=== PATIENT | female | born 1945 | race Caucasian/White ===

== ENCOUNTER 2023-06-28 09:29 | Inpatient (IN) ==
[2023-06-28] MEDS ORDERED: fentaNYL citrate PF 100 MCG/2 ML VIAL IV STA (09:50)
--- NOTE | 2023-06-28 09:51 | Emergency Department Note ---
Impression & Plan Chest pain, Lung cancer, Uncontrolled pain ED Provider Note HISTORY OF PRESENT ILLNESS: Patient is a 78-year-old female presenting with chest pain. Patient reports she has had substernal chest discomfort since yesterday. Reports pain is intermittent in nature. Pain radiates into her left chest and into her left shoulder and down her left arm. Patient reports feeling short of breath. She took 200 mg of ibuprofen about 30 minutes prior to arrival, with minimal relief in symptoms. Denies any history of cardiac stents. She is on Eliquis daily. Reports a history of blood clots and lung cancer. Denies any recent cough or fevers. She is currently on chemotherapy for her lung cancer. ROS: as above PHYSICAL EXAM: Constitutional: Patient appears in no acute distress. HENT: Head: Normocephalic and atraumatic. Eyes: EOMI, PERRL Mouth/Throat: Mucous membranes moist. Neck: Trachea midline. Neck supple. Cardiovascular: RRR, No murmurs, rubs or gallops. Intact distal pulses. Pulmonary/Chest: No respiratory distress. Breath sounds clear and equal bilaterally. No wheezes or rales. Abdominal: Abdomen soft, no tenderness, rebound or guarding. Musculoskeletal: No edema, tenderness or deformity noted. Skin: Warm and dry. No rash, erythema, pallor or cyanosis Psychiatric: Appropriate mood and affect for situation. Neurological: Alert and keenly responsive. CN II-XII grossly intact, moving all extremities equally and fully. MDM: - Vitals signs stable. - History obtained via patient. Patient presents with chest wall pain. Patient reports she has had substernal and left-sided chest discomfort since yesterday. Pain is intermittent in nature. Pain radiates into her left shoulder and down her left arm. Reports feeling short of breath. She took ibuprofen prior to arrival. Denies any history of cardiac stents. She has a history of PEs and is on Eliquis. Denies any recent fevers. She is currently on chemotherapy for her lung cancer. - Chronic conditions affecting care: Pulmonary embolism (on eliquis); atrial fibrillation; non-small cell lung cancer - Differential diagnoses include, but are not limited to: Acute coronary syndrome; pulmonary embolism; dissection; tension pneumothorax; esophageal rupture; pneumonia - Order placed for continuous cardiac monitoring. At this time, monitor showed rate of 72 bpm with normal sinus rhythm, per my interpretation. - External medical records reviewed. Notes from patient's hematology office visit from 06/21/2023 was reviewed - EKG reviewed by myself showed normal sinus rhythm. Rate 95 bpm. QTc 419. No acute ischemic changes. - Laboratory workup interpreted by myself showed normal WBC; normal troponin; h yponatremia (Na 128 - chronic for patient); normal lipase - Repeat troponin WNL - CXR shows left apical mass versus pneumonia, per my interpretation. Radiology notes that it could be pneumonia or could be a masslike lesion. Recommended CT scan - Patient given 50 mcg IV fentanyl in ER. On reassessment, she is still having left chest pain. Given an additional 50 mcg IV fentanyl - CTA chest 7.4 x 4.6 cm enhancing irregular left apical pulmonary mass consistent with pulmonary lung malignancy with chest wall extension and bony erosion of posterior left second rib. - Discussed case with oncologist on-call, Dr. Oconnell. He stated the patient could be sent home with oral pain control if her pain could get under control in the ER and they could discuss radiation therapy as an outpatient. However, on reassessment the patient is still complaining of left-sided chest wall pain. On discussion with the patient and her daughter, they would feel more comfortable with admission to the hospital overnight for further pain management and discussion with hematology/oncology in the morning. - UA negative for infection - Discussion was had with certified social workers in health care about patient's case and need for admission. - Hospitalist consulted for admission - Patient admitted to [facility] Hospitalist service for further evaluation and management. ASSESSMENT AND PLAN: Diagnosis: Left chest wall pain; lung cancer; uncontrolled pain Plan: admit Past Med/Surg History Social History Smoking Status: Former smoker Feels Safe at Home: Yes Allergies Allergies Allergy/AdvReac Type Severity Reaction Status Date / Time No Known Allergies Allergy Verified 06/28/23 16:24 Home Meds Home Medications Medication Instructions Recorded Confirmed apixaban 5 mg tablet (Eliquis) 5 mg PO BID 06/28/23 06/28/23 cholecalciferol (vitamin D3) 25 0 mcg PO DAILY 06/28/23 06/28/23 mcg (1,000 unit) capsule (Vitamin D3) cyanocobalamin (vitamin B-12) 0 mcg PO DAILY 06/28/23 06/28/23 1,000 mcg tablet (Vitamin B-12) famotidine 20 mg tablet 20 mg PO BID PRN Gi Upset 06/28/23 06/28/23 ibuprofen 200 mg tablet 200 mg PO DIRECTED PRN Pain 06/28/23 06/28/23 prednisone 10 mg tablet 10 mg PO DAILY 06/28/23 06/28/23 sotorasib 120 mg tablet (Lumakras) 480 mg PO QAM 06/28/23 06/28/23 Results & Data (ED) Vital Signs Vital Signs - 24 hr 06/28/23 09:32 06/28/23 10:24 06/28/23 10:30 Temperature 36.2 C L Temperature Source Temporal Artery Scan Pulse Rate 99 H 77 74 Pulse Rate [Apical] Pulse Rhythm [Apical] Respiratory Rate 20 19 Respiratory Effort / Characteristics Non-Labored Respiratory Depth Normal Blood Pressure 131/76 117/69 Blood Pressure [Right Arm] Blood Pressure Mean 94 85 Blood Pressure Mean [Right Arm] Pulse Oximetry 100 98 Oxygen Delivery Method Room Air Room Air Sepsis Recent Fever Within 48 Hours No Sepsis New/Unexplained Change in Mental Status N/A Sepsis Action Taken by Nursing No Action Required 06/28/23 12:53 06/28/23 13:00 06/28/23 13:00 Temperature Temperature Source Pulse Rate 73 Pulse Rate [Apical] 72 Pulse Rhythm [Apical] Regular Respiratory Rate 16 17 Respiratory Effort / Characteristics Non-Labored Respiratory Depth Normal Blood Pressure 118/69 Blood Pressure [Right Arm] 134/70 Blood Pressure Mean 80 Blood Pressure Mean [Right Arm] 91 Pulse Oximetry 99 99 Oxygen Delivery Method Room Air Sepsis Recent Fever Within 48 Hours Sepsis New/Unexplained Change in Mental Status Sepsis Action Taken by Nursing 06/28/23 13:30 06/28/23 13:30 06/28/23 14:28 Temperature Temperature Source Pulse Rate 72 72 Pulse Rate [Apical] Pulse Rhythm [Apical] Respiratory Rate 18 Respiratory Effort / Characteristics Respiratory Depth Blood Pressure 129/69 Blood Pressure [Right Arm] Blood Pressure Mean 103 Blood Pressure Mean [Right Arm] Pulse Oximetry 98 Oxygen Delivery Method Room Air Sepsis Recent Fever Within 48 Hours Sepsis New/Unexplained Change in Mental Status Sepsis Action Taken by Nursing 06/28/23 16:08 Temperature Temperature Source Pulse Rate Pulse Rate [Apical] 83 Pulse Rhythm [Apical] Regular Respiratory Rate 16 Respiratory Effort / Characteristics Non-Labored Respiratory Depth Normal Blood Pressure Blood Pressure [Right Arm] 124/72 Blood Pressure Mean Blood Pressure Mean [Right Arm] 89 Pulse Oximetry 99 Oxygen Delivery Method Room Air Sepsis Recent Fever Within 48 Hours Sepsis New/Unexplained Change in Mental Status Sepsis Action Taken by Nursing Laboratory Data 06/28/23 10:02 06/28/23 10:02 Lab Results 06/28/23 06/28/23 06/28/23 Range/Units 10:02 10:02 12:16 WBC 10.45 (4.8-10.8) K/ul RBC 3.99 L (4.20-5.40) M/uL Hgb 10.8 L (12.0-16.0) g/dl Hct 33.3 L (37.0-47.0) % MCV 83.5 (80.0-100.0) fL MCH 27.1 (25.0-34.0) pg MCHC 32.4 (32.0-36.0) g/dL RDW Std Deviation 53.1 H (36.4-46.3) fL RDW Coeff of Rivka 17.2 H (11.5-14.5) % Plt Count 442 H (130-400) K/uL MPV 9.8 (9.4-12.4) fL Immature Gran % (Auto) 0.5 % Neut % (Auto) 72.6 % Lymph % (Auto) 11.9 % [place] % (Auto) 13.5 % Eos % (Auto) 1.2 % Baso % (Auto) 0.3 % Neut # (Auto) 7.59 H (1.40-6.50) K/uL Lymph # (Auto) 1.24 (1.20-3.40) K/uL [place] # (Auto) 1.41 H (0.11-0.59) K/uL Eos # (Auto) 0.13 (0.00-0.50) K/uL Baso # (Auto) 0.03 (0.00-0.20) K/uL Immature Gran # (Auto) 0.05 (0.01-0.20) K/uL Sodium 128 L (136-145) mmol/L Potassium 3.7 (3.5-5.1) mmol/L Chloride 94 L (98-107) mmol/L Carbon Dioxide 25 (21-32) mmol/L Anion Gap 9 (3-11) BUN 16 (6-23) mg/dl Creatinine 0.81 (0.6-1.2) mg/dl Est Cr Clr Drug Dosing 45.4 ml/min Est GFR ( Amer) 80.6 ml/min Est GFR (Non-Af Amer) 69.6 ml/min BUN/Creatinine Ratio 19.8 (10-20) Glucose 84 (70-99(Fasting)) mg/dl Calcium 9.7 (8.6-10.3) mg/dl Total Bilirubin 0.7 (0.2-1.0) mg/dl AST 13 (13-39) U/L ALT 10 (7-52) U/L Alkaline Phosphatase 120 H (34-104) U/L Troponin I High Sens 8.6 6.9 (0-14) pg/ml Total Protein 8.5 H (6.0-8.3) gm/dl Albumin 3.7 (3.4-5.0) gm/dl Globulin 4.8 H (2.5-4.0) gm/dl Albumin/Globulin Ratio 0.8 L (0.9-2) Lipase 47 (11-82) U/L Urine Color Urine Appearance (Clear) Urine pH (4.5-7.5) Ur Specific [place] (1.000-1.030) Urine Protein (Negative) Urine Glucose (UA) (Negative) Urine Ketones (Negative) Urine Blood (Negative) Urine Nitrite (Negative) Urine Bilirubin (Negative) Urine Urobilinogen (Negative) Ur Leukocyte Esterase (Negative) Urine WBC (Auto) (0-5) /hpf Urine RBC (Auto) (0-4) /hpf U Hyaline Cast (Auto) (0-5) /lpf U Epithel Cells (Auto) (0-5) /lpf Urine Bacteria (Auto) (Negative) 06/28/23 Range/Units 14:20 WBC (4.8-10.8) K/ul RBC (4.20-5.40) M/uL Hgb (12.0-16.0) g/dl Hct (37.0-47.0) % MCV (80.0-100.0) fL MCH (25.0-34.0) pg MCHC (32.0-36.0) g/dL RDW Std Deviation (36.4-46.3) fL RDW Coeff of [place]ka (11.5-14.5) % Plt Count (130-400) K/uL MPV (9.4-12.4) fL Immature Gran % (Auto) % Neut % (Auto) % Lymph % (Auto) % [place] % (Auto) % Eos % (Auto) % Baso % (Auto) % Neut # (Auto) (1.40-6.50) K/uL Lymph # (Auto) (1.20-3.40) K/uL [place] # (Auto) (0.11-0.59) K/uL Eos # (Auto) (0.00-0.50) K/uL Baso # (Auto) (0.00-0.20) K/uL Immature Gran # (Auto) (0.01-0.20) K/uL Sodium (136-145) mmol/L Potassium (3.5-5.1) mmol/L Chloride (98-107) mmol/L Carbon Dioxide (21-32) mmol/L Anion Gap (3-11) BUN (6-23) mg/dl Creatinine (0.6-1.2) mg/dl Est Cr Clr Drug Dosing ml/min Est GFR ( Amer) ml/min Est GFR (Non-Af Amer) ml/min BUN/Creatinine Ratio (10-20) Glucose (70-99(Fasting)) mg/dl Calcium (8.6-10.3) mg/dl Total Bilirubin (0.2-1.0) mg/dl AST (13-39) U/L ALT (7-52) U/L Alkaline Phosphatase (34-104) U/L Troponin I High Sens (0-14) pg/ml Total Protein (6.0-8.3) gm/dl Albumin (3.4-5.0) gm/dl Globulin (2.5-4.0) gm/dl Albumin/Globulin Ratio (0.9-2) Lipase (11-82) U/L Urine Color Yellow Urine Appearance Clear (Clear) Urine pH 6.5 (4.5-7.5) Ur Specific [place] 1.007 (1.000-1.030) Urine Protein Negative (Negative) Urine Glucose (UA) Negative (Negative) Urine Ketones Negative (Negative) Urine Blood Trace H (Negative) Urine Nitrite Negative (Negative) Urine Bilirubin Negative (Negative) Urine Urobilinogen Negative (Negative) Ur Leukocyte Esterase Negative (Negative) Urine WBC (Auto) 1-5 (0-5) /hpf Urine RBC (Auto) 0-4 (0-4) /hpf U Hyaline Cast (Auto) 0 (0-5) /lpf U Epithel Cells (Auto) 5-10 H (0-5) /lpf Urine Bacteria (Auto) Negative (Negative) Administered Medications Discontinued Medications Fentanyl Citrate (Fentanyl Citrate Pf 100 Mcg/2 Ml Vial) 50 mcg IV NOW STA Stop: 06/28/23 09:51 Last Admin: 06/28/23 10:11 Dose: 50 mcg Documented By: SAW Fentanyl Citrate (Fentanyl Citrate Pf 100 Mcg/2 Ml Vial) 50 mcg IV NOW STA Stop: 06/28/23 13:59 Last Admin: 06/28/23 15:04 Dose: 50 mcg Documented By: ELLI Ioversol (Optiray 320 100ml) 90 ml IV ONCE ONE Stop: 06/28/23 15:53 Last Admin: 06/28/23 16:00 Dose: 90 ml Documented By: CHANTEL Oxycodone HCl (Oxycodone Ir Home Pack) 1 each PO UD ONE Stop: 06/28/23 15:11 Last Admin: 06/28/23 15:28 Dose: 1 each Documented By: ELLI Imaging Data Radiologist's Impression: Chest X-Ray 06/28/23 09:50 XR chest 1V portable CLINICAL HISTORY: Chest pain, nonspecific COMPARISON STUDY: No previous studies for comparison. FINDINGS: Lung volumes are normal. There is a 6.1 x 4.7 cm left apical airspace opacity. There is no pneumothorax or pleural effusion. Cardiac size is normal. Mediastinal contours are normal. There is no evidence for pulmonary edema. IMPRESSION: 6.1 x 4.7 cm left apical airspace opacity. This favors pneumonia. However, an underlying neoplasm cannot be excluded and a CT of the chest with IV contrast is recommended for further evaluation. ACT 112: Positive. There are findings on this exam that require communication between the performing entity and the patient following Patient Test Result Information Act ([place] Act 112) guidelines. Electronically signed by: José Miguel Sanchez M.D. 06/28/2023 10:[address] 06/28/23 15:28 CT OF THE CHEST WITH IV CONTRAST CLINICAL HISTORY: Left-sided chest pain. Lung cancer. Abnormal chest radiograph. COMPARISON STUDY: Chest radiograph performed earlier today. TECHNIQUE: Following IV administration of 90 mL of Optiray, helical axial images of the chest were obtained. Sagittal and coronal reconstructions were viewed as well as maximal intensity projections on an independent 3-D workstation. Automated exposure control was utilized for the study. A dose lowering technique was utilized adhering to the principles of ALARA. CT DOSE: 257.75 mGy.cm FINDINGS: No pulmonary emboli are identified. There is no thoracic aortic dissection. There is no significant pericardial effusion. Note is made of an irregular heterogeneously enhancing 7.4 x 4.6 cm left apical mass which extends into the chest wall. There is subtle bony erosion of the posterior left second rib. Extension into the interspace between the first and second ribs is noted. There is extensive associated lower cervical and thoracic lymphadenopathy. This includes a 1.9 x 1.3 cm left supraclavicular lymph node on image 42 of 241, a 1.6 x 1.3 cm right level 4 cervical node on image 32, matted left axillary lymphadenopathy, including a 5.4 x 2 cm left axillary node, a 2.5 x 2.3 cm right paratracheal node and a 3.4 x 2.8 cm left hilar node. A trace left pleural effusion is present. There is emphysema. No consolidation is identified to suggest pneumonia. There is no pneumothorax. IMPRESSION: 1. 7.4 x 4.6 cm heterogeneously enhancing irregular left apical pulmonary mass consistent with primary lung malignancy with chest wall extension and subtle a ssociated bony erosion of the posterior left second rib. 2. Extensive lower cervical and thoracic lymphadenopathy consistent with geoff spread of disease. 3. No pulmonary emboli identified. 4. Trace left pleural effusion. ACT 112: Positive. There are findings on this exam that require communication between the performing entity and the patient following Patient Test Result Information Act ([place] Act 112) guidelines. Electronically signed by: José Miguel Sanchez M.D. 06/28/2023 4:21 PM Discharge Plan Visit Data Chief Complaint: Chest Pain Stated Complaint: ARM TO CHEST PAIN ED Provider: Araseli Escudero Discharge Problem: Chest pain, Lung cancer, Uncontrolled pain Patient Disposition: Admitted As Inpatient Forms [facility] Prescriptions: No Action prednisone 10 mg Tablet 10 mg PO DAILY Rx Instructions: PER PT "STOPPED TAKING WHEN CHEMO STOPPED, NOT SURE SHOULD CONTINUE, NEED TO CHECK WITH MD". cyanocobalamin (vitamin B-12) [Vitamin B-12] 1,000 mcg Tablet 0 mcg PO DAILY Rx Instructions: PT UNSURE OF STRENGTH famotidine 20 mg tablet 20 mg PO BID PRN (Reason: Gi Upset) ibuprofen 200 mg Tablet 200 mg PO DIRECTED PRN (Reason: Pain) cholecalciferol (vitamin D3) [Vitamin D3] 25 mcg (1,000 unit) Capsule 0 mcg PO DAILY Rx Instructions: PT UNSURE OF STRENGTH Eliquis 5 mg tablet 5 mg PO BID Lumakras 120 mg tablet 480 mg PO QAM Referrals Referrals: PCP,NO [Physician] -
--- NOTE | 2023-06-28 10:18 | XRay Report ---
XR chest 1V portable CLINICAL HISTORY: Chest pain, nonspecific COMPARISON STUDY: No previous studies for comparison. FINDINGS: Lung volumes are normal. There is a 6.1 x 4.7 cm left apical airspace opacity. There is no pneumothorax or pleural effusion. Cardiac size is normal. Mediastinal contours are normal. There is n o evidence for pulmonary edema. IMPRESSION: 6.1 x 4.7 cm left apical airspace opacity. This favors pneumonia. However, an underlying neoplasm cannot be excluded and a CT of the chest with IV contrast is recommended for further evalua tion. ACT 112: Positive. There are findings on this exam that require communication between the performing entity and the patient following Patient Test Result Information Act ([place] Act 112) guidelines. Electronically signed by: José Miguel Sanchez M.D. 06/28/2023 10:16 AM
[2023-06-28 11:11] LABS: Basophils # (auto) 0.03 K/uL (0.00-0.20); Basophils % (auto) 0.3 %; Eosinophils # (auto) 0.13 K/uL (0.00-0.50); Eosinophils % (auto) 1.2 %; Hematocrit (blood only) 33.3 % (37.0-47.0); Hemoglobin 10.8 g/dl (12.0-16.0); Immature Granulocytes # (auto) 0.05 K/uL (0.01-0.20); Immature Granulocytes % (auto) 0.5 %; Lymphocytes # (auto) 1.24 K/uL (1.20-3.40); Lymphocytes % (auto) 11.9 %; Mean Corpuscular Hemoglobin 27.1 pg (25.0-34.0); Mean Corpuscular Hgb Conc 32.4 g/dL (32.0-36.0); Mean Corpuscular Volume 83.5 fL (80.0-100.0); Mean Platelet Volume 9.8 fL (9.4-12.4); Monocytes # (auto) 1.41 K/uL (0.11-0.59); Monocytes % (auto) 13.5 %; Neutrophils # (auto) 7.59 K/uL (1.40-6.50); Neutrophils % (auto) 72.6 %; Platelet Count 442 K/uL (130-400); RDW Coefficient of Variation 17.2 % (11.5-14.5); RDW Standard Deviation 53.1 fL (36.4-46.3); Red Blood Count 3.99 M/uL (4.20-5.40); White Blood Count 10.45 K/ul (4.8-10.8)
[2023-06-28 11:24] LABS: Albumin Globulin Ratio 0.8 (0.9-2); Albumin Level 3.7 gm/dl (3.4-5.0); BUN Creatinine Ratio 19.8 (10-20); Bilirubin,Total 0.7 mg/dl (0.2-1.0); Calcium 9.7 mg/dl (8.6-10.3); Creatinine Clr Calc Pharmacy 45.4 ml/min; Est GFR (African American) 80.6 ml/min; Est GFR (Non-African American) 69.6 ml/min; Globulin 4.8 gm/dl (2.5-4.0); Potassium 3.7 mmol/L (3.5-5.1); Total Protein 8.5 gm/dl (6.0-8.3)
[2023-06-28 11:30] LABS: Troponin I High Sensitivity 8.6 pg/ml (0-14)
[2023-06-28] MEDS: fentaNYL citrate PF 100 MCG/2 ML VIAL IV STA ×2 (14:21→15:04)
[2023-06-28 15:16] LABS: Appearance Urine Clear (Clear); Bacteria Urine Automated Negative (Negative); Bilirubin Urine Negative (Negative); Blood Urine Trace (Negative); Cast Urine Automated 0 /lpf (0-5); Color Urine Yellow; Glucose Urine UA Negative (Negative); Ketones Urine Negative (Negative); Leukocyte Esterase Urine Negative (Negative); Nitrite Urine Negative (Negative); Protein Urine Negative (Negative); RBC Urine Automated 0-4 /hpf (0-4); Specific Gravity Urine 1.007 (1.000-1.030); Urobilinogen Urine Negative (Negative); pH Urine 6.5 (4.5-7.5)
[2023-06-28] MEDS: oxyCODONE IR HOME PACK PO ONE ×2 (15:28→18:01)
[2023-06-28] MEDS ORDERED: OPTIRAY 320 100ml IV ONE (15:52)
--- NOTE | 2023-06-28 16:23 | CT Scan Report ---
CT OF THE CHEST WITH IV CONTRAST CLINICAL HISTORY: Left-sided chest pain. Lung cancer. Abnormal chest radiograph. COMPARISON STUDY: Chest radiograph performed earlier today. TECHNIQUE: Following IV administration of 90 mL of Optiray, helical axial images of the chest were o btained. Sagittal and coronal reconstructions were viewed as well as maximal intensity projections o n an independent 3-D workstation. Automated exposure control was utilized for the study. A dose low ering technique was utilized adhering to the principles of ALARA. CT DOSE: 257.75 mGy.cm FINDINGS: No pulmonary emboli are identified. There is no thoracic aortic dissection. There is no si gnificant pericardial effusion. Note is made of an irregular heterogeneously enhancing 7.4 x 4.6 cm l eft apical mass which extends into the chest wall. There is subtle bony erosion of the posterior left second rib. Extension into the interspace between the first and second ribs is noted. There is exten sive associated lower cervical and thoracic lymphadenopathy. This includes a 1.9 x 1.3 cm left suprac lavicular lymph node on image 42 of 241, a 1.6 x 1.3 cm right level 4 cervical node on image 32, rayshawn ed left axillary lymphadenopathy, including a 5.4 x 2 cm left axillary node, a 2.5 x 2.3 cm right par atracheal node and a 3.4 x 2.8 cm left hilar node. A trace left pleural effusion is present. There is emphysema. No consolidation is identified to suggest pneumonia. There is no pneumothorax. IMPRESSION: 1. 7.4 x 4.6 cm heterogeneously enhancing irregular left apical pulmonary mass consistent with primar y lung malignancy with chest wall extension and subtle associated bony erosion of the posterior left second rib. 2. Extensive lower cervical and thoracic lymphadenopathy consistent with geoff spread of disease. 3. No pulmonary emboli identified. 4. Trace left pleural effusion. ACT 112: Positive. There are findings on this exam that require communication between the performing entity and the patient following Patient Test Result Information Act ([place] Act 112) guidelines. Electronically signed by: José Miguel Sanchez M.D. 06/28/2023 4:21 PM
--- NOTE | 2023-06-28 18:30 | History & Physical Report ---
Date of Service June 28, 2023 Assessment & Plan (1) Non-small cell cancer of left lung: (2) Chest pain: Plan: Patient presents to the ED with left chest and axilla pain for several weeks. History of non-small cell carcinoma of the lung. Lab work shows normocytic anemia with hemoglobin of 10.8; similar to her baseline. Chest x-ray done in the ED personally reviewed; 6.1 into 4.7 cm left apical air opacity. CT chest with contrast reviewed personally; no PE. 7.4 x 4.6 cm heterogeneously enhancing irregular left apical pulmonary mass consistent with primary lung malignancy with chest wall extension and subtle associated bony erosion of the posterior left second rib. Last PET scan done on March 29, 2023; reported to have 63.0 x 42.4 mm sagittal by 49.7 mm transverse Admitted for pain control; Tylenol for mild pain, oxycodone for moderate pain and morphine for severe pain Discussed with patient's daughter over the phone; she would like to have PET scan done earlier than scheduled currently. (3) Hyponatremia: Plan: Admitting sodium of 128. History of chronic hyponatremia. Send urine osmolarity, urine electrolytes. Fluid restriction of 1500 cc. Daily BMP Plan Other conditions; History of PE -continue on Eliquis. Non-small cell carcinoma of lung -continue on sotorasib. DNR/DNI DVT prophylaxis Eliquis Time spent evaluating patient, direct bedside care, chart review, placing orders, interpretation of diagnostic studies, discussion with consultants, patient, and family members, as well as other required patient management activities is 75 minutes. Please note the above document was generated using voice recognition software. It may contain grammatical, syntax or spelling errors. Any formal questions or concerns about the content, text or information contained within the body of this dictation should be directly addressed to the provider for clarification History of Present Illness Chief Complaint: Chest pain for 2 weeks. Primary Care Provider: Elliot Culp History obtained from interview with the patient and chart review. Past medical history of PE on Eliquis, non-small cell carcinoma of the lung on Sotorasib Patient presents to the ED with left chest and axilla pain for several weeks. Patient reports that she has been dealing with pain for several weeks; it has limited her ability to sleep. The pain is nonradiating, dull aching nature, does not increase with inspiration or palpation. Patient denies shortness of breath, headache, fever, chills or cough. Patient has a history of non-small cell carcinoma of the lung. Patient follows up with Dr. Bray. She is currently on Sotorasib. Other relevant medical history is pulmonary embolism for which she is on Eliquis. On presentation to the ED, she was normotensive, afebrile and saturating well on room air. Lab work shows normocytic anemia with hemoglobin of 10.8; similar to her baseline. Her serum sodium is 128; similar to her baseline. Chest x-ray done in the ED personally reviewed; 6.1 into 4.7 cm left apical air opacity. CT chest with contrast reviewed personally; no PE. 7.4 x 4.6 cm heterogeneously enhancing irregular left apical pulmonary mass consistent with primary lung malignancy with chest wall extension and subtle associated bony erosion of the posterior left second rib. Her last Last PET scan done on March 29, 2023; reported to have 63.0 x 42.4 mm sagittal by 49.7 mm transverse Patient to be admitted to the hospital for severe intractable pain and mild hyponatremia. 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 Social history; former smoker with 0.75 packs/day for 52 years. Allergies Allergy/AdvReac Type Severity Reaction Status Date / Time No Known Allergies Allergy Verified 06/28/23 16:24 Home Medications Medication Instructions Recorded Confirmed Type apixaban 5 mg tablet (Eliquis) 5 mg PO BID 06/28/23 06/28/23 History cholecalciferol (vitamin D3) 25 0 mcg PO DAILY 06/28/23 06/28/23 History mcg (1,000 unit) capsule (Vitamin D3) cyanocobalamin (vitamin B-12) 0 mcg PO DAILY 06/28/23 06/28/23 History 1,000 mcg tablet (Vitamin B-12) famotidine 20 mg tablet 20 mg PO BID PRN Gi Upset 06/28/23 06/28/23 History ibuprofen 200 mg tablet 200 mg PO DIRECTED PRN Pain 06/28/23 06/28/23 History prednisone 10 mg tablet 10 mg PO DAILY 06/28/23 06/28/23 History sotorasib 120 mg tablet (Lumakras) 480 mg PO QAM 06/28/23 06/28/23 History Past Med/Surg History Medical History (Updated 06/28/23 @ 18:23 by Ian Perkins MD) Pulmonary embolism Surgical History (Updated 06/28/23 @ 18:21 by Ian Perkins MD) History of hip surgery Social History Smoking Status: Former smoker Feels Safe at Home: Yes Review of Systems 2 Review of Systems: All systems reviewed & are unremarkable except as noted in Subjective Physical Exam Physical Exam: Constitutional: WD/WN, vitals as above, NAD, sitting up in bed, pleasant, conversing easily Respiratory: Decreased breath sound in left upper lung field. No crackles or wheezes heard. Axillary lymph node palpated. Cardiovascular: RRR, no murmur, no edema Vessels: no JVD or carotid bruit Chest: normal inspection of chest. No tenderness. Abdomen: normal bowel sounds, soft, nontender, no hepatosplenomegaly Musculoskeletal: no cyanosis or clubbing, extremities motor strength 5/5 Skin: no rashes, warm and dry normal turgor Neurologic: Grossly intact s Psychiatric: A+Ox3, euthymic affect Results & Data Results & Data Vital Signs (Past 12 Hours) Vital Signs Temp Pulse Pulse Resp BP BP Pulse Ox 06/28/23 16:08 83 16 124/72 99 06/28/23 14:28 72 06/28/23 13:30 72 18 98 06/28/23 13:30 129/69 06/28/23 13:00 73 17 99 06/28/23 13:00 118/69 06/28/23 12:53 72 16 134/70 99 06/28/23 10:30 74 19 117/69 98 06/28/23 10:24 77 06/28/23 09:32 36.2 C L 99 H 20 131/76 100 O2 Del Method 06/28/23 16:08 Room Air 06/28/23 14:28 06/28/23 13:30 Room Air 06/28/23 13:30 06/28/23 13:00 06/28/23 13:00 06/28/23 12:53 Room Air 06/28/23 10:30 Room Air 06/28/23 10:24 06/28/23 09:32 Room Air Laboratory Results Laboratory Results WBC 10.45 K/ul (4.8-10.8) 06/28/23 10:02 RBC 3.99 M/uL (4.20-5.40) L 06/28/23 10:02 Hgb 10.8 g/dl (12.0-16.0) L 06/28/23 10:02 Hct 33.3 % (37.0-47.0) L 06/28/23 10:02 MCV 83.5 fL (80.0-100.0) 06/28/23 10:02 MCH 27.1 pg (25.0-34.0) 06/28/23 10:02 MCHC 32.4 g/dL (32.0-36.0) 06/28/23 10:02 RDW Std Deviation 53.1 fL (36.4-46.3) H 06/28/23 10:02 RDW Coeff of Rivka 17.2 % (11.5-14.5) H 06/28/23 10:02 Plt Count 442 K/uL (130-400) H 06/28/23 10:02 MPV 9.8 fL (9.4-12.4) 06/28/23 10:02 Immature Gran % (Auto) 0.5 % 06/28/23 10:02 Neut % (Auto) 72.6 % 06/28/23 10:02 Lymph % (Auto) 11.9 % 06/28/23 10:02 [place] % (Auto) 13.5 % 06/28/23 10:02 Eos % (Auto) 1.2 % 06/28/23 10:02 Baso % (Auto) 0.3 % 06/28/23 10:02 Neut # (Auto) 7.59 K/uL (1.40-6.50) H 06/28/23 10:02 Lymph # (Auto) 1.24 K/uL (1.20-3.40) 06/28/23 10:02 [place] # (Auto) 1.41 K/uL (0.11-0.59) H 06/28/23 10:02 Eos # (Auto) 0.13 K/uL (0.00-0.50) 06/28/23 10:02 Baso # (Auto) 0.03 K/uL (0.00-0.20) 06/28/23 10:02 Immature Gran # (Auto) 0.05 K/uL (0.01-0.20) 06/28/23 10:02 Sodium 128 mmol/L (136-145) L 06/28/23 10:02 Potassium 3.7 mmol/L (3.5-5.1) 06/28/23 10:02 Chloride 94 mmol/L (98-107) L 06/28/23 10:02 Carbon Dioxide 25 mmol/L (21-32) 06/28/23 10:02 Anion Gap 9 (3-11) 06/28/23 10:02 BUN 16 mg/dl (6-23) 06/28/23 10:02 Creatinine 0.81 mg/dl (0.6-1.2) 06/28/23 10:02 Est Cr Clr Drug Dosing 45.4 ml/min 06/28/23 10:02 Est GFR ( Amer) 80.6 ml/min 06/28/23 10:02 Est GFR (Non-Af Amer) 69.6 ml/min 06/28/23 10:02 BUN/Creatinine Ratio 19.8 (10-20) 06/28/23 10:02 Glucose 84 mg/dl (70-99(Fasting)) 06/28/23 10:02 Calcium 9.7 mg/dl (8.6-10.3) 06/28/23 10:02 Total Bilirubin 0.7 mg/dl (0.2-1.0) 06/28/23 10:02 AST 13 U/L (13-39) 06/28/23 10:02 ALT 10 U/L (7-52) 06/28/23 10:02 Alkaline Phosphatase 120 U/L (34-104) H 06/28/23 10:02 Troponin I High Sens 6.9 pg/ml (0-14) 06/28/23 12:16 Total Protein 8.5 gm/dl (6.0-8.3) H 06/28/23 10:02 Albumin 3.7 gm/dl (3.4-5.0) 06/28/23 10:02 Globulin 4.8 gm/dl (2.5-4.0) H 06/28/23 10:02 Albumin/Globulin Ratio 0.8 (0.9-2) L 06/28/23 10:02 Lipase 47 U/L (11-82) 06/28/23 10:02 Urine Color Yellow 06/28/23 14:20 Urine Appearance Clear (Clear) 06/28/23 14:20 Urine pH 6.5 (4.5-7.5) 06/28/23 14:20 Ur Specific [place] 1.007 (1.000-1.030) 06/28/23 14:20 Urine Protein Negative (Negative) 06/28/23 14:20 Urine Glucose (UA) Negative (Negative) 06/28/23 14:20 Urine Ketones Negative (Negative) 06/28/23 14:20 Urine Blood Trace (Negative) H 06/28/23 14:20 Urine Nitrite Negative (Negative) 06/28/23 14:20 Urine Bilirubin Negative (Negative) 06/28/23 14:20 Urine Urobilinogen Negative (Negative) 06/28/23 14:20 Ur Leukocyte Esterase Negative (Negative) 06/28/23 14:20 Urine WBC (Auto) 1-5 /hpf (0-5) 06/28/23 14:20 Urine RBC (Auto) 0-4 /hpf (0-4) 06/28/23 14:20 U Hyaline Cast (Auto) 0 /lpf (0-5) 06/28/23 14:20 U Epithel Cells (Auto) 5-10 /lpf (0-5) H 06/28/23 14:20 Urine Bacteria (Auto) Negative (Negative) 06/28/23 14:20 Impressions Chest X-Ray 06/28/23 09:50 XR chest 1V portable CLINICAL HISTORY: Chest pain, nonspecific COMPARISON STUDY: No previous studies for comparison. FINDINGS: Lung volumes are normal. There is a 6.1 x 4.7 cm left apical airspace opacity. There is no pneumothorax or pleural effusion. Cardiac size is normal. Mediastinal contours are normal. There is no evidence for pulmonary edema. IMPRESSION: 6.1 x 4.7 cm left apical airspace opacity. This favors pneumonia. However, an underlying neoplasm cannot be excluded and a CT of the chest with IV contrast is recommended for further evaluation. ACT 112: Positive. There are findings on this exam that require communication between the performing entity and the patient following Patient Test Result Information Act ([place] Act 112) guidelines. Electronically signed by: José Miguel Sanchez M.D. 06/28/2023 10:[address] 06/28/23 15:28 CT OF THE CHEST WITH IV CONTRAST CLINICAL HISTORY: Left-sided chest pain. Lung cancer. Abnormal chest radiograph. COMPARISON STUDY: Chest radiograph performed earlier today. TECHNIQUE: Following IV administration of 90 mL of Optiray, helical axial images of the chest were obtained. Sagittal and coronal reconstructions were viewed as well as maximal intensity projections on an independent 3-D workstation. Automated exposure control was utilized for the study. A dose lowering technique was utilized adhering to the principles of ALARA. CT DOSE: 257.75 mGy.cm FINDINGS: No pulmonary emboli are identified. There is no thoracic aortic dissection. There is no significant pericardial effusion. Note is made of an irregular heterogeneously enhancing 7.4 x 4.6 cm left apical mass which extends into the chest wall. There is subtle bony erosion of the posterior left second rib. Extension into the interspace between the first and second ribs is noted. There is extensive associated lower cervical and thoracic lymphadenopathy. This includes a 1.9 x 1.3 cm left supraclavicular lymph node on image 42 of 241, a 1.6 x 1.3 cm right level 4 cervical node on image 32, matted left axillary lymphadenopathy, including a 5.4 x 2 cm left axillary node, a 2.5 x 2.3 cm right paratracheal node and a 3.4 x 2.8 cm left hilar node. A trace left pleural effusion is present. There is emphysema. No consolidation is identified to suggest pneumonia. There is no pneumothorax. IMPRESSION: 1. 7.4 x 4.6 cm heterogeneously enhancing irregular left apical pulmonary mass consistent with primary lung malignancy with chest wall extension and subtle associated bony erosion of the posterior left second rib. 2. Extensive lower cervical and thoracic lymphadenopathy consistent with geoff spread of disease. 3. No pulmonary emboli identified. 4. Trace left pleural effusion. ACT 112: Positive. There are findings on this exam that require communication between the performing entity and the patient following Patient Test Result Information Act ([place] Act 112) guidelines. Electronically signed by: José Miguel Sanchez M.D. 06/28/2023 4:21 PM Code Status & VTE Plan VTE Prophylaxis Plan VTE Prophylaxis will be ordered: Yes
[2023-06-28] MEDS ORDERED: MoRPHine SULFATE 2 MG/ML CARP IV STA (20:21)
[2023-06-28] MEDS ORDERED: ONDANSETRON INJ 2 MG/ML 2 ML VIAL IV PRN (22:42)
[2023-06-28] MEDS ORDERED: ALUMINUM/MAGNESIUM SUSP 30 ML UDC PO PRN (22:42)
[2023-06-28] MEDS ORDERED: ZOLPIDEM TARTRATE 5 MG TAB PO PRN (22:42)
[2023-06-28] MEDS ORDERED: MoRPHine SULFATE 2 MG/ML CARP IV PRN (22:42)
[2023-06-28] MEDS ORDERED: FAMOTIDINE 20 MG TAB PO PRN (22:42)
[2023-06-28] MEDS ORDERED: ACETAMINOPHEN 325 MG TAB PO PRN (22:42)
[2023-06-28] MEDS: oxyCODONE HCL IR 5 MG TAB (IMMEDIATE RELEASE) PO PRN (23:05)
[2023-06-28 23:23] LABS: Creatinine Urine Random 105.2 mg/dl; Urine Potassium 33.7 mmol/L
[2023-06-28] MEDS: APIXABAN 5 MG TABLET PO SCH (23:41)
[2023-06-29] MEDS: oxyCODONE HCL IR 5 MG TAB (IMMEDIATE RELEASE) PO PRN ×5 (04:59→23:07)
[2023-06-29 08:01] LABS: Basophils # (auto) 0.02 K/uL (0.00-0.20); Basophils % (auto) 0.2 %; Eosinophils # (auto) 0.11 K/uL (0.00-0.50); Hematocrit (blood only) 30.2 % (37.0-47.0); Hemoglobin 9.6 g/dl (12.0-16.0); Immature Granulocytes # (auto) 0.06 K/uL (0.01-0.20); Immature Granulocytes % (auto) 0.6 %; Lymphocytes % (auto) 18.1 %; Mean Corpuscular Hemoglobin 26.5 pg (25.0-34.0); Mean Corpuscular Hgb Conc 31.8 g/dL (32.0-36.0); Mean Corpuscular Volume 83.4 fL (80.0-100.0); Mean Platelet Volume 9.3 fL (9.4-12.4); Monocytes # (auto) 1.34 K/uL (0.11-0.59); Monocytes % (auto) 12.8 %; Neutrophils # (auto) 7.07 K/uL (1.40-6.50); Neutrophils % (auto) 67.3 %; Platelet Count 383 K/uL (130-400); RDW Coefficient of Variation 17.1 % (11.5-14.5); RDW Standard Deviation 52.2 fL (36.4-46.3); Red Blood Count 3.62 M/uL (4.20-5.40)
[2023-06-29] MEDS: APIXABAN 5 MG TABLET PO SCH ×2 (08:22→21:55)
[2023-06-29] MEDS: predniSONE 10 MG TABLET PO SCH (08:23)
[2023-06-29] MEDS: CHOLECALCIFEROL 1,000 UNITS 25 MCG TAB PO SCH (08:23)
[2023-06-29] MEDS: CYANOCOBALAMIN (B-12) 500 MCG TABLET PO SCH (08:24)
[2023-06-29 08:29] LABS: Albumin Globulin Ratio 0.8 (0.9-2); Albumin Level 3.2 gm/dl (3.4-5.0); Bilirubin,Total 0.5 mg/dl (0.2-1.0); Calcium 9.2 mg/dl (8.6-10.3); Creatinine Clr Calc Pharmacy 45.2 ml/min; Est GFR (African American) 81.8 ml/min; Est GFR (Non-African American) 70.6 ml/min; Potassium 4.2 mmol/L (3.5-5.1); Total Protein 7.2 gm/dl (6.0-8.3)
[2023-06-29] MEDS ORDERED: [UNRECOGNIZED DRUG - OTHER] PO SCH (10:00)
--- NOTE | 2023-06-29 13:06 | Palliative Care Consultation ---
Date of Consultation June 29, 2023 Assessment & Plan (1) Uncontrolled pain: Her description is consistent with neuropathic pain. For adjuvant treatment, we discussed use of topical lidocaine patch which was ordered. Ideally, with constant pain, she would benefit from long acting opioid, however, she is opioid naive prior to admission. Would continue prn oxycodone for now and monitor. She would benefit from f/u with palliative care as an outpatient for ongoing pain management and support. Both she and her daughter are interested in this. With newly prescribed opioids, decreased po intake and decreased activity, she is high risk for constipation. Senna ordered daily for bowel prophylaxis. Disc ussed with Mrs. Sharif and her daughter that this can be adjusted as needed and she may refuse dose if desired. Discussed possible radiation oncology referral with Dr. Perkins. Will defer to Dr. Bray. (2) Palliative care encounter: I met with Mrs. Delaney and her daughter, Erin, at bedside. We discussed role of palliative care for symptom management, support and goals of care. We also clarified that palliative care can occur at any stage of her illness and discussed distinction from hospice care. Mrs. Delaney lives in [facility] but has been staying will her daughter during her illness. She tells me that gardening, her card club and interacting with friends and family bring quality and meaning to her life. Up until this week she has been doing some gardening and weeding at her daughters house. She notes that if she were no longer able to do these things, that would impact her decision on treatment plan. At this time, she very much wants to talk to Dr. Bray about what to expect and other possible treatment options. She is open to further treatment but does tell me that quality of life is more important to her than quantity. She is DNR/DNI. She tells me that if her heart or breathing stops, she would want to peacefully and naturally. She has not really identified any other treatments that she would definitely not want in her care. She has designated her daughter and son as her surrogate decision makers and is confident that they would make the right decisions on her behalf. She has talked with them about her wishes and Erin tells me that she is comfortable with making these decisions if needed. History of Present Illness Reason for Consultation: symptom management, goals of care Requesting Physician: Dr. Perkins Attending Physician: Ian Perkins MD History of Present Illness 78 yo lady with metastatic non small cell lung cancer diagnosed in February of this year. She is followed by Dr. Bray and has been on Sotorasib. She presented to ER with complaints of pressure pain in her chest and pain in her left axilla. The pain has been getting progressively worse and is interfering with her sleep and activities. Her daughter also notes that she has been eating less in the last week and been less active. CT on admission shows 7.4 x 4.6 cm left apical pulmonary mass with chest wall extension and subtle bony extensive to second rib. She is also noted to have extensive cervical, supraclavicular and thoracic lymphadenopathy with a palpable left axillary lymph node. She complains of co nstant, pressure type pain in her anterior chest which is not associated with dyspnea, nausea or diaphoresis. She also complains of constant burning pain in her left axilla radiating to her elbow. She had been using a heating pad for this at home with some relief. She had also been taking ibuprofen at home with only partial relief. Since admission, she has received IV morphine, IV fentanyl and oral oxycodone for pain and reports that all have been effective. SHe is taking 5mg oxycodone roughly every four hours and notes that it relieves the pain for about four hours. She does report some "labored breathing" but denies pain with breathing or ELIZABETH. She denies nausea or constipation. Allergies Allergy/AdvReac Type Severity Reaction Status Date / Time No Known Allergies Allergy Verified 06/28/23 16:24 Home Medications Medication Instructions Recorded Confirmed Type apixaban 5 mg tablet (Eliquis) 5 mg PO BID 06/28/23 06/28/23 History cholecalciferol (vitamin D3) 25 0 mcg PO DAILY 06/28/23 06/28/23 History mcg (1,000 unit) capsule (Vitamin D3) cyanocobalamin (vitamin B-12) 0 mcg PO DAILY 06/28/23 06/28/23 History 1,000 mcg tablet (Vitamin B-12) famotidine 20 mg tablet 20 mg PO BID PRN Gi Upset 06/28/23 06/28/23 History ibuprofen 200 mg tablet 200 mg PO DIRECTED PRN Pain 06/28/23 06/28/23 History prednisone 10 mg tablet 10 mg PO DAILY 06/28/23 06/28/23 History sotorasib 120 mg tablet (Lumakras) 480 mg PO QAM 06/28/23 06/28/23 History Patient History Medical History Pulmonary embolism Surgical History History of hip surgery Social History Smoking Status: Former smoker Hx Alcohol Use: Yes Alcohol type: wine Hx Substance Use: No Preferred Language: [place]ambican Communication Ability: Effective 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 Beliefs That Will Affect Care: None Current Living Situation: Family Current Living Situation Comment: currently lives with daughter in 2 story house Other Information That Helps Us Care for You: No Feels Safe at Home: Yes Safety Concerns: Feels Safe At This Time Assistive Devices: None Review of Systems Review of Systems: ESAS Pain 2/3 Dyspnea 1/3 Nausea 0/3 Drowsiness 0/3 Anxiety 0/3 Physical Exam Constitutional: + frail appearing; no acute distress Respiratory: normal respiratory effort; no labored breathing Cardiovascular: Extremities: no pedal edema Gastrointestinal (Abdomen): LBM 06/28/23 Musculoskeletal: Extremities: + muscle atrophy Neurologic: Speech / Cognition: normal cognition Genitourinary: Continent Results & Data Vital Signs (Past 12 Hours) Vital Signs Temp Pulse Resp BP Pulse Ox O2 Del Method 06/29/23 10:00 Room Air 06/29/23 07:14 98.1 F 89 18 97/60 L 95 Room Air PG Care Time/CCT Total # of Minutes Spent Total Time Spent: 85 Total Time Spent with Patient: Total time spent is greater than 50% in coordination of care (as documented) at patient's floor/unit and/or counseling patient: [id number] symptom management, goals of care, code status, surrogate decision maker, patient and family education and support, coordination of care. Coding Level of Care Code 48398 INT INP/OBS CARE 3/75MIN Diagnoses Uncontrolled pain R52 Palliative care encounter Z51.5
--- NOTE | 2023-06-29 16:17 | Hospitalist Progress Note ---
Date of Service June 29, 2023 Assessment & Plan (1) Non-small cell cancer of left lung: (2) Chest pain: Plan: Patient presents to the ED with left chest and axilla pain for several weeks. History of non-small cell carcinoma of the lung. Lab work shows normocytic anemia with hemoglobin of 10.8; similar to her baseline. Chest x-ray done in the ED personally reviewed; 6.1 into 4.7 cm left apical air opacity. CT chest with contrast reviewed personally; no PE. 7.4 x 4.6 cm heterogeneously enhancing irregular left apical pulmonary mass consistent with primary lung malignancy with chest wall extension and subtle associated bony erosion of the posterior left second rib. Last PET scan done on March 29, 2023; reported to have 63.0 x 42.4 mm sagittal by 49.7 mm transverse Admitted for pain control; PRN Tylenol for mild pain, oxycodone for moderate pain and morphine for severe pain Palliative care consulted today and recommended addition of lidocaine patch, dc on PRN oxycodone with bowel regimen and outpt follow-up Discussed CT chest results with Dr Bray, who reached out to patient and daughter personally PET scan to be moved to an earlier date (currently mid-month) Continue discussion of goals of care moving forward regarding treatment (3) Hyponatremia: Plan: Admitting sodium of 128 -> 127 today History of chronic hyponatremia Suspect SIADH; continue fluid restriction of 1200 cc Serum osm pending, daily BMP Plan Other conditions; History of PE -continue on Eliquis. Non-small cell carcinoma of lung -continue on sotorasib. DNR/DNI DVT prophylaxis Eliquis Admission and Anticipated Discharge Date Admission Date: June 28, 2023 Supervising Physician Co-Signing Physician Notes Patient seen and examined at bedside. Discussed with above provider. She reports improvement in the chest pain with oxycodone. Outpatient oncology informed about hospitalization. Will reach out to daughter and patient for further discussion. Palliative care saw the patient; lidocaine patch for pain control along with oxycodone. Possible DC in a.m. Subjective Seen and examined in 358-1. With daughter Erin at bedside. Patient is feeling that oxycodone improved pain of L chest wall extending into axilla but is due for next pain medication. Interested in palliative care consult to optimize cancer-related pain. Erin is requesting Dr. Bray calls to discuss growth of mass and overall prognosis. Had a lengthy discussion reviewing outpatient imaging, labwork, pain control and medications. No F/C, lightheadedness, CP, SOB, N/V, abdominal pain, dysuria, diarrhea or constipation. Review of Systems Review of Systems: At least ten systems reviewed and negative except as noted in the HPI. Physical Exam Physical Exam: Gen: WD/WN, NAD, lying in bed, A&Ox3 HEENT: Normocephalic, atraumatic, conjunctivae moist, sclerae anicteric, mucous membranes moist Lung: decreased breath sounds DEBBIE, no wheezes/rales/rhonchi. + L axillary lymph node palpated Heart: Regular rate, regular rhythm, no murmurs, rubs, or gallops Abdomen: Soft, NT, ND +BS x 4 Extremities: no edema Skin: Warm, no rash Results & Data Results & Data Vital Signs (Past 12 Hours) Vital Signs Temp Pulse Resp BP Pulse Ox O2 Del Method 06/29/23 14:15 36.8 C 78 16 134/73 99 Room Air 06/29/23 10:00 Room Air 06/29/23 07:14 36.7 C 89 18 97/60 L 95 Room Air Laboratory Results Short CBC 06/29/23 Range/Units 07:24 WBC 10.50 (4.8-10.8) K/ul Hgb 9.6 L (12.0-16.0) g/dl Hct 30.2 L (37.0-47.0) % Plt Count 383 (130-400) K/uL BMP 06/29/23 07:24 Sodium 127 L Potassium 4.2 Chloride 95 L Carbon Dioxide 25 BUN 16 Creatinine 0.80 Glucose 96 Calcium 9.2 Liver Function 06/29/23 Range/Units 07:24 Total Bilirubin 0.5 (0.2-1.0) mg/dl AST 11 L (13-39) U/L ALT 8 (7-52) U/L Alkaline Phosphatase 96 (34-104) U/L Albumin 3.2 L (3.4-5.0) gm/dl Diagnostic Findings Chest X-Ray 06/28/23 09:50 XR chest 1V portable CLINICAL HISTORY: Chest pain, nonspecific COMPARISON STUDY: No previous studies for comparison. FINDINGS: Lung volumes are normal. There is a 6.1 x 4.7 cm left apical airspace opacity. There is no pneumothorax or pleural effusion. Cardiac size is normal. Mediastinal contours are normal. There is no evidence for pulmonary edema. IMPRESSION: 6.1 x 4.7 cm left apical airspace opacity. This favors pneumonia. However, an underlying neoplasm cannot be excluded and a CT of the chest with IV contrast is recommended for further evaluation. ACT 112: Positive. There are findings on this exam that require communication between the performing entity and the patient following Patient Test Result Information Act ([place] Act 112) guidelines. Electronically signed by: José Miguel Sanchez M.D. 06/28/2023 10:[address] 06/28/23 15:28 CT OF THE CHEST WITH IV CONTRAST CLINICAL HISTORY: Left-sided chest pain. Lung cancer. Abnormal chest radiograph. COMPARISON STUDY: Chest radiograph performed earlier today. TECHNIQUE: Following IV administration of 90 mL of Optiray, helical axial images of the chest were obtained. Sagittal and coronal reconstructions were viewed as well as maximal intensity projections on an independent 3-D workstation. Automated exposure control was utilized for the study. A dose lowering technique was utilized adhering to the principles of ALARA. CT DOSE: 257.75 mGy.cm FINDINGS: No pulmonary emboli are identified. There is no thoracic aortic dissection. There is no significant pericardial effusion. Note is made of an irregular heterogeneously enhancing 7.4 x 4.6 cm left apical mass which extends into the chest wall. There is subtle bony erosion of the posterior left second rib. Extension into the interspace between the first and second ribs is noted. There is extensive associated lower cervical and thoracic lymphadenopathy. This includes a 1.9 x 1.3 cm left supraclavicular lymph node on image 42 of 241, a 1.6 x 1.3 cm right level 4 cervical node on image 32, matted left axillary lymphadenopathy, including a 5.4 x 2 cm left axillary node, a 2.5 x 2.3 cm right paratracheal node and a 3.4 x 2.8 cm left hilar node. A trace left pleural effusion is present. There is emphysema. No consolidation is identified to suggest pneumonia. There is no pneumothorax. IMPRESSION: 1. 7.4 x 4.6 cm heterogeneously enhancing irregular left apical pulmonary mass consistent with primary lung malignancy with chest wall extension and subtle associated bony erosion of the posterior left second rib. 2. Extensive lower cervical and thoracic lymphadenopathy consistent with geoff spread of disease. 3. No pulmonary emboli identified. 4. Trace left pleural effusion. ACT 112: Positive. There are findings on this exam that require communication between the performing entity and the patient following Patient Test Result Information Act ([place] Act 112) guidelines. Electronically signed by: José Miguel Sanchez M.D. 06/28/2023 4:21 PM
[2023-06-29] MEDS ORDERED: LIDOCAINE 5% 1 PATCH TD SCH (21:00)
[2023-06-30 06:39] LABS: Basophils # (auto) 0.04 K/uL (0.00-0.20); Basophils % (auto) 0.5 %; Eosinophils # (auto) 0.15 K/uL (0.00-0.50); Eosinophils % (auto) 1.7 %; Hematocrit (blood only) 30.2 % (37.0-47.0); Hemoglobin 9.9 g/dl (12.0-16.0); Immature Granulocytes # (auto) 0.03 K/uL (0.01-0.20); Immature Granulocytes % (auto) 0.3 %; Lymphocytes # (auto) 1.73 K/uL (1.20-3.40); Lymphocytes % (auto) 19.5 %; Mean Corpuscular Hgb Conc 32.8 g/dL (32.0-36.0); Mean Corpuscular Volume 82.5 fL (80.0-100.0); Mean Platelet Volume 9.3 fL (9.4-12.4); Monocytes # (auto) 1.19 K/uL (0.11-0.59); Monocytes % (auto) 13.4 %; Neutrophils # (auto) 5.71 K/uL (1.40-6.50); Neutrophils % (auto) 64.6 %; Platelet Count 421 K/uL (130-400); RDW Coefficient of Variation 16.6 % (11.5-14.5); RDW Standard Deviation 50.4 fL (36.4-46.3); Red Blood Count 3.66 M/uL (4.20-5.40); White Blood Count 8.85 K/ul (4.8-10.8)
[2023-06-30 07:01] LABS: BUN Creatinine Ratio 19.7 (10-20); Calcium 9.1 mg/dl (8.6-10.3); Creatinine Clr Calc Pharmacy 47.6 ml/min; Est GFR (African American) 87.1 ml/min; Est GFR (Non-African American) 75.1 ml/min; Potassium 4.2 mmol/L (3.5-5.1)
[2023-06-30] MEDS ORDERED: [UNRECOGNIZED DRUG - OTHER] PO SCH (08:00)
[2023-06-30] MEDS ORDERED: SENNA 8.6 MG TAB PO SCH (09:00)
[2023-06-30] MEDS: CHOLECALCIFEROL 1,000 UNITS 25 MCG TAB PO SCH (09:01)
[2023-06-30] MEDS: predniSONE 10 MG TABLET PO SCH (09:01)
[2023-06-30] MEDS: APIXABAN 5 MG TABLET PO SCH (09:01)
[2023-06-30] MEDS: CYANOCOBALAMIN (B-12) 500 MCG TABLET PO SCH (09:02)
[2023-06-30] MEDS: oxyCODONE HCL IR 5 MG TAB (IMMEDIATE RELEASE) PO PRN (09:05)
--- NOTE | 2023-06-30 11:20 | Discharge Summary ---
Discharge Summary Date of Service June 30, 2023 Notes For Next Care Provider Cancer related pain, now following with palliative for pain mgmt, PET scan and follow up with Dr. Bray next week Medication Changes From Visit Oxycodone PRN, lidocaine patch, bowel regimen Admission HPI Per Admitting Provider History obtained from interview with the patient and chart review. Past medical history of PE on Eliquis, non-small cell carcinoma of the lung on Sotorasib Patient presents to the ED with left chest and axilla pain for several weeks. Patient reports that she has been dealing with pain for several weeks; it has limited her ability to sleep. The pain is nonradiating, dull aching nature, does not increase with inspiration or palpation. Patient denies shortness of breath, headache, fever, chills or cough. Patient has a history of non-small cell carcinoma of the lung. Patient follows up with Dr. Bray. She is currently on Sotorasib. Other relevant medical history is pulmonary embolism for which she is on Eliquis. On presentation to the ED, she was normotensive, afebrile and saturating well on room air. Lab work shows normocytic anemia with hemoglobin of 10.8; similar to her baseline. Her serum sodium is 128; similar to her baseline. Chest x-ray done in the ED personally reviewed; 6.1 into 4.7 cm left apical air opacity. CT chest with contrast reviewed personally; no PE. 7.4 x 4.6 cm heterogeneously enhancing irregular left apical pulmonary mass consistent with primary lung malignancy with chest wall extension and subtle associated bony erosion of the posterior left second rib. Her last Last PET scan done on March 29, 2023; reported to have 63.0 x 42.4 mm sagittal by 49.7 mm transverse Patient to be admitted to the hospital for severe intractable pain and mild hyponatremia. 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 Social history; former smoker with 0.75 packs/day for 52 years. Admission Exam Per Admitting Provider Constitutional: WD/WN, vitals as above, NAD, sitting up in bed, pleasant, conversing easily Respiratory: Decreased breath sound in left upper lung field. No crackles or wheezes heard. Axillary lymph node palpated. Cardiovascular: RRR, no murmur, no edema Vessels: no JVD or carotid bruit Chest: normal inspection of chest. No tenderness. Abdomen: normal bowel sounds, soft, nontender, no hepatosplenomegaly Musculoskeletal: no cyanosis or clubbing, extremities motor strength 5/5 Skin: no rashes, warm and dry normal turgor Neurologic: Grossly intact s Psychiatric: A+Ox3, euthymic affect Principal Dx & Hospital Course #1 = Principal Diagnosis (1) Non-small cell cancer of left lung: (2) Chest pain: This is a 78yo F with a PMH of non-small cell cancer of left lung on sotorasib who presented with worsening left chest and axilla pain for several weeks. History of non-small cell carcinoma of the lung. CT chest with contrast with 7.4 x 4.6 cm heterogeneously enhancing irregular left apical pulmonary mass consistent with primary lung malignancy with chest wall extension and subtle associated bony erosion of the posterior left second rib. Last PET scan done on March 29, 2023; reported to have 63.0 x 42.4 mm sagittal by 49.7 mm transverse, indicating growth. Discussed case with Dr. Bray who moved up PET scan to Saturday 07/07. Evaluated by palliative care for cancer related pain and started on lidocaine patch, dc on PRN oxycodone with bowel regimen and outpatient follow-up with palliative care. Notable hyponatremia on admission consistent with SIADH. Na improved to 129 with 1200ml fluid restriction. Hemodynamically stable at time of discharge home. (3) Hyponatremia: Discharge Exam Gen: WD/WN, NAD, lying in bed, A&Ox3 HEENT: Normocephalic, atraumatic, conjunctivae moist, sclerae anicteric, mucous membranes moist Lung: decreased breath sounds DEBBIE, no wheezes/rales/rhonchi. + L axillary lymph node palpated Heart: Regular rate, regular rhythm, no murmurs, rubs, or gallops Abdomen: Soft, NT, ND +BS x 4 Extremities: no edema Skin: Warm, no rash Updated Medication List Medication Instructions Recorded Confirmed Type apixaban 5 mg tablet (Eliquis) 5 mg PO BID 06/28/23 06/28/23 History cholecalciferol (vitamin D3) 25 0 mcg PO DAILY 06/28/23 06/28/23 History mcg (1,000 unit) capsule (Vitamin D3) cyanocobalamin (vitamin B-12) 0 mcg PO DAILY 06/28/23 06/28/23 History 1,000 mcg tablet (Vitamin B-12) famotidine 20 mg tablet 20 mg PO BID PRN Gi Upset 06/28/23 06/28/23 History ibuprofen 200 mg tablet 200 mg PO DIRECTED PRN Pain 06/28/23 06/28/23 History prednisone 10 mg tablet 10 mg PO DAILY 06/28/23 06/28/23 History sotorasib 120 mg tablet (Lumakras) 480 mg PO QAM 06/28/23 06/28/23 History lidocaine 5 % topical patch 1 patch transdermal HS #15 ea 06/30/23 Rx oxycodone 5 mg tablet 5 mg PO Q4H PRN pain #20 tabs 06/30/23 Rx sennosides 8.6 mg tablet (Senokot) 8.6 mg PO QAM #30 tabs 06/30/23 Rx Hospital Stay Data Consultations 06/28/23 17:31 ED Decision to Admit Stat 06/29/23 09:25 Consult Palliative Care Routine Diagnostic Imagining Performed 06/28/23 15:28 CT chest diagnostic w con Stat Pending Results Patient Have Any Pending Studies at Discharge: No Discharge Instructions Given to Patient (Per Discharging Provider) MEDICATION CHANGES: Continue oxycodone 5mg Q4H PRN for pain control, lidocaine patches HS Continue bowel regimen with Senna 8.6mg daily. Continue all other medications. SUMMARY OF TEST RESULTS: You were admitted to hospital secondary to worsening pain of left chest wall. CT Chest imaging showed increased size of pulmonary mass (7.4 x 4.6 cm) consistent with primary lung malignancy with chest wall extension and subtle associated bony erosion of the posterior left second rib. RECOMMENDATIONS FOR FOLLOW-UP: Please follow-up with primary care and palliative care follow up as scheduled above. PET scan moved up to Jul 07. Follow up with Dr. Bray in heme/onc clinic as directed. Continue fluid restriction of 1200ml daily for low sodium. OTHER INSTRUCTIONS: Seek medical attention if you have: * temperature above 101 * chest pain or trouble breathing * abdominal pain, nausea, vomiting * diarrhea, dark stools or bloody stools * any unanswered questions or concerns Call 911 if symptoms are severe. Please take good care of yourself. It has been a pleasure taking care of you. Please take care of yourself. If you have any questions regarding your recent hospitalization please contact [facility] and request Mariaa Bowser @ [phone]. Total Time Total Time Spent Total Time Spent (In Minutes): 50 Supervising Physician Co-Signing Physician Notes Patient seen and examined at bedside. She is comfortably sitting up on a chair; not in any distress. She reports sleeping well last night. Her PET scan has been scheduled for 07/07. Patient to follow-up with PCP and oncology as outpatient Discharged on oxycodone for pain control. She will also follow-up with palliative care as outpatient.
--- NOTE | 2023-06-30 12:42 | Palliative Care Progress Note ---
Date of Service June 30, 2023 Assessment & Plan (1) Chest pain: Plan: Currently controlled with oxycodone 5mg which she is using approximately every four hours as awake. Continue lidocaine patch at hs to help with restful sleep. Encouraged her to take senna for bowel prophylaxis. She has fluid restriction with hyponatremia and is on regular opioids. (2) Palliative care encounter: Plan: She is looking forward to further discussion with oncology regarding options for care. She has had disease progression with sotorasib. She feels that quality of life is a high priority on treatment and that she will know if its time to focus on comfort and symptom management rather than disease management. She will be following with [facility] as an outpatient. Admission and Anticipated Discharge Date Admission Date: June 28, 2023 Subjective Sitting in chair at bedside, ready to go home. Denies pain currently. She has used 5mg oxycodone pretty much every four hours as awake with good effect. No BM, declined senna today. Review of Systems Review of Systems: ESAS Pain 0/3 Dyspnea 0/3 Nausea 0/3 Drowsiness 0/3 Physical Exam Constitutional: no acute distress Respiratory: normal respiratory effort; no labored breathing Cardiovascular: Extremities: no pedal edema Gastrointestinal (Abdomen): nondistended Neurologic: Speech / Cognition: normal cognition Genitourinary: continent Results & Data Vital Signs (Past 12 Hours) Vital Signs Temp Pulse Pulse Resp BP Pulse Ox O2 Del Method 06/30/23 11:27 98.1 F 83 76 16 114/63 95 06/30/23 08:00 Room Air 06/30/23 07:40 98.1 F 76 16 114/63 95 Room Air PG Care Time/CCT Total # of Minutes Spent Total Time Spent with Patient: Total time spent is greater than 50% in coordination of care (as documented) at patient's floor/unit and/or counseling patient: Coding Level of Care Code 18511 SUB INP/OBS CARE 1/25MIN Diagnoses Chest pain R07.9 Palliative care encounter Z51.5
--- NOTE | 2023-07-02 08:18 | Electrocardiogram Report ---
Test Reason : Blood Pressure : / mmHG Vent. Rate : 095 BPM Atrial Rate : 095 BPM P-R Int : 146 ms QRS Dur : 080 ms QT Int : 334 ms P-R-T Axes : 091 076 077 degrees QTc Int : 419 ms Sinus rhythm with Premature atrial complexes Right atrial enlargement Anterior infarct , age undetermined Abnormal ECG No previous ECGs available Confirmed by Daniel Rock ([id number]) on 07/02/2023 8:17:45 AM Referred By: REFERRED SELF Confirmed By:Daniel Rock
--- OUTSIDE RECORDS SUMMARY | 2023-07-05 14:41 | External Medical Summary | Summary of Care ---
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) Procedures PET CT SKULL BASE TO MID-THIGH Hesham Bray MD [address] [place] [address] Referral ID Status Reason Start Date Expiration Date V isits Requested Visits Authorized [id number] Authorized 06/28/2023 999 999 Reason for Visit * Reason Comments Follow Up 6wk Encounter Details Date Type Department Care Team Description 06/21/2023 Office Visit Hematology/Oncology [facility] [place] [address] [place] [id number] Hesham Bray MD [address] [place] [address] 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)* Allergies No known active allergiesdocumented as of this encounter (statuses as of 06/26/2023) Medications Medication Sig Dispensed Refills Start Date End Date Status Vitamin D 25 MCG (1000 UT) Oral Tablet Take 1 Tablet by mouth in the morning. 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 30 Tablet 0 04/13/2023 Active Famotidine 20 MG Oral Tablet (Pepcid) Take 1 Tablet by mouth in the morning and 1 Tablet before bedtime. 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 30 Tablet 3 04/25/2023 Active Additional Information Patient not taking.Reported on 05/10/2023 Vitamin B-12 1000 MCG Oral Tablet (Cyanocobalamin) Take 1 Tablet by mouth in the morning. 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 60 Tablet 1 05/13/2023 Active predniSONE 10 MG Oral Tablet (Deltasone) Take 1 Tablet by mouth in the morning. 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 120 Tablet 5 06/15/2023 Active documented as of this encounter (statuses as of 06/26/2023) Active Problems Problem Noted Date Primary cancer of left upper lobe of toby g 03/30/2023 Cancer Staging:Clinical:Stage STEVE(cT3, cN3, cM1b) - Signed by Traci Mitchell MD on 04/12/2023 Encounter for antineoplastic chemotherap y 03/30/2023 Chemotherapy induced nausea and vomiting 03/30/2023 Generalized weakness 03/20/2023 Bilateral pulmonary embolism 03/20/2023 Hyponatremia 03/20/2023 New onset atrial fibrillation 03/20/2023 Severe protein-energy malnutrition 03/20 Lung mass 03/14/2023 Cataract 08/08/2016 Family hx-breast malignancy 08/08/2016 Overview: Grandmother at An older age Family history of cardiovascular disease 08/08/2016 Hip joint replacement status 08/08/2016 Overview: Had Left Replaced Yrs Ago, dr tia Eller Trigger finger of right thumb 08/08/2016 ADVANCE DIRECTIVE INFORMATION 08/18/2006 Overview: No, Advance Directive brochure given to patient. LOC PRIM OSTEOART-PELVIS 06/20/2006 SOMAT DYSFUNC LUMBAR REG 02/17/2006 SOMAT DYSFUNC THORAC REG 02/17/2006 Nonallopathic lesion of cervical region 02/17/2006 DIFFUS CYSTIC MASTOPATHY Tobacco use disorder documented as of this encounter (statuses as of 06/26/2023) Resolved Problems Problem Noted Date Resolved Date Encounter for examination fo r normal comparison and control in clinical research program 11/21/2017 06/01/2020 Overview: DO NOT DELETE [facility] DETECT Study: Project # [id number], Account Services Manager: Khadar Dodd, PhD. SUMMARY: Goal: Establish test characteristics (sensitivity, specificity, PPV, NPV) of a circulating tumor DNA (ctDNA)-based test for cancer. Hypothesis: Circulating tumor DNA (ctDNA) and elevated protein biomarkers (together, the marker panel) can be detected in asymptomatic individuals with early cancer. Specific Aim 1: Determine the prevalence of a positive marker panel test in a prospective clinical cohort of 10,000 asymptomatic women ages 65 to 75 years. Specific Aim 2: Determine the sensitivity, specificity, positive predictive value (PPV) and negative predictive value (NPV) of a marker panel test to identify histologically proven cancers that develop within 5-years of the marker panel evaluation. CONTACTS: During normal business hours, contact study staff at ; after hours Account Services Manager via the [facility] screed [facility] . Please contact study team before resolving/deleting from patients problem list. Study phone number: [phone]. Diagnosis changed due to Research Module. Go to Snapshot for study details. Encounter for examination fo r normal comparison and control in clinical research program 11/21/2017 06/30/2022 Overview: DO NOT DELETE - [facility] DETECT Study: Project # [id number], Account Services Manager: Mykel Gill, MS, MPH. SUMMARY: Goal: Establish test characteristics (sensitivity, specificity, PPV, NPV) of a circulating tumor DNA (ctDNA)-based test for cancer. - Hypothesis: Circulating tumor DNA (ctDNA) and elevated protein biomarkers (together, the marker panel) can be detected in asymptomatic individuals with early cancer. - Specific Aim 1: Determine the prevalence of a positive marker panel test in a prospective clinical cohort of 10,000 asymptomatic women ages 65 to 75 years. - Specific Aim 2: Determine the sensitivity, specificity, positive predictive value (PPV) and negative predictive value (NPV) of a marker panel test to identify histologically proven cancers that develop within 5-years of the marker panel evaluation. - CONTACTS: During normal business hours, contact study staff at ; after hours Account Services Manager via the [facility] screed operator . - Please contact study team before resolving/deleting from patients problem list. Study phone number: [phone]. Diagnosis changed due to Research Module. Go to Snapshot for study details. documented as of this encounter (statuses as of 06/26/2023) Immunizations Name Administration Dates Next Due Covid-19 Ad26, Single Dose (Pierce/J&J) 022 Pneumococcal Polysaccharide PPV23 (Pneumovax) TD - Tetanus/Diptheria (ADULT) 08/18/2006 TD, Preservative Free 07/20/2022 TDAP (age 11 and older)(Adacel) 08/18/2006 Zoster Vaccine Recombinant (Shingrix) 08/25/2022 documented as of this encounter Social History Tobacco Use Types Packs/Day Years Used Date Smoking Tobacco: Former Cigarettes 0.8 52 S tarted: 1971 Smokeless Tobacco: Never Tobacco Cessation:Counseling Given: Not Answered Alcohol Use Standard Drinks/Week Comments Yes 0 (1 standard drink = 0.6 oz pure alcohol) socially mixed drink whiskey club soda, Food Insecurity Answer Date Recorded Within the past 12 months, y ou worried that your food would run out before you got money to buy more. Never true 03/09/2023 Within the past 12 months, t he food you bought just didn't last and you didn't have money to get more. Never true 03/09/2023 Sex Assigned at Date Recorded Not on file Job Start Date Occupation Industry Not on file Not on file Not on file documented as of this encounter Last Filed Vital Signs Vital Sign Reading Time Taken Comments Blood Pressure 168/78 06/21/2023 10:02 AM EDT Pulse 83 06/21/2023 10:02 AM EDT Temperature 36.7 C (98 F) 06/21/2023 10:02 AM EDT Respiratory Rate 16 06/21/2023 10:02 AM EDT Oxygen Saturation 97% 06/21/2023 10:02 AM EDT Inhaled Oxygen Concentration - - Weight 49.3 kg (108 lb 9.6 oz) 06/21/2023 10:02 AM EDT Height - - Body Mass Index 18.94 05/10/2023 11:30 AM EDT documented in this encounter Functional Status Functional Status Response Date of Assess ment Are you deaf or do you have serious difficulty h earing? No 03/20/2023 Are you blind or do you have serious difficulty seeing, even when wearing glasses? No 03/20/2023 Do you have serious difficul ty walking or climbing stairs? (5 years old or older) No 03/20/2023 Do you have difficulty dress ing or bathing? (5 years old or older) No 03/20/2023 Because of a physical, menta l, or emotional condition, do you have difficulty doing errands alone such as visiting a doctor s office or shopping? (15 years old or older) No 03/20/20 Cognitive Status Response Date of Assessm ent Because of a physical, menta l, or emotional condition, do you have serious difficulty concentrating, remembering, or making decisions? (5 years old or older No 03/20/2023 documented as of this encounter Progress Notes * Hesham Bray MD - 06/21/2023 9:59 AM EDT Images from the original note were not included. Outpatient Consult Note Data Source: Patient, Epic record. Data Source: Patient, Epic record. 06/21/2023 9:59 AM Reba Delaney [id number] 78 year old Patient Encounter: HEMATOLOGY/ONCOLOGY [facility] Outpatient Consult Note Data Source: Patient, Epic record. Data Source: Patient, Epic record. 05/10/2023 11:31 AM Reba Delaney [id number] 78 year old Patient Encounter: HEMATOLOGY/ONCOLOGY [facility] Cancer Diagnosis: Transfer from Dr. Mitchell Metastatic lung cancer Current Treatment: Sotorasib started on 04/28/2023 Previous Treatment: None Oncologic History : 78-year-old female with past medical history significant for pulmonary embolism, atrial fibrillation presented with complaint of generalized weakness and weight loss. She had a workup done which revealed left upper lobe lung mass. She then underwent diagnostic bronchoscopy with biopsy. Path showed NSCLC, tumor cells are positive for CK7, while negative for TTF1 and p40. There is weak/patchy synaptophysin staining. 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 PDL1 is 10%. She was also diagnosed of pulmonary embolism and currently on Eliquis. She had a further workup done including PET scan which was done on 03/29/2023 which revealed large left apical lung mass with multiple mediastinal, left hilar, and cervical metastatic lymph nodes, and questionable left adrenal metastasis. MRI of the brain was negative for metastasis and also showed1.1 cm enhancing nodule within the superficial right parotid gland with mild restricted diffusion, nonspecific but demonstrates hypermetabolic activity on PET/CT dated 03/29/2023. Findings may represent metastatic lymph node versus a primary/low- graded parotid neoplasm. Clinically she is feeling better since the start of the Sotorasib on 04/28/2023. She denies any headache, dizziness, blurred vision, chest pain, shortness breath palpitation abdominal pain or distention bleeding, bruising, nausea, vomiting, fever, night sweats, weight loss. She is physically more active and has more energy. She is to smoke less than pack per day for over 50 years. Drinks alcohol socially. Family history significant for the paternal grandmother for breast cancer and sister was diagnosed of skin cancer. Interval History: She is tolerating current treatment very well without any significant side effects toxicity. Patient denies any headache, dizziness, blurred vision, chest pain, shortness breath palpitation abdominalpain or distention, bleeding, bruising, nausea, vomiting, fever, night sweats, weight loss, hematuria, hematochezia. LABS/IMAGING: Results for orders placed or performed in visit on 06/20/23 COMPREHENSIVE METABOLIC PANEL Result Value Ref Range BUN 20 6 - 20 mg/dL Creatinine 0.8 0.5 - 1.0 mg/dL Estimated Glomerular Filtration Rate 73 >=60 mL/min Sodium 131 (L) 135 - 146 mmol/L Potassium 4.6 3.5 - 5.1 mmol/L Chloride 94 (L) 98 - 107 mmol/L CO2 27 22 - 32 mmol/L Anion Gap 10 7 - 15 mmol/L Glucose 84 70 - 120 mg/dL Albumin 3.8 3.8 - 5.0 g/dL AST 17 10 - 35 U/L Alkaline Phosphatase 182 (H) 35 - 130 U/L Bilirubin, Total 0.6 <=1.2 mg/dL Calcium 9.9 8.4 - 10.2 mg/dL Protein 8.6 (H) 6.0 - 8.3 g/dL ALT 17 10 - 35 U/L CBC Result Value Ref Range WBC 11.14 (H) 4.00 - 10.80 K/uL RBC 4.12 3.85 - 5.15 M/uL HGB 11.1 (L) 12.0 - 15.3 g/dL HCT 35.2 (L) 36.0 - 45.2 % MCV 85.4 81.5 - 97.5 fL MCH 26.9 27.0 - 34.0 pg MCHC 31.5 32.0 - 36.0 g/dL RDW 18.5 11.5 - 15.5 % PLT 524 (H) 140 - 400 K/uL MPV 8.5 6.6 - 11.1 fL DIFFERENTIAL, AUTOMATED Result Value Ref Range WBC 11.14 (H) 4.00 - 10.80 K/uL Neutrophils % 58.9 40.0 - 75.0 % Lymphocytes % 24.8 18.0 - 42.0 % Monocytes % 13.9 (H) 1.0 - 11.0 % Eosinophils % 2.2 0.0 - 6.0 % Basophils % 0.2 0.0 - 2.0 % Absolute Neutrophils 6.57 1.80 - 7.70 K/uL Absolute Lymphocytes 2.76 1.00 - 4.80 K/ul Absolute Monocytes 1.55 (H) 0.00 - 1.10 K/uL Absolute Eosinophils 0.24 0.00 - 0.70 K/uL Absolute Basophils 0.02 0.00 - 0.20 K/uL REVIEW OF SYSTEMS: General: No Fever, chills, night sweats, or weight loss. HEENT: No change in visual acuity, blurred or double vision. No epistaxis, facial pain, nasal discharge or change in hearing. Denies dysphagia, no muscosal ulceration, or sores noted. Cardiovascular: No chest pain, ELIZABETH, or palpitations Respiratory: No shortness of breath, cough, hemoptysis, or pleuritic chest pain Gastrointestinal: No abdominal pain, nausea, vomiting, diarrhea, rectal pain or bleeding Genitourinary: Denies Hematuria or dysuria Musculoskeletal: No bone pain Skin: No skin rash or lesions noted Neurologic: No numbness, weakness, neuropathic pain or change in cognitive function Psychiatric: No vegetative signs of depression Endocrine: No symptoms of hypothyroidism or hyperglycemia Hematologic: No bleeding or lymph nodes noted As mentioned above, all of the systems were reviewed in full and are unremarkable. Past Medical History: Diagnosis Date Diffuse cystic mastopathy Diffuse cystic mastopathy Nonallopathic lesion of lumbar region 01/2006 Nonallopathic lesion of thoracic region 01/2006 Osteoarthrosis, pelvic region and thigh [address] Eller Osteoporosis update DEXA Swelling, mass, or lump in head and neck 10/2009 benign Tobacco use disorder Current Outpatient Medications Medication Sig Dispense Refill Vitamin D 25 MCG (1000 UT) Oral Tablet Take 1 Tablet by mouth in the morning. Simethicone 80 MG Oral Tablet (Bicarsim) Take 1 Tablet by mouth every 6 hours as needed for Gas. 30Tablet 0 OLANZapine 5 MG Oral Tablet (zyPREXA) Take 1 Tablet by mouth at bedtime. 30 Tablet 0 Famotidine 20 MG Oral Tablet (Pepcid) Take 1 Tablet by mouth in the morning and 1 Tablet before bedtime. 180 Tablet 1 Ondansetron HCl 4 MG Oral Tablet Take 1 Tablet by mouth every 6 hours as needed for Nausea. (Patient not taking: Reported on 05/10/2023) 30 Tablet 3 Vitamin B-12 1000 MCG Oral Tablet (Cyanocobalamin) Take 1 Tablet by mouth in the morning. Apixaban 5 MG Oral Tablet (Eliquis) Take 1 Tablet by mouth in the morning and 1 Tablet before bedtime. 60 Tablet 1 predniSONE 10 MG Oral Tablet (Deltasone) Take 1 Tablet by mouth in the morning. Sotorasib 120 MG Oral Tablet Take 480 mg by mouth in the morning. 120 Tablet 5 No current facility-administered medications for this visit. Social History Tobacco Use Smoking status: Former Packs/day: 0.75 Years: 52.00 Pack years: 39.00 Types: Cigarettes Start date: 1970 Smokeless tobacco: Never Vaping Use Vaping Use: Never used Substance Use Topics Alcohol use: Yes Comment: socially mixed drink Authentic Responseey club soda, Drug use: Never Review of patient's allergies indicates: No Known Allergies PHYSICAL EXAMINATION: General Appearance: Healthy appearing patient in no acute distress There were no vitals taken for this visit. Vitals reviewed. HEENT: No oral or pharyngeal masses, ulceration or thrush noted, no sinus tenderness. Neck is supple with no thyromegaly or JVD noted. Lymph Nodes: No lymphadenopathy noted in the occipital, pre and post auricular, cervical, supra andinfraclavicular, axillary, epitrochlear, inguinal, and popliteal region. Lungs/Thorax: Clear to auscultation, no accessory muscles of respiration being used. Heart: Regular rate and rhythm, normal S1, S2 Abdomen: Soft, nontender, bowel sounds present, no appreciable hepatosplenomegaly, no palpable masses Extremeties: Good pulses bilaterally, no peripheral edema. Skin: Normal skin tone with no rash, petechiae, ecchymosis noted. Musculoskeletal: No pain on palpation over bony prominence, no edema, no evidence of gout, no jointor bony deformity ASSESSMENT: 78-year-old female with past medical history significant for pulmonary embolism, atrial fibrillation presented with complaint of generalized weakness and weight loss. She was found to have a lung mass and had biopsy done which is consistent with metastatic non-small cell carcinoma of the lung, favoring an adenocarcinoma with some possible neuroendocrine differentiation. PDL1 is 10%. 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 MRI of the brain was negative for metastasis. Based PET scan revealed large left apical lung mass with multiple mediastinal, hilar and cervical lymphadenopathy with left adrenal metastasis. Currently she is taking sotorasib with good tolerance and without any significant side effects toxicity. Since the start of the treatment she is clinically feeling better and improvement in the overall performance status. Discussed with the patient and daughter about diagnosis reviewed all the available blood test result them. PLAN: Continue current treatment. She will return clinic for follow-up in 6 weeks. She will have a follow-up PET scan done in 1 week. The patient voiced understanding of all of the above. All questions and concerns were addressed in an apparently satisfactory manner. Hesham Bray MD (This note was completed using the dictation program Fluency Direct. As such, there may be misspellings, word substitutions, or other variations that should not change the essence of the clinical content of this encounter note. If there is need for further clarification, please direct questions to me.) documented in this encounter Nursing Notes * Rosalba Brizuela CMA - 06/21/2023 10:02 AM EDT Patient identifed by name and birthdate Do you have any concerns about pain management for today's visit? Yes. Patient instructed to discuss pain concerns with provider during the visit today Living Will or Advance Directive for Health Care as noted on the problem list. [facility] is a way you can talk to your provider on line through e-mail. Would you like to sign up? I can activate it for you? ALREADY ACTIVE Filed Vitals: 06/21/23 1002 BP: 168/78 Pulse: 83 Resp: 16 Temp: 36.7 C (98 F) TempSrc: Tympanic SpO2: 97% Weight: 49.3 kg (108 lb 9.6 oz) Patient was instructed to not get up on the exam table/exam chair until directed and assisted by their provider; patient is to remain seated in the chair/ wheelchair/ exam table/ exam chair for fall prevention and safety reasons. Patient is aware to have assistance to step down off exam table/exam chair with personnel. Patient voiced full comprehension of instructions. documented in this encounter Plan of Treatment Upcoming Encounters Date Type Specialty Care Team Description 06/28/2023 Pharmacy Pharmacy [facility] [place] Hem/Onc [address] [place] [address] 07/17/2023 Imaging Radiology 07/21/2023 Office Visit Gastroenterology Vianey Corrigan CRNP [address] [place] [id number] 08/15/2023 Office Visit Hematology Oncology Hesham Bray MD [address] [place] [address] Scheduled Orders Name Type Priority Associated Diagnoses Orde r Schedule PET CT SKULL BASE TO MID-THIGH Medical Imaging Routine 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) Expected: 06/28/2023, Expires: 07/22/2024 Health Maintenance Due Date Last Done Comments DXA Scan 02/08/2020 02/07/2017, 01/29, 02/20/2014, Additional history exists COVID-19 Vaccine (2 - Pierce risk series) 12/21/2021 11/23/2021 Zoster Vaccines (2 of 2) 10/20/2022 08/25/2022 Pneumococcal Vaccine: 65+ Years (2 - PCV) 11/04/2022 11/04/2021 Influenza Vaccine (FLU shot) (#1) 2023 Depression Screening, Annual for Pts 12 and Over 08/25/2023 08/25/2022 DTaP,Tdap,and Td Vaccines (4 - Td or Tdap) 07/20/2032 07/20/2022, 08/18/2006, 08/18/2006, Additional history exists GARDASIL-HPV IMMUNIZATION SERIES Aged Out No longer eligible based on patient's age to complete this topic Hepatitis B Aged Out No longer eligi ble based on patient's age to complete this topic MENINGOCOCCAL (MENACTRA/MENVEO) Aged Out No longer eligible based on patient's age to complete this topic documented as of this encounter Medical Devices Not on filedocumented as of this encounter Visit Diagnoses Diagnosis 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 Question Answer Comments Discussion of Advance Directives occurred with: Patient
--- OUTSIDE RECORDS SUMMARY | 2023-07-05 14:41 | External Medical Summary | Summary of Care ---
Author Name Unknown Organization [facility] Address [address] [place] [address] Phone [phone] Care Team Providers Care Elementary Reading Tutor Name Role Phone Unavailable Primary Care Provider Unavailabl e Reason for Visit * Reason Onset Date Comments Appointment 06/21/2023 Encounter Details Date Type Department Care Team Description 06/21/2023 Telephone Hematology/Oncology Sanjiv Cabrera [place] [address] [facility] [place] [address] Hesham Bray MD [address] [facility] [place] [address] Appointment Allergies No known active allergiesdocumented as of this encounter (statuses as of 06/21/2023) Medications Medication Sig Dispensed Refills Start Date [...] as of this encounter (statuses as of 06/21/2023) Active Problems Problem Noted Date Primary cancer [...] as of this encounter (statuses as of 06/21/2023) Resolved Problems Problem Noted Date Resolved Date Encounter for examination fo r normal comparison and control in clinical research program 11/21/2017 06/01/2020 Overview: DO NOT DELETE [facility] DETECT Study: Project # [id number], Geological Sample Tester: Khadar Dodd, PhD. SUMMARY: Goal: Establish test [...] contact study staff at ; after hours Geological Sample Tester via the [facility] hospital air surveillance operator . Please contact study team before resolving/deleting from patients problem list. Study phone number: [phone]. Diagnosis changed due to Research Module. Go to Snapshot for study details. Encounter for examination fo r normal comparison and control in clinical research program 11/21/2017 06/30/2022 Overview: DO NOT DELETE - [facility] DETECT Study: Project # [id number], Geological Sample Tester: Mykel Gill, MS, MPH. SUMMARY: Goal: Establish [...] contact study staff at ; after hours Geological Sample Tester via the [facility] hospital air surveillance operator . - Please contact study team before resolving/deleting from patients problem list. Study phone number: [phone]. Diagnosis changed due to Research Module. Go to Snapshot for study details. documented as of this encounter (statuses as of 06/21/2023) Immunizations Name Administration Dates Next Due Covid-19 Ad26, Single Dose (Pierce/J&J) 022 Pneumococcal Polysaccharide PPV23 (Pneumovax) TD - Tetanus/Diptheria (ADULT) 08/18/2006 TD, Preservative Free 07/20/2022 TDAP (age 11 and older)(Adacel) 08/18/2006 Zoster Vaccine Recombinant (Shingrix) 08/25/2022 documented as of this encounter Social History Tobacco Use Types Packs/Day Years Used Date Smoking Tobacco: Former Cigarettes 0.8 52 S tarted: 1971 Smokeless Tobacco: Never Alcohol Use Standard Drinks/Week Comments Yes 0 [...] on file documented as of this encounter Functional Status Functional Status Response [...] No 03/20/2023 documented as of this encounter Miscellaneous Notes * Telephone Encounter - KRISTA Larry - 06/21/2023 10:28 AM EDT Patient scheduled for a PET/CT SCAN @ for 07/17/23 @ 10:15am. Patient given prep instructions. documented in this encounter Plan of Treatment Upcoming Encounters Date Type Specialty Care Team Description 06/28/2023 Pharmacy Pharmacy [facility] [place], [facility] Hem/Onc [address] [place] [address] 07/17/2023 Imaging Radiology 07/21/2023 Office Visit Gastroenterology Vianey Corrigan CRNP [address] [place] [address] 08/15/2023 Office Visit Hematology Oncology Hesham Bray MD [address] [place] [address] Health Maintenance Due Date Last Done Comments [...] Not on filedocumented as of this encounter Advance Directives Documents on File Type Date Recorded Patient Sandwich Hand Expl anation Advance Directives and Living Will 06/24/2022 ADVANCE DIRECTIVE / LIVING WILL Power of Dry Boss 06/24/2022 POWER OF A TTORNEY Latest Code Status on File Code Status Date Activated Date Inactivated Comments No Code 03/20/2023 1:42 AM 03/21/2023 5:59 PM This order reflects the patients wishes and were consensually agreed upon. Question Answer Comments Discussion of Advance Directives occurred with: Patient
--- OUTSIDE RECORDS SUMMARY | 2023-07-05 14:41 | External Medical Summary ---
Author Name Unknown Address Unknown Organization K09:[facility] [place] [address] Laboratory Report Ordering Provider Test Date Status BERTO ALAS 06/20/2023 10:38:40 Final Observation Date Value Abnormality Reference (Units ) Status WBC, Total 06/20/2023 10:38:40 11.14 Above high normal 4 .00-10.80 (K/uL) Final RBC 06/20/2023 10:38:40 4.12 3.85-5.15 (M/uL) Final Hemoglobin 06/20/2023 10:38:40 11.1 Below low normal 12 .0-15.3 (g/dL) Final HCT 06/20/2023 10:38:40 35.2 Below low normal 36. 0-45.2 (%) Final MCV 06/20/2023 10:38:40 85.4 81.5-97.5 (fL) Final MCH 06/20/2023 10:38:40 26.9 27.0-34.0 (pg) Final MCHC 06/20/2023 10:38:40 31.5 32.0-36.0 (g/dL) Final RDW 06/20/2023 10:38:40 18.5 11.5-15.5 (%) Final Platelets 06/20/2023 10:38:40 524 Above high normal 14 0-400 (K/uL) Final MPV 06/20/2023 10:38:40 8.5 6.6-11.1 ( fL) Final Performing Location [facility] [place] [address]
--- OUTSIDE RECORDS SUMMARY | 2023-07-05 14:41 | External Medical Summary | Summary of Care ---
Author Name Unknown Organization [facility] Address [address] [place] [address] Phone [phone] Care Team Providers Care Disc Ruler Operator Name Role Phone Unavailable Primary Care Provider Unavailabl e Reason for Visit * Reason Comments Outpatient Testing Encounter Details Date Type Department Care Team Description 06/20/2023 Laboratory Laboratory [facility] [address] [facility] [place] [id number] 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 SUMMARY: Goal: Establish [...] contact study staff at ; after hours Bus Company Manager via the [facility] hospital flux plant operator . Please contact study team before resolving/deleting from patients problem list. Study phone number: [phone]. Diagnosis changed due to Research Module. Go to Snapshot for study details. Encounter for examination fo r normal comparison and control in clinical research program 11/21/2017 06/30/2022 Overview: DO NOT DELETE - [facility] DETECT Study: Project # [id number], Bus Company Manager: Mykel Gill, MS, MPH. SUMMARY: Goal: [...] contact study staff at ; after hours Bus Company Manager via the [facility] hospital flux plant operator . - Please contact study team before resolving/deleting from patients problem list. Study phone number: [phone]. Diagnosis changed due to Research Module. Go to Snapshot for study details. documented as of this encounter (statuses as of 06/20/2023) Immunizations Name Administration Dates Next Due Covid-19 [...] No 03/20/2023 documented as of this encounter Plan of Treatment Upcoming Encounters Date Type Specialty Care Team Description 06/21/2023 Office Visit Hematology Oncology Hesham Bray MD [address] [place] [address] 06/28/2023 Pharmacy Pharmacy [facility], [facility] Hem/Onc [address] [place] [address] 07/21/2023 Office Visit [facility]enter[facility] [address] [facility] [address] Pending Results Name Type Priority Associated Diagnoses Date /Time CULTURE, URINE, QUANTITATIVE Lab Routine Dysuria 06/20/2023 10:38 AM EDT COMPREHENSIVE METABOLIC PANEL Lab STAT 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) 06/20/2023 10:38 AM EDT Health Maintenance Due Date Last Done Comments [...] Not on filedocumented as of this encounter Procedures Procedure Name Priority Date/Time Associated Diagnosis Comments DIFFERENTIAL, AUTOMATED STAT 06/20/2023 10:38 AM EDT 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) CBC WITH WBC DIFFERENTIAL STAT 06/20/2023 10:38 AM EDT 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) CBC STAT 06/20/2023 10:38 AM EDT 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) documented in this encounter Results * (ABNORMAL) DIFFERENTIAL, AUTOMATED (06/20/2023 10:38 AM EDT) WBC 11.14(H) 4.00 - 10.80 K/uL 06/20/2023 10:44 AM EDT [facility] 56-02 Neutrophils % 58.9 40.0 - 75.0 % 06/20/2023 10:44 AM EDT [facility] 56-02 Lymphocytes % 24.8 18.0 - 42.0 % 06/20/2023 10:44 AM EDT [facility] 56-02 Monocytes % 13.9(H) 1.0 - 11.0 % 06/20/2023 10:44 AM EDT [facility] 56-02 Eosinophils % 2.2 0.0 - 6.0 % 06/20/2023 10:44 AM EDT [facility] 56-02 Basophils % 0.2 0.0 - 2.0 % 06/20/2023 10:44 AM EDT [facility] 56-02 Absolute Neutrophils 6.57 1.80 - 7.70 K/uL 06/20/2023 10:44 AM EDT [facility] 56-02 Absolute Lymphocytes 2.76 1.00 - 4.80 K/ul 06/20/2023 10:44 AM EDT [facility] Absolute Monocytes 1.55(H) 0.00 - 1.10 K/uL 06/20/2023 10:44 AM EDT [facility] Absolute Eosinophils 0.24 0.00 - 0.70 K/uL 06/20/2023 10:44 AM EDT [facility] Absolute Basophils 0.02 0.00 - 0.20 K/uL 06/20/2023 10:44 AM EDT [facility] Blood Venous blood specimen / Unknown Venipuncture / Unknown 06/20/2023 10:38 AM EDT 06/20/2023 10:38 AM EDT Traci Mitchell MD LAB BLOOD ORDERABLES [facility] [address] [place] [address] * (ABNORMAL) CBC (06/20/2023 10:38 AM EDT) WBC 11.14(H) 4.00 - 10.80 K/uL 06/20/2023 10:44 AM EDT [facility] RBC 4.12 3.85 - 5.15 M/uL 06/20/2023 10:44 AM T [facility] HGB 11.1(L) 12.0 - 15.3 g/dL 06/20/2023 10:44 AM EDT [facility] HCT 35.2(L) 36.0 - 45.2 % 06/20/2023 10:44 AM EDT [facility] MCV 85.4 81.5 - 97.5 fL 06/20/2023 10:44 AM EDT [facility] MCH 26.9 27.0 - 34.0 pg 06/20/2023 10:44 AM EDT [facility] MCHC 31.5 32.0 - 36.0 g/dL 06/20/2023 10:44 AM EDT [facility] RDW 18.5 11.5 - 15.5 % 06/20/2023 10:44 AM EDT [facility] PLT 524(H) 140 - 400 K/uL 06/20/2023 10:44 AM EDT [facility] 56 MPV 8.5 6.6 - 11.1 fL 06/20/2023 10:44 AM EDT [facility] 56 Blood Venous blood specimen / Unknown Venipuncture / Unknown 06/20/2023 10:38 AM EDT 06/20/2023 10:38 AM EDT Traci Mitchell MD LAB BLOOD ORDERABLES [facility] [address] [place] [address] documented in this encounter Visit Diagnoses Diagnosis Dysuria 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 Question Answer Comments Discussion of Advance Directives occurred with: Patient
--- OUTSIDE RECORDS SUMMARY | 2023-07-05 14:41 | External Medical Summary ---
Author Name Unknown Address Unknown Organization K09[facility] [place] [address] Laboratory Report Ordering Provider Test Date Status BERTO ALAS 06/20/2023 10:38:40 Final Observation Date Value Abnormality Reference (Units ) Status BUN 06/20/2023 10:38:40 20 6-20 (mg/dL) Final Creatinine 06/20/2023 10:38:40 0.8 0.5-1.0 (mg/dL) Final Glomerular filtration rate/1.73 sq M.predicted [Volume Rate/Area] in Serum, Plasma or Blood by Creatinine-based formula (CKD-EPI) 06/20/2023 10:38:40 73 >=60 (mL/min) Final Performing Location [facility] [place] [address]
--- OUTSIDE RECORDS SUMMARY | 2023-07-05 14:41 | External Medical Summary | Summary of Care ---
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)* Allergies No known active allergiesdocumented as of this encounter (statuses as of 06/28/2023) Medications Medication Sig Dispensed Refills Start Date [...] as of this encounter (statuses as of 06/28/2023) Active Problems Problem Noted Date Primary cancer [...] as of this encounter (statuses as of 06/28/2023) Resolved Problems Problem Noted Date Resolved Date Encounter for examination fo r normal comparison and control in clinical research program 11/21/2017 06/01/2020 Overview: DO NOT DELETE [facility] DETECT Study: Project # [id number], Remelt Worker: Khadar Dodd, PhD. SUMMARY: Goal: Establish test [...] contact study staff at ; after hours Remelt Worker via the [facility] hospital bobbin cleaning machine operator . Please contact study team before resolving/deleting from patients problem list. Study phone number: [phone]. Diagnosis changed due to Research Module. Go to Snapshot for study details. Encounter for examination fo r normal comparison and control in clinical research program 11/21/2017 06/30/2022 Overview: DO NOT DELETE - [facility] DETECT Study: Project # [id number], Remelt Worker: Mykel Gill, MS, MPH. SUMMARY: Goal: Establish [...] contact study staff at ; after hours Remelt Worker via the [facility] hospital bobbin cleaning machine operator . - Please contact study team before resolving/deleting from patients problem list. Study phone number: [phone]. Diagnosis changed due to Research Module. Go to Snapshot for study details. documented as of this encounter (statuses as of 06/28/2023) Immunizations Name Administration Dates Next Due Covid-19 [...] as of this encounter Progress Notes * Karo Jean, [facility] - 06/28/2023 8:07 AM EDT MEDICATION THERAPY MANAGEMENT SOTORASIB TREATMENT PROGRESS NOTE Reba Delaney [phone] Patient Phone Numbers Cell Home [phone] DaughterErin Lab: SP Specialty Pharmacy: [facility] Specialty Communication: Spoke to MD/PA/PERSONAL COMPUTER SPECIALIST Treatment: Medication: Sotorasib (Lumakras) Indication/Staging/Diagnosis Code: NSCLC w/ mets C34.12 Dose: 480 mg daily ( 06/08/23) Administration: +/- food Start Date: 04/28/23 Primary Preparation Supervisor/Oncologist: Katarina (formerly Dr. Mitchell) Supportive Care Meds: Olanzapine Ondansetron Dose adjustment / medication hold: 06/01/23-06/07/23: sotorasib held for elevated LFTs 06/08/23: sotorasib dose reduced to 480mg daily for elevated LFTs Interval History: Per TE 06/28/23, pt called office c/o significant chest pain and ELIZABETH. Pt was advised by Sergio Joshi LPN,and Dr. Bray to go to ED for further evaluation Changes to medication list since last visit? No Assessment and Plan: Per discussion with Dr. Bray, lab monitoring extended to every 3 weeks due to stabilizing LFTs MTM to follow up in one week to assess pt status Assessment of compliance: N/A Assessment of adverse effects attributed to drug therapy: N/A Dose adjustment needed based on lab or adverse drug reaction? No Follow up: 1 week Karo Jean, PharmD, BCOP Clinical Pharmacist, [facility] Oral Chemotherapy [facility] 06/28/2023, 9:15 AM Monitoring Parameters: Estimated CrCl Serum creatinine: 0.8 mg/dL 06/20/23 1038 Estimated creatinine clearance: 45.1 mL/min Hepatitis panel Latest Reference Range & Units 05/10/23 11:20 Hepatitis B Surface Antigen Negative Negative Hepatitis B Surface Antibody, Quantitative mIU/mL <3.5 HEPATITIS B SURFACE ANTIBODY Rpt Hepatitis B Surface Antibody, Interpretation NOT immune to Hepatitis B Virus Hepatitis B Surface Antibody, Qualitative Negative Hepatitis B Core Antibodies IgG and IgM Negative Negative Suggested lab monitoring CBCd as indicated, CMP every 3 weeks for first 3 months, then monthly Treatment Parameters See PI Pertinent labs: N/A Time Spent on Encounter: 6 - 10 minutes Encounter Group: Oncology Encounter Interventions Item Category: Oral Chemotherapy Other: Sotorasib Problem/Rationale: Safety: Adverse medication event - Undesirable effect Pharmacist Intervention(s): Care coordination, Clarification with Provider, and Refer to Provider Follow-Up Magnitude of Intervention: Refer patient to ER/Urgent care for immediate management (Level 5) documented in this encounter Plan of Treatment Upcoming Encounters Date Type Specialty Care Team Description 07/17/2023 Imaging Radiology 07/21/2023 Office Visit Gastroenterology Vianey Corrigan CRNP [address] [place] [address] 08/15/2023 Office Visit Hematology Oncology [facility] [address] [facility] [address] Health Maintenance Due Date Last Done Comments [...] Documents on File Type Date Recorded Patient Tank Cleaning Supervisor Expl anation Advance Directives and Living Will 06/24/2022 ADVANCE DIRECTIVE / LIVING WILL Power of Software Developer Mid Level 06/24/2022 POWER OF A TTORNEY Latest Code Status on File Code Status Date Activated Date Inactivated Comments No Code 03/20/2023 1:42 AM 03/21/2023 5:59 PM This order reflects the patients wishes and were consensually agreed upon. Question Answer Comments Discussion of Advance Directives occurred with: Patient
--- OUTSIDE RECORDS SUMMARY | 2023-07-05 14:41 | External Medical Summary ---
Author Name Unknown Address Unknown Organization [facility] [place] [address] [place] [address] Laboratory Report Ordering Provider Test Date Status RONNY ALASEY 06/20/2023 10:38:40 Final Observation Date Value Abnormality Reference (Units) Status Bacteria identified in Specimen by Culture 06/20/2023 10:38:40 No significant growth Final Performing Location [facility] - [address] [place] [address]
--- OUTSIDE RECORDS SUMMARY | 2023-07-05 14:41 | External Medical Summary ---
Author Name Unknown Address Unknown Organization K09:[facility] [place] [address] Laboratory Report Ordering Provider Test Date Status BERTO ALAS 06/20/2023 10:38:40 Final Observation Date Value Abnormality Reference (Units ) Status SYNC LEUKOCYTES IN BLOOD BY AUTOMATED COUNT 06/20/2023 10:38:40 11.14 Above high normal 4.00-10.80 (K/uL) Final Segs 06/20/2023 10:38:40 58.9 40.0-75.0 (%) Final Lymphs % 06/20/2023 10:38:40 24.8 18.0-42.0 (%) Final Monos 06/20/2023 10:38:40 13.9 Above high normal 1.0-11.0 (%) Final Eosinophils 06/20/2023 10:38:40 2.2 0.0-6.0 (%) Final Basos 06/20/2023 10:38:40 0.2 0.0-2.0 (%) Final Absolute Segs 06/20/2023 10:38:40 6.57 1.80-7.70 (K/uL) Final Lymphs, absolute 06/20/2023 10:38:40 2.76 1.00-4.80 (K/ul) Final Monos, Abs 06/20/2023 10:38:40 1.55 Above high normal 0.00-1.10 (K/uL) Final Eos, Abs 06/20/2023 10:38:40 0.24 0.00-0.70 (K/uL) Final Basos, Abs 06/20/2023 10:38:40 0.02 0.00-0.20 (K/uL) Final Performing Location [facility] [place] [address]
--- OUTSIDE RECORDS SUMMARY | 2023-07-05 14:42 | External Medical Summary | Summary of Care ---
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 With or without food. 120 Tablet 5 06/05/2023 Active documented as of this encounter (statuses as of 06/08/2023) Active Problems Problem Noted Date Primary cancer [...] as of this encounter (statuses as of 06/08/2023) Resolved Problems Problem Noted Date Resolved Date Encounter for examination fo r normal comparison and control in clinical research program 11/21/2017 06/01/2020 Overview: DO NOT DELETE [employer] DETECT Study: Project # [id number], Putty Remover: Khadar Dodd, PhD. SUMMARY: Goal: Establish test [...] contact study staff at ; after hours Putty Remover via the [facility] regrinder operator . Please contact study team before resolving/deleting from patients problem list. Study phone number: [phone]. Diagnosis changed due to Research Module. Go to Snapshot for study details. Encounter for examination fo r normal comparison and control in clinical research program 11/21/2017 06/30/2022 Overview: DO NOT DELETE - [employer] Study: Project # [id number], Putty Remover: Mykel Gill, MS, MPH. SUMMARY: Goal: Establish [...] contact study staff at ; after hours Putty Remover via the [facility] regrinder operator . - Please contact study team before resolving/deleting from patients problem list. Study phone number: [phone]. Diagnosis changed due to Research Module. Go to Snapshot for study details. documented as of this encounter (statuses as of 06/08/2023) Immunizations Name Administration Dates Next Due Covid-19 [...] this encounter Progress Notes * Karo Jean, [facility] - 06/08/2023 8:12 AM EDT MEDICATION THERAPY MANAGEMENT SOTORASIB TREATMENT PROGRESS NOTE Reba Pritchett Elaina [id number] Patient Phone Numbers Cell Home [phone] DaughterErin Lab: SP Specialty Pharmacy: [facility] Specialty Communication: Spoke to: Patient and Daughter Treatment: Medication: Sotorasib (Lumakras) Indication/Staging/Diagnosis Code: NSCLC w/ mets C34.12 Dose: 480 mg daily ( 06/08/23) Administration: +/- food Start Date: 04/28/23 Primary Lapper/Oncologist: Katarina (formerly Dr. Mitchell) Supportive Care Meds: Olanzapine Ondansetron Dose adjustment / medication hold: 06/01/23-06/07/23: sotorasib held for elevated LFTs 06/08/23: sotorasib dose reduced to 480mg daily for elevated LFTs Interval History: Reports pain and numbness in arm radiating to breast. Pt attributing pain to lymph nodes and taking APAP for pain relief Changes to medication list since last visit? No Assessment and Plan: WBC/ANC declining to WNL PLT slightly elevated secondary to prednisone use Ferritin remains elevated o Iron and transferrin low o Folic acid and LD WNL Na+ remains low o Encouraged pt to increase dietary Na+ o Will monitor closely K+ declining to WNL ALT declining to slightly above ULN o AST declining to WNL o Alk phos declining to 2.3 times ULN o Per PI, for grade 2 AST or ALT elevation (with symptoms) or grade 3 or 4 AST or ALT elevation: Withhold sotorasib until recovery to ? grade 1 or baseline, then resume at the next lower dose level (480mg daily) o Advised pt to avoid APAP and use lowest effective dose of ibuprofen for pain relief - Counseled pt and daughter on ibuprofen bleeding risk All other labs stable Per discussion with Dr. Bray, pt to resume sotorasib 480mg daily. Pt and daughter repeated instructions back with understanding Repeat labs scheduled 06/14 @1100 Assessment of compliance: compliant Assessment of adverse effects attributed to drug therapy: N/A Dose adjustment needed based on lab or adverse drug reaction? Yes, resume at 480mg Follow up: 06/14 Karo Jean, PharmD, BCOP Clinical Pharmacist, [facility] Oral Chemotherapy [facility] 06/08/2023, 10:32 AM Monitoring Parameters: Estimated CrCl Serum creatinine: 0.9 mg/dL 06/07/23 1135 Estimated creatinine clearance: 39.1 mL/min Hepatitis panel Latest Reference Range & [...] monthly Treatment Parameters See PI Pertinent labs: Latest Reference Range & Units 05/10/23 11:20 05/31/23 15:01 06/07/23 11:35 WBC 4.00 - 10.80 K/uL 8.81 11.14 (H) 8.02 HGB 12.0 - 15.3 g/dL 10.3 (L) 10.5 (L) 10.5 (L) HCT 36.0 - 45.2 % 32.8 (L) 33.6 (L) 33.2 (L) MCV 81.5 - 97.5 fL 83.2 84.8 86.9 PLT 140 - 400 K/uL 450 (H) 519 (H) 401 (H) Absolute Neutrophils 1.80 - 7.70 K/uL 5.28 9.19 (H) 4.84 Latest Reference Range & Units 06/07/23 11:35 Iron 33 - 151 ug/dL 28 (L) Iron Binding Capacity 250 - 425 ug/dL 305 Transferrin Saturation Percent 15 - 55 % 9 (L) Ferritin 13 - 150 ng/mL 370 (H) Folic Acid >4.5 ng/mL 14.9 Latest Reference Range & Units 06/07/23 11:35 Folic Acid >4.5 ng/mL 14.9 LD <=250 U/L 206 Latest Reference Range & Units 05/10/23 11:20 05/31/23 15:01 06/07/23 11:35 Sodium 135 - 146 mmol/L 131 (L) 128 (L) 129 (L) Latest Reference Range & Units 05/10/23 11:20 05/31/23 15:01 06/07/23 11:35 Potassium 3.5 - 5.1 mmol/L 4.2 5.2 (H) 4.5 Latest Reference Range & Units 05/10/23 11:20 05/31/23 15:01 06/07/23 11:35 Albumin 3.8 - 5.0 g/dL 3.3 (L) 3.6 (L) 3.5 (L) AST 10 - 35 U/L 14 51 (H) 19 ALT 10 - 35 U/L 9 (L) 140 (H) 37 (H) Alkaline Phosphatase 35 - 130 U/L 92 595 (H) 294 (H) Bilirubin, Total <=1.2 mg/dL 0.3 1.1 0.8 Time Spent on Encounter: 11 - 15 minutes Encounter Group: Oncology Encounter Interventions Item Category: Oral Chemotherapy Other: Sotorasib Problem/Rationale: Safety: Needs additional monitoring - Medication Requires monitoring Pharmacist Intervention(s): Lab monitoring, Medication resumed and Toxicity monitoring Magnitude of Intervention: Modification of medication for asymtomatic patients (Level 2) Second Item Second Item Category: Analgesics Acetaminophen Problem/Rationale: Safety: Adverse medication event - Undesirable effect Pharmacist Intervention(s): Lab monitoring and Medication discontinued Magnitude of Intervention: Modification of medication for asymtomatic patients (Level 2) Third Item Third Item Category: Analgesics Ibuprofen Problem/Rationale: Indication: Needs additional medication therapy - Untreated condition Education: Initial education Pharmacist Intervention(s): Education provided and Medication initiated (OTC) Magnitude of Intervention: Modification of medication for asymtomatic patients (Level 2) documented in this encounter Plan of Treatment Upcoming Encounters Date Type Specialty Care Team Description 06/14/2023 Pharmacy Pharmacy [facility] Hem/Onc [address] [place] [address] 06/14/2023 Laboratory Laboratory Moriah Cabrera [place] [place] [address] 06/21/2023 Office Visit Hematology Oncology Hesham Bray MD [address] [place] [address] 07/21/2023 Office Visit Gastroenterology Vianey Corrigan CRNP [address] [place] [address] Health Maintenance Due Date Last Done Comments [...] Documents on File Type Date Recorded Patient Transit Bus Operator Expl anation Advance Directives and Living Will 06/24/2022 ADVANCE DIRECTIVE / LIVING WILL Power of [employer] 06/24/2022 POWER OF A TTORNEY Latest Code Status on File Code Status Date Activated Date Inactivated Comments No Code 03/20/2023 1:42 AM 03/21/2023 5:59 PM This order reflects the patients wishes and were consensually agreed upon. Question Answer Comments Discussion of Advance Directives occurred with: Patient
--- OUTSIDE RECORDS SUMMARY | 2023-07-05 14:42 | External Medical Summary | Summary of Care ---
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 30 Tablet 0 04/13/2023 Active Famotidine 20 MG Oral Tablet (Pepcid) Take 1 Tablet by mouth in the morning and 1 Tablet before bedtime. 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 30 Tablet 3 04/25/2023 Active Additional Information Patient not taking.Reported on 05/10/2023 Vitamin B-12 1000 MCG Oral Tablet (Cyanocobalamin) Take 1 Tablet by mouth in the morning. 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 60 Tablet 1 05/13/2023 Active predniSONE 10 MG Oral Tablet (Deltasone) Take 1 Tablet by mouth in the morning. 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 With or without food. 120 Tablet 5 06/14/2023 3 Discontinue d(Refill) documented as of this encounter (statuses as of 06/15/2023) Active Problems Problem Noted Date Primary cancer [...] as of this encounter (statuses as of 06/15/2023) Resolved Problems Problem Noted Date Resolved Date Encounter for examination fo r normal comparison and control in clinical research program 11/21/2017 06/01/2020 Overview: DO NOT DELETE [facility] DETECT Study: Project # [id number], Manufacturer'S Representative: Khadar Dodd, PhD. SUMMARY: Goal: Establish test [...] contact study staff at ; after hours Manufacturer'S Representative via the [facility] hospital high lift operator . Please contact study team before resolving/deleting from patients problem list. Study phone number: [phone]. Diagnosis changed due to Research Module. Go to Snapshot for study details. Encounter for examination fo r normal comparison and control in clinical research program 11/21/2017 06/30/2022 Overview: DO NOT DELETE - [facility] DETECT Study: Project # [id number], Manufacturer'S Representative: Mykel Gill, MS, MPH. SUMMARY: Goal: Establish [...] contact study staff at ; after hours Manufacturer'S Representative via the [facility] hospital high lift operator . - Please contact study team before resolving/deleting from patients problem list. Study phone number: [phone]. Diagnosis changed due to Research Module. Go to Snapshot for study details. documented as of this encounter (statuses as of 06/15/2023) Immunizations Name Administration Dates Next Due Covid-19 [...] encounter Miscellaneous Notes * Telephone Encounter - Ammy Paredes CPhT - 06/15/2023 9:31 AM EDTPending Prescriptions: Disp Refills Sotorasib 120 MG Oral Tablet 120 Ta*5 Sig: Take 480 mg by mouth in the morning. * Telephone Encounter - Ellen Joshi LPN - 06/15/2023 9:19 AM EDT FYI * Telephone Encounter - Samia Bui CPhT - 06/15/2023 9:05 AM EDT [facility] cannot fill Lumakras due to insurance. We have forwarded the prescription to [facility] specialty Pharmacy. The office should follow up with this Pharmacy to ensure they have contacted patient. Thank you. Samia Bui CPhT [facility] 06/15/2023, 9:05 AM documented in this encounter Plan of Treatment Upcoming Encounters Date Type Specialty Care Team Description 06/21/2023 Office Visit Hematology Oncology Katarina, [facility]es[facility] Seals [facility] [address] [facility] [address] 06/28/2023 Pharmacy Pharmacy [facility] Hem[facility]Onc [address] [facility] [place] [address] 07/21/2023 Office Visit Gastroenterology Vianey Corrigan CRNP [address] [place] [address] Health Maintenance Due Date Last Done Comments [...] Documents on File Type Date Recorded Patient Rod Buster Helper Expl anation Advance Directives and Living Will 06/24/2022 ADVANCE DIRECTIVE / LIVING WILL Power of Certification Officer 06/24/2022 POWER OF A TTORNEY Latest Code Status on File Code Status Date Activated Date Inactivated Comments No Code 03/20/2023 1:42 AM 03/21/2023 5:59 PM This order reflects the patients wishes and were consensually agreed upon. Question Answer Comments Discussion of Advance Directives occurred with: Patient
--- OUTSIDE RECORDS SUMMARY | 2023-07-05 14:42 | External Medical Summary ---
Author Name Unknown Address Unknown Organization K09:[facility] [place] [address] Laboratory Report Ordering Provider Test Date Status NESS PADILLA 06/07/2023 11:35:39 Final Observation Date Value Abnormality Reference (Units ) Status SYNC LEUKOCYTES IN BLOOD BY AUTOMATED COUNT 06/07/2023 11:35:39 8.02 4.00-10.80 (K/uL) Final Segs 06/07/2023 11:35:39 60.3 40.0-75.0 (%) Final Lymphs % 06/07/2023 11:35:39 21.6 18.0-42.0 (%) Final Monos 06/07/2023 11:35:39 15.0 Above high normal 1.0-11.0 (%) Final Eosinophils 06/07/2023 11:35:39 2.7 0.0-6.0 (%) Final Basos 06/07/2023 11:35:39 0.4 0.0-2.0 (%) Final Absolute Segs 06/07/2023 11:35:39 4.84 1.80-7.70 (K/uL) Final Lymphs, absolute 06/07/2023 11:35:39 1.73 1.00-4.80 (K/ul) Final Monos, Abs 06/07/2023 11:35:39 1.20 Above high normal 0.00-1.10 (K/uL) Final Eos, Abs 06/07/2023 11:35:39 0.22 0.00-0.70 (K/uL) Final Basos, Abs 06/07/2023 11:35:39 0.03 0.00-0.20 (K/uL) Final Performing Location [facility] [place] [address]
--- OUTSIDE RECORDS SUMMARY | 2023-07-05 14:42 | External Medical Summary | Summary of Care ---
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 SUMMARY: Goal: Establish test [...] contact study staff at ; after hours Freight Caller via the [facility] hospital dredge pipe operator . Please contact study team before resolving/deleting from patients problem list. Study phone number: [phone]. Diagnosis changed due to Research Module. Go to Snapshot for study details. Encounter for examination fo r normal comparison and control in clinical research program 11/21/2017 06/30/2022 Overview: DO NOT DELETE - [employer] DETECT Study: Project # [id number], Freight Caller: Mykel Gill, MS, MPH. SUMMARY: Goal: Establish [...] contact study staff at ; after hours Freight Caller via the [facility] hospital dredge pipe operator . - Please contact study team before resolving/deleting from patients problem list. Study phone number: [phone]. Diagnosis changed due to Research Module. Go to Snapshot for study details. documented as of this encounter (statuses as of 06/14/2023) Immunizations Name Administration Dates Next Due Covid-19 [...] this encounter Progress Notes * Karo Jean, [facility] - 06/14/2023 10:46 AM EDT MEDICATION THERAPY MANAGEMENT SOTORASIB TREATMENT PROGRESS NOTE Reba Roenry [id number] Patient Phone Numbers Cell Home [phone] DaughterErin Lab: SP Specialty Pharmacy: [facility] Specialty Communication: Spoke to: Patient and Daughter Treatment: Medication: Sotorasib (Lumakras) Indication/Staging/Diagnosis Code: NSCLC w/ mets C34.12 Dose: 480 mg daily ( 06/08/23) Administration: +/- food Start Date: 04/28/23 Primary Physical Therapy Assistant/Oncologist: Katarina (formerly Dr. Mitchell) Supportive Care Meds: Olanzapine Ondansetron Dose adjustment / medication hold: 06/01/23-06/07/23: sotorasib held for elevated LFTs 06/08/23: sotorasib dose reduced to 480mg daily for elevated LFTs Interval History: Reports pain and numbness in arm radiating to breast. Pt attributing pain to lymph nodes and takingibuprofen 3-4 tabs per day for symptom relief Pt inquiring if sotorasib dose will be increased in future No other concerns, tolerating dose reduction well Changes to medication list since last visit? No Assessment and Plan: PLT slightly elevated secondary to prednisone use Na+ low but improving Encouraged pt to increase dietary Na+ Will monitor closely ALT declining to WNL Alk phos declining to 1.6 times ULN Per PI, for grade 2 AST or ALT elevation (with symptoms) or grade 3 or 4 AST or ALT elevation: Withhold sotorasib until recovery to ? grade 1 or baseline, then resume at the next lower dose level (480mg daily) All other labs stable Continue ibuprofen as needed for arm pain. Reviewed limiting or avoiding APAP due to hepatotoxicity Encouraged pt to have physical evaluation of left arm and breast at OV 06/21/23 Reassured pt lower dose of sotorasib is effective with cancer treatment and there can be another effective dose reduction if needed. Reviewed once dose is reduced due to AE it will not be increased. Pt replied with understanding Continue current therapy Repeat labs with OV Assessment of compliance: compliant Assessment of adverse effects attributed to drug therapy: Nausea/Vomiting - absent Diarrhea - absent Edema - absent Rash - absent Musculoskeletal pain - present Dose adjustment needed based on lab or adverse drug reaction? Yes, resume at 480mg Follow up: 1 week OV/labs; 2 weeks MTM with labs Karo Jean, PharmD, BCOP Clinical Pharmacist, [facility] Oral Chemotherapy [facility] 06/14/2023, 11:15 AM Monitoring Parameters: Estimated CrCl Serum creatinine: 0.8 mg/dL 06/14/23 0936 Estimated creatinine clearance: 44 mL/min Hepatitis panel Latest Reference Range & [...] Pertinent labs: Latest Reference Range & Units 05/31/23 15:01 06/07/23 11:35 06/14/23 09:36 WBC 4.00 - 10.80 K/uL 11.14 (H) 8.02 10.18 HGB 12.0 - 15.3 g/dL 10.5 (L) 10.5 (L) 10.0 (L) HCT 36.0 - 45.2 % 33.6 (L) 33.2 (L) 32.0 (L) MCV 81.5 - 97.5 fL 84.8 86.9 87.4 PLT 140 - 400 K/uL 519 (H) 401 (H) 441 (H) Absolute Neutrophils 1.80 - 7.70 K/uL 9.19 (H) 4.84 6.22 Latest Reference Range & Units 05/31/23 15:01 06/07/23 11:35 06/14/23 09:36 Sodium 135 - 146 mmol/L 128 (L) 129 (L) 133 (L) Latest Reference Range & Units 05/31/23 15:01 06/07/23 11:35 06/14/23 09:36 Albumin 3.8 - 5.0 g/dL 3.6 (L) 3.5 (L) 3.6 (L) AST 10 - 35 U/L 51 (H) 19 21 ALT 10 - 35 U/L 140 (H) 37 (H) 25 Alkaline Phosphatase 35 - 130 U/L 595 (H) 294 (H) 212 (H) Bilirubin, Total <=1.2 mg/dL 1.1 0.8 0.6 Time Spent on Encounter: 6 - 10 minutes Encounter Group: Oncology Encounter Interventions Item Category: Oral Chemotherapy Other: Sotorasib Problem/Rationale: Safety: Needs additional monitoring - Medication Requires monitoring Education: Patient question Pharmacist Intervention(s): Education provided, Lab monitoring, Non- pharmacological intervention provided, and Toxicity monitoring Magnitude of Intervention: Monitoring with direction (Level 1) Second Item Second Item Category: Analgesics Ibuprofen Problem/Rationale: Effectiveness: Needs additional monitoring - Medication Requires monitoring Pharmacist Intervention(s): Toxicity monitoring Magnitude of Intervention: Monitoring with direction (Level 1) documented in this encounter Plan of Treatment Upcoming Encounters Date Type Specialty Care Team Description 06/21/2023 Office Visit Hematology Oncology Hesham Bray MD [address] [facility] [place] [address] 07/21/2023 Office Visit Gastroenterology Vianey Corrigan CRNP [address] [place] [address] Health Maintenance Due Date Last Done Comments [...] Documents on File Type Date Recorded Patient Access Control Officer Expl anation Advance Directives and Living Will 06/24/2022 ADVANCE DIRECTIVE / LIVING WILL Power of Receptionist Clerk 06/24/2022 POWER OF A TTORNEY Latest Code Status on File Code Status Date Activated Date Inactivated Comments No Code 03/20/2023 1:42 AM 03/21/2023 5:59 PM This order reflects the patients wishes and were consensually agreed upon. Question Answer Comments Discussion of Advance Directives occurred with: Patient
--- OUTSIDE RECORDS SUMMARY | 2023-07-05 14:42 | External Medical Summary | Summary of Care ---
Author Name Unknown Organization [facility] Address [address] [place] [address] Phone [phone] Care Team Providers Care Accountant Name Role Phone Unavailable Primary Care Provider Unavailabl e Encounter Details Date Type Department Care Team Description 06/01/2023 Orders Only Hematology/Oncology Sanjiv Cabrera [place] [address] [facility] [place] [address] Hesham Bray MD [address] [facility] [place] [address] Primary cancer of left upper lobe of [...] before bedtime. 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 With or without food. 120 Tablet 5 06/14/2023 Active Sotorasib 120 MG Oral TabletIndication s: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 With or without food. 240 Tablet 2 05/23/2023 3 Discontinue d(Medicatio n/Dose Changed) Sotorasib 120 MG Oral TabletIndication s: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) Take 480 mg by mouth in the morning. With or without food. 120 Tablet 5 06/05/2023 3 Discontinue d(Transferr ed) documented as of this encounter (statuses as [...] 11/21/2017 06/01/2020 Overview: DO NOT DELETE [facility] DETECT Study: Project # [id number], Repairer Typewriter: Khadar Dodd, PhD. SUMMARY: Goal: Establish test [...] contact study staff at ; after hours Repairer Typewriter via the [facility] slasher machine operator . Please contact study team before resolving/deleting from patients problem list. Study phone number: [phone]. Diagnosis changed due to Research Module. Go to Snapshot for study details. Encounter for examination fo r normal comparison and control in clinical research program 11/21/2017 06/30/2022 Overview: DO NOT DELETE - [employer] DETECT Study: Project # [id number], Repairer Typewriter: Mykel Gill, MS, MPH. SUMMARY: Goal: Establish [...] contact study staff at ; after hours Repairer Typewriter via the [facility] slasher machine operator . - Please contact study team before resolving/deleting from patients problem list. Study phone number: [phone]. Diagnosis changed due to Research Module. Go to Snapshot for study details. documented as of this encounter (statuses as of 06/14/2023) Immunizations Name Administration Dates Next Due Covid-19 Ad26, Single Dose (Pierce/J&J) 022 Pneumococcal Polysaccharide PPV23 (Pneumovax) TD - Tetanus/Diptheria (ADULT) 08/18/2006,1988 TD, Preservative Free 07/20/2022 TDAP (age 11 and older)(Adacel) 08/18/2006 Zoster Vaccine Recombinant (Shingrix) 08/25/2022 documented as of this encounter Social History Tobacco Use Types Packs/Day Years Used Date Smoking Tobacco: Former Cigarettes 0.8 52 S tarted: 1970 Smokeless Tobacco: Never Alcohol Use Standard Drinks/Week [...] as of this encounter Miscellaneous Notes * Addendum Note - Abbey Sarabia RP - 06/14/2023 1:02 PM EDTAddended by: ABBEY SARABIA on: 06/14/2023 01:02 PM Modules accepted: Orders * Addendum Note - Abbey Sarabia RPh - 06/05/2023 2:14 PM EDTAddended by: ABBEY SARABIA on: 06/05/2023 02:14 PM Modules accepted: Orders documented in this encounter Plan of Treatment Upcoming Encounters Date Type Specialty Care Team Description 06/21/2023 Office Visit Hematology Oncology Hesham Bray MD [address] [place] [address] 06/28/2023 Pharmacy Pharmacy [facility] [place] Hem/Onc [address] [place] [address] 07/21/2023 Office Visit Gastroenterology Vianey Corrigan, DAVID [address] [place] [address] Health Maintenance Due Date Last Done Comments [...] Not on filedocumented as of this encounter Results * (ABNORMAL) COMPREHENSIVE METABOLIC PANEL (06/07/2023 11:35 AM EDT) BUN 25(H) 6 - 20 mg/dL 06/07/2023 12:00 PM EDT [facility] 56-02 Creatinine 0.9 0.5 - 1.0 mg/dL 06/07/2023 12:00 PM EDT [facility] 56-02 Estimated Glomerular Filtration Rate 69 >=60 mL/min 06/07/2023 12:00 PM EDT [facility] 56-02 Comment:eGFR is calculated b ased on the CKD-EPI 2020 equation Sodium 129(L) 135 - 146 mmol/L 06/07/2023 12:00 PM EDT [facility] 56-02 Potassium 4.5 3.5 - 5.1 mmol/L 06/07/2023 12:00 PM EDT [facility] 56 Chloride 95(L) 98 - 107 mmol/L 06/07/2023 12:00 PM EDT [facility] 56 CO2 25 22 - 32 mmol/L 06/07/2023 12:[address] Anion Gap 9 7 - 15 mmol/L 06/07/2023 12:[address]T [address] Glucose 96 70 - 120 mg/dL 06/07/2023 12:[address] PM EDT [address] Albumin 3.5(L) 3.8 - 5.0 g/dL 06/07/2023 12:[address] AST 19 10 - 35 U/L 06/07/2023 12:[address] PM EDT [address] Alkaline Phosphatase 294(H) 35 - 130 U/L 06/07/2023 12:[address] PM [address]T [address] Bilirubin, Total 0.8 <=1.2 mg/dL 06/07/2023 12:[address] PM EDT [address] Calcium 9.6 8.4 - 10.2 mg/dL 06/07/2023 12:00 PM EDT [address] Protein 7.8 6.0 - 8.3 g/dL 06/07/2023 12:00 PM EDT [facility] 56 ALT 37(H) 10 - 35 U/L 06/07/2023 12:00 PM T [facility] 56 Blood Venous blood specimen / Unknown Venipuncture / Unknown 06/07/2023 11:35 AM EDT 06/07/2023 11:35 AM EDT Hesham Bray MD LAB BLOOD ORDERA BLES [facility] [address]- [address] [place] [address] documented in this encounter Visit Diagnoses Diagnosis 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)- Primary documented in this encounter Advance Directives Documents on File Type Date Recorded Patient Field Service Representative Expl anation Advance Directives and Living Will 06/24/2022 ADVANCE DIRECTIVE / LIVING WILL Power of Legal Operations Manager 06/24/2022 POWER OF A TTORNEY Latest Code Status on File Code Status Date Activated Date Inactivated Comments No Code 03/20/2023 1:42 AM 03/21/2023 5:59 PM This order reflects the patients wishes and were consensually agreed upon. Question Answer Comments Discussion of Advance Directives occurred with: Patient
--- OUTSIDE RECORDS SUMMARY | 2023-07-05 14:42 | External Medical Summary | Summary of Care ---
Author Name Unknown Organization [facility] Address [address] [place] [address] Phone [phone] Care Team Providers Care Nurse Aide Evaluator Name Role Phone Unavailable Primary Care Provider Unavailabl e Encounter Details Date Type Department Care Team Description 06/07/2023 Telephone Hematology/Oncology [facility] [address] [facility] [place] [address] Services, Scheduling [address] [place] [address] Allergies No known active allergiesdocumented as of this encounter (statuses as of 06/07/2023) Medications Medication Sig Dispensed Refills Start Date [...] as of this encounter (statuses as of 06/07/2023) Active Problems Problem Noted Date Primary cancer [...] as of this encounter (statuses as of 06/07/2023) Resolved Problems Problem Noted Date Resolved Date Encounter for examination fo r normal comparison and control in clinical research program 11/21/2017 06/01/2020 Overview: DO NOT DELETE [facility] Study: Project # [id number], Animal Hospital Clerk: Khadar Dodd, PhD. SUMMARY: Goal: Establish test [...] contact study staff at ; after hours Animal Hospital Clerk via the [facility] hospital chlorine operator . Please contact study team before resolving/deleting from patients problem list. Study phone number: [phone]. Diagnosis changed due to Research Module. Go to Snapshot for study details. Encounter for examination fo r normal comparison and control in clinical research program 11/21/2017 06/30/2022 Overview: DO NOT DELETE - [facility] Study: Project # [id number], Animal Hospital Clerk: Mykel Gill, MS, MPH. SUMMARY: Goal: Establish [...] contact study staff at ; after hours Animal Hospital Clerk via the [facility] hospital chlorine operator . - Please contact study team before resolving/deleting from patients problem list. Study phone number: [phone]. Diagnosis changed due to Research Module. Go to Snapshot for study details. documented as of this encounter (statuses as of 06/07/2023) Immunizations Name Administration Dates Next Due Covid-19 [...] (15 years old or older) No 03/20/20 23 Cognitive Status Response Date of Assessm ent Because of a physical, menta l, or emotional condition, do you have serious difficulty concentrating, remembering, or making decisions? (5 years old or older No 03/20/2023 documented as of this encounter Miscellaneous Notes * Telephone Encounter - Shavon Garza RN - 06/07/2023 2:40 PM EDT See other encounter. * Telephone Encounter - KRISTA Evangelista - 06/07/2023 2:07 PM EDT We received a call from Reba Khan's daughter. She is concerned about her mothers lab results that were drawn earlier today. She would like to speak with a nurse in regards to these sometime today if doable. Please give Erin a call at your earliest convenience at [phone] Thank you! documented in this encounter Plan of Treatment Upcoming Encounters Date Type Specialty Care Team Description 06/08/2023 Pharmacy Pharmacy [facility] Hem/Onc [address] [place] [facility] [place] [address] 06/14/2023 Laboratory Laboratory [facility] [address] [place] [address] 06/21/2023 Office Visit Hematology Oncology Hesham Bray MD [address] [place] [address] 07/21/2023 Office Visit Gastroenterology Vianey Corrigan CRNP [address] [place] [address] Health Maintenance Due Date Last Done Comments [...] Documents on File Type Date Recorded Patient Board Turner Expl anation Advance Directives and Living Will 06/24/2022 ADVANCE DIRECTIVE / LIVING WILL Power of Fell Cutter 06/24/2022 POWER OF A TTORNEY Latest Code Status on File Code Status Date Activated Date Inactivated Comments No Code 03/20/2023 1:42 AM 03/21/2023 5:59 PM This order reflects the patients wishes and were consensually agreed upon. Question Answer Comments Discussion of Advance Directives occurred with: Patient
--- OUTSIDE RECORDS SUMMARY | 2023-07-05 14:42 | External Medical Summary ---
Author Name Unknown Address Unknown Organization [id number]:[facility] [place] [address] Laboratory Report Ordering Provider Test Date Status BERTO ALAS 06/14/2023 09:36:22 Final Observation Date Value Abnormality Reference (Units ) Status WBC, Total 06/14/2023 09:36:22 10.18 4.00-10.8 0 (K/uL) Final RBC 06/14/2023 09:36:22 3.66 3.85-5.15 (M/uL) Final Hemoglobin 06/14/2023 09:36:22 10.0 Below low normal 12 .0-15.3 (g/dL) Final HCT 06/14/2023 09:36:22 32.0 Below low normal 36. 0-45.2 (%) Final MCV 06/14/2023 09:36:22 87.4 81.5-97.5 (fL) Final MCH 06/14/2023 09:36:22 27.3 27.0-34.0 (pg) Final MCHC 06/14/2023 09:36:22 31.3 32.0-36.0 (g/dL) Final RDW 06/14/2023 09:36:22 19.0 11.5-15.5 (%) Final Platelets 06/14/2023 09:36:22 441 Above high normal 14 0-400 (K/uL) Final MPV 06/14/2023 09:36:22 8.6 6.6-11.1 ( fL) Final Performing Location [facility] [place] [address]
--- OUTSIDE RECORDS SUMMARY | 2023-07-05 14:42 | External Medical Summary ---
Author Name Unknown Address Unknown Organization K01:LAB[facility]ATORY [facility] - [address] [place] [address] Laboratory Report Ordering Provider Test Date Status NESS PADILLA 06/07/2023 11:35:39 Final Observation Date Value Abnormality Reference (Units ) Status Iron 06/07/2023 11:35:39 28 Below low normal 33-151 (ug/dL) Final Iron-binding capacity 06/07/2023 11:35:39 305 250-425 (ug/dL) Final Transferrin Sat % 06/07/2023 11:35:39 9 Below low normal 15-55 (%) Final Performing Location LAB[facility]ATORY [facility] - [address] [place] [address]
--- OUTSIDE RECORDS SUMMARY | 2023-07-05 14:42 | External Medical Summary | Summary of Care ---
Author Name Unknown Organization [facility] Address [address] [place] [address] Phone [phone] Care Team Providers Care Newspaper Managing Editor Name Role Phone Unavailable Primary Care Provider Unavailabl e Reason for Visit * Reason Comments Outpatient Testing Encounter Details Date Type Department Care Team Description 06/14/2023 Laboratory Laboratory [facility] [address] [place] [id number] [facility] [address] [place] [address] Primary cancer of left upper lobe of [...] program 11/21/2017 06/01/2020 Overview: DO NOT DELETE [facility] DETECT Study: Project # [id number], Technical Marketing Engineer: Khadar Dodd, PhD. SUMMARY: Goal: Establish test [...] contact study staff at ; after hours Technical Marketing Engineer via the [facility] hospital payloader operator . Please contact study team before resolving/deleting from patients problem list. Study phone number: [phone]. Diagnosis changed due to Research Module. Go to Snapshot for study details. Encounter for examination fo r normal comparison and control in clinical research program 11/21/2017 06/30/2022 Overview: DO NOT DELETE - [facility] DETECT Study: Project # [id number], Technical Marketing Engineer: Mykel Gill, MS, MPH. SUMMARY: Goal: Establish [...] contact study staff at ; after hours Technical Marketing Engineer via the [facility] hospital payloader operator . - Please contact study team before resolving/deleting from patients problem list. Study phone number: [phone]. Diagnosis changed due to Research Module. Go [...] Oncology Katarina, Hesham Seals MD [address] [place] [address] 07/21/2023 Office Visit Gastroenterology Vianey Corrigna CRNP [address] [place] [address] Pending Results Name Type Priority Associated Diagnoses Date /Time COMPREHENSIVE METABOLIC PANEL Lab STAT 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) 06/14/2023 9:36 AM EDT Health Maintenance Due Date Last [...] Date/Time Associated Diagnosis Comments DIFFERENTIAL, AUTOMATED STAT 06/14/2023 9:36 AM EDT 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) CBC WITH WBC DIFFERENTIAL STAT 06/14/2023 9:36 AM EDT 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) CBC STAT 06/14/2023 9:36 AM EDT 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) documented in this encounter Results * (ABNORMAL) DIFFERENTIAL, AUTOMATED (06/14/2023 9:36 AM EDT) WBC 10.18 4.00 - 10.80 K/uL 06/14/2023 9:40 AM EDT [facility] 56-02 Neutrophils % 61.2 40.0 - 75.0 % 06/14/2023 9:40 AM EDT [facility] 56-02 Lymphocytes % 20.0 18.0 - 42.0 % 06/14/2023 9:40 AM EDT [facility] 56-02 Monocytes % 15.0(H) 1.0 - 11.0 % 06/14/2023 9:40 AM EDT [facility] 56-02 Eosinophils % 3.5 0.0 - 6.0 % 06/14/2023 9:40 AM EDT [facility] 56-02 Basophils % 0.3 0.0 - 2.0 % 06/14/2023 9:40 AM EDT [facility] 56-02 Absolute Neutrophils 6.22 1.80 - 7.70 K/uL 06/14/2023 9:40 AM EDT [facility] 56-02 Absolute Lymphocytes 2.04 1.00 - 4.80 K/ul 06/14/2023 9:40 AM EDT LAB[facility]ORY [facility] 56-02 Absolute Monocytes 1.53(H) 0.00 - 1.10 K/uL 06/14/2023 9:40 AM EDT [facility] 56-02 Absolute Eosinophils 0.36 0.00 - 0.70 K/uL 06/14/2023 9:40 AM EDT [facility] 56 Absolute Basophils 0.03 0.00 - 0.20 K/uL 06/14/2023 9:40 AM EDT [facility] Blood Venous blood specimen / Unknown Venipuncture / Unknown 06/14/2023 9:36 AM EDT 06/14/2023 9:36 AM EDT Traci Mitchell MD LAB BLOOD ORDERABLES [facility] [address] [place] [address] * (ABNORMAL) CBC (06/14/2023 9:36 AM EDT) WBC 10.18 4.00 - 10.80 K/uL 06/14/2023 9:40 AM EDT [place] [address] RBC 3.66 3.85 - 5.15 M/uL 06/14/2023 9:40 AM EDT [place] [address] HGB 10.0(L) 12.0 - 15.3 g/dL 06/14/2023 9:40 AM EDT [facility] HCT 32.0(L) 36.0 - 45.2 % 06/14/2023 9:40 AM EDT [facility] MCV 87.4 81.5 - 97.5 fL 06/14/2023 9:40 AM EDT [facility] MCH 27.3 27.0 - 34.0 pg 06/14/2023 9:40 AM EDT [facility] MCHC 31.3 32.0 - 36.0 g/dL 06/14/2023 9:40 AM EDT [facility] RDW 19.0 11.5 - 15.5 % 06/14/2023 9:40 AM EDT [facility] PLT 441(H) 140 - 400 K/uL 06/14/2023 9:40 AM EDT [facility] MPV 8.6 6.6 - 11.1 fL 06/14/2023 9:40 AM EDT [facility] 56 Blood Venous blood specimen / Unknown Venipuncture / Unknown 06/14/2023 9:36 AM EDT 06/14/2023 9:36 AM EDT Traci Mitchell MD LAB BLOOD ORDERABLES Performing Organization Address City/State/[facility] Co de Phone Number [facility] [address]- [address] [place] [address] documented in this encounter Visit Diagnoses Diagnosis 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) documented in this encounter Advance Directives Documents on File Type Date Recorded Patient Card Cutter Helper Expl anation Advance Directives and Living Will 06/24/2022 ADVANCE DIRECTIVE / LIVING WILL Power of Tax Accounting Manager 06/24/2022 POWER OF A TTORNEY Latest Code Status on File Code Status Date Activated Date Inactivated Comments No Code 03/20/2023 1:42 AM 03/21/2023 5:59 PM This order reflects the patients wishes and were consensually agreed upon. Question Answer Comments Discussion of Advance Directives occurred with: Patient
--- OUTSIDE RECORDS SUMMARY | 2023-07-05 14:42 | External Medical Summary | Summary of Care ---
Author Name Unknown Organization [facility] Address [address] [place] [address] Phone [phone] Care Team Providers Care Terminal Gauger Supervisor Name Role Phone Unavailable Primary Care Provider Unavailabl e Reason for Visit * Reason Comments Outpatient Testing Encounter Details Date Type Department Care Team Description 06/07/2023 Laboratory Laboratory [facility] [address] [facility] [place] [id number] [facility] 200 [facility] [address] 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); Bilateral pulmonary embolism (HCC); Anemia due to folic acid deficiency, unspecified deficiency type Allergies No known active allergiesdocumented as of [...] 11/21/2017 06/01/2020 Overview: DO NOT DELETE [facility] DETECT Study: Project # [id number], Tattoo And Body Artist: Khadar Dodd, PhD. SUMMARY: Goal: Establish test [...] contact study staff at ; after hours Tattoo And Body Artist via the [facility] hospital long distance billing operator . Please contact study team before resolving/deleting from patients problem list. Study phone number: [phone]. Diagnosis changed due to Research Module. Go to Snapshot for study details. Encounter for examination fo r normal comparison and control in clinical research program 11/21/2017 06/30/2022 Overview: DO NOT DELETE - [employer] DETECT Study: Project # [id number], Tattoo And Body Artist: Mykel Gill, MS, MPH. SUMMARY: Goal: Establish [...] contact study staff at ; after hours Tattoo And Body Artist via the [facility] hospital long distance billing operator . - Please contact study team before resolving/deleting from patients problem list. Study phone number: [phone]. Diagnosis changed due to Research Module. Go [...] Specialty Care Team Description 06/08/2023 Pharmacy Pharmacy [facility]c [address] [place] [facility] [address] 06/14/2023 Laboratory Laboratory Moriah Cabrera [address] [place] [address] 06/21/2023 Office Visit Hematology Oncology KatarinaHesham MD [address] [place] [address] 07/21/2023 Office Visit Gastroenterology Vianey Corrigan CRNP [address] [place] [address] Pending Results Name Type Priority Associated Diagnoses Date /Time FERRITIN Lab Routine 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) Bilateral pulmonary embolism (HCC) 06/07/2023 11:35 AM EDT FOLIC ACID Lab Routine 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) Bilateral pulmonary embolism (HCC) Anemia due to folic acid deficiency, unspecified deficiency type 06/07/2023 11:35 AM EDT IRON SCREEN, INCLUDING TIBC Lab Routine 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) Bilateral pulmonary embolism (HCC) 06/07/2023 11:35 AM EDT LD Lab Routine 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) Bilateral pulmonary embolism (HCC) 06/07/2023 11:35 AM EDT COMPREHENSIVE METABOLIC PANEL Lab STAT 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) 06/07/2023 11:35 AM EDT Health Maintenance Due Date Last [...] Date/Time Associated Diagnosis Comments DIFFERENTIAL, AUTOMATED STAT 06/07/2023 11:35 AM EDT 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) CBC WITH WBC DIFFERENTIAL STAT 06/07/2023 11:35 AM EDT 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) CBC STAT 06/07/2023 11:35 AM EDT 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) documented in this encounter Results * (ABNORMAL) DIFFERENTIAL, AUTOMATED (06/07/2023 11:35 AM EDT) WBC 8.02 4.00 - 10.80 K/uL 06/07/2023 11:39 AM EDT [facility] 56-02 Neutrophils % 60.3 40.0 - 75.0 % 06/07/2023 11:39 AM EDT [facility] 56 Lymphocytes % 21.6 18.0 - 42.0 % 06/07/2023 11:39 AM EDT [facility] 56 Monocytes % 15.0(H) 1.0 - 11.0 % 06/07/2023 11:39 AM EDT [facility] 56 Eosinophils % 2.7 0.0 - 6.0 % 06/07/2023 11:39 AM EDT [facility] 56 Basophils % 0.4 0.0 - 2.0 % 06/07/2023 11:39 AM EDT [facility] 56 Absolute Neutrophils 4.84 1.80 - 7.70 K/uL 06/07/2023 11:39 AM EDT [facility] 56 Absolute Lymphocytes 1.73 1.00 - 4.80 K/ul 06/07/2023 11:39 [address] EDT [address] Absolute Monocytes 1.20(H) 0.00 - 1.10 K/uL 06/07/2023 11:39 [address] EDT [address] Absolute Eosinophils 0.22 0.00 - 0.70 K/uL 06/07/2023 11:39 AM EDT [facility] 5[address] Absolute Basophils 0.03 0.00 - 0.20 K/uL 06/07/2023 11:39 AM EDT [facility] 56 Blood Venous blood specimen / Unknown Venipuncture / Unknown 06/07/2023 11:35 AM EDT 06/07/2023 11:35 AM EDT Hesham Bray MD LAB BLOOD ORDERA BLES [facility] [address]- [address] [place] [address] * (ABNORMAL) CBC (06/07/2023 11:35 AM EDT) [facility] WBC 8.02 4.00 - 10.80 K/uL 06/07/2023 11:39 AM EDT [facility] 56 RBC 3.82 3.85 - 5.15 M/uL 06/07/2023 11:39 AM EDT [place] [address] HGB 10.5(L) 12.0 - 15.3 g/dL 06/07/2023 11:[address] HCT 33.2(L) 36.0 - 45.2 % 06/07/2023 11:39 AM EDT [place] [address] MCV 86.9 81.5 - 97.5 fL 06/07/2023 11:[address] MCH 27.5 27.0 - 34.0 pg 06/07/2023 11:39 AM EDT [place] [address] MCHC 31.6 32.0 - 36.0 g/dL 06/07/2023 11:[address] RDW 20.7 11.5 - 15.5 % 06/07/2023 11:39 AM EDT [place] [address] PLT 401(H) 140 - 400 K/uL 06/07/2023 11:39 AM EDT [place] [address] MPV 8.8 6.6 - 11.1 fL 06/07/2023 11:39 AM T [place] [address] Blood Venous blood specimen / Unknown Venipuncture / Unknown 06/07/2023 11:35 AM EDT 06/07/2023 11:35 AM EDT Hesham Bray MD LAB BLOOD ORDERA BLES [place] [address] [place] [address] documented in this encounter Visit Diagnoses Diagnosis 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) Bilateral pulmonary embolism (HCC) Other pulmonary embolism and infarction Anemia due to folic acid deficiency, unspecified deficiency type documented in this encounter Advance Directives Documents on File Type Date Recorded Patient Recreation Therapy Director Expl anation Advance Directives and Living Will 06/24/2022 ADVANCE DIRECTIVE / LIVING WILL Power of Mainframe Software Developer 06/24/2022 POWER OF A TTORNEY Latest Code Status on File Code Status Date Activated Date Inactivated Comments No Code 03/20/2023 1:42 AM 03/21/2023 5:59 PM This order reflects the patients wishes and were consensually agreed upon. Question Answer Comments Discussion of Advance Directives occurred with: Patient
--- OUTSIDE RECORDS SUMMARY | 2023-07-05 14:42 | External Medical Summary ---
Author Name Unknown Address Unknown Organization K09:[facility] [place] [address] Laboratory Report Ordering Provider Test Date Status BERTO ALAS 06/14/2023 09:36:22 Final Observation Date Value Abnormality Reference (Units ) Status BUN 06/14/2023 09:36:22 22 Above high normal 6-20 (mg/dL) Final Creatinine 06/14/2023 09:36:22 0.8 0.5-1.0 (mg/dL) Final Glomerular filtration rate/1.73 sq M.predicted [Volume Rate/Area] in Serum, Plasma or Blood by Creatinine-based formula (CKD-EPI) 06/14/2023 09:36:22 74 >=60 (mL/min) Final Performing Location [facility] [place] [address]
--- OUTSIDE RECORDS SUMMARY | 2023-07-05 14:42 | External Medical Summary ---
Author Name Unknown Address Unknown Organization K09:[facility] [place] [address] Laboratory Report Ordering Provider Test Date Status BERTO ALAS 06/14/2023 09:36:22 Final Observation Date Value Abnormality Reference (Units ) Status SYNC LEUKOCYTES IN BLOOD BY AUTOMATED COUNT 06/14/2023 09:36:22 10.18 4.00-10.80 (K/uL) Final Segs 06/14/2023 09:36:22 61.2 40.0-75.0 (%) Final Lymphs % 06/14/2023 09:36:22 20.0 18.0-42.0 (%) Final Monos 06/14/2023 09:36:22 15.0 Above high normal 1.0-11.0 (%) Final Eosinophils 06/14/2023 09:36:22 3.5 0.0-6.0 (%) Final Basos 06/14/2023 09:36:22 0.3 0.0-2.0 (%) Final Absolute Segs 06/14/2023 09:36:22 6.22 1.80-7.70 (K/uL) Final Lymphs, absolute 06/14/2023 09:36:22 2.04 1.00-4.80 (K/ul) Final Monos, Abs 06/14/2023 09:36:22 1.53 Above high normal 0.00-1.10 (K/uL) Final Eos, Abs 06/14/2023 09:36:22 0.36 0.00-0.70 (K/uL) Final Basos, Abs 06/14/2023 09:36:22 0.03 0.00-0.20 (K/uL) Final Performing Location [facility] [place] [address]
--- OUTSIDE RECORDS SUMMARY | 2023-07-05 14:42 | External Medical Summary ---
Author Name Unknown Address Unknown Organization K01:[facility] - [address] [place] [address] Laboratory Report Ordering Provider Test Date Status NESS PADILLA 06/07/2023 11:35:39 Final Observation Date Value Abnormality Reference (Units ) Status Ferritin 06/07/2023 11:35:39 370 Above high normal 13 -150 (ng/mL) Final Performing Location [facility] - [address] [place] [address]
--- OUTSIDE RECORDS SUMMARY | 2023-07-05 14:43 | External Medical Summary | Summary of Care ---
Author Name Unknown Organization [facility] Address [address] [place] [address] Phone [phone] Care Team Providers Care Spooler Operator Name Role Phone Unavailable Primary Care Provider Unavailabl e Encounter Details Date Type Department Care Team Description 06/01/2023 Orders Only Hematology/Oncology, [facility] [address] [place], [place] [id number] Hesham Bray MD [address] [place] [address] Allergies No known active allergiesdocumented as of this encounter (statuses as of 06/01/2023) Medications Medication Sig Dispensed Refills Start Date [...] 1 05/13/2023 Active Sotorasib 120 MG Oral TabletIndications: 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 With or without food. 240 Tablet 2 05/23/2023 Active documented as of this encounter (statuses as of 06/01/2023) Active Problems Problem Noted Date Primary cancer [...] as of this encounter (statuses as of 06/01/2023) Resolved Problems Problem Noted Date Resolved Date Encounter for examination fo r normal comparison and control in clinical research program 11/21/2017 06/01/2020 Overview: DO NOT DELETE [facility] AREN Study: Project # [id number], Production Team Leader: Khadar Dodd, PhD. SUMMARY: Goal: Establish test [...] contact study staff at ; after hours Production Team Leader via the [facility] power shear operator . Please contact study team before resolving/deleting from patients problem list. Study phone number: [phone]. Diagnosis changed due to Research Module. Go to Snapshot for study details. Encounter for examination fo r normal comparison and control in clinical research program 11/21/2017 06/30/2022 Overview: DO NOT DELETE - [facility] DETECT Study: Project # [id number], Production Team Leader: Mykel Gill, MS, MPH. SUMMARY: Goal: Establish [...] contact study staff at ; after hours Production Team Leader via the [facility] power shear operator . - Please contact study team before resolving/deleting from patients problem list. Study phone number: [phone]. Diagnosis changed due to Research Module. Go to Snapshot for study details. 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)* 06/05/2023 Pharmacy Pharmacy [facility] Hem/Onc [facility] [place] [address] 06/08/2023 Pharmacy Pharmacy [facility] Hem/Onc [address] [place] [address] 06/14/2023 Laboratory [facility] [place], Lab Scenery [address] [place] [address] 06/21/2023 Office Visit Hematology Oncology Hesham Bray MD [address] [place] [address] 07/21/2023 Office Visit Gastroenterology Vianey Corrigan CRNP [address] [facility] [place] [address] Health Maintenance Due Date Last Done Comments [...] Documents on File Type Date Recorded Patient Quality Assurance Assessor Expl anation Advance Directives and Living Will 06/24/2022 ADVANCE DIRECTIVE / LIVING WILL Power of Rigger Apprentice 06/24/2022 POWER OF A TTORNEY Latest Code Status on File Code Status Date Activated Date Inactivated Comments No Code 03/20/2023 1:42 AM 03/21/2023 5:59 PM This order reflects the patients wishes and were consensually agreed upon. Question Answer Comments Discussion of Advance Directives occurred with: Patient
--- OUTSIDE RECORDS SUMMARY | 2023-07-05 14:43 | External Medical Summary | Summary of Care ---
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 With or without food. 120 Tablet 5 06/05/2023 Active documented as of this encounter (statuses as of 06/05/2023) Active Problems Problem Noted Date Primary cancer [...] as of this encounter (statuses as of 06/05/2023) Resolved Problems Problem Noted Date Resolved Date Encounter for examination fo r normal comparison and control in clinical research program 11/21/2017 06/01/2020 Overview: DO NOT DELETE [facility] DETECT Study: Project # [id number], Milk Hauler: Khadar Dodd, PhD. SUMMARY: Goal: Establish test [...] contact study staff at ; after hours Milk Hauler via the [facility] equipment operator wage hand . Please contact study team before resolving/deleting from patients problem list. Study phone number: [phone]. Diagnosis changed due to Research Module. Go to Snapshot for study details. Encounter for examination fo r normal comparison and control in clinical research program 11/21/2017 06/30/2022 Overview: DO NOT DELETE - [facility] DETECT Study: Project # [id number], Milk Hauler: Mykel Gill, MS, MPH. SUMMARY: Goal: Establish [...] contact study staff at ; after hours Milk Hauler via the [facility] equipment operator wage hand . - Please contact study team before resolving/deleting from patients problem list. Study phone number: [phone]. Diagnosis changed due to Research Module. Go to Snapshot for study details. documented as of this encounter (statuses as of 06/05/2023) Immunizations Name Administration Dates Next Due Covid-19 [...] Notes * Addendum Note - Abbey Sarabia RPh - 06/05/2023 2:14 PM EDTAddended by: ABBEY SARABIA on: 06/05/2023 02:14 PM Modules accepted: Orders documented in this encounter Plan of Treatment Upcoming Encounters Date Type Specialty Care Team Description 06/08/2023 Pharmacy Pharmacy [facility] Hem/Onc [address] [facility] [place] [address] 06/14/2023 Laboratory Laboratory Moriah Cabrera [address] [facility] [place] [address] 06/21/2023 Office Visit Hematology Oncology Hesham Bray MD [address] [place] [address] 07/21/2023 Office Visit Gastroenterology Vianey Corrigan CRNP [address] [place] [address] Scheduled Orders Name Type Priority Associated Diagnoses Orde r Schedule CBC WITH WBC DIFFERENTIAL Lab STAT 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) Expected: 06/07/2023, Expires: 07/02/2023 COMPREHENSIVE METABOLIC PANEL Lab STAT 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 Question Answer Comments Discussion of Advance Directives occurred with: Patient
--- OUTSIDE RECORDS SUMMARY | 2023-07-05 14:43 | External Medical Summary ---
Author Name Unknown Address Unknown Organization K01:[facility] - [address] [facility] [address] Laboratory Report Ordering Provider Test Date Status NESS PADILLA 06/07/2023 11:35:39 Final Observation Date Value Abnormality Reference (Units ) Status Folic Acid 06/07/2023 11:35:39 14.9 >4.5 (ng/ mL) Final Performing Location [facility] - [address] [facility] [address]
--- OUTSIDE RECORDS SUMMARY | 2023-07-05 14:43 | External Medical Summary ---
Author Name Unknown Address Unknown Organization K09:[facility] [place] [address] Laboratory Report Ordering Provider Test Date Status NESS PADILLA 06/07/2023 11:35:39 Final Observation Date Value Abnormality Reference (Units ) Status WBC, Total 06/07/2023 11:35:39 8.02 4.00-10.8 0 (K/uL) Final RBC 06/07/2023 11:35:39 3.82 3.85-5.15 (M/uL) Final Hemoglobin 06/07/2023 11:35:39 10.5 Below low normal 12 .0-15.3 (g/dL) Final HCT 06/07/2023 11:35:39 33.2 Below low normal 36. 0-45.2 (%) Final MCV 06/07/2023 11:35:39 86.9 81.5-97.5 (fL) Final MCH 06/07/2023 11:35:39 27.5 27.0-34.0 (pg) Final MCHC 06/07/2023 11:35:39 31.6 32.0-36.0 (g/dL) Final RDW 06/07/2023 11:35:39 20.7 11.5-15.5 (%) Final Platelets 06/07/2023 11:35:39 401 Above high normal 14 0-400 (K/uL) Final MPV 06/07/2023 11:35:39 8.8 6.6-11.1 ( fL) Final Performing Location [facility] [place] [place] [address]
--- OUTSIDE RECORDS SUMMARY | 2023-07-05 14:43 | External Medical Summary | Summary of Care ---
Author Name Unknown Organization [facility] Address [address] [place] [address] Phone [phone] Care Team Providers Care Natural Resources Professor Name Role Phone Unavailable Primary Care Provider Unavailabl e Encounter Details Date Type Department Care Team Description 05/05/2023 Telephone Family Practice [facility] [address] [place] [address] Gabby Balderas, [address] [place] [address] Allergies No known active allergiesdocumented as of this encounter (statuses as of 06/06/2023) Medications Medication Sig Dispensed Refills Start Date [...] for Nausea. 30 Tablet 3 04/25/2023 Active Omeprazole 20 MG Oral Capsule Delayed Release (PriLOSEC)Indicati ons:Gastroesophage al reflux disease, unspecified whether esophagitis present,Anemia, unspecified type Take 1 Capsule by mouth in the morning. 1 hour before the first meal of the day. 30 Capsule 1 03/17/2023 05/10/2023 Discontinued (Medication List Clean Up) Vitron-C 65-125 MG Oral Tablet (Iron-Vitamin C 65-125 mg per tab)Indications:Ot her iron deficiency anemia Take 1 Tablet by mouth in the morning and 1 Tablet before bedtime. For iron supplement, generic, take with food. 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 60 Tablet 2 03/30/2023 05/13/2023 Discontinued (Refill) Sulfamethoxazole-T rimethoprim 800-160 MG Oral Tablet (Bactrim DS) Take 1 Tablet by mouth in the morning and 1 Tablet before bedtime. 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 With or without food. 240 Tablet 2 04/25/2023 05/23/2023 Discontinued (Refill) documented as of this encounter (statuses as of 06/06/2023) Active Problems Problem Noted Date Primary cancer [...] as of this encounter (statuses as of 06/06/2023) Resolved Problems Problem Noted Date Resolved Date Encounter for examination fo r normal comparison and control in clinical research program 11/21/2017 06/01/2020 Overview: DO NOT DELETE [facility] DETECT Study: Project # [id number], Louver Door Assembler: Khadar Dodd, PhD. SUMMARY: Goal: Establish test [...] contact study staff at ; after hours Louver Door Assembler via the [facility] circular shear operator . Please contact study team before resolving/deleting from patients problem list. Study phone number: [phone]. Diagnosis changed due to Research Module. Go to Snapshot for study details. Encounter for examination fo r normal comparison and control in clinical research program 11/21/2017 06/30/2022 Overview: DO NOT DELETE [facility] Study: Project # [id number], Louver Door Assembler: Mykel Gill, MS, MPH. SUMMARY: Goal: Establish [...] contact study staff at ; after hours Louver Door Assembler via the [facility] circular shear operator . - Please contact study team before resolving/deleting from patients problem list. Study phone number: [phone]. Diagnosis changed due to Research Module. Go to Snapshot for study details. documented as of this encounter (statuses as of 06/06/2023) Immunizations Name Administration Dates Next Due Covid-19 [...] Specialty Care Team Description 06/08/2023 Pharm[place] [facility] [facility] [place] Hem/Onc [address] [place] [address] 06/14/2023 Laboratory Laboratory Moriah Cabrera [address] [place] [address] 06/21/2023 Office Visit Hematology Oncology Hesham Bray MD [address] [place] [address] 07/21/2023 Office Visit Gastroenterology Vianey Corrigan CRNP [address] [place] [address] Health Maintenance Due Date Last Done Comments [...] Documents on File Type Date Recorded Patient Refractory Mixer Expl anation Advance Directives and Living Will 06/24/2022 ADVANCE DIRECTIVE / LIVING WILL Power of Sequencing Machine Operator 06/24/2022 POWER OF A TTORNEY Latest Code Status on File Code Status Date Activated Date Inactivated Comments No Code 03/20/2023 1:42 AM 03/21/2023 5:59 PM This order reflects the patients wishes and were consensually agreed upon. Question Answer Comments Discussion of Advance Directives occurred with: Patient
--- OUTSIDE RECORDS SUMMARY | 2023-07-05 14:43 | External Medical Summary ---
Author Name Unknown Address Unknown Organization K09:[facility] [place] [address] Laboratory Report Ordering Provider Test Date Status PADILLANEDRANESS 06/07/2023 11:35:39 Final Observation Date Value Abnormality Reference (Units ) Status BUN 06/07/2023 11:35:39 25 Above high normal 6-20 (mg/dL) Final Creatinine 06/07/2023 11:35:39 0.9 0.5-1.0 (mg/dL) Final Glomerular filtration rate/1.73 sq M.predicted [Volume Rate/Area] in Serum, Plasma or Blood by Creatinine-based formula (CKD-EPI) 06/07/2023 11:35:39 69 >=60 (mL/min) Final Performing Location [facility] [place] [address]
--- OUTSIDE RECORDS SUMMARY | 2023-07-05 14:43 | External Medical Summary | Summary of Care ---
Author Name Unknown Organization [facility] Address [address] [place] [address] Phone [phone] Care Team Providers Care Lobby Concierge Name Role Phone Unavailable Primary Care Provider Unavailabl e Encounter Details Date Type Department Care Team Description 06/01/2023 Orders Only Hematology/Oncology Sanjiv Cabrera [place] [address] [facility] [place] [address] Hesham Bray MD [address] [facility] [place] [address] Primary cancer of left upper lobe of [...] Overview: DO NOT DELETE [facility] Study: Project # [id number], Theater Usher: Khadar Dodd, PhD. SUMMARY: Goal: Establish test [...] contact study staff at ; after hours Theater Usher via the [facility] garnett machine operator helper . Please contact study team before resolving/deleting from patients problem list. Study phone number: [phone]. Diagnosis changed due to Research Module. Go to Snapshot for study details. Encounter for examination fo r normal comparison and control in clinical research program 11/21/2017 06/30/2022 Overview: DO NOT DELETE - [facility] DETECT Study: Project # [id number], Theater Usher: Mykel Gill, MS, MPH. SUMMARY: Goal: Establish [...] contact study staff at ; after hours Theater Usher via the [facility] hospital garnett machine operator helper . - Please contact study team before resolving/deleting from patients problem list. Study phone number: [phone]. Diagnosis changed due to Research Module. 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)* 06/05/2023 Pharmacy Pharmacy [facility] Hem/Onc [address] [place] [address] 06/08/2023 Pharmacy Pharmacy [facility] Hem/Onc [address] [place] [address] 06/14/2023 Laboratory Laboratory [place], Lab Scenery [address] [place] [address] 06/21/2023 Office Visit Hematology Oncology Hesham Bray MD [address] [place] [address] 07/21/2023 Office Visit Gastroenterology Vianey Corrigan CRNP [address] [facility] [place] [address] Scheduled Orders Name Type Priority Associated Diagnoses [...] left upper lobe of lung (HCC)- Primary 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)- Primary documented in this encounter Advance Directives Documents on File Type Date Recorded 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 Question Answer Comments Discussion of Advance Directives occurred with: Patient
--- OUTSIDE RECORDS SUMMARY | 2023-07-05 14:43 | External Medical Summary | Summary of Care ---
Author Name Unknown Organization [facility] Address [address] [place] [address] Phone [phone] Care Team Providers Care Lamp Tester And Inspector Name Role Phone Unavailable Primary Care Provider Unavailabl e Reason for Visit * Reason Comments Medication Management Encounter Details Date Type Department Care Team Description 06/02/2023 Pharmacy Pharmacy Hematology Oncology [facility] [address], [place] [id number] [facility], [facility] Hem/Onc [address], [place] [phone] Primary cancer of left upper lobe of [...] without food. 240 Tablet 2 05/23/2023 Active predniSONE 10 MG Oral Tablet (Deltasone) Take 1 Tablet by mouth in the morning. 0 Active documented as of this encounter (statuses [...] 11/21/2017 06/01/2020 Overview: DO NOT DELETE [facility] DETECT Study: Project # [id number], Terrazzo Layer Helper: Khadar Dodd, PhD. SUMMARY: Goal: Establish test [...] contact study staff at ; after hours Terrazzo Layer Helper via the [facility] hospital acoustical tile drill press operator . Please contact study team before resolving/deleting from patients problem list. Study phone number: [phone]. Diagnosis changed due to Research Module. Go to Snapshot for study details. Encounter for examination fo r normal comparison and control in clinical research program 11/21/2017 06/30/2022 Overview: DO NOT DELETE - [facility] DETECT Study: Project # [id number], Terrazzo Layer Helper: Mykel Gill, MS, MPH. SUMMARY: Goal: Establish [...] contact study staff at ; after hours Terrazzo Layer Helper via the [facility] hospital acoustical tile drill press operator . - Please contact study team before resolving/deleting from patients problem list. Study phone number: [phone]. Diagnosis changed due to Research Module. Go [...] of this encounter Progress Notes * Karo Barragan Jean, LTAC, located within [facility] - 06/01/2023 9:30 AM EDT MEDICATION THERAPY MANAGEMENT SOTORASIB TREATMENT PROGRESS NOTE Reba Pritchett Elaina [phone] Patient Phone Numbers Cell Home [phone] DaughterErin Lab: [facility] Specialty Pharmacy: [facility] Specialty Communication: Spoke to: Patient and Daughter Treatment: Medication: Sotorasib (Lumakras) Indication/Staging/Diagnosis Code: NSCLC w/ mets C34.12 Dose: 480 mg PO daily ( 05/2023) Administration: +/- food Start Date: 04/28/23 Primary Chief Operator Lock Tender/Oncologist: Katarina (formerly Dr. Mitchell) Supportive Care Meds: Olanzapine Ondansetron Dose adjustment / medication hold: 06/01/23: sotorasib held for elevated LFTs 05/2023: sotorasib dose reduced to 480mg daily for elevated LFTs Interval History: No concerns, tolerating therapy well Changes to medication list since last visit? No Assessment and Plan: Na+ low o Advised pt to increase dietary Na+ intake such as olives, pickles, and canned foods o Will monitor closely K+ elevated o Advised pt to limit dietary K+, e.g. bananas, watermelon, potatoes o Will monitor closely ALT increasing to 4 times ULN o AST increasing to 1.5 times ULN o Alk phos increasing to 4.6 times ULN o Bilirubin WNL but increasing o Per PI, for grade 2 AST or ALT elevation (with symptoms) or grade 3 or 4 AST or ALT elevation: Withhold sotorasib until recovery to ? grade 1 or baseline, then resume at the next lower dose level (480mg daily) All other labs stable Per discussion with Dr. Bray, HOLD sotorasib and repeat labs in one week o Reiterated multiple times to not take any medication until pt/daughter spoke with MTM next week o Pt and daughter deferred scheduling lab appt and will walk in 06/07/23 o Ordered future cbcd and cmp Once LFTs improve to 2.5 times ULN or less pt to resume dose at 480mg daily o Alteration of treatment entered and beacon plan updated MTM to follow up in 2 days to [facility] and 1 week to review labs ADDENDUM / LATE ENTRY: Daughter reports pt has been taking prednisone 10mg daily for a while as [place] [facility] Med recupdated. Will monitor cbcd closely due to anticipated WBC and PLT elevation Assessment of compliance: compliant Assessment of adverse effects attributed to drug therapy: Nausea/Vomiting - absent Diarrhea - absent Edema - absent Rash - absent Musculoskeletal pain - absent Dose adjustment needed based on lab or adverse drug reaction? Yes, HOLD and dose reduce Follow up: 2 days and 1 week Karo Jean, PharmD, BCOP Clinical Pharmacist, [facility] Oral Chemotherapy [facility] 06/01/2023, 2:29 PM Karo Jean, PharmD, BCOP Clinical Pharmacist, [facility] Oral Chemotherapy [facility] 06/01/2023, 3:14 PM Monitoring Parameters: Estimated CrCl Serum creatinine: 0.8 mg/dL 05/31/23 1501 Estimated creatinine clearance: 44 mL/min Hepatitis panel Ordered to be completed with next labs Suggested lab monitoring CBCd as indicated, CMP every 3 weeks for first 3 months, then monthly Treatment Parameters See PI Pertinent labs: Latest Reference Range & Units 04/18/23 11:40 05/10/23 11:20 05/31/23 15:01 WBC 4.00 - 10.80 K/uL 11.47 (H) 8.81 11.14 (H) HGB 12.0 - 15.3 g/dL 10.2 (L) 10.3 (L) 10.5 (L) HCT 36.0 - 45.2 % 31.4 (L) 32.8 (L) 33.6 (L) MCV 81.5 - 97.5 fL 79.1 83.2 84.8 PLT 140 - 400 K/uL 608 (H) 450 (H) 519 (H) Absolute Neutrophils 1.80 - 7.70 K/uL 7.27 5.28 9.19 (H) Latest Reference Range & Units 04/18/23 11:40 05/10/23 11:20 05/31/23 15:01 Sodium 135 - 146 mmol/L 132 (L) 131 (L) 128 (L) Potassium 3.5 - 5.1 mmol/L 4.0 4.2 5.2 (H) Latest Reference Range & Units 04/18/23 11:40 05/10/23 11:20 05/31/23 15:01 BUN 6 - 20 mg/dL 22 (H) 23 (H) 29 (H) Creatinine 0.5 - 1.0 mg/dL 0.9 0.9 0.8 Estimated Glomerular Filtration Rate >=60 mL/min 62 68 74 Latest Reference Range & Units 04/18/23 11:40 05/10/23 11:20 05/31/23 15:01 Albumin 3.8 - 5.0 g/dL 3.3 (L) 3.3 (L) 3.6 (L) AST 10 - 35 U/L 20 14 51 (H) ALT 10 - 35 U/L 19 9 (L) 140 (H) Alkaline Phosphatase 35 - 130 U/L 116 92 595 (H) Bilirubin, Total <=1.2 mg/dL 0.3 0.3 1.1 Time Spent on Encounter: 26 - 30 minutes Encounter Group: Oncology Encounter Interventions Item Category: Oral Chemotherapy Other: Sotorasib Problem/Rationale: Safety: Adverse medication event - Undesirable effect Bradford Plan Review: Alteration of plan Pharmacist Intervention(s): Clarification with Provider, Dose decreased, Lab monitoring, Medicationheld, Non-pharmacological intervention provided, Orders labs and Toxicity monitoring Magnitude of Intervention: Modification of medication for asymtomatic patients (Level 2) documented in this encounter Plan of Treatment Upcoming Encounters Date Type Specialty Care Team Description 06/05/2023 Pharmacy Pharmacy [facility], [facility] Hem/Onc [address] [place] [address] 06/08/2023 Pharmacy Pharmacy [facility], [facility] Hem/Onc [address] [facility] [place] [phone] 06/14/2023 Laboratory Laboratory Moriah Cab[facility] [address] [place] [address] 06/21/2023 Office Visit Hematology Oncology Hesham Bray MD [address] [place] [address] 07/21/2023 Office Visit Gastroenterology Vianey Corrigan CRNP [address] [place] [address] Health Maintenance Due Date Last Done Comments [...] Documents on File Type Date Recorded Patient Thoracic Medicine Specialist Expl anation Advance Directives and Living Will 06/24/2022 ADVANCE DIRECTIVE / LIVING WILL Power of Victim Witness Administrator 06/24/2022 POWER OF A TTORNEY Latest Code Status on File Code Status Date Activated Date Inactivated Comments No Code 03/20/2023 1:42 AM 03/21/2023 5:59 PM This order reflects the patients wishes and were consensually agreed upon. Question Answer Comments Discussion of Advance Directives occurred with: Patient
--- OUTSIDE RECORDS SUMMARY | 2023-07-05 14:43 | External Medical Summary | Summary of Care ---
Author Name Unknown Organization [facility] Address [address] [place] [address] Phone [phone] Care Team Providers Care Medical Assistant Internal Medicine Name Role Phone Unavailable Primary Care Provider Unavailabl e Reason for Visit * Reason Comments Medication Management Encounter Details Date Type Department Care Team Description 06/05/2023 Pharmacy Pharmacy Hematology Oncology [facility] [address], [place] [phone] [facility], [facility] Hem/Onc [address], [place] [phone] Primary cancer of left upper lobe of [...] without food. 120 Tablet 5 06/05/2023 Active Sotorasib 120 MG Oral TabletIndication s: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 With or without food. 240 Tablet 2 05/23/2023 3 Discontinue d(Medicatio n/Dose Changed) documented as of this encounter (statuses as [...] [facility] DET[facility] Study: Project # [id number], Event Promotions Coordinator: Khadar Dodd, PhD. SUMMARY: Goal: Establish test [...] contact study staff at ; after hours Event Promotions Coordinator via the [facility] hospital supercalender operator . Please contact study team before resolving/deleting from patients problem list. Study phone number: [phone]. Diagnosis changed due to Research Module. Go to Snapshot for study details. Encounter for examination fo r normal comparison and control in clinical research program 11/21/2017 06/30/2022 Overview: DO NOT DELETE [facility] DETECT Study: Project # [id number], Event Promotions Coordinator: Mykel Gill, MS, MPH. SUMMARY: Goal: Establish [...] contact study staff at ; after hours Event Promotions Coordinator via the [facility] hospital supercalender operator . - Please contact study team before resolving/deleting from patients problem list. Study phone number: [phone]. Diagnosis changed due to Research Module. Go [...] of this encounter Progress Notes * Karo Jean [facility] - 06/05/2023 2:14 PM EDT Updated RX sent to [facility] Specialty Karo Jean, PharmD, BCOP Clinical Pharmacist, [facility] Oral Chemotherapy [facility] 06/05/2023, 2:14 PM Time Spent on Encounter: 6 - 10 minutes Encounter Group: Oncology Encounter Interventions Item Category: Oral Chemotherapy Other: Sotorasib Problem/Rationale: [place] Plan Review: Clinical Review Pharmacist Intervention(s): Medication prescribed Magnitude of Intervention: Modification of medication for asymtomatic patients (Level 2) * Ammy Paredes [facility] - 06/05/2023 1:30 PM EDT MEDICATION THERAPY MANAGEMENT SOTORASIB TREATMENT PROGRESS NOTE Reba Pritchett Elaina [id number] Patient Phone Numbers Communication: Chart review Treatment: Medication: Sotorasib (Lumakras) Indication/Staging/Diagnosis Code: 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 Mitchell) Supportive Care Meds: Olanzapine Ondansetron Dose adjustment / medication hold: 06/01/23: sotorasib held for elevated LFTs 05/2023: sotorasib dose reduced to 480mg daily for elevated LFTs Assessment and plan: Yes/no Date Action Taken [place] plan entered? Yes 06/05/23 Physician signature? Yes 06/05/23 Rx released? [facility] Ammy Paredes Save [employer] Operator III Oral Chemotherapy Clinic 06/05/2023, 11:57 AM Time Spent on Encounter: < 5 minutes documented in this encounter Plan of Treatment Upcoming Encounters Date Type Specialty Care Team Description 06/08/2023 Pharmacy Pharmacy [facility] Hem[facility]Onc [address] [place] [address] 06/14/2023 Laboratory Laboratory [facility] [address] [place] [address] 06/21/2023 Office Visit Hematology Oncology Hesham Bray MD [address] [place] [address] 07/21/2023 Office Visit Gastroenterology Vianey Corrigan, DAVID [address] [place] [address] Health Maintenance Due Date Last Done Comments [...] Documents on File Type Date Recorded Patient Milling Machinist Expl anation Advance Directives and Living Will 06/24/2022 ADVANCE DIRECTIVE / LIVING WILL Power of Utilization Management Manager 06/24/2022 POWER OF A TTORNEY Latest Code Status on File Code Status Date Activated Date Inactivated Comments No Code 03/20/2023 1:42 AM 03/21/2023 5:59 PM This order reflects the patients wishes and were consensually agreed upon. Question Answer Comments Discussion of Advance Directives occurred with: Patient
--- OUTSIDE RECORDS SUMMARY | 2023-07-05 14:43 | External Medical Summary | Summary of Care ---
Author Name Unknown Organization [facility] Address [address] [place] [address] Phone [phone] Care Team Providers Care Track Manager Name Role Phone Unavailable Primary Care Provider Unavailabl e Reason for Visit * Reason Comments Outpatient Testing Encounter Details Date Type Department Care Team Description 05/31/2023 Laboratory Laboratory [facility] [address] [place] [phone] [facility] [address] [place] [address] 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) Allergies No known active allergiesdocumented as of this encounter (statuses as of 05/31/2023) Medications Medication Sig Dispensed Refills Start Date [...] as of this encounter (statuses as of 05/31/2023) Active Problems Problem Noted Date Primary cancer of left upper lobe of toby g 03/30/2023 Cancer Staging:Clinical:Stage STEVE(cT3, cN3, cM1b) - Signed by Tarci Mitchell MD on 04/12/2023 Encounter for antineoplastic [...] as of this encounter (statuses as of 05/31/2023) Resolved Problems Problem Noted Date Resolved Date Encounter for examination fo r normal comparison and control in clinical research program 11/21/2017 06/01/2020 Overview: DO NOT DELETE [facility] Study: Project # [id number], Crystal Calibrator: Khadar Dodd, PhD. SUMMARY: Goal: Establish test [...] contact study staff at ; after hours Crystal Calibrator via the [facility] lay up operator . Please contact study team before resolving/deleting from patients problem list. Study phone number: [phone]. Diagnosis changed due to Research Module. Go to Snapshot for study details. Encounter for examination fo r normal comparison and control in clinical research program 11/21/2017 06/30/2022 Overview: DO NOT DELETE - [employer] DETECT Study: Project # [id number], Crystal Calibrator: Mykel Gill, MS, MPH. SUMMARY: Goal: Establish [...] contact study staff at ; after hours Crystal Calibrator via the [facility] lay up operator . - Please contact study team before resolving/deleting from patients problem list. Study phone number: [phone]. Diagnosis changed due to Research Module. Go to Snapshot for study details. documented as of this encounter (statuses as of 05/31/2023) Immunizations Name Administration Dates Next Due Covid-19 [...] Specialty Care Team Description 06/02/2023 Pharmacy Pharmacy [facility], [facility] Hem[facility]Onc [address] [facility] [place] [address] 06/14/2023 Laboratory Laboratory Moriah Cabrera [address] [place] [address] 06/21/2023 Office Visit Hematology Oncology Hesham Bray MD [address] [place] [address] 07/21/2023 Office Visit Gastroenterology Vianey Corrigan CRNP [address] [place] [address] Pending Results Name Type Priority Associated Diagnoses Date /Time COMPREHENSIVE METABOLIC PANEL Lab STAT 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) 05/31/2023 3:01 PM EDT Health Maintenance Due Date Last Done [...] Date/Time Associated Diagnosis Comments DIFFERENTIAL, AUTOMATED STAT 05/31/2023 3:01 PM EDT 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) CBC WITH WBC DIFFERENTIAL STAT 05/31/2023 3:01 PM EDT 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) CBC STAT 05/31/2023 3:01 PM EDT 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) documented in this encounter Results * (ABNORMAL) DIFFERENTIAL, AUTOMATED (05/31/2023 3:01 PM EDT) WBC 11.14(H) 4.00 - 10.80 K/uL 05/31/2023 3:08 PM EDT [facility]02 Neutrophils % 82.5(H) 40.0 - 75.0 % 05/31/2023 3:08 PM EDT [facility]-02 Lymphocytes % 11.2(L) 18.0 - 42.0 % 05/31/2023 3:08 PM EDT [facility] 56-02 Monocytes % 5.0 1.0 - 11.0 % 05/31/2023 3:08 PM EDT [facility] 56-02 Eosinophils % 1.1 0.0 - 6.0 % 05/31/2023 3:08 PM EDT [facility] 56-02 Basophils % 0.2 0.0 - 2.0 % 05/31/2023 3:08 PM EDT [facility] 56-02 Absolute Neutrophils 9.19(H) 1.80 - 7.70 K/uL 05/31/2023 3:08 PM EDT [facility] 56-02 Absolute Lymphocytes 1.25 1.00 - 4.80 K/ul 05/31/2023 3:08 PM EDT [facility] 56 Absolute Monocytes 0.56 0.00 - 1.10 K/uL 05/31/2023 3:08 PM EDT [facility] Absolute Eosinophils 0.12 0.00 - 0.70 K/uL 05/31/2023 3:08 PM EDT [facility] Absolute Basophils 0.02 0.00 - 0.20 K/uL 05/31/2023 3:08 PM EDT [facility] Blood Venous blood specimen / Unknown Venipuncture / Unknown 05/31/2023 3:01 PM EDT 05/31/2023 3:02 PM EDT Traci Mitchell MD LAB BLOOD ORDERABLES [facility] [address] [place] [address] * (ABNORMAL) CBC (05/31/2023 3:01 PM EDT) WBC 11.14(H) 4.00 - 10.80 K/uL 05/31/2023 3:08 PM EDT [facility] RBC 3.96 3.85 - 5.15 M/uL 05/31/2023 3:08 PM EDT [facility] HGB 10.5(L) 12.0 - 15.3 g/dL 05/31/2023 3:08 PM EDT [facility] HCT 33.6(L) 36.0 - 45.2 % 05/31/2023 3:08 PM EDT [facility] MCV 84.8 81.5 - 97.5 fL 05/31/2023 3:08 PM EDT [facility] MCH 26.5 27.0 - 34.0 pg 05/31/2023 3:08 PM EDT [facility] MCHC 31.3 32.0 - 36.0 g/dL 05/31/2023 3:08 PM EDT [facility] RDW 22.7 11.5 - 15.5 % 05/31/2023 3:08 PM EDT [facility] 56 PLT 519(H) 140 - 400 K/uL 05/31/2023 3:08 PM EDT [facility] 56 MPV 9.1 6.6 - 11.1 fL 05/31/2023 3:08 PM EDT [facility] 56 Blood Venous blood specimen / Unknown Venipuncture / Unknown 05/31/2023 3:01 PM EDT 05/31/2023 3:02 PM EDT Traci Mitchell MD LAB BLOOD ORDERABLES [facility] [address] [place] [address] documented in this encounter Visit Diagnoses Diagnosis 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) documented in this encounter Advance Directives Documents on File Type Date Recorded Patient History Instructor Expl anation Advance Directives and Living Will 06/24/2022 ADVANCE DIRECTIVE / LIVING WILL Power of Science Manager 06/24/2022 POWER OF A TTORNEY Latest Code Status on File Code Status Date Activated Date Inactivated Comments No Code 03/20/2023 1:42 AM 03/21/2023 5:59 PM This order reflects the patients wishes and were consensually agreed upon. Question Answer Comments Discussion of Advance Directives occurred with: Patient
--- OUTSIDE RECORDS SUMMARY | 2023-07-05 14:43 | External Medical Summary ---
Author Name Unknown Address Unknown Organization K01:[facility] [address] [place] [address] Laboratory Report Ordering Provider Test Date Status NESS PADILLA 06/07/2023 11:35:39 Final Observation Date Value Abnormality Reference (Units ) Status LDH 06/07/2023 11:35:39 206 <=250 (U/L ) Final Performing Location [facility] [address] [place] [id number]
--- OUTSIDE RECORDS SUMMARY | 2023-07-05 14:43 | External Medical Summary | Summary of Care ---
Author Name Unknown Organization [facility] Address [address] [place] [address] Phone [phone] Care Team Providers Care Park Guide Name Role Phone Unavailable Primary Care Provider Unavailabl e Reason for Visit * Reason Comments Medication Management Encounter Details Date Type Department Care Team Description 06/02/2023 Pharmacy Pharmacy Hematology Oncology [facility] [address], [place] [id number] [facility], [facility] Hem[facility]Onc [address], [place] [id number] Primary cancer of left upper lobe of [...] program 11/21/2017 06/01/2020 Overview: DO NOT DELETE [facility] Study: Project # [id number], Maintenance Service Dispatcher: Khadar Dodd, PhD. SUMMARY: Goal: Establish test [...] contact study staff at ; after hours Maintenance Service Dispatcher via the [facility] hospital power press operator . Please contact study team before resolving/deleting from patients problem list. Study phone number: [phone]. Diagnosis changed due to Research Module. Go to Snapshot for study details. Encounter for examination fo r normal comparison and control in clinical research program 11/21/2017 06/30/2022 Overview: DO NOT DELETE - [facility]EN Study: Project # [id number], Maintenance Service Dispatcher: Mykel Gill, MS, MPH. SUMMARY: Goal: Establish [...] contact study staff at ; after hours Maintenance Service Dispatcher via the [facility] hospital power press operator . - Please contact study team before resolving/deleting from patients problem list. Study phone number: [phone]. Diagnosis changed due to Research Module. Go [...] of this encounter Progress Notes * Karo Sanabriadebbie Jean, [facility] - 06/01/2023 9:30 AM EDT MEDICATION THERAPY MANAGEMENT SOTORASIB TREATMENT PROGRESS NOTE Reba Delaney [id number] Patient Phone Numbers Cell Home [phone] DaughterErin Preferred Lab: [facility] Special[facility] Pharmacy: [facility] Specialty Communication: Spoke to: Patient and Daughter Treatment: Medication: Sotorasib (Lumakras) Indication/Staging/Diagnosis Code: NSCLC w/ mets C34.12 Dose: 480 mg PO daily ( 05/2023) Administration: +/- food Start Date: 04/28/23 Primary Fruit Harvester/Oncologist: Katarina (formerly Dr. Mitchell) Supportive Care Meds: [...] other labs stable Per discussion with Dr. Katarina, HOLD sotorasib and repeat labs in one [...] 2 days to send updated RX to [facility] and 1 week to review labs Assessment of compliance: compliant Assessment of adverse effects attributed to drug therapy: Nausea/Vomiting - absent Diarrhea - absent Edema - absent Rash - absent Musculoskeletal pain - absent Dose adjustment needed based on lab or adverse drug reaction? Yes, HOLD and dose reduce Follow up: 2 days and 1 week Karo Jean, PharmD, BCOP Clinical Pharmacist, [facility] Oral Chemotherapy [facility] [place] [facility] 06/01/2023, 2:29 PM Monitoring Parameters: Estimated CrCl Serum creatinine: [...] Safety: Adverse medication event - Undesirable effect Excello Plan Review: Alteration of plan Pharmacist Intervention(s): Clarification with Provider, Dose decreased, Lab monitoring, Medicationheld, Non-pharmacological intervention provided, Orders labs and Toxicity monitoring Magnitude of Intervention: Modification of medication for asymtomatic patients (Level 2) documented in this encounter Plan of Treatment Upcoming Encounters Date Type Specialty Care Team Description 06/05/2023 Pharmacy Pharmacy [facility] Hem/Onc [address] [place] [address] 06/08/2023 Pharmacy Pharmacy [facility] Hem/Onc [address] [place] [address] 06/14/2023 Laboratory Laboratory Moriah Cabrera [address] [place] [address] 06/21/2023 Office Visit Hematology Oncology Hesham Bray MD [address] [place] [address] 07/21/2023 Office Visit Gastroenterology Vianey Corrigan CRNP [address] [place] [address] Health Maintenance Due Date Last Done Comments [...] Documents on File Type Date Recorded Patient Sports Administrator Expl anation Advance Directives and Living Will 06/24/2022 ADVANCE DIRECTIVE / LIVING WILL Power of Coding Assistant 06/24/2022 POWER OF A TTORNEY Latest Code Status on File Code Status Date Activated Date Inactivated Comments No Code 03/20/2023 1:42 AM 03/21/2023 5:59 PM This order reflects the patients wishes and were consensually agreed upon. Question Answer Comments Discussion of Advance Directives occurred with: Patient
--- OUTSIDE RECORDS SUMMARY | 2023-07-05 14:44 | External Medical Summary | Summary of Care ---
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 With or without food. 240 Tablet 2 04/25/2023 3 Discontinue d(Refill) documented as of this encounter (statuses as of 05/23/2023) Active Problems Problem Noted Date Primary cancer [...] as of this encounter (statuses as of 05/23/2023) Resolved Problems Problem Noted Date Resolved Date Encounter for examination fo r normal comparison and control in clinical research program 11/21/2017 06/01/2020 Overview: DO NOT DELETE [facility] DETECT Study: Project # [id number], Laborer Chicken [employer]: Khadar Dodd, PhD. SUMMARY: Goal: Establish test [...] contact study staff at ; after hours Lab[employer] via the [facility] hospital cut off saw operator . Please contact study team before resolving/deleting from patients problem list. Study phone number: [phone]. Diagnosis changed due to Research Module. Go to Snapshot for study details. Encounter for examination fo r normal comparison and control in clinical research program 11/21/2017 06/30/2022 Overview: DO NOT DELETE - Honorio [facility] DETECT Study: Project # [id number], [employer]: Mykel Gill, MS, MPH. SUMMARY: Goal: Establish [...] contact study staff at ; after hours [employer] via the [facility] hospital cut off saw operator . - Please contact study team before resolving/deleting from patients problem list. Study phone number: [phone]. Diagnosis changed due to Research Module. Go to Snapshot for study details. documented as of this encounter (statuses as of 05/23/2023) Immunizations Name Administration Dates Next Due Covid-19 [...] encounter Miscellaneous Notes * Telephone Encounter - Jerri Sanon [facility] - 05/23/2023 4:03 PM EDTSigned Prescriptions: Disp Refills Sotorasib 120 MG Oral Tablet 240 Ta*2 Sig: Take 960 mg by mouth in the morning. With or without food.Authorizing Provider: HESHAM ARZOLA User: JERRI SANON * Telephone Encounter - Jerri Sanon [facility] - 05/23/2023 4:00 PM EDT Refill Request EPIC Note Clinical Pharmacy Service (Hematology/Oncology): Refill Request(s) PHYSICIAN ACTION: No Assessment & Plan After reviewing the parameters in order to refill the patient's medication(s), the following was determined: The medication(s), sotorasib, was refilled and no parameters need to be addressed No communication to requesting entity necessary Refill Parameters The following parameters were assessed in order to decide whether or not this refill was appropriate: Refill Parameter Comments If the patient was seen in the last 6 months (12 months for MPN patients) Y If the labs were completed per prescribing information recommendations or provider recommendations Y If the labs were within normal limits or stable at baseline Y If the dose was correct and/or if the prescription sig reflects the current prescribed dose Y If there were any new drug interactions with the patient's oral chemotherapy Y If there were any care gaps/baseline labs that need to be addressed Y Jerri Sanon, BhavanaD Ambulatory Clinical Pharmacist | Oral Chemotherapy Clinic [facility] 05/23/2023, 4:01 PM * Telephone Encounter - Corazon Davis LPN - 05/23/2023 2:04 PM EDTPending Prescriptions: Disp Refills Sotorasib 120 MG Oral Tablet 240 Ta*2 Sig: Take 960 mg by mouth in the morning. With or without food. documented in this encounter Plan of Treatment Upcoming Encounters Date Type Specialty Care Team Description 05/24/2023 Pharmacy Pharmacy [facility] Hem[facility]Onc [address] [place] [address] 06/14/2023 Laboratory Laboratory Moriah Cabrera [address] [place] [address] 06/21/2023 Office Visit Hematology Oncology Hesham Arzola MD [address] [facility] [place] [address] 07/21/2023 Office Visit Gastroenterology Vianey Corrigan CRNP [address] [place] [address] Health Maintenance Due Date Last Done Comments [...] Documents on File Type Date Recorded 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 Question Answer Comments Discussion of Advance Directives occurred with: Patient"
--- OUTSIDE RECORDS SUMMARY | 2023-07-05 14:44 | External Medical Summary ---
Author Name Unknown Address Unknown Organization K09[facility] [place] [address] Laboratory Report Ordering Provider Test Date Status BERTO ALAS 05/31/2023 15:01:51 Final Observation Date Value Abnormality Reference (Units ) Status BUN 05/31/2023 15:01:51 29 Above high normal 6-20 (mg/dL) Final Creatinine 05/31/2023 15:01:51 0.8 0.5-1.0 (mg/dL) Final Glomerular filtration rate/1.73 sq M.predicted [Volume Rate/Area] in Serum, Plasma or Blood by Creatinine-based formula (CKD-EPI) 05/31/2023 15:01:51 74 >=60 (mL/min) Final Performing Location [facility] [place] [address]
--- OUTSIDE RECORDS SUMMARY | 2023-07-05 14:44 | External Medical Summary ---
Author Name Unknown Address Unknown Organization [facility] [address] Laboratory Report Ordering Provider Test Date Status BERTO ALAS 05/31/2023 15:01:51 Final Observation Date Value Abnormality Reference (Units ) Status SYNC LEUKOCYTES IN BLOOD BY AUTOMATED COUNT 05/31/2023 15:01:51 11.14 Above high normal 4.00-10.80 (K/uL) Final Segs 05/31/2023 15:01:51 82.5 Above high normal 40.0-75.0 (%) Final Lymphs % 05/31/2023 15:01:51 11.2 Below low normal 18.0-42.0 (%) Final Monos 05/31/2023 15:01:51 5.0 1.0-11.0 (%) Final Eosinophils 05/31/2023 15:01:51 1.1 0.0-6.0 (%) Final Basos 05/31/2023 15:01:51 0.2 0.0-2.0 (%) Final Absolute Segs 05/31/2023 15:01:51 9.19 Above high normal 1.80-7.70 (K/uL) Final Lymphs, absolute 05/31/2023 15:01:51 1.25 1.00-4.80 (K/ul) Final Monos, Abs 05/31/2023 15:01:51 0.56 0.00-1.10 (K/uL) Final Eos, Abs 05/31/2023 15:01:51 0.12 0.00-0.70 (K/uL) Final Basos, Abs 05/31/2023 15:01:51 0.02 0.00-0.20 (K/uL) Final Performing Location [facility] [place] [address]
--- OUTSIDE RECORDS SUMMARY | 2023-07-05 14:44 | External Medical Summary | Summary of Care ---
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 With or without food. 240 Tablet 2 04/25/2023 Active Ondansetron HCl 4 MG Oral TabletIndications: [...] before bedtime. 60 Tablet 1 05/13/2023 Active documented as of this encounter (statuses as of 05/15/2023) Active Problems Problem Noted Date Primary cancer [...] as of this encounter (statuses as of 05/15/2023) Resolved Problems Problem Noted Date Resolved Date Encounter for examination fo r normal comparison and control in clinical research program 11/21/2017 06/01/2020 Overview: DO NOT DELETE [facility] DETECT Study: Project # [id number], Interactive Account Manager: Khadar Dodd, PhD. SUMMARY: Goal: Establish [...] contact study staff at ; after hours Interactive Account Manager via the [facility] hospital slicer machine operator . Please contact study team before resolving/deleting from patients problem list. Study phone number: [phone]. Diagnosis changed due to Research Module. Go to Snapshot for study details. Encounter for examination fo r normal comparison and control in clinical research program 11/21/2017 06/30/2022 Overview: DO NOT DELETE - Honorio [facility] DETECT Study: Project # [id number], Interactive Account Manager: Mykel Gill, MS, MPH. SUMMARY: Goal: [...] contact study staff at ; after hours Interactive Account Manager via the [facility] hospital slicer machine operator . - Please contact study team before resolving/deleting from patients problem list. Study phone number: [phone]. Diagnosis changed due to Research Module. Go to Snapshot for study details. documented as of this encounter (statuses as of 05/15/2023) Immunizations Name Administration Dates Next Due Covid-19 [...] encounter Miscellaneous Notes * Telephone Encounter - Gillian Story LPN - 05/15/2023 8:12 AM EDT PT doesn't need this medication refilled at this time documented in this encounter Plan of Treatment Upcoming Encounters Date Type Specialty Care Team Description 05/17/2023 Pharmacy Pharmacy [facility]c [address] [place] [address] 06/14/2023 Laboratory [facility] [address] [place] [address] 06/21/2023 Office Visit Hematology Oncology Hesham Bray MD [address] [place] [address] 07/21/2023 Office Visit Gastroenterology Vianey Corrigan CRNP [address] [facility] [place] [address] Health Maintenance Due Date Last Done Comments [...] Documents on File Type Date Recorded 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 Question Answer Comments Discussion of Advance Directives occurred with: Patient
--- OUTSIDE RECORDS SUMMARY | 2023-07-05 14:44 | External Medical Summary | Summary of Care ---
Author Name Unknown Organization [facility] Address [address] [place] [address] Phone [phone] Care Team Providers Care Agricultural Produce Packer Name Role Phone Gabby Balderas Primary Care Provider [phone] Reason for Visit * Reason Comments Consultation Lung Mass Encounter Details Date Type Department Care Team Description 05/10/2023 Office Visit Hematology/Oncology Sanjiv Cabrera [place] [address] [facility] [place] [address] Hesham Bray MD [address] [facility] [place] [address] 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)*; Bilateral pulmonary embolism (HCC); Anemia due to folic acid deficiency, unspecified deficiency type Allergies No known active allergiesdocumented as of this encounter (statuses as of 05/10/2023) Medications Medication Sig Dispensed Refills Start Date End Date Status Vitamin D 25 MCG (1000 UT) Oral Tablet Take 1 Tablet by mouth in the morning. 0 Active Simethicone 80 MG Oral Tablet (Bicarsim)Indicat ions: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) Take 1 Tablet by mouth every 6 hours as needed for Gas. 30 Tablet 0 03/30/2023 Active Apixaban 5 MG Oral Tablet (Eliquis)Indicati ons: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 60 Tablet 2 03/30/2023 Active OLANZapine 5 MG Oral Tablet (zyPREXA)Indicati ons: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),Anorexia Take 1 Tablet by mouth at bedtime. 30 Tablet 0 04/13/2023 Active Famotidine 20 MG Oral Tablet (Pepcid) Take 1 Tablet by mouth in the morning and 1 Tablet before bedtime. 180 Tablet 1 04/13/2023 Active Sotorasib 120 MG Oral TabletIndications :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 With or without food. 240 Tablet 2 04/25/2023 Active Ondansetron HCl 4 MG Oral TabletIndications :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 30 Tablet 3 04/25/2023 Active Additional Information Patient not taking.Reported on 05/10/2023 Vitamin B-12 1000 MCG Oral Tablet (Cyanocobalamin) Take 1 Tablet by mouth in the morning. 0 Active Omeprazole 20 MG Oral Capsule Delayed Release (PriLOSEC)Indicat ions:Gastroesopha geal reflux disease, unspecified whether esophagitis present,Anemia, unspecified type Take 1 Capsule by mouth in the morning. 1 hour before the first meal of the day. 30 Capsule 1 03/17/2023 3 Discontinue d(Medicatio n List Clean Up) Vitron-C 65-125 MG Oral Tablet (Iron-Vitamin C 65-125 mg per tab)Indications:O ther iron deficiency anemia Take 1 Tablet by mouth in the morning and 1 Tablet before bedtime. For iron supplement, generic, take with food. 60 Tablet 5 03/17/2023 3 Discontinue d(Medicatio n List Clean Up) Sulfamethoxazole- Trimethoprim 800-160 MG Oral Tablet (Bactrim DS) Take 1 Tablet by mouth in the morning and 1 Tablet before bedtime. 10 Tablet 0 04/03/2023 3 Discontinue d(Medicatio n List Clean Up) documented as of this encounter (statuses as of 05/10/2023) Active Problems Problem Noted Date Primary cancer [...] as of this encounter (statuses as of 05/10/2023) Resolved Problems Problem Noted Date Resolved Date Encounter for examination fo r normal comparison and control in clinical research program 11/21/2017 06/01/2020 Overview: DO NOT DELETE [facility] DETECT Study: Project # [id number], Mechanical Service Technician: Khadar Dodd, PhD. SUMMARY: Goal: Establish test [...] contact study staff at ; after hours Mechanical Service Technician via the [facility] multi purpose machine operator . Please contact study team before resolving/deleting from patients problem list. Study phone number: [phone]. Diagnosis changed due to Research Module. Go to Snapshot for study details. Encounter for examination fo r normal comparison and control in clinical research program 11/21/2017 06/30/2022 Overview: DO NOT DELETE - [facility] AREN Study: Project # [id number], Mechanical Service Technician: Mykel Gill, MS, MPH. SUMMARY: Goal: Establish [...] contact study staff at ; after hours Mechanical Service Technician via the [facility] multi purpose machine operator . - Please contact study team before resolving/deleting from patients problem list. Study phone number: [phone]. Diagnosis changed due to Research Module. Go to Snapshot for study details. documented as of this encounter (statuses as of 05/10/2023) Immunizations Name Administration Dates Next Due Covid-19 [...] Sign Reading Time Taken Comments Blood Pressure 149/73 05/10/2023 11:30 AM EDT Pulse 96 05/10/2023 11:30 AM EDT Temperature 37 C (98.6 F) 05/10/2023 11:30 AM EDT Respiratory Rate 16 05/10/2023 11:30 AM EDT Oxygen Saturation 95% 05/10/2023 11:30 AM EDT Inhaled Oxygen Concentration - - Weight 48.1 kg (106 lb 1.6 oz) 05/10/2023 11:30 AM EDT Height 161.3 cm (5' 3.5") 05/10/2023 11:30 AM ED T Body Mass Index 18.5 05/10/2023 11:30 AM EDT documented in this [...] Progress Notes * Hesham Bray MD - 05/10/2023 11:26 AM EDT Outpatient Consult Note Data Source: Patient, Epic record. Data Source: Patient, Epic record. 05/10/2023 11:31 AM Reba Delaney [id number] 78 year old Patient Encounter: HEMATOLOGY/ONCOLOGY [facility] Cancer Diagnosis: Transfer from Dr. Mitchell [...] for TTF1 and p40. There is weak/patchy s ynaptophysin staining. Overall, given the history of a [...] and sister was diagnosed of skin cancer. LABS/IMAGING: Results for orders placed or performed in visit on 05/10/23 COMPREHENSIVE METABOLIC PANEL Result Value Ref Range BUN 23 (H) 6 - 20 mg/dL Creatinine 0.9 0.5 - 1.0 mg/dL Estimated Glomerular Filtration Rate 68 >=60 mL/min Sodium 131 (L) 135 - 146 mmol/L Potassium 4.2 3.5 - 5.1 mmol/L Chloride 97 (L) 98 - 107 mmol/L CO2 24 22 - 32 mmol/L Anion Gap 10 7 - 15 mmol/L Glucose 89 70 - 120 mg/dL Albumin 3.3 (L) 3.8 - 5.0 g/dL AST 14 10 - 35 U/L Alkaline Phosphatase 92 35 - 130 U/L Bilirubin, Total 0.3 <=1.2 mg/dL Calcium 9.4 8.4 - 10.2 mg/dL Protein 8.2 6.0 - 8.3 g/dL ALT 9 (L) 10 - 35 U/L CBC Result Value Ref Range WBC 8.81 4.00 - 10.80 K/uL RBC 3.94 3.85 - 5.15 M/uL HGB 10.3 (L) 12.0 - 15.3 g/dL HCT 32.8 (L) 36.0 - 45.2 % MCV 83.2 81.5 - 97.5 fL MCH 26.1 27.0 - 34.0 pg MCHC 31.4 32.0 - 36.0 g/dL RDW 18.7 11.5 - 15.5 % PLT 450 (H) 140 - 400 K/uL MPV 8.5 6.6 - 11.1 fL DIFFERENTIAL, AUTOMATED Result Value Ref Range WBC 8.81 4.00 - 10.80 K/uL Neutrophils % 59.9 40.0 - 75.0 % Lymphocytes % 26.7 18.0 - 42.0 % Monocytes % 11.9 (H) 1.0 - 11.0 % Eosinophils % 1.5 0.0 - 6.0 % Basophils % 0.0 0.0 - 2.0 % Absolute Neutrophils 5.28 1.80 - 7.70 K/uL Absolute Lymphocytes 2.35 1.00 - 4.80 K/ul Absolute Monocytes 1.05 0.00 - 1.10 K/uL Absolute Eosinophils 0.13 0.00 - 0.70 K/uL Absolute Basophils 0.00 0.00 - 0.20 K/uL Final Diagnosis A. Lymph Node, 4R, Right Paratracheal, EBUS transbronchial fine needle aspiration: Adequacy: Satisfactory for evaluation. Category: Malignant. Interpretation: Metastatic carcinoma, favor non-small cell carcinoma (see comment). Other: The histological sections of the cell block show clusters of epithelioid tumor cells with nuclear pleomorphism, nucleoli and vacuolated cytoplasm within a lymphoid background with bronchial contamination. B. Lymph Node, 4L, Left Paratracheal, EBUS transbronchial fine needle aspiration: Adequacy: Satisfactory for evaluation. Category: Malignant. Interpretation: Metastatic carcinoma, favor non-small cell carcinoma (see comment). Other: The histological sections of the cell block show clusters of epithelioid tumor cells with nuclear pleomorphism, nucleoli and vacuolated cytoplasm within a lymphoid background with bronchial contamination PD-L1 (SP263) 10% NGS: Immunotherapy Markers Tumor Mutational Cooper (TMB): TMB Unit Cooper 9.44 m/MB Low Microsatellite Instability Status (MSI): MSI Status 2.13 Stable Result Detail No pathologic mutation in EGFR, BRAF, ALK, ROS1, MET, RET, NTRK1-3 is detected in this tumor sample. DNA Variants (SNV and indels): Gene Variant Tier Amino Acid Change Nucleotide Change Consequence Allele Frequency Sequencing Depth KRAS G12C Tier 1: Strong significance p.[id number] NM_033360.4: c.34G>T Missense Variant 23.4 % 1992 STK11 M51Kfs*13 Tier 2: Potential significance p.Drg33QcvasIux11 NM_000455.5: c.152_153delTGinsA Frameshift Variant 31.1 % 192 TP53 N131S Tier 2: Potential significance p.Dji094Ycx NM_000546.6: c.392A>G Missense Variant 28.1 % 1996 Copy Number Variants (CNV): Gene Consequence Chromosomal Location TERT GAIN (6.33 copies) 5p15.33 RNA (translocations/fusions and exon skipping): No pathogenic RNA fusions detected in this sample REVIEW OF SYSTEMS: General: No Fever, chills, [...] region 01/2006 Osteoarthrosis, pelvic region and thigh [address] Eller Osteoporosis update DEXA Swelling, mass, or lump in head and neck 10/2009 benign Tobacco use disorder Current Outpatient Medications Medication Sig Dispense Refill Apixaban 5 MG Oral Tablet (Eliquis) Take 1 Tablet by mouth in the morning and 1 Tablet before bedtime. 60 Tablet 2 OLANZapine 5 MG Oral Tablet (zyPREXA) Take 1 Tablet by mouth at bedtime. 30 Tablet 0 Famotidine 20 MG Oral Tablet (Pepcid) Take 1 Tablet by mouth in the morning and 1 Tablet beforebedtime. 180 Tablet 1 Sotorasib 120 MG Oral Tablet Take 960 mg by mouth in the morning. With or without food. 240 Tablet 2 Vitamin B-12 1000 MCG Oral Tablet (Cyanocobalamin) Take 1 Tablet by mouth in the morning. Vitamin D 25 MCG (1000 UT) Oral Tablet Take 1 Tablet by mouth in the morning. Simethicone 80 MG Oral Tablet (Bicarsim) Take 1 Tablet by mouth every 6 hours as needed for Gas. 30 Tablet 0 Ondansetron HCl 4 MG Oral Tablet Take 1 Tablet by mouth every 6 hours as needed for Nausea. (Patient not taking: Reported on 05/10/2023) 30 Tablet 3 No current facility-administered medications for this visit. Social History Tobacco Use Smoking status: Former Packs/day: 0.75 Years: 52.00 Pack years: 39.00 Types: Cigarettes Start date: 1970 Smokeless tobacco: Never Vaping Use Vaping Use: Never used Substance Use Topics Alcohol use: Yes Comment: socially mixed drink whiskey club soda, Drug use: Never Review of patient's allergies indicates: No Known Allergies PHYSICAL EXAMINATION: General Appearance: Healthy appearing patient in no acute distress, PS=0 BP 149/73 (BP Site: Right Arm, BP Position: Sitting, BP Cuff Size: Pediatric) | Pulse 96 | Temp 37 C (98.6 F) (Tympanic) | Resp 16 | Ht 1.613 m (5' 3.5") | Wt 48.1 kg (106 lb 1.6 oz) | SpO2 95% |BMI 18.50 kg/m | BSA 1.47 m Vitals reviewed. HEENT: No oral or pharyngeal [...] status. Discussed with the patient and daughter in detail about the diagnosis and prognosis and reviewed all the available blood tests and PET scan finding with them. Clinically she is in good performance status. We will continue her current treatment and repeat PET scan in 3 months. PLAN: Continue current treatment. She will return clinic for follow-up in 6 weeks with CBC, CMP, iron, ferritin, B12 and folic acid. I spent a total of 55 minutes on the date of service in preparation, delivery, and documentation ofthe care provided to Reba Delaney excluding any time spent in the performance of separately billed services. All lab results were shown and discussed with patient. The patient voiced understanding of all of [...] Nursing Notes * Rosalba Brizuela CMA - 05/10/2023 11:31 AM EDT Patient identifed by name and birthdate Do you have any concerns about pain management for today's visit? No Living Will or Advance Directive for Health Care as noted on the problem list. [facility] is a way you can talk to your provider on line through e-mail. Would you like to sign up? I can activate it for you? ALREADY ACTIVE Filed Vitals: 05/10/23 1130 BP: 149/73 Pulse: 96 Resp: 16 Temp: 37 C (98.6 F) TempSrc: Tympanic SpO2: 95% Weight: 48.1 kg (106 lb 1.6 oz) Height: 1.613 m (5' 3.5") Patient was instructed to not get up [...] Specialty Care Team Description 05/17/[address] [facility] Hem/Onc [address] [place] [facility] [place] [address] 06/14/2023 Laboratory Laboratory Moriah [facility] [address] [place] [address] 06/21/2023 Office Visit Hematology Oncology Hesham Bray MD [address] [place] [address] 07/21/2023 Office Visit Gastroenterology Vianey Corrigan CRNP [address] [place] [address] Scheduled Orders Name Type Priority Associated Diagnoses Orde r Schedule CBC WITH WBC DIFFERENTIAL Lab Routine 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) Bilateral pulmonary embolism (HCC) Expected: 06/21/2023, Expires: 10/25/2023 COMPREHENSIVE METABOLIC PANEL Lab Routine 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) Bilateral pulmonary embolism (HCC) Expected: 06/21/2023, Expires: 10/25/2023 FERRITIN Lab Routine 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) Bilateral pulmonary embolism (HCC) Expected: 06/21/2023, Expires: 10/25/2023 FOLIC ACID Lab Routine 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) Bilateral pulmonary embolism (HCC) Anemia due to folic acid deficiency, unspecified deficiency type Expected: 06/21/2023, Expires: 10/25/2023 IRON SCREEN, INCLUDING TIBC Lab Routine 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) Bilateral pulmonary embolism (HCC) Expected: 06/21/2023, Expires: 10/25/2023 LD Lab Routine 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) Bilateral pulmonary embolism (HCC) Expected: 06/21/2023, Expires: 10/25/2023 Health Maintenance Due Date Last Done Comments [...] left upper lobe of lung (HCC)- Primary Bilateral pulmonary embolism (HCC) Other pulmonary embolism and infarction Anemia due to folic acid deficiency, unspecified deficiency type documented in this encounter Advance Directives Documents on File Type Date Recorded Patient Chronic Care Nurse Expl anation Advance Directives and Living Will 06/24/2022 ADVANCE DIRECTIVE / LIVING WILL Power of Paradichlorobenzene Machine Operator 06/24/2022 POWER OF A TTORNEY Latest Code Status on File Code Status Date Activated Date Inactivated Comments No Code 03/20/2023 1:42 AM 03/21/2023 5:59 PM This order reflects the patients wishes and were consensually agreed upon. Question Answer Comments Discussion of Advance Directives occurred with: Patient Care Teams Agricultural Produce Packer Relationship Specialty Start Date End Date Gabby Balderas DO [address] [place] [address] PCP - General Family Medicine 03/25/23 documented as of this encounter
--- OUTSIDE RECORDS SUMMARY | 2023-07-05 14:44 | External Medical Summary | Summary of Care ---
Author Name Unknown Organization [facility] Address [address] [place] [address] Phone [phone] Care Team Providers Care Manager Data Warehouse Name Role Phone Gabby Balderas Primary Care Provider [phone] Reason for Visit * Reason Comments Outpatient Testing Encounter Details Date Type Department Care Team Description 05/10/[address] [facility] [address] [place] [id number] [facility] [address] [place] [address] Primary cancer of left upper lobe of [...] 03/30/2023 Active Apixaban 5 MG Oral Tablet (Eliquis)Indicatio [...] 03/17/2023 05/10/2023 Discontinued (Medication List Clean Up) Sulfamethoxazole-T rimethoprim 800-160 MG Oral Tablet (Bactrim DS) Take 1 Tablet by mouth in the morning and 1 Tablet before bedtime. 10 Tablet 0 04/03/2023 05/10/2023 Discontinued (Medication List Clean Up) documented as of this [...] program 11/21/2017 06/01/2020 Overview: DO NOT DELETE [facility] DETECT Study: Project # [id number], Adzing And Boring Machine Feeder: Khadar Dodd, PhD. SUMMARY: Goal: Establish test [...] contact study staff at ; after hours Adzing And Boring Machine Feeder via the [facility] fusion operator . Please contact study team before resolving/deleting from patients problem list. Study phone number: [phone]. Diagnosis changed due to Research Module. Go to Snapshot for study details. Encounter for examination fo r normal comparison and control in clinical research program 11/21/2017 06/30/2022 Overview: DO NOT DELETE - [facility] Study: Project # [id number], Adzing And Boring Machine Feeder: Mykel Gill, MS, MPH. SUMMARY: Goal: Establish [...] contact study staff at ; after hours Adzing And Boring Machine Feeder via the [facility] hospital fusion operator . - Please contact study team before resolving/deleting from patients problem list. Study phone number: [phone]. Diagnosis changed due to Research Module. Go [...] Specialty Care Team Description 05/17/2023 Pharmacy Pharmacy [facility] Hem/Onc [address] [facility] [place] [address] 07/21/2023 Office Visit Gastroenterology Vianey Corrigan CRNP [address] [facility] [place] [address] Pending Results Name Type Priority Associated Diagnoses Date /Time COMPREHENSIVE METABOLIC PANEL Lab STAT 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) 05/10/2023 11:20 AM EDT HEPATITIS B SURFACE ANTIGEN Lab STAT 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) 05/10/2023 11:20 AM EDT HEPATITIS B SURFACE ANTIBODY Lab STAT 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) 05/10/2023 11:20 AM EDT HEPATITIS B CORE ANTIBODIES IGG AND IGM Lab STAT 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) 05/10/2023 11:20 AM EDT Health Maintenance Due Date Last [...] Date/Time Associated Diagnosis Comments DIFFERENTIAL, AUTOMATED STAT 05/10/2023 11:20 AM EDT 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) CBC WITH WBC DIFFERENTIAL STAT 05/10/2023 11:20 AM EDT 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) CBC STAT 05/10/2023 11:20 AM EDT 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) documented in this encounter Results * (ABNORMAL) DIFFERENTIAL, AUTOMATED (05/10/2023 11:20 AM EDT) WBC 8.81 4.00 - 10.80 K/uL 05/10/2023 11:26 AM EDT LABORATORY [facility] 56-02 Neutrophils % 59.9 40.0 - 75.0 % 05/10/2023 11:26 AM EDT [facility] 56 Lymphocytes % 26.7 18.0 - 42.0 % 05/10/2023 11:26 AM EDT [facility] 56 Monocytes % 11.9(H) 1.0 - 11.0 % 05/10/2023 11:26 AM EDT [facility] 56 Eosinophils % 1.5 0.0 - 6.0 % 05/10/2023 11:26 AM EDT [facility] 56 Basophils % 0.0 0.0 - 2.0 % 05/10/2023 11:26 AM EDT [facility] 56 Absolute Neutrophils 5.28 1.80 - 7.70 K/uL 05/10/2023 11:26 AM EDT [facility] 56 Absolute Lymphocytes 2.35 1.00 - 4.80 K/ul 05/10/2023 11:26 AM EDT [facility] 56 Absolute Monocytes 1.05 0.00 - 1.10 K/uL 05/10/2023 11:26 AM EDT [facility] 56 Absolute Eosinophils 0.13 0.00 - 0.70 K/uL 05/10/2023 11:26 AM EDT [facility] 56 Absolute Basophils 0.00 0.00 - 0.20 K/uL 05/10/2023 11:26 AM EDT [facility] 56 Blood Venous blood specimen / Unknown Venipuncture / Unknown 05/10/2023 11:20 AM EDT 05/10/2023 11:21 AM EDT Traci Mitchell MD LAB BLOOD ORDERABLES [facility] [address]- [address] [place] [address] * (ABNORMAL) CBC (05/10/2023 11:20 AM EDT) WBC 8.81 4.00 - 10.80 K/uL 05/10/2023 11:26 AM EDT [facility] 56- RBC 3.94 3.85 - 5.15 M/uL 05/10/2023 11:26 AM EDT [facility] 56- HGB 10.3(L) 12.0 - 15.3 g/dL 05/10/2023 11:26 AM EDT [address] HCT 32.8(L) 36.0 - 45.2 % 05/10/2023 11:26 AM EDT [address] MCV 83.2 81.5 - 97.5 fL 05/10/2023 11:26 AM EDT [address] MCH 26.1 27.0 - 34.0 pg 05/10/2023 11:26 AM EDT [address] MCHC 31.4 32.0 - 36.0 g/dL 05/10/2023 11:26 AM EDT [address] RDW 18.7 11.5 - 15.5 % 05/10/2023 11:26 AM EDT [address] PLT 450(H) 140 - 400 K/uL 05/10/2023 11:26 AM EDT [address] MPV 8.5 6.6 - 11.1 fL 05/10/2023 11:26 AM EDT [address] Blood Venous blood specimen / Unknown Venipuncture / Unknown 05/10/2023 11:20 AM EDT 05/10/2023 11:21 AM EDT Traci Mitchell MD LAB BLOOD ORDERABLES Performing Organization Address City/State/[facility] Co de Phone Number [place] [address] [place], [place] [id number] documented in this encounter Visit Diagnoses Diagnosis 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) documented in this encounter Advance Directives Documents on File Type Date Recorded Patient Immigration Judge Expl anation Advance Directives and Living Will 06/24/2022 ADVANCE DIRECTIVE / LIVING WILL Power of Groundwater Consultant 06/24/2022 POWER OF A TTORNEY Latest Code Status on File Code Status Date Activated Date Inactivated Comments No Code 03/20/2023 1:42 AM 03/21/2023 5:59 PM This order reflects the patients wishes and were consensually agreed upon. Question Answer Comments Discussion of Advance Directives occurred with: Patient Care Teams Manager Data Warehouse Relationship Specialty Start Date End Date Gabby Balderas, DO [address] [place] [address] PCP - General Family Medicine 03/25/23 documented as of this encounter
--- OUTSIDE RECORDS SUMMARY | 2023-07-05 14:44 | External Medical Summary | Summary of Care ---
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 With or without food. 240 Tablet 2 04/25/2023 Active Ondansetron HCl 4 MG Oral TabletIndication [...] before bedtime. 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 60 Tablet 2 03/30/2023 3 Discontinue d(Refill) documented as of this encounter (statuses as of 05/13/2023) Active Problems Problem Noted Date Primary cancer of left upper lobe of toby g 03/30/2023 Cancer Staging:Clinical:Stage STEVE(cT3, cN3, cM1b) - Signed by Traci Thomson MD on 04/12/2023 Encounter for antineoplastic chemotherap [...] as of this encounter (statuses as of 05/13/2023) Resolved Problems Problem Noted Date Resolved Date Encounter for examination fo r normal comparison and control in clinical research program 11/21/2017 06/01/2020 Overview: DO NOT DELETE [facility] DETECT Study: Project # [id number], Reproduction Technician: Khadar Dodd, PhD. SUMMARY: Goal: Establish [...] contact study staff at ; after hours Reproduction Technician via the [facility] hospital carbon coating machine operator . Please contact study team before resolving/deleting from patients problem list. Study phone number: [phone]. Diagnosis changed due to Research Module. Go to Snapshot for study details. Encounter for examination fo r normal comparison and control in clinical research program 11/21/2017 06/30/2022 Overview: DO NOT DELETE - [facility] DETECT Study: Project # [id number], Reproduction Technician: Mykel Gill, MS, MPH. SUMMARY: Goal: [...] contact study staff at ; after hours Reproduction Technician via the [facility] hospital carbon coating machine operator . - Please contact study team before resolving/deleting from patients problem list. Study phone number: [phone]. Diagnosis changed due to Research Module. Go to Snapshot for study details. documented as of this encounter (statuses as of 05/13/2023) Immunizations Name Administration Dates Next Due Covid-19 [...] encounter Miscellaneous Notes * Telephone Encounter - Megan Momin RPh - 05/13/2023 8:44 AM EDT Signed Prescriptions: Disp Refills Apixaban 5 MG Oral Tablet (Eliquis) 60 Tab*1 Sig: Take 1 Tablet by mouth in the morning and 1 Tablet before bedtime.Authorizing Provider: Alexander THOMSON User: MEGAN MOMIN * Telephone Encounter - Megan Momin RPh - 05/13/2023 8:44 AM EDT Patient is switching pharmacies. Reissued balance of refills on current prescription(s) to [facility] Thank you, Megan Momin, BhavanaD, SHANITA Clinical Pharmacist [facility] ([facility]) (formerly Telepharmacy) 05/13/23 8:44 AM [phone] * Telephone Encounter - Hiral Oliveira CPhT - 05/13/2023 8:28 AM EDT [facility] out and patient needs today Please reroute Rx to [facility]. Pending Prescriptions: Disp Refills Apixaban 5 MG Oral Tablet (Eliquis) 60 Tab*2 Sig: Take 1 Tablet by mouth in the morning and 1 Tablet before bedtime. Last Visit: 03/30/2023 (in office), 04/12/2023 (telemedicine) Visit date not found If no future appointments scheduled, and last appointment is greater than a year ago, please schedule patient for a follow-up appointment Last date the medication was ordered: 03/30/2023 Patient Phone Numbers Labs: Lab Results Component Value Date/Time CREAT 0.9 05/10/2023 11:20 AM CREAT 0.9 01/25/2017 09:57 AM POTASSIUM 4.2 05/10/2023 11:20 AM POTASSIUM 4.6 01/25/2017 09:57 AM TSH 1.48 04/18/2023 11:40 AM TSH 1.48 01/25/2017 09:57 AM LDLCALC 100 03/11/2023 09:05 AM LDLCALC 140 (A) 10/17/2022 12:00 AM LDLCALC 128 01/25/2017 09:57 AM LDLDIRECT NOT APPLICABLE 01/25/2017 09:57 AM ALT 9 (L) 05/10/2023 11:20 AM ALT 15 01/25/2017 09:57 AM HGBA1C 5.6 08/19/2021 12:19 PM documented in this encounter Plan of Treatment Upcoming Encounters Date Type Specialty Care Team Description 05/17/2023 Pharmacy [facility] [address] [facility] [place] [address] 06/14/2023 Laboratory Laboratory [facility] [address] [place] [address] 06/21/2023 Office Visit Hematology Oncology Hesham Bray MD [address] [place] [address] 07/21/2023 Office Visit Gastroenterology Vianey Corrigan CRNP [address] [place] [address] Health Maintenance Due Date Last Done Comments [...] Documents on File Type Date Recorded Patient Adjunct Writing Instructor Expl anation Advance Directives and Living Will 06/24/2022 ADVANCE DIRECTIVE / LIVING WILL Power of Waist Fitter 06/24/2022 POWER OF A TTORNEY Latest Code Status on File Code Status Date Activated Date Inactivated Comments No Code 03/20/2023 1:42 AM 03/21/2023 5:59 PM This order reflects the patients wishes and were consensually agreed upon. Question Answer Comments Discussion of Advance Directives occurred with: Patient
--- OUTSIDE RECORDS SUMMARY | 2023-07-05 14:44 | External Medical Summary ---
Author Name Unknown Address Unknown Organization K09:[facility] [place] [address] Laboratory Report Ordering Provider Test Date Status BERTO ALAS 05/10/2023 11:20:31 Final Observation Date Value Abnormality Reference (Units ) Status WBC, Total 05/10/2023 11:20:31 8.81 4.00-10.8 0 (K/uL) Final RBC 05/10/2023 11:20:31 3.94 3.85-5.15 (M/uL) Final Hemoglobin 05/10/2023 11:20:31 10.3 Below low normal 12 .0-15.3 (g/dL) Final HCT 05/10/2023 11:20:31 32.8 Below low normal 36. 0-45.2 (%) Final MCV 05/10/2023 11:20:31 83.2 81.5-97.5 (fL) Final MCH 05/10/2023 11:20:31 26.1 27.0-34.0 (pg) Final MCHC 05/10/2023 11:20:31 31.4 32.0-36.0 (g/dL) Final RDW 05/10/2023 11:20:31 18.7 11.5-15.5 (%) Final Platelets 05/10/2023 11:20:31 450 Above high normal 14 0-400 (K/uL) Final MPV 05/10/2023 11:20:31 8.5 6.6-11.1 ( fL) Final Performing Location [facility] [place] [address]
--- OUTSIDE RECORDS SUMMARY | 2023-07-05 14:44 | External Medical Summary | Summary of Care ---
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)* Allergies No known active allergiesdocumented as of this encounter (statuses as of 05/17/2023) Medications Medication Sig Dispensed Refills Start Date [...] as of this encounter (statuses as of 05/17/2023) Active Problems Problem Noted Date Primary cancer [...] as of this encounter (statuses as of 05/17/2023) Resolved Problems Problem Noted Date Resolved Date Encounter for examination fo r normal comparison and control in clinical research program 11/21/2017 06/01/2020 Overview: DO NOT DELETE [employer] [facility] Study: Project # [id number], Clinical Reimbursement Specialist: Khadar Dodd, PhD. SUMMARY: Goal: Establish test [...] contact study staff at ; after hours Clinical Reimbursement Specialist via the [facility] hospital firepot operator and tender . Please contact study team before resolving/deleting from patients problem list. Study phone number: [phone]. Diagnosis changed due to Research Module. Go to Snapshot for study details. Encounter for examination fo r normal comparison and control in clinical research program 11/21/2017 06/30/2022 Overview: DO NOT DELETE - [employer] [facility] Study: Project # [id number], Clinical Reimbursement Specialist: Mykel Gill, MS, MPH. SUMMARY: Goal: Establish [...] contact study staff at ; after hours Clinical Reimbursement Specialist via the [facility] hospital firepot operator and tender . - Please contact study team before resolving/deleting from patients problem list. Study phone number: [phone]. Diagnosis changed due to Research Module. Go to Snapshot for study details. documented as of this encounter (statuses as of 05/17/2023) Immunizations Name Administration Dates Next Due Covid-19 [...] this encounter Progress Notes * Karo Jean RPh - 05/16/2023 11:41 AM EDT MEDICATION THERAPY MANAGEMENT SOTORASIB TREATMENT PROGRESS NOTE Reba Delaney [id number] Patient Phone Numbers Cell Home [phone] DaughterErin Preferred Lab: [facility] Specialty Pharmacy: [facility] Specialty Communication: Left message requesting return call to assess toleration to therapyErin Treatment: Medication: Sotorasib (Lumakras) Indication/Staging/Diagnosis Code: NSCLC w/ mets C34.12 Dose: 960 mg PO daily Administration: +/- food Start Date: 04/28/23 Primary Cardiac Monitor Technician/Oncologist: Katarina (formerly Dr. Mitchell) Supportive Care Meds: Olanzapine Ondansetron Interval History: n/a Changes to medication list since last visit? No Assessment and Plan: Continue current therapy and q3wk labs (next due 05/31/23) LM requesting call back to assess tolerability Assessment of compliance: N/A Assessment of adverse effects attributed to drug therapy: N/A Dose adjustment needed based on lab or adverse drug reaction? N/A Follow up: 1 week Karo Jean, PharmD, BCOP Clinical Pharmacist, [facility] Oral Chemotherapy [facility] 05/17/2023, 2:42 PM Monitoring Parameters: Estimated CrCl Serum creatinine: 0.9 mg/dL 05/10/23 1120 Estimated creatinine clearance: 39.1 mL/min Hepatitis panel Ordered to be completed with next labs Suggested lab monitoring CBCd as indicated, CMP every 3 weeks for first 3 months, then monthly Treatment Parameters See PI Time Spent on Encounter: < 5 minutes documented in this encounter Plan of Treatment Upcoming Encounters Date Type Specialty Care Team Description 05/24/2023 Pharmacy [facility] [address] [facility] [place] [address] 06/14/2023 Laboratory Laboratory [facility] [address] [place] [address] 06/21/2023 Office Visit Hematology Oncology Hesham Bray MD [address] [place] [address] 07/21/2023 Office Visit Gastroenterology Vianey Corrigan CRNP [address] [place] [address] Health Maintenance Due Date Last Done Comments [...] Documents on File Type Date Recorded Patient Brim Molder Expl anation Advance Directives and Living Will 06/24/2022 ADVANCE DIRECTIVE / LIVING WILL Power of Cisco Engineer 06/24/2022 POWER OF A TTORNEY Latest Code Status on File Code Status Date Activated Date Inactivated Comments No Code 03/20/2023 1:42 AM 03/21/2023 5:59 PM This order reflects the patients wishes and were consensually agreed upon. Question Answer Comments Discussion of Advance Directives occurred with: Patient
--- OUTSIDE RECORDS SUMMARY | 2023-07-05 14:44 | External Medical Summary | Summary of Care ---
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 SUMMARY: Goal: Establish test [...] contact study staff at ; after hours Programmer Or Analyst via the [facility] hospital ticket machine operator . Please contact study team before resolving/deleting from patients problem list. Study phone number: [phone]. Diagnosis changed due to Research Module. Go to Snapshot for study details. Encounter for examination fo r normal comparison and control in clinical research program 11/21/2017 06/30/2022 Overview: DO NOT DELETE - [employer] [facility] Study: Project # [id number], Programmer Or Analyst: Mykel Gill, MS, MPH. SUMMARY: Goal: Establish [...] contact study staff at ; after hours Programmer Or Analyst via the [facility] hospital ticket machine operator . - Please contact study team before resolving/deleting from patients problem list. Study phone number: [phone]. Diagnosis changed due to Research Module. Go to Snapshot for study details. 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 Mitchell) Supportive Care Meds: Olanzapine Ondansetron Interval History: No concerns, tolerating therapy well Changes to medication list since last visit? No Assessment and Plan: Continue current therapy and q3wk labs (pt to walk in) Assessment of compliance: compliant Assessment of adverse effects attributed to drug therapy: Nausea/Vomiting - absent Diarrhea - absent Edema - absent Rash - absent Musculoskeletal pain - absent Dose adjustment needed based on lab or adverse drug reaction? No Follow up: 1 week Karo Jean, PharmD, BCOP Clinical Pharmacist, [facility] Oral Chemotherapy [facility] 05/24/2023, 2:39 PM Monitoring Parameters: Estimated CrCl Serum creatinine: 0.9 mg/dL 05/10/23 1120 Estimated creatinine clearance: 39.1 mL/min Hepatitis panel Ordered to be completed with next labs Suggested lab monitoring CBCd as indicated, CMP every 3 weeks for first 3 months, then monthly Treatment Parameters See PI Time Spent on Encounter: 6 - 10 minutes Encounter Group: Oncology Encounter Interventions Item Category: Oral Chemotherapy Other: Sotorasib Problem/Rationale: Safety: Needs additional monitoring - Medication Requires monitoring Pharmacist Intervention(s): Toxicity monitoring Magnitude of Intervention: Monitoring with direction (Level 1) documented in this encounter Plan of Treatment Upcoming Encounters Date Type Specialty Care Team Description 06/14/2023 Laboratory Laboratory [facility], [facility] [address] [place] [address] 06/21/2023 Office Visit Hematology Oncology Hesham Bray MD [address] [place] [address] 07/21/2023 Office Visit Gastroenterology Vianey Corrigan CRNP [address] [place] [address] Health Maintenance Due Date Last Done Comments [...] Documents on File Type Date Recorded Patient Sales Representative Uniforms Expl anation Advance Directives and Living Will 06/24/2022 ADVANCE DIRECTIVE / LIVING WILL Power of Trash Hauler 06/24/2022 POWER OF A TTORNEY Latest Code Status on File Code Status Date Activated Date Inactivated Comments No Code 03/20/2023 1:42 AM 03/21/2023 5:59 PM This order reflects the patients wishes and were consensually agreed upon. Question Answer Comments Discussion of Advance Directives occurred with: Patient
--- OUTSIDE RECORDS SUMMARY | 2023-07-05 14:44 | External Medical Summary | Summary of Care ---
Author Name Unknown Organization [facility] Address [address] [place] [address] Phone [phone] Care Team Providers Care Remnant Sorter Name Role Phone Unavailable Primary Care Provider Unavailabl e Reason for Visit * Reason Onset Date Comments Forms Request 04/21/2023 Encounter Details Date Type Department Care Team Description 04/21/2023 Telephone Family Practice [facility] [address] [facility] [place] [address] Gabby Balderas, [address] [place] [address] Forms Request Allergies No known active allergiesdocumented as of this encounter (statuses as of 05/16/2023) Medications Medication Sig Dispensed Refills Start Date [...] before bedtime. 180 Tablet 1 04/13/2023 Active Omeprazole 20 MG Oral Capsule Delayed [...] as of this encounter (statuses as of 05/16/2023) Active Problems Problem Noted Date Primary cancer of left upper lobe of tboy g 03/30/2023 Cancer Staging:Clinical:Stage STEVE(cT3, cN3, cM1b) [...] Overview: Had Left Replaced Yrs Ago, dr ortega Eller Trigger finger of right thumb 08/08/2016 ADVANCE DIRECTIVE INFORMATION 08/18/2006 Overview: No, Advance Directive brochure given to patient. 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 SUMMARY: Goal: Establish test [...] contact study staff at ; after hours Basketball Player via the [facility] hospital top precipitator operator helper . Please contact study team before resolving/deleting from patients problem list. Study phone number: [phone]. Diagnosis changed due to Research Module. Go to Snapshot for study details. Encounter for examination fo r normal comparison and control in clinical research program 11/21/2017 06/30/2022 Overview: DO NOT DELETE [facility] Study: Project # [id number], Basketball Player: Mykel Gill, MS, MPH. SUMMARY: Goal: Establish [...] contact study staff at ; after hours Basketball Player via the [facility] hospital top precipitator operator helper . - Please contact study team before resolving/deleting from patients problem list. Study phone number: [phone]. Diagnosis changed due to Research Module. Go to Snapshot for study details. documented as of this encounter (statuses as of 05/16/2023) Immunizations Name Administration Dates Next Due Covid-19 [...] encounter Miscellaneous Notes * Telephone Encounter - Alaina Hughes LPN - 04/25/2023 2:05 PM EDT Ammon Delaney is the son, he states that he has unlimited sick time the FMLA form is just a format ly. Son states the form is for him for his mom. The number of days will be based on the number of his mother's chemo tx max of two days a week and until mothers tx's are done. * Telephone Encounter - Ortega Estevez MD - 04/25/2023 12:35 PM EDT 1/ Is pt our patient? 2/ If FMLA form is to be completed, need an outline (how much time is anticipated he/ she wqill be off and how many days per week or month will time off be needed.from the person who is asking for form completion to * Telephone Encounter - Jahaira Clark LPN - 04/25/2023 9:52 AM EDT Please see below and advise- Are the covering providers able to complete this based on office note from Farhana? If it needs filled out prior to Farhana's return-does she need an appointment to discuss? * Telephone Encounter - KRISTA Grossman - 04/24/2023 10:09 AM EDT Patient's son asked if another provider could fill out paperwork. His employer contacted him on Monday and told him that they are canceling the FMLA until they get the paperwork. Please call to discuss: [phone] * Telephone Encounter - Jahaira Clark LPN - 04/21/2023 3:25 PM EDT This has been received and placed in provider's bin for completion. She is out of the office until 05/01/23 and it will be completed upon return. * Telephone Encounter - Re Burleson LPN - 04/21/2023 9:38 AM EDT FMLA paperwork received from pts son Pt has not been seen in our office, per myg on 04/04/2023 Farhana willing to complete Faxed to [place] office documented in this encounter Plan of Treatment Upcoming Encounters Date Type Specialty Care Team Description 05/17/2023 Pharmacy [facility]acy [facility] [address] [facility] [place] [address] MEDICATION THERAPY MANAGEMENT SOTORASIB 06/14/2023 Laboratory Laboratory [facility] [address] [facility] [place] [address] 06/21/2023 Office Visit Hematology Oncology Hesham Bray MD [address] [facility] [place] [address] 07/21/2023 Office Visit Gastroenterology Vianey Corrigan CRNP [address] [place] [address] Health Maintenance Due Date Last Done Comments [...] Documents on File Type Date Recorded Patient Moving Worker Expl anation Advance Directives and Living Will 06/24/2022 ADVANCE DIRECTIVE / LIVING WILL Power of First Aid Teacher 06/24/2022 POWER OF A TTORNEY Latest Code Status on File Code Status Date Activated Date Inactivated Comments No Code 03/20/2023 1:42 AM 03/21/2023 5:59 PM This order reflects the patients wishes and were consensually agreed upon. Question Answer Comments Discussion of Advance Directives occurred with: Patient
--- OUTSIDE RECORDS SUMMARY | 2023-07-05 14:44 | External Medical Summary ---
Author Name Unknown Address Unknown Organization K01:[facility] [address] [place] [address] Laboratory Report Ordering Provider Test Date Status BERTO ALAS 05/10/2023 11:20:31 Final Observation Date Value Abnormality Reference (Units ) Status Hep B surface Ag 05/10/2023 11:20:31 Negative Neg ative Final Performing Location [facility] - [address] [place] [address]
--- OUTSIDE RECORDS SUMMARY | 2023-07-05 14:44 | External Medical Summary ---
Author Name Unknown Address Unknown Organization K09:[facility] [place] [place] [address] Laboratory Report Ordering Provider Test Date Status BERTO ALAS 05/31/2023 15:01:51 Final Observation Date Value Abnormality Reference (Units ) Status WBC, Total 05/31/2023 15:01:51 11.14 Above high normal 4 .00-10.80 (K/uL) Final RBC 05/31/2023 15:01:51 3.96 3.85-5.15 (M/uL) Final Hemoglobin 05/31/2023 15:01:51 10.5 Below low normal 12 .0-15.3 (g/dL) Final HCT 05/31/2023 15:01:51 33.6 Below low normal 36. 0-45.2 (%) Final MCV 05/31/2023 15:01:51 84.8 81.5-97.5 (fL) Final MCH 05/31/2023 15:01:51 26.5 27.0-34.0 (pg) Final MCHC 05/31/2023 15:01:51 31.3 32.0-36.0 (g/dL) Final RDW 05/31/2023 15:01:51 22.7 11.5-15.5 (%) Final Platelets 05/31/2023 15:01:51 519 Above high normal 14 0-400 (K/uL) Final MPV 05/31/2023 15:01:51 9.1 6.6-11.1 ( fL) Final Performing Location [facility] [place] [address]
--- OUTSIDE RECORDS SUMMARY | 2023-07-05 14:45 | External Medical Summary ---
Author Name Unknown Address Unknown Organization K09:[facility] [place] [address] Laboratory Report Ordering Provider Test Date Status BERTO ALAS 05/10/2023 11:20:31 Final Observation Date Value Abnormality Reference (Units ) Status BUN 05/10/2023 11:20:31 23 Above high normal 6-20 (mg/dL) Final Creatinine 05/10/2023 11:20:31 0.9 0.5-1.0 (mg/dL) Final Glomerular filtration rate/1.73 sq M.predicted [Volume Rate/Area] in Serum, Plasma or Blood by Creatinine-based formula (CKD-EPI) 05/10/2023 11:20:31 68 >=60 (mL/min) Final Performing Location [facility] [place] [address]
--- OUTSIDE RECORDS SUMMARY | 2023-07-05 14:45 | External Medical Summary ---
Author Name Unknown Address Unknown Organization [id number]:[facility] [address] [place] [address] Laboratory Report Ordering Provider Test Date Status BERTO ALAS 05/10/2023 11:20:31 Final Observation Date Value Abnormality Reference (Units) Status Hepatitis B virus surface Ab [Units/volume] in Serum or Plasma by Immunoassay 05/10/2023 11:20:31 <3.5 (mIU/mL) Final Hepatitis B virus surface Ab [Presence] in Serum by Immunoassay 05/10/2023 11:20:31 Negative Final HEPATITIS B SURFACE ANTIBODY, INTERPRETATION 05/10/2023 11:20:31 NOT immune to Hepatitis B Virus Final Performing Location [facility] - [address] [place] [address]
--- OUTSIDE RECORDS SUMMARY | 2023-07-05 14:45 | External Medical Summary ---
Author Name Unknown Address Unknown Organization K09:[facility] [place] [address] Laboratory Report Ordering Provider Test Date Status BERTO ALAS 05/10/2023 11:20:31 Final Observation Date Value Abnormality Reference (Units ) Status SYNC LEUKOCYTES IN BLOOD BY AUTOMATED COUNT 05/10/2023 11:20:31 8.81 4.00-10.80 (K/uL) Final Segs 05/10/2023 11:20:31 59.9 40.0-75.0 (%) Final Lymphs % 05/10/2023 11:20:31 26.7 18.0-42.0 (%) Final Monos 05/10/2023 11:20:31 11.9 Above high normal 1.0-11.0 (%) Final Eosinophils 05/10/2023 11:20:31 1.5 0.0-6.0 (%) Final Basos 05/10/2023 11:20:31 0.0 0.0-2.0 (%) Final Absolute Segs 05/10/2023 11:20:31 5.28 1.80-7.70 (K/uL) Final Lymphs, absolute 05/10/2023 11:20:31 2.35 1.00-4.80 (K/ul) Final Monos, Abs 05/10/2023 11:20:31 1.05 0.00-1.10 (K/uL) Final Eos, Abs 05/10/2023 11:20:31 0.13 0.00-0.70 (K/uL) Final Basos, Abs 05/10/2023 11:20:31 0.00 0.00-0.20 (K/uL) Final Performing Location [facility] [place] [address]
--- OUTSIDE RECORDS SUMMARY | 2023-07-05 14:45 | External Medical Summary | Summary of Care ---
Author Name Unknown Organization [facility] Address [address] [place] [address] Phone [phone] Care Team Providers Care Tactical Intelligence Officer Name Role Phone Gabby Balderas Primary Care Provider [phone] Reason for Visit * Reason Onset Date Comments Medication Question 04/25/2023 Encounter Details Date Type Department Care Team Description 04/25/2023 Telephone Pharmacy Hematology Oncology [facility] [address] [place], [place] [id number] Traci Mitchell MD [address] [place] [address] Medication Question Allergies No known active allergiesdocumented as of this encounter (statuses as of 04/25/2023) Medications Medication Sig Dispensed Refills Start Date End Date Status Vitamin D 25 MCG (1000 UT) Oral Tablet Take 1 Tablet by mouth in the morning. 0 Active Omeprazole 20 MG Oral Capsule Delayed Release (PriLOSEC)Indications :Gastroesophageal reflux disease, unspecified whether esophagitis present,Anemia, unspecified type Take 1 Capsule by mouth in the morning. 1 hour before the first meal of the day. 30 Capsule 1 03/17/2023 Active Vitron-C 65-125 MG Oral Tablet (Iron-Vitamin C 65-125 mg per tab)Indications:Other iron deficiency anemia Take 1 Tablet by mouth in the morning and 1 Tablet before bedtime. For iron supplement, generic, take with food. 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 60 Tablet 2 03/30/2023 Active Sulfamethoxazole-Trim ethoprim 800-160 MG Oral Tablet (Bactrim DS) Take 1 Tablet by mouth in the morning and 1 Tablet before bedtime. 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 30 Tablet 0 04/13/2023 Active Famotidine 20 MG Oral Tablet (Pepcid) Take 1 Tablet by mouth in the morning and 1 Tablet before bedtime. 180 Tablet 1 04/13/2023 Active documented as of this encounter (statuses as of 04/25/2023) Active Problems Problem Noted Date Primary cancer [...] as of this encounter (statuses as of 04/25/2023) Resolved Problems Problem Noted Date Resolved Date Encounter for examination fo r normal comparison and control in clinical research program 11/21/2017 06/01/2020 Overview: DO NOT DELETE [facility] DETECT Study: Project # [id number], Manager Operations Research: Khadar Dodd, PhD. SUMMARY: Goal: Establish test [...] contact study staff at ; after hours Manager Operations Research via the [facility] hospital gang ripsaw operator . Please contact study team before resolving/deleting from patients problem list. Study phone number: [phone]. Diagnosis changed due to Research Module. Go to Snapshot for study details. Encounter for examination fo r normal comparison and control in clinical research program 11/21/2017 06/30/2022 Overview: DO NOT DELETE - [employer] DETECT Study: Project # [id number], Manager Operations Research: Mykel Gill, MS, MPH. SUMMARY: Goal: Establish [...] contact study staff at ; after hours Manager Operations Research via the [facility] hospital gang ripsaw operator . - Please contact study team before resolving/deleting from patients problem list. Study phone number: [phone]. Diagnosis changed due to Research Module. Go to Snapshot for study details. documented as of this encounter (statuses as of 04/25/2023) Immunizations Name Administration Dates Next Due Covid-19 [...] encounter Miscellaneous Notes * Telephone Encounter - Kelly Eugene RPh - 04/25/2023 10:05 AM EDT Addendum 04/25/23: In reviewing chart, scanned documented from 04/21 advisrachelle June approved Sent SM to [facility] requesting test claim on prescription - prescription can be filled via [facility] Speciality Per discussion with Dr. Mitchell - released prescription to pharmacy for start of treatment Returned call to patient's daughter- advised that prescription is being sent to pharmacy at [facility] She expressed concerns regarding delay of prescription being received Advised that [facility] pharmacy typically allows speciality pharmacy about 24 hours to process before following up Provided [facility] speciality pharmacy for joaquim's daughter to call if she wishes to follow-up sooner but advised [facility] may not receive prescription and process the moment prescription is sent [facility] H/o tech will follow-up with speciality pharmacy in 1 day to confirm prescription received and processed MTM will provide new education once medication scheduled for delivery Bhavana PizarroD Ambulatory Clinical Pharmacist | Oral Chemotherapy Clinic [facility] 04/25/2023 10:06 AM Time Spent on Encounter: 21 - 25 minutes Encounter Group: Oncology Encounter Interventions Item Category: Oral Chemotherapy Other: Sotorasib Problem/Rationale: [place] Plan Review: Clinical Review Pharmacist Intervention(s): Care coordination, Clarification with Provider, Contacted specialty pharmacy, Medication prescribed and Referral review Magnitude of Intervention: Modification of medication for asymtomatic patients (Level 2) * Telephone Encounter - Rosa Moreno CPhT - 04/25/2023 9:08 AM EDT MEDICATION THERAPY MANAGEMENTSOTORASIB TREATMENT STATUS NOTE Reba Delaney [id number] Patient Phone Numbers Communication: Voicemail received Treatment: Medication:Sotorasib (Lumakras) Indication/Staging/Diagnosis Code: NSCLC w/ mets C34.12 Dose:960 mg PO daily Administration:+/- food Start Date:D Primary Byproducts Maker/Oncologist:Dr. Mitchell Caller: Daughter - Erin Incoming Request: Patient has questions regarding oral chemotherapy Action: Sent telephone encounter to pharmacist for follow-up Additional Notes: Requesting a return call @ . Has questions about Lumakras. Rosa Moreno Architectural Inspector II [facility] Oral Chemotherapy Clinic 04/25/2023 9:10 AM Time Spent on Encounter: < 5 minutes documented in this encounter Plan of Treatment Upcoming Encounters Date Type Specialty Care Team Description 04/26/2023 Pharmacy Pharmacy [facility] Hem[facility]Onc [address] [place] [address] 04/27/2023 Pharmacy Pharmacy [facility] Hem[facility]Onc [address] [place] [address] 05/10/2023 Office Visit Hematology Oncology Hesham Bray MD [address] [place] [address] 07/21/2023 Office Visit Gastroenterology Vianey Corrigan CRNP [address] [facility] [place] [address] Health Maintenance Due Date Last Done Comments DXA Scan 02/08/2020 02/07/2017, 01/29, 02/20/2014, Additional history exists COVID-19 Vaccine (2 - Booster for Pierce series) 01/18/2022 11/23/2021 Zoster Vaccines (2 of 2) 10/20/2022 08/25/2022 Pneumococcal Vaccine: 65+ Years (2 - PCV) 11/04/2022 11/04/2021 Influenza Vaccine (FLU shot) (Season Ended) 2023 Depression Screening, Annual for Pts 12 [...] Documents on File Type Date Recorded 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 Question Answer Comments Discussion of Advance Directives occurred with: Patient Care Teams Tactical Intelligence Officer Relationship Specialty Start Date End Date Gabby Balderas DO [address] [place] [address] PCP - General Family Medicine 03/25/23 documented as of this encounter"
--- OUTSIDE RECORDS SUMMARY | 2023-07-05 14:45 | External Medical Summary | Summary of Care ---
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 The planned duration of treatment is: Until disease progression/toxicity Please start oral chemotherapy: Once therapy has arrived from specialty pharmacy Oral Chemotherapy Monitoring will continue until one of the following discharge criteria has been met. The provider will be informed if any of these occur. 1. Disease progression. 2. Patient non-compliance 3. Compliance and tolerating treatment well without major toxicities with routine provider follow up. 4. Completion of therapy. Additional Comments: N/a By my signature, I understand that my patient will have their medication therapy managed by the [facility] Medication Therapy Disease Management Clinic (MTD) per established policies, procedures, and protocols. I also certify that this referral may serve as an initiation of service for the management of drug therapy in the above noted patient. [facility] providers will be responsible for scheduling patient visits, obtaining appropriate laboratory studies, and adjusting medication management therapy per patient's need, in addition to those roles spelled out in the clinic policy, procedures, and drug management protocols. I understand that the service provided by the [facility] is voluntary and have informed patient that they can refuse the service at their discretion. I am aware that the [facility] Clinic will provide me with a copy of the patient encounter via my [employer]. I authorize the [facility] to carry out these activities on my behalf. I consider this program to be a necessary part of the patient's medical care. Encounter Details Date Type Department Care Team Description 04/25/2023 Orders Only Hematology Oncology [address] [address] Traci Mitchell MD [address] [place] [address] Primary cancer of left upper [...] 1 04/13/2023 Active Sotorasib 120 MG Oral TabletIndications:Gladys arango cancer of left upper lobe of lung (HCC) Take 960 mg by mouth in the morning. With or without food. 240 Tablet 2 04/25/2023 Active Ondansetron HCl 4 MG Oral TabletIndications:Gladys arango cancer of left upper lobe of lung (HCC) Take 1 Tablet by mouth every 6 hours as needed for Nausea. 30 Tablet 3 04/25/2023 Active documented as of this encounter (statuses [...] research program 11/21/2017 06/01/2020 Overview: DO NOT [facility] DETECT Study: Project # [id number], Form Maker Plaster: Khadar Dodd, PhD. SUMMARY: Goal: Establish test [...] contact study staff at ; after hours Form Maker Plaster via the [facility] hospital strapping machine operator . Please contact study team before resolving/deleting from patients problem list. Study phone number: [phone]. Diagnosis changed due to Research Module. Go to Snapshot for study details. Encounter for examination fo r normal comparison and control in clinical research program 11/21/2017 06/30/2022 Overview: [facility] DETECT Study: Project # [id number], Form Maker Plaster: Mykel Gill, MS, MPH. SUMMARY: Goal: Establish [...] contact study staff at ; after hours Form Maker Plaster via the [facility] hospital strapping machine operator . - Please contact study team before resolving/deleting from patients problem list. Study phone number: [phone]. Diagnosis changed due to Research Module. 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) Every 3 Weeks for 4 Occurrences starting 04/25/2023 until 04/25/2024 COMPREHENSIVE METABOLIC PANEL Lab STAT 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) Every Month for 12 Occurrences starting 04/25/2023 until 04/25/2024 CBC WITH WBC DIFFERENTIAL Lab STAT 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) Every Month for 12 Occurrences starting 04/25/2023 until 04/25/2024 HEPATITIS B SURFACE ANTIGEN Lab STAT 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) Other, Please specify in Comments field for 1 Occurrences starting 04/25/2023 until 04/25/2024 HEPATITIS B SURFACE ANTIBODY Lab STAT 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) Other, Please specify in Comments field for 1 Occurrences starting 04/25/2023 until 04/25/2024 HEPATITIS B CORE ANTIBODIES IGG AND IGM Lab STAT 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) Other, Please specify in Comments field for 1 Occurrences starting 04/25/2023 until 04/25/2024 Scheduled Referrals Name Type Priority Associated Diagnoses Orde r Schedule PHARMACIST MEDS THERAPY MGMT REFERRAL OP Referral Within 3 days (urgent) 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 Question Answer Comments Discussion of Advance Directives occurred with: Patient Care Teams Freelance Designer Relationship Specialty Start Date End Date Gabby Balderas DO [address] [place] [address] PCP - General Family Medicine 03/25/23 documented as of this encounter
--- OUTSIDE RECORDS SUMMARY | 2023-07-05 14:45 | External Medical Summary | Summary of Care ---
Author Name Unknown Organization [facility] Address [address] [place] [address] Phone [phone] Care Team Providers Care Devops Engineer Name Role Phone Gabby Balderas Primary Care Provider [phone] Reason for Visit * Reason Onset Date Comments Medication Question 04/12/2023 Encounter Details Date Type Department Care Team Description 04/12/2023 Telephone Pharmacy Hematology Oncology [facility] [address] [place] [address] Kelly Eugene, [facility] [address] [place] [address] Medication Question Allergies No known active allergiesdocumented as of this encounter (statuses as of 04/26/2023) Medications Medication Sig Dispensed Refills Start Date End Date Status Vitamin D 25 MCG (1000 UT) Oral Tablet Take 1 Tablet by mouth in the morning. 0 Active Omeprazole 20 MG Oral Capsule Delayed Release (PriLOSEC)Indica tions:Gastroesop hageal reflux disease, unspecified whether esophagitis present,Anemia, unspecified type Take 1 Capsule by mouth in the morning. 1 hour before the first meal of the day. 30 Capsule 1 03/17/2023 Active Vitron-C 65-125 MG Oral Tablet (Iron-Vitamin C 65-125 mg per tab)Indications: Other iron deficiency anemia Take 1 Tablet by mouth in the morning and 1 Tablet before bedtime. For iron supplement, generic, take with food. 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 60 Tablet 2 03/30/2023 Active Sulfamethoxazole -Trimethoprim 800-160 MG Oral Tablet (Bactrim DS) Take 1 Tablet by mouth in the morning and 1 Tablet before bedtime. 10 Tablet 0 04/03/2023 Active Famotidine 20 MG Oral Tablet (Pepcid) Take 1 Tablet by mouth at bedtime as needed for Other (heartburn/r eflux symptoms). 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 30 Tablet 0 04/12/2023 3 Discontinued(Refi ll) documented as of this encounter (statuses as of 04/26/2023) Active Problems Problem Noted Date Primary cancer [...] as of this encounter (statuses as of 04/26/2023) Resolved Problems Problem Noted Date Resolved Date Encounter for examination fo r normal comparison and control in clinical research program 11/21/2017 06/01/2020 Overview: DO NOT DELETE [facility] [place] DETECT Study: Project # [id number], Real Estate Services Coordinator: Khadar Dodd, PhD. SUMMARY: Goal: Establish [...] contact study staff at ; after hours Real Estate Services Coordinator via the [facility] hospital manufacturing operator . Please contact study team before resolving/deleting from patients problem list. Study phone number: [phone]. Diagnosis changed due to Research Module. Go to Snapshot for study details. Encounter for examination fo r normal comparison and control in clinical research program 11/21/2017 06/30/2022 Overview: DO NOT DELETE - [facility] [place] DETECT Study: Project # [id number], Real Estate Services Coordinator: Mykel Gill, MS, MPH. SUMMARY: Goal: [...] contact study staff at ; after hours Real Estate Services Coordinator via the [facility] hospital manufacturing operator . - Please contact study team before resolving/deleting from patients problem list. Study phone number: [phone]. Diagnosis changed due to Research Module. Go to Snapshot for study details. documented as of this encounter (statuses as of 04/26/2023) Immunizations Name Administration Dates Next Due Covid-19 [...] encounter Miscellaneous Notes * Telephone Encounter - Farhana Doll PA-C - 04/13/2023 12:23 PM EDT Its going to have to be the timing of the meds Please have pharmacy rev with patient Farhana Doll PA-C 04/13/2023 12:23 PM * Telephone Encounter - Kelly Eugene [facility] - 04/12/2023 2:54 PM EDT A drug interaction was identified during initial review of new therapy. Please review the information below and provide guidance on how we should proceed. 1.) Interacting Drugs: Famotidine vs. Lumakras Interaction: Histamine H2 Receptor Antagonists may decrease the serum concentration of Sotorasib Severity: X. Avoid Combination Recommendation: Avoid coadministration of sotorasib and proton pump inhibitors, potassium-competitive acid blockers, or histamine H2 receptor antagonists. If coadministration of sotorasib and gastricacid suppressing medications cannot be avoided, use antacids instead of histamine H2 receptor antagonists (H2RAs), proton pump inhibitors (PPIs), or potassium-competitive acid blockers (PCABs) and administer sotorasib 4 hours before or 10 hours after oral antacid administration. 2.) Interacting Drugs: Omeprazole vs. Lumakras Interaction: Inhibitors of the Proton Pump (PPIs and PCABs) may decrease the serum concentration ofSotorasib Severity: X. Avoid Combination Recommendation: Avoid coadministration of sotorasib and proton pump inhibitors, potassium-competitive acid blockers, or histamine H2 receptor antagonists. If coadministration of sotorasib and gastricacid suppressing medications cannot be avoided, use antacids instead of histamine H2 receptor antagonists (H2RAs), proton pump inhibitors (PPIs), or potassium-competitive acid blockers (PCABs) and administer sotorasib 4 hours before or 10 hours after oral antacid administration Please review and advise how to proceed. Thank you, Kelly Eugene, PharmD Ambulatory Clinical Pharmacist | Oral Chemotherapy [facility] 04/12/2023 2:56 PM documented in this encounter Plan of Treatment Upcoming Encounters Date Type Specialty Care Team Description 04/27/2023 Pharmacy Pharmacy [facility] [place], [facility] Hem/Onc [address] [place] [address] 05/10/2023 Office Visit Hematology Oncology Hesham Bray MD [address] [place], [place] [id number] 07/21/2023 Office Visit Gastroenterology Vianey Corrigan CRNP [address] [facility] [facility] [place] [address] Health Maintenance Due Date Last Done Comments [...] Documents on File Type Date Recorded Patient Film Maker Expl anation Advance Directives and Living Will 06/24/2022 ADVANCE DIRECTIVE / LIVING WILL Power of Drawing Tender 06/24/2022 POWER OF A TTORNEY Latest Code Status on File Code Status Date Activated Date Inactivated Comments No Code 03/20/2023 1:42 AM 03/21/2023 5:59 PM This order reflects the patients wishes and were consensually agreed upon. Question Answer Comments Discussion of Advance Directives occurred with: Patient Care Teams Devops Engineer Relationship Specialty Start Date End Date Gabby Balderas DO [address] [place] [address] PCP - General Family Medicine 03/25/23 documented as of this encounter"
--- OUTSIDE RECORDS SUMMARY | 2023-07-05 14:45 | External Medical Summary ---
Author Name Unknown Address Unknown Organization K01:[facility] [place] [address] [place] [address] Laboratory Report Ordering Provider Test Date Status BISHOPBERTO 05/10/2023 11:20:31 Final Observation Date Value Abnormality Reference (Units ) Status Hepatitis B virus core Ab [Presence] in Serum 05/10/2023 11:20:31 Negative Negative Final Performing Location [facility] [place] [address] [place] [address]
--- OUTSIDE RECORDS SUMMARY | 2023-07-05 14:45 | External Medical Summary | Summary of Care ---
Author Name Unknown Organization [facility] Address [address] [place] [address] Phone [phone] Care Team Providers Care Bridal Consultant Name Role Phone Gabby Balderas DO Primary Care Provider [phone] Encounter Details Date Type Department Care Team Description 05/05/2023 Telephone Family Practice [facility] [address] [facility] [address] Gabby Balderas DO [address] [facility] [address] Allergies No known active allergiesdocumented as of this encounter (statuses as of 05/09/2023) Medications Medication Sig Dispensed Refills Start Date [...] as of this encounter (statuses as of 05/09/2023) Active Problems Problem Noted Date Primary cancer [...] as of this encounter (statuses as of 05/09/2023) Resolved Problems Problem Noted Date Resolved Date Encounter for examination fo r normal comparison and control in clinical research program 11/21/2017 06/01/2020 Overview: [facility] NOT [facility] [place] DETECT Study: Project # [id number], Commissioning Specialist: Khadar Dodd, PhD. SUMMARY: Goal: Establish [...] contact study staff at ; after hours Commissioning Specialist via the [facility] hospital tool grinder set up operator gear . Please contact study team before resolving/deleting from patients problem list. Study phone number: [phone]. Diagnosis changed due to Research Module. Go to Snapshot for study details. Encounter for examination fo r normal comparison and control in clinical research program 11/21/2017 06/30/2022 Overview: DO NOT DELETE - [employer] DETECT Study: Project # [id number], Commissioning Specialist: Mykel H. Gill, MS, MPH. SUMMARY: Goal: Establish test [...] contact study staff at ; after hours Commissioning Specialist via the [facility] hospital tool grinder set up operator gear . - Please contact study team before resolving/deleting from patients problem list. Study phone number: [phone]. Diagnosis changed due to Research Module. Go to Snapshot for study details. documented as of this encounter (statuses as of 05/09/2023) Immunizations Name Administration Dates Next Due Covid-19 [...] Encounters Date Type Specialty Care Team Description 05/10/2023 Laboratory Laboratory [facility] [address] [place] [address] 05/10/2023 Office Visit Hematology Oncology Hesham Bray MD [address] [place] [address] 05/17/2023 Pharmacy [place] [facility] [place] [facility] [address] [facility] [address] 07/21/2023 Office Visit Gastroenterology Vianey Corrigan CRNP [address] [place] [address] Health Maintenance Due Date Last Done Comments [...] Documents on File Type Date Recorded Patient Substation Inspector Expl anation Advance Directives and Living Will 06/24/2022 ADVANCE DIRECTIVE / LIVING WILL Power of Brake Mechanic 06/24/2022 POWER OF A TTORNEY Latest Code Status on File Code Status Date Activated Date Inactivated Comments No Code 03/20/2023 1:42 AM 03/21/2023 5:59 PM This order reflects the patients wishes and were consensually agreed upon. Question Answer Comments Discussion of Advance Directives occurred with: Patient Care Teams Bridal Consultant Relationship Specialty Start Date End Date Gabby Balderas DO [address] [place] [address] PCP - General Family Medicine 03/25/23 documented as of this encounter
--- OUTSIDE RECORDS SUMMARY | 2023-07-05 14:45 | External Medical Summary | Summary of Care ---
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) Kelly Eugene, [facility] [address] [place] [address] Referral ID Status Reason Start Date Expiration Date Visits Requested Visits Authorized [id number] Authorized Specialty Services Required 04/25/2023 99 99 Encounter Details Date Type Department Care Team Description 04/27/2023 Pharmacy Pharmacy Hematology Oncology [facility] [address] [place] [address] [facility] [place] Hem/Onc [address] [place] [address] 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 With or without food. 240 Tablet 2 04/25/2023 Active Ondansetron HCl 4 MG Oral TabletIndications:Gladys conchita cancer of left upper lobe of lung (HCC) Take 1 Tablet by mouth every 6 hours as needed for Nausea. 30 Tablet 3 04/25/2023 Active documented as of this encounter (statuses as of 04/27/2023) Active Problems Problem Noted Date Primary cancer [...] as of this encounter (statuses as of 04/27/2023) Resolved Problems Problem Noted Date Resolved Date Encounter for examination fo r normal comparison and control in clinical research program 11/21/2017 06/01/2020 Overview: DO NOT DELETE [facility] DETECT Study: Project # [id number], Fisheries Management Biologist: Khadar Dodd, PhD. SUMMARY: Goal: Establish test [...] contact study staff at ; after hours Fisheries Management Biologist via the [facility] hospital capsule filling machine operator . Please contact study team before resolving/deleting from patients problem list. Study phone number: [phone]. Diagnosis changed due to Research Module. Go to Snapshot for study details. Encounter for examination fo r normal comparison and control in clinical research program 11/21/2017 06/30/2022 Overview: DO NOT DELETE - [facility] DETECT Study: Project # [id number], Fisheries Management Biologist: Mykel Gill, MS, MPH. SUMMARY: Goal: Establish [...] contact study staff at ; after hours Fisheries Management Biologist via the [facility] hospital capsule filling machine operator . - Please contact study team before resolving/deleting from patients problem list. Study phone number: [phone]. Diagnosis changed due to Research Module. Go to Snapshot for study details. documented as of this encounter (statuses as of 04/27/2023) Immunizations Name Administration Dates Next Due Covid-19 [...] as of this encounter Progress Notes * Amalia Liu [facility] - 04/27/2023 11:41 AM EDT MEDICATION THERAPY MANAGEMENT SOTORASIB TREATMENT EDUCATION NOTE Reba P[place]tt [place] [id number] Patient Phone Numbers Cell Home [phone] DaughterErin Communication: Spoke to: Patient and DaughterErin Treatment: Medication: Sotorasib (Lumakras) Indication/Staging/Diagnosis Code: NSCLC w/ mets C34.12 Dose: 960 mg PO daily Administration: +/- food Start Date: 04/28/23 Primary Wire Straightener/Oncologist: Katarina (formerly Dr. Mitchell) Supportive Care Meds: Olanzapine Ondansetron (to be ordered via beacon plan) Preferred Lab: [facility] Specialty Pharmacy: [facility] Specialty ([facility] copy below into specialty comments) Treatment consent complete: yes Date: 04/14/23 Precertification complete: yes Date: 04/13/23, approved 04/21/23 Patient has given verbal consent that staff from the Oral Chemotherapy Clinic can speak to Daughterregarding their treatment Patient has given verbal consent that staff from the Oral Chemotherapy Clinic can leave a voicemailwith treatment-related information: Yes This information can be left on Other [phone] Medication education: Confirmed pt has received information regarding goals and duration of therapy: yes Reviewed dosing and administration: yes Reviewed importance of medication compliance (document recommendations if barriers identified): yes Reviewed appropriate storage conditions: yes Reviewed handling precautions: yes Reviewed handling body fluids and waste: yes Reviewed side effects, monitoring, and supportive care measures: yes Nausea/Vomiting This medication may cause nausea or vomiting Low/Minimal emetic risk: Zofran/Compazine PRN, but if consistently nauseated, can administer Zofran 30 minutes prior to chemotherapy Moderate/high emetic risk: Zofran 30 minutes prior to chemotherapy and q8h PRN. Compazine for breakthrough N/V Dietary modifications: avoid spicy, greasy, fatty foods If vomiting, increase water intake to avoid dehydration When to call clinic: N/V refractory to antiemetics or if unable to keep up with oral intake Diarrhea This medication can cause loose stools You can purchase OTC loperamide (Imodium A-D) to help manage this side effect (4 mg x 1, followed by 2 mg Q4H or after every loose stool, not to exceed 16 mg/day) Drink plenty of fluids to prevent dehydration, ideally 8-10 glasses per day (unless a healthcare provider has instructed you to limit your fluid intake due to other health conditions) Dietary modifications: eat bland, low fiber foods such as bananas, rice, applesauce, and toast (BRAT diet), avoid dairy, avoid spicy, greasy or fatty foods When to call clinic: If approaching maximum dose of loperamide and still having diarrhea or if you have any s/sx of dehydration; if there is a concern for infectious diarrhea (especially in setting of neutropenia) Edema This medication may cause swelling and fluid accumulation. This occurs most frequently in the legs, but can also occur in the lungs. Avoid standing for long periods of time Advised to elevate legs above chest level when laying down Use of compression stockings When to call clinic: If symptoms persist, > 5 lb weight gain in one week, SOB develops. A medication called a diuretic may be prescribed to manage this side effect. Rash This medication may cause a rash. Severity can vary from being mild to severe, necessitating interruption of your chemotherapy treatment Moisturize your skin Avoid scented lotions, perfumes, colognes Avoid extreme heat Minimize sun exposure and wear sunscreen and protective clothing When to call clinic: If rash develops Musculoskeletal pain This medication may cause or worsen muscle aches or joint pains [If platelets are low, or drug is known to cause thrombocytopenia] Avoid taking NSAIDS (ibuprofen and naproxen) as these medications can lower your platelet count and increase your risk of bleeding (unless your provider has told you otherwise) You can use localized pain relievers like Bengay or Icy hot Heating pads or ice packs may also help with discomfort OTC tylenol can be used to manage aches and pains. Follow the instructions on the package When to call clinic: If pain is not relieved by the above supportive measures, or if the pain is affecting your quality of life or ability to complete ADLs Confirmed pt has received written information about drug therapy: yes Changes to medication list since last visit: no Drug interaction assessment: Treatment plan and current medication list evaluated for drug-drug interactions. No clinically significant drug interaction identified Does patient rely on caregiver for medication management? no Assessment and plan: Pt verbalized understanding to information provided. All questions answered to the patient's satisfaction. Pt was educated about role of Oral Chemotherapy Clinic and pharmacist in medication management,and plan for follow up. Spoke with patient and daughter, Erin. Both verbalized understanding with DDI of famotidine and omeprazole which she will be taking at bedtime. They may try to use TUMS if reflux is controlledwith same dosing directions of administer Lumakras 4 hours before or 10 hours after antacids. Pt to have labs drawn prior to OV on 05/10/23. Pt will begin therapy on Saturday 04/28 when medication received because they have been waiting for almost 2 weeks to begin therapy. Advised to call [facility] 7 days prior to needing refill to allow time for delivery. Provided patient & daughter with MTM telephone number for any questions or concerns. MTM to follow up in one week for toxicity check Follow up: 1 week Amalia Liu PharmD, BCOP Clinical Pharmacist [facility] 04/27/2023, 12:23 PM Monitoring Parameters: Estimated CrCl Serum creatinine: 0.9 mg/dL 04/18/23 1140 Estimated creatinine clearance: 38.3 mL/min Hepatitis panel Ordered to be completed with next labs Suggested lab monitoring CBCd as indicated, CMP every 3 weeks for first 3 months, then monthly Treatment Parameters See PI Time Spent on Encounter: 26 - 30 minutes Encounter Group: Oncology Encounter Interventions Item Category: Oral Chemotherapy Other: Sotorasib Problem/Rationale: Safety: Needs additional monitoring - Medication Requires monitoring Pharmacist Intervention(s): Care coordination, Drug Interaction Screen and Education provided Magnitude of Intervention: Monitoring with direction (Level 1) documented in this encounter Plan of Treatment Upcoming Encounters Date Type Specialty Care Team Description 05/10/2023 Office Visit Hematology Oncology Katarina, Hesham Seals MD [address] [facility] [address] 07/21/2023 Office Visit Gastroenterology Vianey Corrigan CRNP [address] [place] [address] Scheduled Referrals Name Type Priority Associated Diagnoses [...] Documents on File Type Date Recorded Patient Financial Wellness Coach Expl anation Advance Directives and Living Will 06/24/2022 ADVANCE DIRECTIVE / LIVING WILL Power of Financial Planning Assistant 06/24/2022 POWER OF A TTORNEY Latest Code Status on File Code Status Date Activated Date Inactivated Comments No Code 03/20/2023 1:42 AM 03/21/2023 5:59 PM This order reflects the patients wishes and were consensually agreed upon. Question Answer Comments Discussion of Advance Directives occurred with: Patient Care Teams Claims Investigator Relationship Specialty Start Date End Date Gabby Balderas DO [address] [place] [address] PCP - General Family Medicine 03/25/23 documented as of this encounter
--- OUTSIDE RECORDS SUMMARY | 2023-07-05 14:45 | External Medical Summary | Summary of Care ---
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) Kelly Eugene, [facility] [address] [place] [address] Referral ID Status Reason Start Date Expiration Date Visits Requested Visits Authorized [id number] Authorized Specialty Services Required 04/25/2023 99 99 Encounter Details Date Type Department Care Team Description 04/27/2023 Pharmacy Pharmacy Hematology Oncology [facility] [address] [place] [address] [facility], [facility] Hem/Onc [address] [place] [address] Primary cancer of left upper lobe of [...] 06/01/2020 Overview: DO NOT DELETE [facility] DETECT Study: Project # [id number], Workforce Advisor: Khadar Dodd, PhD. SUMMARY: Goal: Establish test [...] contact study staff at ; after hours Workforce Advisor via the [facility] paper making machine operator . Please contact study team before resolving/deleting from patients problem list. Study phone number: [phone]. Diagnosis changed due to Research Module. Go to Snapshot for study details. Encounter for examination fo r normal comparison and control in clinical research program 11/21/2017 06/30/2022 Overview: DO NOT DELETE - [facility] DETECT Study: Project # [id number], Workforce Advisor: Mykel Gill, MS, MPH. SUMMARY: Goal: Establish [...] contact study staff at ; after hours Workforce Advisor via the [facility] paper making machine operator . - Please contact study team before resolving/deleting from patients problem list. Study phone number: [phone]. Diagnosis changed due to Research Module. 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 Mitchell) Supportive Care Meds: Olanzapine Ondansetron (to be ordered via beacon plan) Preferred Lab: [facility] Specialty Pharmacy: [facility] Specialty ([facility] copy below into specialty comments) Treatment consent complete: yes Date: 04/14/23 Precertification complete: yes Date: 04/13/23, approved 04/21/23 Patient has given verbal consent that staff from the [facility] can speak to Daughterregarding their treatment Patient has given verbal consent that staff from the [facility] can leave a voicemailwith treatment-related information: Yes This information can be left on Other [phone] Medication education: Confirmed pt has received information [...] weeks to begin therapy. Advised to call [facility] 7 days prior to needing refill to allow time for delivery. Provided patient & daughter with MTM telephone number for any questions or concerns. MTM to follow up in one week for toxicity check ADDENDUM: Called back and discussed with daughter, Erin to avoid grapefruit and grapefruit juice while on Lumakaras. Erin verbalized understanding and said that will not be a problem because she does not eat grapefruit but good to know. Follow up: 1 week Amalia Liu PharmD, MADYSON Clinical Pharmacist [facility] 04/27/2023, 12:23 PM Amalia Liu PharmD, MADYSON Clinical Pharmacist [facility] 04/27/2023, 2:28 PM Monitoring Parameters: Estimated CrCl Serum creatinine: [...] Encounters Date Type Specialty Care Team Description 05/04/2023 Pharmacy Pharmacy [facility], [facility] Hem/Onc [address] [facility] [place] [address] 05/10/2023 Laboratory Laboratory Moriah Cabrera [address] [place] [address] 05/10/2023 Office Visit Hematology Oncology Hesham Bray MD [address] [place] [address] 07/21/2023 Office Visit Gastroenterology Vianey Corrigan CRNP [address] [place] [address] Scheduled Referrals Name Type Priority Associated Diagnoses [...] Documents on File Type Date Recorded Patient Sexual Assault Response Coordinator Expl anation Advance Directives and Living Will 06/24/2022 ADVANCE DIRECTIVE / LIVING WILL Power of Manager Business Information 06/24/2022 POWER OF A TTORNEY Latest Code Status on File Code Status Date Activated Date Inactivated Comments No Code 03/20/2023 1:42 AM 03/21/2023 5:59 PM This order reflects the patients wishes and were consensually agreed upon. Question Answer Comments Discussion of Advance Directives occurred with: Patient Care Teams Engineering Officer Relationship Specialty Start Date End Date Gabby Balderas DO [address] [place] [address] PCP - General Family Medicine 03/25/23 documented as of this encounter
--- OUTSIDE RECORDS SUMMARY | 2023-07-05 14:45 | External Medical Summary | Summary of Care ---
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 SUMMARY: Goal: Establish [...] contact study staff at ; after hours Instructional Services Specialist via the [facility] wire saw operator . Please contact study team before resolving/deleting from patients problem list. Study phone number: [phone]. Diagnosis changed due to Research Module. Go to Snapshot for study details. Encounter for examination fo r normal comparison and control in clinical research program 11/21/2017 06/30/2022 Overview: DO NOT DELETE - [employer] DETECT Study: Project # [id number], Instructional Services Specialist: Mykel Gill, MS, MPH. SUMMARY: Goal: [...] contact study staff at ; after hours Instructional Services Specialist via the [facility] wire saw operator . - Please contact study team before resolving/deleting from patients problem list. Study phone number: [phone]. Diagnosis changed due to Research Module. Go to Snapshot for study details. 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 Mitchell) Supportive Care Meds: Olanzapine Ondansetron (to be ordered via beacon plan) Preferred Lab: [facility] Specialty Pharmacy: [facility] Specialty Interval History: n/a Changes to medication list since last visit? No Assessment and Plan: Left message to confirm start of therapy and assess tolerability of Lumakras Assessment of compliance: compliant Assessment of adverse effects attributed to drug therapy: N/A Dose adjustment needed based on lab or adverse drug reaction? N/A Follow up: 1 week Labs/OV; 2 weeks MTM Amalia Liu, PharmD, BCOP Clinical Pharmacist [facility] 05/03/2023, 3:59 PM Monitoring Parameters: Estimated CrCl Serum creatinine: [...] Specialty Care Team Description 05/10/2023 Laboratory [facility] [place] [address] [place] [address] 05/10/2023 Office Visit Hematology Oncology Hesham Bray MD [address] [place] [address] 07/21/2023 Office Visit Gastroenterology Vinaey Corrigan CRNP [address] [place] [address] Health Maintenance Due Date Last Done Comments [...] Documents on File Type Date Recorded Patient Doctor Of Naturopathic Medicine Expl anation Advance Directives and Living Will 06/24/2022 ADVANCE DIRECTIVE / LIVING WILL Power of Children'S Program Coordinator 06/24/2022 POWER OF A TTORNEY Latest Code Status on File Code Status Date Activated Date Inactivated Comments No Code 03/20/2023 1:42 AM 03/21/2023 5:59 PM This order reflects the patients wishes and were consensually agreed upon. Question Answer Comments Discussion of Advance Directives occurred with: Patient Care Teams Kiln Packer Relationship Specialty Start Date End Date Gabby Balderas DO [address] [place] [address] PCP - General Family Medicine 03/25/23 documented as of this encounter
--- OUTSIDE RECORDS SUMMARY | 2023-07-05 14:45 | External Medical Summary | Continuity of Care Document ---
Author Name Unknown Organization [facility] Address [address] [place] [id number] Encounter [facility] FINN[facility] [id number] Date(s): 04/25/23 - 04/25/23 [facility] [id number], [place] [address] [phone] Encounter Diagnosis Adenocarcinoma of lung, stage 4(Discharge Diagnosis) - 04/25/23 Metastasis to bone(Discharge Diagnosis) - 04/25/23 Anticoagulated(Discharge Diagnosis) - 04/25/23 Discharge Disposition: Home or Self Care Attending Physician: MD Ray, [place] Allergies, Adverse Reactions, Alerts No Known Allergies Medications Bicarsim 80 mg oral tablet, chewable Start: 04/25/23 15:17:00 EDT, PO, 1 Unknown, 1 Refill(s), Take 1 Tablet by mouth every 6 hours as needed for Gas. Start Date: 04/25/23 Status: Ordered Eliquis 5 mg oral tablet Start: 04/25/23 15:16:00 EDT, 5 mg =, PO, bid, 3 Refill(s), Take 1 Tablet by mouth in the morning and 1 Tablet before bedtime. Start Date: 04/25/23 Status: Ordered famotidine 20 mg oral tablet Start: 04/25/23 15:16:00 EDT, 20 mg =, PO, bid, 2 Refill(s), Take 1 Tablet by mouth in the morning and 1 Tablet before bedtime. Start Date: 04/25/23 Status: Ordered Vitamin D3 1000 intl units (25 mcg) oral tablet Start: 04/25/23 15:18:00 EDT, PO, 1000 Unknown, 1 Refill(s), Take 1 Tablet by mouth in the morning. Start Date: 04/25/23 Status: Ordered Mental Status 04/25/23 Barriers to Learning one year None evide nt Mandatory Health Literacy Documentation Yes Communication Barrier Present No Health Literacy Communication Barriers N ever Primary Language Wallisian Problem List Diagnosis Diagnosis Type Effective Dates Health Status Clinical Service Informant Metastasis to bone Discharge Diagnosis 04/25/23 Anticoagulated Discharge Diagnosis 04/25/23 Adenocarcinoma of lung, stage 4 Discharge Diagnosis 04/25/23 Vital Signs Most recent to oldest [Reference Range]: 1 Height 163 cm 1 (04/25/23 3:19 PM) Patient Weight 47 kg 2 (04/25/23 3:19 PM) Body Mass Index 17.69 kg/m2 (04/25/23 3:19 PM) Temperature [36.5-37.9 DegC] 36.4 DegC *LOW* (04/25/23 3:19 PM) Heart Rate 78 bpm (04/25/23 3:19 PM) Respiratory Rate 16 br/min (04/25/23 3:19 PM) Blood Pressure 124/66mmHg (04/25/23 3:19 PM) Mean Blood Pressure 78 mmHg (04/25/23 3:19 PM) Cuff Pulse Pressure 58 mmHg (04/25/23 3:19 PM) BP Location # 1 Right Arm (04/25/23 3:19 PM) 1Result Comment: w/ shoes on 2Result Comment: w/ shoes on Social History Social History Type Response Smoking Status Former Smoker, quit > 1 yr Sex Female Patient Care team information Care Team Personnel Name: MD Kendrick Tiane Position: Resident - Pathologist Member Role: Lifetime Relationship Address: Address: [address] [place] [address] Care Team Related Persons Name: HERLINDA CADY Address: home [address] [place] [id number]
--- OUTSIDE RECORDS SUMMARY | 2023-07-05 14:45 | External Medical Summary | Summary of Care ---
Author Name Unknown Organization [facility] Address [address] [place] [address] Phone [phone] Care Team Providers Care Railway Station Manager Name Role Phone SherrieGabby gonzalez Zofia NAIK Primary Care Provider [phone] Reason for Visit * Reason Comments Medication Management Encounter Details Date Type Department Care Team Description 04/26/2023 Pharmacy Pharmacy Hematology Oncology [facility] [address] [place] [address] [facility], [facility] Hem/Onc [address] [place] [address] Primary cancer of left upper lobe of [...] research program 11/21/2017 06/01/2020 Overview: DO NOT [employer]TE [employer] AREN Study: Project # [id number], Labeling Specialist: Khadar Dodd, PhD. SUMMARY: Goal: Establish [...] contact study staff at ; after hours Labeling Specialist via the [facility] chlorine operator . Please contact study team before resolving/deleting from patients problem list. Study phone number: [phone]. Diagnosis changed due to Research Module. Go to Snapshot for study details. Encounter for examination fo r normal comparison and control in clinical research program 11/21/2017 06/30/2022 Overview: DO NOT DELETE - [employer] DETECT Study: Project # [id number], Labeling Specialist: Mykel Gill, MS, MPH. SUMMARY: Goal: [...] contact study staff at ; after hours Labeling Specialist via the [facility] chlorine operator . - Please contact study team before resolving/deleting from patients problem list. Study phone number: [phone]. Diagnosis changed due to Research Module. Go [...] as of this encounter Progress Notes * Kelly Eugene [facility] - 04/26/2023 1:26 PM EDT Addendum 04/26/23: Returned call to [facility] speciality pharmacy (ph. [phone]) to provide prescription clarification Pharmacist reviewed drug interaction of famotidine and sotorasib Per ordering prescriber, Farhana Doll Pa-C, famotidine to be administered in regards to timing - sotorasib to be administered either 4 hours before or 10 hours after antacids Advised with thoroughly review with patient with new education as scheduled for 04/27 Kelly Eugene, PharmD Ambulatory Clinical Pharmacist | Oral Chemotherapy Clinic [facility] 04/26/2023 1:37 PM Time Spent on Encounter: 6 - 10 minutes Encounter Group: Oncology Encounter Interventions Item Category: Oral Chemotherapy Other: sotorasib Problem/Rationale: Adherence - Refill needed Pharmacist Intervention(s): Contacted specialty pharmacy Magnitude of Intervention: Monitoring with direction (Level 1) * KRISTA Preston - 04/26/2023 1:15 PM EDT Per [facility] Rx clarification is required before Rx can be processed. Please call the pharmacy team at [phone] Ammy Paredes [employer] Logger III [facility] 04/26/2023, 1:25 PM Time Spent on Encounter: 6 - 10 minutes documented in this encounter Plan of Treatment Upcoming Encounters Date Type Specialty Care Team Description 04/27/2023 Pharmacy Pharmacy [facility] Hem/Onc [address] [place] [address] 05/10/2023 Office Visit Hematology Oncology Hesham Bray MD [address] [place] [address] 07/21/2023 Office Visit Gastroenterology Vianey Corrigan CRNP [address] [place] [address] Health Maintenance Due Date Last Done Comments [...] Documents on File Type Date Recorded Patient Lens Grinder And Polisher Expl anation Advance Directives and Living Will 06/24/2022 ADVANCE DIRECTIVE / LIVING WILL Power of Jowl Trimmer 06/24/2022 POWER OF A TTORNEY Latest Code Status on File Code Status Date Activated Date Inactivated Comments No Code 03/20/2023 1:42 AM 03/21/2023 5:59 PM This order reflects the patients wishes and were consensually agreed upon. Question Answer Comments Discussion of Advance Directives occurred with: Patient Care Teams Railway Station Manager Relationship Specialty Start Date End Date Gabby Balderas DO [address] [place] [address] PCP - General Family Medicine 03/25/23 documented as of this encounter"
--- OUTSIDE RECORDS SUMMARY | 2023-07-05 14:46 | External Medical Summary | Summary of Care ---
Author Name Unknown Organization [facility] Address [address] [place] [address] Phone [phone] Care Team Providers Care Voice Writing Reporter Name Role Phone Gabby Balderas Primary Care Provider [phone] Encounter Details Date Type Department Care Team Description 04/24/2023 Orders Only Outcomes Research Department [address] [place], [place] [id number] Ca Payne CHRA [place] Research Other*[id number] Allergies No known active allergiesdocumented as of this encounter (statuses as of 04/24/2023) Medications Medication Sig Dispensed Refills Start Date [...] as of this encounter (statuses as of 04/24/2023) Active Problems Problem Noted Date Primary cancer [...] as of this encounter (statuses as of 04/24/2023) Resolved Problems Problem Noted Date Resolved Date Encounter for examination fo r normal comparison and control in clinical research program 11/21/2017 06/01/2020 Overview: DO NOT DELETE [facility] AREN Study: Project # [id number], Camp Counselor: Khadar Dodd, PhD. SUMMARY: Goal: Establish test [...] contact study staff at ; after hours Camp Counselor via the [facility] borematic operator . Please contact study team before resolving/deleting from patients problem list. Study phone number: [phone]. Diagnosis changed due to Research Module. Go to Snapshot for study details. Encounter for examination fo r normal comparison and control in clinical research program 11/21/2017 06/30/2022 Overview: DO NOT DELETE - [employer] DETECT Study: Project # [id number], Camp Counselor: Mykel Gill, MS, MPH. SUMMARY: Goal: Establish [...] contact study staff at ; after hours Camp Counselor via the [facility] hospital borematic operator . - Please contact study team before resolving/deleting from patients problem list. Study phone number: [phone]. Diagnosis changed due to Research Module. Go to Snapshot for study details. documented as of this encounter (statuses as of 04/24/2023) Immunizations Name Administration Dates Next Due Covid-19 [...] Encounters Date Type Specialty Care Team Description 04/24/2023 Pharmacy Pharmacy [facility] [address] [facility] [address] 05/10/2023 Office Visit Hematology Oncology Hesham Bray MD [address] [address] 07/21/2023 Office Visit Gastroenterology Vianey Corrigan CRNP [address] [place] [address] Scheduled Orders Name Type Priority Associated Diagnoses Orde r Schedule MYCODE SUBSEQUENT ADULT Lab Routine MyCode Research Other*[id number] Every 6 Months for 2 Occurrences starting 04/24/2023 until 05/13/2024 Health Maintenance Due Date Last Done Comments [...] as of this encounter Visit Diagnoses Diagnosis MyCode Research Other*[id number] documented in this encounter Advance Directives Documents on File Type Date Recorded Patient Surveyor Chain Helper Expl anation Advance Directives and Living Will 06/24/2022 ADVANCE DIRECTIVE / LIVING WILL Power of Plumbing Designer 06/24/2022 POWER OF A TTORNEY Latest Code Status on File Code Status Date Activated Date Inactivated Comments No Code 03/20/2023 1:42 AM 03/21/2023 5:59 PM This order reflects the patients wishes and were consensually agreed upon. Question Answer Comments Discussion of Advance Directives occurred with: Patient Care Teams Voice Writing Reporter Relationship Specialty Start Date End Date Gabby Balderas DO [address] [place] [address] PCP - General Family Medicine 03/25/23 documented as of this encounter
--- OUTSIDE RECORDS SUMMARY | 2023-07-05 14:46 | External Medical Summary | Summary of Care ---
Author Name Unknown Organization [facility] Address [address] [place] [address] Phone [phone] Care Team Providers Care Business Job Titles Name Role Phone Gabby Balderas Primary Care Provider [phone] Reason for Visit * Reason Onset Date Comments Follow Up 04/17/2023 Sotorasib denial Encounter Details Date Type Department Care Team Description 04/17/2023 Telephone Hematology Oncology [facility] [address] [place] [address] Traci Mitchell MD [address] [place] [address] Follow Up (Sotorasib denial ) Allergies No known active allergiesdocumented as of this encounter (statuses as of 04/19/2023) Medications Medication Sig Dispensed Refills Start Date [...] as of this encounter (statuses as of 04/19/2023) Active Problems Problem Noted Date Primary cancer [...] as of this encounter (statuses as of 04/19/2023) Resolved Problems Problem Noted Date Resolved Date Encounter for examination fo r normal comparison and control in clinical research program 11/21/2017 06/01/2020 Overview: DO NOT DELETE [facility] DETECT Study: Project # [id number], Production Painter: Khadar Dodd, PhD. SUMMARY: Goal: Establish test [...] study staff at ; after hours Production Painter via the [facility] staple shear operator . Please contact study team before resolving/deleting from patients problem list. Study phone number: [phone]. Diagnosis changed due to Research Module. Go to Snapshot for study details. Encounter for examination fo r normal comparison and control in clinical research program 11/21/2017 06/30/2022 Overview: DO NOT DELETE - [employer] DETECT Study: Project # [id number], Production Painter: Mykel Gill, MS, MPH. SUMMARY: Goal: Establish [...] study staff at ; after hours Production Painter via the [facility] staple shear operator . - Please contact study team before resolving/deleting from patients problem list. Study phone number: [phone]. Diagnosis changed due to Research Module. Go to Snapshot for study details. documented as of this encounter (statuses as of 04/19/2023) Immunizations Name Administration Dates Next Due Covid-19 [...] encounter Miscellaneous Notes * Telephone Encounter - Tri Gomez RN - 04/19/2023 2:23 PM EDT Returned call to [facility], spoke with Rocio who transferred to Merly who transferred to appeals dept. Spoke with Roberta in appeals dept who set up peer to peer with Dr Mitchell at 3:15 today on her cell.Number given. Dr Mitchell ok'd and aware of same. * Telephone Encounter - KRISTA Jeff - 04/19/2023 1:32 PM EDT Received msg from [facility] regarding appeal, requires peer- to -peer. Asking for call back at and states to ask to speak to a member of the appeals team. Thank you! * Telephone Encounter - Tri Gomez RN - 04/19/2023 9:02 AM EDT Spoke with daughter to review denial of Sotorasib and Dr. Mitchell's recommendation to start the IV chemo which discussed previously. Daughter said she would prefer mom to have the pill and does not feel IV chemo good idea for her. .States she called with Hector Arrieta, specialty drug pharmacist and was told the best way would be tocall into [facility] specialty pharamcy program which is federal something. [phone] and Did not submit enough info for it to be approved. 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 Also not capable to tolerate other systemic txt with concern for toxicity. Spoke with Reyna at specialty drug pharm [facility] who said pt needs to send reconsideration request and physician needs to also sent request with documentation to [phone]. Spoke with Erin with her mom in background who gave permission to obtain reconsideration and send letter on her behalf to /BS Letter marked Urgent reconsideration for Slade, copy of denial, progress note, Mygenvar result and pt reconsideration letter faxed to [phone] * Telephone Encounter - KRISTA Evangelista - 04/19/2023 8:24 AM EDT We received a call back from Reba's daughter Erin returning your call from yesterday. Please call her back at your earliest convenience. Thank you! * Telephone Encounter - KRISTA Evangelista - 04/18/2023 5:08 PM EDT We recieved a call back from Erin returning your call. She did ask for a call first thing in themorning if you can regarding Reba. Thank you! * Telephone Encounter - Tri Gomez RN - 04/18/2023 1:11 PM EDT Returned call to home and cell, left messages sorry missed her, need to talk about oral chemo not being covered by insurance, Dr. Mitchell recommnending starting IV chemo therefore would need B12 set up if decides would like to go that route. Asked to please call us back, I'd be leaving for lunch in a few minutes and be gone half hr. Number given * Telephone Encounter - KRISTA White - 04/18/2023 11:33 AM EDT PT's daughter is calling back in regards to the previous messages - asking to speak with Tri. She states at 1pm she will leaving. Please advise: [phone] * Telephone Encounter - KRISTA Evangelista - 04/18/2023 9:20 AM EDT Erin called back in returning your call about her mother Reba. She stated you can give her a call back at any time at [phone]. Thank you! * Telephone Encounter - Tri Gomez RN - 04/18/2023 9:06 AM EDT Called spoke with daughter Erin who said she can't talk right now and will call back in few minutes, number given. * Telephone Encounter - Tri Gomez RN - 04/17/2023 3:37 PM EDT Received Denial for Sotorasib "information submitted id not meet the plan's criteria for med necessity due to the following reason: The use of this med without at least one prior asystemic txt does not establish medical necessity for the drug....Per automated message -The person you have called is unavailable right now. Please try again later. Member's reconsideration letter is needed to move forward with the appeal process. Per Dr. Mitchlel regarding appeal letter....concern for toxicity with chemo immunotherapy. Pt has reservations about tolerance. Would prefer oral treatment Message left on daughter Erin's cell phone requesting call back kimberli regarding denial of oral chemo pill . Dr. Mitchell recommending pt gets B12 shot and starts folate in order to move forward with IV chemo which consented for carbo/pemetrexexd and pembrolizumab. Number given. documented in this encounter Plan of Treatment Upcoming Encounters Date Type Specialty Care Team Description 04/20/2023 [facility] [address] [id number] 05/01/2023 Office Visit Family Medicine Gabby Balderas DO [address] [place] [address] 05/10/2023 Office Visit Hematology Oncology Hesham Bray MD [address] [facility], [place] [phone] 07/21/2023 Office Visit Gastroenterology Vianey Corrigan CRNP [address] [place] [address] Health Maintenance Due Date Last Done Comments [...] Documents on File Type Date Recorded Patient Flight Agent Expl anation Advance Directives and Living Will 06/24/2022 ADVANCE DIRECTIVE / LIVING WILL Power of Assistant Editor 06/24/2022 POWER OF A TTORNEY Latest Code Status on File Code Status Date Activated Date Inactivated Comments No Code 03/20/2023 1:42 AM 03/21/2023 5:59 PM This order reflects the patients wishes and were consensually agreed upon. Question Answer Comments Discussion of Advance Directives occurred with: Patient Care Teams Business Job Titles Relationship Specialty Start Date End Date Gabby Balderas DO [address] [place] [address] PCP - General Family Medicine 03/25/23 documented as of this encounter
--- OUTSIDE RECORDS SUMMARY | 2023-07-05 14:46 | External Medical Summary | Summary of Care ---
Author Name Unknown Organization [facility] Address [address] [place] [address] Phone [phone] Care Team Providers Care Edi Programmer Analyst Name Role Phone Gabby Balderas Primary Care Provider [phone] Reason for Visit * Reason Onset Date Comments Follow Up 04/17/2023 Sotorasib denial Encounter Details Date Type Department Care Team Description 04/17/2023 Telephone Hematology Oncology [facility] [address] [place] [address] Traci Mitchell MD [address] [place] [address] Follow Up (Sotorasib denial ) [...] 06/01/2020 Overview: DO NOT DELETE [facility] DETECT Study: Project # [id number], Washroom Cleaner: Khadar Dodd, PhD. SUMMARY: Goal: Establish test [...] contact study staff at ; after hours Washroom Cleaner via the [facility] alcohol still operator . Please contact study team before resolving/deleting from patients problem list. Study phone number: [phone]. Diagnosis changed due to Research Module. Go to Snapshot for study details. Encounter for examination fo r normal comparison and control in clinical research program 11/21/2017 06/30/2022 Overview: DO NOT DELETE - [employer] DETECT Study: Project # [id number], Washroom Cleaner: Mykel Gill, MS, MPH. SUMMARY: Goal: Establish [...] contact study staff at ; after hours Washroom Cleaner via the [facility] alcohol still operator . - Please contact study team before resolving/deleting from patients problem list. Study phone number: [phone]. Diagnosis changed due to Research Module. Go [...] Miscellaneous Notes * Telephone Encounter - KRISTA Jeff - 04/19/2023 1:32 PM EDT Received msg from [facility] regarding appeal, requires peer- to -peer. Asking [...] the best way would be tocall into [facility] specialty pharamcy program which is federal something. [phone] and Did not submit enough info for it to be approved. 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 Also not capable to tolerate other systemic txt with concern for toxicity. Spoke with Reyna at specialty drug pharm [facility] who said pt needs to send reconsideration request and physician needs to also sent request with documentation to [phone]. Spoke with Erin with her mom in background who gave permission to obtain reconsideration and send letter on her behalf to BC/BS Letter marked Urgent reconsideration for Slade, copy of denial, progress note, Mygenvar result and pt reconsideration letter faxed to [phone] * Telephone Encounter - KRISTA Evnagelista - 04/19/2023 8:24 AM EDT We received [...] at 1pm she will leaving. Please advise: [phone] * Telephone Encounter - KRISTA Evangelista - 04/18/2023 9:20 AM EDT Erin called back in returning your call about her mother Reba. She stated you can give her a call back at any time at [phone]. Thank you! * Telephone Encounter - Tri [...] forward with the appeal process. Per Dr. Mitchell regarding appeal letter....concern for toxicity with chemo immunotherapy. Pt has reservations about tolerance. Would prefer oral treatment Message left on manoj Khan's cell phone requesting call back kimberli regarding denial of oral chemo pill . Dr. Mitchell recommending pt gets B12 shot and starts folate in order to move forward with IV chemo which consented for carbo/pemetrexexd and pembrolizumab. Number given. documented in this encounter Plan of Treatment Upcoming Encounters Date Type Specialty Care Team Description 04/20/2023 Pharmacy Pharmacy [facility] Hem[facility]Onc [address] [place] [address] 05/01/2023 Office Visit Family Medicine Gabby Balderas DO [address] [place] [address] 05/10/2023 Office Visit Hematology Oncology Hesham Bray MD [address] [place] [address] 07/21/2023 Office Visit Gastroenterology Vianey Corrigan CRNP [address] [place] [address] Health Maintenance Due Date Last Done Comments [...] Documents on File Type Date Recorded Patient Rehab Assistant Expl anation Advance Directives and Living Will 06/24/2022 ADVANCE DIRECTIVE / LIVING WILL Power of Dust Operator 06/24/2022 POWER OF A TTORNEY Latest Code Status on File Code Status Date Activated Date Inactivated Comments No Code 03/20/2023 1:42 AM 03/21/2023 5:59 PM This order reflects the patients wishes and were consensually agreed upon. Question Answer Comments Discussion of Advance Directives occurred with: Patient Care Teams Edi Programmer Analyst Relationship Specialty Start Date End Date Gabby Balderas DO [address] [place] [address] PCP - General Family Medicine 03/25/23 documented as of this encounter
--- OUTSIDE RECORDS SUMMARY | 2023-07-05 14:46 | External Medical Summary | Summary of Care ---
Author Name Unknown Organization [facility] Address [address] [place] [address] Phone [phone] Care Team Providers Care Geriatric Assistant Name Role Phone Gabby Balderas Primary Care Provider [phone] Reason for Visit * Reason Onset Date Comments Medication Question 04/25/2023 Encounter Details Date Type Department Care Team Description 04/25/2023 Telephone Pharmacy Hematology Oncology [facility] [address] [place], [place] [phone] Traci Mitchell MD [address] [place] [address] Medication Question Allergies No known [...] [facility] DETECT Study: Project # [id number], Boring Inspector: Khadar Dodd, PhD. SUMMARY: Goal: Establish test [...] contact study staff at ; after hours Boring Inspector via the [facility] coal feeder operator . Please contact study team before resolving/deleting from patients problem list. Study phone number: [phone]. Diagnosis changed due to Research Module. Go to Snapshot for study details. Encounter for examination fo r normal comparison and control in clinical research program 11/21/2017 06/30/2022 Overview: DO NOT DELETE - [employer] DETECT Study: Project # [id number], Boring Inspector: Mykel Gill, MS, MPH. SUMMARY: Goal: Establish [...] contact study staff at ; after hours Boring Inspector via the [facility] coal feeder operator . - Please contact study team before resolving/deleting from patients problem list. Study phone number: [phone]. Diagnosis changed due to Research Module. Go [...] Notes * Telephone Encounter - Kelly Eugene RP - 04/25/2023 10:05 AM EDT Addendum 04/25/23: In reviewing chart, scanned documented from 04/21 advises Lumakras approved Sent SM to P requesting test claim on prescription - will await response and release drug onceconfirmed which pharmacy can fill Will return call to patients daughter once confirmed Kelly Eugene, PharmD Ambulatory Clinical Pharmacist | Oral Chemotherapy Clinic [facility] 04/25/2023 10:06 AM Time Spent on Encounter: 11 - 15 minutes Encounter Group: Oncology Encounter Interventions Item Category: Oral Chemotherapy Other: Sotorasib Problem/Rationale: [place] Plan Review: Clinical Review Pharmacist Intervention(s): Care coordination, Clarification with Provider and Contacted specialty pharmacy [place] of Intervention: Monitoring with direction (Level 1) * Telephone Encounter - Rosa Moreno CPhT - 04/25/2023 9:08 AM EDT MEDICATION THERAPY MANAGEMENTSOTORASIB TREATMENT STATUS NOTE [place] Yarely Delaney [id number] Patient Phone Numbers Communication: Voicemail received Treatment: Medication:Sotorasib (Lumakras) Indication/Staging/Diagnosis Code: 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 Mitchell Caller: Daughter - Erin Incoming Request: Patient has questions regarding oral chemotherapy Action: Sent telephone encounter to pharmacist for follow-up Additional Notes: Requesting a return call @ [phone]. Has questions about Lumakras. Rosa Moreno Alterations Expert II [facility] Oral Chemotherapy Clinic 04/25/2023 9:10 AM Time Spent on Encounter: < 5 minutes documented in this encounter Plan of Treatment Upcoming Encounters Date Type Specialty Care Team Description 04/26/2023 Pharmacy Pharmacy [facility] Hem/Onc [address] [place] [address] 05/10/2023 Office Visit Hematology Oncology KatarinaHesham MD [address] [place] [address] 07/21/2023 Office Visit Gastroenterology [facility]igan [facility] [address] [facility] [address] Health Maintenance Due Date Last Done Comments [...] Documents on File Type Date Recorded Patient Parimutuel Ticket Seller Expl anation Advance Directives and Living Will 06/24/2022 ADVANCE DIRECTIVE / LIVING WILL Power of Natural Gas Trader 06/24/2022 POWER OF A TTORNEY Latest Code Status on File Code Status Date Activated Date Inactivated Comments No Code 03/20/2023 1:42 AM 03/21/2023 5:59 PM This order reflects the patients wishes and were consensually agreed upon. Question Answer Comments Discussion of Advance Directives occurred with: Patient Care Teams Geriatric Assistant Relationship Specialty Start Date End Date Gabby Balderas DO [address] [place] [address] PCP - General Family Medicine 03/25/23 documented as of this encounter"
--- OUTSIDE RECORDS SUMMARY | 2023-07-05 14:46 | External Medical Summary | Summary of Care ---
Author Name Unknown Organization [facility] Address [address] [place] [address] Phone [phone] Care Team Providers Care Forensic Photographer Name Role Phone SherrieGabby gonazlez Zofia ANIK Primary Care Provider [phone] Encounter Details Date Type Department Care Team Description 04/21/2023 Telephone Hematology Oncology [facility] [address] [place] [address] Traci Mitchell MD [address] [place] [address] Allergies No known active allergiesdocumented as of this encounter (statuses as of 04/21/2023) Medications Medication Sig Dispensed Refills Start Date [...] as of this encounter (statuses as of 04/21/2023) Active Problems Problem Noted Date Primary cancer [...] as of this encounter (statuses as of 04/21/2023) Resolved Problems Problem Noted Date Resolved Date Encounter for examination fo r normal comparison and control in clinical research program 11/21/2017 06/01/2020 Overview: DO NOT DELETE [employer] DETECT Study: Project # [id number], Specimen Preparation Assistant: Khadar Dodd, PhD. SUMMARY: Goal: Establish test [...] contact study staff at ; after hours Specimen Preparation Assistant via the [facility] suction operator . Please contact study team before resolving/deleting from patients problem list. Study phone number: [phone]. Diagnosis changed due to Research Module. Go to Snapshot for study details. Encounter for examination fo r normal comparison and control in clinical research program 11/21/2017 06/30/2022 Overview: DO NOT DELETE - [employer] DETECT Study: Project # [id number], Specimen Preparation Assistant: Mykel Gill, MS, MPH. SUMMARY: Goal: Establish [...] contact study staff at ; after hours Specimen Preparation Assistant via the [facility] suction operator . - Please contact study team before resolving/deleting from patients problem list. Study phone number: [phone]. Diagnosis changed due to Research Module. Go to Snapshot for study details. documented as of this encounter (statuses as of 04/21/2023) Immunizations Name Administration Dates Next Due Covid-19 [...] encounter Miscellaneous Notes * Telephone Encounter - Traci Mitchell MD - 04/21/2023 2:36 PM EDT Got a call from Insurance [employer] Discussed case with calling physician who said they would support the case for Sotorasib and felt it was appropriate. However waiting on " final approval" prior to giving authorization number documented in this encounter Plan of Treatment Upcoming Encounters Date Type Specialty Care Team Description 04/24/2023 Pharmacy Pharmacy [facility] Hem/Onc [address] [facility] [place] [address] 05/10/2023 Office Visit Hematology Oncology [facility] [address] [facility] [address] 07/21/2023 Office Visit Gastroenterology Vianey Corrigan CRNP [address] [place] [address] Health Maintenance Due Date Last Done Comments [...] Documents on File Type Date Recorded Patient Associate Vice President Expl anation Advance Directives and Living Will 06/24/2022 ADVANCE DIRECTIVE / LIVING WILL Power of Electrician Yard 06/24/2022 POWER OF A TTORNEY Latest Code Status on File Code Status Date Activated Date Inactivated Comments No Code 03/20/2023 1:42 AM 03/21/2023 5:59 PM This order reflects the patients wishes and were consensually agreed upon. Question Answer Comments Discussion of Advance Directives occurred with: Patient Care Teams Forensic Photographer Relationship Specialty Start Date End Date Gabby Balderas DO [address] [place] [address] PCP - General Family Medicine 03/25/23 documented as of this encounter
--- OUTSIDE RECORDS SUMMARY | 2023-07-05 14:46 | External Medical Summary | Continuity of Care Document ---
Author Name Unknown Organization [facility] Address [address] [place] [id number] [id number] Date[facility]s): 04/19/23 - 04/19/[address] [id number] Discharge Disposition: Home or Self Care Attending Physician: MD Bell Patrick C Referring Physician: MD Bell Patrick C Social History Social History Type Response Sex Female Patient Care team information Care Team Personnel Name: MD Kendrick Tiane Position: Resident - Pathologist Member Role: Lifetime Relationship Address: Address: [address] [place] [address] Care Team Related Persons Name: RICHARDSONMATTHEW CADY Address: home [address], [place] [id number]
--- OUTSIDE RECORDS SUMMARY | 2023-07-05 14:46 | External Medical Summary | Summary of Care ---
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)* Allergies No known active allergiesdocumented as of this encounter (statuses as of 04/20/2023) Medications Medication Sig Dispensed Refills Start Date [...] as of this encounter (statuses as of 04/20/2023) Active Problems Problem Noted Date Primary cancer [...] as of this encounter (statuses as of 04/20/2023) Resolved Problems Problem Noted Date Resolved Date Encounter for examination fo r normal comparison and control in clinical research program 11/21/2017 06/01/2020 Overview: DO NOT DELETE [employer] DETECT Study: Project # [id number], Drophammer Operator: Khadar Dodd, PhD. SUMMARY: Goal: Establish test [...] contact study staff at ; after hours Drophammer Operator via the [facility] drill operator automatic . Please contact study team before resolving/deleting from patients problem list. Study phone number: [phone]. Diagnosis changed due to Research Module. Go to Snapshot for study details. Encounter for examination fo r normal comparison and control in clinical research program 11/21/2017 06/30/2022 Overview: DO NOT DELETE - [employer] [facility] [employer] [facility] DETECT Study: Project # [id number], Drophammer Operator: Mykel Gill, MS, MPH. SUMMARY: Goal: Establish [...] contact study staff at ; after hours Drophammer Operator via the [facility] drill operator automatic . - Please contact study team before resolving/deleting from patients problem list. Study phone number: [phone]. Diagnosis changed due to Research Module. Go to Snapshot for study details. 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 Mitchell Supportive Care Meds: Olanzapine Ondansetron (to be ordered via beacon plan) Yes/no Date Action Taken [place] plan entered? Yes 04/12/23 Consent completed? Yes 04/14/23 Intro/med rec completed? Precert completed? Yes 04/13/23 Denied - peer to peer scheduled for 04/19 @ 3:[address] Mitchell. No updates provided Test claim completed? Financial assistance needed? Physician signature? Yes 04/12/23 Rx released? Education completed? Will follow up in2 daysto check on appeal outcome ? 04/17 - no update on denial [facility] will contact patient once med shipped/received to complete medication education ? Please refer to initial intake note for detailed review of regimen and patient-specific educationpoints Rosa Moreno Manager Film II [facility] Oral Chemotherapy Clinic 04/20/2023 10:38 AM Time Spent on Encounter: < 5 minutes documented in this encounter Plan of Treatment Upcoming Encounters Date Type Specialty Care Team Description 04/24/2023 Pharmacy Pharmacy [facility] [place] [facility] Hem/Onc [address] [facility] [place] [address] 05/01/2023 Office Visit Family Medicine Gabby Balderas DO [address] [place] [address] 05/10/2023 Office Visit Hematology [facility] [address] [facility] [address] 07/21/2023 Office Visit Gastroenterology Vianey Corrigan CRNP [address] [place] [address] Health Maintenance Due Date Last Done Comments [...] Documents on File Type Date Recorded Patient Production Support Developer Expl anation Advance Directives and Living Will 06/24/2022 ADVANCE DIRECTIVE / LIVING WILL Power of Pay Station Department Manager 06/24/2022 POWER OF A TTORNEY Latest Code Status on File Code Status Date Activated Date Inactivated Comments No Code 03/20/2023 1:42 AM 03/21/2023 5:59 PM This order reflects the patients wishes and were consensually agreed upon. Question Answer Comments Discussion of Advance Directives occurred with: Patient Care Teams Medical Billing Coordinator Relationship Specialty Start Date End Date Gabby Balderas DO [address] [place] [address] PCP - General Family Medicine 03/25/23 documented as of this encounter
--- OUTSIDE RECORDS SUMMARY | 2023-07-05 14:46 | External Medical Summary | Summary of Care ---
Author Name Unknown Organization [facility] Address [address] [place] [address] Phone [phone] Care Team Providers Care Screen Printing Loader Unloader Name Role Phone Gabby Balderas Primary Care Provider [phone] Reason for Visit * Reason Onset Date Comments Follow Up 04/17/2023 Sotorasib denial Encounter Details Date Type Department Care Team Description 04/17/2023 Telephone Hematology Oncology [facility] [address] [place] [address] Traci Mitchell MD [address] [place] [address] Follow Up (Sotorasib denial ) [...] [facility] DETECT Study: Project # [id number], Print Line Operator: Khadar Dodd, PhD. SUMMARY: Goal: Establish [...] contact study staff at ; after hours Print Line Operator via the [facility] cocoa room operator . Please contact study team before resolving/deleting from patients problem list. Study phone number: [phone]. Diagnosis changed due to Research Module. Go to Snapshot for study details. Encounter for examination fo r normal comparison and control in clinical research program 11/21/2017 06/30/2022 Overview: DO NOT DELETE - [employer] DETECT Study: Project # [id number], Print Line Operator: Mykel Gill, MS, MPH. SUMMARY: Goal: [...] contact study staff at ; after hours Print Line Operator via the [facility] cocoa room operator . - Please contact study team before resolving/deleting from patients problem list. Study phone number: [phone]. Diagnosis changed due to Research Module. Go [...] Encounter - Tri Gomez RN - 04/19/2023 4:[address] Mitchell, no call received from [facility] BC/BS. Called BC/BS, spoke with Darrel to explain that their physician did not call our physician as scheduled today to do peer to peer. Was transferred to Rachael in pharmacy [facility], who put clinical rep on phone. Spoke with Ashli in prior auth who said they have our clinic number listed to call on and not Dr. mitchell's number. I explained that Roberta took and repeated Dr. Mitchell's cell number to call back on. She put Angela in appeals on the line who states they received our appeal request and it is in review. In an event a peer to peer is needed the external reviewer physician will call Dr. Mitchell's cell phone within the next 24 hrs. She said turnaroud time for urgent appeal is 72 hrs. She said they will reach out to [facility] to let know if approved or denied. Total time 33.5 min * Telephone Encounter - Tri Gomez RN - 04/19/2023 2:23 PM EDT Returned call to [facility], spoke with Rocio who transferred to Merly who transferred to appeals dept. Spoke with Roberta in appeals dept who set up peer to peer with Dr Mitchell at 3:15 today on her cell.Number given. Dr Mitchell ok'd and aware of same. Call time total 25 min * Telephone Encounter - Tses Enriquez, KRISTA - 04/19/2023 1:32 PM EDT Received msg from [facility] regarding appeal, requires peer- to [...] the best way would be tocall into [facility] specialty pharamcy program which is federal something. [phone] and Did not submit enough info for it to be approved. 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 Also not capable to tolerate other systemic txt with concern for toxicity. Spoke with Reyna at [facility] who said pt needs to send reconsideration request and physician needs to also sent request with documentation to [phone]. Spoke with Erin with her mom in background who gave permission to obtain reconsideration and send letter on her behalf to /BS Letter marked Urgent reconsideration for Lumakras, copy of denial, progress note, Mygenvar result and pt reconsideration letter faxed to [phone] * Telephone Encounter - Araseli Jones, KRISTA - 04/19/2023 8:24 AM EDT We received [...] thing in themorning if you can regarding eRba. Thank you! * Telephone Encounter - Tri [...] at 1pm she will leaving. Please advise: [phone] * Telephone Encounter - KRISTA Evangelista - 04/18/2023 9:20 AM EDT Erin called back in returning your call about her mother Reba. She stated you can give her a call back at any time at [phone]. Thank you! * Telephone Encounter - Tri Gomez RN - 04/18/2023 9:06 AM EDT Called spoke with manoj Khan who said she can't talk right now [...] Specialty Care Team Description 04/20/2023 Pharmacy Pharmacy [facility] [place] Hem/Onc [address] [facility] [place] [address] 05/01/2023 Office Visit Family Medicine Gabby Balderas DO [address] [place] [address] 05/10/2023 Office Visit Hematology Oncology Hesham Bray MD [address] [facility] [place] [address] 07/21/2023 Office Visit Gastroenterology Shekhar Vianey Diliajennifer, ENVIRONMENTAL MAINTENANCE WORKER [address] [place] [address] Health Maintenance Due Date Last Done Comments [...] Documents on File Type Date Recorded Patient Meter And Regulator Shop Supervisor Expl anation Advance Directives and Living Will 06/24/2022 ADVANCE DIRECTIVE / LIVING WILL Power of Barrel Cap Setter 06/24/2022 POWER OF A TTORNEY Latest Code Status on File Code Status Date Activated Date Inactivated Comments No Code 03/20/2023 1:42 AM 03/21/2023 5:59 PM This order reflects the patients wishes and were consensually agreed upon. Question Answer Comments Discussion of Advance Directives occurred with: Patient Care Teams Screen Printing Loader Unloader Relationship Specialty Start Date End Date Gabby Balderas DO [address] [place] [address] PCP - General Family Medicine 03/25/23 documented as of this encounter
--- OUTSIDE RECORDS SUMMARY | 2023-07-05 14:46 | External Medical Summary | Summary of Care ---
Author Name Unknown Organization [facility] Address [address] [place] [address] Phone [phone] Care Team Providers Care Accounting Bookkeeper Name Role Phone Gabby Balderas Primary Care Provider [phone] Reason for Visit * Reason Onset Date Comments Medication Question 04/25/2023 Encounter Details Date Type Department Care Team Description 04/25/2023 Telephone Pharmacy Hematology Oncology [facility] [address] [place], [place] [address] Traci Mitchell MD [address] [place] [address] Medication Question Allergies No known [...] [facility] DETECT Study: Project # [id number], Emr Implementation Specialist: Khadar Dodd, PhD. SUMMARY: Goal: Establish [...] contact study staff at ; after hours Emr Implementation Specialist via the [facility] carton filling machine operator . Please contact study team before resolving/deleting from patients problem list. Study phone number: [phone]. Diagnosis changed due to Research Module. Go to Snapshot for study details. Encounter for examination fo r normal comparison and control in clinical research program 11/21/2017 06/30/2022 Overview: DO NOT DELETE - [employer] DETECT Study: Project # [id number], Emr Implementation Specialist: Mykel Gill, MS, MPH. SUMMARY: Goal: [...] contact study staff at ; after hours Emr Implementation Specialist via the [facility] carton filling machine operator . - Please contact study team before resolving/deleting from patients problem list. Study phone number: [phone]. Diagnosis changed due to Research Module. 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 Mitchell Caller: Daughter - Erin Incoming Request: Patient has questions regarding oral chemotherapy Action: Sent telephone encounter to pharmacist for follow-up Additional Notes: Requesting a return call @ . Has questions about Lumakras. Rosa Moreno Final Tester II [facility] Oral Chemotherapy Clinic 04/25/2023 9:10 AM Time Spent on Encounter: < 5 minutes documented in this encounter Plan of Treatment Upcoming Encounters Date Type Specialty Care Team Description 04/26/2023 Pharmacy [facility] Hem[facility]c [address] [facility] [place] [address] 05/10/2023 Office Visit Hematology Oncology Hesham Bray MD [address] [place] [address] 07/21/2023 Office Visit Gastroenterology Shekhar Vianey Diliajennifer, DAVID [address] [place] [address] Health Maintenance Due Date Last Done Comments [...] Documents on File Type Date Recorded Patient Home Visits Nurse Expl anation Advance Directives and Living Will 06/24/2022 ADVANCE DIRECTIVE / LIVING WILL Power of Track Equipment Operator 06/24/2022 POWER OF A TTORNEY Latest Code Status on File Code Status Date Activated Date Inactivated Comments No Code 03/20/2023 1:42 AM 03/21/2023 5:59 PM This order reflects the patients wishes and were consensually agreed upon. Question Answer Comments Discussion of Advance Directives occurred with: Patient Care Teams Accounting Bookkeeper Relationship Specialty Start Date End Date Gabby Balderas DO [address] [place] [address] PCP - General Family Medicine 03/25/23 documented as of this encounter
--- OUTSIDE RECORDS SUMMARY | 2023-07-05 14:46 | External Medical Summary | Summary of Care ---
Author Name Unknown Organization [facility] Address [address] [place] [address] Phone [phone] Care Team Providers Care Carpenter Supervisor Wooden Ship Name Role Phone Gabby Balderas Primary Care Provider [phone] Reason for Visit * Reason Onset Date Comments Follow Up 04/17/2023 Sotorasib denial Encounter Details Date Type Department Care Team Description 04/17/2023 Telephone Hematology Oncology [facility] [address] [place] [address] Traci Mitchell MD [address] [place] [address] Follow Up (Sotorasib denial ) [...] 11/21/2017 06/01/2020 Overview: DO NOT DELETE [facility] DETECT Study: Project # [id number], Inspector And Clerk: Khadar Dodd, PhD. SUMMARY: Goal: Establish [...] contact study staff at ; after hours Inspector And Clerk via the [facility] doughnut machine operator helper . Please contact study team before resolving/deleting from patients problem list. Study phone number: [phone]. Diagnosis changed due to Research Module. Go to Snapshot for study details. Encounter for examination fo r normal comparison and control in clinical research program 11/21/2017 06/30/2022 Overview: DO NOT DELETE - [employer] DETECT Study: Project # [id number], Inspector And Clerk: Mykel Gill, MS, MPH. SUMMARY: Goal: [...] contact study staff at ; after hours Inspector And Clerk via the [facility] hospital doughnut machine operator helper . - Please contact study team before resolving/deleting from patients problem list. Study phone number: [phone]. Diagnosis changed due to Research Module. Go [...] was told the best way would be to call into [facility] specialty pharamcy program which is federal something. [phone] and Did not submit enough info for it to be approved. 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 Also not capable to tolerate other systemic txt with concern for toxicity. Spoke with Reyna at [facility] who said pt needs to send reconsideration request and physician needs to also sent request with documentation to [phone]. Spoke with Erin with her mom in background who gave permission to obtain reconsideration and send letter on her behalf to BC/BS Letter marked Urgent reconsideration for Lumakras, copy of denial, progress note, Mygenvar result and pt reconsideration letter faxed to [phone] * Telephone Encounter - KRISTA Evangelista - [...] at 1pm she will leaving. Please advise: [phone] * Telephone Encounter - KRISTA Evangelista - 04/18/2023 9:20 AM EDT Erin called back in returning your call about her mother Reba. She stated you can give her a call back at any time at [phone]. Thank you! * Telephone Encounter - Tri [...] Specialty Care Team Description 04/20/2023 Pharmacy Pharmacy [facility] [place], [facility] Hem/Onc [address] [facility] [place] [address] 05/01/2023 Office Visit Family Medicine Gabby Balderas DO [address] [place] [address] 05/10/2023 Office Visit Hematology Oncology Hesham Bray MD [address] [place] [address] 07/21/2023 Office Visit Gastroenterology Shekhar, Vianey DiliajenniferDAVID [address] [place] [address] Health Maintenance Due Date Last Done Comments [...] Documents on File Type Date Recorded Patient Scientific Software Developer Expl anation Advance Directives and Living Will 06/24/2022 ADVANCE DIRECTIVE / LIVING WILL Power of High Pressure Operator 06/24/2022 POWER OF A TTORNEY Latest Code Status on File Code Status Date Activated Date Inactivated Comments No Code 03/20/2023 1:42 AM 03/21/2023 5:59 PM This order reflects the patients wishes and were consensually agreed upon. Question Answer Comments Discussion of Advance Directives occurred with: Patient Care Teams Carpenter Supervisor Wooden Ship Relationship Specialty Start Date End Date Gabby Balderas DO [address] [place] [address] PCP - General Family Medicine 03/25/23 documented as of this encounter
--- OUTSIDE RECORDS SUMMARY | 2023-07-05 14:46 | External Medical Summary | Summary of Care ---
Author Name Unknown Organization [facility] Address [address] [place] [address] Phone [phone] Care Team Providers Care Resident Hall Director Name Role Phone SherrieGabby gonzalez Zofia NAIK Primary Care Provider [phone] Reason for Visit * Reason Comments Medication Management Encounter Details Date Type Department Care Team Description 04/24/2023 Pharmacy Pharmacy Hematology Oncology [facility] [address] [place] [address] [facility], [facility] Hem/Onc [address] [place] [address] Primary cancer of left upper lobe of [...] program 11/21/2017 06/01/2020 Overview: DO NOT DELETE [employer] DETECT Study: Project # [id number], Nurse Advisor: Khadar Dodd, PhD. SUMMARY: Goal: Establish [...] contact study staff at ; after hours Nurse Advisor via the [facility] briquette machine operator helper . Please contact study team before resolving/deleting from patients problem list. Study phone number: [phone]. Diagnosis changed due to Research Module. Go to Snapshot for study details. Encounter for examination fo r normal comparison and control in clinical research program 11/21/2017 06/30/2022 Overview: DO NOT DELETE - [employer] DETECT Study: Project # [id number], Nurse Advisor: Mykel Gill, MS, MPH. SUMMARY: Goal: [...] contact study staff at ; after hours Nurse Advisor via the [facility] briquette machine operator helper . - Please contact study team before resolving/deleting from patients problem list. Study phone number: [phone]. Diagnosis changed due to Research Module. 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 Mitchell Supportive Care Meds: Olanzapine Ondansetron (to be ordered via beacon plan) Yes/no Date Action Taken [place] plan entered? Yes 04/12/23 Consent completed? Yes 04/14/23 Intro/med rec completed? Precert completed? Yes 04/13/23 Peer to peer completed with Dr. Mitchell on 04/21. Awaiting final approval Test claim completed? Financial assistance needed? Physician signature? Yes 04/12/23 Rx released? No Education completed? Will follow up in2 daysto check on appeal outcome [facility] will contact patient once med shipped/received to complete medication education ? Please refer to initial intake note for detailed review of regimen and patient-specific educationpoints Rosa Moreno Major Gifts Manager II [facility] Oral Chemotherapy Clinic 04/24/2023 12:57 PM Time Spent on Encounter: < 5 minutes documented in this encounter Plan of Treatment Upcoming Encounters Date Type Specialty Care Team Description 05/10/2023 Office Visit Hematology Oncology Hesham Bray MD [address] [facility] [place], [place] [address] 07/21/2023 Office Visit Gastroenterology Vianey Corrigan CRNP [address] [place] [address] Health Maintenance Due Date Last Done Comments [...] Documents on File Type Date Recorded Patient Relationship Management Lead Expl anation Advance Directives and Living Will 06/24/2022 ADVANCE DIRECTIVE / LIVING WILL Power of Casing Worker 06/24/2022 POWER OF A TTORNEY Latest Code Status on File Code Status Date Activated Date Inactivated Comments No Code 03/20/2023 1:42 AM 03/21/2023 5:59 PM This order reflects the patients wishes and were consensually agreed upon. Question Answer Comments Discussion of Advance Directives occurred with: Patient Care Teams Resident Hall Director Relationship Specialty Start Date End Date Gabby Balderas DO [address] [place] [address] PCP - General Family Medicine 03/25/23 documented as of this encounter
--- OUTSIDE RECORDS SUMMARY | 2023-07-05 14:47 | External Medical Summary ---
Author Name Unknown Address Unknown Organization K01:[facility] [place] [address] [place] [address] Laboratory Report Ordering Provider Test Date Status BISHOPBERTO 04/18/2023 12:04:33 Final Observation Date Value Abnormality Reference (Units) Status Bacteria identified in Unspecified specimen by Culture 04/18/2023 12:04:33 No significant growth Final Performing Location LABORATORY [facility] - [address] [place] [id number]
--- OUTSIDE RECORDS SUMMARY | 2023-07-05 14:47 | External Medical Summary ---
Author Name Unknown Address Unknown Organization K01:[facility]AT[facility] [place] - [address] [place] [address] Laboratory Report Ordering Provider Test Date Status BERTO ALAS 04/18/2023 11:40:59 Final Observation Date Value Abnormality Reference (Units ) Status TSH 04/18/2023 11:40:59 1.48 0.27-4.20 (uIU/mL) Final Performing Location LABORATORY [facility] [place] - [address] [place] [id number]
--- OUTSIDE RECORDS SUMMARY | 2023-07-05 14:47 | External Medical Summary | Summary of Care ---
Author Name Unknown Organization [facility] Address [address] [place] [address] Phone [phone] Care Team Providers Care Senior Control Systems Engineer Name Role Phone SherrieGabby gonzalez Zofia NAIK Primary Care Provider [phone] Reason for Visit * Reason Comments Medication Management Encounter Details Date Type Department Care Team Description 04/17/2023 Pharmacy Pharmacy Hematology Oncology [facility] [address] [place] [address] [facility] Hem[facility]Onc [address] [place] [address] 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)* Allergies No known active allergiesdocumented as of this encounter (statuses as of 04/18/2023) Medications Medication Sig Dispensed Refills Start Date [...] as of this encounter (statuses as of 04/18/2023) Active Problems Problem Noted Date Primary cancer [...] as of this encounter (statuses as of 04/18/2023) Resolved Problems Problem Noted Date Resolved Date Encounter for examination fo r normal comparison and control in clinical research program 11/21/2017 06/01/2020 Overview: DO NOT DELETE [employer] DETECT Study: Project # [id number], Football Pad Repairer: Khadar Dodd, PhD. SUMMARY: Goal: Establish test [...] contact study staff at ; after hours Football Pad Repairer via the [facility] buttermilk drier operator . Please contact study team before resolving/deleting from patients problem list. Study phone number: [phone]. Diagnosis changed due to Research Module. Go to Snapshot for study details. Encounter for examination fo r normal comparison and control in clinical research program 11/21/2017 06/30/2022 Overview: DO NOT DELETE - [employer] DETECT Study: Project # [id number], Football Pad Repairer: Mykel Gill, MS, MPH. SUMMARY: Goal: Establish [...] contact study staff at ; after hours Football Pad Repairer via the [facility] buttermilk drier operator . - Please contact study team before resolving/deleting from patients problem list. Study phone number: [phone]. Diagnosis changed due to Research Module. Go to Snapshot for study details. 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 Mitchell Supportive Care Meds: Olanzapine Ondansetron (to be ordered via beacon plan) Yes/no Date Action Taken [place] plan entered? Yes 04/12/23 Consent completed? Yes 04/14/23 Intro/med rec completed? Precert completed? Yes 04/13/23 Denied - sent TE to NS Test claim completed? Financial assistance needed? Physician signature? Yes 04/12/23 Rx released? Education completed? Will follow up in 3 days to check on precert status appeal 04/17 - no update on denial [facility] will contact patient once med shipped/received to complete medication education ? Please refer to initial intake note for detailed review of regimen and patient-specific educationpoints Rosa Moreno Spine Nurse II [facility] Oral Chemotherapy Clinic 04/17/2023 12:14 PM Time Spent on Encounter: < 5 minutes documented in this encounter Plan of Treatment Upcoming Encounters Date Type Specialty Care Team Description 05/01/2023 Office Visit Family Medicine Gabby Balderas, DO [address] [place] [address] 05/10/2023 Office Visit Hematology Oncology Hesham Bray MD [address] [place] [address] 07/21/2023 Office Visit Gastroenterology Vianey Corrigan CRNP [address] [place] [address] Health Maintenance Due Date Last Done Comments [...] Documents on File Type Date Recorded Patient Marketing Operations Assistant Expl anation Advance Directives and Living Will 06/24/2022 ADVANCE DIRECTIVE / LIVING WILL Power of Materials Management Manager 06/24/2022 POWER OF A TTORNEY Latest Code Status on File Code Status Date Activated Date Inactivated Comments No Code 03/20/2023 1:42 AM 03/21/2023 5:59 PM This order reflects the patients wishes and were consensually agreed upon. Question Answer Comments Discussion of Advance Directives occurred with: Patient Care Teams Senior Control Systems Engineer Relationship Specialty Start Date End Date Gabby Balderas DO [address] [place] [address] PCP - General Family Medicine 03/25/23 documented as of this encounter
--- OUTSIDE RECORDS SUMMARY | 2023-07-05 14:47 | External Medical Summary ---
Author Name Unknown Address Unknown Organization K01:LABORATORY C - [address] [place] [address] Laboratory Report Ordering Provider Test Date Status FRANTZ MORALEZ 04/18/2023 11:40:59 Final Observation Date Value Abnormality Reference (Units ) Status [facility] 04/18/2023 11:40:59 Freezing of extracted DNA, whole blood and/or serum. Final Performing Location LAB[facility]ATORY [facility] - [address] [place] [address]
--- OUTSIDE RECORDS SUMMARY | 2023-07-05 14:47 | External Medical Summary ---
Author Name Unknown Address Unknown Organization K0G:LABORATORY [facility] 57-10 - [address] [place] [address] Laboratory Report Ordering Provider Test Date Status BERTO ALAS 04/18/2023 11:40:59 Final Observation Date Value Abnormality Reference (Units ) Status WBC, Total 04/18/2023 11:40:59 11.47 Above high normal 4 .00-10.80 (K/uL) Final RBC 04/18/2023 11:40:59 3.97 3.85-5.15 (M/uL) Final Hemoglobin 04/18/2023 11:40:59 10.2 Below low normal 12 .0-15.3 (g/dL) Final HCT 04/18/2023 11:40:59 31.4 Below low normal 36. 0-45.2 (%) Final MCV 04/18/2023 11:40:59 79.1 81.5-97.5 (fL) Final MCH 04/18/2023 11:40:59 25.7 27.0-34.0 (pg) Final MCHC 04/18/2023 11:40:59 32.5 32.0-36.0 (g/dL) Final RDW 04/18/2023 11:40:59 15.2 11.5-15.5 (%) Final Platelets 04/18/2023 11:40:59 608 Above high normal 14 0-400 (K/uL) Final MPV 04/18/2023 11:40:59 8.7 6.6-11.1 ( fL) Final Performing Location LABORATORY [facility] 57-1 0 - [address] [place] [address]
--- OUTSIDE RECORDS SUMMARY | 2023-07-05 14:47 | External Medical Summary ---
Author Name Unknown Address Unknown Organization K0G[facility] [address] [place] [address] Laboratory Report Ordering Provider Test Date Status BERTO ALAS 04/18/2023 11:40:59 Final Observation Date Value Abnormality Reference (Units ) Status Nucleated erythrocytes/100 leukocytes [Ratio] in Blood by Automated count 04/18/2023 11:40:59 Final Performing Location [facility] 0 - [address] [place] [address]
--- OUTSIDE RECORDS SUMMARY | 2023-07-05 14:47 | External Medical Summary ---
Author Name Unknown Address Unknown Organization K01:LABORATORY [facility] - [facility] [address] [place] [address] Laboratory Report Ordering Provider Test Date Status BERTO ALAS 04/18/2023 11:40:59 Final Observation Date Value Abnormality Reference (Units) Status Hepatitis B virus surface Ab [Units/volume] in Serum or Plasma by Immunoassay 04/18/2023 11:40:59 <3.5 (mIU/mL) Final Hepatitis B virus surface Ab [Presence] in Serum by Immunoassay 04/18/2023 11:40:59 Negative Final HEPATITIS B SURFACE ANTIBODY, INTERPRETATION 04/18/2023 11:40:59 NOT immune to Hepatitis B Virus Final Performing Location LABORATORY [facility] - [address] [place] [address]
--- OUTSIDE RECORDS SUMMARY | 2023-07-05 14:47 | External Medical Summary ---
Author Name Unknown Address Unknown Organization K01:LABORATORY [facility] - [address] [place] [address] Laboratory Report Ordering Provider Test Date Status RONNY ALASEY 04/18/2023 11:40:59 Final Observation Date Value Abnormality Reference (Units ) Status Hepatitis B virus core Ab [Presence] in Serum 04/18/2023 11:40:59 Negative Negative Final Performing Location LABORATORY [facility] - [address] [place] [address]
--- OUTSIDE RECORDS SUMMARY | 2023-07-05 14:47 | External Medical Summary ---
Author Name Unknown Address Unknown Organization K01:LABORATORY [facility] - [address] [place] [address] Laboratory Report Ordering Provider Test Date Status BERTO ALAS 04/18/2023 11:40:59 Final Observation Date Value Abnormality Reference (Units ) Status Hep B surface Ag 04/18/2023 11:40:59 Negative Neg ative Final Performing Location LAB[facility]ATORY [facility] - [address] [place] [address]
--- OUTSIDE RECORDS SUMMARY | 2023-07-05 14:47 | External Medical Summary ---
Author Name Unknown Address Unknown Organization K01:[facility] [place] [address] [place] [address] Laboratory Report Ordering Provider Test Date Status FRANTZ MORALEZ 04/18/2023 11:40:59 Final Observation Date Value Abnormality Reference (Units ) Status MYCODE SPECIMEN-SST 04/18/2023 11:40:59 Freezing of extracted DNA, whole blood and/or serum. Final Performing Location [facility] [place] [address] [facility] [address]
--- OUTSIDE RECORDS SUMMARY | 2023-07-05 14:47 | External Medical Summary ---
Author Name Unknown Address Unknown Organization K01:LABORATORY [facility] - [address] [place] [address] Laboratory Report Ordering Provider Test Date Status FRANTZ MORALEZ 04/18/2023 11:40:59 Final Observation Date Value Abnormality Reference (Units ) Status MYCODE SPECIMEN-SST 04/18/2023 11:40:59 Freezing of extracted DNA, whole blood and/or serum. Final Performing Location LABORATORY [facility] - [address] [facility] [address]
--- OUTSIDE RECORDS SUMMARY | 2023-07-05 14:47 | External Medical Summary ---
Author Name Unknown Address Unknown Organization K0G:LABORATORY [facility] 57-10 - [address] [place] [address] Laboratory Report Ordering Provider Test Date Status BERTO ALAS 04/18/2023 11:40:59 Final Observation Date Value Abnormality Reference (Units ) Status SYNC LEUKOCYTES IN BLOOD BY AUTOMATED COUNT 04/18/2023 11:40:59 11.47 Above high normal 4.00-10.80 (K/uL) Final Segs 04/18/2023 11:40:59 63.3 40.0-75.0 (%) Final Lymphs % 04/18/2023 11:40:59 23.1 18.0-42.0 (%) Final Monos 04/18/2023 11:40:59 12.3 Above high normal 1.0-11.0 (%) Final Eosinophils 04/18/2023 11:40:59 1.0 0.0-6.0 (%) Final Basos 04/18/2023 11:40:59 0.3 0.0-2.0 (%) Final Absolute Segs 04/18/2023 11:40:59 7.27 1.80-7.70 (K/uL) Final Lymphs, absolute 04/18/2023 11:40:59 2.65 1.00-4.80 (K/ul) Final Monos, Abs 04/18/2023 11:40:59 1.41 Above high normal 0.00-1.10 (K/uL) Final Eos, Abs 04/18/2023 11:40:59 0.11 0.00-0.70 (K/uL) Final Basos, Abs 04/18/2023 11:40:59 0.03 0.00-0.20 (K/uL) Final Performing Location LABORATORY [facility] 57-1 0 - [address] [facility] [address]
--- OUTSIDE RECORDS SUMMARY | 2023-07-05 14:47 | External Medical Summary ---
Author Name Unknown Address Unknown Organization K0G:LABORATORY [facility] 57-[address] - [address] [place] [address] Laboratory Report Ordering Provider Test Date Status BERTO ALAS 04/18/2023 11:40:59 Final Observation Date Value Abnormality Reference (Units ) Status BUN 04/18/2023 11:40:59 22 Above high normal 6-20 (mg/dL) Final Creatinine 04/18/2023 11:40:59 0.9 0.5-1.0 (mg/dL) Final Glomerular filtration rate/1.73 sq M.predicted [Volume Rate/Area] in Serum, Plasma or Blood by Creatinine-based formula (CKD-EPI) 04/18/2023 11:40:59 62 >=60 (mL/min) Final Performing Location LABORATORY [facility] 57-[address] 0 - [address] [place] [address]
--- OUTSIDE RECORDS SUMMARY | 2023-07-05 14:47 | External Medical Summary ---
Author Name Unknown Address Unknown Organization K01:LABORATORY [facility] - [address] [facility] [address] Laboratory Report Ordering Provider Test Date Status BERTO ALAS 04/18/2023 11:40:59 Final Observation Date Value Abnormality Reference (Units ) Status Hep C Ab 04/18/2023 11:40:59 Negative Negative Final Performing Location LABORATORY [facility] - [address] [place] [address]
--- OUTSIDE RECORDS SUMMARY | 2023-07-05 14:47 | External Medical Summary | Summary of Care ---
Author Name Unknown Organization [facility] Address [address] [place] [address] Phone [phone] Care Team Providers Care Emergency Medical Service Manager Name Role Phone Sherrie Gabbyjessica Armijo DO Primary Care Provider [phone] Reason for Visit * Reason Comments Outpatient Testing Encounter Details Date Type Department Care Team Description 04/18/2023 Laboratory Laboratory, [facility] [address] [place] [id number] [facility] [address] [place] [address] [employer] Other*[id number]; 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); Bilateral pulmonary embolism (HCC); Encounter for screening for other viral diseases; Encounter for long-term (current) use of medications; Dysuria Allergies No known active allergiesdocumented as of [...] research program 11/21/2017 06/01/2020 Overview: DO NOT FORMERLY [facility] DETECT Study: Project # [id number], Shackler: Khadar Dodd, PhD. SUMMARY: Goal: Establish test [...] contact study staff at ; after hours Shackler via the [facility] hospital mottle lay up operator . Please contact study team before resolving/deleting from patients problem list. Study phone number: [phone]. Diagnosis changed due to Research Module. Go to Snapshot for study details. Encounter for examination fo r normal comparison and control in clinical research program 11/21/2017 06/30/2022 Overview: DO NOT DELETE [facility] DETECT Study: Project # [id number], Shackler: Mykel Gill, MS, MPH. SUMMARY: Goal: Establish [...] contact study staff at ; after hours Shackler via the [facility] hospital mottle lay up operator . - Please contact study team before resolving/deleting from patients problem list. Study phone number: [phone]. Diagnosis changed due to Research Module. Go [...] Specialty Care Team Description 04/20/2023 Pharmacy Pharmacy [facility] Hem[facility]Onc [address] [place] [address] 05/01/2023 Office Visit Family Medicine Gabby Balderas DO [address] [place] [address] 05/10/2023 Office Visit Hematology Oncology Hesham Bray MD [address] [facility] [place] [address] 07/21/2023 Office Visit Gastroenterology Vianey Corrigan CRNP [address] [place] [address] Pending Results Name Type Priority Associated Diagnoses Date /Time MYCODE INITIAL ADULT Lab Routine MyCode Research Other*[id number] 04/18/2023 11:40 AM EDT HEPATITIS B SURFACE ANTIBODY Lab STAT 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) Bilateral pulmonary embolism (HCC) 04/18/2023 11:40 AM EDT HEPATITIS B SURFACE ANTIGEN Lab STAT 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) Bilateral pulmonary embolism (HCC) Encounter for screening for other viral diseases 04/18/2023 11:40 AM EDT HEPATITIS B CORE ANTIBODIES IGG AND IGM Lab STAT 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) Bilateral pulmonary embolism (HCC) Encounter for screening for other viral diseases 04/18/2023 11:40 AM EDT HEPATITIS C ANTIBODY SCREEN WITH PROGRESSION TO HEPATITIS C RNA QUANTITATIVE Lab STAT 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) Bilateral pulmonary embolism (HCC) 04/18/2023 11:40 AM EDT TSH WITH FREE T4 IF INDICATED Lab Routine 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) Encounter for long-term (current) use of medications 04/18/2023 11:40 AM EDT MYCODE INITIAL ADULT-PINK Lab Routine MyCode Research Other*[id number] 04/18/2023 11:40 AM EDT MYCODE SST1 Lab Routine MyCode Research Other*[id number] 04/18/2023 11:40 AM EDT MYCODE SST2 Lab Routine MyCode Research Other*[id number] 04/18/2023 11:40 AM EDT HEPATITIS C ANTIBODY Lab STAT 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) Bilateral pulmonary embolism (HCC) 04/18/2023 11:40 AM EDT HEPATITIS C RNA ADD ON Lab STAT 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) Bilateral pulmonary embolism (HCC) 04/18/2023 11:40 AM EDT CULTURE, URINE, QUANTITATIVE Lab STAT 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) Dysuria 04/18/2023 12:04 PM EDT Health Maintenance Due Date Last [...] Date/Time Associated Diagnosis Comments DIFFERENTIAL, AUTOMATED STAT 04/18/2023 11:40 AM EDT 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) Bilateral pulmonary embolism (HCC) COMPREHENSIVE METABOLIC PANEL STAT 04/18/2023 11:40 AM EDT 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) Bilateral pulmonary embolism (HCC) CBC WITH WBC DIFFERENTIAL STAT 04/18/2023 11:40 AM EDT 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) Bilateral pulmonary embolism (HCC) CBC STAT 04/18/2023 11:40 AM EDT 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) Bilateral pulmonary embolism (HCC) DIFFERENTIAL, TECHNOLOGIST REVIEW Routine 04/18/2023 11:40 AM EDT 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) Bilateral pulmonary embolism (HCC) documented in this encounter Results * DIFFERENTIAL, TECHNOLOGIST REVIEW (04/18/2023 11:40 AM EDT) [facility] 04/18/2023 12:49 PM EDT [facility] Blood Venous blood specimen / Unknown Venipuncture / Unknown 04/18/2023 11:40 AM EDT 04/18/2023 11:41 AM EDT Traci Mitchell MD LAB BLOOD ORDERABLES LABORATORY [facility] [address] [place] [address] [place] [address] * (ABNORMAL) DIFFERENTIAL, AUTOMATED (04/18/2023 11:40 AM EDT) WBC 11.47(H) 4.00 - 10.80 K/uL 04/18/2023 12:49 PM EDT [facility]10 Neutrophils % 63.3 40.0 - 75.0 % 04/18/2023 12:49 PM EDT [facility]10 Lymphocytes % 23.1 18.0 - 42.0 % 04/18/2023 12:49 PM EDT [facility] 57[facility]10 Monocytes % 12.3(H) 1.0 - 11.0 % 04/18/2023 12:49 PM EDT [facility] 57-10 Eosinophils % 1.0 0.0 - 6.0 % 04/18/2023 12:49 PM EDT [facility] 57-10 Basophils % 0.3 0.0 - 2.0 % 04/18/2023 12:49 PM EDT [facility]10 Absolute Neutrophils 7.27 1.80 - 7.70 K/uL 04/18/2023 12:49 PM EDT [facility] 57[facility]10 Absolute Lymphocytes 2.65 1.00 - 4.80 K/ul 04/18/2023 12:49 PM EDT [facility]10 Absolute Monocytes 1.41(H) 0.00 - 1.10 K/uL 04/18/2023 12:49 PM EDT [facility]10 Absolute Eosinophils 0.11 0.00 - 0.70 K/uL 04/18/2023 12:49 PM EDT [facility]10 Absolute Basophils 0.03 0.00 - 0.20 K/uL 04/18/2023 12:49 PM EDT [facility] 57[facility]10 Blood Venous blood specimen / Unknown Venipuncture / Unknown 04/18/2023 11:40 AM EDT 04/18/2023 11:41 AM EDT Traci Mitchell MD LAB BLOOD ORDERABLES [facility]10 [address] [facility] [place] [address] * (ABNORMAL) CBC (04/18/2023 11:40 AM EDT) WBC 11.47(H) 4.00 - 10.80 K/uL 04/18/2023 12:49 PM EDT [facility]10 RBC 3.97 3.85 - 5.15 M/uL 04/18/2023 12:49 PM EDT [facility]10 HGB 10.2(L) 12.0 - 15.3 g/dL 04/18/2023 12:49 PM EDT [facility]10 HCT 31.4(L) 36.0 - 45.2 % 04/18/2023 12:49 PM EDT [facility]10 MCV 79.1 81.5 - 97.5 fL 04/18/2023 12:49 PM EDT [facility]10 MCH 25.7 27.0 - 34.0 pg 04/18/2023 12:49 PM EDT [facility]10 MCHC 32.5 32.0 - 36.0 g/dL 04/18/2023 12:49 PM EDT [facility]10 RDW 15.2 11.5 - 15.5 % 04/18/2023 12:49 PM EDT [facility]10 PLT 608(H) 140 - 400 K/uL 04/18/2023 12:49 PM EDT [facility]10 MPV 8.7 6.6 - 11.1 fL 04/18/2023 12:49 PM EDT [facility]10 Blood Venous blood specimen / Unknown Venipuncture / Unknown 04/18/2023 11:40 AM EDT 04/18/2023 11:41 AM EDT Traci Mitchell MD LAB BLOOD ORDERABLES [facility] [facility] [place] [address] * (ABNORMAL) COMPREHENSIVE METABOLIC PANEL (04/18/2023 11:40 AM EDT) BUN 22(H) 6 - 20 mg/dL 04/18/2023 12:33 PM EDT LABORATORY [facility] 57-10 Creatinine 0.9 0.5 - 1.0 mg/dL 04/18/2023 12:33 PM EDT LABORATORY [facility] 57-10 Estimated Glomerular Filtration Rate 62 >=60 mL/min 04/18/2023 12:33 PM EDT LABORATORY [facility] 57-10 Comment:eGFR is calculated b ased on the CKD-EPI 2020 equation Sodium 132(L) 135 - 146 mmol/L 04/18/2023 12:33 PM EDT LABORATORY [facility] 57-10 Potassium 4.0 3.5 - 5.1 mmol/L 04/18/2023 12:33 PM EDT LABORATORY [facility] 57-10 Chloride 95(L) 98 - 107 mmol/L 04/18/2023 12:33 PM EDT LABORATORY [facility] 57- CO2 24 22 - 32 mmol/L 04/18/2023 12:33 PM EDT LABORATORY [facility] 57-10 Anion Gap 13 7 - 15 mmol/L 04/18/2023 12:33 PM EDT LABORATORY [facility] 57-10 Glucose 98 70 - 120 mg/dL 04/18/2023 12:33 PM EDT LABORATORY [facility] 57-10 Albumin 3.3(L) 3.8 - 5.0 g/dL 04/18/2023 12:33 PM EDT LABORATORY [facility] 57-10 AST 20 10 - 35 U/L 04/18/2023 12:33 PM EDT LABORATORY [facility] 57-10 Alkaline Phosphatase 116 35 - 130 U/L 04/18/2023 12:33 PM EDT LABORATORY [facility] 57-10 Bilirubin, Total 0.3 <=1.2 mg/dL 04/18/2023 12:33 PM EDT LABORATORY [facility] 57-10 Calcium 9.4 8.4 - 10.2 mg/dL 04/18/2023 12:33 PM EDT LABORATORY [facility] 57-10 Protein 8.9(H) 6.0 - 8.3 g/dL 04/18/2023 12:33 PM EDT [facility]10 ALT 19 10 - 35 U/L 04/18/2023 12:33 PM EDT [facility]ORY [facility] 57-10 Blood Venous blood specimen / Unknown Venipuncture / Unknown 04/18/2023 11:40 AM EDT 04/18/2023 11:41 AM EDT Traci Mitchell MD LAB BLOOD ORDERABLES [facility] [place] [address] documented in this encounter Visit Diagnoses Diagnosis MyCode Research Other*[id number] 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) Bilateral pulmonary embolism (HCC) Other pulmonary embolism and infarction Encounter for screening for other viral diseases Encounter for long-term (current) use of medications Encounter for long-term (current) use of other medications Dysuria documented in this encounter Advance Directives Documents on File Type Date Recorded Patient Online Marketing Strategist Expl anation Advance Directives and Living Will 06/24/2022 ADVANCE DIRECTIVE / LIVING WILL Power of Wire Turning Machine Operator 06/24/2022 POWER OF A TTORNEY Latest Code Status on File Code Status Date Activated Date Inactivated Comments No Code 03/20/2023 1:42 AM 03/21/2023 5:59 PM This order reflects the patients wishes and were consensually agreed upon. Question Answer Comments Discussion of Advance Directives occurred with: Patient Care Teams Emergency Medical Service Manager Relationship Specialty Start Date End Date Gabby Balderas DO [address] [place] [address] PCP - General Family Medicine 03/25/23 documented as of this encounter
--- OUTSIDE RECORDS SUMMARY | 2023-07-05 14:48 | External Medical Summary | Summary of Care ---
Author Name Unknown Organization [facility] Address [address] [place] [address] Phone [phone] Care Team Providers Care Foreign Language Professor Name Role Phone Gabby Balderas DO Primary Care Provider [phone] Encounter Details Date Type Department Care Team Description 04/14/2023 Telephone Hematology Oncology [facility] [address] [place] [address] Traci Mitchell MD [address] [place] [address] Allergies No known active allergiesdocumented as of this encounter (statuses as of 04/14/2023) Medications Medication Sig Dispensed Refills Start Date [...] as of this encounter (statuses as of 04/14/2023) Active Problems Problem Noted Date Primary cancer [...] as of this encounter (statuses as of 04/14/2023) Resolved Problems Problem Noted Date Resolved Date Encounter for examination fo r normal comparison and control in clinical research program 11/21/2017 06/01/2020 Overview: DO NOT DELETE [facility] [place] DETECT Study: Project # [id number], Machine Wiper: Khadar Dodd, PhD. SUMMARY: Goal: Establish test [...] contact study staff at ; after hours Machine Wiper via the [facility] base wad operator adjuster . Please contact study team before resolving/deleting from patients problem list. Study phone number: [phone]. Diagnosis changed due to Research Module. Go to Snapshot for study details. Encounter for examination fo r normal comparison and control in clinical research program 11/21/2017 06/30/2022 Overview: DO NOT DELETE - [facility] [place] DETECT Study: Project # [id number], Machine Wiper: Mykel Gill, MS, MPH. SUMMARY: Goal: Establish [...] contact study staff at ; after hours Machine Wiper via the [facility] base wad operator adjuster . - Please contact study team before resolving/deleting from patients problem list. Study phone number: [phone]. Diagnosis changed due to Research Module. Go to Snapshot for study details. documented as of this encounter (statuses as of 04/14/2023) Immunizations Name Administration Dates Next Due Covid-19 [...] Miscellaneous Notes * Telephone Encounter - KRISTA Preston - 04/14/2023 9:03 AM EDT Images from the original note were not included. Prior authorization for Lumakras (sotorasib) has been denied. Ammy Paredes Director Mobile III [facility] 04/14/2023, 9:11 AM Time Spent on Encounter: < 5 minutes documented in this encounter Plan of Treatment Upcoming Encounters Date Type Specialty Care Team Description 04/14/2023 Pharmacy Pharmacy [facility] [place], [facility] Hem/Onc [address] [place] [address] 04/26/2023 Laboratory Laboratory [facility] [address] [place] [address] 04/26/2023 Hem/Onc Treatment Hematology Oncology [place], Chair 5 Hem Onc [facility] [address] [place] [address] 05/01/2023 Office Visit Family Medicine Gabby Balderas DO [address] [place] [address] 05/10/2023 Office Visit [facility]emat[facility] On[facility] [address] [facility] [address] Health Maintenance Due Date Last Done Comments DXA Scan 02/08/2020 02/07/2017, /06/2014, 02/20/2014, Additional history exists COVID-19 Vaccine (2 [...] Documents on File Type Date Recorded Patient Foreign Exchange Position Clerk Expl anation Advance Directives and Living Will 06/24/2022 ADVANCE DIRECTIVE / LIVING WILL Power of Automotive Salesperson 06/24/2022 POWER OF A TTORNEY Latest Code Status on File Code Status Date Activated Date Inactivated Comments No Code 03/20/2023 1:42 AM 03/21/2023 5:59 PM This order reflects the patients wishes and were consensually agreed upon. Question Answer Comments Discussion of Advance Directives occurred with: Patient Care Teams Foreign Language Professor Relationship Specialty Start Date End Date Gabby Balderas DO [address] [place] [address] PCP - General Family Medicine 03/25/23 documented as of this encounter
--- OUTSIDE RECORDS SUMMARY | 2023-07-05 14:48 | External Medical Summary | Summary of Care ---
Author Name Unknown Organization [facility] Address [address] [place] [address] Phone [phone] Care Team Providers Care Lead Teacher Name Role Phone Gabby Balderas DO Primary Care Provider [phone] Reason for Visit * Reason Onset Date Comments Appointment 04/14/2023 Encounter Details Date Type Department Care Team Description 04/14/2023 Telephone Hematology/Oncology Treatment, [place] [address] [place] [address] Traci Mitchell MD [address] [place] [address] Appointment Allergies No known active allergiesdocumented as [...] Overview: DO NOT DELETE [facility] DETECT Study: Project # [id number], Relief Captain: Khadar Dodd, PhD. SUMMARY: Goal: Establish test [...] contact study staff at ; after hours Relief Captain via the [facility] cat scanner operator . Please contact study team before resolving/deleting from patients problem list. Study phone number: [phone]. Diagnosis changed due to Research Module. Go to Snapshot for study details. Encounter for examination fo r normal comparison and control in clinical research program 11/21/2017 06/30/2022 Overview: DO NOT DELETE - [employer] DETECT Study: Project # [id number], Relief Captain: Mykel Gill, MS, MPH. SUMMARY: Goal: Establish [...] contact study staff at ; after hours Relief Captain via the [facility] cat scanner operator . - Please contact study team before resolving/deleting from patients problem list. Study phone number: [phone]. Diagnosis changed due to Research Module. Go [...] Telephone Encounter - Shavon Garza RN - 04/14/2023 10:34 AM EDT Plan established at office visit is to proceed with oral lumakras. Appts 04/26 for labs/ IV chemo can be cancelled. Called patients daughter who verbalized understanding. Confirmed 05/10/[address] Bray. Scheduling: please cancel 04/26 lab/ treatment appts. Patients daughter is already aware. Thanks! documented in this encounter Plan of Treatment Upcoming Encounters Date Type Specialty Care Team Description 04/14/2023 Pharmacy Pharmacy [facility] [place] Hem[facility]Onc [address] [place] [address] 04/26/2023 Laboratory Laboratory [facility] [address] [facility] [place] [address] 04/26/2023 Hem/Onc Treatment Hematology Oncology [place], Chair 5 Hem Onc [place] [address] [facility] [place] [address] 05/01/2023 Office Visit Family Medicine Gabby Balderas DO [address] [place] [address] 05/10/2023 Office Visit Hematology Oncology Hesham Bray MD [address] [place] [address] Health Maintenance Due Date Last Done Comments [...] Documents on File Type Date Recorded Patient Dish Network Installer Expl anation Advance Directives and Living Will 06/24/2022 ADVANCE DIRECTIVE / LIVING WILL Power of Nurse Supervisor 06/24/2022 POWER OF A TTORNEY Latest Code Status on File Code Status Date Activated Date Inactivated Comments No Code 03/20/2023 1:42 AM 03/21/2023 5:59 PM This order reflects the patients wishes and were consensually agreed upon. Question Answer Comments Discussion of Advance Directives occurred with: Patient Care Teams Lead Teacher Relationship Specialty Start Date End Date Gabby Balderas DO [address] [place] [address] PCP - General Family Medicine 03/25/23 documented as of this encounter
--- OUTSIDE RECORDS SUMMARY | 2023-07-05 14:48 | External Medical Summary | Summary of Care ---
Author Name Unknown Organization [facility] Address [address] [place] [address] Phone [phone] Care Team Providers Care Tank Wagon Driver Name Role Phone Gabby Balderas DO Primary Care Provider [phone] Encounter Details Date Type Department Care Team Description 04/14/2023 Telephone Hematology Oncology [facility] [address] [place] [address] Traci Mitchell MD [address] [place] [address] Allergies No known active allergiesdocumented [...] [facility] [place] DET[facility] Study: Project # [id number], Assembly Line Worker: Khadar Dodd, PhD. SUMMARY: Goal: Establish [...] contact study staff at ; after hours Assembly Line Worker via the [facility] silk winding machine operator . Please contact study team before resolving/deleting from patients problem list. Study phone number: [phone]. Diagnosis changed due to Research Module. Go to Snapshot for study details. Encounter for examination fo r normal comparison and control in clinical research program 11/21/2017 06/30/2022 Overview: DO NOT DELETE - [facility] DETECT Study: Project # [id number], Assembly Line Worker: Mykel Gill, MS, MPH. SUMMARY: Goal: [...] contact study staff at ; after hours Assembly Line Worker via the [facility] silk winding machine operator . - Please contact study team before resolving/deleting from patients problem list. Study phone number: [phone]. Diagnosis changed due to Research Module. Go [...] Lumakras (sotorasib) has been denied. Ammy Paredes Cold Reduction Roller III [facility] 04/14/2023, 9:11 AM Time Spent on Encounter: < 5 minutes documented in this encounter Plan of Treatment Upcoming Encounters Date Type Specialty Care Team Description 04/14/2023 Pharmacy Pharmacy [facility] [place], [facility] Hem/Onc [address] [place] [facility] [address] 04/26/2023 Laboratory Laboratory [facility] [address] [place] [address] 04/26/2023 Hem/Onc Treatment Hematology Oncology [place], Chair 5 Hem Onc [facility] [address] [place] [address] 05/01/2023 Office Visit Family Medicine Gabby Balderas DO [address] [place] [address] 05/10/2023 Office Visit Hematology Oncology Hesham Bray MD [address] [place] [address] Health Maintenance Due Date Last Done Comments [...] Documents on File Type Date Recorded Patient Rides Supervisor Expl anation Advance Directives and Living Will 06/24/2022 ADVANCE DIRECTIVE / LIVING WILL Power of Transport Tank Technician 06/24/2022 POWER OF A TTORNEY Latest Code Status on File Code Status Date Activated Date Inactivated Comments No Code 03/20/2023 1:42 AM 03/21/2023 5:59 PM This order reflects the patients wishes and were consensually agreed upon. Question Answer Comments Discussion of Advance Directives occurred with: Patient Care Teams Tank Wagon Driver Relationship Specialty Start Date End Date Gabby Balderas DO [address] [place] [address] PCP - General Family Medicine 03/25/23 documented as of this encounter
--- OUTSIDE RECORDS SUMMARY | 2023-07-05 14:48 | External Medical Summary | Summary of Care ---
Author Name Unknown Organization [facility] Address [address] [place] [address] Phone [phone] Care Team Providers Care Tire Mold Tester Name Role Phone Gabby Balderas DO Primary Care Provider [phone] Reason for Visit * Reason Comments Medication Management Encounter Details Date Type Department Care Team Description 04/14/2023 Pharmacy Pharmacy Hematology Oncology [facility] [address] [place], [place] [id number] [facility] Hem[facility]Onc [address] [place], [place] [address] Primary cancer of left upper lobe of [...] 11/21/2017 06/01/2020 Overview: DO NOT DELETE [facility] DETECT Study: Project # [id number], Research Computing Specialist: Khadar Dodd, PhD. SUMMARY: Goal: Establish [...] contact study staff at ; after hours Research Computing Specialist via the [facility] electrocardiograph operator . Please contact study team before resolving/deleting from patients problem list. Study phone number: [phone]. Diagnosis changed due to Research Module. Go to Snapshot for study details. Encounter for examination fo r normal comparison and control in clinical research program 11/21/2017 06/30/2022 Overview: DO NOT DELETE - [employer] DETECT Study: Project # [id number], Research Computing Specialist: Mykel Gill, MS, MPH. SUMMARY: Goal: [...] contact study staff at ; after hours Research Computing Specialist via the [facility] electrocardiograph operator . - Please contact study team before resolving/deleting from patients problem list. Study phone number: [phone]. Diagnosis changed due to Research Module. Go [...] this encounter Progress Notes * Kelly Eugene [facility] - 04/14/2023 4:04 PM EDT Addendum 04/14/23; Consent for sotorasib uploaded as of 04/[address] Mitchell, patient will be establishing care with Dr. Bray - appt schedled for 05/[address] Mitchell to confirm to proceed with release of sotorasib despite changing providers MTM will follow-up and release prescription if appropriate Kelly Eugene, PharmD Ambulatory Clinical Pharmacist | Oral Chemotherapy Clinic [facility] 04/14/2023 4:06 PM Time Spent on Encounter: 6 - 10 minutes Encounter Group: Oncology Encounter Interventions Item Category: Oral Chemotherapy Other: sotorasib Problem/Rationale: [place] Plan Review: Clinical Review Pharmacist Intervention(s): Care coordination and Clarification with Provider Magnitude of Intervention: Monitoring with direction (Level 1) * KRISTA Preston - 04/14/2023 1:30 PM EDT MEDICATION THERAPY MANAGEMENT SOTORASIB TREATMENT STATUS NOTE Reba Pritchett [place] [phone] Patient Phone Numbers Communication: Chart review Treatment: Medication: Sotorasib (Lumakras) Indication/Staging/Diagnosis Code: NSCLC w/ mets C34.12 Dose: 960 mg PO daily Administration: +/- food Start Date: TBD Primary Granite Polisher Apprentice/Oncologist: Dr. Mitchell Supportive Care Meds: Olanzapine Ondansetron (to be ordered via beacon plan) Assessment and plan: Per 04/12 telemed visit - consent obtained for carbo/pemetrexed/and pembro ? 03/30 treatment plan uploaded for carbo, pemetrexed, and pembro ? 04/12 treatment plan uploaded for sotorasib ? Need to confirm plans for treatment prior to release to pharmacy Yes/no Date Action Taken [place] plan entered? Yes 04/12/23 Consent completed? Yes 04/14/23 Intro/med rec completed? Precert completed? Yes 04/13/23 Denied - sent TE to [facility] Test claim completed? Financial assistance needed? Physician signature? Yes 04/12/23 Rx released? Education completed? Will follow up in 3 days to check on precert status appeal [facility] will contact patient once med shipped/received to complete medication education o Please refer to initial intake note for detailed review of regimen and patient-specific educationpoints Ammy Paredes Mechanical Shop Laborer III Oral Chemotherapy Clinic 04/14/2023, 9:23 AM Time Spent on Encounter: 6 - 10 minutes documented in this encounter Plan of Treatment Upcoming Encounters Date Type Specialty Care Team Description 04/17/2023 Pharmacy Pharmacy [facility] Hem/Onc [address] [facility] [place] [address] 05/01/2023 Office Visit Family Medicine Gabby Balderas DO [address] [place] [address] 05/10/2023 Office Visit Hematology Oncology Hesham Bray MD [address] [facility] [place] [address] 07/21/2023 Office Visit Gastroenterology Vianey Corrigan CRNP [address] [place] [address] Health Maintenance Due Date Last Done Comments [...] Documents on File Type Date Recorded Patient Forest Fire Fighters Dispatcher Expl anation Advance Directives and Living Will 06/24/2022 ADVANCE DIRECTIVE / LIVING WILL Power of Air Conditioning Sheet Metal Installer 06/24/2022 POWER OF A TTORNEY Latest Code Status on File Code Status Date Activated Date Inactivated Comments No Code 03/20/2023 1:42 AM 03/21/2023 5:59 PM This order reflects the patients wishes and were consensually agreed upon. Question Answer Comments Discussion of Advance Directives occurred with: Patient Care Teams Tire Mold Tester Relationship Specialty Start Date End Date Gabby Balderas DO [address] [place] [address] PCP - General Family Medicine 03/25/23 documented as of this encounter"
--- OUTSIDE RECORDS SUMMARY | 2023-07-05 14:48 | External Medical Summary | Summary of Care ---
Author Name Unknown Organization [facility] Address [address] [place] [address] Phone [phone] Care Team Providers Care High School History Teacher Name Role Phone Gabby Balderas DO Primary Care Provider [phone] Reason for Visit * Reason Onset Date Comments Appointment 04/14/2023 Encounter Details Date Type Department Care Team Description 04/14/2023 Telephone Hematology/Oncology Treatment, [place] [address] [place] [address] Traci Mitchell MD [address] [place] [address] Appointment Allergies No known active [...] DELETE [facility] DETECT Study: Project # [id number], Handhole Machine Operator: Khadar Dodd, PhD. SUMMARY: Goal: Establish [...] contact study staff at ; after hours Handhole Machine Operator via the [facility] gluer machine operator . Please contact study team before resolving/deleting from patients problem list. Study phone number: [phone]. Diagnosis changed due to Research Module. Go to Snapshot for study details. Encounter for examination fo r normal comparison and control in clinical research program 11/21/2017 06/30/2022 Overview: DO NOT DELETE - [employer] DETECT Study: Project # [id number], Handhole Machine Operator: Mykel Gill, MS, MPH. SUMMARY: Goal: [...] contact study staff at ; after hours Handhole Machine Operator via the [facility] gluer machine operator . - Please contact study team before resolving/deleting from patients problem list. Study phone number: [phone]. Diagnosis changed due to Research Module. Go [...] Miscellaneous Notes * Telephone Encounter - KRISTA Ramsey - 04/14/2023 11:18 AM EDT Cancelled appointments as requested. * Telephone Encounter - Shavon Garza RN [...] Specialty Care Team Description 04/14/2023 Pharmacy Pharmacy [facility], [facility] Hem/Onc [address] [facility] [place] [address] 05/01/2023 Office Visit Family Medicine Gabby Balderas DO [address] [place] [address] 05/10/2023 Office Visit Hematology Oncology Hesham Bray MD [address] [place] [address] Health Maintenance Due Date Last Done Comments [...] Documents on File Type Date Recorded Patient Boat Laborer Expl anation Advance Directives and Living Will 06/24/2022 ADVANCE DIRECTIVE / LIVING WILL Power of Tool Machine Set Up Operator 06/24/2022 POWER OF A TTORNEY Latest Code Status on File Code Status Date Activated Date Inactivated Comments No Code 03/20/2023 1:42 AM 03/21/2023 5:59 PM This order reflects the patients wishes and were consensually agreed upon. Question Answer Comments Discussion of Advance Directives occurred with: Patient Care Teams High School History Teacher Relationship Specialty Start Date End Date Gabby Balderas DO [address] [place] [address] PCP - General Family Medicine 03/25/23 documented as of this encounter
--- OUTSIDE RECORDS SUMMARY | 2023-07-05 14:48 | External Medical Summary | Summary of Care ---
Author Name Unknown Organization [facility] Address [address] [place] [address] Phone [phone] Care Team Providers Care Dispensary Technician Name Role Phone Gabby Balderas DO Primary Care Provider [phone] Reason for Visit * Reason Onset Date Comments Advice 04/13/2023 Encounter Details Date Type Department Care Team Description 04/13/2023 Telephone Hematology Oncology [facility] [address] [place] [address] Traci Palumbo MD [address] [place] [address] Advice Allergies No known active allergiesdocumented as of [...] 03/17/2023 Active Simethicone 80 MG Oral Tablet (Bicarsim)Indicati [...] before bedtime. 60 Tablet 2 03/30/2023 Active Sulfamethoxazole-T rimethoprim 800-160 MG Oral Tablet (Bactrim DS) Take 1 Tablet by mouth in the morning and 1 Tablet before bedtime. 10 Tablet 0 04/03/2023 Active OLANZapine 5 MG Oral Tablet (zyPREXA)Indicatio ns: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),Anorexia Take 1 Tablet by mouth at bedtime. 30 Tablet 0 04/13/2023 Active OLANZapine 5 MG Oral Tablet (zyPREXA)Indicatio ns: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),Anorexia Take 1 Tablet by mouth at bedtime. 30 Tablet 0 04/12/2023 04/13/2023 Discontinued (Refill) documented as of this encounter (statuses as of 04/14/2023) Active Problems Problem Noted Date Primary cancer of left upper lobe of toby g 03/30/2023 Cancer Staging:Clinical:Stage STEVE(cT3, cN3, cM1b) - Signed by Traci Palumbo MD on 04/12/2023 Encounter for antineoplastic chemotherap [...] [facility] DETECT Study: Project # [id number], Funeral Car Driver: Khadar Dodd, PhD. SUMMARY: Goal: Establish test [...] contact study staff at ; after hours Funeral Car Driver via the [facility] hospital explosives operator . Please contact study team before resolving/deleting from patients problem list. Study phone number: [phone]. Diagnosis changed due to Research Module. Go to Snapshot for study details. Encounter for examination fo r normal comparison and control in clinical research program 11/21/2017 06/30/2022 Overview: DO NOT DELETE - [facility] DETECT Study: Project # [id number], Funeral Car Driver: Mykel Gill, MS, MPH. SUMMARY: Goal: Establish [...] contact study staff at ; after hours Funeral Car Driver via the [facility] hospital explosives operator . - Please contact study team before resolving/deleting from patients problem list. Study phone number: [phone]. Diagnosis changed due to Research Module. Go [...] Telephone Encounter - Tri Gomez RN - 04/13/2023 12:29 PM EDT Called ,spoke with daughter Gely, reviewed oral chemo plan for Sotorasib and role of MTM clinic andto expect a call from specialty pharm regarding copay and delivery date. Also made aware to expect a call from our MTM pharm who will also be following while on drug. Daughter repeated understanding, said will have labs done on Monday at [facility] (cbc/d,cmp, hepatitis and tsh) and has f/u apt with Dr. Bray 05/10 in [facility]. Daughter asking for med that Dr. palumbo told her about for increasing appetite be sent to [facility] along with Olanzepine which did not escribe. Pt said she cancelled the mediport apt. Please add appetite drug if needed and sign in this encounter. Thank you. Shavon, Julia Khan asked to be called by pharmacy and MTM regarding chemo drug. [phone] Please let daughter know if any changes in labs needed prior to starting chemo. Thank you * Telephone Encounter - KRISTA Coley - 04/13/2023 10:35 AM EDT Patients daughter calling in wondering about rx's that were supposed to be called in for patients weight gain and chemo that were discussed on 04/12/2023. Please advise Nettie (daughter) documented in this encounter Plan of Treatment Upcoming Encounters Date Type Specialty Care Team Description 05/01/2023 Office Visit Family Medicine Gabby Balderas DO [address] [place] [address] 05/10/2023 Office Visit Hematology Oncology Hesham Bray MD [address] [place] [address] 07/21/2023 Office Visit Gastroenterology Vianey Corrigan CRNP [address] [place] [address] Health Maintenance Due Date Last Done Comments [...] of left upper lobe of lung (HCC) Anorexia documented in this encounter Advance Directives Documents on File Type Date Recorded Patient Geochemistry Teacher Expl anation Advance Directives and Living Will 06/24/2022 ADVANCE DIRECTIVE / LIVING WILL Power of Geophysical Engineer 06/24/2022 POWER OF A TTORNEY Latest Code Status on File Code Status Date Activated Date Inactivated Comments No Code 03/20/2023 1:42 AM 03/21/2023 5:59 PM This order reflects the patients wishes and were consensually agreed upon. Question Answer Comments Discussion of Advance Directives occurred with: Patient Care Teams Dispensary Technician Relationship Specialty Start Date End Date Gabby Balderas DO [address] [place] [address] PCP - General Family Medicine 03/25/23 documented as of this encounter
--- OUTSIDE RECORDS SUMMARY | 2023-07-05 14:48 | External Medical Summary | Summary of Care ---
Author Name Unknown Organization [facility] Address [address] [place] [address] Phone [phone] Care Team Providers Care Entry Level Installation Technician Name Role Phone Gabby Balderas DO Primary Care Provider [phone] Reason for Visit * Reason Onset Date Comments Advice 04/13/2023 Encounter Details Date Type Department Care Team Description 04/13/2023 Telephone Hematology Oncology [facility] [address] [place] [address] Traci Palumbo MD [address] [place] [address] Advice Allergies No known active allergiesdocumented as of this encounter (statuses as of 04/13/2023) Medications Medication Sig Dispensed Refills Start Date [...] as of this encounter (statuses as of 04/13/2023) Active Problems Problem Noted Date Primary cancer [...] as of this encounter (statuses as of 04/13/2023) Resolved Problems Problem Noted Date Resolved Date Encounter for examination fo r normal comparison and control in clinical research program 11/21/2017 06/01/2020 Overview: DO NOT DELETE [facility] DETECT Study: Project # [id number], Real Estate Professional: Khadar Dodd, PhD. SUMMARY: Goal: Establish test [...] staff at ; after hours Real Estate Professional via the [facility] hospital typesetting machine operator/tender . Please contact study team before resolving/deleting from patients problem list. Study phone number: [phone]. Diagnosis changed due to Research Module. Go to Snapshot for study details. Encounter for examination fo r normal comparison and control in clinical research program 11/21/2017 06/30/2022 Overview: DO NOT DELETE [facility] Study: Project # [id number], Real Estate Professional: Mykel Gill, MS, MPH. SUMMARY: Goal: Establish [...] staff at ; after hours Real Estate Professional via the [facility] hospital typesetting machine operator/tender . - Please contact study team before resolving/deleting from patients problem list. Study phone number: [phone]. Diagnosis changed due to Research Module. Go to Snapshot for study details. documented as of this encounter (statuses as of 04/13/2023) Immunizations Name Administration Dates Next Due Covid-19 [...] will have labs done on Monday at [facility] (cbc/d,cmp, hepatitis and tsh) and has f/u apt with Dr. Bray 05/10 in [facility] to transfer care since [facility]. Daughter asking for med that Dr. palumbo told her about for increasing appetite be sent to [facility] along with Olanzepine which did not escribe. Pt said she cancelled the mediport apt. Please add appetite drug if needed and sign in this encounter. Thank you. Shavon, Julia Khan asked to be called by pharmacy and [place] regarding chemo drug. [phone] Please let daughter know if any changes [...] Specialty Care Team Description 04/14/2023 Pharmacy [facility] [address] [place] [address] 04/26/2023 Laboratory Laboratory [facility] [address] [place] [address] 04/26/2023 Hem/Onc Treatment Hematology Oncology [place], Chair 5 Hem Onc [facility] [address] [place] [address] 05/01/2023 Office Visit Family Medicine Gabby Balderas, DO [address] [place] [address] 05/10/2023 Office Visit Hematology Oncology Hesham Bray MD [address] [place] [address] Health Maintenance Due Date Last Done Comments [...] Documents on File Type Date Recorded Patient Projection Technician Expl anation Advance Directives and Living Will 06/24/2022 ADVANCE DIRECTIVE / LIVING WILL Power of Paper Products Supervisor 06/24/2022 POWER OF A TTORNEY Latest Code Status on File Code Status Date Activated Date Inactivated Comments No Code 03/20/2023 1:42 AM 03/21/2023 5:59 PM This order reflects the patients wishes and were consensually agreed upon. Question Answer Comments Discussion of Advance Directives occurred with: Patient Care Teams Entry Level Installation Technician Relationship Specialty Start Date End Date Gabby Balderas DO [address] [place] [address] PCP - General Family Medicine 03/25/23 documented as of this encounter
--- OUTSIDE RECORDS SUMMARY | 2023-07-05 14:48 | External Medical Summary | Summary of Care ---
Author Name Unknown Organization [facility] Address [address] [place] [address] Phone [phone] Care Team Providers Care Fire Prevention Officer Name Role Phone Gabby Balderas DO Primary Care Provider [phone] Reason for Visit * Reason Onset Date Comments Advice 04/13/2023 Encounter Details Date Type Department Care Team Description 04/13/2023 Telephone Hematology Oncology [facility] [address] [place] [address] Traci Palumbo MD [address] [place] [address] Advice Allergies No known active [...] program 11/21/2017 06/01/2020 Overview: DO NOT DELETE [facility] DETECT Study: Project # [id number], Manager Ct: Khadar Dodd, PhD. SUMMARY: Goal: Establish test [...] study staff at ; after hours Manager Ct via the [facility] hospital carroting machine operator . Please contact study team before resolving/deleting from patients problem list. Study phone number: [phone]. Diagnosis changed due to Research Module. Go to Snapshot for study details. Encounter for examination fo r normal comparison and control in clinical research program 11/21/2017 06/30/2022 Overview: DO NOT DELETE - [facility] Study: Project # [id number], Manager Ct: Mykel Gill, MS, MPH. SUMMARY: Goal: Establish [...] study staff at ; after hours Manager Ct via the [facility] hospital carroting machine operator . - Please contact study team before resolving/deleting from patients problem list. Study phone number: [phone]. Diagnosis changed due to Research Module. Go [...] will have labs done on Monday at [facility] (cbc/d,cmp, hepatitis and tsh) and has f/u apt with Dr. Bray 05/10 in [facility] to transfer care since closer [facility]. Daughter asking for med that Dr. palumbo told her about for increasing appetite be sent to [facility] along with Olanzepine which did not escribe. Pt said she cancelled the mediport apt. Please add appetite drug if needed and sign in this encounter. Thank you. Shavon, Julia Khan asked to be called by pharmacy and [place] regarding chemo drug. [phone] Please let daughter know if any changes [...] [facility] [address] [place] [address] 04/26/2023 Laboratory Laboratory [facility] Lab [facility] [address] [place] [address] 04/26/2023 Hem/Onc Treatment Hematology Oncology [place], Chair 5 Hem Onc [facility] [address] [place] [address] 05/01/2023 Office Visit Family Medicine Gabby Balderas, DO [address] [place] [address] 05/10/2023 Office Visit Hematology Oncology Hesham Bray MD [address] [place] [address] Health Maintenance Due Date Last Done Comments [...] Documents on File Type Date Recorded Patient Imaging Services Director Expl anation Advance Directives and Living Will 06/24/2022 ADVANCE DIRECTIVE / LIVING WILL Power of Hand Riveter 06/24/2022 POWER OF A TTORNEY Latest Code Status on File Code Status Date Activated Date Inactivated Comments No Code 03/20/2023 1:42 AM 03/21/2023 5:59 PM This order reflects the patients wishes and were consensually agreed upon. Question Answer Comments Discussion of Advance Directives occurred with: Patient Care Teams Fire Prevention Officer Relationship Specialty Start Date End Date Gabby Balderas DO [address] [place] [address] PCP - General Family Medicine 03/25/23 documented as of this encounter
--- OUTSIDE RECORDS SUMMARY | 2023-07-05 14:48 | External Medical Summary | Summary of Care ---
Author Name Unknown Organization [facility] Address [address] [place] [address] Phone [phone] Care Team Providers Care Junior Sales Representative Name Role Phone Gabby Balderas DO Primary Care Provider [phone] Reason for Visit * Reason Onset Date Comments Precert Denied 04/13/2023 Lumakras 120MG t ablets Encounter Details Date Type Department Care Team Description 04/13/2023 Telephone Hematology Oncology [facility] [address] [place] [address] Traci Mitchell MD [address] [place] [address] Precert Denied (Lumakras 120MG tablets) Allergies No known active allergiesdocumented as of [...] mouth at bedtime. 30 Tablet 0 04/12/2023 Active Famotidine 20 MG Oral Tablet (Pepcid) [...] [facility] DETECT Study: Project # [id number], Rock Wool Insulator: Khadar Dodd, PhD. SUMMARY: Goal: Establish test [...] contact study staff at ; after hours Rock Wool Insulator via the [facility] hospital dye boarding machine operator . Please contact study team before resolving/deleting from patients problem list. Study phone number: [phone]. Diagnosis changed due to Research Module. Go to Snapshot for study details. Encounter for examination fo r normal comparison and control in clinical research program 11/21/2017 06/30/2022 Overview: DO NOT DELETE - [employer] DETECT Study: Project # [id number], Rock Wool Insulator: Mykel Gill, MS, MPH. SUMMARY: Goal: Establish [...] contact study staff at ; after hours Rock Wool Insulator via the [facility] hospital dye boarding machine operator . - Please contact study team before resolving/deleting from patients problem list. Study phone number: [phone]. Diagnosis changed due to Research Module. Go [...] * Telephone Encounter - KRISTA Jeff - 04/13/2023 1:03 PM EDT Precert denied, Lumakras 120MG tablets. Denial letter scanned. documented in this encounter Plan of Treatment Upcoming Encounters Date Type Specialty Care Team Description 04/14/2023 Pharmacy Pharmacy [facility] [address] [facility] [address] 04/26/2023 Laboratory Laboratory [facility] [address] 04/26/2023 Hem/Onc Treatment Hematology Oncology [place], Chair 5 Hem Onc [facility] [address] [facility] [address] 05/01/2023 Office Visit Family Medicine Gabby Balderas DO [address] [place] [address] 05/10/2023 Office Visit Hematology Oncology [facility] [address] [facility] [address] Health Maintenance Due Date Last Done Comments [...] Documents on File Type Date Recorded Patient Solar Development Engineer Expl anation Advance Directives and Living Will 06/24/2022 ADVANCE DIRECTIVE / LIVING WILL Power of Earth Mover 06/24/2022 POWER OF A TTORNEY Latest Code Status on File Code Status Date Activated Date Inactivated Comments No Code 03/20/2023 1:42 AM 03/21/2023 5:59 PM This order reflects the patients wishes and were consensually agreed upon. Question Answer Comments Discussion of Advance Directives occurred with: Patient Care Teams Junior Sales Representative Relationship Specialty Start Date End Date Gabby Balderas DO [address] [place] [address] PCP - General Family Medicine 03/25/23 documented as of this encounter
--- OUTSIDE RECORDS SUMMARY | 2023-07-05 14:48 | External Medical Summary | Summary of Care ---
Author Name Unknown Organization [facility] Address [address] [place] [address] Phone [phone] Care Team Providers Care Bottom Saw Operator Name Role Phone Gabby Balderas DO Primary Care Provider [phone] Reason for Visit * Reason Onset Date Comments Advice 04/13/2023 Encounter Details Date Type Department Care Team Description 04/13/2023 Telephone Hematology Oncology [facility] [address] [place] [address] Traci Palumbo MD [address] [place] [address] Advice Allergies No known active [...] DELETE [facility] DETECT Study: Project # [id number], Ladies Underwear Operator: Khadar Dodd, PhD. SUMMARY: Goal: Establish [...] contact study staff at ; after hours Ladies Underwear Operator via the [facility] hospital class 1 owner operator . Please contact study team before resolving/deleting from patients problem list. Study phone number: [phone]. Diagnosis changed due to Research Module. Go to Snapshot for study details. Encounter for examination fo r normal comparison and control in clinical research program 11/21/2017 06/30/2022 Overview: DO NOT DELETE [facility] Study: Project # [id number], Ladies Underwear Operator: Mykel Gill, MS, MPH. SUMMARY: Goal: [...] contact study staff at ; after hours Ladies Underwear Operator via the [facility] hospital class 1 owner operator . - Please contact study team before resolving/deleting from patients problem list. Study phone number: [phone]. Diagnosis changed due to Research Module. Go [...] will have labs done on Monday at [facility] (cbc/d,cmp, hepatitis and tsh) and has f/u apt with Dr. Bray 05/10 in [facility] to transfer care since [facility]. Daughter asking for med that Dr. palumbo told her about for increasing appetite be sent to [facility] along with Olanzepine which did not escribe. Pt said she cancelled the mediport apt. Please add appetite drug if needed and sign in this encounter. Thank you. Shavon, Julia Khan asked to be called by pharmacy and [place] regarding chemo drug. [phone] Please let daughter know if any changes [...] [facility] [address] [place] [address] 04/26/2023 Laboratory Laboratory [facility] [address] [place] [address] 04/26/2023 Hem/Onc Treatment Hematology Oncology [place], Chair 5 Hem Onc [facility] [address] [place] [address] 05/01/2023 Office Visit Family Medicine Gabby Balderas, DO [address] [place] [address] 05/10/2023 Office Visit Hematology Oncology Hesham Bray MD [address] [place] [address] Health Maintenance Due Date Last Done Comments [...] Documents on File Type Date Recorded Patient Purchasing Administrative Assistant Expl anation Advance Directives and Living Will 06/24/2022 ADVANCE DIRECTIVE / LIVING WILL Power of Astronomy Teacher 06/24/2022 POWER OF A TTORNEY Latest Code Status on File Code Status Date Activated Date Inactivated Comments No Code 03/20/2023 1:42 AM 03/21/2023 5:59 PM This order reflects the patients wishes and were consensually agreed upon. Question Answer Comments Discussion of Advance Directives occurred with: Patient Care Teams Bottom Saw Operator Relationship Specialty Start Date End Date Gabby Balderas DO [address] [place] [address] PCP - General Family Medicine 03/25/23 documented as of this encounter
--- OUTSIDE RECORDS SUMMARY | 2023-07-05 14:48 | External Medical Summary | Summary of Care ---
Author Name Unknown Organization [facility] Address [address] [place] [address] Phone [phone] Care Team Providers Care Utility System Repairer Name Role Phone Gabby Balderas DO Primary Care Provider [phone] Reason for Visit * Reason Onset Date Comments Follow Up 04/10/2023 Encounter Details Date Type Department Care Team Description 04/10/2023 Telephone Hematology Oncology [facility] [address] [place] [address] Traci Palumbo MD [address] [place] [address] Follow Up Allergies No known active allergiesdocumented as of [...] before bedtime. 10 Tablet 0 04/03/2023 Active documented as of this encounter (statuses [...] [facility] DETECT Study: Project # [id number], Feeder Switchboard Operator: Khadar Dodd, PhD. SUMMARY: Goal: Establish [...] contact study staff at ; after hours Feeder Switchboard Operator via the [facility] hospital media operator . Please contact study team before resolving/deleting from patients problem list. Study phone number: [phone]. Diagnosis changed due to Research Module. Go to Snapshot for study details. Encounter for examination fo r normal comparison and control in clinical research program 11/21/2017 06/30/2022 Overview: DO NOT DELETE - [facility] DETECT Study: Project # [id number], Feeder Switchboard Operator: Mykel Gill, MS, MPH. SUMMARY: Goal: [...] contact study staff at ; after hours Feeder Switchboard Operator via the [facility] hospital media operator . - Please contact study team before resolving/deleting from patients problem list. Study phone number: [phone]. Diagnosis changed due to Research Module. Go [...] Telephone Encounter - Tri Gomez RN - 04/10/2023 12:52 PM EDT Called, left message calling to find out why she cancelled apt 04/12 which was for labs, B12 and seeDrGustavo palumbo for consent. This is needed in order to start txt in [facility] as requested. Asked her to please give a call back and have put back on 04/12 as previously scheduled. Paz agreed to put back on schedule. Also received message from [facility] exercise teacher Shavon Lacy about pt needing consent etc which was cancelled here for 04/12 and they have no provider to schedule with til C2. documented in this encounter Plan of Treatment Upcoming Encounters Date Type Specialty Care Team Description 04/14/2023 Pharmacy [facility] [address] [place] [address] 05/01/2023 Office Visit Family Medicine Gabby Balderas DO [address] [place] [address] 05/10/2023 Office Visit Hematology Oncology Hesham Bray MD [address] [place] [address] Health Maintenance Due Date Last Done Comments [...] Documents on File Type Date Recorded Patient Receiving Worker Expl anation Advance Directives and Living Will 06/24/2022 ADVANCE DIRECTIVE / LIVING WILL Power of Administrative Manager 06/24/2022 POWER OF A TTORNEY Latest Code Status on File Code Status Date Activated Date Inactivated Comments No Code 03/20/2023 1:42 AM 03/21/2023 5:59 PM This order reflects the patients wishes and were consensually agreed upon. Question Answer Comments Discussion of Advance Directives occurred with: Patient Care Teams Utility System Repairer Relationship Specialty Start Date End Date Gabby Balderas DO [address] [place] [address] PCP - General Family Medicine 03/25/23 documented as of this encounter
--- OUTSIDE RECORDS SUMMARY | 2023-07-05 14:49 | External Medical Summary | Summary of Care ---
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 30 Tablet 0 04/12/2023 Active documented as of this encounter (statuses as of 04/12/2023) Active Problems Problem Noted Date Primary cancer [...] as of this encounter (statuses as of 04/12/2023) Resolved Problems Problem Noted Date Resolved Date Encounter for examination fo r normal comparison and control in clinical research program 11/21/2017 06/01/2020 Overview: DO NOT DELETE [facility] DETECT Study: Project # [id number], Director Economic: Khadar Dodd, PhD. SUMMARY: Goal: Establish test [...] contact study staff at ; after hours Director Economic via the [facility] basting machine operator . Please contact study team before resolving/deleting from patients problem list. Study phone number: [phone]. Diagnosis changed due to Research Module. Go to Snapshot for study details. Encounter for examination fo r normal comparison and control in clinical research program 11/21/2017 06/30/2022 Overview: DO NOT DELETE - [facility] Study: Project # [id number], Director Economic: Mykel Gill, MS, MPH. SUMMARY: Goal: Establish [...] contact study staff at ; after hours Director Economic via the [facility] basting machine operator . - Please contact study team before resolving/deleting from patients problem list. Study phone number: [phone]. Diagnosis changed due to Research Module. Go to Snapshot for study details. documented as of this encounter (statuses as of 04/12/2023) Immunizations Name Administration Dates Next Due Covid-19 [...] as of this encounter Progress Notes * Traci Mitchell MD - 04/12/2023 11:24 AM EDT Patient location: HOME. I was in a hospital or clinic location. After connecting through [employer],patient was verified with two unique identifiers. Patient (or authorized legal employment program representative) was then informed that this was a Telemedicine visit and being conducted confidentially over secure lines. Methods to assure confidentiality were taken. Patient acknowledged consent and understanding of pr ivacy and security of the Telemedicine visit. The patient agreed to participate. 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 No NVD, or constipation. No new Cover Assembler/sob. no bleeding. She is still c/o indigestion. Severe, keeps her up at night. REVIEW OF SYSTEMS: pertinent positives/negatives as noted above. Past Medical History: Diagnosis Date Diffuse cystic [...] 1 Tablet by mouth in the morning. Omeprazole 20 MG Oral Capsule Delayed Release (PriLOSEC) Take 1 Capsule by mouth in the morning. 1 hour before the first meal of the day. 30 Capsule 1 Vitron-C 65-125 MG Oral Tablet (Iron-Vitamin C 65-125 mg per tab) Take 1 Tablet by mouth in themorning and 1 Tablet before bedtime. For iron supplement, generic, take with food. 60 Tablet 5 Simethicone 80 MG Oral Tablet (Bicarsim) Take 1 Tablet by mouth every 6 hours as needed for Gas. 30 Tablet 0 Apixaban 5 MG Oral Tablet (Eliquis) Take 1 Tablet by mouth in the morning and 1 Tablet before bedtime. 60 Tablet 2 Sulfamethoxazole-Trimethoprim 800-160 MG Oral Tablet (Bactrim DS) Take 1 Tablet by mouth in themorning and 1 Tablet before bedtime. 10 Tablet 0 Famotidine 20 MG Oral Tablet (Pepcid) Take 1 Tablet by mouth at bedtime as needed for Other (heartburn/reflux symptoms). 90 Tablet 1 No current facility-administered medications for this visit. Social History Tobacco Use Smoking status: Former Packs/day: 0.75 Years: 52.00 Pack years: 39.00 Types: Cigarettes Start date: 1970 Smokeless tobacco: Never Vaping Use Vaping Use: Never used Substance Use Topics Alcohol use: Yes Comment: socially mixed drink whiskey club soda, Drug use: Never Review of patient's allergies indicates: No Known Allergies PHYSICAL EXAMINATION: Limited Exam due to remote visit There were no vitals taken for this visit. Vitals reviewed as available GEN: Well nourished,WF, sitting up in chair in NAD Alert, Oriented x3, face symm. speech fluent, moving UE spontaneously. Pscyh: appropriate mood and affect LABS; Reviewed in EMR Results for orders placed or performed during the hospital encounter of 03/20/23 CBC Result Value Ref Range WBC 11.43 (H) 4.00 - 10.80 K/uL RBC 3.51 3.85 - 5.15 M/uL HGB 9.2 (L) 12.0 - 15.3 g/dL HCT 28.3 (L) 36.0 - 45.2 % MCV 80.6 81.5 - 97.5 fL MCH 26.2 27.0 - 34.0 pg MCHC 32.5 32.0 - 36.0 g/dL RDW 13.6 11.5 - 15.5 % PLT 522 (H) 140 - 400 K/uL MPV 8.8 6.6 - 11.1 fL nRBCs 0 <=0 /100 WBCs Results for orders placed or performed during the hospital encounter of 03/19/23 COMPREHENSIVE METABOLIC PANEL Result Value Ref Range BUN 16 6 - 20 mg/dL Creatinine 0.9 0.5 - 1.0 mg/dL Estimated Glomerular Filtration Rate 67 >=60 mL/min Sodium 126 (L) 135 - 146 mmol/L Potassium 4.5 3.5 - 5.1 mmol/L Chloride 92 (L) 98 - 107 mmol/L CO2 17 (L) 22 - 32 mmol/L Anion Gap 17 (H) 7 - 15 mmol/L Glucose 146 (H) 70 - 120 mg/dL Albumin 2.6 (L) 3.8 - 5.0 g/dL AST 24 10 - 35 U/L Alkaline Phosphatase 98 35 - 130 U/L Bilirubin, Total 0.5 <=1.2 mg/dL Calcium 8.9 8.4 - 10.2 mg/dL Protein 8.2 6.0 - 8.3 g/dL ALT 20 10 - 35 U/L PATHOLOGY/IMAGING AND PROCEDURES: Reviewed in EMR Reviewed Pet/CT and MRI brain personally, results d/w pt and her family ASSESSMENT and PLAN: Reba Delaney is a 78 year old female with 1. Pulmonary embolism b/l (February 2023) 2. Afib 3. Anticoag with ELiquis 4. Former smoker, 40 pack yrs, quit February 2023 5. 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 PDL1 is 10%. Stage 4 lung cancer (cM1b atleast) based on mets to non regional LNs and likely adrenal met 6. ECOG PS 1 Reviewed current findings, diag and prognosis We discussed role of chemoimmunorx, pending NGS. Consent obtained for Carbo/pemetrexed/pemrbolizumab Will refer to GI for indigestion Reviewed role of pallliative care, they will discuss with [facility] [place] For now, start olanzapine daily 5mg, can increase as needed post review Completed abx, still with dysuria, culture results NA. Will get Urine culture C/w Eliquis; w/f bleeding, counseled Encouraged to keep appt with pulm/cards as scheduled ADDENDUM: I obtained results of the NGS report, shows TMB low, MSI stable, KRAS G12C mutations+ [id number] and other mutations I tried to call the pt on the numbers in the chart including home phone and daughter's cell number. Pt would benefit from sotorasib first line vs chemo immunorx. New oral care plan entered. I will attempt to call again to update to get consent etc I spent over 45mins on the date of service in the care of this patient including preparation, delivery and documentation of the care provided. Excluding any time spent in the performance of separately billed services. Traci Mitchell MD Hematology Oncology [address] [place] [address] documented in this encounter Plan of Treatment Upcoming Encounters Date Type Specialty Care Team Description 04/19/2023 Hospital Encounter [facility] [address] [facility] [place] [address] 04/19/2023 Surgery Surgery Ortega Williamson, DO [address] [facility] [place] [address] INSERT TUNNELED CENTRAL VENOUS ACCESS WITH SUBQ PORT 04/26/2023 Laboratory Laboratory [place], Lab Scenery [address] [place] [address] 04/26/2023 Hem/Onc Treatment Hematology Oncology [place], Chair 5 Hem Onc Sc[address] [facility] [address] 05/01/2023 Office Visit Family Medicine Gabby Balderas DO [address] [place] [address] 05/10/2023 Office Visit Hematology Oncology Hesham Bray MD [address] [place] [address] Scheduled Orders Name Type Priority Associated Diagnoses Orde r Schedule CULTURE, URINE, QUANTITATIVE Lab STAT 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) Dysuria 1 Occurrences starting 04/12/2023 until 04/12/2024 Scheduled Procedures Name Priority Associated Diagnoses Date/Ti me INSERT TUNNELED CENTRAL VENOUS ACCESS WITH SUBQ PORT 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) 04/19/2023 12:00 PM EDT Scheduled Referrals Name Type Priority Associated Diagnoses Order Schedule GASTROENTEROLOGY REFERRAL OP Referral Within 3 days (urgent) 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) Ordered: 04/12/2023 Health Maintenance Due Date Last Done Comments [...] left upper lobe of lung (HCC)- Primary Anorexia Dysuria 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 Question Answer Comments Discussion of Advance Directives occurred with: Patient Care Teams Manager Rehab Relationship Specialty Start Date End Date Gabby Balderas DO [address] [place] [address] PCP - General Family Medicine 03/25/23 documented as of this encounter
--- OUTSIDE RECORDS SUMMARY | 2023-07-05 14:49 | External Medical Summary | Summary of Care ---
Author Name Unknown Organization [facility] Address [address] [place] [address] Phone [phone] Care Team Providers Care Funding Coordinator Name Role Phone Gabby Balderas DO Primary Care Provider [phone] Reason for Visit * Reason Onset Date Comments Encounter Created in Error 04/11/2023 Encounter Details Date Type Department Care Team Description 04/11/2023 Telephone Hematology Oncology [facility] [address] [place] [address] Karo Ureña MD [address] [place] [address] Encounter Created in Error Allergies No known active allergiesdocumented as of this encounter (statuses as of 04/11/2023) Medications Medication Sig Dispensed Refills Start Date [...] x symptoms). 90 Tablet 1 04/10/2023 Active documented as of this encounter (statuses as of 04/11/2023) Active Problems Problem Noted Date Primary cancer of left upper lobe of toby g 03/30/2023 Encounter for antineoplastic chemotherap y 03/30/2023 Chemotherapy [...] as of this encounter (statuses as of 04/11/2023) Resolved Problems Problem Noted Date Resolved Date Encounter for examination fo r normal comparison and control in clinical research program 11/21/2017 06/01/2020 Overview: DO NOT DELETE [facility] DETECT Study: Project # [id number], Skating Rink Ice Maker: Khadar Dodd, PhD. SUMMARY: Goal: Establish test [...] contact study staff at ; after hours Skating Rink Ice Maker via the [facility] hydraulic corrugating machine operator . Please contact study team before resolving/deleting from patients problem list. Study phone number: [phone]. Diagnosis changed due to Research Module. Go to Snapshot for study details. Encounter for examination fo r normal comparison and control in clinical research program 11/21/2017 06/30/2022 Overview: DO NOT DELETE - [facility] DETECT Study: Project # [id number], Skating Rink Ice Maker: Mykel Gill, MS, MPH. SUMMARY: Goal: Establish [...] contact study staff at ; after hours Skating Rink Ice Maker via the [facility] hospital hydraulic corrugating machine operator . - Please contact study team before resolving/deleting from patients problem list. Study phone number: [phone]. Diagnosis changed due to Research Module. Go to Snapshot for study details. documented as of this encounter (statuses as of 04/11/2023) Immunizations Name Administration Dates Next Due Covid-19 [...] Encounters Date Type Specialty Care Team Description 04/12/2023 Telemedicine Hematology Oncology Traci Mitchell MD [address] [place] [facility] [place] [address] 04/19/2023 Hospital Encounter Surgery [facility]tega[facility] [address] [facility] [place] [address] 04/19/2023 Surgery [facility] [address] [facility] [place] [address] INSERT TUNNELED CENTRAL VENOUS ACCESS WITH SUBQ PORT 04/26/2023 Laboratory Laboratory Moriah Cabrera [facility] [address] [place] [address] 04/26/2023 Hem/Onc Treatment Hematology Oncology [place], Chair 5 Hem Onc [facility] [address] [place] [address] 05/01/2023 Office Visit Family Medicine Gabby Balderas, DO [address] [place] [address] 05/10/2023 Office Visit Hematology Oncology Hesham Bray MD [address] [place] [address] Scheduled Procedures Name Priority Associated Diagnoses Date/Ti me INSERT TUNNELED CENTRAL VENOUS ACCESS WITH SUBQ PORT 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 Question Answer Comments Discussion of Advance Directives occurred with: Patient Care Teams Funding Coordinator Relationship Specialty Start Date End Date Gabby Balderas DO [address] [place] [address] PCP - General Family Medicine 03/25/23 documented as of this encounter
--- OUTSIDE RECORDS SUMMARY | 2023-07-05 14:49 | External Medical Summary | Summary of Care ---
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) Procedures [facility] Traci Mitchell MD [address] [place] [address] Referral ID Status Reason Start Date Expiration Date V isits Requested Visits Authorized [id number] Authorized 04/06/2023 999 999 Reason for Visit * Reason Comments NEW PATIENT * Evaluate & Treat - Unlimited Visits (Within 3 days (urgent)) - Authorized Specialty Diagnoses / Procedures Referred By Lubna guidry Referred To Contact Hematology/Oncology / Hematology Oncology Diagnoses Abnormal chest x-ray Anemia, unspecified type Abnormal CT of the chest Mass of lung Anni Carr CRNP [address] [place] [address] Referral ID Status Reason Start Date Expiration Date Visits Requested Visits Authorized [id number] Authorized Specialty Services Required 03/12/2023 999 999 Encounter Details Date Type Department Care Team Description 03/30/2023 Office Visit Hematology Oncology [facility] [address] [place] [address] Traci Mitchell MD [address] [place] [address] 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)*; Dysuria; Dyspepsia; Bilateral pulmonary embolism (HCC); Encounter for screening for other viral diseases Allergies No known active allergiesdocumented as of this encounter (statuses as of 04/04/2023) Medications Medication Sig Dispensed Refills Start Date [...] with food. 60 Tablet 5 03/17/2023 Active Famotidine 20 MG Oral Tablet (Pepcid) Take 1 Tablet by mouth daily at bedtime as needed for heartburn/ref lux symptoms. 30 Tablet 0 03/21/2023 04/20/2023 Active Simethicone 80 MG Oral Tablet (Bicarsim)Indicati [...] before bedtime. 60 Tablet 2 03/30/2023 Active Apixaban 5 MG Oral Tablet (Eliquis) Take 2 Tablets (10 mg) by mouth 2 times a day for 7 days, THEN take 1 tablet (5 mg) 2 times a day for 21 days. 70 Tablet 0 03/21/2023 03/30/2023 Discontinued (Refill) Hospital, Clinic, or Other Facility Administered Medication Ordered Dose Route Frequency Start Date End Date Status Simethicone (Mylicon) chew tab 80 mgIndications:Dysp epsia 80 mg OR TID(AM/NOON/HS) 03/30/2023 3 Discontinued documented as of this encounter (statuses as of 04/04/2023) Active Problems Problem Noted Date Primary cancer [...] as of this encounter (statuses as of 04/04/2023) Resolved Problems Problem Noted Date Resolved Date Encounter for examination fo r normal comparison and control in clinical research program 11/21/2017 06/01/2020 Overview: DO NOT DELETE [facility] DETECT Study: Project # [id number], Multimedia Specialist: Khadar Dodd, PhD. SUMMARY: Goal: Establish [...] contact study staff at ; after hours Multimedia Specialist via the [facility] flatbed press operator . Please contact study team before resolving/deleting from patients problem list. Study phone number: [phone]. Diagnosis changed due to Research Module. Go to Snapshot for study details. Encounter for examination fo r normal comparison and control in clinical research program 11/21/2017 06/30/2022 Overview: DO NOT DELETE - [facility] Study: Project # [id number], Multimedia Specialist: Mykel Gill, MS, MPH. SUMMARY: Goal: [...] contact study staff at ; after hours Multimedia Specialist via the [facility] hospital flatbed press operator . - Please contact study team before resolving/deleting from patients problem list. Study phone number: [phone]. Diagnosis changed due to Research Module. Go to Snapshot for study details. documented as of this encounter (statuses as of 04/04/2023) Immunizations Name Administration Dates Next Due Covid-19 [...] Sign Reading Time Taken Comments Blood Pressure 110/56 03/30/2023 2:12 PM EDT Pulse 83 03/30/2023 2:12 PM EDT Temperature 36.5 C (97.7 F) 03/30/2023 2:12 PM ED T Respiratory Rate 16 03/30/2023 2:12 PM EDT Oxygen Saturation 100% 03/30/2023 2:12 PM EDT Inhaled Oxygen Concentration - - Weight 47.1 kg (103 lb 12.8 oz) 03/30/2023 2:12 PM EDT Height 160 cm (5' 2.99") 03/30/2023 2:12 PM EDT Body Mass Index 18.39 03/30/2023 2:12 PM EDT documented in this encounter Functional Status [...] Progress Notes * Traci Mitchell MD - 03/30/2023 2:43 PM EDT MEDICAL ONCOLOGY CONSULT NOTE Date Of Service: 03/30/2023 Patient Name: Reba Delaney Referring provider: DAVID Lind Reason for visit: Non small cell lung cancer HPI: Reba Delaney is a 78 year old female with pmhx of b/l PE(February 2023), Afib, Smoked~ 40 pack yrs, who presented with Gen Weakness her PCP was working this up and she was found to have DEBBIE lung mass.She then underwent diagnostic bronchoscopy with biopsy. Path showed NSCLC, tumor cells are positive for CK7, while negative for TTF1 and p40. There is weak/patchy synaptophysin staining. 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 She then presented to [facility], she was found to have new onset atrial fibrillation in the setting of found subsegmental bilateral pulmonary embolism, increasing pleural and pericardial effusions. CT PE also significant for left apical mass which is markedly concerning for malignancy. There is diffuse lymphadenopathy within chest concerning for metastasis. She was transitioned to Eliquis around the time of her discharge. She denies any bleeding issues, She reportedly quit smoking about 2-3 weeks ago. She had Pet/ct yesterday and has MRI brain coming upsoon. She is here with her family, is considering moving with daughter and getting rx there. She gets tired easily although feels like she is recovering slowly. She has some indigestion and " gas" . No CP/Abd Pain. No bleeding. No fevers/chills. She had some increased Urinary frequency, no cloudy urine, no burning pain etc. ROS: pertinent positives/negatives as noted above. PMH/SxHx: Past Medical History: Diagnosis Date Diffuse cystic mastopathy Diffuse cystic mastopathy Nonallopathic lesion of lumbar region 01/2006 Nonallopathic lesion of thoracic region 01/2006 Osteoarthrosis, pelvic region and thigh [address] Eller Osteoporosis update DEXA Swelling, mass, or lump in head and neck 10/2009 benign Tobacco use disorder Past Surgical History: Procedure Laterality Date BIOPSY OF BREAST, OPEN fibrocystic breast dz right ? BREAST LESION,OTHER,EXCISION Breast Excision, benign tumor/cyst fibrocystic breast dz. BRONCHOSCOPY, DIAGNOSTIC N/A 03/20/2023 BRONCHOSCOPY DIAGNOSTIC WITH OR WITHOUT WASHING performed by Dhruv Graham MD at ENDOSCOPY [facility] BX LYMPH NODE-SUPERFIC 10/2009 lymph node removal L neck PATH; BENIGN Otolaryngology [facility] Dr Rajput DENTAL SURGERY PROCEDURE NEC 2007 all teeth extracted REMOVAL OF PAROTID GLAND/TUMOR Left 11/17/2022 EXCISION PAROTID TOTAL WITH DISSECTION FACIAL NERVE performed by Sharon Miller MD at OR [facility] TOTAL HIP REPLACEMENT & PROSTHESIS 2005 Dr Eller Fhx : Family History Problem Relation Age of Onset Cancer Grandmother (Paternal) breast ca. dec'd Breast Cancer Grandmother (Paternal) Stroke Mother 86 CAD Heart Disorder Father 76 CAD dec'd Cancer Sister Bilateral Mastectomy Social History: Social History Tobacco Use Smoking status: Former Packs/day: 0.75 Years: 52.00 Pack years: 39.00 Types: Cigarettes Start date: 1970 Smokeless tobacco: Never Vaping Use Vaping Use: Never used Substance Use Topics Alcohol use: Yes Comment: socially mixed drink whiskey club soda, Drug use: Never ALLERGIES/ADR: Patient has no known allergies. MEDICATIONS: Current medication list reviewed. PHYSICAL EXAM: BP 110/56 | Pulse 83 | Temp 36.5 C (97.7 F) (Tympanic) | Resp 16 | Ht 1.6 m (5' 2.99") | Wt 47.1 kg (103 lb 12.8 oz) | SpO2 100% | BMI 18.39 kg/m | BSA 1.45 m Vitals Reviewed as documented in the chart GEN: AAOx3, sitting up comfortably in NAD HEENT: NCAT, No pallor, conjunctival injection, sclerae anicteric. No thrush/erythema/leukoplakia. Neck supple, no JVD, thryomegaly Chest: non labored breathing, symm expansion Extr: warm , well perfused, no CC. Edema+ Neuro: AAOX3 ;Psych: appropriate mood and affect LAB REVIEW Results for orders placed or performed during the hospital encounter of 03/29/23 GLUCOSE METER, POINT OF CARE Result Value Ref Range Glucose Meter 87 70 - 120 mg/dL PATH REVIEW/RAD REVIEW: reviewed in EMR Pet/CT 03/29/23: Read pending, images reviewed personally and d/w pt and family Final Diagnosis A. Lymph Node, 4R, Right [...] within a lymphoid background with bronchial contamination. tumor cells are positive for CK7, while negative for TTF1 and p40. There is weak/patchy synaptophysin staining. 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 An irregularly-shaped masslike left upper lobe consolidation involving the left apical pleura measures approximately 4.5 x 4.1 cm, indeterminate but highly suspicious for neoplasm. 2. A masslike left perihilar consolidation measures 3.6 x 2.8 cm, indeterminate but highly suspicious for neoplasm. 3. A few smaller satellite nodules are present in the left upper lobe. 4. Additionally there are a few scattered sub 6 millimeter pulmonary nodules elsewhere in the lungs, indeterminate. 5. Multiple enlarged mediastinal, left retropectoral, and left axillary lymph node, suspicious for geoff metastases. 6. A prominent but non-enlarged left supraclavicular lymph node measures 7 millimeters in short axis, indeterminate. 7. Small left pleural effusion. 8. Coronary artery calcifications. IMPRESSION AND PLAN : Reba Delaney is a 78 year old female with 1. Pulmonary embolism b/l (February 2023) 2. Afib 3. Anticoag with ELiquis 4. Former smoker, 40 pack yrs, quit February 2023 5. 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 PDL1 is 10%. 6. ECOG PS 1 Reviewed current findings, diag and prognosis, need for further testing I reviewed imaging personally,showed and d/w family Molecular profiling, NGS requested and pending Will get MRI brain--has appt We reviewed role of systemic therapy, discussed role of carbo/pem/pem given the NSCLC Review imaging in lung tumor conference Get UA and reflex to Cx as needed, will rx with abx if abN and s/s+ Reviewed supportive care and plan of palliative care C/w Eliquis; w/f bleeding, counseled Encouraged to keep appt with pulm/cards as scheduled given recent 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) (Primary) - Simethicone 80 MG Oral Tablet (Bicarsim); Take 1 Tablet by mouth every 6 hours as needed for Gas. - Apixaban 5 MG Oral Tablet (Eliquis); Take 1 Tablet by mouth in the morning and 1 Tablet before bedtime. - HEPATITIS B SURFACE ANTIBODY; Standing - HEPATITIS B SURFACE ANTIGEN; Standing - HEPATITIS B CORE ANTIBODIES IGG AND IGM; Standing - HEPATITIS C ANTIBODY SCREEN WITH PROGRESSION TO HEPATITIS C RNA QUANTITATIVE; Standing - CBC WITH WBC DIFFERENTIAL; Standing - COMPREHENSIVE METABOLIC PANEL; Standing Dysuria - URINALYSIS, REFLEX TO MICROSCOPIC; Standing - CULTURE, URINE, QUANTITATIVE; Standing Dyspepsia Bilateral pulmonary embolism (HCC) - HEPATITIS B SURFACE ANTIBODY; Standing - HEPATITIS B SURFACE ANTIGEN; Standing - HEPATITIS B CORE ANTIBODIES IGG AND IGM; Standing - HEPATITIS C ANTIBODY SCREEN WITH PROGRESSION TO HEPATITIS C RNA QUANTITATIVE; Standing - CBC WITH WBC DIFFERENTIAL; Standing - COMPREHENSIVE METABOLIC PANEL; Standing Encounter for screening for other viral diseases - HEPATITIS B SURFACE ANTIGEN; Standing - HEPATITIS B CORE ANTIBODIES IGG AND IGM; Standing Other orders - IR VENOUS ACCESS MEDIPORT; Future; Expected date: 04/06/2023 - NEW ONCOLOGY TREATMENT PLAN Check-out note: F/u with Me in 7-10days with Labs: CBC, CMP TSH Hep Panel to be done at pt preferred location within 2 days of appt Infusion appt at [place] in 2 weeks Mediport to be scheduled Traci Mitchell MD 03/30/2023 2:43 PM Hematology Oncology [facility] [place] [address] [facility] [address] documented in this encounter Nursing Notes * JULIA Darby - 03/30/2023 2:12 PM EDT Patient was instructed to not get up on the exam table/exam chair until directed and assisted by their provider; patient is to remain seated in the chair/ wheelchair/ exam table/ exam chair for fall prevention and safety reasons. Patient is aware to have assistance to step down off exam table/exam chair with personnel. Patient voiced full comprehension of instructions. Room 18 documented in this encounter Plan of Treatment Upcoming Encounters Date Type Specialty Care Team Description 04/12/2023 Laboratory Laboratory [facility] [address] [place] [address] 04/12/2023 Office Visit Hematology Oncology Traci Mitchell MD [address] [place] [address] 04/12/2023 Immunization/Inject ion Hematology Oncology Nurse, Med [address] [place] [address] 04/19/2023 Hospital Encounter Surgery Ortega Williamson DO [address] [place] [address] 04/19/2023 Surgery Surgery Ortega Williamson DO [address] [place] [address] INSERT TUNNELED CENTRAL VENOUS ACCESS WITH SUBQ PORT 05/01/2023 Office Visit Family Medicine Gabby Balderas, [address] [place] [address] Scheduled Orders Name Type Priority Associated Diagnoses Order Schedule CULTURE, URINE, QUANTITATIVE Lab Routine Dysuria 1 Occurrences starting 03/30/2023 until 03/30/2024 IR VENOUS ACCESS MEDIPORT Medical Imaging Routine Expected: 04/06/2023, Expires: 04/29/2024 HEPATITIS B SURFACE ANTIBODY Lab STAT 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) Bilateral pulmonary embolism (HCC) 1 Occurrences starting 03/30/2023 until 03/30/2024 HEPATITIS B SURFACE ANTIGEN Lab STAT 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) Bilateral pulmonary embolism (HCC) Encounter for screening for other viral diseases 1 Occurrences starting 03/30/2023 until 03/30/2024 HEPATITIS B CORE ANTIBODIES IGG AND IGM Lab STAT 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) Bilateral pulmonary embolism (HCC) Encounter for screening for other viral diseases 1 Occurrences starting 03/30/2023 until 03/30/2024 HEPATITIS C ANTIBODY SCREEN WITH PROGRESSION TO HEPATITIS C RNA QUANTITATIVE Lab STAT 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) Bilateral pulmonary embolism (HCC) 1 Occurrences starting 03/30/2023 until 03/30/2024 CBC WITH WBC DIFFERENTIAL Lab STAT 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) Bilateral pulmonary embolism (HCC) 1 Occurrences starting 03/30/2023 until 03/30/2024 COMPREHENSIVE METABOLIC PANEL Lab STAT 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) Bilateral pulmonary embolism (HCC) 1 Occurrences starting 03/30/2023 until 03/30/2024 Scheduled Procedures Name Priority Associated Diagnoses Date/Ti [...] as of this encounter Results * (ABNORMAL) URINALYSIS, REFLEX TO MICROSCOPIC (03/31/2023 10:43 AM EDT) Color, Urine Yellow Light Yellow, Yellow, Dark Yellow 03/31/2023 11:23 AM EDT LAB[facility]ORY [facility] Clarity, Urine Clear Clear 03/31/2023 11:23 AM EDT [facility] Glucose, Urine Negative Negative mg/dL 03/31/2023 11:23 AM EDT [facility] Bilirubin, Urine Negative Negative 03/31/2023 11:23 AM EDT [facility] Ketone, Urine Negative Negative mg/dL 03/31/2023 11:23 AM EDT [facility] Specific Pearson, Urine 1.009 1.003 - 1.030 03/31/2023 11:23 AM EDT [facility] Blood, Urine Trace(A) Negative 03/31/2023 11:23 AM EDT [facility] pH, Urine 7.0 5.0 - 7.5 Units 03/31/2023 11:23 AM EDT [facility] Protein, Urine Negative Negative mg/dL 03/31/2023 11:23 AM EDT [facility] Urobilinogen, Urine 0.2 0.2, 1.0 mg/dL 03/31/2023 11:23 AM EDT [facility] Nitrite, Urine Negative Negative 03/31/2023 11:23 AM EDT [facility] Esterase, Urine Trace(A) Negative 03/31/2023 11:23 AM EDT [facility] Urine Urine specimen obtained by clean catch procedure / Unknown Non-blood Collection / Unknown 03/31/2023 10:43 AM EDT 03/31/2023 10:43 AM EDT Traci Mitchell MD LAB URINE ORDERABLES [facility] [address] [place] [address] documented in this encounter Visit Diagnoses Diagnosis 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)- Primary Dysuria Dyspepsia Dyspepsia and other specified disorders of function of stomach Bilateral pulmonary embolism (HCC) Other pulmonary embolism and infarction Encounter for screening for other viral diseases 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) documented in this encounter Advance Directives Documents on File Type Date Recorded Patient Car Customizer Expl anation Advance Directives and Living Will 06/24/2022 ADVANCE DIRECTIVE / LIVING WILL Power of Test Baker 06/24/2022 POWER OF A TTORNEY Latest Code Status on File Code Status Date Activated Date Inactivated Comments No Code 03/20/2023 1:42 AM 03/21/2023 5:59 PM This order reflects the patients wishes and were consensually agreed upon. Question Answer Comments Discussion of Advance Directives occurred with: Patient Care Teams Pinking Sewing Machine Operator Relationship Specialty Start Date End Date Gabby Balderas DO [address] [place] [address] PCP - General Family Medicine 03/25/23 documented as of this encounter
--- OUTSIDE RECORDS SUMMARY | 2023-07-05 14:49 | External Medical Summary | Summary of Care ---
Author Name Unknown Organization [facility] Address [address] [address] Phone [phone] Care Team Providers Care Cable Mock Up Assembler Name Role Phone Gabby Balderas DO Primary Care Provider [phone] Encounter Details Date Type Department Care Team Description 2023 Telephone [facility] [address] [facility] [address] [facility]deras [facility] [address] [facility] [address] Allergies No known active allergiesdocumented as of this encounter (statuses as of 04/06/2023) Medications Medication Sig Dispensed Refills Start Date [...] symptoms. 30 Tablet 0 03/21/2023 04/20/2023 Active Apixaban 5 MG Oral Tablet (Eliquis) Take 2 Tablets (10 mg) by mouth 2 times a day for 7 days, THEN take 1 tablet (5 mg) 2 times a day for 21 days. 70 Tablet 0 03/21/2023 03/30/2023 Discontinued (Refill) documented as of this encounter (statuses as of 04/06/2023) Active Problems Problem Noted Date Primary cancer [...] as of this encounter (statuses as of 04/06/2023) Resolved Problems Problem Noted Date Resolved Date Encounter for examination fo r normal comparison and control in clinical research program 11/21/2017 06/01/2020 Overview: DO NOT DELETE [facility] DETECT Study: Project # [id number], Bottle Tester: Khadar Dodd, PhD. SUMMARY: Goal: Establish [...] contact study staff at ; after hours Bottle Tester via the [facility] chemical plant operator . Please contact study team before resolving/deleting from patients problem list. Study phone number: [phone]. Diagnosis changed due to Research Module. Go to Snapshot for study details. Encounter for examination fo r normal comparison and control in clinical research program 11/21/2017 06/30/2022 Overview: DO NOT DELETE - [facility] Study: Project # [id number], Bottle Tester: Mykel Gill, MS, MPH. SUMMARY: Goal: [...] contact study staff at ; after hours Bottle Tester via the [facility] chemical plant operator . - Please contact study team before resolving/deleting from patients problem list. Study phone number: [phone]. Diagnosis changed due to Research Module. Go to Snapshot for study details. documented as of this encounter (statuses as of 04/06/2023) Immunizations Name Administration Dates Next Due Covid-19 [...] Miscellaneous Notes * Telephone Encounter - KRISTA Antoine - 2023 2:31 PM EDT 03/25/23 Pt had an appt at [facility] and wanted to reschedule appt for MRI on March 31 at [place] for something closer to if at all possible. PAR tried to schedule but was unable to do so? Please call and advise pt regarding rescheduling the MRI. documented in this encounter Plan of Treatment Upcoming Encounters Date Type Specialty Care Team Description 04/12/2023 Laboratory Laboratory Power, [facility] [address], [place] [id number] 04/12/2023 Office Visit Hematology Oncology Traci Mitchell MD [address], [place] [id number] 04/12/2023 Immunization/Inject ion Hematology Oncology Nurse, Med 4 [address], [place] [id number] 04/19/2023 Hospital Encounter Surgery Ortega Williamson, DO [address] [place] [address] 04/19/2023 Surgery Surgery Ortega Williamson, DO [address] [place] [address] INSERT TUNNELED CENTRAL VENOUS ACCESS WITH SUBQ PORT 04/26/2023 Laboratory Laboratory [facility] [address] [place] [address] 04/26/2023 Hem/Onc Treatment Hematology Oncology Deborah, Chair 5 Hem [address] [place] [address] 05/01/2023 Office Visit Family Medicine Gabby Balderas, DO [address] [place] [address] 05/10/2023 Office Visit Hematology Oncology Hesham Bray MD [address] [facility] [place] [address] Scheduled Procedures Name Priority Associated Diagnoses Date/Ti [...] Documents on File Type Date Recorded Patient Bird Trapper Expl anation Advance Directives and Living Will 06/24/2022 ADVANCE DIRECTIVE / LIVING WILL Power of Embedded Firmware Developer 06/24/2022 POWER OF A TTORNEY Latest Code Status on File Code Status Date Activated Date Inactivated Comments No Code 03/20/2023 1:42 AM 03/21/2023 5:59 PM This order reflects the patients wishes and were consensually agreed upon. Question Answer Comments Discussion of Advance Directives occurred with: Patient Care Teams Cable Mock Up Assembler Relationship Specialty Start Date End Date Gabby Balderas DO [address] [place] [address] PCP - General Family Medicine 03/25/23 documented as of this encounter
--- OUTSIDE RECORDS SUMMARY | 2023-07-05 14:49 | External Medical Summary | Summary of Care ---
Author Name Unknown Organization [facility] Address [address] [place] [address] Phone [phone] Care Team Providers Care Director Government Name Role Phone Gabby Balderas DO Primary Care Provider [phone] Reason for Visit * Reason Onset Date Comments Scheduling 04/13/2023 Encounter Details Date Type Department Care Team Description 04/13/2023 Telephone Interventional Radiology, [facility] [address] [place] [address] Requisition, External Radiology [address] [place] [address] Scheduling Allergies No known active allergiesdocumented as of [...] program 11/21/2017 06/01/2020 Overview: DO NOT DELETE [employer] DETECT Study: Project # [id number], Ankle Patch Molder: Khadar Dodd, PhD. SUMMARY: Goal: Establish test [...] contact study staff at ; after hours Ankle Patch Molder via the [facility] pack press operator . Please contact study team before resolving/deleting from patients problem list. Study phone number: [phone]. Diagnosis changed due to Research Module. Go to Snapshot for study details. Encounter for examination fo r normal comparison and control in clinical research program 11/21/2017 06/30/2022 Overview: DO NOT DELETE - [employer] DETECT Study: Project # [id number], Ankle Patch Molder: Mykel Gill, MS, MPH. SUMMARY: Goal: Establish [...] contact study staff at ; after hours Ankle Patch Molder via the [facility] hospital pack press operator . - Please contact study team before resolving/deleting from patients problem list. Study phone number: [phone]. Diagnosis changed due to Research Module. Go [...] Miscellaneous Notes * Telephone Encounter - KRISTA Carter - 04/13/2023 12:39 PM EDT Spoke to daughter Erin she called to cancel her mothers Mediport Insertion since the patient doesn't want the port that the ordering provider wants to have the patient start Chemo meds documented in this encounter Plan of Treatment Upcoming Encounters Date Type Specialty Care Team Description 04/14/2023 Pharmacy Pharmacy [facility], [facility] Hem/Onc [address] [place] [facility] [address] 04/26/2023 Laboratory Laboratory Moriah Cabrera [facility] [address] [facility] [address] 04/26/2023 Hem/Onc Treatment Hematology Oncology [place], Chair 5 Hem Onc [facility] [address] [facility] [address] 05/01/2023 Office Visit Family Medicine Gabby Balderas DO [address] [place] [address] 05/10/2023 Office Visit Hematology Oncology Hesham Bray MD [address] [facility] [place] [address] Health Maintenance Due Date Last Done Comments [...] Documents on File Type Date Recorded Patient Direct Mail Coordinator Expl anation Advance Directives and Living Will 06/24/2022 ADVANCE DIRECTIVE / LIVING WILL Power of Barrel Charrer Helper 06/24/2022 POWER OF A TTORNEY Latest Code Status on File Code Status Date Activated Date Inactivated Comments No Code 03/20/2023 1:42 AM 03/21/2023 5:59 PM This order reflects the patients wishes and were consensually agreed upon. Question Answer Comments Discussion of Advance Directives occurred with: Patient Care Teams Director Government Relationship Specialty Start Date End Date Gabby Balderas DO [address] [place] [address] PCP - General Family Medicine 03/25/23 documented as of this encounter
--- OUTSIDE RECORDS SUMMARY | 2023-07-05 14:49 | External Medical Summary | Summary of Care ---
Author Name Unknown Organization [facility] Address [address] [place] [address] Phone [phone] Care Team Providers Care Animal Taxonomist Name Role Phone Sherrie Gabbyjessica Armijo DO Primary Care Provider [phone] Reason for Visit * Reason Onset Date Comments Scheduling 04/04/2023 Encounter Details Date Type Department Care Team Description 04/04/2023 Telephone Interventional Radiology, [facility] [address] [place] [address] Requisition, External Radiology [address] [place] [address] Scheduling Allergies No known active allergiesdocumented as of this encounter (statuses as of 04/04/2023) Medications Medication Sig Dispensed Refills Start Date End Date Status Vitamin D 25 MCG (1000 UT) Oral Tablet Take 1 Tablet by mouth in the morning. 0 Active Omeprazole 20 MG Oral Capsule Delayed Release (PriLOSEC)Indication s:Gastroesophageal reflux disease, unspecified whether esophagitis present,Anemia, unspecified type Take 1 Capsule by mouth in the morning. 1 hour before the first meal of the day. 30 Capsule 1 03/17/2023 Active Vitron-C 65-125 MG Oral Tablet (Iron-Vitamin C 65-125 mg per tab)Indications:Othe r iron deficiency anemia Take 1 Tablet by mouth in the morning and 1 Tablet before bedtime. For iron supplement, generic, take with food. 60 Tablet 5 03/17/2023 Active Famotidine 20 MG Oral Tablet (Pepcid) Take 1 Tablet by mouth daily at bedtime as needed for heartburn/reflu x symptoms. 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 60 Tablet 2 03/30/2023 Active Sulfamethoxazole-Tri methoprim 800-160 MG Oral Tablet (Bactrim DS) Take [...] 11/21/2017 06/01/2020 Overview: DO NOT DELETE [employer] Study: Project # [id number], Nuclear Reactor Operator: Khadar Dodd, PhD. SUMMARY: Goal: Establish [...] contact study staff at ; after hours Nuclear Reactor Operator via the [facility] blanket cutting machine operator . Please contact study team before resolving/deleting from patients problem list. Study phone number: [phone]. Diagnosis changed due to Research Module. Go to Snapshot for study details. Encounter for examination fo r normal comparison and control in clinical research program 11/21/2017 06/30/2022 Overview: DO NOT DELETE - [facility] Study: Project # [id number], Nuclear Reactor Operator: Mykel Gill, MS, MPH. SUMMARY: Goal: [...] contact study staff at ; after hours Nuclear Reactor Operator via the [facility] blanket cutting machine operator . - Please contact study team before resolving/deleting from patients problem list. Study phone number: [phone]. Diagnosis changed due to Research Module. Go [...] encounter Miscellaneous Notes * Telephone Encounter - Kemi Camacho RN - 04/04/2023 3:10 PM EDT Spoke to patient's daughter, Erin, to make her aware that patient is okay to take Eliquis for her upcoming procedure * Telephone Encounter - KRISTA Carter - 04/04/2023 2:28 PM EDT Spoke to patient's daughter Erin to schedule her mothers Mediport Insertion for 04/19 at [facility]. Patient identified by: name/birthdate Person taught: Patient METHOD: Lecture-telephone interview Patient Preferred Learning Methods: Lecture-Telephone interview - General Preoperative Instructions Reviewed - NPO Instructions Reviewed, pt to stop eating 8 hours prior to procedure and stop drinking 2 hoursprior to procedure. -Able Bodied Watchman required Location and check-in instructions Verbalizes understanding The Patient's daughter Erin was given the opportunity to ask questions concerning the procedure. Signature: KRISTA Carter 04/04/2023 documented in this encounter Plan of Treatment Upcoming Encounters Date Type Specialty Care Team Description 04/12/2023 Laboratory Laboratory [place], Lab Med4 [address] [place] [address] 04/12/2023 Office Visit Hematology Oncology Traci Mitchell MD [address] [place], [place] [id number] 04/12/2023 Immunization/Inject ion Hematology Oncology Nurse, Med 4 [address] [place], [place] [id number] 04/19/2023 Hospital Encounter Surgery Ortega Williamson, DO [address] [place] [address] 04/19/2023 Surgery Surgery Ortega Williamson, DO [address] [place] [address] INSERT TUNNELED CENTRAL VENOUS ACCESS WITH SUBQ PORT 05/01/2023 Office Visit Family Medicine Gabby Balderas, DO [address] [place] [address] Scheduled Procedures Name Priority Associated Diagnoses Date/Ti [...] Documents on File Type Date Recorded Patient Personal Property Assessor Expl anation Advance Directives and Living Will 06/24/2022 ADVANCE DIRECTIVE / LIVING WILL Power of Corduroy Brusher Operator 06/24/2022 POWER OF A TTORNEY Latest Code Status on File Code Status Date Activated Date Inactivated Comments No Code 03/20/2023 1:42 AM 03/21/2023 5:59 PM This order reflects the patients wishes and were consensually agreed upon. Question Answer Comments Discussion of Advance Directives occurred with: Patient Care Teams Animal Taxonomist Relationship Specialty Start Date End Date Gabby Balderas DO [address] [place] [address] PCP - General Family Medicine 03/25/23 documented as of this encounter
--- OUTSIDE RECORDS SUMMARY | 2023-07-05 14:49 | External Medical Summary | Summary of Care ---
Author Name Unknown Organization [facility] Address [address] [place] [address] Phone [phone] Care Team Providers Care Principal Law Clerk Name Role Phone Gabby Balderas DO Primary Care Provider [phone] Reason for Visit * Reason Onset Date Comments Encounter Created in Error 04/11/2023 Encounter Details Date Type Department Care Team Description 04/11/2023 Telephone Hematology Oncology [facility] [address] [place] [address] Karo Ureña MD [address] [place] [address] Encounter Created in Error Allergies [...] Overview: Had Left Replaced Yrs Ago, dr rotega Eller Trigger finger of right thumb 08/08/2016 [...] [facility] Study: Project # [id number], Manager Order: Khadar Dodd, PhD. SUMMARY: Goal: Establish test [...] study staff at ; after hours Manager Order via the [facility] sand slinger operator . Please contact study team before resolving/deleting from patients problem list. Study phone number: [phone]. Diagnosis changed due to Research Module. Go to Snapshot for study details. Encounter for examination fo r normal comparison and control in clinical research program 11/21/2017 06/30/2022 Overview: DO NOT DELETE - [employer] DETECT Study: Project # [id number], Manager Order: Mykel Gill, MS, MPH. SUMMARY: Goal: Establish [...] study staff at ; after hours Manager Order via the [facility] sand slinger operator . - Please contact study team before resolving/deleting from patients problem list. Study phone number: [phone]. Diagnosis changed due to Research Module. Go [...] Team Description 04/19/2023 Hospital Encounter Surgery Ortega Williamson, DO [address] [place] [id number] 04/19/2023 Surgery Surgery Ortega Williamson, DO [address] [place] [address] INSERT TUNNELED CENTRAL VENOUS ACCESS WITH SUBQ PORT 04/26/2023 Laboratory Laboratory [place] [facility] [address] 04/26/2023 Hem/Onc Treatment Hematology Oncology [place], Chair 5 Hem Onc [facility] [address] [facility] [address] 05/01/2023 Office Visit Family Medicine Gabby Balderas, DO [address] [place] [address] 05/10/2023 Office Visit Hematology Oncology [facility] [address] Scheduled Procedures Name Priority Associated Diagnoses Date/Ti [...] Documents on File Type Date Recorded Patient Stacker Operator Expl anation Advance Directives and Living Will 06/24/2022 ADVANCE DIRECTIVE / LIVING WILL Power of Technician Preventative Medicine 06/24/2022 POWER OF A TTORNEY Latest Code Status on File Code Status Date Activated Date Inactivated Comments No Code 03/20/2023 1:42 AM 03/21/2023 5:59 PM This order reflects the patients wishes and were consensually agreed upon. Question Answer Comments Discussion of Advance Directives occurred with: Patient Care Teams Principal Law Clerk Relationship Specialty Start Date End Date Gabby Balderas DO [address] [place] [address] PCP - General Family Medicine 03/25/23 documented as of this encounter
--- OUTSIDE RECORDS SUMMARY | 2023-07-05 14:49 | External Medical Summary | Summary of Care ---
Author Name Unknown Organization [facility] Address [address] [facility] [place] [place] [address] Phone [phone] Care Team Providers Care Alodize Machine Operator Name Role Phone Gabby Balderas Zofia NAIK Primary Care Provider [phone] Reason for Visit * Reason Onset Date Comments Treatment 04/04/2023 Encounter Details Date Type Department Care Team Description 04/04/2023 Telephone Hematology/Oncology [facility] [address] [place] [address] Jose Oconnell MD [address] [place] [address] Treatment Allergies No known active allergiesdocumented as of this encounter (statuses as of 04/07/2023) Medications Medication Sig Dispensed Refills Start Date [...] as of this encounter (statuses as of 04/07/2023) Active Problems Problem Noted Date Primary cancer [...] as of this encounter (statuses as of 04/07/2023) Resolved Problems Problem Noted Date Resolved Date Encounter for examination fo r normal comparison and control in clinical research program 11/21/2017 06/01/2020 Overview: DO NOT DELETE [facility] DETECT Study: Project # [id number], Art Consultant: Khadar Dodd, PhD. SUMMARY: Goal: Establish test [...] contact study staff at ; after hours Art Consultant via the [facility] hospital line up machine operator . Please contact study team before resolving/deleting from patients problem list. Study phone number: [phone]. Diagnosis changed due to Research Module. Go to Snapshot for study details. Encounter for examination fo r normal comparison and control in clinical research program 11/21/2017 06/30/2022 Overview: DO NOT DELETE - [facility] DETECT Study: Project # [id number], Art Consultant: Mykel Gill, MS, MPH. SUMMARY: Goal: Establish [...] contact study staff at ; after hours Art Consultant via the [facility] hospital line up machine operator . - Please contact study team before resolving/deleting from patients problem list. Study phone number: [phone]. Diagnosis changed due to Research Module. Go to Snapshot for study details. documented as of this encounter (statuses as of 04/07/2023) Immunizations Name Administration Dates Next Due Covid-19 [...] * Telephone Encounter - KRISTA Ramsey - 04/06/2023 9:10 AM EDT Spoke to daughter Erin, scheduled for labs/treatment 04/26/23 @ 12:30/1:30 pm and new patient consultation with Dr Bray 05/10/23 @ 11:30 am. * Telephone Encounter - Shavon Garza RN - 04/05/2023 2:13 PM EDT Had previously spoken to Tri Gomez about patient. Patient is going to [place] 04/12/[address] Mitchell/ discuss treatment further. She will also get B12 and will need hep B labs prior to starting. We can schedule for treatment start. Scheduling: please call patient to schedule for 04/19 or later date - labs "CBCd, CMP, TSH" - 503 schedule for 3 hour appt "C1D1 keytruda/ alimta/ carbo" (Dr Traci Mitchell) Patient will also need new patient appt with Dr Oconnell or Dr Bray 2-3 weeks after this to establishwith our office for cycle 2 of treatment. Thanks! * Telephone Encounter - Ellen Joshi LPN - 04/05/2023 10:35 AM EDT Called patient to verify, spoke to daughter Erin. [facility] [place] mother will be living with her for any treatment ordered by Dr. Soto. * Telephone Encounter - Ellen Joshi LPN - 04/04/2023 1:54 PM EDT Received call from [facility] [place], patient currently sees Dr. Mitchell. No staff messages or messages in chart as present. There is a new oncology treatment plan from 03/30/[address] Mitchell, office visit note is not signed. FYI Nursing of above documented in this encounter Plan of Treatment Upcoming Encounters Date Type Specialty Care Team Description 04/12/2023 Laboratory Laboratory [place], Lab Med4 [address] [place] [address] 04/12/2023 Office Visit Hematology Oncology Traci Mitchell MD [address] [place], [place] [id number] 04/12/2023 Immunization/Inject ion Hematology Oncology Nurse, Med 4 [address] [place] [address] 04/19/2023 Hospital Encounter Surgery Ortega Williamson, DO [address] [place] [address] 04/19/2023 Surgery Surgery Ortega Williamson, DO [address] [place] [address] INSERT TUNNELED CENTRAL VENOUS ACCESS WITH SUBQ PORT 04/26/2023 Laboratory Laboratory [place], Lab Scenery [address] [place] [address] 04/26/2023 Hem/Onc Treatment Hematology Oncology [place], Chair 5 Hem Onc [place] [address] [place] [address] 05/01/2023 Office Visit Family Medicine Gabby Balderas, DO [address] [place] [address] 05/10/2023 Office Visit Hematology Oncology Hesham Bray MD 200 [place] [address] Scheduled Procedures Name Priority Associated Diagnoses Date/Ti [...] Documents on File Type Date Recorded Patient Tactical Debriefer Officer Expl anation Advance Directives and Living Will 06/24/2022 ADVANCE DIRECTIVE / LIVING WILL Power of Equipment Driver 06/24/2022 POWER OF A TTORNEY Latest Code Status on File Code Status Date Activated Date Inactivated Comments No Code 03/20/2023 1:42 AM 03/21/2023 5:59 PM This order reflects the patients wishes and were consensually agreed upon. Question Answer Comments Discussion of Advance Directives occurred with: Patient Care Teams Alodize Machine Operator Relationship Specialty Start Date End Date Gabby Balderas, DO [address] [place] [address] PCP - General Family Medicine 03/25/23 documented as of this encounter
--- OUTSIDE RECORDS SUMMARY | 2023-07-05 14:49 | External Medical Summary | Summary of Care ---
Author Name Unknown Organization [facility] Address [address] [facility] [place] [address] Phone [phone] Care Team Providers Care Filing Machine Operator Name Role Phone Gabby Balderas Zofia NAIK Primary Care Provider [phone] Reason for Visit * Reason Onset Date Comments Treatment 04/04/2023 Encounter Details Date Type Department Care Team Description 04/04/2023 Telephone Hematology/Oncology [facility] [address] [place] [address] Jose Oconnell MD [address] [place] [address] Treatment Allergies No known active allergiesdocumented as of this encounter (statuses as of 04/05/2023) Medications Medication Sig Dispensed Refills Start Date [...] as of this encounter (statuses as of 04/05/2023) Active Problems Problem Noted Date Primary cancer [...] as of this encounter (statuses as of 04/05/2023) Resolved Problems Problem Noted Date Resolved Date Encounter for examination fo r normal comparison and control in clinical research program 11/21/2017 06/01/2020 Overview: DO NOT DELETE [facility] DETECT Study: Project # [id number], Mushroom Farmer: Khadar Dodd, PhD. SUMMARY: Goal: Establish test [...] contact study staff at ; after hours Mushroom Farmer via the [facility] hospital minilab operator . Please contact study team before resolving/deleting from patients problem list. Study phone number: [phone]. Diagnosis changed due to Research Module. Go to Snapshot for study details. Encounter for examination fo r normal comparison and control in clinical research program 11/21/2017 06/30/2022 Overview: DO NOT DELETE - [facility] DETECT Study: Project # [id number], Mushroom Farmer: Mykel Gill, MS, MPH. SUMMARY: Goal: Establish [...] contact study staff at ; after hours Mushroom Farmer via the [facility] hospital minilab operator . - Please contact study team before resolving/deleting from patients problem list. Study phone number: [phone]. Diagnosis changed due to Research Module. Go to Snapshot for study details. documented as of this encounter (statuses as of 04/05/2023) Immunizations Name Administration Dates Next Due Covid-19 [...] Gomez about patient. Patient is going to [place] 04/12/[address] Mitchell/ discuss [...] [place]. [place] her for any treatment ordered by Dr. Soto. * Telephone Encounter - Ellen Joshi LPN - 04/04/2023 1:54 PM EDT Received call from [facility] [place], patient currently sees Dr. Mitchell. No staff messages or messages in chart as present. There is a new oncology treatment plan from 03/30/[address] Mitchell, office visit note is not signed. FYI Nursing of above documented in this encounter Plan of Treatment Upcoming Encounters Date Type Specialty Care Team Description 04/12/2023 Laboratory Laboratory [place], Lab Med4 [address] [place], [place] [id number] 04/12/2023 Office Visit Hematology Oncology Traci Mitchell MD [address] [place] [address] 04/12/2023 Immunization/Inject ion Hematology Oncology Nurse, Med 4 [address] [place] [address] 04/19/2023 Hospital Encounter Surgery Ortega Williamson, DO [address] [place] [address] 04/19/2023 Surgery Surgery Ortega Williamson, DO [address] [place] [id number] INSERT TUNNELED CENTRAL VENOUS ACCESS WITH SUBQ PORT 05/01/2023 Office Visit Family Medicine Gabby Balderas, DO [address] [place] [address] Scheduled Procedures Name Priority Associated Diagnoses Date/Ti [...] Documents on File Type Date Recorded Patient Executive Vice President Business Development Expl anation Advance Directives and Living Will 06/24/2022 ADVANCE DIRECTIVE / LIVING WILL Power of Program Project Analyst 06/24/2022 POWER OF A TTORNEY Latest Code Status on File Code Status Date Activated Date Inactivated Comments No Code 03/20/2023 1:42 AM 03/21/2023 5:59 PM This order reflects the patients wishes and were consensually agreed upon. Question Answer Comments Discussion of Advance Directives occurred with: Patient Care Teams Filing Machine Operator Relationship Specialty Start Date End Date Gabby Balderas DO [address] [place] [address] PCP - General Family Medicine 03/25/23 documented as of this encounter
--- OUTSIDE RECORDS SUMMARY | 2023-07-05 14:49 | External Medical Summary | Summary of Care ---
Author Name Unknown Organization [facility] Address [address] [facility] [place] [address] Phone [phone] Care Team Providers Care Computer Help Desk Specialist Name Role Phone Gabby Balderas Zofia NAIK Primary Care Provider [phone] Reason for Visit * Reason Onset Date Comments Treatment 04/04/2023 Encounter Details Date Type Department Care Team Description 04/04/2023 Telephone Hematology/Oncology [facility] [address] [place] [address] oJse Oconnell MD [address] [place] [address] Treatment Allergies No known active allergiesdocumented as [...] [facility] Study: Project # [id number], Client Program Manager: Khadar Dodd, PhD. SUMMARY: Goal: Establish [...] contact study staff at ; after hours Client Program Manager via the [facility] hotbed operator . Please contact study team before resolving/deleting from patients problem list. Study phone number: [phone]. Diagnosis changed due to Research Module. Go to Snapshot for study details. Encounter for examination fo r normal comparison and control in clinical research program 11/21/2017 06/30/2022 Overview: DO NOT DELETE - [facility] DETECT Study: Project # [id number], Client Program Manager: Mykel Gill, MS, MPH. SUMMARY: Goal: [...] contact study staff at ; after hours Client Program Manager via the [facility] hotbed operator . - Please contact study team before resolving/deleting from patients problem list. Study phone number: [phone]. Diagnosis changed due to Research Module. Go [...] encounter Miscellaneous Notes * Telephone Encounter - Ellen Joshi LPN - 04/05/2023 10:35 AM EDT Called patient to verify, spoke to daughter Erin. [place] be living with her for any treatment ordered by Dr. Soto. * Telephone Encounter - Ellen Joshi LPN - 04/04/2023 1:54 PM EDT Received call from [facility] that [place], patient currently sees Dr. Mitchell. No staff messages or messages in chart as present. There is a new oncology treatment plan from 03/30/[address] Mitchell, office visit note is not signed. FYI Nursing of above documented in this encounter Plan of Treatment Upcoming Encounters Date Type Specialty Care Team Description 04/12/2023 Laboratory Laboratory [place], Lab Med4 [address] [place] [facility] [place] [address] 04/12/2023 Office Visit Hematology Oncology Traci Mitchell MD [address] [place] [address] 04/12/2023 Immunization/Inject ion Hematology Oncology Nurse, Med 4 [address] [facility] [place] [address] 04/19/2023 Hospital Encounter Surgery Ortega Williamson DO [address] [place] [address] 04/19/2023 Surgery Surgery Ortega Williamson, DO [address] [place] [address] INSERT TUNNELED CENTRAL VENOUS ACCESS WITH SUBQ PORT 05/01/2023 Office Visit Family Medicine Sherrie Gabby Zofia DO [address] [place] [address] Scheduled Procedures Name Priority Associated Diagnoses Date/Ti [...] on File Type Date Recorded Patient Associate Dentist Expl anation Advance Directives and Living Will 06/24/2022 ADVANCE DIRECTIVE / LIVING WILL Power of Continuity Director 06/24/2022 POWER OF A TTORNEY Latest Code Status on File Code Status Date Activated Date Inactivated Comments No Code 03/20/2023 1:42 AM 03/21/2023 5:59 PM This order reflects the patients wishes and were consensually agreed upon. Question Answer Comments Discussion of Advance Directives occurred with: Patient Care Teams Computer Help Desk Specialist Relationship Specialty Start Date End Date Gabby Balderas DO [address] [place] [address] PCP - General Family Medicine 03/25/23 documented as of this encounter
--- OUTSIDE RECORDS SUMMARY | 2023-07-05 14:49 | External Medical Summary | Summary of Care ---
Author Name Unknown Organization [facility] Address [address] [place] [address] Phone [phone] Care Team Providers Care Labview Programmer Name Role Phone Gabby Balderas DO Primary Care Provider [phone] Reason for Visit * Reason Comments Medication Management Encounter Details Date Type Department Care Team Description 04/12/2023 Pharmacy Pharmacy Hematology Oncology [facility] [address] [place], [place] [id number] [facility] Hem/Onc [address] [place], [place] [id number] Primary cancer of left upper lobe of [...] program 11/21/2017 06/01/2020 Overview: DO NOT DELETE [employer] DETECT Study: Project # [id number], Highway Engineering Teacher: Khadar Dodd, PhD. SUMMARY: Goal: Establish test [...] contact study staff at ; after hours Highway Engineering Teacher via the [facility] focusing machine operator . Please contact study team before resolving/deleting from patients problem list. Study phone number: [phone]. Diagnosis changed due to Research Module. Go to Snapshot for study details. Encounter for examination fo r normal comparison and control in clinical research program 11/21/2017 06/30/2022 Overview: DO NOT DELETE - [employer] DETECT Study: Project # [id number], Highway Engineering Teacher: Mykel Gill, MS, MPH. SUMMARY: Goal: Establish [...] contact study staff at ; after hours Highway Engineering Teacher via the [facility] hospital focusing machine operator . - Please contact study team before resolving/deleting from patients problem list. Study phone number: [phone]. Diagnosis changed due to Research Module. 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 Mitchell Supportive Care Meds: Olanzapine Ondansetron (to be ordered via beacon plan) Review of therapy: Line of therapy: First line Previous therapy: N/a Reviewed dosage prescribed for appropriateness (based on indication, hepatic function,renal function, etc): no changes Are appropriate supportive care medications prescribed? No, to be ordered via beacon plan Are appropriate prophylactic medications prescribed? No, Not indicated Have baseline labs/tests been obtained? Yes - CMP to be completed at baseline Has hepatitis B screening been completed? No, ordered to be completed with repeat labs Potential drug-drug drug-herbal, drug-food, drug-disease interactions: Yes, Famotidine/Lumakras: (X: avoid combination; Histamine H2 Receptor Antagonists may decrease the serum concentration of Sotorasib.) o Recommendation: Avoid coadministration of sotorasib and proton pump inhibitors, potassium-competitive acid blockers, or histamine H2 receptor antagonists. If coadministration of sotorasib and gastric acid suppressing medications cannot be avoided, use antacids instead of histamine H2 receptor antagonists (H2RAs), proton pump inhibitors (PPIs), or potassium-competitive acid blockers (PCABs) and administer sotorasib 4 hours before or 10 hours after oral antacid administration. o Action: Sent DDI to ordering prescriber Farhana Doll -will review with patient pending providers response. Omeprazole/Lumakras: (X: Avoid combination, Inhibitors of the Proton Pump (PPIs and PCABs) may decrease the serum concentration of Sotorasib.) o Recommendation: Avoid coadministration of sotorasib and proton pump inhibitors, potassium-competitive acid blockers, or histamine H2 receptor antagonists. If coadministration of sotorasib and gastric acid suppressing medications cannot be avoided, use antacids instead of histamine H2 receptor antagonists (H2RAs), proton pump inhibitors (PPIs), or potassium-competitive acid blockers (PCABs) and administer sotorasib 4 hours before or 10 hours after oral antacid administration o Action: Sent DDI to ordering prescriber Farhana Doll -will review with patient pending providers response. The Hematology/Oncology Oral Chemotherapy Clinic will assess medication compliance at each patient encounter Assessment and Plan: Per 04/12 telemed visit - consent obtained for carbo/pemetrexed/and pembro o 03/30 treatment plan uploaded for carbo, pemetrexed, and pembro o 04/12 treatment plan uploaded for sotorasib o Need to confirm plans for treatment prior to release to pharmacy Yes/no Date Action Taken [place] plan entered? Yes 04/12/21 Consent completed? No To be completed prior to release to pharmacy. Intro/med rec completed? Precert completed? Test claim completed? Financial assistance needed? Physician signature? Rx released? Education completed? Follow up: 04/14 Kelly Eugene, PharmD Ambulatory Clinical Pharmacist | Oral Chemotherapy Clinic [facility] 04/12/2023 2:44 PM Monitoring Parameters: Estimated CrCl Serum creatinine: 0.8 mg/dL 03/25/23 1427 Estimated creatinine clearance: 43.1 mL/min Hepatitis panel Ordered to be completed with next labs Suggested lab monitoring CBCd as indicated, CMP every 3 weeks for first 3 months, then monthly Treatment Parameters See PI Time Spent on Encounter: 16 - 20 minutes Encounter Group: Oncology Encounter Interventions Item Category: Oral Chemotherapy Other: Sotorasib Problem/Rationale: [place] Plan Review: Initial Plan/upload Pharmacist Intervention(s): Care coordination, Drug Interaction Screen, Referral review and Referral to [facility] Magnitude of Intervention: Monitoring with direction (Level 1) documented in this encounter Plan of Treatment Upcoming Encounters Date Type Specialty Care Team Description 04/19/2023 Hospital Encounter Surgery Ortega Williamson, DO [address] [place] [address] 04/19/2023 Surgery Surgery Ortega Williamson, DO [address] [place] [address] INSERT TUNNELED CENTRAL VENOUS ACCESS WITH SUBQ PORT 04/26/2023 Laboratory Laboratory Deborah [facility] Scene [address] [place] [address] 04/26/2023 Hem/Onc Treatment Hematology Oncology Deborah, Chair 5 Hem Onc Scene [address] [place] [address] 05/01/2023 Office Visit Family Medicine Gabby Balderas, DO [address] [place] [address] 05/10/2023 Office Visit Hematology Oncology Hesham Bray MD [address] [place] [address] Scheduled Procedures Name Priority Associated Diagnoses Date/Ti [...] Documents on File Type Date Recorded Patient Logger All Round Expl anation Advance Directives and Living Will 06/24/2022 ADVANCE DIRECTIVE / LIVING WILL Power of Credit Checker 06/24/2022 POWER OF A TTORNEY Latest Code Status on File Code Status Date Activated Date Inactivated Comments No Code 03/20/2023 1:42 AM 03/21/2023 5:59 PM This order reflects the patients wishes and were consensually agreed upon. Question Answer Comments Discussion of Advance Directives occurred with: Patient Care Teams Labview Programmer Relationship Specialty Start Date End Date Gabby Balderas DO [address] [place] [address] PCP - General Family Medicine 03/25/23 documented as of this encounter"
--- OUTSIDE RECORDS SUMMARY | 2023-07-05 14:49 | External Medical Summary | Summary of Care ---
Author Name Unknown Organization [facility] Address [address] [place] [facility] [place] [address] Phone [phone] Care Team Providers Care Tea Tree Farm Worker Name Role Phone Gabby Balderas Zofia NAIK Primary Care Provider [phone] Reason for Visit * Reason Onset Date Comments Treatment 04/04/2023 Encounter Details Date Type Department Care Team Description 04/04/2023 Telephone Hematology/Oncology [facility] [address] [place] [address] Jose Oconnell MD [address] [place] [address] Treatment Allergies No known active allergiesdocumented as [...] [facility] DET[facility] Study: Project # [id number], Manager Cosmetics: Khadar Dodd, PhD. SUMMARY: Goal: Establish test [...] study staff at ; after hours Manager Cosmetics via the [facility] hospital survey instrument operator . Please contact study team before resolving/deleting from patients problem list. Study phone number: [phone]. Diagnosis changed due to Research Module. Go to Snapshot for study details. Encounter for examination fo r normal comparison and control in clinical research program 11/21/2017 06/30/2022 Overview: DO NOT DELETE - [facility] DETECT Study: Project # [id number], Manager Cosmetics: Mykel Gill, MS, MPH. SUMMARY: Goal: Establish [...] study staff at ; after hours Manager Cosmetics via the [facility] hospital survey instrument operator . - Please contact study team before resolving/deleting from patients problem list. Study phone number: [phone]. Diagnosis changed due to Research Module. Go [...] Gomez about patient. Patient is going to [place] 04/12/[address] Mitchell/ discuss [...] Erin. Erin states that [place] [facility] [place] her mother will be living with her for any treatment ordered by Dr. Soto. * Telephone Encounter - Ellen Joshi LPN - 04/04/2023 1:54 PM EDT Received call from [facility] that [place], patient currently sees Dr. Mitchell. No staff messages or messages in chart as present. There is a new oncology treatment plan from 03/30/[address] Mitchell, office visit note is not signed. FYI Nursing of above documented in this encounter Plan of Treatment Upcoming Encounters Date Type Specialty Care Team Description 04/12/2023 Laboratory Laboratory [place], Lab Med4 [address] [place] [address] 04/12/2023 Office Visit Hematology Oncology Traci Mitchell MD [address] [place], [place] [id number] 04/12/2023 Immunization/Inject ion Hematology Oncology Nurse, Med 4 [address] [place] [address] 04/19/2023 Hospital Encounter Surgery Ortega Williamson, DO [address] [place] [address] 04/19/2023 Surgery Surgery Ortega Williamson, DO [address] [place] [address] INSERT TUNNELED CENTRAL VENOUS ACCESS WITH SUBQ PORT 04/26/2023 Laboratory Laboratory Deborah, Lab Scenery [address] [place] [address] 04/26/2023 Hem/Onc Treatment Hematology Oncology Deborah, Chair 5 Hem Onc Scenery [address] [place] [address] 05/01/2023 Office Visit Family Medicine Gabby Balderas, DO [address] [place] [address] 05/10/2023 Office Visit Hematology Oncology Hesham Bray MD [address] [place] [address] Scheduled Procedures Name Priority Associated Diagnoses Date/Ti [...] Documents on File Type Date Recorded Patient Clothing Pattern Preparer Expl anation Advance Directives and Living Will 06/24/2022 ADVANCE DIRECTIVE / LIVING WILL Power of University Relations Recruiter 06/24/2022 POWER OF A TTORNEY Latest Code Status on File Code Status Date Activated Date Inactivated Comments No Code 03/20/2023 1:42 AM 03/21/2023 5:59 PM This order reflects the patients wishes and were consensually agreed upon. Question Answer Comments Discussion of Advance Directives occurred with: Patient Care Teams Tea Tree Farm Worker Relationship Specialty Start Date End Date Gabby Balderas, DO [address] [place] [address] PCP - General Family Medicine 03/25/23 documented as of this encounter
--- OUTSIDE RECORDS SUMMARY | 2023-07-05 14:50 | External Medical Summary ---
Author Name Unknown Address Unknown Organization : Laboratory Report Ordering Provider Test Date Status NO,UNKNOWN 03/29/2023 12:12:25 Final Observation Date Value Abnormality Reference (Units ) Status Glucose Point of Care 03/29/2023 12:12:25 87 70-120 (mg/dL) Final Performing Location
--- OUTSIDE RECORDS SUMMARY | 2023-07-05 14:50 | External Medical Summary | Summary of Care ---
Author Name Unknown Organization [facility] Address [address] [place] [address] Phone [phone] Care Team Providers Care Signals Collection Technician Name Role Phone Gabby Balderas DO Primary Care Provider [phone] Reason for Visit * Reason Comments Research Screening Encounter Details Date Type Department Care Team Description 03/28/2023 Documentation Hematology Oncology [facility] [place] [address] [place] [address] [facility] Office Hem Onc [address] [place] [address] Allergies No known active allergiesdocumented as of this encounter (statuses as of 03/28/2023) Medications Medication Sig Dispensed Refills Start Date [...] with food. 60 Tablet 5 03/17/2023 Active Apixaban 5 MG Oral Tablet (Eliquis) Take 2 Tablets (10 mg) by mouth 2 times a day for 7 days, THEN take 1 tablet (5 mg) 2 times a day for 21 days. 70 Tablet 0 03/21/2023 04/18/2023 Active Famotidine 20 MG Oral Tablet (Pepcid) Take 1 Tablet by mouth daily at bedtime as needed for heartburn/reflu x symptoms. 30 Tablet 0 03/21/2023 04/20/2023 Active documented as of this encounter (statuses as of 03/28/2023) Active Problems Problem Noted Date Generalized weakness 03/20/2023 Bilateral pulmonary embolism 03/20/2023 [...] as of this encounter (statuses as of 03/28/2023) Resolved Problems Problem Noted Date Resolved Date Encounter for examination fo r normal comparison and control in clinical research program 11/21/2017 06/01/2020 Overview: DO NOT DELETE [facility] DETECT Study: Project # [id number], Supervisor [place]: Khadar Dodd, PhD. SUMMARY: Goal: Establish test [...] contact study staff at ; after hours Supervisor [employer] via the [facility] converter operator . Please contact study team before resolving/deleting from patients problem list. Study phone number: [phone]. Diagnosis changed due to Research Module. Go to Snapshot for study details. Encounter for examination fo r normal comparison and control in clinical research program 11/21/2017 06/30/2022 Overview: DO NOT DELETE - [facility] Study: Project # [id number], Supervisor [place] [employer]: Mykel Gill, MS, MPH. SUMMARY: Goal: Establish [...] contact study staff at ; after hours Supervisor [employer] House via the [facility] converter operator . - Please contact study team before resolving/deleting from patients problem list. Study phone number: [phone]. Diagnosis changed due to Research Module. Go to Snapshot for study details. documented as of this encounter (statuses as of 03/28/2023) Immunizations Name Administration Dates Next Due Covid-19 [...] as of this encounter Progress Notes * Tomeka Ceron RN - 03/28/2023 10:41 AM EDT At the request of , this patient has been screened for possible clinical trials options for their diagnosis. This patient may be eligible for EA 5181:CIRB: Randomized Phase III Trial of [id number] (durvalumab) as Concurrent and Consolidative Therapy or Consolidative Therapy Alone for Unresectable Stage 3 NSCLC (RADIATION THERAPY COMPONENT) pending further review. Patient screened by Tomeka Ceron RN CRCll documented in this encounter Plan of Treatment Upcoming Encounters Date Type Specialty Care Team Description 03/29/2023 Hospital Encounter Radiology 03/30/2023 Office Visit Hematology Oncology Traci Mitchell MD [address] [place] [address] 03/31/2023 Hospital Encounter Radiology 04/05/2023 Office Visit Pulmonary Alaniz, Komal Menchaca MD [address] [place] [address] 05/01/2023 Office Visit Family Medicine Gabby Balderas, DO [address] [place] [address] Health Maintenance Due Date Last Done Comments [...] Documents on File Type Date Recorded Patient Equipment Operator Warehouse Expl anation Advance Directives and Living Will 06/24/2022 ADVANCE DIRECTIVE / LIVING WILL Power of Cart Attendant 06/24/2022 POWER OF A TTORNEY Latest Code Status on File Code Status Date Activated Date Inactivated Comments No Code 03/20/2023 1:42 AM 03/21/2023 5:59 PM This order reflects the patients wishes and were consensually agreed upon. Question Answer Comments Discussion of Advance Directives occurred with: Patient Care Teams Signals Collection Technician Relationship Specialty Start Date End Date Gabby Balderas DO [address] [place] [address] PCP - General Family Medicine 03/25/23 documented as of this encounter
--- OUTSIDE RECORDS SUMMARY | 2023-07-05 14:50 | External Medical Summary | Summary of Care ---
Author Name Unknown Organization [facility] Address [address] [place] [address] Phone [phone] Care Team Providers Care Chip Mucker Name Role Phone Gabby Balderas DO Primary Care Provider [phone] Reason for Visit * Reason Comments Outpatient Testing Encounter Details Date Type Department Care Team Description 03/31/2023 Laboratory Laboratory, [facility] [address] [place] [id number] [facility], Lab [address] [place] [address] Dysuria Allergies No known active allergiesdocumented as of this encounter (statuses as of 03/31/2023) Medications Medication Sig Dispensed Refills Start Date [...] before bedtime. 60 Tablet 2 03/30/2023 Active documented as of this encounter (statuses as of 03/31/2023) Active Problems Problem Noted Date Primary cancer [...] as of this encounter (statuses as of 03/31/2023) Resolved Problems Problem Noted Date Resolved Date Encounter for examination fo r normal comparison and control in clinical research program 11/21/2017 06/01/2020 Overview: DO NOT DELETE [facility] DETECT Study: Project # [id number], Gear Shaver Set Up Operator: Khadar Dodd, PhD. SUMMARY: Goal: Establish [...] contact study staff at ; after hours Gear Shaver Set Up Operator via the [facility] single wire saw operator . Please contact study team before resolving/deleting from patients problem list. Study phone number: [phone]. Diagnosis changed due to Research Module. Go to bCommunities for study details. Encounter for examination fo r normal comparison and control in clinical research program 11/21/2017 06/30/2022 Overview: DO NOT DELETE - [facility] Study: Project # [id number], Gear Shaver Set Up Operator: Mykel Gill, MS, MPH. SUMMARY: Goal: [...] contact study staff at ; after hours Gear Shaver Set Up Operator via the [facility] single wire saw operator . - Please contact study team before resolving/deleting from patients problem list. Study phone number: [phone]. Diagnosis changed due to Research Module. Go to Snapshot for study details. documented as of this encounter (statuses as of 03/31/2023) Immunizations Name Administration Dates Next Due Covid-19 [...] Encounters Date Type Specialty Care Team Description 04/05/2023 Office Visit Pulmonary Alaniz, Komal MD [facility] [address] [place] [address] 04/12/2023 Laboratory Laboratory [facility] [address] [place] [address] 04/12/2023 Office Visit Hematology Oncology Traci Mitchell MD [address] [place] [address] 04/12/2023 Immunization/Injection Hematology Oncolog y Nurse, Med 4 [address], [place] [id number] 05/01/2023 Office Visit Family Medicine Gabby Balderas, DO [address] [place] [address] Health Maintenance Due Date Last Done Comments [...] Procedure Name Priority Date/Time Associated Diagnosis Comments MICROSCOPIC EXAM, URINE Routine 03/31/2023 10:43 AM EDT Dysuria URINALYSIS, REFLEX TO MICROSCOPIC Routine 03/31/2023 10:43 AM EDT Dysuria documented in this encounter Results * (ABNORMAL) MICROSCOPIC EXAM, URINE (03/31/2023 10:43 AM EDT) RBC, Urine 0-2 0 - 2 /HPF 03/31/2023 11:23 AM EDT [facility] WBC, Urine 0-2 0 - 2 /HPF 03/31/2023 11:23 AM EDT [facility] Bacteria, Urine 51-100(A) 0 - 25 /HPF 03/31/2023 11:23 AM EDT [facility] Urine Urine specimen obtained by clean catch procedure / Unknown Non-blood Collection / Unknown 03/31/2023 10:43 AM EDT 03/31/2023 10:43 AM EDT Traci Mithcell MD LAB URINE ORDERABLES Performing Organization Address City/State/[facility] Co de Phone Number [facility] [address] [place] [address] * (ABNORMAL) URINALYSIS, REFLEX TO MICROSCOPIC (03/31/2023 10:43 AM EDT) Color, Urine Yellow Light Yellow, Yellow, Dark Yellow 03/31/2023 11:23 AM EDT [facility] Clarity, Urine Clear Clear 03/31/2023 11:23 AM EDT [facility] Glucose, Urine Negative Negative mg/dL 03/31/2023 11:23 AM EDT [facility] Bilirubin, Urine Negative Negative 03/31/2023 11:23 AM EDT [facility] Ketone, Urine Negative Negative mg/dL 03/31/2023 11:23 AM EDT [facility] Specific [place], Urine 1.009 1.003 - 1.030 03/31/2023 11:23 AM EDT [facility] Blood, Urine Trace(A) Negative 03/31/2023 11:23 AM EDT LAB[facility]ORY [facility] pH, Urine 7.0 5.0 - 7.5 Units 03/31/2023 11:23 AM EDT [facility] Protein, Urine Negative Negative mg/dL 03/31/2023 11:23 AM EDT [facility] Urobilinogen, Urine 0.2 0.2, 1.0 mg/dL 03/31/2023 11:23 AM EDT [facility] Nitrite, Urine Negative Negative 03/31/2023 11:23 AM EDT [facility] Esterase, Urine Trace(A) Negative 03/31/2023 11:23 AM EDT [facility] Urine Urine specimen obtained by clean catch procedure / Unknown Non-blood Collection / Unknown 03/31/2023 10:43 AM EDT 03/31/2023 10:43 AM EDT Traci Mitchell MD LAB URINE ORDERABLES Performing Organization Address City/State/[facility] Co de Phone Number [facility] [address] [place] [address] documented in this encounter Visit Diagnoses Diagnosis Dysuria documented in this encounter Advance Directives Documents on File Type Date Recorded Patient Principal Hardware Architect Expl anation Advance Directives and Living Will 06/24/2022 ADVANCE DIRECTIVE / LIVING WILL Power of Magnet Maker 06/24/2022 POWER OF A TTORNEY Latest Code Status on File Code Status Date Activated Date Inactivated Comments No Code 03/20/2023 1:42 AM 03/21/2023 5:59 PM This order reflects the patients wishes and were consensually agreed upon. Question Answer Comments Discussion of Advance Directives occurred with: Patient Care Teams Chip Mucker Relationship Specialty Start Date End Date Gabby Balderas DO [address] [place] [address] PCP - General Family Medicine 03/25/23 documented as of this encounter
--- OUTSIDE RECORDS SUMMARY | 2023-07-05 14:50 | External Medical Summary | Summary of Care ---
Author Name Unknown Organization [facility] Address [address] [place] [facility] [place] [place] [address] Phone [phone] Care Team Providers Care Hat Checker Name Role Phone Gabby Balderas DO Primary Care Provider [phone] Reason for Visit * Reason Comments Outpatient Testing Encounter Details Date Type Department Care Team Description 2023 Laboratory Laboratory, [facility] [address] [place] [address] [facility] [address] [place] [address] HTN, goal below 140/90; Hyponatremia; Anemia, unspecified type Allergies No known active allergiesdocumented as of this encounter (statuses as of 2023) Medications Medication Sig Dispensed Refills Start Date [...] as of this encounter (statuses as of 2023) Active Problems Problem Noted Date Generalized weakness [...] as of this encounter (statuses as of 2023) Resolved Problems Problem Noted Date Resolved Date Encounter for examination fo r normal comparison and control in clinical research program 11/21/2017 06/01/2020 Overview: DO NOT DELETE [facility] DETECT Study: Project # [id number], Supplier Quality Specialist: Khadar Dodd, PhD. SUMMARY: Goal: Establish [...] contact study staff at ; after hours Supplier Quality Specialist via the [facility] hospital badger distiller operator . Please contact study team before resolving/deleting from patients problem list. Study phone number: [phone]. Diagnosis changed due to Research Module. Go to Snapshot for study details. Encounter for examination fo r normal comparison and control in clinical research program 11/21/2017 06/30/2022 Overview: DO NOT DELETE - [facility] Study: Project # [id number], Supplier Quality Specialist: Mykel Gill, MS, MPH. SUMMARY: Goal: [...] contact study staff at ; after hours Supplier Quality Specialist via the [facility] hospital badger distiller operator . - Please contact study team before resolving/deleting from patients problem list. Study phone number: [phone]. Diagnosis changed due to Research Module. Go to Snapshot for study details. documented as of this encounter (statuses as of 2023) Immunizations Name Administration Dates Next Due Covid-19 [...] Date Type Specialty Care Team Description 03/29/2023 Appointment Radiology 03/30/2023 Office Visit Hematology Oncology Traci Mitchell MD [address] [place] [address] 03/31/2023 Appointment Radiology 04/05/2023 Office Visit Pulmonary Alaniz, Komal [place]aca MD [address] [facility] [place] [address] 05/01/2023 Office Visit Family Medicine Gabby Balderas, DO [address] [place] [address] Pending Results Name Type Priority Associated Diagnoses Date /Time BASIC METABOLIC PANEL Lab Routine HTN, goal below 140/90 Hyponatremia 2023 2:27 PM EDT CBC WITH WBC DIFFERENTIAL AND ANEMIA REFLEX WORKUP Lab Routine Anemia, unspecified type 2023 2:27 PM EDT FERRITIN Lab Routine Anemia, unspecified type 2023 2:27 PM EDT ANEMIA CBC Lab Routine Anemia, unspecified type 2023 2:27 PM EDT DIFFERENTIAL, AUTOMATED Lab Routine Anemia, unspecified type 2023 2:27 PM EDT ANEMIA REFLEX CHEMISTRY HOLD Lab Routine Anemia, unspecified type 2023 2:27 PM EDT Health Maintenance Due Date Last [...] as of this encounter Visit Diagnoses Diagnosis HTN, goal below 140/90 Unspecified essential hypertension Hyponatremia Hyposmolality and/or hyponatremia Anemia, unspecified type documented in this encounter Advance Directives Documents on File Type Date Recorded Patient Log Snaker Expl anation Advance Directives and Living Will 06/24/2022 ADVANCE DIRECTIVE / LIVING WILL Power of Box Car Washer 06/24/2022 POWER OF A TTORNEY Latest Code Status on File Code Status Date Activated Date Inactivated Comments No Code 03/20/2023 1:42 AM 03/21/2023 5:59 PM This order reflects the patients wishes and were consensually agreed upon. Question Answer Comments Discussion of Advance Directives occurred with: Patient Care Teams Hat Checker Relationship Specialty Start Date End Date Gabby Balderas DO [address] [place] [address] PCP - General Family Medicine 03/25/23 documented as of this encounter
--- OUTSIDE RECORDS SUMMARY | 2023-07-05 14:50 | External Medical Summary | Summary of Care ---
Author Name Unknown Organization [facility] Address [address] [place] [address] Phone [phone] Care Team Providers Care Metal Hardener Name Role Phone Lucius Balderasjessica Armijo DO Primary Care Provider [phone] Reason for Referral * Precert (Within 10 days (routine)) - Authorized Specialty Diagnoses / Procedures Referred By Lubna t Referred To Contact Radiology Diagnoses Mass of upper lobe of left lung Procedures PET CT SKULL BASE TO MID-THIGH Traci Mitchell MD [address] [place] [address] Referral ID Status Reason Start Date Expiration Date V isits Requested Visits Authorized [id number] Authorized 03/21/2023 999 999 Reason for Visit * Precert (Within 10 days (routine)) - Authorized Specialty Diagnoses / Procedures Referred By Lubna guidry Referred To Contact Radiology Diagnoses Mass of upper lobe of left lung Procedures PET CT SKULL BASE TO MID-THIGH Traci Mitchell MD [address] [place] [address] Referral ID Status Reason Start Date Expiration Date V isits Requested Visits Authorized [id number] Authorized 03/21/2023 999 999 Encounter Details Date Type Department Care Team Description 03/29/[address] IMAGING, [facility] [address] [place] [address] Arrived Allergies No known active allergiesdocumented as of this encounter (statuses as of 03/30/2023) Medications Medication Sig Dispensed Refills Start Date [...] symptoms. 30 Tablet 0 03/21/2023 04/20/2023 Active Hospital, Clinic, or Other Facility Administered Medication Ordered Dose Route Frequency Start Date End Date Status sodium chloride 0.9 % flush/inj 10 mL 10 mL IV PUSH ONCE 03/29/2023 03/29/2023 Ended documented as of this encounter (statuses as of 03/30/2023) Active Problems Problem Noted Date Generalized weakness [...] as of this encounter (statuses as of 03/30/2023) Resolved Problems Problem Noted Date Resolved Date Encounter for examination fo r normal comparison and control in clinical research program 11/21/2017 06/01/2020 Overview: DO NOT DELETE [facility] DETECT Study: Project # [id number], M1 Armor Crewman: Khadar Dodd, PhD. SUMMARY: Goal: Establish test [...] contact study staff at ; after hours M1 Armor Crewman via the [facility] hospital packaging operator . Please contact study team before resolving/deleting from patients problem list. Study phone number: [phone]. Diagnosis changed due to Research Module. Go to Snapshot for study details. Encounter for examination fo r normal comparison and control in clinical research program 11/21/2017 06/30/2022 Overview: DO NOT DELETE - [facility] DETECT Study: Project # [id number], M1 Armor Crewman: Mykel Gill, MS, MPH. SUMMARY: Goal: Establish [...] contact study staff at ; after hours M1 Armor Crewman via the [facility] hospital packaging operator . - Please contact study team before resolving/deleting from patients problem list. Study phone number: [phone]. Diagnosis changed due to Research Module. Go to Snapshot for study details. documented as of this encounter (statuses as of 03/30/2023) Immunizations Name Administration Dates Next Due Covid-19 [...] Sign Reading Time Taken Comments Blood Pressure - - Pulse - - Temperature - - Respiratory Rate - - Oxygen Saturation - - Inhaled Oxygen Concentration - - Weight 48.1 kg (106 lb) 03/29/2023 12:00 PM EDT Height - - Body Mass Index 18.78 2023 1:36 PM EDT documented in this encounter Functional [...] Encounters Date Type Specialty Care Team Description 03/30/2023 Office Visit Hematology Oncology Traci Mitchell MD [address] [place] [address] 03/31/2023 Hospital Encounter Radiology 04/05/2023 Office Visit Pulmonary AlanizKomal MD [address] [place] [address] 05/01/2023 Office Visit Family Medicine Gabby Balderas DO [address] [place] [address] Pending Results Name Type Priority Associated Diagnoses Date /Time PET CT SKULL BASE TO MID-THIGH Medical Imaging Routine Mass of upper lobe of left lung 03/29/2023 1:55 PM EDT Scheduled Orders Name Type Priority Associated Diagnoses Orde r Schedule PET CT SKULL BASE TO MID-THIGH Medical Imaging Routine Mass of upper lobe of left lung 1 Occurrences starting 03/29/2023 until 03/29/2023 Health Maintenance Due Date Last Done Comments [...] Procedure Name Priority Date/Time Associated Diagnosis Comments GLUCOSE METER, POINT OF CARE UZAIR 03/29/2023 12:12 PM EDT documented in this encounter Results * GLUCOSE METER, POINT OF CARE (03/29/2023 12:12 PM EDT) Glucose Meter 87 70 - 120 mg/dL 03/29/2023 12:15 PM EDT [facility] Whole blood specimen / Unknown 03/29/2023 12:12 PM EDT 03/29/2023 12:15 PM EDT No Physician Data Unknown LAB POINT OF C ARE TEST DOCKED DEVICE UNSOLICITED RESULTS [facility] [address] [place] [address] documented in this encounter Visit Diagnoses Diagnosis Mass of upper lobe of left lung documented in this encounter Administered Medications Inactive Administered Medications - up to 3 most recent administrations Medication Order MAR Action Action Date Dose Rate Site fludeoxyglucose f-18 (Fdg) inj 10.19 millicurie 10.19 millicurie, Intravenous, ONCE, On Mon03/29/23 at 1232, For 1 dose, Radiology Medication Routing (Non-IR) Given 03/29/2023 12:15 PM EDT 10.19 millicuries sodium chloride 0.9 % flush/inj 10 mL 10 mL, IV Push, ONCE, On Mon03/29/23 at 1232, For 1 dose, Do not flush if lock, PICC, or central line not in place; IV infusing or unable to flush., Radiology Medication Routing (Non-IR) Given 03/29/2023 12:15 PM EDT 10 mL documented in this encounter Advance Directives Documents on File Type Date Recorded Patient Building Services Coordinator Expl anation Advance Directives and Living Will 06/24/2022 ADVANCE DIRECTIVE / LIVING WILL Power of Equipment Sales Specialist 06/24/2022 POWER OF A TTORNEY Latest Code Status on File Code Status Date Activated Date Inactivated Comments No Code 03/20/2023 1:42 AM 03/21/2023 5:59 PM This order reflects the patients wishes and were consensually agreed upon. Question Answer Comments Discussion of Advance Directives occurred with: Patient Care Teams Metal Hardener Relationship Specialty Start Date End Date Gabby Balderas DO [address] [place] [address] PCP - General Family Medicine 03/25/23 documented as of this encounter
--- OUTSIDE RECORDS SUMMARY | 2023-07-05 14:50 | External Medical Summary | Summary of Care ---
Author Name Unknown Organization [facility] Address [address] [place] [facility] [place] [address] Phone [phone] Care Team Providers Care Body Rolling Machine Tender Name Role Phone Gabby Balderas Zofia NAIK Primary Care Provider [phone] Reason for Visit * Reason Onset Date Comments Treatment 04/04/2023 Encounter Details Date Type Department Care Team Description 04/04/2023 Telephone Hematology/Oncology [facility] [address] [place] [address] Jose Oconnell MD [address] [place] [address] Treatment Allergies No known active allergiesdocumented as [...] DELETE [facility] DETECT Study: Project # [id number], Polisher Implant: Khadar Dodd, PhD. SUMMARY: Goal: Establish test [...] contact study staff at ; after hours Polisher Implant via the [facility] hospital speeder operator . Please contact study team before resolving/deleting from patients problem list. Study phone number: [phone]. Diagnosis changed due to Research Module. Go to Snapshot for study details. Encounter for examination fo r normal comparison and control in clinical research program 11/21/2017 06/30/2022 Overview: DO NOT DELETE - [facility] DETECT Study: Project # [id number], Polisher Implant: Mykel Gill, MS, MPH. SUMMARY: Goal: Establish [...] contact study staff at ; after hours Polisher Implant via the [facility] hospital speeder operator . - Please contact study team before resolving/deleting from patients problem list. Study phone number: [phone]. Diagnosis changed due to Research Module. Go [...] 04/04/2023 1:54 PM EDT Received call from [facility] [place] patient currently sees Dr. Mitchell. No staff messages or messages in chart as present. There is a new oncology treatment plan from 03/30/[address] Mitchell, office visit note is not signed. FYI Nursing of above documented in this encounter Plan of Treatment Upcoming Encounters Date Type Specialty Care Team Description 04/12/2023 Laboratory Laboratory [facility] [address] [place] [address] 04/12/2023 Office Visit Hematology Oncology Traci Mitchell MD [address] [place] [address] 04/12/2023 Immunization/Injection Hematology Oncolog y Nurse, Med 4 [address] [place] [address] 05/01/2023 Office Visit Family Medicine Gabby Balderas DO [address] [place] [address] Health Maintenance Due Date Last Done Comments [...] Documents on File Type Date Recorded Patient Bottom Worker Expl anation Advance Directives and Living Will 06/24/2022 ADVANCE DIRECTIVE / LIVING WILL Power of Toe Former 06/24/2022 POWER OF A TTORNEY Latest Code Status on File Code Status Date Activated Date Inactivated Comments No Code 03/20/2023 1:42 AM 03/21/2023 5:59 PM This order reflects the patients wishes and were consensually agreed upon. Question Answer Comments Discussion of Advance Directives occurred with: Patient Care Teams Body Rolling Machine Tender Relationship Specialty Start Date End Date Gabby Balderas DO [address] [place] [address] PCP - General Family Medicine 03/25/23 documented as of this encounter
--- OUTSIDE RECORDS SUMMARY | 2023-07-05 14:50 | External Medical Summary | Summary of Care ---
Author Name Unknown Organization [facility] Address [address] [facility] [place] [address] Phone [phone] Care Team Providers Care Salsa Dance Instructor Name Role Phone Gabby Balderas DO Primary Care Provider [phone] Reason for Visit * Reason Onset Date Comments Appointment 03/28/2023 ECHO Encounter Details Date Type Department Care Team Description 03/28/[address] [facility] [address] [place] [address] Gabby Balderas DO [address] [place] [address] Appointment (ECHO) Allergies No known active allergiesdocumented as of [...] The Chronically Ill DETECT Study: Project # [id number], Pipeline Dispatch Operator: Khadar Dodd, PhD. SUMMARY: Goal: Establish [...] contact study staff at ; after hours Pipeline Dispatch Operator via the [facility] nuclear waste process operator . Please contact study team before resolving/deleting from patients problem list. Study phone number: [phone]. Diagnosis changed due to Research Module. Go to Snapshot for study details. Encounter for examination fo r normal comparison and control in clinical research program 11/21/2017 06/30/2022 Overview: DO NOT DELETE - [facility] Study: Project # [id number], Pipeline Dispatch Operator: Mykel Gill, MS, MPH. SUMMARY: Goal: [...] contact study staff at ; after hours Pipeline Dispatch Operator via the [facility] nuclear waste process operator . - Please contact study team before resolving/deleting from patients problem list. Study phone number: [phone]. Diagnosis changed due to Research Module. Go to Snapshot for study details. documented as of this encounter (statuses as of 03/30/2023) Immunizations Name Administration Dates Next Due Covid-19 Ad26, Single Dose (imagoo/J&J) 022 Pneumococcal Polysaccharide PPV23 (Pneumovax) TD - [...] encounter Miscellaneous Notes * Telephone Encounter - Felicitas RayneKRISTA - 03/30/2023 9:59 AM EDT In echo notes-will discuss with oncology then call back, living with daughter in [place] right now 03-28-23 ksp * Telephone Encounter - KRISTA Matute - 03/28/2023 9:46 AM EDT Erin returning call- transferred to scheduling * Telephone Encounter - KRISTA Celeste - 03/28/2023 9:23 AM EDT LM with a Erin to have pt call to schedule her ECHO at any location (I did not give any info on what needed scheduled) documented in this encounter Plan of Treatment Upcoming Encounters Date Type Specialty Care Team Description 03/30/2023 Office Visit Hematology Oncology Traci Mitchell MD [address], [place] [id number] 03/31/2023 Hospital Encounter Radiology 04/05/2023 Office Visit Pulmonary Alaniz, Komal Menchaca MD [address] [place] [address] 05/01/2023 Office Visit Family Medicine Gabby Balderas, DO [address] [place] [address] Health Maintenance Due Date Last Done Comments [...] Documents on File Type Date Recorded Patient Medical Physics Researcher Expl anation Advance Directives and Living Will 06/24/2022 ADVANCE DIRECTIVE / LIVING WILL Power of Adobe Maker 06/24/2022 POWER OF A TTORNEY Latest Code Status on File Code Status Date Activated Date Inactivated Comments No Code 03/20/2023 1:42 AM 03/21/2023 5:59 PM This order reflects the patients wishes and were consensually agreed upon. Question Answer Comments Discussion of Advance Directives occurred with: Patient Care Teams Salsa Dance Instructor Relationship Specialty Start Date End Date Gabby Balderas DO [address] [place] [address] PCP - General Family Medicine 03/25/23 documented as of this encounter
--- OUTSIDE RECORDS SUMMARY | 2023-07-05 14:50 | External Medical Summary ---
Author Name Unknown Address Unknown Organization [facility]:LABORATORY [facility] - [address] [facility] [address] Laboratory Report Ordering Provider Test Date Status BERTO ALAS 03/31/2023 10:43:12 Final Observation Date Value Abnormality Reference (Units ) Status Color of Urine by Auto 03/31/2023 10:43:12 Yellow Light Yellow, Yellow, Dark Yellow Final Clarity, Urine 03/31/2023 10:43:12 Clear Clear Final Glucose [Mass/volume] in Urine by Automated test strip 03/31/2023 10:43:12 Negative Negative (mg/dL) Final Bilirubin.total [Presence] in Urine by Automated test strip 03/31/2023 10:43:12 Negative Negative Final Ketones [Mass/volume] in Urine by Automated test strip 03/31/2023 10:43:12 Negative Negative (mg/dL) Final Specific gravity, Urine 03/31/2023 10:43:12 1.009 1.003-1.030 Final Hemoglobin [Presence] in Urine by Automated test strip 03/31/2023 10:43:12 Trace Abnormal Negative Final pH, Urine 03/31/2023 10:43:12 7.0 5.0-7.5 (Units) Final Protein [Mass/volume] in Urine by Automated test strip 03/31/2023 10:43:12 Negative Negative (mg/dL) Final Urobilinogen [Mass/volume] in Urine by Automated test strip 03/31/2023 10:43:12 0.2 0.2, 1.0 (mg/dL) Final Nitrite [Presence] in Urine by Automated test strip 03/31/2023 10:43:12 Negative Negative Final Leukocyte esterase [Presence] in Urine by Automated test strip 03/31/2023 10:43:12 Trace Abnormal Negative Final Performing Location LABORATORY [facility] - [address] [facility] [address]
--- OUTSIDE RECORDS SUMMARY | 2023-07-05 14:50 | External Medical Summary ---
Author Name Unknown Address Unknown Organization [facility]:LABORATORY [facility] - [address] [place], [place] [id number] Laboratory Report Ordering Provider Test Date Status BERTO ALAS 03/31/2023 10:43:12 Final Observation Date Value Abnormality Reference (Units ) Status RBC, Urine 03/31/2023 10:43:12 0-2 0-2 (/HPF) Final WBC, Urine 03/31/2023 10:43:12 0-2 0-2 (/HPF) Final Bacteria [#/area] in Urine sediment by Microscopy high power field 03/31/2023 10:43:12 51-100 Abnormal 0-25 (/HPF) Final Performing Location LABORATORY [facility] - [address] [place], [place] [id number]
--- OUTSIDE RECORDS SUMMARY | 2023-07-05 14:50 | External Medical Summary | Summary of Care ---
Author Name Unknown Organization [facility] Address [address] [place] [address] Phone [phone] Care Team Providers Care Dispatcher Street Department Name Role Phone Sherrie Gabbyjessica Armijo DO Primary Care Provider [phone] Reason for Visit * Reason Onset Date Comments Scheduling 04/04/2023 Encounter Details Date Type Department Care Team Description 04/04/2023 Telephone Interventional Radiology, [facility] [address] [place] [address] Requisition, External Radiology [address] [place] [address] Scheduling Allergies No known active [...] DELETE [facility] Study: Project # [id number], Dental Patient Coordinator: Khadar Dodd, PhD. SUMMARY: Goal: Establish [...] contact study staff at ; after hours Dental Patient Coordinator via the [facility] stroboroma operator . Please contact study team before resolving/deleting from patients problem list. Study phone number: [phone]. Diagnosis changed due to Research Module. Go to Snapshot for study details. Encounter for examination fo r normal comparison and control in clinical research program 11/21/2017 06/30/2022 Overview: DO NOT DELETE - [facility] Study: Project # [id number], Dental Patient Coordinator: Mykel Gill, MS, MPH. SUMMARY: Goal: [...] contact study staff at ; after hours Dental Patient Coordinator via the [facility] stroboroma operator . - Please contact study team before resolving/deleting from patients problem list. Study phone number: [phone]. Diagnosis changed due to Research Module. Go [...] shopping? (15 years old or older) No 05/22/20 23 Cognitive Status Response Date of Assessm [...] her mothers Mediport Insertion for 04/19 at [facility]. Patient identified by: name/birthdate Person taught: Patient METHOD: Lecture-telephone interview Patient Preferred Learning Methods: Lecture-Telephone interview - General Preoperative Instructions Reviewed - NPO Instructions Reviewed, pt to stop eating 8 hours prior to procedure and stop drinking 2 hoursprior to procedure. -Drupal Web Developer required Location and check-in instructions Verbalizes understanding The Patient's daughter Erin was given the opportunity to ask questions concerning the procedure. Signature: KRISTA Carter 04/04/2023 documented in this encounter Plan of Treatment Upcoming Encounters Date Type Specialty Care Team Description 04/12/2023 Laboratory Laboratory [place], [facility] [address] [place] [address] 04/12/2023 Office Visit Hematology Oncology Traci Mitchell MD [address] [place] [address] 04/12/2023 Immunization/Inject ion Hematology Oncology Nurse, Med [address] [place] [address] 04/19/2023 Hospital Encounter Surgery Ortega Williamson, [address] [place] [address] 04/19/2023 Surgery Surgery Ortega Williamson DO [address] [address] INSERT TUNNELED CENTRAL VENOUS ACCESS WITH SUBQ PORT 05/01/2023 Office Visit Family Medicine Gabby Balderas DO [address] [place] [address] Scheduled Procedures Name Priority Associated Diagnoses Date/Ti me INSERT TUNNELED CENTRAL VENOUS ACCESS WITH SUBQ PORT 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) 04/19/2023 12:00 PM EDT Health Maintenance Due Date Last Done Comments DXA Scan 02/08/2020 02/07/2017, 01/29, 02/20/2014, Additional history exists COVID-19 Vaccine (2 - Booster for Peirce series) 01/18/2022 11/23/2021 Zoster Vaccines (2 of [...] Documents on File Type Date Recorded Patient Dev Ops Engineer Expl anation Advance Directives and Living Will 06/24/2022 ADVANCE DIRECTIVE / LIVING WILL Power of Internet Manager 06/24/2022 POWER OF A TTORNEY Latest Code Status on File Code Status Date Activated Date Inactivated Comments No Code 03/20/2023 1:42 AM 03/21/2023 5:59 PM This order reflects the patients wishes and were consensually agreed upon. Question Answer Comments Discussion of Advance Directives occurred with: Patient Care Teams Dispatcher Street Department Relationship Specialty Start Date End Date Gabby Balderas DO [address] [place] [address] PCP - General Family Medicine 03/25/23 documented as of this encounter
--- OUTSIDE RECORDS SUMMARY | 2023-07-05 14:50 | External Medical Summary | Summary of Care ---
Author Name Unknown Organization [facility] Address [address] [place] [address] Phone [phone] Care Team Providers Care Salvage Engineering Technician Name Role Phone Sherrie Gabbyjessica Armijo DO Primary Care Provider [phone] Reason for Referral * Precert (Within 10 days (routine)) - Authorized Specialty Diagnoses / Procedures Referred By Contac t Referred To Contact Cardiac Studies Diagnoses Pericardial effusion Pleural effusion Procedures ECHO, COMPLETE (2D), TRANS-THORACIC Farhana Doll PA-C [address] [place] [address] Referral ID Status Reason Start Date Expiration Date V isits Requested Visits Authorized [id number] Authorized Precert 2023 999 999 * Evaluate & Treat - Unlimited Visits (Within 30 days (routine)) - Authorized Specialty Diagnoses / Procedures Referred By Contac t Referred To Contact Pulmonary Diseases / Pulmonary Diagnoses Mass of upper lobe of left lung Lung mass Farhana Doll PA-C [address] [place] [address] Referral ID Status Reason Start Date Expiration Date Visits Requested Visits Authorized [id number] Authorized Specialty Services Required 2023 999 999 Question Answer Referral Priority Within 30 days (routine) Primary Reason for Referral? Other * Evaluate & Treat - Unlimited Visits (Within 30 days (routine)) - Authorized Specialty Diagnoses / Procedures Referred By Contac t Referred To Contact Hematology/Oncology / Hematology Oncology Diagnoses Mass of upper lobe of left lung Lung mass Farhana Doll PA-C [address] [place] [address] Referral ID Status Reason Start Date Expiration Date Visits Requested Visits Authorized [id number] Authorized Specialty Services Required 2023 999 999 Question Answer Referral Priority Within 30 days (routine) Reason for Referral Malignant Oncology (Solid Organ Cancer) Reason for Visit * Reason Comments NEW PATIENT Encounter Details Date Type Department Care Team Description 2023 Office Visit Family Medicine [address] [place] [address] Farhana Doll PA-C [address], [place] [id number] Anemia, unspecified type*; HTN, goal below 140/90; Mass of upper lobe of left lung; Generalized weakness; Lung mass; Hyponatremia; Pericardial effusion; Pleural effusion Allergies No known active allergiesdocumented as of [...] [facility] Study: Project # [id number], Grocery Checker: Khadar Dodd, PhD. SUMMARY: Goal: Establish test [...] contact study staff at ; after hours Grocery Checker via the [facility] ball truing machine operator . Please contact study team before resolving/deleting from patients problem list. Study phone number: [phone]. Diagnosis changed due to Research Module. Go to Snapshot for study details. Encounter for examination fo r normal comparison and control in clinical research program 11/21/2017 06/30/2022 Overview: DO NOT DELETE - [facility] Study: Project # [id number], Grocery Checker: Mykel Gill, MS, MPH. SUMMARY: Goal: Establish [...] contact study staff at ; after hours Grocery Checker via the [facility] ball truing machine operator . - Please contact study team before resolving/deleting from patients problem list. Study phone number: [phone]. Diagnosis changed due to Research Module. Go to [employer] for study details. documented as of this [...] Sign Reading Time Taken Comments Blood Pressure 110/62 2023 1:36 PM EDT Pulse 81 2023 1:36 PM EDT Temperature 36.9 C (98.4 F) 2023 1:36 PM ED T Respiratory Rate 16 2023 1:36 PM EDT Oxygen Saturation 95% 2023 1:36 PM EDT Inhaled Oxygen Concentration - - Weight 48.5 kg (107 lb) 2023 1:36 PM EDT Height 160 cm (5' 3") 2023 1:36 PM EDT Body Mass Index 18.95 2023 1:36 PM EDT documented in this [...] as of this encounter Progress Notes * Farhana Doll PA-C - 2023 1:47 PM EDT Images from the original note were not included. History of Present Illness Reba Delaney is a 78 year old female that presents for NEW PATIENT Here for HD. [facility] weaknessfor 3 days duration. She was seen by PCP for flu like symptoms in which and xray was preformed, finding a lung opacity requiring CT imaging for further evaluation. CT imaging was concerning for neoplasm upon discovery of irregularly shaped mass-like structure in the left upper lobe. She was scheduled for a diagnostic bronchoscopy with biopsy of said lesion. She was placed on augmentin by PCP due to concerns of pneumonia. At [facility], she was found to have new onset atrial fibrillation in the setting of foundsubsegmental bilateral pulmonary embolism, increasing pleural and pericardial effusions. CT PE alsosignificant for left apical mass which is markedly concerning for malignancy. There is diffuse lymphadenopathy within chest concerning for metastasis. She was transferred to [facility] for further evaluationby a interdisciplinary team Placed on Eliquis for the clot. Tolerating this well. She had some anemia and hyponatremia requiring f/u. She has Pet ct and MRI scheduled and is to see heme onc and thoracic medicine. DAUGHTER IS PRESENT. SHE HAS BEEN STAYING WITH EHR. EATING BETTER. 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 EXAM: CT PULMONARY EMBOLUS W CONTRAST DATE and TIME: 03/19/2023 3:49 pm HISTORY CLINICAL INFORMATION: elevated dimer, tachy, dyspnic TECHNIQUE CT of the chest with IV contrast COMPARISON Prior chest CT dated March 19, 2023 FINDINGS MEDIASTINUM AND PAUL: Diffuse lymphadenopathy, for example pretracheal lymph node measuring 18 x 16millimeters, concerning for neoplasm. Poorly defined left hilar mass measures approximately 36 x 36millimeters. The esophagus is decompressed. Visualized thyroid is unremarkable. HEART: There is a moderate pericardial effusion, increased in comparison to CT from March 12, 2023. Heart is enlarged.. LARGE AIRWAYS: Narrowing of airways supplying the left upper lobe for example on coronal image 55 secondary to poorly defined left hilar lymphadenopathy/mass. LUNGS: Left apical mass with spiculated margins measures approximately 54 x 35 millimeters, compatible with neoplasm. Multiple satellite nodules are present. Bilateral emphysema. Small left pleural effusion, increased in comparison to CT from March 12, 2023. New trace right pleural effusion. PLEURA: As above CHEST WALL/SOFT TISSUES: Poorly defined left axillary and retropectoral lymphadenopathy. LINES AND DEVICES: None BONES: Multilevel degenerative changes of the visualized spine. VESSELS: This exam is being performed for the evaluation of pulmonary embolus. The exam is technically adequate. Subsegmental pulmonary emboli within vessel supplying the lingula and right lower lobeare noted. Moderate atherosclerotic calcification of the thoracic aorta and coronary vasculature. UPPER ABDOMEN: Partially visualized 41 millimeter left renal cyst. IMPRESSION IMPRESSION 1. Subsegmental bilateral pulmonary emboli. 2. Fluid overload as evidence by developing/increasing pleural effusions and pericardial effusion. 3. Left apical mass which is markedly concerning for malignancy. Multiple satellite nodules concerning for metastasis. 4. Diffuse lymphadenopathy within the chest (including hilar mediastinal axillary and retropectoral) concerning for metastasis. A. Lymph Node, 4R, Right Paratracheal, EBUS [...] within a lymphoid background with bronchial contamination. at 1432 Cytology Diagnostic Comment The findings in both A and B are similar. Immunohistochemical stains were performed with adequate controls on block B1 and show that the tumor cells are positive for CK7, while negative for TTF1 and p40. There is weak/patchy synaptophysin staining. 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 Molecular testing and PD-L1 will be performed on block A1 and results will follow in an addendum. Clinical and radiological correlation is essential. Past Medical History: Diagnosis Date Diffuse cystic mastopathy Diffuse cystic mastopathy Nonallopathic lesion of lumbar region 01/2006 Nonallopathic lesion of thoracic region 01/2006 Osteoarthrosis, pelvic region and thigh [address] Eller Osteoporosis update DEXA Swelling, mass, or lump in head and neck 10/2009 benign Tobacco use disorder ,h Extensive ROS Constitutional (f/c/wt/vision/hearing): Negative Resp (cough/sob/garcia): see above hpi CV (cp/palp/fluttering/diaphoresis/garcia/pnd):see above hpi GI (n/v/d/hrtburn): Negative and a biyt sluggish,. Some rifting Endo (hair/cold or heat intol/ 3 p's): Negative Neuro (shaking/weak/fatigu/parasthesi/): Negative Skin (rash/easy bruis/xerosis): Negative Psy (si/hi/halluc/): Negative (nocturia/hesit/drib/sexual review): Negative Lymph (swollen glands/b sx's/: Negative Physical Exam Vitals: 03/25/23 1336 Temp: 36.9 C (98.4 F) Pulse: 81 Resp: 16 SpO2: 95% BP: 110/62 BMI: 18.96 BP Readings from Last 3 Encounters: 03/25/23 110/62 03/21/23 104/57 03/19/23 106/55 Wt Readings from Last 3 Encounters: 03/25/23 48.5 kg (107 lb) 03/20/23 49.3 kg (108 lb 11.2 oz) 03/09/23 48.1 kg (106 lb) BMI Readings from Last 3 Encounters: 03/25/23 18.95 kg/m 03/20/23 19.26 kg/m 03/09/23 18.78 kg/m Ht Readings from Last 3 Encounters: 03/25/23 1.6 m (5' 3") 03/20/23 1.6 m (5' 3") 11/17/22 1.6 m (5' 3") General: alert, healthy and no distress Head: Normocephalic, No masses, lesions, tenderness or abnormalities Eye Exam: PERRLA, extraocular movements intact, conjunctiva are pink and non- injected, sclera clear Ears: External ears normal, Canals clear, TM's Normal Nose: no mucosal erythema, no mucosal edema, no purulent discharge Oropharynx: no exudate, no erythema, lips, buccal mucosa, and tongue normal and mucous membranes are moist Neck: supple, no adenopathy, no bruits, thyroid normal size, non-tender, without nodularity Heart: regular rate & rhythm, no murmur, no gallops, S-1 normal and S-2 normal Lungs: chest symmetric with normal AP diameter, no chest deformities noted, no chest wall tenderness, lungs clear to auscultation Abdomen: abdomen soft, non-tender, normal bowel sounds and no masses or organomegaly Back: back symmetric, no curvature, no costovertebral angle tenderness, range of motion is normal Extremities: less than 2 second capillary refill, no joint deformities, effusion, or inflammation Skin: skin color, texture, turgor are normal, no rashes or significant lesions Assessment and Plan Anemia, unspecified type (Primary) - CBC WITH WBC DIFFERENTIAL AND ANEMIA REFLEX WORKUP; Future; Expected date: 2023 - FERRITIN; Future; Expected date: 2023 HTN, goal below 140/90 - BASIC METABOLIC PANEL; Future; Expected date: 2023 Mass of upper lobe of left lung - HEMATOLOGY/ONCOLOGY REFERRAL OP - PULMONARY REFERRAL OP Generalized weakness - improved The patient is asked to make an attempt to improve diet and exercise patterns to aid in medical management of this problem. Lung mass - HEMATOLOGY/ONCOLOGY REFERRAL OP - PULMONARY REFERRAL OP Hyponatremia - BASIC METABOLIC PANEL; Future; Expected date: 2023 Pericardial effusion - ECHO, COMPLETE (2D), TRANS-THORACIC; Future; Expected date: 2023 Pleural effusion - ECHO, COMPLETE (2D), TRANS-THORACIC; Future; Expected date: 2023 Wrap-Up Rev ed / hd notes Labs due imaging is scheduled Add echo Consider cardiology Time: I spent a total of 40-54 minutes (exact time 42 mins) on the date of service in preparation, delivery, and documentation of the care provided to Reba Delaney excluding any time spent in the performance of separately billed services. Farhana Doll PA-C 2023 2:13 PM documented in this encounter Nursing Notes * Jahaira Clark LPN - 2023 1:36 PM EDT The patient has been properly identified by confirmation of name and date of . Chief Complaint Patient presents with NEW PATIENT Here to establish [facility] d/c appointment. [facility] d/c 03/21/23. documented in this encounter Plan of Treatment Upcoming Encounters Date Type Specialty Care Team Description 2023 Laboratory Laboratory [place], [facility] [address] [place] [address] HTN, goal below 140/90; Hyponatremia; Anemia, unspecified type 03/29/2023 Appointment Radiology 03/30/2023 Office Visit Hematology Oncology Traci Mitchell MD [address] [place] [address] 03/31/2023 Appointment Radiology 04/05/2023 Office Visit Pulmonary Alaniz, Komal Menchaca MD [address] [place] [address] Pending Results Name Type Priority Associated Diagnoses Date /Time BASIC METABOLIC PANEL Lab Routine HTN, goal below 140/90 Hyponatremia 2023 2:27 PM EDT CBC WITH WBC DIFFERENTIAL AND ANEMIA REFLEX WORKUP Lab Routine Anemia, unspecified type 2023 2:27 PM EDT FERRITIN Lab Routine Anemia, unspecified type 2023 2:27 PM EDT Scheduled Orders Name Type Priority Associated Diagnoses Orde r Schedule BASIC METABOLIC PANEL Lab Routine HTN, goal below 140/90 Hyponatremia Expected: 2023 (Approximate), Expires: 03/24/2024 CBC WITH WBC DIFFERENTIAL AND ANEMIA REFLEX WORKUP Lab Routine Anemia, unspecified type Expected: 2023 (Approximate), Expires: 2024 FERRITIN Lab Routine Anemia, unspecified type Expected: 2023 (Approximate), Expires: 03/24/2024 ECHO, COMPLETE (2D), TRANS-THORACIC Echocardiology Routine Pericardial effusion Pleural effusion Expected: 2023, Expires: 2024 Scheduled Referrals Name Type Priority Associated Diagnoses Orde r Schedule HEMATOLOGY/ONCOLOGY REFERRAL OP Referral Within 30 days (routine) Mass of upper lobe of left lung Lung mass Ordered: 2023 PULMONARY REFERRAL OP Referral Within 30 days (routine) Mass of upper lobe of left lung Lung mass Ordered: 2023 Health Maintenance Due Date Last Done Comments [...] as of this encounter Visit Diagnoses Diagnosis Anemia, unspecified type- Primary HTN, goal below 140/90 Unspecified essential hypertension Mass of upper lobe of left lung Generalized weakness Other malaise and fatigue Lung mass Swelling, mass, or lump in chest Hyponatremia Hyposmolality and/or hyponatremia Pericardial effusion Unspecified disease of pericardium Pleural effusion Unspecified pleural effusion HTN, goal below 140/90 Unspecified essential hypertension Hyponatremia Hyposmolality and/or hyponatremia Anemia, unspecified type documented in this encounter Advance Directives Documents on File Type Date Recorded Patient Larriman Helper Expl anation Advance Directives and Living Will 06/24/2022 ADVANCE DIRECTIVE / LIVING WILL Power of Warehouse Shift Supervisor 06/24/2022 POWER OF A TTORNEY Latest Code Status on File Code Status Date Activated Date Inactivated Comments No Code 03/20/2023 1:42 AM 03/21/2023 5:59 PM This order reflects the patients wishes and were consensually agreed upon. Question Answer Comments Discussion of Advance Directives occurred with: Patient Care Teams Salvage Engineering Technician Relationship Specialty Start Date End Date Gabby Balderas DO [address] [place] [address] PCP - General Family Medicine 03/25/23 documented as of this encounter
--- OUTSIDE RECORDS SUMMARY | 2023-07-05 14:50 | External Medical Summary | Summary of Care ---
Author Name Unknown Organization [facility] Address [address] [place] [address] Phone [phone] Care Team Providers Care Mental Health Practitioner Name Role Phone Gabby Balderas Zofia NAIK Primary Care Provider [phone] Reason for Referral * Precert (Within 10 days (routine)) - Authorized Specialty Diagnoses / Procedures Referred By Lubna guidry Referred To Contact Radiology Diagnoses Mass of upper lobe of left lung Procedures MRI BRAIN W WO CONTRAST Traci Mitchell MD [address] [place] [address] Referral ID Status Reason Start Date Expiration Date V isits Requested Visits Authorized [id number] Authorized 03/21/2023 999 999 Reason for Visit * Precert (Within 10 days (routine)) - Authorized Specialty Diagnoses / Procedures Referred By Lubna guidry Referred To Contact Radiology Diagnoses Mass of upper lobe of left lung Procedures MRI BRAIN W WO CONTRAST Traci Mitchell MD [address] [place] [address] Referral ID Status Reason Start Date Expiration Date V isits Requested Visits Authorized [id number] Authorized 03/21/2023 999 999 Encounter Details Date Type Department Care Team Description 03/31/2023 Hospital Encounter Radiology, [address] [address] Arrived Allergies No known active allergiesdocumented as of this encounter (statuses as of 04/01/2023) Medications Medication Sig Dispensed Refills Start Date [...] as of this encounter (statuses as of 04/01/2023) Active Problems Problem Noted Date Primary cancer [...] as of this encounter (statuses as of 04/01/2023) Resolved Problems Problem Noted Date Resolved Date Encounter for examination fo r normal comparison and control in clinical research program 11/21/2017 06/01/2020 Overview: [facility] DET[facility] Study: Project # [id number], Manager Retail Store: Khadar Dodd, PhD. SUMMARY: Goal: Establish test [...] study staff at ; after hours Manager Retail Store via the [facility] wad compressor operator adjuster . Please contact study team before resolving/deleting from patients problem list. Study phone number: [phone]. Diagnosis changed due to Research Module. Go to Snapshot for study details. Encounter for examination fo r normal comparison and control in clinical research program 11/21/2017 06/30/2022 Overview: DO NOT DELETE [facility] DETECT Study: Project # [id number], Manager Retail Store: Mykel Gill, MS, MPH. SUMMARY: Goal: Establish [...] study staff at ; after hours Manager Retail Store via the [facility] wad compressor operator adjuster . - Please contact study team before resolving/deleting from patients problem list. Study phone number: [phone]. Diagnosis changed due to Research Module. Go to Snapshot for study details. documented as of this encounter (statuses as of 04/01/2023) Immunizations Name Administration Dates Next Due Covid-19 [...] Pulmonary Alaniz, Komal MD Bernarda [address] [place] [address] 04/12/2023 Laboratory Laboratory [place] [address] [place] [address] 04/12/2023 Office Visit Hematology Oncology Traci Mitchell MD [address] [place] [address] 04/12/2023 Immunization/Injection Hematology Oncolog y Nurse, Med [address] [place] [address] 05/01/2023 Office Visit Family Medicine Gabby Balderas DO [address] [place] [address] Pending Results Name Type Priority Associated Diagnoses Date /Time MRI BRAIN W WO CONTRAST Medical Imaging Routine Mass of upper lobe of left lung 03/31/2023 11:12 AM EDT Scheduled Orders Name Type Priority Associated Diagnoses Orde r Schedule MRI BRAIN W WO CONTRAST Medical Imaging Routine Mass of upper lobe of left lung 1 Occurrences starting 03/31/2023 until 03/31/2023 Health Maintenance Due Date Last Done Comments [...] as of this encounter Visit Diagnoses Diagnosis Mass of upper lobe of left lung documented in this encounter Administered Medications Inactive Administered Medications - up to 3 most recent administrations Medication Order MAR Action Action Date Dose Rate Site gadobutrol (Gadavist) inj 4.7 mL 4.7 mL (rounded from 4.71 mL = 0.1 mL/kg 47.1 kg), Intravenous, ONCE, On Mon03/31/23 at 1101, For 1 dose, Radiology Medication Routing (Non-IR) Given 03/31/2023 10:59 AM EDT 4.7 mL documented in this encounter Advance Directives Documents on File Type Date Recorded Patient Manager Of Internal Expl anation Advance Directives and Living Will 06/24/2022 ADVANCE DIRECTIVE / LIVING WILL Power of Potato Chip Cooker Machine 06/24/2022 POWER OF A TTORNEY Latest Code Status on File Code Status Date Activated Date Inactivated Comments No Code 03/20/2023 1:42 AM 03/21/2023 5:59 PM This order reflects the patients wishes and were consensually agreed upon. Question Answer Comments Discussion of Advance Directives occurred with: Patient Care Teams Mental Health Practitioner Relationship Specialty Start Date End Date Gabby Balderas DO [address] [place] [address] PCP - General Family Medicine 03/25/23 documented as of this encounter
--- OUTSIDE RECORDS SUMMARY | 2023-07-05 14:50 | External Medical Summary | Summary of Care ---
Author Name Unknown Organization [facility] Address [address] [facility] [address] Phone [phone] Care Team Providers Care Semi Conductor Assembler Name Role Phone Gabby Balderas DO Primary Care Provider [phone] Reason for Visit * Reason Comments Nutritional Services Documentation Encounter Details Date Type Department Care Team Description 04/04/2023 Nutrition Services Nutrition Services Ia [address] [facility] [place] [address] Chey Beyer, RDN [address] [employer] [place] [address] Allergies No known active allergiesdocumented as of [...] DELETE [facility] DETECT Study: Project # [id number], Ammunition Officer: Khadar Dodd, PhD. SUMMARY: Goal: Establish test [...] contact study staff at ; after hours Ammunition Officer via the [facility] hospital multiple slide operator . Please contact study team before resolving/deleting from patients problem list. Study phone number: [phone]. Diagnosis changed due to Research Module. Go to Snapshot for study details. Encounter for examination fo r normal comparison and control in clinical research program 11/21/2017 06/30/2022 Overview: DO NOT DELETE - [facility] DETECT Study: Project # [id number], Ammunition Officer: Mykel Gill, MS, MPH. SUMMARY: Goal: Establish [...] contact study staff at ; after hours Ammunition Officer via the [facility] hospital multiple slide operator . - Please contact study team before resolving/deleting from patients problem list. Study phone number: [phone]. Diagnosis changed due to Research Module. Go [...] as of this encounter Progress Notes * Chey Beyer RDN - 04/04/2023 1:37 PM EDT Patient assessed with severe malnutrition during recent inpatient stay. Patient contacted via telephone to discuss current nutritional risk. Spoke with patient daughter/caregiver, Erin. IVELISSEN discussed current nutritional status, outpatient nutritional goals, the importance of nutrition in improving health, and the availability of dietitian services as an outpatient. Patient declined services atthis time. Patient sent "Take Charge of your Nutrition" brochure via postal mail. documented in this encounter Plan of Treatment Upcoming Encounters Date Type Specialty Care Team Description 04/12/2023 Laboratory Laboratory [place], [place] [facility] [address] [place] [address] 04/12/2023 Office Visit Hematology Oncology Traci Mitchell MD [address] [facility] [place] [address] 04/12/2023 Immunization/Injection Hematology Oncolog y Nurse, Med 4 [address] [place] [address] 05/01/2023 Office Visit Family Medicine Gabby Balderas DO [address] [place] [address] Health Maintenance Due Date Last Done Comments [...] Documents on File Type Date Recorded Patient Control Valve Technician Expl anation Advance Directives and Living Will 06/24/2022 ADVANCE DIRECTIVE / LIVING WILL Power of Software Sales 06/24/2022 POWER OF A TTORNEY Latest Code Status on File Code Status Date Activated Date Inactivated Comments No Code 03/20/2023 1:42 AM 03/21/2023 5:59 PM This order reflects the patients wishes and were consensually agreed upon. Question Answer Comments Discussion of Advance Directives occurred with: Patient Care Teams Semi Conductor Assembler Relationship Specialty Start Date End Date Gabby Balderas DO [address] [place] [address] PCP - General Family Medicine 03/25/23 documented as of this encounter
--- OUTSIDE RECORDS SUMMARY | 2023-07-05 14:51 | External Medical Summary ---
Author Name Unknown Address Unknown Organization K01:[facility] [place] [address] [facility] [place] [address] Laboratory Report Ordering Provider Test Date Status JACKIE ASHTON 2023 14:27:23 Final Observation Date Value Abnormality Reference (Units ) Status SYNC LEUKOCYTES IN BLOOD BY AUTOMATED COUNT 2023 14:27:23 10.06 4.00-10.80 (K/uL) Final Segs 2023 14:27:23 60.9 40.0-75.0 (%) Final Lymphs % 2023 14:27:23 24.7 18.0-42.0 (%) Final Monos 2023 14:27:23 11.3 Above high normal 1.0-11.0 (%) Final Eosinophils 2023 14:27:23 2.0 0.0-6.0 (%) Final Basos 2023 14:27:23 0.4 0.0-2.0 (%) Final Immature Granulocyte, Percent 2023 14:27:23 0.7 0.0-2.0 (%) Final Absolute Segs 2023 14:27:23 6.13 1.80-7.70 (K/uL) Final Lymphs, absolute 2023 14:27:23 2.48 1.00-4.80 (K/ul) Final Monos, Abs 2023 14:27:23 1.14 Above high normal 0.00-1.10 (K/uL) Final Eos, Abs 2023 14:27:23 0.20 0.00-0.70 (K/uL) Final Basos, Abs 2023 14::23 0.04 0.00-0.20 (K/uL) Final Immature Granulocytes, Number 2023 14:27:23 0.07 0.00-0.20 (K/uL) Final Performing Location [facility] [place] [facility] [place] [address]
--- OUTSIDE RECORDS SUMMARY | 2023-07-05 14:51 | External Medical Summary | Summary of Care ---
Author Name Unknown Organization [facility] Address [address] [place] [address] Phone [phone] Care Team Providers Care Enrolled Agent Name Role Phone Jamie Wynn DO Primary Care Provider Reason for Visit * Reason Onset Date Comments Test Results Biopsy 03/22/2023 Encounter Details Date Type Department Care Team Description 03/22/2023 Telephone [facility] [place] [address] [place] [id number] Jamie Wynn DO [address] [facility] [place] [address] Test Results Biopsy Allergies No known active allergiesdocumented as of this encounter (statuses as of 03/22/2023) Medications Medication Sig Dispensed Refills Start Date [...] as of this encounter (statuses as of 03/22/2023) Active Problems Problem Noted Date Generalized weakness [...] as of this encounter (statuses as of 03/22/2023) Resolved Problems Problem Noted Date Resolved Date Encounter for examination fo r normal comparison and control in clinical research program 11/21/2017 06/01/2020 Overview: DO NOT DELETE [facility] DETECT Study: Project # [id number], Pearl Diver: Khadar Dodd, PhD. SUMMARY: Goal: Establish test [...] contact study staff at ; after hours Pearl Diver via the [facility] gang drill press operator . Please contact study team before resolving/deleting from patients problem list. Study phone number: [phone]. Diagnosis changed due to Research Module. Go to Snapshot for study details. Encounter for examination fo r normal comparison and control in clinical research program 11/21/2017 06/30/2022 Overview: DO NOT DELETE - [facility] Study: Project # [id number], Pearl Diver: Mykel Gill, MS, MPH. SUMMARY: Goal: Establish [...] contact study staff at ; after hours Pearl Diver via the [facility] gang drill press operator . - Please contact study team before resolving/deleting from patients problem list. Study phone number: [phone]. Diagnosis changed due to Research Module. Go to [employer] for study details. 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 and will follow up with Hematology-Oncology on March 30 for further recommendations, they had no further questions at this time, Thanks, rp documented in this encounter Plan of Treatment Upcoming Encounters Date Type Specialty Care Team Description 03/23/2023 Office Visit Family Medicine Gabby Balderas DO [address] [place] [address] 03/29/2023 Appointment Radiology 03/30/2023 Office Visit Hematology Oncology Traci Mitchell MD [address] [place] [address] 03/31/2023 Appointment Radiology 04/05/2023 Office Visit Pulmonary Alaniz, Komal Menchaca MD [address] [place] [address] Health Maintenance Due Date Last Done Comments [...] Documents on File Type Date Recorded Patient Conservation Planner Expl anation Advance Directives and Living Will 06/24/2022 ADVANCE DIRECTIVE / LIVING WILL Power of Credit Manager 06/24/2022 POWER OF A TTORNEY Latest Code Status on File Code Status Date Activated Date Inactivated Comments No Code 03/20/2023 1:42 AM 03/21/2023 5:59 PM This order reflects the patients wishes and were consensually agreed upon. Question Answer Comments Discussion of Advance Directives occurred with: Patient Care Teams Enrolled Agent Relationship Specialty Start Date End Date Jamie Wynn, [address] [place] [address] PCP - General Family Medicine 08/08/16 documented as of this encounter
--- OUTSIDE RECORDS SUMMARY | 2023-07-05 14:51 | External Medical Summary ---
Author Name Unknown Address Unknown Organization K01:[facility] [place] - [facility] [address] [facility] [address] [facility] [address] Laboratory Report Ordering Provider Test Date Status JACKIE ASHTON 2023 14:27:23 Final Observation Date Value Abnormality Reference (Units ) Status Retic, % (auto) 2023 14:27:23 1.81 0.80-1.90 (%) Final Reticulocytes, Absolute 2023 14:27:23 67.5 31.3-100.1 (K/uL) Final Reticulocyte fraction, immature 2023 14:27:23 17.4 2.5-20.6 (%) Final Reticulocyte HGB 2023 14:27:23 26.8 Below low normal 29.7-37.4 (pg) Final Performing Location [facility] [place] - [address] [facility] [address]
--- OUTSIDE RECORDS SUMMARY | 2023-07-05 14:51 | External Medical Summary | Summary of Care ---
Author Name Unknown Organization [facility] Address [address] [facility] [address] Phone [phone] Care Team Providers Care Territory Sales Consultant Name Role Phone Jamie Wynn DO Primary Care Provider Reason for Visit * Reason Onset Date Comments Follow Up 03/21/2023 Encounter Details Date Type Department Care Team Description 03/21/2023 Telephone [facility] [place] [address] [place] [address] Jamie Wynn DO [address] [place] [address] Follow Up Allergies No known active allergiesdocumented [...] [facility] DETECT Study: Project # [id number], Insurance Claims Adjuster: Khadar Dodd, PhD. SUMMARY: Goal: Establish test [...] contact study staff at ; after hours Insurance Claims Adjuster via the [facility] hospital pipeline operator . Please contact study team before resolving/deleting from patients problem list. Study phone number: [phone]. Diagnosis changed due to Research Module. Go to [employer] for study details. Encounter for examination fo r normal comparison and control in clinical research program 11/21/2017 06/30/2022 Overview: DO NOT DELETE - [facility] Study: Project # [id number], Insurance Claims Adjuster: Mykel Gill, MS, MPH. SUMMARY: Goal: Establish [...] contact study staff at ; after hours Insurance Claims Adjuster via the [facility] pipeline operator . - Please contact study team before resolving/deleting from patients problem list. Study phone number: [phone]. Diagnosis changed due to Research Module. Go to [employer] for study details. documented as of this [...] Encounter - Jamie Wynn DO - 03/22/2023 1:49 PM EDT Message sent on my G about medicine for pain, thanks, rp * Telephone Encounter - Jamie Wynn DO - 03/21/2023 2:21 PM EDT Was recently discharged from the hospital, pathology reports are not back yet from lung biopsy, hasa follow-up here on March 30, at the clinic, please let us know if any worsening problems before March 30, then would need to be seen seen sooner here at the [facility], thanks, rp documented in this encounter Plan of Treatment Upcoming Encounters Date Type Specialty Care Team Description 03/23/2023 Office Visit Family Medicine Gabby Balderas DO [address] [place] [address] 03/29/2023 Appointment Radiology 03/30/2023 Office Visit Family Medicine Zofia Woodward CRNP [address] [place] [address] 03/30/2023 Office Visit Hematology Oncology Traci Mitchell MD [address] [place] [address] 03/31/2023 Appointment Radiology 04/05/2023 Office Visit Pulmonary Alaniz, Komal Menchaca MD [address] [place] [address] 08/31/2023 Office Visit Family Medicine Zofia Woodward CRNP [address] [place] [address] Health Maintenance Due Date Last Done Comments [...] Documents on File Type Date Recorded Patient Shoe Turner Expl anation Advance Directives and Living Will 06/24/2022 ADVANCE DIRECTIVE / LIVING WILL Power of Guest Experience Specialist 06/24/2022 POWER OF A TTORNEY Latest Code Status on File Code Status Date Activated Date Inactivated Comments No Code 03/20/2023 1:42 AM 03/21/2023 5:59 PM This order reflects the patients wishes and were consensually agreed upon. Question Answer Comments Discussion of Advance Directives occurred with: Patient Care Teams Territory Sales Consultant Relationship Specialty Start Date End Date Jamie Wynn DO [address] [place] [address] PCP - General Family Medicine 08/08/16 documented as of this encounter
--- OUTSIDE RECORDS SUMMARY | 2023-07-05 14:51 | External Medical Summary | Summary of Care ---
Author Name Unknown Organization [facility] Address [address] [place] [address] Phone [phone] Care Team Providers Care Recording Studio Set Up Worker Name Role Phone Jamie Wynn DO Primary Care Provider [phone] Reason for Visit * Reason Onset Date Comments STAIR Lung Nodule 03/24/2023 Encounter Details Date Type Department Care Team Description 03/24/2023 Telephone [facility] LUNG NODULE [address] [place] [address] Geraldine Camara, DAVID [address] [place] [address] STAIR Lung Nodule Allergies No known active allergiesdocumented as of this encounter (statuses as of 03/24/2023) Medications Medication Sig Dispensed Refills Start Date [...] as of this encounter (statuses as of 03/24/2023) Active Problems Problem Noted Date Generalized weakness [...] as of this encounter (statuses as of 03/24/2023) Resolved Problems Problem Noted Date Resolved Date Encounter for examination fo r normal comparison and control in clinical research program 11/21/2017 06/01/2020 Overview: DO NOT DELETE [facility] DETECT Study: Project # [id number], Fusion Operator: Khadar Dodd, PhD. SUMMARY: Goal: Establish [...] contact study staff at ; after hours Fusion Operator via the [facility] pin feather machine operator . Please contact study team before resolving/deleting from patients problem list. Study phone number: [phone]. Diagnosis changed due to Research Module. Go to Badge for study details. Encounter for examination fo r normal comparison and control in clinical research program 11/21/2017 06/30/2022 Overview: DO NOT DELETE - [facility] Study: Project # [id number], Fusion Operator: Mykel Gill, MS, MPH. SUMMARY: Goal: [...] contact study staff at ; after hours Fusion Operator via the [facility] pin feather machine operator . - Please contact study team before resolving/deleting from patients problem list. Study phone number: [phone]. Diagnosis changed due to Research Module. Go to Badge for study details. documented as of this encounter (statuses as of 03/24/2023) Immunizations Name Administration Dates Next Due Covid-19 [...] encounter Miscellaneous Notes * Telephone Encounter - Karina Dallas LPN - 03/24/2023 2:59 PM EDT Jamie Wynn, DO - for your review. An important pulmonary nodule finding was noted. The follow-up Care Plan is PET and Hem/onc appointment. The STAIR Team will manage this lung nodule and take care of any ordering/scheduling. Lung Nodule Referral Triaging - Communication to Patient Patient contacted, recommendations reviewed, patient agrees, appointments scheduled/coordinated. Appointments already scheduled. Time spent: 10 minutes Karina Dallas LPN Coordinator STAIR (System to Track Abnormalities of Importance Reliably) [phone] Patient disenrolled from STAIR Program for Pulmonary Nodule - banner removed * Telephone Encounter - DAVID Arndt - 03/24/2023 2:37 PM EDT Lung Nodule Provider Review - Follow-up Clinical Summary: Reviewed below 77 year-old F, active smoker Bronchoscopy 03/20/2023 A. Lymph Node, 4R, Right Paratracheal, EBUS [...] within a lymphoid background with bronchial contamination. 1. Pulmonary Nodule Care Plan: Other - details below Details: PCP discussed results with patient/family. Oncology referral and PET CT ordered. 2. Non-Pulmonary Nodule Incidental Finding: N/A 3. Patient contacted to review recommendations and next steps: No, discussed with PCP 4. Message forwarded to NORA Pool. 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, favoring Adenocarcinoma with some neuroendocrine features DAVID Arndt STAMAL (System to Track Abnormalities of Importance Reliably) documented in this encounter Plan of Treatment Upcoming Encounters Date Type Specialty Care Team Description 2023 Office Visit Family Medicine Farhana Doll PA-C [address] [place] [address] 03/29/2023 Appointment Radiology 03/30/2023 Office Visit Hematology Oncology Traci Mitchell MD [address] [place] [address] 03/31/2023 Appointment Radiology 04/05/2023 Office Visit Pulmonary Alaniz, Komal Menchaca MD [address] [place] [address] Health Maintenance Due Date Last [...] Documents on File Type Date Recorded Patient Animal Nutritionist Expl anation Advance Directives and Living Will 06/24/2022 ADVANCE DIRECTIVE / LIVING WILL Power of Political Consultant 06/24/2022 POWER OF A TTORNEY Latest Code Status on File Code Status Date Activated Date Inactivated Comments No Code 03/20/2023 1:42 AM 03/21/2023 5:59 PM This order reflects the patients wishes and were consensually agreed upon. Question Answer Comments Discussion of Advance Directives occurred with: Patient Care Teams Recording Studio Set Up Worker Relationship Specialty Start Date End Date Jamie Wynn, [address] [place] [address] PCP - General Family Medicine 08/08/16 documented as of this encounter
--- OUTSIDE RECORDS SUMMARY | 2023-07-05 14:51 | External Medical Summary | Summary of Care ---
Author Name Unknown Organization [facility] Address [address] [place] [address] Phone [phone] Care Team Providers Care Bobbin Hauler Name Role Phone Jamie Wynn DO Primary Care Provider [phone] Reason for Visit * Reason Onset Date Comments Appointment 03/13/2023 Colonoscopy/uppe r endoscopy Encounter Details Date Type Department Care Team Description 03/13/2023 Telephone Gastroenterology, [place] [address] [place] [address] Specified, Z No Resource [address] [place] [address] Appointment (Colonoscopy/upper endoscopy) Allergies No known active allergiesdocumented as of this encounter (statuses as of 03/23/2023) Medications Medication Sig Dispensed Refills Start Date End Date Status Vitamin D 25 MCG (1000 UT) Oral Tablet Take 1 Tablet by mouth in the morning. 0 Active documented as of this encounter (statuses as of 03/23/2023) Active Problems Problem Noted Date Generalized weakness [...] as of this encounter (statuses as of 03/23/2023) Resolved Problems Problem Noted Date Resolved Date Encounter for examination fo r normal comparison and control in clinical research program 11/21/2017 06/01/2020 Overview: DO NOT DELETE [facility] DETECT Study: Project # [id number], Tool Chaser: Khadar Dodd, PhD. 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 Please contact study team before resolving/deleting from patients problem list. Study phone number: [phone]. Diagnosis changed due to Research Module. Go to Snapshot for study details. Encounter for examination fo r normal comparison and control in clinical research program 11/21/2017 06/30/2022 Overview: DO NOT DELETE - [facility] DETECT Study: Project # [id number], Tool Chaser: Mykel Gill, MS, MPH. SUMMARY: Goal: Establish [...] contact study staff at ; after hours Tool Chaser via the [facility] [place] [facility] [place] . - Please contact study team before resolving/deleting from patients problem list. Study phone number: [phone]. Diagnosis changed due to Research Module. Go to Snapshot for study details. documented as of this encounter (statuses as of 03/23/2023) Immunizations Name Administration Dates Next Due Covid-19 Ad26, Single Dose (Pierce/J&J) 022 Pneumococcal Polysaccharide PPV23 (Pneumovax) TD - Tetanus/Diptheria (ADULT) 08/18/2006 TD, Preservative Free 07/20/2022 TDAP (age 11 and older)(Adacel) 08/18/2006 Zoster Vaccine Recombinant (Shingrix) 08/25/2022 documented as of this encounter Social History Tobacco Use Types Packs/Day Years Used Date Smoking Tobacco: Every Day Cigarettes 0.5 30 Smokeless Tobacco: Never Alcohol Use Standard Drinks/Week [...] you have serious difficulty h earing? No 09/02/2021 Are you blind or do you have serious difficulty seeing, even when wearing glasses? No 09/02/2021 Do you have serious difficul ty walking or climbing stairs? (5 years old or older) No 09/02/2021 Do you have difficulty dress ing or bathing? (5 years old or older) No 09/02/2021 Because of a physical, menta l, or emotional condition, do you have difficulty doing errands alone such as visiting a doctor s office or shopping? (15 years old or older) No 09/02/20 Cognitive Status Response Date of Assessm ent Because of a physical, menta l, or emotional condition, do you have serious difficulty concentrating, remembering, or making decisions? (5 years old or older No 09/02/2021 documented as of this encounter Miscellaneous Notes * Telephone Encounter - KRISTA Guardado - 03/23/2023 11:13 AM EDT Letter sent * Telephone Encounter - KRISTA Guardado - 03/23/2023 11:13 AM EDT I left a message on patients answer machine to call back and schedule an appointment. * Telephone Encounter - KRISTA Viera - 03/14/2023 2:37 PM EDT Left message on machine for pt to call back to schedule. Liane * Telephone Encounter - KRISTA Guardado - 03/13/2023 10:43 AM EDT Referral COLONOSCOPY, GI REFERRAL OP [[id number]] (Order [id number]) Currently Active Insurance Payor Plan Subscriber Member ID MEDICARE MEDICARE A AND B REBA GONZALEZ [id number] [facility] ([facility]) [facility] FEDERAL EMPLOYEE PROGRAM REBA GONZALEZ [id number] PCP Information Primary Care Provider Jamie Wynn DO Order Information Date Department Ordering/Authorizing 03/12/2023 Rhiannon, DAVID Olivera Order Providers Authorizing Provider Encounter Provider DAVID Lind CRNP Supervision Information Encounter Supervising Provider Type of Supervision Jamie Wynn DO General Referral (Authorized) ID: [id number] Created on: 03/12/2023 Referred by Referred to DAVID Lind Gastroenterology Reason: Ancillary Services Required Priority: Within 10 days (routine) Type: Ancillary Services Visits Requested: 999 Decision Date: 03/12/2023 Start Date: 03/12/2023 Related Appointments None Associated Diagnoses Loss of weight [R63.4] - Primary Gastroesophageal reflux disease, unspecified whether esophagitis present [K21.9] Anemia, unspecified type [D64.9] Comments ALERT: Do not order for pediatric patients (18 years or younger). Cancel off screen and order PEDS GASTROENTEROLOGY CONSULT (Type: 1 visit only-Evaluate and Treat) The following Pt. Instructions are available: - Gastro Colonoscopy Prep Instructions [19914] - Gastro Colonoscopy Prep Instructions (Swazi Version) [76600] Go to the Pt. Instructions section within the Visit Navigator to access. Colonoscopy ASGE Guidelines: Iron deficiency anemia ADDITIONAL INFORMATION 1. Is the patient on Coumadin? No 2. Is the patient on Pradaxa? No Status History Encounter View Encounter Order Questions Question Answer Referral Priority Within 10 days (routine) Encounter View Encounter THIS REFERRAL HAS BEEN ELECTRONICALLY SIGNED * Administrative Questions: [phone] or [id number] Reprint Requisition COLONOSCOPY, GI REFERRAL OP (Order #[id number]) on 03/12/23 * Telephone Encounter - KRISTA Guardado - 03/13/2023 10:43 AM EDT Referral UPPER ENDOSCOPY GI REFERRAL OP [[id number]] (Order [id number]) Currently Active Insurance Payor Plan Subscriber Member ID MEDICARE MEDICARE A AND B REBA GONZALEZ [id number] [facility] FEDERAL EMPLOYEE PROGRAM REBA GONZALEZ [id number] PCP Information Primary Care Provider Jamie Wynn DO Order Information Date Department Ordering/Authorizing 03/12/2023 Power Jurado CRNP Order Providers Authorizing Provider Encounter Provider DAVID Lind CRNP Supervision Information Encounter Supervising Provider Type of Supervision Jamie Wynn DO General Referral (Authorized) ID: [id number] Created on: 03/12/2023 Referred by Referred to DAVID Lind Gastroenterology Reason: Ancillary Services Required Priority: Within 10 days (routine) Type: Ancillary Services Visits Requested: 999 Decision Date: 03/12/2023 Start Date: 03/12/2023 Related Appointments None Associated Diagnoses Loss of weight [R63.4] - Primary Gastroesophageal reflux disease, unspecified whether esophagitis present [K21.9] Anemia, unspecified type [D64.9] Comments Upper Endoscopy ASGE Guidelines other Anemia, GERD, weight loss ADDITIONAL INFORMATION 1. Is the patient on Coumadin? No 2. Is the patient on Pradaxa? No Status History Encounter View Encounter Order Questions Question Answer Referral Priority Within 10 days (routine) Encounter View Encounter THIS REFERRAL HAS BEEN ELECTRONICALLY SIGNED * Administrative Questions: [phone] or [phone] Reprint Requisition UPPER ENDOSCOPY GI REFERRAL OP (Order #[id number]) on 03/12/23 documented in this encounter Plan of Treatment Upcoming Encounters Date Type Specialty Care Team Description 2023 Office Visit Family Medicine Farhana Doll PA-C [address] [place], [place] [id number] 03/29/2023 Appointment Radiology 03/30/2023 Office Visit Hematology Oncology Traci Mitchell MD [address] [facility] [id number] 03/31/2023 Appointment Radiology 04/05/2023 Office Visit Pulmonary Alaniz, Komal Menchaca MD [address] [place] [address] Health Maintenance Due Date Last Done Comments [...] Not on filedocumented as of this encounter Additional Health Concerns Infection Onset Date Last Indicated Resolved Time Respiratory Rule-Out 03/19/2023 03/19/2023 023 3:06 PM EDT COVID-19 Rule-Out 03/19/2023 03/19/2023 03/19/2023 3:06 PM EDT documented as of this encounter Advance Directives Documents on File Type Date Recorded Patient Shoulder Joiner Expl anation Advance Directives and Living Will 06/24/2022 ADVANCE DIRECTIVE / LIVING WILL Power of Explosive Operator Fuse 06/24/2022 POWER OF A TTORNEY Latest Code Status on File Code Status Date Activated Date Inactivated Comments No Code 03/20/2023 1:42 AM 03/21/2023 5:59 PM This order reflects the patients wishes and were consensually agreed upon. Question Answer Comments Discussion of Advance Directives occurred with: Patient Care Teams Bobbin Hauler Relationship Specialty Start Date End Date Jamie Wynn, [address] [facility] [place] [phone] PCP - General Family Medicine 08/08/16 documented as of this encounter
--- OUTSIDE RECORDS SUMMARY | 2023-07-05 14:51 | External Medical Summary ---
Author Name Unknown Address Unknown Organization K01:[facility] [place] [facility] [address] [facility] [address] Laboratory Report Ordering Provider Test Date Status POLICECYMELLY 2023 14:27:23 Final Observation Date Value Abnormality Reference (Units ) Status BUN 2023 14:27:23 13 6-20 (mg/dL) Final Creatinine 2023 14:27:23 0.8 0.5-1.0 (mg/dL) Final Glomerular filtration rate/1.73 sq M.predicted [Volume Rate/Area] in Serum, Plasma or Blood by Creatinine-based formula (CKD-EPI) 2023 14:27:23 79 >=60 (mL/min) Final [facility]forming Location [facility] [address] [facility] [address]
--- OUTSIDE RECORDS SUMMARY | 2023-07-05 14:51 | External Medical Summary ---
Author Name Unknown Address Unknown Organization K01:[facility] - [address] [place] [address] Laboratory Report Ordering Provider Test Date Status JACKIE ASHTON 2023 14:27:23 Final Observation Date Value Abnormality Reference (Units ) Status Ferritin 2023 14:27:23 401 Above high normal 13 -150 (ng/mL) Final Performing Location [facility] - [address] [place] [address]
--- OUTSIDE RECORDS SUMMARY | 2023-07-05 14:51 | External Medical Summary | Summary of Care ---
Author Name Unknown Organization [facility] Address [address] [place] [address] Phone [phone] Care Team Providers Care Full Stack Engineer Name Role Phone Jamie Wynn DO Primary Care Provider [phone] Reason for Visit * Auth/Cert Specialty Diagnoses / Procedures Referred By Contac t Referred To Contact Diagnoses shortness of breath, new atrial fibrillation, pericardial effusion Referral ID Status Reason Start Date Expiration Date Visits Re quested Visits Authorized [id number] Encounter Details Date Type Department Care Team Description 03/20/2023 - 03/21/2023 Hospital Encounter [id number] [facility], [facility] [address]TH FLOOR [address] [place], [place] [id number] Nancy Goel DO [address] [place], [place] [id number] Jaquan Cohen MD [address] [place], [place] [id number] Various: SIGIFREDO DEAN Allergies No known active allergiesdocumented as of [...] symptoms. 30 Tablet 0 03/21/2023 04/20/2023 Active Amoxicillin-Pot Clavulanate 875-125 MG Oral Tablet Take 1 Tablet by mouth in the morning and 1 Tablet before bedtime. 20 Tablet 0 03/17/2023 03/21/2023 Discontinued documented as of this encounter (statuses [...] DO NOT DELETE [facility] Study: Project # [id number], Remedial Project Manager: Khadar Dodd, PhD. SUMMARY: Goal: Establish [...] contact study staff at ; after hours Remedial Project Manager via the [facility] hospital substation operator automatic . Please contact study team before resolving/deleting from patients problem list. Study phone number: [phone]. Diagnosis changed due to Research Module. Go to Snapshot for study details. Encounter for examination fo r normal comparison and control in clinical research program 11/21/2017 06/30/2022 Overview: DO NOT DELETE - REVShare DETECT Study: Project # [id number], Remedial Project Manager: Mykel Gill, MS, MPH. SUMMARY: Goal: [...] contact study staff at ; after hours Remedial Project Manager via the [facility] hospital substation operator automatic . - Please contact study team before resolving/deleting from patients problem list. Study phone number: [phone]. Diagnosis changed due to Research Module. Go [...] Sign Reading Time Taken Comments Blood Pressure 104/57 03/21/2023 11:26 AM EDT Pulse 92 03/21/2023 11:26 AM EDT Temperature 37 C (98.6 F) 03/21/2023 11: 26 AM EDT Respiratory Rate 18 03/21/2023 11:2 6 AM EDT Oxygen Saturation 99% 03/21/2023 11: 26 AM EDT Inhaled Oxygen Concentration - - Weight 49.3 kg (108 lb 11.2 oz) 023 12:18 AM EDT Height 160 cm (5' 3") 03/20/2023 12:18 AM EDT Body Mass Index 19.26 03/20/2023 12:18 AM EDT documented in this encounter Functional [...] No 03/20/2023 documented as of this encounter Discharge Summaries * Reji Oconnor DMD - 03/21/2023 6:16 AM EDT Images from the original note were not included. [address] [address] Admission Date: 03/20/2023 Discharge Date: 03/21/2023 RECOMMENDED TO DO FOR NEXT PROVIDER(S): Follow up on cytology results from biopsy performed 03/20/23 Coordinate additional testing/imaging as listed below (MRI brain, PET-CT) Follow up on BMP, CBC to be drawn in 1 week Continue multidisciplinary care with thoracic medicine and medical oncology as appropriate. REASON(S) FOR MEDICATION CHANGE(S): START taking: Apixaban (Eliquis), this is because you were diagnosed with clots in your lungs (pulmonary emboli) and had new onset arrhythmia (atrial fibrillation) Start taking on: March 21, 2023 Famotidine (Pepcid), this may be used along with omeprazole to help with your reflux, as needed STOP taking: amoxicillin-clavulanate 875-125 MG per Tablet (Augmentin), as you have no further indication to continue antibiotics DISPOSITION ON DISCHARGE: home Active Hospital Problems Diagnosis *Principal Diagnosis - Lung mass Generalized weakness Bilateral pulmonary embolism (HCC) Hyponatremia New onset atrial fibrillation (HCC) Severe protein-energy malnutrition (HCC) Tobacco use disorder Resolved Hospital Problems No resolved problems to display. ADMISSION HISTORY & PHYSICAL EXAM (focused): PRESENTING PROBLEM: Lung mass HPI: Reba Gonzalez is a 77 yo F with history of 52 pack year history of tobacco use. Denies any further history or medications. She presented to [facility] for progressive generalized weakness for 3 days duration. Notable, she was seen by PCP for flu like symptoms in which and xray was preformed, finding a lung opacity requiring CT imaging for further evaluation. CT imaging was concerning for neoplasm upon discovery of irregularlyshaped mass- like structure in the left upper lobe. She was scheduled for a diagnostic bronchoscopy with biopsy of said lesion. She was placed on augmentin by PCP due to concerns of pneumonia, possibly obstructive. At [facility], she was found to have new onset atrial fibrillation in the setting of foundsubsegmental bilateral pulmonary embolism, increasing pleural and pericardial effusions. CT PE alsosignificant for left apical mass which is markedly concerning for malignancy. There is diffuse lymphadenopathy within chest concerning for metastasis. She was transferred to [facility] for further evaluation by a interdisciplinary team. She was loaded with Heparin and given 500 cc of NS prior to transfer. At bedside, she was sleeping comfortably. She was able to recount the history written above and is understanding of why she is here. She does not feel ill and in fact just the opposite compared to when she arrived at [facility]. She endorses taking antibiotics. She has not had a cough or shortness of breath. She lives at home alone and at baseline does all ADL's. She has two adult children that live in [place]. Per chart review and per patient, her daughter is heavily involved in her care and aware of testresults from PCP work up. She states she quit smoking 2 weeks ago. Her appetite has been fairly poor recently and has noticed some weight loss. On ROS she mentions dark stools that started after taking iron supplementation. She was found to be anemic on blood work from 03/11 with an iron level of 13. We discussed CODE status and she explains that she has a living will and she does not wish to have CPR or intubation. She wishes to be NO CODE. Subjective Patient's past history, medications, and allergies were reviewed. Objective Physical Exam Most Recent Vital Signs: BP: 133 mmHg/63 mmHg (03/20/2317) Pulse: 94 (03/20/2317) Temp: 37.78 C (03/20/2317) Resp: 18 (03/20/2317) SpO2: 98 % (03/20/2317) on RA PHYSICAL EXAM General: Very pleasant female, resting comfortably prior to my arrival, not on supplemental oxygen HEENT: Sclera white, extraocular muscles intact, oral mucosa pink and moist, missing front teeth but has dentures Neck: supple Cardiovascular: Regular rate and rhythm, S1 and S2 present, no murmurs on auscultation Respiratory: poor airway entry throughout lung burton, some slight crackling heard at the base of bilateral lungs, good inspiratory effort Abdomen: Soft, non-tender, non-distended, normal bowel sounds Musculoskeletal: Normal muscle tone Extremities: trace to none lower extremity edema bilaterally, able to move all extremities spontaneously, 2+ pulses Neuro: no focal deficits, good preventive medicine physician strength Skin: No rashes, no skin lesions HOSPITAL COURSE (focused): Patient was transferred from [facility] with progressive weakness for further interdisciplinary management. She is with known left apical lung mass suspicious for malignancy. Further work up demonstrated patient had bilateral subsegmental pulmonary emboli and was started on heparin gtt prior to transfer. She was also found to be in Afib with RVR which reverted spontaneously with IV fluids prior to transfer. Thoracic medicine was consulted for evaluation for bronchoscopy/endobronchial ultrasound. This was performed on 03/20/23 without complication. Rapid On-Site Evaluation for preliminary cytology was suggestive of malignancy in the right and left lower paratracheal regions, pending final results. Patient was transitioned from heparin gtt to Eliquis upon discharge. Operations & Procedures: 03/20/23: Bronchoscopy (Endobronchial Ultrasound) with Biopsy Complications: none applicable Significant Lab and Imaging Results: As mentioned above Results Pending at Discharge: Yes, cytology from needle aspiration for 4R/4L lymph nodes during bronchoscopy. Lab Results Pending at Discharge: MYCODE INITIAL ADULT Routine HEPARIN, UNFRACTIONATED Routine CBC STAT PT INR Routine BASIC METABOLIC PANEL Routine MEDICATION UPDATES AT DISCHARGE START taking these medications INSTRUCTIONS Apixaban 5 MG Tablet Commonly known as: Eliquis Start taking on: March 21, 2023 Take 2 Tablets (10 mg) by mouth 2 times a day for 7 days, THEN take 1 tablet (5 mg) 2 times a day for 21 days. Famotidine 20 MG Tablet Commonly known as: Pepcid Take 1 Tablet by mouth daily at bedtime as needed for heartburn/reflux symptoms. CONTINUE taking these medications INSTRUCTIONS omeprazole 20 MG Cpdr Commonly known as: PriLOSEC Take 1 Capsule by mouth in the morning. 1 hour before the first meal of the day. Vitamin D 25 MCG (1000 UT) Tabs Take 1 Tablet by mouth in the morning. Vitron-C 65-125 MG Tablet Generic drug: Iron-Vitamin C 65-125 mg per tab Take 1 Tablet by mouth in the morning and 1 Tablet before bedtime. For iron supplement, generic, take with food. STOP taking these medications amoxicillin-clavulanate 875-125 MG per Tablet Commonly known as: Augmentin SCHEDULED FOLLOW-UP: Future Appointments Appt Date/Time Provider Department 03/29/2023 12:00 PM PET1 [facility] PET CT IMAGING, [facility] 03/30/2023 8:40 AM DAVID Heller [facility] 03/31/2023 10:30 AM 2 [facility] Radiology, [facility] 04/05/2023 2:20 PM Komal Alaniz MD Pulmonary Medicine, [place] 08/31/2023 10:40 AM DAVID Heller [facility] Outpatient Follow Up Basic Metabolic Panel CBC Other Information Indwelling Devices: LINES ALL Duration Peripheral Line Left;Lower 20 Gauge 1 day Peripheral Line Lower;Posterior;Right Arm 22 Gauge <1 day Vital Signs (last recorded): Most Recent Systolic BP: 104 mmHg (03/21/23 112) Most Recent Diastolic BP: 57 mmHg (03/21/23 1126) Pulse: 92 (03/21/23 112) Resp: 18 (03/21/23 112) Most Recent Temperature: 37 C (03/21/23 112) Weight: 49.3 kg (108 lb 11.2 oz) (03/20/23 0018) SpO2: 99 % (03/21/23 112) O2 flow rate: 0 L/MIN (03/21/23 1126) Allergies: Patient has no known allergies. Discharge Physical Exam: General: NAD HEENT: normocephalic, atraumatic, non-icteric sclera, moist mucous membranes Neck: supple, no JVD Heart: RRR, no murmur Lungs: normal effort, CTA bilaterally, no wheezes, no crackles Abdomen: soft, nondistended, nontender Extremities: no LE edema bilaterally, intact peripheral pulses Skin: warm, dry, intact, no rashes, no skin lesions Neurologic: AAOx3, no focal deficits, following commands, moving all extremities spontaneously, answering questions appropriately Psych: normal affect Activity: as tolerated Diet: age appropriate diet, increase protein intake; Encourage use of protein supplements. Code status (this admission): No Code Discussion of adv directives occurred with - adult: Patient Condition on Discharge: stable Isolation status: None Cognition: normal Laboratory Values: reviewed. -- Brief labs below include the 7 most recent results over the past week. Blood Gas: No results in the last 7 days - inpatent use only Chemistry Panel: Lab results within last 7 days (see chart for full results) Units 03/21/23 0657 03/20/23 1150 03/20/2315603/19/23 1404 Sodium mmol/L 129* 129* 130* 126* Potassium mmol/L 4.2 4.6 4.2 4.5 Chloride mmol/L 96* 98 96* 92* CO2 mmol/L 23 21* 22 17* BUN mg/dL 12 14 17 16 Creatinine mg/dL 0.8 0.7 0.9 0.9 Estimated Glomerular Filtration Rate mL/min 78 90 70 67 Glucose mg/dL 105 93 105 146* Calcium mg/dL 8.6 8.7 8.6 8.9 Magnesium mg/dL -- -- 2.0 2.0 Phosphorus mg/dL -- -- 3.3 3.8 Anion Gap mmol/L 10 10 12 17* Complete Blood Count: Lab results within last 7 days (see chart for full results) Units 03/21/23 0657 03/20/23 1153 03/20/23 0157 03/19/23200703/19/23 1404 WBC K/uL 11.43* 13.95* 13.33* 15.19* 20.50* HGB g/dL 9.2* 9.1* 10.1* 10.3* 12.2 HCT % 28.3* 27.9* 30.4* 31.4* 36.2 PLT K/uL 522* 545* 611* 584* 678* MCV fL 80.6 80.2 80.0 78.7 79.4 Cardiac Studies: Lab results within last 7 days (see chart for full results) Units 03/19/23 1718 03/19/23 1404 Troponin T, High Sensitivity ng/L 15* 17* BNP, NT-Pro pg/mL -- 6,947* Coagulation Studies: Lab results within last 7 days (see chart for full results) Units 03/21/23 0657 03/20/23 2318 03/20/23171403/20/23 0733 03/20/23 0157 03/19/23200703/19/23 1404 Prothrombin Time seconds 15.7* -- -- -- 16.4* 16.5* -- INR 1.2 -- -- -- 1.3* 1.3* -- aPTT seconds -- -- -- -- 34 36 -- Heparin, Unfractionated IU/mL 0.14* <0.10 <0.10 <0.10 <0.10 <0.10 -- D-Dimer ug/mL FEU -- -- -- -- -- -- 7.87* Liver Function Panel: Lab results within last 7 days (see chart for full results) Units 03/19/23 1404 Albumin g/dL 2.6* Protein g/dL 8.2 Bilirubin, Total mg/dL 0.5 AST U/L 24 ALT U/L 20 Alkaline Phosphatase U/L 98 Infectious Studies: Lab results within last 7 days (see chart for full results) Units 03/19/23 1718 03/19/23 1410 03/19/23 1404 Lactate mmol/L 1.8 -- 2.5* Procalcitonin ng/mL -- 0.49* -- Cultures: reviewed. Lab results within last 7 days (see chart for full results) Units 03/19/23 1405 Coronavirus SARS-CoV-2 by PCR Negative Recent Cultures (2 Weeks) 03/19/2023 03/19/2023 2:17 PM 2:10 PM BLOOD CULTURE GROWTH No growth to date No growth to date Radiographic Studies (last 72 hours): reviewed. CT PULMONARY EMBOLUS W CONTRAST Result Date: 03/19/2023 IMPRESSION 1. Subsegmental bilateral pulmonary emboli. 2. Fluid overload as evidence by developing/increasing pleural effusions and pericardial effusion. 3. Left apical mass which is markedly concerning for malignancy. Multiple satellite nodules concerning for metastasis. 4. Diffuse lymphadenopathywithin the chest (including hilar mediastinal axillary and retropectoral) concerning for metastasis. Critical Result: The information above was relayed directly by me by telephone to Curry BONDS 03/19/2023 at 6:40 pm who expressed understanding. XR CHEST 2 VIEWS Result Date: 03/19/2023 IMPRESSION 1. Mild CHF. 2. Left apical mass remains concerning for malignancy. Additional suspicious findings were better evaluated on CT from March 02, 2023. Correlation with tissue sampling is recommended when clinically appropriate. HOSPITAL CONSULTS ORDERED: ADULT PHYSICAL THERAPY CONSULT IP ADULT OCCUPATIONAL THERAPY CONSULT IP REFERRING PHYSICIAN: Ref: KELLY BONDS[[id number]] [address] [facility] [place] [phone] (office) [phone] (fax) PRIMARY CARE PROVIDER: PCP: Jamie Wynn DO [address] [facility] / [place] [phone] (office) [phone] (fax) Note: To contact a physician responsible for this patients hospital care, please call [employer] [phone]. Associated attestation - Jaquan Cohen MD - 03/21/2023 2:48 PM EDT I saw and evaluated the patient today. I have reviewed the trainee note and agree. Medically stable for discharge. Patient's family and patient aware of the diagnosis of malignancy and pulmonary embolism in will have close outpatient follow-up once biopsy results are available. documented in this encounter Discharge Instructions * Discharge Instr - AVS* Reji Oconnor DMD - 03/20/2023 4:41 PM EDT Discharge Date: 03/21/2023 The information below provides you with the instructions and the list of medications you need to betaking following discharge from the hospital. If you have any questions, please ask before leaving. If you have questions after leaving, you can reach us at the numbers below. YOUR HOSPITAL PROVIDERS: Discharging Provider: [place] Reji Neal DMD Provider Department: Hospital Medicine To reach this Provider Monday through Monday (8:00 AM to 4:30 PM) for any questions or test results: Call [phone] For after-hours concerns: Call [phone] and have your provider paged, or the provider senior environmental engineer for the Department of Hospital Medicine paged. Please note, the discharging provider will not be able to provide you with any medications refills.Please discuss these with your primary care provider. Worsening Symptoms: If you have new symptoms, or your symptoms get worse, please contact your Discharge Provider or Primary Care Provider (PCP). If these providers are not available, you can go to your [facility] during their business hours. In an EMERGENCY situation: Call [phone] or go to the nearest emergency room. Medications: START taking: Apixaban (Eliquis), this is because you were diagnosed with clots in your lungs (pulmonary emboli) and had new onset arrhythmia (atrial fibrillation) Start taking on: March 21, 2023 Famotidine (Pepcid), this may be used along with omeprazole to help with your reflux, as needed STOP taking: amoxicillin-clavulanate 875-125 MG per Tablet (Augmentin), as you have no further indication to continue antibiotics Review your ACTIVE MEDICATION LIST below for a complete list of your medications. MEDICATION UPDATES AT DISCHARGE START taking these medications INSTRUCTIONS Apixaban 5 MG Tablet Commonly known as: Eliquis Start taking on: March 21, 2023 Take 2 Tablets (10 mg) by mouth 2 times a day for 7 days, THEN take 1 tablet (5 mg) 2 times a day for 21 days. Famotidine 20 MG Tablet Commonly known as: Pepcid Take 1 Tablet by mouth at bedtime as needed for Other (heartburn/reflux symptoms). CONTINUE taking these medications INSTRUCTIONS omeprazole 20 MG Cpdr Commonly known as: PriLOSEC Take 1 Capsule by mouth in the morning. 1 hour before the first meal of the day. Vitamin D 25 MCG (1000 UT) Tabs Take 1 Tablet by mouth in the morning. Vitron-C 65-125 MG Tablet Generic drug: Iron-Vitamin C 65-125 mg per tab Take 1 Tablet by mouth in the morning and 1 Tablet before bedtime. For iron supplement, generic, take with food. STOP taking these medications amoxicillin-clavulanate 875-125 MG per Tablet Commonly known as: Augmentin A BRIEF SUMMARY OF YOUR HOSPITAL STAY: You came to the hospital with: complaint of worsening weakness. You were found to be in Atrial fibrillation with rapid ventricular rate. You were also found to have bilateral pulmonary emboli (clots in your lungs). You were started on heparin to treat the pulmonary emboli. Thoracic medicine was consulted for evaluation of lung mass and lymphadenopathy. They performed a bronchoscopy with biopsy with preliminary findings suspicious for malignancy. You were also transitioned from intravenous heparin to oral anticoagulant, eliquis. You remained in sinus rhythm and were deemed stable for dischargewith appropriate outpatient testing and follow up. Your main diagnosis at discharge was: Lung mass of left apex; New onset Atrial Fibrillation; Bilateral Pulmonary Emboli Operations & Procedures performed: 03/20/23: Bronchoscopy (Endobronchial Ultrasound) with Biopsy Complications: none applicable Inpatient test results that are pending at discharge: Yes, cytology from needle aspiration for 4R/4L lymph nodes during bronchoscopy. You or your doctor will be contacted if there are significant abnormalities with these tests. Advance Directive Documented: Advance Directive Does the Patient have an Advance Directive? Yes YOUR FOLLOW UP APPOINTMENTS: Primary Care Provider Information: PCP: Jamie Wynn DO [address] [facility] / [place] [address] (office) [phone] (fax) An appointment was requested with your PCP (Jamie Wynn DO) within 7 days. (Please take this form to this visit with your primary care physician. If you choose to change providers, please take this with you.) An appointment was requested with pulmonology/thoracic medicine within 7-14 days. An appointment was requested with medical oncology within 7-14 days, to be scheduled. You need the following studies in the future: Labs: BMP, CBC in 1 week Imaging: MRI Brain, PET CT whole body as scheduled SCHEDULED FOLLOW-UP: Future Appointments Appt Date/Time Provider Department 03/29/2023 12:00 PM PET1 [facility] PET CT IMAGING, [facility] 03/30/2023 8:40 AM DAVID Heller [facility] [place] 03/31/2023 10:30 AM MR2 [facility] Radiology, [facility] 04/05/2023 2:20 PM [facility] 08/31/2023 10:40 AM DAVID Heller [facility] [place] INSTRUCTIONS: Diet: Normal diet, increase protein intake; Encourage use of protein supplements. Activity: No restrictions and As tolerated Additional Instructions: - Use caution when standing or walking since you are at an increased risk for falls - Take all medications as prescribed documented in this encounter Progress Notes * Reji Oconnor DMD - 03/20/2023 6:54 AM EDT PROGRESS NOTE - Resident - Medicine [facility]-[address] [address] Name: Reba Gonzalez Location: [facility] A575/B Date: 03/20/2023 Time: 6:55 AM Date of admission: 03/20/2023 Overnight: Transferred from [facility] to [facility] for multidisciplinary care. Found to be in Afib w/ RVR and was given 500ml fluid bolus and reverted to NSR. Started on heparin gtt. Today: No acute events. No complaints. Denies any chest pain, shortness of breath, fever, chills, nausea, vomiting, abdominal pain. NPO with plan for EBUS, bronchoscopy today. All systems were reviewed, all pertinent findings were documented in the HPI, otherwise negative. PHYSICAL EXAMINATION: Most Recent Vital Signs: BP: 115 mmHg/57 mmHg (03/20/23619) Pulse: 75 (03/20/23619) Temp: 37.72 C (03/20/23619) Resp: 17 (03/20/23619) SpO2: 98 % (03/20/23619) Intake/Output: Intake/Output Summary (Last 24 hours) at 03/20/2023 1530 Last data filed at 03/20/2023 0820 Gross per 24 hour Intake -- Output 200 ml Net -200 ml Weight: Patient Vitals for the past 72 hrs: Weight 03/20/23 0018 49.3 kg (108 lb 11.2 oz) General: NAD HEENT: normocephalic, atraumatic, non-icteric sclera, moist mucous membranes Neck: supple, no JVD Heart: RRR, no murmur Lungs: normal effort, CTA bilaterally, no wheezes, no crackles Abdomen: soft, nondistended, nontender Extremities: no LE edema bilaterally, intact peripheral pulses Skin: warm, dry, intact, no rashes, no skin lesions Neurologic: AAOx3, no focal deficits, following commands, moving all extremities spontaneously, answering questions appropriately Psych: normal affect Peripheral Line Left;Lower 20 Gauge (Active) Number of days: 1 Peripheral Line Lower;Right Antecubital 20 Gauge (Active) Number of days: 1 Laboratory Values: reviewed. -- Brief labs below include the 7 most recent results over the past week. Blood Gas: No results in the last 7 days - inpatent use only Chemistry Panel: Lab results within last 7 days (see chart for full results) Units 03/20/23 1150 03/20/23 0157 03/19/23 1404 Sodium mmol/L 129* 130* 126* Potassium mmol/L 4.6 4.2 4.5 Chloride mmol/L 98 96* 92* CO2 mmol/L 21* 22 17* BUN mg/dL 14 17 16 Creatinine mg/dL 0.7 0.9 0.9 Estimated Glomerular Filtration Rate mL/min 90 70 67 Glucose mg/dL 93 105 146* Calcium mg/dL 8.7 8.6 8.9 Magnesium mg/dL -- 2.0 2.0 Phosphorus mg/dL -- 3.3 3.8 Anion Gap mmol/L 10 12 17* Complete Blood Count: Lab results within last 7 days (see chart for full results) Units 03/20/23 1153 03/20/23 0157 03/19/23200703/19/23 1404 WBC K/uL 13.95* 13.33* 15.19* 20.50* HGB g/dL 9.1* 10.1* 10.3* 12.2 HCT % 27.9* 30.4* 31.4* 36.2 PLT K/uL 545* 611* 584* 678* MCV fL 80.2 80.0 78.7 79.4 Cardiac Studies: Lab results within last 7 days (see chart for full results) Units 03/19/23 1718 03/19/23 1404 Troponin T, High Sensitivity ng/L 15* 17* BNP, NT-Pro pg/mL -- 6,947* Coagulation Studies: Lab results within last 7 days (see chart for full results) Units 03/20/23 0733 03/20/23 0157 03/19/23200703/19/23 1404 Prothrombin Time seconds -- 16.4* 16.5* -- INR -- 1.3* 1.3* -- aPTT seconds -- 34 36 -- Heparin, Unfractionated IU/mL <0.10 <0.10 <0.10 -- D-Dimer ug/mL FEU -- -- -- 7.87* Liver Function Panel: Lab results within last 7 days (see chart for full results) Units 03/19/23 1404 Albumin g/dL 2.6* Protein g/dL 8.2 Bilirubin, Total mg/dL 0.5 AST U/L 24 ALT U/L 20 Alkaline Phosphatase U/L 98 Infectious Studies: Lab results within last 7 days (see chart for full results) Units 03/19/23 1718 03/19/23 1410 03/19/23 1404 Lactate mmol/L 1.8 -- 2.5* Procalcitonin ng/mL -- 0.49* -- Cultures: reviewed. Lab results within last 7 days (see chart for full results) Units 03/19/23 1405 Coronavirus SARS-CoV-2 by PCR Negative Recent Cultures (2 Weeks) 03/19/2023 03/19/2023 2:17 PM 2:10 PM BLOOD CULTURE GROWTH No growth to date No growth to date Radiographic Studies: reviewed. CT PULMONARY EMBOLUS W CONTRAST Result Date: 03/19/2023 IMPRESSION 1. Subsegmental bilateral pulmonary emboli. 2. Fluid overload as evidence by developing/increasing pleural effusions and pericardial effusion. 3. Left apical mass which is markedly concerning for malignancy. Multiple satellite nodules concerning for metastasis. 4. Diffuse lymphadenopathywithin the chest (including hilar mediastinal axillary and retropectoral) concerning for metastasis. Critical Result: The information above was relayed directly by me by telephone to Curry BONDS 03/19/2023 at 6:40 pm who expressed understanding. XR CHEST 2 VIEWS Result Date: 03/19/2023 IMPRESSION 1. Mild CHF. 2. Left apical mass remains concerning for malignancy. Additional suspicious findings were better evaluated on CT from March 02, 2023. Correlation with tissue sampling is recommended when clinically appropriate. IMPRESSION : Principal Problem: Lung mass POA: Unknown Active Problems: Tobacco use disorder POA: Yes Generalized weakness POA: Unknown Bilateral pulmonary embolism (HCC) POA: Unknown Hyponatremia POA: Unknown New onset atrial fibrillation (HCC) POA: Unknown Resolved Problems: * No resolved hospital problems. * POA = Present On Admission DIFFERENTIAL DIAGNOSIS AND PLAN OF CARE: Reba Gonzalez is a 77 year old female who presents with 3 day history of progressive weakness. Patient had recent PCP visit with finding on chest xray with lung opacity. Known 52 pack-year smoking history. Further investigation with CT imaging was suspicious for malignancy with left upper lobe mass and diffuse lymphadenopathy. Was also found to have new onset atrial fibrillation in the setting of found subsegmental bilateral pulmonary embolism with pleural and pericardial effusions. Left apical lung mass Regional lymphadenophaty Patient with 52 pack-year history. Underwent CXR and CT chest prior to admission with findings suspicious for malignant process. Patient was scheduled for EBUS Bronchoscopy 03/20 at outpatient. Will proceed with Dr. Graham today as inpatient. - proceed with EBUS, bronchoscopy today for tissue diagnosis - PET scheduled on 03/29 - MRI brain scheduled on 03/31 - follow up with med-onc as outpatient Bilateral subsegmental PE Likely provoked in the setting of possible lung malignancy. - Continue heparin gtt - Will transition to DOAC if no additional procedures; will likely be long-term given possible malignancy Afib with RVR-new Found to be in Afib with RVR at [facility] prior to transfer. Received 500ml NS bolus. Reverted back to NSR. Remains in NSR. Rates 90-95. - Continue heparin gtt as above - [id number] score of 5 points; indication to start anticoagulation - will transition to DOAC - will consider starting beta sandra Hyponatremia Sodium of 126 on admission. Possibly due to low solute intake with decreased appetite. Will continue to monitor. Serum qnc=342; Urine sodium=24; Urine oph=691. Less likely to be SIADH. 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 We will proceed with bronch+biopsy today as planned as mass is suspicious for malignancy and pathology results will dictate staging and course of treatment. Patient will also be maintained on heparin drip while inpatient until therapeutic and likely transitioned to DOAC. She appreciated the updates. Patient was discussed with Dr. Cohen, attending physician. Reji Oconnor DMD Associated attestation - Jaquan Cohen MD - 03/20/2023 5:52 PM EDT I saw and evaluated the patient today. I have reviewed the trainee note and agree. Awaiting biopsy today documented in this encounter H&P Notes * Dhruv Graham MD - 03/20/2023 3:11 PM EDT Endoscopy Pre-Procedure Assessment Name: Reba Gonzalez Date: 03/20/2023 Time: 3:11 PM Procedure(s): Endobronchial Ultrasound; with Indication(s) of DEBBIE mass; LAD Endoscopy Pre-Procedure Assessment: Prior to the procedure, the patient is identified. The patient's history, medications and allergieshave been reviewed. The patient is competent. The risks and benefits of the proposed procedure and the planned sedation have been discussed with the patient. All questions have been answered and informed consent for the procedure has been obtained. Prior to Admission medications Medication Sig Last Dose Discont. Amoxicillin-Pot Clavulanate 875-125 MG Oral Tablet Take 1 Tablet by mouth in the morning and 1 Tablet before bedtime. 03/19/2023 Omeprazole 20 MG Oral Capsule Delayed Release (PriLOSEC) Take 1 Capsule by mouth in the morning. 1 hour before the first meal of the day. 03/19/2023 Vitamin D 25 MCG (1000 UT) Oral Tablet Take 1 Tablet by mouth in the morning. Unknown Vitron-C 65-125 MG Oral Tablet (Iron-Vitamin C 65-125 mg per tab) Take 1 Tablet by mouth in the morning and 1 Tablet before bedtime. For iron supplement, generic, take with food. 03/18/2023 Review of patient's allergies indicates: No Known Allergies BP 113/76 | Pulse 93 | Temp 37.8 C (100 F) (Tympanic) | Resp 29 | Ht 1.6 m (5' 3") | Wt 49.3 kg(108 lb 11.2 oz) | SpO2 98% | BMI 19.26 kg/m | BSA 1.48 m Physical Exam: Mental Status Examination: alert and oriented. Airway Examination: normal oropharyngeal airway and neck mobility. Respiratory Examination: poor air movement. CV Examination: rrr, no murmurs, no S-3 or S-4. ASA Grade: II - A patient with mild systemic disease. Abdomen: negative This patient has undergone a preprocedural evaluation. A determination has been made to proceed with the planned procedure under [facility] procedural guidelines and the [facility] Non-Emergent, Elective Medical Services and Treatment Recommendations (published on 02-04-20). The community and hospital prevalence of COVID-19 has been discussed as well as this patient's specific risks associated with SARS-CoV-19 infection. Based upon the clinical acuity and patient-specific care considerations, this procedure is deemed a Tier I - High acuity treatment or service with immediate threat to life or threat of severe progressive disease. Lack of treatment or service would result in patient harm. After reviewing the risks and benefits, the patient is deemed in satisfactory condition to undergo the procedure. The anesthesia plan is to use general anesthesia. Dhruv Graham MD 03/20/2023 * Ana Nicole DO - 03/20/2023 12:32 AM EDT Images from the original note were not included. [facility] A575/B PRESENTING PROBLEM: Lung mass HPI: Reba Gonzalez is a 77 yo F with history of 52 pack year history of tobacco use. Denies any further history or medications. She presented to [facility] for progressive generalized weakness for 3 days duration. Notable, she was seen by PCP for flu like symptoms in which and xray was preformed, finding a lung opacity requiring CT imaging for further evaluation. CT imaging was concerning for neoplasm upon discovery of irregularlyshaped mass- like structure in the left upper lobe. She was scheduled for a diagnostic bronchoscopy with biopsy of said lesion. She was placed on augmentin by PCP due to concerns of pneumonia, possibly obstructive. At [facility], she was found to have new onset atrial fibrillation in the setting of foundsubsegmental bilateral pulmonary embolism, increasing pleural and pericardial effusions. CT PE alsosignificant for left apical mass which is markedly concerning for malignancy. There is diffuse lymphadenopathy within chest concerning for metastasis. She was transferred to [facility] for further evaluation by a interdisciplinary team. She was loaded with Heparin and given 500 cc of NS prior to transfer. At bedside, she was sleeping comfortably. She was able to recount the history written above and is understanding of why she is here. She does not feel ill and in fact just the opposite compared to when she arrived at [facility]. She endorses taking antibiotics. She has not had a cough or shortness of breath. She lives at home alone and at baseline does all ADL's. She has two adult children that live in [place]. Per chart review and per patient, her daughter is heavily involved in her care and aware of testresults from PCP work up. She states she quit smoking 2 weeks ago. Her appetite has been fairly poor recently and has noticed some weight loss. On ROS she mentions dark stools that started after taking iron supplementation. She was found to be anemic on blood work from 03/11 with an iron level of 13. We discussed CODE status and she explains that she has a living will and she does not wish to have CPR or intubation. She wishes to be NO CODE. Subjective Patient's past history, medications, and allergies were reviewed. Objective Physical Exam Most Recent Vital Signs: BP: 133 mmHg/63 mmHg (05/22/23 0018) Pulse: 94 (03/20/2317) Temp: 37.78 C (03/20/2317) Resp: 18 (03/20/2317) SpO2: 98 % (03/20/2317) on RA PHYSICAL EXAM General: Very pleasant female, resting comfortably prior to my arrival, not on supplemental oxygen HEENT: Sclera white, extraocular muscles intact, oral mucosa pink and moist, missing front teeth but has dentures Neck: supple Cardiovascular: Regular rate and rhythm, S1 and S2 present, no murmurs on auscultation Respiratory: poor airway entry throughout lung burton, some slight crackling heard at the base of bilateral lungs, good inspiratory effort Abdomen: Soft, non-tender, non-distended, normal bowel sounds Musculoskeletal: Normal muscle tone Extremities: trace to none lower extremity edema bilaterally, able to move all extremities spontaneously, 2+ pulses Neuro: no focal deficits, good preventive medicine physician strength Skin: No rashes, no skin lesions STUDIES: Labs and other studies reviewed with pertinent findings noted below: Blood cultures have shown no growth Leukocytosis of 20 K decreased to 15 K Lactate elevated at 2.5 cleared with 500 cc fluid to 1.8 D-dimer elevated at 7.87 proBNP elevated 6,947 Acute Hyponatremia at 126, kidney function normal RVP negative CT PE 03/19: Imaging significant for subsegmental bilateral pulmonary emboli, left-sided small pleural effusion a small pericardial effusion. Left apical mass suspicious for malignancy along with diffuse lymphadenopathy including hilar, mediastinal, axillary, and retropectoral. Assessment and Plan IMPRESSION: Principal Problem: Lung mass Active Problems: Tobacco use disorder Generalized weakness Bilateral pulmonary embolism (HCC) Hyponatremia New onset atrial fibrillation (HCC) Resolved Problems: * No resolved hospital problems. * DIFFERENTIAL AND PLAN: Reba Gonzalez is a 77 yo F with history of 52 pack year history of tobacco use presents to [facility] for further evaluation of suspicious lung mass. There was concern from [facility] of instability due to new onset atrial fibrillation and effusions found on imaging but on evaluation, she is HDS and not in distress. She is satting well on RA, without cough, SOB, or fever, less concerning for infectious process. She has been on antibiotics outpatient but do not believe she needs continued coverage as she is afebrile and leukocytosis is resolving without treatment, most likely a stress reaction. Apical lung mass, concerning for malignancy Left sided pleural effusion Generalized weakness and weight loss Leukocytosis - Reach out to pulmonary medicine AM about bronchoscopy - NPO except meds - pain management if needed - monitor for cough, fever, chest pain and add abx if patient decompensates Subsegmental bilateral pulmonary embolism Believe it is secondary to malignancy but could be more immobility due to progressive weakness. Hasnot had any recent surgeries. - Heparin Hyponatremia Na was within normal limits just 7 days ago and on prior lab work. This could be secondary to lung malignancy. Repeat BMP shows a sodium of 130 after fluid bolus. Will continue to monitor on BMP. - urine osmol, serum osmol, urine sodium New onset paroxysmal atrial fibrillation She has not reported having this happened to her before and upon her arrival to [facility], EKG shows NSR.After fluid bolus she seemed to spontaneously correct. Will continue to monitor on telemetry for now. Reflux: DX BOARD OPERATOR omeprazole 20 mg AM, famotidine HS 20 mg prn PHARMACOLOGIC VTE PROPHYLAXIS:hEParin CODE STATUS: No Code EXPECTED DISCHARGE DATE: No information available This patient was seen, examined and discussed with Dr. Nancy Valdez's at the time of admission. Associated attestation - Nancy Goel DO - 03/20/2023 5:41 PM EDT I saw and evaluated the patient today. I have reviewed the trainee note and agree. 77 yo F presenting to [facility] with two days of generalized weakness found to be in afib rvr w/ subsegmental bilateral pulmonary embolism, likely provoked in the setting of suspected underlying malingnacy. Patient spontaneous converted to NSR prior to transfer to [facility]. Heparin for PE. Will discuss timingof lung mass biopsy w/ pulm in the AM. documented in this encounter Procedure Notes * Jamie Wynn DO - 03/20/2023 2:53 PM EDTAssociated Order(s): BRONCHOSCOPY [facility] [address] Patient Name: Reba Gonzalez Procedure Date: 03/20/2023 2:53 PM Date of : 1945 Admit Type: Inpatient Note Status: Finalized Date of : 1945 Admit Type: Inpatient Age: 77 Room: 10 Gender: Female Note Status: Finalized Procedure: Bronchoscopy (EBUS) Indications: Left upper lobe mass, Hilar lymphadenopathy of the left side, Mediastinal adenopathy Providers: Dhruv Graham MD, James Fierro MD (Fellow) Referring MD: Sheila Andrade MD (Referring MD), Jamie Wynn DO (Referring MD), Jaquan Cohen (Referring MD) Medicines: General Anesthesia Complications: No immediate complications Procedure: Pre-Anesthesia Assessment: - The supervising physician was present for the entire procedure from scope insertion until scope withdrawal. - The heart rate, respiratory rate, oxygen saturations, blood pressure, adequacy of pulmonary ventilation, and response to care were monitored throughout the procedure. After obtaining informed consent, The procedure was accomplished without difficulty. The patient tolerated the procedure fairly well. the [id number]) was introduced through the mouth, via the endotracheal tube (the patient was intubated for the procedure) and advanced to the tracheobronchial tree. All instruments were visually inspected immediately before and after removal from the patient to ensure they are fully intact. Findings & Specimens: The endotracheal tube is in good position. The visualized portion of the trachea is of normal caliber. The juan manuel is sharp. The tracheobronchial tree was examined to at least the first subsegmental level. Bronchial mucosa and anatomy are normal; there are no endobronchial lesions, and no secretions. Lymph Nodes: An endobronchial ultrasound endoscope was utilized to systematically examine the right lower paratracheal region (level 4R) and left lower paratracheal region (level 4L) in order to assist with fine needle aspiration. An endobronchial ultrasound-guided transbronchial needle aspiration was performed using an Olympus ViziShot 2 22 gauge needle and sent for routine cytology. Specimens were obtained from the 4R (lower paratracheal) and 4L (lower paratracheal) lymph nodes. Five passes per node were performed. Rapid On-Site Evaluation (BERNADINE): Preliminary cytology was suggestive of malignancy (final results are pending) in the right lower paratracheal region (level 4R). Preliminary cytology was suggestive of malignancy (final results are pending) in the left lower paratracheal region (level 4L). The cytology specimen 4R was placed in Bottle A. The cytology specimen 4L was placed in Bottle B. Impression: - Left upper lobe mass - Hilar lymphadenopathy of the left side - Mediastinal adenopathy - The airway examination was normal. - Endobronchial ultrasound was performed. - A transbronchial needle aspiration was performed. - Rapid On-Site Evaluation (BERNADINE): Preliminary cytology was suggestive of malignancy in node level 4R and of malignancy in node level 4L (final results are pending). Recommendation: - Await cytology results. Dhruv Graham MD 03/20/2023 3:49:13 PM This report has been signed electronically. James Fierro MD 03/20/2023 3:48:59 PM documented in this encounter Consult Notes * Angi Dias OTR/L - 03/21/2023 10:30 AM EDTAssociated Order(s): ADULT OCCUPATIONAL THERAPY CONSULT IP GENERAL EVALUATION - Occupational Therapy [address] [id number] Name: Reba Gonzalez Location: [facility] A575/B Date: 03/21/2023 Time: 2:08 PM Reba Gonzalez is a 77 year old female. Patient Status: Inpatient Insurance: Payor: MEDICARE Plan: MEDICARE A AND B Product Type: *No Product type* Payor: [facility] ([facility] Plan: [facility] [employer] Product Type: *No Product type* Patient Seen: at bedside, nursing cleared patient for therapy Patient Identified By: Name, ID Band and Date Diagnosis: lung mass (03/21/23 103) Status of treatment: Evaluation completed (03/21/231029) Orders: OT evaluation and treatment (03/21/231029) Weight Bearing Status: Weight bearing as tolerated (03/21/23 103) Precautions: Safety;Falls (03/21/23 103) Total Treatment Time: 15 (03/21/23 103) Past Medical History: Past Medical History: Diagnosis Date Diffuse cystic mastopathy Diffuse cystic mastopathy Nonallopathic lesion of lumbar region 01/2006 Nonallopathic lesion of thoracic region 01/2006 Osteoarthrosis, pelvic region and thigh [address] Eller Osteoporosis update DEXA Swelling, mass, or lump in head and neck 10/2009 benign Tobacco use disorder Past Surgical History: Past Surgical History: Procedure Laterality Date BIOPSY OF BREAST, OPEN fibrocystic breast dz right ? BREAST LESION,OTHER,EXCISION Breast Excision, benign tumor/cyst fibrocystic breast dz. BX LYMPH NODE-SUPERFIC 10/2009 lymph node removal L neck PATH; BENIGN Otolaryngology [facility] Dr Rajput DENTAL SURGERY PROCEDURE NEC 2008 all teeth extracted REMOVAL OF PAROTID GLAND/TUMOR Left 11/17/2022 EXCISION PAROTID TOTAL WITH DISSECTION FACIAL NERVE performed by Sharon Miller MD at [facility] TOTAL HIP REPLACEMENT & PROSTHESIS 2006 Dr Eller Social History/Disposition Lives with: Alone (but will be staying with her daughter) (03/21/23 1030) Assistance available: Yes (03/21/23 1030) Dwelling type: Single story home (with basement) (03/21/23 1030) Entry steps: ("a couple") (03/21/23 1030) Inside steps: None (03/21/23 103) Bedroom location: 1st floor (03/21/23 1030) Bath location: 1st floor full bath (03/21/23 1030) Prior Level of Function Reported by: Patient (03/21/23 1030) Ambulation: Ambulatory without device (03/21/23 1030) Grooming: Independent (03/21/23 1030) Bathing: Independent (03/21/23 1030) Dressing: Independent (03/21/23 1030) Feeding: Independent (03/21/23 1030) Toileting: Independent (03/21/23 1030) Meal Prep: Independent (03/21/23 1030) Homemaking: Independent (03/21/23 1030) Shopping: Independent (03/21/23 1030) Medication Management: Independent (03/21/23 1030) Money Management: Independent (03/21/23 1030) Occupation/Leisure Skills: Retired (03/21/23 1030) Driving: Yes (03/21/231029) Durable Medical Equipment at home: Bedside commode (03/21/231029) Pain: No complaints of pain Observations Consciousness: Alert (03/21/231029) Orientation: Oriented times 4 (03/21/231029) Psychosocial: Patient can converse in a social setting;Patient can communicate basic needs (03/21/231029) Sitting posture: Forward head;Rounded shoulders (03/21/231029) Standing posture: Forward head;Rounded shoulders (03/21/231029) Safety awareness: The Patient verbalizes insight of current deficits.;The Patient demonstrates carryover of insight during functional tasks.;The Patient can communicate basic needs. (03/21/231029) Other Findings Endurance: Sitting tolerance;Standing tolerance;Good (03/21/231029) Light touch sensation: Intact (03/21/231029) Proprioception: Intact (03/21/231029) Coordination: Intact (03/21/231029) Tone: Normal tone (03/21/231029) Edema: No edema noted (03/21/231029) Current Functional Status: Bilateral Upper Extremity Range of Motion: WFL (03/21/231029) Strength Assessment: WNL (03/21/231029) Self Care Able to provide self care: Yes (03/21/231029) Feeding: Independent (03/21/231029) Grooming: Independent (simulate brushing hair) (03/21/231029) Dressing Upper Body: Independent (pull gown up over shoulders and reach behind simulate reaching for robe) (03/21/231029) Lower Body: Independent (alex pants) (03/21/231029) Bathing Upper Body: Independent (simulate task) (03/21/231029) Lower Body: Independent (simulate) (03/21/231029) Functional Ambulation Assistive Device: No device (03/21/231029) Distance in feet:: 250 (03/21/231029) Level of Assistance: Independent (03/21/231029) Bed Mobility Supine-Sit: Independent (03/21/231029) OT Transfers Sit-Stand: Independent (03/21/231029) Stand-Sit: Independent (03/21/231029) Balance Sit (Static): Good (03/21/231029) Sit (Dynamic): Good (03/21/231029) Stand (Static): Good (03/21/231029) Stand (Dynamic): Good (03/21/231029) Alarm Status Patient positioned in: Bed (sitting at the edge of the bed) (03/21/231029) With: Call elder in reach (03/21/231029) Patient and Family Goals: to get well Patient Education Education Topic: Role of OT;Plan of care goals (03/21/231029) Review of Precautions: Fall;Safety (03/21/231029) Method of Education: Verbalized to patient (03/21/231029) Education Provided to: Patient (03/21/231029) Response to Education: Receptive and agreeable to education (03/21/231029) Barriers to learning: None (03/21/231029) Preferred learning method: Combination (03/21/231029) Treatment Provided: Evaluation Low Complexity 15 minutes - 26254: Patient was cooperative, pleasant, motivated and alert during treatment session. Low complexity evaluation performed and no significant deficits were identified that result in activity limitation. The patient does not have any comorbidities that affect occupational performance. There were no modifications necessary to complete the evaluation. Deficits Requiring O.T. Treatment: Deficits requiring O.T. treatment needs: (n/a) (03/21/231029) Assessment: Patient is a 77 year old female admitted with a lung mass and presents at a level of independent in all areas of care and mobility with no device. Independent in all self care tasks and ambulated in the riggs with no device and no evidence of loss of balance. Would not benefit from further therapy services at this time. Please reconsult if change in status occurs Treatment Plan: Discontinue Occupational Therapy services Anticipated Frequency (on eval): (d/c OT) (03/21/231029) AM-PAC Help From Another Person Eating Meals: None (03/21/231029) Help From Another Person Taking Care of Personal Grooming: None (03/21/231029) Help From Another Person To Put On/Take Off Upper Body Clothing: None (03/21/231029) Help From Another Person To Put On/Take Off Lower Body Clothing: None (03/21/23 1030) Help From Another Person Toileting: None (03/21/23 1030) Help From Another Person Bathing: None (03/21/23 103) OT AM-PAC Score: 24 (03/21/23 1030) OT AM-PAC t-Scale Score: 57.54 (03/21/23 1030) HLM (Highest Level of Mobility) Goal: Level 6 walk 10 steps or more (03/21/23 0740) A portion of this AM-PAC assessment not scored based on functional assessment ; rather clinical decision making utilized based on current findings and/or prior level of function. Please refer to future AM-PAC calculations of functional ability as they become available. Angi Dias MS OTR/Laura Occupational Therapy [facility] 03/21/2023 2:10 PM * Nicki Fischer RDN - 03/20/2023 2:20 PM EDT CLINICAL NUTRITION CONSULT/PROGRESS NOTE [address] [address] Name: Reba Gonzalez Location: [facility] HF/Endo Date: 03/20/2023 Time: 10:30 AM How patient was identified (select 2): date and Name Discussed in interdisciplinary rounds: No Reba Gonzalez is a 77 year old female being seen for reduced dietary intake and significant unintentional weight loss Primary Diagnosis: Admitted with weakness x 3 days and lung mass Other pertinent information: Son at bedside.. 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 Usually eats 2 small meals daily and occasionally drinks a carnation instant breakfast or Boost.She started this after her last spring. Has some early satiety and taste changes. Son stated he visits her weekly and was concerned about weight changes and recent decrease PO intake. She thinks her UBW was 125 lbs last year. NUTRITION ASSESSMENT: Past medical/surgical history and medications reviewed. Food/Nutrition-Related History Diet: NPO Previously followed diet: regular Food Allergies/Intolerances: None known Adult Energy Intake: Less than 75% of estimated energy requirement for greater than 7 days (moderate, acute illness). Pertinent medications/vitamins/minerals/supplements: none Pertinent Biochemical Data: Latest Reference Range & Units 03/20/23 11:50 Sodium 135 - 146 mmol/L 129 (L) (L): Data is abnormally low Hyponatremia -monitor trends Nutrition-Focused Physical Findings: Appearance: Thin Respiratory support: None Nasal/Oral: Taste alterations Digestive: Early satiety Last Bowel Movement: 03/19/23 (per epic) (03/20/23 0820) Cognition: Awake, alert and Oriented Skin: Intact Nutrition Focused Physical Exam: NFPE completed on 03/20/23 Subcutaneous Fat Loss: Orbital fat pads: Moderate Buccal fat: Moderate Tricep: Severe Muscle Loss: Temples: Severe Clavicles: Severe Shoulders: Severe Interosseous: Moderate Quadriceps: Mild-moderate Calves: Mild-moderate Anthropometrics Measurements Height: 160 cm (5' 3") (03/20/2317) Admission weight: 49.3 kg Weight: 49.3 kg (108 lb 11.2 oz) (03/20/2317) BMI: 19.26 (03/20/2317) Usual Body Weight: per pt 125 lbs last year however wt trends do not show that Per EHR Wt Readings from Last 7 Encounters: 03/20/23 49.3 kg (108 lb 11.2 oz) 03/09/23 48.1 kg (106 lb) 11/17/22 50.3 kg (110 lb 12.8 oz) 06/14/22 51.7 kg (114 lb) 05/10/22 52.4 kg (115 lb 8 oz) 05/04/22 52.6 kg (116 lb) 11/04/21 54.7 kg (120 lb 11.2 oz) [place] weight: 55.6 kg [place] Weight Based on BMI: 21.7 Interpretation of Weight Change:No recent/significant weight change Weight Comment: since April 2022 Nutrition Prescription: Energy needs: 25-35 Kcal/kg Kcal/day: 6467-9665 Based on admission weight Protein needs: 1.2-1.3 gm/kg Protein: 59-64 g Based on admission weight Fluid needs: 25 ml/kg Fluid: 1233 ml/day Based on admission weight Malnutrition: Malnutrition Present: Yes (03/20/231432) Adult Malnutrition Classification: Severe (05/22/23 1433) Malnutrition Characteristics: Fat loss;Muscle loss;Inadequate energy intake (03/20/23 1433) Malnutrition Care Plan: Patient meets ASPEN/AND criteria for severe malnutrition. Patient is currently NPO secondary to tests. To follow for initiation of diet and/or implementationof appropriate malnutrition intervention per clinical guidelines. Should diet not be initiated in 3days, will consider enteral or parenteral nutrition. Dietitian Action: Upon diet advancement, will order/adjust oral nutrition supplement (03/20/23 1435) Boost Plus (1 cup provides 360 calories, 14 grams protein, 45 grams carbohydrate) daily NUTRITION DIAGNOSIS: Malnutrition severe related to acute illness or injury as evidenced by moderate- severe fat loss andmoderate-severe muscle loss. Goals: When diet advanced, Patient to consume greater than 50 % of daily meals and 75% of daily supplements within 5 days. NUTRITION INTERVENTION/PLAN: Continue to monitor NPO/clear liquid status Clinical Nutrition Recommendations: Diet: Advance diet when clinically feasible NUTRITION MONITORING AND EVALUATION: Nursing documentation flowsheets for percent meal intake Tolerance of supplement per patient/nursing report Lab values warranting change with MNT Weight for trends Plan follow-up: Will follow and adjust nutrition plan of care as medical condition requires. Please contact for change(s) in patient condition requiring earlier intervention. Nicki Fischer, MS, RD, LDN, FNKF Clinical Dietitian [facility] Extension: [id number] [address] Text documented in this encounter Nursing Notes * Janet Martinez RN - 03/21/2023 12:58 PM EDT NURSING DISCHARGE PROGRESS NOTE [address] [phone] Name: Reba Gonzalez Location: [facility] A575/B Date: 03/21/2023 Time: 12:59 PM The nursing measures listed below are those which were carried out while the patient was at the facility noted above and are not to be interpreted as physician orders for extended care. ACCOMPANIED BY: children DESTINATION: home DISCHARGE NURSE: Janet Martinez RN Height: Height: 160 cm (5' 3") (03/20/23 0018) Weight: Weight: 49.3 kg (108 lb 11.2 oz) (03/20/23 0018) Most Recent Vital Signs: BP: 104 mmHg/57 mmHg (03/21/231125) Pulse: 92 (03/21/231125) Temp: 37 C (03/21/231125) Resp: 18 (03/21/231125) SpO2: 99 % (03/21/231125) PAIN LEVEL AT DISCHARGE: Level of Pain: 0/10 Pain Scale Type: [facility] Scale 0-10 Type of Pain: Location: Radiation: Intervention: Instructions for Pain Management Post Discharge Given: no BELONGINGS PRESENT ON DISCHARGE: Patient Belongings at Bedside Belongings at Bedside: Dentures;Clothing (03/20/231427) Dentures: Lowers;Uppers (03/20/231427) Jewelry: Ring (03/20/231427) Clothing: Pants;Jacket/coat;Socks (03/20/2355) Patient Belongings Sent to Safe/Locker Belongings Sent to Safe: None (03/20/2355) I verified that all belongings were present at discharge. (Nurse initials - TE) Medications Brought by Patient?: No (03/20/2355) Home Medications: N/A (03/21/23 1258) I verified that all remaining home medications were returned to patient at discharge. (Nurse initials - TE) HARD COPY OF NARCOTIC PRESCRIPTION SIGNED AND PROVIDED TO PATIENT UPON HOSPITAL DISCHARGE: N/A READMISSION RISK (SCORE): Readmission Risk Score: 12.21 (03/21/23 1201) RESTRAINTS THIS HOSPITALIZATION: no BEHAVIORAL CONCERNS: none IMMUNIZATIONS GIVEN THIS ADMISSION: none NEUROLOGICAL Prabhakar Coma Scale: Best Verbal Response: Verbally appropriate for age (03/21/23 0740) Best Motor Response: Obeys commands appropriate for age (03/21/23 0740) Coma Score: 15 (03/21/23 0740) Extremity Movement: Pupil Size/Reaction: SEIZURE PRECAUTIONS: no SENSORY DEFICITS: no SPEECH, HEARING, VISION PROBLEMS: Are you deaf or do you have serious difficulty hearing?: No (03/20/2355) Are you blind or do you have serious difficulty seeing, even when wearing glasses?: No (03/20/2355) Is patient non-verbal or have difficulty speaking? no LANGUAGE BARRIER: no FEEDING: independent ORAL HYGIENE: brushes own teeth Functional Granite Measure (must be completed for all patients on discharge): Feedin = complete independence Locomotion: 4 = complete independence Expression: 4 = complete independence Transfer Mobility/Ambulation Status: 4 = complete independence Social Interaction: 4 = complete independence Dressin = complete independence Hygiene: 4 = complete independence RESPIRATORY: Discharged with Oxygen: no Ventilator: no Trach/Date of Trach: no CARDIOVASCULAR: (Cardiovascular WNL = Rhythm regular, normal rate per age, normal heart sounds (not accentuated, diminished or split,) no edema, brisk capillary refill, pulses present, no murmur.) Observation WNL = Observation WNL: WNL except for items charted below (03/21/23739) Heart Sounds: S1;S2 (03/21/23739) Rhythm: NSR (03/20/23 2348) RI interval: 0.16 seconds (03/20/23 2348) QRS: 0.07 seconds (03/20/23 2348) Extremities: +Sensation;Right;Left;Upper;Lower (03/21/2340) Pulses Right: Radial +;Dorsalis Pedis + (03/21/2340) Pulses Left: Radial +;Dorsalis Pedis + (03/21/23739) Edema: No (03/21/23739) Capillary Refill: 3 sec (03/21/2340) Intravenous Lines: none INTEGUMENTARY: Integumentary Observations: none Wound(s): none MUSCULOSKELETAL: Prosthetic(s): no GI ELIMINATION: (GI WNL = Abdomen flat, soft, no tenderness, symmetrical. Normal active bowel sounds present in all4 quadrants.) Observation WNL: Observation WNL: Yes (03/21/2340) Last Bowel Movement: 03/21/23 (03/21/23 1151) Ostomy Present: no ELIMINATION: ( WNL = Genitalia intact without discharge, swelling or pain. Urine clear and pale yellow, no foul smell. Continence appropriate for age. No bladder distention - absence of urinary devices - no hemo or peritoneal dialysis.) Observation WNL: Observational WNL: WNL except for items charted below (03/21/23739) Urine Description: (no urine to assess) (03/21/23739) Observational WNL: WNL except for items charted below (03/21/23739) Ostomy Present: no REPRODUCTIVE: Reproductive/Sexual Concerns: no Drainage: none COPING: Family/Community Support Systems in Place: Yes, Emergency Contact Name: Emergency Contact Number: Discharge Checklist: Discharge Instructions - Initials: TE Prescriptions for Controlled Substances: N/A - Initials: TE Home Medications Returned: N/A - Initials: TE POLST Form (if applicable): N/A - Initials: TE All IV Fluid sites have been discontinued: yes, date - 03/21/23 - Initials: TE Lines/Drains/Airways (LDAs) have been completed in flowsheet rows: yes, date - 03/21/23 - Initials: TE * Ira Kuo RN - 03/20/2023 4:26 PM EDT DISCHARGE PROGRESS NOTE - ENDOSCOPY [address] [address] Name: Reba Gonzalez Location: ENDO [facility] HFAM/Endo Date: 03/20/2023 Time: 4:26 PM Patient is discharged under the care of : kb muñoz Report called to Inpatient unit [id number] Means of transportation: stretcher Bronchoscopy: N/A Oxygen support: Yes - Patient placed back on portable O2 tank at 3 liter prior to Patient Transports arrival. Oxygen tank checked for appropriate level of oxygen storage. * Bri Brizuela RN - 03/20/2023 3:06 PM EDT Procedure being completed under general anesthesia. Please see anesthesia record for medications and vital signs. * Lucy Saldaña RN - 03/20/2023 2:07 PM EDT Patient does not meet criteria for testing. * Fidel Rivas RN - 03/20/2023 12:31 AM EDT Dual Licensed Skin Assessment completed by Chantelle Rivas RN and Marie Santacruz RN. The patient is/has a N/A Skin Breakdown (includes non blanchable erythema): No documented in this encounter Miscellaneous Notes * Pt Handout (on AVS) - Juanis Lizarraga [facility] - 03/21/2023 1:29 PM EDT Images from the original note were not included. [id number] Apixaban Oral Tablet Brands: Eliquis Uses This medicine is used for the following purposes: blood disorder prevent blood clots treatment of blood clots blood clot Instructions This medicine may be taken with or without food. This medicine will work best if you take it at about the same time every day. Store at room temperature away from heat, light, and moisture. Do not keep in the bathroom. It is important that you keep taking each dose of this medicine on time even if you are feeling well. If you forget to take a dose on time, take it as soon as you remember. If it is almost time for thenext dose, do not take the missed dose. Return to your normal schedule. Do not take 2 doses at one time. Drug interactions can change how medicines work or increase risk for side effects. Tell your healthcare providers about all medicines taken. Include prescription and myct-ule-niqhrme medicines, vitamins, and herbal medicines. Speak with your doctor or pharmacist before starting or stopping any medicine. Talk to your doctor before taking other medicines, including aspirins and ibuprofen containing products. Speak to your doctor about which medicines are safe to use while you are on this medicine. It is very important that you follow your doctor's instructions for all blood tests. Cautions This medicine may cause serious bleeding problems in patients taking blood thinner medications. Follow your doctor's instructions carefully to monitor your blood lab tests if you are on blood thinners. Tell your doctor and pharmacist if you ever had an allergic reaction to a medicine. This medicine may cause serious bleeding from the stomach or bowels. Stop this medicine and call your doctor immediately if you see any signs of bleeding. Bleeding can cause pain in the stomach, vomiting up liquid that looks like coffee grounds, and red or dark tarry stools. There is an increased risk of bleeding while on this medicine, please tell your doctor or nurse if you notice any excessive bleeding or bruising. Do not use the medication any more than instructed. Please check with your doctor before drinking alcohol while on this medicine. Do not breastfeed while on this medicine. This medicine can hurt a new baby in the womb. If you become while on this medicine, tell your doctor immediately. Your doctor may switch you to a different medicine. Do not take [place]'s wort while on this medicine. Do not share this medicine with anyone who has not been prescribed this medicine. Some patients have serious side effects from this medicine. Ask your pharmacist to show you the information from the Food and Drug Administration (FDA) and discuss it with you. Always refill this medicine before it runs out. Side Effects The following is a list of some common side effects from this medicine. Please speak with your doctor about what you should do if you experience these or other side effects. nosebleeds Call your doctor or get medical help right away if you notice any of these more serious side effects: bleeding or bruising coughing up blood or vomit that looks like coffee grounds fainting numbness or tingling in hands and feet severe or persistent headache sudden leg pain, swelling, warmth or redness loss of movement anywhere on the body shortness of breath bloody or dark, tarry stools symptoms of stroke (such as one-sided weakness, slurred speech, confusion) difficulty swallowing unusual or unexplained tiredness or weakness blood in urine blurring or changes of vision A few people may have an allergic reaction to this medicine. Symptoms can include difficulty breathing, skin rash, itching, swelling, or severe dizziness. If you notice any of these symptoms, seek medical help quickly. Extra Please speak with your doctor, nurse, or pharmacist if you have any questions about this medicine. [email or web address] IMPORTANT NOTE: This document tells you briefly how to take your medicine, but it does not tell youall there is to know about it. Your doctor or pharmacist may give you other documents about your medicine. Please talk to them if you have any questions. Always follow their advice. There is a more complete description of this medicine available in Cam[place]onian. Scan this code on your smartphone or tablet or use the web address below. You can also ask your pharmacist for a printout. If you have any questions, please ask your pharmacist. The display and use of this drug information is subject to Terms of Use. Copyright(c) 2022 [employer]. All rights reserved. This information is not intended as a substitute for professional medical care. Always follow your healthcare professional's instructions. * Pt Handout (on AVS) - Juanis Lizarraga RPh - 03/21/2023 1:28 PM EDT Images from the original note were not included. [id number] Apixaban Oral Tablet Brands: Eliquis Uses This medicine is used for the following purposes: blood disorder prevent blood clots treatment of blood clots blood clot Instructions This medicine may be taken with or without food. This medicine will work best if you take it at about the same time every day. Store at room temperature away from heat, light, and moisture. Do not keep in the bathroom. It is important that you keep taking each dose of this medicine on time even if you are feeling well. If you forget to take a dose on time, take it as soon as you remember. If it is almost time for thenext dose, do not take the missed dose. Return to your normal schedule. Do not take 2 doses at one time. Drug interactions can change how medicines work or increase risk for side effects. Tell your healthcare providers about all medicines taken. Include prescription and xlhq-ikp-lcwqutn medicines, vitamins, and herbal medicines. Speak with your doctor or pharmacist before starting or stopping any medicine. Talk to your doctor before taking other medicines, including aspirins and ibuprofen containing products. Speak to your doctor about which medicines are safe to use while you are on this medicine. It is very important that you follow your doctor's instructions for all blood tests. Cautions This medicine may cause serious bleeding problems in patients taking blood thinner medications. Follow your doctor's instructions carefully to monitor your blood lab tests if you are on blood thinners. Tell your doctor and pharmacist if you ever had an allergic reaction to a medicine. This medicine may cause serious bleeding from the stomach or bowels. Stop this medicine and call your doctor immediately if you see any signs of bleeding. Bleeding can cause pain in the stomach, vomiting up liquid that looks like coffee grounds, and red or dark tarry stools. There is an increased risk of bleeding while on this medicine, please tell your doctor or nurse if you notice any excessive bleeding or bruising. Do not use the medication any more than instructed. Please check with your doctor before drinking alcohol while on this medicine. Do not breastfeed while on this medicine. This medicine can hurt a new baby in the womb. If you become while on this medicine, tell your doctor immediately. Your doctor may switch you to a different medicine. Do not take [place]'s wort while on this medicine. Do not share this medicine with anyone who has not been prescribed this medicine. Some patients have serious side effects from this medicine. Ask your pharmacist to show you the information from the Food and Drug Administration (FDA) and discuss it with you. Always refill this medicine before it runs out. Side Effects The following is a list of some common side effects from this medicine. Please speak with your doctor about what you should do if you experience these or other side effects. nosebleeds Call your doctor or get medical help right away if you notice any of these more serious side effects: bleeding or bruising coughing up blood or vomit that looks like coffee grounds fainting numbness or tingling in hands and feet severe or persistent headache sudden leg pain, swelling, warmth or redness loss of movement anywhere on the body shortness of breath bloody or dark, tarry stools symptoms of stroke (such as one-sided weakness, slurred speech, confusion) difficulty swallowing unusual or unexplained tiredness or weakness blood in urine blurring or changes of vision A few people may have an allergic reaction to this medicine. Symptoms can include difficulty breathing, skin rash, itching, swelling, or severe dizziness. If you notice any of these symptoms, seek medical help quickly. Extra Please speak with your doctor, nurse, or pharmacist if you have any questions about this medicine. [email or web address] IMPORTANT NOTE: This document tells you briefly how to take your medicine, but it does not tell youall there is to know about it. Your doctor or pharmacist may give you other documents about your medicine. Please talk to them if you have any questions. Always follow their advice. There is a more complete description of this medicine available in [place]. Scan this code on your smartphone or tablet or use the web address below. You can also ask your pharmacist for a printout. If you have any questions, please ask your pharmacist. The display and use of this drug information is subject to Terms of Use. Copyright(c) 2022 [employer]. All rights reserved. This information is not intended as a substitute for professional medical care. Always follow your healthcare professional's instructions. * Ancillary Progress Note - Nancy Cleary RN - 03/21/2023 12:30 PM EDT ADULT CARE MANAGEMENT - DISCHARGE NOTE [facility] [address] Name: Reba Gonzalez Location: [facility] A575/B Date: 03/21/2023 Time: 12:30 PM The following coordination of care and discharge plan has been coordinated with the care team, patient, family and/or caregiver according to the patients needs and preferences. Discharge Discharge Insurance considerations verified and completed: Yes (03/21/231228) Second Notice Important Message from Medicare delivered: Not Applicable (03/21/231228) Was Caregiver/Family contacted regarding discharge: Yes (03/21/231228) Discharge Transportation: Family/Friends drive (03/21/231228) Patient declined post-hospital transition of care recommendation: N/A (03/21/231228) Provider to Provider handoff completed: N/A (03/21/231228) Final D/C Plan - Complete at time of D/C Final Discharge Plan (Complete only at time of Discharge): Home - Self Care (03/21/231228) Narrative: Patient discharging home today with family providing transport. No identified CM needs at this time. Patient, family and physician aware and agreeable. * Care Plan - Cristal Preston RN - 03/21/2023 6:30 AM EDT Clinical Goal(s): Patient will get adequate rest. (03/20/23 2300) Possible barriers to meeting goal(s)/advancing plan of care: Intermittent vital signs and lab work r/t heparin gtt, semi-private room. Stability of the patient: Moderately stable - low risk of patient condition declining or worsening Summary regarding today's goal(s): Met: Patient was able to sleep most of the night. Recommendations: Continue clustering care and maintaining a restful environment throughout the night. * Progress Notes - Non-Billable - Reji Oconnor DMD - 03/20/2023 6:06 PM EDT POST OP CHECK Procedure: EBUS- Bronchoscopy w/ biopsy Subjective Patient was seen and examined at bedside. On 2LNC post-procedure. Sitting up to edge of bed eating dinner meal. Feels well. Reports mild sore throat. Objective BP 124/65 | Pulse 95 | Temp 37 C (98.6 F) (Tympanic) | Resp 20 | Ht 1.6 m (5' 3") | Wt 49.3 kg (108 lb 11.2 oz) | SpO2 100% | BMI 19.26 kg/m | BSA 1.48 m Physical exam General: resting comfortably in bed, not in any acute distress Resp: vesicular breath sounds bilaterally Cardio: regular rate and rhythm; no murmurs or gallops Abdomen: soft, non distended, no tenderness to palpation, no rebound guarding or rigidity Extremity: warm, no edema Assessment and plan Reba Gonzalez 77 year old female now s/p bronchoscopy/EBUS with biopsy of hilar lymph nodes -Diet: Started regular diet -DVT prophylaxis: Heparin drip -Pain management: Tylenol prn -Rest of care as per am note Reji Oconnor DMD 03/20/2023 6:06 PM * Ancillary Progress Note - Nancy Cleary RN - 03/20/2023 9:48 AM EDT CARE MANAGEMENT - ADULT TRANSITION NOTE [facility] [address] [place] [address] Name: Reba Gonzalez Location: [facility] A575/B Date: 03/20/2023 Time: 9:48 AM Risk Stratification Risk Stratification Readmission Risk Score: 11.6 (03/20/23 0800) AM-PAC Score With Stairs : 22 (03/20/23 0820) Caregiver Information Patient Contacts Name Relation Home Work Mobile Erin Lopes Adult Child [phone] BEL GONZALEZ Adult Child [phone] Transition of Care Checklist Transition of Care Checklist (aka Readmission Risk Score) Readmission Risk Score: 11.6 (03/20/23 0800) Narrative: Patient admitted with lung mass. Possible plan for bronchoscopy. Also with PE, currentlyon heparin gtt. Not medically stable for discharge today. Patient currently lives at home. Plans to return to the same. Full CM assessment not indicated at this time. CM continue to follow for evolving needs. Anticipated Transportation at Discharge: family Patient/Family Expectations: return home Transition Planning Care Management will continue to monitor and assist with discharge planning needs documented in this encounter Plan of Treatment Upcoming Encounters Date Type Specialty Care Team Description 03/29/2023 Appointment Radiology 03/30/2023 Office Visit Family Medicine Zofia Woodward CRNP [address] [facility] [place] [address] 03/30/2023 Office Visit Hematology Oncology Traci Mitchell MD [address] [place] [address] 03/31/2023 Appointment Radiology 04/05/2023 Office Visit Pulmonary Alaniz, Komal Menchaca MD [address] [facility] [place] [address] 08/31/2023 Office Visit Family Medicine DepZofia hughes CRNP [address] [place] [address] Pending Results Name Type Priority Associated Diagnoses Date /Time CYTOLOGY Pathology Routine 03/20/2023 3:3 0 PM EDT Scheduled Orders Name Type Priority Associated Diagnoses Orde r Schedule EKG EKG STAT Electrolyte abnormality One Time for 1 Occurrences starting 03/20/2023 until 03/20/2023 EKG EKG STAT Chest pain One Time for 1 Occurrences starting 03/20/2023 until 03/20/2023 CYTOLOGY Pathology Routine One Time for 1 Occurrences starting 03/20/2023 until 03/20/2023, 1 completed BASIC METABOLIC PANEL Lab Routine Lung mass Expected: 03/28/2023 (Approximate), Expires: 03/21/2024 CBC Lab Routine Lung mass Expected: 03/28/2023 (Approximate), Expires: 03/21/2024 Health Maintenance Due Date Last Done Comments DXA Scan 02/08/2020 02/07/2017, 01/29, 02/20/2014, Additional history exists COVID-19 Vaccine (2 - Booster for Pirece series) 01/18/2022 11/23/2021 Zoster Vaccines (2 of [...] Procedure Name Priority Date/Time Associated Diagnosis Comments BASIC METABOLIC PANEL Routine 03/21/2023 6:57 AM EDT HEPARIN, UNFRACTIONATED Routine 03/21/20 6:57 AM EDT PT INR Routine 03/21/2023 6:57 AM EDT CBC STAT 03/21/2023 6:57 AM EDT HEPARIN, UNFRACTIONATED STAT 03/20/20 11:18 PM EDT HEPARIN, UNFRACTIONATED STAT 03/20/20 5:15 PM EDT BRONCHOSCOPY 03/20/2023 2:53 PM EDT CBC Routine 03/20/2023 11:53 AM EDT BASIC METABOLIC PANEL Routine 03/20/2023 11:50 AM EDT URINALYSIS WITH MICROSCOPIC EXAM Routine 03/20/2023 8:21 AM EDT SODIUM, RANDOM URINE Routine 03/20/2023 8:21 AM EDT OSMOLALITY, URINE Routine 03/20/2023 8:2 1 AM EDT HEPARIN, UNFRACTIONATED STAT 03/20/20 7:33 AM EDT DIFFERENTIAL, AUTOMATED Routine 03/20/20 1:57 AM EDT BASIC METABOLIC PANEL Routine 03/20/2023 1:57 AM EDT HEPARIN, UNFRACTIONATED STAT 03/20/20 1:57 AM EDT CBC WITH WBC DIFFERENTIAL Routine 03/20/2023 1:57 AM EDT PT INR STAT 03/20/2023 1:57 AM EDT PHOSPHORUS Routine 03/20/2023 1:57 AM EDT OSMOLALITY, SERUM Routine 03/20/2023 1:5 7 AM EDT APTT STAT 03/20/2023 1:57 AM EDT CBC Routine 03/20/2023 1:57 AM EDT MAGNESIUM Routine 03/20/2023 1:57 AM EDT documented in this encounter Results * (ABNORMAL) BASIC METABOLIC PANEL (03/21/2023 6:57 AM EDT) BUN 12 6 - 20 mg/dL 03/21/2023 7:37 AM EDT LAB[facility]ATORY [facility] Creatinine 0.8 0.5 - 1.0 mg/dL 03/21/2023 7:37 AM EDT LAB[facility]ORY [facility] Estimated Glomerular Filtration Rate 78 >=60 mL/min 03/21/2023 7:37 AM EDT [facility] Comment:eGFR is calculated b ased on the CKD-EPI 2020 equation Sodium 129(L) 135 - 146 mmol/L 03/21/2023 7:37 AM EDT LAB[facility]ORY [facility] Potassium 4.2 3.5 - 5.1 mmol/L 03/21/2023 7:37 AM EDT [facility] Chloride 96(L) 98 - 107 mmol/L 03/21/2023 7:37 AM EDT LAB[facility] CO2 23 22 - 32 mmol/L 03/21/2023 7:37 AM EDT [facility] Anion Gap 10 7 - 15 mmol/L 03/21/2023 7:37 AM EDT LAB[facility]ORY [facility] Glucose 105 70 - 120 mg/dL 03/21/2023 7:37 AM EDT [facility] Calcium 8.6 8.4 - 10.2 mg/dL 03/21/2023 7:37 AM EDT LABORATORY C Blood Venous blood specimen / Unknown Venipuncture / Unknown 03/21/2023 6:57 AM EDT 03/21/2023 7:10 AM EDT Reji Oconnor DMD LAB BLOOD ORDERABLES Performing Organization Address [facility] de Phone Number LABORATORY [facility] [address] [place] [address] * (ABNORMAL) PT INR (03/21/2023 6:57 AM EDT) Prothrombin Time 15.7(H) 11.6 - 15.2 seconds 03/21/2023 7:18 AM EDT LAB[facility]ATORY [facility] INR 1.2 0.8 - 1.2 03/21/2023 7:18 AM EDT LABORATORY [facility] Blood Venous blood specimen / Unknown Venipuncture / Unknown 03/21/2023 6:57 AM EDT 03/21/2023 7:18 AM EDT [facility] LABORATORY [facility] - 03/21/2023 7:18 AM EDT Warfarin Therapy INR: 2.0-3.0 conventional anticoagulation INR: 2.5-3.5 high intensity anticoagulation Ana Nicole DO LAB BLOOD ORD ERABLES Performing Organization Address [facility] [place] [address] * (ABNORMAL) CBC (03/21/2023 6:57 AM EDT) WBC 11.43(H) 4.00 - 10.80 K/uL 03/21/2023 7:20 AM EDT LAB[facility]ORY [facility] RBC 3.51 3.85 - 5.15 M/uL 03/21/2023 7:20 AM EDT LAB[facility]ORY [facility] HGB 9.2(L) 12.0 - 15.3 g/dL 03/21/2023 7:20 AM EDT LAB[facility]ORY [facility] HCT 28.3(L) 36.0 - 45.2 % 03/21/2023 7:20 AM EDT LAB[facility] MCV 80.6 81.5 - 97.5 fL 03/21/2023 7:20 AM EDT LAB[facility]ORY [facility] MCH 26.2 27.0 - 34.0 pg 03/21/2023 7:20 AM EDT LABORATORY [facility] MCHC 32.5 32.0 - 36.0 g/dL 03/21/2023 7:20 AM EDT LABORATORY [facility] RDW 13.6 11.5 - 15.5 % 03/21/2023 7:20 AM EDT LABORATORY [facility] PLT 522(H) 140 - 400 K/uL 03/21/2023 7:20 AM EDT LABORATORY [facility] MPV 8.8 6.6 - 11.1 fL 03/21/2023 7:20 AM EDT LABORATORY [facility] nRBCs 0 <=0 /100 WBCs 03/21/2023 7:20 AM EDT LABORATORY [facility] Blood Venous blood specimen / Unknown Venipuncture / Unknown 03/21/2023 6:57 AM EDT 03/21/2023 7:09 AM EDT Ana Nicole DO LAB BLOOD ORD ERABLES Performing Organization Address City/[facility]/ZIP Co de Phone Number LABORATORY [facility] [address] [place] [address] * (ABNORMAL) HEPARIN, UNFRACTIONATED (03/21/2023 6:57 AM EDT) [facility] Heparin, Unfractionated 0.14(H) <0.10 IU/mL 03/21/2023 7:18 AM EDT LABORATORY [facility] Comment: Unfractionated therapeutic ranges for Anti Xa activity: For Cardiac/Neurologic treatment: 0.3 to 0.6 IU/mL. For treatment of DVT or Pulmonary Embolism: 0.3 to 0.7 IU/mL. Blood Venous blood specimen / Unknown Venipuncture / Unknown 03/21/2023 6:57 AM EDT 03/21/2023 7:18 AM EDT Jaquan Cohen MD LAB BLOOD OR DERABLES Performing Organization Address City/[facility]/ZIP Co de Phone Number LABORATORY [facility] [address] [place] [address] * HEPARIN, UNFRACTIONATED (03/20/2023 11:18 PM EDT) Heparin, Unfractionated <0.10 <0.10 IU/mL 03/20/2023 11:37 PM EDT LABORATORY [facility] Comment: Unfractionated therapeutic ranges for Anti Xa activity: For Cardiac/Neurologic treatment: 0.3 to 0.6 IU/mL. For treatment of DVT or Pulmonary Embolism: 0.3 to 0.7 IU/mL. Blood Venous blood specimen / Unknown Venipuncture / Unknown 03/20/2023 11:18 PM EDT 03/20/2023 11:22 PM EDT Jaquan Cohen MD LAB BLOOD OR DERABLES Performing Organization Address [facility] [place] [address] * HEPARIN, UNFRACTIONATED (03/20/2023 5:15 PM EDT) [facility] Heparin, Unfractionated <0.10 <0.10 IU/mL 03/20/2023 6:05 PM EDT LABORATORY [facility] Comment: Unfractionated therapeutic ranges for Anti Xa activity: For Cardiac/Neurologic treatment: 0.3 to 0.6 IU/mL. For treatment of DVT or Pulmonary Embolism: 0.3 to 0.7 IU/mL. Blood Venous blood specimen / Unknown Venipuncture / Unknown 03/20/2023 5:15 PM EDT 03/20/2023 5:20 PM EDT Reji Oconnor DMD LAB BLOOD ORDERABLES Performing Organization Address [facility] Co de Phone Number LABORATORY [place] [address] [place] [address] * BRONCHOSCOPY (03/20/2023 2:53 PM EDT) 03/20/2023 2:53 PM EDT Procedure Note Jamie Wynn, - 03/20/2023 2:53 PM EDT [facility] [address] Patient Name: Reba Gonzalez Procedure Date: 03/20/2023 2:53 PM Date of : 1945 Admit Type: Inpatient Note Status:Finalized Date of : 1945 Admit Type: Inpatient Age: 77 Room: 10 Gender: Female Note Status: Finalized Procedure: Bronchoscopy (EBUS) Indications: Left upper lobe mass, Hilar lymphadenopathy of theleft side, Mediastinal adenopathy Providers: Dhruv Graham MD, James Fierro MD (Fellow) Referring MD: Sheila Andrade MD (Referring MD), Jamie Piña DO (Referring MD), Jaquan Cohen (Referring MD) Medicines: General Anesthesia Complications: No immediate complications Procedure: Pre-Anesthesia Assessment: - The supervising physician was present for theentire procedure from scope insertion until scope withdrawal. - The heart rate, respiratory rate, oxygensaturations, blood pressure, adequacy of pulmonary ventilation, and response to care weremonitored throughout the procedure. After obtaining informed consent, The procedure wasaccomplished without difficulty. The patient tolerated the procedure fairly well.the [id number]) was introduced through the mouth, via theendotracheal tube (the patient was intubated for the procedure) and advanced to thetracheobronchial tree. All instruments were visually inspected immediatelybefore and after removal from the patient to ensure they are fully intact. Findings & Specimens: The endotracheal tube is in good position. The visualized portion ofthe trachea is of normal caliber. The juan manuel is sharp. The tracheobronchial tree was examined to atleast the first subsegmental level. Bronchial mucosa and anatomy are normal; there are no endobronchiallesions, and no secretions. Lymph Nodes: An endobronchial ultrasound endoscope was utilized tosystematically examine the right lower paratracheal region (level 4R) and left lower paratrachealregion (level 4L) in order to assist with fine needle aspiration. An endobronchial ultrasound-guidedtransbronchial needle aspiration was performed using an Olympus ViziShot 2 22 gauge needle and sent forroutine cytology. Specimens were obtained from the 4R (lower paratracheal) and 4L (lower paratracheal)lymph nodes. Five passes per node were performed. Rapid On-Site Evaluation (BERNADINE): Preliminary cytology was suggestiveof malignancy (final results are pending) in the right lower paratracheal region (level 4R).Preliminary cytology was suggestive of malignancy (final results are pending) in the left lower paratrachealregion (level 4L). The cytology specimen 4R was placed in Bottle A. The cytology specimen 4L was placed in Bottle B. Impression: - Left upper lobe mass - Hilar lymphadenopathy of the left side - Mediastinal adenopathy - The airway examination was normal. - Endobronchial ultrasound was performed. - A transbronchial needle aspiration wasperformed. - Rapid On-Site Evaluation (BERNADINE): Preliminarycytology was suggestive of malignancy in node level 4R and of malignancy in node level 4L(final results are pending). Recommendation: - Await cytology results. Dhruv Graham MD 03/20/2023 3:49:13 PM This report has been signed electronically. James Fierro MD 03/20/2023 3:48:59 PM Jamie A Prisuta DO GASTRO UPPER * (ABNORMAL) CBC (03/20/2023 11:53 AM EDT) WBC 13.95(H) 4.00 - 10.80 K/uL 03/20/2023 12:11 PM EDT LAB[facility]ATORY [facility] RBC 3.48 3.85 - 5.15 M/uL 03/20/2023 12:11 PM EDT LAB[facility]ORY [facility] HGB 9.1(L) 12.0 - 15.3 g/dL 03/20/2023 12:11 PM EDT LAB[facility]ORY [facility] HCT 27.9(L) 36.0 - 45.2 % 03/20/2023 12:11 PM EDT LAB[facility]ORY [facility] MCV 80.2 81.5 - 97.5 fL 03/20/2023 12:11 PM EDT LAB[facility] MCH 26.1 27.0 - 34.0 pg 03/20/2023 12:11 PM EDT LAB[facility] MCHC 32.6 32.0 - 36.0 g/dL 03/20/2023 12:11 PM EDT LAB[facility] RDW 13.3 11.5 - 15.5 % 03/20/2023 12:11 PM EDT LABORATORY [facility] PLT 545(H) 140 - 400 K/uL 03/20/2023 12:11 PM EDT LABORATORY [facility] MPV 8.8 6.6 - 11.1 fL 03/20/2023 12:11 PM EDT LABORATORY [facility] nRBCs 0 <=0 /100 WBCs 03/20/2023 12:11 PM EDT LABORATORY [facility] Blood Venous blood specimen / Unknown Venipuncture / Unknown 03/20/2023 11:53 AM EDT 03/20/2023 12:04 PM EDT Reji Oconnor DMD LAB BLOOD ORDERABLES LABORATORY [facility] [address] [place] [address] * (ABNORMAL) BASIC METABOLIC PANEL (03/20/2023 11:50 AM EDT) BUN 14 6 - 20 mg/dL 03/20/2023 12:33 PM EDT LABORATORY C Creatinine 0.7 0.5 - 1.0 mg/dL 03/20/2023 12:33 PM EDT LABORATORY [facility] Estimated Glomerular Filtration Rate 90 >=60 mL/min 03/20/2023 12:33 PM EDT LABORATORY [facility] Comment:eGFR is calculated b ased on the CKD-EPI 2020 equation Sodium 129(L) 135 - 146 mmol/L 03/20/2023 12:33 PM EDT LABORATORY C Potassium 4.6 3.5 - 5.1 mmol/L 03/20/2023 12:33 PM EDT LABORATORY C Comment:Result may be falsel y elevated due to hemolysis. Chloride 98 98 - 107 mmol/L 03/20/2023 12:33 PM EDT LABORATORY C CO2 21(L) 22 - 32 mmol/L 03/20/2023 12:33 PM EDT LABORATORY C Anion Gap 10 7 - 15 mmol/L 03/20/2023 12:33 PM EDT LAB[facility]ORY [facility] Glucose 93 70 - 120 mg/dL 03/20/2023 12:33 PM EDT LAB[facility] Calcium 8.7 8.4 - 10.2 mg/dL 03/20/2023 12:33 PM EDT LABORATORY [facility] Blood Venous blood specimen / Unknown Venipuncture / Unknown 03/20/2023 11:50 AM EDT 03/20/2023 12:04 PM EDT Reji Oconnor DMD LAB BLOOD ORDERABLES Performing Organization Address [facility]/ZIP Co de Phone Number LABORATORY [facility] [address] [place] [address] * OSMOLALITY, URINE (03/20/2023 8:21 AM EDT) Osmolality, Urine 643 50 - 1,200 mOsm/kg 03/20/2023 9:18 AM EDT LABORATORY [facility] Urine Urine specimen obtained by clean catch procedure / Unknown Non-blood Collection / Unknown 03/20/2023 8:21 AM EDT 03/20/2023 8:44 AM EDT Ana Nicole DO LAB URINE ORD ERABLES Performing Organization Address [facility]/ZIP Co de Phone Number LABORATORY [facility] [address] [place] [address] * (ABNORMAL) URINALYSIS WITH MICROSCOPIC EXAM (03/20/2023 8:21 AM EDT) Color, Urine Yellow Colorless, Light Yellow, Yellow, Dark Yellow 03/20/2023 9:22 AM EDT LABORATORY C Clarity, Urine Clear Clear 03/20/2023 9:22 AM EDT LABORATORY C Glucose, Urine Negative Negative mg/dL 03/20/2023 9:22 AM EDT LAB[facility] Bilirubin, Urine Negative Negative 03/20/2023 9:22 AM EDT LABORATORY C Ketone, Urine Negative Negative mg/dL 03/20/2023 9:22 AM EDT LABORATORY C Specific [place], Urine >1.050(H) 1.003 - 1.030 03/20/2023 9:22 AM EDT LABORATORY [facility] Blood, Urine Negative Negative 03/20/2023 9:22 AM EDT LABORATORY C pH, Urine 6.0 5.0 - 7.5 Units 03/20/2023 9:22 AM EDT [facility] Protein, Urine 30(A) Negative mg/dL 03/20/2023 9:22 AM EDT LABORATORY C Urobilinogen, Urine Normal Normal mg/dL 03/20/2023 9:22 AM EDT LABORATORY C Nitrite, Urine Negative Negative 03/20/2023 9:22 AM EDT LABORATORY C Esterase, Urine Small(A) Negative 03/20/2023 9:22 AM EDT LABORATORY C RBC, Urine 3-5(A) 0 - 2 /HPF 03/20/2023 9:22 AM EDT LAB[facility]ORY [facility] WBC, Urine 10-19(A) 0 - 2 /HPF 03/20/2023 9:22 AM EDT LABORATORY C Bacteria, Urine 26-50(A) 0 - 25 /HPF 03/20/2023 9:22 AM EDT LABORATORY [facility] Urine Urine specimen obtained by clean catch procedure / Unknown Non-blood Collection / Unknown 03/20/2023 8:21 AM EDT 03/20/2023 8:44 AM EDT Ana Russell [facility] LAB URINE ORD ERABLES LABORATORY [facility] [address] [place] [address] * SODIUM, RANDOM URINE (03/20/2023 8:21 AM EDT) Sodium, Random Urine 24 mmol/L 03/20/2023 9:46 AM EDT LABORATORY [facility] Urine Urine specimen obtained by clean catch procedure / Unknown Non-blood Collection / Unknown 03/20/2023 8:21 AM EDT 03/20/2023 8:44 AM EDT Ana Russell [facility] LAB URINE ORD ERABLES LABORATORY [facility] [address] [place] [address] * HEPARIN, UNFRACTIONATED (03/20/2023 7:33 AM EDT) Heparin, Unfractionated <0.10 <0.10 IU/mL 03/20/2023 8:13 AM EDT LABORATORY [facility] Comment: Unfractionated therapeutic ranges for Anti Xa activity: For Cardiac/Neurologic treatment: 0.3 to 0.6 IU/mL. For treatment of DVT or Pulmonary Embolism: 0.3 to 0.7 IU/mL. Blood Venous blood specimen / Unknown Venipuncture / Unknown 03/20/2023 7:33 AM EDT 03/20/2023 7:40 AM EDT Nancy Bernadine Goel DO LAB BLOOD ORDERABLE S Performing Organization Address [facility] [place] [address] * HEPARIN, UNFRACTIONATED (03/20/2023 1:57 AM EDT) Heparin, Unfractionated <0.10 <0.10 IU/mL 03/20/2023 2:16 AM EDT LABORATORY [facility] Comment: Unfractionated therapeutic ranges for Anti Xa activity: For Cardiac/Neurologic treatment: 0.3 to 0.6 IU/mL. For treatment of DVT or Pulmonary Embolism: 0.3 to 0.7 IU/mL. Blood Venous blood specimen / Unknown Venipuncture / Unknown 03/20/2023 1:57 AM EDT 03/20/2023 2:02 AM EDT Ana Nicole DO LAB BLOOD ORD ERABLES Performing Organization Address [facility] de Phone Number LABORATORY [place] [address] [place] [address] * APTT (03/20/2023 1:57 AM EDT) aPTT 34 21 - 38 seconds 03/20/2023 2:16 AM EDT LABORATORY [facility] Blood Venous blood specimen / Unknown Venipuncture / Unknown 03/20/2023 1:57 AM EDT 03/20/2023 2:02 AM EDT Narrative LABORATORY [facility] - 03/20/2023 2:16 AM EDT Anticoagulation may affect testing. Refer to [facility] Test Catalog for a list of effects. Ana Russell Nicole DO LAB BLOOD ORD ERABLES LABORATORY [facility] [address] [place] [address] * (ABNORMAL) PT INR (03/20/2023 1:57 AM EDT) Pathologist [facility] Prothrombin Time 16.4(H) 11.6 - 15.2 seconds 03/20/2023 2:14 AM EDT LABORATORY [facility] INR 1.3(H) 0.8 - 1.2 03/20/2023 2:14 AM EDT LABORATORY [facility] Blood Venous blood specimen / Unknown Venipuncture / Unknown 03/20/2023 1:57 AM EDT 03/20/2023 2:02 AM EDT Narrative LABORATORY [facility] - 03/20/2023 2:14 AM EDT Warfarin Therapy INR: 2.0-3.0 conventional anticoagulation INR: 2.5-3.5 high intensity anticoagulation Ana Russell [facility] LAB BLOOD ORD ERABLES Performing Organization Address City/[facility]/ZIP Co [place] [address] * (ABNORMAL) OSMOLALITY, SERUM (03/20/2023 1:57 AM EDT) [facility] Osmolality, Serum 272(L) 278 - 305 mOsm/kg 03/20/2023 2:34 AM EDT LABORATORY [facility] Blood Venous blood specimen / Unknown Venipuncture / Unknown 03/20/2023 1:57 AM EDT 03/20/2023 2:02 AM EDT Ana Russell [facility] LAB BLOOD ORD ERABLES LABORATORY [facility] [address] [place] [address] * (ABNORMAL) DIFFERENTIAL, AUTOMATED (03/20/2023 1:57 AM EDT) WBC 13.33(H) 4.00 - 10.80 K/uL 03/20/2023 2:10 AM EDT LAB[facility]ATORY [facility] Neutrophils % 72.2 40.0 - 75.0 % 03/20/2023 2:10 AM EDT LAB[facility]ORY [facility] Lymphocytes % 16.4(L) 18.0 - 42.0 % 03/20/2023 2:10 AM EDT LAB[facility]ORY [facility] Monocytes % 9.8 1.0 - 11.0 % 03/20/2023 2:10 AM EDT LAB[facility]ORY [facility] Eosinophils % 0.8 0.0 - 6.0 % 03/20/2023 2:10 AM EDT LAB[facility]ORY [facility] Basophils % 0.3 0.0 - 2.0 % 03/20/2023 2:10 AM EDT LAB[facility]ORY [facility] Immature Granulocytes % 0.5 0.0 - 2.0 % 03/20/2023 2:10 AM EDT LAB[facility]ORY [facility] Absolute Neutrophils 9.63(H) 1.80 - 7.70 K/uL 03/20/2023 2:10 AM EDT LAB[facility]ATORY [facility] Absolute Lymphocytes 2.19 1.00 - 4.80 K/ul 03/20/2023 2:10 AM EDT LAB[facility]ATORY [facility] Absolute Monocytes 1.30(H) 0.00 - 1.10 K/uL 03/20/2023 2:10 AM EDT LAB[facility]ORY [facility] Absolute Eosinophils 0.10 0.00 - 0.70 K/uL 03/20/2023 2:10 AM EDT LAB[facility]ORY [facility] Absolute Basophils 0.04 0.00 - 0.20 K/uL 03/20/2023 2:10 AM EDT LAB[facility]ORY [facility] Absolute Immature Granulocytes 0.07 0.00 - 0.20 K/uL 03/20/2023 2:10 AM EDT LAB[facility]ORY [facility] Blood Venous blood specimen / Unknown Venipuncture / Unknown 03/20/2023 1:57 AM EDT 03/20/2023 2:02 AM EDT Ana Nicole DO LAB BLOOD ORD ERABLES [facility] [address] [place] [address] * (ABNORMAL) CBC (03/20/2023 1:57 AM EDT) WBC 13.33(H) 4.00 - 10.80 K/uL 03/20/2023 2:10 AM EDT LAB[facility]ATORY [facility] RBC 3.80 3.85 - 5.15 M/uL 03/20/2023 2:10 AM EDT LAB[facility]ORY [facility] HGB 10.1(L) 12.0 - 15.3 g/dL 03/20/2023 2:10 AM EDT LAB[facility]ATORY [facility] HCT 30.4(L) 36.0 - 45.2 % 03/20/2023 2:10 AM EDT LAB[facility]ATORY [facility] MCV 80.0 81.5 - 97.5 fL 03/20/2023 2:10 AM EDT LABORATORY [facility] MCH 26.6 27.0 - 34.0 pg 03/20/2023 2:10 AM EDT LABORATORY [facility] MCHC 33.2 32.0 - 36.0 g/dL 03/20/2023 2:10 AM EDT LABORATORY [facility] RDW 13.3 11.5 - 15.5 % 03/20/2023 2:10 AM EDT LABORATORY [facility] PLT 611(H) 140 - 400 K/uL 03/20/2023 2:10 AM EDT LABORATORY [facility] MPV 8.9 6.6 - 11.1 fL 03/20/2023 2:10 AM EDT LABORATORY [facility] nRBCs 0 <=0 /100 WBCs 03/20/2023 2:10 AM EDT LABORATORY [facility] Blood Venous blood specimen / Unknown Venipuncture / Unknown 03/20/2023 1:57 AM EDT 03/20/2023 2:02 AM EDT Ana Russell [facility] LAB BLOOD ORD ERABLES LABORATORY [facility] [address] [place] [address] * PHOSPHORUS (03/20/2023 1:57 AM EDT) Phosphorus 3.3 2.5 - 4.8 mg/dL 03/20/2023 2:29 AM EDT LABORATORY [facility] Blood Venous blood specimen / Unknown Venipuncture / Unknown 03/20/2023 1:57 AM EDT 03/20/2023 2:02 AM EDT Ana Russell [facility] LAB BLOOD ORD ERABLES Performing Organization Address City/[facility]/ZIP Co de Phone Number LABORATORY [facility] [address] [place] [address] * MAGNESIUM (03/20/2023 1:57 AM EDT) Magnesium 2.0 1.5 - 2.6 mg/dL 03/20/2023 2:29 AM EDT LABORATORY [facility] Blood Venous blood specimen / Unknown Venipuncture / Unknown 03/20/2023 1:57 AM EDT 03/20/2023 2:02 AM EDT Ana Perez [facility] LAB BLOOD ORD ERABLES Performing Organization Address City/[facility]/ZIP Co de Phone Number LABORATORY [facility] [address] [place] [address] * (ABNORMAL) BASIC METABOLIC PANEL (03/20/2023 1:57 AM EDT) BUN 17 6 - 20 mg/dL 03/20/2023 2:29 AM EDT LAB[facility]ATORY [facility] Creatinine 0.9 0.5 - 1.0 mg/dL 03/20/2023 2:29 AM EDT LAB[facility]ATORY [facility] Estimated Glomerular Filtration Rate 70 >=60 mL/min 03/20/2023 2:29 AM EDT LAB[facility]ATORY [facility] Comment:eGFR is calculated b ased on the CKD-EPI 2020 equation Sodium 130(L) 135 - 146 mmol/L 03/20/2023 2:29 AM EDT [facility] Potassium 4.2 3.5 - 5.1 mmol/L 03/20/2023 2:29 AM EDT [facility] Chloride 96(L) 98 - 107 mmol/L 03/20/2023 2:29 AM EDT [facility] CO2 22 22 - 32 mmol/L 03/20/2023 2:29 AM EDT [facility] Anion Gap 12 7 - 15 mmol/L 03/20/2023 2:29 AM EDT LAB[facility]ATORY [facility] Glucose 105 70 - 120 mg/dL 03/20/2023 2:29 AM EDT [facility] Calcium 8.6 8.4 - 10.2 mg/dL 03/20/2023 2:29 AM EDT LAB[facility]ATORY [facility] Blood Venous blood specimen / Unknown Venipuncture / Unknown 03/20/2023 1:57 AM EDT 03/20/2023 2:02 AM EDT Ana Russell [facility] LAB BLOOD ORD ERABLES LAB[facility]ATORY [facility] [address] [place] [address] documented in this encounter Visit Diagnoses Diagnosis Lung mass- Primary Swelling, mass, or lump in chest Lung mass Swelling, mass, or lump in chest Electrolyte abnormality Electrolyte and fluid disorders not elsewhere classified Chest pain Chest pain, unspecified Other disorders of lung Localized enlarged lymph nodes Enlargement of lymph nodes Tobacco use disorder Generalized weakness Other malaise and fatigue Bilateral pulmonary embolism (HCC) Other pulmonary embolism and infarction Hyponatremia Hyposmolality and/or hyponatremia New onset atrial fibrillation (HCC) Atrial fibrillation Severe protein-energy malnutrition (HCC) Other severe protein-calorie malnutrition documented in this encounter Administered Medications Inactive Administered Medications - up to 3 most recent administrations Medication Order MAR Action Action Date Dose Rate Site Acetaminophen (Tylenol) tab 975 mg 975 mg, Oral, Q6H PRN Pain, Moderate, Pain, Mild, Starting on Mon03/20/23 at 1809, Until Mon03/21/23 at 1754, Maximum of 4 grams (4000 mg) per day. Apixaban (Eliquis) tab 10 mg 10 mg, Oral, BID(AM/PM), First dose on Mon03/21/23 at 1200, Last dose on Mon03/27/23 at 2100, For 14 doses Given 03/21/2023 12:15 PM EDT 10 mg Apixaban (Eliquis) tab 5 mg 5 mg, Oral, BID(AM/PM), First dose on Mon03/28/23 at 0900, Until Discontinued Famotidine (Pepcid) tab 20 mg 20 mg, Oral, HS PRN Other, heartburn/reflux symptoms, Starting on Mon03/20/23 at 0145, Until Mon03/21/23 at 1754 Given 03/20/2023 2:06 AM EDT 20 mg hEParin 1000 UNIT/ML inj 1,500 Units 1,500 Units (rounded from 1,479 Units = 30 Units/kg 49.3 kg), IV Push, PRN Other, If most recent Heparin Assay result is less than or equal to 0.2 units/mL, Starting on Mon03/20/23 at 1654, Until Mon03/21/23 at 1150, Repeat Heparin Assay 6 hours after bolus is administered. Send message to pharmacy if dose needed. Given 03/21/2023 8:27 AM EDT 1,500 Units documented in this encounter Active and Recently Administered Medications Times are shown in EDT. Scheduled Medication Order 03/19/2023 03/20/2023 03/21/2023 Apixaban (Eliquis) tab 10 mg(Linked Group 1) 10 mg, Oral, BID(AM/PM), First dose on Mon03/21/23 at 1200, Last dose on Mon03/27/23 at 2100, For 14 doses 1215 (Given - Provid er: Tess Orozco LPN) Apixaban (Eliquis) tab 5 mg(Linked Group 1) 5 mg, Oral, BID(AM/PM), First dose on Mon03/28/23 at 0900, Until Discontinued NSS 0.9% 500 mL bolus infusion (COMPLETED) Intravenous, at 500 mL/hr Administer over 60 Minutes, Administer entire volume within 60 minutes or less., ONCE, 1 dose, On Mon03/20/23 at 1730 1716 (New Bag - Provider: Tess Orozco LPN) omeprazole (PriLOSEC) cap 20 mg 20 mg, Oral, Daily(AM), First dose on Mon03/20/23 at 0900, Until Discontinued, This med should NOT be Crushed or Chewed 0917 (Given - Provider: Tess Orozco LPN) 0846 (Given - Provider: Hollie Martinez, TI) oxygen GAS Inhalation, OXYGEN, First dose on Mon03/20/23 at 1600, Until Discontinued, Device/Managed by: Low Flow Device, Goal SPO2 (%): 91-95, Starting Device: Nasal Cannula, Inital Flow Rate (LPM): 2, Lowest Support: Nasal Cannula: Flow 0-6 LPM. Titrate up/down by 1 LPM., Titration Interval: Q2 minutes and as needed., Notify Provider: For sudden DECREASE in resting SPO2 to less than 85% and when escalating delivery device. 1600 (Oxygen On - Provider: Tess Orozco LPN) 0000 (Oxygen Off - Provider: Cristal Preston RN)0800 (Oxygen Off - Provider: Tess Orozco LPN) Polyethylene Glycol 3350 (Miralax) oral powder 17 g 17 g (1 Packet), Oral, Daily(AM), First dose on Mon03/21/23 at 1045, Until Discontinued, Mix in 8 oz of water, juice, soda, coffee, or tea. 1151 (Not Given - Provider: Tess Orozco LPN - Reason: Refused-Notify Provider) Continuous Medication Order 03/19/2023 03/20/2023 03/21/2023 hEParin 25,000 units in 250 mL (Xa-DVT/PE) infusion (CANCELED) Intravenous, at 0-14.79 mL/hr, Start heparin as soon as baseline labs are drawn. Please select this medication from the infusion pump library! Concentration: 100 units/mL Expires 96 hours after spiking on (date) at (hour) , TITRATE, Starting on Mon03/20/23 at 0230, Until Mon03/20/23 at 1657 0205 (New Bag - Provider: Elisabeth Santacruz, RN)0714 (Nurse Change - Provider: Elisabeth Santacruz RN)0844 (Rate Change - Provider: Janet Martinez RN)0903 (Stopped - Provider: Tess Orozco LPN - Comment: stopped per Reji Oconnor MD for procedure) hEParin 25,000 units in 250 mL (Xa-DVT/PE) infusion (CANCELED) Intravenous, at 0-14.79 mL/hr, Start heparin as soon as baseline labs are drawn. Please select this medication from the infusion pump library! Concentration: 100 units/mL Expires 96 hours after spiking on (date) at (hour) , TITRATE, Starting on Mon03/20/23 at 1730, Until Mon03/21/23 at 1150 1717 (New Bag - Provider: Tess Orozco LPN)1933 (Nurse Change - Provider: Tess Orozco LPN) 0005 (Rate Change - Provider: Cristal Preston, TI)0716 (Nurse Change - Provider: Cristal Preston, TI)0731 (Rate Change - Provider: Cristal Preston RN)1211 (Stopped - Provider: Tess Orozco LPN) isolyte-S pH 7.4 infusion (CANCELED) Intravenous, at 25 mL/hr, for Inpatient patient Plasma-LYTE 148, isolyte-S, and isolyte-S pH 7.4 are considered equivalent - including for MAR barcode scanning., CONTINUOUS, Starting on Mon03/20/23 at 1445, Until Mon03/21/23 at 1107, Pre-Op 1433 (New Bag - Provider: Lucy Saldaña RN)1513 (Continue from Pre-Op - Provider: Khadar Hurley CRNA)1543 (Stopped - Provider: Khadar Hurley CRNA) PRN Medication Order 03/19/2023 03/20/2023 03/21/2023 Acetaminophen (Tylenol) tab 975 mg 975 mg, Oral, Q6H PRN Pain, Moderate, Pain, Mild, Starting on Mon03/20/23 at 1809, Until Mon03/21/23 at 1754, Maximum of 4 grams (4000 mg) per day. Famotidine (Pepcid) tab 20 mg 20 mg, Oral, HS PRN Other, heartburn/reflux symptoms, Starting on Mon03/20/23 at 0145, Until Mon03/21/23 at 1754 0206 (Given - Provider: Elisabeth Santacruz RN) hEParin 1000 UNIT/ML inj 1,500 Units (CANCELED) 1,500 Units (rounded from 1,479 Units = 30 Units/kg 49.3 kg), IV Push, PRN Other, If most recent Heparin Assay result is less than or equal to 0.2 units/mL, Starting on Mon03/20/23 at 1654, Until Mon03/21/23 at 1150, Repeat Heparin Assay 6 hours after bolus is administered. Send message to pharmacy if dose needed. 0059 (Given - Provid er: Cristal Preston, TI)0849 (Given - Provider: Hollie Martinez RN - Comment: hepU 0.14) sodium chloride 0.9 % flush/inj 3 mL 3 mL, IV Push, PRN Other, Line Patency, Starting on Mon03/20/23 at 0134, Until Mon03/21/23 at 1754, Do not flush if lock, PICC, or central line not in place, IV infusing or unable to flush Linked Groups Order Group 1: Apixaban (Eliquis) tab 10 mgJump to med 10 mg, Oral, BID(AM/PM)
First dose on Mon03/21/23 at 1200, Last dose on Mon03/27/23 at 2100
For 14 doses Followed by Apixaban (Eliquis) tab 5 mgJump to med 5 mg, Oral, BID(AM/PM)
First dose on Mon03/28/23 at 0900, Until Discontinued documented in this encounter Advance Directives Documents on File Type Date Recorded Patient Canvassing Manager Expl anation Advance Directives and Living Will 06/24/2022 ADVANCE DIRECTIVE / LIVING WILL Power of Financial Services Sales Representative 06/24/2022 POWER OF A TTORNEY Latest Code Status on File Code Status Date Activated Date Inactivated Comments No Code 03/20/2023 1:42 AM 03/21/2023 5:59 PM This order reflects the patients wishes and were consensually agreed upon. Question Answer Comments Discussion of Advance Directives occurred with: Patient Care Teams Full Stack Engineer Relationship Specialty Start Date End Date Jamie Wynn DO [address] [place] [address] PCP - General Family Medicine 08/08/16 documented as of this encounter
--- OUTSIDE RECORDS SUMMARY | 2023-07-05 14:51 | External Medical Summary ---
Author Name Unknown Address Unknown Organization K01:[facility] [place] [address] [place] [address] Laboratory Report Ordering Provider Test Date Status JACKIE ASHTON 2023 14:27:23 Final Observation Date Value Abnormality Reference (Units ) Status WBC, Total 2023 14:27:23 10.06 4.00-10.8 0 (K/uL) Final RBC 2023 14:27:23 3.76 3.85-5.15 (M/uL) Final Hemoglobin 2023 14:27:23 9.9 Below low normal 12 .0-15.3 (g/dL) Final Performing Location LABORATORY [facility] - [address] [place] [address]
--- OUTSIDE RECORDS SUMMARY | 2023-07-05 14:51 | External Medical Summary | Summary of Care ---
Author Name Unknown Organization [facility] Address [address] [place] [address] Phone [phone] Care Team Providers Care Central Supply Supervisor Name Role Phone Jamie Wynn DO Primary Care Provider [phone] Encounter Details Date Type Department Care Team Description 03/19/2023 CardioDiagnostic Study [address] [id number] Davin Red MD [address] [place] [address] EKG Report Allergies No known active allergiesdocumented as of [...] [facility] DET[facility] Study: Project # [id number], Medical Staff Physician: Khadar Dodd, PhD. SUMMARY: Goal: Establish test [...] contact study staff at ; after hours Medical Staff Physician via the [facility] bow machine operator . Please contact study team before resolving/deleting from patients problem list. Study phone number: [phone]. Diagnosis changed due to Research Module. Go to Snapshot for study details. Encounter for examination fo r normal comparison and control in clinical research program 11/21/2017 06/30/2022 Overview: DO NOT DELETE - [facility] Study: Project # [id number], Medical Staff Physician: Mykel Gill, MS, MPH. SUMMARY: Goal: Establish [...] contact study staff at ; after hours Medical Staff Physician via the [facility] hospital bow machine operator . - Please contact study team before resolving/deleting from patients problem list. Study phone number: [phone]. Diagnosis changed due to Research Module. Go [...] (15 years old or older) No 09/02/20 21 Cognitive Status Response Date of Assessm ent Because of a physical, menta l, or emotional condition, do you have serious difficulty concentrating, remembering, or making decisions? (5 years old or older No 09/02/2021 documented as of this encounter Procedure Notes * Favian Bowman MD - 03/19/2023 1:30 PM EDTAssociated Order(s): EKG REPORT REASON FOR STUDY: CONCLUSIONS: Atrial fibrillation with rapid ventricular response Anteroseptal infarct , age undetermined Nonspecific ST abnormality Low voltage QRS, consider pulmonary disease, pericardial effusion, or normal variant When compared with ECG of 20-JUL-2022 09:29, Atrial fibrillation has replaced Sinus rhythm Vent. rate has increased BY 94 BPM Anteroseptal infarct is now Present Nonspecific T wave abnormality now evident in Inferior leads Ventricular Rate: 153 QRS Duration: 80 QT/QTc: 286/456 ms P-R-T [place]: 0 : 69 : 71 degrees documented in this encounter Plan of Treatment Upcoming Encounters Date Type Specialty Care Team Description 2023 Office Visit Family Medicine Farhana Doll PA-C [address] [place] [address] 03/29/2023 Appointment Radiology 03/30/2023 Office Visit Hematology Oncology Traci Mitchell MD [address] [place] [address] 03/31/2023 Appointment Radiology 04/05/2023 Office Visit Pulmonary Alaniz, Komal Menchaca MD [address] [place] [address] Health Maintenance Due Date Last [...] Procedure Name Priority Date/Time Associated Diagnosis Comments EKG REPORT 03/19/2023 1:30 PM EDT documented in this encounter Results * EKG REPORT (03/19/2023 1:30 PM EDT) 03/19/2023 1:30 PM EDT Procedure Note Favian Bowman MD - 03/19/2023 1:30 PM EDT REASON FOR STUDY: CONCLUSIONS: Atrial fibrillation with rapid ventricular response Anteroseptal infarct , age undetermined Nonspecific ST abnormality Low voltage QRS, consider pulmonary disease, pericardial effusion, ornormal variant When compared with ECG of 20-JUL-2022 09:29, Atrial fibrillation has replaced Sinus rhythm Vent. rate has increased BY 94 BPM Anteroseptal infarct is now Present Nonspecific T wave abnormality now evident in Inferior leads Ventricular Rate: 153 QRS Duration: 80 QT/QTc: 286/456 ms P-R-T [place]: 0 : 69 : 71 degrees J Vazquez Red MD EKG documented in this encounter Additional Health Concerns Infection Onset Date Last Indicated Resolved Time Respiratory Rule-Out 03/19/2023 03/19/2023 023 3:06 PM EDT COVID-19 Rule-Out 03/19/2023 03/19/2023 03/19/2023 3:06 PM EDT documented as of this encounter Advance Directives Documents on File Type Date Recorded Patient Cyber Policy And Strategy Planner Expl anation Advance Directives and Living Will 06/24/2022 ADVANCE DIRECTIVE / LIVING WILL Power of Master Ocean [employer] 06/24/2022 POWER OF A TTORNEY Latest Code Status on File Code Status Date Activated Date Inactivated Comments No Code 03/20/2023 1:42 AM 03/21/2023 5:59 PM This order reflects the patients wishes and were consensually agreed upon. Question Answer Comments Discussion of Advance Directives occurred with: Patient Care Teams Central Supply Supervisor Relationship Specialty Start Date End Date Jamie Wynn, [address] [place] [address] PCP - General Family Medicine 08/08/16 documented as of this encounter
--- OUTSIDE RECORDS SUMMARY | 2023-07-05 14:52 | External Medical Summary ---
Author Name Unknown Address Unknown Organization K01:[facility] [place] [address] [place] [address] Laboratory Report Ordering Provider Test Date Status BUD UMANA 03/21/2023 06:57:00 [place] l Observation Date Value Abnormality Reference (Units ) Status PT 03/21/2023 06:57:00 15.7 Above high normal 11 .6-15.2 (seconds) Final INR 03/21/2023 06:57:00 1.2 0.8-1.2 Final Performing Location [facility] [place] [address] [place] [address]
--- OUTSIDE RECORDS SUMMARY | 2023-07-05 14:52 | External Medical Summary ---
Author Name Unknown Address Unknown Organization K01:[facility] [place] [address] [place] [address] Laboratory Report Ordering Provider Test Date Status JUAN,KANAPARTHY 03/21/2023 06:57:00 Final Observation Date Value Abnormality Reference (Units ) Status Heparin, unfractionated level 03/21/2023 06:57:00 0.14 Above high normal <0.10 (IU/mL) Final Performing Location [facility] [place] [place] [address] [place] [address]
--- OUTSIDE RECORDS SUMMARY | 2023-07-05 14:52 | External Medical Summary | Summary of Care ---
Author Name Unknown Organization [facility] Address [address] [place] [address] Phone [phone] Care Team Providers Care Coloring Machine Operator Name Role Phone Jamie Wynn DO Primary Care Provider Reason for Referral * Precert (Within 10 days (routine)) - Authorized Specialty Diagnoses / Procedures Referred By Yamilethac t Referred To Contact Radiology Diagnoses Mass of upper lobe of left lung Procedures MRI BRAIN W WO CONTRAST Traci Mitchell MD [address] [place] [address] Referral ID Status Reason Start Date Expiration Date V isits Requested Visits Authorized [id number] Authorized 03/21/2023 999 999 * Precert (Within 10 days (routine)) - Authorized Specialty Diagnoses / Procedures Referred By Lubna t Referred To Contact Radiology Diagnoses Mass of upper lobe of left lung Procedures PET CT SKULL BASE TO MID-THIGH Traci Mitchell MD [address] [place] [address] Referral ID Status Reason Start Date Expiration Date V isits Requested Visits Authorized [id number] Authorized 03/21/2023 999 999 Reason for Visit * Reason Onset Date Comments Referral 03/13/2023 New patient refe rral triage Encounter Details Date Type Department Care Team Description 03/13/2023 New Patient Triage (SUPERVISOR DRIED YEAST USE ONLY) Hematology Oncology [facility] [address] [place] [address] Traci Mitchell MD [address] [place] [address] Referral (New patient referral triage) Allergies No known active allergiesdocumented as of this encounter (statuses as of 03/21/2023) Medications Medication Sig Dispensed Refills Start Date End Date Status Vitamin D 25 MCG (1000 UT) Oral Tablet Take 1 Tablet by mouth in the morning. 0 Suspended Amoxicillin-Pot Clavulanate 875-125 MG Oral Tablet Take 1 Tablet by mouth in the morning and 1 Tablet before bedtime. Do all this for 10 days. 20 Tablet 0 03/12/2023 3 Discontinued(R efill) Omeprazole 20 MG Oral Capsule Delayed Release (PriLOSEC)Indicat ions:Gastroesopha geal reflux disease, unspecified whether esophagitis present,Anemia, unspecified type Take 1 Capsule by mouth in the morning. 1 hour before the first meal of the day. 30 Capsule 1 03/12/2023 3 Discontinued(R efill) Vitron-C 65-125 MG Oral Tablet (Iron-Vitamin C 65-125 mg per tab)Indications:O ther iron deficiency anemia Take 1 Tablet by mouth in the morning and 1 Tablet before bedtime. For iron supplement, generic, take with food. 60 Tablet 5 03/13/2023 3 Discontinued(R efill) documented as of this encounter (statuses as of 03/21/2023) Active Problems Problem Noted Date Generalized weakness [...] as of this encounter (statuses as of 03/21/2023) Resolved Problems Problem Noted Date Resolved Date Encounter for examination fo r normal comparison and control in clinical research program 11/21/2017 06/01/2020 Overview: DO NOT DELETE [facility] DETECT Study: Project # [id number], Chocolate Production Machine Operator: Khadar Dodd, PhD. SUMMARY: Goal: [...] contact study staff at ; after hours Chocolate Production Machine Operator via the [facility] hospital spreader operator . Please contact study team before resolving/deleting from patients problem list. Study phone number: [phone]. Diagnosis changed due to Research Module. Go to Snapshot for study details. Encounter for examination fo r normal comparison and control in clinical research program 11/21/2017 06/30/2022 Overview: DO NOT DELETE - [facility] DETECT Study: Project # [id number], Chocolate Production Machine Operator: Mykel Gill, MS, MPH. SUMMARY: [...] contact study staff at ; after hours Chocolate Production Machine Operator via the [facility] hospital spreader operator . - Please contact study team before resolving/deleting from patients problem list. Study phone number: [phone]. Diagnosis changed due to Research Module. Go to Snapshot for study details. documented as of this encounter (statuses as of 03/21/2023) Immunizations Name Administration Dates Next Due Covid-19 [...] No 09/02/2021 documented as of this encounter Progress Notes * Delilah Menjivar RN - 03/21/2023 1:31 PM EDT Scheduling to call patient to offer her an appointment next week * Delilah Menjivar RN - 03/15/2023 12:39 PM EDT Patient having bronchoscopy on 03/[address] Graham. IR biopsy order will be canceled. PET scan is scheduled on 03/29/2023. Will continue to follow chart. * Traci Mitchell MD - 03/14/2023 4:59 PM EDT MEDICAL ONCOLOGY TRIAGE NOTE Is diagnosis confirmed?: No Is baseline/staging imaging completed?: No Are pre-visit labs completed?: No Is bone marrow biopsy recommended?: No Is [facility] [place] recommended?: No RECOMMENDATIONS: PET/CT IR for CT guided Bx and send for NGS--can do Axillary LN if Pet Avid MRI brain [facility] appt in 2 weeks with above workup and labs, CBC, CMP, Hep Panel, HIV, LDH, Uric acid CT chest 03/12/23: IMPRESSION 1. An irregularly-shaped masslike left upper lobe [...] left pleural effusion. 8. Coronary artery calcifications. * Delilah Menjivar RN - 03/13/2023 10:09 AM EDT New Patient Triage 3 day urgent What is the diagnosis/reason for referral?: Anemia/ CT with suspicious mass recommending biopsy Enter order ID here: [id number] Specialty specific documentation: Hematology/Oncology NEW PATIENT - HEMATOLOGY/ONCOLOGY SPECIALTY TRIAGE Triage needed?: Yes Referring provider name: Sheron HERNANDEZ, Jamie Wynn MD Confirmation of diagnosis: No TRIAGE PLAN: Baseline/staging imaging complete: No CT chest on 03/12/2023 IMPRESSION 1. An irregularly-shaped masslike left upper lobe [...] left pleural effusion. 8. Coronary artery calcifications. Labs available: Yes Referral to other specialty recommended (ie. Surgery, outpatient infusion): Yes STAIR program, colonoscopy/endoscopy referral Additional triage comments: seen at PCP on 03/09/2023 for cold/flu symptoms documented in this encounter Miscellaneous Notes * Addendum Note - Delilah Menjivar RN - 03/15/2023 12:40 PM EDTAddended by: DELILAH MENJIVAR on: 03/15/2023 12:40 PM Modules accepted: Orders documented in this encounter Plan of Treatment Upcoming Encounters Date Type Specialty Care Team Description 03/29/2023 Appointment Radiology 03/30/2023 Office Visit Family Medicine DepZofia hughes CRNP [address] [place] [address] 03/31/2023 Appointment Radiology 04/05/2023 Office Visit Pulmonary Alaniz, Komal Menchaca MD [address] [place] [address] 08/31/2023 Office Visit Family Medicine Zofia Woodward CRNP [address] [place] [address] Scheduled Orders Name Type Priority Associated Diagnoses Orde r Schedule PET CT SKULL BASE TO MID-THIGH Medical Imaging Routine Mass of upper lobe of left lung Expected: 03/21/2023, Expires: 04/14/2024 MRI BRAIN W WO CONTRAST Medical Imaging Routine Mass of upper lobe of left lung Expected: 03/21/2023, Expires: 04/14/2024 Health Maintenance Due Date Last Done Comments [...] Diagnosis Mass of upper lobe of left lung- Primary documented in this encounter Additional Health Concerns Infection Onset Date Last Indicated Resolved Time Respiratory Rule-Out 03/19/2023 03/19/2023 023 3:06 PM EDT COVID-19 Rule-Out 03/19/2023 03/19/2023 03/19/2023 3:06 PM EDT documented as of this encounter Advance Directives Documents on File Type Date Recorded Patient Manager Warehouse Expl anation Advance Directives and Living Will 06/24/2022 ADVANCE DIRECTIVE / LIVING WILL Power of Operator Prefinish 06/24/2022 POWER OF A TTORNEY Latest Code Status on File Code Status Date Activated Date Inactivated Comments No Code 03/20/2023 1:42 AM This order reflects the patients wishes and were consensually agreed upon. Question Answer Comments Discussion of Advance Directives occurred with: Patient Care Teams Coloring Machine Operator Relationship Specialty Start Date End Date Jamie Wynn DO [address] [place] [address] PCP - General Family Medicine 08/08/16 documented as of this encounter
--- OUTSIDE RECORDS SUMMARY | 2023-07-05 14:52 | External Medical Summary | Summary of Care ---
Author Name Unknown Organization [facility] Address [address] [place] [address] Phone [phone] Care Team Providers Care Pole Truck Driver Name Role Phone Jamie Wynn DO Primary Care Provider Reason for Referral * Precert (Within 10 days (routine)) - Authorized Specialty Diagnoses / Procedures Referred By Yamilethac t Referred To Contact Radiology Diagnoses Mass of upper lobe of left lung Procedures MRI BRAIN W WO CONTRAST Traci Mitchell MD [address] [place] [address] Referral ID Status Reason Start Date Expiration Date V isits Requested Visits Authorized [id number] Authorized 03/21/2023 999 999 * Precert (Within 10 days (routine)) - Authorized Specialty Diagnoses / Procedures Referred By Lubna t Referred To Contact Radiology Diagnoses Mass of upper lobe of left lung Procedures PET CT SKULL BASE TO MID-THIGH Traci Mitchell MD [address] [place] [address] Referral ID Status Reason Start Date Expiration Date V isits Requested Visits Authorized [id number] Authorized 03/21/2023 999 999 Reason for Visit * Reason Onset Date Comments Referral 03/13/2023 New patient refe rral triage Encounter Details Date Type Department Care Team Description 03/13/2023 New Patient 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 0 Active Amoxicillin-Pot Clavulanate 875-125 MG Oral Tablet Take 1 Tablet by mouth in the morning and 1 Tablet before bedtime. Do all this for 10 days. 20 Tablet 0 03/12/2023 03/17/2023 Discontinued (Refill) Omeprazole 20 MG Oral Capsule Delayed Release (PriLOSEC)Indicati ons:Gastroesophage al reflux disease, unspecified whether esophagitis present,Anemia, unspecified type Take 1 Capsule by mouth in the morning. 1 hour before the first meal of the day. 30 Capsule 1 03/12/2023 03/17/2023 Discontinued (Refill) Vitron-C 65-125 MG Oral Tablet (Iron-Vitamin C 65-125 mg per tab)Indications:Ot her iron deficiency anemia Take 1 Tablet by mouth in the morning and 1 Tablet before bedtime. For iron supplement, generic, take with food. 60 Tablet 5 03/13/2023 03/17/2023 Discontinued (Refill) documented as of this encounter [...] [facility] DETECT Study: Project # [id number], English Composition Instructor: Khadar Dodd, PhD. SUMMARY: Goal: Establish test [...] contact study staff at ; after hours English Composition Instructor via the [facility] hospital binitrotoluene operator . Please contact study team before resolving/deleting from patients problem list. Study phone number: [phone]. Diagnosis changed due to Research Module. Go to Snapshot for study details. Encounter for examination fo r normal comparison and control in clinical research program 11/21/2017 06/30/2022 Overview: [facility] NOT DELETE - [facility] Study: Project # [id number], English Composition Instructor: Mykel Gill, MS, MPH. SUMMARY: Goal: Establish [...] contact study staff at ; after hours English Composition Instructor via the [facility] binitrotoluene operator . - Please contact study team before resolving/deleting from patients problem list. Study phone number: [phone]. Diagnosis changed due to Research Module. Go [...] Notes * Delilah Menjivar RN - 03/21/2023 2:47 PM EDT Patient accepted an appointment on 03/[address] Mitchell * Delilah Menjivar RN - 03/21/2023 1:31 [...] Is bone marrow biopsy recommended?: No Is [facility] clinic review recommended?: No RECOMMENDATIONS: PET/CT IR for CT guided Bx and send for NGS--can do Axillary LN if Pet Avid MRI brain [facility] appt in 2 weeks with above workup [...] mass recommending biopsy Enter order ID here: [id number] Specialty specific documentation: Hematology/Oncology NEW PATIENT - [...] Visit Family Medicine DepZofia hughes CRNP [address] [place] [address] 03/30/2023 Office Visit Hematology Oncology Traci Mitchell MD [address] [place] [address] 03/31/2023 Appointment Radiology 04/05/2023 Office Visit Pulmonary Alaniz, Komal Menchaca MD [address] [place] [address] 08/31/2023 Office Visit Family Medicine DepZofia hughes CRNP [address] [place] [address] Scheduled Orders Name Type Priority Associated Diagnoses [...] Documents on File Type Date Recorded Patient Health Unit Supervisor Expl anation Advance Directives and Living Will 06/24/2022 ADVANCE DIRECTIVE / LIVING WILL Power of Oil Well Cable Tool Driller 06/24/2022 POWER OF A TTORNEY Latest Code Status on File Code Status Date Activated Date Inactivated Comments No Code 03/20/2023 1:42 AM This order reflects the patients wishes and were consensually agreed upon. Question Answer Comments Discussion of Advance Directives occurred with: Patient Care Teams Pole Truck Driver Relationship Specialty Start Date End Date Jamie Wynn DO [address] [place] [address] PCP - General Family Medicine 08/08/16 documented as of this encounter
--- OUTSIDE RECORDS SUMMARY | 2023-07-05 14:52 | External Medical Summary ---
Author Name Unknown Address Unknown Organization K01:[facility] [place] [address] [address] Laboratory Report Ordering Provider Test Date Status ZOILA MATOS 03/21/2023 06:57:00 Final Observation Date Value Abnormality Reference (Units ) Status BUN 03/21/2023 06:57:00 12 6-20 (mg/dL) Final Creatinine 03/21/2023 06:57:00 0.8 0.5-1.0 (mg/dL) Final Glomerular filtration rate/1.73 sq M.predicted [Volume Rate/Area] in Serum, Plasma or Blood by Creatinine-based formula (CKD-EPI) 03/21/2023 06:57:00 78 >=60 (mL/min) Final Performing Location LABORATORY C - [address] [place] [address]
--- OUTSIDE RECORDS SUMMARY | 2023-07-05 14:52 | External Medical Summary ---
Author Name Unknown Address Unknown Organization K01:LABORATORY [facility] [place] - [address] [facility] [address] Laboratory Report Ordering Provider Test Date Status BUD UMANA 03/20/2023 08:21:44 Paris l Observation Date Value Abnormality Reference (Units ) Status Color of Urine by Auto 03/20/2023 08:21:44 Yellow Colorless, Light Yellow, Yellow, Dark Yellow Final Clarity, Urine 03/20/2023 08:21:44 Clear Clear Final Glucose [Mass/volume] in Urine by Automated test strip 03/20/2023 08:21:44 Negative Negative (mg/dL) Final Bilirubin.total [Presence] in Urine by Automated test strip 03/20/2023 08:21:44 Negative Negative Final Ketones [Mass/volume] in Urine by Automated test strip 03/20/2023 08:21:44 Negative Negative (mg/dL) Final Specific gravity, Urine 03/20/2023 08:21:44 >1.050 Above high normal 1.003-1.030 Final Hemoglobin [Presence] in Urine by Automated test strip 03/20/2023 08:21:44 Negative Negative Final pH, Urine 03/20/2023 08:21:44 6.0 5.0-7.5 (Units) Final Protein [Mass/volume] in Urine by Automated test strip 03/20/2023 08:21:44 30 Abnormal Negative (mg/dL) Final Urobilinogen [Mass/volume] in Urine by Automated test strip 03/20/2023 08:21:44 Normal Normal (mg/dL) Final Nitrite [Presence] in Urine by Automated test strip 03/20/2023 08:21:44 Negative Negative Final Leukocyte esterase [Presence] in Urine by Automated test strip 03/20/2023 08:21:44 Small Abnormal Negative Final RBC, Urine 03/20/2023 08:21:44 3-5 Abnormal 0-2 (/HPF) Final WBC, Urine 03/20/2023 08:21:44 10-19 Abnormal 0-2 (/HPF) Final Bacteria [#/area] in Urine sediment by Microscopy high power field 03/20/2023 08:21:44 26-50 Abnormal 0-25 (/HPF) Final Performing Location LABORATORY [facility] - [facility] [address] [facility] [address]
--- OUTSIDE RECORDS SUMMARY | 2023-07-05 14:52 | External Medical Summary | Summary of Care ---
Author Name Unknown Organization [facility] Address [address] [place] [address] Phone [phone] Care Team Providers Care Stitcher Utility Name Role Phone Jamie Mott DO Primary Care Provider Reason for Visit * Reason Onset Date Comments Hospital Follow-Up 03/21/2023 [facility] 5.23.2 3 Pcp 1wk f/uPlease assist Pt with date/tme.Thank you. Encounter Details Date Type Department Care Team Description 03/21/2023 Telephone Family Fred Costa [address] [place] [address] Jamie Mott DO [address] [place] [address] Hospital Follow-Up ([facility] 5..23 Pcp 1wk... Allergies No known active allergiesdocumented as of this encounter (statuses as of 03/21/2023) Medications Medication Sig Dispensed Refills Start Date End Date Status Apixaban 5 MG Oral Tablet (Eliquis) Take 2 Tablets (10 mg) by mouth 2 times a day for 7 days, THEN take 1 tablet (5 mg) 2 times a day for 21 days. 70 Tablet 0 03/21/2023 3 Active Famotidine 20 MG Oral Tablet (Pepcid) Take 1 Tablet by mouth daily at bedtime as needed for heartburn/reflux symptoms. 30 Tablet 0 03/21/2023 3 Active Vitamin D 25 MCG (1000 UT) Oral Tablet Take 1 Tablet by mouth in the morning. 0 Suspended Omeprazole 20 MG Oral Capsule Delayed Release (PriLOSEC)Indicat ions:Gastroesopha geal reflux disease, unspecified whether esophagitis present,Anemia, unspecified type Take 1 Capsule by mouth in the morning. 1 hour before the first meal of the day. 30 Capsule 1 03/17/2023 Suspended Additional Information Vitron-C 65-125 MG Oral Tablet (Iron-Vitamin C 65-125 mg per tab)Indications:O ther iron deficiency anemia Take 1 Tablet by mouth in the morning and 1 Tablet before bedtime. For iron supplement, generic, take with food. 60 Tablet 5 03/17/2023 Suspended Additional Information documented as of this encounter (statuses as [...] [facility] DETECT Study: Project # [id number], On Site Soil Evaluator: Khadar Dodd, PhD. SUMMARY: Goal: Establish test [...] contact study staff at ; after hours On Site Soil Evaluator via the [facility] disk operator . Please contact study team before resolving/deleting from patients problem list. Study phone number: [phone]. Diagnosis changed due to Research Module. Go to Farmigo for study details. Encounter for examination fo r normal comparison and control in clinical research program 11/21/2017 06/30/2022 Overview: DO NOT DELETE - [facility] Study: Project # [id number], On Site Soil Evaluator: Mykel Gill, MS, MPH. SUMMARY: Goal: Establish [...] contact study staff at ; after hours On Site Soil Evaluator via the [facility] disk operator . - Please contact study team before resolving/deleting from patients problem list. Study phone number: [phone]. Diagnosis changed due to Research Module. Go [...] encounter Miscellaneous Notes * Telephone Encounter - JULIA Hernandez ASSIST - 03/21/2023 11:49 AM EDT Pt scheduled * Telephone Encounter - Trini Briceño/KRISTA Yang - 03/21/2023 11:31 AM EDT [facility] 03.21.23 Pcp 1wk f/u Please assist Pt with date/tme. Thank you. Order RETURN APPT [IP355] (Order [id number]) Reba Gonzalez 03/20/2023 12:10 AM Admission Description: 77 year old female Department: [facility] Message Patient Name: REBA GONZALEZ([id number]) Sex: Female : 1945 PCP: JAMIE MOTT Center: [facility] Types of orders made on 03/21/2023: Consult, IP Post Discharge , Lab, Medications Order Date:03/21/2023 Ordering User:SHAWNA OCONNOR [[id number]] Attending Provider:Nancy Goel DO [[id number]] Authorizing Provider: Shawna Oconnor DMD [[id number]] Department:[facility][[id number]] Order Specific Information Order: RETURN APPT [CUSTOM: IP355] Order #: [id number]: [id number] Priority: Routine Class: Nursing Unit Department (Single Entry) -> Family Practice Appt Needed Within: (Specify # of Days, Weeks, Months) -> 1 Wk Prov ider -> JAMIE MOTT Released on: 03/21/2023 11:19 AM documented in this encounter Plan of Treatment Upcoming Encounters Date Type Specialty Care Team Description 03/29/2023 Appointment Radiology 03/30/2023 Office Visit Family Medicine Depoe, DAVID Cortez [address] [place] [phone] 03/31/2023 Appointment Radiology 04/05/2023 Office Visit Pulmonary Alaniz, Komal Menchaca MD [address] [facility] [place] [address] 08/31/2023 Office Visit Family Medicine DepZofia hughes CRNP [address] [place] [address] Health Maintenance Due Date Last Done Comments [...] Documents on File Type Date Recorded Patient Nurse Administrator Expl anation Advance Directives and Living Will 06/24/2022 ADVANCE DIRECTIVE / LIVING WILL Power of Utilization Specialist 06/24/2022 POWER OF A TTORNEY Latest Code Status on File Code Status Date Activated Date Inactivated Comments No Code 03/20/2023 1:42 AM This order reflects the patients wishes and were consensually agreed upon. Question Answer Comments Discussion of Advance Directives occurred with: Patient Care Teams Stitcher Utility Relationship Specialty Start Date End Date Jamie Mott DO [address] [place] [address] PCP - General Family Medicine 08/08/16 documented as of this encounter
--- OUTSIDE RECORDS SUMMARY | 2023-07-05 14:52 | External Medical Summary ---
Author Name Unknown Address Unknown Organization K01:LABORATORY [facility] [place] - [facility] [place] [address] [facility] [address] [facility] [address] Laboratory Report Ordering Provider Test Date Status BUD UMANA 03/21/2023 06:57:00 [place] l Observation Date Value Abnormality Reference (Units ) Status WBC, Total 03/21/2023 06:57:00 11.43 Above high normal 4.00-10.80 (K/uL) Final RBC 03/21/2023 06:57:00 3.51 3.85-5.15 (M/uL) Final Hemoglobin 03/21/2023 06:57:00 9.2 Below low normal 12.0-15.3 (g/dL) Final HCT 03/21/2023 06:57:00 28.3 Below low normal 36.0-45.2 (%) Final MCV 03/21/2023 06:57:00 80.6 81.5-97.5 (fL) Final MCH 03/21/2023 06:57:00 26.2 27.0-34.0 (pg) Final MCHC 03/21/2023 06:57:00 32.5 32.0-36.0 (g/dL) Final RDW 03/21/2023 06:57:00 13.6 11.5-15.5 (%) Final Platelets 03/21/2023 06:57:00 522 Above high normal 140-400 (K/uL) Final MPV 03/21/2023 06:57:00 8.8 6.6-11.1 (fL) Final Nucleated erythrocytes/100 leukocytes [Ratio] in Blood by Automated count 03/21/2023 06:57:00 0 <=0 (/100 WBCs) Final Performing Location LABORATORY [facility] [place] - [address] [place] [address]
--- OUTSIDE RECORDS SUMMARY | 2023-07-05 14:52 | External Medical Summary ---
Author Name Unknown Address Unknown Organization K01:[facility]ORY [facility] [place] [address] [facility] [place] [address] Laboratory Report Ordering Provider Test Date Status ZOILA MATOS 03/20/2023 11:50:00 Final Observation Date Value Abnormality Reference (Units ) Status BUN 03/20/2023 11:50:00 14 6-20 (mg/dL) Final Creatinine 03/20/2023 11:50:00 0.7 0.5-1.0 (mg/dL) Final Glomerular filtration rate/1.73 sq M.predicted [Volume Rate/Area] in Serum, Plasma or Blood by Creatinine-based formula (CKD-EPI) 03/20/2023 11:50:00 90 >=60 (mL/min) Final Performing Location LABORATORY [facility] [place] [address] [place] [address]
--- OUTSIDE RECORDS SUMMARY | 2023-07-05 14:52 | External Medical Summary ---
Author Name Unknown Address Unknown Organization K01:LABORATORY [facility] - [facility] [place] [address] [facility] [address] [facility] [address] Laboratory Report Ordering Provider Test Date Status ZOILA MATOS 03/20/2023 11:53:00 Final Observation Date Value Abnormality Reference (Units ) Status WBC, Total 03/20/2023 11:53:00 13.95 Above high normal 4.00-10.80 (K/uL) Final RBC 03/20/2023 11:53:00 3.48 3.85-5.15 (M/uL) Final Hemoglobin 03/20/2023 11:53:00 9.1 Below low normal 12.0-15.3 (g/dL) Final HCT 03/20/2023 11:53:00 27.9 Below low normal 36.0-45.2 (%) Final MCV 03/20/2023 11:53:00 80.2 81.5-97.5 (fL) Final MCH 03/20/2023 11:53:00 26.1 27.0-34.0 (pg) Final MCHC 03/20/2023 11:53:00 32.6 32.0-36.0 (g/dL) Final RDW 03/20/2023 11:53:00 13.3 11.5-15.5 (%) Final Platelets 03/20/2023 11:53:00 545 Above high normal 140-400 (K/uL) Final MPV 03/20/2023 11:53:00 8.8 6.6-11.1 (fL) Final Nucleated erythrocytes/100 leukocytes [Ratio] in Blood by Automated count 03/20/2023 11:53:00 0 <=0 (/100 WBCs) Final Performing Location LABORATORY [facility] - [address] [place] [address]
--- OUTSIDE RECORDS SUMMARY | 2023-07-05 14:52 | External Medical Summary ---
Author Name Unknown Address Unknown Organization K01:[facility] [place] [address] [place] [address] Laboratory Report Ordering Provider Test Date Status BUD UMANA 03/20/2023 08:21:44 [place] l Observation Date Value Abnormality Reference (Units ) Status Sodium, Urine 03/20/2023 08:21:44 24 (mmol/ L) Final Performing Location LABORATORY [facility] - [address] [facility] [address]
--- OUTSIDE RECORDS SUMMARY | 2023-07-05 14:52 | External Medical Summary ---
Author Name Unknown Address Unknown Organization K01:[place] [place] [address] [place] [address] Laboratory Report Ordering Provider Test Date Status ZOILA MATOS 03/20/2023 17:15:00 Final Observation Date Value Abnormality Reference (Units ) Status Heparin, unfractionated level 03/20/2023 17:15:00 <0.10 <0.10 (IU/mL) Final Performing Location LABORATORY C - [address] [place] [address]
--- OUTSIDE RECORDS SUMMARY | 2023-07-05 14:52 | External Medical Summary | Summary of Care ---
Author Name Unknown Organization [facility] Address [address] [place] [address] Phone [phone] Care Team Providers Care Prosthetic Assistant Name Role Phone PaxtonlisaJamie DO Primary Care Provider [phone] Reason for Visit * Reason Comments Weakness, Generalized Pt reports feeling unwell since March 03. Has been seen by PCP and had xrays and CT. Today was brought to ED for increasing weakness and not getting better. Per daughter pt has had syncopal episodes at home. Pt denies increased SOB. Son reports she has been SOB with minimal exertion at home. * Auth/Cert Specialty Diagnoses / Procedures Referred By Lubna guidry Referred To Contact Referral ID Status Reason Start Date Expiration Date Visits Re quested Visits Authorized [id number] Encounter Details Date Type Department Care Team Description 03/19/2023 Emergency [facility] Emergency Department ([facility]) [address] [place] [address] Davin Red MD [address] [place] [address] Lung mass (Primary Dx); Atrial fibrillation with RVR (HCC); Bilateral pulmonary embolism (HCC); Pleural effusion; Pericardial effusion Allergies No known active allergiesdocumented as of this encounter (statuses as of 03/20/2023) Medications Medication Sig Dispensed Refills Start Date End Date Status Vitamin D 25 MCG (1000 UT) Oral Tablet Take 1 Tablet by mouth in the morning. 0 Suspended Amoxicillin-Pot Clavulanate 875-125 MG Oral Tablet Take 1 Tablet by mouth in the morning and 1 Tablet before bedtime. 20 Tablet 0 03/17/2023 Suspended Additional Information Omeprazole 20 MG Oral Capsule Delayed Release [...] as of this encounter (statuses as of 03/20/2023) Active Problems Problem Noted Date Lung mass 03/14/2023 Cataract 08/08/2016 Family hx-breast [...] as of this encounter (statuses as of 03/20/2023) Resolved Problems Problem Noted Date Resolved Date Encounter for examination fo r normal comparison and control in clinical research program 11/21/2017 06/01/2020 Overview: DO NOT DELETE [facility] DETECT Study: Project # [id number], Bulb Planter: Khadar Dodd, PhD. SUMMARY: Goal: Establish test [...] contact study staff at ; after hours Bulb Planter via the [facility] hospital probe operator . Please contact study team before resolving/deleting from patients problem list. Study phone number: [phone]. Diagnosis changed due to Research Module. Go to Snapshot for study details. Encounter for examination fo r normal comparison and control in clinical research program 11/21/2017 06/30/2022 Overview: DO NOT DELETE - [facility] Study: Project # [id number], Bulb Planter: Mykel Gill, MS, MPH. SUMMARY: Goal: Establish [...] contact study staff at ; after hours Bulb Planter via the [facility] probe operator . - Please contact study team before resolving/deleting from patients problem list. Study phone number: [phone]. Diagnosis changed due to Research Module. Go to Snapshot for study details. documented as of this encounter (statuses as of 03/20/2023) Immunizations Name Administration Dates Next Due Covid-19 [...] Sign Reading Time Taken Comments Blood Pressure 106/55 03/19/2023 11:30 PM EDT Pulse 86 03/19/2023 11:30 PM EDT Temperature - - Respiratory Rate 23 03/19/2023 11:30 PM EDT Oxygen Saturation 96% 03/19/2023 11:30 PM EDT Inhaled Oxygen Concentration - - Weight - - Height - - Body Mass Index - - documented in this encounter Functional Status Functional [...] shopping? (15 years old or older) No 11/04/20 21 Cognitive Status Response Date of Assessm ent Because of a physical, menta l, or emotional condition, do you have serious difficulty concentrating, remembering, or making decisions? (5 years old or older No 09/02/2021 documented as of this encounter Plan of Treatment Upcoming Encounters Date Type Specialty Care Team Description 03/29/2023 Appointment Radiology 03/31/2023 Appointment Radiology 08/31/2023 Office Visit Family Medicine DepZofia hughes CRNP [phone] [place] [id number] Pending Results Name Type Priority Associated Diagnoses Date /Time CULTURE, BLOOD Lab Routine 03/19/2023 2:17 PM EDT CULTURE, BLOOD Lab Routine 03/19/2023 2:10 PM EDT Scheduled Orders Name Type Priority Associated Diagnoses Orde r Schedule URINALYSIS, REFLEX TO MICROSCOPIC Lab STAT Perform Now for 1 Occurrences starting 03/19/2023 until 03/19/2023 Scheduled Procedures Name Priority Associated Diagnoses Date/Ti me BRONCHOSCOPY DIAGNOSTIC WITH OR WITHOUT WASHING Lung disorder 03/20/2023 2:30 PM EDT Health Maintenance Due Date Last [...] Procedure Name Priority Date/Time Associated Diagnosis Comments HEPARIN, UNFRACTIONATED STAT 03/19/20 8:08 PM EDT PT INR Add-on 03/19/2023 8:08 PM EDT APTT STAT 03/19/2023 8:08 PM EDT CBC STAT 03/19/2023 8:08 PM EDT TROPONIN T, HIGH SENSITIVITY STAT 03/19/2023 5:18 PM EDT LACTATE STAT 03/19/2023 5:[address] PULMONARY EMBOLUS W CONTRAST STAT 03/19/2023 3:49 PM EDT XR CHEST 2 VIEWS STAT 03/19/2023 2:36 PM EDT CULTURE, BLOOD Routine 03/19/2023 2:17 PM EDT PROCALCITONIN Routine 03/19/2023 2:10 PM EDT ABO/RH STAT 03/19/2023 2:10 PM EDT TYPE AND SCREEN STAT 03/19/2023 2:10 PM EDT CULTURE, BLOOD Routine 03/19/2023 2:10 PM EDT RESPIRATORY PATHOGEN PANEL, PCR STAT 03/19/2023 2:05 PM EDT LACTATE WITH REFLEX IF ABNORMAL STAT 03/19/2023 2:04 PM EDT DIFFERENTIAL, AUTOMATED STAT 03/19/20 2:04 PM EDT TROPONIN T, HIGH SENSITIVITY STAT 03/19/2023 2:04 PM EDT BNP (NT-PROBNP) STAT 03/19/2023 2:04 PM EDT COMPREHENSIVE METABOLIC PANEL STAT 03/19/2023 2:04 PM EDT D-DIMER STAT 03/19/2023 2:04 PM EDT CBC WITH WBC DIFFERENTIAL STAT 03/19/2023 2:04 PM EDT PHOSPHORUS STAT 03/19/2023 2:04 PM EDT CBC STAT 03/19/2023 2:04 PM EDT TSH STAT 03/19/2023 2:04 PM EDT MAGNESIUM STAT 03/19/2023 2:04 PM EDT GLUCOSE METER, POINT OF CARE UZAIR 03/19/2023 1:48 PM EDT documented in this encounter Results * (ABNORMAL) CBC (03/19/2023 8:08 PM EDT) WBC 15.19(H) 4.00 - 10.80 K/uL 03/19/2023 8:31 PM EDT LABORATORY [facility] RBC 3.99 3.85 - 5.15 M/uL 03/19/2023 8:31 PM EDT LAB[facility]ATORY [facility] HGB 10.3(L) 12.0 - 15.3 g/dL 03/19/2023 8:31 PM EDT LAB[facility] HCT 31.4(L) 36.0 - 45.2 % 03/19/2023 8:31 PM EDT LAB[facility]ATORY [facility] MCV 78.7 81.5 - 97.5 fL 03/19/2023 8:31 PM EDT LAB[facility] MCH 25.8 27.0 - 34.0 pg 03/19/2023 8:31 PM EDT LAB[facility]ATORY [facility] MCHC 32.8 32.0 - 36.0 g/dL 03/19/2023 8:31 PM EDT [facility] RDW 13.2 11.5 - 15.5 % 03/19/2023 8:31 PM EDT [facility] PLT 584(H) 140 - 400 K/uL 03/19/2023 8:31 PM EDT LAB[facility] MPV 9.0 6.6 - 11.1 fL 03/19/2023 8:31 PM EDT [facility] nRBCs 0 <=0 /100 WBCs 03/19/2023 8:31 PM EDT [facility] Blood Venous blood specimen / Unknown Venipuncture / Unknown 03/19/2023 8:08 PM EDT 03/19/2023 8:27 PM EDT Lucy Palacio DO LAB BLOOD ORDERABLES Performing Organization Address [facility] Co de Phone Number [facility] [address] [place] [address] * HEPARIN, UNFRACTIONATED (03/19/2023 8:08 PM EDT) Heparin, Unfractionated <0.10 <0.10 IU/mL 03/19/2023 8:57 PM EDT [facility]ORY [facility] Comment: Unfractionated therapeutic ranges for Anti Xa activity: For Cardiac/Neurologic treatment: 0.3 to 0.6 IU/mL. For treatment of DVT or Pulmonary Embolism: 0.3 to 0.7 IU/mL. Blood Venous blood specimen / Unknown Venipuncture / Unknown 03/19/2023 8:08 PM EDT 03/19/2023 8:27 PM EDT Kelly Carroll PA-C LAB BLOOD ORDERABLE S Performing Organization Address City/[facility]/ZIP Co de Phone Number LAB[facility]ATORY [facility] [address] [place] [address] * APTT (03/19/2023 8:08 PM EDT) aPTT 36 21 - 38 seconds 03/19/2023 8:53 PM EDT [facility] Blood Venous blood specimen / Unknown Venipuncture / Unknown 03/19/2023 8:08 PM EDT 03/19/2023 8:27 PM EDT Narrative LAB[facility]ATORY [facility] - 03/19/2023 8:53 PM EDT Anticoagulation may affect testing. Refer to [employer] Test Catalog for a list of effects. Kelly Carroll PA-C LAB BLOOD ORDERABLE S [facility]ATORY [facility] [address] [place] [address] * (ABNORMAL) PT INR (03/19/2023 8:08 PM EDT) Prothrombin Time 16.5(H) 11.6 - 15.2 seconds 03/19/2023 8:52 PM EDT [facility] INR 1.3(H) 0.8 - 1.2 03/19/2023 8:52 PM EDT [facility] Blood Venous blood specimen / Unknown Venipuncture / Unknown 03/19/2023 8:08 PM EDT 03/19/2023 8:27 PM EDT Narrative [facility]ORY [facility] - 03/19/2023 8:52 PM EDT Warfarin Therapy INR: 2.0-3.0 conventional anticoagulation INR: 2.5-3.5 high intensity anticoagulation Kelly Carroll PA-C LAB BLOOD ORDERABLE S Performing Organization Address [facility]/ZIP Co de Phone Number LAB[facility]ATORY [facility] [address] [place] [address] * (ABNORMAL) TROPONIN T, HIGH SENSITIVITY (03/19/2023 5:18 PM EDT) Pathologist [facility] Troponin T, High Sensitivity 15(H) <=14 ng/L 03/19/2023 5:42 PM EDT LAB[facility]ORY [facility] Blood Venous blood specimen / Unknown Venipuncture / Unknown 03/19/2023 5:18 PM EDT 03/19/2023 5:24 PM EDT Kelly Carroll PA-C LAB BLOOD ORDERABLE S [facility] [address] [place] [address] * LACTATE (03/19/2023 5:18 PM EDT) Lactate 1.8 0.4 - 2.0 mmol/L 03/19/2023 5:38 PM EDT [facility]ORY [facility] Blood Venous blood specimen / Unknown Venipuncture / Unknown 03/19/2023 5:18 PM EDT 03/19/2023 5:24 PM EDT Kelly Carroll PA-C LAB BLOOD ORDERABLE S [facility]ATORY [facility] [address] [place] [address] * CT PULMONARY EMBOLUS W CONTRAST (03/19/2023 3:49 PM EDT) Anatomical Region Laterality Modality Chest, Cardio, Body Computed Nitin ography 03/19/2023 6:44 PM EDT Impressions 03/19/2023 6:41 PM EDT IMPRESSION 1. Subsegmental bilateral pulmonary emboli. 2. Fluid overload as evidence by developing/increasing pleural effusions and pericardial effusion. 3. Left apical mass which is markedly concerning for malignancy. Multiple satellite nodules concerning for metastasis. 4. Diffuse lymphadenopathy within the chest (including hilar mediastinal axillary and retropectoral) concerning for metastasis. Critical Result: The information above was relayed directly by me by telephone to KELLY CARROLL on 03/19/2023 at 6:40 pm who expressed understanding. Narrative 03/19/2023 6:41 PM EDT EXAM EXAM: CT PULMONARY EMBOLUS W CONTRAST DATE and TIME: 03/19/2023 3:49 pm HISTORY CLINICAL INFORMATION: elevated dimer, tachy, dyspnic TECHNIQUE CT of the chest with IV contrast COMPARISON Prior chest CT dated March 19, 2023 FINDINGS MEDIASTINUM AND PAUL: Diffuse lymphadenopathy, for example pretracheal lymph node measuring 18 x 16 millimeters, concerning for neoplasm. Poorly defined left hilar mass measures approximately 36 x 36 millimeters. The esophagus is decompressed. Visualized thyroid is [...] vessel supplying the lingula and right lower lobe are noted. Moderate atherosclerotic calcification of the thoracic aorta and coronary vasculature. UPPER ABDOMEN: Partially visualized 41 millimeter left renal cyst. Procedure Note Trini Reid MD - 03/19/2023 EXAM EXAM: CT PULMONARY EMBOLUS W CONTRAST DATE and TIME: 03/19/2023 3:49 pm HISTORY CLINICAL INFORMATION: elevated dimer, tachy, dyspnic TECHNIQUE CT of the chest with IV contrast COMPARISON Prior chest CT dated March 19, 2023 FINDINGS MEDIASTINUM AND PAUL: Diffuse lymphadenopathy, for example pretracheallymph node measuring 18 x 16 millimeters, concerning for neoplasm. Poorlydefined left hilar mass measures approximately 36 x 36 millimeters. Theesophagus is decompressed. Visualized thyroid is unremarkable. HEART: There is a moderate pericardial effusion, increased in comparisonto CT from March 12, 2023. Heart is enlarged.. LARGE AIRWAYS: Narrowing of airways supplying the left upper lobe forexample on coronal image 55 secondary to poorly defined left hilarlymphadenopathy/mass. LUNGS: Left apical mass with spiculated margins measures approximately 54x 35 millimeters, compatible with neoplasm. Multiple satellite nodulesare present. Bilateral emphysema. Small left pleural effusion, increasedin comparison to CT from March 12, 2023. New trace right pleuraleffusion. PLEURA: As above CHEST WALL/SOFT TISSUES: Poorly defined left axillary and retropectorallymphadenopathy. LINES AND DEVICES: None BONES: Multilevel degenerative changes of the visualized spine. VESSELS: This exam is being performed for the evaluation of pulmonaryembolus. The exam is technically adequate. Subsegmental pulmonary emboliwithin vessel supplying the lingula and right lower lobe are noted.Moderate atherosclerotic calcification of the thoracic aorta and coronaryvasculature. UPPER ABDOMEN: Partially visualized 41 millimeter left renal cyst. IMPRESSION IMPRESSION 1. Subsegmental bilateral pulmonary emboli. 2. Fluid overload as evidence by developing/increasing pleural effusionsand pericardial effusion. 3. Left apical mass which is markedly concerning for malignancy. Multiplesatellite nodules concerning for metastasis. 4. Diffuse lymphadenopathy within the chest (including hilar mediastinalaxillary and retropectoral) concerning for metastasis. Critical Result: The information above was relayed directly by me by telephone to KELLY CARROLL on 03/19/2023 at 6:40 pm who expressed understanding. Kelly Carroll PA-C RAD CT * XR CHEST 2 VIEWS (03/19/2023 2:36 PM EDT) Anatomical Region Laterality Modality Chest Computed Radiogr aphy 03/19/2023 3:31 PM EDT Impressions 03/19/2023 3:29 PM EDT IMPRESSION 1. Mild CHF. 2. Left apical mass remains concerning for malignancy. Additional suspicious findings were better evaluated on CT from March 02, 2023. Correlation with tissue sampling is recommended when clinically appropriate. Narrative 03/19/2023 3:29 PM EDT EXAM XR CHEST 2 VIEWS-03/19/2023 2:36 pm HISTORY afib with rvr, dyspnea COMPARISON Prior chest radiograph from March 11, [address] March 12, 2023 TECHNIQUE Frontal and lateral chest radiographs FINDINGS Cardiomediastinal silhouette is enlarged. Lymphadenopathy was better appreciated on CT from March 12, 2023. Left apical mass remains concerning for malignancy. Additional pulmonary nodules and masses were better evaluated on CT from March 12, 2023. Mild prominence of the interstitial lung markings. No large pleural effusion. No pneumothorax. No acute osseous abnormality. Procedure Note Trini Reid MD - 03/19/2023 EXAM XR CHEST 2 VIEWS-03/19/2023 2:36 pm HISTORY afib with rvr, dyspnea COMPARISON Prior chest radiograph from March 11, [address] March 12, 2023 TECHNIQUE Frontal and lateral chest radiographs FINDINGS Cardiomediastinal silhouette is enlarged. Lymphadenopathy was betterappreciated on CT from March 12, 2023. Left apical mass remains concerningfor malignancy. Additional pulmonary nodules and masses were betterevaluated on CT from March 12, 2023. Mild prominence of the interstitiallung markings. No large pleural effusion. No pneumothorax. No acuteosseous abnormality. IMPRESSION IMPRESSION 1. Mild CHF. 2. Left apical mass remains concerning for malignancy. Additionalsuspicious findings were better evaluated on CT from March 02, 2023.Correlation with tissue sampling is recommended when clinicallyappropriate. Kelly Carroll PA-C RADIOLOGY (RAD GENE RAL) * ABO/RH (03/19/2023 2:10 PM EDT) ABO O 03/19/2023 9:19 PM EDT LABORATORY [facility] BLOOD BANK Rh Positive 03/19/2023 9:19 PM EDT LAB[facility]ATORY [facility] BLOOD BANK Blood Venous blood specimen / Unknown Venipuncture / Unknown 03/19/2023 2:10 PM EDT 03/19/2023 2:21 PM EDT Kelly Carroll PA-C LAB BLOOD BANK TEST ORDERABLES LABORATORY [facility] BLOOD BANK [address] [place] [address] * TYPE AND SCREEN (03/19/2023 2:10 PM EDT) ABO O 03/19/2023 9:19 PM EDT LABORATORY [facility] BLOOD BANK Rh Positive 03/19/2023 9:19 PM EDT LAB[facility]ATORY [facility] BLOOD BANK Red Blood Cell Antibody Screen Negative 03/19/2023 9:19 PM EDT LAB[facility]ATORY [facility] BLOOD BANK Specimen Expiration Date 03/22/2023 23:59 03/19/2023 9:19 PM EDT LAB[facility]ATORY [facility] BLOOD BANK Blood Venous blood specimen / Unknown Venipuncture / Unknown 03/19/2023 2:10 PM EDT 03/19/2023 2:21 PM EDT Kelly Carroll PA-C LAB BLOOD BANK TEST ORDERABLES LABORATORY [facility] BLOOD BANK [address] [place] [address] * (ABNORMAL) PROCALCITONIN (03/19/2023 2:10 PM EDT) Pathologist [facility] Procalcitonin 0.49(H) <0.10 ng/mL 03/19/2023 9:04 PM EDT LAB[facility]ATORY [facility] Blood Venous blood specimen / Unknown Venipuncture / Unknown 03/19/2023 2:10 PM EDT 03/19/2023 2:21 PM EDT Narrative LAB[facility]ATORY [facility] - 03/19/2023 9:04 PM EDT Less than 0.5 ng/mL: Low risk for progression to sepsis. Review patients condition for localized infections. 0.5 to 2.0 ng/mL: Intermediate risk for progresion to sepsis. Review underlying conditions. Recommend repeat PCT after 6 hours has elapsed. Greater than 2.0 ng/mL: high risk for progression to sepsis unless other causes are known. Kelly Carroll PA-C LAB BLOOD ORDERABLE S LABORATORY [facility] [address] [place] [address] * RESPIRATORY PATHOGEN PANEL, PCR (03/19/2023 2:05 PM EDT) [facility] Adenovirus by PCR Negative Negative 023 3:06 PM EDT LAB[facility]ATORY [facility] Coronavirus 229E by PCR Negative Negative 03/19/2023 3:06 PM EDT [facility]ATORY [facility] Coronavirus HKU1 by PCR Negative Negative 03/19/2023 3:06 PM EDT LAB[facility] Coronavirus NL63 by PCR Negative Negative 03/19/2023 3:06 PM EDT LAB[facility] Coronavirus OC43 by PCR Negative Negative 03/19/2023 3:06 PM EDT [facility] Coronavirus SARS-CoV-2 by PCR Negative Negative 03/19/2023 3:06 PM EDT [facility] Human Metapneumovirus by PCR Negative Negative 03/19/2023 3:06 PM EDT [facility] Rhinovirus/Enterovi jose rafael by PCR Negative Negative 03/19/2023 3:06 PM EDT [facility] Influenza A Virus by PCR Negative Negative 03/19/2023 3:06 PM EDT [facility] Influenza B Virus by PCR Negative Negative 03/19/2023 3:06 PM EDT [facility] Parainfluenza Virus 1 by PCR Negative Negative 03/19/2023 3:06 PM EDT [facility] Parainfluenza Virus 2 by PCR Negative Negative 03/19/2023 3:06 PM EDT [facility] Parainfluenza Virus 3 by PCR Negative Negative 03/19/2023 3:06 PM EDT [facility] Parainfluenza Virus 4 by PCR Negative Negative 03/19/2023 3:06 PM EDT [facility] Respiratory Syncytial Virus by PCR Negative Negative 03/19/2023 3:06 PM EDT [facility] Bordetella pertussis by PCR Negative Negative 03/19/2023 3:06 PM EDT [facility] Chlamydia pneumoniae by PCR Negative Negative 03/19/2023 3:06 PM EDT [facility] Mycoplasma pneumoniae by PCR Negative Negative 03/19/2023 3:06 PM EDT [facility] Bordetella parapertussis by PCR Negative Negative 03/19/2023 3:06 PM EDT [facility]ORY [facility] Comment: The primers that detect Rhinovirus may cross react with some Enterorviruses. The validation of bronchial specimens, tracheal aspirates, and throats for this assay was developed and performance characteristics determined by [employer]. The validation of alternate specimen types has not been cleared or approved by the U.S. Food and Drug Administration (FDA). It has been determined that such clearance or approval is not necessary. Upper Respiratory Mid-turbinate nasal swab / Unknown Non-blood Collection / Unknown 03/19/2023 2:05 PM EDT 03/19/2023 2:14 PM EDT Kelly Carroll PA-C LAB MICRO - GENERAL ORDERABLES LAB[facility]ATORY [facility] [address] [place] [address] * (ABNORMAL) DIFFERENTIAL, AUTOMATED (03/19/2023 2:04 PM EDT) WBC 20.50(H) 4.00 - 10.80 K/uL 03/19/2023 2:26 PM EDT [facility] Neutrophils % 85.2(H) 40.0 - 75.0 % 03/19/2023 2:26 PM EDT LAB[facility] Lymphocytes % 8.0(L) 18.0 - 42.0 % 03/19/2023 2:26 PM EDT [facility] Monocytes % 5.8 1.0 - 11.0 % 03/19/2023 2:26 PM EDT [facility] Eosinophils % 0.0 0.0 - 6.0 % 03/19/2023 2:26 PM EDT LAB[facility] Basophils % 0.2 0.0 - 2.0 % 03/19/2023 2:26 PM EDT [facility] Immature Granulocytes % 0.8 0.0 - 2.0 % 03/19/2023 2:26 PM EDT LAB[facility]ORY [facility] Absolute Neutrophils 17.47(H) 1.80 - 7.70 K/uL 03/19/2023 2:26 PM EDT LAB[facility] Absolute Lymphocytes 1.63 1.00 - 4.80 K/ul 03/19/2023 2:26 PM EDT LAB[facility]ORY [facility] Absolute Monocytes 1.19(H) 0.00 - 1.10 K/uL 03/19/2023 2:26 PM EDT LAB[facility] Absolute Eosinophils 0.00 0.00 - 0.70 K/uL 03/19/2023 2:26 PM EDT LAB[facility] Absolute Basophils 0.04 0.00 - 0.20 K/uL 03/19/2023 2:26 PM EDT LAB[facility] Absolute Immature Granulocytes 0.17 0.00 - 0.20 K/uL 03/19/2023 2:26 PM EDT [facility] Blood Venous blood specimen / Unknown Venipuncture / Unknown 03/19/2023 2:04 PM EDT 03/19/2023 2:21 PM EDT Kelly Carroll PA-C LAB BLOOD ORDERABLE S [facility]ATORY [facility] [address] [place] [address] * (ABNORMAL) CBC (03/19/2023 2:04 PM EDT) WBC 20.50(H) 4.00 - 10.80 K/uL 03/19/2023 2:26 PM EDT [facility] RBC 4.56 3.85 - 5.15 M/uL 03/19/2023 2:26 PM EDT [facility] HGB 12.2 12.0 - 15.3 g/dL 03/19/2023 2:26 PM EDT LAB[facility] HCT 36.2 36.0 - 45.2 % 03/19/2023 2:26 PM EDT LAB[facility] MCV 79.4 81.5 - 97.5 fL 03/19/2023 2:26 PM EDT LAB[facility] MCH 26.8 27.0 - 34.0 pg 03/19/2023 2:26 PM EDT LAB[facility] MCHC 33.7 32.0 - 36.0 g/dL 03/19/2023 2:26 PM EDT LAB[facility]ORY [facility] RDW 13.3 11.5 - 15.5 % 03/19/2023 2:26 PM EDT LAB[facility]ATORY [facility] PLT 678(H) 140 - 400 K/uL 03/19/2023 2:26 PM EDT LAB[facility]ORY [facility] MPV 9.2 6.6 - 11.1 fL 03/19/2023 2:26 PM EDT LAB[facility]ORY [facility] nRBCs 0 <=0 /100 WBCs 03/19/2023 2:26 PM EDT LABORATORY [facility] Blood Venous blood specimen / Unknown Venipuncture / Unknown 03/19/2023 2:04 PM EDT 03/19/2023 2:21 PM EDT Kelly Carroll PA-C LAB BLOOD ORDERABLE S LABORATORY [facility] [address] [place] [address] * PHOSPHORUS (03/19/2023 2:04 PM EDT) Phosphorus 3.8 2.5 - 4.8 mg/dL 03/19/2023 2:47 PM EDT LABORATORY [facility] Blood Venous blood specimen / Unknown Venipuncture / Unknown 03/19/2023 2:04 PM EDT 03/19/2023 2:21 PM EDT Kelly Carly CHAPMAN LAB BLOOD ORDERABLE S LABORATORY [facility] [address] [place] [address] * MAGNESIUM (03/19/2023 2:04 PM EDT) Pathologist [facility] Magnesium 2.0 1.5 - 2.6 mg/dL 03/19/2023 2:47 PM EDT LABORATORY [facility] Blood Venous blood specimen / Unknown Venipuncture / Unknown 03/19/2023 2:04 PM EDT 03/19/2023 2:21 PM EDT Kelly Carroll PA-C LAB BLOOD ORDERABLE S Performing Organization Address [facility]/ZIP Co de Phone Number LABORATORY [facility] [address] [place] [address] * TSH (03/19/2023 2:04 PM EDT) Pathologist [facility] TSH 3.82 0.27 - 4.20 uIU/mL 03/19/2023 2:55 PM EDT LABORATORY [facility] Blood Venous blood specimen / Unknown Venipuncture / Unknown 03/19/2023 2:04 PM EDT 03/19/2023 2:21 PM EDT Kelly Carly CHAPMAN LAB BLOOD ORDERABLE S Performing Organization Address City/[facility]/ZIP Co de Phone Number LABORATORY [facility] [address] [place] [address] * (ABNORMAL) D-DIMER (03/19/2023 2:04 PM EDT) D-Dimer 7.87(H) <0.50 ug/mL FEU 03/19/2023 3:10 PM EDT LABORATORY [facility] Comment:Results rechecked. Blood Venous blood specimen / Unknown Venipuncture / Unknown 03/19/2023 2:04 PM EDT 03/19/2023 2:21 PM EDT [facility] LABORATORY [facility] - 03/19/2023 3:10 PM EDT Rheumatoid factor at a level above 50 IU/mL may lead to an overestimation of the D-dimer level. A normal D-dimer result (<0.50 ug/mL FEU) has a negative predictive value of approximately 95% for the exclusion of acute pulmonary embolism (PE) or deep vein thrombosis when there is low or moderate pretest PE probability. Increased D-dimer values are abnormal but do not indicate a specific disease state and the D-dimer increase does not definitively correlate with clinical severity of disease. Kelly Carroll PA-C LAB BLOOD ORDERABLE S Performing Organization Address City/[facility]/ZIP Co de Phone Number LABORATORY [address] [address] * (ABNORMAL) LACTATE WITH REFLEX IF ABNORMAL (03/19/2023 2:04 PM EDT) Lactate 2.5(H) 0.4 - 2.0 mmol/L 03/19/2023 2:44 PM EDT LABORATORY [facility] Blood Venous blood specimen / Unknown Venipuncture / Unknown 03/19/2023 2:04 PM EDT 03/19/2023 2:21 PM EDT Kelly Carroll PA-C LAB BLOOD ORDERABLE S Performing Organization Address City/[facility]/ZIP Co de Phone Number LABORATORY [address] [address] * (ABNORMAL) TROPONIN T, HIGH SENSITIVITY (03/19/2023 2:04 PM EDT) Troponin T, High Sensitivity 17(H) <=14 ng/L 03/19/2023 2:55 PM EDT LABORATORY [facility] Blood Venous blood specimen / Unknown Venipuncture / Unknown 03/19/2023 2:04 PM EDT 03/19/2023 2:21 PM EDT Kelly Carroll PA-C LAB BLOOD ORDERABLE S LABORATORY [facility] [address] [place] [address] * (ABNORMAL) BNP, NT-PRO (03/19/2023 2:04 PM EDT) Pathologist [facility] BNP, NT-Pro 6,947(H) <300 pg/mL 03/19/2023 2:55 PM EDT LABORATORY [facility] Blood Venous blood specimen / Unknown Venipuncture / Unknown 03/19/2023 2:04 PM EDT 03/19/2023 2:21 PM EDT Narrative LABORATORY [facility] - 03/19/2023 2:55 PM EDT Exclude Heart Failure: <300 pg/mL Diagnose Heart Failure: Age <50 yr: >450 pg/mL 50-75 yr: >900 pg/mL >75 yr: >1800 pg/mL GFR is 30-59 mL/min: >1200 pg/mL or Age-adjusted values GFR <30 mL/min: do not use, not reliable Prognostic threshold: 1000 pg/mL Kelly Carroll PA-C LAB BLOOD ORDERABLE S Performing Organization Address City/[facility]/ZIP Co de Phone Number LABORATORY [facility] [address] [place] [address] * (ABNORMAL) COMPREHENSIVE METABOLIC PANEL (03/19/2023 2:04 PM EDT) Pathologist [facility] BUN 16 6 - 20 mg/dL 03/19/2023 2:47 PM EDT LABORATORY [facility] Creatinine 0.9 0.5 - 1.0 mg/dL 03/19/2023 2:47 PM EDT LABORATORY [facility] Estimated Glomerular Filtration Rate 67 >=60 mL/min 03/19/2023 2:47 PM EDT LABORATORY [facility] Comment:eGFR is calculated b ased on the CKD-EPI 2020 equation Sodium 126(L) 135 - 146 mmol/L 03/19/2023 2:47 PM EDT LABORATORY [facility] Potassium 4.5 3.5 - 5.1 mmol/L 03/19/2023 2:47 PM EDT LABORATORY [facility] Chloride 92(L) 98 - 107 mmol/L 03/19/2023 2:47 PM EDT LABORATORY [facility] CO2 17(L) 22 - 32 mmol/L 03/19/2023 2:47 PM EDT LABORATORY [facility] Anion Gap 17(H) 7 - 15 mmol/L 03/19/2023 2:47 PM EDT LABORATORY [facility] Glucose 146(H) 70 - 120 mg/dL 03/19/2023 2:47 PM EDT LABORATORY [facility] Albumin 2.6(L) 3.8 - 5.0 g/dL 03/19/2023 2:47 PM EDT LABORATORY [facility] AST 24 10 - 35 U/L 03/19/2023 2:47 PM EDT LABORATORY [facility] Alkaline Phosphatase 98 35 - 130 U/L 03/19/2023 2:47 PM EDT LABORATORY [facility] Bilirubin, Total 0.5 <=1.2 mg/dL 03/19/2023 2:47 PM EDT LABORATORY [facility] Calcium 8.9 8.4 - 10.2 mg/dL 03/19/2023 2:47 PM EDT LABORATORY [facility] Protein 8.2 6.0 - 8.3 g/dL 03/19/2023 2:47 PM EDT LABORATORY [facility] ALT 20 10 - 35 U/L 03/19/2023 2:47 PM EDT LABORATORY [facility] Blood Venous blood specimen / Unknown Venipuncture / Unknown 03/19/2023 2:04 PM EDT 03/19/2023 2:21 PM EDT Kelly Carroll PA-C LAB BLOOD ORDERABLE S LABORATORY [facility] [address] [place] [address] * (ABNORMAL) GLUCOSE METER, POINT OF CARE (03/19/2023 1:48 PM EDT) [facility] Signature Glucose Meter 135(H) 70 - 120 mg/dL 03/19/2023 1:50 PM EDT [facility] POCT (61-50) Blood Whole blood specimen / Unknown 03/19/2023 1:48 PM EDT 03/19/2023 1:50 PM EDT No Physician Data Unknown LAB POINT OF C ARE TEST DOCKED DEVICE UNSOLICITED RESULTS [facility] POCT (82-25) [address] [place] [address] documented in this encounter Visit Diagnoses Diagnosis Lung mass- Primary Swelling, mass, or lump in chest Atrial fibrillation with RVR (HCC) Atrial fibrillation Bilateral pulmonary embolism (HCC) Other pulmonary embolism and infarction Pleural effusion Unspecified pleural effusion Pericardial effusion Unspecified disease of pericardium documented in this encounter Administered Medications Inactive Administered Medications - up to 3 most recent administrations Medication Order MAR Action Action Date Dose Rate Site hEParin 1000 UNIT/ML inj 1,400 Units 1,400 Units (rounded from 1,443 Units = 30 Units/kg 48.1 kg), IV Push, PRN Other, If most recent Heparin Assay result is less than or equal to 0.2 units/mL, Starting on Mon03/19/23 at 191, Until Mon03/20/23 at 0010, Repeat Heparin Assay 6 hours after bolus is administered. Send message to pharmacy if dose needed. hEParin 1000 UNIT/ML inj 3,800 Units 3,800 Units (rounded from 3,848 Units = 80 Units/kg 48.1 kg), IV Push, ONCE, On Mon03/19/23 at 1945, For 1 dose Given 03/19/2023 9:36 PM EDT 3,800 Units hEParin 1000 UNIT/ML inj 700 Units 700 Units (rounded from 721.5 Units = 15 Units/kg 48.1 kg), IV Push, PRN Other, If most recent Heparin Assay result is between 0.21 and 0.29 units/mL, Starting on Mon03/19/23 at 1911, Until Mon03/20/23 at 0010, Repeat Heparin Assay 6 hours after bolus is administered. Send message to pharmacy if dose needed. hEParin 25,000 units in 250 mL (Xa-DVT/PE) infusion Intravenous, at 0-14.43 mL/hr, Start heparin as soon as baseline labs are drawn. Please select this medication from the infusion pump library! Concentration: 100 units/mL Expires 96 hours after spiking on (date) at (hour) , TITRATE, Starting on 03/19/23 at 1945, Until 03/20/23 at 0010 New Bag 03/19/2023 9:41 PM EDT 18 Units/kg/hr 8.66 mL/hr Ioversol (Optiray 350) 74 % inj 100 mL 100 mL, Intravenous, ONCE, On Mon03/19/23 at 1600, For 1 dose, Radiology Medication Routing (Non-IR) Given 03/19/2023 3:50 PM EDT 100 mL NSS 0.9% 500 mL bolus infusion IV Piggyback, Wide open, This infusion may be completed in less than 1 hour, since it will be a wide open rate, ONCE, 1 dose, On Mon03/19/23 at 1430 New Bag 03/19/2023 2:02 PM EDT 500 mL 500 mL/hr documented in this encounter Active and Recently Administered Medications Times are shown in EDT. Scheduled Medication Order 03/17/2023 03/18/2023 03/19/2023 hEParin 1000 UNIT/ML inj 3,800 Units (COMPLETED) 3,800 Units (rounded from 3,848 Units = 80 Units/kg 48.1 kg), IV Push, ONCE, On Mon03/19/23 at 1945, For 1 dose 2135 (Given - Provid er: Nathan Pinto RN) Ioversol (Optiray 350) 74 % inj 100 mL (COMPLETED) 100 mL, Intravenous, ONCE, On Mon03/19/23 at 1600, For 1 dose, Radiology Medication Routing (Non-IR) 1550 (Given - Provid er: Ellen Chong, RT) NSS 0.9% 500 mL bolus infusion (COMPLETED) IV Piggyback, Wide open, This infusion may be completed in less than 1 hour, since it will be a wide open rate, ONCE, 1 dose, On Mon03/19/23 at 1430 1402 (New Bag - Prov ider: Juan Miguel Navas, TI)1453 (Stopped - Provider: Juan Miguel Navas, RN) Continuous Medication Order 03/17/2023 03/18/2023 03/19/2023 hEParin 25,000 units in 250 mL (Xa-DVT/PE) infusion Intravenous, at 0-14.43 mL/hr, Start heparin as soon as baseline labs are drawn. Please select this medication from the infusion pump library! Concentration: 100 units/mL Expires 96 hours after spiking on (date) at (hour) , TITRATE, Starting on 03/19/23 at 1945, Until 03/20/23 at 0010 2141 (New Bag - Prov ider: Nathan Pinto RN) PRN Medication Order 03/17/2023 03/18/2023 03/19/2023 hEParin 1000 UNIT/ML inj 1,400 Units 1,400 Units (rounded from 1,443 Units = 30 Units/kg 48.1 kg), IV Push, PRN Other, If most recent Heparin Assay result is less than or equal to 0.2 units/mL, Starting on 03/19/23 at 1911, Until 03/20/23 at 0010, Repeat Heparin Assay 6 hours after bolus is administered. Send message to pharmacy if dose needed. hEParin 1000 UNIT/ML inj 700 Units 700 Units (rounded from 721.5 Units = 15 Units/kg 48.1 kg), IV Push, PRN Other, If most recent Heparin Assay result is between 0.21 and 0.29 units/mL, Starting on 03/19/23 at 1911, Until 03/20/23 at 0010, Repeat Heparin Assay 6 hours after bolus is administered. Send message to pharmacy if dose needed. 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 Question Answer Comments Discussion of Advance Directives occurred with: Patient Care Teams Prosthetic Assistant Relationship Specialty Start Date End Date Jamie Wynn, [address] [place] [address] PCP - General Family Medicine 08/08/16 documented as of this encounter
--- OUTSIDE RECORDS SUMMARY | 2023-07-05 14:52 | External Medical Summary ---
Author Name Unknown Address Unknown Organization [id number]:[place] [facility] [place] [address] [place] [address] Laboratory Report Ordering Provider Test Date Status JUAN,KANAPARTHY 03/20/2023 23:18:00 Final Observation Date Value Abnormality Reference (Units ) Status Heparin, unfractionated level 03/20/2023 23:18:00 <0.10 <0.10 (IU/mL) Final Performing Location LABORATORY C - [address] [place] [address]
--- OUTSIDE RECORDS SUMMARY | 2023-07-05 14:53 | External Medical Summary ---
Author Name Unknown Address Unknown Organization K1H:LABORATORY [facility] - [address] [place], [place] [id number] Laboratory Report Ordering Provider Test Date Status CAMMIE MENDOZA 03/19/2023 14:17:00 Final Observation Date Value Abnormality Reference (Units ) Status Bacteria identified in Unspecified specimen by Culture 03/19/2023 14:17:00 No growth Final Performing Location LABORATORY [facility] - [address] [place] [address]
--- OUTSIDE RECORDS SUMMARY | 2023-07-05 14:53 | External Medical Summary ---
Author Name Unknown Address Unknown Organization K1H:LABORATORY [facility] - [address] [place] [address] Laboratory Report Ordering Provider Test Date Status ACMMIE MENDOZA 03/19/2023 20:08:00 Final Observation Date Value Abnormality Reference (Units ) Status aPTT panel - Platelet poor plasma 03/19/2023 20:08:00 36 21-38 (seconds) Final Performing Location LABORATORY [facility] - [address] [place] [address]
--- OUTSIDE RECORDS SUMMARY | 2023-07-05 14:53 | External Medical Summary ---
Author Name Unknown Address Unknown Organization K01:[place] [facility] [place] [address] [place] [address] Laboratory Report Ordering Provider Test Date Status LAZARO OLIVER 03/20/2023 07:33:00 Final Observation Date Value Abnormality Reference (Units ) Status Heparin, unfractionated level 03/20/2023 07:33:00 <0.10 <0.10 (IU/mL) Final Performing Location LABORATORY C - [address] [place] [address]
--- OUTSIDE RECORDS SUMMARY | 2023-07-05 14:53 | External Medical Summary ---
Author Name Unknown Address Unknown Organization K1H:LABORATORY [facility] - [address] [place], [place] [id number] Laboratory Report Ordering Provider Test Date Status CAMMIE MENDOZA 03/19/2023 14:10:00 Final Observation Date Value Abnormality Reference (Units ) Status Bacteria identified in Unspecified specimen by Culture 03/19/2023 14:10:00 No growth Final Performing Location LABORATORY [facility] - [address] [place] [address]
--- OUTSIDE RECORDS SUMMARY | 2023-07-05 14:53 | External Medical Summary ---
Author Name Unknown Address Unknown Organization K01:LABORATORY [facility] [place] [address] [place] [address] Laboratory Report Ordering Provider Test Date Status BUD UMANA 03/20/2023 08:21:44 [place] Observation Date Value Abnormality Reference (Units ) Status Osmolality, Urine 03/20/2023 08:21:44 643 50 -1200 (mOsm/kg) Final Performing Location LABORATORY [facility] [place] - [address] [place] [address]
--- OUTSIDE RECORDS SUMMARY | 2023-07-05 14:53 | External Medical Summary ---
Author Name Unknown Address Unknown Organization K01:LABORATORY [facility] [place] [address] [place] [address] Laboratory Report Ordering Provider Test Date Status BUD UMANA 03/20/2023 01:57:00 [place] Observation Date Value Abnormality Reference (Units ) Status aPTT panel - Platelet poor plasma 03/20/2023 01:57:00 34 21-38 (seconds) Final Performing Location LABORATORY [facility] [place] - [address] [place] [address]
--- OUTSIDE RECORDS SUMMARY | 2023-07-05 14:53 | External Medical Summary ---
Author Name Unknown Address Unknown Organization K1H:LABORATORY [facility] - [address] [place] [address] Laboratory Report Ordering Provider Test Date Status CAMMIE MENDOZA 03/19/2023 17:18:00 Final Observation Date Value Abnormality Reference (Units ) Status Lactic Acid 03/19/2023 17:18:00 1.8 0.4-2.0 (mmol/L) Final Performing Location LABORATORY [facility] - [address] [place] [address]
--- OUTSIDE RECORDS SUMMARY | 2023-07-05 14:53 | External Medical Summary ---
Author Name Unknown Address Unknown Organization K01:LABORATORY [facility] - [address] [place] [address] Laboratory Report Ordering Provider Test Date Status BUD UMANA 03/20/2023 01:57:00 [place] Observation Date Value Abnormality Reference (Units ) Status Phosphate 03/20/2023 01:57:00 3.3 2.5-4.8 (m g/dL) Final Performing Location LABORATORY [facility] - [address] [place] [address]
--- OUTSIDE RECORDS SUMMARY | 2023-07-05 14:53 | External Medical Summary ---
Author Name Unknown Address Unknown Organization K01:[place] [facility] [place] [address] [place] [address] Laboratory Report Ordering Provider Test Date Status BUD UMANA 03/20/2023 01:57:00 [place] Observation Date Value Abnormality Reference (Units ) Status Osmolality 03/20/2023 01:57:00 272 Below low normal 27 8-305 (mOsm/kg) Final Performing Location LABORATORY C - [address] [place] [address]
--- OUTSIDE RECORDS SUMMARY | 2023-07-05 14:53 | External Medical Summary ---
Author Name Unknown Address Unknown Organization K1H:LABORATORY [facility] - [address] [place] [address] Laboratory Report Ordering Provider Test Date Status TROY BURDICK 03/19/2023 20:08:00 Final Observation Date Value Abnormality Reference (Units ) Status WBC, Total 03/19/2023 20:08:00 15.19 Above high normal 4.00-10.80 (K/uL) Final RBC 03/19/2023 20:08:00 3.99 3.85-5.15 (M/uL) Final Hemoglobin 03/19/2023 20:08:00 10.3 Below low normal 12.0-15.3 (g/dL) Final HCT 03/19/2023 20:08:00 31.4 Below low normal 36.0-45.2 (%) Final MCV 03/19/2023 20:08:00 78.7 81.5-97.5 (fL) Final MCH 03/19/2023 20:08:00 25.8 27.0-34.0 (pg) Final MCHC 03/19/2023 20:08:00 32.8 32.0-36.0 (g/dL) Final RDW 03/19/2023 20:08:00 13.2 11.5-15.5 (%) Final Platelets 03/19/2023 20:08:00 584 Above high normal 140-400 (K/uL) Final MPV 03/19/2023 20:08:00 9.0 6.6-11.1 (fL) Final Nucleated erythrocytes/100 leukocytes [Ratio] in Blood by Automated count 03/19/2023 20:08:00 0 <=0 (/100 WBCs) Final Performing Location LABORATORY [facility] - [address] [facility] [address]
--- OUTSIDE RECORDS SUMMARY | 2023-07-05 14:53 | External Medical Summary ---
Author Name Unknown Address Unknown Organization K1H:LABORATORY [facility] - [address] [place] [address] Laboratory Report Ordering Provider Test Date Status CAMMIE MENDOZA 03/19/2023 20:08:00 Final Observation Date Value Abnormality Reference (Units ) Status PT 03/19/2023 20:08:00 16.5 Above high normal 11 .6-15.2 (seconds) Final INR 03/19/2023 20:08:00 1.3 Above high normal 0. 8-1.2 Final Performing Location LABORATORY [facility] - [address] [place] [address]
--- OUTSIDE RECORDS SUMMARY | 2023-07-05 14:53 | External Medical Summary ---
Author Name Unknown Address Unknown Organization K01:LABORATORY [facility] [place] - [address] [facility] [address] Laboratory Report Ordering Provider Test Date Status BUD UMANA 03/20/2023 01:57:00 [place] Observation Date Value Abnormality Reference (Units ) Status SYNC LEUKOCYTES IN BLOOD BY AUTOMATED COUNT 03/20/2023 01:57:00 13.33 Above high normal 4.00-10.80 (K/uL) Final Segs 03/20/2023 01:57:00 72.2 40.0-75.0 (%) Final Lymphs % 03/20/2023 01:57:00 16.4 Below low normal 18.0-42.0 (%) Final Monos 03/20/2023 01:57:00 9.8 1.0-11.0 (%) Final Eosinophils 03/20/2023 01:57:00 0.8 0.0-6.0 (%) Final Basos 03/20/2023 01:57:00 0.3 0.0-2.0 (%) Final Immature Granulocyte, Percent 03/20/2023 01:57:00 0.5 0.0-2.0 (%) Final Absolute Segs 03/20/2023 01:57:00 9.63 Above high normal 1.80-7.70 (K/uL) Final Lymphs, absolute 03/20/2023 01:57:00 2.19 1.00-4.80 (K/ul) Final Monos, Abs 03/20/2023 01:57:00 1.30 Above high normal 0.00-1.10 (K/uL) Final Eos, Abs 03/20/2023 01:57:00 0.10 0.00-0.70 (K/uL) Final Basos, Abs 03/20/2023 01:57:00 0.04 0.00-0.20 (K/uL) Final Immature Granulocytes, Number 03/20/2023 01:57:00 0.07 0.00-0.20 (K/uL) Final Performing Location LABORATORY [facility] [place] - [facility] [address] [facility] [address]
--- OUTSIDE RECORDS SUMMARY | 2023-07-05 14:53 | External Medical Summary ---
Author Name Unknown Address Unknown Organization K1H:LABORATORY [facility] - [address] [place] [address] Laboratory Report Ordering Provider Test Date Status CAMMIE MENDOZA 03/19/2023 20:08:00 Final Observation Date Value Abnormality Reference (Units ) Status Heparin, unfractionated level 03/19/2023 20:08:00 <0.10 <0.10 (IU/mL) Final Performing Location LABORATORY [facility] - [address] [facility] [address]
--- OUTSIDE RECORDS SUMMARY | 2023-07-05 14:53 | External Medical Summary ---
Author Name Unknown Address Unknown Organization K01:LABORATORY [facility] [place] - [address] [place] [address] Laboratory Report Ordering Provider Test Date Status BUD UMANA 03/20/2023 01:57:00 [place] Observation Date Value Abnormality Reference (Units ) Status Heparin, unfractionated level 03/20/2023 01:57:00 <0.10 <0.10 (IU/mL) Final Performing Location LABORATORY [facility] [place] - [address] [place] [address]
--- OUTSIDE RECORDS SUMMARY | 2023-07-05 14:53 | External Medical Summary ---
Author Name Unknown Address Unknown Organization K01:LABORATORY [facility] - [address] [place] [address] Laboratory Report Ordering Provider Test Date Status BUD UMANA 03/20/2023 01:57:00 [place] Observation Date Value Abnormality Reference (Units ) Status Magnesium 03/20/2023 01:57:00 2.0 1.5-2.6 (m g/dL) Final Performing Location LABORATORY [facility] - [address] [place] [address]
--- OUTSIDE RECORDS SUMMARY | 2023-07-05 14:53 | External Medical Summary ---
Author Name Unknown Address Unknown Organization K01:LABORATORY [facility] [place] - [address] [place] [address] Laboratory Report Ordering Provider Test Date Status BUD UMANA 03/20/2023 01:57:00 [place] Observation Date Value Abnormality Reference (Units ) Status PT 03/20/2023 01:57:00 16.4 Above high normal 11 .6-15.2 (seconds) Final INR 03/20/2023 01:57:00 1.3 Above high normal 0. 8-1.2 Final Performing Location LABORATORY [facility] [place] - [address] [place] [address]
--- OUTSIDE RECORDS SUMMARY | 2023-07-05 14:53 | External Medical Summary ---
Author Name Unknown Address Unknown Organization K01:LABORATORY [facility] [place] - [address] [address] [facility] [address] [place] [address] Laboratory Report Ordering Provider Test Date Status BUD UMANA 03/20/2023 01:57:00 [place] Observation Date Value Abnormality Reference (Units ) Status BUN 03/20/2023 01:57:00 17 6-20 (mg/dL) Final Creatinine 03/20/2023 01:57:00 0.9 0.5-1.0 (mg/dL) Final Glomerular filtration rate/1.73 sq M.predicted [Volume Rate/Area] in Serum, Plasma or Blood by Creatinine-based formula (CKD-EPI) 03/20/2023 01:57:00 70 >=60 (mL/min) Final Performing Location LABORATORY [facility] [place] - [address] [place] [address]
--- OUTSIDE RECORDS SUMMARY | 2023-07-05 14:53 | External Medical Summary ---
Author Name Unknown Address Unknown Organization K1H:LABORATORY [facility] - [address] [place] [address] Laboratory Report Ordering Provider Test Date Status CAMMIE MENDOZA 03/19/2023 17:18:00 Final Observation Date Value Abnormality Reference (Units ) Status Troponin T 03/19/2023 17:18:00 15 Above high normal < =14 (ng/L) Final Performing Location LABORATORY [facility] - [address] [place] [address]
--- OUTSIDE RECORDS SUMMARY | 2023-07-05 14:53 | External Medical Summary ---
Author Name Unknown Address Unknown Organization K01:LABORATORY [facility] [place] - [address] [facility] [address] Laboratory Report Ordering Provider Test Date Status BUD UMANA 03/20/2023 01:57:00 [place] l Observation Date Value Abnormality Reference (Units ) Status WBC, Total 03/20/2023 01:57:00 13.33 Above high normal 4.00-10.80 (K/uL) Final RBC 03/20/2023 01:57:00 3.80 3.85-5.15 (M/uL) Final Hemoglobin 03/20/2023 01:57:00 10.1 Below low normal 12.0-15.3 (g/dL) Final HCT 03/20/2023 01:57:00 30.4 Below low normal 36.0-45.2 (%) Final MCV 03/20/2023 01:57:00 80.0 81.5-97.5 (fL) Final MCH 03/20/2023 01:57:00 26.6 27.0-34.0 (pg) Final MCHC 03/20/2023 01:57:00 33.2 32.0-36.0 (g/dL) Final RDW 03/20/2023 01:57:00 13.3 11.5-15.5 (%) Final Platelets 03/20/2023 01:57:00 611 Above high normal 140-400 (K/uL) Final MPV 03/20/2023 01:57:00 8.9 6.6-11.1 (fL) Final Nucleated erythrocytes/100 leukocytes [Ratio] in Blood by Automated count 03/20/2023 01:57:00 0 <=0 (/100 WBCs) Final Performing Location LABORATORY [facility] [place] - [address] [place] [address]
--- OUTSIDE RECORDS SUMMARY | 2023-07-05 14:54 | External Medical Summary ---
Author Name Unknown Address Unknown Organization K1H:LABORATORY [facility] - [address] [place], [place] [id number] Laboratory Report Ordering Provider Test Date Status CAMMIE MENDOZA 03/19/2023 14:04:14 Final Observation Date Value Abnormality Reference (Units ) Status BUN 03/19/2023 14:04:14 16 6-20 (mg/dL) Final Creatinine 03/19/2023 14:04:14 0.9 0.5-1.0 (mg/dL) Final Glomerular filtration rate/1.73 sq M.predicted [Volume Rate/Area] in Serum, Plasma or Blood by Creatinine-based formula (CKD-EPI) 03/19/2023 14:04:14 67 >=60 (mL/min) Final Performing Location LABORATORY [facility] - [address] [place] [address]
--- OUTSIDE RECORDS SUMMARY | 2023-07-05 14:54 | External Medical Summary ---
Author Name Unknown Address Unknown Organization K1H:LABORATORY [facility] - [address] [place] [address] Laboratory Report Ordering Provider Test Date Status CAMMIE MENDOZA 03/19/2023 14:04:14 Final Observation Date Value Abnormality Reference (Units ) Status Fibrin D-dimer FEU [Mass/volume] in Platelet poor plasma by Immunoassay 03/19/2023 14:04:14 7.87 Above high normal <0.50 (ug/mL FEU) Final Performing Location LABORATORY [facility] - [address] [place] [address]
--- OUTSIDE RECORDS SUMMARY | 2023-07-05 14:54 | External Medical Summary ---
Author Name Unknown Address Unknown Organization K01:LABORATORY [facility] [place] [facility] - [address] [address] Laboratory Report Ordering Provider Test Date Status CAMMIE MENDOZA 03/19/2023 14:10:00 Final Observation Date Value Abnormality Reference (Units ) Status ABO 03/19/2023 14:10:00 O Final RH 03/19/2023 14:10:00 Positive Final Performing Location LABORATORY [facility] [place] [facility] - [address] [address]
--- OUTSIDE RECORDS SUMMARY | 2023-07-05 14:54 | External Medical Summary ---
Author Name Unknown Address Unknown Organization K1H:LABORATORY [facility] - [address] [place] [address] Laboratory Report Ordering Provider Test Date Status CAMMIE MENDOZA 03/19/2023 14:04:14 Final Observation Date Value Abnormality Reference (Units ) Status BNP, Pro-hormone 03/19/2023 14:04:14 6947 Above high no rmal <300 (pg/mL) Final Performing Location LABORATORY [facility] - [address] [facility] [address] [address]
--- OUTSIDE RECORDS SUMMARY | 2023-07-05 14:54 | External Medical Summary ---
Author Name Unknown Address Unknown Organization K01:[place] [place] [address] [place] [address] Laboratory Report Ordering Provider Test Date Status CAMMIE MENDOZA 03/19/2023 14:10:00 Final Observation Date Value Abnormality Reference (Units ) Status Procalcitonin [Mass/volume] in Serum or Plasma by Immunoassay 03/19/2023 14:10:00 0.49 Above high normal <0.10 (ng/mL) Final Performing Location [facility] [place] [address] [place] [address]
--- OUTSIDE RECORDS SUMMARY | 2023-07-05 14:54 | External Medical Summary ---
Author Name Unknown Address Unknown Organization : Laboratory Report Ordering Provider Test Date Status NO,UNKNOWN 03/19/2023 13:48:15 Final Observation Date Value Abnormality Reference (Units ) Status Glucose Point of Care 03/19/2023 13:48:15 135 Above high normal 70-120 (mg/dL) Final Performing Location
--- OUTSIDE RECORDS SUMMARY | 2023-07-05 14:54 | External Medical Summary ---
Author Name Unknown Address Unknown Organization K1H:LABORATORY [facility] - [address] [place], [place] [id number] Laboratory Report Ordering Provider Test Date Status CAMMIE MENDOZA 03/19/2023 14:04:14 Final Observation Date Value Abnormality Reference (Units ) Status TSH 03/19/2023 14:04:14 3.82 0.27-4.20 (uIU/mL) Final Performing Location LABORATORY [facility] - [address] [facility] [address]
--- OUTSIDE RECORDS SUMMARY | 2023-07-05 14:54 | External Medical Summary ---
Author Name Unknown Address Unknown Organization K1H:LABORATORY [facility] - [address] [place] [address] Laboratory Report Ordering Provider Test Date Status CAMMIE MENDOZA 03/19/2023 14:04:14 Final Observation Date Value Abnormality Reference (Units ) Status Lactic Acid 03/19/2023 14:04:14 2.5 Above high normal 0.4-2.0 (mmol/L) Final Performing Location LABORATORY [facility] - [address] [place] [address]
--- OUTSIDE RECORDS SUMMARY | 2023-07-05 14:54 | External Medical Summary ---
Author Name Unknown Address Unknown Organization K1H:LABORATORY [facility] - [address] [place] [address] Laboratory Report Ordering Provider Test Date Status ACMMIE MENDOZA 03/19/2023 14:04:14 Final Observation Date Value Abnormality Reference (Units ) Status Phosphate 03/19/2023 14:04:14 3.8 2.5-4.8 (m g/dL) Final Performing Location LABORATORY [facility] - [address] [facility] [address]
--- OUTSIDE RECORDS SUMMARY | 2023-07-05 14:54 | External Medical Summary ---
Author Name Unknown Address Unknown Organization K1H:LABORATORY [facility] - [address] [place] [address] Laboratory Report Ordering Provider Test Date Status CAMMIE MENDOZA 03/19/2023 14:04:14 Final Observation Date Value Abnormality Reference (Units ) Status Magnesium 03/19/2023 14:04:14 2.0 1.5-2.6 (m g/dL) Final Performing Location LABORATORY [facility] - [address] [address]
--- OUTSIDE RECORDS SUMMARY | 2023-07-05 14:54 | External Medical Summary ---
Author Name Unknown Address Unknown Organization K1H:LABORATORY [facility] - [address] [place], [place] [id number] Laboratory Report Ordering Provider Test Date Status CAMMIE MENDOZA 03/19/2023 14:04:14 Final Observation Date Value Abnormality Reference (Units ) Status WBC, Total 03/19/2023 14:04:14 20.50 Above high normal 4.00-10.80 (K/uL) Final RBC 03/19/2023 14:04:14 4.56 3.85-5.15 (M/uL) Final Hemoglobin 03/19/2023 14:04:14 12.2 12.0-15.3 (g/dL) Final HCT 03/19/2023 14:04:14 36.2 36.0-45.2 (%) Final MCV 03/19/2023 14:04:14 79.4 81.5-97.5 (fL) Final MCH 03/19/2023 14:04:14 26.8 27.0-34.0 (pg) Final MCHC 03/19/2023 14:04:14 33.7 32.0-36.0 (g/dL) Final RDW 03/19/2023 14:04:14 13.3 11.5-15.5 (%) Final Platelets 03/19/2023 14:04:14 678 Above high normal 140-400 (K/uL) Final MPV 03/19/2023 14:04:14 9.2 6.6-11.1 (fL) Final Nucleated erythrocytes/100 leukocytes [Ratio] in Blood by Automated count 03/19/2023 14:04:14 0 <=0 (/100 WBCs) Final Performing Location LABORATORY [facility] - [address] [facility] [address]
--- OUTSIDE RECORDS SUMMARY | 2023-07-05 14:54 | External Medical Summary ---
Author Name Unknown Address Unknown Organization K1H:LABORATORY [facility] - [address] [place] [address] Laboratory Report Ordering Provider Test Date Status CAMMIE MENDOZA 03/19/2023 14:04:14 Final Observation Date Value Abnormality Reference (Units ) Status Troponin T 03/19/2023 14:04:14 17 Above high normal < =14 (ng/L) Final Performing Location LABORATORY [facility] - [address] [place] [address]
--- OUTSIDE RECORDS SUMMARY | 2023-07-05 14:54 | External Medical Summary ---
Author Name Unknown Address Unknown Organization K1:LABORATORY [facility] - [address] [facility] [address] Laboratory Report Ordering Provider Test Date Status CAMMIE MENDOZA 03/19/2023 14:05:28 Final Observation Date Value Abnormality Reference (Units ) Status Adenovirus DNA [Presence] in Nasopharynx by JADEN with non-probe detection 03/19/2023 14:05:28 Negative Negative Final Human coronavirus 229E RNA [Presence] in Nasopharynx by JADEN with non-probe detection 03/19/2023 14:05:28 Negative Negative Final Human coronavirus HKU1 RNA [Presence] in Nasopharynx by JADEN with non-probe detection 03/19/2023 14:05:28 Negative Negative Final Human coronavirus NL63 RNA [Presence] in Nasopharynx by JADEN with non-probe detection 03/19/2023 14:05:28 Negative Negative Final Human coronavirus OC43 RNA [Presence] in Nasopharynx by JADEN with non-probe detection 03/19/2023 14:05:28 Negative Negative Final SARS-CoV-2 (COVID-19) RNA [Presence] in Nasopharynx by JADEN with non-probe detection 03/19/2023 14:05:28 Negative Negative Final Human metapneumovirus RNA [Presence] in Nasopharynx by JADNE with non-probe detection 03/19/2023 14:05:28 Negative Negative Final Rhinovirus+Enterovirus RNA [Presence] in Nasopharynx by JADEN with non-probe detection 03/19/2023 14:05:28 Negative Negative Final Influenza virus A RNA [Presence] in Nasopharynx by JADEN with non-probe detection 03/19/2023 14:05:28 Negative Negative Final Influenza virus B RNA [Presence] in Nasopharynx by JADEN with non-probe detection 03/19/2023 14:05:28 Negative Negative Final Parainfluenza virus 1 RNA [Presence] in Nasopharynx by JADEN with non-probe detection 03/19/2023 14:05:28 Negative Negative Final Parainfluenza virus 2 RNA [Presence] in Nasopharynx by JADEN with non-probe detection 03/19/2023 14:05:28 Negative Negative Final Parainfluenza virus 3 RNA [Presence] in Nasopharynx by JADEN with non-probe detection 03/19/2023 14:05:28 Negative Negative Final Parainfluenza virus 4 RNA [Presence] in Nasopharynx by JADEN with non-probe detection 03/19/2023 14:05:28 Negative Negative Final Respiratory syncytial virus RNA [Presence] in Nasopharynx by JADEN with non-probe detection 03/19/2023 14:05:28 Negative Negative Final Bordetella pertussis.pertussis toxin promoter region [Presence] in Nasopharynx by JADEN with non-probe detection 03/19/2023 14:05:28 Negative Negative Final Chlamydophila pneumoniae DNA [Presence] in Nasopharynx by JADEN with non-probe detection 03/19/2023 14:05:28 Negative Negative Final Mycoplasma pneumoniae DNA [Presence] in Nasopharynx by JADEN with non-probe detection 03/19/2023 14:05:28 Negative Negative Final Bordetella parapertussis [id number] DNA [Presence] in Nasopharynx by JADEN with non-probe detection 03/19/2023 14:05:28 Negative Negative Final Performing Location LABORATORY [facility] - [address] [facility] [address]
--- OUTSIDE RECORDS SUMMARY | 2023-07-05 14:54 | External Medical Summary ---
Author Name Unknown Address Unknown Organization K1:LABORATORY [facility] - [address] [facility] [address] Laboratory Report Ordering Provider Test Date Status CAMMIE MENDOZA 03/19/2023 14:04:14 Final Observation Date Value Abnormality Reference (Units ) Status SYNC LEUKOCYTES IN BLOOD BY AUTOMATED COUNT 03/19/2023 14:04:14 20.50 Above high normal 4.00-10.80 (K/uL) Final Segs 03/19/2023 14:04:14 85.2 Above high normal 40.0-75.0 (%) Final Lymphs % 03/19/2023 14:04:14 8.0 Below low normal 18.0-42.0 (%) Final Monos 03/19/2023 14:04:14 5.8 1.0-11.0 (%) Final Eosinophils 03/19/2023 14:04:14 0.0 0.0-6.0 (%) Final Basos 03/19/2023 14:04:14 0.2 0.0-2.0 (%) Final Immature Granulocyte, Percent 03/19/2023 14:04:14 0.8 0.0-2.0 (%) Final Absolute Segs 03/19/2023 14:04:14 17.47 Above high normal 1.80-7.70 (K/uL) Final Lymphs, absolute 03/19/2023 14:04:14 1.63 1.00-4.80 (K/ul) Final Monos, Abs 03/19/2023 14:04:14 1.19 Above high normal 0.00-1.10 (K/uL) Final Eos, Abs 03/19/2023 14:04:14 0.00 0.00-0.70 (K/uL) Final Basos, Abs 03/19/2023 14:04:14 0.04 0.00-0.20 (K/uL) Final Immature Granulocytes, Number 03/19/2023 14:04:14 0.17 0.00-0.20 (K/uL) Final Performing Location LABORATORY [facility] - [address] [place] [address]
--- OUTSIDE RECORDS SUMMARY | 2023-07-05 14:54 | External Medical Summary ---
Author Name Unknown Address Unknown Organization K01:LABORATORY [facility] [place] [facility] - [address] [address] Laboratory Report Ordering Provider Test Date Status CAMMIE MENDOZA 03/19/2023 14:10:00 Final Observation Date Value Abnormality Reference (Units ) Status ABO 03/19/2023 14:10:00 O Final RH 03/19/2023 14:10:00 Positive Final RED BLOOD CELL ANTIBODY SCREEN 03/19/2023 14:10:00 Negative Final SPECIMEN EXPIRATION DATE 03/19/2023 14:10:00 03/22/2023 23:59 Final Performing Location LABORATORY [facility] [place] [facility] - [address] [address]
--- OUTSIDE RECORDS SUMMARY | 2023-07-05 14:55 | External Medical Summary | Summary of Care ---
Author Name Unknown Organization [facility] Address [address] [place] [address] Phone [phone] Care Team Providers Care Web Content Producer Name Role Phone Tianna Jamie Yarely DO Primary Care Provider [phone] Reason for Visit * Reason Onset Date Comments STAIR Lung Nodule 03/13/2023 Lung Nodule Pr ogram Encounter Details Date Type Department Care Team Description 03/13/2023 Telephone STAIR LUNG NODULE [address] [place], [place] [address] Program, Stair [address] [place] [address] STAIR Lung Nodule (Lung Nodule Program) Allergies No known active allergiesdocumented as of this encounter (statuses as of 03/14/2023) Medications Medication Sig Dispensed Refills Start Date End Date Status Vitamin D 25 MCG (1000 UT) Oral Tablet Take by mouth . 0 Active Amoxicillin-Pot Clavulanate 875-125 MG Oral Tablet Take 1 Tablet by mouth in the morning and 1 Tablet before bedtime. Do all this for 10 days. 20 Tablet 0 03/12/2023 03/22/2023 Active Omeprazole 20 MG Oral Capsule Delayed Release (PriLOSEC)Indication s:Gastroesophageal reflux disease, unspecified whether esophagitis present,Anemia, unspecified type Take 1 Capsule by mouth in the morning. 1 hour before the first meal of the day. 30 Capsule 1 03/12/2023 Active documented as of this encounter (statuses as of 03/14/2023) Active Problems Problem Noted Date Mass of upper lobe of left lung 03/14/20 23 Cataract 08/08/2016 Family hx-breast malignancy 08/08/2016 Overview: [...] as of this encounter (statuses as of 03/14/2023) Resolved Problems Problem Noted Date Resolved Date Encounter for examination fo r normal comparison and control in clinical research program 11/21/2017 06/01/2020 Overview: DO NOT DELETE [employer] ([employer]) DETECT Study: Project # [id number], Duct Layer Supervisor: Khadar Dodd, PhD. SUMMARY: Goal: Establish test [...] contact study staff at ; after hours Duct Layer Supervisor via the [facility] hospital multi skilled operator . Please contact study team before resolving/deleting from patients problem list. Study phone number: [phone]. Diagnosis changed due to Research Module. Go to Snapshot for study details. Encounter for examination fo r normal comparison and control in clinical research program 11/21/2017 06/30/2022 Overview: DO NOT DELETE - [employer] ([employer]) DETECT Study: Project # [id number], Duct Layer Supervisor: Mykel Gill, MS, MPH. SUMMARY: Goal: Establish [...] contact study staff at ; after hours Duct Layer Supervisor via the [facility] hospital multi skilled operator . - Please contact study team before resolving/deleting from patients problem list. Study phone number: [phone]. Diagnosis changed due to Research Module. Go to Snapshot for study details. documented as of this encounter (statuses as of 03/14/2023) Immunizations Name Administration Dates Next Due Covid-19 [...] encounter Miscellaneous Notes * Telephone Encounter - DAVID Mcadams - 03/14/2023 4:24 PM EDT Called patient's daughter, Erin. Patient gave permission to speak with her about results. [phone] cell for Erin. Home phone for Erin [phone] Reba did not remember some of what we discussed. Erin would prefer we call her for appointments. See STAIR note for plan of care. Discussed plan with Erin. * Telephone Encounter - KRISTA Hand - 03/14/2023 4:19 PM EDT Patient's daughter Erin calling. Would like a return call from Sheila Caceres to [phone] * Telephone Encounter - DAVID Mcadams - 03/14/2023 9:36 AM EDT Lung Nodule Provider Review - Initial Clinical Summary: current smoker Reviewed below Imaging Interpretation: CT - Chest dated 03/12/23 Lung nodules: multiple Location: b/l Characteristics: DEBBIE mass, left perihilar consolidation, small left pleural effusion, smaller nodules < 6 mm Co-morbidity : findings of emphysema 1. Pulmonary Nodule Care Plan: Bronchoscopy ordered - details below Details: No previous scans for comparison. LAD also noted.CT done for mass noted on CXR. Chart notes patient reports weight loss. 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 Also noted slightly elevated WBC and elevated plts - she denies feeling ill at that time except forsome recent diarrhea after a hot fudge Monday,. Dr Graham replied - This is metastatic disease and there are multiple potential targets. I don't think the SC LN willbe accessible to IR. Read as prominent but not enlarged. IR Bx of the mass is also an option. EBUS is another option as well. Usually when pt with this degree of targets need a Bx we go with the quickest surest way to make a diagnosis. EBUS will definitely provide the diagnosis. Bronchoscopy Type: EBUS 2. Non-Pulmonary Nodule Incidental Finding: coronary calcification and renal cyst/nodule/mass 3. Patient contacted to review recommendations and next steps: Yes, important pulmonary nodule finding discussed Spoke with her daughter Erin. She says her mother has been feeling unwell for 2 weeks. She is anxious to get answers. Reba did not remember some of what she and I talked about. Erin would like us to call her for scheduling and such. 4. Message forwarded to needmadeIR Pool. Time spent: 40 minutes Care Plan developed after reviewing the case with MD Sheila Cueto CRNP STAIR (System to Track Abnormalities of Importance Reliably) * Telephone Encounter - Nicki Black LPN - 03/14/2023 8:38 AM EDT Lung Nodule Referral Triaging - Clinical Summary Name: Reba Delaney Age: [age] year old Patient Identified by: Specialty Referral Questions: 1. Have you ever smoked Cigarettes? yes - current smoker for 52 years and 3/4 packs per day at most 2. Have you ever had Cancer? No 3. Do you have any first degree relatives (parent, sibling or child) who have or had lung cancer? No 4. Have you ever had any Chest X-Rays done outside of [facility] in the past 5 years? No 5. Have you ever had any CAT scans of your chest, abdomen or spine done outside of [facility] in thepast 5 years? No 6. New patient to this specialty Next Steps: Assembly: CXR/Chest CT/Abdomen CT/Spine CT outside of [facility]: NA - images available in [facility]/PACS Ordering: Recent CT Chest (within 12 months): Available in [facility], [facility], or outside [facility] Message will be forwarded to [facility]EW[facility] Nodule Pool when necessary imaging is available for review. Nicki Black LPN Coordinator STAIR (System to Track Abnormalities of Importance Reliably) Patient managed in STAIR Program for Pulmonary Nodule - banner added * Telephone Encounter - Nicki Black LPN - 03/13/2023 8:58 AM EDT Line busy to enroll in STAIR documented in this encounter Plan of Treatment Upcoming Encounters Date Type Specialty Care Team Description 03/15/2023 Telemedicine Family Medicine Jamie Wynn DO [address] [place] [address] 08/31/2023 Office Visit Family Medicine Zofia Woodward CRNP [address] [place] [address] Health Maintenance Due Date Last Done Comments [...] as of this encounter Visit Diagnoses Diagnosis Tobacco use disorder- Primary Mass of upper lobe of left lung documented in this encounter Advance Directives Documents on File Type Date Recorded Patient Chart Snatcher Expl anation Advance Directives and Living Will 06/24/2022 ADVANCE DIRECTIVE / LIVING WILL Power of Non Destructive Evaluation Manager 06/24/2022 POWER OF A TTORNEY Care Teams Web Content Producer Relationship Specialty Start Date End Date Jamie Wynn DO [address] [place] [address] PCP - General Family Medicine 08/08/16 documented as of this encounter
--- OUTSIDE RECORDS SUMMARY | 2023-07-05 14:55 | External Medical Summary | Summary of Care ---
Author Name Unknown Organization [facility] [address] [facility] [address] Phone [phone] Care Team Providers Care Freight Car Loader Name Role Phone Jamie Wynn DO Primary Care Provider Reason for Visit * Reason Onset Date Comments Test Results 03/15/2023 Incidental findi ngs Encounter Details Date Type Department Care Team Description 03/15/2023 Telephone [facility] Fred Costa [address] [place] [address] Jamie Wynn DO [address] [place] [address] Test Results (Incidental findings) Allergies No known active allergiesdocumented as of this encounter (statuses as of 03/15/2023) Medications Medication Sig Dispensed Refills Start Date [...] the day. 30 Capsule 1 03/12/2023 Active Vitron-C 65-125 MG Oral Tablet (Iron-Vitamin C 65-125 mg per tab)Indications:Othe r iron deficiency anemia Take 1 Tablet by mouth in the morning and 1 Tablet before bedtime. For iron supplement, generic, take with food. 60 Tablet 5 03/13/2023 Active documented as of this encounter (statuses as of 03/15/2023) Active Problems Problem Noted Date Mass of [...] as of this encounter (statuses as of 03/15/2023) Resolved Problems Problem Noted Date Resolved Date Encounter for examination fo r normal comparison and control in clinical research program 11/21/2017 06/01/2020 Overview: DO NOT DELETE [facility] DETECT Study: Project # [id number], Medical Services Coordinator: Khadar Dodd, PhD. SUMMARY: Goal: [...] study staff at ; after hours Medical Services Coordinator via the [facility] [place] [facility] forklift truck operator . Please contact study team before resolving/deleting from patients problem list. Study phone number: [phone]. Diagnosis changed due to Research Module. Go to Snapshot for study details. Encounter for examination fo r normal comparison and control in clinical research program 11/21/2017 06/30/2022 Overview: DO NOT DELETE - [facility] AREN Study: Project # [id number], Medical Services Coordinator: Mykel Gill, MS, MPH. SUMMARY: [...] study staff at ; after hours Medical Services Coordinator via the [facility] [place] [facility] forklift truck operator . - Please contact study team before resolving/deleting from patients problem list. Study phone number: [phone]. Diagnosis changed due to Research Module. Go to Snapshot for study details. documented as of this encounter (statuses as of 03/15/2023) Immunizations Name Administration Dates Next Due Covid-19 [...] Telephone Encounter - Jamie Wynn DO - 03/15/2023 10:37 AM EDT Findings in process of being worked up, rp * Telephone Encounter - Karina Dallas LPN - 03/15/2023 10:25 AM EDT STAIR Incidental Findings Summary for PCP to Review Dr Jamie Wynn, DO Renetta MELENDEZ is managing your patient's pulmonary nodule (setting and tracking the care plans). However, your patient also has an incidental finding on their recent scan that [facility] does NOT manage. Please review the CT - Chest dated 03/12/2023 and follow through with evaluation of the coronary calcification and renal cyst/nodule/mass as clinically indicated. BRADY Angela (System to Track Abnormalities of Importance Reliably) [phone] CT CHEST W CONTRAST 03/12/2023 Narrative EXAM EXAM: CT CHEST W CONTRAST DATE TIME: 03/12/2023 - 03/12/2023 2:09 pm HISTORY 77 y/o F Abnormal CXR TECHNIQUE CT chest was performed with IV contrast COMPARISON Chest radiograph of 03/11/2023. FINDINGS LUNGS AND LARGE AIRWAYS: Patent central airways. An irregularly-shaped masslike left upper lobe consolidation involving the left apical pleura measures approximately 4.5 x 4.1 cm (11:49). A masslike left perihilar consolidation measures 3.6 x 2.8 cm (10, 103). A few smaller satellite nodules are present in the left upper lobe. Right apical pleural-parenchymal scarring. A few sub 6 millimeter pulmonary nodules are present elsewhere in the lungs (for example in the right lower lobe on series 10, image 141 measuring 4 millimeters and in the anterior right upper lobe on series 10, image 49 measuring 3 millimeters). Focus of linear atelectasis or scarring in the left lower lobe. PLEURA: Small left pleural effusion. VESSELS: Normal caliber thoracic aorta and main pulmonary artery. Atherosclerotic changes of the aorta. Coronary artery calcifications. HEART: Heart is normal in size.No pericardial effusion. MEDIASTINUM AND PAUL: Multiple enlarged heterogeneously enhancing mediastinal lymph nodes. For reference, a paratracheal lymph node at the level of the great vessels measures 1.9 x 1.5 cm. Left perihilar masslike consolidation as described above. CHEST WALL AND LOWER NECK: Prominent left supraclavicular lymph node measures 7 millimeters in short axis (10, 1). Multiple enlarged retropectoral and axillary lymph nodes. For reference, a left retropectoral lymph node measures 15 millimeters in short axis (10, 57). A left axillary lymph node measures 13 millimeters in short axis (10:59). VISUALIZED UPPER ABDOMEN: Partially imaged low-attenuation left renal lesion. BONES: Within normal limits. Impression IMPRESSION 1. An irregularly-shaped masslike left upper [...] left pleural effusion. 8. Coronary artery calcifications. This exam was submitted to the radiology district resource officer worklist and the ordering provider will be notified that the final report is available in [facility]. documented in this encounter Plan of Treatment Upcoming Encounters Date Type Specialty Care Team Description 03/20/2023 Hospital Encounter Endoscopy Dhruv Graham MD [address] [place] [address] 03/20/2023 Surgery Endoscopy hDruv Graham MD [address] [place] [address] BRONCHOSCOPY DIAGNOSTIC WITH OR WITHOUT WASHING 03/29/2023 Appointment Radiology 08/31/2023 Office Visit Family Medicine [place], DAVID Cortez [address] [facility] [place] [address] Scheduled Procedures Name Priority Associated Diagnoses Date/Ti [...] Documents on File Type Date Recorded Patient Bung Sewer Expl anation Advance Directives and Living Will 06/24/2022 ADVANCE DIRECTIVE / LIVING WILL Power of Simulation Analyst 06/24/2022 POWER OF A TTORNEY Care Teams Freight Car Loader Relationship Specialty Start Date End Date Jamie Wynn, [address] [place] [address] PCP - General Family Medicine 08/08/16 documented as of this encounter
--- OUTSIDE RECORDS SUMMARY | 2023-07-05 14:55 | External Medical Summary | Summary of Care ---
Author Name Unknown Organization [facility] Address [address] [place] [address] Phone [phone] Care Team Providers Care [facility] Pricing Consultant Name Role Phone Jamie Wynn DO Primary Care Provider [phone] Reason for Visit * Reason Onset Date Comments Pre Procedure Assessment 03/17/2023 Encounter Details Date Type Department Care Team Description 03/17/2023 Telephone Gastroenterology, [place] [address] [place] [address] Dhruv Graham MD [address], [place] [id number] Pre Procedure Assessment Allergies No known active allergiesdocumented as of this encounter (statuses as of 03/17/2023) Medications Medication Sig Dispensed Refills Start Date [...] the day. 30 Capsule 1 03/12/2023 Active Additional Information Patient not taking.Reported on 03/17/2023 Vitron-C 65-125 MG Oral Tablet (Iron-Vitamin C 65-125 mg per tab)Indications:Ot her iron deficiency anemia Take 1 Tablet by mouth in the morning and 1 Tablet before bedtime. For iron supplement, generic, take with food. 60 Tablet 5 03/13/2023 Active documented as of this encounter (statuses as of 03/17/2023) Active Problems Problem Noted Date Mass of [...] as of this encounter (statuses as of 03/17/2023) Resolved Problems Problem Noted Date Resolved Date Encounter for examination fo r normal comparison and control in clinical research program 11/21/2017 06/01/2020 Overview: DO NOT DELETE [facility] DETECT Study: Project # [id number], Sewer Separation Designer: Khadar Dodd, PhD. SUMMARY: Goal: Establish test [...] contact study staff at ; after hours Sewer Separation Designer via the [facility] grapple yarder operator . Please contact study team before resolving/deleting from patients problem list. Study phone number: [phone]. Diagnosis changed due to Research Module. Go to Snapshot for study details. Encounter for examination fo r normal comparison and control in clinical research program 11/21/2017 06/30/2022 Overview: DO NOT DELETE - [facility] AREN Study: Project # [id number], Sewer Separation Designer: Mykel Gill, MS, MPH. SUMMARY: Goal: Establish [...] contact study staff at ; after hours Sewer Separation Designer via the [facility] grapple yarder operator . - Please contact study team before resolving/deleting from patients problem list. Study phone number: [phone]. Diagnosis changed due to Research Module. Go to Snapshot for study details. documented as of this encounter (statuses as of 03/17/2023) Immunizations Name Administration Dates Next Due Covid-19 [...] encounter Miscellaneous Notes * Telephone Encounter - Delilah Morfin RN - 03/17/2023 8:38 AM EDT Completed anesthesia assessment on patient. Advised patient to arrive one hour prior to scheduled appointment time. General anesthesia reviewed with patient and/or family. Patient verbalized understanding of the information given. I have instructed the patient on which medications to take the day of the procedure, which are prilosec with a few sips of water the morning of the procedure. Patient instructed to not eat or drink after midnight prior to the procedure, except medications. Patient instructed to not smoke or use smokeless tobacco, not to wear any jewelry, or use lotion the day of theprocedure. Patient instructed to bring a hog driver. Patient voiced no other concerns or questions about the instructions provided to them about their procedure. Denies any flu-like symptoms (cough,fever or shortness of breath)or traveling outside the [place] (by plane/cruise ship) in the past 14 days or coming in contact with anyone that has tested positive for the Coronavirus. documented in this encounter Plan of Treatment Upcoming Encounters Date Type Specialty Care Team Description 03/20/2023 Hospital Encounter Endoscopy Dhruv Graham MD [address], [place] [id number] 03/20/2023 Surgery Endoscopy Dhruv Grhaam MD [address], [place] [id number] BRONCHOSCOPY DIAGNOSTIC WITH OR WITHOUT WASHING 03/29/2023 Appointment Radiology 03/31/2023 Appointment Radiology 08/31/2023 Office Visit Family Medicine Dep[place], DAVID Cortez [address] [facility] [place] [address] Scheduled Procedures Name Priority Associated Diagnoses Date/Ti [...] Documents on File Type Date Recorded 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
--- OUTSIDE RECORDS SUMMARY | 2023-07-05 14:55 | External Medical Summary | Summary of Care ---
Author Name Unknown Organization [facility] Address [address] [place] [address] Phone [phone] Care Team Providers Care Quill Layer Name Role Phone Jamie Wynn DO Primary Care Provider [phone] Reason for Referral * Precert (Within 10 days (routine)) - Authorized Specialty Diagnoses / Procedures Referred By Contac t Referred To Contact Radiology Diagnoses Mass of upper lobe of left lung Procedures MRI BRAIN W WO CONTRAST Traci Mitchell MD [address] [place] [address] Referral ID Status Reason Start Date Expiration Date V isits Requested Visits Authorized [id number] Authorized 03/21/2023 999 999 * Precert (Within 10 days (routine)) - Authorized Specialty Diagnoses / Procedures Referred By Contac t Referred To Contact Radiology Diagnoses Mass of upper lobe of left lung Procedures PET CT SKULL BASE TO MID-THIGH Traci Mitchell MD [address] [place] [address] Referral ID Status Reason Start Date Expiration Date V isits Requested Visits Authorized [id number] Authorized 03/21/2023 999 999 Reason for Visit * Reason Onset Date Comments Referral 03/13/2023 New patient refe rral triage Encounter Details Date Type Department Care Team Description 03/13/2023 New Patient Triage (DEPARTMENT HEAD USE ONLY) Hematology Oncology [facility] [address] [place] [address] Traci Mitchell MD [address] [place] [address] Referral (New patient referral triage) Allergies No [...] Had Left Replaced Yrs Ago, dr tia Elelr Trigger finger of right thumb 08/08/2016 ADVANCE [...] Overview: DO NOT DELETE [facility] AREN Study: Project # [id number], Settlement Technician: Khadar Dodd, PhD. SUMMARY: Goal: Establish [...] contact study staff at ; after hours Settlement Technician via the [facility] prom burn off operator . Please contact study team before resolving/deleting from patients problem list. Study phone number: [phone]. Diagnosis changed due to Research Module. Go to Snapshot for study details. Encounter for examination fo r normal comparison and control in clinical research program 11/21/2017 06/30/2022 Overview: DO NOT DELETE - [facility] DETECT Study: Project # [id number], Settlement Technician: Mykel Gill, MS, MPH. SUMMARY: Goal: [...] contact study staff at ; after hours Settlement Technician via the [facility] prom burn off operator . - Please contact study team before resolving/deleting from patients problem list. Study phone number: [phone]. Diagnosis changed due to Research Module. Go [...] Progress Notes * Traci Mitchell MD - 03/14/2023 4:59 PM EDT MEDICAL ONCOLOGY TRIAGE NOTE Is diagnosis confirmed?: No Is baseline/staging imaging completed?: No Are pre-visit labs completed?: No Is bone marrow biopsy recommended?: No Is [facility] clinic review recommended?: No RECOMMENDATIONS: PET/CT IR for CT guided Bx and send for NGS--can do Axillary LN if Pet Avid MRI brain [facility] appt in 2 weeks with above workup [...] mass recommending biopsy Enter order ID here: [id number] Specialty specific documentation: Hematology/Oncology NEW PATIENT - HEMATOLOGY/ONCOLOGY SPECIALTY TRIAGE Triage needed?: Yes Referring provider name: Jamie Gonsalez MD Confirmation of diagnosis: No TRIAGE PLAN: [...] for cold/flu symptoms documented in this encounter Plan of Treatment Upcoming Encounters Date Type Specialty Care Team Description 03/15/2023 Telemedicine Family Medicine Jamie Wynn DO [address] [place] [address] 08/31/2023 Office Visit Family Medicine Zofia Woodward CRNP [address] [place] [address] Scheduled Orders Name Type Priority Associated Diagnoses Orde r Schedule PET CT SKULL BASE TO MID-THIGH Medical Imaging Routine Mass of upper lobe of left lung Expected: 03/21/2023, Expires: 04/14/2024 IR BIOPSY Medical Imaging Routine Mass of upper lobe of left lung Ordered: 03/14/2023 MRI BRAIN W WO CONTRAST Medical Imaging [...] left lung- Primary documented in this encounter Advance Directives Documents on File Type Date Recorded Patient Aspnet Developer Expl anation Advance Directives and Living Will 06/24/2022 ADVANCE DIRECTIVE / LIVING WILL Power of Band Manager 06/24/2022 POWER OF A TTORNEY Care Teams Quill Layer Relationship Specialty Start Date End Date Jamie Wynn, [address] [facility] [place] [address] PCP - General Family Medicine 08/08/16 documented as of this encounter
--- OUTSIDE RECORDS SUMMARY | 2023-07-05 14:55 | External Medical Summary | Summary of Care ---
Author Name Unknown Organization [facility] Address [address] [place] [address] Phone [phone] Care Team Providers Care Electrical Journeyman Name Role Phone Jamie Wynn DO Primary Care Provider [phone] Reason for Visit * Reason Onset Date Comments Med Request 03/17/2023 Encounter Details Date Type Department Care Team Description 03/17/2023 Telephone [facility] Fred Costa [address] [place] [address] Anni Carr CRNP [address] [place] [address] Med Request Allergies No known active allergiesdocumented as of this encounter (statuses as of 03/17/2023) Medications Medication Sig Dispensed Refills Start Date End Date Status Vitamin D 25 MCG (1000 UT) Oral Tablet Take by mouth . 0 Active Amoxicillin-Pot Clavulanate 875-125 MG Oral Tablet Take 1 Tablet by mouth in the morning and 1 Tablet before bedtime. 20 Tablet 0 03/17/2023 Active Omeprazole 20 MG Oral Capsule Delayed [...] with food. 60 Tablet 5 03/17/2023 Active Amoxicillin-Pot Clavulanate 875-125 MG Oral Tablet [...] 11/21/2017 06/01/2020 Overview: DO NOT DELETE [facility] [employer] AREN Study: Project # [id number], Bingo Checker: Khadar Dodd, PhD. SUMMARY: Goal: Establish [...] contact study staff at ; after hours Bingo Checker via the [facility] halver machine operator . Please contact study team before resolving/deleting from patients problem list. Study phone number: [phone]. Diagnosis changed due to Research Module. Go to Snapshot for study details. Encounter for examination fo r normal comparison and control in clinical research program 11/21/2017 06/30/2022 Overview: DO NOT DELETE - [facility] [employer] DETECT Study: Project # [id number], Bingo Checker: Mykel Gill, MS, MPH. SUMMARY: Goal: [...] contact study staff at ; after hours Bingo Checker via the [facility] halver machine operator . - Please contact study team before resolving/deleting from patients problem list. Study phone number: [phone]. Diagnosis changed due to Research Module. Go [...] encounter Miscellaneous Notes * Telephone Encounter - Rossi Gregg [facility] - 03/17/2023 10:05 AM EDT Pharmacy states they did not receive transmitted script from 03/12 & 03/13. Pharmacist resending again. Thank you, Rossi Gregg, PharmD Staff Pharmacist TelePharmacy 03/17/23 10:06 AM [phone] * Telephone Encounter - Haley Winston CPhT - 03/17/2023 9:00 AM EDT Please resend Rx to [facility] Confirmed pharmacy did not receive original prescription. Pending Prescriptions: Disp Refills Amoxicillin-Pot Clavulanate 875-125 MG Or*20 Tab*0 Sig: Take 1 Tablet by mouth in the morning and 1 Tablet before bedtime. Omeprazole 20 MG Oral Capsule Delayed Rel*30 Cap*1 Sig: Take 1 Capsule by mouth in the morning. 1 hour before the first meal of the day. Last Visit: 03/09/2023 (in office), Visit date not found (telemedicine) 08/31/2023 If no future appointments scheduled, and last appointment is greater than a year ago, please schedule patient for a follow-up appointment Last date the medication was ordered: 03/12/23 Patient Phone Numbers Labs: Lab Results Component Value Date/Time CREAT 0.9 03/11/2023 09:05 AM CREAT 0.9 01/25/2017 09:57 AM POTASSIUM 4.7 03/11/2023 09:05 AM POTASSIUM 4.6 01/25/2017 09:57 AM TSH 1.61 03/11/2023 09:05 AM TSH 1.48 01/25/2017 09:57 AM LDLCALC 100 03/11/2023 09:05 AM LDLCALC 140 (A) 10/17/2022 12:00 AM LDLCALC 128 01/25/2017 09:57 AM LDLDIRECT NOT APPLICABLE 01/25/2017 09:57 AM ALT 13 03/11/2023 09:05 AM ALT 15 01/25/2017 09:57 AM HGBA1C 5.6 08/19/2021 12:19 PM documented in this encounter Plan of Treatment Upcoming Encounters Date Type Specialty Care Team Description 03/20/2023 Hospital Encounter Endoscopy Dhruv Graham MD [address] [facility] [place] [address] 03/20/2023 Surgery Endoscopy Dhruv Graham MD [address] [place] [address] BRONCHOSCOPY DIAGNOSTIC WITH OR WITHOUT WASHING 03/29/2023 Appointment Radiology 03/31/2023 Appointment Radiology 08/31/2023 Office Visit Family Medicine Dep[place], DAVID Cortez [address] [facility] [place] [id number] Scheduled Procedures Name Priority Associated Diagnoses Date/Ti [...] as of this encounter Visit Diagnoses Diagnosis Gastroesophageal reflux disease, unspecified whether esophagitis present Anemia, unspecified type Other iron deficiency anemia Lung disorder Other diseases of lung, not elsewhere classified documented in this encounter Advance Directives Documents on File Type Date Recorded 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
--- OUTSIDE RECORDS SUMMARY | 2023-07-05 14:55 | External Medical Summary | Summary of Care ---
Author Name Unknown Organization [facility] Address [address] [place] [address] Phone [phone] Care Team Providers Care Cold Working Supervisor Name Role Phone Jamie Wynn DO Primary Care Provider Reason for Referral * Precert (Within 10 days (routine)) - Authorized Specialty Diagnoses / Procedures Referred By Lubna t Referred To Contact Radiology Diagnoses Mass of upper lobe of left lung Procedures MRI BRAIN W WO CONTRAST Traci Mitchell MD [address] [place] [address] Referral ID Status Reason Start Date Expiration Date V isits Requested Visits Authorized [id number] Authorized 03/21/2023 999 999 * Precert (Within 10 days (routine)) - Authorized Specialty Diagnoses / Procedures Referred By Lubna guidry Referred To Contact Radiology Diagnoses Mass of upper lobe of left lung Procedures PET CT SKULL BASE TO MID-THIGH Traci Mitchell MD [address] [place] [address] Referral ID Status Reason Start Date Expiration Date V isits Requested Visits Authorized [id number] Authorized 03/21/2023 999 999 Reason for Visit * Reason Onset Date Comments Referral 03/13/2023 New patient refe rral triage Encounter Details Date Type Department Care Team Description 03/13/2023 New Patient Triage (TAB CUTTING MACHINE OPERATOR USE ONLY) Hematology Oncology [facility] [address] [place] [address] Traci Mitchell MD [address] [place] [address] Referral (New patient referral triage) Allergies No [...] program 11/21/2017 06/01/2020 Overview: DO NOT DELETE [employer] DETECT Study: Project # [id number], Lubricating Machine Tender: Khadar Dodd, PhD. SUMMARY: Goal: Establish test [...] contact study staff at ; after hours Lubricating Machine Tender via the [facility] naphthalene still operator . Please contact study team before resolving/deleting from patients problem list. Study phone number: [phone]. Diagnosis changed due to Research Module. Go to Snapshot for study details. Encounter for examination fo r normal comparison and control in clinical research program 11/21/2017 06/30/2022 Overview: DO NOT DELETE - [employer] DETECT Study: Project # [id number], Lubricating Machine Tender: Mykel Gill, MS, MPH. SUMMARY: Goal: Establish [...] contact study staff at ; after hours Lubricating Machine Tender via the [facility] hospital naphthalene still operator . - Please contact study team before resolving/deleting from patients problem list. Study phone number: [phone]. Diagnosis changed due to Research Module. Go [...] Progress Notes * Delilah Menjivar RN - 03/15/2023 12:39 [...] Is bone marrow biopsy recommended?: No Is [facility] clinic review recommended?: No RECOMMENDATIONS: PET/CT IR for CT guided Bx and send for NGS--can do Axillary LN if Pet Avid MRI brain [facility] appt in 2 weeks with above [...] mass recommending biopsy Enter order ID here: [id number] Specialty specific documentation: Hematology/Oncology NEW PATIENT - [...] Encounter Endoscopy Dhruv Graham MD [address] [place] [address] 03/20/2023 Surgery Endoscopy Dhruv Graham MD [address] [place] [address] BRONCHOSCOPY DIAGNOSTIC WITH OR WITHOUT WASHING 03/29/2023 Appointment Radiology 08/31/2023 Office Visit Family Medicine [place], DAVID Cortez [address] [facility] [place] [address] Scheduled Orders Name Type Priority Associated Diagnoses Orde r Schedule PET CT SKULL BASE TO MID-THIGH Medical Imaging Routine Mass of upper lobe of left lung Expected: 03/21/2023, Expires: 04/14/2024 MRI BRAIN W WO CONTRAST Medical Imaging Routine Mass of upper lobe of left lung Expected: 03/21/2023, Expires: 04/14/2024 Scheduled Procedures Name Priority Associated Diagnoses Date/Ti [...] of upper lobe of left lung- Primary Lung disorder Other diseases of lung, not elsewhere classified documented in this encounter Advance Directives Documents on File Type Date Recorded Patient Rib Chopper Expl anation Advance Directives and Living Will 06/24/2022 ADVANCE DIRECTIVE / LIVING WILL Power of Canteen Manager 06/24/2022 POWER OF A TTORNEY Care Teams Cold Working Supervisor Relationship Specialty Start Date End Date Jamie Wynn, [address] [facility] [place] [address] PCP - General Family Medicine 08/08/16 documented as of this encounter
--- OUTSIDE RECORDS SUMMARY | 2023-07-05 14:55 | External Medical Summary | Summary of Care ---
Author Name Unknown Organization [facility] Address [address] [place] [address] Phone [phone] Care Team Providers Care Emt P Name Role Phone Mayco Wynn DO Primary Care Provider [phone] Reason for Referral * Evaluate & Treat - Unlimited Visits (Within 3 days (urgent)) - Authorized Specialty Diagnoses / Procedures Referred By Contact Referred To Contact Thoracic and Cardiac Surgery / Cardiothoracic Surgery Diagnoses Abnormal CT of the chest Mass of lung Mayco Wynn DO [address] [place] [address] Referral ID Status Reason Start Date Expiration Date Visits Requested Visits Authorized [id number] Authorized Specialty Services Required 03/13/2023 999 999 Question Answer Referral Priority Within 3 days (urgent) Primary Reason for Referral? Lung Nodule/Mass Does your patient require surgical evaluation and/or treatment for a disease of the chest, other than heart disease? Yes Comments New left upper lobe lung lesion seen on CT scan, and weight loss, please consult and treat * Evaluate & Treat - Unlimited Visits (Within 3 days (urgent)) - Authorized Specialty Diagnoses / Procedures Referred By Contac t Referred To Contact Pulmonary Diseases / Pulmonary Diagnoses Anemia, unspecified type Abnormal CT of the chest Mass of lung Anni Carr CRNP [address] [place] [address] Referral ID Status Reason Start Date Expiration Date Visits Requested Visits Authorized [id number] Authorized Specialty Services Required 03/12/2023 999 999 Question Answer Referral Priority Within 3 Days (Urgent) Primary Reason for Referral? Lung Nodule/Mass Comments CT with suspicious mass recommending biopsy. Pt not yet aware of results, attempted to contact without answer. IMPRESSION 1. An irregularly-shaped masslike left upper [...] pleural effusion. 8. Coronary artery calcifications. * Evaluate & Treat - Unlimited Visits (Within 3 days (urgent)) - Authorized Specialty Diagnoses / Procedures Referred By Lubna guidry Referred To Contact Hematology/Oncology / Hematology Oncology Diagnoses Abnormal chest x-ray Anemia, unspecified type Abnormal CT of the chest Mass of lung Anni Carr CRNP [address] [place] [address] Referral ID Status Reason Start Date Expiration Date Visits Requested Visits Authorized [id number] Authorized Specialty Services Required 03/12/2023 999 999 Question Answer Referral Priority Within 3 days (urgent) Reason for Referral Other - Please Comment Comments Anemia/ CT with suspicious mass recommending biopsy. Pt not yet aware of results, attempted to contact without answer. IMPRESSION 1. An irregularly-shaped masslike left upper [...] pleural effusion. 8. Coronary artery calcifications. * Ancillary Services (Within 10 days (routine)) - Authorized Specialty Diagnoses / Procedures Referred By Contac t Referred To Contact Gastroenterology Diagnoses Loss of weight Gastroesophageal reflux disease, unspecified whether esophagitis present Anemia, unspecified type Anni Carr CRNP [address] [place] [address] Referral ID Status Reason Start Date Expiration Date Visits Requested Visits Authorized [id number] Authorized Ancillary Services Required 03/12/2023 999 999 Question Answer Referral Priority Within 10 days (routine) Comments Upper Endoscopy ASGE Guidelines other Anemia, GERD, weight loss ADDITIONAL INFORMATION 1. Is the patient on Coumadin? No 2. Is the patient on Pradaxa? No * Ancillary Services (Within 10 days (routine)) - Authorized Specialty Diagnoses / Procedures [facility] Referred To Contact Gastroenterology Diagnoses Loss of weight Gastroesophageal reflux disease, unspecified whether esophagitis present Anemia, unspecified type Anni Carr CRNP [address] [place] [address] Referral ID Status Reason Start Date Expiration Date Visits Requested Visits Authorized [id number] Authorized Ancillary Services Required 03/12/2023 999 999 Question Answer Referral Priority Within 10 days (routine) Comments ALERT: Do not order for pediatric patients (18 years or younger). Cancel off screen and order PEDS GASTROENTEROLOGY CONSULT (Type: 1 visit only-Evaluate and Treat) The following Pt. Instructions are available: - Gastro Colonoscopy Prep Instructions [37878] - Gastro Colonoscopy Prep Instructions (Slovak Version) [51411] Go to the Pt. Instructions section within the Visit Navigator to access. Colonoscopy ASGE Guidelines: Iron deficiency anemia ADDITIONAL INFORMATION 1. Is the patient on Coumadin? No 2. Is the patient on Pradaxa? No Reason for Visit * Reason Onset Date Comments Test Results 03/12/2023 Unexpected or In determinate Result Encounter Details Date Type Department Care Team Description 03/12/2023 Telephone Laboratory, [facility] [address] [place] [address] Anni Carr CRNP [address] [place], [place] [id number] Test Results (Unexpected or Indeterminate ... Allergies No known active allergiesdocumented as of [...] [facility] DETECT Study: Project # [id number], Mathematics Education Professor: Khadar Dodd, PhD. SUMMARY: Goal: Establish test [...] contact study staff at ; after hours Mathematics Education Professor via the [facility] hospital caustic room operator . Please contact study team before resolving/deleting from patients problem list. Study phone number: [phone]. Diagnosis changed due to Research Module. Go to Snapshot for study details. Encounter for examination fo r normal comparison and control in clinical research program 11/21/2017 06/30/2022 Overview: DO NOT DELETE - [email or web address] DETECT Study: Project # [id number], Mathematics Education Professor: Mykel Gill, MS, MPH. SUMMARY: Goal: Establish [...] contact study staff at ; after hours Mathematics Education Professor via the [facility] hospital caustic room operator . - Please contact study team before resolving/deleting from patients problem list. Study phone number: [phone]. Diagnosis changed due to Research Module. Go [...] Miscellaneous Notes * Telephone Encounter - DAVID Lind - 03/14/2023 12:17 PM EDT Noted, addressed by PCP, please continue his recommendation. * Addendum Note - Mayco Wynn DO - 03/13/2023 6:10 PM EDTAddended by: MAYCO WYNN on: 03/13/2023 06:10 PM Modules accepted: Orders * Telephone Encounter - Mayco Wynn DO - 03/13/2023 6:06 PM EDT Spoke with patient, is aware that she will be getting anemia workup, iron prescription, recheck blood work this week, and opinion from thoracic surgical department regarding new left upper lobe lung lesion, she will let us know if she does not get timely appointments or if does not hear back about these issues before the end of this week, she had no further questions at this time, is aware the GIreferral was done for probable upper and lower endoscopies also, aware to call if any worsening or persistent symptoms before getting a chance to see thoracic surgical department, for new left upper lobe lung lesion, Thanks, rp * Telephone Encounter - KRISTA Valadez - 03/13/2023 11:29 AM EDT Patient's daughter calling upset that patient has not yet been contacted regarding test results. She was advised that multiple attempts were made to contact pt. She verified that the patient's landline listed as primary phone number is correct and states that patient has had that phone with her. Daughter has reviewed letter in [facility] regarding test results and would like patient's home phone number to be used to receive a call to discuss results and advise what appointments need to be scheduled. She would like to accompany her mother to appointments but lives almost 2 hours away so willneed advance notice of appointment. Daughter declined next available appointment 03/23/23 stating that was too far away and not with a Doctor. Please call patient's home phone to discuss and schedule appointment. * Telephone Encounter - Mayco Wynn DO - 03/13/2023 9:45 AM EDT Attempted to contact patient, no answer, will continue to call, jaren carrero * Telephone Encounter - Mayco Wynn DO - 03/12/2023 8:09 PM EDT For left upper lobe abnormal CT scan, lesion seen on recent scan will get referral to see Cardiothoracic surgical department for further recommendations and possible biopsy, will contact patient, jaren carrero * Telephone Encounter - DAVID Lind - 03/12/2023 4:26 PM EDT Attempted to contact patient to review CT results. No answer, no option for voicemail Dr. Wynn, Can you please contact the patient regarding concern CT of chest. Suspicious mass/lymph nodes recommending further evaluation. I am out of the office tomorrow. IMPRESSION 1. An irregularly-shaped masslike left upper [...] left pleural effusion. 8. Coronary artery calcifications. For her anemia - Iron was low, ferritin was elevated. Can you please address until seen by Heme/Onc Hematology/Oncology referral placed. [facility] would only let me put in the STAIR referral for the lung mass. Recommend f/u with Pulmonary/Heme/Onc. DAVID Lind * Telephone Encounter - DAVID Lind - 03/12/2023 8:29 AM EDT Patient contacted to review results of imaging and labs. Still with flu like symptoms, epigastric discomfort/burping/GERD. Denies SOB CT scan ordered of chest to further evaluate abnormal CXR. Coverage Abx Given weight loss/anemia, PPI initiate given GERD symptoms. Discussed scopes given anemia and weight loss, patient is agreeable for ordered. Iron levels are pending. Repeat labs 1 week to monitor hemoglobin. Recommend ER if Chest pain, SOB, difficulty breathing, or severe worsening symptoms. Follow up withPCP otherwise for any concerns. Nursing/Front staff: Please contact the patient Monday to see how she is feeling and assist in scheduling recommended testing/follow. DAVID Lind * Telephone Encounter - KRISTA Lozoya - 03/12/2023 6:49 AM EDT Hello- The radiologist discovered an unexpected or indeterminate finding on Reba Delaney ([id number]) andasks that you review the following report. IMPRESSION IMPRESSION Increased focal opacity at the left lung apex, indeterminate. CT chest is recommended for further evaluation. Study Type: XR CHEST 2 VIEWS Date of Study: 03/11/2023 Please respond to this encounter to acknowledge receipt of this message and take responsibility to ensure this report is reviewed. Thank you, KRISTA Lozoya Client Service Rep [facility] documented in this encounter Plan of Treatment Upcoming Encounters Date Type Specialty Care Team Description 08/31/2023 Office Visit Family Medicine [place], DAVID Cortez [address] [place] [address] Scheduled Orders Name Type Priority Associated Diagnoses Orde r Schedule CBC Lab Routine Anemia, unspecified type Expected: 03/19/2023, Expires: 03/12/2024 CBC Lab Routine Other iron deficiency anemia Expected: 03/16/2023 (Approximate), Expires: 03/12/2024 Scheduled Referrals Name Type Priority Associated Diagnoses Orde r Schedule COLONOSCOPY, GI REFERRAL OP Referral Within 10 days (routine) Loss of weight Gastroesophageal reflux disease, unspecified whether esophagitis present Anemia, unspecified type Ordered: 03/12/2023 UPPER ENDOSCOPY GI REFERRAL OP Referral Within 10 days (routine) Loss of weight Gastroesophageal reflux disease, unspecified whether esophagitis present Anemia, unspecified type Ordered: 03/12/2023 HEMATOLOGY/ONCOLOGY REFERRAL OP Referral Within 3 days (urgent) Abnormal chest x-ray Anemia, unspecified type Abnormal CT of the chest Mass of lung Ordered: 03/12/2023 STAIR LUNG NODULE REFERRAL OP (SYSTEM FOR TRACKING ABNORMALITIES OF IMPORTANCE RELIABLY) Referral Within 3 days (urgent) Anemia, unspecified type Abnormal CT of the chest Mass of lung Ordered: 03/12/2023 THORACIC SURGERY REFERRAL OP Referral Within 3 days (urgent) Abnormal CT of the chest Mass of lung Ordered: 03/13/2023 Health Maintenance Due Date Last Done Comments [...] as of this encounter Visit Diagnoses Diagnosis Loss of weight- Primary Gastroesophageal reflux disease, unspecified whether esophagitis present Tobacco use disorder Flu-like symptoms Influenza with other respiratory manifestations Abnormal chest x-ray Other nonspecific abnormal finding of lung field Anemia, unspecified type Abnormal CT of the chest Nonspecific (abnormal) findings on radiological and other examination of other intrathoracic organs Mass of lung Swelling, mass, or lump in chest Other iron deficiency anemia documented in this encounter Advance Directives Documents on File Type Date Recorded Patient Nutrition Services Aide Expl anation Advance Directives and Living Will 06/24/2022 ADVANCE DIRECTIVE / LIVING WILL Power of Barbed Wire Machine Operator 06/24/2022 POWER OF A TTORNEY Care Teams Emt P Relationship Specialty Start Date End Date Mayco Wynn, [address] [place] [address] PCP - General Family Medicine 08/08/16 documented as of this encounter
--- OUTSIDE RECORDS SUMMARY | 2023-07-05 14:55 | External Medical Summary | Summary of Care ---
Author Name Unknown Organization [facility] Address [address] [place] [address] Phone [phone] Care Team Providers Care Sawmill Or Timber Yard Worker Name Role Phone Jamie Wynn DO Primary Care Provider Reason for Visit * Reason Onset Date Comments STAIR Lung Nodule 03/13/2023 Lung Nodule Pr ogram Encounter Details Date Type Department Care Team Description 03/13/2023 Telephone STAIR LUNG NODULE [address] [place], [place] [id number] Program, [facility] [address] [place] [address] STAIR Lung Nodule (Lung Nodule Program) Allergies [...] The Chronically Ill DETECT Study: Project # [id number], Chain Splitter: Khadar Dodd, PhD. SUMMARY: Goal: Establish test [...] contact study staff at ; after hours Chain Splitter via the [facility] hospital silo operator . Please contact study team before resolving/deleting from patients problem list. Study phone number: [phone]. Diagnosis changed due to Research Module. Go to Snapshot for study details. Encounter for examination fo r normal comparison and control in clinical research program 11/21/2017 06/30/2022 Overview: DO NOT DELETE - [facility] DETECT Study: Project # [id number], Chain Splitter: Mykel Gill, MS, MPH. SUMMARY: Goal: Establish [...] contact study staff at ; after hours Chain Splitter via the [facility] hospital silo operator . - Please contact study team before resolving/deleting from patients problem list. Study phone number: [phone]. Diagnosis changed due to Research Module. Go [...] Encounter - Karina Dallas LPN - 03/15/2023 10:24 AM EDT Jamie Wynn, DO - for your review. An important pulmonary nodule finding was noted. The follow-up Care Plan is Bronchoscopy. The STAIR Team will manage this lung nodule and take care of any ordering/scheduling. Lung Nodule Referral Triaging - Communication to Patient Patient contacted, recommendations reviewed, patient agrees, appointments scheduled/coordinated. Bronchoscopy scheduled 5/22/23 Time spent: 10 minutes Karina Dallas LPN Coordinator STAIR (System to Track Abnormalities of Importance Reliably) [phone] * Telephone Encounter - KRISTA Morin - 03/15/2023 8:48 AM EDT Patient has been scheduled for an EBUS @ [facility] on 03/20/2023 at 2:30PM. Instructions given to and reviewed with the patient's daughter, Erin. 1. Nothing to eat or drink after midnight before the test. 2. Arrive 1 hour prior to the procedure. 3. Report to the Endoscopy Suite via the [facility] entrance. 4. Patient will be under general anesthesia and will need a tanker driver. Blood thinners? No Reviewed that an Endo pre-assessment nurse will reach out to the patient prior to the procedure to go over additional details. She states understanding and has no questions. Please call Erin's cell at [phone]. Covid test scheduled. 03/19/2023 at home; Erin to report any sx or positive results. Res PCR completed on 03/09/23 and negative. She was advised that if they have any questions, they are encouraged to call the clinic, #[phone]. * Telephone Encounter - DAVID Mcadams - 03/14/2023 4:24 PM EDT Called patient's daughter, Erin. Patient gave permission to speak with her about results. [phone] cell for Erin. Home phone for Erin [phone] Reba did not remember some of what we discussed. Erin would prefer we call her for appointments. See NORA note for plan of care. Discussed plan with Erin. * Telephone Encounter - KRISTA Hand - 03/14/2023 4:19 PM EDT Patient's daughter Erin calling. Would like a return call from Sheila or Nicki to [phone] * Telephone Encounter - DAVID Mcadams - [...] scheduling and such. 4. Message forwarded to STAIR Pool. Time spent: 40 minutes Care Plan [...] had any Chest X-Rays done outside of [facility] in the past 5 years? No 5. Have you ever had any CAT scans of your chest, abdomen or spine done outside of [facility] in thepast 5 years? No 6. New patient to this specialty Next Steps: Assembly: CXR/Chest CT/Abdomen CT/Spine CT outside of [facility]: NA - images available in [employer]/PACS Ordering: Recent CT Chest (within 12 months): Available in [employer], [employer], or outside [facility] Message will be forwarded to SUPERVISOR WET POUR Nodule Pool when necessary imaging is available for review. Nicki Black LPN Coordinator STAMAL (System to Track Abnormalities of Importance Reliably) Patient managed in STAIR Program for Pulmonary Nodule - banner added * Telephone Encounter - Nicki Black LPN - 03/13/2023 8:58 AM EDT Line busy to enroll in STAIR documented in this encounter Plan of Treatment Upcoming Encounters Date Type Specialty Care Team Description 03/20/2023 Hospital Encounter Endoscopy Dhruv Graham MD [address] [place] [address] 03/20/2023 Surgery Endoscopy Dhruv Graham MD [address] [place] [address] BRONCHOSCOPY DIAGNOSTIC WITH OR WITHOUT WASHING 03/29/2023 Appointment Radiology 08/31/2023 Office Visit Family Medicine [place], DAVID Cortez [address] [place] [address] Scheduled Procedures Name Priority Associated Diagnoses Date/Ti [...] of upper lobe of left lung Lung disorder Other diseases of lung, not elsewhere classified documented in this encounter Advance Directives Documents on File Type Date Recorded Patient Bioinformatics Assistant Expl anation Advance Directives and Living Will 06/24/2022 ADVANCE DIRECTIVE / LIVING WILL Power of Gas Meter Reader 06/24/2022 POWER OF A TTORNEY Care Teams Sawmill Or Timber Yard Worker Relationship Specialty Start Date End Date Jamie Wynn, [address] [facility] [place] [address] PCP - General Family Medicine 08/08/16 documented as of this encounter
--- OUTSIDE RECORDS SUMMARY | 2023-07-05 14:55 | External Medical Summary | Summary of Care ---
Author Name Unknown Organization [facility] Address [address] [place] [address] Phone [phone] Care Team Providers Care Polish Compounder Name Role Phone Jamie Wynn DO Primary Care Provider Reason for Visit * Reason Onset Date Comments Pre Procedure Assessment 03/17/2023 Encounter Details Date Type Department Care Team Description 03/17/2023 Telephone Gastroenterology, [place] [address] [place] [address] Dhruv Graham MD [address], [place] [id number] Pre Procedure Assessment Allergies No known active [...] [facility] [place] DETECT Study: Project # [id number], Administrative Underwriter: Khadar Dodd, PhD. SUMMARY: Goal: Establish test [...] contact study staff at ; after hours Administrative Underwriter via the [facility] hospital band machine operator . Please contact study team before resolving/deleting from patients problem list. Study phone number: [phone]. Diagnosis changed due to Research Module. Go to Snapshot for study details. Encounter for examination fo r normal comparison and control in clinical research program 11/21/2017 06/30/2022 Overview: DO NOT DELETE - [facility] [place] AREN Study: Project # [id number], Administrative Underwriter: Mykel Gill, MS, MPH. SUMMARY: Goal: Establish [...] contact study staff at ; after hours Administrative Underwriter via the [facility] hospital band machine operator . - Please contact study team before resolving/deleting from patients problem list. Study phone number: [phone]. Diagnosis changed due to Research Module. Go [...] Encounter - Delilah Morfin RN - 03/17/2023 8:49 AM EDT Completed anesthesia assessment on patient. [...] of theprocedure. Patient instructed to bring a refrigerated company driver. Patient voiced no other concerns or [...] Encounter Endoscopy Dhruv Graham MD [address], [place] [id number] 03/20/2023 Surgery Endoscopy Dhruv Graham MD [address], [place] [id number] BRONCHOSCOPY DIAGNOSTIC WITH OR WITHOUT WASHING 03/29/2023 Appointment Radiology 03/31/2023 Appointment Radiology 08/31/2023 Office Visit Family Medicine [place], DAVID Cortez [address] [facility] [place] [address] Scheduled Procedures Name Priority Associated Diagnoses Date/Ti [...] Documents on File Type Date Recorded Patient Labor Relations Teacher Expl anation Advance Directives and Living Will 06/24/2022 ADVANCE DIRECTIVE / LIVING WILL Power of Funeral Counselor 06/24/2022 POWER OF A TTORNEY Care Teams Polish Compounder Relationship Specialty Start Date End Date Jamie Wynn, DO [address] [place] [address] PCP - General Family Medicine 08/08/16 documented as of this encounter
--- OUTSIDE RECORDS SUMMARY | 2023-07-05 14:55 | External Medical Summary | Summary of Care ---
Author Name Unknown Organization [facility] Address [address] [place] [address] Phone [phone] Care Team Providers Care Baggage Screener Name Role Phone Jamie Wynn DO Primary Care Provider Reason for Visit * Reason Onset Date Comments STAIR Lung Nodule 03/13/2023 Lung Nodule Pr ogram Encounter Details Date Type Department Care Team Description 03/13/2023 Telephone STAIR LUNG NODULE [address] [place], [place] [id number] Program, St[facility] [address] [place] [address] STAIR Lung Nodule (Lung Nodule Program) Allergies [...] [facility] DET[facility] Study: Project # [id number], Director Pharmacovigilance: Khadar Dodd, PhD. SUMMARY: Goal: Establish test [...] study staff at ; after hours Director Pharmacovigilance via the [facility] hospital x ray operator . Please contact study team before resolving/deleting from patients problem list. Study phone number: [phone]. Diagnosis changed due to Research Module. Go to Snapshot for study details. Encounter for examination fo r normal comparison and control in clinical research program 11/21/2017 06/30/2022 Overview: DO NOT DELETE - [facility] DETECT Study: Project # [id number], Director Pharmacovigilance: Mykel Gill, MS, MPH. SUMMARY: Goal: Establish [...] study staff at ; after hours Director Pharmacovigilance via the [facility] hospital x ray operator . - Please contact study team before resolving/deleting from patients problem list. Study phone number: [phone]. Diagnosis changed due to Research Module. Go [...] Miscellaneous Notes * Telephone Encounter - KRISTA Morin - 03/15/2023 8:48 AM EDT Patient has been scheduled for an EBUS @ [facility] on 03/20/2023 at 2:30PM. Instructions given to and reviewed with the patient's daughter, Erin. 1. Nothing to eat or drink after midnight before the test. 2. Arrive 1 hour prior to the procedure. 3. Report to the Endoscopy Suite via the [facility] entrance. 4. Patient will be under general anesthesia and will need a straddle bug driver. Blood thinners? No Reviewed that an Endo pre-assessment nurse will reach out to the patient prior to the procedure to go over additional details. She states understanding and has no questions. Please call Erin's cell at [phone]. Covid test scheduled. 03/19/2023 at home; Erin to report any sx or positive results. Res PCR completed on 03/09/23 and negative. She was advised that if they have any questions, they are encouraged to call the clinic, #[phone]. * Telephone Encounter - DAVID Mcadams - 03/14/2023 4:24 PM EDT Called patient's daughter, Erin. Patient gave permission to speak with her about results. [phone] cell for Erin. Home phone for Erin [phone] Reba did not remember some of what we discussed. Erin would prefer we call her for appointments. See STAIR note for plan of care. Discussed plan with Erin. * Telephone Encounter - KRISTA Hand - 03/14/2023 4:19 PM EDT Patient's daughter Erin calling. Would like a return call from Sheila Caceres to [phone] * Telephone Encounter - DAVID Mcadams - [...] scheduling and such. 4. Message forwarded to Sumerian. Time spent: 40 minutes Care Plan developed [...] of [facility]: NA - images available in [email or web address] Ordering: Recent CT Chest (within 12 months): Available in [facility], [facility], or outside [facility] Message will be forwarded to BLACK TOP SPREADER MACHINE OPERATOR Nodule Pool when necessary imaging is available [...] Encounter Endoscopy Dhruv Graham MD [address] [place] [address] 03/20/2023 Surgery Endoscopy Dhruv Graham MD [address] [place] [address] BRONCHOSCOPY DIAGNOSTIC WITH OR WITHOUT WASHING 03/29/2023 Appointment Radiology 08/31/2023 Office Visit Family Medicine [place], DAVID Cortez [address] [place] [address] Scheduled Procedures Name Priority Associated Diagnoses Date/Ti [...] Documents on File Type Date Recorded Patient Mixer And Scaler Expl anation Advance Directives and Living Will 06/24/2022 ADVANCE DIRECTIVE / LIVING WILL Power of Health Information Tech 06/24/2022 POWER OF A TTORNEY Care Teams Baggage Screener Relationship Specialty Start Date End Date Jamie Wynn DO [address] [place] [address] PCP - General Family Medicine 08/08/16 documented as of this encounter
--- OUTSIDE RECORDS SUMMARY | 2023-07-05 14:55 | External Medical Summary | Summary of Care ---
Author Name Unknown Organization [facility] Address [address] [facility] [address] Phone [phone] Care Team Providers Care Mud Car Worker Name Role Phone Jamie Wynn DO Primary Care Provider [phone] Reason for Visit * Reason Onset Date Comments Test Results 03/15/2023 Incidental findi ngs Encounter Details Date Type Department Care Team Description 03/15/2023 Telephone [facility] Fred Costa [address] [place] [address] Jamie Wynn DO [address] [place] [address] Test Results (Incidental findings) [...] [facility] DETECT Study: Project # [id number], Senior Mobile Developer: Khadar Dodd, PhD. SUMMARY: Goal: Establish test [...] contact study staff at ; after hours Senior Mobile Developer via the [facility] hospital thread milling machine set up operator . Please contact study team before resolving/deleting from patients problem list. Study phone number: [phone]. Diagnosis changed due to Research Module. Go to Snapshot for study details. Encounter for examination fo r normal comparison and control in clinical research program 11/21/2017 06/30/2022 Overview: DO NOT DELETE - [facility] AREN Study: Project # [id number], Senior Mobile Developer: Mykel Gill, MS, MPH. SUMMARY: Goal: Establish [...] contact study staff at ; after hours Senior Mobile Developer via the [facility] hospital thread milling machine set up operator . - Please contact study team before resolving/deleting from patients problem list. Study phone number: [phone]. Diagnosis changed due to Research Module. Go [...] (System to Track Abnormalities of Importance Reliably) [phone] CT CHEST W CONTRAST 03/12/2023 Narrative EXAM [...] This exam was submitted to the radiology labor relations officer worklist and the ordering provider will be notified that the final report is available in [facility]. documented in this encounter Plan of Treatment Upcoming Encounters Date Type Specialty Care Team Description 03/20/2023 Hospital Encounter Endoscopy Dhruv Graham MD [address] [place] [address] 03/20/2023 Surgery Endoscopy Dhruv Graham MD [address] [place] [address] BRONCHOSCOPY DIAGNOSTIC WITH OR WITHOUT WASHING 03/29/2023 Appointment Radiology 08/31/2023 Office Visit Family Medicine [place], DAVID Cortez [address] [facility] [place] [address] Scheduled Procedures Name Priority Associated Diagnoses Date/Ti [...] Documents on File Type Date Recorded Patient Stockkeeper Expl anation Advance Directives and Living Will 06/24/2022 ADVANCE DIRECTIVE / LIVING WILL Power of Artists' Model 06/24/2022 POWER OF A TTORNEY Care Teams Mud Car Worker Relationship Specialty Start Date End Date Jamie Wynn, [address] [place] [address] PCP - General Family Medicine 08/08/16 documented as of this encounter
--- OUTSIDE RECORDS SUMMARY | 2023-07-05 14:56 | External Medical Summary | Summary of Care ---
Author Name Unknown Organization [facility] Address [address] [place] [address] Phone [phone] Care Team Providers Care General Assignment Reporter Name Role Phone Jamie Wynn DO Primary Care Provider [phone] Reason for Referral * Evaluate & Treat - Unlimited Visits (Within 3 days (urgent)) - Authorized Specialty Diagnoses / Procedures Referred By Contac t Referred To Contact Pulmonary Diseases / Pulmonary Diagnoses Anemia, unspecified type Abnormal CT of the chest Mass of lung Anni Crar CRNP [address] [place] [address] Referral ID Status Reason Start Date Expiration Date Visits Requested Visits Authorized [id number] Authorized Specialty Services Required 03/12/2023 999 999 [...] Mass of lung Anni Carr CRNP [address] [place] [address] Referral ID Status Reason Start Date Expiration Date Visits Requested Visits Authorized [id number] Authorized Specialty Services Required 03/12/2023 999 999 [...] Lub[place] guidry Referred To Contact Gastroenterology Diagnoses Loss of weight Gastroesophageal reflux disease, unspecified whether esophagitis present Anemia, unspecified type Anni Carr CRNP [address] [place] [address] Referral ID Status Reason Start Date Expiration Date Visits Requested Visits Authorized [id number] Authorized Ancillary Services Required 03/12/2023 999 999 [...] Anemia, unspecified type Anni Carr CRNP [address] [place] [address] Referral ID Status Reason Start Date Expiration Date Visits Requested Visits Authorized [id number] Authorized Ancillary Services Required 03/12/2023 999 999 Question Answer Referral Priority Within 10 days (routine) Comments ALERT: Do not order for pediatric patients (18 years or younger). Cancel off screen and order PEDS GASTROENTEROLOGY CONSULT (Type: 1 visit only-Evaluate and Treat) The following Pt. Instructions are available: - Gastro Colonoscopy Prep Instructions [96433] - Gastro Colonoscopy Prep Instructions (Yakut Version) [[id number]] Go to the Pt. Instructions section within the Visit Navigator to access. Colonoscopy ASGE Guidelines: Iron deficiency anemia ADDITIONAL INFORMATION 1. Is the patient on Coumadin? No 2. Is the patient on Pradaxa? No Reason for Visit * Reason Onset Date Comments Test Results 03/12/2023 Unexpected or In determinate Result Encounter Details Date Type Department Care Team Description 03/12/2023 Telephone Laboratory, [place] [address] [place] [address] Anni Carr CRNP [address] [place] [address] Test Results (Unexpected or Indeterminate ... Allergies No known active allergiesdocumented as of this encounter (statuses as of 03/12/2023) Medications Medication Sig Dispensed Refills Start Date [...] as of this encounter (statuses as of 03/12/2023) Active Problems Problem Noted Date Cataract 08/08/2016 Family hx-breast malignancy 08/08/2016 Overview: [...] as of this encounter (statuses as of 03/12/2023) Resolved Problems Problem Noted Date Resolved Date Encounter for examination fo r normal comparison and control in clinical research program 11/21/2017 06/01/2020 Overview: DO NOT DELETE [facility] DETECT Study: Project # [id number], Lens And Frames Prescription Clerk: Khadar Dodd, PhD. SUMMARY: Goal: Establish [...] contact study staff at ; after hours Lens And Frames Prescription Clerk via the [facility] stone mill operator . Please contact study team before resolving/deleting from patients problem list. Study phone number: [phone]. Diagnosis changed due to Research Module. Go to Snapshot for study details. Encounter for examination fo r normal comparison and control in clinical research program 11/21/2017 06/30/2022 Overview: DO NOT DELETE - [facility] DETECT Study: Project # [id number], Lens And Frames Prescription Clerk: Mykel Gill, MS, MPH. SUMMARY: Goal: [...] contact study staff at ; after hours Lens And Frames Prescription Clerk via the [facility] hospital stone mill operator . - Please contact study team before resolving/deleting from patients problem list. Study phone number: [phone]. Diagnosis changed due to Research Module. Go to Woto for study details. documented as of this encounter (statuses as of 03/12/2023) Immunizations Name Administration Dates Next Due Covid-19 [...] until seen by Heme/Onc Hematology/Oncology referral placed. [facility] would only let me put in the [...] an unexpected or indeterminate finding on Reba Tomry ([id number]) andasks that you review the following report. IMPRESSION IMPRESSION Increased focal opacity at the left lung apex, indeterminate. CT chest is recommended for further evaluation. Study Type: XR CHEST 2 VIEWS Date of Study: 03/11/2023 Please respond to this encounter to acknowledge receipt of this message and take responsibility to ensure this report is reviewed. Thank you, KRISTA Lozoya Client Service Rep [facility] documented in this encounter Plan of Treatment Upcoming Encounters Date Type Specialty Care Team Description 08/31/2023 Office Visit Family Medicine [place], DAVID Cortez [address] [place] [address] Scheduled Orders Name Type Priority Associated Diagnoses Orde r Schedule CBC Lab Routine Anemia, unspecified type Expected: 03/19/2023, Expires: 03/12/2024 Scheduled Referrals Name Type Priority [...] the chest Mass of lung Ordered: 03/12/2023 Health Maintenance Due Date Last Done Comments [...] lung Swelling, mass, or lump in chest documented in this encounter Advance Directives Documents on File Type Date Recorded Patient Protective Services Case Worker Expl anation Advance Directives and Living Will 06/24/2022 ADVANCE DIRECTIVE / LIVING WILL Power of Coach Operator 06/24/2022 POWER OF A TTORNEY Care Teams General Assignment Reporter Relationship Specialty Start Date End Date Jamie Wynn, [address] [place] [address] PCP - General Family Medicine 08/08/16 documented as of this encounter
--- OUTSIDE RECORDS SUMMARY | 2023-07-05 14:56 | External Medical Summary | Summary of Care ---
Author Name Unknown Organization [facility] Address [address] [place] [address] Phone [phone] Care Team Providers Care Major Gifts Officer Name Role Phone Jamie Wynn DO Primary Care Provider [phone] Reason for Referral * Evaluate & Treat - Unlimited Visits (Within 3 days (urgent)) - Authorized Specialty Diagnoses / Procedures Referred By Contac t Referred To Contact Pulmonary Diseases / Pulmonary Diagnoses Anemia, unspecified type Abnormal CT of the chest Mass of lung Anni Carr CRNP [address] [place] [address] Referral ID Status Reason Start Date Expiration Date Visits Requested Visits Authorized [id number] Authorized Specialty Services Required 03/12/2023 999 999 [...] Mass of lung Anni Carr CRNP [address] [place] [address] Referral ID Status Reason Start Date Expiration Date Visits Requested Visits Authorized [id number] Authorized Specialty Services Required 03/12/2023 999 999 [...] Anemia, unspecified type Anni Carr CRNP [address] [place] [address] Referral ID Status Reason Start Date Expiration Date Visits Requested Visits Authorized [id number] Authorized Ancillary Services Required 03/12/2023 999 999 [...] Anemia, unspecified type Anni Carr CRNP [address] [place] [address] Referral ID Status Reason Start Date Expiration Date Visits Requested Visits Authorized [id number] Authorized Ancillary Services Required 03/12/2023 999 999 Question Answer Referral Priority Within 10 days (routine) Comments ALERT: Do not order for pediatric patients (18 years or younger). Cancel off screen and order PEDS GASTROENTEROLOGY CONSULT (Type: 1 visit only-Evaluate and Treat) The following Pt. Instructions are available: - Gastro Colonoscopy Prep Instructions [[id number]] - Gastro Colonoscopy Prep Instructions (Welsh Version) [[id number]] Go to the Pt. Instructions section within the Visit Navigator to access. Colonoscopy ASGE Guidelines: Iron deficiency anemia ADDITIONAL INFORMATION 1. Is the patient on Coumadin? No 2. Is the patient on Pradaxa? No Reason for Visit * Reason Onset Date Comments Test Results 03/12/2023 Unexpected or In determinate Result Encounter Details Date Type Department Care Team Description 03/12/2023 Telephone Laboratory, [place] [address] [place] [address] Anni Carr CRNP [address] [place] [address] Test Results (Unexpected or Indeterminate ... Allergies No known active allergiesdocumented as of this encounter (statuses as of 03/13/2023) Medications Medication Sig Dispensed Refills Start Date [...] as of this encounter (statuses as of 03/13/2023) Active Problems Problem Noted Date Cataract 08/08/2016 [...] as of this encounter (statuses as of 03/13/2023) Resolved Problems Problem Noted Date Resolved Date Encounter for examination fo r normal comparison and control in clinical research program 11/21/2017 06/01/2020 Overview: DO NOT DELETE [facility] DETECT Study: Project # [id number], Necktie Operator Pockets And Pieces: Khadar Dodd, PhD. SUMMARY: Goal: Establish test [...] contact study staff at ; after hours Necktie Operator Pockets And Pieces via the [facility] electronic equipment set up operator . Please contact study team before resolving/deleting from patients problem list. Study phone number: [phone]. Diagnosis changed due to Research Module. Go to Snapshot for study details. Encounter for examination fo r normal comparison and control in clinical research program 11/21/2017 06/30/2022 Overview: DO NOT DELETE - [facility] DETECT Study: Project # [id number], Necktie Operator Pockets And Pieces: Mykel Gill, MS, MPH. SUMMARY: Goal: Establish [...] contact study staff at ; after hours Necktie Operator Pockets And Pieces via the [facility] hospital electronic equipment set up operator . - Please contact study team before resolving/deleting from patients problem list. Study phone number: [phone]. Diagnosis changed due to Research Module. Go to [employer]Ksolar for study details. documented as of this encounter (statuses as of 03/13/2023) Immunizations Name Administration Dates Next Due Covid-19 [...] Telephone Encounter - Jamie Wynn DO - 03/13/2023 9:45 AM EDT Attempted to contact patient, no answer, will continue to call, jaren carrero * Telephone Encounter - Jamie Wynn DO - 03/12/2023 8:09 PM EDT [...] until seen by Heme/Onc Hematology/Oncology referral placed. [facility] would only let me put in the STAIR referral for the lung mass. Recommend f/u with Pulmonary/Heme/Onc. DAVID Lind * Telephone Encounter - DAVID Lidn - 03/12/2023 8:29 AM EDT Patient contacted [...] unexpected or indeterminate finding on Reba Delaney ([id number]) andasks that you review the following report. IMPRESSION IMPRESSION Increased focal opacity at the left lung apex, indeterminate. CT chest is recommended for further evaluation. Study Type: XR CHEST 2 VIEWS Date of Study: 03/11/2023 Please respond to this encounter to acknowledge receipt of this message and take responsibility to ensure this report is reviewed. Thank you, KRISTA Lozoya Client Service [facility] documented in this encounter Plan of Treatment Upcoming Encounters Date Type Specialty Care Team Description 08/31/2023 Office Visit Family Medicine [place], DAVID Cortez [address] [place] [address] Scheduled Orders Name Type Priority Associated Diagnoses [...] on File Type Date Recorded Patient Associate Professor Of Forestry Expl anation Advance Directives and Living Will 06/24/2022 ADVANCE DIRECTIVE / LIVING WILL Power of Sports Athletic Trainer 06/24/2022 POWER OF A TTORNEY Care Teams Major Gifts Officer Relationship Specialty Start Date End Date Jamie Wynn DO [address] [place] [address] PCP - General Family Medicine 08/08/16 documented as of this encounter
--- OUTSIDE RECORDS SUMMARY | 2023-07-05 14:56 | External Medical Summary | Summary of Care ---
Author Name Unknown Organization [facility] Address [address] [place] [address] Phone [phone] Care Team Providers Care Superintendent Water And Sewer Systems Name Role Phone Jamie Wynn DO Primary Care Provider [phone] Reason for Visit * Precert (Within 24 hrs (call dept; emergent)) - Authorized Specialty Diagnoses / Procedures Referred By Contac t Referred To Contact Radiology Diagnoses Flu-like symptoms Abnormal chest x-ray Procedures CT CHEST W CONTRAST CT CHEST W WO CONTRAST Anni Carr CRNP [address] [place] [address] Referral ID Status Reason Start Date Expiration Date V isits Requested Visits Authorized [id number] Authorized 03/12/2023 999 999 Encounter Details Date Type Department Care Team Description 03/12/2023 Hospital Encounter Radiology, [facility] [address], [place] [id number] Arrived Allergies No known active allergiesdocumented as [...] the day. 30 Capsule 1 03/12/2023 Active Hospital, Clinic, or Other Facility Administered Medication Ordered Dose Route Frequency Start Date End Date Status sodium chloride 0.9 % flush/inj 10 mL 10 mL IV PUSH ONCE 03/12/2023 03/12/2023 Ended documented as of this encounter (statuses [...] [facility] DET[facility] Study: Project # [id number], Despatch Clerk: Khadar Dodd, PhD. SUMMARY: Goal: Establish [...] contact study staff at ; after hours Despatch Clerk via the [facility] pickling tank operator . Please contact study team before resolving/deleting from patients problem list. Study phone number: [phone]. Diagnosis changed due to Research Module. Go to Snapshot for study details. Encounter for examination fo r normal comparison and control in clinical research program 11/21/2017 06/30/2022 Overview: DO NOT DELETE - [facility] Study: Project # [id number], Despatch Clerk: Mykel Gill, MS, MPH. SUMMARY: Goal: [...] contact study staff at ; after hours Despatch Clerk via the [facility] pickling tank operator . - Please contact study team before resolving/deleting from patients problem list. Study phone number: [phone]. Diagnosis changed due to Research Module. Go [...] as of this encounter Miscellaneous Notes * Result Encounter Note - DAVID Lind - 03/12/2023 2:00 PM EDT Attempted to contact patient to review. No answer, busy when attempted to call, no option for VM. * Result Encounter Note - Jamie Wynn DO - 03/12/2023 2:00 PM EDT Attempted to call patient regarding anemia workup and abnormal CT scan of chest workup, no answer,,will continue to attempt to contact, rp documented in this encounter Plan of Treatment Upcoming Encounters Date Type Specialty Care Team Description 08/31/2023 Office Visit Family Medicine [place], DAVID Cortez [address] [place] [address] Health Maintenance Due Date Last Done Comments [...] Procedure Name Priority Date/Time Associated Diagnosis Comments CT CHEST W CONTRAST STAT 03/12/2023 2 :09 PM EDT Flu-like symptoms Abnormal chest x-ray documented in this encounter Results * CT CHEST W CONTRAST (03/12/2023 2:09 PM EDT) Anatomical Region Laterality Modality Chest, Body, Cardio Computed Nitin ography 03/12/2023 3:14 PM EDT Impressions 03/12/2023 3:12 PM EDT IMPRESSION 1. An irregularly-shaped masslike left upper [...] This exam was submitted to the radiology hydrological technical officer worklist and the ordering provider will be notified that the final report is available in EPIC. Narrative 03/12/2023 3:12 PM EDT EXAM EXAM: CT CHEST W CONTRAST DATE [...] left renal lesion. BONES: Within normal limits. Procedure Note Beronica Thomas MD - 03/12/2023 EXAM EXAM: CT CHEST W CONTRAST DATE TIME: 03/12/2023 - 03/12/2023 2:09 pm HISTORY 77 y/o F Abnormal CXR TECHNIQUE CT chest was performed with IV contrast COMPARISON Chest radiograph of 03/11/2023. FINDINGS LUNGS AND LARGE AIRWAYS: Patent central airways. An irregularly-shapedmasslike left upper lobe consolidation involving the left apical pleurameasures approximately 4.5 x 4.1 cm (11:49). A masslike left perihilarconsolidation measures 3.6 x 2.8 cm (10, 103). A few smaller satellitenodules are present in the left upper lobe. Right apicalpleural-parenchymal scarring. A few sub 6 millimeter pulmonary nodulesare present elsewhere in the lungs (for example in the right lower lobe onseries 10, image 141 measuring 4 millimeters and in the anterior rightupper lobe on series 10, image 49 measuring 3 millimeters). Focus oflinear atelectasis or scarring in the left lower lobe. PLEURA: Small left pleural effusion. VESSELS: Normal caliber thoracic aorta and main pulmonary artery.Atherosclerotic changes of the aorta. Coronary artery calcifications. HEART: Heart is normal in size.No pericardial effusion. MEDIASTINUM AND PAUL: Multiple enlarged heterogeneously enhancingmediastinal lymph nodes. For reference, a paratracheal lymph node at thelevel of the great vessels measures 1.9 x 1.5 cm. Left perihilar masslikeconsolidation as described above. CHEST WALL AND LOWER NECK: Prominent left supraclavicular lymph nodemeasures 7 millimeters in short axis (10, 1). Multiple enlargedretropectoral and axillary lymph nodes. For reference, a leftretropectoral lymph node measures 15 millimeters in short axis (10, 57).A left axillary lymph node measures 13 millimeters in short axis(10:59). VISUALIZED UPPER ABDOMEN: Partially imaged low-attenuation left renallesion. BONES: Within normal limits. IMPRESSION IMPRESSION 1. An irregularly-shaped masslike left upper lobe consolidation involvingthe left apical pleura measures approximately 4.5 x 4.1 cm, indeterminatebut highly suspicious for neoplasm. 2. A masslike left perihilar consolidation measures 3.6 x 2.8 cm,indeterminate but highly suspicious for neoplasm. 3. A few smaller satellite nodules are present in the left upper lobe. 4. Additionally there are a few scattered sub 6 millimeter pulmonarynodules elsewhere in the lungs, indeterminate. 5. Multiple enlarged mediastinal, left retropectoral, and left axillarylymph node, suspicious for geoff metastases. 6. A prominent but non-enlarged left supraclavicular lymph node measures 7millimeters in short axis, indeterminate. 7. Small left pleural effusion. 8. Coronary artery calcifications. This exam was submitted to the radiology hydrological technical officer worklist and theordering provider will be notified that the final report is available inEPIC. Anni Carr BEHAVIORAL HEALTH TECHNICIAN RAD CT documented in this encounter Visit Diagnoses Diagnosis Flu-like symptoms Influenza with other respiratory manifestations Abnormal chest x-ray Other nonspecific abnormal finding of lung field documented in this encounter Administered Medications Inactive Administered Medications - up to 3 most recent administrations Medication Order MAR Action Action Date Dose Rate Site Iopromide 77% (Ultravist 370) inj 100 mL 100 mL, Intravenous, ONCE, On 03/12/23 at 1350, For 1 dose, Radiology Medication Routing (Non-IR) Given 03/12/2023 1:50 PM EDT 100 mL sodium chloride 0.9 % flush/inj 10 mL 10 mL, IV Push, ONCE, On 03/12/23 at 1350, For 1 dose, Do not flush if lock, PICC, or central line not in place; IV infusing or unable to flush., Radiology Medication Routing (Non-IR) Given 03/12/2023 2:09 PM EDT 10 mL documented in this encounter Advance Directives Documents on File Type Date Recorded Patient Flagger Expl anation Advance Directives and Living Will 06/24/2022 ADVANCE DIRECTIVE / LIVING WILL Power of Financial Professional 06/24/2022 POWER OF A TTORNEY Care Teams Superintendent Water And Sewer Systems Relationship Specialty Start Date End Date Jamie Wynn, [address] [place] [id number] PCP - General Family Medicine 08/08/16 documented as of this encounter
--- OUTSIDE RECORDS SUMMARY | 2023-07-05 14:56 | External Medical Summary | Summary of Care ---
Author Name Unknown Organization [facility] Address [address] [facility] [address] Phone [phone] Care Team Providers Care Data Management Name Role Phone Jamie Wynn DO Primary Care Provider [phone] Reason for Visit * Reason Onset Date Comments COVID-19 Screening 03/11/2023 Encounter Details Date Type Department Care Team Description 03/11/2023 Telephone COVID19 Screening [facility] DEPT CLOSED 08/10/[address] [place] [id number], Automated Provider COVID-19 Screening Allergies No known active allergiesdocumented as of this encounter (statuses as of 03/11/2023) Medications Medication Sig Dispensed Refills Start Date End Date Status Vitamin D 25 MCG (1000 UT) Oral Tablet Take by mouth . 0 Acti ve documented as of this encounter (statuses as of 03/11/2023) Active Problems Problem Noted Date Cataract 08/08/2016 [...] as of this encounter (statuses as of 03/11/2023) Resolved Problems Problem Noted Date Resolved Date Encounter for examination fo r normal comparison and control in clinical research program 11/21/2017 06/01/2020 Overview: DO NOT DELETE [facility] DETECT Study: Project # [id number], Call Center Trainer: Khadar Dodd, PhD. SUMMARY: Goal: Establish test [...] contact study staff at ; after hours Call Center Trainer via the [facility] triple drum operator . Please contact study team before resolving/deleting from patients problem list. Study phone number: [phone]. Diagnosis changed due to Research Module. Go to Snapshot for study details. Encounter for examination fo r normal comparison and control in clinical research program 11/21/2017 06/30/2022 Overview: DO NOT DELETE - [facility] DETECT Study: Project # [id number], Call Center Trainer: Mykel Gill, MS, MPH. SUMMARY: Goal: Establish [...] contact study staff at ; after hours Call Center Trainer via the [facility] triple drum operator . - Please contact study team before resolving/deleting from patients problem list. Study phone number: [phone]. Diagnosis changed due to Research Module. Go to Snapshot for study details. documented as of this encounter (statuses as of 03/11/2023) Immunizations Name Administration Dates Next Due Covid-19 [...] encounter Miscellaneous Notes * Telephone Encounter - Covid Results [facility] - 03/11/2023 10:57 PM EDT Outreach Attempts IVR Call Mar 11 2023 9:02AM Voicemail - Voicemail IVR Message: Marry Britton. This is [employer] calling to let you know you have test results available. You can access this result in your [employer]airy account under 'Test & Lab Results'. If you are not enrolledin [employer], you can create an account by going to [email or web address]. You can also call back at [phone] or we will attempt to reach you later tomorrow. documented in this encounter Plan of Treatment Upcoming Encounters Date Type Specialty Care Team Description 08/31/2023 Office Visit Family Medicine [place], DAVID Cortez [address] [place] [address] Health Maintenance Due Date Last Done Comments [...] Documents on File Type Date Recorded Patient Urology Physician Assistant Expl anation Advance Directives and Living Will 06/24/2022 ADVANCE DIRECTIVE / LIVING WILL Power of Circular Tank Cooper 06/24/2022 POWER OF A TTORNEY Care Teams Data Management Relationship Specialty Start Date End Date Jamie Wynn, [address] [place] [phone] PCP - General Family Medicine 08/08/16 documented as of this encounter
--- OUTSIDE RECORDS SUMMARY | 2023-07-05 14:56 | External Medical Summary | Summary of Care ---
Author Name Unknown Organization [facility] Address [address] [place] [address] Phone [phone] Care Team Providers Care Ground Water Pump Installer Name Role Phone Jamie Wynn DO Primary Care Provider [phone] Reason for Referral * Evaluate & Treat - Unlimited Visits (Within 3 days (urgent)) - Authorized Specialty Diagnoses / Procedures Referred By Contac t Referred To Contact Pulmonary Diseases / Pulmonary Diagnoses Anemia, unspecified type Abnormal CT of the chest Mass of lung Anni Carr CRNP [address] [place] [address] Referral ID Status Reason Start Date Expiration Date Visits Requested Visits Authorized [id number] Authorized Specialty Services Required 03/12/2023 999 999 [...] Mass of lung Anni Carr CRNP [address] [place] [address] Referral ID Status Reason Start Date Expiration Date Visits Requested Visits Authorized [id number] Authorized Specialty Services Required 03/12/2023 999 999 [...] Anemia, unspecified type Anni Carr CRNP [address] [place] [address] Referral ID Status Reason Start Date Expiration Date Visits Requested Visits Authorized [id number] Authorized Ancillary Services Required 03/12/2023 999 999 [...] Anemia, unspecified type Anni Carr CRNP [address] [place] [address] Referral ID Status Reason Start Date Expiration Date Visits Requested Visits Authorized [id number] Authorized Ancillary Services Required 03/12/2023 999 999 Question Answer Referral Priority Within 10 days (routine) Comments ALERT: Do not order for pediatric patients (18 years or younger). Cancel off screen and order PEDS GASTROENTEROLOGY CONSULT (Type: 1 visit only-Evaluate and Treat) The following Pt. Instructions are available: - Gastro Colonoscopy Prep Instructions [09159] - Gastro Colonoscopy Prep Instructions (Nepali Version) [56411] Go to the Pt. Instructions section within the Visit Navigator to access. Colonoscopy ASGE Guidelines: Iron deficiency anemia ADDITIONAL INFORMATION 1. Is the patient on Coumadin? No 2. Is the patient on Pradaxa? No Reason for Visit * Reason Onset Date Comments Test Results 03/12/2023 Unexpected or In determinate Result Encounter Details Date Type Department Care Team Description 03/12/2023 Telephone Laboratory, [place] [address] [place] [address] Anni Carr CRNP [address] [place] [address] Test Results (Unexpected or Indeterminate ... Allergies [...] [facility] [place] DET[facility] Study: Project # [id number], Refrigerating Engineer Head: Khadar Dodd, PhD. SUMMARY: Goal: Establish test [...] contact study staff at ; after hours Refrigerating Engineer Head via the [facility] tool room lathe operator . Please contact study team before resolving/deleting from patients problem list. Study phone number: [phone]. Diagnosis changed due to Research Module. Go to Snapshot for study details. Encounter for examination fo r normal comparison and control in clinical research program 11/21/2017 06/30/2022 Overview: DO NOT DELETE - [facility] DETECT Study: Project # [id number], Refrigerating Engineer Head: Mykel Gill, MS, MPH. SUMMARY: Goal: Establish [...] contact study staff at ; after hours Refrigerating Engineer Head via the [facility] hospital tool room lathe operator . - Please contact study team before resolving/deleting from patients problem list. Study phone number: [phone]. Diagnosis changed due to Research Module. Go to [employer] for study details. documented as of this [...] encounter Miscellaneous Notes * Telephone Encounter - Ariana Hartman, KRISTA - 03/13/2023 11:29 AM EDT Patient's daughter calling upset that patient has not yet been contacted regarding test results. She was advised that multiple attempts were made to contact pt. She verified that the patient's landline listed as primary phone number is correct and states that patient has had that phone with her. Daughter [facility] [place] [facility] test results and would like patient's [...] and schedule appointment. * Telephone Encounter - Jamie Wynn DO [...] until seen by Heme/Onc Hematology/Oncology referral placed. [facility] would only let me put in [...] unexpected or indeterminate finding on Reba Delaney ([id number]) andasks that you review the following report. IMPRESSION IMPRESSION Increased focal opacity at the left lung apex, indeterminate. CT chest is recommended for further evaluation. Study Type: XR CHEST 2 VIEWS Date of Study: 03/11/2023 Please respond to this encounter to acknowledge receipt of this message and take responsibility to ensure this report is reviewed. Thank you, KRISTA Lozoya Client Service [facility] documented in this encounter Plan of Treatment Upcoming Encounters Date Type Specialty Care Team Description 08/31/2023 Office Visit Family Medicine [place], DAVID Cortez [address] [place] [address] Scheduled Orders Name Type Priority Associated Diagnoses [...] Documents on File Type Date Recorded Patient Prepress Proofer Expl anation Advance Directives and Living Will 06/24/2022 ADVANCE DIRECTIVE / LIVING WILL Power of Sheet Finisher 06/24/2022 POWER OF A TTORNEY Care Teams Ground Water Pump Installer Relationship Specialty Start Date End Date Jamie Wynn, [address] [place] [address] PCP - General Family Medicine 08/08/16 documented as of this encounter
--- OUTSIDE RECORDS SUMMARY | 2023-07-05 14:56 | External Medical Summary | Summary of Care ---
Author Name Unknown Organization [facility] Address [address] [place] [address] Phone [phone] Care Team Providers Care Brush Maker Machine Name Role Phone Jamie Wynn DO Primary Care Provider [phone] Reason for Referral * Evaluate & Treat - Unlimited Visits (Within 3 days (urgent)) - Authorized Specialty Diagnoses / Procedures Referred By Contac t Referred To Contact Pulmonary Diseases / Pulmonary Diagnoses Anemia, unspecified type Abnormal CT of the chest Mass of lung Anni Carr CRNP [address] [place] [address] Referral ID Status Reason Start Date Expiration Date Visits Requested Visits Authorized [id number] Authorized Specialty Services Required 03/12/2023 999 999 [...] Mass of lung Anni Carr CRNP [address] [place] [address] Referral ID Status Reason Start Date Expiration Date Visits Requested Visits Authorized [id number] Authorized Specialty Services Required 03/12/2023 999 999 [...] Anemia, unspecified type Anni Carr CRNP [address] [place] [address] Referral ID Status Reason Start Date Expiration Date Visits Requested Visits Authorized [id number] Authorized Ancillary Services Required 03/12/2023 999 999 [...] Anemia, unspecified type Anni Carr CRNP [address] [place] [address] Referral ID Status Reason Start Date Expiration Date Visits Requested Visits Authorized [id number] Authorized Ancillary Services Required 03/12/2023 999 999 Question Answer Referral Priority Within 10 days (routine) Comments ALERT: Do not order for pediatric patients (18 years or younger). Cancel off screen and order PEDS GASTROENTEROLOGY CONSULT (Type: 1 visit only-Evaluate and Treat) The following Pt. Instructions are available: - Gastro Colonoscopy Prep Instructions [[id number]] - Gastro Colonoscopy Prep Instructions (Faroese Version) [[id number]] Go to the Pt. Instructions section within the Visit Navigator to access. Colonoscopy ASGE Guidelines: Iron deficiency anemia ADDITIONAL INFORMATION 1. Is the patient on Coumadin? No 2. Is the patient on Pradaxa? No Reason for Visit * Reason Onset Date Comments Test Results 03/12/2023 Unexpected or In determinate Result Encounter Details Date Type Department Care Team Description 03/12/2023 Telephone Laboratory, [place] [address] [place] [address] Anni Carr CRNP [address] [place] [address] Test Results (Unexpected or Indeterminate ... Allergies [...] The [facility] DETECT Study: Project # [id number], Paint Technician: Khadar Dodd, PhD. SUMMARY: Goal: Establish [...] contact study staff at ; after hours Paint Technician via the [facility] cathead operator . Please contact study team before resolving/deleting from patients problem list. Study phone number: [phone]. Diagnosis changed due to Research Module. Go to Snapshot for study details. Encounter for examination fo r normal comparison and control in clinical research program 11/21/2017 06/30/2022 Overview: DO NOT DELETE - [facility] DETECT Study: Project # [id number], Paint Technician: Mykel Gill, MS, MPH. SUMMARY: Goal: [...] contact study staff at ; after hours Paint Technician via the [facility] cathead operator . - Please contact study team before resolving/deleting from patients problem list. Study phone number: [phone]. Diagnosis changed due to Research Module. Go to [employer] for study details. documented as of this [...] until seen by Heme/Onc Hematology/Oncology referral placed. [facility] would only let me put in [...] unexpected or indeterminate finding on Reba Delaney ([id number]) andasks that you review the following report. IMPRESSION IMPRESSION Increased focal opacity at the left lung apex, indeterminate. CT chest is recommended for further evaluation. Study Type: XR CHEST 2 VIEWS Date of Study: 03/11/2023 Please respond to this encounter to acknowledge receipt of this message and take responsibility to ensure this report is reviewed. Thank you, KRISTA Lozoya Client Service Rep [facility] documented in this encounter Plan of Treatment Upcoming Encounters Date Type Specialty Care Team Description 08/31/2023 Office Visit Family Medicine [place], DAVID Cortez [address] [place] [address] Scheduled Orders Name Type Priority Associated Diagnoses [...] Documents on File Type Date Recorded Patient Box Order Person Expl anation Advance Directives and Living Will 06/24/2022 ADVANCE DIRECTIVE / LIVING WILL Power of Share Holder 06/24/2022 POWER OF A TTORNEY Care Teams Brush Maker Machine Relationship Specialty Start Date End Date Jamie Wynn DO [address] [place] [address] PCP - General Family Medicine 08/08/16 documented as of this encounter
--- OUTSIDE RECORDS SUMMARY | 2023-07-05 14:56 | External Medical Summary | Summary of Care ---
Author Name Unknown Organization [facility] Address [address] [place] [address] Phone [phone] Care Team Providers Care Vocational School Teacher Name Role Phone Jamie Wynn DO Primary Care Provider [phone] Encounter Details Date Type Department Care Team Description 03/11/2023 Hospital Encounter Radiology, [facility] [address] [place] [address] Arrived Allergies No known active allergiesdocumented as [...] [facility] DETECT Study: Project # [id number], Plush Cutter: Khadar Dodd, PhD. SUMMARY: Goal: Establish test [...] contact study staff at ; after hours Plush Cutter via the [facility] frothing machine operator . Please contact study team before resolving/deleting from patients problem list. Study phone number: [phone]. Diagnosis changed due to Research Module. Go to Snapshot for study details. Encounter for examination fo r normal comparison and control in clinical research program 11/21/2017 06/30/2022 Overview: DO NOT DELETE - [facility] DETECT Study: Project # [id number], Plush Cutter: Mykel Gill, MS, MPH. SUMMARY: Goal: Establish [...] contact study staff at ; after hours Plush Cutter via the [facility] frothing machine operator . - Please contact study team before resolving/deleting from patients problem list. Study phone number: [phone]. Diagnosis changed due to Research Module. Go [...] Encounters Date Type Specialty Care Team Description 03/12/2023 Appointment Radiology 08/31/2023 Office Visit Family Medicine [place], DAVID Cortez [address] [place] [address] Health Maintenance Due Date Last Done Comments [...] Procedure Name Priority Date/Time Associated Diagnosis Comments XR CHEST 2 VIEWS Routine 03/11/2023 8:57 AM EDT Tobacco use documented in this encounter Results * XR CHEST 2 VIEWS (03/11/2023 8:57 AM EDT) Anatomical Region Laterality Modality Chest Computed Radiogr aphy 03/12/2023 6:46 AM EDT Impressions 03/12/2023 6:43 AM EDT IMPRESSION Increased focal opacity at the left lung apex, indeterminate. CT chest is recommended for further evaluation. This case was sent to the MUSIC THEORY TEACHER/HEIDY (radiology court collections officer) at time of dictation. Narrative 03/12/2023 6:43 AM EDT EXAM XR CHEST 2 VIEWS - 03/11/2023 8:57 am HISTORY weight loss, tobacco use TECHNIQUE Frontal and lateral views of the chest. COMPARISON Chest radiograph 08/27/2008. FINDINGS Normal heart size. Emphysema. Increased focal opacity at the left lung apex, indeterminate. No pleural effusion or pneumothorax. No acute osseous abnormality. Procedure Note Donna Desir MD - 03/12/2023 EXAM XR CHEST 2 VIEWS - 03/11/2023 8:57 am HISTORY weight loss, tobacco use TECHNIQUE Frontal and lateral views of the chest. COMPARISON Chest radiograph 08/27/2008. FINDINGS Normal heart size. Emphysema. Increased focal opacity at the left lung apex, indeterminate.No pleural effusion or pneumothorax. No acute osseous abnormality. IMPRESSION IMPRESSION Increased focal opacity at the left lung apex, indeterminate. CT chest isrecommended for further evaluation. This case was sent to the MUSIC THEORY TEACHER/HEIDY (radiology court collections officer) at time ofdictation. Anni HERNANDEZ [facility] (RAD [facility]) documented in this encounter Advance Directives Documents on File Type Date Recorded Patient Administrative Services Coordinator Expl anation Advance Directives and Living Will 06/24/2022 ADVANCE DIRECTIVE / LIVING WILL Power of Supervising Airplane Pilot 06/24/2022 POWER OF A TTORNEY Care Teams Vocational School Teacher Relationship Specialty Start Date End Date Jamie Wynn, [address] [place] [address] PCP - General Family Medicine 08/08/16 documented as of this encounter
--- OUTSIDE RECORDS SUMMARY | 2023-07-05 14:56 | External Medical Summary | Summary of Care ---
Author Name Unknown Organization [facility] Address [address] [place] [address] Phone [phone] Care Team Providers Care Airport Skilled Maintenance Supervisor Name Role Phone Jamie Wynn DO Primary Care Provider [phone] Reason for Referral * Evaluate & Treat - Unlimited Visits (Within 3 days (urgent)) - Authorized Specialty Diagnoses / Procedures Referred By Contac t Referred To Contact Pulmonary Diseases / Pulmonary Diagnoses Anemia, unspecified type Abnormal CT of the chest Mass of lung Anni Carr CRNP [address] [place] [address] Referral ID Status Reason Start Date Expiration Date Visits Requested Visits Authorized [id number] Authorized Specialty Services Required 03/12/2023 999 999 [...] Mass of lung Anni Carr CRNP [address] [place] [address] Referral ID Status Reason Start Date Expiration Date Visits Requested Visits Authorized [id number] Authorized Specialty Services Required 03/12/2023 999 999 [...] Anemia, unspecified type Anni Carr CRNP [address] [place] [address] Referral ID Status Reason Start Date Expiration Date Visits Requested Visits Authorized [id number] Authorized Ancillary Services Required 03/12/2023 999 999 [...] Anemia, unspecified type Anni Carr CRNP [address] [place] [address] Referral ID Status Reason Start Date Expiration Date Visits Requested Visits Authorized [id number] Authorized Ancillary Services Required 03/12/2023 999 999 Question Answer Referral Priority Within 10 days (routine) Comments ALERT: Do not order for pediatric patients (18 years or younger). Cancel off screen and order PEDS GASTROENTEROLOGY CONSULT (Type: 1 visit only-Evaluate and Treat) The following Pt. Instructions are available: - Gastro Colonoscopy Prep Instructions [36645] - Gastro Colonoscopy Prep Instructions (Vietnamese Version) [[id number]] Go to the Pt. Instructions section within the Visit Navigator to access. Colonoscopy ASGE Guidelines: Iron deficiency anemia ADDITIONAL INFORMATION 1. Is the patient on Coumadin? No 2. Is the patient on Pradaxa? No Reason for Visit * Reason Onset Date Comments Test Results 03/12/2023 Unexpected or In determinate Result Encounter Details Date Type Department Care Team Description 03/12/2023 Telephone Laboratory, [place] [address] [place] [address] Anni Carr CRNP [address] [place] [address] Test Results (Unexpected or Indeterminate ... Allergies [...] DELETE [facility] DETECT Study: Project # [id number], Dixonac Operator: Khadar Dodd, PhD. SUMMARY: Goal: Establish [...] contact study staff at ; after hours Dixonac Operator via the [facility] inverted block operator . Please contact study team before resolving/deleting from patients problem list. Study phone number: [phone]. Diagnosis changed due to Research Module. Go to Snapshot for study details. Encounter for examination fo r normal comparison and control in clinical research program 11/21/2017 06/30/2022 Overview: DO NOT DELETE - [facility] DETECT Study: Project # [id number], Dixonac Operator: Mykel Gill, MS, MPH. SUMMARY: Goal: [...] contact study staff at ; after hours Dixonac Operator via the [facility] hospital inverted block operator . - Please contact study team before resolving/deleting from patients problem list. Study phone number: [phone]. Diagnosis changed due to Research Module. Go to Knodium for study details. documented as of this [...] with her. Daughter has [facility] results and would like patient's [...] until seen by Heme/Onc Hematology/Oncology referral placed. [facility] would only let me put [...] unexpected or indeterminate finding on Reba Delaney ([id number]) andasks that you review the following report. IMPRESSION IMPRESSION Increased focal opacity at the left lung apex, indeterminate. CT chest is recommended for further evaluation. Study Type: XR CHEST 2 VIEWS Date of Study: 03/11/2023 Please respond to this encounter to acknowledge receipt of this message and take responsibility to ensure this report is reviewed. Thank you, KRISTA Lozoya Client Service [facility] documented in this encounter Plan of Treatment Upcoming Encounters Date Type Specialty Care Team Description 08/31/2023 Office Visit Family Medicine [place], DAVID Cortez [address] [place] [address] Scheduled Orders Name Type Priority Associated Diagnoses [...] Documents on File Type Date Recorded Patient Sap Technical Architect Expl anation Advance Directives and Living Will 06/24/2022 ADVANCE DIRECTIVE / LIVING WILL Power of Yard Conductor 06/24/2022 POWER OF A TTORNEY Care Teams Airport Skilled Maintenance Supervisor Relationship Specialty Start Date End Date Jamie Wynn, [address] [place] [address] PCP - General Family Medicine 08/08/16 documented as of this encounter
--- OUTSIDE RECORDS SUMMARY | 2023-07-05 14:56 | External Medical Summary | Summary of Care ---
Author Name Unknown Organization [facility] Address [address] [place] [address] Phone [phone] Care Team Providers Care Traffic Signal Repairer Name Role Phone Mayco Wynn DO Primary Care Provider [phone] Reason for Referral * Evaluate & Treat - Unlimited Visits (Within 3 days (urgent)) - Authorized Specialty Diagnoses / Procedures Referred By Contact Referred To Contact Thoracic and Cardiac Surgery / Cardiothoracic Surgery Diagnoses Abnormal CT of the chest Mass of lung Mayco Wynn DO [address] [place] [address] Referral ID Status Reason Start Date Expiration Date Visits Requested Visits Authorized [id number] Authorized Specialty Services Required 03/13/2023 999 999 [...] Mass of lung Anni Carr CRNP [address] [place] [address] Referral ID Status Reason Start Date Expiration Date Visits Requested Visits Authorized [id number] Authorized Specialty Services Required 03/12/2023 999 999 [...] chest Mass of lung Anni Carr CRNP [address] [place] [address] Referral ID Status Reason Start Date Expiration Date Visits Requested Visits Authorized [id number] Authorized Specialty Services Required 03/12/2023 999 999 [...] Anemia, unspecified type Anni Carr CRNP [address] [place] [address] Referral ID Status Reason Start Date Expiration Date Visits Requested Visits Authorized [id number] Authorized Ancillary Services Required 03/12/2023 999 999 Question Answer Referral Priority Within 10 days (routine) Comments Upper Endoscopy ASGE Guidelines other Anemia, GERD, weight loss ADDITIONAL INFORMATION 1. Is the patient on Coumadin? No 2. Is the patient on Pradaxa? No * Ancillary Services (Within 10 days (routine)) - Authorized Specialty Diagnoses / Procedures [facility] To Contact Gastroenterology Diagnoses Loss of weight Gastroesophageal reflux disease, unspecified whether esophagitis present Anemia, unspecified type Anni Carr CRNP [address] [place] [address] Referral ID Status Reason Start Date Expiration Date Visits Requested Visits Authorized [id number] Authorized Ancillary Services Required 03/12/2023 999 999 Question Answer Referral Priority Within 10 days (routine) Comments ALERT: Do not order for pediatric patients (18 years or younger). Cancel off screen and order PEDS GASTROENTEROLOGY CONSULT (Type: 1 visit only-Evaluate and Treat) The following Pt. Instructions are available: - Gastro Colonoscopy Prep Instructions [[id number]] - Gastro Colonoscopy Prep Instructions (Bulgarian Version) [[id number]] Go to the Pt. Instructions section within the Visit Navigator to access. Colonoscopy ASGE Guidelines: Iron deficiency anemia ADDITIONAL INFORMATION 1. Is the patient on Coumadin? No 2. Is the patient on Pradaxa? No Reason for Visit * Reason Onset Date Comments Test Results 03/12/2023 Unexpected or In determinate Result Encounter Details Date Type Department Care Team Description 03/12/2023 Telephone Laboratory, [place] [address] [place] [address] Anni Carr CRNP [address] [place] [address] Test Results (Unexpected or Indeterminate ... Allergies [...] program 11/21/2017 06/01/2020 Overview: DO NOT DELETE [facility] DETECT Study: Project # [id number], Dolly Pusher: Khadar Dodd, PhD. SUMMARY: Goal: Establish test [...] contact study staff at ; after hours Dolly Pusher via the [facility] hospital reinforcing steel machine operator . Please contact study team before resolving/deleting from patients problem list. Study phone number: [phone]. Diagnosis changed due to Research Module. Go to Snapshot for study details. Encounter for examination fo r normal comparison and control in clinical research program 11/21/2017 06/30/2022 Overview: DO NOT DELETE - [facility] DETECT Study: Project # [id number], Dolly Pusher: Mykel Gill, MS, MPH. SUMMARY: Goal: Establish [...] contact study staff at ; after hours Dolly Pusher via the [facility] hospital reinforcing steel machine operator . - Please contact study team before resolving/deleting from patients problem list. Study phone number: [phone]. Diagnosis changed due to Research Module. Go [...] encounter Miscellaneous Notes * Addendum Note - Mayco Wynn DO [...] for new left upper lobe lung lesion, jaren Carrero * Telephone Encounter - KRISTA Valadez - [...] with her. Daughter has reviewed letter in [facility] regarding test results and would like patient's [...] until seen by Heme/Onc Hematology/Oncology referral placed. [facility] would only let me put in the [...] unexpected or indeterminate finding on Reba Delaney ([id number]) andasks that you review the following report. IMPRESSION IMPRESSION Increased focal opacity at the left lung apex, indeterminate. CT chest is recommended for further evaluation. Study Type: XR CHEST 2 VIEWS Date of Study: 03/11/2023 Please respond to this encounter to acknowledge receipt of this message and take responsibility to ensure this report is reviewed. Thank you, KRISTA Lozoya Client Service [facility] documented in this encounter Plan of Treatment Upcoming Encounters Date Type Specialty Care Team Description 08/31/2023 Office Visit Family Medicine [place], DAVID Cortez [address] [place] [address] Scheduled Orders Name Type Priority Associated Diagnoses [...] Documents on File Type Date Recorded Patient Factory Machine Computer Operator Expl anation Advance Directives and Living Will 06/24/2022 ADVANCE DIRECTIVE / LIVING WILL Power of Garbage Man 06/24/2022 POWER OF A TTORNEY Care Teams Traffic Signal Repairer Relationship Specialty Start Date End Date Mayco Wynn, [address] [place] [address] PCP - General Family Medicine 08/08/16 documented as of this encounter
--- OUTSIDE RECORDS SUMMARY | 2023-07-05 14:56 | External Medical Summary | Summary of Care ---
Author Name Unknown Organization [facility] Address [address] [place] [address] Phone [phone] Care Team Providers Care Client Technical Professional Name Role Phone Jamie Wynn DO Primary Care Provider [phone] Reason for Referral * Evaluate & Treat - Unlimited Visits (Within 3 days (urgent)) - Authorized Specialty Diagnoses / Procedures Referred By Contac t Referred To Contact Pulmonary Diseases / Pulmonary Diagnoses Anemia, unspecified type Abnormal CT of the chest Mass of lung Anni Carr CRNP [address] [place] [address] Referral ID Status Reason Start Date Expiration Date Visits Requested Visits Authorized [id number] Authorized Specialty Services Required 03/12/2023 999 999 [...] Mass of lung Anni Carr CRNP [address] [place] [address] Referral ID Status Reason Start Date Expiration Date Visits Requested Visits Authorized [id number] Authorized Specialty Services Required 03/12/2023 999 999 [...] Anemia, unspecified type Anni Carr CRNP [address] [place] [address] Referral ID Status Reason Start Date Expiration Date Visits Requested Visits Authorized [id number] Authorized Ancillary Services Required 03/12/2023 999 999 [...] Anemia, unspecified type Anni Carr CRNP [address] [place] [address] Referral ID Status Reason Start Date Expiration Date Visits Requested Visits Authorized [id number] Authorized Ancillary Services Required 03/12/2023 999 999 Question Answer Referral Priority Within 10 days (routine) Comments ALERT: Do not order for pediatric patients (18 years or younger). Cancel off screen and order PEDS GASTROENTEROLOGY CONSULT (Type: 1 visit only-Evaluate and Treat) The following Pt. Instructions are available: - Gastro Colonoscopy Prep Instructions [[id number]] - Gastro Colonoscopy Prep Instructions (Amharic Version) [[id number]] Go to the Pt. Instructions section within the Visit Navigator to access. Colonoscopy ASGE Guidelines: Iron deficiency anemia ADDITIONAL INFORMATION 1. Is the patient on Coumadin? No 2. Is the patient on Pradaxa? No Reason for Visit * Reason Onset Date Comments Test Results 03/12/2023 Unexpected or In determinate Result Encounter Details Date Type Department Care Team Description 03/12/2023 Telephone Laboratory, [place] [address] [place] [address] Anni Carr CRNP [address] [place] [address] Test Results (Unexpected or Indeterminate ... Allergies [...] NOT DELETE [facility] DETECT Study: Project # [id number], Curator Of Photography And Prints: Khadar Dodd, PhD. SUMMARY: Goal: Establish test [...] contact study staff at ; after hours Curator Of Photography And Prints via the [facility] crinkling machine operator . Please contact study team before resolving/deleting from patients problem list. Study phone number: [phone]. Diagnosis changed due to Research Module. Go to Snapshot for study details. Encounter for examination fo r normal comparison and control in clinical research program 11/21/2017 06/30/2022 Overview: DO NOT DELETE - [facility] DETECT Study: Project # [id number], Curator Of Photography And Prints: Mykel Gill, MS, MPH. SUMMARY: Goal: Establish [...] contact study staff at ; after hours Curator Of Photography And Prints via the [facility] crinkling machine operator . - Please contact study team before resolving/deleting from patients problem list. Study phone number: [phone]. Diagnosis changed due to Research Module. Go to [employer]Piston for study details. documented as of this [...] with her. Daughter has [facility] test results and would like patient's [...] until seen by Heme/Onc Hematology/Oncology referral placed. [facility] would only let me put in [...] unexpected or indeterminate finding on Reba Delaney ([id number]) andasks that you review the following report. IMPRESSION IMPRESSION Increased focal opacity at the left lung apex, indeterminate. CT chest is recommended for further evaluation. Study Type: XR CHEST 2 VIEWS Date of Study: 03/11/2023 Please respond to this encounter to acknowledge receipt of this message and take responsibility to ensure this report is reviewed. Thank you, KRISTA Lozoya Client Service [facility] documented in this encounter Plan of Treatment Upcoming Encounters Date Type Specialty Care Team Description 08/31/2023 Office Visit Family Medicine [place], DAVID Cortez [address] [place] [address] Scheduled Orders Name Type Priority Associated Diagnoses [...] on File Type Date Recorded Patient Manager Packaging Expl anation Advance Directives and Living Will 06/24/2022 ADVANCE DIRECTIVE / LIVING WILL Power of Amusement Park Entertainer 06/24/2022 POWER OF A TTORNEY Care Teams Client Technical Professional Relationship Specialty Start Date End Date Jamie Wynn, [address] [place] [address] PCP - General Family Medicine 08/08/16 documented as of this encounter
--- OUTSIDE RECORDS SUMMARY | 2023-07-05 14:57 | External Medical Summary ---
Author Name Unknown Address Unknown Organization K1H:LABORATORY [facility] - [address] [place] [address] Laboratory Report Ordering Provider Test Date Status BRINDA MADRID 03/11/2023 09:05:37 Final Observation Date Value Abnormality Reference (Units ) Status BUN 03/11/2023 09:05:37 12 6-20 (mg/dL) Final Creatinine 03/11/2023 09:05:37 0.9 0.5-1.0 (mg/dL) Final Glomerular filtration rate/1.73 sq M.predicted [Volume Rate/Area] in Serum, Plasma or Blood by Creatinine-based formula (CKD-EPI) 03/11/2023 09:05:37 65 >=60 (mL/min) Final Performing Location LABORATORY [facility] - [address] [facility] [address]
--- OUTSIDE RECORDS SUMMARY | 2023-07-05 14:57 | External Medical Summary ---
Author Name Unknown Address Unknown Organization K01:LABORATORY [facility] [address] [place] [address] Laboratory Report Ordering Provider Test Date Status BRINDA MADRID 03/11/2023 09:05:37 Final Observation Date Value Abnormality Reference (Units ) Status Triglyceride 03/11/2023 09:05:37 77 <=174 ( mg/dL) Final Performing Location LABORATORY [facility] - [address] [place] [address]
--- OUTSIDE RECORDS SUMMARY | 2023-07-05 14:57 | External Medical Summary ---
Author Name Unknown Address Unknown Organization K1:LABORATORY [facility] - [address] [facility] [address] [address] Laboratory Report Ordering Provider Test Date Status BRINDA MADRID 03/11/2023 09:05:37 Final Observation Date Value Abnormality Reference (Units ) Status SYNC LEUKOCYTES IN BLOOD BY AUTOMATED COUNT 03/11/2023 09:05:37 11.01 Above high normal 4.00-10.80 (K/uL) Final Segs 03/11/2023 09:05:37 73.5 40.0-75.0 (%) Final Lymphs % 03/11/2023 09:05:37 13.6 Below low normal 18.0-42.0 (%) Final Monos 03/11/2023 09:05:37 10.8 1.0-11.0 (%) Final Eosinophils 03/11/2023 09:05:37 1.5 0.0-6.0 (%) Final Basos 03/11/2023 09:05:37 0.3 0.0-2.0 (%) Final Immature Granulocyte, Percent 03/11/2023 09:05:37 0.3 0.0-2.0 (%) Final Absolute Segs 03/11/2023 09:05:37 8.10 Above high normal 1.80-7.70 (K/uL) Final Lymphs, absolute 03/11/2023 09:05:37 1.50 1.00-4.80 (K/ul) Final Monos, Abs 03/11/2023 09:05:37 1.19 Above high normal 0.00-1.10 (K/uL) Final Eos, Abs 03/11/2023 09:05:37 0.16 0.00-0.70 (K/uL) Final Basos, Abs 03/11/2023 09:05:37 0.03 0.00-0.20 (K/uL) Final Immature Granulocytes, Number 03/11/2023 09:05:37 0.03 0.00-0.20 (K/uL) Final Performing Location LABORATORY [facility] - [address] [place] [address]
--- OUTSIDE RECORDS SUMMARY | 2023-07-05 14:57 | External Medical Summary ---
Author Name Unknown Address Unknown Organization K1H:LABORATORY [facility] - [address] [facility] [address] Laboratory Report Ordering Provider Test Date Status BRINDA MADRID 03/11/2023 09:05:37 Final Observation Date Value Abnormality Reference (Units ) Status WBC, Total 03/11/2023 09:05:37 11.01 Above high normal 4.00-10.80 (K/uL) Final RBC 03/11/2023 09:05:37 4.00 3.85-5.15 (M/uL) Final Hemoglobin 03/11/2023 09:05:37 10.7 Below low normal 12.0-15.3 (g/dL) Final HCT 03/11/2023 09:05:37 32.7 Below low normal 36.0-45.2 (%) Final MCV 03/11/2023 09:05:37 81.8 81.5-97.5 (fL) Final MCH 03/11/2023 09:05:37 26.8 27.0-34.0 (pg) Final MCHC 03/11/2023 09:05:37 32.7 32.0-36.0 (g/dL) Final RDW 03/11/2023 09:05:37 13.0 11.5-15.5 (%) Final Platelets 03/11/2023 09:05:37 463 Above high normal 140-400 (K/uL) Final MPV 03/11/2023 09:05:37 9.0 6.6-11.1 (fL) Final Nucleated erythrocytes/100 leukocytes [Ratio] in Blood by Automated count 03/11/2023 09:05:37 0 <=0 (/100 WBCs) Final Performing Location LABORATORY [facility] - [address] [facility] [address]
--- OUTSIDE RECORDS SUMMARY | 2023-07-05 14:57 | External Medical Summary | Summary of Care ---
Author Name Unknown Organization [facility] Address [address] [place] [address] Phone [phone] Care Team Providers Care Claim Administrator Name Role Phone Jamie Wynn DO Primary Care Provider [phone] Reason for Visit * Reason Comments Acute Encounter Details Date Type Department Care Team Description 03/09/2023 Office Visit [facility], [place] [address] [facility] [place] [address] Anni Carr CRNP [address] [place] [address] Flu-like symptoms*; Tobacco use; Weight loss; HTN, goal below 140/90; Vitamin D deficiency; Dyslipidemia; Generalized weakness Allergies No known active allergiesdocumented as of this encounter (statuses as of 03/11/2023) Medications Medication Sig Dispensed Refills Start Date End Date Status Vitamin D 25 MCG (1000 UT) Oral Tablet Take by mouth . 0 Active Zoster Vac Recomb Adjuvanted 50 MCG/0.5ML Intramuscular Suspension Reconstituted (Shingrix)Indicatio ns:Need for vaccination for zoster INJECT 0.5 ML INTO A LARGE MUSCLE NOW AND REPEAT DOSE IN 60 TO 180 DAYS 1 mL 0 08/25/2022 3 Discontinued oxyCODONE HCl 5 MG Oral Tablet (Oxy IR) TAKE 1 TABLET BY MOUTH EVERY 4 HOURS NEEDED FOR MODERATE OR SEVERE PAIN. 5 Tablet 0 11/17/2022 3 Discontinued documented as of this encounter [...] [facility] DETECT Study: Project # [id number], Ethernet Network Architect: Khadar Dodd, PhD. SUMMARY: Goal: Establish test [...] contact study staff at ; after hours Ethernet Network Architect via the [facility] hospital inserting operator . Please contact study team before resolving/deleting from patients problem list. Study phone number: [phone]. Diagnosis changed due to Research Module. Go to Snapshot for study details. Encounter for examination fo r normal comparison and control in clinical research program 11/21/2017 06/30/2022 Overview: DO NOT DELETE - [facility] DETECT Study: Project # [id number], Ethernet Network Architect: Mykel Gill, MS, MPH. SUMMARY: Goal: Establish [...] contact study staff at ; after hours Ethernet Network Architect via the [facility] hospital inserting operator . - Please contact study team before resolving/deleting from patients problem list. Study phone number: [phone]. Diagnosis changed due to Research Module. Go [...] Day Cigarettes 0.5 30 Smokeless Tobacco: Never Tobacco Cessation:Ready to Q uit: Not Asked; Counseling Given: Not Answered Alcohol Use Standard Drinks/Week [...] Sign Reading Time Taken Comments Blood Pressure 130/64 03/09/2023 1:40 PM EDT Pulse 90 03/09/2023 1:40 PM EDT Temperature 37.8 C (100 F) 03/09/2023 1:40 PM EDT Respiratory Rate 18 03/09/2023 1:40 PM EDT Oxygen Saturation 99% 03/09/2023 1:40 PM EDT Inhaled Oxygen Concentration - - Weight 48.1 kg (106 lb) 03/09/2023 1:40 PM EDT Height - - Body Mass Index 18.78 11/17/2022 6:00 AM EST documented in this encounter Functional Status Functional [...] as of this encounter Progress Notes * DAVID Lind - 03/09/2023 2:00 PM EDT Subjective Reba Broussard is a 77 year old female. Chief Complaint Patient presents with Acute Brief Clinical History Ms. Broussard is a 77 year old woman last seen in Family Medicine 6 months ago (08-25-22). She is notdue for eval of any conditions. HPI: Presents with flu like symptoms Symptoms began around Thursda Include slight cough slight congestion no sore throat denies Fevers, chills, sweats low grade today + N no VD, no abd discomfort + BOLTON improved no hx of asthma or lung disease no wheezing no CP, SOB, ELIZABETH + Tobacco use drinking without difficulty Down but okay appetite normal urination no Tylenol use + NSAIDs use + probiotic no known COVID exposure + COVID vaccinated no COVID testing denies Sick Contacts Chronic knee/leg pain - when on her knees for too long - osteoarthritis Denies tick bites. 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 Zoster Vac Recomb Adjuvanted 50 MCG/0.5ML Intramuscular Suspension Reconstituted (Shingrix) INJECT 0.5 ML INTO A LARGE MUSCLE NOW AND REPEAT DOSE IN 60 TO 180 DAYS 1 mL 0 oxyCODONE HCl 5 MG Oral Tablet (Oxy IR) TAKE 1 TABLET BY MOUTH EVERY 4 HOURS NEEDED FOR MODERATE OR SEVERE PAIN. 5 Tablet 0 No current facility-administered medications for this visit. Past Medical History: Diagnosis Date Diffuse cystic mastopathy Diffuse cystic mastopathy Nonallopathic lesion of lumbar region 01/2006 Nonallopathic lesion of thoracic region 01/2006 Osteoarthrosis, pelvic region and thigh [address] Eller Osteoporosis update DEXA Swelling, mass, or lump in head and neck 10/2009 benign Tobacco use disorder Review of patient's allergies indicates: No Known Allergies Family History Problem Relation Age of Onset Cancer Grandmother (Paternal) breast ca. 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 [employer] Employer: [employer] Tobacco Use Smoking status: Every Day Packs/day: 0.50 Years: 30.00 Pack years: 15.00 Types: Cigarettes Smokeless tobacco: Never Vaping Use Vaping Use: Never used Substance and Sexual Activity Alcohol use: Yes Comment: socially mixed drink whiskey club soda, Drug use: Never Sexual activity: Yes Comment: since 1963 Other Topics Concern Service No Blood Transfusions Not Asked Caffeine Concern Not Asked Occupational Exposure Not Asked Hobby Hazards Yes Comment: Sewing, crafts, garden, cards Sleep Concern Not Asked Stress Concern Not Asked Weight Concern Not Asked Special Diet Not Asked Back Care Not Asked Exercise Not Asked Bike Helmet Not Asked Seat Belt Not Asked Self-Exams Not Asked Social History Narrative Not on file Social Determinants of Health Financial Resource Strain: Not on file Food Insecurity: No Food Insecurity Worried About Running Out of Food in the Last Year: Never true Ran Out of Food in the Last Year: Never true Transportation Needs: Not on file Physical Activity: Not on file Stress: Not on file Social Connections: Not on file Intimate Partner Violence: Not on file Housing Stability: Not on file Review of Systems All other systems reviewed and are negative. Objective BP 130/64 (BP Site: Right Arm, BP Position: Sitting, BP Cuff Size: Regular) | Pulse 90 | Temp 37.8 C (100 F) (Tympanic) | Resp 18 | Wt 48.1 kg (106 lb) | SpO2 99% | BMI 18.78 kg/m | BSA 1.46 m Physical Exam Vitals and nursing note reviewed. Constitutional: General: She is not in acute distress. Appearance: Normal appearance. She is not ill-appearing. HENT: Head: Normocephalic and atraumatic. Right Ear: Tympanic membrane, ear canal and external ear normal. Left Ear: Tympanic membrane, ear canal and external ear normal. Nose: Congestion present. Mouth/Throat: Mouth: Mucous membranes are moist. Pharynx: Oropharynx is clear. Eyes: Extraocular Movements: Extraocular movements intact. Conjunctiva/sclera: Conjunctivae normal. Pupils: Pupils are equal, round, and reactive to light. Cardiovascular: Rate and Rhythm: Normal rate and regular rhythm. Pulses: Normal pulses. Heart sounds: Normal heart sounds. Pulmonary: Effort: Pulmonary effort is normal. Breath sounds: Normal breath sounds. Abdominal: General: Bowel sounds are normal. Palpations: Abdomen is soft. Musculoskeletal: General: Normal range of motion. Cervical back: Normal range of motion and neck supple. Right lower leg: No edema. Left lower leg: No edema. Comments: OA bilateral knee/multiple joints Skin: General: Skin is warm and dry. Capillary Refill: Capillary refill takes less than 2 seconds. Neurological: Mental Status: She is alert and oriented to person, place, and time. Cranial Nerves: No cranial nerve deficit. Psychiatric: Mood and Affect: Mood normal. Behavior: Behavior normal. ASSESSMENT/PLAN: Flu-like symptoms (Primary) - RESPIRATORY PATHOGEN PANEL, PCR; Future; Expected date: 03/09/2023 - RESPIRATORY PATHOGEN PANEL, PCR Tobacco use - XR CHEST 2 VIEWS - LIPID PANEL WITH DIRECT LDL IF TG IS HIGH; Future; Expected date: 03/09/2023 Weight loss - CBC WITH WBC DIFFERENTIAL; Future; Expected date: 03/09/2023 - COMPREHENSIVE METABOLIC PANEL; Future; Expected date: 03/09/2023 - TSH WITH FREE T4 IF INDICATED; Future; Expected date: 03/09/2023 - 25-HYDROXY VITAMIN D; Future; Expected date: 03/09/2023 - CULTURE, URINE, QUANTITATIVE; Future; Expected date: 03/09/2023 - URINALYSIS, REFLEX TO MICROSCOPIC; Future; Expected date: 03/09/2023 HTN, goal below 140/90 Vitamin D deficiency - 25-HYDROXY VITAMIN D; Future; Expected date: 03/09/2023 Dyslipidemia - LIPID PANEL WITH DIRECT LDL IF TG IS HIGH; Future; Expected date: 03/09/2023 Generalized weakness - CULTURE, URINE, QUANTITATIVE; Future; Expected date: 03/09/2023 - URINALYSIS, REFLEX TO MICROSCOPIC; Future; Expected date: 03/09/2023 Appears possible viral on exam Labs ordered given general weakness/fatigued Viral infection- rest, fluids, time, age appropriate tylenol, most viruses peak in 3-5 days, improved 7-10 days resolve 10-14 days f/u if not following course. Anticipatory Guidance: Discussed below: Adult Anticipatory Guidance Ages 65 years and older: Diet: Nutritional Assessment. A diet that limits fats and sodium. Increase fiber and calcium intake. Recommend a diet high in fruits, vegetables and grains. Exercise: Encouraged regular physical activity as tolerated. Injury Prevention: Fall risk assessments, water temperature settings, domestic violence, smoking near bedding or near upholstery, car safety, smoke detector use and replacements. Follow up with PCP or seek emergency medical attention as needed if symptoms worsen, evolve, or fail to improve. Patient demonstrates understanding of the visit, course of treatment, and instructions. Thoroughly discussed alarming symptoms that would indicate need for emergent care/treatment. Medication instructions and possible side effects were reviewed with patient. All questions were answered and patient agrees to plan of care. Follow-up: Return if symptoms worsen or fail to improve. | Check-out note: Schedule fasting abs DAVID Lind Education Reviewed: documented in this encounter Nursing Notes * JULIA Hernandez - 03/09/2023 1:41 PM EDT Pt here states she does not feel well Nauseated Lightheaded Dizziness Feels run down States a probiotic since her stomach does not feel well documented in this encounter Plan of Treatment Upcoming Encounters Date Type Specialty Care Team Description 03/11/2023 Laboratory Laboratory [facility], Lab [address] [place] [address] Arrived 08/31/2023 Office Visit [facility] [place], DAVID Cortez [address] [place] [address] Scheduled Orders Name Type Priority Associated Diagnoses Orde r Schedule CBC WITH WBC DIFFERENTIAL Lab Routine Weight loss Expected: 03/09/2023 (Approximate), Expires: 03/09/2024 COMPREHENSIVE METABOLIC PANEL Lab Routine Weight loss Expected: 03/09/2023 (Approximate), Expires: 03/08/2024 XR CHEST 2 VIEWS Medical Imaging Routine Tobacco use Ordered: 03/09/2023 TSH WITH FREE T4 IF INDICATED Lab Routine Weight loss Expected: 03/09/2023 (Approximate), Expires: 03/08/2024 25-HYDROXY VITAMIN D Lab Routine Weight loss Vitamin D deficiency Expected: 03/09/2023 (Approximate), Expires: 03/08/2024 LIPID PANEL WITH DIRECT LDL IF TG IS HIGH Lab Routine Tobacco use Dyslipidemia Expected: 03/09/2023, Expires: 03/09/2024 CULTURE, URINE, QUANTITATIVE Lab Routine Weight loss Generalized weakness Expected: 03/09/2023, Expires: 03/09/2024 URINALYSIS, REFLEX TO MICROSCOPIC Lab Routine Weight loss Generalized weakness Expected: 03/09/2023, Expires: 03/09/2024 Health Maintenance Due Date Last Done Comments [...] Procedure Name Priority Date/Time Associated Diagnosis Comments RESPIRATORY PATHOGEN PANEL, PCR Routine 03/09/2023 2:26 PM EDT Flu-like symptoms documented in this encounter Results * RESPIRATORY PATHOGEN PANEL, PCR (03/09/2023 2:26 PM EDT) Adenovirus by PCR Negative Negative 023 9:05 PM EDT LABORATORY [facility] Coronavirus 229E by PCR Negative Negative 03/09/2023 9:05 PM EDT LABORATORY [facility] Coronavirus HKU1 by PCR Negative Negative 03/09/2023 9:05 PM EDT LABORATORY [facility] Coronavirus NL63 by PCR Negative Negative 03/09/2023 9:05 PM EDT LABORATORY [facility] Coronavirus OC43 by PCR Negative Negative 03/09/2023 9:05 PM EDT LABORATORY [facility] Coronavirus SARS-CoV-2 by PCR Negative Negative 03/09/2023 9:05 PM EDT LABORATORY [facility] Human Metapneumovirus by PCR Negative Negative 03/09/2023 9:05 PM EDT LABORATORY [facility] Rhinovirus/Enterovi jose rafael by PCR Negative Negative 03/09/2023 9:05 PM EDT LABORATORY [facility] Influenza A Virus by PCR Negative Negative 03/09/2023 9:05 PM EDT LABORATORY [facility] Influenza B Virus by PCR Negative Negative 03/09/2023 9:05 PM EDT LABORATORY [facility] Parainfluenza Virus 1 by PCR Negative Negative 03/09/2023 9:05 PM EDT LABORATORY [facility] Parainfluenza Virus 2 by PCR Negative Negative 03/09/2023 9:05 PM EDT LABORATORY [facility] Parainfluenza Virus 3 by PCR Negative Negative 03/09/2023 9:05 PM EDT LABORATORY [facility] Parainfluenza Virus 4 by PCR Negative Negative 03/09/2023 9:05 PM EDT LABORATORY [facility] Respiratory Syncytial Virus by PCR Negative Negative 03/09/2023 9:05 PM EDT LABORATORY [facility] Bordetella pertussis by PCR Negative Negative 03/09/2023 9:05 PM EDT LABORATORY [facility] Chlamydia pneumoniae by PCR Negative Negative 03/09/2023 9:05 PM EDT LABORATORY [facility] Mycoplasma pneumoniae by PCR Negative Negative 03/09/2023 9:05 PM EDT LABORATORY [facility] Bordetella parapertussis by PCR Negative Negative 03/09/2023 9:05 PM EDT LABORATORY [facility] Comment: The primers that detect Rhinovirus may cross react with some Enterorviruses. The validation of bronchial specimens, tracheal aspirates, and throats for this assay was developed and performance characteristics determined by [employer]. The validation of alternate specimen types has not been cleared or approved by the U.S. Food and Drug Administration (FDA). It has been determined that such clearance or approval is not necessary. Upper Respiratory Mid-turbinate nasal swab / Unknown Non-blood Collection / Unknown 03/09/2023 2:26 PM EDT 03/09/2023 2:26 PM EDT Anni HERNANDEZ LAB MICRO - GENERAL ORDERABLES LABORATORY [facility] [address] [place] [address] documented in this encounter Visit Diagnoses Diagnosis Flu-like symptoms- Primary Influenza with other respiratory manifestations Tobacco use Tobacco use disorder Weight loss Loss of weight HTN, goal below 140/90 Unspecified essential hypertension Vitamin D deficiency Unspecified vitamin D deficiency Dyslipidemia Other and unspecified hyperlipidemia Generalized weakness Other malaise and fatigue documented in this encounter Additional Health Concerns Infection Onset Date Last Indicated Resolved Time Respiratory Rule-Out 03/09/2023 03/09/2023 023 9:05 PM EDT documented as of this encounter Advance Directives Documents on File Type Date Recorded Patient Heel Breaster Expl anation Advance Directives and Living Will 06/24/2022 ADVANCE DIRECTIVE / LIVING WILL Power of Business Systems Manager 06/24/2022 POWER OF A TTORNEY Care Teams Claim Administrator Relationship Specialty Start Date End Date Jamie Wynn DO [address] [place] [id number] PCP - General Family Medicine 08/08/16 documented as of this encounter"
--- OUTSIDE RECORDS SUMMARY | 2023-07-05 14:57 | External Medical Summary | Summary of Care ---
Author Name Unknown Organization [facility] Address [address] [place] [address] Phone [phone] Care Team Providers Care Software Client Architect Name Role Phone Jamie Wynn DO Primary Care Provider [phone] Reason for Visit * Reason Comments Outpatient Testing Encounter Details Date Type Department Care Team Description 03/11/2023 Laboratory Laboratory, [facility] [address] [place] [address] [facility], Lab [address] [place] [address] Weight loss; Vitamin D deficiency; Tobacco use; Dyslipidemia; Generalized weakness Allergies No known active [...] DELETE [facility] DETECT Study: Project # [id number], Cable Tower Operator: Khadar Dodd, PhD. SUMMARY: Goal: Establish [...] contact study staff at ; after hours Cable Tower Operator via the [facility] hospital owner operator . Please contact study team before resolving/deleting from patients problem list. Study phone number: [phone]. Diagnosis changed due to Research Module. Go to Snapshot for study details. Encounter for examination fo r normal comparison and control in clinical research program 11/21/2017 06/30/2022 Overview: DO NOT DELETE - [facility] DETECT Study: Project # [id number], Cable Tower Operator: Mykel Gill, MS, MPH. SUMMARY: Goal: [...] contact study staff at ; after hours Cable Tower Operator via the [facility] hospital owner operator . - Please contact study team before resolving/deleting from patients problem list. Study phone number: [phone]. Diagnosis changed due to Research Module. Go [...] Visit Family [facility] [place], DAVID Cortez [address] [place] [address] Pending Results Name Type Priority Associated Diagnoses Date /Time COMPREHENSIVE METABOLIC PANEL Lab Routine Weight loss 03/11/2023 9:05 AM EDT TSH WITH FREE T4 IF INDICATED Lab Routine Weight loss 03/11/2023 9:05 AM EDT 25-HYDROXY VITAMIN D Lab Routine Weight loss Vitamin D deficiency 03/11/2023 9:05 AM EDT LIPID PANEL WITH DIRECT LDL IF TG IS HIGH Lab Routine Tobacco use Dyslipidemia 03/11/2023 9:05 AM EDT Health Maintenance Due Date Last [...] Priority Date/Time Associated Diagnosis Comments DIFFERENTIAL, AUTOMATED Routine 03/11/2023 9:05 AM EDT Weight loss CBC WITH WBC DIFFERENTIAL Routine 03/11/2023 9:05 AM EDT Weight loss CBC Routine 03/11/2023 9:05 AM EDT Weight loss documented in this encounter Results * (ABNORMAL) DIFFERENTIAL, AUTOMATED (03/11/2023 9:05 AM EDT) WBC 11.01(H) 4.00 - 10.80 K/uL 03/11/2023 9:15 AM EDT LABORATORY [facility] Neutrophils % 73.5 40.0 - 75.0 % 03/11/2023 9:15 AM EDT LAB[facility]ATORY [facility] Lymphocytes % 13.6(L) 18.0 - 42.0 % 03/11/2023 9:15 AM EDT LAB[facility]ATORY [facility] Monocytes % 10.8 1.0 - 11.0 % 03/11/2023 9:15 AM EDT LAB[facility] Eosinophils % 1.5 0.0 - 6.0 % 03/11/2023 9:15 AM EDT LAB[facility]ORY [facility] Basophils % 0.3 0.0 - 2.0 % 03/11/2023 9:15 AM EDT LAB[facility]ATORY [facility] Immature Granulocytes % 0.3 0.0 - 2.0 % 03/11/2023 9:15 AM EDT LABORATORY [facility] Absolute Neutrophils 8.10(H) 1.80 - 7.70 K/uL 03/11/2023 9:15 AM EDT LABORATORY [facility] Absolute Lymphocytes 1.50 1.00 - 4.80 K/ul 03/11/2023 9:15 AM EDT LAB[facility]ATORY [facility] Absolute Monocytes 1.19(H) 0.00 - 1.10 K/uL 03/11/2023 9:15 AM EDT LAB[facility]ATORY [facility] Absolute Eosinophils 0.16 0.00 - 0.70 K/uL 03/11/2023 9:15 AM EDT LAB[facility]ATORY [facility] Absolute Basophils 0.03 0.00 - 0.20 K/uL 03/11/2023 9:15 AM EDT LABORATORY [facility] Absolute Immature Granulocytes 0.03 0.00 - 0.20 K/uL 03/11/2023 9:15 AM EDT LABORATORY [facility] Blood Venous blood specimen / Unknown Venipuncture / Unknown 03/11/2023 9:05 AM EDT 03/11/2023 9:12 AM EDT Anni HERNANDEZ LAB BLOOD ORDERABLE S LABORATORY [facility] [address] [place] [address] * (ABNORMAL) CBC (03/11/2023 9:05 AM EDT) WBC 11.01(H) 4.00 - 10.80 K/uL 03/11/2023 9:15 AM EDT LABORATORY [facility] RBC 4.00 3.85 - 5.15 M/uL 03/11/2023 9:15 AM EDT LABORATORY [facility] HGB 10.7(L) 12.0 - 15.3 g/dL 03/11/2023 9:15 AM EDT LABORATORY [facility] HCT 32.7(L) 36.0 - 45.2 % 03/11/2023 9:15 AM EDT LABORATORY [facility] MCV 81.8 81.5 - 97.5 fL 03/11/2023 9:15 AM EDT LABORATORY [facility] MCH 26.8 27.0 - 34.0 pg 03/11/2023 9:15 AM EDT LABORATORY [facility] MCHC 32.7 32.0 - 36.0 g/dL 03/11/2023 9:15 AM EDT LABORATORY [facility] RDW 13.0 11.5 - 15.5 % 03/11/2023 9:15 AM EDT LABORATORY [facility] PLT 463(H) 140 - 400 K/uL 03/11/2023 9:15 AM EDT LABORATORY [facility] MPV 9.0 6.6 - 11.1 fL 03/11/2023 9:15 AM EDT LABORATORY [facility] nRBCs 0 <=0 /100 WBCs 03/11/2023 9:15 AM EDT LABORATORY [facility] Blood Venous blood specimen / Unknown Venipuncture / Unknown 03/11/2023 9:05 AM EDT 03/11/2023 9:12 AM EDT Anni Carr DAVID LAB BLOOD ORDERABLE S Performing Organization Address City/State/[facility] Co de Phone Number LABORATORY [facility] [address] [place], [place] [id number] documented in this encounter Visit Diagnoses Diagnosis Weight loss Loss of weight Vitamin D deficiency Unspecified vitamin D deficiency Tobacco use Tobacco use disorder Dyslipidemia Other and unspecified hyperlipidemia Generalized weakness Other malaise and fatigue documented in this encounter Advance Directives Documents on File Type Date Recorded Patient Card Assembler Expl anation Advance Directives and Living Will 06/24/2022 ADVANCE DIRECTIVE / LIVING WILL Power of Stripper And Printer 06/24/2022 POWER OF A TTORNEY Care Teams Software Client Architect Relationship Specialty Start Date End Date Jamie Wynn, [address] [facility] [place] [address] PCP - General Family Medicine 08/08/16 documented as of this encounter
--- OUTSIDE RECORDS SUMMARY | 2023-07-05 14:57 | External Medical Summary | Summary of Care ---
Author Name Unknown Organization [facility] Address [address] [place] [address] Phone [phone] Care Team Providers Care Environmental Health And Safety Leader Name Role Phone Jamie Wynn DO Primary Care Provider [phone] [phone] Encounter Details Date Type Department Care Team Description 03/11/2023 Orders Only [facility] [id number] Anni Carr CRNP [address] [place], [place] [id number] Anemia, unspecified type* Allergies No known active allergiesdocumented as of [...] [facility] DETECT Study: Project # [id number], Turf Grower: Khadar Dodd, PhD. SUMMARY: Goal: Establish test [...] contact study staff at ; after hours Turf Grower via the [facility] gang hemstitching machine operator . Please contact study team before resolving/deleting from patients problem list. Study phone number: [phone]. Diagnosis changed due to Research Module. Go to Snapshot for study details. Encounter for examination fo r normal comparison and control in clinical research program 11/21/2017 06/30/2022 Overview: DO NOT DELETE - [facility] DETECT Study: Project # [id number], Turf Grower: Mykel Gill, MS, MPH. SUMMARY: Goal: Establish [...] contact study staff at ; after hours Turf Grower via the [facility] hospital gang hemstitching machine operator . - Please contact study team before resolving/deleting from patients problem list. Study phone number: [phone]. Diagnosis changed due to Research Module. Go [...] Visit Family Medicine Dep[place], DAVID Cortez [address] [place] [address] Scheduled Orders Name Type Priority Associated Diagnoses Orde r Schedule FERRITIN Lab Routine Anemia, unspecified type Expected: 03/11/2023, Expires: 03/11/2024 IRON SCREEN, INCLUDING TIBC Lab Routine Anemia, unspecified type Expected: 03/11/2023, Expires: 03/11/2024 Health Maintenance Due Date Last Done Comments [...] Visit Diagnoses Diagnosis Anemia, unspecified type- Primary documented in this encounter Advance Directives Documents on File Type Date Recorded Patient Electric Organ Assembler And Checker Expl anation Advance Directives and Living Will 06/24/2022 ADVANCE DIRECTIVE / LIVING WILL Power of Gold Leaf Gilder 06/24/2022 POWER OF A TTORNEY Care Teams Environmental Health And Safety Leader Relationship Specialty Start Date End Date Jamie Wynn, [address] [facility] [place] [address] PCP - General Family Medicine 08/08/16 documented as of this encounter
--- OUTSIDE RECORDS SUMMARY | 2023-07-05 14:57 | External Medical Summary | Summary of Care ---
Author Name Unknown Organization [facility] Address [address] [facility] [address] Phone [phone] Care Team Providers Care Cat And Dog Bather Name Role Phone Jamie Wynn DO Primary Care Provider [phone] Reason for Visit * Reason Onset Date Comments COVID-19 Screening 03/10/2023 Encounter Details Date Type Department Care Team Description 03/10/2023 Telephone COVID19 Screening [facility] DEPT CLOSED 08/10/21 [address] [facility] [place] [id number], Automated Provider COVID-19 Screening Allergies No known active allergiesdocumented as of this encounter (statuses as of 03/11/2023) Medications Medication Sig Dispensed Refills Start Date End Date Status Vitamin D 25 MCG (1000 UT) Oral Tablet Take by mouth . 0 Active Zoster Vac Recomb Adjuvanted 50 MCG/0.5ML Intramuscular Suspension Reconstituted (Shingrix)Indications :Need for vaccination for zoster INJECT 0.5 ML INTO A LARGE MUSCLE NOW AND REPEAT DOSE IN 60 TO 180 DAYS 1 mL 0 08/25/2022 08/25/2023 Active oxyCODONE HCl 5 MG Oral Tablet (Oxy IR) TAKE 1 TABLET BY MOUTH EVERY 4 HOURS NEEDED FOR MODERATE OR SEVERE PAIN. 5 Tablet 0 11/17/2022 05/16/2023 Active documented as of this encounter (statuses [...] [facility] DETECT Study: Project # [id number], Base Filler: Khadar Dodd, PhD. SUMMARY: Goal: Establish test [...] contact study staff at ; after hours Base Filler via the [facility] molder operator . Please contact study team before resolving/deleting from patients problem list. Study phone number: [phone]. Diagnosis changed due to Research Module. Go to Snapshot for study details. Encounter for examination fo r normal comparison and control in clinical research program 11/21/2017 06/30/2022 Overview: DO NOT DELETE - [facility] DETECT Study: Project # [id number], Base Filler: Mykel Gill, MS, MPH. SUMMARY: Goal: Establish [...] contact study staff at ; after hours Base Filler via the [facility] hospital molder operator . - Please contact study team before resolving/deleting from patients problem list. Study phone number: [phone]. Diagnosis changed due to Research Module. Go [...] Notes * Telephone Encounter - Covid Results [facility] - 03/10/2023 11:50 PM EDT Outreach Attempts IVR Call Mar 10 2023 9:03AM Voicemail - Voicemail Inbound Call Mar 10 2023 3:18PM Answered - Failed to Authenticate IVR Message: Unsuccessful contact, no education provided documented in this encounter Plan of Treatment Upcoming Encounters Date Type Specialty Care Team Description 08/31/2023 Office Visit Family Medicine Depoe, DAVID Cortez [address] [place] [address] Health Maintenance Due Date Last Done Comments [...] Documents on File Type Date Recorded Patient Commercial Lines Account Manager Expl anation Advance Directives and Living Will 06/24/2022 ADVANCE DIRECTIVE / LIVING WILL Power of Marketing Support Manager 06/24/2022 POWER OF A TTORNEY Care Teams Cat And Dog Bather Relationship Specialty Start Date End Date Jamie Wynn, [address] [place] [address] PCP - General Family Medicine 08/08/16 documented as of this encounter
--- OUTSIDE RECORDS SUMMARY | 2023-07-05 14:57 | External Medical Summary ---
Author Name Unknown Address Unknown Organization K01:LABORATORY [facility] - [address] [place] [address] Laboratory Report Ordering Provider Test Date Status BRINDA MADRID 03/11/2023 09:05:37 Final Observation Date Value Abnormality Reference (Units ) Status 25-OH Vitamin D total 03/11/2023 09:05:37 33 >19 (ng/mL) Final Performing Location LABORATORY [facility] - [address] [place] [address]
--- OUTSIDE RECORDS SUMMARY | 2023-07-05 14:57 | External Medical Summary ---
Author Name Unknown Address Unknown Organization K01:LAB[facility]ATORY [facility] - [address] [place] [address] Laboratory Report Ordering Provider Test Date Status BRINDA MADRID 03/11/2023 09:05:37 Final Observation Date Value Abnormality Reference (Units ) Status Iron 03/11/2023 09:05:37 13 Below low normal 33-151 (ug/dL) Final Iron-binding capacity 03/11/2023 09:05:37 259 250-425 (ug/dL) Final Transferrin Sat % 03/11/2023 09:05:37 5 Below low normal 15-55 (%) Final Performing Location LABORATORY [facility] - [address] [place] [address]
--- OUTSIDE RECORDS SUMMARY | 2023-07-05 14:57 | External Medical Summary | Summary of Care ---
Author Name Unknown Organization [facility] Address [address] [facility] [place] [address] Phone [phone] Care Team Providers Care Smoke Tester Name Role Phone Jamie Wynn DO Primary Care Provider [phone]- [phone] Reason for Visit * Reason Comments Blood Pressure Check Encounter Details Date Type Department Care Team Description 03/08/2023 Nurse Only Ancillary, Fred [address] [place] [address] Fred Nurse Ancillary [address] [place] [address] Blood Pressure Check Allergies No known active allergiesdocumented as of this encounter (statuses as of 03/08/2023) Medications Medication Sig Dispensed Refills Start Date End Date Status Vitamin D 25 MCG (1000 UT) Oral Tablet Take by mouth . 0 Active Zoster Vac Recomb Adjuvanted 50 MCG/0.5ML Intramuscular Suspension Reconstituted (Shingrix)Indication s:Need for vaccination for zoster INJECT 0.5 ML INTO A LARGE MUSCLE NOW AND REPEAT DOSE IN 60 TO 180 DAYS 1 mL 0 08/25/2022 08/25/2023 Active oxyCODONE HCl 5 MG Oral Tablet (Oxy IR) TAKE 1 TABLET BY MOUTH EVERY 4 HOURS NEEDED FOR MODERATE OR SEVERE PAIN. 5 Tablet 0 11/17/2022 05/16/2023 Active Additional Information Patient not taking.Reported on 11/25/2022 documented as of this encounter (statuses as of 03/08/2023) Active Problems Problem Noted Date Cataract 08/08/2016 [...] as of this encounter (statuses as of 03/08/2023) Resolved Problems Problem Noted Date Resolved Date Encounter for examination fo r normal comparison and control in clinical research program 11/21/2017 06/01/2020 Overview: DO NOT DELETE Chain DETECT Study: Project # [id number], Graphics Coordinator: Khadar Dodd, PhD. SUMMARY: Goal: Establish [...] contact study staff at ; after hours Graphics Coordinator via the [facility] turner splitter machine operator . Please contact study team before resolving/deleting from patients problem list. Study phone number: [phone]. Diagnosis changed due to Research Module. Go to Snapshot for study details. Encounter for examination fo r normal comparison and control in clinical research program 11/21/2017 06/30/2022 Overview: DO NOT DELETE - Chain DETECT Study: Project # [id number], Graphics Coordinator: Mykel Gill, MS, MPH. SUMMARY: Goal: [...] contact study staff at ; after hours Graphics Coordinator via the [facility] hospital turner splitter machine operator . - Please contact study team before resolving/deleting from patients problem list. Study phone number: [phone]. Diagnosis changed due to Research Module. Go to Snapshot for study details. documented as of this encounter (statuses as of 03/08/2023) Immunizations Name Administration Dates Next Due Covid-19 [...] alcohol) socially mixed drink whiskey club soda, Sex Assigned at Date Recorded Not on file Job Start Date Occupation Industry Not on file Not on file Not on file documented as of this encounter Last Filed Vital Signs Vital Sign Reading Time Taken Comments Blood Pressure 130/70 03/08/2023 2:02 PM EDT Pulse - - Temperature - - Respiratory Rate - - Oxygen Saturation - - Inhaled Oxygen Concentration - - Weight - [...] No 09/02/2021 documented as of this encounter Nursing Notes * JULIA Hernandez - 03/08/2023 2:03 PM EDT Blood pressure: 130/70 Reconciliation of medications performed? Yes Did you take your medications today? Yes Any new problems or side effects of medications? No Any home blood pressure readings to report? No Pharmacy verified? Yes Phone number to be reached verified? Yes documented in this encounter Plan of Treatment Upcoming Encounters Date Type Specialty Care Team Description 03/09/2023 Office Visit Family Medicine Anni Carr CRNP [address] [facility] [place] [address] 08/31/2023 Office Visit Family Medicine Zofia Woodward CRNP [address] [place] [address] Health Maintenance Due Date Last Done Comments [...] Documents on File Type Date Recorded Patient Fire Apparatus Engineer Expl anation Advance Directives and Living Will 06/24/2022 ADVANCE DIRECTIVE / LIVING WILL Power of Donations Attendant 06/24/2022 POWER OF A TTORNEY Care Teams Smoke Tester Relationship Specialty Start Date End Date Jamie Wynn, [address] [place] [address] PCP - General Family Medicine 08/08/16 documented as of this encounter
--- OUTSIDE RECORDS SUMMARY | 2023-07-05 14:57 | External Medical Summary ---
Author Name Unknown Address Unknown Organization K01:[facility] [address] [facility] [place] [address] Laboratory Report Ordering Provider Test Date Status BRINDA MADRID 03/09/2023 14:26:00 Final Observation Date Value Abnormality Reference (Units ) Status Adenovirus DNA [Presence] in Nasopharynx by JADEN with non-probe detection 03/09/2023 14:26:00 Negative Negative Final Human coronavirus 229E RNA [Presence] in Nasopharynx by JADEN with non-probe detection 03/09/2023 14:26:00 Negative Negative Final Human coronavirus HKU1 RNA [Presence] in Nasopharynx by JADEN with non-probe detection 03/09/2023 14:26:00 Negative Negative Final Human coronavirus NL63 RNA [Presence] in Nasopharynx by JADEN with non-probe detection 03/09/2023 14:26:00 Negative Negative Final Human coronavirus OC43 RNA [Presence] in Nasopharynx by JADEN with non-probe detection 03/09/2023 14:26:00 Negative Negative Final SARS-CoV-2 (COVID-19) RNA [Presence] in Nasopharynx by JADEN with non-probe detection 03/09/2023 14:26:00 Negative Negative Final Human metapneumovirus RNA [Presence] in Nasopharynx by JADEN with non-probe detection 03/09/2023 14:26:00 Negative Negative Final Rhinovirus+Enterovirus RNA [Presence] in Nasopharynx by JADEN with non-probe detection 03/09/2023 14:26:00 Negative Negative Final Influenza virus A RNA [Presence] in Nasopharynx by JADEN with non-probe detection 03/09/2023 14:26:00 Negative Negative Final Influenza virus B RNA [Presence] in Nasopharynx by JADEN with non-probe detection 03/09/2023 14:26:00 Negative Negative Final Parainfluenza virus 1 RNA [Presence] in Nasopharynx by JADEN with non-probe detection 03/09/2023 14:26:00 Negative Negative Final Parainfluenza virus 2 RNA [Presence] in Nasopharynx by JADEN with non-probe detection 03/09/2023 14:26:00 Negative Negative Final Parainfluenza virus 3 RNA [Presence] in Nasopharynx by JADEN with non-probe detection 03/09/2023 14:26:00 Negative Negative Final Parainfluenza virus 4 RNA [Presence] in Nasopharynx by JADEN with non-probe detection 03/09/2023 14:26:00 Negative Negative Final Respiratory syncytial virus RNA [Presence] in Nasopharynx by JADEN with non-probe detection 03/09/2023 14:26:00 Negative Negative Final Bordetella pertussis.pertussis toxin promoter region [Presence] in Nasopharynx by JADEN with non-probe detection 03/09/2023 14:26:00 Negative Negative Final Chlamydophila pneumoniae DNA [Presence] in Nasopharynx by JADEN with non-probe detection 03/09/2023 14:26:00 Negative Negative Final Mycoplasma pneumoniae DNA [Presence] in Nasopharynx by JADEN with non-probe detection 03/09/2023 14:26:00 Negative Negative Final Bordetella parapertussis [id number] DNA [Presence] in Nasopharynx by JADEN with non-probe detection 03/09/2023 14:26:00 Negative Negative Final Performing Location [facility] [place] [address] [facility] [address]
--- OUTSIDE RECORDS SUMMARY | 2023-07-05 14:57 | External Medical Summary ---
Author Name Unknown Address Unknown Organization K01:[facility]ORY [facility] - [address] [place] [address] Laboratory Report Ordering Provider Test Date Status DAVID MADRIDTIARRA 03/11/2023 09:05:37 Final Observation Date Value Abnormality Reference (Units ) Status TSH 03/11/2023 09:05:37 1.61 0.27-4.20 (uIU/mL) Final Performing Location LABORATORY [facility] - [address] [place] [address]
--- OUTSIDE RECORDS SUMMARY | 2023-07-05 14:57 | External Medical Summary ---
Author Name Unknown Address Unknown Organization K01:[facility] - [address] [place] [address] Laboratory Report Ordering Provider Test Date Status JULIUSDAVIDTIARRA 03/11/2023 09:05:37 Final Observation Date Value Abnormality Reference (Units ) Status Ferritin 03/11/2023 09:05:37 307 Above high normal 13 -150 (ng/mL) Final Performing Location [facility] - [address] [place] [address]
--- OUTSIDE RECORDS SUMMARY | 2023-07-05 14:58 | External Medical Summary | Summary of Care ---
Author Name Unknown Organization [place] [address] Care Team Providers Care Music Teacher Name Role Phone PaxtonJamie gonzalez Yarely NAIK Primary Care Provider [phone] Reason for Visit * Reason Comments Post-Op Encounter Details Date Type Department Care Team Description 11/25/2022 Office Visit Otolaryngology/Head & Neck/Facial Plastic Surgery [address] [place] [address] Annika Morfin PA-C [address] [place] [address] Pleomorphic adenoma of parotid gland*; Examination following surgery Allergies No known active allergiesdocumented as of this encounter (statuses as of 11/25/2022) Medications Medication Sig Dispensed Refills Start Date End Date Status Vitamin D 25 MCG (1000 UT) Oral Tablet Take by mouth . 0 Active Zoster Vac Recomb Adjuvanted 50 MCG/0.5ML Intramuscular Suspension Reconstituted (Shingrix)Indications :Need for vaccination for zoster Inject 0.5 mL into a large muscle now and repeat dose in 60 to 180 days 1 Each 0 08/25/2022 Active oxyCODONE HCl 5 MG Oral Tablet (Oxy IR) Take 1 Tablet by mouth every 4 hours as needed for Pain, Severe or Pain, Moderate. 5 Tablet 0 11/17/2022 Active Additional Information Patient not taking.Reported on 11/25/2022 documented as of this encounter (statuses as of 11/25/2022) Active Problems Problem Noted Date Cataract 08/08/2016 [...] as of this encounter (statuses as of 11/25/2022) Resolved Problems Problem Noted Date Resolved Date Encounter for examination fo r normal comparison and control in clinical research program 11/21/2017 06/01/2020 Overview: [facility] NOT [facility] DETECT Study: Project # [id number], Polymer Engineer: Khadar Dodd, PhD. SUMMARY: Goal: Establish [...] contact study staff at ; after hours Polymer Engineer via the [facility] machine feed operator . Please contact study team before resolving/deleting from patients problem list. Study phone number: [phone]. Diagnosis changed due to Research Module. Go to Snapshot for study details. Encounter for examination fo r normal comparison and control in clinical research program 11/21/2017 06/30/2022 Overview: DO NOT DELETE - Advanced Patient Care DETECT Study: Project # [id number], Polymer Engineer: Mykel Gill, MS, MPH. SUMMARY: Goal: [...] contact study staff at ; after hours Polymer Engineer via the [facility] machine feed operator . - Please contact study team before resolving/deleting from patients problem list. Study phone number: [phone]. Diagnosis changed due to Research Module. Go to Snapshot for study details. documented as of this encounter (statuses as of 11/25/2022) Immunizations Name Administration Dates Next Due Covid-19 [...] Pressure - - Pulse - - Temperature 36 C (96.8 F) 11/25/2022 10:43 AM EST Respiratory Rate - - Oxygen Saturation - [...] as of this encounter Progress Notes * Annika Morfin PA-C - 11/25/2022 1:14 PM EST Department of Otolaryngology - Head and Neck Surgery Facial Plastic Surgery [address] [address] 11/25/2022 Post Op Note: Diagnosis: Left pleomorphic adenoma Treatment history: 11/17/22- left parotidectomy (Dr. Miller) HPI: Reba Delaney is here for a post op visit following the above procedure(s). Operative findings: 1) Left greater auricular nerve was identified and preserved 2) 3 cm left tail of parotid mass, soft and mobile, capsule was intact 3) Left marginal mandibular nerve and cervical facial nerve branches were identified with retrograde dissection and preserved 4) Face was confirmed to be working in PACU Surgical pathology: A. Left parotid mass, parotidectomy: Pleomorphic adenoma, tumor abuts, margin of resection Physical Exam: 77 year old female in NAD. 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 Doing well post op Pathology reviewed Incision care discussed Follow up as needed Annika Morfin PA-C documented in this encounter Plan of Treatment Upcoming Encounters Date Type Specialty Care Team Description 08/31/2023 Office Visit Family Medicine Depoe, DAVID Cortez [address] [place] [address] Health Maintenance Due Date Last Done Comments DXA Scan 02/08/2020 02/07/2017, 01/29, 02/20/2014, Additional history exists COVID-19 Vaccine (2 - Booster for Pierce series) 01/18/2022 11/23/2021 Influenza Vaccine (FLU shot) (#1) 2022 Zoster Vaccines (2 of 2) 10/20/2022 08/25/2022 Pneumococcal Vaccine: 65+ Years (2 - PCV) 11/04/2022 11/04/2021 Depression Screening, Annual for Pts 12 and [...] as of this encounter Visit Diagnoses Diagnosis 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
--- OUTSIDE RECORDS SUMMARY | 2023-07-05 14:58 | External Medical Summary | Summary of Care ---
Author Name Unknown Organization [facility] Address [place] [address] Care Team Providers Care Stock Raiser Name Role Phone Jamie Wynn DO Primary Care Provider [phone] Reason for Visit * Reason Onset Date Comments Health Maintenance 08/16/2022 Health Maintenance 08/18/2022 Encounter Details Date Type Department Care Team Description 08/16/2022 [facility] [address] [place] [address] Jamie Wynn DO [address] [place] [address] Health Maintenance; Health Maintenance Allergies No known active allergiesdocumented as of this encounter (statuses as of 08/18/2022) Medications Medication Sig Dispensed Refills Start Date End Date Status VITAMIN E 400 UNIT PO CAPS DAILY 0 Active MULTI-VITAMIN PO TABS one daily 0 Act lilly Furosemide 20 MG Oral Tablet (Lasix)Indications:Wade ous insufficiency One pill once A Day On mon only , for Water Pill , generic 30 Tablet 1 05/10/2022 Active documented as of this encounter (statuses as of 08/18/2022) Active Problems Problem Noted Date Cataract 08/08/2016 [...] as of this encounter (statuses as of 08/18/2022) Resolved Problems Problem Noted Date Resolved Date Encounter for examination fo r normal comparison and control in clinical research program 11/21/2017 06/01/2020 Overview: DO NOT DELETE [facility] DETECT Study: Project # [id number], Manager Sterile: Khadar Dodd, PhD. SUMMARY: Goal: Establish test [...] study staff at ; after hours Manager Sterile via the [facility] hospital swing type lathe operator . Please contact study team before resolving/deleting from patients problem list. Study phone number: [phone]. Diagnosis changed due to Research Module. Go to Snapshot for study details. Encounter for examination fo r normal comparison and control in clinical research program 11/21/2017 06/30/2022 Overview: DO NOT DELETE [facility] Study: Project # [id number], Manager Sterile: Mykel Gill, MS, MPH. SUMMARY: Goal: Establish [...] study staff at ; after hours Manager Sterile via the [facility] hospital swing type lathe operator . - Please contact study team before resolving/deleting from patients problem list. Study phone number: [phone]. Diagnosis changed due to Research Module. Go to Snapshot for study details. documented as of this encounter (statuses as of 08/18/2022) Immunizations Name Administration Dates Next Due Covid-19 Ad26, Single Dose (Pierce/J&J) 022 Pneumococcal Polysaccharide PPV23 (Pneumovax) TD - Tetanus/Diptheria (ADULT) 08/18/2006,1988 TD, Preservative Free 07/20/2022 TDAP (age 11 and older)(Adacel) 08/18/2006 documented as of this encounter Social History Tobacco Use Types Packs/Day Years Used Date Current Every Day Smoker Cigarettes 0.5 30 Smokeless Tobacco: Never Used Alcohol Use Standard Drinks/Week Comments Yes 0 (1 standard drink = 0.6 oz pure alcohol) socially mixed drink whiskey club soda, Alcohol Habits Answer Date Recorded How often do you have a drin k containing alcohol? Not asked How many drinks containing a lcohol do you have on a typical day when you are drinking? Not asked How often do you have six or more drinks on one occasion? Not asked Comment: socially mixed drink whiskey club soda, 02/17/2006 Sex Assigned at Date Recorded Not on [...] encounter Miscellaneous Notes * Addendum Note - Johana Dorantes LPN - 08/18/2022 9:53 AM EDT Addended by: JOHANA DORANTES on: 08/18/2022 09:53 AM Modules accepted: Orders, SmartSet * Telephone Encounter - Johana Dorantes LPN - 08/18/2022 9:40 AM EDT Care Gaps Comprehensive Care Outreach Received call back from patient on voicemail. Called patient. Last Office/Telemedicine Visit: 05/10/2022 (in office), Visit date not found (telemedicine) Last Office/Telemedine Visit Annual Wellness: Next Office Visit: 08/25/2022 Hemoglobin AIC Results: Lab Results Component Value Date/Time HEMOGLOBIN A1C - [facility] 5.6 08/19/2021 12:19 PM Health Maintenance Topic Date Due Zoster Vaccines (1 of 2) Never done DXA Scan 02/08/2020 COVID-19 Vaccine (2 - Booster for Pierce series) 01/18/2022 Influenza Vaccine (FLU shot) (1) Never done Pneumococcal Vaccine: 65+ Years (2 - PCV) 11/04/2022 Care Gap Outreach Action Taken: Spoke to patient AWV-scheduled Dexa ordered and scheduled mammo scheduled Flu-declines * Telephone Encounter - Johana Dorantes LPN - 08/16/2022 11:44 AM EDT Care Gaps Comprehensive Care Outreach Last Office/Telemedicine Visit: 05/10/2022 (in office), Visit date not found (telemedicine) Last Office/Telemedine Visit Annual Wellness: Next Office Visit: 08/25/2022 Hemoglobin AIC Results: Lab Results Component Value Date/Time HEMOGLOBIN A1C - [facility] 5.6 08/19/2021 12:19 PM Reviewed Health Maintenance below: Care needs Care needs Last completed Due next Zoster (Shingles) Vaccine (1 of 2) --- Never done Bone Density 02/07/2017 02/08/2020 COVID-19 Vaccine (2 - Booster for Pierce series) 11/23/2021 01/18/2022 Flu vaccine (recommended) (1) --- Never done Pneumonia vaccine (2 - PCV) 11/04/2021 11/04/2022 Diphtheria, tetanus & pertussis vaccines (3 - Td or Tdap) 07/20/2022 07/20/2032 Care Gap Outreach Action Taken: Left message and Myportal message sent AWV documented in this encounter Plan of Treatment Upcoming Encounters Date Type Specialty Care Team Description 08/25/2022 Office Visit Family Medicine [place], DAVID Cortez [address] [place] [address] 08/29/2022 Hospital Encounter Surgery Sharon Miller MD [address] [place] [address] 08/29/2022 Surgery Surgery Sharon Miller MD [address] [place] [address] EXCISION PAROTID TOTAL WITH DISSECTION FACIAL NERVE 11/03/2022 Nurse Only Ancillary Nurse Fred Annual Wellness, RN [address] [place] [address] 11/07/2022 Appointment Radiology 11/07/2022 Appointment Radiology Scheduled Orders Name Type Priority Associated Diagnoses Orde r Schedule DEXA SCAN/BONE MINERAL AXIAL Medical Imaging Routine Osteoporosis Expected: 08/18/2022, Expires: 08/18/2023 Scheduled Procedures Name Priority Associated Diagnoses Date/Ti me EXCISION PAROTID TOTAL WITH DISSECTION FACIAL NERVE Pleomorphic adenoma of parotid gland 08/29/2022 10:32 AM EDT Health Maintenance Due Date Last Done Comments Zoster Vaccines (1 of 2) 1995 Depression Screening, Annual for Pts 12 and Over 07/27/2019 07/27/2018 DXA Scan 02/08/2020 02/07/2017, 01/29, 02/20/2014, Additional history exists COVID-19 Vaccine (2 - Booster for Pierce series) 01/18/2022 11/23/2021 Influenza Vaccine (FLU shot) (#1) 2022 Pneumococcal Vaccine: 65+ Years (2 - PCV) 11/04/2022 11/04/2021 DTaP,Tdap,and Td Vaccines (3 - Td or Tdap) 07/20/2032 07/20/2022, 08/18/2006, 08/18/2006, Additional history exists GARDASIL-HPV IMMUNIZATION SERIES Aged Out No longer eligible based on patient's age to complete this topic Hepatitis B Aged Out No longer eligi ble based on patient's age to complete this topic MENINGOCOCCAL (MENACTRA/MENVEO) Aged Out No longer eligible based on patient's age to complete this topic documented as of this encounter Implants Not on filedocumented as of this encounter Visit Diagnoses Diagnosis Osteoporosis- Primary Osteoporosis, unspecified 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 documented in this encounter Advance Directives Documents on File Type Date Recorded Patient 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 Trading Analyst Expl anation Advanced Directive service a donovan default Advanced Directive service a donovan default Advanced Directive Advanced Directive Advanced Directive Advanced Directive Advanced Directive Advanced Directive Advanced Directive Advanced Directive Advanced Directive Advanced Directive Advanced Directive Advanced Directive Advanced Directive Advanced Directive Advanced Directive Advanced Directive Advanced Directive Advanced Directive Advanced Directive Advanced Directive Advanced Directive Advanced Directive Advanced Directive Advanced Directive Advanced Directive Advanced Directive Advanced Directive Advanced Directive Advanced Directive Advanced Directive Advanced Directive Care Teams Stock Raiser Relationship Specialty Start Date End Date Jamie Wynn DO [address] [place] [address] PCP - General Family Medicine 10/10/16 documented as of this encounter
--- OUTSIDE RECORDS SUMMARY | 2023-07-05 14:58 | External Medical Summary | Summary of Care ---
Author Name Unknown Organization [place] [address] Care Team Providers Care Carpentry Foreman Name Role Phone Jamie Wynn DO Primary Care Provider [phone] Encounter Details Date Type Department Care Team Description 11/18/2022 Orders Only [facility], Fred [address] [place] [address] Jamie Wynn DO [address] [place] [address] Allergies No known active allergiesdocumented as of this encounter (statuses as of 11/18/2022) Medications Medication Sig Dispensed Refills Start Date End Date Status Vitamin D 25 MCG (1000 UT) Oral Tablet Take by mouth . 0 Acti ve Zoster Vac Recomb Adjuvanted 50 MCG/0.5ML Intramuscular Suspension Reconstituted (Shingrix)Indications:N eed for vaccination for zoster Inject 0.5 mL into a large muscle now and repeat dose in 60 to 180 days 1 Each 0 08/25/2022 Active oxyCODONE HCl 5 MG Oral Tablet (Oxy IR) Take 1 Tablet by mouth every 4 hours as needed for Pain, Severe or Pain, Moderate. 5 Tablet 0 11/17/2022 Active documented as of this encounter (statuses as of 11/18/2022) Active Problems Problem Noted Date Cataract 08/08/2016 [...] as of this encounter (statuses as of 11/18/2022) Resolved Problems Problem Noted Date Resolved Date Encounter for examination fo r normal comparison and control in clinical research program 11/21/2017 06/01/2020 Overview: DO NOT DELETE [facility] DETECT Study: Project # [id number], Chemical Dependency Nurse: Khadar Dodd, PhD. SUMMARY: Goal: Establish test [...] contact study staff at ; after hours Chemical Dependency Nurse via the [facility] hospital flame cutting machine operator . Please contact study team before resolving/deleting from patients problem list. Study phone number: [phone]. Diagnosis changed due to Research Module. Go to Snapshot for study details. Encounter for examination fo r normal comparison and control in clinical research program 11/21/2017 06/30/2022 Overview: DO NOT DELETE - [facility] DETECT Study: Project # [id number], Chemical Dependency Nurse: Mykel Gill, MS, MPH. SUMMARY: Goal: Establish [...] contact study staff at ; after hours Chemical Dependency Nurse via the [facility] hospital flame cutting machine operator . - Please contact study team before resolving/deleting from patients problem list. Study phone number: [phone]. Diagnosis changed due to Research Module. Go to Snapshot for study details. documented as of this encounter (statuses as of 11/18/2022) Immunizations Name Administration Dates Next Due Covid-19 [...] Encounters Date Type Specialty Care Team Description 11/25/2022 Office Visit [facility] [address] [facility] [address] 08/31/2023 Office Visit Family Medicine DepZofia hughes CRNP [address] [facility] [place] [address] Health Maintenance Due Date Last Done Comments [...] Procedure Name Priority Date/Time Associated Diagnosis Comments CHEMISTRY-OUTSIDE Routine 10/17/2022 documented in this encounter Results * (ABNORMAL) CHEMISTRY-OUTSIDE (10/17/2022) CREATININE-OUTSID E LAB OUTSIDE LAB (SEE SCANNED REPORT) EGFR-OUTSIDE LAB OUT SIDE LAB (SEE SCANNED REPORT) POTASSIUM-OUTSIDE LAB OUTSIDE LAB (SEE SCANNED REPORT) GLUCOSE-OUTSIDE LAB 96 61 - 99 MG/DL OUTSIDE LAB (SEE SCANNED REPORT) HOURS FASTING OUTSID E LAB (SEE SCANNED REPORT) TRIGLYCERIDES-OUT SIDE LAB 105 <150 MG/DL OUTSIDE LAB (SEE SCANNED REPORT) CHOLESTEROL-OUTSI DE LAB 233(A) <200 MG/DL OUTSIDE LAB (SEE SCANNED REPORT) HDL-OUTSIDE LAB 72 >40 MG/DL OUTS SAM LAB (SEE SCANNED REPORT) CHOL/HDL RATIO-OUTSIDE LAB OUTSIDE LA B (SEE SCANNED REPORT) LDL (CALCULATED)-OUTS SAM LAB 140(A) <100 MG/DL OUTSIDE LAB (SEE SCANNED REPORT) LDL (DIRECT MEASURE)-OUTSIDE LAB OUTSIDE LAB (SEE SCANNED REPORT) HEMOGLOBIN, W2O-SULZMJX LAB OUTSIDE LAB (SEE SCANNED REPORT) PHOSPHORUS-OUTSID E LAB OUTSIDE LAB (SEE SCANNED REPORT) PTH-OUTSIDE LAB OUTS SAM LAB (SEE SCANNED REPORT) MICROALBUMIN RATIO-OUTSIDE LAB OUTSIDE LA B (SEE SCANNED REPORT) PROTEIN, UA-OUTSIDE LAB OUTSIDE LAB (SEE SCANNED REPORT) HEMOGLOBIN-OUTSID E LAB OUTSIDE LAB (SEE SCANNED REPORT) CHEMISTRY COMMENT-OUTSIDE LAB OUTSIDE LAB (SEE SCANNED REPORT) Comment:SEE SCAN- LIFE LINE - WELLNESS SCREEN- LIPID, GLUCOSE, CRP 10/17/2022 History Per Patient LABORATORY OUTSIDE LAB (SEE SCANNED REPORT) documented in this encounter Advance Directives Documents on File Type Date Recorded Patient Produce Specialist Expl anation Advance Directives and Living Will 06/24/2022 ADVANCE DIRECTIVE / LIVING WILL Power of Administrative Director 06/24/2022 POWER OF A TTORNEY Care Teams Carpentry Foreman Relationship Specialty Start Date End Date Jamie Wynn DO [address] [place] [address] PCP - General Family Medicine 08/08/16 documented as of this encounter
--- OUTSIDE RECORDS SUMMARY | 2023-07-05 14:58 | External Medical Summary | Summary of Care ---
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] Procedures REMOVAL OF PAROTID GLAND/TUMOR EXCISION PAROTID TOTAL WITH DISSECTION FACIAL NERVE Referral ID Status Reason Start Date Expiration Date Visits Re quested Visits Authorized [id number] Encounter Details Date Type Department Care Team Description 11/17/2022 Hospital Encounter [facility], OPERATING ROOM [facility], [facility] [address] [place] [address] Sharon Miller MD [address], [place] [id number] Allergies No known active allergiesdocumented as of this encounter (statuses as of 11/17/2022) Medications Medication Sig Dispensed Refills Start Date End Date Status oxyCODONE HCl 5 MG Oral Tablet (Oxy IR) Take 1 Tablet by mouth every 4 hours as needed for Pain, Severe or Pain, Moderate. 5 Tablet 0 11/17/2022 Active documented as of this encounter (statuses as of 11/17/2022) Active Problems Problem Noted Date Cataract 08/08/2016 [...] as of this encounter (statuses as of 11/17/2022) Resolved Problems Problem Noted Date Resolved Date Encounter for examination fo r normal comparison and control in clinical research program 11/21/2017 06/01/2020 Overview: DO NOT DELETE [facility] DETECT Study: Project # [id number], Regional Account Manager: Khadar Dodd, PhD. SUMMARY: Goal: [...] contact study staff at ; after hours Regional Account Manager via the [facility] hospital finishing tunnel operator . Please contact study team before resolving/deleting from patients problem list. Study phone number: [phone]. Diagnosis changed due to Research Module. Go to Snapshot for study details. Encounter for examination fo r normal comparison and control in clinical research program 11/21/2017 06/30/2022 Overview: DO NOT DELETE - [facility] DETECT Study: Project # [id number], Regional Account Manager: Mykel Gill, MS, MPH. SUMMARY: [...] contact study staff at ; after hours Regional Account Manager via the [facility] hospital finishing tunnel operator . - Please contact study team before resolving/deleting from patients problem list. Study phone number: [phone]. Diagnosis changed due to Research Module. Go to Snapshot for study details. documented as of this encounter (statuses as of 11/17/2022) Immunizations Name Administration Dates Next Due Covid-19 [...] Sign Reading Time Taken Comments Blood Pressure 139/67 11/17/2022 10:00 AM EST Pulse 59 11/17/2022 10:00 AM EST Temperature 36 C (96.8 F) 11/17/2022 9:45 AM EST Respiratory Rate 14 11/17/2022 10:0 0 AM EST Oxygen Saturation 99% 11/17/2022 10: 00 AM EST Inhaled Oxygen Concentration - - Weight 50.3 kg (110 lb 12.8 oz) 11/17/2022 6:00 AM EST Height 160 cm (5' 3") 11/17/2022 6:00 AM EST Body Mass Index 19.63 11/17/2022 6:00 AM EST documented in this [...] No 09/02/2021 documented as of this encounter Discharge Instructions * Discharge Instr - AVS* Yonatan Knott MD - 11/17/2022 9:15 AM EST Discharge Date: 11/17/[address] Miller of the department of ENT at [phone] during business hours for any questions or test results. For after-hours emergencies call [phone] and have your doctor paged. The information below provides you with the instructions and the list of medications you need to betaking following discharge from the hospital. If you have any questions, please ask before leaving.Please carry this letter with you when you see your doctor in the clinic. If you have questions, you can reach us at the numbers above. Diet: Start with clear liquids (jello, tea, apple juice), avoid dairy products (milk, cheese, pudding, ice cream) and fried, greasy foods. Advance to unrestricted diet as tolerated. If nausea should occur, have clear liquids only until soft foods can be tolerated. Activity: A responsible adult must be with the patient for 24 hours after surgery. Rest today and tomorrow, and then increase activity as tolerated. No strenuous activity for 2 weeks. See special instructions for further details. Driving: No driving while on narcotic pain medications Date you may return to work or school: One week These follow-up appointments have been scheduled or are in the process of being scheduled. If you have questions about your appointments, please call . When asked to state the name of the physician, please say "Hospital Discharge". Follow up in [address] Miller Special Instructions: Post-Op Instructions - Parotid surgery Contact our clinic at the number listed above for any of the following concerns: Bleeding in Your Neck- Some bruising is normal but you should not have rapid or excess bruising andthis may be owing to bleeding in your neck. If this is severe or you are panicked owing to trouble breathing, sudden swelling in your throat, or are unable to swallow, call 911 immediately. Infection- If you have a temperature above 100.4F by mouth for 2 readings taken 4 hours apart, increased redness and/or warmth at the incision site, puslike drainage, or pain not relieved by pain pills, there may be an infection in your neck. Please call your the ENT clinic. Care for the Surgical Site You may shower, but try not to let the water run directly over your incision. If it gets damp, pat dry with a clean towel. Do NOT apply any ointment or lotion to the incision. Do NOT remove the surgical tape covering your incision. You will be provided with instructions on how to remove the tape gradually after your follow up appointment. documented in this encounter H&P Notes * Alexander Murrell MD - 11/17/2022 7:18 AM EST HISTORY & PHYSICAL - Otolaryngology - Head & Neck Surgery Service [facility]-[address] [address] History and Physical: Name: Reba Delaney Location: OR [facility] Date: 11/17/2022 Time: 7:18 AM CHIEF COMPLAINT: left facial mass HISTORY OF PRESENT ILLNESS: The patient presents today for scheduled surgery. She denies any changes to health since last clinic visit. Denies recent illness, or use of ASA, NSAID's, or any other Anticoagulants. 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 Cataract H26.9 Family hx-breast malignancy Z80.3 Family history of cardiovascular disease Z82.49 Hip joint replacement status Z96.649 Trigger finger of right thumb M65.311 Past Medical History: Diagnosis Date Diffuse cystic [...] node removal L neck PATH; BENIGN Otolaryngology [facility] Dr Rajput DENTAL SURGERY PROCEDURE NEC 2007 all teeth extracted TOTAL HIP REPLACEMENT & PROSTHESIS 2005 Dr Eller Review of patient's allergies indicates: No Known Allergies Social History Tobacco Use Smoking status: Every Day Packs/day: 0.50 Years: 30.00 Pack years: 15.00 Types: Cigarettes Smokeless tobacco: Never Substance Use Topics Alcohol use: Yes Comment: socially mixed drink whiskey club soda, Vaping/E-Cigarette Use Vaping/E-Cigarette Use Never User Vaping/E-Cigarette Substances Vaping/E-Cigarette Devices Family History Problem Relation Age of Onset Cancer Grandmother (Paternal) breast ca. dec'd Breast Cancer Grandmother (Paternal) Stroke Mother 86 CAD Heart Disorder Father 76 CAD dec'd Cancer Sister Bilateral Mastectomy REVIEW OF SYSTEMS: Negative for constitutional, eyes, cardiac, pulmonary, hepatic, renal, digestive, hematologic, epileptic, syncopal, musculo-skeletal, mental health, integumentary, hypertensive, lipid, arthritic, diabetic, thyroid or neurologic disorders (except as listed in the PMH and Problem List). PHYSICAL EXAM: Vital Signs: BP: 131 mmHg/71 mmHg (11/17/22625) Pulse: 69 (11/17/22625) Temp: 36.72 C (11/17/22625) Resp: 21 (11/17/22625) SpO2: 99 % (11/17/22625) General: Awake and alert. Face: Left tail of parotid mass noted on the left about 2.5-3.0 cm in greatest dimension. Lungs: The lungs were auscultated and breath sounds were clear bilaterally. Heart: Ausculation of the heart revealed a regular rate and rhythm without murmur. 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 Surgery was initially recommended but the patient was lost to follow up until now. - Ancef - SCDs - Proceed with left parotidectomy documented in this encounter Nursing Notes * Elizabeth Sinha RN - 11/17/2022 9:31 AM EST Dual Licensed Skin Assessment completed by self and Steven Jerry. The patient is/has a N/A Skin Breakdown (includes non blanchable erythema): Yes - Surgical/Procedural changes only. * Tri Jerry RN - 11/17/2022 6:40 AM EST Dual Licensed Skin Assessment completed by Steven Jerry RN and Laura Alexandra RN. The patient is/has a N/A Skin Breakdown (includes non blanchable erythema): No * Gabriela Arevalo RN - 11/15/2022 12:57 PM EST NO ANESTHESIA EVAL REQUESTED PER CASE DOCUMENTATION. Pre-operative chart review completed. Presurgery instructions sent to patient via [facility] message-no call made. PREOP PATIENT INFORMATION AND EDUCATION: MEDICATION INSTRUCTIONS: The day of surgery/procedure, you may TAKE the following medications with a sip of water up to 2 hours prior to your arrival time: Take no mediations morning of surgery AVOID/ DO NOT TAKE any medications the morning of surgery/procedure that are not listed above. STOP taking the following medications the noted number of days prior to surgery/procedure unless otherwise specified by your surgeon: Hold Vitamin D as of today. Please follow surgeon's instructions regarding use of Aspirin, Coumadin, Plavix, Eliquis, and any other blood thinner including NSAIDs (non-steroidal anti-inflammatory drugs, eg, Advil, Ibuprofen,Motrin, Aleve, Naproxen). 10 days prior to surgery/procedure Stop all Herbal supplements, Green Tea, Turmeric, Melatonin, CBD, THC, etc. Stop all Vitamins (including Vitamin E) 24 hours prior to surgery/procedure DO NOT consume any alcohol. DO NOT use medical marijuana. DO NOT smoke or use tobacco products of any kind after midnight prior to surgery. *Using any of these products may increase your risks of procedural complications. IF IT IS LESS THAN RECOMMENDED STOPPAGE TIME PLEASE STOP AT TIME OF NOTIFICATION. FASTING RECOMMENDATIONS: To reduce risk, it is important for all elective surgery patients to follow the specific fasting guidelines listed below. DO NOT EAT after midnight on the night prior to your surgery date. You are allowed to drink clear liquids up to two hours prior to arrival time to the hospital or surgery center. Examples of clear liquids include water, clear fruit juice without pulp, clear carbonated beverages, clear tea, and black coffee. Any drinks given by your surgical service take as directed. /pediatric patients who currently drink breast milk, formula, and non-human milk must not eat after midnight. These patients are allowed to drink only the liquids listed below up to two hours prior to arrival time to the hospital or surgery center: Ingested Material Minimum Fasting Time Clear liquid After midnight up to 2 hours prior to arrival time Breast milk Up to 4 hours prior to arrival time Infant formula Up to 6 hours prior to arrival time Non-human milk Up to 6 hours prior to arrival time THE DAY BEFORE YOUR SURGERY: -Drink plenty of fluid the day before your surgery. Contact your surgeon's office if you develop any of the following within 2 weeks of surgery: A cold Infection Fever Shingles Chicken pox or exposure to chicken pox Open areas such as scrapes, cuts, chin or other skin conditions Rashes GENERAL INSTRUCTIONS FOR PREPARING FOR SURGERY: BATHING INSTRUCTIONS: Bathe the evening prior to and the morning of surgery/procedure. Cleanse your body using ONLY anti-bacterial soap (eg, Dial, Safeguard) or any specific soap/cleansers and instructions provided by your surgeon (eg, Chlorhexidine). -You should brush your teeth the morning of surgery. Do NOT apply any lotions, powders, sprays, creams, oils, make-up, or deodorants after bathing. No hairspray, or nail cameroonian on fingers or toes. Day of surgery/procedure do not use tampons. If you wear contacts wear your eyeglasses if available otherwise bring your contact supplies with you to remove them prior to your surgery/procedure. If you wear glasses or dentures, please bring cases in which you can store them during your surgery. Please remove all piercings and jewelry and leave them at home. Wear comfortable and loose clothing. -Please leave all valuables at home. -If you use a CPAP and are staying overnight, please bring your mask and tubing with you to the hospital. -If you use an assistive mobility device (walker, cane, etc), please label it with your name and bring to hospital. -An escort stake driver is required if you are being discharged the same day of the surgery. You should have a responsible adult over the age of 18 [address] you home. This person should be present with youin the hospital at the time of discharge and for the first 24 hours after the surgery to support your needs. If you are taking a taxi home, you must have your responsible republican accompany you in the taxi ride home at the time of discharge. OR times subject to change. Please check voicemail messages the day/evening before your surgery forany updates. PRE-OP: You will be taken to the pre-op area where your vital signs (blood pressure, pulse and temperature)will be taken. Any preparations that need to be done will be done there. When it is time for your surgery, you will be taken to the operating room. PARENTS OF PEDIATRIC PATIENTS WILL BE ALLOWED TO STAY WITH THEIR CHILDREN UNTIL THEY ARE ESCORTED TO THE OPERATING ROOM OUTPATIENT SURGERY PATIENTS: After your surgery you will be taken to the Same Day Surgery Unit when you are awake and will go home from there. You will get instructions about your home care before you leave. Arrange to have someone drive you home from the hospital. You may not drive for 24 hours after anesthesia. You must havean adult stay with you at home for 24 hours after your operation. This is very important. If you are not able to comply with these guidelines, your Short Stay surgery cannot be done. ADMISSION PATIENTS: After your stay in the recovery area, you will be taken to your room. Your family may visit you in your room based on current visitation policy. If a next day discharge is expected, it is important to make arrangements for a stake driver to take you home. Please be aware our visitation policies are subject to change Professionals, attendants, caregivers or family members are allowable visitors for patients with intellectual, developmental or cognitive disabilities, communication barriers or behavioral concerns. Because patients' and families' needs vary, they will be taken into account when applying visitat ion restrictions. [facility]: Contact # [phone] Directions to Surgical Suite in from the Ladi Entrance The Surgical Waiting Room can be found in the Lobby of [facility]. Enter through Main Lobby Entrance and the Waiting Room is directly in front of you. Proceed to check in and give them your name. Directions to Surgical Suite from the East Entrance Enter the East entrance and follow the hallway to the J elevator. Take the J elevator up to Level 1. Continue down the long hallway to the main [facility] Lobby. The Surgical Waiting Room will be on your Right. Proceed to check in and give them your Name. Directions to Surgical Suite from the Parking Garage Enter the [facility] lobby and proceed down the riggs to the left. At the end of the riggs, turn right. Continue down the long hallway to the main [facility] Lobby. The Surgical Waiting Room will be on your Right. Proceed to check in and give them your Name. THANK YOU FOR CHOOSING [facility]! documented in this encounter OR Notes * OR Surgeon - Yonatan Knott MD - 11/17/2022 9:17 AM EST OPERATIVE RECORD [place], [place] [address] Reba Delaney MR # [id number] LOCATION: OR (Operating Room 18) SERVICE: Otolaryngology - Head & Neck Surgery - Facial Plastic Surgery DATE OF PROCEDURE: 11/17/2022 PRE-OP DIAGNOSIS: Left parotid mass, benign mixed tumor POST-OP DIAGNOSIS: Same PROCEDURE: Left parotidectomy with retrograde dissection of facial nerve Intraoperative facial nerve monitoring SURGEON: Nikhil Miller MD ASSISTANTS: Yonatan Knott MD ANESTHESIA: General endotracheal anesthesia OPERATIVE FINDINGS: 1) Left greater auricular nerve was identified and preserved 2) 3 cm left tail of parotid mass, soft and mobile, capsule was intact 3) Left marginal mandibular nerve and cervical facial nerve branches were identified with retrograde dissection and preserved 4) Face was confirmed to be working in PACU DRAINS and/or PACKS: None ESTIMATED BLOOD LOSS: 5 mL FLUIDS: 250 mL albumin URINE: none SPECIMEN(s) OBTAINED and DISPOSITION: Left parotid mass INDICATIONS & HISTORY: This is a 77 year old year old female with history of left tail of parotid mass which has been presented for over 10 years, 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 Morerecently it has increased in size. She presents today for scheduled surgery. DESCRIPTION OF OPERATION: A timeout was held and the patient was identified and the procedure verified. General anesthesia was induced and the patient was endotracheally intubated. The bed was turned 90 degrees and the patient was prepped and draped in the usual sterile fashion for parotidectomy. The facial nerve monitoring leads were connected and verified. The neck was examined and soft mobile tailof parotid mass was noted. An incision just below the parotid tail mass was then marked on left side and subsequently injected with 1% lidocaine with 1:100,000 epinephrine. After allowing the medication to take effect, the incision was carried down through skin and subcutaneous tissue with a #15 blade and down to the level of the platysma inferiorly in the neck. Superior and partial SMAS flaps were raised with a bovie. The greater auricular nerve was identified and preserved. These flaps were then retracted back with lonestar retractors. Dissection then proceeded along the angle of the mandible. The marginal mandibular nerve was identified with blunt dissection and then traced anteriorly and posteriorly. The nerve was confirmed with nerve monitor. The mass was inferior to the marginal mandibular nerve. The nerve was carefully dissected off the tumor, keeping the capsule intact. Next dissection proceeded inferiorly. The cervical branches of the facial nerve were identified and preserved. The nerves were dissected off the tumor inferiorly. The nerve was confirmed to be working with nerve monitor. Finally once the nerves were identified and kept safe, then tumor was carefully dissected off the tail of parotid, leaving a small cuff of parotid around the tumor. Once the specimen was dissected free, it was removed and sent to surgical pathology for permanent analysis. The neck was irrigated with sterile water and hemostasis was obtained. The incision was closed in amultilayer fashion, using interrupted 3-0 Vicryl to re- approximate the plastyma. Interrupted 3-0 Vicryl was also used for subcutaneous tissue. The skin was closed with dermabond and steri-strips. Thepatient was awoken, extubated and taken to PACU in stable condition, face was confirmed to be working in PACU. All counts were reported by nursing as correct at the conclusion of the procedure. DISPOSITION: The patient was transferred to the Post-Anesthesia Care Unit. APPARENT INTRAOPERATIVE COMPLICATIONS: None PATIENT CONDITION: Stable ATTESTATION: Dr. Miller was present for the entire case. Yonatan Knott MD Resident Physician Department of Otolaryngology Head & Neck Surgery Facial Plastic Surgery [address] [address] cc: Professional Reimbursement and Compliance documented in this encounter Plan of Treatment Upcoming Encounters Date Type Specialty Care Team Description 11/25/2022 Office Visit Otolaryngology Annika Morfin PA-C [address] [place] [address] 08/31/2023 Office Visit Family Medicine OsminoeZofia CRNP [address] [facility] [place] [address] Pending Results Name Type Priority Associated Diagnoses Date /Time SURGICAL PATHOLOGY Pathology Routine Pleomorphic adenoma of parotid gland 11/17/2022 8:32 AM EST Scheduled Orders Name Type Priority Associated Diagnoses Orde r Schedule SURGICAL PATHOLOGY Pathology Routine Pleomorphic adenoma of parotid gland Release Upon Ordering for 1 Occurrences starting 11/17/2022, 1 completed Scheduled Procedures Name Priority Associated Diagnoses Date/Ti me EXCISION PAROTID TOTAL WITH DISSECTION FACIAL NERVE Pleomorphic adenoma of parotid gland 11/17/2022 6:50 AM EST Health Maintenance Due Date Last Done Comments [...] Comments GLUCOSE METER, POINT OF CARE UZAIR 11/17/2022 6:31 AM EST documented in this encounter Results * GLUCOSE METER, POINT OF CARE (11/17/2022 6:31 AM EST) Glucose Meter 101 70 - 120 mg/dL 11/17/2022 6:35 AM EST [facility] [employer] Blood Whole blood specimen / Unknown 11/17/2022 6:31 AM EST 11/17/2022 6:34 AM EST Sharon Miller MD LAB POINT OF CAR E TEST DOCKED DEVICE UNSOLICITED RESULTS [facility] [employer] [facility] [address] [place] [address] documented in this encounter Visit Diagnoses Diagnosis 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 documented in this encounter Administered Medications Inactive Administered Medications - up to 3 most recent administrations Medication Order [facility] Action Action Date Dose Rate Site isolyte-S pH 7.4 infusion Intravenous, at 25 mL/hr, All Patients EXCEPT Dialysis patients Plasma-LYTE 148, isolyte-S, and isolyte-S pH 7.4 are considered equivalent - including for MAR barcode scanning., CONTINUOUS, Starting on Alexus 11/17/22 at 0700, Until Alexus 11/17/22 at 1440, Pre-Op lidocaine 1 % inj 1 mg 1 mg (0.1 mL), Percutaneous, ONCE PRN Other, Difficult IV starts requiring > 20 guage catheter and/ or by patient request, Starting on Alexus 11/17/22 at 0620, Until Alexus 11/17/22 at 1440, For 1 dose, Pre-Op documented in this encounter Active and Recently Administered Medications Times are shown in EST. Scheduled Medication Order 11/15/2022 11/16/2022 11/17/2022 ceFAZolin in dextrose (Ancef) ivpb 2 g (COMPLETED) 2 g, IV Piggyback, ONCALL, 1 dose, Starting on Alexus 11/17/22 at 0619, Until Alexus 11/17/22 at 0751 0751 (Given - Provid er: Prince Maddox Jr., [facility]) Continuous Medication Order 11/15/2022 11/16/2022 11/17/2022 isolyte-S pH 7.4 infusion Intravenous, at 25 mL/hr, All Patients EXCEPT Dialysis patients Plasma-LYTE 148, isolyte-S, and isolyte-S pH 7.4 are considered equivalent - including for MAR barcode scanning., CONTINUOUS, Starting on Alexus 11/17/22 at 0700, Until Alexus 11/17/22 at 1440, Pre-Op 0700 (Due) PRN Medication Order 11/15/2022 11/16/2022 11/17/2022 lidocaine 1 % inj 1 mg 1 mg (0.1 mL), Percutaneous, ONCE PRN Other, Difficult IV starts requiring > 20 guage catheter and/ or by patient request, Starting on Alexus 11/17/22 at 0620, Until Alexus 1/19/23 at 1440, For 1 dose, Pre-Op lidocaine-epinephrine 2 %-1:825531 inj (CANCELED) ONCE PRN INTRA PROCEDURE, Starting on Alexus 11/17/22 at 0807, Until Alexus 11/17/22 at 0857, Intra-Op 0807 (Given - Provid er: Yonatan Knott MD) sodium chloride IR 0.9 % irrigation (CANCELED) ONCE PRN INTRA PROCEDURE, Starting on Alexus 11/17/22 at 0809, Until Alexus 11/17/22 at 0857, Intra-Op 0809 (Given - Provid er: Yonatan Knott MD - Comment: prn on field) documented in this encounter Advance Directives Documents on File Type Date Recorded Patient Home Security Alarm Installer Expl anation Advance Directives and Living Will 06/24/2022 ADVANCE DIRECTIVE / LIVING WILL Power of Merchandise Carrier 06/24/2022 POWER OF A TTORNEY Care Teams Bi Specialist Relationship Specialty Start Date End Date Jamie Wynn, [address] [place] [address] PCP - General Family Medicine 08/08/16 documented as of this encounter
--- OUTSIDE RECORDS SUMMARY | 2023-07-05 14:58 | External Medical Summary | Summary of Care ---
Author Name Unknown Organization [place] [address] Care Team Providers Care Tariff Supervisor Name Role Phone Tianna Jamie Pritchett DO Primary Care Provider [phone] Reason for Visit * Reason Onset Date Comments Follow Up Immunizations 08/25/2022 Shingrix Encounter Details Date Type Department Care Team Description 08/25/2022 Office Visit [facility] Fred Costa [address] [place] [address] Zofia Woodward CRNP [address] [place] [address] Routine medical exam*; Need for vaccination for zoster; HTN, goal below 140/90; Family hx-breast malignancy; Parotid cyst Allergies No known active allergiesdocumented as of this encounter (statuses as of 08/25/2022) Medications Medication Sig Dispensed Refills Start Date End Date Status Vitamin D 25 MCG (1000 UT) Oral Tablet Take by mouth . 0 Active Zoster Vac Recomb Adjuvanted 50 MCG/0.5ML Intramuscular Suspension Reconstituted (Shingrix)Indicatio ns:Need for vaccination for zoster Inject 0.5 mL into a large muscle now and repeat dose in 60 to 180 days 1 Each 0 08/25/2022 Active VITAMIN E 400 UNIT PO CAPS DAILY 0 08/25/2022 Discontinued (Patient preference/d iscontinuati on) MULTI-VITAMIN PO TABS one daily 0 08/25/2022 Discontinued (Patient preference/d iscontinuati on) Furosemide 20 MG Oral Tablet (Lasix)Indications: Venous insufficiency One pill once A Day On mon only , for Water Pill , generic 30 Tablet 1 05/10/2022 08/25/2022 Discontinued (Patient preference/d iscontinuati on) Zoster Vac Recomb Adjuvanted 50 MCG/0.5ML Intramuscular Suspension Reconstituted (Shingrix)Indicatio ns:Need for vaccination for zoster Inject 0.5 mL into a large muscle now and repeat dose in 60 to 180 days 1 Each 0 08/25/2022 08/25/2022 Discontinued (Refill) documented as of this encounter (statuses as of 08/25/2022) Active Problems Problem Noted Date Cataract 08/08/2016 [...] as of this encounter (statuses as of 08/25/2022) Resolved Problems Problem Noted Date Resolved Date Encounter for examination fo r normal comparison and control in clinical research program 11/21/2017 06/01/2020 Overview: DO NOT DELETE [facility] DETECT Study: Project # [id number], Biological Photographer: Khadar Dodd, PhD. SUMMARY: Goal: Establish test [...] contact study staff at ; after hours Biological Photographer via the [facility] food cooking machine operator . Please contact study team before resolving/deleting from patients problem list. Study phone number: [phone]. Diagnosis changed due to Research Module. Go to Snapshot for study details. Encounter for examination fo r normal comparison and control in clinical research program 11/21/2017 06/30/2022 Overview: DO NOT DELETE - [facility] DETECT Study: Project # [id number], Biological Photographer: Mykel Gill, MS, MPH. SUMMARY: Goal: Establish [...] contact study staff at ; after hours Biological Photographer via the [facility] hospital food cooking machine operator . - Please contact study team before resolving/deleting from patients problem list. Study phone number: [phone]. Diagnosis changed due to Research Module. Go to [email or web address] for study details. documented as of this encounter (statuses as of 08/25/2022) Immunizations Name Administration Dates Next Due Covid-19 [...] Sign Reading Time Taken Comments Blood Pressure 138/72 08/25/2022 12:09 PM EDT Pulse - - Temperature - - Respiratory Rate 16 08/25/2022 12:09 PM EDT Oxygen Saturation - - Inhaled Oxygen Concentration [...] No 09/02/2021 documented as of this encounter Patient Instructions * Patient Instructions* DAVID Heller - 08/25/2022 12:13 PM EDT ~~PATIENT INSTRUCTIONS FOR SHINGRIX VACCINE~~ Possible side effects of Shingrix vaccine, (shingles), are usually mild and can include: 1. Soreness or redness at injection site 2. Low grade fever 3. Body aches You may use a fever / pain reducing medication as needed for these symptoms. LET YOUR DOCTOR KNOW IMMEDIATELY IF YOU HAVE DIFFICULTY BREATHING OR SWALLOWING, EXPERIENCE ITCHINGOF FEET OR HANDS, HAVE SWELLING OF EYES, FACE OR INSIDE OF NOSE. ~~PATIENT INSTRUCTIONS FOR SHINGRIX VACCINE~~ Possible side effects of Shingrix vaccine, (shingles), are usually mild and can include: 1. Soreness or redness at injection site 2. Low grade fever 3. Body aches You may use a fever / pain reducing medication as needed for these symptoms. LET YOUR DOCTOR KNOW IMMEDIATELY IF YOU HAVE DIFFICULTY BREATHING OR SWALLOWING, EXPERIENCE ITCHINGOF FEET OR HANDS, HAVE SWELLING OF EYES, FACE OR INSIDE OF NOSE. ~~PATIENT INSTRUCTIONS FOR SHINGRIX VACCINE~~ Possible side effects of Shingrix vaccine, (shingles), are usually mild and can include: 1. Soreness or redness at injection site 2. Low grade fever 3. Body aches You may use a fever / pain reducing medication as needed for these symptoms. LET YOUR DOCTOR KNOW IMMEDIATELY IF YOU HAVE DIFFICULTY BREATHING OR SWALLOWING, EXPERIENCE ITCHINGOF FEET OR HANDS, HAVE SWELLING OF EYES, FACE OR INSIDE OF NOSE. ~~PATIENT INSTRUCTIONS FOR SHINGRIX VACCINE~~ Possible side effects of Shingrix vaccine, (shingles), are usually mild and can include: 1. Soreness or redness at injection site 2. Low grade fever 3. Body aches You may use a fever / pain reducing medication as needed for these symptoms. LET YOUR DOCTOR KNOW IMMEDIATELY IF YOU HAVE DIFFICULTY BREATHING OR SWALLOWING, EXPERIENCE ITCHINGOF FEET OR HANDS, HAVE SWELLING OF EYES, FACE OR INSIDE OF NOSE. documented in this encounter Progress Notes * Sulma Mayer LPN - 08/25/2022 12:24 PM EDT Does the patient have active shingles? No If, yes, patient must wait to receive vaccine till after rash is gone. Does the patient have an illness today with a fever more than 101?F? No Has the patient ever had a serious allergic reaction after receiving a vaccination? No Has the patient had a blood test showing they are not immune to Chicken Pox (rare)? No If yes, should get Chicken pox vaccine instead of shingrix. Verified patient has prescription/drug coverage. Patient has been informed that [employer] copays are close to $0. In most cases copays will be around $10. The maximum co-pay patients may get could as high as $200. Yes Per K Jed 0 dollar copay Shingrix Vaccine Information Sheet has been provided. Sulma Mayer LPN 08/25/2022 12:24 PM IMMUNIZATION ADMINISTRATION DOCUMENTATION * DAVID Heller - 08/25/2022 12:03 PM EDT Subjective: Reba Delaney is a 77 year old female. Chief Complaint Patient presents with Follow Up Immunizations Shingrix HPI: ROUTINE EXAM Presents by self, masked, no covid sx Had one covid booster Does NOT want any more Nursing Notes: Sulma Mayer LPN 08/25/22 1130 Signed Here for follow up, states has had issues with vaginal discharge, but not having currently Patient Active Problem List Diagnosis Code DIFFUS [...] Adjuvanted 50 MCG/0.5ML Intramuscular Suspension Reconstituted (Shingrix) Inject 0.5 mL into a large muscle now and repeat dose in 60 to 180 days 1 Each 0 No current facility-administered medications for this visit. Review of patient's allergies indicates: No Known Allergies OBJECTIVE: BP 138/72 (BP Site: Right Arm, BP Position: Sitting, BP Cuff Size: Regular) | Resp 16 Estimated body mass index is 20.19 kg/m as calculated from the following: Height as of 05/10/22: 1.6 m (5' 3"). Weight as of 06/14/22: 51.7 kg (114 lb). BP Readings from Last 3 Encounters: 08/25/22 138/72 06/14/22 184/69 05/10/22 128/74 Wt Readings from Last 3 Encounters: 06/14/22 51.7 kg (114 lb) 05/10/22 52.4 kg (115 lb 8 oz) 05/04/22 52.6 kg (116 lb) ROS: See HPI No fevers No resp issues No chest pains or palpitations No GI issues, Daily BM No vaginal discharge cleared up on own No skin problems Mammogram ordered for future denies any masses nipple discharge Dexa is also scheduled Left parotidectomy scheduled 10/06 with otolaryngology- "unsure if [place] am going [place] have this [place]" Will do last shigles vaccine today staff checking cost prior to PHYSICAL EXAM: General: alert, healthy, no distress, comfortable, cooperative and older female Head: Normocephalic, No masses, lesions, tenderness or abnormalities Eye Exam: PERRLA, conjunctiva are pink and non-injected, sclera clear Ears: External ears normal, Canals clear, TM's Normal Nose: no sinus tenderness Neck: supple, no adenopathy, no bruits, thyroid normal size, non-tender, without nodularity + palpable mass left side jaw, approx 3 cm in diameter Lymph: no palpable lymphadenopathy, anterior cervical , posterior cervical Heart: regular rate & rhythm, no murmur and no gallops Lungs: chest symmetric with normal AP diameter, no chest deformities noted, no chest wall tenderness, lungs clear to auscultation Pulses: radial=2/4, carotid=2/4 w/o bruits, posterior tibial=2/4 Back: no costovertebral angle tenderness Neuro Exam: alert & oriented x 3 with fluent speech, gait normal Skin: skin color, texture, turgor are normal, no rashes or significant lesions ASSESSMENT/Plan Routine medical exam (Primary) Need for vaccination for zoster - Zoster Vac Recomb Adjuvanted 50 MCG/0.5ML Intramuscular Suspension Reconstituted (Shingrix); Inject 0.5 mL into a large muscle now and repeat dose in 60 to 180 days - ZOSTER VACCINE RECOMB, 2 DOSE, IM (SHINGRIX) HTN, goal below 140/90 below goal today Currently not on any medications for HTN Family hx-breast malignancy Future mammogram scheduled Parotid cyst Surgery scheduled Follow Up: Return in about 1 year (around 08/25/2023) for routine. | For: routine The above was discussed and understanding was expressed. DAVID Baker, I will inform you via MyG of any tests results Does the patient have active shingles? No If, yes, patient must wait to receive vaccine till after rash is gone. Does the patient have an illness today with a fever more than 101?F? No Has the patient ever had a serious allergic reaction after receiving a vaccination? No Has the patient had a blood test showing they are not immune to Chicken Pox (rare)? No If yes, should get Chicken pox vaccine instead of shingrix. Verified patient has prescription/drug coverage. Patient has been informed that [employer] copays are close to $0. In most cases copays will be around $10. The maximum co-pay patients may get could as high as $200. yes Shingrix Vaccine Information Sheet has been provided. DAVID Baker 08/25/2022 12:13 PM I documented in this encounter Nursing Notes * Sulma Mayer LPN - 08/25/2022 11:27 AM EDT Here for follow up, states has had issues with vaginal discharge, but not having currently documented in this encounter Plan of Treatment Upcoming Encounters Date Type Specialty Care Team Description 10/06/2022 Hospital Encounter Surgery Sharon Miller MD [address] [place] [address] 10/06/2022 Surgery Surgery Sharon Miller MD [address] [place] [address] EXCISION PAROTID TOTAL WITH DISSECTION FACIAL NERVE 11/03/2022 Nurse Only Ancillary Nurse Fred Annual Wellness, RN [address] [place] [address] 11/07/2022 Appointment Radiology 11/07/2022 Appointment Radiology 08/31/2023 Office Visit Family Medicine [place], DAVID Cortez [address] [place] [address] Scheduled Procedures Name Priority Associated Diagnoses Date/Ti me EXCISION PAROTID TOTAL WITH DISSECTION FACIAL NERVE Pleomorphic adenoma of parotid gland 10/06/2022 12:40 PM EST Health Maintenance Due Date Last Done Comments Depression Screening, Annual for Pts 12 and [...] as of this encounter Visit Diagnoses Diagnosis Routine medical exam- Primary Routine general medical examination at a health care facility Need for vaccination for zoster Need for prophylactic vaccination and inoculation against other viral diseases HTN, goal below 140/90 Unspecified essential hypertension Family hx-breast malignancy Family history of malignant neoplasm of breast Parotid cyst 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
--- OUTSIDE RECORDS SUMMARY | 2023-07-05 14:58 | External Medical Summary ---
Author Name Unknown Address Unknown Organization : Laboratory Report Ordering Provider Test Date Status SUZANNA GHOSH 11/17/2022 06:31:02 Final Observation Date Value Abnormality Reference (Units ) Status Glucose Point of Care 11/17/2022 06:31:02 101 70-120 (mg/dL) Final Performing Location
--- OUTSIDE RECORDS SUMMARY | 2023-07-05 14:58 | External Medical Summary | Summary of Care ---
Author Name Unknown Organization [facility] [place] [address] Care Team Providers Care Sane Rn Name Role Phone GladysJamie ash Primary Care Provider [phone] Encounter Details Date Type Department Care Team Description 11/07/2022 Hospital Encounter Radiology, [facility] [address] [place] [address] Arrived Allergies No known active allergiesdocumented as of this encounter (statuses as of 11/08/2022) Medications Medication Sig Dispensed Refills Start Date End Date Status Vitamin D 25 MCG (1000 UT) Oral Tablet Take by mouth . 0 Acti ve Zoster Vac Recomb Adjuvanted 50 MCG/0.5ML Intramuscular Suspension Reconstituted (Shingrix)Indications:Ne ed for vaccination for zoster Inject 0.5 mL into a large muscle now and repeat dose in 60 to 180 days 1 Each 0 08/25/2022 Active documented as of this encounter (statuses as of 11/08/2022) Active Problems Problem Noted Date Cataract 08/08/2016 [...] as of this encounter (statuses as of 11/08/2022) Resolved Problems Problem Noted Date Resolved Date Encounter for examination fo r normal comparison and control in clinical research program 11/21/2017 06/01/2020 Overview: DO NOT DELETE [facility] DETECT Study: Project # [id number], : Khadar Dodd, PhD. SUMMARY: Goal: Establish test [...] contact study staff at ; after hours via the [facility] hospital small lot operator . Please contact study team before resolving/deleting from patients problem list. Study phone number: [phone]. Diagnosis changed due to Research Module. Go to Snapshot for study details. Encounter for examination fo r normal comparison and control in clinical research program 11/21/2017 06/30/2022 Overview: DO NOT DELETE - [employer] DETECT Study: Project # [id number], : Mykel Gill, MS, MPH. SUMMARY: Goal: Establish [...] contact study staff at ; after hours via the [facility] hospital small lot operator . - Please contact study team before resolving/deleting from patients problem list. Study phone number: [phone]. Diagnosis changed due to Research Module. Go to Snapshot for study details. documented as of this encounter (statuses as of 11/08/2022) Immunizations Name Administration Dates Next Due Covid-19 [...] Encounters Date Type Specialty Care Team Description 11/17/2022 Hospital Encounter Surgery Sharon Miller MD [address] [facility] [place] [address] 11/17/2022 Surgery Surgery Sharon Miller MD [address] [place] [facility] [place] [place] [address] EXCISION PAROTID TOTAL WITH DISSECTION FACIAL NERVE 08/31/2023 Office Visit Family Medicine [place], DAVID Cortez [address] [facility] [place] [address] Pending Results Name Type Priority Associated Diagnoses Date /Time MAMMOGRAM SCREENING JOSEMANUEL BILATERAL Medical Imaging Routine Encounter for screening mammogram for malignant neoplasm of breast 11/07/2022 11:08 AM EST Scheduled Orders Name Type Priority Associated Diagnoses Orde r Schedule MAMMOGRAM SCREENING JOSEMANUEL BILATERAL Medical Imaging Routine Encounter for screening mammogram for malignant neoplasm of breast 1 Occurrences starting 11/07/2022 until 11/07/2022 Scheduled Procedures Name Priority Associated Diagnoses Date/Ti me EXCISION PAROTID TOTAL WITH DISSECTION FACIAL NERVE Pleomorphic adenoma of parotid gland 11/17/2022 7:30 AM EST Health Maintenance Due Date Last [...] as of this encounter Visit Diagnoses Diagnosis Encounter for screening mammogram for malignant neoplasm of breast Other screening mammogram 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
--- OUTSIDE RECORDS SUMMARY | 2023-07-05 14:58 | External Medical Summary | Summary of Care ---
Author Name Unknown Organization [place] [address] Care Team Providers Care Deep Fat Cook Fry Name Role Phone GladysJamie ash Yarely NAIK Primary Care Provider [phone] Reason for Visit * Reason Onset Date Comments Surgery 08/18/2022 Encounter Details Date Type Department Care Team Description 08/18/2022 Telephone Otolaryngology/Head & Neck/Facial Plastic Surgery [address], [place] [id number] Sharon Miller MD [address] [place], [place] [id number] Surgery Allergies No known active allergiesdocumented as of this encounter (statuses as of 08/22/2022) Medications Medication Sig Dispensed Refills Start Date End Date Status VITAMIN E 400 UNIT PO CAPS DAILY 0 Active MULTI-VITAMIN PO TABS one daily 0 Act lilly Furosemide 20 MG Oral Tablet (Lasix)Indications:Wade ous insufficiency One pill once A Day On mon only , for Water Pill , generic 30 Tablet 1 05/10/2022 Active documented as of this encounter (statuses as of 08/22/2022) Active Problems Problem Noted Date Cataract 08/08/2016 [...] as of this encounter (statuses as of 08/22/2022) Resolved Problems Problem Noted Date Resolved Date Encounter for examination fo r normal comparison and control in clinical research program 11/21/2017 06/01/2020 Overview: DO NOT DELETE [facility] DETECT Study: Project # [id number], Sliding Joint Maker: Khadar Dodd, PhD. SUMMARY: Goal: Establish [...] contact study staff at ; after hours Sliding Joint Maker via the [facility] hospital jigger operator . Please contact study team before resolving/deleting from patients problem list. Study phone number: [phone]. Diagnosis changed due to Research Module. Go to Snapshot for study details. Encounter for examination fo r normal comparison and control in clinical research program 11/21/2017 06/30/2022 Overview: DO NOT DELETE - [facility] DETECT Study: Project # [id number], Sliding Joint Maker: Mykel Gill, MS, MPH. SUMMARY: Goal: [...] contact study staff at ; after hours Sliding Joint Maker via the [facility] hospital jigger operator . - Please contact study team before resolving/deleting from patients problem list. Study phone number: [phone]. Diagnosis changed due to Research Module. Go to Snapshot for study details. documented as of this encounter (statuses as of 08/22/2022) Immunizations Name Administration Dates Next Due Covid-19 [...] Miscellaneous Notes * Telephone Encounter - KRISTA Fitzgerald - 08/22/2022 2:07 PM EDT Patient returned call and 09/15 would not work with holiday around the corner. 10/06 is the new date * Telephone Encounter - KRISTA Fitzgerald - 08/18/2022 12:45 PM EDT LM For patient as we need to reschedule her surgery on 08/29 I have made her aware on message that I will place her on 09/15 and if that date does not work we can change it. Requested her to call back. documented in this encounter Plan of Treatment Upcoming Encounters Date Type Specialty Care Team Description 08/25/2022 Office Visit Family Medicine [place], DAVID Cortez [address] [facility] [place] [address] 10/06/2022 Hospital Encounter Surgery Sharon Miller MD [address] [place] [address] 10/06/2022 Surgery Surgery Sharon Miller MD [address] [place] [address] EXCISION PAROTID TOTAL WITH DISSECTION FACIAL NERVE 11/03/2022 Nurse Only Ancillary Nurse Fred [facility]ness, RN [address] [place] [address] 11/07/2022 Appointment Radiology 11/07/2022 Appointment Radiology Scheduled Procedures Name Priority Associated Diagnoses Date/Ti [...] Documents on File Type Date Recorded Patient Managed Care Manager Expl anation Advanced Directive service a donovan [...] Directive Advanced Directive Advanced Directive Care Teams Deep Fat Cook Fry Relationship Specialty Start Date End Date Jamie Wynn DO [address] [place] [address] PCP - General Family Medicine 08/08/16 documented as of this encounter
--- OUTSIDE RECORDS SUMMARY | 2023-07-05 14:58 | External Medical Summary | Summary of Care ---
Author Name Unknown Organization [place] [address] Care Team Providers Care Potato Seed Cutter Name Role Phone GladysJamie ash Primary Care Provider +1- [phone] Reason for Visit * Reason Onset Date Comments Surgery 09/28/2022 Rescheduling ayla kathleen Encounter Details Date Type Department Care Team Description 09/28/2022 Telephone Otolaryngology/Head & Neck/Facial Plastic Surgery [address] [place] [address] Sharon Miller MD [address] [place], [place] [id number] Surgery (Rescheduling surgery) Allergies No known active allergiesdocumented as of this encounter (statuses as of 09/28/2022) Medications Medication Sig Dispensed Refills Start Date [...] as of this encounter (statuses as of 09/28/2022) Active Problems Problem Noted Date Cataract 08/08/2016 [...] as of this encounter (statuses as of 09/28/2022) Resolved Problems Problem Noted Date Resolved Date Encounter for examination fo r normal comparison and control in clinical research program 11/21/2017 06/01/2020 Overview: DO NOT DELETE [facility] Department DETECT Study: Project # [id number], Form Builder: Khadar Dodd, PhD. SUMMARY: Goal: Establish test [...] study staff at ; after hours Form Builder via the [facility] hospital quarry equipment operator . Please contact study team before resolving/deleting from patients problem list. Study phone number: [phone]. Diagnosis changed due to Research Module. Go to Snapshot for study details. Encounter for examination fo r normal comparison and control in clinical research program 11/21/2017 06/30/2022 Overview: DO NOT DELETE [facility] Department DETECT Study: Project # [id number], Form Builder: Mykel Gill, MS, MPH. SUMMARY: Goal: Establish [...] study staff at ; after hours Form Builder via the [facility] hospital quarry equipment operator . - Please contact study team before resolving/deleting from patients problem list. Study phone number: [phone]. Diagnosis changed due to Research Module. Go to Snapshot for study details. documented as of this encounter (statuses as of 09/28/2022) Immunizations Name Administration Dates Next Due Covid-19 [...] * Telephone Encounter - KRISTA Fitzgerald - 09/28/2022 9:03 AM EST Received VM patient requesting to move surgery so she will not be recovering over the hoildays . Rescheduled for 11/17/22 documented in this encounter Plan of Treatment Upcoming Encounters Date Type Specialty Care Team Description 10/06/2022 Hospital Encounter Surgery Sharon Miller MD [address] [facility] [address] 10/06/2022 Surgery Surgery Sharon Miller MD [address] [facility] [place] [address] EXCISION PAROTID TOTAL WITH DISSECTION FACIAL NERVE 11/03/2022 Nurse Only Ancillary Fred, Annual Wellness, RN [address] [place] [address] 11/07/2022 Appointment Radiology 11/07/2022 Appointment Radiology 08/31/2023 Office Visit Family Medicine Depoe, DAVID Cortez [address] [place] [address] Scheduled Procedures Name Priority Associated Diagnoses Date/Ti me EXCISION PAROTID TOTAL WITH DISSECTION FACIAL NERVE Pleomorphic adenoma of parotid gland 10/06/2022 12:40 PM EST Health Maintenance Due Date Last Done Comments Hepatitis B (1 of 3 - 3-dose series) 1945 DXA Scan 02/08/2020 02/07/2017, 01/29, 02/20/2014, Additional history exists COVID-19 Vaccine (2 - Booster for Pierce series) 01/18/2022 11/23/2021 Influenza Vaccine (FLU shot) (#1) 2022 Zoster Vaccines (2 of 2) 10/20/2022 08/25/2022 Pneumococcal Vaccine: 65+ Years (2 - PCV) 11/04/2022 11/04/2021 Depression Screening, Annual for Pts 12 and Over 08/25/2023 08/25/2022 DTaP,Tdap,and Td Vaccines (3 - Td or Tdap) 07/20/2032 07/20/2022, 08/18/2006, 08/18/2006, Additional history exists GARDASIL-HPV IMMUNIZATION SERIES Aged Out No longer eligible based on patient's age to complete this topic MENINGOCOCCAL (MENACTRA/MENVEO) Aged Out No longer eligible based on patient's age to complete this topic documented as of this encounter Medical Devices Not on filedocumented as of this encounter Care Teams Potato Seed Cutter Relationship Specialty Start Date End Date Jamie Wynn DO [address] [place] [address] PCP - General Family Medicine 08/08/16 documented as of this encounter
--- OUTSIDE RECORDS SUMMARY | 2023-07-05 14:58 | External Medical Summary | Summary of Care ---
Author Name Unknown Organization [place] [address] Care Team Providers Care Developer Trading Systems Name Role Phone GladysJamie sah Yarely NAIK Primary Care Provider +1- [phone] Reason for Visit * Reason Onset Date Comments Immunizations 07/20/2022 Encounter Details Date Type Department Care Team Description 07/20/2022 Nurse Only Ancillary, Fred [address] [place] [address] Fred Nurse Ancillary [address] [place] [address] Immunizations Allergies No known active allergiesdocumented as of this encounter (statuses as of 07/21/2022) Medications Medication Sig Dispensed Refills Start Date End Date Status VITAMIN E 400 UNIT PO CAPS DAILY 0 Active MULTI-VITAMIN PO TABS one daily 0 Act lilly Furosemide 20 MG Oral Tablet (Lasix)Indications:Wade ous insufficiency One pill once A Day On mon only , for Water Pill , generic 30 Tablet 1 05/10/2022 Active documented as of this encounter (statuses as of 07/21/2022) Active Problems Problem Noted Date Cataract 08/08/2016 [...] as of this encounter (statuses as of 07/21/2022) Resolved Problems Problem Noted Date Resolved Date Encounter for examination fo r normal comparison and control in clinical research program 11/21/2017 06/01/2020 Overview: DO NOT DELETE [facility] DETECT Study: Project # [id number], Elementary Educator: Khadar Dodd, PhD. SUMMARY: Goal: Establish test [...] contact study staff at ; after hours Elementary Educator via the [facility] hospital data coder operator . Please contact study team before resolving/deleting from patients problem list. Study phone number: [phone]. Diagnosis changed due to Research Module. Go to Snapshot for study details. Encounter for examination fo r normal comparison and control in clinical research program 11/21/2017 06/30/2022 Overview: DO NOT DELETE - [facility] DETECT Study: Project # [id number], Elementary Educator: Mykel Gill, MS, MPH. SUMMARY: Goal: Establish [...] contact study staff at ; after hours Elementary Educator via the [facility] hospital data coder operator . - Please contact study team before resolving/deleting from patients problem list. Study phone number: [phone]. Diagnosis changed due to Research Module. Go to Snapshot for study details. documented as of this encounter (statuses as of 07/21/2022) Immunizations Name Administration Dates Next Due Covid-19 [...] this encounter Patient Instructions * Patient Instructions* JULIA Hernandez - 07/20/2022 9:24 AM EDT ~~PATIENT INSTRUCTIONS FOR Td VACCINE~~ Possible side effects of Td vaccine, (tetanus shot), are usually mild and can include: 1. [...] documented in this encounter Progress Notes * JULIA Hernandez - 07/20/2022 9:24 AM EDT Immunization Administration Documentation Time Out Procedure Performed: Yes Patient Identified (Ask Name/Date of ): Yes Does the patient have a fever greater than 101 degrees today? No Patient allergic to latex? No VFC Stock: No Immunization(s) verified: Yes, Immunization Name: Td (Adult Preservative Free), VIS Sheet(s) given:Yes Verified Side and Site: Yes Verified Shot(s) with Parent(s)/Patient: Yes documented in this encounter Nursing Notes * JULIA Hernandez - 07/21/2022 10:07 AM EDT Pt stopped in for a tetanus shot due having an open scratch on right hand from her house cat. * Sulma Mayer LPN - 07/20/2022 9:35 AM EDT Pre-Administration Time Out Procedure Performed: Yes Patient Identified (Ask Name/Date of ): Yes Does the patient have a fever greater than 101 degrees today? No Patient allergic to latex? No Has the patient ever fainted after receiving an injection? No VFC Stock: No Immunization(s) verified: Yes, Immunization Name: Td (Adult Preservative Free), VIS Sheet(s) given:Yes Verified Side and Site: Yes Verified Shot(s) with Parent(s)/Patient: Yes documented in this encounter Plan of Treatment Upcoming Encounters Date Type Specialty Care Team Description 08/08/2022 Office Visit Dermatology Alla Crump MD [address] [place] [address] 08/25/2022 Office Visit Family Medicine Depoe, Zofia Brizuela, DAVID [address] [facility] [place] [address] 08/29/2022 Hospital Encounter Surgery Sharon Miller MD [address] [place] [address] 08/29/2022 Surgery Surgery Sharon Miller MD [address] [place], [place] [id number] EXCISION PAROTID TOTAL WITH DISSECTION FACIAL NERVE Scheduled Procedures Name Priority Associated Diagnoses Date/Ti [...] as of this encounter Visit Diagnoses Diagnosis Cat scratch- Primary Other and unspecified superficial injury of other, multiple, and unspecified sites, without mention of infection Need for prophylactic vaccination with tetanus-diphtheria (Td) 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
--- OUTSIDE RECORDS SUMMARY | 2023-07-05 14:58 | External Medical Summary | Summary of Care ---
Author Name Unknown Organization [place] [address] Care Team Providers Care Rectifier Operator Name Role Phone Jamie Wynn DO Primary Care Provider [phone]- [phone] Reason for Visit * Reason Onset Date Comments Health Maintenance 08/16/2022 Encounter Details Date Type Department Care Team Description 08/16/2022 Telephone [facility] Fred Costa [address] [place] [address] Jamie Wynn DO [address] [place] [address] Health Maintenance Allergies No known active allergiesdocumented as of this encounter (statuses as of 08/16/2022) Medications Medication Sig Dispensed Refills Start Date End Date Status VITAMIN E 400 UNIT PO CAPS DAILY 0 Active MULTI-VITAMIN PO TABS one daily 0 Act lilly Furosemide 20 MG Oral Tablet (Lasix)Indications:Wade ous insufficiency One pill once A Day On mon only , for Water Pill , generic 30 Tablet 1 05/10/2022 Active documented as of this encounter (statuses as of 08/16/2022) Active Problems Problem Noted Date Cataract 08/08/2016 [...] as of this encounter (statuses as of 08/16/2022) Resolved Problems Problem Noted Date Resolved Date Encounter for examination fo r normal comparison and control in clinical research program 11/21/2017 06/01/2020 Overview: DO NOT DELETE [facility] Department DETECT Study: Project # [id number], Health Care Consultant: Khadar Dodd, PhD. SUMMARY: Goal: Establish [...] contact study staff at ; after hours Health Care Consultant via the [facility] hospital mechanical shovel operator . Please contact study team before resolving/deleting from patients problem list. Study phone number: [phone]. Diagnosis changed due to Research Module. Go to Snapshot for study details. Encounter for examination fo r normal comparison and control in clinical research program 11/21/2017 06/30/2022 Overview: DO NOT DELETE - [facility] DETECT Study: Project # [id number], Health Care Consultant: Mykel Gill, MS, MPH. SUMMARY: Goal: [...] contact study staff at ; after hours Health Care Consultant via the [facility] hospital mechanical shovel operator . - Please contact study team before resolving/deleting from patients problem list. Study phone number: [phone]. Diagnosis changed due to Research Module. Go to Snapshot for study details. documented as of this encounter (statuses as of 08/16/2022) Immunizations Name Administration Dates Next Due Covid-19 [...] encounter Miscellaneous Notes * Telephone Encounter - Shea Soler LPN - 08/16/2022 11:44 AM EDT Care [...] Visit Family Medicine Depoe, DAVID Cortez [address] [place] [address] 08/29/2022 Hospital Encounter Surgery Sharon Miller MD [address] [place] [address] 08/29/2022 Surgery Surgery Sharon Miller MD [address] [place] [address] EXCISION PAROTID TOTAL WITH DISSECTION FACIAL NERVE [...] on File Type Date Recorded Patient Manager Development Expl anation Advanced Directive service a donovan [...] Directive Advanced Directive Advanced Directive Care Teams Rectifier Operator Relationship Specialty Start Date End Date Jamie Wynn DO [address] [place] [address] PCP - General Family Medicine 08/08/16 documented as of this encounter
--- OUTSIDE RECORDS SUMMARY | 2023-07-05 14:59 | External Medical Summary | Summary of Care ---
Author Name Unknown Organization [place] [address] Care Team Providers Care B2B Outside Sales Representative Name Role Phone GladysJamie ash Primary Care Provider +1- [phone] Reason for Visit * Reason Comments Advice Encounter Details Date Type Department Care Team Description 05/20/2022 Nurse Only Ancillary, Fred [address] [place] [address] Fred, Nurse Ancillary [address] [place] [address] Advice Allergies No known active allergiesdocumented as of this encounter (statuses as of 05/20/2022) Medications Medication Sig Dispensed Refills Start Date End Date Status VITAMIN E 400 UNIT PO CAPS DAILY 0 Active MULTI-VITAMIN PO TABS one daily 0 Act lilly Furosemide 20 MG Oral Tablet (Lasix)Indications:Wade ous insufficiency One pill once A Day On mon only , for Water Pill , generic 30 Tablet 1 05/10/2022 Active documented as of this encounter (statuses as of 05/20/2022) Active Problems Problem Noted Date Encounter for examination fo r normal comparison and control in clinical research program 11/21/2017 Overview: DO NOT DELETE [facility] DETECT Study: Project # [id number], Test Manager: Mykel Gill, MS, MPH. SUMMARY: Goal: [...] contact study staff at ; after hours Test Manager via the [facility] hospital roll forming machine operator . - Please contact study team before resolving/deleting from patients problem list. Study phone number: [phone]. Diagnosis changed due to Research Module. Go to Snapshot for study details. Cataract 08/08/2016 Family hx-breast malignancy 08/08/2016 Overview: [...] as of this encounter (statuses as of 05/20/2022) Resolved Problems Problem Noted Date Resolved Date Encounter for examination fo r normal comparison and control in clinical research program 11/21/2017 06/01/2020 Overview: DO NOT DELETE [facility] DETECT Study: Project # [id number], Test Manager: Khadar Dodd, PhD. SUMMARY: Goal: Establish [...] contact study staff at ; after hours Test Manager via the [facility] hospital roll forming machine operator . Please contact study team before resolving/deleting from patients problem list. Study phone number: [phone]. Diagnosis changed due to Research Module. Go to Snapshot for study details. documented as of this encounter (statuses as of 05/20/2022) Immunizations Name Administration Dates Next Due Covid-19 Ad26, Single Dose (Pierce/J&J) 022 Pneumococcal Polysaccharide PPV23 (Pneumovax) TD - Tetanus/Diptheria (ADULT) 08/18/2006,1988 TDAP (age 11 and older)(Adacel) 08/18/2006 documented [...] as of this encounter Nursing Notes * Sulma Mayer LPN - 05/20/2022 12:36 PM EDT Patient stopped in clinic today to report less swelling of leg lower leg and foot and ankle. Edema still present, non-pitting. Denies pain. Patient requesting to talk to provider regarding water pill, explained provider not available. To continue taking medication as directed, wear compression and f ollow up next week when provider available. documented in this encounter Plan of Treatment Upcoming Encounters Date Type Specialty Care Team Description 06/14/2022 Office Visit Otolaryngology Sharon Miller MD [address] [place] [address] 08/08/2022 Office Visit Dermatology Alla Crump MD [address] [place] [address] 08/25/2022 Office Visit Family Medicine Zofia Woodward CRNP [address] [facility] [place] [address] Health Maintenance Due Date Last Done Comments Zoster Vaccines (1 of 2) 1995 DTaP,Tdap,and Td Vaccines (2 - Td or Tdap) 08/18/2016 08/18/2006, 08/18/2006, 11/14/1988 Depression Screening, Annual for Pts 12 and Over 07/27/2019 07/27/2018 DXA Scan 02/08/2020 02/07/2017, 01/29, 02/20/2014, Additional history exists COVID-19 Vaccine (2 - Booster for Pierce series) 01/18/2022 11/23/2021 Influenza Vaccine (FLU shot) (#1) 2022 Pneumococcal Vaccine: 65+ Years (2 - PCV) 11/04/2022 11/04/2021 GARDASIL-HPV IMMUNIZATION SERIES Aged Out No longer [...] Documents on File Type Date Recorded Patient Tour Conductor Expl anation Advanced Directive service a donovan [...] Directive Advanced Directive Advanced Directive Care Teams B2B Outside Sales Representative Relationship Specialty Start Date End Date Jamie Wynn DO [address] [place] [address] PCP - General Family Medicine 08/08/16 documented as of this encounter
--- OUTSIDE RECORDS SUMMARY | 2023-07-05 14:59 | External Medical Summary ---
Author Name Unknown Address Unknown Organization K1H:[facility] - [address] [place] [address] Laboratory Report Ordering Provider Test Date Status PEYMAN RAINEY 05/04/2022 11:35:11 Final Observation Date Value Abnormality Reference (Units ) Status WBC, Total 05/04/2022 11:35:11 8.19 4.00-10.80 (K/uL) Final RBC 05/04/2022 11:35:11 4.51 3.85-5.15 (M/uL) Final Hemoglobin 05/04/2022 11:35:11 13.1 12.0-15.3 (g/dL) Final HCT 05/04/2022 11:35:11 39.3 36.0-45.2 (%) Final MCV 05/04/2022 11:35:11 87.1 81.5-97.5 (fL) Final MCH 05/04/2022 11:35:11 29.0 27.0-34.0 (pg) Final MCHC 05/04/2022 11:35:11 33.3 32.0-36.0 (g/dL) Final RDW 05/04/2022 11:35:11 14.1 11.5-15.5 (%) Final MPV 05/04/2022 11:35:11 10.4 6.6-11.1 (fL) Final Nucleated erythrocytes/100 leukocytes [Ratio] in Blood by Automated count 05/04/2022 11:35:11 0 <=0 (/100 WBCs) Final Platelets 05/04/2022 11:35:11 316 140-400 (K/uL) Final Performing Location [facility] - [address] [place] [id number]
--- OUTSIDE RECORDS SUMMARY | 2023-07-05 14:59 | External Medical Summary | Summary of Care ---
Author Name Unknown Organization [place] [address] Care Team Providers Care Cash Accountant Name Role Phone Jamie Wynn Primary Care Provider +1 [phone] Reason for Visit * Reason Onset Date Comments Test Results Imaging Study 05/04/2022 Encounter Details Date Type Department Care Team Description [facility] [address] [place] [address] Nirmala Fairchild CRNP [address] [place], [place] [id number] Test Results Imaging Study Allergies No known active allergiesdocumented as of this encounter (statuses as of 05/04/2022) Medications Medication Sig Dispensed Refills Start Date End Date Status VITAMIN E 400 UNIT PO CAPS DAILY 0 Active MULTI-VITAMIN PO TABS one daily 0 Active Lisinopril 5 MG Oral Tablet (Prinivil)Indicatio ns:HTN, goal below 140/90 Take by mouth 1 Tablet in the morning. For blood pressure. 30 Tablet 5 01/03/2022 Active Additional Information Patient not taking. Reported on 05/04/2022 documented as of this encounter (statuses as of 05/04/2022) Active Problems Problem Noted Date Encounter for examination fo r normal comparison and control in clinical research program 11/21/2017 Overview: DO NOT DELETE - [facility] DETECT Study: Project # [id number], Road Patcher: Mykel Gill, MS, MPH. SUMMARY: Goal: Establish [...] contact study staff at ; after hours Road Patcher via the [facility] chiller operator . - Please contact study team before resolving/deleting from patients problem list. Study phone number: [phone]. Diagnosis changed due to Research Module. Go [...] as of this encounter (statuses as of 05/04/2022) Resolved Problems Problem Noted Date Resolved Date Encounter for examination fo r normal comparison and control in clinical research program 11/21/2017 06/01/2020 Overview: DO NOT DELETE [facility] DETECT Study: Project # [id number], Road Patcher: Khadar Dodd, PhD. SUMMARY: Goal: Establish test [...] contact study staff at ; after hours Road Patcher via the [facility] hospital chiller operator . Please contact study team before resolving/deleting from patients problem list. Study phone number: [phone]. Diagnosis changed due to Research Module. Go to Snapshot for study details. documented as of this encounter (statuses as of 05/04/2022) Immunizations Name Administration Dates Next Due Covid-19 [...] Miscellaneous Notes * Telephone Encounter - DAVID Ivy - 05/04/2022 5:26 PM EDT Verified the patient's name and date of . Reviewed the patient's results which showed no fracture, but did show OA in the area where the patient was stating she was having pain/tenderness. As required by [place] Act 112, the Patient Test Result Information Act, I have discussed withthe patient the significant findings from the diagnostic imaging service performed today. They haveexpressed their understanding. Patient will follow up with her PCP when she is able to. documented in this encounter Plan of Treatment Upcoming Encounters Date Type Specialty Care Team Description 08/08/2022 Office Visit Dermatology Alla Crump MD [address] [place] [address] 08/25/2022 Office Visit [facility]ia [facility]hes [facility] [address] [facility] [address] Health Maintenance Due Date Last Done Comments Zoster Vaccines (1 of 2) 1995 DTaP,Tdap,and Td Vaccines (2 - Td or Tdap) 08/18/2016 08/18/2006, 08/18/2006, 11/14/1988 Depression Screening, Annual for Pts 12 and Over 07/27/2019 07/27/2018 Dexa Scan 02/08/2020 02/07/2017, 01/29, 02/20/2014, Additional history exists COVID-19 Vaccine (2 - Booster for Pierce series) 01/18/2022 11/23/2021 Influenza Vaccine (FLU shot) (#1) 2022 Pneumococcal Vaccine: 65+ Years (2 - PCV) 11/04/2022 11/04/2021 DIABETES SCREEN EVERY 3 YRS-AGE 45 AND ABOVE 05/04/2025 05/04/2022, 08/19/2021, 08/19/2021, Additional history exists GARDASIL-HPV IMMUNIZATION SERIES Aged Out No longer eligible based on patient's age to complete this topic MENINGOCOCCAL (MENACTRA/MENVEO) Aged Out No longer eligible based on patient's age to complete this topic documented as of this encounter Implants Not on filedocumented as of this encounter Advance Directives Documents on File Type Date Recorded Patient Surgical Scrub Technologist Expl anation Advanced Directive service a donovan default Advanced Directive service a donovan default Advanced Directive Advanced Directive Advanced Directive Advanced Directive Advanced Directive Advanced Directive Advanced Directive Advanced Directive Advanced Directive Advanced Directive Advanced Directive Advanced Directive Advanced Directive Advanced Directive Advanced Directive Advanced Directive Advanced Directive Advanced Directive Advanced Directive Advanced Directive Advanced Directive Care Teams Cash Accountant Relationship Specialty Start Date End Date Jamie Wynn, [address] [place] [address] PCP - General Family Medicine 08/08/16 documented as of this encounter
--- OUTSIDE RECORDS SUMMARY | 2023-07-05 14:59 | External Medical Summary | Summary of Care ---
Author Name Unknown Organization [place] [address] Care Team Providers Care Foundry Equipment Mechanic Name Role Phone GladysJamie ash Primary Care Provider [phone] Reason for Visit * Reason Comments Edema Encounter Details Date Type Department Care Team Description 05/04/2022 Convenient Care Visit [facility] [address] [place] [id number] Nirmala Fairchild CRNP [address] [place], [place] [id number] Localized swelling of left foot* Allergies No known active allergiesdocumented as of [...] research program 11/21/2017 Overview: DO NOT DELETE [facility] DETECT Study: Project # [id number], Mailroom Supervisor: Mykel Gill, MS, MPH. SUMMARY: Goal: [...] contact study staff at ; after hours Mailroom Supervisor via the [facility] hospital cable tool operator . - Please contact study team before resolving/deleting from patients problem list. Study phone number: [phone]. Diagnosis changed due to Research Module. Go [...] [facility] DETECT Study: Project # [id number], Mailroom Supervisor: Khadar Dodd, PhD. SUMMARY: Goal: Establish [...] contact study staff at ; after hours Mailroom Supervisor via the [facility] hospital cable tool operator . Please contact study team before resolving/deleting from patients problem list. Study phone number: [phone]. Diagnosis changed due to Research Module. Go [...] Sign Reading Time Taken Comments Blood Pressure 158/80 05/04/2022 10:38 AM EDT Pulse 70 05/04/2022 10:38 AM EDT Temperature 36.3 C (97.3 F) 05/04/2022 10:38 AM E DT Respiratory Rate 18 05/04/2022 10:38 AM EDT Oxygen Saturation 99% 05/04/2022 10:38 AM EDT Inhaled Oxygen Concentration - - Weight 52.6 kg (116 lb) 05/04/2022 10:38 AM EDT Height 160 cm (5' 3") 05/04/2022 10:38 AM EDT Body Mass Index 20.55 05/04/2022 10:38 AM EDT documented in this encounter Functional [...] encounter Patient Instructions * Patient Instructions* DAVID Ivy - 05/04/2022 11:11 AM EDT Patient education: Swelling (The Basics) Written by the doctors and editors at [facility] Please read the Disclaimer at the end of this page. What is swelling? Swelling happens when fluid collects in small spaces around tissues and organs inside the body. Another word for swelling is "edema." Some common parts of the body where people can have swelling are the: ?Lower legs or hands ?Belly ?Chest Swelling can occur in the lungs or in the space around the lungs. Swelling in the legs, hands, and belly can be uncomfortable and can be a symptom of a more serious condition. Swelling in the lungs can be life-threatening, because it is usually a symptom of a serious heart problem. What are the symptoms of swelling? Symptoms of swelling can include: ?Puffiness of the skin, which can cause the skin to look stretched and shiny This often occurs with swelling in the lower legs or lower back, and can be worse after people sit or stand for a longtime (figure 1). ?Increase in belly size (with swelling of the belly) ?Trouble breathing (with swelling in the chest) What are the causes of swelling? Different conditions can cause swelling. Some of these include: ?Problems with veins (blood vessels) in the legs Normally, veins carry blood from the body backto the heart. But if valves in the veins do not work well, the veins cannot pump enough blood back to the heart. This can cause swelling in the lower legs. ?Blood clots People who have a blood clot blocking a leg vein can have swelling in the feet or ankles. ? women can have swelling in the hands, feet, or face. ?Monthly periods Women can have swelling in different parts of their body before they get theirperiod. ?Medicines Swelling can be a side effect of some medicines, such as medicines for diabetes, high blood pressure, or pain. ?Kidney problems People who have certain kidney problems can have swelling in the lower legs oraround the eyes. ?Heart failure Heart failure is a type of heart problem in which the heart cannot pump normally. People with heart failure can have swelling in the legs, belly, or lungs. ?Liver problems People who have certain liver problems can have swelling in the belly or lower legs. ?Travel People who sit for a long time when traveling can have swelling in the lower legs. When should I call my doctor or nurse? Call your doctor or nurse if you have new swelling: ?In one or both of your legs ?In your hands ?In your belly ?Around your eyes You should also call your doctor or nurse if you travel and sit for a long time, and then have leg pain or swelling that does not go away after a few days. How is swelling treated? Doctors can treat swelling in different ways, depending on the cause. Treatment can include 1 or more of the following: ?Treatment for the medical condition that is causing the swelling ?Diet changes to reduce the amount of salt in the food that you eat ?Medicines to help your body get rid of extra fluid ?Special socks called "compression stockings" These fit tightly over the ankle and leg, and canreduce leg swelling. If your doctor or nurse recommends that you wear them, they will tell you which type to wear and how to put them on (figure 2 and figure 3 and table 1). ?Raising the legs up Some people can reduce swelling in the legs, ankles, and feet by raising their legs up 3 or 4 times a day for 30 minutes each time. The legs need to be raised above the levelof the heart. Not all types of swelling need treatment. For example, swelling that occurs during or before monthly periods usually does not need treatment. How can I help prevent leg swelling when I travel on long flights? To help prevent leg swelling on flights that are longer than 6 to 8 hours, you can: ?Stand up and walk around every hour or 2 ?Not smoke before traveling ?Wear loose-fitting and comfortable clothes ?Ask if you can sit in the bulkhead or emergency exit row ?Point and flex your feet, and bend your knees from time to time ?Drink plenty of fluids, and avoid drinking alcohol ?Not take medicines such as sleeping pills that can prevent you from getting up and moving around documented in this encounter Progress Notes * DAVID Ivy - 05/04/2022 10:46 AM EDT Convenient Care Basic Exam Reba Delaney is a 77 year old year old female who presents for evaluation of left foot swelling. Nursing Notes: Delilah Murray LPN 05/04/22 1040 Signed Patient presents to the clinic for evaluation of left foot swelling. Patient reports swelling for 3-4 weeks, does not recall trauma or injury. Interventions: none. Onset of symptoms was 3-4 weeks. Currently the symptoms are still present. Quality of the symptoms are swelling. Severity of symptoms are moderate. Location: left foot Worsened by: nothing Relieved by: rest Context: Onset during: cannot recall, No trauma Patient states she noted her left foot was swelling approximately 3-4 weeks ago. The patient does not recall any injury to the area. Associated Symptoms: Admits to: left foot swelling Denies: no other complaints REVIEW OF SYSTEMS: See HPI for pertinent positives and negatives. Patient denies addtional complaints. Patient admits to stopping a blood pressure medication not too long ago in February. Patient states her mother and sister had similar issues. Patient denies any trauma to the area. Patient has been elevating and rest the foot as tolerated. States she is having pain on the top of the foot near the toes. 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 Nonallopathic lesion of cervical region M99.9 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 For blood pressure. (Patient not taking: Reported on 05/04/2022 ) 30 Tablet 5 No current facility-administered medications for this visit. Nursing Notes and Vital Signs reviewed. PHYSICAL EXAM: VITALS: BP 158/80 (BP Site: Left Arm, BP Position: Sitting, BP Cuff Size: Regular) | Pulse 70 | Temp 36.3 C (97.3 F) (Tympanic) | Resp 18 | Ht 1.6 m (5' 3") | Wt 52.6 kg (116 lb) | SpO2 99% | BMI 20.55 kg/m | BSA 1.53 m GENERAL: Patient is alert, well appearing, well nourished, no obvious distress Chest: normal chest symmetry and expansion, normal AP diameter. LUNGS: Normal respiratory rate and normal respiratory effort. HEART: RR, no murmur, no click, no JVD ABDOMEN: non-distended. Soft, supple BACK: Back is symmetrical on inspection and there is no deformity. SKIN: Swelling +1 noted to the left foot. No erythema, no open areas, no drainage, no bleeding noted. Tenderness to the top of the foot near the toes. EXTREMITIES: +1 swelling to the left foot NEURO EXAM: Normal sensorium, cranial nerves II-XII grossly intact, normal speech , moves all extremities equally, normal gait, no ataxia. PSYCH: Alert, with normal affect, appropriate speech. Assessment/Plan: Localized swelling of left foot (Primary) - XR FOOT 3 OR MORE VIEWS - COMPREHENSIVE METABOLIC PANEL - CBC WITH WBC DIFFERENTIAL Patient advised to use over the counter medications as needed for symptom management. Advised to rest, elevate, and increase water intake as tolerated. Warm compresses to the left foot as tolerated. Encouraged to follow up with her PCP as soon as she is able regarding her blood pressure medication.Education included for review. DAVID [place] [address] documented in this encounter Nursing Notes * Delilah Murray LPN - 05/04/2022 10:36 AM EDT Patient presents to the clinic for evaluation of left foot swelling. Patient reports swelling for 3-4 weeks, does not recall trauma or injury. Interventions: none. documented in this encounter Plan of Treatment Upcoming Encounters Date Type Specialty Care Team Description 05/04/2022 Laboratory Laboratory [facility], [address] [place] [address] Arrived 08/08/2022 Office Visit Dermatology Alla Crump MD [address] [place] [address] 08/25/2022 Office Visit Family Medicine [place], DAVID Cortez [address] [facility] [place] [address] Scheduled Orders Name Type Priority Associated Diagnoses Orde r Schedule XR FOOT 3 OR MORE VIEWS Medical Imaging STAT Localized swelling of left foot Ordered: 05/04/2022 COMPREHENSIVE METABOLIC PANEL Lab Routine Localized swelling of left foot Ordered: 05/04/2022 CBC WITH WBC DIFFERENTIAL Lab Routine Localized swelling of left foot Ordered: 05/04/2022 Health Maintenance Due Date Last Done Comments [...] SCREEN EVERY 3 YRS-AGE 45 AND ABOVE 08/19/2024 08/19/2021, 08/19/2021, 01/25/2017, Additional history exists GARDASIL-HPV IMMUNIZATION SERIES Aged Out No longer eligible based on patient's age to complete this topic MENINGOCOCCAL (MENACTRA/MENVEO) Aged Out No longer eligible based on patient's age to complete this topic documented as of this encounter Implants Not on filedocumented as of this encounter Visit Diagnoses Diagnosis Localized swelling of left foot- Primary documented in this encounter Advance Directives Documents on File Type Date Recorded Patient Cook Frozen Dessert Expl anation Advanced Directive service a donovan default Advanced Directive service a donovan default Advanced Directive Advanced Directive Advanced Directive Advanced Directive Advanced Directive Advanced Directive Advanced Directive Advanced Directive Advanced Directive Advanced Directive Advanced Directive Advanced Directive Advanced Directive Advanced Directive Advanced Directive Advanced Directive Advanced Directive Advanced Directive Advanced Directive Advanced Directive Advanced Directive Care Teams Foundry Equipment Mechanic Relationship Specialty Start Date End Date Jamie Wynn, [address] [place] [address] PCP - General Family Medicine 08/08/16 documented as of this encounter
--- OUTSIDE RECORDS SUMMARY | 2023-07-05 14:59 | External Medical Summary | Summary of Care ---
Author Name Unknown Organization [place] [address] Care Team Providers Care Steward Dishwasher Name Role Phone GladysJamie ash Yarely NAIK Primary Care Provider [phone] Reason for Visit * Reason Onset Date Comments Immunizations 07/20/2022 Encounter Details Date Type Department Care Team Description 07/20/2022 Nurse Only Ancillary, Fred [address] [place] [address] Fred Nurse Ancillary [address] [place] [address] Immunizations Allergies No known active allergiesdocumented as of this encounter (statuses as of 07/20/2022) Medications Medication Sig Dispensed Refills Start Date End Date Status VITAMIN E 400 UNIT PO CAPS DAILY 0 Active MULTI-VITAMIN PO TABS one daily 0 Act lilly Furosemide 20 MG Oral Tablet (Lasix)Indications:Wade ous insufficiency One pill once A Day On mon only , for Water Pill , generic 30 Tablet 1 05/10/2022 Active documented as of this encounter (statuses as of 07/20/2022) Active Problems Problem Noted Date Cataract 08/08/2016 [...] as of this encounter (statuses as of 07/20/2022) Resolved Problems Problem Noted Date Resolved Date Encounter for examination fo r normal comparison and control in clinical research program 11/21/2017 06/01/2020 Overview: DO NOT DELETE [facility] DETECT Study: Project # [id number], Dialysis Social Worker: Khadar Dodd, PhD. SUMMARY: Goal: Establish [...] contact study staff at ; after hours Dialysis Social Worker via the [facility] hospital batch still operator . Please contact study team before resolving/deleting from patients problem list. Study phone number: [phone]. Diagnosis changed due to Research Module. Go to Snapshot for study details. Encounter for examination fo r normal comparison and control in clinical research program 11/21/2017 06/30/2022 Overview: DO NOT DELETE - [facility] DETECT Study: Project # [id number], Dialysis Social Worker: Mykel Gill, MS, MPH. SUMMARY: Goal: [...] contact study staff at ; after hours Dialysis Social Worker via the [facility] hospital batch still operator . - Please contact study team before resolving/deleting from patients problem list. Study phone number: [phone]. Diagnosis changed due to Research Module. Go to Snapshot for study details. documented as of this encounter (statuses as of 07/20/2022) Immunizations Name Administration Dates Next Due Covid-19 [...] Nursing Notes * Sulma Mayer LPN - 07/20/2022 9:35 [...] Office Visit Dermatology Alla Crump MD [address] [place] [address] 08/25/2022 Office Visit Family Medicine Zofia Woodward CRNP [address] [facility] [place] [address] 08/29/2022 Hospital Encounter Surgery Sharon Miller MD [address] [place] [address] 08/29/2022 Surgery Surgery Sharon Miller MD [address] [place], [place] [id number] EXCISION PAROTID TOTAL WITH DISSECTION FACIAL NERVE [...] Documents on File Type Date Recorded Patient Video Tape Editor Expl anation Advanced Directive service a donovan [...] Directive Advanced Directive Advanced Directive Care Teams Steward Dishwasher Relationship Specialty Start Date End Date Jamie Wynn, [address] [place] [address] PCP - General Family Medicine 08/08/16 documented as of this encounter
--- OUTSIDE RECORDS SUMMARY | 2023-07-05 14:59 | External Medical Summary | Summary of Care ---
Author Name Unknown Organization [facility] [place] [address] Care Team Providers Care Printing Machinist Name Role Phone GladysJamie ash Primary Care Provider [phone] Reason for Visit * Reason Comments Outpatient Testing Encounter Details Date Type Department Care Team Description 05/04/2022 Laboratory Laboratory, [facility] [address] [place] [address] [facility], Lab [address] [place] [address] Arrived Allergies No known active [...] program 11/21/2017 Overview: DO NOT DELETE - [facility] DETECT Study: Project # [id number], Fitness Coach: Mykel Gill, MS, MPH. SUMMARY: Goal: Establish [...] contact study staff at ; after hours Fitness Coach via the [facility] hospital vertical mill operator . - Please contact study team before resolving/deleting from patients problem list. Study phone number: [phone]. Diagnosis changed due to Research Module. Go [...] program 11/21/2017 06/01/2020 Overview: DO NOT DELETE [facility] Study: Project # [id number], Fitness Coach: Khadar Dodd, PhD. SUMMARY: Goal: Establish test [...] contact study staff at ; after hours Fitness Coach via the [facility] hospital vertical mill operator . Please contact study team before resolving/deleting from patients problem list. Study phone number: [phone]. Diagnosis changed due to Research Module. Go [...] Office Visit Dermatology Alla Crump MD [address] [facility] [place] [address] 08/25/2022 Office Visit Family Medicine Zofia Woodward CRNP [address] [facility] [place] [id number] Health Maintenance Due Date Last Done Comments [...] Documents on File Type Date Recorded Patient Audit Lead Expl anation Advanced Directive service a donovan default Advanced Directive service a donovan default Advanced Directive Advanced Directive Advanced Directive Advanced Directive Advanced Directive Advanced Directive Advanced Directive Advanced Directive Advanced Directive Advanced Directive Advanced Directive Advanced Directive Advanced Directive Advanced Directive Advanced Directive Advanced Directive Advanced Directive Advanced Directive Advanced Directive Advanced Directive Advanced Directive Care Teams Printing Machinist Relationship Specialty Start Date End Date Jamie Wynn, [address] [facility] [place] [address] PCP - General Family Medicine 08/08/16 documented as of this encounter
--- OUTSIDE RECORDS SUMMARY | 2023-07-05 14:59 | External Medical Summary | Summary of Care ---
Author Name Unknown Organization [place] [address] Care Team Providers Care Dining Room Tables Set Up Attendant Name Role Phone Jamie Wynn DO Primary Care Provider [phone] Reason for Visit * Reason Comments NEW PATIENT mass left side of ne ck * Evaluate & Treat - Unlimited Visits (Within 30 days (routine)) - Authorized Specialty Diagnoses / Procedures Referred By Lubna guidry Referred To Contact Otolaryngology Diagnoses Mass of left side of neck Jamie Wynn [facility] [address] [facility] [address] Referral ID Status Reason Start Date Expiration Date Visits Requested Visits Authorized Authorized Specialty Services Required 05/10/[phone] Encounter Details Date Type Department Care Team Description 06/14/2022 Office Visit Otolaryngology/Head & Neck/Facial Plastic Surgery [address] [place] [address] Sharon Miller MD [address], [place] [id number] Pleomorphic adenoma of parotid gland*; Tumor of parotid gland Allergies No known active allergiesdocumented as of this encounter (statuses as of 06/14/2022) Medications Medication Sig Dispensed Refills Start Date End Date Status VITAMIN E 400 UNIT PO CAPS DAILY 0 Active MULTI-VITAMIN PO TABS one daily 0 Act lilly Furosemide 20 MG Oral Tablet (Lasix)Indications:Wade ous insufficiency One pill once A Day On mon only , for Water Pill , generic 30 Tablet 1 05/10/2022 Active documented as of this encounter (statuses as of 06/14/2022) Active Problems Problem Noted Date Encounter for examination fo r normal comparison and control in clinical research program 11/21/2017 Overview: DO NOT DELETE - [facility] DETECT Study: Project # [id number], Data Management Associate: Mykel Gill, MS, MPH. SUMMARY: Goal: Establish [...] contact study staff at ; after hours Data Management Associate via the [facility] hospital finishing tunnel operator . - Please contact study team before resolving/deleting from patients problem list. Study phone number: [phone]. Diagnosis changed due to Research Module. Go [...] as of this encounter (statuses as of 06/14/2022) Resolved Problems Problem Noted Date Resolved Date Encounter for examination fo r normal comparison and control in clinical research program 11/21/2017 06/01/2020 Overview: DO NOT DELETE [facility] DETECT Study: Project # [id number], Data Management Associate: Khadar Dodd, PhD. SUMMARY: Goal: Establish test [...] contact study staff at ; after hours Data Management Associate via the [facility] hospital finishing tunnel operator . Please contact study team before resolving/deleting from patients problem list. Study phone number: [phone]. Diagnosis changed due to Research Module. Go to Snapshot for study details. documented as of this encounter (statuses as of 06/14/2022) Immunizations Name Administration Dates Next Due Covid-19 [...] Sign Reading Time Taken Comments Blood Pressure 184/69 06/14/2022 10:41 AM EDT Pulse 70 06/14/2022 10:41 AM EDT Temperature 36 C (96.8 F) 06/14/2022 10:41 AM EDT Respiratory Rate - - Oxygen Saturation - - Inhaled Oxygen Concentration - - Weight 51.7 kg (114 lb) 06/14/2022 10:41 AM EDT Height - - Body Mass Index 20.19 05/10/2022 2:59 PM EDT documented in this encounter Functional [...] as of this encounter Progress Notes * Alexander Murrell MD - 06/14/2022 10:44 AM EDT Images from the original note were not included. Department of Otolaryngology - Head and Neck Surgery Facial Plastic Surgery [address] [address] 06/14/2022 10:44 AM History of Present Illness: Reba Delaney is a 77 year old female is seen at the request of Jamie Wynn DO for the initial evaluation of a left facial mass that has been present for the last 15 years or so. She initially was seen by Dr. 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 She does not remember surgery being recommended at the time. Looks like Regulo was recommending surgery at the time but patient was lost to follow up. Patient was told to follow up on the mass at last PCP appointment. Patient notes some growth over the last 12 years. The mass does not bother her. She also notes a newer mass that she noticed about amonth ago on the right side submandibular area. Today the patient states that she smokes about 10 cigarettes per day since she was 25. No family history of head and neck cancer. The patient denies symptoms of otalgia, hoarseness, dysphagia, dyspnea and coughing or spitting up blood. Previous pathology: Patient Active Problem List Diagnosis Code DIFFUS [...] and control in clinical research program Z00.6 Past Medical History: Diagnosis Date Diffuse cystic [...] removal L neck PATH; BENIGN Otolaryngology [facility] Dr Rajput DENTAL SURGERY PROCEDURE NEC 2007 all teeth extracted TOTAL HIP REPLACEMENT & PROSTHESIS 2005 Dr Eller Medications Current Outpatient Medications Medication Sig Dispense Refill VITAMIN E 400 UNIT PO CAPS DAILY MULTI-VITAMIN PO TABS one daily Furosemide 20 MG Oral Tablet (Lasix) One pill once A Day On mon only , for Water Pill , generic 30 Tablet 1 No current facility-administered medications for this visit. Allergies Review of patient's allergies indicates: No Known Allergies Family History Family History Problem Relation Age of Onset Cancer Grandmother (Paternal) breast ca. dec'd Breast Cancer Grandmother (Paternal) Stroke Mother 86 CAD Heart Disorder Father 76 CAD dec'd Cancer Sister Bilateral Mastectomy Social History Social History Tobacco Use Smoking status: Current Every Day Smoker Packs/day: 0.50 Years: 30.00 Pack years: 15.00 Types: Cigarettes Smokeless tobacco: Never Used Substance Use Topics Alcohol use: Yes Comment: socially mixed drink whiskey club soda, Vaping/E-Cigarette Use Vaping/E-Cigarette Substances Vaping/E-Cigarette Devices Review of Systems Negative for constitutional, eyes, cardiac, pulmonary, hepatic, renal, digestive, hematologic, epileptic, syncopal, musculo-skeletal, mental health, integumentary, hypertensive, lipid, arthritic, diabetic, thyroid or neurologic disorders (except as listed in the PMH and Problem List). Physical Examination: Vital Signs: Filed Vitals: 06/14/22 1041 BP: 184/69 Pulse: 70 Temp: 36 C (96.8 F) TempSrc: Infrared Weight: 51.7 kg (114 lb) General: this is a healthy appearing female who appears her stated age. The patient is alert and appropriately verbally conversant without hoarseness. Face: No cutaneous masses, lesions, erythema, or edema. Facial movement was symmetric without weakness. No skin lesions were detected. No sinus tenderness elicited. Left tail of parotid mass noted onthe left about 2.5-3.0 cm in greatest dimension. Patient has a prominent hyoid bone that is palpable on the right. No mass that I appreciate. Eyes: EOMI, pupils equal, vision grossly intact. Cranial Nerves: Cranial nerves II, III, IV, and were noted to be intact via extra-ocular muscle movement testing. Cranial nerve VII noted to be intact and symmetric by facial movement. Cranial nerves IX and X noted to be intact by gag reflex and palatal movement. Cranial nerve XII noted to be intact by active and symmetric tongue movement. Nose: Septum is non-obstructing. Turbinates are normal in appearance. No lesions or masses are appreciated. No mucopurulence or polyps appreciated. Oral cavity: No lip or gingiva lesions. In oral cavity there are no mass lesions or infection. The palate was noted to be intact without clefting. Normal tongue mobility. Moist mucosa. Oropharynx: Mucous membranes moist. No lesions or masses appreciated. Uvula midline. Ears: Auricles were normally formed with no lesions. Neck: Visualization and palpation revealed no mass lesions, thyromegaly or thyroid masses. No skin lesions or overlying skin changes. The cervical musculature was normal to palpation. Lymphatics (cervical): No palpable lymph nodes in the posterior triangle, submandibular triangle, jugulodigastric region, or central neck. Lungs: normal WOB Heart: well perfused. 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 Surgery was initially recommended but the patient was lost to follow up until now. Plan: Recommend left parotidectomy to remove her mass Discussed risks and benefits of surgery with the patient, who would like to proceed Consent signed in clinic today RTC as needed in the interim Patient seen with, examined by and care plan directed by Nikhil Miller MD and condition was extensively discussed. Kevin uMrrell MD 06/14/2022 10:44 AM The patient was previously recommended to have surgery but somehow this did not end up being scheduled. I recommend surgery. Risks and benefits fully reviewed and informed consent obtained. Thank youfor the referral, and please feel free to contact me with any questions. I have discussed the patient's management with the medical trainee and agree with the note. Please refer to the documented findings and plan of care. This patient's visit today consisted of an evaluation. I was present and confirmed the findings of the history and exam. Sharon Miller MD documented in this encounter Plan of Treatment Upcoming Encounters Date Type Specialty Care Team Description 08/08/2022 Office Visit Dermatology Alla Crump MD [address] [place] [address] 08/10/2022 Office Visit Otolaryngology Sharon Miller MD [address], [place] [id number] 08/25/2022 Office Visit Family Medicine [place], DAVID Cortez [address] [place] [address] Scheduled Orders Name Type Priority Associated Diagnoses Orde r Schedule EKG EKG Routine Pleomorphic adenoma of parotid gland Expected: 07/15/2022 (Approximate), Expires: 06/14/2023 Health Maintenance Due Date Last Done Comments [...] Primary Benign neoplasm of major salivary glands Tumor of parotid gland Neoplasm of unspecified nature of digestive system documented in this encounter Advance Directives Documents on File Type Date Recorded Patient Heel Wheeler Expl anation Advanced Directive service a donovan [...] Directive Advanced Directive Advanced Directive Care Teams Dining Room Tables Set Up Attendant Relationship Specialty Start Date End Date Jamie Wynn DO [address] [place] [address] PCP - General Family Medicine 08/08/16 documented as of this encounter
--- OUTSIDE RECORDS SUMMARY | 2023-07-05 14:59 | External Medical Summary | Summary of Care ---
Author Name Unknown Organization [place] [address] Care Team Providers Care Hub Bander Name Role Phone Jamie Wynn DO Primary Care Provider [phone] Reason for Visit * Reason Onset Date Comments Test Results 05/12/2022 Encounter Details Date Type Department Care Team Description 05/12/2022 Telephone [facility] Fred Costa [address] [place] [address] Jamie Wynn DO [address] [place] [address] Test Results Allergies No known active allergiesdocumented as of this encounter (statuses as of 05/13/2022) Medications Medication Sig Dispensed Refills Start Date End Date Status VITAMIN E 400 UNIT PO CAPS DAILY 0 Active MULTI-VITAMIN PO TABS one daily 0 Act lilly Furosemide 20 MG Oral Tablet (Lasix)Indications:Wade ous insufficiency One pill once A Day On mon only , for Water Pill , generic 30 Tablet 1 05/10/2022 Active documented as of this encounter (statuses as of 05/13/2022) Active Problems Problem Noted Date Encounter for examination fo r normal comparison and control in clinical research program 11/21/2017 Overview: DO NOT DELETE - [facility] DETECT Study: Project # [id number], Supervisor [employer] Plant: Mykel Gill, MS, MPH. SUMMARY: Goal: Establish [...] study staff at ; after hours Supervisor [employer] Plant via the [facility] hospital milling/polishing operator . - Please contact study team before resolving/deleting from patients problem list. Study phone number: [phone]. Diagnosis changed due to Research Module. Go [...] as of this encounter (statuses as of 05/13/2022) Resolved Problems Problem Noted Date Resolved Date Encounter for examination fo r normal comparison and control in clinical research program 11/21/2017 06/01/2020 Overview: DO NOT DELETE [facility] DETECT Study: Project # [id number], Supervisor [employer]: Khadar Dodd, PhD. SUMMARY: Goal: Establish test [...] study staff at ; after hours Supervisor [employer] Plant via the [facility] hospital milling/polishing operator . Please contact study team before resolving/deleting from patients problem list. Study phone number: [phone]. Diagnosis changed due to Research Module. Go to Snapshot for study details. documented as of this encounter (statuses as of 05/13/2022) Immunizations Name Administration Dates Next Due Covid-19 [...] Miscellaneous Notes * Telephone Encounter - KRISTA Rutledge - 05/13/2022 11:47 AM EDT Pt is aware Swelling is going down * Telephone Encounter - Sulma Mayer LPN - 05/13/2022 9:27 AM EDT Left message requesting call back for provider information * Telephone Encounter - JULIA Hernandez - 05/12/2022 9:50 AM EDT Left message to return call for test results * Telephone Encounter - JULIA Hernandez - 05/12/2022 9:50 AM EDT ----- Message from Jamie Wynn DO sent at 05/11/2022 5:07 PM EDT ----- No evidence of blood clot in the swelling of leg , please let us know if the measures recommended at recent visit, are ineffective for swelling, jaren carerro documented in this encounter Plan of Treatment Upcoming Encounters Date Type Specialty Care Team Description 06/14/2022 Office Visit [facility]ology Sharon Miller MD [address] [facility] [address] 08/08/2022 Office Visit Dermatology Alla Crump MD [address] [facility] [place] [address] 08/25/2022 Office Visit Family Medicine Zofia Woodward CRNP [address] [place] [address] Health Maintenance Due Date Last Done Comments [...] Documents on File Type Date Recorded Patient Agency Operator Expl anation Advanced Directive service a donovan [...] Directive Advanced Directive Advanced Directive Care Teams Hub Bander Relationship Specialty Start Date End Date Jamie Wynn DO [address] [place] [address] PCP - General Family Medicine 08/08/16 documented as of this encounter
--- OUTSIDE RECORDS SUMMARY | 2023-07-05 14:59 | External Medical Summary | Summary of Care ---
Author Name Unknown Organization [place] [address] Care Team Providers Care Steel Unloader Name Role Phone Jamie Wynn Primary Care Provider [phone] Reason for Visit * Reason Onset Date Comments Education 06/15/2022 Encounter Details Date Type Department Care Team Description 06/15/2022 Telephone Pre Surgery [facility] [address] [place] [address] [place] [address] [place] [address] Education Allergies No known active allergiesdocumented as of this encounter (statuses as of 06/15/2022) Medications Medication Sig Dispensed Refills Start Date End Date Status VITAMIN E 400 UNIT PO CAPS DAILY 0 Active MULTI-VITAMIN PO TABS one daily 0 Act lilly Furosemide 20 MG Oral Tablet (Lasix)Indications:Wade ous insufficiency One pill once A Day On mon only , for Water Pill , generic 30 Tablet 1 05/10/2022 Active documented as of this encounter (statuses as of 06/15/2022) Active Problems Problem Noted Date Encounter for examination fo r normal comparison and control in clinical research program 11/21/2017 Overview: DO NOT DELETE - [facility] DETECT Study: Project # [id number], Switch Adjuster: Mykel Gill, MS, MPH. SUMMARY: Goal: [...] contact study staff at ; after hours Switch Adjuster via the [facility] hospital pebble mill operator . - Please contact study team before resolving/deleting from patients problem list. Study phone number: [phone]. Diagnosis changed due to Research Module. Go [...] as of this encounter (statuses as of 06/15/2022) Resolved Problems Problem Noted Date Resolved Date Encounter for examination fo r normal comparison and control in clinical research program 11/21/2017 06/01/2020 Overview: DO NOT DELETE [facility] DETECT Study: Project # [id number], Switch Adjuster: Khadar Dodd, PhD. SUMMARY: Goal: Establish [...] contact study staff at ; after hours Switch Adjuster via the [facility] hospital pebble mill operator . Please contact study team before resolving/deleting from patients problem list. Study phone number: [phone]. Diagnosis changed due to Research Module. Go to Snapshot for study details. documented as of this encounter (statuses as of 06/15/2022) Immunizations Name Administration Dates Next Due Covid-19 [...] encounter Miscellaneous Notes * Telephone Encounter - Ro Muñoz RN - 06/15/2022 12:16 PM EDT Patient called Presurgery clinic phone number to reschedule surgery date with Dr Herrera. Attemptedto transfer to ENT clinic, got nurses, told to call schedulers. Successfully transferred to [facility] to reschedule. Ro Muñoz RN 06/15/2022 12:22 PM documented in this encounter Plan of Treatment Upcoming Encounters Date Type Specialty Care Team Description 08/01/2022 Hospital Encounter Surgery Sharon Miller MD [address] [place] [address] 08/01/2022 Surgery Surgery Sharon Miller MD [address] [place] [address] EXCISION PAROTID TOTAL WITH DISSECTION FACIAL NERVE 08/08/2022 Office Visit Dermatology Alla Crump MD [address] [place] [address] 08/10/2022 Office Visit Otolaryngology Sharon Miller MD [address] [place] [address] 08/25/2022 Office Visit Family Medicine Zofia Woodward CRNP [address] [facility] [place] [address] Scheduled Procedures Name Priority Associated Diagnoses Date/Ti me EXCISION PAROTID TOTAL WITH DISSECTION FACIAL NERVE Pleomorphic adenoma of parotid gland 08/01/2022 7:45 AM EDT Health Maintenance Due Date Last [...] Documents on File Type Date Recorded Patient Glove Tagger Expl anation Advanced Directive service a donovan [...] Directive Advanced Directive Advanced Directive Care Teams Steel Unloader Relationship Specialty Start Date End Date Jamie Wynn DO [address] [place] [address] PCP - General Family Medicine 08/08/16 documented as of this encounter
--- OUTSIDE RECORDS SUMMARY | 2023-07-05 14:59 | External Medical Summary | Summary of Care ---
Author Name Unknown Organization [place] [address] Care Team Providers Care Electrical Electronics Engineer Name Role Phone Jamie Wynn DO Primary Care Provider [phone]- [phone] Reason for Visit * Reason Onset Date Comments Appointment 05/04/2022 Encounter Details Date Type Department Care Team Description 05/04/2022 Telephone [facility] Fred Costa [address] [place] [address] Jamie Wynn DO [address] [place] [address] Appointment Allergies No known active allergiesdocumented as of this encounter (statuses as of 05/09/2022) Medications Medication Sig Dispensed Refills Start Date [...] as of this encounter (statuses as of 05/09/2022) Active Problems Problem Noted Date Encounter for examination fo r normal comparison and control in clinical research program 11/21/2017 Overview: DO NOT DELETE [facility] DETECT Study: Project # [id number], Redipper: Mykel Gill, MS, MPH. SUMMARY: Goal: Establish [...] contact study staff at ; after hours Redipper via the [facility] hospital tool polishing machine operator . - Please contact study team before resolving/deleting from patients problem list. Study phone number: [phone]. Diagnosis changed due to Research Module. Go [...] as of this encounter (statuses as of 05/09/2022) Resolved Problems Problem Noted Date Resolved Date Encounter for examination fo r normal comparison and control in clinical research program 11/21/2017 06/01/2020 Overview: DO NOT DELETE [facility] DETECT Study: Project # [id number], Redipper: Khadar Dodd, PhD. SUMMARY: Goal: Establish test [...] contact study staff at ; after hours Redipper via the [facility] hospital tool polishing machine operator . Please contact study team before resolving/deleting from patients problem list. Study phone number: [phone]. Diagnosis changed due to Research Module. Go to Snapshot for study details. documented as of this encounter (statuses as of 05/09/2022) Immunizations Name Administration Dates Next Due Covid-19 [...] encounter Miscellaneous Notes * Telephone Encounter - Sulma Mayer LPN - 05/09/2022 10:17 AM EDT Unsuccessful third attempt to reach patient about scheduling follow up. Letter sent * Telephone Encounter - JULIA Hernandez - 05/05/2022 3:10 PM EDT Left message to return call to schedule a follow up to [facility]. No Openings with Dr. Wynn. Pt can be scheduled with Any other provider for the next available [facility] Zofia Carr * Telephone Encounter - KRISTA Mclaughlin - 05/04/2022 11:10 AM EDT No appointments available. Patient declined appointments?: na Is this appointment ACUTE (Yes/No)? yes If YES, were surrounding clinics offered to patient (Yes/No)? no Explain wants Fred Was patient offered appointments with other available providers (Yes/No)? no If No, explain wantnoris العراقي See Call Details? (Yes or No): no Patient was seen at [facility] care they are looking to get her acute appt due to foot swelling left for about a month now . xrays and lab draw done at [facility] documented in this encounter Plan of Treatment Upcoming Encounters Date Type Specialty Care Team Description 05/10/2022 Office Visit Family Medicine Jamie Wynn, [address] [place] [address] 08/08/2022 Office Visit Dermatology Alla Crump MD [address] [place] [address] 08/25/2022 Office Visit Family Medicine Zofia Woodward CRNP [address] [place] [address] Health Maintenance Due Date Last Done Comments [...] Documents on File Type Date Recorded Patient Electrician Helper Automotive Expl anation Advanced Directive service a donovan default Advanced Directive service a donovan default Advanced Directive Advanced Directive Advanced Directive Advanced Directive Advanced Directive Advanced Directive Advanced Directive Advanced Directive Advanced Directive Advanced Directive Advanced Directive Advanced Directive Advanced Directive Advanced Directive Advanced Directive Advanced Directive Advanced Directive Advanced Directive Advanced Directive Advanced Directive Advanced Directive Advanced Directive Care Teams Electrical Electronics Engineer Relationship Specialty Start Date End Date Jamie Wynn DO [address] [place] [address] PCP - General Family Medicine 08/08/16 documented as of this encounter
--- OUTSIDE RECORDS SUMMARY | 2023-07-05 14:59 | External Medical Summary | Summary of Care ---
Author Name Unknown Organization [facility] [place] [address] Care Team Providers Care Public Relations Name Role Phone Jamie Wynn DO Primary Care Provider [phone]- [phone] Reason for Referral * Evaluate & Treat - Unlimited Visits (Within 30 days (routine)) - Authorized Specialty Diagnoses / Procedures Referred By Lubna guidry Referred To Contact Otolaryngology Diagnoses Mass of left side of neck Jamie Wynn DO [address] [place] [address] Referral ID Status Reason Start Date Expiration Date Visits Requested Visits Authorized Authorized Specialty Services Required 05/10/[phone] Question Answer Referral Priority Within 30 days (routine) Reason for Referral: Head/Neck Neoplasm Specific Condition: Neck Mass Comments Left neck mass , 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 , Was benign mixed Tumor , please Consult And treat Reason for Visit * Reason Comments Edema left foot Encounter Details Date Type Department Care Team Description 05/10/2022 Office Visit [facility] Fred Costa [address] [place] [address] Jamie Wynn DO [address] [place] [address] Venous insufficiency*; Pain of left lower extremity; Mass of left side of neck Allergies No known active allergiesdocumented as of this encounter (statuses as of 05/11/2022) Medications Medication Sig Dispensed Refills Start Date End Date Status VITAMIN E 400 UNIT PO CAPS DAILY 0 Active MULTI-VITAMIN PO TABS one daily 0 Active Furosemide 20 MG Oral Tablet (Lasix)Indications: Venous insufficiency One pill once A Day On mon only , for Water Pill , generic 30 Tablet 1 05/10/2022 Active Lisinopril 5 MG Oral Tablet (Prinivil)Indicatio ns:HTN, goal below 140/90 Take by mouth 1 Tablet in the morning. For blood pressure. 30 Tablet 5 01/03/2022 05/10/2022 Discontinued (Patient preference/d iscontinuati on) documented as of this encounter (statuses as of 05/11/2022) Active Problems Problem Noted Date Encounter for examination fo r normal comparison and control in clinical research program 11/21/2017 Overview: DO NOT DELETE - [facility] Study: Project # [id number], Litigator: Mykel Gill, MS, MPH. SUMMARY: Goal: Establish [...] contact study staff at ; after hours Litigator via the [facility] boat hoist operator . - Please contact study team before resolving/deleting from patients problem list. Study phone number: [phone]. Diagnosis changed due to Research Module. Go [...] as of this encounter (statuses as of 05/11/2022) Resolved Problems Problem Noted Date Resolved Date Encounter for examination fo r normal comparison and control in clinical research program 11/21/2017 06/01/2020 Overview: DO NOT DELETE [facility] DETECT Study: Project # [id number], Litigator: Khadar Dodd, PhD. SUMMARY: Goal: Establish test [...] contact study staff at ; after hours Litigator via the [facility] hospital boat hoist operator . Please contact study team before resolving/deleting from patients problem list. Study phone number: [phone]. Diagnosis changed due to Research Module. Go to Snapshot for study details. documented as of this encounter (statuses as of 05/11/2022) Immunizations Name Administration Dates Next Due Covid-19 [...] Sign Reading Time Taken Comments Blood Pressure 128/74 05/10/2022 2:59 PM EDT Pulse 82 05/10/2022 2:59 PM EDT Temperature 36.8 C (98.3 F) 05/10/2022 2:59 PM ED T Respiratory Rate 13 05/10/2022 2:59 PM EDT Oxygen Saturation 98% 05/10/2022 2:59 PM EDT Inhaled Oxygen Concentration - - Weight 52.4 kg (115 lb 8 oz) 05/10/2022 2:59 PM EDT Height 160 cm (5' 3") 05/10/2022 2:59 PM EDT Body Mass Index 20.46 05/10/2022 2:59 PM EDT documented in this [...] as of this encounter Progress Notes * Jamie Pritchett Tianna, DO - 05/10/2022 3:09 PM EDT Subjective: Reba Delaney is a 77 year old female. Chief Complaint Patient presents with Edema left foot HPI: Swelling Left Foot and Ankle, no injury reported , had Soreness Dorsum left Foot, which is resolving, no redness or open areas or evidence of fracture or recent injury bp Has been Up at home, it is Good here today, no headaches or TIAs, is alert and pleasant, is comfortable at rest and calm, speaks well, is walking fairly well No Cp or Sob Or dvt pe sxsx works Well Walks Well been Doing gardening , xrays Neg, needs Venous Dopplers , exam C/w Venous Insuff, aware to Call if worse before We get dopplers Back, Not getting worse, Wt not Up, bp Recheck is Fine Off the Lisinopril, 3 Cm left neck mass Stable, She had It Check in the past Will get ent F/u, , she had It Checked [facility]Ago, [facility] Per patient , its About The Same , she Would like it Rechecked , was bx In 2009 , 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, Coping with recent passing Away of her , doing as Well as can be Expected Reviewed meds past medical history signs and symptoms and examined the patient, no evidence of cardiovascular respiratory GI or neurologic decompensation is noted at this time, no evidence of DVT PE renal failure or infection bleeding or CHF Also addressed amp measures and available recommended treatments and tests and Best Practice alerts Past Medical History: Diagnosis Date Diffuse cystic [...] node removal L neck PATH; BENIGN Otolaryngology [facility] Dr Rajput DENTAL SURGERY PROCEDURE NEC 2008 all teeth extracted TOTAL HIP REPLACEMENT & PROSTHESIS 2006 Dr Eller Patient Active Problem List Diagnosis Code DIFFUS [...] and control in clinical research program Z00.6 Current Outpatient Medications Medication Sig Dispense Refill VITAMIN E 400 UNIT PO CAPS DAILY MULTI-VITAMIN PO TABS one daily Lisinopril 5 MG Oral Tablet (Prinivil) Take by mouth 1 Tablet in the morning. For blood pressure. (Patient not taking: Reported on 05/10/2022 ) 30 Tablet 5 No current facility-administered medications for this visit. Review of patient's allergies indicates: No Known Allergies OBJECTIVE: BP 128/74 (BP Site: Right Arm, BP Position: Sitting, BP Cuff Size: Regular) | Pulse 82 | Temp 36.8 C (98.3 F) (Infrared ) | Ht 1.6 m (5' 3") | Wt 52.4 kg (115 lb 8 oz) | SpO2 98% | BMI 20.46 kg/m | BSA 1.53 m REVIEW OF SYSTEMS: 12+ systems reviewed and positives noted above in HPI PHYSICAL EXAM: General: alert and no distress Head: Normocephalic, No masses, lesions, tenderness or abnormalities Eye Exam: PERRLA, extraocular movements intact, sclera clear Ears: External ears normal, Canals clear, TM's Normal Nose: no mucosal erythema, no mucosal edema, no purulent discharge Oropharynx: no exudate, no erythema, lips, buccal mucosa, and tongue normal and mucous membranes are moist Neck: supple, no adenopathy, no bruits, no JVD, thyroid normal size, non-tender, without nodularity, has a mobile subcutaneous left neck mass , chronic, will get ENT follow-up Heart: regular rate & rhythm, no murmurs and no gallops Lungs: normal respiratory rate and rhythm, lungs clear to auscultation Pulses: carotid=2/4 w/o bruits, popliteal=2/4 Abdomen: abdomen soft, non-tender, normal bowel sounds, no masses or organomegaly and no rebound orguarding Back: back symmetric, no curvature, no costovertebral angle tenderness Extremities: less than 2 second capillary refill, no clubbing, no cyanosis Neuro Exam: alert & oriented x 3 with fluent speech, no focal motor/sensory deficits Skin: skin color, texture, turgor are normal, no rashes or significant lesions Musculoskeletal: Mild swelling of left lower leg and calf and dorsum of foot , trace swelling of right ankle area from venous insufficiency and multifactorial, neurologic is nonfocal, not suicidal homicidal psychotic, the rest of the exam is compensated today clinically ASSESSMENT: Pain of left lower extremity (Primary) - VASC DUPLEX VENOUS LE UNILAT Mass of left side of neck - OTOLARYNGOLOGY REFERRAL OP Venous insufficiency - Furosemide 20 MG Oral Tablet (Lasix); One pill once A Day On mon only , for Water Pill, generic PLAN: Continue present medication(s): Follow up: in 6 month(s) elevation, and mild compression tubigrip, low-dose diuretics, low-salt lowsugar diet , she will call if worse or if not improved in 1 to 2 weeks , will also check for DVT for completeness, low index of suspicion See orders and patient instructions, the above-listed diagnoses were addressed today, 30 minute visit today Jamie Wynn DO 05/10/2022 3:09 PM documented in this encounter Nursing Notes * Sulma Mayer LPN - 05/10/2022 3:01 PM EDT Swelling of left lower leg. Foot and ankle. Denies injury. States is a little painful. Had xrays [facility]. Also having pain in left hand. documented in this encounter Plan of Treatment Upcoming Encounters Date Type Specialty Care Team Description 06/14/2022 Office Visit Otolaryngology Sharon Miller MD [address] [place] [address] 08/08/2022 Office Visit Dermatology Alla Crump MD [address] [place] [address] 08/25/2022 Office Visit [facility] Woodward [facility] [address] [facility] [address] Pending Results Name Type Priority Associated Diagnoses Date /Time VASC DUPLEX VENOUS LE UNILAT Medical Imaging Routine Pain of left lower extremity 05/11/2022 1:27 PM EDT Scheduled Referrals Name Type Priority Associated Diagnoses Order Schedule OTOLARYNGOLOGY REFERRAL OP Referral Within 30 days (routine) Mass of left side of neck Ordered: 05/10/2022 Health Maintenance Due Date Last Done Comments [...] as of this encounter Visit Diagnoses Diagnosis Venous insufficiency- Primary Unspecified venous (peripheral) insufficiency Pain of left lower extremity Mass of left side of neck Swelling, mass, or lump in head and neck documented in this encounter Advance Directives Documents on File Type Date Recorded 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
--- OUTSIDE RECORDS SUMMARY | 2023-07-05 15:00 | External Medical Summary | Summary of Care ---
Author Name Unknown Organization [facility] Address [place] [address] Care Team Providers Care Analytical Lab Analyst Name Role Phone Jamie Wynn DO Primary Care Provider [phone]- [phone] Reason for Visit * Reason Onset Date Comments Blood Pressure Check 01/03/2022 Encounter Details Date Type Department Care Team Description [facility] [facility] [address] [place] [address] Jamie Wynn DO [address] [place] [address] Blood Pressure Check Allergies No known active allergiesdocumented as of this encounter (statuses as of 01/04/2022) Medications Medication Sig Dispensed Refills Start Date End Date Status VITAMIN E 400 UNIT PO CAPS DAILY 0 Active MULTI-VITAMIN PO TABS one daily 0 Active Lisinopril 5 MG Oral Tablet (Prinivil)Indicat ions:HTN, goal below 140/90 Take by mouth 1 Tablet in the morning. For blood pressure. 30 Tablet 5 01/03/2022 Active Lisinopril 5 MG Oral Tablet (Prinivil)Indicat ions:HTN, goal below 140/90 Take 1 Tablet by mouth daily. For blood pressure 30 Tablet 5 11/04/2021 01/03/2022 Discontinued (Refill) documented as of this encounter (statuses as of 01/04/2022) Active Problems Problem Noted Date Encounter for examination fo r normal comparison and control in clinical research program 11/21/2017 Overview: DO NOT DELETE - [facility] DETECT Study: Project # [id number], Student Admissions Clerk: Mykel Gill, MS, MPH. SUMMARY: Goal: [...] contact study staff at ; after hours Student Admissions Clerk via the [facility] automatic drill operator . - Please contact study team before resolving/deleting from patients problem list. Study phone number: [phone]. Diagnosis changed due to Research Module. Go [...] as of this encounter (statuses as of 01/04/2022) Resolved Problems Problem Noted Date Resolved Date Encounter for examination fo r normal comparison and control in clinical research program 11/21/2017 06/01/2020 Overview: DO NOT DELETE [facility] DETECT Study: Project # [id number], Student Admissions Clerk: Khadar Dodd, PhD. SUMMARY: Goal: Establish [...] contact study staff at ; after hours Student Admissions Clerk via the [facility] automatic drill operator . Please contact study team before resolving/deleting from patients problem list. Study phone number: [phone]. Diagnosis changed due to Research Module. Go to Snapshot for study details. documented as of this encounter (statuses as of 01/04/2022) Immunizations Name Administration Dates Next Due Pneumococcal Polysaccharide PPV23 (Pneumovax) TD - Tetanus/Diptheria [...] Telephone Encounter - Sulma Mayer LPN - 01/04/2022 11:06 AM EST Aware to return in 3 months for BP recheck * Telephone Encounter - Jamie Wynn DO - 01/03/2022 5:48 PM EST Blood pressure is not bad at this time would keep the medications the same and recheck it in 3 months with the nurse please, Thanks, rp * Telephone Encounter - Sulma Mayer LPN - 01/03/2022 8:52 AM EST Blood pressure: 132/86 Reconciliation of medications performed? Yes Did you take your medications today? Yes Any new problems or side effects of medications? No Any home blood pressure readings to report? No Pharmacy verified? Yes Phone number to be reached verified? Yes [phone] documented in this encounter Plan of Treatment Upcoming Encounters Date Type Specialty Care Team Description 08/08/2022 Office Visit Dermatology Alla Crump MD [address] [place] [address] 08/22/2022 Office Visit Family Medicine [place], DAVID Cortez [address] [place] [address] Health Maintenance Due Date Last Done Comments COVID-19 Vaccine (1) 1950 Zoster Vaccines (1 of 2) 1995 DTaP,Tdap,and Td Vaccines (2 - Td or Tdap) 08/18/2016 08/18/2006, 08/18/2006, 11/14/1988 Depression Screening, Annual for Pts 12 and Over 07/27/2019 07/27/2018 Dexa Scan 02/08/2020 02/07/2017, 01/29, 02/20/2014, Additional history exists Influenza Vaccine (FLU shot) (#1) 2021 DIABETES SCREEN EVERY 3 YRS-AGE 45 AND ABOVE 08/19/2024 08/19/2021, 08/19/2021, 01/25/2017, Additional history exists Pneumococcal Vaccine: 65+ Years Completed 11/04/2021 GARDASIL-HPV IMMUNIZATION SERIES Aged Out No longer eligible based on patient's age to complete this topic MENINGOCOCCAL (MENACTRA/MENVEO) Aged Out No longer eligible based on patient's age to complete this topic documented as of this encounter Implants Not on filedocumented as of this encounter Visit Diagnoses Diagnosis HTN, goal below 140/90 Unspecified essential hypertension documented in this encounter Advance Directives Documents on File Type Date Recorded Patient Camera Supervisor Expl anation Advanced Directive service a donovan default Advanced Directive service a donovan default Advanced Directive Advanced Directive Advanced Directive Advanced Directive Advanced Directive Advanced Directive Advanced Directive Advanced Directive Advanced Directive Advanced Directive Advanced Directive Advanced Directive Advanced Directive Advanced Directive Advanced Directive Advanced Directive Care Teams Analytical Lab Analyst Relationship Specialty Start Date End Date Jamie Wynn DO [address] [place] [address] PCP - General Family Medicine 08/08/16 documented as of this encounter
--- OUTSIDE RECORDS SUMMARY | 2023-07-05 15:00 | External Medical Summary ---
Author Name Unknown Address Unknown Organization K1H:[facility] - [address] [facility] [address] Laboratory Report Ordering Provider Test Date Status PEYMAN RAINEY 05/04/2022 11:35:11 Final Observation Date Value Abnormality Reference (Units ) Status SYNC LEUKOCYTES IN BLOOD BY AUTOMATED COUNT 05/04/2022 11:35:11 8.19 4.00-10.80 (K/uL) Final Segs 05/04/2022 11:35:11 61.3 40.0-75.0 (%) Final Lymphs % 05/04/2022 11:35:11 28.0 18.0-42.0 (%) Final Monos 05/04/2022 11:35:11 8.3 1.0-11.0 (%) Final Eosinophils 05/04/2022 11:35:11 1.7 0.0-6.0 (%) Final Basos 05/04/2022 11:35:11 0.5 0.0-2.0 (%) Final Immature Granulocyte, Percent 05/04/2022 11:35:11 0.2 0.0-2.0 (%) Final Absolute Segs 05/04/2022 11:35:11 5.02 1.80-7.70 (K/uL) Final Lymphs, absolute 05/04/2022 11:35:11 2.29 1.00-4.80 (K/ul) Final Monos, Abs 05/04/2022 11:35:11 0.68 0.00-1.10 (K/uL) Final Eos, Abs 05/04/2022 11:35:11 0.14 0.00-0.70 (K/uL) Final Basos, Abs 05/04/2022 11:35:11 0.04 0.00-0.20 (K/uL) Final Immature Granulocytes, Number 05/04/2022 11:35:11 0.02 0.00-0.20 (K/uL) Final Performing Location [facility] - [address] [place], [place] [id number]
--- OUTSIDE RECORDS SUMMARY | 2023-07-05 15:00 | External Medical Summary | Summary of Care ---
Author Name Unknown Organization [place] [address] Care Team Providers Care Registered Vascular Technologist (Rvt) Name Role Phone GladysJamie ash Yarely NAIK Primary Care Provider [phone] Reason for Visit * Reason Comments Blood Pressure Check Encounter Details Date Type Department Care Team Description 03/21/2022 Nurse Only Ancillary, Fred [address] [place] [address] Fred, Nurse Ancillary [address] [place] [address] Blood Pressure Check Allergies No known active allergiesdocumented as of this encounter (statuses as of 03/21/2022) Medications Medication Sig Dispensed Refills Start Date End Date Status VITAMIN E 400 UNIT PO CAPS DAILY 0 Active MULTI-VITAMIN PO TABS one daily 0 Act lilly Lisinopril 5 MG Oral Tablet (Prinivil)Indications :HTN, goal below 140/90 Take by mouth 1 Tablet in the morning. For blood pressure. 30 Tablet 5 01/03/2022 Active documented as of this encounter (statuses as of 03/21/2022) Active Problems Problem Noted Date Encounter for examination fo r normal comparison and control in clinical research program 11/21/2017 Overview: DO NOT DELETE - [facility] DETECT Study: Project # [id number], Desizing Machine Operator Head End: Mykel Gill, MS, MPH. SUMMARY: Goal: Establish [...] contact study staff at ; after hours Desizing Machine Operator Head End via the [facility] dull coat mill operator . - Please contact study team before resolving/deleting from patients problem list. Study phone number: [phone]. Diagnosis changed due to Research Module. Go [...] as of this encounter (statuses as of 03/21/2022) Resolved Problems Problem Noted Date Resolved Date Encounter for examination fo r normal comparison and control in clinical research program 11/21/2017 06/01/2020 Overview: DO NOT DELETE [facility] Study: Project # [id number], Desizing Machine Operator Head End: Khadar Dodd, PhD. SUMMARY: Goal: Establish test [...] contact study staff at ; after hours Desizing Machine Operator Head End via the [facility] dull coat mill operator . Please contact study team before resolving/deleting from patients problem list. Study phone number: [phone]. Diagnosis changed due to Research Module. Go to Snapshot for study details. documented as of this encounter (statuses as of 03/21/2022) Immunizations Name Administration Dates Next Due Pneumococcal [...] Sign Reading Time Taken Comments Blood Pressure 138/80 03/21/2022 9:29 AM EDT Pulse - - Temperature - - [...] Nursing Notes * Sulma Mayer LPN - 03/21/2022 9:29 AM EDT Blood pressure: 138/80 Patient states the last time she took her BP med was 03/17. Shehas not taken since then as she reports her BP was low at home. Reconciliation of medications performed? Yes Did you take your medications today? Yes Any new problems or side effects of medications? No Any home blood pressure readings to report? No Pharmacy verified? Yes Phone number to be reached verified? Yes [phone] ok to leave message documented in this encounter Plan of Treatment Upcoming Encounters Date Type Specialty Care Team Description 08/08/2022 [facility] [address] [facility] [address] 08/22/2022 Office Visit Family Medicine DepoeZofia CRNP [address] [facility] [place] [address] Health Maintenance Due Date Last Done Comments COVID-19 Vaccine (1) 1950 Zoster Vaccines (1 of 2) 1995 DTaP,Tdap,and Td Vaccines (2 - Td or Tdap) 08/18/2016 08/18/2006, 08/18/2006, 11/14/1988 Depression Screening, Annual for Pts 12 and Over 07/27/2019 07/27/2018 Dexa Scan 02/08/2020 02/07/2017, 01/29, 02/20/2014, Additional history exists Influenza Vaccine (FLU shot) (Season Ended) 2022 Pneumococcal Vaccine: 65+ Years (2 - [...] Documents on File Type Date Recorded 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 Advanced Directive service a donovan default Advanced Directive service a donovan default Advanced Directive Advanced Directive Advanced Directive Advanced Directive Advanced Directive Advanced Directive Advanced Directive Advanced Directive Advanced Directive Advanced Directive Advanced Directive Advanced Directive Advanced Directive Advanced Directive Advanced Directive Advanced Directive Advanced Directive Care Teams Registered Vascular Technologist (Rvt) Relationship Specialty Start Date End Date Jamie Wynn, [address] [place] [address] PCP - General Family Medicine 08/08/16 documented as of this encounter
--- OUTSIDE RECORDS SUMMARY | 2023-07-05 15:00 | External Medical Summary | Summary of Care ---
Author Name Unknown Organization [place] [address] Care Team Providers Care Bus Mechanic Name Role Phone Jamie Wynn DO Primary Care Provider [phone]- [phone] Reason for Visit * Reason Onset Date Comments Blood Pressure Check 11/11/2021 Encounter Details Date Type Department Care Team Description 11/11/2021 Telephone Laboratory, [place] [address] [place] [address] Jamie Wynn DO [address] [facility] [place] [address] Blood Pressure Check Allergies No known active allergiesdocumented as of this encounter (statuses as of 11/12/2021) Medications Medication Sig Dispensed Refills Start Date End Date Status VITAMIN E 400 UNIT PO CAPS DAILY 0 Active MULTI-VITAMIN PO TABS one daily 0 Active Lisinopril 5 MG Oral Tablet (Prinivil)Indication s:HTN, goal below 140/90 Take 1 Tablet by mouth daily. For blood pressure 30 Tablet 5 11/04/2021 Active documented as of this encounter (statuses as of 11/12/2021) Active Problems Problem Noted Date Encounter for examination fo r normal comparison and control in clinical research program 11/21/2017 Overview: DO NOT DELETE - [facility] DETECT Study: Project # [id number], Bridge Manager: Mykel Gill, MS, MPH. SUMMARY: Goal: [...] contact study staff at ; after hours Bridge Manager via the [facility] hospital frothing machine operator . - Please contact study team before resolving/deleting from patients problem list. Study phone number: [phone]. Diagnosis changed due to Research Module. Go [...] as of this encounter (statuses as of 11/12/2021) Resolved Problems Problem Noted Date Resolved Date Encounter for examination fo r normal comparison and control in clinical research program 11/21/2017 06/01/2020 Overview: DO NOT DELETE [facility] DETECT Study: Project # [id number], Bridge Manager: Khadar Dodd, PhD. SUMMARY: Goal: Establish [...] contact study staff at ; after hours Bridge Manager via the [facility] hospital frothing machine operator . Please contact study team before resolving/deleting from patients problem list. Study phone number: [phone]. Diagnosis changed due to Research Module. Go to Snapshot for study details. documented as of this encounter (statuses as of 11/12/2021) Immunizations Name Administration Dates Next Due Pneumococcal [...] Telephone Encounter - Sulma Mayer LPN - 11/12/2021 8:08 AM EST Aware to return in 2 weeks for BP recheck * Telephone Encounter - Jamie Wynn DO - 11/11/2021 5:38 PM EST Would keep on the lisinopril, and give it 2 more weeks, to see if it is going to continue to come down, would recheck blood pressure in 2 weeks with the nurse please,, thanks, rp * Telephone Encounter - Sulma Mayer LPN - 11/11/2021 1:25 PM EST B/P check, 154/84 Just started Lisinopril one week ago, Per patient she feels much improved. documented in this encounter Plan of Treatment Upcoming Encounters Date Type Specialty Care Team Description 08/08/2022 Office Visit Dermatology Alla Crump MD [address] [place] [address] 08/22/2022 Office Visit Family Medicine Dep[place], DAVID Cortez [address] [place] [address] Health Maintenance Due Date Last Done [...] Documents on File Type Date Recorded Patient Electrical Checkout Mechanic Expl anation Advanced Directive service a donovan default Advanced Directive service a donovan default Advanced Directive Advanced Directive Advanced Directive Advanced Directive Advanced Directive Advanced Directive Advanced Directive Advanced Directive Advanced Directive Advanced Directive Advanced Directive Advanced Directive Advanced Directive Advanced Directive Care Teams Bus Mechanic Relationship Specialty Start Date End Date Jamie Wynn, [address] [place] [address] PCP - General Family Medicine 08/08/16 documented as of this encounter
--- OUTSIDE RECORDS SUMMARY | 2023-07-05 15:00 | External Medical Summary | Summary of Care ---
Author Name Unknown Organization [place] [address] Care Team Providers Care Founder President And Ceo Name Role Phone Jamie Wynn DO Primary Care Provider [phone]- [phone] Reason for Visit * Reason Comments Blood Pressure Check Encounter Details Date Type Department Care Team Description 01/03/2022 Nurse Only Ancillary, [place] [address] [place] [address] Fred Nurse Ancillary [address] [place] [address] Blood Pressure Check Allergies No known active allergiesdocumented as of this encounter (statuses as of 01/03/2022) Medications Medication Sig Dispensed Refills Start Date End Date Status VITAMIN E 400 UNIT PO CAPS DAILY 0 Active MULTI-VITAMIN PO TABS one daily 0 Active Lisinopril 5 MG Oral Tablet (Prinivil)Indication s:HTN, goal below 140/90 Take 1 Tablet by mouth daily. For blood pressure 30 Tablet 5 11/04/2021 Active documented as of this encounter (statuses as of 01/03/2022) Active Problems Problem Noted Date Encounter for examination fo r normal comparison and control in clinical research program 11/21/2017 Overview: DO NOT DELETE [facility] DETECT Study: Project # [id number], Finance Consultant: Mykel Gill, MS, MPH. SUMMARY: Goal: [...] contact study staff at ; after hours Finance Consultant via the [facility] hospital stretch machine operator . - Please contact study team before resolving/deleting from patients problem list. Study phone number: [phone]. Diagnosis changed due to Research Module. Go [...] as of this encounter (statuses as of 01/03/2022) Resolved Problems Problem Noted Date Resolved Date Encounter for examination fo r normal comparison and control in clinical research program 11/21/2017 06/01/2020 Overview: DO NOT DELETE [facility] DETECT Study: Project # [id number], Finance Consultant: Khadar Dodd, PhD. SUMMARY: Goal: Establish [...] contact study staff at ; after hours Finance Consultant via the [facility] hospital stretch machine operator . Please contact study team before resolving/deleting from patients problem list. Study phone number: [phone]. Diagnosis changed due to Research Module. Go to Snapshot for study details. documented as of this encounter (statuses as of 01/03/2022) Immunizations Name Administration Dates Next Due Pneumococcal [...] Sign Reading Time Taken Comments Blood Pressure 132/86 01/03/2022 8:49 AM EST Pulse - - Temperature - - Respiratory [...] Nursing Notes * Sulma Mayer LPN - 01/03/2022 8:51 AM EST Blood pressure: 132/86 Reconciliation of medications performed? Yes Did you take your medications today? Yes Any new problems or side effects of medications? No Any home blood pressure readings to report? No Pharmacy verified? Yes Phone number to be reached verified? Yes [phone] documented in this encounter Plan of Treatment Upcoming Encounters Date Type Specialty Care Team Description 08/08/2022 [facility] [address] 08/22/2022 Office Visit Family Medicine Zofia Woodward CRNP [address] [place] [address] Health Maintenance Due Date Last Done Comments [...] on File Type Date Recorded Patient Equipment Lead Expl anation Advanced Directive service a donovan default Advanced Directive service a donovan default Advanced Directive Advanced Directive Advanced Directive Advanced Directive Advanced Directive Advanced Directive Advanced Directive Advanced Directive Advanced Directive Advanced Directive Advanced Directive Advanced Directive Advanced Directive Advanced Directive Advanced Directive Advanced Directive Care Teams Founder President And Ceo Relationship Specialty Start Date End Date Jamie Wynn DO [address] [place] [address] PCP - General Family Medicine 08/08/16 documented as of this encounter
--- OUTSIDE RECORDS SUMMARY | 2023-07-05 15:00 | External Medical Summary | Summary of Care ---
Author Name Unknown Organization [place] [address] Care Team Providers Care Line Camera Operator Name Role Phone Jamie Wynn DO Primary Care Provider [phone]- [phone] Reason for Visit * Reason Onset Date Comments Blood Pressure Check 03/21/2022 Encounter Details Date Type Department Care Team Description 03/21/2022 Telephone [facility] [place] [address] [place] [address] Jamie Wynn DO [address] [place] [address] Blood Pressure Check Allergies No known active allergiesdocumented as of this encounter (statuses as of 2022) Medications Medication Sig Dispensed Refills Start Date End Date Status VITAMIN E 400 UNIT PO CAPS DAILY 0 Active MULTI-VITAMIN PO TABS one daily 0 Act lilly Lisinopril 5 MG Oral Tablet (Prinivil)Indications :HTN, goal below 140/90 Take by mouth 1 Tablet in the morning. For blood pressure. 30 Tablet 5 01/03/2022 Active documented as of this encounter (statuses as of 2022) Active Problems Problem Noted Date Encounter for examination fo r normal comparison and control in clinical research program 11/21/2017 Overview: DO NOT DELETE - [facility] DETECT Study: Project # [id number], Calendar Control Clerk Blood Bank: Mykel Gill, MS, MPH. SUMMARY: Goal: Establish [...] contact study staff at ; after hours Calendar Control Clerk Blood Bank via the [facility] hospital pharmaceutical plant operator . - Please contact study team before resolving/deleting from patients problem list. Study phone number: [phone]. Diagnosis changed due to Research Module. Go [...] as of this encounter (statuses as of 2022) Resolved Problems Problem Noted Date Resolved Date Encounter for examination fo r normal comparison and control in clinical research program 11/21/2017 06/01/2020 Overview: DO NOT DELETE [facility] DETECT Study: Project # [id number], Calendar Control Clerk Blood Bank: Khadar Dodd, PhD. SUMMARY: Goal: Establish test [...] contact study staff at ; after hours Calendar Control Clerk Blood Bank via the [facility] hospital pharmaceutical plant operator . Please contact study team before resolving/deleting from patients problem list. Study phone number: [phone]. Diagnosis changed due to Research Module. Go to Snapshot for study details. documented as of this encounter (statuses as of 2022) Immunizations Name Administration Dates Next Due Covid-19 [...] Telephone Encounter - Sulma Mayer LPN - 03/21/2022 9:32 AM EDT Blood pressure: 138/80 Patient states [...] Phone number to be reached verified? Yes [phone] ok to leave message documented in this encounter Plan of Treatment Upcoming Encounters Date Type Specialty Care Team Description 08/08/2022 Office Visit [facility] [address] 08/22/2022 Office Visit Family Medicine Zofia Woodward CRNP [address] [place] [address] Health Maintenance Due Date Last Done Comments Zoster Vaccines (1 of 2) 1995 DTaP,Tdap,and Td Vaccines (2 - Td or Tdap) 08/18/2016 08/18/2006, 08/18/2006, 11/14/1988 Depression Screening, Annual for Pts 12 and Over 07/27/2019 07/27/2018 Dexa Scan 02/08/2020 02/07/2017, 01/29, 02/20/2014, Additional history exists COVID-19 Vaccine (2 - Booster for Pierce series) 01/18/2022 11/23/2021 Influenza Vaccine (FLU shot) (Season Ended) 2022 [...] Documents on File Type Date Recorded Patient Caustic Cresylate Shift Superintendent Expl anation Advanced Directive service a donovan default Advanced Directive service a donovan default Advanced Directive Advanced Directive Advanced Directive Advanced Directive Advanced Directive Advanced Directive Advanced Directive Advanced Directive Advanced Directive Advanced Directive Advanced Directive Advanced Directive Advanced Directive Advanced Directive Advanced Directive Advanced Directive Advanced Directive Care Teams Line Camera Operator Relationship Specialty Start Date End Date Jamie Wynn, [address] [place] [address] PCP - General Family Medicine 08/08/16 documented as of this encounter
--- OUTSIDE RECORDS SUMMARY | 2023-07-05 15:00 | External Medical Summary | Summary of Care ---
Author Name Unknown Organization [place] [address] Care Team Providers Care Can Machine Operator Name Role Phone Jamie Wynn DO Primary Care Provider [phone]- [phone] Reason for Visit * Reason Onset Date Comments Blood Pressure Check 11/11/2021 Encounter Details Date Type Department Care Team Description 11/11/2021 Telephone Laboratory, [place] [address] [place] [address] Jamie Wynn DO [address] [facility] [place] [address] Blood Pressure Check Allergies No known active allergiesdocumented as of this encounter (statuses as of 11/11/2021) Medications Medication Sig Dispensed Refills Start Date End Date Status VITAMIN E 400 UNIT PO CAPS DAILY 0 Active MULTI-VITAMIN PO TABS one daily 0 Active Lisinopril 5 MG Oral Tablet (Prinivil)Indication s:HTN, goal below 140/90 Take 1 Tablet by mouth daily. For blood pressure 30 Tablet 5 11/04/2021 Active documented as of this encounter (statuses as of 11/11/2021) Active Problems Problem Noted Date Encounter for examination fo r normal comparison and control in clinical research program 11/21/2017 Overview: DO NOT DELETE - [facility] DETECT Study: Project # [id number], Aeronautics Teacher: Mykel Gill, MS, MPH. SUMMARY: Goal: [...] contact study staff at ; after hours Aeronautics Teacher via the [facility] hospital automatic quilling machine operator . - Please contact study team before resolving/deleting from patients problem list. Study phone number: [phone]. Diagnosis changed due to Research Module. Go [...] as of this encounter (statuses as of 11/11/2021) Resolved Problems Problem Noted Date Resolved Date Encounter for examination fo r normal comparison and control in clinical research program 11/21/2017 06/01/2020 Overview: DO NOT DELETE [facility] DETECT Study: Project # [id number], Aeronautics Teacher: Khadar Dodd, PhD. SUMMARY: Goal: Establish [...] contact study staff at ; after hours Aeronautics Teacher via the [facility] hospital automatic quilling machine operator . Please contact study team before resolving/deleting from patients problem list. Study phone number: [phone]. Diagnosis changed due to Research Module. Go to Snapshot for study details. documented as of this encounter (statuses as of 11/11/2021) Immunizations Name Administration Dates Next Due Pneumococcal [...] Office Visit [facility]at[facility] [place] [address] 08/22/2022 Office Visit Family Medicine Depoe, DAVID Cortez [address] [facility] [place] [address] Health Maintenance Due Date [...] Documents on File Type Date Recorded Patient Scissors Grinder Expl anation Advanced Directive service a donovan default Advanced Directive service a donovan default Advanced Directive Advanced Directive Advanced Directive Advanced Directive Advanced Directive Advanced Directive Advanced Directive Advanced Directive Advanced Directive Advanced Directive Advanced Directive Advanced Directive Advanced Directive Advanced Directive Care Teams Can Machine Operator Relationship Specialty Start Date End Date Jamie Wynn, [address] [place] [address] PCP - General Family Medicine 08/08/16 documented as of this encounter
--- OUTSIDE RECORDS SUMMARY | 2023-07-05 15:00 | External Medical Summary ---
Author Name Unknown Address Unknown Organization K1H:[facility] - [address] [place] [address] Laboratory Report Ordering Provider Test Date Status BRIGIDMORLEY 05/04/2022 11:35:11 Final Observation Date Value Abnormality Reference (Units ) Status BUN 05/04/2022 11:35:11 14 6-20 (mg/dL) Final Creatinine 05/04/2022 11:35:11 0.9 0.5-1.0 (mg/dL) Final Glomerular filtration rate/1.73 sq M.predicted [Volume Rate/Area] in Serum, Plasma or Blood by Creatinine-based formula (CKD-EPI) 05/04/2022 11:35:11 62 >=60 (mL/min) Final Performing Location [facility] - [address] [facility] [address]
--- OUTSIDE RECORDS SUMMARY | 2023-07-05 15:00 | External Medical Summary | Summary of Care ---
Author Name Unknown Organization [place] [address] Care Team Providers Care Credit Investigator Name Role Phone Jamie Wynn DO Primary Care Provider [phone]- [phone] Reason for Visit * Reason Comments Blood Pressure Check Encounter Details Date Type Department Care Team Description 12/01/2021 Nurse Only Ancillary, Fred [address] [place] [address] Fred Nurse Ancillary [address] [place] [address] Blood Pressure Check Allergies No known active allergiesdocumented as of this encounter (statuses as of 12/01/2021) Medications Medication Sig Dispensed Refills Start Date End Date Status VITAMIN E 400 UNIT PO CAPS DAILY 0 Active MULTI-VITAMIN PO TABS one daily 0 Active Lisinopril 5 MG Oral Tablet (Prinivil)Indication s:HTN, goal below 140/90 Take 1 Tablet by mouth daily. For blood pressure 30 Tablet 5 11/04/2021 Active documented as of this encounter (statuses as of 12/01/2021) Active Problems Problem Noted Date Encounter for examination fo r normal comparison and control in clinical research program 11/21/2017 Overview: DO NOT DELETE [facility] DETECT Study: Project # [id number], Child Care Director: Mykel Gill, MS, MPH. SUMMARY: Goal: Establish [...] contact study staff at ; after hours Child Care Director via the [facility] hospital nylon operator . - Please contact study team before resolving/deleting from patients problem list. Study phone number: [phone]. Diagnosis changed due to Research Module. Go [...] as of this encounter (statuses as of 12/01/2021) Resolved Problems Problem Noted Date Resolved Date Encounter for examination fo r normal comparison and control in clinical research program 11/21/2017 06/01/2020 Overview: DO NOT DELETE [facility] DETECT Study: Project # [id number], Child Care Director: Khadar Dodd, PhD. SUMMARY: Goal: Establish test [...] contact study staff at ; after hours Child Care Director via the [facility] hospital nylon operator . Please contact study team before resolving/deleting from patients problem list. Study phone number: [phone]. Diagnosis changed due to Research Module. Go to Snapshot for study details. documented as of this encounter (statuses as of 12/01/2021) Immunizations Name Administration Dates Next Due Pneumococcal [...] Sign Reading Time Taken Comments Blood Pressure 138/78 12/01/2021 1:23 PM EST Pulse - - Temperature - - [...] Nursing Notes * Sulma Mayer LPN - 12/01/2021 1:22 PM EST Blood pressure: 138/78 Reconciliation of medications performed? Yes Did you take your medications today? Yes Any new problems or side effects of medications? No Any home blood pressure readings to report? No Pharmacy verified? Yes Phone number to be reached verified? Yes [phone] documented in this encounter Plan of Treatment Upcoming Encounters Date Type Specialty Care Team Description 08/08/2022 [facility] [place] [address] 08/22/2022 Office Visit Family Medicine Zofia Woodward CRNP [address] [place] [address] Health Maintenance Due Date Last Done Comments [...] Documents on File Type Date Recorded Patient Lapping Machine Set Up Operator Expl anation Advanced Directive service a donovan default Advanced Directive service a donovan default Advanced Directive Advanced Directive Advanced Directive Advanced Directive Advanced Directive Advanced Directive Advanced Directive Advanced Directive Advanced Directive Advanced Directive Advanced Directive Advanced Directive Advanced Directive Advanced Directive Advanced Directive Care Teams Credit Investigator Relationship Specialty Start Date End Date Jamie Wynn DO [address] [place] [address] PCP - General Family Medicine 08/08/16 documented as of this encounter
--- OUTSIDE RECORDS SUMMARY | 2023-07-05 15:00 | External Medical Summary | Summary of Care ---
Author Name Unknown Organization [place] [address] Care Team Providers Care Procurement Internship Name Role Phone Jamie Wynn Primary Care Provider [phone] Encounter Details Date Type Department Care Team Description 04/04/2022 Orders Only Outcomes Research Department [address] [place], [place] [id number] Christopher Saba CHRA [employer] Research Other*[id number] Allergies No known active allergiesdocumented as of this encounter (statuses as of 04/04/2022) Medications Medication Sig Dispensed Refills Start Date End Date Status VITAMIN E 400 UNIT PO CAPS DAILY 0 Active MULTI-VITAMIN PO TABS one daily 0 Act lilly Lisinopril 5 MG Oral Tablet (Prinivil)Indications :HTN, goal below 140/90 Take by mouth 1 Tablet in the morning. For blood pressure. 30 Tablet 5 01/03/2022 Active documented as of this encounter (statuses as of 04/04/2022) Active Problems Problem Noted Date Encounter for examination fo r normal comparison and control in clinical research program 11/21/2017 Overview: DO NOT DELETE [facility] DETECT Study: Project # [id number], Chimney Supervisor Brick: Mykel Gill, MS, MPH. SUMMARY: Goal: Establish [...] contact study staff at ; after hours Chimney Supervisor Brick via the [facility] hospital devulcanizer operator . - Please contact study team before resolving/deleting from patients problem list. Study phone number: [phone]. Diagnosis changed due to Research Module. Go [...] as of this encounter (statuses as of 04/04/2022) Resolved Problems Problem Noted Date Resolved Date Encounter for examination fo r normal comparison and control in clinical research program 11/21/2017 06/01/2020 Overview: DO NOT DELETE [facility] DETECT Study: Project # [id number], Chimney Supervisor Brick: Khadar Dodd, PhD. SUMMARY: Goal: Establish test [...] contact study staff at ; after hours Chimney Supervisor Brick via the [facility] hospital devulcanizer operator . Please contact study team before resolving/deleting from patients problem list. Study phone number: [phone]. Diagnosis changed due to Research Module. Go to Snapshot for study details. documented as of this encounter (statuses as of 04/04/2022) Immunizations Name Administration Dates Next Due Covid-19 [...] Office Visit Dermatology Alla Crump MD [address] [facility] [place] [address] 08/22/2022 Office Visit Family Medicine DepZofia hughes CRNP [address] [facility] [place] [address] Scheduled Orders Name Type Priority Associated Diagnoses Orde r Schedule MYCODE INITIAL ADULT Lab Routine [facility] Research Other*[id number] Expected: 04/04/2022 (Approximate), Expires: 04/24/2023 Health Maintenance Due Date Last Done Comments [...] this encounter Visit Diagnoses Diagnosis [facility] Research Other*[id number] documented in this encounter Advance Directives Documents on File Type Date Recorded Patient Coat Repair Inspector Expl anation Advanced Directive service a donovan default Advanced Directive service a donovan default Advanced Directive Advanced Directive Advanced Directive Advanced Directive Advanced Directive Advanced Directive Advanced Directive Advanced Directive Advanced Directive Advanced Directive Advanced Directive Advanced Directive Advanced Directive Advanced Directive Advanced Directive Advanced Directive Advanced Directive Care Teams Procurement Internship Relationship Specialty Start Date End Date Jamie Wynn, [address] [place] [address] [place] [address] PCP - General Family Medicine 08/08/16 documented as of this encounter
--- OUTSIDE RECORDS SUMMARY | 2023-07-05 15:00 | External Medical Summary | Summary of Care ---
Author Name Unknown Organization [place] [address] Care Team Providers Care Advertising Inserter Name Role Phone Jamie Wynn DO Primary Care Provider [phone] Reason for Visit * Reason Onset Date Comments Blood Pressure Check 12/01/2021 Encounter Details Date Type Department Care Team Description 12/01/2021 Telephone [facility], Fred [address] [place] [address] Jamie Wynn DO [address] [place] [address] Blood Pressure Check Allergies No known active allergiesdocumented as of this encounter (statuses as of 12/02/2021) Medications Medication Sig Dispensed Refills Start Date End Date Status VITAMIN E 400 UNIT PO CAPS DAILY 0 Active MULTI-VITAMIN PO TABS one daily 0 Active Lisinopril 5 MG Oral Tablet (Prinivil)Indication s:HTN, goal below 140/90 Take 1 Tablet by mouth daily. For blood pressure 30 Tablet 5 11/04/2021 Active documented as of this encounter (statuses as of 12/02/2021) Active Problems Problem Noted Date Encounter for examination fo r normal comparison and control in clinical research program 11/21/2017 Overview: DO NOT DELETE - [facility] DETECT Study: Project # [id number], Lead Software Development Engineer: Mykel Gill, MS, MPH. SUMMARY: Goal: [...] contact study staff at ; after hours Lead Software Development Engineer via the [facility] hospital gas or petroleum operator . - Please contact study team before resolving/deleting from patients problem list. Study phone number: [phone]. Diagnosis changed due to Research Module. Go [...] as of this encounter (statuses as of 12/02/2021) Resolved Problems Problem Noted Date Resolved Date Encounter for examination fo r normal comparison and control in clinical research program 11/21/2017 06/01/2020 Overview: DO NOT DELETE [facility] DETECT Study: Project # [id number], Lead Software Development Engineer: Khadar Dodd, PhD. SUMMARY: Goal: Establish [...] contact study staff at ; after hours Lead Software Development Engineer via the [facility] hospital gas or petroleum operator . Please contact study team before resolving/deleting from patients problem list. Study phone number: [phone]. Diagnosis changed due to Research Module. Go to Snapshot for study details. documented as of this encounter (statuses as of 12/02/2021) Immunizations Name Administration Dates Next Due Pneumococcal [...] Telephone Encounter - Sulma Mayer LPN - 12/02/2021 9:03 AM EST Aware to return in one month for BP recheck * Telephone Encounter - Jamie Wynn DO - 12/01/2021 5:37 PM EST Blood pressure is at goal, would keep the medications the same for now, and recheck blood pressure in 1 month with the nurse please, thanks,rp * Telephone Encounter - Sulma Mayer LPN - 12/01/2021 1:24 PM EST Blood pressure: 138/78 Reconciliation of medications performed? Yes Did you take your medications today? Yes Any new problems or side effects of medications? No Any home blood pressure readings to report? No Pharmacy verified? Yes Phone number to be reached verified? Yes [phone] documented in this encounter Plan of Treatment Upcoming Encounters Date Type Specialty Care Team Description 08/08/2022 Office Visit Dermatology Alla Crump MD [address] [place] [address] 08/22/2022 Office Visit Family Medicine Dep[place], DAVID Cortez [address] [facility] [place] [id number] Health Maintenance Due Date Last Done Comments [...] Documents on File Type Date Recorded Patient Piping Design Specialist Expl anation Advanced Directive service a donovan default Advanced Directive service a donovan default Advanced Directive Advanced Directive Advanced Directive Advanced Directive Advanced Directive Advanced Directive Advanced Directive Advanced Directive Advanced Directive Advanced Directive Advanced Directive Advanced Directive Advanced Directive Advanced Directive Advanced Directive Care Teams Advertising Inserter Relationship Specialty Start Date End Date Jamie Wynn DO [address] [place] [address] PCP - General Family Medicine 08/08/16 documented as of this encounter
--- OUTSIDE RECORDS SUMMARY | 2023-07-05 15:01 | External Medical Summary | Summary of Care ---
Author Name Unknown Organization [place] [address] Care Team Providers Care Internal Review And Audit Compliance Name Role Phone Jamie Wynn DO Primary Care Provider [phone] Reason for Visit * Reason Onset Date Comments Test Results 08/20/2021 lab work CBC,CMP ,lipid and a1C + mammogram and u/s breast Encounter Details Date Type Department Care Team Description 08/20/2021 Telephone [facility] Fred Costa [address] [place] [address] Zofia Woodward CRNP [address] [facility] [place] [address] Test Results (lab work CBC,CMP,lipid and a... Allergies No Known Active Allergiesdocumented as of this encounter (statuses as of 08/20/2021) Medications Medication Sig Dispensed Refills Start Date End Date Status VITAMIN E 400 UNIT PO CAPS DAILY 0 Active MULTI-VITAMIN PO TABS one daily 0 Act lilly documented as of this encounter (statuses as of 08/20/2021) Active Problems Problem Noted Date Encounter for examination fo r normal comparison and control in clinical research program 11/21/2017 Overview: DO NOT DELETE - [facility] DETECT Study: Project # [id number], A&P Technician: Mykel Gill, MS, MPH. SUMMARY: Goal: [...] contact study staff at ; after hours A&P Technician via the [facility] hospital hydro operator . - Please contact study team before resolving/deleting from patients problem list. Study phone number: [phone]. Diagnosis changed due to Research Module. Go [...] as of this encounter (statuses as of 08/20/2021) Resolved Problems Problem Noted Date Resolved Date Encounter for examination fo r normal comparison and control in clinical research program 11/21/2017 06/01/2020 Overview: DO NOT DELETE [facility] Study: Project # [id number], A&P Technician: Khadar Dodd, PhD. SUMMARY: Goal: Establish [...] contact study staff at ; after hours A&P Technician via the [facility] hospital hydro operator . Please contact study team before resolving/deleting from patients problem list. Study phone number: [phone]. Diagnosis changed due to Research Module. Go to Snapshot for study details. documented as of this encounter (statuses as of 08/20/2021) Immunizations Name Administration Dates Next Due TD - Tetanus/Diptheria (ADULT) 08/18/2006,1988 documented as of this encounter Social History Tobacco Use Types Packs/Day Years Used Date Current Every Day Smoker Cigarettes 0.5 30 Smokeless Tobacco: Never Used Alcohol Use Drinks/Week oz/Week Comments Yes socially mixed drink whiskey club soda, Sex Assigned at Date Recorded Not on file Job Start Date Occupation Industry Not on file Not on file Not on file documented as of this encounter Miscellaneous Notes * Telephone Encounter - Zofia Woodward CRNP - 08/20/2021 5:15 PM EDT Called patient at home and reviewed her labs including CBC, CMP, A1c, and lipid panel. Also included the mammogram and ultrasound and a referral to the breast Clinic [facility] included a copy of their notes to sent to dermatology So Dermatology can evaluate the nipple changes on the left breast DAVID Baker documented in this encounter Plan of Treatment Upcoming Encounters Date Type Specialty Care Team Description 09/02/2021 Office Visit Dermatology Tri Perry MD [address] [place] [address] 10/04/2021 Office Visit Family Medicine Zofia Woodward CRNP [address] [facility] [place] [address] [phone] 08/08/2022 Office Visit Dermatology Alla Crump MD [address] [place] [address] [phone] 08/22/2022 Office Visit Family Medicine Dep[place], DAVID Cortez [address] [place] [address] [phone] Health Maintenance Due Date Last Done Comments Pneumococcal Vaccine: 65+ Years (1 of 2 - PPSV23) 1951 COVID-19 Vaccine (1) 1957 DTaP,Tdap,and Td Vaccines (1 - Tdap) 1964 08/18/2006, 08/18/2006, 11/14/1988 Zoster Vaccines (1 of 2) 1995 *DEPRESSION SCREENING,ANNUAL FOR PTS 12 AND OVER 07/30/2019 Dexa Scan 02/08/2020 02/07/2017, 01/29, 02/20/2014, Additional history exists Influenza Vaccine (FLU shot) (#1) 2021 DIABETES SCREEN EVERY 3 YRS-AGE 45 AND ABOVE 08/19/2024 08/19/2021, 08/19/2021, 01/25/2017, Additional history exists MENINGOCOCCAL (MENACTRA/MENVEO) Aged Out No longer eligible based on patient's age to complete this topic documented as of this encounter Implants Not on filedocumented as of this encounter Advance Directives Documents on File Type Date Recorded Patient Desk Attendant Expl anation Advanced Directive service a donovan default Advanced Directive service a donovan default Advanced Directive Advanced Directive Advanced Directive Advanced Directive Advanced Directive Advanced Directive Advanced Directive Advanced Directive Advanced Directive Advanced Directive Advanced Directive Advanced Directive
--- OUTSIDE RECORDS SUMMARY | 2023-07-05 15:01 | External Medical Summary ---
Author Name Unknown Address Unknown Organization K01:[facility] [place] [address] [place] [address] [place] [address] Laboratory Report Ordering Provider Test Date Status KADEEM GUERRERO 08/19/2021 12:19:11 Final Observation Date Value Abnormality Reference (Units ) Status Hep C Ab 08/19/2021 12:19:11 Negative Negative Final Performing Location [facility] [place] [address] [place] [address]
--- OUTSIDE RECORDS SUMMARY | 2023-07-05 15:01 | External Medical Summary | Summary of Care ---
Author Name Unknown Organization [place] [address] Care Team Providers Care Aircraft Load Controller Name Role Phone Jamie Wynn DO Primary Care Provider [phone] Reason for Visit * Reason Comments Mohs Surgery * Evaluate & Treat - Unlimited Visits (Within 30 days (routine)) Status Reason Specialty Diagnoses / Procedures Referred By Contact Referred To Contact Closed Specialty Services Required Dermatology Diagnoses Basal cell carcinoma (BCC) of skin of face, unspecified part of face Alla Crump MD [address] [place] [address] Encounter Details Date Type Department Care Team Description 09/02/2021 Office Visit [facility] Surgery [address] [phone] Tri Perry MD [address] [place] [address] [phone] Basal cell carcinoma (BCC) of right lateral cheek*; Neoplasm of uncertain behavior of skin Allergies No Known Active Allergiesdocumented as of this encounter (statuses as of 09/02/2021) Medications Medication Sig Dispensed Refills Start Date End Date Status VITAMIN E 400 UNIT PO CAPS DAILY 0 Active MULTI-VITAMIN PO TABS one daily 0 Act lilly documented as of this encounter (statuses as of 09/02/2021) Active Problems Problem Noted Date Encounter for examination fo r normal comparison and control in clinical research program 11/21/2017 Overview: DO NOT DELETE - [facility] DETECT Study: Project # [id number], Business Continuity Director: Mykel Gill, MS, MPH. SUMMARY: Goal: [...] contact study staff at ; after hours Business Continuity Director via the [facility] hospital paper baling machine operator . - Please contact study team before resolving/deleting from patients problem list. Study phone number: [phone]. Diagnosis changed due to Research Module. Go [...] as of this encounter (statuses as of 09/02/2021) Resolved Problems Problem Noted Date Resolved Date Encounter for examination fo r normal comparison and control in clinical research program 11/21/2017 06/01/2020 Overview: DO NOT DELETE [facility] DETECT Study: Project # [id number], Business Continuity Director: Khadar Dodd, PhD. SUMMARY: Goal: Establish [...] contact study staff at ; after hours Business Continuity Director via the [facility] hospital paper baling machine operator . Please contact study team before resolving/deleting from patients problem list. Study phone number: [phone]. Diagnosis changed due to Research Module. Go to Snapshot for study details. documented as of this encounter (statuses as of 09/02/2021) Immunizations Name Administration Dates Next Due TD [...] as of this encounter Progress Notes * Tri Perry MD - 09/02/2021 8:00 AM EDT History: Reba Delaney is a 76 year old patient seen at the request of Jamie Wynn DO and Alla Crump MD for evaluation and management of (07/28/21): Skin, right preauricular area: Basal cell carcinoma The portion of tumor available for examination appears to be the nodular and focally infiltrative subtype. Also has a lesion on the left nipple--new in the past couple of weeks. She was seen in Surg Onc--they felt it was most likely a seborrheic keratosis. She denies a personal history of skin cancers. She feels well today and has no other skin complaints. Patient Active Problem List Diagnosis Code DIFFUS [...] CAPS DAILY MULTI-VITAMIN PO TABS one daily No current facility-administered medications for this visit. Exam: Well-appearing white female Alert and oriented x3 The patient's skin is remarkable for: Right preauricular: 1.2cm pink patch Left nipple: 4mm craig warty plaque Impression/Plan: 1. Right preauricular area: Basal cell carcinoma, nodular and focally infiltrative subtype MMS 1 stage Absorbable sutures 2. Seborrheic keratosis left nipple Shave of the lesion noted above to remove and confirm diagnosis. The procedure, risks, benefits, alternatives and expected outcomes were discussed with the patient and consent was obtained. Time out called. Patient identified, procedure verified, site identified and verified. Patient and staff present in agreement. Area prepped with alcohol and anesthetized using 0.5% lidocaine with epinephrine at 1:200,000 concentration. Total volume: 3.0ml. Shave of lesion performed. 20% AlCl and bandaging applied. Specimen sent to pathology. Patient instructed in routine post-op care. Return 08/08/22 Tri Perry MD Associate, Mohs Micrographic Surgery & Dermatologic Surgery documented in this encounter Procedure Notes * Tri Perry MD - 09/02/2021 12:00 PM EDT CLINIC NOTES [place] [id number] MOHS MICROGRAPHIC SURGERY Reba Delaney [facility]# [id number] 09/02/2021 [facility] NUMBER: [id number] BIOPSY: [id number] OPERATION: SURGICAL EXCISION OF CUTANEOUS MALIGNANCY USING CONTINUOUS MICROSCOPIC CONTROL(MOHS MICROGRAPHIC SURGERY) DIAGNOSIS: infiltrating basal cell carcinoma LOCATION: right preauricular INDICATION FOR MOHS SURGERY: Large Size,Location,Histologic Type SURGEON: Tri Perry M.D. RETAIL PERFORMANCE COACH SURGEON: NONE RETAIL PERFORMANCE COACH SURGEON: Nancy Rodney M.D. ANESTHETIC: Buffered lidocaine 0.5% with epinephrine 1:200,000 FOREPART REDUCER: Tri Perry M.D. PREOPERATIVE SIZE OF LESION: 1.2 x 1.0 cm POSTOPERATIVE SIZE OF DEFECT: 1.6 x 1.4 cm ESTIMATED BLOOD LOSS: 5CC PROCEDURE: Time out called. Patient identified. Procedure matches verbalized consent. Site identified and verified and confirmed immediately prior to the procedure. Site marked. Thin layers of tumor-containing tissue were excised at each stage of surgery. These were cut into smaller tissue sections which were examined microscopically in a systematic fashion. Examination of the entire base and superficial peripheral margin allowed microscopic tumor extensions to be located and mapped. In accordance with the Mohs technique, this procedure enabled the maximum amount of normal tissue to be preserved while achieving the highest cure rate for cutaneous malignancy. At each surgical stage, the patient was prepped, the proposed excision outlined on the skin, and the area was reanesthetized as needed. STAGE I: The patient was prepped and the area of surgery was outlined. The operative site was anesthetized with a local injection of buffered lidocaine 0.5% with epinephrine 1:200,000. Following this the clinically apparent portion of the tumor was surgically removed. Hemostasis was achieved with an electrosurgical device. A thin layer of tissue was surgically excised and hemostasis was obtained. A reference map was drawn and the excised tissue was cut into 2 sections for examination in the micrographic laboratory. Edges of each section were dyed in order to achieve precise orientation. Horizontal sectioning of the base and continuous peripheral margins were then carried out and the prepared microscopic sections were examined by Tri Perry M.D.. Any areas of residual infiltrating basal cell carcinoma were indicated on the reference map, pinpointing the location in which further tissue excision was necessary. At this point, no further tumor cells were identified and the tumor eradication was considered to be complete for a total of 1 stage of surgery in which multiple microscopic slices of 2 tissue sections had been examined. WOUND MANAGEMENT: This wound was reconstructed with a an intermediate repair. The beveled edges of the Mohs defect were excised at a 90 degree angle relative to surrounding skin. Burow's triangles were excised from the poles of the wound and oriented to use relaxed skin tension lines and anatomic borders to greatest advantage. Meticulous hemostasis was obtained with the electrosurgical device. The wound was repaired in a layered fashion to close potential space and to precisely and securely approximate the wound edges. Total volume of Buffered lidocaine 0.5% with epinephrine 1:200,000, for Mohs Surgery and reconstruction was 15 ml. The final closure was 4.2 cm. in length. Subcutaneous closure material: Interrupted 4-0 Monocryl Cutaneous closure material: Running 5-0 Fast gut Tri Perry M.D. Associate Department of Dermatology documented in this encounter Plan of Treatment Upcoming Encounters Date Type Specialty Care Team Description 10/04/2021 Office Visit Family Medicine DepZofia hughes CRNP [address] [facility] [place] [address] [phone] 08/08/2022 Office Visit Dermatology Alla Crump MD [address] [facility] [place] [address] [phone] 08/22/2022 Office Visit Family Medicine Depoe, DAVID Cortez [address] [facility] [place] [address] [phone] Scheduled Orders Name Type Priority Associated Diagnoses Orde r Schedule SURGICAL PATHOLOGY Pathology Routine Neoplasm of uncertain behavior of skin Ordered: 09/02/2021 Health Maintenance Due Date Last Done Comments [...] as of this encounter Visit Diagnoses Diagnosis Basal cell carcinoma (BCC) of right lateral cheek- Primary Neoplasm of uncertain behavior of skin documented in this encounter Advance Directives Documents on File Type Date Recorded Patient Roving Frame Tender Expl anation Advanced Directive service a donovan default Advanced Directive service a donovan default Advanced Directive Advanced Directive Advanced Directive Advanced Directive Advanced Directive Advanced Directive Advanced Directive Advanced Directive Advanced Directive Advanced Directive Advanced Directive Advanced Directive
--- OUTSIDE RECORDS SUMMARY | 2023-07-05 15:01 | External Medical Summary | Summary of Care ---
Author Name Unknown Organization [place] [address] Care Team Providers Care Industrial Relations Worker Name Role Phone Jamie Wynn DO Primary Care Provider [phone] Reason for Visit * Reason Comments Mohs Surgery * Evaluate & Treat - Unlimited Visits (Within 30 days (routine)) Status Reason Specialty Diagnoses / Procedures Referred By Contact Referred To Contact Closed Specialty Services Required Dermatology Diagnoses Basal cell carcinoma (BCC) of skin of face, unspecified part of face Alla Crump MD [address] [place] [address] Encounter Details Date Type Department Care Team Description 09/02/2021 Office Visit MOHS Surgery [address] [phone] Tri Perry MD [address] [place] [address] [phone] Basal cell carcinoma (BCC) of right lateral [...] program 11/21/2017 Overview: DO NOT DELETE - [facility] DETECT Study: Project # [id number], Compensation Administrator: Mykel Gill, MS, MPH. SUMMARY: Goal: Establish [...] contact study staff at ; after hours Compensation Administrator via the [facility] foam machine operator . - Please contact study team before resolving/deleting from patients problem list. Study phone number: [phone]. Diagnosis changed due to Research Module. Go [...] [facility] DETECT Study: Project # [id number], Compensation Administrator: Khadar Dodd, PhD. SUMMARY: Goal: Establish test [...] contact study staff at ; after hours Compensation Administrator via the [facility] foam machine operator . Please contact study team before resolving/deleting from patients problem list. Study phone number: [phone]. Diagnosis changed due to Research Module. Go [...] & Dermatologic Surgery documented in this encounter Plan of Treatment Upcoming Encounters Date Type Specialty Care Team Description 10/04/2021 Office Visit Family Medicine Zofia Woodward CRNP [address] [place] [address] [phone] 08/08/2022 Office Visit Dermatology Alla Crump MD [address] [place] [address] [phone] 08/22/2022 Office Visit Family Zofia De La Rosa CRNP [address] [place] [phone] Scheduled Orders Name Type Priority Associated Diagnoses [...] Documents on File Type Date Recorded Patient Delinquent Account Clerk Expl anation Advanced Directive service a donovan default Advanced Directive service a donovan default Advanced Directive Advanced Directive Advanced Directive Advanced Directive Advanced Directive Advanced Directive Advanced Directive Advanced Directive Advanced Directive Advanced Directive Advanced Directive Advanced Directive
--- OUTSIDE RECORDS SUMMARY | 2023-07-05 15:01 | External Medical Summary | Summary of Care ---
Author Name Unknown Organization [place] [address] Care Team Providers Care Gas Leak Tester Name Role Phone Jamie Wynn DO Primary Care Provider [phone]- [phone] Reason for Visit * Reason Comments Blood Pressure Check Encounter Details Date Type Department Care Team Description 11/11/2021 Nurse Only Ancillary, Fred [address] [place] [address] Fred Nurse Ancillary [address] [place] [address] Blood Pressure Check Allergies [...] research program 11/21/2017 Overview: DO NOT DELETE [facility] DETECT Study: Project # [id number], Shuttle Fixer: Mykel Gill, MS, MPH. SUMMARY: Goal: Establish [...] contact study staff at ; after hours Shuttle Fixer via the [facility] hospital gang drill operator . - Please contact study team before resolving/deleting from patients problem list. Study phone number: [phone]. Diagnosis changed due to Research Module. Go [...] program 11/21/2017 06/01/2020 Overview: DO NOT DELETE [facility] DETECT Study: Project # [id number], Shuttle Fixer: Khadar Dodd, PhD. SUMMARY: Goal: Establish test [...] contact study staff at ; after hours Shuttle Fixer via the [facility] hospital gang drill operator . Please contact study team before resolving/deleting from patients problem list. Study phone number: [phone]. Diagnosis changed due to Research Module. Go [...] Sign Reading Time Taken Comments Blood Pressure 154/84 11/11/2021 1:13 PM EST Pulse - - Temperature - [...] Nursing Notes * Sulma Mayer LPN - 11/11/2021 1:17 PM EST B/P check, 154/84 Just started Lisinopril one week ago, Per patient she feels much improved. Dh to leave message on machine. * Sulma Mayer LPN - 11/11/2021 1:13 PM EST .b documented in this encounter Plan of Treatment Upcoming Encounters Date Type Specialty Care Team Description 08/08/2022 Office Visit Dermatology Alla Crump MD [address] [place] [id number] 08/22/2022 Office Visit Family Medicine [place], DAVID Cortez [address] [place] [address] Health Maintenance Due Date Last Done Comments [...] Documents on File Type Date Recorded Patient Bell Cleaner Expl anation Advanced Directive service a donovan default Advanced Directive service a donovan default Advanced Directive Advanced Directive Advanced Directive Advanced Directive Advanced Directive Advanced Directive Advanced Directive Advanced Directive Advanced Directive Advanced Directive Advanced Directive Advanced Directive Advanced Directive Advanced Directive Care Teams Gas Leak Tester Relationship Specialty Start Date End Date Jamie Wynn, [address] [place] [address] PCP - General Family Medicine 08/08/16 documented as of this encounter
--- OUTSIDE RECORDS SUMMARY | 2023-07-05 15:01 | External Medical Summary | Summary of Care ---
Author Name Unknown Organization [place] [address] Care Team Providers Care Cloth Booker Name Role Phone Jamie Wynn DO Primary Care Provider [phone]- [phone] Reason for Visit * Reason Onset Date Comments Blood Pressure Check 11/11/2021 Encounter Details Date Type Department Care Team Description 11/11/2021 Telephone Laboratory, [place] [address] [place] [address] Jamie Wynn DO [address] [facility] [place] [address] Blood Pressure Check Allergies No [...] program 11/21/2017 Overview: DO NOT DELETE - [facility] DETECT Study: Project # [id number], Brown Sourer: Mykel Gill, MS, MPH. SUMMARY: Goal: Establish [...] contact study staff at ; after hours Brown Sourer via the [facility] hospital glue reel operator . - Please contact study team before resolving/deleting from patients problem list. Study phone number: [phone]. Diagnosis changed due to Research Module. Go [...] DELETE [facility] DETECT Study: Project # [id number], Brown Sourer: Khadar Dodd, PhD. SUMMARY: Goal: Establish test [...] contact study staff at ; after hours Brown Sourer via the [facility] hospital glue reel operator . Please contact study team before resolving/deleting from patients problem list. Study phone number: [phone]. Diagnosis changed due to Research Module. Go [...] Office Visit Dermatology [facility]ump [facility] [place] [address] 08/22/2022 Office Visit Family Medicine [place], DAVID Cortez [address] [facility] [place] [address] Health Maintenance Due Date Last Done Comments [...] Documents on File Type Date Recorded Patient Core Winder Expl anation Advanced Directive service a donovan default Advanced Directive service a donovan default Advanced Directive Advanced Directive Advanced Directive Advanced Directive Advanced Directive Advanced Directive Advanced Directive Advanced Directive Advanced Directive Advanced Directive Advanced Directive Advanced Directive Advanced Directive Advanced Directive Care Teams Cloth Booker Relationship Specialty Start Date End Date Jamie Wynn, [address] [place] [address] PCP - General Family Medicine 08/08/16 documented as of this encounter
--- OUTSIDE RECORDS SUMMARY | 2023-07-05 15:01 | External Medical Summary | Summary of Care ---
Author Name Unknown Organization [place] [address] Care Team Providers Care Ob/Gyn Physician Name Role Phone Jamie Wynn DO Primary Care Provider [phone] Reason for Visit * Reason Comments PAP Encounter Details Date Type Department Care Team Description 11/04/2021 Office Visit [facility] Fred Costa [address] [place] [address] Zofia Woodward CRNP [address] [place] [address] HTN, goal below 140/90*; Need for pneumococcal vaccination; Encounter for screening mammogram for malignant neoplasm of breast Allergies No known active allergiesdocumented as of this encounter (statuses as of 11/05/2021) Medications Medication Sig Dispensed Refills Start Date End Date Status VITAMIN E 400 UNIT PO CAPS DAILY 0 Active MULTI-VITAMIN PO TABS one daily 0 Active Lisinopril 5 MG Oral Tablet (Prinivil)Indication s:HTN, goal below 140/90 Take 1 Tablet by mouth daily. For blood pressure 30 Tablet 5 11/04/2021 Active documented as of this encounter (statuses as of 11/05/2021) Active Problems Problem Noted Date Encounter for examination fo r normal comparison and control in clinical research program 11/21/2017 Overview: DO NOT DELETE [facility] DETECT Study: Project # [id number], Gleason Gear Generator: Mykel Gill, MS, MPH. SUMMARY: Goal: Establish [...] contact study staff at ; after hours Gleason Gear Generator via the [facility] hospital profiling machine set up operator tool . - Please contact study team before resolving/deleting from patients problem list. Study phone number: [phone]. Diagnosis changed due to Research Module. Go [...] as of this encounter (statuses as of 11/05/2021) Resolved Problems Problem Noted Date Resolved Date Encounter for examination fo r normal comparison and control in clinical research program 11/21/2017 06/01/2020 Overview: DO NOT DELETE [facility] DETECT Study: Project # [id number], Gleason Gear Generator: Khadar Dodd, PhD. SUMMARY: Goal: Establish test [...] contact study staff at ; after hours Gleason Gear Generator via the [facility] hospital profiling machine set up operator tool . Please contact study team before resolving/deleting from patients problem list. Study phone number: [phone]. Diagnosis changed due to Research Module. Go to Snapshot for study details. documented as of this encounter (statuses as of 11/05/2021) Immunizations Name Administration Dates Next Due Pneumococcal [...] Sign Reading Time Taken Comments Blood Pressure 190/94 11/04/2021 3:22 PM EST Pulse 74 11/04/2021 3:22 PM EST Temperature 36.6 C (97.9 F) 11/04/2021 3:22 PM ES T Respiratory Rate 18 11/04/2021 3:22 PM EST Oxygen Saturation 98% 11/04/2021 3:22 PM EST Inhaled Oxygen Concentration - - Weight 54.7 kg (120 lb 11.2 oz) 11/04/2021 3:22 PM EST Height - - Body Mass Index 21.38 08/20/2021 11:03 AM EDT documented in this encounter Functional [...] this encounter Patient Instructions * Patient Instructions* Rebekah Fonseca MED ASSIST - 11/04/2021 3:21 PM EST ~~PATIENT INSTRUCTIONS FOR PNEUMOCOCCAL VACCINE~~ Possible side effects of pneumococcal vaccine, (pneumonia shot), are usually mild and can include: 1. Soreness or redness at injection site 2. Low grade fever 3. Body aches You may use Tylenol/Acetaminophen as needed for these symptoms. LET YOUR DOCTOR KNOW IMMEDIATELY IF YOU HAVE DIFFICULTY BREATHING OR SWALLOWING, EXPERIENCE ITCHINGOF FEET OR HANDS, HAVE SWELLING OF EYES, FACE OR INSIDE OF NOSE. documented in this encounter Progress Notes * DAVID Heller - 11/04/2021 3:30 PM EST Subjective: Reba Broussard is a 76 year old female. Chief Complaint Patient presents with PAP Brief Clinical History Ms. Broussard is a 76 year old woman last seen in Family Medicine 2 months ago (08-19-21). She is notdue for eval of any conditions. ROUTINE EXAM Presents by self, masked, no covid sx has NOT done covid vaccine Nursing Notes: Rebekah Lavinia Fonseca, MED ASSIST 11/04/21 1524 Signed Pt here for a pap Last pap 2016 was normal Did not check with insurance about coverage for pap so decided to hold on pap today and Katherine will check with her insurance Will addressed her BP today PHM: Patient Active Problem List Diagnosis Code DIFFUS [...] Lisinopril 5 MG Oral Tablet (Prinivil) Take 1 Tablet by mouth daily. For blood pressure 30 Tablet 5 No current facility-administered medications [...] node removal L neck PATH; BENIGN Otolaryngology [facility] Dr Rajput DENTAL SURGERY PROCEDURE NEC 2007 all teeth extracted TOTAL HIP REPLACEMENT & PROSTHESIS 2005 Dr Eller Review of patient's allergies indicates: No Known Allergies Objective: BP 190/94 (BP Site: Right Arm, BP Position: Sitting, BP Cuff Size: Regular) | Pulse 74 | Temp 36.6 C (97.9 F) (Tympanic) | Resp 18 | Wt 54.7 kg (120 lb 11.2 oz) | SpO2 98% | BMI 21.38 kg/m | BSA 1.56 m Review of Systems: See HPI No resp issues No chest pains or palpitations No GI issues No issues No vaginal bleeding at all menopause at 50 years ol VITALS ACROSS ENCOUNTERS 05/03/2017 07/27/2018 07/27/2018 08/19/2021 BP 108/70 128/82 Pulse 76 63 VITALS ACROSS ENCOUNTERS 08/19/2021 08/20/2021 08/20/2021 11/04/2021 BP 122/76 158/78 Pulse 68 72 VITALS ACROSS ENCOUNTERS 11/04/2021 BP 190/94 Pulse 74 No headaches No vision changes Results for REBA BROUSSARD ( ) as of 11/04/2021 19:36 Ref. Range 08/19/2021 12:19 Triglycerides Latest Ref Range: <=174 mg/dL 119 Cholesterol Latest Ref Range: <200 mg/dL 229 (H) Non-HDL Cholesterol Latest Ref Range: <=159 mg/dL 159 HDL Cholesterol Latest Ref Range: >49 mg/dL 70 LDL Cholesterol Latest Ref Range: <=129 mg/dL 135 (H) Sodium Latest Ref Range: 135 - 146 mmol/L 141 Potassium Latest Ref Range: 3.5 - 5.1 mmol/L 4.8 Chloride Latest Ref Range: 98 - 107 mmol/L 103 CO2 Latest Ref Range: 22 - 32 mmol/L 27 BUN Latest Ref Range: 6 - 20 mg/dL 10 Creatinine Latest Ref Range: 0.5 - 1.0 mg/dL 0.9 Estimated Glomerular Filtration Rate Latest Ref Range: >=60.0 mL/min 66.8 Anion Gap Latest Ref Range: 7 - 15 mmol/L 11 Glucose Latest Ref Range: 70 - 120 mg/dL 87 Calcium Latest Ref Range: 8.4 - 10.2 mg/dL 9.8 Protein Latest Ref Range: 6.0 - 8.3 g/dL 7.8 Estimated Average Glucose Latest Ref Range: <126 mg/dL 114 25-Hydroxy Vitamin D Latest Ref Range: >19 ng/mL 23 Hemoglobin A1C Latest Ref Range: 4.0 - 5.6 % 5.6 CBC Unknown Rpt WBC Latest Ref Range: 4.00 - 10.80 K/uL 7.97 HGB Latest Ref Range: 12.0 - 15.3 g/dL 14.9 HCT Latest Ref Range: 36.0 - 45.2 % 43.6 MCV Latest Ref Range: 81.5 - 97.5 fL 88.4 Plt Latest Ref Range: 140 - 400 K/uL 319 Hepatitis C Antibody Latest Ref Range: Negative Negative HEPATITIS C ANTIBODY Unknown Rpt Albumin Latest Ref Range: 3.8 - 5.0 g/dL 4.6 AST Latest Ref Range: 10 - 35 U/L 20 ALT Latest Ref Range: 10 - 35 U/L 10 Alkaline Phosphatase Latest Ref Range: 35 - 130 U/L 88 Bilirubin, Total Latest Ref Range: <=1.2 mg/dL 0.4 Physical Exam: General: alert, healthy, no distress, comfortable and cooperative Head: Normocephalic, No masses, lesions, tenderness or abnormalities Eye Exam: PERRLA, Conjunctiva are pink and non-injected, sclera clear Ears: External ears normal, Canals clear, TM's Normal Nose: no sinus tenderness Lymph: no palpable lymphadenopathy, anterior cervical , posterior cervical Heart: regular rate & rhythm, no murmurs and no gallops Lungs: chest symmetric with normal AP diameter, no chest deformities noted, no chest wall tenderness, lungs clear to auscultation Pulses: radial=2/4, carotid=2/4 w/o bruits Taking vit D daily HTN, goal below 140/90 (Primary) - Lisinopril 5 MG Oral Tablet (Prinivil); Take 1 Tablet by mouth daily. For blood pressure. NEW START TODAY IS TO COME IN FOR BLOOD PRESSURE CHECKS WEEKLY UNTIL AT OR UNDER GOAL - DURABLE MEDICAL EQUIPMENT-FOR AUTOMATIC BLOOD PRESSURE CUFF Need for pneumococcal vaccination - PNEUMOCOCCAL VACC, PPV23, 2 YEARS AND OLDER, IM Encounter for screening mammogram for malignant neoplasm of breast - MAMMOGRAM SCREENING BILATERAL; Future; Expected date: 11/05/2021 Follow Up: Return in about 1 year (around 11/04/2022) for routine. | For: routine | Check-out note: Doing weekly BP checks for lisinopril start today One year routine f/u DAVID Baker, I will inform you via MyG of any tests results * Rebekah Fonseca, MED ASSIST - 11/04/2021 3:21 PM EST Immunization Administration Documentation Time Out Procedure Performed: Yes Patient Identified (Ask Name/Date of ): Yes Does the patient have a fever greater than 101 degrees today? No Patient allergic to latex? No VFC Stock: No Immunization(s) verified: Yes, Immunization Name: Pneumovax (Pneumococcal Adult), VIS Sheet(s) given: Yes Verified Side and Site: Yes Verified Shot(s) with Parent(s)/Patient: Yes documented in this encounter Nursing Notes * JULIA Hernandez - 11/04/2021 4:14 PM EST Pre-Administration Time Out Procedure Performed: Yes Patient Identified (Ask Name/Date of ): Yes Does the patient have a fever greater than 101 degrees today? No Patient allergic to latex? No Has the patient ever fainted after receiving an injection? No VFC Stock: No Immunization(s) verified: Yes, Immunization Name: Pneumovax (Pneumococcal Adult), VIS Sheet(s) given: Yes Verified Side and Site: Yes Verified Shot(s) with Parent(s)/Patient: Yes * JULIA Hernandez - 11/04/2021 3:19 PM EST Pt here for a pap documented in this encounter Plan of Treatment Upcoming Encounters Date Type Specialty Care Team Description 08/08/2022 Office [facility] [address] 08/22/2022 Office Visit Family Medicine DepoeZofia CRNP [address] [place] [address] Scheduled Orders Name Type Priority Associated Diagnoses Orde r Schedule MAMMOGRAM SCREENING BILATERAL Medical Imaging Routine Encounter for screening mammogram for malignant neoplasm of breast Expected: 11/05/2021, Expires: 12/05/2022 Health Maintenance Due Date Last Done Comments [...] encounter Visit Diagnoses Diagnosis HTN, goal below 140/90- Primary Unspecified essential hypertension Need for pneumococcal vaccination Need for prophylactic vaccination against streptococcus pneumoniae (pneumococcus) Encounter for screening mammogram for malignant neoplasm of breast Other screening mammogram documented in this encounter Advance Directives Documents on File Type Date Recorded Patient Corporate Planner Expl anation Advanced Directive service a donovan default Advanced Directive service a donovan default Advanced Directive Advanced Directive Advanced Directive Advanced Directive Advanced Directive Advanced Directive Advanced Directive Advanced Directive Advanced Directive Advanced Directive Advanced Directive Advanced Directive Advanced Directive Care Teams Ob/Gyn Physician Relationship Specialty Start Date End Date Jamie Wynn DO [address] [place] [address] PCP - General Family Medicine 08/08/16 documented as of this encounter"
--- OUTSIDE RECORDS SUMMARY | 2023-07-05 15:01 | External Medical Summary | Summary of Care ---
Author Name Unknown Organization [place] [address] Care Team Providers Care Fixing Carpenter Name Role Phone Jamie Wynn DO Primary Care Provider [phone] Reason for Visit * Reason Comments Outpatient Testing Encounter Details Date Type Department Care Team Description 08/19/2021 Laboratory Laboratory, Fred [address] [facility] [place] [address] Fred Lab [address] [facility] [place] [address] Arrived Allergies No Known Active Allergiesdocumented as of this encounter (statuses as of 08/19/2021) Medications Medication Sig Dispensed Refills Start Date End Date Status VITAMIN E 400 UNIT PO CAPS DAILY 0 Active MULTI-VITAMIN PO TABS one daily 0 Act lilly documented as of this encounter (statuses as of 08/19/2021) Active Problems Problem Noted Date Encounter for examination fo r normal comparison and control in clinical research program 11/21/2017 Overview: DO NOT DELETE [facility] DETECT Study: Project # [id number], Real Estate Rep: Mykel Gill, MS, MPH. SUMMARY: Goal: Establish [...] staff at ; after hours Real Estate Rep via the [facility] solid fiber paster operator . - Please contact study team before resolving/deleting from patients problem list. Study phone number: [phone]. Diagnosis changed due to Research Module. Go [...] as of this encounter (statuses as of 08/19/2021) Resolved Problems Problem Noted Date Resolved Date Encounter for examination fo r normal comparison and control in clinical research program 11/21/2017 06/01/2020 Overview: DO NOT DELETE [facility] DETECT Study: Project # [id number], Real Estate Rep: Khadar Dodd, PhD. SUMMARY: Goal: Establish test [...] staff at ; after hours Real Estate Rep via the [facility] solid fiber paster operator . Please contact study team before resolving/deleting from patients problem list. Study phone number: [phone]. Diagnosis changed due to Research Module. Go to Snapshot for study details. documented as of this encounter (statuses as of 08/19/2021) Immunizations Name Administration Dates Next Due TD [...] on file documented as of this encounter Plan of Treatment Upcoming Encounters Date Type Specialty Care Team Description 08/20/2021 Imaging Radiology 09/02/2021 Office Visit Dermatology Tri Perry MD [address] [place] [address] [phone] 10/04/2021 Office Visit Family Medicine Zofia Woodward CRNP [address] [place] [address] [phone] 08/08/2022 Office Visit Dermatology Alla Crump MD [address] [place] [address] [phone] 08/22/2022 Office Visit Family Medicine Zofia Woodward CRNP [address] [place] [address] [phone] Health Maintenance Due Date Last Done Comments Pneumococcal Vaccine: 65+ Years (1 of 2 - PPSV23) 1951 COVID-19 Vaccine (1) 1957 DTaP,Tdap,and Td Vaccines (1 - Tdap) 1964 08/18/2006, 08/18/2006, 11/14/1988 Zoster Vaccines (1 of 2) 1995 *DEPRESSION SCREENING,ANNUAL FOR PTS 12 AND OVER 07/30/2019 DIABETES SCREEN EVERY 3 YRS-AGE 45 AND ABOVE 01/26/2020 01/25/2017, 02/25/2014, 08/27/2008, Additional history exists Dexa Scan 02/08/2020 02/07/2017, 01/29, 02/20/2014, Additional history exists Influenza Vaccine (FLU shot) (#1) 2021 MENINGOCOCCAL (MENACTRA/MENVEO) Aged Out No longer eligible based on patient's age to complete this topic documented as of this encounter Implants Not on filedocumented as of this encounter Advance Directives Documents on File Type Date Recorded Patient Breast Surgeon Expl anation Advanced Directive service a donovan default Advanced Directive service a donovan default Advanced Directive Advanced Directive Advanced Directive Advanced Directive Advanced Directive Advanced Directive Advanced Directive Advanced Directive Advanced Directive Advanced Directive
--- OUTSIDE RECORDS SUMMARY | 2023-07-05 15:01 | External Medical Summary | Summary of Care ---
Author Name Unknown Organization [place] [address] Care Team Providers Care Sql Engineer Name Role Phone Jamie Wynn DO Primary Care Provider [phone]- [phone] Reason for Visit * Reason Comments Blood Pressure Check Encounter Details Date Type Department Care Team Description 11/11/2021 Nurse Only Ancillary, Fred [address] [place] [address] Fred Nurse Ancillary [address] [place] [address] Blood Pressure Check Allergies [...] research program 11/21/2017 Overview: DO NOT DELETE [facility] DETECT Study: Project # [id number], Anesthesiologists' Assistant: Mykel Gill, MS, MPH. SUMMARY: Goal: [...] contact study staff at ; after hours Anesthesiologists' Assistant via the [facility] bitumen plant operator . - Please contact study team before resolving/deleting from patients problem list. Study phone number: [phone]. Diagnosis changed due to Research Module. Go [...] 11/21/2017 06/01/2020 Overview: DO NOT DELETE [facility] DETECT Study: Project # [id number], Anesthesiologists' Assistant: Khadar Dodd, PhD. SUMMARY: Goal: Establish [...] contact study staff at ; after hours Anesthesiologists' Assistant via the [facility] bitumen plant operator . Please contact study team before resolving/deleting from patients problem list. Study phone number: [phone]. Diagnosis changed due to Research Module. Go [...] ago, Per patient she feels much improved. Wc to leave message on machine. * Sulma Mayer LPN - 11/11/2021 1:13 PM EST .b documented in this encounter Plan of Treatment Upcoming Encounters Date Type Specialty Care Team Description 08/08/2022 Office Visit Dermatology Alla Crump MD [address] [place] [phone] 08/22/2022 Office Visit Family Medicine [place], DAVID Cortez [address] [place] [address] Health Maintenance Due Date Last Done Comments [...] Documents on File Type Date Recorded Patient Com Writer Expl anation Advanced Directive service a donovan default Advanced Directive service a donovan default Advanced Directive Advanced Directive Advanced Directive Advanced Directive Advanced Directive Advanced Directive Advanced Directive Advanced Directive Advanced Directive Advanced Directive Advanced Directive Advanced Directive Advanced Directive Advanced Directive Care Teams Sql Engineer Relationship Specialty Start Date End Date Jamie Wynn, [address] [place] [address] PCP - General Family Medicine 08/08/16 documented as of this encounter
--- OUTSIDE RECORDS SUMMARY | 2023-07-05 15:01 | External Medical Summary | Summary of Care ---
Author Name Unknown Organization [place] [address] Care Team Providers Care Hearth Feeder Name Role Phone Jamie Wynn DO Primary Care Provider [phone] Reason for Visit * Reason Comments NEW PATIENT Encounter Details Date Type Department Care Team Description 08/20/2021 Office Visit General Surgery [facility] [address] [id number] Vashti Roy PA-C [address] [place], [place] [id number] Nipple lesion* Allergies No Known Active Allergiesdocumented as of [...] [facility] DETECT Study: Project # [id number], Pocketbook Maker: Mykel Gill, MS, MPH. SUMMARY: Goal: [...] contact study staff at ; after hours Pocketbook Maker via the [facility] hoop driving machine operator helper . - Please contact study team before resolving/deleting from patients problem list. Study phone number: [phone]. Diagnosis changed due to Research Module. Go [...] [facility] DETECT Study: Project # [id number], Pocketbook Maker: Khadar Dodd, PhD. SUMMARY: Goal: Establish [...] contact study staff at ; after hours Pocketbook Maker via the [facility] hoop driving machine operator helper . Please contact study team before resolving/deleting from patients problem list. Study phone number: [phone]. Diagnosis changed due to Research Module. Go [...] Sign Reading Time Taken Comments Blood Pressure 158/78 08/20/2021 11:03 AM EDT Pulse 72 08/20/2021 11:03 AM EDT Temperature 36.5 C (97.7 F) 08/20/2021 11:03 AM E DT Respiratory Rate 18 08/20/2021 11:03 AM EDT Oxygen Saturation - - Inhaled Oxygen Concentration - - Weight 56 kg (123 lb 8 oz) 08/20/2021 11:03 AM E DT Height 160 cm (5' 3") 08/20/2021 11:03 AM EDT Body Mass Index 21.88 08/20/2021 11:03 AM EDT documented in this encounter Progress Notes * Vashti Roy PA-C - 08/20/2021 11:10 AM EDT Images from the original note were not included. [facility] GENERAL SURGERY BENIGN BREAST NOTE Chief Complaint Patient presents with NEW PATIENT REASON FOR VISIT: nipple changes HPI: Reba Delaney is a 76 year old year old female who is here for evaluation of left nipple changes Onset: 4 days ago Duration: no change in size Location: left nipple Quality: raised lesion, denies itching, irritation, bleeding, and pain Severity: N/A Context: denies trauma to the skin, denies changes to skin care products/household products BREAST ROS: No new breast lumps or masses, No severe breast pain, No nipple discharge, No recent change in shape/color, Performs self breast exam and + skin lesion on left nipple RADIOLOGIC INTERPRETATION: Preliminary results of the diagnostic bilateral mammography performed today at [facility]: Findings Left MAMMOGRAM DIAGNOSTIC JOSEMANUEL BILATERAL The left breast is heterogeneously dense, which may obscure small masses. There is no evidence of suspicious masses, calcifications, or other abnormal findings in the left breast. US BREAST LIMITED LEFT The breast tissue has a homogeneous background echotexture - fibroglandular. There is no evidence of suspicious masses or other abnormal findings on targeted ultrasound of the left retroareolar region. The sonographic finding marked with calipers is favored to represent fibroglandular tissue and ducts. Right MAMMOGRAM DIAGNOSTIC JOSEMANUEL BILATERAL The right breast is heterogeneously dense, which may obscure small masses. There is no evidence of suspicious masses, calcifications, or other abnormal findings in the right breast. Impression Bilateral No mammographic evidence of malignancy. Skin changes involving the left nipple most likely represent a dermatological process. Clinical follow-up is recommended. BI-RADS Category: 2 - Benign. Recommendation Resume annual screening mammography is recommended for both breasts. RISK FACTORS FOR BREAST CANCER: Family history of breast cancer: Yes, paternal grandmother Known or suspected genetic mutation: Yes, sister with genetic mutation (unsure which), patient is apart of the DETECT study Previous suspicious breast biopsies: No, history of several benign biopsies (not sure how many, right breast, unsure about left) Clinical Research Nurse factors: No Other: Category C density GYNECOLOGIC HISTORY: Menarche at age: 14 Menopause at age: 50 Number of children: Patient's age at first live : 19 : No Oral Contraceptive Use: Yes; History of previous use, 2 Years (after having her first child) Estrogen Use: No FAMILY HISTORY: Family history of breast cancer: Paternal grandmother with breast cancer Sister with genetic mutation but did not have breast cancer, underwent prophylactic mastectomy Family history of ovarian cancer: None Family history of other cancer: Sister with skin cancer Family History Problem Relation Age of Onset Cancer Grandmother (Paternal) breast ca. dec'd Breast Cancer Grandmother (Paternal) Stroke Mother 86 CAD Heart Disorder Father 76 CAD dec'd Cancer Sister Bilateral Mastectomy PAST MEDICAL HISTORY: Past Medical History: Diagnosis Date Diffuse cystic mastopathy Diffuse cystic mastopathy Nonallopathic lesion of lumbar region 01/2006 Nonallopathic lesion of thoracic region 01/2006 Osteoarthrosis, pelvic region and thigh [address] Eller Osteoporosis update DEXA Swelling, mass, or lump in head and neck 10/2009 benign Tobacco use disorder PAST SURGICAL HISTORY: Past Surgical History: Procedure Laterality Date BIOPSY OF BREAST, OPEN fibrocystic breast dz right ? BREAST LESION,OTHER,EXCISION Breast Excision, benign tumor/cyst fibrocystic breast dz. BX LYMPH NODE-SUPERFIC 10/2009 lymph node removal L neck PATH; BENIGN Otolaryngology [facility] [place] Rajput DENTAL SURGERY PROCEDURE NEC 2007 all teeth extracted TOTAL HIP REPLACEMENT & PROSTHESIS 2005 Dr Eller CURRENT OUTPATIENT PRESCRIPTIONS: Current Outpatient Medications Medication Sig Dispense Refill MULTI-VITAMIN PO TABS one daily VITAMIN E 400 UNIT PO CAPS DAILY ALLERGIES: Allergies as of 08/20/2021 (No Known Allergies) SOCIAL HISTORY: Social History Tobacco Use Smoking status: Current Every Day Smoker Packs/day: 0.50 Years: 30.00 Pack years: 15.00 Types: Cigarettes Smokeless tobacco: Never Used Substance Use Topics Alcohol use: Yes Comment: socially mixed drink whiskey club soda, Vaping/E-Cigarette Use Vaping/E-Cigarette Substances Vaping/E-Cigarette Devices REVIEW OF SYSTEMS: CONSTITUTIONAL: No change in weight, No weakness, No fatigue and No fevers, sweats, or chills EYE: No recent significant change in vision, No eye pain, redness, discharge, No diplopia, and No h/o glaucoma, + s/p b/l cataract surgery EARS: No ear pain, No drainage, No tinnitus or vertigo and No recent change in hearing NOSE: No history of frequent colds or sinusitis, No nasal stuffiness, No history of Hay Fever and No significant epistaxis MOUTH: No bleeding gums or No sore throat NECK: No lumps or masses, No swollen glands, No recent swelling in thyroid area, No significant pain in neck and No h/o goiter or thyroid disease PULMONARY: No cough, sputum, or hemoptysis, No wheezing, No rales, No shortness of breath and No recent change in breathing CARDIOVASCULAR: No chest pain, No shortness of breath, No dyspnea on exertion, No palpitations and No syncope BREASTS: As documented above GASTROINTESTINAL: No abdominal pain, No change in bowel habits, No significant heartburn, No significant change in appetite, No nausea, vomiting, diarrhea, or constipation, No hematemesis, No blood in stools or black tarry stools, No abdominal bloating or early satiety and No dysphagia FEMALE: No dysuria, No frequency, No incontinence, No urgency and No vaginal bleeding HEMATOLOGIC: No coagulation disorder, No anemia, No abnormal bleeding, No chills, No bruising, No night sweats, No swollen nodes and No weight loss EXTREMITIES: No pain, redness or swelling on the joints + s/p left hip replacement SKIN/INTEGUMENTARY: No edema, No rash, No itching and + recently had lesions removed by Dermatology NEUROLOGIC: Normal balance, No headaches, No seizures and No weakness PSYCHIATRIC: No depression, No anxiety and No psychosis ENDOCRINE: No heat intolerance, No cold intolerance, No thyroid trouble, No excessive thirst or urination and No history of diabetes SLEEP: No sleep disorders PHYSICAL EXAMINATION: Blood pressure 158/78, pulse 72, temperature 36.5 C (97.7 F), temperature source Tympanic, resp. rate 18, height (!) 1.6 m (5' 3"), weight 56 kg (123 lb 8 oz). Constitutional: alert, healthy, well nourished Head: normocephalic, atraumatic Eyes: conjunctiva non-injected, sclera white Ears: pinna normal shape and color and canals patent Nose: unable to examine due to masking Mouth:unable to examine due to masking Neck: supple, no adenopathy, thyroid normal size, non-tender, without nodularity Lungs: clear to auscultation, breath sounds are equal and symmetric Heart: regular rate & rhythm and no murmur, gallops or rubs Abdomen: soft, non-tender Back: normal curvature, normal ROM Extremities: no joint deformities, effusion, or inflammation, no edema, no skin discoloration Neuro: alert, gait normal, motor normal Skin: no obvious rashes or significant lesions, numerous lesions on the trunk noted that are hyperpigmented and hyperkeratotic (consistent with seborrheic keratosis) : Deferred Rectal: deferred BREAST EXAMINATION: Right Breast: There is a well-healed scar in the upper breast (remote history of excisional biopsy). Inspection otherwise negative. No nipple retraction or dimpling present. No nipple discharge or bleeding noted. Normal to palpation without dominant masses. No palpable axillary or supraclavicular adenopathy. Left Breast: The There is a hyperpigmented, hyperkeratotic, raised lesion on the lower nipple consistent with seborrheic keratosis (see images below). Inspection otherwise negative. No nipple retraction or dimpling present. No nipple discharge or bleeding noted. Normal to palpation without dominant masses. No palpable axillary or supraclavicular adenopathy. ASSESSMENT: Reba Delaney is a 76 year old female who presents with left nipple lesion. Exam findings consistent with seborrheic keratosis. Today's imaging results were benign. PLAN: In conclusion, our recommendations for this patient are: - The patient was reviewed with Dr. Burnham via [employer]. Reassured the patient that the features of this lesion are not concerning for breast pathology such as Paget's disease. Most likely this is seborrheic keratosis that has developed on the nipple, as she has many similar lesions on her trunk. I asked her to follow up with her [employer] as well; she is scheduled to see Dr. Perry 09/02/2021 (she will be sent a copy of today's visit note). - Recommend annual screening mammograms as this was the first mammogram the patient has had in the past few years. - Continue self breast exams; report any concerning changes. - Return to Breast Clinic as needed. I spent a total of 30 minutes on the date of service in preparation, delivery, and documentation ofthe care provided to Reba Delaney excluding any time spent in the performance of separately billed services. Vashti Roy PA-C 08/20/2021 11:10 AM documented in this encounter Plan of Treatment Upcoming Encounters Date Type Specialty Care Team Description 09/02/2021 Office Visit Dermatology Tri Perry MD [address] [place] [address] [phone] 10/04/2021 Office Visit Family Medicine DepZofia hughes CRNP [address] [place] [address] [phone] 08/08/2022 Office Visit Dermatology Alla Crump MD [address] [place] [address] [phone] 08/22/2022 Office Visit Family Medicine DepZofia hughes CRNP [address] [place] [address] [phone] Health Maintenance Due Date Last Done Comments [...] as of this encounter Visit Diagnoses Diagnosis Nipple lesion- Primary Other specified disorders of breast documented in this encounter Advance Directives Documents on File Type Date Recorded Patient Technical Spec Expl anation Advanced Directive service a donovan default Advanced Directive service a donovan default Advanced Directive Advanced Directive Advanced Directive Advanced Directive Advanced Directive Advanced Directive Advanced Directive Advanced Directive Advanced Directive Advanced Directive Advanced Directive Advanced Directive
--- OUTSIDE RECORDS SUMMARY | 2023-07-05 15:01 | External Medical Summary | Summary of Care ---
Author Name Unknown Organization [place] [address] Care Team Providers Care Microsoft Office Instructor Name Role Phone Jamie Wynn DO Primary Care Provider [phone] Reason for Visit * Reason Comments Other rough skin around br east Encounter Details Date Type Department Care Team Description 08/19/2021 Office Visit Jasvir Rios [address] [place] [address] Zofia Woodward CRNP [address] [place] [address] Breast skin changes*; Need for pneumococcal vaccination; Need for hepatitis C screening test; Screening for condition; Vitamin D deficiency; Disorder of breast, unspecified Allergies No Known Active Allergiesdocumented as of [...] DELETE - [facility] DETECT Study: Project # [id number], Soaking Pits Supervisor: Mykel Gill, MS, MPH. SUMMARY: Goal: [...] contact study staff at ; after hours Soaking Pits Supervisor via the [facility] hospital envelope sealing machine operator . - Please contact study team before resolving/deleting from patients problem list. Study phone number: [phone]. Diagnosis changed due to Research Module. Go [...] DELETE [facility] DETECT Study: Project # [id number], Soaking Pits Supervisor: Khadar Dodd, PhD. SUMMARY: Goal: Establish [...] contact study staff at ; after hours Soaking Pits Supervisor via the [facility] hospital envelope sealing machine operator . Please contact study team before resolving/deleting from patients problem list. Study phone number: [phone]. Diagnosis changed due to Research Module. Go [...] Drinks/Week oz/Week Comments Yes socially mixed drink Root4ey club soda, Sex Assigned at Date Recorded Not on file Job Start Date Occupation Industry Not on file Not on file Not on file documented as of this encounter Last Filed Vital Signs Vital Sign Reading Time Taken Comments Blood Pressure 122/76 08/19/2021 11:19 AM EDT Pulse 68 08/19/2021 11:19 AM EDT Temperature 36.8 C (98.2 F) 08/19/2021 11:19 AM E DT Respiratory Rate 16 08/19/2021 11:19 AM EDT Oxygen Saturation 98% 08/19/2021 11:19 AM EDT Inhaled Oxygen Concentration - - Weight 55.6 kg (122 lb 9.6 oz) 08/19/2021 11:19 AM EDT Height - - Body Mass Index 21.72 07/27/2018 2:06 PM EDT documented in this encounter Patient Instructions * Patient Instructions* Amina Brizuela LPN - 08/19/2021 11:22 AM EDT ~~PATIENT INSTRUCTIONS FOR PNEUMOCOCCAL VACCINE~~ Possible side [...] documented in this encounter Progress Notes * Zofia Woodward CRNP - 08/19/2021 11:24 AM EDT Subjective: Reba Delaney is a 76 year old female. Chief Complaint Patient presents with Other rough skin around breast HPI: ACUTE VISIT Presents by self, masked, no covid sx Not had gotten vaccine There are no exam notes on file for this visit. Skin changed on left breast noticed it Monday night Has had breast cyst but no cancer in past Patient Active Problem List Diagnosis Code DIFFUS [...] VITAMIN E 400 UNIT PO CAPS DAILY Review of patient's allergies indicates: No Known Allergies OBJECTIVE: BP 122/76 (BP Site: Right Arm, BP Position: Sitting, BP Cuff Size: Regular) | Pulse 68 | Temp 36.8 C (98.2 F) (Tympanic) | Resp 16 | Wt 55.6 kg (122 lb 9.6 oz) | SpO2 98% | BMI 21.72 kg/m | BSA1.57 m Estimated body mass index is 21.72 kg/m as calculated from the following: Height as of 07/27/18: 1.6 m (5' 3"). Weight as of this encounter: 55.6 kg (122 lb 9.6 oz). BP Readings from Last 3 Encounters: 08/19/21 122/76 07/27/18 128/82 05/03/17 108/70 Wt Readings from Last 3 Encounters: 08/19/21 55.6 kg (122 lb 9.6 oz) 07/27/18 56.8 kg (125 lb 3.2 oz) 05/03/17 57.9 kg (127 lb 9.6 oz) ROS: See HPI Rest of ROS negative Has not had hysterectomy Would like pap Has not been to office since 2019 Smoker 0.5 pk/day PHYSICAL EXAM: General: alert, healthy, no distress, comfortable and cooperative Head: Normocephalic, No masses, lesions, tenderness or abnormalities Lymph: no palpable lymphadenopathy, anterior cervical , posterior cervical , axillary nodes Heart: regular rate & rhythm, no murmurs and no gallops Lungs: chest symmetric with normal AP diameter, no chest deformities noted, no chest wall tenderness, lungs clear to auscultation Breasts: No axillary or supraclavicular adenopathy, positive findings: nipple dermatitis on left sideb area 1 cm in diameter left nipple at 3-6 o'clock no discharge , fibrocystic changes ASSESSMENT/Plan Breast skin changes (Primary) - US BREAST LIMITED BILATERAL; Future; Expected date: 08/19/2021 - MAMMOGRAM DIAGNOSTIC BILATERAL; Future; Expected date: 08/19/2021 - US BREAST LIMITED BILATERAL; Future; Expected date: 08/19/2021 Need for pneumococcal vaccination - PNEUMOCOCCAL VACC, PPV23, 2 YEARS AND OLDER, IM; Future; Expected date: 08/19/2021 Need for hepatitis C screening test - HEPATITIS C ANTIBODY SCREEN WITH PROGRESSION TO HEPATITIS C RNA QUANTITATIVE; Future; Expected date: 08/19/2021 - HEPATITIS C ANTIBODY SCREEN WITH PROGRESSION TO HEPATITIS C RNA QUANTITATIVE Screening for condition - COMPREHENSIVE METABOLIC PANEL - CBC; Future; Expected date: 08/19/2021 - LIPID PANEL WITH DIRECT LDL IF TG IS HIGH - HEMOGLOBIN A1C - CBC Vitamin D deficiency - 25-HYDROXY VITAMIN D Disorder of breast, unspecified - MAMMOGRAM DIAGNOSTIC BILATERAL; Future; Expected date: 08/19/2021 Follow Up: Return in about 1 year (around 08/19/2022) for routine. | For: routine | Check-out note:Labs today Mammogram at [facility] is havig problems Pap with me in future The above was discussed and understanding was expressed. DAVID Baker, I will inform you via MyG of any tests results documented in this encounter Plan of Treatment Upcoming Encounters Date Type Specialty Care Team Description 08/20/2021 Imaging Radiology 09/02/2021 Office Visit Dermatology Tri Perry MD [address], [place] [id number] 10/04/2021 Office Visit Family Medicine Zofia Woodward CRNP [address] [facility] [place] [id number] 08/08/2022 Office Visit Dermatology Alla Crump MD [address] [place] [address] 08/22/2022 Office Visit Family Medicine [facility] [address] [facility] [place] [id number] Scheduled Orders Name Type Priority Associated Diagnoses Orde r Schedule US BREAST LIMITED BILATERAL Medical Imaging Routine Breast skin changes Expected: 08/19/2021, Expires: 09/19/2022 MAMMOGRAM DIAGNOSTIC BILATERAL Medical Imaging Routine Disorder of breast, unspecified Breast skin changes Expected: 08/19/2021, Expires: 09/19/2022 US BREAST LIMITED BILATERAL Medical Imaging Routine Breast skin changes Expected: 08/19/2021, Expires: 09/19/2022 Health Maintenance Due Date Last Done Comments [...] Procedure Name Priority Date/Time Associated Diagnosis Comments HEPATITIS C RNA ADD ON Routine 12:19 PM EDT Need for hepatitis C screening test LIPID PANEL WITH DIRECT LDL IF TG IS HIGH Routine 08/19/2021 12:19 PM EDT Screening for condition 25-HYDROXY VITAMIN D Routine 08/19/2021 12:19 PM EDT Vitamin D deficiency HEPATITIS C ANTIBODY SCREEN WITH PROGRESSION TO HEPATITIS C RNA QUANTITATIVE Routine 08/19/2021 12:19 PM EDT Need for hepatitis C screening test HEMOGLOBIN A1C Routine 08/19/2021 12:19 PM EDT Screening for condition COMPREHENSIVE METABOLIC PANEL Routine 08/19/2021 12:19 PM EDT Screening for condition HEPATITIS C ANTIBODY Routine 08/19/2021 12:19 PM EDT Need for hepatitis C screening test CBC Routine 08/19/2021 12:19 PM EDT Screening for condition documented in this encounter Results * HEPATITIS C RNA ADD ON (08/19/2021 12:19 PM EDT) Specimen Blood - Venous blood specime n (specimen) LABORATORY [facility] [address] [place] [address] * HEPATITIS C ANTIBODY (08/19/2021 12:19 PM EDT) Hepatitis C Antibody NegativeComment:Furth er HCV quantitative testing not performed per protocol. Negative LABORATORY [facility] Specimen Blood - Venous blood specime n (specimen) LABORATORY [facility] [address] [place] [address] * HEMOGLOBIN A1C (08/19/2021 12:19 PM EDT) Hemoglobin A1C 5.6Comment:The use of HbA1c to monitor glycemic status is based on normal hemoglobin and HbA composition. This test should not be used in patients with abnormal hemoglobin that affects the half life of the red blood cell or the in vivo glycation rates. 4.0 - 5.6 % LAB[facility]ATORY [facility] Estimated Average Glucose 114 <126 mg/dL [facility] Specimen Blood - Venous blood specime n (specimen) Performing Organization Address [facility] Co de Phone Number LABORATORY [facility] [address] [place] [address] * LIPID PANEL WITH DIRECT LDL IF TG IS HIGH (08/19/2021 12:19 PM EDT) Triglycerides 119 Comment: Triglyceride Reference Ranges (mg/dL): <150 Acceptable 150-174 Borderline high 175-499 High >=500 Very high <=174 mg/dL LAB[facility] Cholesterol 229(H) Comment: Total Cholesterol Reference Ranges (mg/dL): <200 Desirable 200-239 Borderline high >=240 High <200 mg/dL LAB[facility] HDL Cholesterol 70 Comment: HDL Cholesterol Reference Ranges (mg/dL): >=60 High (Desirable) <50 Low (Undesirable) For Females <40 Low (Undesirable) For Males >49 mg/dL [facility] Non-HDL Cholesterol 159 Comment: Non-HDL Cholesterol Reference Range (mg/dL): <100 Target level for high risk ASCVD patient <130 Optimal for general population 130-159 Near optimal for general population 160-189 Borderline High 190-219 High >=220 Very High <=159 mg/dL [facility] LDL Cholesterol 135(H) Comment: LDL Cholesterol Reference Ranges (mg/dL): <70 Target level for high risk ASCVD patient <100 Optimal for general population 100-129 Near optimal for general population 130-159 Borderline high 160-189 High >=190 Very high <=129 mg/dL [facility] Specimen Blood - Venous blood specime n (specimen) Performing Organization Address [facility] Co de Phone Number LABORATORY [facility] [address] [place] [address] * CBC (08/19/2021 12:19 PM EDT) WBC 7.97 4.00 - 10.80 K/uL LAB[facility]ATORY [facility] RBC 4.93 3.85 - 5.15 M/uL LAB[facility] HGB 14.9 12.0 - 15.3 g/dL LAB[facility] HCT 43.6 36.0 - 45.2 % LAB[facility] MCV 88.4 81.5 - 97.5 fL LAB[facility] MCH 30.2 27.0 - 34.0 pg LAB[facility] MCHC 34.2 32.0 - 36.0 g/dL LAB[facility] RDW 14.4 11.5 - 15.5 % LAB[facility] MPV 10.5 6.6 - 11.1 fL LAB[facility] Nucleated RBC 0 <=0 /100 WBCs LAB[facility]ORY [facility] Plt 319 140 - 400 K/uL [facility] Specimen Blood - Venous blood specime n (specimen) LAB[facility]ORY [facility] [address] [place] [address] * COMPREHENSIVE METABOLIC PANEL (08/19/2021 12:19 PM EDT) BUN 10 6 - 20 mg/dL [facility] Creatinine 0.9 0.5 - 1.0 mg/dL [facility] Estimated Glomerular Filtration Rate 66.8Comment:If patient is , multiply estimated GFR by 1.159. >=60.0 mL/min [facility] Sodium 141 135 - 146 mmol/L [facility] Potassium 4.8 3.5 - 5.1 mmol/L [facility] Chloride 103 98 - 107 mmol/L [facility] CO2 27 22 - 32 mmol/L [facility] Anion Gap 11 7 - 15 mmol/L [facility] Glucose 87 70 - 120 mg/dL [facility] Albumin 4.6 3.8 - 5.0 g/dL [facility] AST 20 10 - 35 U/L [facility] Alkaline Phosphatase 88 35 - 130 U/L [facility] H Bilirubin, Total 0.4 <=1.2 mg/dL [facility] Calcium 9.8 8.4 - 10.2 mg/dL [facility] Protein 7.8 6.0 - 8.3 g/dL [facility] ALT 10 10 - 35 U/L [facility] Specimen Blood - Venous blood specime n (specimen) [facility]ORY [facility] [address] [place] [address] * 25-HYDROXY VITAMIN D (08/19/2021 12:19 PM EDT) 25-Hydroxy Vitamin D 23 >19 ng/mL [facility] Specimen Blood - Venous blood specime n (specimen) Narrative Performed At Deficient: <20 ng/mL Insufficient: 20-29 ng/mL Recommended/Optimum:30-50 ng/mL Vitamin D intoxication is rare. If suspicious of Vitamin D toxicity, evaluation of serum Calcium and PTH is recommended. LAB[facility]ATORY [facility] Performing Organization Address [facility] Co de Phone Number LABORATORY [facility] [address] [place] [address] documented in this encounter Visit Diagnoses Diagnosis Breast skin changes- Primary Changes in skin texture Need for pneumococcal vaccination Need for prophylactic vaccination against streptococcus pneumoniae (pneumococcus) Need for hepatitis C screening test Special screening examination for other specified viral diseases Screening for condition Screening for unspecified condition Vitamin D deficiency Unspecified vitamin D deficiency Disorder of breast, unspecified documented in this encounter Advance Directives Documents on File Type Date Recorded Patient Pen Maker Expl anation Advanced Directive service a donovan default Advanced Directive service a donovan default Advanced Directive Advanced Directive Advanced Directive Advanced Directive Advanced Directive Advanced Directive Advanced Directive Advanced Directive Advanced Directive Advanced Directive
--- OUTSIDE RECORDS SUMMARY | 2023-07-05 15:01 | External Medical Summary | Summary of Care ---
Author Name Unknown Organization [place] [address] Care Team Providers Care Packaging Technician Name Role Phone Jamie Wynn DO Primary Care Provider [phone] Reason for Visit * Reason Comments Mohs Surgery * Evaluate & Treat - Unlimited Visits (Within 30 days (routine)) Status Reason Specialty Diagnoses / Procedures Referred By Contact Referred To Contact Closed Specialty Services Required Dermatology Diagnoses Basal cell carcinoma (BCC) of skin of face, unspecified part of face Alla Crump MD [address] [place] [address] Encounter Details Date Type Department Care Team Description 09/02/2021 Office Visit [facility] [address] [id number] Tri Perry MD [address] [place] [address] [phone] Basal cell carcinoma (BCC) of right lateral [...] program 11/21/2017 Overview: DO NOT DELETE - [employer] DETECT Study: Project # [id number], Rad Technologist: Mykel Gill, MS, MPH. SUMMARY: Goal: Establish [...] contact study staff at ; after hours Rad Technologist via the [facility] hospital buffer operator . - Please contact study team before resolving/deleting from patients problem list. Study phone number: [phone]. Diagnosis changed due to Research Module. Go [...] The [facility] DETECT Study: Project # [id number], Rad Technologist: Khadar Dodd, PhD. SUMMARY: Goal: Establish test [...] contact study staff at ; after hours Rad Technologist via the [facility] hospital buffer operator . Please contact study team before resolving/deleting from patients problem list. Study phone number: [phone]. Diagnosis changed due to Research Module. Go [...] Visit Family Medicine Zofia Woodward CRNP [address] [place] [address] [phone] 08/08/2022 Office Visit Dermatology Alla Crump MD [address] [place] [id number] 08/22/2022 Office Visit Family Zofia De La Rosa CRNP [address] [place] [phone] Scheduled Orders Name Type Priority Associated Diagnoses [...] Documents on File Type Date Recorded Patient Hospital Scientist Expl anation Advanced Directive service a donovan default Advanced Directive service a donovan default Advanced Directive Advanced Directive Advanced Directive Advanced Directive Advanced Directive Advanced Directive Advanced Directive Advanced Directive Advanced Directive Advanced Directive Advanced Directive Advanced Directive
--- OUTSIDE RECORDS SUMMARY | 2023-07-05 15:02 | External Medical Summary ---
Author Name Unknown Address Unknown Organization K01:LABORATORY [facility] - [address] [place] [address] Laboratory Report Ordering Provider Test Date Status KADEEM GUERRERO 08/19/2021 12:19:11 Final Observation Date Value Abnormality Reference (Units ) Status 25-OH Vitamin D total 08/19/2021 12:19:11 23 >19 (ng/mL) Final Performing Location [facility] - [address] [place] [address]
--- OUTSIDE RECORDS SUMMARY | 2023-07-05 15:02 | External Medical Summary ---
Author Name Unknown Address Unknown Organization K1H:LABORATORY [facility] - [address] [place] [address] Laboratory Report Ordering Provider Test Date Status CESAR,DEPOE 08/19/2021 12:19:11 Final Observation Date Value Abnormality Reference (Units ) Status WBC, Total 08/19/2021 12:19:11 7.97 4.00-10.80 (K/uL) Final RBC 08/19/2021 12:19:11 4.93 3.85-5.15 (M/uL) Final Hemoglobin 08/19/2021 12:19:11 14.9 12.0-15.3 (g/dL) Final HCT 08/19/2021 12:19:11 43.6 36.0-45.2 (%) Final MCV 08/19/2021 12:19:11 88.4 81.5-97.5 (fL) Final MCH 08/19/2021 12:19:11 30.2 27.0-34.0 (pg) Final MCHC 08/19/2021 12:19:11 34.2 32.0-36.0 (g/dL) Final RDW 08/19/2021 12:19:11 14.4 11.5-15.5 (%) Final MPV 08/19/2021 12:19:11 10.5 6.6-11.1 (fL) Final Nucleated erythrocytes/100 leukocytes [Ratio] in Blood by Automated count 08/19/2021 12:19:11 0 <=0 (/100 WBCs) Final Platelets 08/19/2021 12:19:11 319 140-400 (K/uL) Final Performing Location LABORATORY [facility] - [address] [place] [address]
--- OUTSIDE RECORDS SUMMARY | 2023-07-05 15:02 | External Medical Summary | Summary of Care ---
Author Name Unknown Organization [place] [address] Care Team Providers Care Bridge Inspector Name Role Phone Jamie Wynn DO Primary Care Provider [phone] Reason for Visit * Reason Onset Date Comments Appointment 08/17/2021 Encounter Details Date Type Department Care Team Description 08/17/20[facility] [address] [place] [address] Jamie Wynn DO [address] [place] [address] Appointment Allergies No Known Active Allergiesdocumented as of this encounter (statuses as of 08/17/2021) Medications Medication Sig Dispensed Refills Start Date End Date Status VITAMIN E 400 UNIT PO CAPS DAILY 0 Active MULTI-VITAMIN PO TABS one daily 0 Act lilly documented as of this encounter (statuses as of 08/17/2021) Active Problems Problem Noted Date Encounter for examination fo r normal comparison and control in clinical research program 11/21/2017 Overview: DO NOT DELETE - [facility] DETECT Study: Project # [id number], Engineering Document Control Clerk: Mykel Gill, MS, MPH. SUMMARY: Goal: [...] contact study staff at ; after hours Engineering Document Control Clerk via the [facility] hospital bump grader operator . - Please contact study team before resolving/deleting from patients problem list. Study phone number: [phone]. Diagnosis changed due to Research Module. Go [...] as of this encounter (statuses as of 08/17/2021) Resolved Problems Problem Noted Date Resolved Date Encounter for examination fo r normal comparison and control in clinical research program 11/21/2017 06/01/2020 Overview: DO NOT DELETE [facility] DETECT Study: Project # [id number], Engineering Document Control Clerk: Khadar Dodd, PhD. SUMMARY: Goal: Establish [...] contact study staff at ; after hours Engineering Document Control Clerk via the [facility] hospital bump grader operator . Please contact study team before resolving/deleting from patients problem list. Study phone number: [phone]. Diagnosis changed due to Research Module. Go to Snapshot for study details. documented as of this encounter (statuses as of 08/17/2021) Immunizations Name Administration Dates Next Due TD [...] encounter Miscellaneous Notes * Telephone Encounter - Rebekah Fonseca MED ASSIST - 08/17/2021 12:54 PM EDT Pt scheduled to be seen Pt aware * Telephone Encounter - Willa Frias OSA - 08/17/2021 8:49 AM EDT No appointments available. Patient declined appointments?: no Was patient offered appointments with other available providers (Yes/No)? yes If No, explain See Call Details? (Yes or No):yes Patient found a lump on left breast and is worried that it may be something significant. There are no acute appoints and no return appointments until 09/29.Please assist patient. documented in this encounter Plan of Treatment Upcoming Encounters Date Type Specialty Care Team Description 08/19/2021 Office Visit Family Medicine [place], DAVID Cortez [address] [place] [address] [phone] 09/02/2021 Office Visit Dermatology Tri Perry MD [address] [place], [place] [phone] 08/08/2022 Office Visit Dermatology Alla Crump MD [address] [place] [address] Health Maintenance Due Date Last [...] Documents on File Type Date Recorded Patient Economic Manager Expl anation Advanced Directive service a donovan default Advanced Directive service a donovan default Advanced Directive Advanced Directive Advanced Directive Advanced Directive Advanced Directive Advanced Directive
--- OUTSIDE RECORDS SUMMARY | 2023-07-05 15:02 | External Medical Summary | Summary of Care ---
Author Name Unknown Organization [place] [address] Care Team Providers Care Rac Specialist Name Role Phone Jamie Wynn DO Primary Care Provider [phone] Reason for Visit * Reason Onset Date Comments Health Maintenance 03/18/2021 Encounter Details Date Type Department Care Team Description 03/18/[address] [facility], [place] [address] [place] [address] Jamie Wynn DO [address] [place] [address] Health Maintenance Allergies No Known Active Allergiesdocumented as of this encounter (statuses as of 03/18/2021) Medications Medication Sig Dispensed Refills Start Date End Date Status VITAMIN E 400 UNIT PO CAPS DAILY 0 Active MULTI-VITAMIN PO TABS one daily 0 Act lilly documented as of this encounter (statuses as of 03/18/2021) Active Problems Problem Noted Date Encounter for examination fo r normal comparison and control in clinical research program 11/21/2017 Overview: DO NOT DELETE - [facility] DETECT Study: Project # [id number], Pile Driver Operator: Mykel Gill, MS, MPH. SUMMARY: Goal: [...] contact study staff at ; after hours Pile Driver Operator via the [facility] hospital twitchell operator . - Please contact study team before resolving/deleting from patients problem list. Study phone number: [phone]. Diagnosis changed due to Research Module. Go [...] as of this encounter (statuses as of 03/18/2021) Resolved Problems Problem Noted Date Resolved Date Encounter for examination fo r normal comparison and control in clinical research program 11/21/2017 06/01/2020 Overview: DO NOT DELETE [facility] DETECT Study: Project # [id number], Pile Driver Operator: Khadar Dodd, PhD. SUMMARY: Goal: Establish [...] contact study staff at ; after hours Pile Driver Operator via the [facility] hospital twitchell operator . Please contact study team before resolving/deleting from patients problem list. Study phone number: [phone]. Diagnosis changed due to Research Module. Go to Snapshot for study details. documented as of this encounter (statuses as of 03/18/2021) Immunizations Name Administration Dates Next Due TD - Tetanus/Diptheria (ADULT) 08/18/2006,1988 documented as of this encounter Social History Tobacco Use Types Packs/Day Years Used Date Current Every Day Smoker Cigarettes 0.5 30 Alcohol Use Drinks/Week oz/Week Comments Yes socially mixed drink whiskey club soda, Sex Assigned at Date Recorded Not on file documented as of this encounter Miscellaneous Notes * Telephone Encounter - Deepak Ratliff LPN - 03/18/2021 5:20 PM EDT Care Gaps Comprehensive Care Outreach Last Office/Telemedicine Visit: Last Office/Telemedicine Visit: 07/27/2018 Next Office Visit: Next Office Visit: No Future Appointments Reviewed Health Maintenance below Health Maintenance Topic Date Due Pneumococcal Vaccine: 65+ Years (1 of 2 - PPSV23) Never done COVID-19 Vaccine (1) Never done DTaP,Tdap,and Td Vaccines (1 - Tdap) 1964 Zoster Vaccines (1 of 2) Never done *DEPRESSION SCREENING,ANNUAL FOR PTS 12 AND OVER Never done DIABETES SCREEN EVERY 3 YRS-AGE 45 AND ABOVE 01/26/2020 Dexa Scan 02/08/2020 Influenza Vaccine (FLU shot) (Season Ended) 2021 MENINGOCOCCAL (MENACTRA/MENVEO) Aged Out Care Gap Outreach Action Taken: Unable to reach: Left message. PCP/AWV as well documented in this encounter Plan of Treatment Health Maintenance Due Date Last Done Comments [...] exists Influenza Vaccine (FLU shot) (Season Ended) 2021 MENINGOCOCCAL (MENACTRA/MENVEO) Aged Out No longer eligible based on patient's age to complete this topic documented as of this encounter Implants Not on filedocumented as of this encounter Advance Directives Documents on File Type Date Recorded Patient Numerical Control Tool Programmer Expl anation Advanced Directive service a donovan default Advanced Directive service a donovan default Advanced Directive Advanced Directive
--- OUTSIDE RECORDS SUMMARY | 2023-07-05 15:02 | External Medical Summary ---
Author Name Unknown Address Unknown Organization K01:LABORATORY [facility] - [address] [place] [address] Laboratory Report Ordering Provider Test Date Status KADEEM GUERRERO 08/19/2021 12:19:12 Final Observation Date Value Abnormality Reference (Units ) Status HbA1C 08/19/2021 12:19:12 5.6 4.0-5.6 (% ) Final Performing Location LABORATORY [facility] - [address] [place] [address]
--- OUTSIDE RECORDS SUMMARY | 2023-07-05 15:02 | External Medical Summary | Summary of Care ---
Author Name Unknown Organization [place] [address] Care Team Providers Care Superintendent Electric Power Name Role Phone Jamie Wynn DO Primary Care Provider [phone] Encounter Details Date Type Department Care Team Description 02/11/2020 Orders Only Outcomes Research Department [address], [place] [id number] Christopher Saba CHRA [facility] Research Other*[id number] Allergies No Known Allergiesdocumented as of this encounter (statuses as of 02/11/2020) Medications Medication Sig Dispensed Refills Start Date End Date Status VITAMIN E 400 UNIT PO CAPS DAILY 0 Active MULTI-VITAMIN PO TABS one daily 0 Act lilly documented as of this encounter (statuses as of 02/11/2020) Active Problems Problem Noted Date DETECT Research Study*[id number] Overview: DO NOT DELETE [facility] DETECT Study: Project # [id number], Automotive Designer: Khadar Dodd, PhD. SUMMARY: Goal: Establish [...] contact study staff at ; after hours Automotive Designer via the [facility] hospital pressure test operator . Please contact study team before resolving/deleting from patients problem list. Study phone number: [phone]. Cataract 08/08/2016 Family hx-breast malignancy 08/08/2016 Overview: [...] as of this encounter (statuses as of 02/11/2020) Immunizations Name Administration Dates Next Due TD [...] file Not on file Not on file Travel History Travel Start Travel End documented as of this encounter Plan of Treatment Scheduled Orders Name Type Priority Associated Diagnoses Orde r Schedule MYCODE INITIAL ADULT Lab Routine MyCode Research Other*[id number] Expected: 02/11/2020 (Approximate), Expires: 03/02/2021 Health Maintenance Due Date Last Done Comments DTaP,Tdap,and Td Vaccines (1 - Tdap) 1956 08/18/2006, 08/18/2006, 11/14/1988 Zoster Vaccines (1 of 2) 1995 Pneumococcal Vaccine: 65+ Years (1 of 2 - PCV13) 2010 BREAST CANCER SCREENING DISCUSSION YEARLY AGES 40-75 02/07/2018 02/07/2017, 12/03/2015, 02/20/2014, Additional history exists Influenza Vaccine (FLU shot) (#1) 2019 *DEPRESSION SCREENING,ANNUAL FOR PTS 12 AND OVER 07/30/2019 DIABETES SCREEN EVERY 3 YRS-AGE 45 AND ABOVE 01/26/2020 01/25/2017, 02/25/2014, 08/27/2008, Additional history exists DXA-EVERY 3 YRS-USE SMARTSET# [id number] TO ORDER 02/08/2020 02/07/2017, 02/20/2014, 07/06/1999 LIPID SCREEN EVERY 5 YRS-WOMEN AGE 45-75 01/25/2022 01/25/2017, 02/25/2014, 03/10/2006, Additional history exists MENINGOCOCCAL (MENACTRA/MENVEO) Aged Out No longer eligible based on patient's age to complete this topic documented as of this encounter Implants Not on filedocumented as of this encounter Visit Diagnoses Diagnosis MyCode Research Other*[id number] documented in this encounter Advance Directives Documents on File Type Date Recorded Patient Mason Helper Expl anation Advanced Directive service a donovan default Advanced Directive service a donovan default Advanced Directive Advanced Directive
--- OUTSIDE RECORDS SUMMARY | 2023-07-05 15:02 | External Medical Summary | Summary of Care ---
Author Name Unknown Organization [place] [address] Care Team Providers Care Stoker Erector And Servicer Name Role Phone Jamie Wynn DO Primary Care Provider [phone] Reason for Visit * Reason Comments Previsit Planning Encounter Details Date Type Department Care Team Description 07/10/2019 Telephone [facility], [place] [address] [place] [address] Jamie Wynn DO [address] [place] [address] Previsit Planning Allergies No Known Allergiesdocumented as of this encounter (statuses as of 07/10/2019) Medications Medication Sig Dispensed Refills Start Date End Date Status VITAMIN E 400 UNIT PO CAPS DAILY 0 Active MULTI-VITAMIN PO TABS one daily 0 Act lilly documented as of this encounter (statuses as of 07/10/2019) Active Problems Problem Noted Date DETECT Research Study*[id number] Overview: DO NOT DELETE [facility] DETECT Study: Project # [id number], Software Developer Mid Level: Khadar Dodd, PhD. SUMMARY: Goal: Establish test [...] contact study staff at ; after hours Software Developer Mid Level via the [facility] hospital production boring machine operator . Please contact study team before resolving/deleting from patients problem list. Study phone number: [phone]. Cataract 08/08/2016 Family hx-breast malignancy 08/08/2016 Overview: [...] as of this encounter (statuses as of 07/10/2019) Immunizations Name Administration Dates Next Due TD [...] Travel End documented as of this encounter Miscellaneous Notes * Telephone Encounter - David Velazquez, MED ASSIST - 07/10/2019 3:12 PM EDT Patient contacted for Care Gaps Comprehensive Care Outreach. Last Office Visit: 07/27/2018 Next Office Visit: No Future Appointments Health Maintenance Topic Date Due DTaP,Tdap,and Td Vaccines (1 - Tdap) 08/19/2006 PNEUMOCOCCAL ADULT 65 YRS AND OVER (1 of 2 - PCV13) 2010 BREAST CANCER SCREENING DISCUSSION YEARLY AGES 40-75 02/07/2018 Influenza Vaccine (FLU shot) (1) 06/30/2019 DIABETES SCREEN EVERY 3 YRS-AGE 45 AND ABOVE 01/26/2020 LIPID SCREEN EVERY 5 YRS-WOMEN AGE 45-75 01/25/2022 DXA-SCREENING EVERY 7 YRS-USE SMARTSET# 3348 TO ORDER 02/08/2024 MENINGOCOCCAL (MENACTRA) Aged Out Outreach action taken: Contacted: Unable to reach - No phone #/Invalid #/No Voicemail. No answer. documented in this encounter Plan of Treatment Health Maintenance Due Date Last Done Comments DTaP,Tdap,and Td Vaccines (1 - Tdap) 08/19/2006 08/18/2006, 08/18/2006, 11/14/1988 PNEUMOCOCCAL ADULT 65 YRS AND OVER (1 of 2 - PCV13) 2010 BREAST CANCER SCREENING DISCUSSION YEARLY AGES 40-75 02/07/2018 02/07/2017, 12/03/2015, 06/27/2006, Additional history exists Influenza Vaccine (FLU shot) (#1) 2019 DIABETES SCREEN EVERY 3 YRS-AGE 45 AND ABOVE 01/26/2020 01/25/2017, 02/25/2014, 08/27/2008, Additional history exists LIPID SCREEN EVERY 5 YRS-WOMEN AGE 45-75 01/25/2022 01/25/2017, 02/25/2014, 03/10/2006, Additional history exists DXA-SCREENING EVERY 7 YRS-USE SMARTSET# 3348 TO ORDER 02/08/2024 02/07/2017, 07/06/1999 MENINGOCOCCAL (MENACTRA) Aged Out No longer eligible based on patient's age to complete this topic documented as of this encounter Implants Not on filedocumented as of this encounter Advance Directives Documents on File Type Date Recorded Patient Singer Back Tender Expl anation Advanced Directive service a donovan default Advanced Directive service a donovan default Advanced Directive Advanced Directive
--- OUTSIDE RECORDS SUMMARY | 2023-07-05 15:02 | External Medical Summary | Summary of Care ---
Author Name Unknown Organization [place] [address] Care Team Providers Care Assistant To The Vice President Name Role Phone Jamie Wynn DO Primary Care Provider [phone] Encounter Details Date Type Department Care Team Description 03/08/2021 Orders Only Outcomes Research Department [address], [place] [id number] Christopher Saba CHRA [facility] Research Other*[id number] Allergies No Known Active Allergiesdocumented as of this encounter (statuses as of 03/08/2021) Medications Medication Sig Dispensed Refills Start Date End Date Status VITAMIN E 400 UNIT PO CAPS DAILY 0 Active MULTI-VITAMIN PO TABS one daily 0 Act lilly documented as of this encounter (statuses as of 03/08/2021) Active Problems Problem Noted Date Encounter for examination fo r normal comparison and control in clinical research program 11/21/2017 Overview: DO NOT DELETE [facility] DETECT Study: Project # [id number], Brim Buster: Mykel Gill, MS, MPH. SUMMARY: Goal: Establish [...] contact study staff at ; after hours Brim Buster via the [facility] hospital air support operations operator . - Please contact study team before resolving/deleting from patients problem list. Study phone number: [phone]. Diagnosis changed due to Research Module. Go [...] as of this encounter (statuses as of 03/08/2021) Resolved Problems Problem Noted Date Resolved Date Encounter for examination fo r normal comparison and control in clinical research program 11/21/2017 06/01/2020 Overview: DO NOT DELETE [facility] DETECT Study: Project # [id number], Brim Buster: Khadar Dodd, PhD. SUMMARY: Goal: Establish test [...] contact study staff at ; after hours Brim Buster via the [facility] hospital air support operations operator . Please contact study team before resolving/deleting from patients problem list. Study phone number: [phone]. Diagnosis changed due to Research Module. Go to Snapshot for study details. documented as of this encounter (statuses as of 03/08/2021) Immunizations Name Administration Dates Next Due TD [...] MYCODE INITIAL ADULT Lab Routine MyCode Research Other*[id number] Expected: 03/08/2021 (Approximate), Expires: 03/28/2022 Health Maintenance Due Date Last Done Comments Pneumococcal Vaccine: 65+ Years (1 of 2 - PPSV23) 1951 DTaP,Tdap,and Td Vaccines (1 - Tdap) 1964 [...] this encounter Visit Diagnoses Diagnosis MyCode Research Other*[id number] documented in this encounter Advance Directives Documents on File Type Date Recorded Patient Reconciling Clerk Expl anation Advanced Directive service a donovan default Advanced Directive service a donovan default Advanced Directive Advanced Directive
--- OUTSIDE RECORDS SUMMARY | 2023-07-05 15:02 | External Medical Summary | Summary of Care ---
Author Name Unknown Organization [place] [address] Care Team Providers Care Network Support Engineer Name Role Phone Mayco Wynn DO Primary Care Provider [phone] Reason for Visit * Reason Comments NEW PATIENT mole check Encounter Details Date Type Department Care Team Description 07/28/2021 Office Visit Dermatology [facility] [address] [place] [address] Alla Crump MD [address] [place] [address] Skin neoplasm*; Inflamed seborrheic keratosis Allergies No Known Active Allergiesdocumented as of this encounter (statuses as of 07/28/2021) Medications Medication Sig Dispensed Refills Start Date End Date Status VITAMIN E 400 UNIT PO CAPS DAILY 0 Active MULTI-VITAMIN PO TABS one daily 0 Act lilly documented as of this encounter (statuses as of 07/28/2021) Active Problems Problem Noted Date Encounter for examination fo r normal comparison and control in clinical research program 11/21/2017 Overview: DO NOT DELETE - [facility] DETECT Study: Project # [id number], Muck Miner Blasting: Mykel Gill, MS, MPH. SUMMARY: Goal: Establish [...] contact study staff at ; after hours Muck Miner Blasting via the [facility] hospital equipment operator/laborer/supervisor . - Please contact study team before resolving/deleting from patients problem list. Study phone number: [phone]. Diagnosis changed due to Research Module. Go [...] as of this encounter (statuses as of 07/28/2021) Resolved Problems Problem Noted Date Resolved Date Encounter for examination fo r normal comparison and control in clinical research program 11/21/2017 06/01/2020 Overview: DO NOT DELETE [facility] DETECT Study: Project # [id number], Muck Miner Blasting: Khadar Dodd, PhD. SUMMARY: Goal: Establish test [...] contact study staff at ; after hours Muck Miner Blasting via the [facility] hospital equipment operator/laborer/supervisor . Please contact study team before resolving/deleting from patients problem list. Study phone number: [phone]. Diagnosis changed due to Research Module. Go to Snapshot for study details. documented as of this encounter (statuses as of 07/28/2021) Immunizations Name Administration Dates Next Due TD [...] on file documented as of this encounter Progress Notes * Alla Crump MD - 07/28/2021 9:30 AM EDT SUBJECTIVE: CC: have many moles HPI: Reba Delaney is a 76 year old female seen at the request of Mayco Wynn DO for a full skin check and evaluation and treatment of skin check and moles check. Mole in the rt hairline that is bothering her, catching on brush and glasses rub it, peels off and comes back. Lump on the left side of neck. DERMATOLOGIC HISTORY: H/o skin disorders: no H/o skin cancer: no Sunscreen use: no FAMILY HISTORY: no REVIEW OF SYSTEMS: CONSTITUTIONAL: No nausea, vomitting, fevers, chills, diarrhea, unintended weight loss, fatigue, loss of appetite SKIN: No new or changing moles or rashes other than those noted in HPI HEME/LYMPH: No new or enlarging lumps or bumps MOUTH/LIPS: Negative or as per HPI LIDS/EYES: Negative or as per HPI MSK/EXT: Negative or as per HPI NAILS: Negative or as per HPI HAIR: Negative or as per HPI Rest as per HPI Past Medical History: Diagnosis Date Diffuse cystic mastopathy Diffuse cystic mastopathy Nonallopathic lesion of lumbar region 01/2006 Nonallopathic lesion of thoracic region 01/2006 Osteoarthrosis, pelvic region and thigh [address] Eller Osteoporosis update DEXA Swelling, mass, or lump in head and neck 10/2009 benign Tobacco use disorder Patient Active Problem List Diagnosis Code DIFFUS [...] and control in clinical research program Z00.6 SOCIAL HISTORY: Social History Tobacco Use Smoking status: Current Every Day Smoker Packs/day: 0.50 Years: 30.00 Pack years: 15.00 Types: Cigarettes Substance Use Topics Alcohol use: Yes Comment: socially mixed drink whiskey club soda, Vaping/E-Cigarette Use Vaping/E-Cigarette Substances Vaping/E-Cigarette Devices 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 OBJECTIVE: GEN: Healthy, alert, no distress, appears oriented, pleasant and cooperative. SKIN: Detailed exam of face including lids and lips, neck, chest, abdomen, back, palpation of scalp, right and left upper extremities, right and left lower extremities and nails and digits completed and are normal except: A. On the right preauricular area is 8 mm pink, pearly plaque with central erosion. B Located on the Left supraclavicular area is a 1.0 cm craig-brown hyperkeratotic stuck-on appearing waxy papule. C.At the trunk and extremities are several scattered craig/brown hyperkeratotic stuck on appearing waxy papules. ASSESSMENT/PLAN: 1. Skin Neoplasm Tangential Biopsy: 1 lesion(s) biopsied Location(s): A. Right preauricular - DDx: BCC Tangential biopsy was recommended which the patient was agreeable to. The risks, benefits, indications, alternatives, and complications were discussed, and informed consent was obtained. Specifically, the expectation of a permanent scar and risk of possible infection were explained and understood. A pre-procedure time-out was performed to verify the procedure, site and appropriate supplies. We cleaned the site(s) with alcohol and anesthetized with 2.5 ml of 0.5% lidocaine with epinephrine at 1:200,000 concentration. Biopsy via horizontal technique was performed. Hemostasis was obtained with aluminum chloride. Bandage was applied. The patient tolerated the procedure well without complications and with minimal blood loss. Written wound care instructions were given. Specimen(s) sent to pathology. We will call with biopsy results and arrange appropriate follow-up care as indicated. 2. Inflamed seborrheic keratosis. - Treated with shave removal due to symptoms and clinical evidence of inflammation. - Shave of the lesion noted above to remove and confirm diagnosis. The procedure, risks, benefits, alternatives and expected outcomes were discussed with the patient and consent was obtained. Time out called. Patient identified, procedure verified, site identified and verified. Patient and staff present in agreement. Area prepped with alcohol and anesthetized using 0.5% lidocaine with epinephrineat 1:200,000 concentration. Shave of lesion performed. 20% AlCl and bandaging applied. Specimen sent to pathology. Patient instructed in routine post-op care. 3. Seborrheic keratoses - The benign nature of these lesions was discussed with the patient and that no treatment is indicated today. Follow-up: 1 year Will contact by: Patient Phone Numbers The patient was encouraged to contact me with any further questions or concerns. All current questions were answered today. Alla Crump MD 07/27/2021 8:24 AM Dermatology [facility] [address] [address] Ref: MAYCO WYNN[[id number]] [address] [place] [address] (office) [phone] (fax) PCP: MAYCO WYNN [address] [place] [address] [phone] documented in this encounter Plan of Treatment Upcoming Encounters Date Type Specialty Care Team Description 08/08/2022 Office Visit Dermatology Alla Crump MD [address] [place] [address] [phone] Scheduled Orders Name Type Priority Associated Diagnoses Orde r Schedule SURGICAL PATHOLOGY Pathology Routine Skin neoplasm Inflamed seborrheic keratosis Ordered: 07/28/2021 Health Maintenance Due Date Last Done Comments [...] as of this encounter Visit Diagnoses Diagnosis Skin neoplasm- Primary Neoplasm of unspecified nature of bone, soft tissue, and skin Inflamed seborrheic keratosis documented in this encounter Advance Directives Documents on File Type Date Recorded Patient Development Technical Lead Expl anation Advanced Directive service a donovan default Advanced Directive service a donovan default Advanced Directive Advanced Directive Advanced Directive Advanced Directive
--- OUTSIDE RECORDS SUMMARY | 2023-07-05 15:02 | External Medical Summary | Summary of Care ---
Author Name Unknown Organization [place] [address] Care Team Providers Care Silk Trimmer Name Role Phone Jamie Wynn DO Primary Care Provider [phone] Reason for Referral * Evaluate & Treat - Unlimited Visits (Within 30 days (routine)) Status Reason Specialty Diagnoses / Procedures Referred By Contact Referred To Contact Authorized Specialty Services Required Dermatology Diagnoses Basal cell carcinoma (BCC) of skin of face, unspecified part of face Alla Crump MD [address] [place] [id number] Question Answer Referral Priority Within 30 days (routine) Are you referring the patient for Mohs Surgery and have a current positive skin cancer biopsy result? Yes Does this patient need to be scheduled in [facility]? Yes Type of Procedure MOHS Surgery Comments BCC right preauricular area. Pt requesting Dr. Perry Electronically signed by Alla Crump MD at Reason for Visit * Reason Onset Date Comments Returning Call 07/29/2021 Encounter Details Date Type Department Care Team Description 07/29/2021 Telephone Dermatology [facility], [place] [address] [place] [address] Alla Crump MD [address] [place] [address] Returning Call Allergies No Known Active Allergiesdocumented as of this encounter (statuses as of 07/29/2021) Medications Medication Sig Dispensed Refills Start Date End Date Status VITAMIN E 400 UNIT PO CAPS DAILY 0 Active MULTI-VITAMIN PO TABS one daily 0 Act lilly documented as of this encounter (statuses as of 07/29/2021) Active Problems Problem Noted Date Encounter for examination fo r normal comparison and control in clinical research program 11/21/2017 Overview: DO NOT DELETE - [facility] DETECT Study: Project # [id number], Customer Contact Representative: Mykel Gill, MS, MPH. SUMMARY: Goal: [...] contact study staff at ; after hours Customer Contact Representative via the [facility] hospital reducing system operator . - Please contact study team before resolving/deleting from patients problem list. Study phone number: [phone]. Diagnosis changed due to Research Module. Go [...] as of this encounter (statuses as of 07/29/2021) Resolved Problems Problem Noted Date Resolved Date Encounter for examination fo r normal comparison and control in clinical research program 11/21/2017 06/01/2020 Overview: DO NOT DELETE [facility] DETECT Study: Project # [id number], Customer Contact Representative: Khadar Dodd, PhD. SUMMARY: Goal: Establish [...] contact study staff at ; after hours Customer Contact Representative via the [facility] hospital reducing system operator . Please contact study team before resolving/deleting from patients problem list. Study phone number: [phone]. Diagnosis changed due to Research Module. Go to Snapshot for study details. documented as of this encounter (statuses as of 07/29/2021) Immunizations Name Administration Dates Next Due TD [...] encounter Miscellaneous Notes * Telephone Encounter - Alla Crump MD - 07/29/2021 5:27 PM EDT Called back and discussed biopsy results with the patient. Placing Mohs order/referral for tx of basal cell carcinoma. Alla Crump MD 07/29/2021 5:27 PM * Telephone Encounter - Reba De León OSA - 07/29/2021 3:47 PM EDT Please return call to patient regarding her pathology results @ [phone]. Thank you, Katherine documented in this encounter Plan of Treatment Upcoming Encounters Date Type Specialty Care Team Description 08/08/2022 Office Visit Dermatology Alla Crump MD [address] [place] [address] [phone] Scheduled Referrals Name Type Priority Associated Diagnoses Orde r Schedule MOHS SURGERY REFERRAL OP Referral Within 30 days (routine) Basal cell carcinoma (BCC) of skin of face, unspecified part of face Ordered: 07/29/2021 Health Maintenance Due Date Last Done Comments [...] Diagnoses Diagnosis Basal cell carcinoma (BCC) of skin of face, unspecified part of face- Primary documented in this encounter Advance Directives Documents on File Type Date Recorded Patient Federal Agent Expl anation Advanced Directive service a donovan default Advanced Directive service a donovan default Advanced Directive Advanced Directive Advanced Directive Advanced Directive
--- OUTSIDE RECORDS SUMMARY | 2023-07-05 15:02 | External Medical Summary ---
Author Name Unknown Address Unknown Organization K01:[facility]ORAT[facility] [place] - [address] [place] [address] Laboratory Report Ordering Provider Test Date Status KADEEM GUERRERO 08/19/2021 12:19:11 Final Observation Date Value Abnormality Reference (Units ) Status Triglyceride 08/19/2021 12:19:11 119 <=174 ( mg/dL) Final Performing Location LABORATORY [facility] - [address] [place] [address]
--- OUTSIDE RECORDS SUMMARY | 2023-07-05 15:02 | External Medical Summary ---
Author Name Unknown Address Unknown Organization K1H:LABORATORY [facility] - [address] [place] [address] Laboratory Report Ordering Provider Test Date Status KADEEM GUERRERO 08/19/2021 12:19:11 Final Observation Date Value Abnormality Reference (Units ) Status BUN 08/19/2021 12:19:11 10 6-20 (mg/dL) Final Creatinine 08/19/2021 12:19:11 0.9 0.5-1.0 (mg/dL) Final Glomerular filtration rate/1.73 sq M.predicted [Volume Rate/Area] in Serum, Plasma or Blood by Creatinine-based formula (CKD-EPI) 08/19/2021 12:19:11 66.8 >=60.0 (mL/min) Final Performing Location LAB[facility]ATORY [facility] - [address] [place] [address]
--- OUTSIDE RECORDS SUMMARY | 2023-07-05 15:02 | External Medical Summary | Summary of Care ---
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) Allergies No Known Allergiesdocumented as of this encounter (statuses as of 06/30/2019) Medications Medication Sig Dispensed Refills Start Date End Date Status VITAMIN E 400 UNIT PO CAPS DAILY 0 Active MULTI-VITAMIN PO TABS one daily 0 Act lilly documented as of this encounter (statuses as of 06/30/2019) Active Problems Problem Noted Date DETECT Research Study*[id number] Cataract 08/08/2016 Family hx-breast malignancy 08/08/2016 Overview: [...] as of this encounter (statuses as of 06/30/2019) Immunizations Name Administration Dates Next Due TD [...] Travel End documented as of this encounter Progress Notes * Jamie Wynn DO - 06/30/2019 10:47 AM EDT Patient was not seen, this appointment was listed is canceled, rp documented in this encounter Plan of [...] as of this encounter Visit Diagnoses Diagnosis Screening-pulmonary TB- Primary Screening examination for pulmonary tuberculosis documented in this encounter Advance Directives Documents on File Type Date Recorded 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
--- OUTSIDE RECORDS SUMMARY | 2023-07-05 15:03 | External Medical Summary ---
Author Name Unknown Address [address] [place] [address] Organization [facility] [address] [place] [address] Laboratory Report Ordering Provider Test Date Status KADEEM GUERRERO 01/25/2017 09:57:00 Final Observation Date Value Abnormality Reference Status TSH 01/25/2017 15:57 1.48 0.27-4.2 Fin al T4, Free 01/25/2017 15:57 NOT APPLICABLE 0.9-1.7 Final Performing Location [facility] [address] [place] [address]
--- OUTSIDE RECORDS SUMMARY | 2023-07-05 15:03 | External Medical Summary | Summary of Care ---
Author Name Unknown Organization [place] [address] Phone Care Team Providers Care Geography Instructor Name Role Phone TiannaJamie Yarely NAIK Primary Care Provider [phone] Reason for Visit * Reason Comments TEST RESULTS IMAGING STUDY Encounter Details Date Type Department Care Team Description 07/27/2018 Telephone [facility] Ferd Costa [address] [place] [address] Zofia Woodward CRNP [address] [place] [place] [address] TEST RESULTS IMAGING STUDY Allergies No Known Allergiesas of this encounter Medications Prescription Sig. Disp. Refills Start Date End Date Status VITAMIN E 400 UNIT PO CAPS DAILY Active MULTI-VITAMIN PO TABS one daily Act lilly as of this encounter Active Problems Problem Noted Date DETECT Research Study*[id number] Cataract 08/08/2016 Family hx-breast malignancy 08/08/2016 [...] 02/17/2006 DIFFUS CYSTIC MASTOPATHY Tobacco use disorder as of this encounter Immunizations Name Dates Previously Given Next Due TD - Tetanus/Diptheria (ADULT) 08/18/2006,1988 as of this encounter Social History Tobacco Use Types Packs/Day Years Used Date Current Every Day Smoker Cigarettes 0.5 30 Smokeless Tobacco: Never Used Alcohol Use Drinks/Week oz/Week Comments Yes socially mixed drink whiskey club soda, Sex Assigned at Date Recorded Not on file as of this encounter Miscellaneous Notes * Telephone Encounter - Zofia Woodward CRNP - 07/27/2018 5:53 PM EDT Called and spoke to Katherine Reviewed the results of the right leg x ray and right rib x rays with her the rib x rays stated IMPRESSION Unremarkable rib series. If the patient's clinical symptoms persists, further evaluation with chest CT would be of benefit. After reading what the radiologist wrote patient is willing to wait one month, Patient is going to contact clinic and make an appt with me to get CT scan scheduled Katherine agreeable with this plan DAVID Baker in this encounter Plan of Treatment Health Maintenance Due Date Last Done Comments Zoster Vaccines HMT (1 of 2) 1995 DTaP,Tdap,and Td Vaccines (1 - Tdap) 08/19/2006 08/18/2006, 08/18/2006, 11/14/1988 PNEUMOCOCCAL ADULT 65 YRS AN D OVER (1 of 2 - PCV13) 2010 *DEPRESSION SCREENING, MARILU Sanchez FOR PTS 18 AND OVER 08/11/2017 *COLORECTAL CANCER SCREENING (COLONOSCOPY 10 YEARS; SIGMOIDOSCOPY 5 YEARS; COLOGUARD 3 YEARS; FOBT 1 YEAR),AGES 50-75 12/03/2017 06/08/2001 BREAST CANCER SCREENING DISC USSION YEARLY AGES 40-75 02/07/2018 02/07/2017, 12/03/2015, 06/27/2006, Additional history exists Influenza Vaccine (FLU shot) (#1) 2018 DIABETES SCREEN EVERY 3 YRS- AGE 45 AND ABOVE 01/26/2020 01/25/2017, 02/25/2014, 08/27/2008, Additional history exists LIPID SCREEN EVERY 5 YRS-WOM EN AGE 45-75 01/25/2022 01/25/2017, 02/25/2014, 03/10/2006, Additional history exists DXA-SCREENING EVERY 7 YRS-US E SMARTSET# 3348 TO ORDER 02/08/2024 02/07/2017, 07/06/1999 as of this encounter Implants Not on fileas of this encounter
--- OUTSIDE RECORDS SUMMARY | 2023-07-05 15:03 | External Medical Summary ---
Author Name Unknown Address [address] [place] [address] Organization [facility] [address] [place] [address] Laboratory Report Ordering Provider Test Date Status KADEEM GUERRERO 01/25/2017 09:57:00 Final Observation Date Value Abnormality Reference Status WBC, Total 01/25/2017 15:38 6.53 4.00-10.80 F inal RBC 01/25/2017 15:38 5.15 3.85-5.15 Fin al Hemoglobin 01/25/2017 15:38 15.1 12.0-15.3 Fi nal HCT 01/25/2017 15:38 45.8 Above high normal 36.0- 45.2 Final MCV 01/25/2017 15:38 88.9 81.5-97.5 Fin al MCH 01/25/2017 15:38 29.3 27.0-34.0 Fin al MCHC 01/25/2017 15:38 33.0 32.0-36.0 Fin al RDW 01/25/2017 15:38 14.9 11.5-15.5 Fin al Platelets 01/25/2017 15:38 302 140-400 Fin al MPV 01/25/2017 15:38 11.2 Above high normal 6.6-1 1.1 Final Segs 01/25/2017 15:38 48.1 40-75 Fin al Lymphs % 01/25/2017 15:38 37.2 18-42 Fin al Monos 01/25/2017 15:38 11.5 Above high normal 1-11 Final Eosinophils 01/25/2017 15:38 2.5 0-6 F inal Basos 01/25/2017 15:38 0.5 0-2 Fin al Immature Granulocyte, Percent 01/25/2017 15:38 0.2 0-2 Final Absolute Segs 01/25/2017 15:38 3.15 1.8-7.7 Final Lymphs, absolute 01/25/2017 15:38 2.43 1.0-4. 8 Final Monos, Abs 01/25/2017 15:38 0.75 0.0-1.1 Fi nal Eos, Abs 01/25/2017 15:38 0.16 0.0-0.7 Fin bettina Madrigal, Abs 01/25/2017 15:38 0.03 0.0-0.2 Fi nal Immature Granulocytes, Number 01/25/2017 15:38 0.01 0.0-0.2 Final Performing Location [address] [address]
--- OUTSIDE RECORDS SUMMARY | 2023-07-05 15:03 | External Medical Summary ---
Author Name Unknown Organization [id number] Laboratory Report Ordering Provider Test Date Status ARELIS FLORENTINO PAC 02/25/2014 08:20:00-0400 Final Obs # Observation Date Value ABNL Reference Status Pe rforming Location 1 BUN 02/25/2014 14:46-0400 14 6-20 mg/dL Final 2 Creatinine 02/25/2014 14:46-0400 0.9 0.5-1.2 mg/dL Final GFR should be used to assess renal function. Plasma/Serum creatinine may not be able to properly reflect renal function in some cases. If patient is , multiply estimated GFR by 1.159.
--- OUTSIDE RECORDS SUMMARY | 2023-07-05 15:03 | External Medical Summary | Summary of Care ---
Author Name Unknown Organization [place] [address] Phone Care Team Providers Care Web Production Manager Name Role Phone Jamie Wynn DO Primary Care Provider [phone] Reason for Visit * Reason Comments Acute Encounter Details Date Type Department Care Team Description 07/27/2018 Office Visit [facility] [address] [place] [address] Zofia Woodward CRNP [address] [address] Mass of lower leg, right*;Palate mass;Risk and functional assessment;Special screening for malignant neoplasms, colon Allergies No Known Allergiesas of this encounter Medications Prescription Sig. Disp. Refills Start Date End Date Status VITAMIN E 400 UNIT PO CAPS DAILY Active MULTI-VITAMIN PO TABS one daily Act lilly as of this encounter Active Problems Problem Noted Date DETECT Research Study*[id number] Cataract 08/08/2016 Family hx-breast malignancy 08/08/2016 [...] Not on file as of this encounter Last Filed Vital Signs Vital Sign Reading Time Taken Blood Pressure 128/82 07/27/2018 2:06 PM EDT Pulse 63 07/27/2018 2:06 PM EDT Temperature 36.1 C (96.9 F) 07/27/2018 2 :06 PM EDT Respiratory Rate - - Oxygen Saturation 99% 07/27/2018 2:0 6 PM EDT Inhaled Oxygen Concentration - - Weight 56.8 kg (125 lb 3.2 oz) 07/27/20 18 2:06 PM EDT Height 160 cm (5' 3") 07/27/2018 2:06 PM EDT Body Mass Index 22.18 07/27/2018 2:06 PM EDT in this encounter Instructions * Patient Instructions - Jaida Burris LPN - 07/27/2018 2:05 PM EDT Check on the pneumonia and shingles vaccine and see if insurance will will pay Patient Instructions - Fall Prevention (This education is for all patients over 65 regardless of symptoms) Remember to take your current medications as prescribed. In order to prevent falls, you are encouraged to: Exercise Utilize assistive/adaptive devices Avoid multifocal lenses when walking Avoid hazards in home Maintain a regular toileting schedule Any questions please contact our office. Preventing Falls in the Home (This education is for all patients over 65 regardless of symptoms) As you get older, falls are more likely. Thats because your reaction time slows. Your muscles and joints may also get stiffer, making them less flexible. Illness, medications, and vision changes can also affect your balance. A fall could leave you unable to live on your own. To make your home safer, follow these tips: Floors Put nonskid pads under area rugs Remove throw rugs Replace worn floor coverings Tack carpets firmly to each step on carpeted stairs. Put nonskid strips on the edges of uncarpeted stairs Keep floors and stairs free of clutter and cords Arrange furniture so there are clear pathways Clean up any spills right away Bathrooms Install grab bars in the tub or shower Apply nonskid strips or put a nonskid rubber mat in the tub or shower Sit on a bath chair to bathe Use bathmats with nonskid backing Lighting Keep a flashlight in each room Put a nightlight along the pathway between the bedroom and the bathroom Gabe Patient Education Copyright 2008 - 2010 Gabe except where otherwise noted Preventing Falls: Exercises to Improve Balance, Flexibility, Strength, and Staying Power (This education is for all patients over 65 regardless of symptoms) Certain types of exercises may help make you less likely to fall. Try the ones below. Or do other exercises that your healthcare provider suggests. Depending on your health, you may need to start slowly. Dont let that stop you. Even small amounts of exercise can help you. Be sure to talk to yourhealthcare provider before starting any exercise program. Improve Balance Many types of exercise can help improve balance. Baljinder chi and yoga are good examples. Heres another one to try. You can do it anytime and almost anywhere. Stand next to a counter or solid support. Push yourself up onto your tiptoes. Hold for 5 seconds. If you start to lose your balance, hold on to the counter. Rest and repeat 5 times. Work up to holding for 20 to 30 seconds, if you can. Increase Flexibility Being more flexible makes it easier for you to move around safely. Try exercises like the seated hamstring stretch. Sit in a chair and put one foot on a stool. Straighten your leg and reach with both hands down either side of your leg. Reach as far down your leg as you can. Hold for about 20 seconds. Go back to the starting position. Then repeat 5 times. Switch legs. Build Strength Resistance exercises help build strength. You can do them without equipment. Or you can use weights, elastic bands, or special machines. One such exercise is called the biceps curl. You can hold a 1 pound weight or even a can of soup. Do this exercise at least 3 times a week. Strive for everyday. Sit up straight in a chair. Keep your elbow close to your body and your wrist straight. Bend your arm, moving your hand up to your shoulder. Then slowly lower your arm. Repeat 5 times. Switch to the other arm. Build Your Staying Power Aerobic exercises make your heart and lungs stronger so you can keep moving longer. Walking and swimming are two of the best types of exercises you can do. Using a stationary bike is great, too. Find an aerobic exercise that you enjoy. Start slowly and build up. Even 5 minutes is helpful. Aimfor a goal of 30 minutes, at least 3 times a week. You dont have to do 30 minutes in one session. Break it up and walk a little throughout the day. More Helpful Tips Start easy. Slowly work up to doing more. Talk with your healthcare provider about the best exercises for you. Call senior centers or health clubs about exercise programs. If needed, have a family member watch you walk every so often to check your stability. Exercise with a friend. Choose an activity you both enjoy. Try exercises that you can do anytime, anywhere. Here are two examples. Have someone with you when you first try these: Practice walking by placing one foot right in front of the other. Stand up and sit down 10 times. Repeat this throughout the day. Gabe Patient Education Copyright 2008 - 2010 Gabe except where otherwise noted. Preventing Falls: Moving Safely Using a Cane or Walker (This education is for all patients over 65 regardless of symptoms) Keep the cane away from your feet so you dont trip. A walking aid, such as a cane or walker, can help you stay more independent and avoid falls. Remember to keep your walking aid within easy reach when youre in a chair or in bed. And learn how to use it safely so you dont injure yourself. Using a Cane If you have a stronger side, hold the cane on that side. 17. Get your balance. 18. Move the cane and your weaker leg forward. 19. Support your weight on both the cane and your weaker side. 20. Step with your stronger leg. 21. Start again from step 1. If youre using a folding walker, be sure you know how to lock it open. Check that its locked open before each use. Using a Walker 7. Roll the walker (or lift it, if youre using one without wheels) forward about 12 inches. 8. Step forward with your weaker leg first. 9. Use the walker to help keep your balance. 10. Bring your other foot forward to the center of the walker. 11. Start again from step 1. Helpful Tips Check with your healthcare provider about the right walking aid to use. Ask about a walker with a seat attached. Check the tips of your cane or walker to make sure they have nonskid covers. Move slowly from room to room. Dont tracy. Sit down to get dressed. Use a charo pack or backpack to keep your hands free. Get help for jobs that mean climbing, even on a stepstool. Gabe Patient Education Copyright 2008 - 2010 Gabe except where otherwise noted. Urinary Incontinence Plan of Care Documentation: (This education is for all patients over 65 regardless of symptoms) Current medications reconciled. Patient encouraged to: Practice kegal exercises Provide education materials Use the restroom every 2 hours throughout the day Limit caffeine, alcohol, spicy foods and acidic foods Keep a bladder diary Limit fluid intake 3-4 hours before bed Lose weight Prevent constipation Take fluid pills at a time when you can get to the bathroom quickly Control sugar better if diabetic Limit fluid intake to 60 oz. per day Wear support stockings (TEDs)if you have edema Jaida Burris LPN 07/27/2018 Kegel Exercises Kegel exercises dont require special clothing or equipment. Theyre easy to learn and simple to do. And if you do them right, no one can tell youre doing them, so they can be done almost anywhere. Your doctor, nurse, or physical therapist can answer any questions you have and help you get started. A Weak Pelvic Floor The pelvic floor muscles may weaken due to aging, and vaginal childbirth, injury, surgery, chronic cough, or lack of exercise. If the pelvic floor is weak, your bladder and other pelvic organs may sag out of place. The urethra may also open too easily and allow urine to leak out. Kegel exercises can help you strengthen your pelvic floor muscles so they can better support the pelvic organs and control urine flow. How Kegel Exercises Are Done Try each of the Kegel exercises described below. When youre doing them, try not to move your leg, buttock, or stomach muscles. While youre urinating, try to stop the flow of urine. Start and stop it as often as you can. Contract as if you were stopping your urine stream, but do it when youre not urinating. Tighten your rectum as if trying not to pass gas. Contract your anus, but dont move your buttocks. Helpful Hints Do your Kegels as often as you can. The more you do them, the faster youll feel the results. Pick an activity you do often as a reminder. For instance, do your Kegels every time you sit down. Tighten your pelvic floor before you sneeze, get up from a chair, cough, laugh, or lift. This protects your pelvic floor from injury and can help prevent urine leakage. Try to hold each Kegel for a slow count to five. You probably wont be able to hold them for thatlong at first, but keep practicing. It will get easier as your pelvic floor gets stronger. Eventually, special weights that you place in your vagina may be recommended to help make your Kegels even more effective. Gabe Patient Education Copyright 2008 - 2010 Gabe except where otherwise noted. Here are some helpful tips for your urinary incontinence: (This education is for all patients over 65 regardless of symptoms) Practice Kegel exercises Use the restroom every 2 hours throughout the day Limit caffeine, alcohol, spicy foods, and acidic foods Keep a bladder diary Limit fluid intake 3-4 hours before bed Lose weight Prevent constipation Take fluid pills at a time when can get to the bathroom quickly Control sugar better if diabetic Limit fluid intake to 60 oz. per day Any questions, please feel free to contact our office. in this encounter Progress Notes * Zofia Woodward CRNP - 07/27/2018 2:20 PM EDT Formatting of this note may be different from the original. Subjective: Reba Delaney is a 73 year old female. Chief Complaint Patient presents with Acute HPI: ACUTE visit Nursing Notes: Jaida Burris LPN 07/27/18 1413 Signed Patient is here for acute visit Patient has a lump on her chest and right sheets Present for approx. 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 Weight as of this encounter: 56.8 kg (125 lb 3.2 oz). BP Readings from Last 3 Encounters: 07/27/18 128/82 05/03/17 108/70 01/25/17 122/78 Wt Readings from Last 3 Encounters: 07/27/18 56.8 kg (125 lb 3.2 oz) 05/03/17 57.9 kg (127 lb 9.6 oz) 01/25/17 59.5 kg (131 lb 3.2 oz) ROS: See HPI General: No change in weight, No weakness, No fatigue and No fevers, sweats, or chills Respiratory: No cough, sputum, or hemoptysis, No wheezing, No shortness of breath and No recent change in breathing Cardiac: No chest pain, No shortness of breath, No dyspnea on exertion, No orthopnea, No paroxysmalnocturnal dyspnea, No edema, No palpitations and No syncope PHYSICAL EXAM: General: alert, healthy, no distress, comfortable and cooperative Head: Normocephalic, No masses, lesions, tenderness or abnormalities Heart: regular rate & rhythm, no murmurs and no gallops Lungs: chest symmetric with normal AP diameter, no chest deformities noted, no chest wall tenderness, lungs clear to auscultation Pulses: radial=2/4, posterior tibial=2/4, dorsalis pedis=2/4 Extremities: no joint deformities, effusion, or inflammation, no edema, no clubbing, no cyanosis, 1cm firm mass locate RLE 5 cm above ankle, non mobile contender to touch The second mass located on 2nd right rib 2 cm from sternum measuring 3 cm x 5 cm non mobile ASSESSMENT/Plan R22.41 Mass of lower leg, right (primary encounter diagnosis) Plan: Xr tib/fib 2 views R22.0 Palate mass Plan: Xr ribs unilateral 2 views Z13.9 Risk and functional assessment Plan: Pat scrn for fall risk Pres or abs of urin incont as Z12.11 Special screening for malignant neoplasms, colon Plan: Cologuard Follow up: Return in 1 year (on 07/27/2019), or if symptoms worsen or fail to improve. The above was discussed and understanding was expressed. Zofia Woodward, DAVID Britton, I will inform you via MyG of any tests results if account active in this encounter Nursing Notes * [place] Jaida M, BIOLOGICAL PHOTOGRAPHER - 07/27/2018 2:04 PM EDT Patient is here for acute visit Patient has a lump on her chest and right sheets Present for approx. One week in this encounter Plan of Treatment Scheduled Tests Name Priority Associated Diagnoses Order S chedule COLOGUARD Unrestricted Lab Special screening for malignant neoplasms, colon Ordered: 07/27/2018 Health Maintenance Due Date Last Done Comments Zoster Vaccines HMT (1 of 2) 1995 DTaP,Tdap,and Td Vaccines (1 - Tdap) 08/19/2006 08/18/2006, 08/18/2006, 11/14/1988 PNEUMOCOCCAL ADULT 65 YRS AN D OVER (1 of 2 - PCV13) 2010 BREAST CANCER SCREENING DISC USSION YEARLY AGES 40-75 02/07/2018 02/07/2017, 12/03/2015, 06/27/2006, Additional history exists Influenza Vaccine (FLU shot) (#1) 2018 DIABETES SCREEN EVERY 3 YRS- AGE 45 AND ABOVE 01/26/2020 01/25/2017, 02/25/2014, 08/27/2008, Additional history exists LIPID SCREEN EVERY 5 YRS-WOM EN AGE 45-75 01/25/2022 01/25/2017, 02/25/2014, 03/10/2006, Additional history exists DXA-SCREENING EVERY 7 YRS-US E SMARTSET# [id number] TO ORDER 02/08/2024 02/07/2017, 07/06/1999 as of this encounter Implants Not on fileas of this encounter Results * XR RIBS UNILATERAL 2 VIEWS (07/27/2018 3:58 PM) Specimen Performing Laborator y [facility] Impressions IMPRESSION Unremarkable rib series.If the patient's clinical symptoms persists, further evaluation with chest CT would be of benefit. Narrative EXAM XR RIBS UNILATERAL 2 VIEWS-07/27/2018 3:58 pm HISTORY palpable 3 cm x 5 cm mass located on 2 nd rib right s 2 cm from sternum COMPARISON None TECHNIQUE Two views of the right ribs are submitted. FINDINGS No acute displaced rib fractures are identified. No obvious mass is appreciated in the right ribcage to correspond to the area of clinical concern which was marked with a BB.No suspicious infiltrates are seen in the adjacent lungs. Procedure Note Interface, Rad In - 07/27/2018 4:13 PM EDT EXAM XR RIBS UNILATERAL 2 VIEWS-07/27/2018 3:58 pm HISTORY palpable 3 cm x 5 cm mass located on 2 nd rib right s 2 cm from sternum COMPARISON None TECHNIQUE Two views of the right ribs are submitted. FINDINGS No acute displaced rib fractures are identified. No obvious mass isappreciated in the right ribcage to correspond to the area of clinicalconcern which was marked with a BB. No suspicious infiltrates are seen inthe adjacent lungs. IMPRESSION IMPRESSION Unremarkable rib series. If the patient's clinical symptoms persists,further evaluation with chest CT would be of benefit. * XR TIB/FIB 2 VIEWS (07/27/2018 3:58 PM) Specimen Performing Laborator y [facility] Impressions IMPRESSION Unremarkable plain film examination of the right tibia and fibula. Narrative EXAM XR TIB/FIB 2 VIEWS-07/27/2018 3:58 pm HISTORY palpable 1 cmmass right lower leg, 5 cm above ankle COMPARISON None TECHNIQUE AP and lateral views of the right tibia and fibula are submitted. FINDINGS No acute fracture or dislocations are identified. The joint spaces are well maintained.No periosteal reaction is seen.The soft tissues are unremarkable. Procedure Note Interface, Rad In - 07/27/2018 4:15 PM EDT EXAM XR TIB/FIB 2 VIEWS-07/27/2018 3:58 pm HISTORY palpable 1 cm mass right lower leg, 5 cm above ankle COMPARISON None TECHNIQUE AP and lateral views of the right tibia and fibula are submitted. FINDINGS No acute fracture or dislocations are identified. The joint spaces arewell maintained. No periosteal reaction is seen. The soft tissues areunremarkable. IMPRESSION IMPRESSION Unremarkable plain film examination of the right tibia and fibula. in this encounter Visit Diagnoses Diagnosis Mass of lower leg, right - P rimary Palate mass Swelling, mass, or lump in head and neck Risk and functional assessme nt Screening for unspecified condition Special screening for malign ant neoplasms, colon in this encounter
--- OUTSIDE RECORDS SUMMARY | 2023-07-05 15:03 | External Medical Summary ---
Author Name Unknown Address Unknown Organization : Laboratory Report Ordering Provider Test Date Status KADEEM GUERRERO 01/25/2017 09:57:00 Final Observation Date Value Abnormality Reference Status Fasting status - Reported 01/25/2017 10:03 12 Final Triglyceride 01/25/2017 21:05 120 <200 Final Performing Location
--- OUTSIDE RECORDS SUMMARY | 2023-07-05 15:03 | External Medical Summary ---
Author Name Unknown Address [facility] [place] [address] Phone Organization K01:[place] [address] [place] [id number] Laboratory Report Ordering Provider Test Date Status KADEEM GUERRERO 07/27/2018 14:12:00 Final Observation Date Value Abnormality Reference Status Noninvasive colorectal cancer DNA and occult blood screening [Presence] in Stool 08/21/2018 12:51 SEE SEPARATE REPORT Final Performing Location [facility] [address] [facility] [address]
--- OUTSIDE RECORDS SUMMARY | 2023-07-05 15:03 | External Medical Summary | Summary of Care ---
Author Name Unknown Organization [place] [address] Phone Care Team Providers Care Place Change Roof Bolter Name Role Phone Jamie Wynn Primary Care Provider [phone] Encounter Details Date Type Department Care Team Description 05/29/2018 Orders Only Outcomes Research Department [address] [place], [place] [id number] Nancy Burris CHRA MyCode Research Other*[id number] Allergies No Known Allergiesas of this encounter Medications Prescription Sig. Disp. Refills Start Date End Date Status VITAMIN E 400 UNIT PO CAPS DAILY Active MULTI-VITAMIN PO TABS one daily Act lilly as of this encounter Active Problems Problem Noted Date DETECT Research Study*[id number] Cataract 08/08/2016 Family hx-breast malignancy 08/08/2016 [...] Not on file as of this encounter Plan of Treatment Scheduled Tests Name Priority Associated Diagnoses Order S lisandra MYCODE INITIAL ADULT Routine MyCode Research Other*[id number] Expected: 05/29/2018, Expires: 06/18/2019 Health Maintenance Due Date Last Done Comments DTaP,Tdap,and Td Vaccines (1 - Tdap) 08/19/2006 08/18/2006, 11/14/1988 PNEUMOCOCCAL ADULT 65 YRS AN D OVER (1 of 2 - PCV13) 2010 *DEPRESSION SCREENING, ANNUA L FOR PTS 18 AND OVER 08/11/2017 *COLORECTAL [...] Implants Not on fileas of this encounter Visit Diagnoses Diagnosis MYCODE RESEARCH OTHER*[id number] in this encounter
--- OUTSIDE RECORDS SUMMARY | 2023-07-05 15:03 | External Medical Summary | Summary of Care ---
Author Name Unknown Organization [place] [address] Phone Care Team Providers Care Patent Legal Assistant Name Role Phone PaxtonJamie gonzalez Yarely NAIK Primary Care Provider [phone] Encounter Details Date Type Department Care Team Description 08/21/2018 Orders Only Family [facility], Fred [address] [place] [address] Zofia Woodward CRNP [address] [facility] [place] [address] Allergies No Known Allergiesas of this encounter Medications Prescription Sig. Disp. Refills Start Date End Date Status VITAMIN E 400 UNIT PO CAPS DAILY Active MULTI-VITAMIN PO TABS one daily Act lilly as of this encounter Active Problems Problem Noted Date DETECT Research Study*[id number] Cataract 08/08/2016 Family hx-breast malignancy 08/08/2016 [...] as of this encounter Plan of Treatment Pending Results Name Priority Associated Diagnoses Date/Ti me COLOGUARD Routine 08/10/2018 12:0 0 AM EDT Health Maintenance Due Date Last [...]
--- OUTSIDE RECORDS SUMMARY | 2023-07-05 15:03 | External Medical Summary | Summary of Care ---
Author Name Unknown Organization [place] [address] Phone Care Team Providers Care Invoicing Machine Operator Name Role Phone PaxtonJamie gonzalez Yarely NAIK Primary Care Provider [phone] Encounter Details Date Type Department Care Team Description 08/21/2018 Orders Only Family [facility], [place] [address] [place] [address] Zofia Woodward CRNP [address] [facility] [place] [address] Allergies No Known Allergiesas of this encounter Medications Prescription Sig. Disp. Refills Start Date End Date Status VITAMIN E 400 UNIT PO CAPS DAILY Active MULTI-VITAMIN PO TABS one daily Act lilly as of this encounter Active Problems Problem Noted Date DETECT Research Study*[id number] Cataract 08/08/2016 Family hx-breast malignancy 08/08/2016 [...] as of this encounter Plan of Treatment Health Maintenance [...] on fileas of this encounter Results * COLOGUARD (08/10/2018) Component Value Ref Range COLOGUARD NEGATIVE NEGATIVE Specimen Performing Laborator y OUTSIDE LAB (SEE SCANNED REPORT) in this encounter
--- OUTSIDE RECORDS SUMMARY | 2023-07-05 15:03 | External Medical Summary ---
Author Name Unknown Address [address] [place] [address] Organization [facility] [address] [place] [address] Laboratory Report Ordering Provider Test Date Status KADEEM GUERRERO 01/25/2017 09:57:00 Final Observation Date Value Abnormality Reference Status BUN 01/25/2017 15:57 15 6-20 Fin al Creatinine 01/25/2017 15:57 0.9 0.5-1.0 Fi nal Performing Location [facility] [address] [place] [address]
--- OUTSIDE RECORDS SUMMARY | 2023-07-05 15:03 | External Medical Summary | Summary of Care ---
Author Name [place] [address] Phone Care Team Providers Care Final Inspector And Tester Name Role Phone PaxtonJamie gonzalez Yarely NAIK Primary Care Provider [phone] Reason for Visit * Reason Comments Research Study Patient DETECT Return Vis it Encounter Details Date Type Department Care Team Description 05/22/2018 Office Visit Research, [facility] [address] [place] [address] Team, Detect [facility] Study [address] [place] [address] DETECT Research Study*[id number]* Allergies No Known Allergiesas of this encounter Medications Prescription Sig. Disp. Refills Start Date End Date Status VITAMIN E 400 UNIT PO CAPS DAILY Active MULTI-VITAMIN PO TABS one daily Act lilly as of this encounter Active Problems Problem Noted Date DETECT Research Study*[id number] Cataract 08/08/2016 Family hx-breast malignancy 08/08/2016 [...] Not on file as of this encounter Progress Notes * Yesika Amezcua, CHRA - 05/22/2018 9:55 AM EDT Reba Dealney is being seen today for Visit 2 attempt 2 of the DETECT study (Detecting Cancers Earlier Through Elective Mutation-Based Blood Collection and Testing). The subject had her blood drawn for the study and was informed that she can expect her result in 4-6 weeks. Instructions The subject was provided with the following instructions: A future visit may be scheduled based on the result. in this encounter Plan of Treatment Upcoming Encounters Date Type Specialty Care Team Description 05/22/2018 Office Visit Research Team, Detect [facility] Study [address] [place], [place] [id number] DETECT Research Study*[id number]* Health Maintenance Due Date Last Done Comments DTaP,Tdap,and Td Vaccines (1 - Tdap) 08/19/2006 08/18/2006, 11/14/1988 PNEUMOCOCCAL ADULT 65 YRS AN D OVER (1 of 2 - PCV13) 2010 *DEPRESSION SCREENING, CESARUA Laura FOR PTS 18 AND OVER 08/11/2017 *COLORECTAL [...] exists DXA-SCREENING EVERY 7 YRS-US E SMARTSET# [id number] TO ORDER 02/08/2024 02/07/2017, 07/06/1999 as of this encounter Implants Not on fileas of this encounter Visit Diagnoses Diagnosis DETECT Research Study*[id number] - Primary in this encounter
--- OUTSIDE RECORDS SUMMARY | 2023-07-05 15:03 | External Medical Summary | Summary of Care ---
Author [place] [address] Phone Care Team Providers Care Brine Process Operator Name Role Phone PaxtonJamie gonzalez Yarely NAIK Primary Care Provider [phone] Reason for Visit * Reason Comments Research Study Patient DETECT Return Vis it Encounter Details Date Type Department Care Team Description 05/15/2018 Office Visit Research, [facility] [address] [place] [address] Team, Detect [facility] Study [address] [place] [address] DETECT Research Study*[id number]* Allergies No Known Allergiesas of this encounter Medications Prescription Sig. Disp. Refills Start Date End Date Status VITAMIN E 400 UNIT PO CAPS DAILY Active MULTI-VITAMIN PO TABS one daily Act lilly as of this encounter Active Problems Problem Noted Date DETECT Research Study*[id number] Cataract 08/08/2016 Family hx-breast malignancy 08/08/2016 [...] as of this encounter Progress Notes * Flanagan [facility] Lavinia, [facility] - 05/15/2018 10:31 AM EDT Reba Delaney is being seen today for Visit 2 of the DETECT study (Detecting Cancers Earlier Through Elective Mutation-Based Blood Collection and Testing). The subject had her blood drawn for the study and was informed that she can expect her result in 4-6 weeks. Instructions The subject was provided with the following instructions: A future visit may be scheduled based on the result. in this encounter Plan of Treatment Health [...] this encounter Visit Diagnoses Diagnosis DETECT Research Study*[id number] - Primary in this encounter
--- OUTSIDE RECORDS SUMMARY | 2023-07-05 15:03 | External Medical Summary | Summary of Care ---
Author Name Unknown Organization [place] [address] Phone Care Team Providers Care Compliance Review Specialist Name Role Phone GladysJamie ash Yarely NAIK Primary Care Provider [phone] Reason for Visit * Reason Comments APPOINTMENT Colonoscopy Appointm ent Encounter Details Date Type Department Care Team Description 05/03/2017 Telephone Gastroenterology, [place] [address] [place] [address] Specified, Zz No Resource [address] [address] [phone] APPOINTMENT (Colonoscopy Appointment) Allergies No Known Allergiesas of this encounter Medications Prescription Sig. Disp. Refills Start Date End Date Status VITAMIN E 400 UNIT PO CAPS DAILY Active MULTI-VITAMIN PO TABS one daily Act lilly as of this encounter Active Problems Problem Noted Date Cataract 08/08/2016 [...] encounter Miscellaneous Notes * Telephone Encounter - Haja Юлия Jin, KRISTA - 11/10/2017 7:54 AM EST 3rd attempt letter sent * Telephone Encounter - Юлия Smyth, KRISTA - 10/27/2017 7:56 AM EST 2nd attempt letter sent * Telephone Encounter - Юлия Smyth, KRISTA - 10/17/2017 1:17 PM EST I left a message on the patients answering machine for the patient to call to schedule an appointment 10/16/17 * Telephone Encounter - Юлия Smyth, KRISAT - 10/17/2017 1:17 PM EST Formatting of this note may be different from the original. Referral COLONOSCOPY, SURGERY REFERRAL OP [[id number] (CPT)] (Order [id number]) Currently Active Insurance Payor Plan Subscriber Member ID MEDICARE MEDICARE A AND B REBA GONZALEZ [id number] [facility] AYANA GONZALEZ [id number] [facility] AYANA GONZALEZ [id number] PCP and Practice Primary Care Provider Practice Name Phone Jamie Wynn DO [[id number]] [facility] [phone] Order Information Date Department Ordering/Authorizing 05/03/2017 [facility] Fred Costa CRNP Order Providers Authorizing Provider Encounter Provider DVAID Heller CRNP Supervision Information Supervising Provider Type of Supervision Jamie Wynn DO Direct-Does not meet incident-to Referral on 05/03/2017 (Pending Review) ID: [id number] Referred by Referred to DAVID Heller General Surgery Reason: Ancillary Services Required Priority: Within 10 days (routine) Type: Ancillary Services Visits Requested: 3 Decision Date: 05/03/2017 Expiration Date: 10/31/2017 Related Appointments None Associated Diagnoses Special screening for malignant neoplasms, colon [Z12.11] Comments {ALERT: Do not order for pediatric patients (18 years or younger). Cancel off screen and order PEDS GASTROENTEROLOGY CONSULT (Type: 1 visit only-Evaluate and Treat. Colonoscopy ASGE Guidelines: Average risk screening (begin at age 50, 10 year intervals) ADDITIONAL INFORMATION 1. Is the patient on coumadin? No 2. Does the patient have an artificial heart valve or a history of SBE or need antibiotic prophylaxis? No Encounter View Encounter Order Questions Question Answer Comment Referral Priority Within 10 days (routine) Encounter View Encounter THIS REFERRAL HAS BEEN ELECTRONICALLY SIGNED * Administrative Questions: [phone] or [phone] Reprint Requisition COLONOSCOPY, SURGERY REFERRAL OP (Order #[id number]) on 05/03/17 in this encounter Plan of Treatment Health Maintenance Due Date Last Done Comments COLONOSCOPY-EVERY 10 YRS AGE S 50-75 1995 PNEUMOCOCCAL ADULT 65 YRS AN D OVER (1 of 2 - PCV13) 2010 *ADVANCE DIRECTIVE NOT ON FILE 08/10/2016 TETANUS EVERY 10 YEARS-TDAP (BOOSTRIX OR ADACEL) SUGGESTED IF NOT RECEIVED IN THE PAST. 08/18/2016 08/18/2006, 11/14/1988 Influenza Vaccine (FLU shot) (#1) 2017 *DEPRESSION SCREENING, MARILU Sanchez FOR PTS 18 AND OVER 08/11/2017 BREAST CANCER SCREENING DISC USSION YEARLY AGES 40-75 02/07/2018 02/07/2017, 12/03/2015, 06/27/2006, Additional history exists DIABETES SCREEN EVERY 3 YRS- AGE 45 AND ABOVE 01/26/2020 01/25/2017, 02/25/2014, 08/27/2008, Additional history exists LIPID SCREEN EVERY 5 YRS-WOM EN AGE 45-75 01/25/2022 01/25/2017, 02/25/2014, 03/10/2006, Additional history exists DXA-SCREENING EVERY 7 YRS-US E SMARTSET# [id number] TO ORDER 02/08/2024 02/07/2017, 07/06/1999 as of this encounter Implants Not on fileas of this encounter Insurance Payer Benefit Plan / Group Subscriber ID Type Phone Address MEDICARE MEDICARE A AND B [id number] Medicare [place], [place] BLUE SHIELD [employer] BLUE [employer]IELD [id number] [facility] [id number] as of this encounter
--- OUTSIDE RECORDS SUMMARY | 2023-07-05 15:04 | External Medical Summary ---
Author Name Unknown Organization [id number] Laboratory Report Ordering Provider Test Date Status ARELIS FLORENTINO PAC 02/25/2014 08:20:00-0400 Final Obs # Observation Date Value ABNL Reference Status Pe rforming Location 1 WBC 02/25/2014 14:13-0400 7.39 4.00-10.80 K/uL Final 2 RBC 02/25/2014 14:-0400 4.94 3.85-5.15 M/uL Final 3 HGB 02/25/2014 14:13-0400 14.3 12.0-14.5 g/dL Final 4 HCT 02/25/2014 14:130400 44.1 36.0-44.5 % Final 5 MCV 02/25/2014 14:13-0400 89.3 81.5-97.5 fL Final 6 MCH 02/25/2014 14:13-0400 28.9 27.0-34.0 pg Final 7 MCHC 02/25/2014 14:13-0400 32.4 32.0-36.0 g/dL Final 8 RDW 02/25/2014 14:13-0400 14.5 11.5-15.5 % Final 9 PLT 02/25/2014 14:13-0400 300 140-400 K/uL Final 10 MPV 02/25/2014 14:13-0400 10.9 6.6-11.1 fL Final
--- OUTSIDE RECORDS SUMMARY | 2023-07-05 15:04 | External Medical Summary ---
Author Name Unknown Organization [id number] Laboratory Report Ordering Provider Test Date Status ARELIS FLORENTINO PAC 02/25/2014 08:20:00-0400 Final Obs # Observation Date Value ABNL Reference Status Pe rforming Location 1 hours fasting 02/25/2014 08:24-0400 12 hours Final 2 Triglyceride 02/25/2014 14:46-0400 138 <200 mg/dL Final TRIGLYCERIDE REFERENCE RANGES (mg/dL) <150 NORMAL 150-199 BORDERLINE HIGH 200-499 HIGH >499 VERY HIGH TOTAL CHOLESTEROL REFERENCE RANGES(mg/dL) <200 DESIRABLE 200-239 BORDERLINE HIGH >239 HIGH HDL CHOLESTEROL REFERENCE RANGES(mg/dL) <40 LOW(UNDESIRABLE) >59 HIGH(DESIRABLE) LDL CHOLESTEROL REFERENCE RANGES(mg/dL) <100 OPTIMAL GOAL FOR HIGH RISK PATIENTS 100-129 NEAR OR ABOVE NORMAL 130-159 BORDERLINE HIGH 160-189 HIGH >189 VERY HIGH
== END 2023-06-30 12:48 | disposition home or self-care (01) | DRG 948 ==
LOC: ED 09:29 → 3W 18:08

== ENCOUNTER 2023-08-14 09:59 | Inpatient (IN) ==
[2023-08-14] MEDS ORDERED: SODIUM CHLORIDE 0.9% 2,000 ML IV ONE (10:19)
[2023-08-14] MEDS ORDERED: CEFEPIME 2,000 MG/20 ML VIAL IV STA (10:19)
--- NOTE | 2023-08-14 10:23 | Emergency Department Note ---
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 She has not been wanting to eat or drink today. She has been confused and has not oriented to place or month. Daughter notes that she has been talking intermittently about going to the doctor's office when they have no appointment. Daughter notes that the confusion is much worse over the past 24 hours. She is due for second round of chemo tomorrow. She follows with [facility] hematology oncology. ADDITIONAL HISTORY OBTAINED: Per HPI Chronic Medical/Social Conditions Affecting Care: Per HPI PAST MEDICAL HISTORY:See Below PAST SURGICAL HISTORY:See Below FAMILY HISTORY:See Below SOCIAL HISTORY:See Below HOME MEDICATIONS:See Below ALLERGIES:See Below VITALS:See Below PHYSICAL EXAMINATION: GENERAL: Sitting up in bed, alert, chronically ill-appearing, cachectic EYE EXAM: normal conjunctiva. PERRL and EOM's grossly intact. OROPHARYNX: Dry mucous membranes LUNGS: Clear to auscultation. Normal chest wall mechanics HEART: no murmurs, S1 normal and S2 normal ABDOMEN: abdomen soft, non-tender, normo-active bowel sounds, no masses, no rebound or guarding. BACK: Back is symmetrical on inspection and there is no deformity, no midline tenderness, no CVA tenderness. SKIN: no rashes and no bruising UPPER EXTREMITIES: upper extremities are grossly normal. LOWER EXTREMITIES: No pitting edema. NEURO EXAM: Oriented to person not place or month, cranial nerves II-XII grossly intact, normal speech, no gross weakness of arms, no gross weakness of legs. MEDICAL DECISION MAKING: Patient is a 78-year-old female with non-small cell cancer who presents ER for weakness and confusion brought in by daughter. IV was established blood work was obtained. External records reviewed as described below. Labs show a leukocytosis of 19,000. Anemia at 8.7 consistent with previous. BMP with a hyponatremia at 120. Magnesium level is low at 1.6. LFTs bilirubin was unremarkable. UA was clean. CT of the head was negative. Patient was updated at bedside given IV fluids and admitted for further work-up with her hyponatremia. External Records Reviewed: Admitted in May for chest pain to the [facility] Hospitalist Consults/Care Managements Discussions: Per [facility] Triage Nursing notes reviewed. Limited review of prior medical records performed Vital Signs: reviewed and remarkable for hypotension and tachycardia Differential diagnosis: Infection, dehydration, metabolic abnormality, hypo/hyperglycemia, electrolyte disturbance, anemia, hypoxia, cardiac sources, intracerebral event, toxicologic, neurologic, as well as other pathologies. ER treatment provided: See below Diagnostics interpreted by me include EKG and cardiac monitoring as listed below: -Cardiac Monitoring: An order was placed for continuous cardiac monitoring. The monitor shows a rate of 102 with sinus rhythm. -ECG: none -Laboratory studies:Interpreted by me as stated above in MDM and shown below. Imaging studies: Xrays: As interpreted by me: Portable AP upright 1 view of the chest shows left upper lobe infiltrate CTs show: CT of the head was negative per radiology Procedures:none Critical Care: None Past Med/Surg History Medical History (Updated 08/14/23 @ 14:30 by Guy Cooper DO) History of pulmonary embolism Non-small cell cancer of left lung Surgical History (Updated 08/14/23 @ 14:04 by DAVID Hannah) History of hip surgery History of parotidectomy Social History Smoking Status: Former smoker Tobacco Type: Cigarettes Hx Alcohol Use: Yes Alcohol type: wine Hx Substance Use: No Preferred Language: Nepali Communication Ability: Effective Service Agent Required: No Beliefs That Will Affect Care: None Current Living Situation: Family Current Living Situation Comment: currently lives with daughter in 2 story house Feels Safe at Home: Yes Assistive Devices: None Allergies Allergies Allergy/AdvReac Type Severity Reaction Status Date / Time No Known Allergies Allergy Verified 06/28/23 16:24 Home Meds Home Medications Medication Instructions Recorded Confirmed apixaban 5 mg tablet (Eliquis) 5 mg PO BID 06/28/23 08/14/23 famotidine 20 mg tablet 20 mg PO BID PRN Gi Upset 06/28/23 08/14/23 lidocaine 5 % topical patch 1 patch transdermal HS PRN Pain 08/14/23 08/14/23 morphine 15 mg tablet,extended 15 mg PO HS 08/14/23 08/14/23 release ondansetron HCl 8 mg tablet 8 mg PO Q8H PRN n/v 08/14/23 08/14/23 prochlorperazine maleate 10 mg 10 mg PO Q6H PRN n/v 08/14/23 08/14/23 tablet sennosides 8.6 mg tablet (Senokot) 8.6 mg PO QAM PRN const 08/14/23 08/14/23 Previous Rx's Medication Instructions Recorded oxycodone 5 mg tablet 5 mg PO Q4H PRN pain #20 tabs 06/30/23 Results & Data (ED) Vital Signs Vital Signs - 24 hr 08/14/23 10:05 08/14/23 11:14 08/14/23 10:49 Temperature 36.7 C Temperature Source Axillary Pulse Rate 110 H 93 H 92 H Pulse Rate [Apical] Pulse Rhythm Regular Pulse Rhythm [Apical] Pulse Strength [Apical] Respiratory Rate 16 18 Respiratory Effort / Characteristics Non-Labored Respiratory Depth Normal Respiratory Pattern Blood Pressure 98/63 L Blood Pressure [Right Arm] Blood Pressure Mean 74 Blood Pressure Mean [Right Arm] Blood Pressure Position [Right Arm] Pulse Oximetry 95 96 Oxygen Delivery Method Room Air Room Air Sepsis Recent Fever Within 48 Hours No Sepsis New/Unexplained Change in Mental Status N/A Sepsis Action Taken by Nursing No Action Required 08/14/23 11:22 08/14/23 11:57 Temperature 36.6 C Temperature Source Oral Pulse Rate Pulse Rate [Apical] 90 91 H Pulse Rhythm Pulse Rhythm [Apical] Regular Regular Pulse Strength [Apical] Normal Normal Respiratory Rate 20 20 Respiratory Effort / Characteristics Non-Labored Spontaneous Non-Labored Spontaneous Respiratory Depth Normal Normal Respiratory Pattern Regular Regular Blood Pressure Blood Pressure [Right Arm] 95/62 L 94/57 L Blood Pressure Mean Blood Pressure Mean [Right Arm] 73 69 Blood Pressure Position [Right Arm] Sitting Semi-fowlers Pulse Oximetry 96 95 Oxygen Delivery Method Room Air Room Air Sepsis Recent Fever Within 48 Hours Sepsis New/Unexplained Change in Mental Status Sepsis Action Taken by Nursing Laboratory Data 08/14/23 10:49 08/14/23 10:49 Lab Results 08/14/23 08/14/23 08/14/23 Range/Units 10:49 10:49 10:49 WBC 19.90 H (4.8-10.8) K/ul RBC 3.33 L (4.20-5.40) M/uL Hgb 8.7 L (12.0-16.0) g/dl Hct 26.3 L (37.0-47.0) % MCV 79.0 L (80.0-100.0) fL MCH 26.1 (25.0-34.0) pg MCHC 33.1 (32.0-36.0) g/dL RDW Std Deviation 43.8 (36.4-46.3) fL RDW Coeff of Rivka 15.1 H (11.5-14.5) % Plt Count 484 H (130-400) K/uL MPV 9.1 L (9.4-12.4) fL Immature Gran % (Auto) 1.1 % Neut % (Auto) 86.1 % Lymph % (Auto) 3.7 % Lares % (Auto) 8.8 % Eos % (Auto) 0.0 % Baso % (Auto) 0.3 % Neut # (Auto) 17.13 H (1.40-6.50) K/uL Lymph # (Auto) 0.73 L (1.20-3.40) K/uL Lares # (Auto) 1.76 H (0.11-0.59) K/uL Eos # (Auto) 0.00 (0.00-0.50) K/uL Baso # (Auto) 0.06 (0.00-0.20) K/uL Immature Gran # (Auto) 0.22 H (0.01-0.20) K/uL Sodium 120 L (136-145) mmol/L Potassium 4.6 (3.5-5.1) mmol/L Chloride 88 L (98-107) mmol/L Carbon Dioxide 23 (21-32) mmol/L Anion Gap 9 (3-11) BUN 26 H (6-23) mg/dl Creatinine 0.91 (0.6-1.2) mg/dl Est Cr Clr Drug Dosing 38.1 ml/min Est GFR ( Amer) 70.0 ml/min Est GFR (Non-Af Amer) 60.4 ml/min BUN/Creatinine Ratio 28.6 H (10-20) Glucose 111 H (70-99(Fasting)) mg/dl Lactate 1.7 (0.4-2.0) mmol/L Calcium 8.8 (8.6-10.3) mg/dl Magnesium 1.6 L (1.7-2.4) mg/dl Total Bilirubin 0.5 (0.2-1.0) mg/dl AST 27 (13-39) U/L ALT 20 (7-52) U/L Alkaline Phosphatase 96 (34-104) U/L Total Protein 6.9 (6.0-8.3) gm/dl Albumin 2.9 L (3.4-5.0) gm/dl Globulin 4.0 (2.5-4.0) gm/dl Albumin/Globulin Ratio 0.7 L (0.9-2) Lipase < 3 L (11-82) U/L Urine Color Urine Appearance (Clear) Urine pH (4.5-7.5) Ur Specific Rifton (1.000-1.030) Urine Protein (Negative) Urine Glucose (UA) (Negative) Urine Ketones (Negative) Urine Blood (Negative) Urine Nitrite (Negative) Urine Bilirubin (Negative) Urine Urobilinogen (Negative) Ur Leukocyte Esterase (Negative) Urine WBC (Auto) (0-5) /hpf Urine RBC (Auto) (0-4) /hpf U Hyaline Cast (Auto) (0-5) /lpf U Epithel Cells (Auto) (0-5) /lpf Urine Bacteria (Auto) (Negative) 08/14/23 Range/Units 11:55 WBC (4.8-10.8) K/ul RBC (4.20-5.40) M/uL Hgb (12.0-16.0) g/dl Hct (37.0-47.0) % MCV (80.0-100.0) fL MCH (25.0-34.0) pg MCHC (32.0-36.0) g/dL RDW Std Deviation (36.4-46.3) fL RDW Coeff of Rivka (11.5-14.5) % Plt Count (130-400) K/uL MPV (9.4-12.4) fL Immature Gran % (Auto) % Neut % (Auto) % Lymph % (Auto) % Lares % (Auto) % Eos % (Auto) % Baso % (Auto) % Neut # (Auto) (1.40-6.50) K/uL Lymph # (Auto) (1.20-3.40) K/uL Lares # (Auto) (0.11-0.59) K/uL Eos # (Auto) (0.00-0.50) K/uL Baso # (Auto) (0.00-0.20) K/uL Immature Gran # (Auto) (0.01-0.20) K/uL Sodium (136-145) mmol/L Potassium (3.5-5.1) mmol/L Chloride (98-107) mmol/L Carbon Dioxide (21-32) mmol/L Anion Gap (3-11) BUN (6-23) mg/dl Creatinine (0.6-1.2) mg/dl Est Cr Clr Drug Dosing ml/min Est GFR ( Amer) ml/min Est GFR (Non-Af Amer) ml/min BUN/Creatinine Ratio (10-20) Glucose (70-99(Fasting)) mg/dl Lactate (0.4-2.0) mmol/L Calcium (8.6-10.3) mg/dl Magnesium (1.7-2.4) mg/dl Total Bilirubin (0.2-1.0) mg/dl AST (13-39) U/L ALT (7-52) U/L Alkaline Phosphatase (34-104) U/L Total Protein (6.0-8.3) gm/dl Albumin (3.4-5.0) gm/dl Globulin (2.5-4.0) gm/dl Albumin/Globulin Ratio (0.9-2) Lipase (11-82) U/L Urine Color Dark Yellow Urine Appearance Clear (Clear) Urine pH 5.5 (4.5-7.5) Ur Specific Rifton 1.022 (1.000-1.030) Urine Protein 1+ H (Negative) Urine Glucose (UA) Negative (Negative) Urine Ketones Trace H (Negative) Urine Blood Negative (Negative) Urine Nitrite Negative (Negative) Urine Bilirubin Negative (Negative) Urine Urobilinogen Negative (Negative) Ur Leukocyte Esterase Negative (Negative) Urine WBC (Auto) 0 (0-5) /hpf Urine RBC (Auto) 0-4 (0-4) /hpf U Hyaline Cast (Auto) 0 (0-5) /lpf U Epithel Cells (Auto) 0-5 (0-5) /lpf Urine Bacteria (Auto) Negative (Negative) Administered Medications Magnesium Sulfate/Dextrose (Magnesium Sulfate / D5w) 1 gm in 100 mls @ 50 mls/hr IV ONE ONE Stop: 08/14/23 15:18 Last Admin: 08/14/23 13:37 Dose: 50 mls/hr Documented By: STEPH Discontinued Medications Cefepime HCl (Cefepime 2,000 Mg/20 Ml Vial) Confirm Administered Dose 2,000 mg .ROUTE .STK-MED ONE Stop: 08/14/23 10:36 Last Admin: 08/14/23 10:50 Dose: Not Given Documented By: ELLEN Sodium Chloride (Nss) 2,000 mls @ 999 mls/hr IV .Q2H1M ONE Stop: 08/14/23 12:19 Last Infusion: 08/14/23 12:50 Dose: 0 mls/hr Documented By: Admin: 08/14/23 10:50 Dose: 999 mls/hr Documented By: ELLEN Cefepime HCl (Maxipime) 2,000 mg in 20 mls @ 5 mls/min IV NOW STA; Protocol Stop: 08/14/23 10:22 Last Admin: 08/14/23 10:50 Dose: 5 mls/min Documented By: ELLEN Imaging Data Radiologist's Impression: Chest X-Ray 08/14/23 10:19 XR chest 1V portable CLINICAL HISTORY: Weak. Lung cancer. COMPARISON STUDY: Chest radiograph and chest CT June 28, 2023. FINDINGS: Left upper lobe mass is again noted. There is mild interstitial thickening. Trace left pleural effusion is present. There is no pneumothorax. No consolidation is identified to suggest pneumonia. Cardiac size is normal. Mediastinal contours are stable. IMPRESSION: 1. Redemonstration of the left upper lobe mass. 2. Diffuse interstitial thickening. This may reflect mild pulmonary edema. 3. Trace left pleural effusion. ACT 112: Negative or not required by law. Electronically signed by: José Miguel Sanchez M.D. 08/14/2023 10:[address] 08/14/23 11:59 CT head/brain wo con CLINICAL HISTORY: 78 years-old Female with ams. Acutely altered mental status TECHNIQUE: Multiple axial CT images of the head were obtained without contrast. A dose lowering technique was utilized adhering to the principles of ALARA. CT DOSE: 625.8 mGy.cm COMPARISON: None. FINDINGS: No acute intracranial hemorrhage, midline shift, intracranial mass, hydrocephalus, territorial ischemia or abnormal extra-axial collection. Involutional changes with mild white matter hypodensities suggestive of chronic microvascular ischemic disease. The calvarium is intact. Prior bilateral lens repair. The paranasal sinuses, mastoid air cells, and middle ear cavities are clear. IMPRESSION: No acute intracranial abnormality. ACT 112: Negative or not required by law. The above report was generated using voice recognition software. It may contain grammatical, syntax or spelling errors. Electronically signed by: Daniel Sheikh M.D. 08/14/2023 12:30 PM Discharge Plan Visit Data Chief Complaint: Illness Stated Complaint: SHAKY, DELIRIUOS, WEAKNESS ED Provider: Guy Cooper Discharge Problem: Hyponatremia, Non-small cell cancer of left lung, Acute hypotension Patient Disposition: Admitted As Inpatient Discharge Instructions Interventions: ED Discharge Assessment Last Done: 08/14/23 13:37
[2023-08-14] MEDS ORDERED: CEFEPIME 2,000 MG/20 ML VIAL ONE (10:35)
--- NOTE | 2023-08-14 10:47 | XRay Report ---
XR chest 1V portable CLINICAL HISTORY: Weak. Lung cancer. COMPARISON STUDY: Chest radiograph and chest CT June 28, 2023. FINDINGS: Left upper lobe mass is again noted. There is mild interstitial thickening. Trace left pleu ral effusion is present. There is no pneumothorax. No consolidation is identified to suggest pneumoni a. Cardiac size is normal. Mediastinal contours are stable. IMPRESSION: 1. Redemonstration of the left upper lobe mass. 2. Diffuse interstitial thickening. This may reflect mild pulmonary edema. 3. Trace left pleural effusion. ACT 112: Negative or not required by law. Electronically signed by: José Miguel Sanchez M.D. 08/14/2023 10:45 AM
[2023-08-14 11:06] LABS: Basophils # (auto) 0.06 K/uL (0.00-0.20); Basophils % (auto) 0.3 %; Hematocrit (blood only) 26.3 % (37.0-47.0); Hemoglobin 8.7 g/dl (12.0-16.0); Immature Granulocytes # (auto) 0.22 K/uL (0.01-0.20); Immature Granulocytes % (auto) 1.1 %; Lymphocytes # (auto) 0.73 K/uL (1.20-3.40); Lymphocytes % (auto) 3.7 %; Mean Corpuscular Hemoglobin 26.1 pg (25.0-34.0); Mean Corpuscular Hgb Conc 33.1 g/dL (32.0-36.0); Mean Platelet Volume 9.1 fL (9.4-12.4); Monocytes # (auto) 1.76 K/uL (0.11-0.59); Monocytes % (auto) 8.8 %; Neutrophils # (auto) 17.13 K/uL (1.40-6.50); Neutrophils % (auto) 86.1 %; Platelet Count 484 K/uL (130-400); RDW Coefficient of Variation 15.1 % (11.5-14.5); RDW Standard Deviation 43.8 fL (36.4-46.3); Red Blood Count 3.33 M/uL (4.20-5.40)
[2023-08-14 11:51] LABS: Anion Gap 9 (3-11); BUN Creatinine Ratio 28.6 (10-20); Blood Urea Nitrogen 26 mg/dl (6-23); Calcium 8.8 mg/dl (8.6-10.3); Carbon Dioxide 23 mmol/L (21-32); Chloride 88 mmol/L (98-107); Creatinine Clr Calc Pharmacy 38.1 ml/min; Est GFR (Non-African American) 60.4 ml/min; Glucose 111 mg/dl (70-99(Fasting)); Potassium 4.6 mmol/L (3.5-5.1); Sodium 120 mmol/L (136-145)
[2023-08-14 11:59] LABS: Alanine Aminotransferase 20 U/L (7-52); Albumin Globulin Ratio 0.7 (0.9-2); Albumin Level 2.9 gm/dl (3.4-5.0); Alkaline Phosphatase 96 U/L (34-104); Aspartate Aminotransferase 27 U/L (13-39); Bilirubin,Total 0.5 mg/dl (0.2-1.0); Lipase < 3 U/L (11-82); Magnesium 1.6 mg/dl (1.7-2.4); Total Protein 6.9 gm/dl (6.0-8.3)
[2023-08-14 12:10] LABS: Appearance Urine Clear (Clear); Bacteria Urine Automated Negative (Negative); Bilirubin Urine Negative (Negative); Blood Urine Negative (Negative); Cast Urine Automated 0 /lpf (0-5); Color Urine Dark Yellow; Epithelial Cell Urine Auto 0-5 /lpf (0-5); Glucose Urine UA Negative (Negative); Ketones Urine Trace (Negative); Leukocyte Esterase Urine Negative (Negative); Nitrite Urine Negative (Negative); Protein Urine 1+ (Negative); RBC Urine Automated 0-4 /hpf (0-4); Specific Gravity Urine 1.022 (1.000-1.030); Urobilinogen Urine Negative (Negative); WBC Urine Automated 0 /hpf (0-5); pH Urine 5.5 (4.5-7.5)
--- NOTE | 2023-08-14 12:32 | CT Scan Report ---
CT head/brain wo con CLINICAL HISTORY: 78 years-old Female with ams. Acutely altered mental status TECHNIQUE: Multiple axial CT images of the head were obtained without contrast. A dose lowering tech nique was utilized adhering to the principles of ALARA. CT DOSE: 625.8 mGy.cm COMPARISON: None. FINDINGS: No acute intracranial hemorrhage, midline shift, intracranial mass, hydrocephalus, territorial ischem ia or abnormal extra-axial collection. Involutional changes with mild white matter hypodensities sugg estive of chronic microvascular ischemic disease. The calvarium is intact. Prior bilateral lens repair. The paranasal sinuses, mastoid air cells, and m iddle ear cavities are clear. IMPRESSION: No acute intracranial abnormality. ACT 112: Negative or not required by law. The above report was generated using voice recognition software. It may contain grammatical, syntax o r spelling errors. Electronically signed by: Daniel Sheikh M.D. 08/14/2023 12:30 PM
[2023-08-14] MEDS ORDERED: MAGNESIUM SULFATE / D5W 1 GM/100 ML BAG IV ONE (13:19)
--- NOTE | 2023-08-14 13:41 | History & Physical Report ---
Date of Service August 14, 2023 Assessment & Plan (1) Hyponatremia: (2) Acute hypotension: Plan: Admit to telemetry Patient presenting from home for evaluation of generalized weakness and confusion. History of non-small cell lung cancer, currently on chemotherapy initiated 07/24 with associated poor p.o. intake. In the ED, labs show Na+ 120 Suspect hypovolemic hyponatremia in the setting of poor p.o. intake and dehydration Received 1 L IVF in ED, Na+ 120 --> 123 Start NSS @ 125/hr, serial BMP Urine and serum osmolality Hypotension (SBPs in the 90s) noted, likely due to hypovolemia -continue to monitor response with IVF Some consideration given for adrenal insufficiency given reported use of prednisone however seems to not be a significant amount --random cortisol checked and found to be 24.5 (3) Leukocytosis: Plan: WBC 19 K No obvious source of infection at this time S/p cefepime in the ED, will continue with empirically given immunocompromise state. Check MRSA nasal swab and a positive add vancomycin. Await cultures (4) Anemia: Plan: Hgb 8.7 Chronic, stable, in the setting of underlying malignancy and chemotherapy No indication for transfusion at this time Monitor CBC (5) Non-small cell cancer of left lung: Plan: Currently on Tecentriq, carboplatin, etoposide - last cycle 07/24-07/[address] Bray (6) History of pulmonary embolism: Plan: On Eliquis, continue DVT PROPHYLAXIS On Eliquis Patient seen in collaboration with Dr. Nixon. I spent a total of 75 minutes coordinating, documenting, and providing care for this patient excluding time spent in the performance of separately billed services. This included personally reviewing all current laboratories and imaging studies, medication reconciliation, outpatient chart review, and discussion with specialists. Admission and Anticipated Discharge Date Admission Date: August 14, 2023 History of Present Illness Chief Complaint: Weakness, confusion Primary Care Provider: Antonio Loza MD 78-year-old female PMH pulmonary embolism anticoagulated on Eliquis, non-small cell lung cancer on chemotherapy currently on Tecentriq, carboplatin, etoposide - last cycle 07/24-07/26, and other problems to below who presents to the ED for evaluation of weakness and confusion. History is somewhat limited from the patient, history obtained from daughter over the telephone and review of outpatient PCP and oncology records. Patient recently started chemotherapy for lung cancer on 07/24. Daughter states that the week following chemo, patient was very weak and had a very poor appetite. Patient had some leftover prednisone at home from her previous prescription that she took for a few days last week. She was advised to stop this per recommendations from oncologist. Daughter states that yesterday, she noted her mother to be confused which is unusual for her. She also seemed to be getting weaker. Symptoms continued today and patient was evaluated in the ED. Patient has been eating and drinking however minimally. Denies nausea, vomiting, diarrhea. No fevers or chills. Denies chest pain or shortness of breath. No lightheadedness, dizziness, diaphoresis, syncopal events. Denies urinary symptoms. In the ED, patient is borderline hypotensive with systolic BPs in the 90s. Labs show WBC 19.9 K, Na+ 120, Mg +1.6. No obvious source of infection at this time. Patient was given IVF and IV cefepime. Allergies Allergy/AdvReac Type Severity Reaction Status Date / Time No Known Allergies Allergy Verified 06/28/23 16:24 Home Medications Medication Instructions Recorded Confirmed Type apixaban 5 mg tablet (Eliquis) 5 mg PO BID 06/28/23 08/14/23 History famotidine 20 mg tablet 20 mg PO BID PRN Gi Upset 06/28/23 08/14/23 History oxycodone 5 mg tablet 5 mg PO Q4H PRN pain #20 tabs 06/30/23 08/14/23 Rx lidocaine 5 % topical patch 1 patch transdermal HS PRN Pain 08/14/23 08/14/23 History morphine 15 mg tablet,extended 15 mg PO HS 08/14/23 08/14/23 History release ondansetron HCl 8 mg tablet 8 mg PO Q8H PRN n/v 08/14/23 08/14/23 History prochlorperazine maleate 10 mg 10 mg PO Q6H PRN n/v 08/14/23 08/14/23 History tablet sennosides 8.6 mg tablet (Senokot) 8.6 mg PO QAM PRN const 08/14/23 08/14/23 History Past Med/Surg History Medical History History of pulmonary embolism Non-small cell cancer of left lung Surgical History History of hip surgery History of parotidectomy Social History Smoking Status: Former smoker Tobacco Type: Cigarettes Second Hand Exposure: No; Do You Dip or Chew Tobacco: No; Tobacco Cessation Education Requested by Patient: No Hx Alcohol Use: Yes Alcohol type: wine Hx Substance Use: No Preferred Language: Lao Communication Ability: Effective 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: No Beliefs That Will Affect Care: None Current Living Situation: Family Current Living Situation Comment: currently lives with daughter in 2 story house Other Information That Helps Us Care for You: No Feels Safe at Home: Yes Assistive Devices: Denture - Upper, Denture - Lower and Glasses Physical Exam Constitutional: + ill appearing and + thin; no acute distress Eyes: PERRL, conjunctivae normal, anicteric sclerae ENMT: external ear and nose normal, oropharynx normal Respiratory: normal respiratory effort; no respiratory distress Auscultation: + diminished lung sounds Cardiovascular: Rate/Rhythm: regular rate and regular rhythm Vessels: normal peripheral pulses Extremities: no edema Gastrointestinal (Abdomen): normal bowel sounds, soft, nontender, no hepatosplenomegaly Musculoskeletal: no cyanosis or clubbing, extremities motor strength 5/5 Skin: no rashes, warm and dry Neurologic: PERRL, EOMI, accommodation nl, no face palsy, no dysarthria Psychiatric: Orientation: alert, oriented to person and oriented to time; + not oriented to place (aware she is in hospital but states "[facility]") Insight: + limited insight Results & Data Results & Data Vital Signs (Past 12 Hours) Vital Signs Temp Pulse Pulse Resp BP BP Pulse Ox 08/14/23 11:57 36.6 C 91 H 20 94/57 L 95 08/14/23 11:22 90 20 95/62 L 96 08/14/23 10:49 92 H 18 96 08/14/23 11:14 93 H 08/14/23 10:05 36.7 C 110 H 16 98/63 L 95 O2 Del Method 08/14/23 11:57 Room Air 08/14/23 11:22 Room Air 08/14/23 10:49 Room Air 08/14/23 11:14 08/14/23 10:05 Room Air Laboratory Results Short CBC 08/14/23 Range/Units 10:49 WBC 19.90 H (4.8-10.8) K/ul Hgb 8.7 L (12.0-16.0) g/dl Hct 26.3 L (37.0-47.0) % Plt Count 484 H (130-400) K/uL BMP 08/14/23 08/14/23 10:49 14:10 Sodium 120 L 123 L Potassium 4.6 4.2 Chloride 88 L 94 L Carbon Dioxide 23 22 BUN 26 H 23 Creatinine 0.91 0.83 Glucose 111 H 153 H Calcium 8.8 8.0 L Liver Function 08/14/23 Range/Units 10:49 Total Bilirubin 0.5 (0.2-1.0) mg/dl AST 27 (13-39) U/L ALT 20 (7-52) U/L Alkaline Phosphatase 96 (34-104) U/L Albumin 2.9 L (3.4-5.0) gm/dl Urine 08/14/23 Range/Units 11:55 Urine Color Dark Yellow Urine Appearance Clear (Clear) Urine pH 5.5 (4.5-7.5) Ur Specific [place] 1.022 (1.000-1.030) Urine Protein 1+ H (Negative) Urine Glucose (UA) Negative (Negative) Diagnostic Findings Chest X-Ray 08/14/23 10:19 XR chest 1V portable CLINICAL HISTORY: Weak. Lung cancer. COMPARISON STUDY: Chest radiograph and chest CT June 28, 2023. FINDINGS: Left upper lobe mass is again noted. There is mild interstitial thickening. Trace left pleural effusion is present. There is no pneumothorax. No consolidation is identified to suggest pneumonia. Cardiac size is normal. Media stinal contours are stable. IMPRESSION: 1. Redemonstration of the left upper lobe mass. 2. Diffuse interstitial thickening. This may reflect mild pulmonary edema. 3. Trace left pleural effusion. ACT 112: Negative or not required by law. Electronically signed by: José Miguel Sanchez M.D. 08/14/2023 10:[address] 08/14/23 11:59 CT head/brain wo con CLINICAL HISTORY: 78 years-old Female with ams. Acutely altered mental status TECHNIQUE: Multiple axial CT images of the head were obtained without contrast. A dose lowering technique was utilized adhering to the principles of ALARA. CT DOSE: 625.8 mGy.cm COMPARISON: None. FINDINGS: No acute intracranial hemorrhage, midline shift, intracranial mass, hydrocephalus, territorial ischemia or abnormal extra-axial collection. Involutional changes with mild white matter hypodensities suggestive of chronic microvascular ischemic disease. The calvarium is intact. Prior bilateral lens repair. The paranasal sinuses, mastoid air cells, and middle ear cavities are clear. IMPRESSION: No acute intracranial abnormality. ACT 112: Negative or not required by law. The above report was generated using voice recognition software. It may contain grammatical, syntax or spelling errors. Electronically signed by: Daniel Sheikh M.D. 08/14/2023 12:30 PM Code Status & VTE Plan VTE Prophylaxis Plan VTE Prophylaxis will be ordered: No Supervising Physician Co-Signing Physician Notes I have seen and discussed the case with the collaborating VIDEOTAPE OPERATOR. I agree with the above H&P. I have reviewed and confirmed the patients medical history, the findings on physical examination, and the patients diagnosis and treatment plan with Love VIDEOTAPE OPERATOR and agree with the information documented. In short, Ms. Broussard is 78 year old woman with past medical history notable for nonsmall cell carcinoma of the left lung, prior PE on eliquis who is being admitted for failure to thrive. Patient hypotensive to 90s. Leukocytosis to 16 with left shift, acute on chronic hyponatremia to 120 (~128-129), magnesium 1.6, UA negative, CXR stable from prior with DEBBIE infiltrate/mass consistent with known malignancy. Patient poor historian, but daughter able to state patient has been weaker since her last chemo. Patient has been taking daily prednisone depsite recommendation from Dr. Bray not to given concern for interaction with imm unotherapy--this is what is stated in OSH records; however, patient and daughter claim that she has only been on a "small amount" for approximately three days. PE notable for frail, cachectic patient. Plan: IVF for hyponatremia, baselin 126, correcting appropriately, hold fluids if sodium >126-128 to avoid overcorrection. Emipric coverage given leukocytosis and immunocompromised state while infectious work-up pending. Plan as above.
[2023-08-14 14:40] LABS: BUN Creatinine Ratio 27.7 (10-20); Creatinine Clr Calc Pharmacy 41.8 ml/min; Est GFR (African American) 78.3 ml/min; Est GFR (Non-African American) 67.5 ml/min; Potassium 4.2 mmol/L (3.5-5.1)
[2023-08-14] MEDS: SODIUM CHLORIDE 0.9% 1,000 ML IV SCH (16:43)
[2023-08-14] MEDS ORDERED: SENNA 8.6 MG TAB PO STA (19:40)
[2023-08-14] MEDS: MoRPHine SULFATE CR 15 MG TABCR PO SCH (20:17)
[2023-08-14] MEDS: CEFEPIME 2,000 MG in SYRINGE 0 ML IV SCH (20:18)
[2023-08-14 21:03] LABS: BUN Creatinine Ratio 25.6 (10-20); Calcium 8.5 mg/dl (8.6-10.3); Creatinine Clr Calc Pharmacy 44.5 ml/min; Est GFR (African American) 84.4 ml/min; Est GFR (Non-African American) 72.8 ml/min; Potassium 4.1 mmol/L (3.5-5.1)
[2023-08-14] MEDS: APIXABAN 5 MG TABLET PO SCH (21:15)
[2023-08-15] MEDS: SODIUM CHLORIDE 0.9% 1,000 ML IV SCH ×2 (01:15→08:23)
[2023-08-15] MEDS: CEFEPIME 2,000 MG in SYRINGE 0 ML IV SCH ×2 (03:05→15:34)
[2023-08-15] MEDS: oxyCODONE HCL IR 5 MG TAB (IMMEDIATE RELEASE) PO PRN ×5 (03:05→21:57)
[2023-08-15] MEDS ORDERED: METOPROLOL TARTRATE 1 MG/ML VIAL IV STA (08:09)
[2023-08-15 08:11] LABS: Hematocrit (blood only) 25.6 % (37.0-47.0); Hemoglobin 8.5 g/dl (12.0-16.0); Mean Corpuscular Hemoglobin 26.7 pg (25.0-34.0); Mean Corpuscular Hgb Conc 33.2 g/dL (32.0-36.0); Mean Corpuscular Volume 80.5 fL (80.0-100.0); Mean Platelet Volume 9.2 fL (9.4-12.4); Platelet Count 564 K/uL (130-400); RDW Coefficient of Variation 15.5 % (11.5-14.5); RDW Standard Deviation 45.2 fL (36.4-46.3); Red Blood Count 3.18 M/uL (4.20-5.40); White Blood Count 13.76 K/ul (4.8-10.8)
[2023-08-15 08:30] LABS: BUN Creatinine Ratio 27.7 (10-20); Calcium 8.3 mg/dl (8.6-10.3); Est GFR (African American) 98.6 ml/min; Magnesium 1.8 mg/dl (1.7-2.4); Potassium 4.1 mmol/L (3.5-5.1)
[2023-08-15] MEDS: METOPROLOL TARTRATE 25 MG TAB PO SCH ×3 (09:03→19:56)
[2023-08-15] MEDS: APIXABAN 5 MG TABLET PO SCH ×2 (09:03→19:56)
--- NOTE | 2023-08-15 09:09 | Electrocardiogram Report ---
Test Reason : Blood Pressure : / mmHG Vent. Rate : 124 BPM Atrial Rate : 115 BPM P-R Int : 000 ms QRS Dur : 084 ms QT Int : 260 ms P-R-T Axes : 000 058 078 degrees QTc Int : 373 ms Atrial fibrillation with rapid ventricular response Diffuse Minor Nonspecific T wave abnormality Abnormal ECG When compared with ECG of 28-JUN-2023 09:53, Atrial fibrillation has replaced Sinus rhythm Criteria for Anterior infarct are no longer Present Nonspecific T wave abnormality now evident in Inferior leads Nonspecific T wave abnormality now evident in Lateral leads Confirmed by Antonio Knott ([id number]) on 08/15/2023 9:09:29 AM Referred By: REFERRED SELF Confirmed By:Antonio Knott
[2023-08-15] MEDS: SODIUM CHLOR 7% 4 ML NEB NEB SCH ×2 (09:14→19:34)
[2023-08-15] MEDS: ALBUT/IPRATROP 3MG/0.5MG NEB 3 ML VIAL NEB SCH ×2 (09:14→19:34)
--- NOTE | 2023-08-15 12:16 | Cardiology Consultation ---
Date of Consultation August 15, 2023 Assessment & Plan (1) Atrial fibrillation with RVR: (2) Hyponatremia: (3) Non-small cell cancer of left lung: Plan Patient seen/examined today in collaboration with Dr. Veliz. See supervising physicians documentation for additional recommendations and plan of care. Supervising Physician Co-Signing Physician Notes Pt seen and examined with [facility] staff. Concur with observations and plans 78 yo woman presenting with weakness and confusion. Consult for: afib with RVR * On admission - significant hyponatremia - Na+ 120 * + Hx of non-small cell Lung CA - chest wall extension - local extension * No known pericardial effusion * Currently undergoing chemotherapy * ECHO performed * LVEF 65-70% - LA size mildly enlarged - Mild MR, Moderate TR, IVC normal in size * No pericardial effusion * K+ 4.6 - on presentation * Mag 1.6 - on presentation * TSH - Pending * Hx of PE in 02/2023 - on DOAC (ongoing) - afib at the time of presentation * Pt was started on IV Lopressor * Marginal systemic BPs. Plan: * Pt was actively on DOAC when she developed AFIB * Blood pressures are marginal making aggressive escalation in beta blockade more challenging * Aggressive Magnesium repletion - 4 gm MagSO4 * if HR remains uncontrolled after magnesium infusion and SBP remains <100 mmHg, consider Amiodarone IV load * Concern that afib may be secondary to local invasive tumor burden * In cases of local invasion, afib can prove to be (1) very challenging to control and (2) a poor prognostic indicator. * Continue DOAC * Hyponatremia being corrected - IVC was normal in size Geovanni Veliz History of Present Illness Reason for Consultation: Afib RVR Requesting Physician: Dr. Perkins Attending Physician: Dr. Veliz History of Present Illness Patient is a 78 year old female admitted for weakness, confusion found to be hyponatremic, possible hypovolemia hyponatremia. Started on IV fluids. This morning patient developed Afib RVR. Treated with IV Lopressor with improved HR's. Remains in atrial fibrillation at this time with mildly elevated rates. Started on metoprolol tartrate 25 mg q 6 hours. She is already on Eliquis. magnesium supplemented. Hyponatremia slowly improving Echocardiogram completed this morning demonstrating normal LVEF, mild MR, moderate TR. No wall motion abnormalities. History includes: 1. Non small cell cancer of the left lung, currently undergoing chemotherapy. 2. Anemia 3. History of PE diagnosed in February 2023- on Eliquis 4. Episode of afib RVR at time of PE in February 2023, converting to NSR spontaneously. Patient feeling ok at time of consult. Ongoing weakness reported. Asymptomatic with the afib. Converted to NSR at 13:44 after metoprolol and magnesium. Allergies Allergy/AdvReac Type Severity Reaction Status Date / Time No Known Allergies Allergy Verified 06/28/23 16:24 Home Medications Medication Instructions Recorded Confirmed Type apixaban 5 mg tablet (Eliquis) 5 mg PO BID 06/28/23 08/14/23 History famotidine 20 mg tablet 20 mg PO BID PRN Gi Upset 06/28/23 08/14/23 History oxycodone 5 mg tablet 5 mg PO Q4H PRN pain #20 tabs 06/30/23 08/14/23 Rx lidocaine 5 % topical patch 1 patch transdermal HS PRN Pain 08/14/23 08/14/23 History morphine 15 mg tablet,extended 15 mg PO HS 08/14/23 08/14/23 History release ondansetron HCl 8 mg tablet 8 mg PO Q8H PRN n/v 08/14/23 08/14/23 History prochlorperazine maleate 10 mg 10 mg PO Q6H PRN n/v 08/14/23 08/14/23 History tablet sennosides 8.6 mg tablet (Senokot) 8.6 mg PO QAM PRN const 08/14/23 08/14/23 History Patient History Medical History History of pulmonary embolism Non-small cell cancer of left lung Surgical History History of hip surgery History of parotidectomy Social History Smoking Status: Former smoker Tobacco Type: Cigarettes Second Hand Exposure: No; Do You Dip or Chew Tobacco: No; Tobacco Cessation Education Requested by Patient: No Hx Alcohol Use: Yes Alcohol type: wine Hx Substance Use: No Preferred Language: Armenian Communication Ability: Effective 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 And 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 Required: No Beliefs That Will Affect Care: None Current Living Situation: Family Current Living Situation Comment: currently lives with daughter in 2 story house Other Information That Helps Us Care for You: No Feels Safe at Home: Yes Assistive Devices: None Review of Systems Review of Systems: All systems reviewed & are unremarkable except as noted in HPI & below Physical Exam Constitutional: WD/WN, vitals as above + thin and + frail appearing; no acute distress Respiratory: no labored breathing Auscultation: + diminished lung sounds Cardiovascular: Rate/Rhythm: regular rate and regular rhythm Heart Sounds: no murmur Extremities: no edema Results & Data Vital Signs (Past 12 Hours) Vital Signs Temp Pulse Pulse Resp BP Pulse Ox O2 Del Method 08/15/23 12:12 36.7 C 132 H 18 99/67 L 99 Room Air 08/15/23 08:00 Nasal Cannula 08/15/23 08:00 91 H 08/15/23 09:18 116 H 16 98 Nasal Cannula 08/15/23 08:22 114 H 08/15/23 08:11 36.6 C 143 H 21 137/79 100 Nasal Cannula 08/15/23 08:19 146 H 08/15/23 02:59 36.6 C 85 18 105/59 L 94 Room Air O2 Flow Rate 08/15/23 12:12 08/15/23 08:00 2 08/15/23 08:00 08/15/23 09:18 1 08/15/23 08:22 08/15/23 08:11 2.0 08/15/23 08:19 08/15/23 02:59 Laboratory Results CBC 08/15/23 Range/Units 07:40 WBC 13.76 H (4.8-10.8) K/ul RBC 3.18 L (4.20-5.40) M/uL Hgb 8.5 L (12.0-16.0) g/dl Hct 25.6 L (37.0-47.0) % Plt Count 564 H (130-400) K/uL Comprehensive Metabolic Panel 08/14/23 08/14/23 08/15/23 Range/Units 14:10 20:19 07:40 Sodium 123 L 123 L 125 L (136-145) mmol/L Potassium 4.2 4.1 4.1 (3.5-5.1) mmol/L Chloride 94 L 93 L 95 L (98-107) mmol/L Carbon Dioxide 22 24 22 (21-32) mmol/L BUN 23 20 18 (6-23) mg/dl Creatinine 0.83 0.78 0.65 (0.6-1.2) mg/dl Glucose 153 H 105 H 97 (70-99(Fasting)) mg/dl Calcium 8.0 L 8.5 L 8.3 L (8.6-10.3) mg/dl Intake and Output 08/14/23 08/15/23 08/15/23 22:59 06:59 14:59 Intake Total 100 / 3438 1220 / 3438 891.667 / 891.667 Balance 100 / 3438 1220 / 3438 891.667 / 891.667 Intake: IV 100 / 3100 1000 / 3100 891.667 / 891.667 Magnesium Sulfate / D5w 1 gm In 100 / 100 100 ml @ 50 mls/hr IV ONE ONE Rx#:[id number] Sodium Chloride 0.9% 1,000 ml @ 1000 / 1000 891.667 / 891.667 125 mls/hr IV .Q8H [facility] Rx#: [id number] Oral 220 / 338 Other: Weight 47.4 kg 52.4 kg Weight Measurement Method Built in [facility] Diagnostic Findings Telemetry reviewed: NSR upon admission. At 7:53 AM on 08/15, patient developed afib RVR in the 180's. Treated with IV Lopressor and HR's improved to 110- 120's. Remains in afib. When in NSR HR's were 70-90's. at 13:44 today, patient converted back to NSR EKG this morning at 8:05 Atrial fibrillation with rapid ventricular response Diffuse Minor Nonspecific T wave abnormality Abnormal ECG When compared with ECG of 28-JUN-2023 09:53, Atrial fibrillation has replaced Sinus rhythm Criteria for Anterior infarct are no longer Present Nonspecific T wave abnormality now evident in Inferior leads Nonspecific T wave abnormality now evident in Lateral leads Echocardiogram report reviewed 08/15/23: No study for comparison LVEF 65-70% Mild concentric LVH Mild MR Moderate TR No pulm hypertension Chest X-Ray 08/14/23 10:19 XR chest 1V portable CLINICAL HISTORY: Weak. Lung cancer. COMPARISON STUDY: Chest radiograph and chest CT June 28, 2023. FINDINGS: Left upper lobe mass is again noted. There is mild interstitial thickening. Trace left pleural effusion is present. There is no pneumothorax. No consolidation is identified to suggest pneumonia. Cardiac size is normal. Mediastinal contours are stable. IMPRESSION: 1. Redemonstration of the left upper lobe mass. 2. Diffuse interstitial thickening. This may reflect mild pulmonary edema. 3. Trace left pleural effusion. ACT 112: Negative or not required by law. Electronically signed by: José Miguel Sancehz M.D. 08/14/2023 10:[address] 08/14/23 11:59 CT head/brain wo con CLINICAL HISTORY: 78 years-old Female with ams. Acutely altered mental status TECHNIQUE: Multiple axial CT images of the head were obtained without contrast. A dose lowering technique was utilized adhering to the principles of ALARA. CT DOSE: 625.8 mGy.cm COMPARISON: None. FINDINGS: No acute intracranial hemorrhage, midline shift, intracranial mass, hydro cephalus, territorial ischemia or abnormal extra-axial collection. Involutional changes with mild white matter hypodensities suggestive of chronic microvascular ischemic disease. The calvarium is intact. Prior bilateral lens repair. The paranasal sinuses, mastoid air cells, and middle ear cavities are clear. IMPRESSION: No acute intracranial abnormality. ACT 112: Negative or not required by law. The above report was generated using voice recognition software. It may contain grammatical, syntax or spelling errors. Electronically signed by: Daniel Sheikh M.D. 08/14/2023 12:30 PM Medications Administered Current Inpatient Medications Acetaminophen (Acetaminophen 325 Mg Tab) 650 mg PO Q4H PRN PRN Reason: Pain or Fever Stop: 09/13/23 13:36 Albuterol (Albut/Ipratrop 3mg/0.5mg Neb 3 Ml Vial) 3 ml NEB BIDR [facility]; Protocol Stop: 09/14/23 08:59 Last Admin: 08/15/23 09:14 Dose: 3 ml Apixaban (Apixaban 5 Mg Tablet) 5 mg PO BID [facility] Stop: 09/13/23 20:59 Last Admin: 08/15/23 09:03 Dose: 5 mg Cefepime HCl 2,000 mg/ Syringe 20 mls @ 5 mls/min IV Q12H [facility]; Protocol Stop: 08/16/23 19:59 Metoprolol Tartrate (Metoprolol Tartrate 25 Mg Tab) 25 mg PO Q6H [facility] Stop: 09/14/23 08:59 Last Admin: 08/15/23 09:03 Dose: 25 mg Morphine Sulfate (Morphine Sulfate Cr 15 Mg Tabcr) 15 mg PO HS [facility] Stop: 08/28/23 20:59 Last Admin: 08/14/23 20:17 Dose: 15 mg Oxycodone HCl (Oxycodone Hcl Ir 5 Mg Tab (Immediate Release)) 5 mg PO Q4H PRN PRN Reason: pain Stop: 08/28/23 13:42 Last Admin: 08/15/23 07:32 Dose: 5 mg Sodium Chloride (Sodium Chlor 7% 4 Ml Neb) 4 ml NEB BIDR [facility] Stop: 09/14/23 08:39 Last Admin: 08/15/23 09:14 Dose: 4 ml
[2023-08-15] MEDS: MAGNESIUM SULFATE / D5W 1 GM/100 ML BAG IV SCH ×4 (13:53→19:56)
[2023-08-15 14:45] LABS: Urine Potassium 56.9 mmol/L
--- NOTE | 2023-08-15 14:48 | Hospitalist Progress Note ---
Date of Service August 15, 2023 Assessment & Plan (1) Hyponatremia: (2) Acute hypotension: Plan: Patient presenting from home for evaluation of generalized weakness and confusion. History of non-small cell lung cancer, currently on chemotherapy initiated 07/24 with associated poor p.o. intake. In the ED, labs show Na+ 120 Suspect hypovolemic hyponatremia in the setting of poor p.o. intake and dehydration Random cortisol of 24.5. Ordered urine osmolarity, urine electrolytes; awaiting studies. Patient has chronic hyponatremia with sodium around 126 to 127; will place her on fluid restriction of 1200 cc (3) Atrial fibrillation with RVR: Plan: On the morning of August 15, 2023; patient had atrial fibrillation with RVR with ventricular rate in the 160s to 170s EKG ordered and personally reviewed; atrial fibrillation with ventricular rate of 124 Echocardiogram shows EF of 65 to 70% with mild concentric left ventricular hypertrophy. Started on metoprolol 25 mg 4 times a day. Continue telemetry monitoring. Continue on Eliquis (4) Leukocytosis: Plan: Possible postobstructive pneumonia WBC 19 K on presentation; down trended Blood culture no growth in 24 hours Continue antibiotic for possible postobstructive pneumonia. Follow-up on blood culture Airway clearance therapy (5) Anemia: Plan: Hgb 8.7 Chronic, stable, in the setting of underlying malignancy and chemotherapy No indication for transfusion at this time Monitor CBC (6) Non-small cell cancer of left lung: Plan: Currently on Tecentriq, carboplatin, etoposide - last cycle 07/24-07/[address] Bray (7) History of pulmonary embolism: Plan: On Eliquis, continue DVT PROPHYLAXIS On Eliquis Time spent evaluating patient, direct bedside care, chart review, placing orders, interpretation of diagnostic studies, discussion with consultants, patient, and family members, as well as other required patient management activities is 60 minutes Please note the above document was generated using voice recognition software. It may contain grammatical, syntax or spelling errors. Any formal questions or concerns about the content, text or information contained within the body of this dictation should be directly addressed to the provider for clarification Admission and Anticipated Discharge Date Admission Date: August 14, 2023 Subjective Patient seen and examined at bedside. She is sitting up on the bed comfortably; not in distress. She denies chest pain, palpitation or shortness of breath. Patient had atrial fibrillation with RVR with ventricular rate of 170s. Review of Systems Review of Systems: All systems reviewed & are unremarkable except as noted in Subjective Physical Exam Physical Exam: Constitutional: WD/WN, vitals as above, NAD, sitting up in bed, pleasant, conversing easily Respiratory: Decreased air entry left upper and midlung [place]. Cardiovascular: Irregular, no murmur, no edema Vessels: no JVD or carotid bruit Chest: normal inspection of chest Abdomen: normal bowel sounds, soft, nontender, no hepatosplenomegaly Musculoskeletal: no cyanosis or clubbing, extremities motor strength 5/5 Skin: no rashes, warm and dry normal turgor Neurologic: Grossly intact Psychiatric: Alert oriented to self and place. Results & Data Results & Data Vital Signs (Past 12 Hours) Vital Signs Temp Pulse Pulse Resp BP Pulse Ox O2 Del Method 08/15/23 12:12 36.7 C 132 H 18 99/67 L 99 Room Air 08/15/23 08:00 Nasal Cannula 08/15/23 08:00 91 H 08/15/23 09:18 116 H 16 98 Nasal Cannula 08/15/23 08:22 114 H 08/15/23 08:11 36.6 C 143 H 21 137/79 100 Nasal Cannula 08/15/23 08:19 146 H 08/15/23 02:59 36.6 C 85 18 105/59 L 94 Room Air O2 Flow Rate 08/15/23 12:12 08/15/23 08:00 2 08/15/23 08:00 08/15/23 09:18 1 08/15/23 08:22 08/15/23 08:11 2.0 08/15/23 08:19 08/15/23 02:59 Laboratory Results Laboratory Results WBC 13.76 K/ul (4.8-10.8) H 08/15/23 07:40 RBC 3.18 M/uL (4.20-5.40) L 08/15/23 07:40 Hgb 8.5 g/dl (12.0-16.0) L 08/15/23 07:40 Hct 25.6 % (37.0-47.0) L 08/15/23 07:40 MCV 80.5 fL (80.0-100.0) 08/15/23 07:40 MCH 26.7 pg (25.0-34.0) 08/15/23 07:40 MCHC 33.2 g/dL (32.0-36.0) 08/15/23 07:40 RDW Std Deviation 45.2 fL (36.4-46.3) 08/15/23 07:40 RDW Coeff of Rivka 15.5 % (11.5-14.5) H 08/15/23 07:40 Plt Count 564 K/uL (130-400) H 08/15/23 07:40 MPV 9.2 fL (9.4-12.4) L 08/15/23 07:40 Immature Gran % (Auto) 1.1 % 08/14/23 10:49 Neut % (Auto) 86.1 % 08/14/23 10:49 Lymph % (Auto) 3.7 % 08/14/23 10:49 [place] % (Auto) 8.8 % 08/14/23 10:49 Eos % (Auto) 0.0 % 08/14/23 10:49 Baso % (Auto) 0.3 % 08/14/23 10:49 Neut # (Auto) 17.13 K/uL (1.40-6.50) H 08/14/23 10:49 Lymph # (Auto) 0.73 K/uL (1.20-3.40) L 08/14/23 10:49 [place] # (Auto) 1.76 K/uL (0.11-0.59) H 08/14/23 10:49 Eos # (Auto) 0.00 K/uL (0.00-0.50) 08/14/23 10:49 Baso # (Auto) 0.06 K/uL (0.00-0.20) 08/14/23 10:49 Immature Gran # (Auto) 0.22 K/uL (0.01-0.20) H 08/14/23 10:49 Sodium 125 mmol/L (136-145) L 08/15/23 07:40 Potassium 4.1 mmol/L (3.5-5.1) 08/15/23 07:40 Chloride 95 mmol/L (98-107) L 08/15/23 07:40 Carbon Dioxide 22 mmol/L (21-32) 08/15/23 07:40 Anion Gap 8 (3-11) 08/15/23 07:40 BUN 18 mg/dl (6-23) 08/15/23 07:40 Creatinine 0.65 mg/dl (0.6-1.2) 08/15/23 07:40 Est Cr Clr Drug Dosing 59.0 ml/min 08/15/23 07:40 Est GFR ( Amer) 98.6 ml/min 08/15/23 07:40 Est GFR (Non-Af Amer) 85.0 ml/min 08/15/23 07:40 BUN/Creatinine Ratio 27.7 (10-20) H 08/15/23 07:40 Glucose 97 mg/dl (70-99(Fasting)) 08/15/23 07:40 Osmolality 263 mOsm/kg (280-300) L 08/14/23 14:10 Lactate 1.7 mmol/L (0.4-2.0) 08/14/23 10:49 Calcium 8.3 mg/dl (8.6-10.3) L 08/15/23 07:40 Magnesium 1.8 mg/dl (1.7-2.4) 08/15/23 07:40 Total Bilirubin 0.5 mg/dl (0.2-1.0) 08/14/23 10:49 AST 27 U/L (13-39) 08/14/23 10:49 ALT 20 U/L (7-52) 08/14/23 10:49 Alkaline Phosphatase 96 U/L (34-104) 08/14/23 10:49 Total Protein 6.9 gm/dl (6.0-8.3) 08/14/23 10:49 Albumin 2.9 gm/dl (3.4-5.0) L 08/14/23 10:49 Globulin 4.0 gm/dl (2.5-4.0) 08/14/23 10:49 Albumin/Globulin Ratio 0.7 (0.9-2) L 08/14/23 10:49 Lipase < 3 U/L (11-82) L 08/14/23 10:49 Random Cortisol 24.58 mcg/dl 08/14/23 14:10 Urine Color Dark Yellow 08/14/23 11:55 Urine Appearance Clear (Clear) 08/14/23 11:55 Urine pH 5.5 (4.5-7.5) 08/14/23 11:55 Ur Specific [place] 1.022 (1.000-1.030) 08/14/23 11:55 Urine Protein 1+ (Negative) H 08/14/23 11:55 Urine Glucose (UA) Negative (Negative) 08/14/23 11:55 Urine Ketones Trace (Negative) H 08/14/23 11:55 Urine Blood Negative (Negative) 08/14/23 11:55 Urine Nitrite Negative (Negative) 08/14/23 11:55 Urine Bilirubin Negative (Negative) 08/14/23 11:55 Urine Urobilinogen Negative (Negative) 08/14/23 11:55 Ur Leukocyte Esterase Negative (Negative) 08/14/23 11:55 Urine WBC (Auto) 0 /hpf (0-5) 08/14/23 11:55 Urine RBC (Auto) 0-4 /hpf (0-4) 08/14/23 11:55 U Hyaline Cast (Auto) 0 /lpf (0-5) 08/14/23 11:55 U Epithel Cells (Auto) 0-5 /lpf (0-5) 08/14/23 11:55 Urine Bacteria (Auto) Negative (Negative) 08/14/23 11:55 Nasal Screen MRSA (PCR) Negative (Negative) 08/14/23 18:04 Impressions Chest X-Ray 08/14/23 10:19 XR chest 1V portable CLINICAL HISTORY: Weak. Lung cancer. COMPARISON STUDY: Chest radiograph and chest CT June 28, 2023. FINDINGS: Left upper lobe mass is again noted. There is mild interstitial thickening. Trace left pleural effusion is present. There is no pneumothorax. No consolidation is identified to suggest pneumonia. Cardiac size is normal. Mediastinal contours are stable. IMPRESSION: 1. Redemonstration of the left upper lobe mass. 2. Diffuse interstitial thickening. This may reflect mild pulmonary edema. 3. Trace left pleural effusion. ACT 112: Negative or not required by law. Electronically signed by: José Miguel Sanchez M.D. 08/14/2023 10:[address] 08/14/23 11:59 CT head/brain wo con CLINICAL HISTORY: 78 years-old Female with ams. Acutely altered mental status TECHNIQUE: Multiple axial CT images of the head were obtained without contrast. A dose lowering technique was utilized adhering to the principles of ALARA. CT DOSE: 625.8 mGy.cm COMPARISON: None. FINDINGS: No acute intracranial hemorrhage, midline shift, intracranial mass, hydrocephalus, territorial ischemia or abnormal extra-axial collection. Involutional changes with mild white matter hypodensities suggestive of chronic microvascular ischemic disease. The calvarium is intact. Prior bilateral lens repair. The paranasal sinuses, mastoid air cells, and middle ear cavities are clear. IMPRESSION: No acute intracranial abnormality. ACT 112: Negative or not required by law. The above report was generated using voice recognition software. It may contain grammatical, syntax or spelling errors. Electronically signed by: Daniel Sheikh M.D. 08/14/2023 12:30 PM
[2023-08-15] MEDS: MoRPHine SULFATE CR 15 MG TABCR PO SCH (19:56)
[2023-08-16] MEDS: CEFEPIME 2,000 MG in SYRINGE 0 ML IV SCH (04:51)
[2023-08-16] MEDS: METOPROLOL TARTRATE 25 MG TAB PO SCH ×2 (05:00→08:05)
[2023-08-16 06:58] LABS: Basophils # (auto) 0.05 K/uL (0.00-0.20); Basophils % (auto) 0.4 %; Hematocrit (blood only) 23.9 % (37.0-47.0); Hemoglobin 7.8 g/dl (12.0-16.0); Immature Granulocytes # (auto) 0.12 K/uL (0.01-0.20); Immature Granulocytes % (auto) 0.9 %; Lymphocytes # (auto) 1.23 K/uL (1.20-3.40); Lymphocytes % (auto) 8.9 %; Mean Corpuscular Hemoglobin 26.4 pg (25.0-34.0); Mean Corpuscular Hgb Conc 32.6 g/dL (32.0-36.0); Mean Corpuscular Volume 80.7 fL (80.0-100.0); Mean Platelet Volume 9.1 fL (9.4-12.4); Monocytes % (auto) 14.5 %; Neutrophils # (auto) 10.35 K/uL (1.40-6.50); Neutrophils % (auto) 75.3 %; Platelet Count 502 K/uL (130-400); RDW Coefficient of Variation 15.6 % (11.5-14.5); RDW Standard Deviation 45.1 fL (36.4-46.3); Red Blood Count 2.96 M/uL (4.20-5.40); White Blood Count 13.75 K/ul (4.8-10.8)
[2023-08-16 07:12] LABS: BUN Creatinine Ratio 23.2 (10-20); Calcium 8.1 mg/dl (8.6-10.3); Creatinine Clr Calc Pharmacy 55.6 ml/min; Est GFR (African American) 96.6 ml/min; Est GFR (Non-African American) 83.4 ml/min; Potassium 4.3 mmol/L (3.5-5.1)
[2023-08-16 07:25] LABS: RBC Morphology Unremarkable
[2023-08-16] MEDS: ALBUT/IPRATROP 3MG/0.5MG NEB 3 ML VIAL NEB SCH ×2 (07:25→19:23)
[2023-08-16] MEDS: SODIUM CHLOR 7% 4 ML NEB NEB SCH ×2 (07:25→19:23)
[2023-08-16 07:27] LABS: Thyroid Stimulating Hormone 1.218 uIu/ml (0.300-4.500)
[2023-08-16] MEDS: oxyCODONE HCL IR 5 MG TAB (IMMEDIATE RELEASE) PO PRN ×2 (07:45→11:51)
[2023-08-16] MEDS: APIXABAN 5 MG TABLET PO SCH ×2 (08:05→20:26)
[2023-08-16] MEDS ORDERED: MAGNESIUM HYDROXIDE SUSP 30 ML UDC PO ONE (08:35)
[2023-08-16] MEDS ORDERED: ALBUT/IPRATROP 3MG/0.5MG NEB 3 ML VIAL NEB SCH (09:00)
[2023-08-16] MEDS ORDERED: UREA (UREA-NA) 15 GM PACK PO SCH (09:00)
--- NOTE | 2023-08-16 09:06 | Cardiology Progress Note ---
Date of Service August 16, 2023 Assessment & Plan Admission and Anticipated Discharge Date Admission Date: August 14, 2023 Supervising Physician Co-Signing Physician Notes Pt seen and examined with [facility] staff. Concur with observations and plans 78 yo woman presenting with weakness and confusion. Consult for: afib with RVR * On admission - significant hyponatremia - Na+ 120 * + Hx of non-small cell Lung CA - chest wall extension - local extension * No known pericardial effusion * Currently undergoing chemotherapy * ECHO performed * LVEF 65-70% - LA size mildly enlarged - Mild MR, Moderate TR, IVC normal in size * No pericardial effusion * K+ 4.6 - on presentation * Mag 1.6 - on presentation * TSH - Pending * Hx of PE in 02/2023 - on DOAC (ongoing) - afib at the time of presentation * Pt was started on IV Lopressor * Marginal systemic BPs. Plan: * Pt has reverted to NSR * Please check 12 lead this AM to confirm officially * Continue Apixiban 5 mg po BID (no dose adjustments) * HTN noted * STOP Lopressor * Start Toprol XL 100 mg po per day * Consider Lisinopril 5 mg po per day if SBP > 130 mmHg after Toprol administered * Consider PO Magnesium supplementation * Concern that afib may be secondary to local invasive tumor burden * Hyponatremia being corrected - persists - IVC was normal in size * TSH - 1.2 * Please arrange for follow up with [facility] * Please call back with any additional questions Geovanni Veliz Subjective Events overnight: Reverted to NSR Subjective: Constipated - receiving senna No other complaints Review of Systems Review of Systems: All systems reviewed & are unremarkable except as noted in HPI & below Physical Exam Physical Exam: Thin woman in NAD JVP 12 cm H20 S1S2 2/6 systolic murmur Crackles - left lung field +BS No LE edema Warm and perfusing Results & Data Vital Signs (Past 12 Hours) Vital Signs Temp Pulse Pulse Resp BP Pulse Ox O2 Del Method 08/16/23 07:38 37.0 C 74 19 158/70 H 94 Room Air 08/16/23 07:26 73 16 94 Room Air 08/16/23 05:00 70 132/70 08/16/23 02:42 36.8 C 72 16 110/65 94 Room Air 08/15/23 21:58 73 08/15/23 22:20 36.8 C 78 18 97/71 L 92 Room Air 08/15/23 22:13 Room Air Laboratory Results CBC 08/16/23 Range/Units 06:32 WBC 13.75 H (4.8-10.8) K/ul RBC 2.96 L (4.20-5.40) M/uL Hgb 7.8 L (12.0-16.0) g/dl Hct 23.9 L (37.0-47.0) % Plt Count 502 H (130-400) K/uL Neut # (Auto) 10.35 H (1.40-6.50) K/uL Lymph # (Auto) 1.23 (1.20-3.40) K/uL [place] # (Auto) 2.00 H (0.11-0.59) K/uL Eos # (Auto) 0.00 (0.00-0.50) K/uL Baso # (Auto) 0.05 (0.00-0.20) K/uL Comprehensive Metabolic Panel 08/16/23 Range/Units 06:32 Sodium 122 L (136-145) mmol/L Potassium 4.3 (3.5-5.1) mmol/L Chloride 93 L (98-107) mmol/L Carbon Dioxide 22 (21-32) mmol/L BUN 16 (6-23) mg/dl Creatinine 0.69 (0.6-1.2) mg/dl Glucose 92 (70-99(Fasting)) mg/dl Calcium 8.1 L (8.6-10.3) mg/dl Intake and Output 08/15/23 08/16/23 08/16/23 22:59 06:59 14:59 Intake Total 534.167 / 1805.834 Output Total 2200 / 2200 Balance -1665.833 / -394.166 Intake: IV 384.167 / 1275.834 Magnesium Sulfate / D5w 1 gm In 384.167 / 384.167 100 ml @ 50 mls/hr IV Q2H JEFF Rx#:[id number] Oral 150 / 530 Output: Urine 2200 / 2200 Other: # Unmeasured Voids 2 Weight 54.3 kg Medications Administered Current Inpatient Medications Acetaminophen (Acetaminophen 325 Mg Tab) 650 mg PO Q4H PRN PRN Reason: Pain or Fever Stop: 09/13/23 13:36 Albuterol (Albut/Ipratrop 3mg/0.5mg Neb 3 Ml Vial) 3 ml NEB BIDR JEFF; Protocol Stop: 09/14/23 08:59 Last Admin: 08/16/23 07:25 Dose: 3 ml Apixaban (Apixaban 5 Mg Tablet) 5 mg PO BID JEFF Stop: 09/13/23 20:59 Last Admin: 08/16/23 08:05 Dose: 5 mg Doxycycline Hyclate (Doxycycline Hyclate 100 Mg Cap) 100 mg PO BID JEFF Stop: 08/23/23 08:59 Last Admin: 08/16/23 09:53 Dose: 100 mg Ceftriaxone Sodium 2,000 mg/ (Dextrose) 50 mls @ 100 mls/hr IV Q24H JEFF; P rotocol Stop: 08/23/23 08:59 Last Admin: 08/16/23 09:52 Dose: 100 mls/hr Metoprolol Tartrate (Metoprolol Tartrate 25 Mg Tab) 25 mg PO Q6H JEFF Stop: 09/14/23 08:59 Last Admin: 08/16/23 08:05 Dose: 25 mg Morphine Sulfate (Morphine Sulfate Cr 15 Mg Tabcr) 15 mg PO HS JEFF Stop: 08/28/23 20:59 Last Admin: 08/15/23 19:56 Dose: 15 mg Oxycodone HCl (Oxycodone Hcl Ir 5 Mg Tab (Immediate Release)) 5 mg PO Q4H PRN PRN Reason: pain Stop: 08/28/23 13:42 Last Admin: 08/16/23 07:45 Dose: 5 mg Polyethylene Glycol (Polyethylene (Miralax) 17 Gm Pack) 17 gm PO DAILY JEFF Stop: 09/15/23 08:59 Last Admin: 08/16/23 09:53 Dose: 17 gm Sodium Chloride (Sodium Chlor 7% 4 Ml Neb) 4 ml NEB BIDR JEFF Stop: 09/14/23 08:39 Last Admin: 08/16/23 07:25 Dose: 4 ml Urea (Urea (Urea-Na) 15 Gm Pack) 15 gm PO BID JEFF Stop: 09/15/23 08:59 Last Admin: 08/16/23 09:10 Dose: 15 gm
[2023-08-16] MEDS: cefTRIAXone SODIUM 2,000 MG in DEXTROSE 5 % MINI-B 50 ML IV SCH (09:52)
[2023-08-16] MEDS: POLYETHYLENE (MIRALAX) 17 GM PACK PO SCH (09:53)
[2023-08-16] MEDS: DOXYCYCLINE HYCLATE 100 MG CAP PO SCH ×2 (09:53→20:26)
--- NOTE | 2023-08-16 11:05 | Hospitalist Progress Note ---
Date of Service August 16, 2023 Assessment & Plan (1) Hyponatremia: (2) Acute hypotension: Plan: Patient presenting from home for evaluation of generalized weakness and confusion. History of non-small cell lung cancer, currently on chemotherapy initiated 07/24 with associated poor p.o. intake. In the ED, labs show Na+ 120 Random cortisol of 24.5. 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 Likely exacerbated by poor oral intake Labs reviewed today; sodium is down to 122 today. Continue on fluid restriction of 1200 cc Add oral urea 15 mg twice daily We will get nephrology's input as well. She does not have a history of hypertension; may benefit from salt tablets due to increased availability than oral urea. We will follow-up on recommendation. (3) Atrial fibrillation with RVR: Plan: On the morning of August 15, 2023; patient had atrial fibrillation with RVR with ventricular rate in the 160s to 170s EKG ordered and personally reviewed; atrial fibrillation with ventricular rate of 124 Echocardiogram shows EF of 65 to 70% with mild concentric left ventricular hypertrophy. Converted to sinus rhythm within 24 hours Started on metoprolol succinate 100 mg once a day as per recommendation by cardiology Already on Eliquis 5 mg twice daily (4) Leukocytosis: Plan: Possible postobstructive pneumonia WBC 19 K on presentation; down trended Blood culture no growth in 24 hours Continue antibiotics for possible postobstructive pneumonia. Plan to treat for 7 days Follow-up on blood culture Airway clearance therapy (5) Anemia: Plan: Hgb 8.7 Chronic, stable, in the setting of underlying malignancy and chemotherapy No indication for transfusion at this time Monitor CBC (6) Non-small cell cancer of left lung: Plan: Currently on Tecentriq, carboplatin, etoposide - last cycle 07/24-07/[address] Bray (7) History of pulmonary embolism: Plan: On Eliquis, continue DVT PROPHYLAXIS On Eliquis Discussed with patient's daughter Erin over the phone. Answered questions/queries. Updated about the treatment plan. She wanted me to get palliative care on board as well to know more about hospice care. She reports that she is not considering hospice care at the moment but would like to know more information. Also, palliative care to assist with pain control. Time spent evaluating patient, direct bedside care, chart review, placing orders, interpretation of diagnostic studies, discussion with consultants, patient, and family members, as well as other required patient management activities is 60 minutes Please note the above document was generated using voice recognition software. It may contain grammatical, syntax or spelling errors. Any formal questions or concerns about the content, text or information contained within the body of this dictation should be directly addressed to the provider for clarification Admission and Anticipated Discharge Date Admission Date: August 14, 2023 Subjective Patient seen and examined at bedside. She is awake, alert, oriented to self, place and time. She reports chest pain on deep breathing on left side. She continues to remain in sinus rhythm Review of Systems Review of Systems: All systems reviewed & are unremarkable except as noted in Subjective Physical Exam Physical Exam: Constitutional: WD/WN, vitals as above, NAD, sitting up in bed, pleasant, conversing easily Respiratory: Decreased air entry left upper and midlung [place]. Cardiovascular: Regular, no murmur, no edema Vessels: no JVD or carotid bruit Chest: normal inspection of chest Abdomen: normal bowel sounds, soft, nontender, no hepatosplenomegaly Musculoskeletal: no cyanosis or clubbing, extremities motor strength 5/5 Skin: no rashes, warm and dry normal turgor Neurologic: Grossly intact Psychiatric: Alert oriented to self and place. Results & Data Results & Data Vital Signs (Past 12 Hours) Vital Signs Temp Pulse Resp BP Pulse Ox O2 Del Method 08/16/23 09:18 Room Air 08/16/23 07:38 37.0 C 74 19 158/70 H 94 Room Air 08/16/23 07:26 73 16 94 Room Air 08/16/23 05:00 70 132/70 08/16/23 02:42 36.8 C 72 16 110/65 94 Room Air Laboratory Results Laboratory Results WBC 13.75 K/ul (4.8-10.8) H 08/16/23 06:32 RBC 2.96 M/uL (4.20-5.40) L 08/16/23 06:32 Hgb 7.8 g/dl (12.0-16.0) L 08/16/23 06:32 Hct 23.9 % (37.0-47.0) L 08/16/23 06:32 MCV 80.7 fL (80.0-100.0) 08/16/23 06:32 MCH 26.4 pg (25.0-34.0) 08/16/23 06:32 MCHC 32.6 g/dL (32.0-36.0) 08/16/23 06:32 RDW Std Deviation 45.1 fL (36.4-46.3) 08/16/23 06:32 RDW Coeff of [place] 15.6 % (11.5-14.5) H 08/16/23 06:32 Plt Count 502 K/uL (130-400) H 08/16/23 06:32 MPV 9.1 fL (9.4-12.4) L 08/16/23 06:32 Immature Gran % (Auto) 0.9 % 08/16/23 06:32 Neut % (Auto) 75.3 % 08/16/23 06:32 Lymph % (Auto) 8.9 % 08/16/23 06:32 [place] % (Auto) 14.5 % 08/16/23 06:32 Eos % (Auto) 0.0 % 08/16/23 06:32 Baso % (Auto) 0.4 % 08/16/23 06:32 Neut # (Auto) 10.35 K/uL (1.40-6.50) H 08/16/23 06:32 Lymph # (Auto) 1.23 K/uL (1.20-3.40) 08/16/23 06:32 [place] # (Auto) 2.00 K/uL (0.11-0.59) H 08/16/23 06:32 Eos # (Auto) 0.00 K/uL (0.00-0.50) 08/16/23 06:32 Baso # (Auto) 0.05 K/uL (0.00-0.20) 08/16/23 06:32 Immature Gran # (Auto) 0.12 K/uL (0.01-0.20) 08/16/23 06:32 RBC Morphology Unremarkable 08/16/23 06:32 Sodium 122 mmol/L (136-145) L 08/16/23 06:32 Potassium 4.3 mmol/L (3.5-5.1) 08/16/23 06:32 Chloride 93 mmol/L (98-107) L 08/16/23 06:32 Carbon Dioxide 22 mmol/L (21-32) 08/16/23 06:32 Anion Gap 7 (3-11) 08/16/23 06:32 BUN 16 mg/dl (6-23) 08/16/23 06:32 Creatinine 0.69 mg/dl (0.6-1.2) 08/16/23 06:32 Est Cr Clr Drug Dosing 55.6 ml/min 08/16/23 06:32 Est GFR ( Amer) 96.6 ml/min 08/16/23 06:32 Est GFR (Non-Af Amer) 83.4 ml/min 08/16/23 06:32 BUN/Creatinine Ratio 23.2 (10-20) H 08/16/23 06:32 Glucose 92 mg/dl (70-99(Fasting)) 08/16/23 06:32 Osmolality 263 mOsm/kg (280-300) L 08/14/23 14:10 Lactate 1.7 mmol/L (0.4-2.0) 08/14/23 10:49 Calcium 8.1 mg/dl (8.6-10.3) L 08/16/23 06:32 Magnesium 1.8 mg/dl (1.7-2.4) 08/15/23 07:40 Total Bilirubin 0.5 mg/dl (0.2-1.0) 08/14/23 10:49 AST 27 U/L (13-39) 08/14/23 10:49 ALT 20 U/L (7-52) 08/14/23 10:49 Alkaline Phosphatase 96 U/L (34-104) 08/14/23 10:49 Total Protein 6.9 gm/dl (6.0-8.3) 08/14/23 10:49 Albumin 2.9 gm/dl (3.4-5.0) L 08/14/23 10:49 Globulin 4.0 gm/dl (2.5-4.0) 08/14/23 10:49 Albumin/Globulin Ratio 0.7 (0.9-2) L 08/14/23 10:49 Lipase < 3 U/L (11-82) L 08/14/23 10:49 TSH 1.218 uIu/ml (0.300-4.500) 08/16/23 06:32 Random Cortisol 24.58 mcg/dl 08/14/23 14:10 Urine Color Dark Yellow 08/14/23 11:55 Urine Appearance Clear (Clear) 08/14/23 11:55 Urine pH 5.5 (4.5-7.5) 08/14/23 11:55 Ur Specific [place] 1.022 (1.000-1.030) 08/14/23 11:55 Urine Protein 1+ (Negative) H 08/14/23 11:55 Urine Glucose (UA) Negative (Negative) 08/14/23 11:55 Urine Ketones Trace (Negative) H 08/14/23 11:55 Urine Blood Negative (Negative) 08/14/23 11:55 Urine Nitrite Negative (Negative) 08/14/23 11:55 Urine Bilirubin Negative (Negative) 08/14/23 11:55 Urine Urobilinogen Negative (Negative) 08/14/23 11:55 Ur Leukocyte Esterase Negative (Negative) 08/14/23 11:55 Urine WBC (Auto) 0 /hpf (0-5) 08/14/23 11:55 Urine RBC (Auto) 0-4 /hpf (0-4) 08/14/23 11:55 U Hyaline Cast (Auto) 0 /lpf (0-5) 08/14/23 11:55 U Epithel Cells (Auto) 0-5 /lpf (0-5) 08/14/23 11:55 Urine Bacteria (Auto) Negative (Negative) 08/14/23 11:55 Urine Osmolality 688 mOsm/kg (500-800) 08/15/23 Unknown Urine Sodium 45 mmol/L 08/15/23 Unknown Urine Potassium 56.9 mmol/L 08/15/23 Unknown Urine Chloride 86 mmol/L 08/15/23 Unknown Nasal Screen MRSA (PCR) Negative (Negative) 08/14/23 18:04 Impressions Chest X-Ray 08/14/23 10:19 XR chest 1V portable CLINICAL HISTORY: Weak. Lung cancer. COMPARISON STUDY: Chest radiograph and chest CT June 28, 2023. FINDINGS: Left upper lobe mass is again noted. There is mild interstitial thickening. Trace left pleural effusion is present. There is no pneumothorax. No consolidation is identified to suggest pneumonia. Cardiac size is normal. Mediastinal contours are stable. IMPRESSION: 1. Redemonstration of the left upper lobe mass. 2. Diffuse interstitial thickening. This may reflect mild pulmonary edema. 3. Trace left pleural effusion. ACT 112: Negative or not required by law. Electronically signed by: José Miguel Sanchez M.D. 08/14/2023 10:[address] 08/14/23 11:59 CT head/brain wo con CLINICAL HISTORY: 78 years-old Female with ams. Acutely altered mental status TECHNIQUE: Multiple axial CT images of the head were obtained without contrast. A dose lowering technique was utilized adhering to the principles of ALARA. CT DOSE: 625.8 mGy.cm COMPARISON: None. FINDINGS: No acute intracranial hemorrhage, midline shift, intracranial mass, hydrocephalus, territorial ischemia or abnormal extra-axial collection. Involutional changes with mild white matter hypodensities suggestive of chronic microvascular ischemic disease. The calvarium is intact. Prior bilateral lens repair. The paranasal sinuses, mastoid air cells, and middle ear cavities are clear. IMPRESSION: No acute intracranial abnormality. ACT 112: Negative or not required by law. The above report was generated using voice recognition software. It may contain grammatical, syntax or spelling errors. Electronically signed by: Daniel Sheikh M.D. 08/14/2023 12:30 PM
--- NOTE | 2023-08-16 11:17 | Nephrology Consultation ---
Date of Consultation August 16, 2023 Assessment & Plan (1) Hyponatremia: She appears euvolemic. urine Osm 688 and urine na 45 and has Non Small Cell Lung cancer. 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 however does not eat much solid food and still drinks relatively high fluid for her food intake. However unlikely that we will be able to get Na really normal given the Cancer situation. For now will do combined NS and iv lasix. without lasix wont be able to bring down the urine osm which we need to get serum Na up. NS at 75/hr and lasix 30 iv q8h. Check BMP q12. For now also continue urea at higher dose of 30 bid. Control nausea really well as that is a powerful trigger for ADH release and makes Na lower. (2) Atrial fibrillation with RVR: per cards. (3) Non-small cell cancer of left lung: Ongoing chemo through Dr Bray. 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 History of Present Illness Reason for Consultation: Hyponatremia Attending Physician: Ian Perkins MD History of Present Illness 78/F with pulmonary embolism on Eliquis, non-small cell lung cancer on chemotherapy currently on Tecentriq, carboplatin, etoposide - last cycle 07/24- 07/26 presented to the ED for evaluation of weakness and confusion. Patient recently started chemotherapy for lung cancer on 07/24. Daughter states that the week following chemo, patient was very weak and had a very poor appetite.She was also more confused which is unusual for her. She also seemed to be getting weaker. Patient has been eating minimally but was still drinking good bit. Denies nausea, vomiting, diarrhea. No fevers or chills. Denies chest pain or shortness of breath. No lightheadedness, dizziness, diaphoresis, syncopal events. Denies urinary symptoms. In the ED, patient is borderline hypotensive with systolic BPs in the 90s. Labs show Na+ 120, Mg +1.6. No obvious source of infection at this time. Patient was given IVF and IV cefepime. Currently no iv fluid but Na really has not changed much. After 2 days still 122. recent Blood work showed na in the 120's. urine Osm 685 and urine na 45 consistent with SIADH ROS---Feels weak, lot of nausea and weakness and ongoing wt loss. Denies Diarrhea and abd pain or major pain anywhere. No SOB and no edema. 12 systems reviewed and negative Allergies Allergy/AdvReac Type Severity Reaction Status Date / Time No Known Allergies Allergy Verified 06/28/23 16:24 Home Medications Medication Instructions Recorded Confirmed Type apixaban 5 mg tablet (Eliquis) 5 mg PO BID 06/28/23 08/14/23 History famotidine 20 mg tablet 20 mg PO BID PRN Gi Upset 06/28/23 08/14/23 History oxycodone 5 mg tablet 5 mg PO Q4H PRN pain #20 tabs 06/30/23 08/14/23 Rx lidocaine 5 % topical patch 1 patch transdermal HS PRN Pain 08/14/23 08/14/23 History morphine 15 mg tablet,extended 15 mg PO HS 08/14/23 08/14/23 History release ondansetron HCl 8 mg tablet 8 mg PO Q8H PRN n/v 08/14/23 08/14/23 History prochlorperazine maleate 10 mg 10 mg PO Q6H PRN n/v 08/14/23 08/14/23 History tablet sennosides 8.6 mg tablet (Senokot) 8.6 mg PO QAM PRN const 08/14/23 08/14/23 History Patient History Medical History History of pulmonary embolism Non-small cell cancer of left lung Surgical History History of hip surgery History of parotidectomy Social History Smoking Status: Former smoker Tobacco Type: Cigarettes Second Hand Exposure: No; Do You Dip or Chew Tobacco: No; Tobacco Cessation Education Requested by Patient: No Hx Alcohol Use: Yes Alcohol type: wine Hx Substance Use: No Preferred Language: Fijian Communication Ability: Effective Service Advisor Required: No Beliefs That Will Affect Care: None Current Living Situation: Family Current Living Situation Comment: currently lives with daughter in 2 story house Other Information That Helps Us Care for You: No Feels Safe at Home: Yes Assistive Devices: None Physical Exam Physical Exam: Physical Exam Constitutional:L + ill appearing an d + thin; no acute distress Eyes: weak and frail ENMT: MM moist Respiratory: normal respiratory effort; no respir atory distress Au scultation: + dimi nished lung sounds Cardiovascular:L Rate/Rhythm: regul ar rate and regula r rhythm Extremi ties: no edema Gastrointestinal ( Abdomen): soft, nontender, Musculoskeletal: no cyanosis or clu bbing, extremities motor strength 5/ 5 Skin: no rashes, warm an d dry Neurologic: PERRL, EOMI, accom modation nl, no fa ce palsy, no dysar thria Psychiatric: Orientation: alert , oriented to pers on and oriented to time; + not orien karyn to place (awar e she is in hospit al but states "Gei zheng") Insight: + limited insight Results & Data Vital Signs (Past 12 Hours) Vital Signs Temp Pulse Resp BP Pulse Ox O2 Del Method 08/16/23 09:18 Room Air 08/16/23 07:38 37.0 C 74 19 158/70 H 94 Room Air 08/16/23 07:26 73 16 94 Room Air 08/16/23 05:00 70 132/70 08/16/23 02:42 36.8 C 72 16 110/65 94 Room Air Laboratory Results reviewed in detail
[2023-08-16] MEDS: METOPROLOL SUCC 50MG EXT REL TAB PO SCH (11:51)
[2023-08-16] MEDS: MAGNESIUM OXIDE 400 MG TAB PO SCH ×2 (11:59→20:27)
[2023-08-16] MEDS: SODIUM CHLORIDE 0.9% 1,000 ML IV SCH ×2 (12:00→23:51)
[2023-08-16] MEDS ORDERED: METOPROLOL SUCC 50MG EXT REL TAB PO SCH (12:00)
[2023-08-16] MEDS: FUROSEMIDE 40 MG/4 ML VIAL IV SCH ×2 (12:00→20:30)
[2023-08-16] MEDS: ACETAMINOPHEN 325 MG TAB PO PRN (15:01)
[2023-08-16] MEDS: ONDANSETRON INJ 2 MG/ML 2 ML VIAL IV PRN (15:19)
--- NOTE | 2023-08-16 16:51 | Communication Note ---
Date of Service: August 16, 2023 Palliative Med Brief Note pt seen/examined Full consult note to follow Asked to see pt to assist with cancer pain and sx mgt She would like oxy IR more on a schedule and no change to MS Contin at bedtime. She also want sto know if more chemo is planned. I suggested and she agreed to Oxy IR 5mg PO Q8h and continue q4h prn if needed, no change to MS Contin. I suspect using MS Contin on a Q12h or q8h schedule will ultimately bring more relief, but she does not want this right now. I sent message to Dr Bray seeking further advice re cancer rx plan, he advised she will need to be re evaluated after discharge so no active chemo plans right now but it is not off the table for future. Full note to follow. Thank you for allowing us to participate in the ongoing care of this patient. Please don't hesitate to call or page with any additional concerns. Dr. Akanksha Lozano DNP Director, Palliative Care
--- NOTE | 2023-08-16 16:54 | Electrocardiogram Report ---
Test Reason : Blood Pressure : / mmHG Vent. Rate : 068 BPM Atrial Rate : 068 BPM P-R Int : 160 ms QRS Dur : 090 ms QT Int : 408 ms P-R-T Axes : 057 030 047 degrees QTc Int : 433 ms Normal sinus rhythm Possible Left atrial enlargement Borderline ECG When compared with ECG of 15-AUG-2023 08:05, Sinus rhythm has replaced Atrial fibrillation Vent. rate has decreased BY 56 BPM Confirmed by Facundo Mccann ([id number]) on 08/16/2023 4:54:01 PM Referred By: REFERRED SELF Confirmed By:Facundo Mccann
[2023-08-16] MEDS: oxyCODONE HCL IR 5 MG TAB (IMMEDIATE RELEASE) PO SCH (17:07)
[2023-08-16] MEDS ORDERED: SODIUM CHLOR 7% 4 ML NEB NEB SCH (19:00)
[2023-08-16] MEDS: MoRPHine SULFATE CR 15 MG TABCR PO SCH (20:22)
[2023-08-16] MEDS: UREA (UREA-NA) 15 GM PACK PO SCH (20:28)
--- NOTE | 2023-08-16 21:08 | Palliative Care Consultation ---
Date of Consultation August 16, 2023 Assessment & Plan (1) Cancer related pain: Current pain regimen includes oxycodone immediate release 5 mg every 4 hours, Tylenol 500 every 6 hours, MS Contin 15 mg at bedtime. Although her oxycodone is ordered on an as-needed basis, she is asking for and receiving it every 4 hours [id number]. She is keeping track of all her doses and documents the time that she last had as she watches the clock to determine when her next dose is due. A total of 6 doses of oxycodone every day at 5 mg is an equivalent of 30 mg of oxycodone daily along with MS Contin 15 mg. 30 mg of oral oxycodone is equivalent to 60 mg of oral morphine which in addition to her 15 at bedtime is a total of 75 oral morphine equivalents per day with suboptimal relief of her cancer related pain and dyspnea. She would like some scheduled dosing of her oxycodone but she does not wish to have the dose changed at this time. We negotiated a trial of oxy 5 mg every 8 hours on a schedule and she can continue to take 5 mg every 4 hours as needed for breakthrough pain with hold parameters of hold for somnolence or respiratory rate less than 14/document respiratory rate with each dose administration. I have not made any changes to her MS Contin. However, given that she is using a total of 75 mg of oral morphine equivalents a day, I believe a scheduled dose of MS Contin in a more [id number] manner would give her better lasting relief of both the cancer pain and the dyspnea. Adjusting for cross tolerance, the starting dose for MS Contin would be 30 mg every 12 hours with the same hold parameters. Oxy IR 5 mg can be given every 4 hours as needed for breakthrough pain with again the same hold parameters. She was reluctant to make any other changes apart from adding a scheduled Oxy IR dose so for now we will hold off and see how she does over the next 1 to 2 days. Orders have been written for the scheduled oxycodone. I have updated nursing. (2) Advanced care planning/counseling discussion: Katherine and Melissa had a [id number] advance care planning discussion for approximately 25 minutes at the bedside. She tells me she wants to know what the plan is for further cancer directed therapy. She states she has not heard any updates from her oncologist about this due to being in the hospital. She also wants to have her daughter updated once there is more information from oncology. She asked me to contact Dr. Bray to determine what the next plan for chemotherapy would be. Then she asked me to update her daughter once that has been clarified. She tells me she does not want to have a prolonged stay in the hospital. She wishes to return home and then follow-up in outpatient oncology clinic for ongoing cancer directed care. As far as CODE STATUS, she reaffirms her DNR/DNI status. While she is seeking cancer directed therapies, she does not wish to have any resuscitative, aggressive or life support interventions in the event of a natural . She acknowledges that she would not come off the ventilator if she were to be placed on 1 and does not wish to have artificial support will prolong dependent levels of care. It is noted that her daughter is a nurse at one of the local custodial's and has been an active medical surrogate and emotional support for patient. (3) Palliative care by specialist: Met with pt/family. Provided overview of Palliative Medicine, a subspecialty that provides specialized medical care for people living with a serious illness by offering a focus on quality of life. Palliative Medicine is often conflated with hospice: I advised patient/family that Palliative and hospice can be partners but we are not the same. It is important to understand the difference so that we may be informed, and not afraid. Palliative Medicine works to improve QOL through reduction of symptom burden/more control over their illness, for both the patient and family. Palliative medicine clinicians are board certified, specially-trained and another member of the patient's medical care team. We often provide an extra layer of support because our care is based on the needs of the patient, not the prognosis; as such, it's appropriate at any age/advancing stage of a serious illness and can be provided along with curative treatment. Palliative Medicine clinicians are also trained in advanced communication methodologies, to facilitate complex discussions about advanced illness planning, which are needed to help assure that the treatment choices match the patient's goals, aka delivering Goal Concordant care. Finally, we discussed that hospice is a visiting nurse service that focuses on care d elivered at the very end of life for patients with terminal illness, with life expectancy less than 6 month. There is strong evidence supporting the initiation of Palliative Care into the management of this patient with advanced met lung cancer; palliative care, when provided alongside oncologic care, leads to improved QOL, fewer depressive symptoms, better prognosis understanding and longer median survival barrie when given the overall poor prognosis and QOL issues at hand. (Pearl et al. (2010). Early palliative care for patients with metastatic fyf-ghhmf-wdbs lung cancer. [place] J of Med 363(1), 733-742. Doi: 10.1056/[id number].) We discussed that cancer patients experience significant symptom and psychosocial burden for which the early integration of supportive oncology with palliative medicine (early findings from the research of Pearl and Jesús) help address a growing need to manage patients comprehensively, with an emphasis on symptom control, nutritional and psychosocial support, and pharmaceutical review. Palliative care consultation in patients with advanced cancer is not only associated with an improvement in the quality of oncology care, but also a reduction in downstream healthcare utilization. In Wilfredo et al 2017, when the automatic palliative medicine consult was triggered by specific oncology criteri a, 30-day readmission rates and use of chemotherapy after discharge declined, whereas hospice referrals and uptake of support services post-discharge increased. Patients with advanced cancer admitted to an acute care hospital often have short life expectancies and high morbidity - for these patients, the integration of palliative care has improved symptom burden, reduced patient and caregiver distress, increased referral to hospice, and improved outcomes. Plan * I have moved patient to his scheduled oxycodone regimen of 5 mg every 8 hours and we will continue using her breakthrough dosing of Oxy IR 5 mg every 4 hours as needed with a hold parameter of hold for somnolence or respiratory rate less than 14/min. * No change to bedtime MS Contin. * Likely would do better with long-term relief if we were to utilize a long- acting medicine on a more formal scheduled basis. She does not wish to make any changes to this regimen at this time but we will see how she does over the next day or 2. * I did send a message to Dr. Bray to discuss the timing and plan for further cancer directed therapy. He noted that she would need to be reevaluated in clinic following this admission to determine overall performance status and ability to tolerate further chemotherapy Thank you for allowing us to participate in the ongoing care of this patient. Please don't hesitate to call or page with any additional concerns. Dr. Akanksha Lozano DNP Director, Palliative Care History of Present Illness Reason for Consultation: Pain and symptom management, discussion about goals. Attending Physician: Ian Perkins MD History of Present Illness Katherine is a frail-appearing 78-year-old female who was admitted August 14, 2023 with hyponatremia, hypotension, generalized weakness attributed to be due to complications of non-small cell lung cancer for which she is under the care of Dr. Bray at [facility] oncology. Chemotherapy is noted to have been initiated on 07/24/2023. She is cachectic, malnutrition and dehydrated. She reports very poor oral intake and very severe cancer related pain. She is currently on the regimen of MS Contin 15 mg at bedtime, Oxy IR 5 mg every 4 hours as needed which she is taking on a every 4 hour schedule, and then Tylenol every 6 hours as needed which she is requesting every 6 hours as well. In the emergency department her sodium was noted to be 120 which after a liter of IV fluid improved to 123. She was then started on a normal saline and fusion at 125 mL/h with serial BMPs being monitored. Hypotension was noted with a systolic in the 90s likely due to her hypovolemia and a random cortisol was noted to be 24.5 +Afib with RVR, cardiology consulted. She did not have any obvious source of infection of the blood cell noted to be 19,000 She was given an empiric dose of IV cefepime in the emergency department. Anemia was noted but felt to be chronic in the setting of her underlying malignancy and ongoing chemotherapy. Oncology history as follows: Non-small cell cancer of the left lung; her non-small cell lung cancer of the left lung has chest wall extension that is noted to be local with no known pericardial effusion. Currently on Tecentriq, carboplatin, etoposide. Last cycle 07/22 to 07/26/2023. She is followed by Dr. Bray at the [facility] oncology office. Her cancer course was complicated by a pulmonary embolism for which she has been started on Eliquis. She was seen by cardiology and her recent echocardiogram demonstrates a left ventricular ejection fraction of 65 to 70%, mildly enlarged left atrium, mild MR, moderate TR, no pericardial effusion. She was started on Lopressor IV for rate control. Her rhythm reverted to normal sinus and she has been started on oral Toprol-XL 100 mg daily. Allergies Allergy/AdvReac Type Severity Reaction Status Date / Time No Known Allergies Allergy Verified 06/28/23 16:24 Home Medications Medication Instructions Recorded Confirmed Type apixaban 5 mg tablet (Eliquis) 5 mg PO BID 06/28/23 08/14/23 History famotidine 20 mg tablet 20 mg PO BID PRN Gi Upset 06/28/23 08/14/23 History oxycodone 5 mg tablet 5 mg PO Q4H PRN pain #20 tabs 06/30/23 08/14/23 Rx lidocaine 5 % topical patch 1 patch transdermal HS PRN Pain 08/14/23 08/14/23 History morphine 15 mg tablet,extended 15 mg PO HS 08/14/23 08/14/23 History release ondansetron HCl 8 mg tablet 8 mg PO Q8H PRN n/v 08/14/23 08/14/23 History prochlorperazine maleate 10 mg 10 mg PO Q6H PRN n/v 08/14/23 08/14/23 History tablet sennosides 8.6 mg tablet (Senokot) 8.6 mg PO QAM PRN const 08/14/23 08/14/23 History Patient History Medical History History of pulmonary embolism Non-small cell cancer of left lung Surgical History History of hip surgery History of parotidectomy Social History Smoking Status: Former smoker Tobacco Type: Cigarettes Second Hand Exposure: No; Do You Dip or Chew Tobacco: No; Tobacco Cessation Education Requested by Patient: No Hx Alcohol Use: Yes Alcohol type: wine Hx Substance Use: No Preferred Language: Spanish Communication Ability: Effective Centrifugal Machine Tender Required: No Beliefs That Will Affect Care: None Current Living Situation: Family Current Living Situation Comment: currently lives with daughter in 2 story house Other Information That Helps Us Care for You: No Feels Safe at Home: Yes Assistive Devices: None Review of Systems Review of Systems: All systems reviewed & are unremarkable except as noted in Subjective Physical Exam Physical Exam: Katherine is a very thin, frail and cachectic appearing female, resting in bed at the time of my visit. She is awake, alert and oriented x3. She demonstrates some anxiety and is frustrated at having to be in the hospital. There is bitemporal wasting noted. Dentition is fair. Her neck is supple with extended vessels noted. Heart tones are S1-S2 and there is a systolic murmur noted mid field. She has crackles in her left lung with a few faint rhonchi throughout. Right breath sounds are diminished in a generalized way. Her abdomen is scaphoid. Her bowel sounds are noted to be present. Her extremities are thin and there is no peripheral edema noted. Her skin is thin but warm. There is no clubbing or cyanosis noted. Results & Data Vital Signs (Past 12 Hours) Vital Signs Temp Pulse Pulse Resp BP Pulse Ox O2 Del Method 08/16/23 19:54 59 L 16 132/70 100 Nebulizer 08/16/23 19:26 69 16 95 Room Air 08/16/23 16:00 73 08/16/23 15:47 36.8 C 64 18 134/76 95 Room Air 08/16/23 12:14 36.7 C 67 18 122/64 98 Room Air 08/16/23 09:18 Room Air Laboratory Results Data reviewed, see HPI Diagnostic Findings Data reviewed, see HPI PG Care Time/CCT Total # of Minutes Spent Total Time Spent: 110 Total Time Spent with Patient: Total time spent is greater than 50% in coordination of care (as documented) at patient's floor/unit and/or counseling patient: I spent 110 minutes overall addressing this case: 20 in medical data review/discussion with referring provider(s) and/or preparation for the visit including OSH and EMR LInk data review 45 in direct interaction with the patient 25 Advance Care Planning/Goals of Care discussions as detailed above in note (must be >16min) 10 in subsequent review and synthesis of assessment and plan 10 n communicating with other providers regarding the patient's case: nursing, primary team, OSH oncology Prolonged Care Time Prolonged Care Time: Yes Advanced Care Planning 47124 Advanced Care Planning 30 [place] [address] IN/OBS CONSULT LVL 5,80M Patient Type New History Comprehensive Exam Comprehensive Medical Decision Making High Complexity Diagnoses Cancer related pain G89.3 Advanced care planning/counseling discussion Z71.89 Palliative care by specialist Z51.5 Additional Codes Advanced Care Planning - 01908 Advanced Care Planning 30 Min: 18651 Advanced Care Planning 30 Min ([id number]) Prolonged Care Time - Prolonged Care Time: Yes ([id number])
[2023-08-17] MEDS: oxyCODONE HCL IR 5 MG TAB (IMMEDIATE RELEASE) PO SCH ×3 (00:31→16:36)
[2023-08-17] MEDS: oxyCODONE HCL IR 5 MG TAB (IMMEDIATE RELEASE) PO PRN (02:49)
[2023-08-17] MEDS: FUROSEMIDE 40 MG/4 ML VIAL IV SCH ×3 (03:35→19:41)
[2023-08-17] MEDS: SODIUM CHLOR 7% 4 ML NEB NEB SCH ×2 (07:07→19:30)
[2023-08-17] MEDS: ALBUT/IPRATROP 3MG/0.5MG NEB 3 ML VIAL NEB SCH ×2 (07:07→19:30)
[2023-08-17 07:52] LABS: Basophils # (auto) 0.06 K/uL (0.00-0.20); Basophils % (auto) 0.5 %; Hematocrit (blood only) 26.7 % (37.0-47.0); Hemoglobin 8.8 g/dl (12.0-16.0); Immature Granulocytes # (auto) 0.13 K/uL (0.01-0.20); Immature Granulocytes % (auto) 1.2 %; Lymphocytes # (auto) 1.32 K/uL (1.20-3.40); Lymphocytes % (auto) 11.8 %; Mean Corpuscular Hemoglobin 26.1 pg (25.0-34.0); Mean Corpuscular Volume 79.2 fL (80.0-100.0); Mean Platelet Volume 9.3 fL (9.4-12.4); Monocytes # (auto) 1.85 K/uL (0.11-0.59); Monocytes % (auto) 16.6 %; Neutrophils # (auto) 7.79 K/uL (1.40-6.50); Neutrophils % (auto) 69.9 %; Platelet Count 630 K/uL (130-400); RDW Coefficient of Variation 15.4 % (11.5-14.5); RDW Standard Deviation 44.4 fL (36.4-46.3); Red Blood Count 3.37 M/uL (4.20-5.40); White Blood Count 11.15 K/ul (4.8-10.8)
[2023-08-17] MEDS: UREA (UREA-NA) 15 GM PACK PO SCH ×2 (08:05→20:55)
[2023-08-17] MEDS: MAGNESIUM OXIDE 400 MG TAB PO SCH ×2 (08:05→20:57)
[2023-08-17] MEDS: APIXABAN 5 MG TABLET PO SCH ×2 (08:05→20:58)
[2023-08-17] MEDS: cefTRIAXone SODIUM 2,000 MG in DEXTROSE 5 % MINI-B 50 ML IV SCH (08:05)
[2023-08-17] MEDS: DOXYCYCLINE HYCLATE 100 MG CAP PO SCH ×2 (08:06→20:57)
[2023-08-17] MEDS: METOPROLOL SUCC 50MG EXT REL TAB PO SCH (08:06)
[2023-08-17] MEDS: POLYETHYLENE (MIRALAX) 17 GM PACK PO SCH (08:06)
[2023-08-17 08:20] LABS: BUN Creatinine Ratio 70.1 (10-20); Calcium 8.5 mg/dl (8.6-10.3); Creatinine Clr Calc Pharmacy 44.1 ml/min; Est GFR (Non-African American) 63.8 ml/min; Potassium 3.4 mmol/L (3.5-5.1)
--- NOTE | 2023-08-17 08:29 | Nephrology Progress Note ---
Date of Service August 17, 2023 Assessment & Plan Admission and Anticipated Discharge Date Admission Date: August 14, 2023 Subjective Assessment & Plan (1) Hyponatremia: She appears euvolemic. urine Osm 688 and urine na 45 and has Non Small Cell Lung cancer. 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 however does not eat much solid food and still drinks relatively high fluid for her food intake. so basically has combination of 3 diagnosis. However unlikely that we will be able to get Na really normal given the Cancer situation. For now will do combined NS and iv lasix. without lasix wont be able to bring down the urine osm which we need to get serum Na up. NS at 75/hr and lasix 30 iv q8h. Check BMP q12 for comfort.. For now also continue urea at higher dose of 30 bid. Control nausea really well as that is a powerful trigger for ADH release and makes Na lower. Pushing iv fluid only and water intake for " dehydration" will make na go lower in her case so have to be careful for outpt also. will recommend about salttab/lasix at the time of discharge. Continue FFR 1200 ml per day. (2) Atrial fibrillation with RVR: per cards. (3) Non-small cell cancer of left lung: Ongoing chemo through Dr Bray. 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 reviewed Palliative med note. S--has ongoing pain and needing lot of pain meds. Poor appetite. Na slow to go up. Physical Exam Physical Exam: frail and thin. No resp distress Neck supple, no jvd S1S2, 2/6 systolic murmur Crackles - left lung field +BS No LE edema Results & Data Vital Signs (Past 12 Hours) Vital Signs Temp Pulse Pulse Resp BP Pulse Ox O2 Del Method 08/17/23 07:15 65 08/17/23 07:08 65 12 94 Room Air 08/17/23 04:20 61 08/17/23 02:53 35.7 C L 64 16 117/62 96 Room Air 08/16/23 22:51 66 16 131/54 L 93 Room Air 08/16/23 22:55 35.9 C L 08/16/23 21:00 Room Air FiO2 08/17/23 07:15 08/17/23 07:08 21 08/17/23 04:20 08/17/23 02:53 08/16/23 22:51 08/16/23 22:55 08/16/23 21:00
[2023-08-17] MEDS ORDERED: POTASSIUM CHLORIDE CRTAB 20 MEQ TABCR PO STA (08:41)
--- NOTE | 2023-08-17 12:17 | Communication Note ---
Date of Service: August 17, 2023 Palliative Medicine Note I spoke with pt daughter Erin this morning as pt requested. I provided Erin with the update of my visit with pt yesterday as well as my recommendations, update from oncology and Erin advised me pt does not do well with MS Contin more than the 15mg at bedtime, she does "just fine with the oxy every 4 hr, that's what our outpatient palliative care provider said we can do" and did not want changes. I advised Erin of the scheduled q8h oxy 5mg dose which was accommodated per pt request and she replied that was fine. I advised her pt asked me to update Dr Bray, ask him about what future rx plans for cancer may be and then update Erin, I advised Erin re Dr Bray's feedback - pt will be re evaluated after discharge and then he will determine feasibility for more cancer rx and Erin replied that it was not his decision but the patient's decision if she is going to take more chemo. I did try to gently explain that I was referring to an evaluation to see if more chemo could be safely offered but of course patients always have the right to refuse or accept those offers of therapy as offered. Overall our conversation was brief, approx 15min and Erin felt they had no acute IP pall med needs and no further follow up needed. With her permission, I passed along the update and reccs to their OP pal med provider at [facility] as well. It is unclear to me at this time if pt or daughter have a clear understanding of her prognosis i.e., best case vs worst case scenarios but dtr was very clear in this conversation that there was nothing further she felt was needed to be discussed and she reiterated they will follow up with outpatient pall med at [facility] as needed. I will sign off. TS 20min No charge submitted. Thank you for allowing us to participate in the ongoing care of this patient. Please don't hesitate to call or page with any additional concerns. Dr. Akanksha Lozano DNP Director, Palliative Care
[2023-08-17] MEDS: SODIUM CHLORIDE 0.9% 1,000 ML IV SCH (12:51)
--- NOTE | 2023-08-17 13:44 | Hospitalist Progress Note ---
Date of Service August 17, 2023 Assessment & Plan (1) Hyponatremia: Plan: Patient presenting from home for evaluation of generalized weakness and confusion. History of non-small cell lung cancer, currently on chemotherapy initiated 07/24 with associated poor p.o. intake. Sodium level is 120 at presentation,Random cortisol of 24.5. 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 Likely exacerbated by poor oral intake Continue on fluid restriction of 1200 cc Appreciate nephrology input and recommendation She has been getting normal saline infusion and intravenous furosemide to correct sodium level on top up urea 30 g twice daily Her sodium is 124 as of 08/17/2023-we will monitor Will have nocturnal pulse oximetry today and to a 2 steps O2 saturation test prior to discharge (2) Acute hypotension: Plan: Noted to be hypotension at presentation Patient seems to be stable at 115/63 (3) Atrial fibrillation with RVR: Plan: On the morning of August 15, 2023; patient had atrial fibrillation with RVR with ventricular rate in the 160s to 170s EKG ordered and personally reviewed; atrial fibrillation with ventricular rate of 124 Echocardiogram shows EF of 65 to 70% with mild concentric left ventricular hypertrophy. Converted to sinus rhythm within 24 hours Started on metoprolol succinate 100 mg once a day as per recommendation by cardiology Already on Eliquis 5 mg twice daily Appreciate cardiology input and recommendation (4) Leukocytosis: Plan: Possible postobstructive pneumonia WBC 19 K on presentation; down trended Blood culture no growth in 24 hours Continue antibiotics for possible postobstructive pneumonia. Plan to treat for 7 days Follow-up on blood culture-has been negative White count is improving and the patient remains afebrile (5) Anemia: Plan: Hgb 8.7 Chronic, stable, in the setting of underlying malignancy and chemotherapy No indication for transfusion at this time Monitor CBC-hemoglobin remains stable at 8.8 (6) Non-small cell cancer of left lung: Plan: Currently on Tecentriq, carboplatin, etoposide - last cycle 07/24-07/[address] Bray-Will need to reevaluate following this admission in the clinic to determine further chemotherapy Appreciate palliative care input and recommendation (7) History of pulmonary embolism: Plan: On Eliquis, continue DVT PROPHYLAXIS On Eliquis Discussed with patient's daughter Erin over the phone. Answered questions/queries. Updated about the treatment plan. She wanted me to get palliative care on board as well to know more about hospice care. She reports that she is not considering hospice care at the moment but would like to know more information. Also, palliative care to assist with pain control. Time spent evaluating patient, direct bedside care, chart review, placing orders, interpretation of diagnostic studies, discussion with consultants, patient, and family members, as well as other required patient management activities is 60 minutes Please note the above document was generated using voice recognition software. It may contain grammatical, syntax or spelling errors. Any formal questions or concerns about the content, text or information contained within the body of this dictation should be directly addressed to the provider for clarification Admission and Anticipated Discharge Date Admission Date: August 14, 2023 Subjective 08/17/2023 The patient was seen and examined in telemetry unit in presence of the family members She complains to have generalized weakness and shortness of breath with exertion Denies any significant pain, fever and or chills and no nausea and or vomiting Review of Systems Review of Systems: All systems reviewed and are unremarkable except as noted below Physical Exam Physical Exam: Lying in bed with minimal distress due to shortness of breath Constitutional: + ill appearing and average body habitus Eyes: PERRL, conjunctivae normal, anicteric sclerae ENMT: external ear and nose normal, oropharynx normal Neck: trachea midline, no thyromegaly Respiratory: no respiratory distress Auscultation: + diminished lung sounds (On the left side) Cardiovascular: Rate/Rhythm: + irregularly irregular; not tachycardic Heart Sounds: normal S1 and normal S2; no murmur Extremities: + edema (Bilateral leg edema of 1+) Gastrointestinal (Abdomen): Inspection/Auscultation: normal bowel sounds; abdomen not distended Percussion/Palpation: abdomen soft; abdomen nontender Musculoskeletal: No acute arthritis involving any of the joint Neurologic: Alert, awake and oriented x3. Very weak and lethargy. Moves all extremities equally Lymphatic: no cervical or axillary lymphadenopathy Results & Data Results & Data Vital Signs (Past 12 Hours) Vital Signs Temp Pulse Pulse Resp BP Pulse Ox O2 Del Method 08/17/23 12:04 36.7 C 65 19 115/63 91 Room Air 08/17/23 09:40 Room Air 08/17/23 08:30 36.9 C 72 18 117/65 95 Room Air 08/17/23 07:15 65 08/17/23 07:08 65 12 94 Room Air 08/17/23 04:20 61 08/17/23 02:53 35.7 C L 64 16 117/62 96 Room Air FiO2 08/17/23 12:04 08/17/23 09:40 08/17/23 08:30 08/17/23 07:15 08/17/23 07:08 21 08/17/23 04:20 08/17/23 02:53 Laboratory Results Short CBC 08/17/23 Range/Units 07:12 WBC 11.15 H (4.8-10.8) K/ul Hgb 8.8 L (12.0-16.0) g/dl Hct 26.7 L (37.0-47.0) % Plt Count 630 H (130-400) K/uL BMP 08/17/23 07:12 Sodium 124 L Potassium 3.4 L D Chloride 90 L Carbon Dioxide 26 BUN 61 H D Creatinine 0.87 Glucose 97 Calcium 8.5 L Medications Administered Current Inpatient Medications Acetaminophen (Acetaminophen 325 Mg Tab) 650 mg PO Q4H PRN PRN Reason: Pain or Fever Stop: 09/13/23 13:36 Last Admin: 08/16/23 15:01 Dose: 650 mg Albuterol (Albut/Ipratrop 3mg/0.5mg Neb 3 Ml Vial) 3 ml NEB BIDR [facility]; Protocol Stop: 09/14/23 08:59 Last Admin: 08/17/23 07:07 Dose: 3 ml Apixaban (Apixaban 5 Mg Tablet) 5 mg PO BID [facility] Stop: 09/13/23 20:59 Last Admin: 08/17/23 08:05 Dose: 5 mg Doxycycline Hyclate (Doxycycline Hyclate 100 Mg Cap) 100 mg PO BID [facility] Stop: 08/23/23 08:59 Last Admin: 08/17/23 08:06 Dose: 100 mg Furosemide (Furosemide 40 Mg/4 Ml Vial) 30 mg IV Q8H [facility] Stop: 09/15/23 11:59 Last Admin: 08/17/23 12:52 Dose: 30 mg Ceftriaxone Sodium 2,000 mg/ (Dextrose) 50 mls @ 100 mls/hr IV Q24H [facility]; Protocol Stop: 08/23/23 08:59 Last Infusion: 08/17/23 08:41 Dose: Infused Sodium Chloride (Nss) 1,000 mls @ 80 mls/hr IV .[id number] [facility] Stop: 09/15/23 11:44 Last Admin: 08/17/23 12:51 Dose: 80 mls/hr Magnesium Oxide (Magnesium Oxide 400 Mg Tab) 400 mg PO BID [facility] Stop: 09/15/23 10:59 Last Admin: 08/17/23 08:05 Dose: 400 mg Metoprolol Succinate (Metoprolol Succ 50mg Ext Rel Tab) 100 mg PO QAM [facility] Stop: 09/15/23 10:29 Last Admin: 08/17/23 08:06 Dose: 100 mg Morphine Sulfate (Morphine Sulfate Cr 15 Mg Tabcr) 15 mg PO HS [facility] Stop: 08/28/23 20:59 Last Admin: 08/16/23 20:22 Dose: 15 mg Ondansetron HCl (Ondansetron Inj 2 Mg/Ml 2 Ml Vial) 4 mg IV Q6H PRN PRN Reason: Nausea And Vomiting Stop: 09/15/23 14:59 Last Admin: 08/16/23 15:19 Dose: 4 mg Oxycodone HCl (Oxycodone Hcl Ir 5 Mg Tab (Immediate Release)) 5 mg PO Q4H PRN PRN Reason: pain Stop: 08/28/23 13:42 Last Admin: 08/17/23 02:49 Dose: 5 mg Oxycodone HCl (Oxycodone Hcl Ir 5 Mg Tab (Immediate Release)) 5 mg PO Q8H [facility] Stop: 08/30/23 16:44 Last Admin: 08/17/23 08:07 Dose: 5 mg Polyethylene Glycol (Polyethylene (Miralax) 17 Gm Pack) 17 gm PO DAILY [facility] Stop: 09/15/23 08:59 Last Admin: 08/17/23 08:06 Dose: 17 gm Sodium Chloride (Sodium Chlor 7% 4 Ml Neb) 4 ml NEB BIDR [facility] Stop: 09/14/23 08:39 Last Admin: 08/17/23 07:07 Dose: 4 ml Urea (Urea (Urea-Na) 15 Gm Pack) 30 gm PO BID [facility] Stop: 09/15/23 20:59 Last Admin: 08/17/23 08:05 Dose: 30 gm
[2023-08-17] MEDS: MoRPHine SULFATE CR 15 MG TABCR PO SCH (21:00)
[2023-08-18] MEDS: oxyCODONE HCL IR 5 MG TAB (IMMEDIATE RELEASE) PO SCH ×2 (00:25→08:31)
[2023-08-18] MEDS: SODIUM CHLORIDE 0.9% 1,000 ML IV SCH (00:26)
[2023-08-18] MEDS ORDERED: ALBUMIN 25% 12.5 GM/50 ML VIAL IV ONE (05:01)
[2023-08-18] MEDS: FUROSEMIDE 40 MG/4 ML VIAL IV SCH ×2 (05:05→11:49)
[2023-08-18] MEDS: ALBUT/IPRATROP 3MG/0.5MG NEB 3 ML VIAL NEB SCH (07:15)
[2023-08-18] MEDS: SODIUM CHLOR 7% 4 ML NEB NEB SCH (07:15)
[2023-08-18] MEDS: APIXABAN 5 MG TABLET PO SCH (08:32)
[2023-08-18] MEDS: DOXYCYCLINE HYCLATE 100 MG CAP PO SCH (08:33)
[2023-08-18] MEDS: METOPROLOL SUCC 50MG EXT REL TAB PO SCH (08:36)
[2023-08-18] MEDS: MAGNESIUM OXIDE 400 MG TAB PO SCH (08:36)
[2023-08-18] MEDS: UREA (UREA-NA) 15 GM PACK PO SCH (08:37)
[2023-08-18] MEDS: POLYETHYLENE (MIRALAX) 17 GM PACK PO SCH (08:38)
[2023-08-18] MEDS: cefTRIAXone SODIUM 2,000 MG in DEXTROSE 5 % MINI-B 50 ML IV SCH (08:43)
[2023-08-18 10:06] LABS: Calcium 8.7 mg/dl (8.6-10.3); Creatinine Clr Calc Pharmacy 44.9 ml/min; Est GFR (African American) 76.1 ml/min; Est GFR (Non-African American) 65.6 ml/min; Potassium 3.2 mmol/L (3.5-5.1)
[2023-08-18] MEDS ORDERED: POTASSIUM CHLORIDE CRTAB 20 MEQ TABCR PO STA (10:29)
--- NOTE | 2023-08-18 10:32 | Nephrology Progress Note ---
Date of Service August 18, 2023 Assessment & Plan Admission and Anticipated Discharge Date Admission Date: August 14, 2023 Subjective Assessment & Plan (1) Hyponatremia: She appears euvolemic. urine Osm 688 and urine na 45 and has Non Small Cell Lung cancer. 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 however does not eat much solid food and still drinks relatively high fluid for her food intake. so basically has combination of 3 diagnosis. na 132 today. for discharge Can try Salt tab 1 gm bid and lasix 20 bid and Kcl 20 meq daily. Control nausea really well as that is a powerful trigger for ADH release and makes Na lower. Pushing iv fluid only and water intake for " dehydration" will make na go lower in her case so have to be careful for outpt also. Continue FFR 1200 ml per day. (2) Atrial fibrillation with RVR: per cards. (3) Non-small cell cancer of left lung: Ongoing chemo through Dr Bray. 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 reviewed Palliative med note. S--has ongoing pain and needing lot of pain meds. Poor appetite. Na is up to 132 now. Physical Exam Physical Exam: frail and thin. No resp distress Neck supple, no jvd S1S2, 2/6 systolic murmur Crackles - left lung field +BSNo LE edema Results & Data Vital Signs (Past 12 Hours) Vital Signs Temp Pulse Pulse Resp BP Pulse Ox Pulse Ox 08/18/23 08:00 79 19 115/55 L 08/18/23 07:17 71 18 94 08/18/23 06:10 70 93 08/18/23 03:19 36.5 C 70 20 94/60 L 94 08/18/23 02:10 67 97 08/17/23 23:12 36.4 C L 76 20 116/61 98 08/17/23 22:50 O2 Del Method O2 Del Method 08/18/23 08:00 08/18/23 07:17 Room Air 08/18/23 06:10 Room Air 08/18/23 03:19 Room Air 08/18/23 02:10 Room Air 08/17/23 23:12 Room Air 08/17/23 22:50 Room Air
[2023-08-18] MEDS: ACETAMINOPHEN 325 MG TAB PO PRN (11:52)
[2023-08-18] MEDS: ONDANSETRON INJ 2 MG/ML 2 ML VIAL IV PRN (11:57)
[2023-08-18 14:55] LABS: BUN Creatinine Ratio 109.4 (10-20); Calcium 9.2 mg/dl (8.6-10.3); Creatinine Clr Calc Pharmacy 44.9 ml/min; Est GFR (African American) 76.1 ml/min; Est GFR (Non-African American) 65.6 ml/min; Potassium 3.8 mmol/L (3.5-5.1)
--- NOTE | 2023-08-18 16:16 | Hospitalist Progress Note ---
Date of Service August 17, 2023 Assessment & Plan (1) Hyponatremia: Plan: Patient presenting from home for evaluation of generalized weakness and confusion. History of non-small cell lung cancer, currently on chemotherapy initiated 07/24 with associated poor p.o. intake. Sodium level is 120 at presentation,Random cortisol of 24.5. 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 Likely exacerbated by poor oral intake Continue on fluid restriction of 1200 cc Appreciate nephrology input and recommendation She has been getting normal saline infusion and intravenous furosemide to correct sodium level on top up urea 30 g twice daily Her sodium is 124 as of 08/17/2023-we will monitor Will have nocturnal pulse oximetry today and to a 2 steps O2 saturation test prior to discharge Sodium level was noted to be 132 this morning and repeat testing came back 130 Discussed with the dumper She will be discharged home on oral salt tablets, Lasix and potassium supplement with fluid restriction Discussed with the daughter in detail and the level make good low Advised to give appointment with PCP and oncologist (2) Acute hypotension: Plan: Noted to be hypotension at presentation Patient seems to be stable at 115/63 (3) Atrial fibrillation with RVR: Plan: On the morning of August 15, 2023; patient had atrial fibrillation with RVR with ventricular rate in the 160s to 170s EKG ordered and personally reviewed; atrial fibrillation with ventricular rate of 124 Echocardiogram shows EF of 65 to 70% with mild concentric left ventricular hypertrophy. Converted to sinus rhythm within 24 hours Started on metoprolol succinate 100 mg once a day as per recommendation by cardiology Already on Eliquis 5 mg twice daily Appreciate cardiology input and recommendation Rate remains controlled on current dose of metoprolol and controlled blood pressure (4) Leukocytosis: Plan: Possible postobstructive pneumonia WBC 19 K on presentation; down trended Blood culture no growth in 24 hours Continue antibiotics for possible postobstructive pneumonia. Plan to treat for 7 days Follow-up on blood culture-has been negative White count is improving and the patient remains afebrile (5) Anemia: Plan: Hgb 8.7 Chronic, stable, in the setting of underlying malignancy and chemotherapy No indication for transfusion at this time Monitor CBC-hemoglobin remains stable at 8.8 (6) Non-small cell cancer of left lung: Plan: Currently on Tecentriq, carboplatin, etoposide - last cycle 07/24-07/[address] Bray-Will need to reevaluate following this admission in the clinic to determine further chemotherapy Appreciate palliative care input and recommendation For further management will depend on oncology evaluation She will require 2 L of oxygen at night and 2 L with activity during daytime (7) History of pulmonary embolism: Plan: On Eliquis, continue DVT PROPHYLAXIS On Eliquis Discussed with patient's daughter Erin over the phone. Answered questions/queries. Updated about the treatment plan. She wanted me to get palliative care on board as well to know more about hospice care. She reports that she is not considering hospice care at the moment but would like to know more information. Also, palliative care to assist with pain control. Discussed with the daughter in detail Admission and Anticipated Discharge Date Admission Date: August 14, 2023 Subjective 08/17/2023 The patient was seen and examined in telemetry unit in presence of the family members She complains to have generalized weakness and shortness of breath with exertion Denies any significant pain, fever and or chills and no nausea and or vomiting 08/18/2023 The patient was seen and examined in telemetry unit She has been feeling a little better today Denies any pain and no shortness of breath at rest Denies any abdominal pain, nausea and or vomiting Review of Systems Review of Systems: All systems reviewed and are unremarkable except as noted below Physical Exam Physical Exam: Lying in bed with minimal distress due to shortness of breath Constitutional: + ill appearing and average body habitus Eyes: PERRL, conjunctivae normal, anicteric sclerae ENMT: external ear and nose normal, oropharynx normal Neck: trachea midline, no thyromegaly Respiratory: no respiratory distress Auscultation: + diminished lung sounds (On the left side) Cardiovascular: Rate/Rhythm: + irregularly irregular; not tachycardic Heart Sounds: normal S1 and normal S2; no murmur Extremities: + edema (Bilateral leg edema of 1+) Gastrointestinal (Abdomen): Inspection/Auscultation: normal bowel sounds; abdomen not distended Percussion/Palpation: abdomen soft; abdomen nontender Musculoskeletal: No acute arthritis involving any of the joint Neurologic: Alert, awake and oriented x3. Generally weak Lymphatic: no cervical or axillary lymphadenopathy Results & Data Results & Data Vital Signs (Past 12 Hours) Vital Signs Temp Pulse Pulse Resp BP Pulse Ox O2 Del Method 08/17/23 12:04 36.7 C 65 19 115/63 91 Room Air 08/17/23 09:40 Room Air 08/17/23 08:30 36.9 C 72 18 117/65 95 Room Air 08/17/23 07:15 65 08/17/23 07:08 65 12 94 Room Air 08/17/23 04:20 61 08/17/23 02:53 35.7 C L 64 16 117/62 96 Room Air FiO2 08/17/23 12:04 08/17/23 09:40 08/17/23 08:30 08/17/23 07:15 08/17/23 07:08 21 08/17/23 04:20 08/17/23 02:53 Laboratory Results BMP 08/18/23 08/18/23 09:27 14:18 Sodium 132 L 130 L Potassium 3.2 L 3.8 Chloride 94 L 94 L Carbon Dioxide 29 30 BUN 85 H D 93 H Creatinine 0.85 0.85 Glucose 133 H 109 H Calcium 8.7 9.2 Medications Administered Current Inpatient Medications Acetaminophen (Acetaminophen 325 Mg Tab) 650 mg PO Q4H PRN PRN Reason: Pain or Fever Stop: 09/13/23 13:36 Last Admin: 08/18/23 11:52 Dose: 650 mg Albuterol (Albut/Ipratrop 3mg/0.5mg Neb 3 Ml Vial) 3 ml NEB BIDR [facility]; Protocol Stop: 09/14/23 08:59 Last Admin: 08/18/23 07:15 Dose: 3 ml Apixaban (Apixaban 5 Mg Tablet) 5 mg PO BID [facility] Stop: 09/13/23 20:59 Last Admin: 08/18/23 08:32 Dose: 5 mg Doxycycline Hyclate (Doxycycline Hyclate 100 Mg Cap) 100 mg PO BID [facility] Stop: 08/23/23 08:59 Last Admin: 08/18/23 08:33 Dose: 100 mg Furosemide (Furosemide 40 Mg/4 Ml Vial) 30 mg IV Q8H [facility] Stop: 09/15/23 11:59 Last Admin: 08/18/23 11:49 Dose: 30 mg Ceftriaxone Sodium 2,000 mg/ (Dextrose) 50 mls @ 100 mls/hr IV Q24H [facility]; Protocol Stop: 08/23/23 08:59 Last Infusion: 08/18/23 09:52 Dose: Infused Sodium Chloride (Nss) 1,000 mls @ 80 mls/hr IV .[id number] [facility] Stop: 09/15/23 11:44 Last Admin: 08/18/23 00:26 Dose: 80 mls/hr Magnesium Oxide (Magnesium Oxide 400 Mg Tab) 400 mg PO BID [facility] Stop: 09/15/23 10:59 Last Admin: 08/18/23 08:36 Dose: 400 mg Metoprolol Succinate (Metoprolol Succ 50mg Ext Rel Tab) 100 mg PO QAM [facility] Stop: 09/15/23 10:29 Last Admin: 08/18/23 08:36 Dose: 100 mg Morphine Sulfate (Morphine Sulfate Cr 15 Mg Tabcr) 15 mg PO HS [facility] Stop: 08/28/23 20:59 Last Admin: 08/17/23 21:00 Dose: 15 mg Ondansetron HCl (Ondansetron Inj 2 Mg/Ml 2 Ml Vial) 4 mg IV Q6H PRN PRN Reason: Nausea And Vomiting Stop: 09/15/23 14:59 Last Admin: 08/18/23 11:57 Dose: 4 mg Oxycodone HCl (Oxycodone Hcl Ir 5 Mg Tab (Immediate Release)) 5 mg PO Q4H PRN PRN Reason: pain Stop: 08/28/23 13:42 Last Admin: 08/17/23 02:49 Dose: 5 mg Oxycodone HCl (Oxycodone Hcl Ir 5 Mg Tab (Immediate Release)) 5 mg PO Q8H [facility] Stop: 08/30/23 16:44 Last Admin: 08/18/23 08:31 Dose: 5 mg Polyethylene Glycol (Polyethylene (Miralax) 17 Gm Pack) 17 gm PO DAILY [facility] Stop: 09/15/23 08:59 Last Admin: 08/18/23 08:38 Dose: Not Given Sodium Chloride (Sodium Chlor 7% 4 Ml Neb) 4 ml NEB BIDR [facility] Stop: 09/14/23 08:39 Last Admin: 08/18/23 07:15 Dose: 4 ml Urea (Urea (Urea-Na) 15 Gm Pack) 30 gm PO BID [facility] Stop: 09/15/23 20:59 Last Admin: 08/18/23 08:37 Dose: 30 gm
--- NOTE | 2023-09-11 09:51 | Discharge Summary ---
Date of Service September 11, 2023 Delayed DS of 08/18/2023 Admission HPI Per Admitting Provider 78-year-old female PMH pulmonary embolism anticoagulated on Eliquis, non-small cell lung cancer on chemotherapy currently on Tecentriq, carboplatin, etoposide - last cycle 07/24-07/26, and other problems to below who presents to the ED for evaluation of weakness and confusion. History is somewhat limited from the patient, history obtained from daughter over the telephone and review of outp atient PCP and oncology records. Patient recently started chemotherapy for lung cancer on 07/24. Daughter states that the week following chemo, patient was very weak and had a very poor appetite. Patient had some leftover prednisone at home from her previous prescription that she took for a few days last week. She was advised to stop this per recommendations from oncologist. Daughter states that yesterday, she noted her mother to be confused which is unusual for her. She also seemed to be getting weaker. Symptoms continued today and patient was evaluated in the ED. Patient has been eating and drinking however minimally. Denies nausea, vomiting, diarrhea. No fevers or chills. Denies chest pain or shortness of breath. No lightheadedness, dizziness, diaphoresis, syncopal events. Denies urinary symptoms. In the ED, patient is borderline hypotensive with systolic BPs in the 90s. Labs show WBC 19.9 K, Na+ 120, Mg +1.6. No obvious source of infection at this time. Patient was given IVF and IV cefepime. Admission Exam Per Admitting Provider Constitutional: + ill appearing and + thin; no acute distress Eyes: PERRL, conjunctivae normal, anicteric sclerae ENMT: external ear and nose normal, oropharynx normal Respiratory: normal respiratory effort; no respiratory distress Auscultation: + diminished lung sounds Cardiovascular: Rate/Rhythm: regular rate and regular rhythm Vessels: normal peripheral pulses Extremities: no edema Gastrointestinal (Abdomen): normal bowel sounds, soft, nontender, no hepatosplenomegaly Musculoskeletal: no cyanosis or clubbing, extremities motor strength 5/5 Skin: no rashes, warm and dry Neurologic: PERRL, EOMI, accommodation nl, no face palsy, no dysarthria Psychiatric: Orientation: alert, oriented to person and oriented to time; + not oriented to place (aware she is in hospital but states "[facility]") Insight: + limited insight Principal Diagnosis 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, atrial fibrillation with RVR, non-small c ell lung cancer Discharge Exam Lying in bed with minimal distress due to shortness of breath Constitutional + ill appearing and average body habitus Eyes PERRL, conjunctivae normal, anicteric sclerae ENMT external ear and nose normal, oropharynx normal Neck trachea midline, no thyromegaly Respiratory no respiratory distress Auscultation: + diminished lung sounds (On the left side) Cardiovascular Rate/Rhythm: + irregularly irregular; not tachycardic Heart Sounds: normal S1 and normal S2; no murmur Extremities: + edema (Bilateral leg edema of 1+) Gastrointestinal (Abdomen) Inspection/Auscultation: normal bowel sounds; abdomen not distended Percussion/Palpation: abdomen soft; abdomen nontender Lymphatic no cervical or axillary lymphadenopathy Discharge Data Allergies Allergy/AdvReac Type Severity Reaction Status Date / Time No Known Allergies Allergy Verified 06/28/23 16:24 Consultations 08/14/23 12:19 ED Decision to Admit Stat 08/15/23 08:11 Consult Cardiology Routine 08/16/23 07:27 Consult Nephrology Routine 08/16/23 08:31 Consult Palliative Care Routine Ordered Studies 08/14/23 11:59 CT head/brain wo con Stat Hospital Course (1) Hyponatremia: Patient presenting from home for evaluation of generalized weakness and confusion. History of non-small cell lung cancer, currently on chemotherapy initiated 07/24 with associated poor p.o. intake. Sodium level is 120 at presentation,Random cortisol of 24.5. 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 Likely exacerbated by poor oral intake Continue on fluid restriction of 1200 cc Appreciate nephrology input and recommendation She has been getting normal saline infusion and intravenous furosemide to correct sodium level on top up urea 30 g twice daily Her sodium is 124 as of 08/17/2023-we will monitor Will have nocturnal pulse oximetry today and to a 2 steps O2 saturation test prior to discharge Sodium level was noted to be 132 this morning and repeat testing came back 130 Discussed with the main line assembler She will be discharged home on oral salt tablets, Lasix and potassium supplement with fluid restriction Discussed with the daughter in detail and the level make good low Advised to give appointment with PCP and oncologist (2) Acute hypotension: Noted to be hypotension at presentation Patient seems to be stable at 115/63 (3) Atrial fibrillation with RVR: On the morning of August 15, 2023; patient had atrial fibrillation with RVR with ventricular rate in the 160s to 170s EKG ordered and personally reviewed; atrial fibrillation with ventricular rate of 124 Echocardiogram shows EF of 65 to 70% with mild concentric left ventricular hypertrophy. Converted to sinus rhythm within 24 hours Started on metoprolol succinate 100 mg once a day as per recommendation by cardiology Already on Eliquis 5 mg twice daily Appreciate cardiology input and recommendation Rate remains controlled on current dose of metoprolol and controlled blood pressure (4) Leukocytosis: Possible postobstructive pneumonia WBC 19 K on presentation; down trended Blood culture no growth in 24 hours Continue antibiotics for possible postobstructive pneumonia. Plan to treat for 7 days Follow-up on blood culture-has been negative White count is improving and the patient remains afebrile (5) Anemia: Hgb 8.7 Chronic, stable, in the setting of underlying malignancy and chemotherapy No indication for transfusion at this time Monitor CBC-hemoglobin remains stable at 8.8 (6) Non-small cell cancer of left lung: Currently on Tecentriq, carboplatin, etoposide - last cycle 07/24-07/[address] Bray-Will need to reevaluate following this admission in the clinic to determine further chemotherapy Appreciate palliative care input and recommendation For further management will depend on oncology evaluation She will require 2 L of oxygen at night and 2 L with activity during daytime (7) History of pulmonary embolism: On Eliquis, continue DVT PROPHYLAXIS On Eliquis Discussed with patient's daughter Erin over the phone. Answered questions/queries. Updated about the treatment plan. She wanted me to get palliative care on board as well to know more about hospice care. She reports that she is not considering hospice care at the moment but would like to know more information. Also, palliative care to assist with pain control. 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, atrial fibrillation with RVR, non-small cell lung cancer Condition on Discharge: Fair Activity: Resume your previous activity Non-emergency contact: Primary Care Provider Call non-emergency contact if: you have any medication questions and your symptoms worsen Follow-up/Referrals: Fatimah Hartman CRNP [Outside Practitioners] - (Date & Time 08/29/2023 2:00 PM Provider DAVID Don Department Palliative Medicine, [facility] Please note that this is a video appointment.) Antonio Loza MD [Primary Care Provider] - (Date & Time 08/25/2023 2:00 PM Provider Antonio Loza MD Department Family Practice [facility] ) Diet: Regular Fluids: 1200ml (5 cups) Addtl Attending Provider Instructions: Please take precautions to avoid falls Take your oxygen and other medications as advised Please keep appointments with your healthcare providers Pending Studies at Discharge: No Stand-Alone Forms: [facility], Smoking Cessation Medications and DC Order Prescriptions: New doxycycline hyclate 100 mg Capsule 100 mg PO BID Qty: 12 0RF magnesium oxide 400 mg (241.3 mg magnesium) Tablet 400 mg PO BID Qty: 60 0RF metoprolol succinate 50 mg Tablet Extended Release 24 Hr 100 mg PO QAM Qty: 60 0RF sodium chloride 1,000 mg tablet,soluble 1,000 mg PO BID Qty: 60 0RF furosemide [Lasix] 20 mg tablet 20 mg PO BID Qty: 60 0RF Continued famotidine 20 mg tablet 20 mg PO BID PRN (Reason: Gi Upset) Eliquis 5 mg tablet 5 mg PO BID ondansetron HCl 8 mg tablet 8 mg PO Q8H PRN (Reason: n/v) prochlorperazine maleate 10 mg tablet 10 mg PO Q6H PRN (Reason: n/v) morphine 15 mg tablet extended release 15 mg PO HS sennosides [Senokot] 8.6 mg tablet 8.6 mg PO QAM PRN (Reason: const) lidocaine 5 % adhesive patch,medicated 1 patch transdermal HS PRN (Reason: Pain) Changed oxycodone 5 mg Tablet 5 mg PO Q8H PRN (Reason: pain) Qty: 20 0RF Rx Instructions: Take every 8 hours for pain as needed. Discharge Orders: Discharge Order (Routine); Ordered 08/18/23 Ordered By: Xochitl Bernal/Other Patient Handouts: Pain Medicines for Cancer Admission Data Admit Date/Time: 08/14/23 12:32 Attending Provider: Xochitl Arias Admit Provider: Hattie Nixon Primary Care Provider: Antonio Loza Other Providers: Hattie Nixon; Claudia Gann; Placido Saenz; Re Franco; Sabina Mabry; Julia Sher; Sachi Pan; Nicki Platt; Ian Perkins Other Interventions: Discharge Summary Assessment (RN) Last Done: 08/18/23 16:48
== END 2023-08-18 17:15 | disposition home or self-care (01) | DRG 643 ==
LOC: ED 09:59 → SUATTDRO 12:32 → EDINP 12:32 → 2E 13:37

== ENCOUNTER 2023-09-26 11:19 | Inpatient (IN) ==
[2023-09-26 12:45] LABS: Basophils # (auto) 0.04 K/uL (0.00-0.20); Basophils % (auto) 0.3 %; Eosinophils # (auto) 0.03 K/uL (0.00-0.50); Eosinophils % (auto) 0.2 %; Hematocrit (blood only) 27.7 % (37.0-47.0); Immature Granulocytes # (auto) 0.11 K/uL (0.01-0.20); Immature Granulocytes % (auto) 0.7 %; Lymphocytes % (auto) 5.9 %; Mean Corpuscular Hemoglobin 25.9 pg (25.0-34.0); Mean Corpuscular Hgb Conc 32.5 g/dL (32.0-36.0); Mean Corpuscular Volume 79.6 fL (80.0-100.0); Mean Platelet Volume 9.1 fL (9.4-12.4); Monocytes # (auto) 0.92 K/uL (0.11-0.59); Neutrophils # (auto) 13.23 K/uL (1.40-6.50); Neutrophils % (auto) 86.9 %; Platelet Count 536 K/uL (130-400); RDW Standard Deviation 52.5 fL (36.4-46.3); Red Blood Count 3.48 M/uL (4.20-5.40); White Blood Count 15.23 K/ul (4.8-10.8)
[2023-09-26 12:55] LABS: Alanine Aminotransferase 10 U/L (7-52); Albumin Globulin Ratio 0.6 (0.9-2); Albumin Level 2.7 gm/dl (3.4-5.0); Alkaline Phosphatase 111 U/L (34-104); Anion Gap 9 (3-11); Aspartate Aminotransferase 27 U/L (13-39); BUN Creatinine Ratio 20.3 (10-20); Bilirubin,Total 0.5 mg/dl (0.2-1.0); Blood Urea Nitrogen 14 mg/dl (6-23); Carbon Dioxide 28 mmol/L (21-32); Chloride 90 mmol/L (98-107); Est GFR (African American) 96.6 ml/min; Est GFR (Non-African American) 83.4 ml/min; Globulin 4.5 gm/dl (2.5-4.0); Glucose 103 mg/dl (70-99(Fasting)); Sodium 127 mmol/L (136-145); Total Protein 7.2 gm/dl (6.0-8.3)
[2023-09-26 13:03] LABS: Troponin I High Sensitivity 12.1 pg/ml (0-14)
[2023-09-26 13:09] LABS: INR 1.2 (0.9-1.1); Partial Thromboplastin Ratio 1.4; Partial Thromboplastin Time 38.7 Seconds (21.0-31.0); Prothrombin Time 13.2 Seconds (9.0-12.0)
--- NOTE | 2023-09-26 13:36 | XRay Report ---
SINGLE VIEW CHEST CLINICAL HISTORY: Atypical chest pain. Lung cancer. FINDINGS: An AP upright chest radiograph is compared to study dated 08/14/2023 and correlated with est CT dated 06/28/2023. The heart is mildly enlarged noting atherosclerotic calcification of the thor acic aorta. The pulmonary vasculature is noncongested. Emphysema and chronic interstitial thickening is similar to previous. A large mass lesion and atelectasis is again seen in the left upper lobe/left apex. There is dense airspace consolidation at the left lung base which is new from previous. A left pleural effusion is increased in size. The right lung appears clear noting basilar scarring/atelecta sis. No pneumothorax is seen. The skeletal structures are osteopenic. The bony thorax is grossly inta ct. IMPRESSION: 1. Cardiomegaly and emphysema. 2. Left basilar consolidation is new from 08/14/2023 and there is an enlarging left pleural effusion. Correlate clinically for evidence of pneumonia/aspiration pneumonitis. Radiographic follow-up to res olution is recommended. 3. A large mass lesion with associated atelectasis is again seen the left upper lobe/left apex. ACT 112: Negative or not required by law. Electronically signed by: Morgan Knight M.D. 09/26/2023 1:35 PM
--- NOTE | 2023-09-26 13:49 | Emergency Department Note ---
Impression & Plan Pleural effusion, Shortness of breath, Leukocytosis, Anemia, Acute hyponatremia ED Provider Note NAME: AYANA GONZALEZ AGE: 78 SEX: F : 1945 ARRIVES VIA: Walk-In INFORMANT: Patient ED PROVIDER(S): Guy Cooper DO CHIEF COMPLAINT: shortness of breath HPI: Patient is a 78-year-old female who presents the ER with a past medical history of lung cancer and A-fib with RVR for shortness of breath. Shortness of breath started about 2 weeks ago and has been getting worse. She was titrated up on the oxygen to 3 L. Denies any headache or change in vision. Does have chest pain for the past 4 weeks which is unchanged. Denies any belly pain, nausea, vomiting, or diarrhea. No dysuria, urgency, or frequency. No other exacerbating or remitting factors. ADDITIONAL HISTORY OBTAINED: Per HPI Chronic Medical/Social Conditions Affecting Care: Per HPI PAST MEDICAL HISTORY:See Below PAST SURGICAL HISTORY:See Below FAMILY HISTORY:See Below SOCIAL HISTORY:See Below HOME MEDICATIONS:See Below ALLERGIES:See Below VITALS:See Below PHYSICAL EXAMINATION: GENERAL: Sitting up in bed, alert, ill-appearing, disheveled EYE EXAM: normal conjunctiva. PERRL and EOM's intact. OROPHARYNX: no exudate, no erythema, lips, buccal mucosa, and tongue normal and mucous membranes are moist NECK: supple, no nuchal rigidity, no adenopathy, non-tender LUNGS: Clear to auscultation. Normal chest wall mechanics HEART: no murmurs, S1 normal and S2 normal ABDOMEN: abdomen soft, non-tender, normo-active bowel sounds, no masses, no rebound or guarding. BACK: Back is symmetrical on inspection and there is no deformity, no midline tenderness, no CVA tenderness. SKIN: no rashes and no bruising UPPER EXTREMITIES: upper extremities are grossly normal. LOWER EXTREMITIES: No pitting edema. NEURO EXAM: Normal sensorium, cranial nerves II-XII grossly intact, normal speech, no gross weakness of arms, no gross weakness of legs. MEDICAL DECISION MAKING: Patient is a 78-year-old female who presents the ER for shortness of breath with known lung cancer. IV was established blood was obtained. Labs show mild leukocytosis of 15,000. Mild anemia at 9. INR at 1.2. BMP with mild hyponatremia 127. LFTs bilirubin was unremarkable. Troponin was negative. UA was contaminated. No urinary symptoms. Chest x-ray with a large pleural effusion which I do favor is causing her shortness of breath. CT was obtained after admission which showed possible pneumonia. Will defer to the hospitalist that she was already admitted as she had already received Zosyn and doxycycline. Patient eventually got a bed due to protracted wait from the waiting room.. External Records Reviewed: Admitted in July to Dr. Arias for hyponatremia Consults/Care Managements Discussions: Per [facility] Triage Nursing notes reviewed. Limited review of prior medical records performed Vital Signs: reviewed and remarkable for hypertension Differential diagnosis: Differential diagnoses includes but is not limited to pneumonia, bronchitis, COPD/Asthma exacerbation, pneumothorax, pulmonary embolism, congestive heart failure, acute coronary syndrome ER treatment provided: See below Diagnostics interpreted by me include EKG and cardiac monitoring as listed below: -Cardiac Monitoring: An order was placed for continuous cardiac monitoring. The monitor shows a rate of 92 with sinus rhythm. -ECG: Sinus rhythm rate of 94 Normal axis No PVCs QTc 4 5 -Laboratory studies:Interpreted by me as stated above in MDM and shown below. Imaging studies: Xrays: As interpreted by me: Portable AP upright 1 view of the chest shows left chest effusion CTs show: none Procedures:none Critical Care: None Past Med/Surg History Medical History History of pulmonary embolism Non-small cell cancer of left lung Surgical History History of parotidectomy History of hip surgery Family History Other Breast cancer Social History Smoking Status: Former smoker Tobacco Type: Cigarettes Second Hand Exposure: No; Do You Dip or Chew Tobacco: No; Hx Alcohol Use: Yes Alcohol type: wine Hx Substance Use: No Preferred Language: Hungarian Communication Ability: Effective Client Service Consultant Required: No Beliefs That Will Affect Care: None Current Living Situation: Family Current Living Situation Comment: currently lives with daughter in 2 story house Feels Safe at Home: Yes Assistive Devices: None Allergies Allergies Allergy/AdvReac Type Severity Reaction Status Date / Time No Known Allergies Allergy Verified 06/28/23 16:24 Home Meds Home Medications Medication Instructions Recorded Confirmed apixaban 5 mg tablet (Eliquis) 5 mg PO BID 06/28/23 09/26/23 lidocaine 5 % topical patch 1 patch transdermal HS PRN Pain 08/14/23 09/26/23 morphine 15 mg tablet,extended 15 mg PO BID 08/14/23 09/26/23 release ondansetron HCl 8 mg tablet 8 mg PO Q8H PRN n/v 08/14/23 09/26/23 prochlorperazine maleate 10 mg 10 mg PO Q6H PRN n/v 08/14/23 09/26/23 tablet sennosides 8.6 mg tablet (Senokot) 8.6 mg PO QAM PRN const 08/14/23 09/26/23 oxycodone 5 mg tablet 10 mg PO Q4H PRN pain 09/26/23 09/26/23 Previous Rx's Medication Instructions Recorded furosemide 20 mg tablet (Lasix) 20 mg PO BID #60 tabs 08/18/23 magnesium oxide 400 mg (241.3 mg 400 mg PO BID #60 tabs 08/18/23 magnesium) tablet metoprolol succinate 50 mg 100 mg (2 x 50 mg) PO QAM #60 tabs 08/18/23 tablet,extended release 24 hr sodium chloride 1,000 mg soluble 1,000 mg PO BID #60 tabs 08/18/23 tablet Results & Data (ED) Vital Signs Vital Signs - 24 hr 09/26/23 11:37 09/26/23 11:37 Temperature 36.6 C Temperature Source Temporal Artery Scan Pulse Rate 108 H Respiratory Rate 22 Respiratory Effort / Characteristics Spontaneous Spontaneous Respiratory Depth Normal Normal Respiratory Pattern Regular Regular Blood Pressure 118/79 Blood Pressure Mean 92 Blood Pressure Position Sitting Pulse Oximetry 100 Oxygen Delivery Method Nasal Cannula Nasal Cannula Oxygen Flow Rate 3 3 Sepsis Recent Fever Within 48 Hours No Sepsis New/Unexplained Change in Mental Status No Sepsis Action Taken by Nursing No Action Required Laboratory Data 09/26/23 12:02 09/26/23 12:02 Lab Results 09/26/23 09/26/23 Range/Units 12:02 12:09 WBC 15.23 H (4.8-10.8) K/ul RBC 3.48 L (4.20-5.40) M/uL Hgb 9.0 L (12.0-16.0) g/dl Hct 27.7 L (37.0-47.0) % MCV 79.6 L (80.0-100.0) fL MCH 25.9 (25.0-34.0) pg MCHC 32.5 (32.0-36.0) g/dL RDW Std Deviation 52.5 H (36.4-46.3) fL RDW Coeff of Rivka 18.0 H (11.5-14.5) % Plt Count 536 H (130-400) K/uL MPV 9.1 L (9.4-12.4) fL Immature Gran % (Auto) 0.7 % Neut % (Auto) 86.9 % Lymph % (Auto) 5.9 % Rusk % (Auto) 6.0 % Eos % (Auto) 0.2 % Baso % (Auto) 0.3 % Neut # (Auto) 13.23 H (1.40-6.50) K/uL Lymph # (Auto) 0.90 L (1.20-3.40) K/uL Rusk # (Auto) 0.92 H (0.11-0.59) K/uL Eos # (Auto) 0.03 (0.00-0.50) K/uL Baso # (Auto) 0.04 (0.00-0.20) K/uL Immature Gran # (Auto) 0.11 (0.01-0.20) K/uL PT 13.2 H (9.0-12.0) Seconds INR 1.2 H (0.9-1.1) APTT 38.7 H (21.0-31.0) Seconds PTT Ratio 1.4 Sodium 127 L (136-145) mmol/L Potassium 4.0 (3.5-5.1) mmol/L Chloride 90 L (98-107) mmol/L Carbon Dioxide 28 (21-32) mmol/L Anion Gap 9 (3-11) BUN 14 (6-23) mg/dl Creatinine 0.69 (0.6-1.2) mg/dl Est Cr Clr Drug Dosing Not Reportable Est GFR ( Amer) 96.6 ml/min Est GFR (Non-Af Amer) 83.4 ml/min BUN/Creatinine Ratio 20.3 H (10-20) Glucose 103 H (70-99(Fasting)) mg/dl Osmolality 268 L (280-300) mOsm/kg Calcium 9.0 (8.6-10.3) mg/dl Total Bilirubin 0.5 (0.2-1.0) mg/dl AST 27 (13-39) U/L ALT 10 (7-52) U/L Alkaline Phosphatase 111 H (34-104) U/L Troponin I High Sens 12.1 (0-14) pg/ml Total Protein 7.2 (6.0-8.3) gm/dl Albumin 2.7 L (3.4-5.0) gm/dl Globulin 4.5 H (2.5-4.0) gm/dl Albumin/Globulin Ratio 0.6 L (0.9-2) Administered Medications Discontinued Medications Piperacillin Sod/Tazobactam (Sod 4.5 gm/ Dextrose) 100 mls @ 200 mls/hr IV 1530 ONE; Protocol Stop: 09/26/23 15:59 Last Admin: 09/26/23 16:15 Dose: 200 mls/hr Documented By: KATHY Ioversol (Optiray 320 500ml) 94 ml IV ONCE ONE Stop: 09/26/23 15:41 Last Admin: 09/26/23 15:41 Dose: 94 ml Documented By: THANIA Miscellaneous (Fentanyl Patch Remove & Waste) 1 each N/A NOW STA Stop: 09/26/23 15:15 Last Admin: 09/26/23 16:15 Dose: 1 each Documented By: KATHY Co-signed By: DAVID Oxycodone HCl (Oxycodone Hcl Ir 5 Mg Tab (Immediate Release)) 5 mg PO NOW STA Stop: 09/26/23 15:09 Last Admin: 09/26/23 15:15 Dose: 5 mg Documented By: KATHY Imaging Data Radiologist's Impression: Chest X-Ray 09/26/23 11:41 SINGLE VIEW CHEST CLINICAL HISTORY: Atypical chest pain. Lung cancer. FINDINGS: An AP upright chest radiograph is compared to study dated 08/14/2023 and correlated with chest CT dated 06/28/2023. The heart is mildly enlarged noting atherosclerotic calcification of the thoracic aorta. The pulmonary vasculature is noncongested. Emphysema and chronic interstitial thickening is similar to previous. A large mass lesion and atelectasis is again seen in the left upper lobe/left apex. There is dense airspace consolidation at the left lung base which is new from previous. A left pleural effusion is increased in size. The right lung appears clear noting basilar scarring/atelectasis. No pneumothorax is seen. The skeletal structures are osteopenic. The bony thorax is grossly intact. IMPRESSION: 1. Cardiomegaly and emphysema. 2. Left basilar consolidation is new from 08/14/2023 and there is an enlarging left pleural effusion. Correlate clinically for evidence of pneumonia/aspiration pneumonitis. Radiographic follow-up to resolution is recommended. 3. A large mass lesion with associated atelectasis is again seen the left upper lobe/left apex. ACT 112: Negative or not required by law. Electronically signed by: Morgan Knight M.D. 09/26/2023 1:35 PM Discharge Plan Visit Data Chief Complaint: Shortness of Breath/Dyspnea Stated Complaint: SOB ED Provider: Guy Cooper Discharge Problem: Pleural effusion, Shortness of breath, Leukocytosis, Anemia, Acute hyponatremia Patient Disposition: Admitted As Inpatient Discharge Instructions Interventions: ED Discharge Assessment Last Done: 09/26/23 16:16 Discharge Problem: Leukocytosis Qualifiers: Leukocytosis type: unspecified Qualified Code(s): D72.829 - Elevated white blood cell count, unspecified Anemia Qualifiers: Anemia type: unspecified type Qualified Code(s): D64.9 - Anemia, unspecified
--- NOTE | 2023-09-26 14:30 | History & Physical Report ---
Date of Service September 26, 2023 Assessment & Plan (1) Acute hypoxic respiratory failure: (2) Non-small cell cancer of left lung: (3) Pleural effusion, left: (4) Pneumonia: (5) Severe malnutrition: (6) Atrial fibrillation: Plan This is a 70-year-old female who has significant past medical history of non- small cell lung cancer of left upper lobe followed by Dr. Bray, hyponatremia, history of bilateral PE, atrial fibrillation anticoagulated with Eliquis, severe protein calorie malnutrition who presents to ED secondary to worsening shortness of breath x 2 weeks. Acute hypoxic respiratory failure Non-small cell cancer of left lung Left pleural effusion, concern for malignant effusion Possible left basilar pneumonia Possible sepsis - pt meets SIRS criteria with tachycardia and leukocytosis Admit to telemetry Empirically treat with IV Zosyn, doxycycline Obtain MRSA swab Supplemental oxygen as needed, pt most recently discharged on 2L As needed nebulizer, incentive spirometry obtain CT chest given extensive findings on XR Consult pulm to eval for possible thoracentesis last dose of eliquis was 0900 on 09/26, will hold until eval by pulm pt follows with Dr. Bray, currently unsure if wants to continue chemotherapy as she did not tolerate first round well consider inpt palliative consult Acute worsening ofChronic hyponatremia 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 [facility] pt has been receiving IV hydration twice last week via heme/onc she has also stopped her lasix 2 weeks ago, but remains on NACL tabs obtain urine osm, urine na, serum osm will place on IV NS 75cc/hr and IV lasix 30mg q8h - reviewed nephrology prior progress notes/consultation for tx consider nephro consult if worsening Cancer related pain pt with chest pain she is following palliative through [facility] has fentanyl patch in place, day 3 but has no further refills, this will be removed palliative has pt on MS contin 15mg big, oxy IR 10mg q4hr prn pain will continue, bowel regimen as needed Hx of PE on eliquis PAF chronic, stable continue metoprolol, eliquis on hold in event need thora Severe protein calorie malnutrition 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 Brasher, please see addendum History of Present Illness Chief Complaint: SOB x 2 weeks. Primary Care Provider: Antonio Loza MD This is a 70-year-old female who has significant past medical history of non- small cell lung cancer of left upper lobe followed by Dr. Bray, hyponatremia, history of bilateral PE, atrial fibrillation anticoagulated with Eliquis, severe protein calorie malnutrition who presents to ED secondary to worsening shortness of breath x 2 weeks. Of significance patient recently hospitalized 08/14/2023 to 08/18/2023 secondary to generalized weakness and confusion. She was noted to have a sodium of 120 at presentation. Urine studies suggestive of SIADH. This was also likely exacerbated by poor intake. She had been receiving normal saline infusion as well as IV furosemide to help correct sodium level. She was seen and evaluated by nephrology and discharged home on oral salt tablets, Lasix and fluid restriction. During hospital stay she was diagnosed with A-fib with RVR. Echocardiogram revealed EF 65 to 70% with mild concentric LVH. She was started on metoprolol succinate 100 mg once daily and seen and evaluated by cardiology. She was already on Eliquis 5 mg twice daily therefore no change in anticoagulation. She was treated with antibiotics for 7-day course due to possible postobstructive pneumonia. She was seen and evaluated by palliative during hospital stay. On the day of discharge she qualified for 2 L of oxygen at night and with activity. Outpatient records also reviewed. Mom is at bedside. Patient's daughter also on phone. Both help elicit history. She has been experiencing worsening shortness of breath over the last 2 to 3 weeks. She also continues to have constant precordial chest wall pain left greater than right that radiates to her back. Pain is made worse with movement. It is improved with rest. She continues to complain of a dry cough. She further complains of lightheadedness, occasional presyncope, overall poor appetite, is drinking fluids, dysuria and diarrhea. She denies any recent fever, chills, sweats, syncope, hemoptysis, nausea, vomiting, abdominal pain, melena or hematochezia. In ED patient continues to be hyponatremic with a sodium of 127, H&H low at 9.0 and 27.7, WC 15.23, platelet 536, urine osmolality 268, albumin 2.7.Chest x-ray concerning for cardiomegaly, emphysema, left basilar consolidation new with an enlarging left pleural effusion. Also noted is a large mass lesion with associated atelectasis in the left upper lobe. Allergies Allergy/AdvReac Type Severity Reaction Status Date / Time No Known Allergies Allergy Verified 06/28/23 16:24 Home Medications Medication Instructions Recorded Confirmed Type apixaban 5 mg tablet (Eliquis) 5 mg PO BID 06/28/23 09/26/23 History lidocaine 5 % topical patch 1 patch transdermal HS PRN Pain 08/14/23 09/26/23 History morphine 15 mg tablet,extended 15 mg PO BID 08/14/23 09/26/23 History release ondansetron HCl 8 mg tablet 8 mg PO Q8H PRN n/v 08/14/23 09/26/23 History prochlorperazine maleate 10 mg 10 mg PO Q6H PRN n/v 08/14/23 09/26/23 History tablet sennosides 8.6 mg tablet (Senokot) 8.6 mg PO QAM PRN const 08/14/23 09/26/23 History furosemide 20 mg tablet (Lasix) 20 mg PO BID #60 tabs 08/18/23 09/26/23 Rx magnesium oxide 400 mg (241.3 mg 400 mg PO BID #60 tabs 08/18/23 09/26/23 Rx magnesium) tablet metoprolol succinate 50 mg 100 mg (2 x 50 mg) PO QAM #60 tabs 08/18/23 09/26/23 Rx tablet,extended release 24 hr sodium chloride 1,000 mg soluble 1,000 mg PO BID #60 tabs 08/18/23 09/26/23 Rx tablet oxycodone 5 mg tablet 10 mg PO Q4H PRN pain 09/26/23 09/26/23 History Past Med/Surg History Medical History History of pulmonary embolism Non-small cell cancer of left lung Surgical History History of parotidectomy History of hip surgery Family History Other Breast cancer Social History Smoking Status: Former smoker Tobacco Type: Cigarettes Second Hand Exposure: No; Do You Dip or Chew Tobacco: No; Hx Alcohol Use: No Hx Substance Use: No Preferred Language: Romansh Communication Ability: Effective 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 Beliefs That Will Affect Care: None Current Living Situation: Family Current Living Situation Comment: daughter Feels Safe at Home: Yes Safety Concerns: Feels Safe At This Time Assistive Devices: Denture - Upper, Denture - Lower and Glasses Review of Systems Review of Systems: All systems reviewed & are unremarkable except as noted in HPI & below Physical Exam Physical Exam: Constitutional: Fraile, elderly, F, appears generally weak and chronically ill, vitals as above, NAD, sitting up in bed, pleasant, answers questions appropriately, poor eye contact Head: Normocephalic, Atraumatic Eyes: PERRL, conjunctivae normal, anicteric sclerae ENMT: external ear and nose normal, oropharynx normal, dry membranes Neck: trachea midline, no thyromegaly normal visual inspection Respiratory: normal respiratory effort, lungs clear to auscultation with significantly diminished breath sounds at left lung base, positive Rales, no wheeze or rhonchi. Normal insp/exp effort, no accessory muscle use on 3.5L of O2 Cardiovascular: RRR, no murmur, no edema Vessels: no JVD or carotid bruit Chest: normal inspection of chest Abdomen: normal bowel sounds, soft, nontender, no hepatosplenomegaly Musculoskeletal: no cyanosis or clubbing, AROM x 4 Skin: no rashes, warm and dry normal turgor Neurologic: PERRL, EOMI, accommodation nl, no face palsy, no dysarthria CN's II-XI intact bilaterally and moves all extremities Psychiatric: A+Ox3, dysthymic affect : deferred Results & Data Results & Data Vital Signs (Past 12 Hours) Vital Signs Temp Pulse Resp BP Pulse Ox O2 Del Method O2 Flow Rate 09/26/23 11:37 36.6 C 108 H 22 118/79 100 Nasal Cannula 3 09/26/23 11:37 Nasal Cannula 3 Diagnostic Findings Chest X-Ray 09/26/23 11:41 SINGLE VIEW CHEST CLINICAL HISTORY: Atypical chest pain. Lung cancer. FINDINGS: An AP upright chest radiograph is compared to study dated 08/14/2023 and correlated with chest CT dated 06/28/2023. The heart is mildly enlarged noting atherosclerotic calcification of the thoracic aorta. The pulmonary vasculature is noncongested. Emphysema and chronic interstitial thickening is similar to previous. A large mass lesion and atelectasis is again seen in the left upper lobe/left apex. There is dense airspace consolidation at the left lung base which is new from previous. A left pleural effusion is increased in size. The right lung appears clear noting basilar scarring/atelectasis. No pneumothorax is seen. The skeletal structures are osteopenic. The bony thorax is grossly intact. IMPRESSION: 1. Cardiomegaly and emphysema. 2. Left basilar consolidation is new from 08/14/2023 and there is an enlarging left pleural effusion. Correlate clinically for evidence of pneumonia/aspiration pneumonitis. Radiographic follow-up to resolution is recommended. 3. A large mass lesion with associated atelectasis is again seen the left upper lobe/left apex. ACT 112: Negative or not required by law. Electronically signed by: Morgan Knight M.D. 09/26/2023 1:35 PM ECG Rate (beats per minute): 94 Rhythm: normal sinus COVID-19 Results Results COVID-19 Adm Lab Results: RBC 3.48 M/uL (4.20-5.40) L 09/26/23 WBC 15.23 K/ul (4.8-10.8) H 09/26/23 Hgb 9.0 g/dl (12.0-16.0) L 09/26/23 Hct 27.7 % (37.0-47.0) L 09/26/23 Plt Count 536 K/uL (130-400) H 09/26/23 Neutrophils (%) (Auto) 86.9 % 09/26/23 Lymphocytes (%) (Auto) 5.9 % 09/26/23 Monocytes # (Auto) 0.92 K/uL (0.11-0.59) H 09/26/23 Eosinophils # (Auto) 0.03 K/uL (0.00-0.50) 09/26/23 Immature Granulocyte % (Auto) 0.7 % 09/26/23 Neutrophils # (Auto) 13.23 K/uL (1.40-6.50) H 09/26/23 Lymphocytes # (Auto) 0.90 K/uL (1.20-3.40) L 09/26/23 Monocytes # (Auto) 0.92 K/uL (0.11-0.59) H 09/26/23 Eosinophils # (Auto) 0.03 K/uL (0.00-0.50) 09/26/23 Basophils # (Auto) 0.04 K/uL (0.00-0.20) 09/26/23 Immature Granulocyte # (Auto) 0.11 K/uL (0.01-0.20) 3 Na 127 mmol/L (136-145) L 09/26/23 K 4.0 mmol/L (3.5-5.1) 09/26/23 Cl 90 mmol/L (98-107) L 09/26/23 CO2 28 mmol/L (21-32) 09/26/23 Anion Gap 9 (3-11) 09/26/23 BUN 14 mg/dl (6-23) 09/26/23 Creatinine 0.69 mg/dl (0.6-1.2) 09/26/23 BUN/Creatinine Ratio 20.3 (10-20) H 09/26/23 Glucose Level 103 mg/dl (70-99(Fasting)) H 09/26/23 Ca 9.0 mg/dl (8.6-10.3) 09/26/23 Total Bilirubin 0.5 mg/dl (0.2-1.0) 09/26/23 AST/SGOT 27 U/L (13-39) 09/26/23 ALT/SGPT 10 U/L (7-52) 09/26/23 Alkaline Phosphatase 111 U/L (34-104) H 09/26/23 Total Protein 7.2 gm/dl (6.0-8.3) 09/26/23 Albumin 2.7 gm/dl (3.4-5.0) L 09/26/23 Globulin 4.5 gm/dl (2.5-4.0) H 09/26/23 Albumin/Globulin Ratio 0.6 (0.9-2) L 09/26/23 Procalcitonin 0.25 ng/ml (0-0.5) 09/26/23 PTT 38.7 Seconds (21.0-31.0) H 09/26/23 INR 1.2 (0.9-1.1) H 09/26/23 COVID-19 PCR POSITIVE (Negative) A* 09/26/23 Influenza Virus Type A (PCR) Negative (Neg) 09/26/23 Influenza Virus Type B (PCR) Negative (Neg) 09/26/[address] 09/26/23 Chest X-Ray 09/26/23 Code Status & VTE Plan Code Status DNR/DNI VTE Prophylaxis Plan VTE Prophylaxis will be ordered: No Reason for no VTE drug order: Treatment not indicated Supervising Physician Co-Signing Physician Notes Pt seen and examined by myself, Keturah Brasher MD on the day of service. Care was coordinated with Jessica Magana PA-C. 78yoF with metastatic lung cancer admitted with progressive SOB. Follows with palliative care, heme/onc. States she is unsure where she is with treatment or her plan. Frail and cachectic on exam. Pulm consult, consider nephrology consult for hyponatremia, pain control. Consider in house palliative eval as well. Otherwise as above.
[2023-09-26] MEDS ORDERED: oxyCODONE HCL IR 5 MG TAB (IMMEDIATE RELEASE) PO STA (15:08)
[2023-09-26] MEDS ORDERED: PIPERACILLIN/TAZOBACTAM 4.5 GM in DEXTROSE 5% MINI-B 100 ML IV ONE (15:30)
[2023-09-26] MEDS ORDERED: DOXYCYCLINE HYCLATE 100 MG in DEXTROSE 5% MINI-B 100 ML IV ONE (15:30)
[2023-09-26] MEDS ORDERED: OPTIRAY 320 500ml IV ONE (15:40)
--- NOTE | 2023-09-26 16:04 | Pulmonary Consultation ---
Date of Consultation September 26, 2023 Assessment & Plan (1) Shortness of breath: (2) Pleural effusion: (3) Atrial fibrillation: (4) Pneumonia: (5) Non-small cell cancer of left lung: Plan CT chest 09/26/2023 personally reviewed: Centrilobular emphysema appreciated bilaterally Left perihilar mass groundglass opacities Right lower lobe linear atelectasis Left upper lobe and left perihilar mass Moderate left-sided pleural effusion --Acute respiratory failure with hypoxia Multifactorial Left-sided pleural effusion Underlying small cell lung cancer Procalcitonin 0.25 --Pleural effusion Moderate left-sided New compared to CT chest in 05/2023 Probability of it being malignant is high --Metastatic non small cell cancer of the lung Was on Tecentriq, carboplatin, etoposide - last cycle 07/24-07/26 Patient was not able to tolerate first-line of chemotherapy -- A-fib On apixaban Last dose 09/26/2023 9 AM Plan: Continue to hold apixaban. It needs to be held for at least 48 hours before doing any invasive procedure. Will tentatively plan to do procedure on , 10/28/2020 3 in the afternoon. If there is clinical indication can start heparin drip without bolus tonight Dexamethasone 6 mg on a daily basis for COVID-19 Continue with antibiotics Please note the above document was generated using voice recognition software. It may contain grammatical, syntax or spelling errors.Any formal questions or concerns about the content, text or information contained within the body of this dictation should be directly addressed to the provider for clarification. History of Present Illness History of Present Illness 78-year-old female present to the hospital with complaints of shortness of breath Past medical history: Non-small cell lung cancer, A-fib on Eliquis, chronic hypoxic respiratory failure on 2 L oxygen at home Pulmonary consulted for pleural effusion At the time of examination patient was saturating 100% liters nasal cannula. I went down to 2 L She was not in any respiratory distress. Respiratory rate was in the high teens to low 20s. Patient stated that she has been having issues with her breathing going on for approximately a week progressively getting worse. She has been coughing but not bringing up any phlegm. Denies any hemoptysis Denies any chest pain Did complain of subjective chills but no fever. No dysuria, no diarrhea Patient is not on any inhalers at home Last chemotherapy was back in March 2023. She follows up with Dr. Parr Social history: Ex-smoker, approximately [id number] smoking history Allergies Allergy/AdvReac Type Severity Reaction Status Date / Time No Known Allergies Allergy Verified 06/28/23 16:24 Home Medications Medication Instructions Recorded Confirmed Type apixaban 5 mg tablet (Eliquis) 5 mg PO BID 06/28/23 09/26/23 History lidocaine 5 % topical patch 1 patch transdermal HS PRN Pain 08/14/23 09/26/23 History morphine 15 mg tablet,extended 15 mg PO BID 08/14/23 09/26/23 History release ondansetron HCl 8 mg tablet 8 mg PO Q8H PRN n/v 08/14/23 09/26/23 History prochlorperazine maleate 10 mg 10 mg PO Q6H PRN n/v 08/14/23 09/26/23 History tablet sennosides 8.6 mg tablet (Senokot) 8.6 mg PO QAM PRN const 08/14/23 09/26/23 History furosemide 20 mg tablet (Lasix) 20 mg PO BID #60 tabs 08/18/23 09/26/23 Rx magnesium oxide 400 mg (241.3 mg 400 mg PO BID #60 tabs 08/18/23 09/26/23 Rx magnesium) tablet metoprolol succinate 50 mg 100 mg (2 x 50 mg) PO QAM #60 tabs 08/18/23 09/26/23 Rx tablet,extended release 24 hr sodium chloride 1,000 mg soluble 1,000 mg PO BID #60 tabs 08/18/23 09/26/23 Rx tablet oxycodone 5 mg tablet 10 mg PO Q4H PRN pain 09/26/23 09/26/23 History Patient History Medical History History of pulmonary embolism Non-small cell cancer of left lung Surgical History History of parotidectomy History of hip surgery Family History Other Breast cancer Social History Smoking Status: Former smoker Tobacco Type: Cigarettes Second Hand Exposure: No; Do You Dip or Chew Tobacco: No; Hx Alcohol Use: No Hx Substance Use: No Preferred Language: Iranian Communication Ability: Effective Mother Baby Rn Required: No Beliefs That Will Affect Care: None Current Living Situation: Family Current Living Situation Comment: daughter Feels Safe at Home: Yes Safety Concerns: Feels Safe At This Time Assistive Devices: Denture - Upper, Denture - Lower and Glasses Review of Systems 2 Review of Systems: All systems reviewed & are unremarkable except as noted in HPI & below Physical Exam 2 Physical Exam: Constitutional: No acute distress, frail-appearing HEENT: EOMI, PERRLA Respiratory system: Decreased air entry bilaterally, more decreased on the left side, no wheeze, no rhonchi, mild crackles bilateral lower lobes CVS: S1-S2 positive, no murmurs or gallops Abdomen: Soft, nontender, nondistended, positive bowel sounds x4 Extremities: +2 pulses bilaterally radialis/ dorsalis pedis, no cyanosis, no edema Neuro: Awake alert oriented x3 Psych: Normal mood and affect G/U: No Morse Results & Data Results & Data Vital Signs (Past 12 Hours) Vital Signs Temp Pulse Pulse Resp BP BP Pulse Ox 09/26/23 14:41 96 09/26/23 14:41 95 H 16 153/96 H 96 09/26/23 14:41 95 09/26/23 11:37 36.6 C 108 H 22 118/79 100 09/26/23 11:37 O2 Del Method O2 Flow Rate 09/26/23 14:41 Nasal Cannula 3 09/26/23 14:41 Room Air 09/26/23 14:41 Nasal Cannula 3 09/26/23 11:37 Nasal Cannula 3 09/26/23 11:37 Nasal Cannula 3 Laboratory Results 09/26/23 12:02 09/26/23 12:02 PG Care Time/CCT Total # of Minutes Spent Total Time Spent with Patient: Total time spent is greater than 50% in coordination of care (as documented) at patient's floor/unit and/or counseling patient: Coding Level of Care Code 63306 INT INP/OBS CARE 3/75MIN Diagnoses Shortness of breath R06.02 Pleural effusion J90 Atrial fibrillation I48.91 Pneumonia J18.9 Non-small cell cancer of left lung C34.92
--- NOTE | 2023-09-26 16:07 | CT Scan Report ---
CT SCAN OF THE CHEST WITH IV CONTRAST CLINICAL HISTORY: Left lung mass. Pleural effusion. COMPARISON STUDY: Chest CT dated 06/28/2023. Chest x-ray dated 09/18/2023. TECHNIQUE: Following the IV administration of 94 cc of Optiray 320, CT scan of the thorax was perform ed from the thoracic inlet to the upper abdomen. Images are reviewed in the axial, sagittal, and aliza nal planes. IV contrast was administered without complication. A dose lowering technique was utilize d adhering to the principles of ALARA. There is streak artifact from the left arm which could not be elevated above the chest. CT DOSE: 247.42 mGy.cm FINDINGS: Thyroid: Imaged portions of the thyroid gland are normal in size and attenuation. Thoracic aorta: There is atherosclerotic calcification of the thoracic aorta, which is normal in kumar shreya and demonstrates standard 3-vessel arch anatomy. No dissection is seen. Pulmonary vasculature: The pulmonary trunk is normal in caliber. There are no filling defects identif ied in the central pulmonary vessels to indicate pulmonary embolus. Note that this examination was no t protocoled for evaluation of the pulmonary arteries. Heart: The heart is enlarged noting a small pericardial effusion. There are coronary artery calcifica tions. Lungs and pleural spaces: There is moderate emphysema. There is a large heterogeneously enhancing mas s lesion in the left upper lung. This extends from the left hilar region to the apex, and measures ap proximately 11.5 x 9 x 7 cm in aggregate dimension. There is extrapleural extension of this mass lesi on at the apex seen on image #22. This erodes the adjacent first and second ribs. The mass lesion enc ases and occludes the left upper lobe bronchovascular structures. The lesion also invades the mediast inum. There is a moderate left pleural effusion with left lower lobe consolidation. Patchy airspace c onsolidation is also seen in the lingula. Fibrotic changes noted at the right apex. There is linear s carring/atelectasis at the right lung base. No right pleural effusion is identified. Mediastinum: An AP window geoff aggregate on image #89 measures approximately 3.4 x 1.6 cm. A subcari nal node measures 1.4 cm in short axis. Fariha: The left hilum is obscured by a large mass lesion. No right hilar adenopathy is seen. Axillae: There is bulky left axillary lymphadenopathy. A geoff aggregate on image #76 measures approx imately 7.5 x 3.5 cm. No right axillary lymphadenopathy seen. Lower neck: There is pathologic left supraclavicular lymphadenopathy. A node on image #27 measures 3. 4 x 2.2 cm. Upper abdomen: A 3.1 cm cyst is partially visualized in the left kidney. Partially visualized abdomin al viscera is otherwise grossly unremarkable. No adrenal lesion is seen. Skeletal structures: The skeletal structures are osteopenic. There are osteolytic lesions within the bodies of T2 and T3 with corresponding pathologic fractures. There is associated hyperkyphosis of the upper thoracic spine. There is epidural extension of tumor at both levels which interfaces the ventr al subarachnoid space and contributes to at least mild central canal stenosis. Soft tissues: There is body wall edema. IMPRESSION: 1. Cardiomegaly and emphysema. 2. A large mass lesion is again seen in the left upper lung. This has increased in size from 3, and there is extrapleural extension at the apex, invasion of the mediastinum/left hilum, and erosi on of the left posterior first and second ribs. 3. There are osteolytic lesions within the bodies of T2 and T3 with pathologic compression fractures. There is epidural extension of tumor at these levels with effacement of the ventral subarachnoid spa ce and at least mild central canal stenosis. Follow-up with radiation oncology is recommended. 4. Bulky left supraclavicular and axillary lymphadenopathy has progressed from previous and is consis tent with metastatic disease. 5. Mediastinal adenopathy has also increased from previous. 6. There is a moderate left pleural effusion, which has significantly increased from previous. There is consolidation of the left lower lung and patchy airspace opacities in the lingula. Correlate clini emely for evidence of pneumonia/aspiration pneumonitis. 7. The right lung appears clear. 8. Additional findings as above. ACT 112: Positive. There are findings on this exam that require communication between the performing entity and the patient following Patient Test Result Information Act ([place] Act 112) guidelines. Electronically signed by: Morgan Knight M.D. 09/26/2023 4:05 PM
[2023-09-26 16:15] LABS: Appearance Urine Turbid (Clear); Bacteria Urine Automated Negative (Negative); Bilirubin Urine Negative (Negative); Blood Urine Negative (Negative); Color Urine Yellow; Epithelial Cell Urine Auto 20-30 /lpf (0-5); Glucose Urine UA Negative (Negative); Ketones Urine Negative (Negative); Leukocyte Esterase Urine 1+ (Negative); Nitrite Urine Negative (Negative); Protein Urine Negative (Negative); RBC Urine Automated 0-4 /hpf (0-4); Specific Gravity Urine 1.028 (1.000-1.030); Urobilinogen Urine Negative (Negative)
[2023-09-26] MEDS ORDERED: MAGNESIUM HYDROXIDE SUSP 30 ML UDC PO PRN (16:15)
[2023-09-26] MEDS ORDERED: ALBUT/IPRATROP 3MG/0.5MG NEB 3 ML VIAL NEB PRN (16:15)
[2023-09-26] MEDS ORDERED: SENNA 8.6 MG TAB PO PRN (16:15)
[2023-09-26] MEDS ORDERED: ACETAMINOPHEN 325 MG TAB PO PRN (16:15)
[2023-09-26] MEDS ORDERED: POLYETHYLENE (MIRALAX) 17 GM PACK PO PRN (16:15)
[2023-09-26] MEDS ORDERED: ALUMINUM/MAGNESIUM SUSP 30 ML UDC PO PRN (16:15)
--- NOTE | 2023-09-26 16:19 | Electrocardiogram Report ---
Test Reason : Blood Pressure : / mmHG Vent. Rate : 094 BPM Atrial Rate : 094 BPM P-R Int : 130 ms QRS Dur : 080 ms QT Int : 324 ms P-R-T Axes : 067 025 066 degrees QTc Int : 405 ms Normal sinus rhythm Possible Left atrial enlargement Abnormal ECG When compared with ECG of 16-AUG-2023 11:01, No significant change was found Confirmed by Brad Rosas ([id number]) on 09/26/2023 4:19:12 PM Referred By: Confirmed By:Koko Rosas
[2023-09-26] MEDS ORDERED: Patient's HEIGHT &/or WEIGHT Needed SCH (16:30)
[2023-09-26] MEDS: SODIUM CHLORIDE 0.9% 1,000 ML IV SCH (16:56)
[2023-09-26 17:13] LABS: Influenza A virus by PCR Negative (Neg); Influenza B virus by PCR Negative (Neg); RSV by PCR Negative (Neg)
[2023-09-26 17:25] LABS: SARS CoV2 RNA(COVID-19) Ceph POSITIVE (Negative)
--- OUTSIDE RECORDS SUMMARY | 2023-09-26 17:37 | External Medical Summary | Summary of Care ---
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 30 Tablet 3 04/25/2023 Active Vitamin B-12 1000 MCG Oral Tablet (Cyanocobalamin) Take 1 Tablet by mouth in the morning. 0 Active predniSONE 10 MG Oral Tablet (Deltasone) Take 1 Tablet by mouth in the morning. 0 Active Turmeric 500 MG Oral Capsule Take 1 Capsule by mouth in the morning. 0 Active Ondansetron HCl 8 MG Oral TabletIndications :Chemotherapy induced nausea and vomiting,Bilatera l pulmonary embolism (HCC),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 30 Tablet 0 07/17/2023 Active Prochlorperazine Maleate 10 MG Oral Tablet (Compazine)Indica tions:Chemotherap y induced nausea and vomiting,Bilatera l pulmonary embolism (HCC),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 30 Tablet 0 07/17/2023 Active Polyethylene Glycol 3350 17 GM Oral Packet (Miralax) Take 1 Packet by mouth in the morning. 14 Each 5 08/08/2023 Active Additional Information Patient not taking.Reported on 09/11/2023 Sennosides 8.6 MG Oral Tablet (Senokot) Take 1 Tablet by mouth at bedtime. 60 Tablet 5 08/08/2023 Active Doxycycline Hyclate 100 MG Oral Capsule Take 1 capsule (100mg) by mouth twice a day 12 Capsule 0 08/18/2023 Active Additional Information Patient not taking.Reported on 09/11/2023 Furosemide 20 MG Oral Tablet (Lasix) Take 1 tablet (20mg) by mouth twice a day 60 Tablet 0 08/18/2023 Active Metoprolol Succinate ER 50 MG Oral Tablet Extended Release 24 Hour (toPROL XL) Take 2 tablets (100mg) by mouth daily in the morning 60 Tablet 0 08/18/2023 Active Apixaban 5 MG Oral Tablet (Eliquis)Indicati ons: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 60 Tablet 5 08/21/2023 Active oxyCODONE HCl 5 MG Oral Tablet (Oxy IR)Indications:Pr imary cancer of left upper lobe of lung (HCC) Take 2 Tablets by mouth every 4 hours as needed for Moderate Pain 60 Tablet 0 09/15/2023 Active Morphine Sulfate ER 15 MG Oral Tablet Extended Release (Ms Contin)Indication s:Cancer related pain Take 1 Tablet by mouth in the morning and 1 Tablet before bedtime. 60 Tablet 0 09/15/2023 10/15/2023 Active documented as of this encounter (statuses as of 09/19/2023) Active Problems Problem Noted Date Diagnosed Date Dehydration 09/18/2023 Primary cancer of left upper lobe of lung 2022 Cancer Staging:Clinical:Stage STEVE(cT3, cN3, cM1b) - Signed by Traci Mitchell MD on 04/12/2023 Encounter for antineoplastic chemotherapy 2022 Chemotherapy induced nausea and vomiting 023 Generalized weakness 03/20/2023 Bilateral pulmonary embolism 03/20/2023 Hyponatremia 03/20/2023 New onset atrial fibrillation 03/20/2023 Severe protein-energy malnutrition 03/20/2023 Lung mass 03/14/2023 Cataract 08/08/2016 Family hx-breast malignancy 08/08/2016 Overview: Grandmother at An older age Family history of cardiovascular disease 016 Hip joint replacement status 08/08/2016 Overview: Had Left Replaced Yrs Ago, dr tia Eller Trigger finger of right thumb 08/08/2016 ADVANCE DIRECTIVE INFORMATION 08/18/2006 Overview: No, Advance Directive brochure given to patient. 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 SUMMARY: Goal: Establish test [...] study staff at ; after hours Manager Document via the [facility] edging machine operator . Please contact study team before resolving/deleting from patients problem list. Study phone number: [phone]. Diagnosis changed due to Research Module. Go to Snapshot for study details. Encounter for examination fo r normal comparison and control in clinical research program 11/21/2017 06/30/2022 Overview: DO NOT DELETE - [facility] DETECT Study: Project # [id number], Manager Document: Mykel Gill, MS, MPH. SUMMARY: Goal: Establish [...] study staff at ; after hours Manager Document via the [facility] edging machine operator . - Please contact study team before resolving/deleting from patients problem list. Study phone number: [phone]. Diagnosis changed due to Research Module. Go to Snapshot for study details. documented as of this encounter (statuses as of 09/19/2023) Immunizations Name Administration Dates Next Due Covid-19 [...] alcohol) socially mixed drink whiskey club soda, PHQ-2 Answer Date Recorded PHQ Adult Total Score 0 08/25/2022 Hunger Vital Sign Answer Date Recorded Within the past 12 months, y ou worried that your food would run out before you got the money to buy more. Never true 03/09/20 23 Within the past 12 months, t he food you bought just didn't last and you didn't have money to get more. Never true 03/09/2023 Sex and Gender Information Value Date Recorded Sex Assigned at Not on file Gender Identity Not on file Sexual Orientation Not on file Job Start Date Occupation Industry Not on file Not on file Not on file documented as of this encounter Last Filed Vital Signs Vital Sign Reading Time Taken Comments Blood Pressure 108/67 09/19/2023 12:39 PM EST Pulse 75 09/19/2023 12:39 PM EST Temperature 36.4 C (97.6 F) 09/19/2023 12:[address] Respiratory Rate 22 09/19/2023 12:39 PM EST Oxygen Saturation 98% 09/19/2023 12:39 PM EST Inhaled Oxygen Concentration - - Weight - [...] or making decisions? (5 years old or older) No 03/20/2023 documented as of this encounter Nursing Notes * Toshia Soni LPN - 09/19/2023 12:40 PM EST 1150: Pt arrived for Hydration. PIV in RAC. Pt tolerated well. VSS. Sp02 is 85% on RA. 98% on 2L 02. Daughter reports patient hasn't been drinking much fluids and is slowly declining. Pt is resting quietly at this time. 1420: Pt tolerated Hydration well. PIV left intact. Pt returning tomorrow for 1L NSS as well. Discharged in stable condition with daughter at side. documented in this encounter Plan of Treatment Upcoming Encounters Date Type Department Care Team (Late st Contact Info) Description 09/20/2023 1:00 PM EST Hem/Onc Treatment Hematology/Oncology Treatment, [place] [address] [place] [address] Deborah, Chair 7 Hem Onc [address] [place] [address] 10/03/2023 9:30 AM EST Office Visit Hematology/Oncology [facility] Deborah [address] [place] [address] Fatimah Wallace CRNP [address] [place] [address] [place] [address] 10/10/2023 2:30 PM EST Telemedicine Palliative Medicine, [facility] [address] [facility] 5th Floor [place] [address] Fatimah Hartman CRNP [address] [facility] [place], [place] [address] Health Maintenance Due Date Last Done Comments DXA Scan 02/08/2020 02/07/2017, 01/29, 02/20/2014, Additional history exists Zoster Vaccines (2 of 2) 10/20/2022 08/25/2022 Pneumococcal Vaccine: 65+ Years (2 - PCV) 11/04/2022 11/04/2021 COVID-19 Vaccine (2 - 2022- season) 2023 11/23/2021 Influenza Vaccine (FLU shot) (#1) 2023 Depression Screening 08/25/2023 08/25/2022 DTaP,Tdap,and Td Vaccines (4 - [...] as of this encounter Visit Diagnoses Diagnosis Dehydration- Primary 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) documented in this encounter Administered Medications Active Administered Medications - up to 3 most recent administrations Medication Order MAR Action Action Date Dose Rate Site hEParin 100 UNIT/ML Lock Flush inj 500 Units 500 Units (5 mL), IV Lock, PRN Other, IV Flush, Starting on Mon09/19/23 at 1227, Until Mon09/20/23 at 1226, For 24 hours, Do not flush if lock, PICC, or central line not in place; IV infusing or unable to flush. Given 09/19/2023 2:09 PM EST 500 Units sodium chloride 0.9 % flush central line 10 mL 10 mL, IV Push, PRN Other, IV Flush, Starting on Mon09/19/23 at 1227, Until Mon09/20/23 at 1226, For 24 hours, Do not flush if lock, PICC, or central line not in place; IV infusing or unable to flush. Given 09/19/2023 2:09 PM EST 10 mL Inactive Administered Medications - up to 3 most recent administrations Medication Order MAR Action Action Date Dose Rate Site NSS infusion FOR HYDRATION Intravenous, at 500 mL/hr Administer over 2 Hours, ONCE, 1 dose, On Mon09/19/23 at 1330 Start Infusion 09/19/2023 12:14 PM EST 1,000 mL 500 mL/hr documented in this encounter Advance Directives Documents on File Type Date Recorded Patient Janitor Helper Expl anation POLST 07/27/2023 11:14 AM POLST Advance Directives and Living Will 06/24/2022 ADVANCE DIRECTIVE / LIVING WILL Power of Veterinarian Laboratory Animal Care 06/24/2022 POWER OF A TTORNEY Latest Code Status on File Code Status Date Activated Date Inactivated Comments No Code 03/20/2023 1:42 AM 03/21/2023 5:59 PM This order reflects the patients wishes and were consensually agreed upon. Question Answer Comments Discussion of Advance Directives occurred with: Patient Care Teams Business System Consultant Relationship Specialty Start Date End Date Antonio Loza MD [address] [place] [address] PCP - General Family Medicine 07/13/23 documented as of this encounter
--- OUTSIDE RECORDS SUMMARY | 2023-09-26 17:37 | External Medical Summary | Summary of Care ---
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 60 Tablet 0 09/15/2023 10/15/2023 Active Magnesium Oxide -Mg Supplement 400 (240 Mg) MG Oral Tablet (Mag-Ox)Indicatio ns: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 60 Tablet 0 09/19/2023 Active Sodium Chloride 1 GM Oral TabletIndications :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 60 Tablet 0 09/19/2023 Active documented as of this encounter (statuses as of 09/20/2023) Active Problems Problem Noted Date Diagnosed Date [...] as of this encounter (statuses as of 09/20/2023) Resolved Problems Problem Noted Date Diagnosed Date Resolved Date Encounter for examination fo r normal comparison and control in clinical research program 11/21/2017 06/01/2020 Overview: DO NOT DELETE [employer] DETECT Study: Project # [id number], Supervisor Cooler Service: Khadar Dodd, PhD. SUMMARY: Goal: Establish test [...] study staff at ; after hours Supervisor Cooler Service via the [facility] serging machine operator . Please contact study team before resolving/deleting from patients problem list. Study phone number: [phone]. Diagnosis changed due to Research Module. Go to Snapshot for study details. Encounter for examination fo r normal comparison and control in clinical research program 11/21/2017 06/30/2022 Overview: DO NOT DELETE - [employer] DETECT Study: Project # [id number], Supervisor Cooler Service: Mykel Gill, MS, MPH. SUMMARY: Goal: Establish [...] study staff at ; after hours Supervisor Cooler Service via the [facility] hospital serging machine operator . - Please contact study team before resolving/deleting from patients problem list. Study phone number: [phone]. Diagnosis changed due to Research Module. Go to Snapshot for study details. documented as of this encounter (statuses as of 09/20/2023) Immunizations Name Administration Dates Next Due Covid-19 [...] Sign Reading Time Taken Comments Blood Pressure 130/72 09/20/2023 1:51 PM EST Pulse 75 09/20/2023 1:51 PM EST Temperature 36.9 C (98.5 F) 09/20/2023 1:51 PM ES T Respiratory Rate 18 09/20/2023 1:51 PM EST Oxygen Saturation 92% 09/20/2023 1:51 PM EST Inhaled Oxygen Concentration - - [...] Nursing Notes * Toshia Soni LPN - 09/20/2023 1:51 PM EST 1315: Pt arrived for Hydration infusion. PIV in RFA. Intact from yesterday. Good blood flow. Clean,dry and intact. VSS. Pt is resting quietly at this time. 1525: Pt tolerated Hydration well. PIV removed intact. Pt discharged in stable condition with family at side. Instructed to call in if pt needs any further hydration. documented in this encounter Plan of Treatment Upcoming Encounters Date Type Department Care Team (Late st Contact Info) Description 10/03/2023 9:30 AM EST Office Visit Hematology/Oncology [facility] Cabrera [place] [address] [place] [address] Fat[facility]ah Wallace CR[facility] [address] [facility] [place] [address] 10/10/2023 2:30 PM EST Telemedicine Palliative Medicine, [facility] [address] [facility] 5th Floor [place] [address] Minnie FatimahDAVID [address] [facility] [address] Health Maintenance Due Date Last Done Comments [...] Lock, PRN Other, IV Flush, Starting on 09/20/23 at 1321, Until Alexus 09/21/23 at 1320, For 24 hours, Do not flush if lock, PICC, or central line not in place; IV infusing or unable to flush. sodium chloride 0.9 % flush central line 10 mL 10 mL, IV Push, PRN Other, IV Flush, Starting on Mon09/20/23 at 1321, Until Alexus 09/21/23 at 1320, For 24 hours, Do not flush if lock, PICC, or central line not in place; IV infusing or unable to flush. Inactive Administered Medications - up to 3 most recent administrations Medication Order MAR Action Action Date Dose Rate Site NSS infusion FOR HYDRATION Intravenous, at 500 mL/hr Administer over 2 Hours, ONCE, 1 dose, On Mon09/20/23 at 1430 Start Infusion 09/20/2023 1:21 PM EST 1,000 mL 500 mL/hr documented in this encounter Advance Directives Documents on File Type Date Recorded Patient Inside Phone Sales Expl anation POLST 07/27/2023 11:14 AM POLST Advance Directives and Living Will 06/24/2022 ADVANCE DIRECTIVE / LIVING WILL Power of Emergency Room Clinician 06/24/2022 POWER OF A TTORNEY Latest Code Status on File Code Status Date Activated Date Inactivated Comments No Code 03/20/2023 1:42 AM 03/21/2023 5:59 PM This order reflects the patients wishes and were consensually agreed upon. Question Answer Comments Discussion of Advance Directives occurred with: Patient Care Teams Shank Archer Relationship Specialty Start Date End Date Antonio Loza MD [address] [place] [address] PCP - General Family Medicine 07/13/23 documented as of this encounter
--- OUTSIDE RECORDS SUMMARY | 2023-09-26 17:37 | External Medical Summary | Summary of Care ---
Author Name Unknown Organization [facility] Address [address] [place] [address] Phone [phone] Care Team Providers Care Border Measurer Name Role Phone Antonio Loza MD Primary Care Provider [phone] Reason for Visit * Reason Onset Date Comments Medication Refill 09/15/2023 Encounter Details Date Type Department Care Team (Late st Contact Info) Description 09/15/2023 Refill Palliative Medicine [facility] [address] [place] [address] Cherise Hartman CRNP [address] [place] [address] Cancer related pain Allergies No known active allergiesdocumented as of this encounter (statuses as of 09/18/2023) Medications Medication Sig Dispensed Refills Start Date [...] 0 Active Ondansetron HCl 8 MG Oral TabletIndication s:Chemotherapy induced nausea and vomiting,Bilater al pulmonary embolism (HCC),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 30 Tablet 0 07/17/2023 Active Prochlorperazine Maleate 10 MG Oral Tablet (Compazine)Indic ations:Chemother apy induced nausea and vomiting,Bilater al pulmonary embolism (HCC),Primary cancer of left upper [...] a day 60 Tablet 0 08/18/2023 Active Magnesium Oxide -Mg Supplement 400 (240 Mg) MG Oral Tablet (Mag-Ox) Take 1 tablet (400mg) by mouth twice a day 60 Tablet 0 08/18/2023 Active Sodium Chloride 1 GM Oral Tablet Take 1 tablet (1000mg) by mouth twice a day 60 Tablet 0 08/18/2023 Active Metoprolol Succinate ER 50 MG Oral Tablet Extended Release 24 Hour (toPROL XL) Take 2 tablets (100mg) by mouth daily in the morning 60 Tablet 0 08/18/2023 Active Apixaban 5 MG Oral Tablet (Eliquis)Indicat ions: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 60 Tablet 5 08/21/2023 Active oxyCODONE HCl 5 MG Oral Tablet (Oxy IR)Indications:P rimary cancer of left upper lobe of lung (HCC) Take 2 Tablets by mouth every 4 hours as needed for Moderate Pain 60 Tablet 0 09/15/2023 Active Morphine Sulfate ER 15 MG Oral Tablet Extended Release (Ms Contin)Indicatio ns:Cancer related pain Take 1 Tablet by mouth in the morning and 1 Tablet before bedtime. 60 Tablet 0 09/15/2023 3 Active Morphine Sulfate ER 15 MG Oral Tablet Extended Release (Ms Contin)Indicatio ns:Cancer related pain Take 1 Tablet by mouth in the morning and 1 Tablet before bedtime. 0 09/06/2023 3 Discontinue d(Refill) documented as of this encounter (statuses as of 09/18/2023) Active Problems Problem Noted Date Diagnosed Date Primary cancer of left upper lobe [...] as of this encounter (statuses as of 09/18/2023) Resolved Problems Problem Noted Date Diagnosed Date Resolved Date Encounter for examination fo r normal comparison and control in clinical research program 11/21/2017 06/01/2020 Overview: DO NOT DELETE [facility] DETECT Study: Project # [id number], Chicken Raiser: Khadar Dodd, PhD. SUMMARY: Goal: Establish test [...] contact study staff at ; after hours Chicken Raiser via the [facility] hospital stranding machine operator helper . Please contact study team before resolving/deleting from patients problem list. Study phone number: [phone]. Diagnosis changed due to Research Module. Go to Snapshot for study details. Encounter for examination fo r normal comparison and control in clinical research program 11/21/2017 06/30/2022 Overview: DO NOT DELETE - [facility] DETECT Study: Project # [id number], Chicken Raiser: Mykel Gill, MS, MPH. SUMMARY: Goal: Establish [...] contact study staff at ; after hours Chicken Raiser via the [facility] hospital stranding machine operator helper . - Please contact study team before resolving/deleting from patients problem list. Study phone number: [phone]. Diagnosis changed due to Research Module. Go to Snapshot for study details. documented as of this encounter (statuses as of 09/18/2023) Immunizations Name Administration Dates Next Due Covid-19 [...] encounter Miscellaneous Notes * Telephone Encounter - Tana Cai LPN - 09/18/2023 8:36 AM EST Call to pharmacy They did receive the script No issues * Telephone Encounter - Iqra Rodrigues fiber optics technician - 09/15/2023 3:45 PM EST Erin heredia, pharmacy does not have script yet. Please re-send or call in. Pharmacy closes at 5pm. Erin [phone] Thank you, Iqra Rodrigues Bottom Precipitator Operator 09/15/2023,3:45 PM * Telephone Encounter - Cherise Hartman CRNP - 09/15/2023 9:54 AM ESTSigned Prescriptions: Disp Refills Morphine Sulfate ER 15 MG Oral Tablet Exte*60 Tab*0 Sig: Take 1 Tablet by mouth in the morning and 1 Tablet before bedtime.Authorizing Provider: CHERISE HARTMAN--- * Telephone Encounter - Cherise Hartman CRNP - 09/15/2023 9:54 AM EST I have reviewed the patients controlled substance dispensing history in the Prescription Drug Monitoring Program in compliance with the [place] regulations before prescribing a controlled substance. MS Contin refilled. * Telephone Encounter - Tana Cai LPN - 09/15/2023 9:35 AM ESTPending Prescriptions: Disp Refills Morphine Sulfate ER 15 MG Oral Tablet Exte*60 Tab*0 Sig: Take 1 Tablet by mouth in the morning and 1 Tablet before bedtime. * Telephone Encounter - Tana Cai LPN - 09/15/2023 9:35 AM EST I have reviewed the patients controlled substance dispensing history in the Prescription Drug Monitoring Program in compliance with the [place] regulations before prescribing a controlled substance. Were any discrepancies found:no Last prescribed 08/28 Last Filled 08/30 RX Due 09/14 * Telephone Encounter - Iqra Rodrigues, fiber optics technician - 09/15/2023 9:32 AM EST Patient daughter requesting refill of medication. Stating patient has enough for tonight. Asking for return call when sent to pharmacy. Erin [phone] Thank you, Iqra Rodrigues Bottom Precipitator Operator 09/15/2023,9:33 AM * Telephone Encounter - Iqra Rodrigues fiber optics technician - 09/15/2023 9:31 AM EST Did you pend patient's preferred pharmacy and medication before forwarding?yes Pharmacy: [facility] Pending Prescriptions: Disp Refills Morphine Sulfate ER 15 MG Oral Tablet Ext*60 Tab*0 Sig: Take 1 Tablet by mouth in the morning and 1 Tablet before bedtime. Last Visit: Visit date not found (in office), 09/06/2023 (telemedicine) Next Visit: Visit date not found If no future appointments scheduled, and last appointment is greater than a year ago, please schedule patient for a follow-up appointment Last date the medication was ordered: 09/06/23 Is this request for a controlled substance?No Urine Drug Screen:No results found for this or any previous visit. Patient Phone Numbers Labs: Lab Results Component Value Date/Time CREAT 0.8 09/08/2023 10:51 AM CREAT 0.9 01/25/2017 09:57 AM POTASSIUM 4.1 09/08/2023 10:51 AM POTASSIUM 4.6 01/25/2017 09:57 AM TSH 1.34 09/08/2023 10:51 AM TSH 1.48 01/25/2017 09:57 AM LDLCALC 100 03/11/2023 09:05 AM LDLCALC 140 (A) 10/17/2022 12:00 AM LDLCALC 128 01/25/2017 09:57 AM LDLDIRECT NOT APPLICABLE 01/25/2017 09:57 AM ALT 13 09/08/2023 10:51 AM ALT 15 01/25/2017 09:57 AM HGBA1C 5.6 08/19/2021 12:19 PM documented in this encounter Plan of Treatment Upcoming Encounters Date Type Department Care Team (Late st Contact Info) Description 10/03/2023 9:30 AM EST Office Visit Hematology/Oncology [facility] [place] [address] [facility] [place], [place] [address] Cherise Wallace CRNP 400 [facility], [place] [address] 10/10/2023 2:30 PM EST Telemedicine Palliative Medicine, [facility] 400 [facility] 5th Floor [place] [address] Cherise Hartman CRNP 400 [facility], [place] [address] Health Maintenance Due Date Last Done Comments [...] as of this encounter Visit Diagnoses Diagnosis Cancer related pain Neoplasm related pain (acute) (chronic) documented in this encounter Advance Directives Documents on File Type Date Recorded Patient Customer Service Assistant Expl anation POLST 07/27/2023 11:14 AM POLST Advance Directives and Living Will 06/24/2022 ADVANCE DIRECTIVE / LIVING WILL Power of Oven Heater Helper 06/24/2022 POWER OF A TTORNEY Latest Code Status on File Code Status Date Activated Date Inactivated Comments No Code 03/20/2023 1:42 AM 03/21/2023 5:59 PM This order reflects the patients wishes and were consensually agreed upon. Question Answer Comments Discussion of Advance Directives occurred with: Patient Care Teams Border Measurer Relationship Specialty Start Date End Date Antonio Loza MD [address] [address] PCP - General Family Medicine 07/13/23 documented as of this encounter
--- OUTSIDE RECORDS SUMMARY | 2023-09-26 17:37 | External Medical Summary | Summary of Care ---
Author Name Unknown Organization [facility] Address [address] [place] [address] Phone [phone] Care Team Providers Care Veneer Stock Grader Name Role Phone Antonio Loza MD Primary Care Provider [phone] Reason for Visit * Reason Onset Date Comments Medication Refill 09/15/2023 Encounter Details Date Type Department Care Team (Late st Contact Info) Description 09/15/2023 Refill Palliative Medicine [facility] [address] [place] [address] Cherise Hartman CRNP [address] [place] [address] Cancer related pain Allergies No known active allergiesdocumented as of this encounter (statuses as of 09/15/2023) Medications Medication Sig Dispensed Refills Start Date [...] as of this encounter (statuses as of 09/15/2023) Active Problems Problem Noted Date Diagnosed Date [...] as of this encounter (statuses as of 09/15/2023) Resolved Problems Problem Noted Date Diagnosed Date Resolved Date Encounter for examination fo r normal comparison and control in clinical research program 11/21/2017 06/01/2020 Overview: DO NOT DELETE [facility] DETECT Study: Project # [id number], Commercial Loan Analyst: Khadar Dodd, PhD. SUMMARY: Goal: Establish [...] contact study staff at ; after hours Commercial Loan Analyst via the [facility] hospital gas burner operator . Please contact study team before resolving/deleting from patients problem list. Study phone number: [phone]. Diagnosis changed due to Research Module. Go to Snapshot for study details. Encounter for examination fo r normal comparison and control in clinical research program 11/21/2017 06/30/2022 Overview: DO NOT DELETE - [facility] DETECT Study: Project # [id number], Commercial Loan Analyst: Mykel Gill, MS, MPH. SUMMARY: Goal: [...] contact study staff at ; after hours Commercial Loan Analyst via the [facility] hospital gas burner operator . - Please contact study team before resolving/deleting from patients problem list. Study phone number: [phone]. Diagnosis changed due to Research Module. Go to Snapshot for study details. documented as of this encounter (statuses as of 09/15/2023) Immunizations Name Administration Dates Next Due Covid-19 [...] encounter Miscellaneous Notes * Telephone Encounter - Iqra Rodrigues bottle packing machine cleaner - 09/15/2023 3:45 PM EST Erin heredia, pharmacy does not have script yet. Please re-send or call in. Pharmacy closes at 5pm. Erin [phone] Thank you, Iqra Rodrigues Program And Research Coordinator 09/15/2023,3:45 PM * Telephone Encounter - Cherise [...] regulations before prescribing a controlled substance. MS Abbie refilled. * Telephone Encounter - Tana Cai [...] Due 09/14 * Telephone Encounter - Iqra Rodrigues bottle packing machine cleaner - 09/15/2023 9:32 AM EST Patient daughter requesting refill of medication. Stating patient has enough for tonight. Asking for return call when sent to pharmacy. Erin [phone] Thank you, Iqra Rodrigues Program And Research Coordinator 09/15/2023,9:33 AM * Telephone Encounter - Iqra Rodrigues bottle packing machine cleaner - 09/15/2023 9:31 AM EST Did you pend patient's preferred pharmacy and medication before forwarding?yes Pharmacy: [facility] Pending Prescriptions: Disp Refills Morphine Sulfate [...] AM EST Office Visit Hematology/Oncology [facility]rera [place] [facility] [address] Cherise Wallace CRNP 400 [facility] [place] [id number] 10/10/2023 2:30 PM EST Telemedicine Palliative Medicine, [facility] 400 [facility] 5th Floor [place] [address] Cherise Hartman CRNP [address] [place] [address] Health Maintenance Due Date Last Done Comments DXA Scan 02/08/2020 02/07/2017, 01/29, 02/20/2014, Additional history exists Zoster Vaccines (2 of 2) 10/20/2022 08/25/2022 Pneumococcal Vaccine: 65+ Years (2 - PCV) 11/04/2022 11/04/2021 COVID-19 Vaccine (2 - 2022-24 season) 2023 11/23/2021 Influenza Vaccine (FLU shot) [...] Documents on File Type Date Recorded Patient Supervisor Newspaper Deliveries Expl anation POL 07/27/2023 11:14 AM POLST Advance Directives and Living Will 06/24/2022 ADVANCE DIRECTIVE / LIVING WILL Power of Outdoor Adventure Guides 06/24/2022 POWER OF A TTORNEY Latest Code Status on File Code Status Date Activated Date Inactivated Comments No Code 03/20/2023 1:42 AM 03/21/2023 5:59 PM This order reflects the patients wishes and were consensually agreed upon. Question Answer Comments Discussion of Advance Directives occurred with: Patient Care Teams Veneer Stock Grader Relationship Specialty Start Date End Date Antonio Loza MD [address] [place] [address] PCP - General Family Medicine 07/13/23 documented as of this encounter
--- OUTSIDE RECORDS SUMMARY | 2023-09-26 17:37 | External Medical Summary | Summary of Care ---
Author Name Unknown Organization [facility] Address [address] [place] [address] Phone [phone] Care Team Providers Care Maintenance Worker Municipal Name Role Phone Antonio Loza MD Primary Care Provider [phone] [phone] Encounter Details Date Type Department Care Team (Late st Contact Info) Description 09/18/2023 Orders Only Hematology/Oncology, [facility] [address] [place], [place] [id number] Hesham Bray MD [address] [place], [place] [id number] Allergies No known active allergiesdocumented as of [...] Overview: DO NOT DELETE [facility] AREN Study: Project # [id number], Dural Mechanic: Khadar Dodd, PhD. SUMMARY: Goal: Establish test [...] contact study staff at ; after hours Dural Mechanic via the [facility] hospital light rail vehicle operator . Please contact study team before resolving/deleting from patients problem list. Study phone number: [phone]. Diagnosis changed due to Research Module. Go to Snapshot for study details. Encounter for examination fo r normal comparison and control in clinical research program 11/21/2017 06/30/2022 Overview: DO NOT DELETE - [employer] DETECT Study: Project # [id number], Dural Mechanic: Mykel Gill, MS, MPH. SUMMARY: Goal: Establish [...] contact study staff at ; after hours Dural Mechanic via the [facility] hospital light rail vehicle operator . - Please contact study team before resolving/deleting from patients problem list. Study phone number: [phone]. Diagnosis changed due to Research Module. Go [...] 10/03/2023 9:30 AM EST Office Visit Hematology/Oncology [facility] 200 [place] [address] Fatimah Wallace CRNP 400 [place] [address] 10/10/2023 2:30 PM EST Telemedicine Palliative Medicine, [facility] 400 [facility] 5th Floor [place] [address] Fatimah Hartman CRNP [address] [place] [address] Health Maintenance Due Date Last Done Comments [...] Documents on File Type Date Recorded Patient Senior Administrative Associate Expl anation POLST 07/27/2023 11:14 AM POLST Advance Directives and Living Will 06/24/2022 ADVANCE DIRECTIVE / LIVING WILL Power of Beef Grader 06/24/2022 POWER OF A TTORNEY Latest Code Status on File Code Status Date Activated Date Inactivated Comments No Code 03/20/2023 1:42 AM 03/21/2023 5:59 PM This order reflects the patients wishes and were consensually agreed upon. Question Answer Comments Discussion of Advance Directives occurred with: Patient Care Teams Maintenance Worker Municipal Relationship Specialty Start Date End Date Antonio Loza MD [address] [facility] [place] [address] PCP - General Family Medicine 07/13/23 documented as of this encounter
--- OUTSIDE RECORDS SUMMARY | 2023-09-26 17:37 | External Medical Summary | Summary of Care ---
Author Name Unknown Organization [facility] Address [address] [place] [address] Phone [phone] Care Team Providers Care Manager Transfusion Name Role Phone Antonio Loza MD Primary Care Provider [phone] Encounter Details Date Type Department Care Team (Late st Contact Info) Description 09/19/2023 Orders Only Hematology/Oncology, [facility] [address] [place], [place] [phone] Hesham Bray MD [address] [place], [place] [id number] Allergies No known active allergiesdocumented as of [...] [facility] DETECT Study: Project # [id number], Apprentice Cook: Khadar Dodd, PhD. SUMMARY: Goal: Establish test [...] contact study staff at ; after hours Apprentice Cook via the [facility] hospital lever operator . Please contact study team before resolving/deleting from patients problem list. Study phone number: [phone]. Diagnosis changed due to Research Module. Go to Snapshot for study details. Encounter for examination fo r normal comparison and control in clinical research program 11/21/2017 06/30/2022 Overview: DO NOT DELETE - [employer] DETECT Study: Project # [id number], Apprentice Cook: Mykel Gill, MS, MPH. SUMMARY: Goal: Establish [...] contact study staff at ; after hours Apprentice Cook via the [facility] hospital lever operator . - Please contact study team before resolving/deleting from patients problem list. Study phone number: [phone]. Diagnosis changed due to Research Module. Go [...] 1:00 PM EST Hem/Onc Treatment Hematology/Oncology [address], [address] [address] Deborah, Chair [address] [place] [address] 10/03/2023 9:30 AM EST Office Visit Hematology/Oncology [address] [place] [address] Fatimah Wallace CRNP [address] [place] [address] 10/10/2023 2:30 PM EST Telemedicine Palliative Medicine, [facility] [address] [facility] 5th [place] [address] Fatimah Hartman CRNP [address] [place] [address] Health Maintenance Due Date Last Done Comments DXA Scan 02/08/2020 02/07/2017, 01/29, 02/20/2014, Additional history exists Zoster Vaccines (2 of 2) 10/20/2022 08/25/2022 Pneumococcal Vaccine: 65+ Years (2 - PCV) 11/04/2022 11/04/2021 COVID-19 Vaccine (2 - 24 season) 2023 11/23/2021 Influenza Vaccine (FLU shot) [...] Documents on File Type Date Recorded Patient Grocery Department Manager Expl anation POLST 07/27/2023 11:14 AM POLST Advance Directives and Living Will 06/24/2022 ADVANCE DIRECTIVE / LIVING WILL Power of Clinical Lab Clerk 06/24/2022 POWER OF A TTORNEY Latest Code Status on File Code Status Date Activated Date Inactivated Comments No Code 03/20/2023 1:42 AM 03/21/2023 5:59 PM This order reflects the patients wishes and were consensually agreed upon. Question Answer Comments Discussion of Advance Directives occurred with: Patient Care Teams Manager Transfusion Relationship Specialty Start Date End Date Antonio Loza MD [address] [place] [address] PCP - General Family Medicine 07/13/23 documented as of this encounter
--- OUTSIDE RECORDS SUMMARY | 2023-09-26 17:38 | External Medical Summary ---
Author Name Unknown Address Unknown Organization [id number]:[facility] [address] [place] [address] Laboratory Report Ordering Provider Test Date Status NESS PADILLA 09/08/2023 10:51:26 Final Observation Date Value Abnormality Reference (Units ) Status BUN 09/08/2023 10:51:26 14 6-20 (mg/dL) Final Creatinine 09/08/2023 10:51:26 0.8 0.5-1.0 (mg/dL) Final Glomerular filtration rate/1.73 sq M.predicted [Volume Rate/Area] in Serum, Plasma or Blood by Creatinine-based formula (CKD-EPI) 09/08/2023 10:51:26 75 >=60 (mL/min) Final eGFR is calculated based on the CKD-EPI 2020 equation SODIUM 09/08/2023 10:51:26 131 Below low normal 135 -146 (mmol/L) Final Potassium 09/08/2023 10:51:26 4.1 3.5-5.1 (m mol/L) Final Cl 09/08/2023 10:51:26 91 Below low normal 98- 107 (mmol/L) Final CO2 09/08/2023 10:51:26 28 22-32 (mmo l/L) Final Anion gap 09/08/2023 10:51:26 12 7-15 (mmol /L) Final Glucose 09/08/2023 10:51:26 125 Above high normal 70 -120 (mg/dL) Final Albumin 09/08/2023 10:51:26 2.8 Below low normal 3.8 -5.0 (g/dL) Final AST (Aspartate aminotransferase) 09/08/2023 10:51:26 31 10-35 (U/L) Fin al Alk Phos 09/08/2023 10:51:26 110 35-130 (U/ L) Final Bilirubin, Total 09/08/2023 10:51:26 0.4 <=1 .2 (mg/dL) Final Calcium 09/08/2023 10:51:26 9.3 8.4-10.2 ( mg/dL) Final Protein 09/08/2023 10:51:26 7.8 6.0-8.3 (g /dL) Final ALT (Alanine aminotransferase) 09/08/2023 10:51:26 13 10-35 (U/L) Emmanuel dunbar Performing Location [facility] [address] [facility] [address]
--- OUTSIDE RECORDS SUMMARY | 2023-09-26 17:38 | External Medical Summary ---
Author Name Unknown Address Unknown Organization [id number]:[facility] - [address] [place] [address] Laboratory Report Ordering Provider Test Date Status NESS PADILLA 09/08/2023 10:51:26 Final Observation Date Value Abnormality Reference (Units ) Status TSH 09/08/2023 10:51:26 1.34 0.27-4.20 (uIU/mL) Final Performing Location [facility] [address] [place] [address]
--- OUTSIDE RECORDS SUMMARY | 2023-09-26 17:38 | External Medical Summary | Summary of Care ---
Author Name Unknown Organization [facility] Address [address] [place] [address] Phone [phone] Care Team Providers Care Kettle Firer Name Role Phone Antonio Loza MD Primary Care Provider [phone] Reason for Visit * Reason Onset Date Comments Palliative Care Follow-up 09/11/2023 Encounter Details Date Type Department Care Team (Late st Contact Info) Description 09/11/2023 Telephone Palliative Medicine, [facility] [address] [place] [address] Fatimah Hartman CRNP [address] [place] [address] Palliative Care Follow-up Allergies No known active allergiesdocumented as of this encounter (statuses as of 09/11/2023) Medications Medication Sig Dispensed Refills Start Date [...] 0 Active Ondansetron HCl 8 MG Oral TabletIndications: Chemotherapy induced nausea and vomiting,Bilateral pulmonary embolism (HCC),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 60 Tablet 5 08/21/2023 Active Morphine Sulfate ER 15 MG Oral Tablet Extended Release (Ms Contin)Indications :Cancer related pain Take 1 Tablet by mouth in the morning and 1 Tablet before bedtime. 0 09/06/2023 Active oxyCODONE HCl 5 MG Oral Tablet (Oxy IR)Indications:Gladys conchita cancer of left upper lobe of lung (HCC) Take 2 Tablets by mouth every 4 hours as needed for moderate Pain, 60 Tablet 0 09/06/2023 Active documented as of this encounter (statuses as of 09/11/2023) Active Problems Problem Noted Date Diagnosed Date [...] as of this encounter (statuses as of 09/11/2023) Resolved Problems Problem Noted Date Diagnosed Date Resolved Date Encounter for examination fo r normal comparison and control in clinical research program 11/21/2017 06/01/2020 Overview: DO NOT DELETE [facility] AREN Study: Project # [id number], Cathode Builder: Khadar Dodd, PhD. SUMMARY: Goal: Establish [...] contact study staff at ; after hours Cathode Builder via the [facility] hospital sewing machine operator floorperson . Please contact study team before resolving/deleting from patients problem list. Study phone number: [phone]. Diagnosis changed due to Research Module. Go to Snapshot for study details. Encounter for examination fo r normal comparison and control in clinical research program 11/21/2017 06/30/2022 Overview: DO NOT DELETE - [facility] DETECT Study: Project # [id number], Cathode Builder: Mykel Gill, MS, MPH. SUMMARY: Goal: [...] contact study staff at ; after hours Cathode Builder via the [facility] hospital sewing machine operator floorperson . - Please contact study team before resolving/deleting from patients problem list. Study phone number: [phone]. Diagnosis changed due to Research Module. Go to Snapshot for study details. documented as of this encounter (statuses as of 09/11/2023) Immunizations Name Administration Dates Next Due Covid-19 [...] Care Team (Late st Contact Info) Description 10/10/2023 2:30 PM EST Telemedicine Palliative Medicine, [facility] [address] [place] [id number] Fatimah Hartman CRNP [address] [place] [address] Health Maintenance Due Date Last Done Comments [...] Documents on File Type Date Recorded Patient Watch Band Assembler Expl anation POLST 07/27/2023 11:14 AM POLST Advance Directives and Living Will 06/24/2022 ADVANCE DIRECTIVE / LIVING WILL Power of Social Science Research Assistant 06/24/2022 POWER OF A TTORNEY Latest Code Status on File Code Status Date Activated Date Inactivated Comments No Code 03/20/2023 1:42 AM 03/21/2023 5:59 PM This order reflects the patients wishes and were consensually agreed upon. Question Answer Comments Discussion of Advance Directives occurred with: Patient Care Teams Kettle Firer Relationship Specialty Start Date End Date Antonio Loza MD [address] [place] [address] PCP - General Family Medicine 07/13/23 documented as of this encounter
--- OUTSIDE RECORDS SUMMARY | 2023-09-26 17:38 | External Medical Summary ---
Author Name Unknown Address Unknown Organization [id number][facility] [address] [place] [address] Laboratory Report Ordering Provider Test Date Status NESS PADILLA 09/08/2023 10:51:26 Final Observation Date Value Abnormality Reference (Units ) Status WBC, Total 09/08/2023 10:51:26 12.91 Above high normal 4 .00-10.80 (K/uL) Final RBC 09/08/2023 10:51:26 3.46 3.85-5.15 (M/uL) Final Hemoglobin 09/08/2023 10:51:26 9.3 Below low normal 12 .0-15.3 (g/dL) Final HCT 09/08/2023 10:51:26 28.8 Below low normal 36. 0-45.2 (%) Final MCV 09/08/2023 10:51:26 83.2 81.5-97.5 (fL) Final MCH 09/08/2023 10:51:26 26.9 27.0-34.0 (pg) Final MCHC 09/08/2023 10:51:26 32.3 32.0-36.0 (g/dL) Final RDW 09/08/2023 10:51:26 18.2 11.5-15.5 (%) Final Platelets 09/08/2023 10:51:26 551 Above high normal 14 0-400 (K/uL) Final MPV 09/08/2023 10:51:26 8.7 6.6-11.1 ( fL) Final Performing Location [facility] [address] [place] [address]
--- OUTSIDE RECORDS SUMMARY | 2023-09-26 17:38 | External Medical Summary ---
Author Name Unknown Address Unknown Organization [id number] [address] [place] [address] Laboratory Report Ordering Provider Test Date Status NESS PADILLA 09/08/2023 10:51:26 Final Observation Date Value Abnormality Reference (Units ) Status SYNC LEUKOCYTES IN BLOOD BY AUTOMATED COUNT 09/08/2023 10:51:26 12.91 Above high normal 4.00-10.80 (K/uL) Final Segs 09/08/2023 10:51:26 76.0 Above high normal 40.0-75.0 (%) Final Lymphs % 09/08/2023 10:51:26 11.8 Below low normal 18.0-42.0 (%) Final Monos 09/08/2023 10:51:26 11.5 Above high normal 1.0-11.0 (%) Final Eosinophils 09/08/2023 10:51:26 0.5 0.0-6.0 (%) Final Basos 09/08/2023 10:51:26 0.2 0.0-2.0 (%) Final Absolute Segs 09/08/2023 10:51:26 9.82 Above high normal 1.80-7.70 (K/uL) Final Lymphs, absolute 09/08/2023 10:51:26 1.52 1.00-4.80 (K/ul) Final Monos, Abs 09/08/2023 10:51:26 1.48 Above high normal 0.00-1.10 (K/uL) Final Eos, Abs 09/08/2023 10:51:26 0.07 0.00-0.70 (K/uL) Final Basos, Abs 09/08/2023 10:51:26 0.02 0.00-0.20 (K/uL) Final Performing Location LAB[facility]ATORY [facility] [address] [place] [address]
--- OUTSIDE RECORDS SUMMARY | 2023-09-26 17:38 | External Medical Summary ---
Author Name Unknown Address Unknown Organization K01:LABORATORY C - [address] [place] [address] Laboratory Report Ordering Provider Test Date Status NESS PADILLA 09/08/2023 10:51:26 Final Observation Date Value Abnormality Reference (Units ) Status LDH 09/08/2023 10:51:26 298 Above high normal <= 250 (U/L) Final Performing Location LABORATORY [facility] - [address] [place] [address]
--- OUTSIDE RECORDS SUMMARY | 2023-09-26 17:38 | External Medical Summary | Summary of Care ---
Author Name Unknown Organization [facility] Address [address] [place] [address] Phone [phone] Care Team Providers Care Route Rider Name Role Phone Antonio Loza MD Primary Care Provider [phone] Reason for Visit * Reason Onset Date Comments Pre Cert/Prior Auth 06/14/2023 Encounter Details Date Type Department Care Team (Late st Contact Info) Description 06/14/2023 Telephone Neurology, [place] [address] [place] [address] Hesham Bray MD [address] [facility] [place], [place] [id number] Pre Cert/Prior Auth Allergies No known active allergiesdocumented as of this encounter (statuses as of 09/13/2023) Medications Medication Sig Dispensed Refills Start Date [...] 0 Active Apixaban 5 MG Oral Tablet (Eliquis)Indicati ons: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 60 Tablet 1 05/13/2023 07/17/2023 Discontinued (Refill) documented as of this encounter (statuses as of 09/13/2023) Active Problems Problem Noted Date Diagnosed Date [...] as of this encounter (statuses as of 09/13/2023) Resolved Problems Problem Noted Date Diagnosed Date Resolved Date Encounter for examination fo r normal comparison and control in clinical research program 11/21/2017 06/01/2020 Overview: DO NOT DELETE [facility] AREN Study: Project # [id number], Head Of Mathematics: Khadar Dodd, PhD. SUMMARY: Goal: Establish test [...] contact study staff at ; after hours Head Of Mathematics via the [facility] hospital pony cylinder press operator . Please contact study team before resolving/deleting from patients problem list. Study phone number: [phone]. Diagnosis changed due to Research Module. Go to Snapshot for study details. Encounter for examination fo r normal comparison and control in clinical research program 11/21/2017 06/30/2022 Overview: DO NOT DELETE - [facility] DETECT Study: Project # [id number], Head Of Mathematics: Mykel Gill, MS, MPH. SUMMARY: Goal: Establish [...] contact study staff at ; after hours Head Of Mathematics via the [facility] hospital pony cylinder press operator . - Please contact study team before resolving/deleting from patients problem list. Study phone number: [phone]. Diagnosis changed due to Research Module. Go to Snapshot for study details. documented as of this encounter (statuses as of 09/13/2023) Immunizations Name Administration Dates Next Due Covid-19 [...] Telephone Encounter - Shavon Garza RN - 06/14/2023 12:40 PM EDT Referral notes that there is a current approval from 03/22/23- 04/20/24. * Telephone Encounter - Amparo Perez butcher or smallgoods maker - 06/14/2023 11:24 AM EDT Angela @ [facility] requesting PA for Sotorasib 120 MG Tabs She will be faxing form to Dr Bray's office. Thank You, Amparo Perez Etched Circuit Processor documented in this encounter Plan of Treatment Upcoming Encounters Date Type Department Care Team (Late st Contact Info) Description 10/03/2023 9:30 AM EST Office Visit Hematology/Oncology [facility] [address], [place] [address] Fatimah Wallace CRNP [address] [facility] [place] [address] 10/10/2023 2:30 PM EST Telemedicine Palliative Medicine, [facility] [address] [facility] 5[address] [place] [address] Fatimah Hartman CRNP [address] [place] [address] Health Maintenance Due Date Last Done Comments [...] Documents on File Type Date Recorded Patient Mold Making Plastics Sheets Supervisor Expl anation POLST 07/27/2023 11:14 AM POLST Advance Directives and Living Will 06/24/2022 ADVANCE DIRECTIVE / LIVING WILL Power of Aircraft Loadmaster Superintendent 06/24/2022 POWER OF A TTORNEY Latest Code Status on File Code Status Date Activated Date Inactivated Comments No Code 03/20/2023 1:42 AM 03/21/2023 5:59 PM This order reflects the patients wishes and were consensually agreed upon. Question Answer Comments Discussion of Advance Directives occurred with: Patient Care Teams Route Rider Relationship Specialty Start Date End Date Antonio Loza MD [address] [address] PCP - General Family Medicine 07/13/23 documented as of this encounter
--- OUTSIDE RECORDS SUMMARY | 2023-09-26 17:38 | External Medical Summary | Summary of Care ---
Author Name Unknown Organization [facility] Address [address] [place] [address] Phone [phone] Care Team Providers Care Corn Sheller Operator Name Role Phone Antonio Loza MD Primary Care Provider [phone] [phone] Reason for Visit * Reason Comments Follow Up F/U Encounter Details Date Type Department Care Team (Late st Contact Info) Description 09/11/2023 8:30 AM EST [facility] [place] [address] [facility] [place] [place] [address] Hesham Bray MD [address] [place] [address] Bilateral pulmonary embolism (HCC)*; Primary cancer of left upper lobe of [...] 11/21/2017 06/01/2020 Overview: DO NOT DELETE [facility]EN Study: Project # [id number], Auctioneer Automobile: Khadar Dodd, PhD. SUMMARY: Goal: Establish test [...] contact study staff at ; after hours Auctioneer Automobile via the [facility] hospital drill punch operator . Please contact study team before resolving/deleting from patients problem list. Study phone number: [phone]. Diagnosis changed due to Research Module. Go to Snapshot for study details. Encounter for examination fo r normal comparison and control in clinical research program 11/21/2017 06/30/2022 Overview: DO NOT DELETE - [employer] AREN Study: Project # [id number], Auctioneer Automobile: Mykel Gill, MS, MPH. SUMMARY: Goal: Establish [...] contact study staff at ; after hours Auctioneer Automobile via the [facility] hospital drill punch operator . - Please contact study team before resolving/deleting from patients problem list. Study phone number: [phone]. Diagnosis changed due to Research Module. Go [...] Sign Reading Time Taken Comments Blood Pressure 96/56 09/11/2023 8:46 AM EST Pulse 75 09/11/2023 8:46 AM EST Temperature 36.3 C (97.3 F) 09/11/2023 8:46 AM ES T Respiratory Rate 18 09/11/2023 8:46 AM EST Oxygen Saturation 93% 09/11/2023 8:46 AM EST Inhaled Oxygen Concentration - - Weight 45.5 kg (100 lb 6.4 oz) 09/11/2023 8:46 A M EST Height - - Body Mass Index 17.79 08/22/2023 1:50 PM EDT documented in this encounter Functional [...] as of this encounter Progress Notes * Katarina, Hesham Seals MD - 09/11/2023 8:46 AM EST Outpatient Consult Note Data Source: Patient, Epic record. Data Source: Patient, Epic record. 09/11/2023 8:46 AM [place] [id number] 78 year old Patient Encounter: HEMATOLOGY/ONCOLOGY [facility] Cancer Diagnosis: Transfer from Dr. Mitchell Metastatic lung cancer Current Treatment: carboplatin plus etoposide and atezolizumab Previous Treatment: Sotorasib, 04/28/2023 - 07/17/2023 and had disease progression Oncologic History : 78-year-old female with past [...] and sister was diagnosed of skin cancer. She was recently admitted to the hospital with the hyponatremia, atrial fibrillation with rapid ventricular rate and generalized weakness. She was followed by the palliative Care and Nephrology and Cardiology. She received 1 cycle of chemotherapy from 07/24/2023 to 07/26/2023. Interval History: She continues to complain generalized weakness and poor appetite. She is also complaining of increasing discomfort feeling in the left axillary area. LABS/IMAGING: Results for orders placed or performed in visit on 09/08/23 TSH WITH FREE T4 IF INDICATED Result Value Ref Range TSH 1.34 0.27 - 4.20 uIU/mL LD Result Value Ref Range LD 298 (H) <=250 U/L COMPREHENSIVE METABOLIC PANEL Result Value Ref Range BUN 14 6 - 20 mg/dL Creatinine 0.8 0.5 - 1.0 mg/dL Estimated Glomerular Filtration Rate 75 >=60 mL/min Sodium 131 (L) 135 - 146 mmol/L Potassium 4.1 3.5 - 5.1 mmol/L Chloride 91 (L) 98 - 107 mmol/L CO2 28 22 - 32 mmol/L Anion Gap 12 7 - 15 mmol/L Glucose 125 (H) 70 - 120 mg/dL Albumin 2.8 (L) 3.8 - 5.0 g/dL AST 31 10 - 35 U/L Alkaline Phosphatase 110 35 - 130 U/L Bilirubin, Total 0.4 <=1.2 mg/dL Calcium 9.3 8.4 - 10.2 mg/dL Protein 7.8 6.0 - 8.3 g/dL ALT 13 10 - 35 U/L CBC Result Value Ref Range WBC 12.91 (H) 4.00 - 10.80 K/uL RBC 3.46 3.85 - 5.15 M/uL HGB 9.3 (L) 12.0 - 15.3 g/dL HCT 28.8 (L) 36.0 - 45.2 % MCV 83.2 81.5 - 97.5 fL MCH 26.9 27.0 - 34.0 pg MCHC 32.3 32.0 - 36.0 g/dL RDW 18.2 11.5 - 15.5 % PLT 551 (H) 140 - 400 K/uL MPV 8.7 6.6 - 11.1 fL DIFFERENTIAL, AUTOMATED Result Value Ref Range WBC 12.91 (H) 4.00 - 10.80 K/uL Neutrophils % 76.0 (H) 40.0 - 75.0 % Lymphocytes % 11.8 (L) 18.0 - 42.0 % Monocytes % 11.5 (H) 1.0 - 11.0 % Eosinophils % 0.5 0.0 - 6.0 % Basophils % 0.2 0.0 - 2.0 % Absolute Neutrophils 9.82 (H) 1.80 - 7.70 K/uL Absolute Lymphocytes 1.52 1.00 - 4.80 K/ul Absolute Monocytes 1.48 (H) 0.00 - 1.10 K/uL Absolute Eosinophils 0.07 0.00 - 0.70 K/uL Absolute Basophils 0.02 0.00 - 0.20 K/uL Her blood counts and sodium level stable. REVIEW OF SYSTEMS: General: No Fever, chills, [...] bleeding Genitourinary: Denies Hematuria or dysuria Musculoskeletal: Generalized weakness and increasing fatigue Psychiatric: No vegetative signs of depression Endocrine: [...] 1 Tablet by mouth in the morning. (Patient not taking: Reported on 08/22/2023) Simethicone 80 MG Oral Tablet (Bicarsim) Take [...] as needed for Nausea. 30 Tablet 3 Vitamin B-12 1000 MCG Oral Tablet (Cyanocobalamin) Take 1 Tablet by mouth in the morning. (Patient not taking: Reported on 08/22/2023) predniSONE 10 MG Oral Tablet (Deltasone) Take 1 Tablet by mouth in the morning. (Patient not taking: Reported on 08/22/2023) Turmeric 500 MG Oral Capsule Take 1 Capsule by mouth in the morning. (Patient not taking: Reported on 08/22/2023) Ondansetron HCl 8 MG Oral Tablet Take 1 Tablet by mouth every 8 hours as needed for Nausea. 30 Tablet 0 Prochlorperazine Maleate 10 MG Oral Tablet (Compazine) Take 1 Tablet by mouth every 6 hours as needed for Nausea. 30 Tablet 0 Polyethylene Glycol 3350 17 GM Oral Packet (Miralax) Take 1 Packet by mouth in the morning. 14 Each5 Sennosides 8.6 MG Oral Tablet (Senokot) Take 1 Tablet by mouth at bedtime. 60 Tablet 5 Doxycycline Hyclate 100 MG Oral Capsule Take 1 capsule (100mg) by mouth twice a day 12 Capsule 0 Furosemide 20 MG Oral Tablet (Lasix) Take 1 tablet (20mg) by mouth twice a day 60 Tablet 0 Magnesium Oxide -Mg Supplement 400 (240 Mg) MG Oral Tablet (Mag-Ox) Take 1 tablet (400mg) by mouth twice a day 60 Tablet 0 Sodium Chloride 1 GM Oral Tablet Take 1 tablet (1000mg) by mouth twice a day 60 Tablet 0 Metoprolol Succinate ER 50 MG Oral Tablet Extended Release 24 Hour (toPROL XL) Take 2 tablets (100mg) by mouth daily in the morning 60 Tablet 0 Apixaban 5 MG Oral Tablet (Eliquis) Take 1 Tablet by mouth in the morning and 1 Tablet before bedtime. 60 Tablet 5 Morphine Sulfate ER 15 MG Oral Tablet Extended Release (Ms Contin) Take 1 Tablet by mouth in the morning and 1 Tablet before bedtime. oxyCODONE HCl 5 MG Oral Tablet (Oxy IR) Take 2 Tablets by mouth every 4 hours as needed for moderate Pain, 60 Tablet 0 No current facility-administered medications for this visit. Social History Tobacco Use Smoking status: Former Packs/day: 0.75 Years: 52.00 Additional pack years: 0.00 Total pack years: 39.00 Types: Cigarettes Start date: 1970 Smokeless tobacco: Never Vaping Use Vaping Use: Never used Substance Use Topics Alcohol use: Yes Comment: socially mixed drink whiskey club soda, Drug use: Never Review of patient's allergies indicates: No Known Allergies PHYSICAL EXAMINATION: General Appearance: Weak appearing patient in no acute distress There were no vitals taken for this visit. Vitals reviewed. HEENT: No oral or pharyngeal masses, ulceration or thrush noted, no sinus tenderness. Neck is supple with no thyromegaly or JVD noted. Lymph Nodes: Axillary mass is stable Lungs/Thorax: Clear to auscultation, no accessory muscles of respiration being used. Heart: Regular rate and rhythm, normal S1, S2 Abdomen: Soft, nontender, bowel sounds present, no appreciable hepatosplenomegaly, no palpable masses Extremeties: Good pulses bilaterally, no peripheral edema. ASSESSMENT: 78-year-old female with past medical history [...] and cervical lymphadenopathy with left adrenal metastasis. She was treated with sotorasib. She was admitted to the hospital with complaint of chest pain and had CT scan done which shows extensive lymphadenopathy and is left apical lung mass. She also had a PET scan done which revealed disease progression with worsening lymphadenopathy in the neck and the chest and new metabolically active lesion involving the T3-T4. Patient has a significant disease progression while she is taking sotorasib. Patient has significant disease progression. 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 PDL1 expression was 10%. On the recent PET scan she has significant disease progression with lymphadenopathy and increasing lung mass. She has a neuroendocrine feature and tumor is behaving like a small cell lung cancer. She received 1 cycle of chemotherapy including combination of carboplatin plus etoposide and atezolizumab. Clinically she continues to complain generalized weakness and poor appetite. Her albumin level has decreased to 2.8. She has palpable mass in the left axillary area which seems to be stable. Discussed with the patient and daughter in detail about the diagnosis and prognosis reviewed all the available blood tests and PET scan finding with them. I also again personally reviewed the radiology images of the PET scan. Option of palliative radiation therapy was discussed because of the pain.After discussion she decided against radiation therapy and want to continue follow palliative Care for symptomatic management. Because of her overall general condition I will continue to hold chemotherapy. PLAN: As above. She will return clinic for follow-up in 3 weeks with CBC and CMP. She will continue follow-up palliative care for pain management. The patient voiced understanding of all of [...] documented in this encounter Nursing Notes * Toshia Soni LPN - 09/11/2023 8:48 AM EST Patient identifed by name and birthdate Do you have any concerns about pain management for today's visit? Yes. Patient instructed to discuss pain concerns with provider during the visit today Living Will or Advance Directive for Health Care as noted on the problem list. [facility] is a way you can talk to your provider on line through e-mail. Would you like to sign up? I can activate it for you? 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) Expected: 10/02/2023, Expires: 11/28/2023 Health Maintenance Due Date Last Done Comments [...] as of this encounter Visit Diagnoses Diagnosis Bilateral pulmonary embolism (HCC)- Primary Other pulmonary embolism and infarction 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 Question Answer Comments Discussion of Advance Directives occurred with: Patient Care Teams Corn Sheller Operator Relationship Specialty Start Date End Date Antonio Loza MD [address] [facility] [place] [address] PCP - General Family Medicine 07/13/23 documented as of this encounter
--- OUTSIDE RECORDS SUMMARY | 2023-09-26 17:38 | External Medical Summary | Summary of Care ---
Author Name Unknown Organization [facility] Address [address] [place] [address] Phone [phone] Care Team Providers Care Streets And Buildings Decorator Name Role Phone Antonio Loza MD Primary Care Provider [phone] Reason for Visit * Reason Comments Outpatient Testing Encounter Details Date Type Department Care Team (Late st Contact Info) Description 09/08/2023 11:10 AM EST Laboratory Laboratory, [facility] [address] [place] [id number] [facility] [address] [place] [address] 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); Encounter for long-term (current) use of medications; Dysuria Allergies No known active allergiesdocumented as of this encounter (statuses as of 09/08/2023) Medications Medication Sig Dispensed Refills Start Date End Date Status Vitamin D 25 MCG (1000 UT) Oral Tablet Take 1 Tablet by mouth in the morning. 0 Active Simethicone 80 MG Oral Tablet (Bicarsim)Indication s: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) Take 1 Tablet by mouth every 6 hours as needed for Gas. 30 Tablet 0 03/30/2023 Active OLANZapine 5 MG Oral Tablet (zyPREXA)Indications :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),Anorexia Take 1 Tablet by mouth at bedtime. 30 Tablet 0 04/13/2023 Active Famotidine 20 MG Oral Tablet (Pepcid) Take 1 Tablet by mouth in the morning and 1 Tablet before bedtime. 180 Tablet 1 04/13/2023 Active Ondansetron HCl 4 MG Oral TabletIndications:Pr imary cancer of left upper lobe of [...] 0 Active Ondansetron HCl 8 MG Oral TabletIndications:Ch emotherapy induced nausea and vomiting,Bilateral pulmonary embolism (HCC),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 30 Tablet 0 07/17/2023 Active Prochlorperazine Maleate 10 MG Oral Tablet (Compazine)Indicatio ns:Chemotherapy induced nausea and vomiting,Bilateral pulmonary embolism (HCC),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 30 Tablet 0 07/17/2023 Active Polyethylene Glycol 3350 17 GM Oral Packet (Miralax) Take 1 Packet by mouth in the morning. 14 Each 5 08/08/2023 Active Sennosides 8.6 MG Oral Tablet (Senokot) Take 1 Tablet by mouth at bedtime. 60 Tablet 5 08/08/2023 Active Doxycycline Hyclate 100 MG Oral Capsule Take 1 capsule (100mg) by mouth twice a day 12 Capsule 0 08/18/2023 Active Furosemide 20 MG Oral Tablet (Lasix) Take [...] 08/18/2023 Active Apixaban 5 MG Oral Tablet (Eliquis)Indications :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 60 Tablet 5 08/21/2023 Active Morphine Sulfate ER 15 MG Oral Tablet Extended Release (Ms Contin)Indications:C ancer related pain Take 1 Tablet by mouth in the morning and 1 Tablet before bedtime. 0 09/06/2023 Active oxyCODONE HCl 5 MG Oral Tablet (Oxy IR)Indications:Prima ry cancer of left upper lobe of lung (HCC) Take 2 Tablets by mouth every 4 hours as needed for moderate Pain, 60 Tablet 0 09/06/2023 Active documented as of this encounter (statuses as of 09/08/2023) Active Problems Problem Noted Date Diagnosed Date [...] as of this encounter (statuses as of 09/08/2023) Resolved Problems Problem Noted Date Diagnosed Date Resolved Date Encounter for examination fo r normal comparison and control in clinical research program 11/21/2017 06/01/2020 Overview: DO NOT DELETE [facility] AREN Study: Project # [id number], Health Services Rn: Khadar Dodd, PhD. SUMMARY: Goal: Establish test [...] study staff at ; after hours Health Services Rn via the [facility] soda fountain operator . Please contact study team before resolving/deleting from patients problem list. Study phone number: [phone]. Diagnosis changed due to Research Module. Go to Snapshot for study details. Encounter for examination fo r normal comparison and control in clinical research program 11/21/2017 06/30/2022 Overview: DO NOT DELETE - [facility] DETECT Study: Project # [id number], Health Services Rn: Mykle Gill, MS, MPH. SUMMARY: Goal: Establish test [...] study staff at ; after hours Health Services Rn via the [facility] soda fountain operator . - Please contact study team before resolving/deleting from patients problem list. Study phone number: [phone]. Diagnosis changed due to Research Module. Go to Snapshot for study details. documented as of this encounter (statuses as of 09/08/2023) Immunizations Name Administration Dates Next Due Covid-19 [...] 09/11/2023 8:30 AM EST Office Visit Hematology/Oncology [place] [facility] [address] [facility] [place] [address] Hesham Bray MD [address] [facility] [place] [address] Pending Results Name Type Priority Associated Diagnoses Date /Time TSH WITH FREE T4 IF INDICATED Lab STAT 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) Encounter for long-term (current) use of medications 09/08/2023 10:51 AM EST LD Lab Routine 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) 09/08/2023 10:51 AM EST COMPREHENSIVE METABOLIC PANEL Lab STAT 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) 09/08/2023 10:51 AM EST Health Maintenance Due Date Last [...] Date/Time Associated Diagnosis Comments DIFFERENTIAL, AUTOMATED Routine 09/08/2023 10:51 AM EST 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) CBC Routine 09/08/2023 10:51 AM EST 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) CBC Routine 09/08/2023 10:51 AM EST 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) documented in this encounter Results * (ABNORMAL) DIFFERENTIAL, AUTOMATED (09/08/2023 10:51 AM EST) WBC 12.91(H) 4.00 - 10.80 K/uL 09/08/2023 11:01 AM EST [facility]10 Neutrophils % 76.0(H) 40.0 - 75.0 % 09/08/2023 11:01 AM EST [facility] 57[facility]10 Lymphocytes % 11.8(L) 18.0 - 42.0 % 09/08/2023 11:01 AM EST [facility] 57[facility]10 Monocytes % 11.5(H) 1.0 - 11.0 % 09/08/2023 11:01 AM EST [facility] 57[facility]10 Eosinophils % 0.5 0.0 - 6.0 % 09/08/2023 11:01 AM EST [facility] 57[facility]10 Basophils % 0.2 0.0 - 2.0 % 09/08/2023 11:01 AM EST [facility]10 Absolute Neutrophils 9.82(H) 1.80 - 7.70 K/uL 09/08/2023 11:01 AM EST [facility]10 Absolute Lymphocytes 1.52 1.00 - 4.80 K/ul 09/08/2023 11:01 AM EST [facility]10 Absolute Monocytes 1.48(H) 0.00 - 1.10 K/uL 09/08/2023 11:01 AM EST [facility] 57[facility]10 Absolute Eosinophils 0.07 0.00 - 0.70 K/uL 09/08/2023 11:01 AM EST [facility] 57[facility]10 Absolute Basophils 0.02 0.00 - 0.20 K/uL 09/08/2023 11:01 AM EST [facility] 5710 Blood Venous blood specimen / Unknown Venipuncture / Unknown 09/08/2023 10:51 AM EST 09/08/2023 10:51 AM EST Hesham Bray MD LAB BLOOD [facility] [place] [address] [address] * (ABNORMAL) CBC (09/08/2023 10:51 AM EST) WBC 12.91(H) 4.00 - 10.80 K/uL 09/08/2023 11:01 AM EST [facility] 5710 RBC 3.46 3.85 - 5.15 M/uL 09/08/2023 11:01 AM EST [facility] 5710 HGB 9.3(L) 12.0 - 15.3 g/dL 09/08/2023 11:01 AM EST [facility] 5710 HCT 28.8(L) 36.0 - 45.2 % 09/08/2023 11:01 AM EST [facility] 5710 MCV 83.2 81.5 - 97.5 fL 09/08/2023 11:01 AM EST [facility] 57[facility]10 MCH 26.9 27.0 - 34.0 pg 09/08/2023 11:01 AM EST [facility]10 MCHC 32.3 32.0 - 36.0 g/dL 09/08/2023 11:01 AM EST [facility] 5710 RDW 18.2 11.5 - 15.5 % 09/08/2023 11:01 AM EST [facility]10 PLT 551(H) 140 - 400 K/uL 09/08/2023 11:01 AM EST [facility]10 MPV 8.7 6.6 - 11.1 fL 09/08/2023 11:01 AM EST [facility] 57[facility]10 Blood Venous blood specimen / Unknown Venipuncture / Unknown 09/08/2023 10:51 AM EST 09/08/2023 10:51 AM EST Hesham Bray MD LAB BLOOD [facility] [place] [address] documented in this encounter Visit Diagnoses Diagnosis 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) Encounter for long-term (current) use of medications Encounter for long-term (current) use of other medications Dysuria documented in this encounter Advance Directives Documents on File Type Date Recorded Patient Salon Leader Expl anation POLST 07/27/2023 11:14 AM POLST Advance Directives and Living Will 06/24/2022 ADVANCE DIRECTIVE / LIVING WILL Power of Optical Model Maker And Tester 06/24/2022 POWER OF A TTORNEY Latest Code Status on File Code Status Date Activated Date Inactivated Comments No Code 03/20/2023 1:42 AM 03/21/2023 5:59 PM This order reflects the patients wishes and were consensually agreed upon. Question Answer Comments Discussion of Advance Directives occurred with: Patient Care Teams Streets And Buildings Decorator Relationship Specialty Start Date End Date Antonio Loza MD [address] [place] [address] PCP - General Family Medicine 07/13/23 documented as of this encounter
--- OUTSIDE RECORDS SUMMARY | 2023-09-26 17:38 | External Medical Summary | Summary of Care ---
Author Name Unknown Organization [facility] Address [address] [place] [address] Phone [phone] Care Team Providers Care Clinic Supervisor Name Role Phone Antonio Loza MD Primary Care Provider [phone] Reason for Visit * Reason Onset Date Comments Medication Refill 09/15/2023 Encounter Details Date Type Department Care Team (Late st Contact Info) Description 09/15/2023 Refill Palliative Medicine [facility] [address] [place] [address] Cherise Hartman CRNP [address] [place] [address] Cancer related pain Allergies No [...] Overview: DO NOT DELETE [facility] DETECT Study: Project # [id number], Digital Engineer: Khadar Dodd, PhD. SUMMARY: Goal: Establish [...] contact study staff at ; after hours Digital Engineer via the [facility] hospital fireboat operator . Please contact study team before resolving/deleting from patients problem list. Study phone number: [phone]. Diagnosis changed due to Research Module. Go to Snapshot for study details. Encounter for examination fo r normal comparison and control in clinical research program 11/21/2017 06/30/2022 Overview: DO NOT DELETE - [facility] DETECT Study: Project # [id number], Digital Engineer: Mykel Gill, MS, MPH. SUMMARY: Goal: [...] contact study staff at ; after hours Digital Engineer via the [facility] hospital fireboat operator . - Please contact study team before resolving/deleting from patients problem list. Study phone number: [phone]. Diagnosis changed due to Research Module. Go [...] encounter Miscellaneous Notes * Telephone Encounter - Cherise Hartman CRNP [...] Drug Monitoring Program in compliance with the [facility] regulations before prescribing a controlled substance. MS [...] Drug Monitoring Program in compliance with the [facility] regulations before prescribing a controlled substance. Were any discrepancies found:no Last prescribed 08/28 Last Filled 08/30 RX Due 09/14 * Telephone Encounter - Iqra Rodrigues audio visual design engineer - 09/15/2023 9:32 AM EST Patient daughter requesting refill of medication. Stating patient has enough for tonight. Asking for return call when sent to pharmacy. Erin [phone] Thank you, Iqra Rodrigues B2B Sales Consultant 09/15/2023,9:33 AM * Telephone Encounter - Iqra Rodrigues audio visual design engineer - 09/15/2023 9:31 AM EST Did you pend patient's preferred pharmacy and medication before forwarding?yes Pharmacy: [facility] Pending Prescriptions: Disp Refills Morphine [...] 10/03/2023 9:30 AM EST Office Visit Hematology/Oncology [facility] [address] [facility] [address] Cherise Wallace CRNP [address] [facility] [place] [address] 10/10/2023 2:30 PM EST Telemedicine Palliative Medicine, [facility] [address] [facility] 5th [address] [place] [address] Cherise Hartman CRNP [address] [facility] [place] [address] Health Maintenance Due Date Last Done Comments [...] Documents on File Type Date Recorded Patient House Designer Expl anation POLST 07/27/2023 11:14 AM POLST Advance Directives and Living Will 06/24/2022 ADVANCE DIRECTIVE / LIVING WILL Power of Estimating Manager 06/24/2022 POWER OF A TTORNEY Latest Code Status on File Code Status Date Activated Date Inactivated Comments No Code 03/20/2023 1:42 AM 03/21/2023 5:59 PM This order reflects the patients wishes and were consensually agreed upon. Question Answer Comments Discussion of Advance Directives occurred with: Patient Care Teams Clinic Supervisor Relationship Specialty Start Date End Date Antonio Loza MD [address] [place] [address] PCP - General Family Medicine 07/13/23 documented as of this encounter
--- OUTSIDE RECORDS SUMMARY | 2023-09-26 17:38 | External Medical Summary | Summary of Care ---
Author Name Unknown Organization [facility] Address [address] [place] [address] Phone [phone] Care Team Providers Care Anime Designer Name Role Phone Antonio Loza MD Primary Care Provider [phone] Reason for Visit * Reason Onset Date Comments Medication Refill 09/15/2023 Encounter Details Date Type Department Care Team (Late st Contact Info) Description 09/15/2023 Telephone Palliative Medicine, [facility] [address] [facility] [address]th [place] [address] Fatimah Hartman CRNP [address] [place] [address] Medication Refill Allergies No known active allergiesdocumented as of [...] Moderate Pain 60 Tablet 0 09/15/2023 Active oxyCODONE HCl 5 MG Oral Tablet (Oxy IR)Indications:P rimary cancer of left upper lobe of lung (HCC) Take 2 Tablets by mouth every 4 hours as needed for moderate Pain, 60 Tablet 0 09/06/2023 3 Discontinue d(Refill) documented as [...] [facility] DETECT Study: Project # [id number], Drafter Heating And Ventilating: Khadar Dodd, PhD. SUMMARY: Goal: Establish test [...] contact study staff at ; after hours Drafter Heating And Ventilating via the [facility] folder machine operator . Please contact study team before resolving/deleting from patients problem list. Study phone number: [phone]. Diagnosis changed due to Research Module. Go to Snapshot for study details. Encounter for examination fo r normal comparison and control in clinical research program 11/21/2017 06/30/2022 Overview: DO NOT DELETE [facility] Study: Project # [id number], Drafter Heating And Ventilating: Mykel Gill, MS, MPH. SUMMARY: Goal: Establish [...] contact study staff at ; after hours Drafter Heating And Ventilating via the [facility] folder machine operator . - Please contact study team before resolving/deleting from patients problem list. Study phone number: [phone]. Diagnosis changed due to Research Module. Go [...] encounter Miscellaneous Notes * Telephone Encounter - Fatimah Hartman CRNP - 09/15/2023 9:19 AM EST I have reviewed the patients controlled substance dispensing history in the Prescription Drug Monitoring Program in compliance with the [facility] regulations before prescribing a controlled substance. Oxycodone refilled. DAVID Don Palliative Medicine Nurse Practitioner [facility] [email or web address] documented in this encounter Plan of Treatment Upcoming Encounters Date Type Department Care Team (Late st Contact Info) Description 10/03/2023 9:30 AM EST Office [facility] [place] [address] [facility] [address] Fatimah Wallace CRNP [address] [facility] [place] [address] 10/10/2023 2:30 PM EST Telemedicine Palliative Medicine, [facility] [address] [facility] 5th [address] [place] [address] Fat[facility]ah Hart[facility] CRNP [address] [facility] [place] [address] Health Maintenance Due Date Last Done Comments [...] Documents on File Type Date Recorded Patient Invoice Control Clerk Expl anation POLST 07/27/2023 11:14 AM POLST Advance Directives and Living Will 06/24/2022 ADVANCE DIRECTIVE / LIVING WILL Power of Hand Bander 06/24/2022 POWER OF A TTORNEY Latest Code Status on File Code Status Date Activated Date Inactivated Comments No Code 03/20/2023 1:42 AM 03/21/2023 5:59 PM This order reflects the patients wishes and were consensually agreed upon. Question Answer Comments Discussion of Advance Directives occurred with: Patient Care Teams Anime Designer Relationship Specialty Start Date End Date Antonio Loza MD [address] [place] [address] PCP - General Family Medicine 07/13/23 documented as of this encounter
--- OUTSIDE RECORDS SUMMARY | 2023-09-26 17:38 | External Medical Summary | Summary of Care ---
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 60 Tablet 0 08/08/2023 09/06/2023 Discontinued (Refill) Morphine Sulfate ER 15 MG Oral Tablet Extended Release (Ms Contin)Indication s:Cancer related pain Take 1 Tablet by mouth every night at bedtime. 30 Tablet 0 08/28/2023 09/06/2023 Discontinued (Refill) documented as of this encounter (statuses as of 09/06/2023) Active Problems Problem Noted Date Diagnosed Date [...] as of this encounter (statuses as of 09/06/2023) Resolved Problems Problem Noted Date Diagnosed Date Resolved Date Encounter for examination fo r normal comparison and control in clinical research program 11/21/2017 06/01/2020 Overview: DO NOT DELETE [facility] DETECT Study: Project # [id number], Director Of Research: Khadar Dodd, PhD. SUMMARY: Goal: Establish [...] study staff at ; after hours Director Of Research via the [facility] hospital keying machine operator . Please contact study team before resolving/deleting from patients problem list. Study phone number: [phone]. Diagnosis changed due to Research Module. Go to Snapshot for study details. Encounter for examination fo r normal comparison and control in clinical research program 11/21/2017 06/30/2022 Overview: DO NOT DELETE [facility] DETECT Study: Project # [id number], Director Of Research: Mykel Gill, MS, MPH. SUMMARY: Goal: [...] study staff at ; after hours Director Of Research via the [facility] hospital keying machine operator . - Please contact study team before resolving/deleting from patients problem list. Study phone number: [phone]. Diagnosis changed due to Research Module. Go to Snapshot for study details. documented as of this encounter (statuses as of 09/06/2023) Immunizations Name Administration Dates Next Due Covid-19 [...] as of this encounter Progress Notes * Fatimah Hartman CRNP - 09/06/2023 1:58 PM EST Palliative Medicine Outpatient Progress Note IN HOME TELEMEDICINE VISIT [facility] 5th Floor [address] [facility] [address] Name: Reba Delaney Date: 09/06/2023 I was in a hospital or clinic location. After connecting through televideo, patient was verified with two unique identifiers. Patient (or authorized legal outside medical sales representative) was then informed that this was a Telemedicine visit and being conducted confidentially over secure lines. Methods to assure confidentiality were taken. Patient acknowledged consent and understanding of privacy and security of the Telemedicine visit. The patient agreed to participate. HPI: Reba Delaney is a 78 year old female with non-smal cell lung cancer seen in follow-up for goals of care and symptom management. Interval history: Pain is worsened, now at the top of chest bottom of chest and around the back. Taking morphine now twice a day. Taking oxycodone 5mg twice per day. Doesn't seem to be working, so they are going to go back to oxycodone 10mg and are aware that it can be increased. Patient said, "I think I need a chest x- ray to see what's going on." I asked if anything has changed and she said "Not really, I just don't feel good." Daughter said patient is not having increased cough or symptoms, feels that this is all just the cancer - patient agreed. They do see Dr. Bray on Monday and will talk with him as well. Palliative ROS: Pain: as above Nausea/Vomiting no Constipation: no Confusion: no Sleep: ok Activities: decreased Appetite: ok Mood: ok Other: weakness, fatigue ROS: See HPI. All others negative. 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: [employer] Employer: [employer] Tobacco Use Smoking status: Former Packs/day: 0.75 [...] on file Food Insecurity: No Food Insecurity (03/09/2023) Hunger Vital Sign Worried About Running Out of Food in the Last Year: Never true Ran Out of Food in the Last Year: Never true Transportation Needs: Not on file Physical Activity: Not on file Stress: Not on file Social Connections: Not on file Intimate Partner Violence: Not on file Housing Stability: Not on file family history includes Breast Cancer in her grandmother (paternal); Cancer in her grandmother (paternal) and sister; Heart Disorder (age of onset: 76) in her father; Stroke (age of onset: 86) in hermother. Examination: No vital signs as visit completed via telemedicine. Constitutional: no acute distress, chronically ill HENT: normocephalic, atraumatic Eyes: anicteric, sclera and conjunctiva normal Neck: no stridor Chest: normal respiratory effort Abdominal: not assessed via telemed MSK: no deformities Data Review: External notes reviewed: [facility] palliative encounter, reviewed Dr. Bray's last note - chemo on hold two weeks. Lab / Imaging Results: Reviewed in EMR, pertinent findings include: Latest Reference Range & Units 08/22/23 13:42 WBC 4.00 - 10.80 K/uL 11.56 (H) HGB 12.0 - 15.3 g/dL 9.7 (L) HCT 36.0 - 45.2 % 31.2 (L) MCV 81.5 - 97.5 fL 84.6 PLT 140 - 400 K/uL 638 (H) (H): Data is abnormally high (L): Data is abnormally low History obtained from: patient and daughter Erin Discussion with other team members: none ASSESSMENT: Reba Delaney is a 78 year old female seen in follow-up for goals of care and pain and symptom management. Cancer related pain Non-small cell lung cancer PLAN: Continue MS Contin 15mg BID Continue oxycodone 10mg PO Q4h PRN breakthrough pain I have reviewed the patients controlled substance dispensing history in the Prescription Drug Monitoring Program in compliance with the [facility] regulations before prescribing a controlled substance. Use biotene products for dry mouth Follow up in one month by video I spent a total of 40-54 minutes (exact time 38 mins) on the date of service in preparation, delivery, and documentation of the care provided to Reba Delaney excluding any time spent in the performance of separately billed services. DAVID Don Palliative Medicine Nurse Practitioner [facility] [email or web address] Contact via Herberth Ayala during business hours. 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 Question Answer Comments Discussion of Advance Directives occurred with: Patient Care Teams Watchmaker Apprentice Relationship Specialty Start Date End Date Antonio Loza MD [address] [place] [address] PCP - General Family Medicine 07/13/23 documented as of this encounter
--- OUTSIDE RECORDS SUMMARY | 2023-09-26 17:39 | External Medical Summary | Summary of Care ---
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 30 Tablet 0 07/17/2023 Active oxyCODONE HCl 5 MG Oral Tablet (Oxy IR)Indications:Prima ry cancer of left upper lobe of lung (HCC) Take 2 Tablets by mouth every 4 hours as needed for Pain, Moderate. 60 Tablet 0 08/08/2023 Active Polyethylene Glycol 3350 17 GM Oral Packet (Miralax) Take 1 Packet by mouth in the morning. 14 Each 5 08/08/2023 Active Morphine Sulfate ER 15 MG Oral Tablet Extended Release (Ms Contin)Indications:C ancer related pain Take 1 Tablet by mouth every night at bedtime. 30 Tablet 0 08/08/2023 Active Sennosides 8.6 MG Oral Tablet [...] before bedtime. 60 Tablet 5 08/21/2023 Active documented as of this encounter (statuses as of 08/22/2023) Active Problems Problem Noted Date Diagnosed Date [...] as of this encounter (statuses as of 08/22/2023) Resolved Problems Problem Noted Date Diagnosed Date Resolved Date Encounter for examination fo r normal comparison and control in clinical research program 11/21/2017 06/01/2020 Overview: DO NOT DELETE [facility] DETECT Study: Project # [id number], Legal Investigator: Khadar Dodd, PhD. SUMMARY: Goal: Establish test [...] contact study staff at ; after hours Legal Investigator via the [facility] hospital welding machine operator electroslag . Please contact study team before resolving/deleting from patients problem list. Study phone number: [phone]. Diagnosis changed due to Research Module. Go to Snapshot for study details. Encounter for examination fo r normal comparison and control in clinical research program 11/21/2017 06/30/2022 Overview: DO NOT DELETE - [facility] DETECT Study: Project # [id number], Legal Investigator: Mykel Gill, MS, MPH. SUMMARY: Goal: Establish [...] contact study staff at ; after hours Legal Investigator via the [facility] hospital welding machine operator electroslag . - Please contact study team before resolving/deleting from patients problem list. Study phone number: [phone]. Diagnosis changed due to Research Module. Go to Snapshot for study details. documented as of this encounter (statuses as of 08/22/2023) Immunizations Name Administration Dates Next Due Covid-19 [...] Care Team (Late st Contact Info) Description 08/22/2023 2:00 PM EDT Office Visit Hematology/Oncology [facility] Cabrera [place] [address] [facility] [place] [address] Hesham Bray MD [address] [facility] [place] [address] Arrived 08/29/2023 2:00 PM EDT Telemedicine Palliative Medicine, [facility] [address] 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) 08/22/2023 1:42 PM EDT DIFFERENTIAL, AUTOMATED Lab STAT 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) 08/22/2023 1:42 PM EDT Health Maintenance Due Date Last [...] for long-term (current) use of other medications documented in this encounter Advance Directives Documents on File Type Date Recorded Patient Emissions Testing Technician Expl anation POLST 07/27/2023 11:14 AM POLST Advance Directives and Living Will 06/24/2022 ADVANCE DIRECTIVE / LIVING WILL Power of Animal Sitter 06/24/2022 POWER OF A TTORNEY Latest Code Status on File Code Status Date Activated Date Inactivated Comments No Code 03/20/2023 1:42 AM 03/21/2023 5:59 PM This order reflects the patients wishes and were consensually agreed upon. Question Answer Comments Discussion of Advance Directives occurred with: Patient Care Teams Sewing Demonstrator Relationship Specialty Start Date End Date Antonio Loza MD [address] [place] [address] [address] PCP - General Family Medicine 07/13/23 documented as of this encounter
--- OUTSIDE RECORDS SUMMARY | 2023-09-26 17:39 | External Medical Summary | Summary of Care ---
Author Name Unknown Organization [facility] Address [address] [place] [address] Phone [phone] Care Team Providers Care Rn Teacher Name Role Phone Antonio Loza MD Primary Care Provider [phone] Reason for Visit * Reason Onset Date Comments Information 08/10/2023 Encounter Details Date Type Department Care Team Description 08/10/2023 Telephone Hematology/Oncology Treatment, [place] [address] [place] [phone] Hesham Bray MD [address] [place] [address] Information Allergies No known active allergiesdocumented as of this encounter (statuses as of 08/14/2023) Medications Medication Sig Dispensed Refills Start Date [...] for Nausea. 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 60 Tablet 5 07/18/2023 Active oxyCODONE HCl 5 MG Oral Tablet [...] at bedtime. 60 Tablet 5 08/08/2023 Active documented as of this encounter (statuses as of 08/14/2023) Active Problems Problem Noted Date Primary cancer [...] as of this encounter (statuses as of 08/14/2023) Resolved Problems Problem Noted Date Resolved Date Encounter for examination fo r normal comparison and control in clinical research program 11/21/2017 06/01/2020 Overview: DO NOT DELETE [facility] DETECT Study: Project # [id number], Gasket Former: Khadar Dodd, PhD. SUMMARY: Goal: Establish test [...] contact study staff at ; after hours Gasket Former via the [facility] auxiliary equipment operator . Please contact study team before resolving/deleting from patients problem list. Study phone number: [phone]. Diagnosis changed due to Research Module. Go to Snapshot for study details. Encounter for examination fo r normal comparison and control in clinical research program 11/21/2017 06/30/2022 Overview: DO NOT DELETE - [facility] DETECT Study: Project # [id number], Gasket Former: Mykel Gill, MS, MPH. SUMMARY: Goal: Establish [...] contact study staff at ; after hours Gasket Former via the [facility] hospital auxiliary equipment operator . - Please contact study team before resolving/deleting from patients problem list. Study phone number: [phone]. Diagnosis changed due to Research Module. Go to Snapshot for study details. documented as of this encounter (statuses as of 08/14/2023) Immunizations Name Administration Dates Next Due Covid-19 [...] Telephone Encounter - Ellen Joshi LPN - 08/14/2023 9:29 AM EDT Consulted with Dr. Bray, he would like patient to go to emergency room at [facility]. Called Erin to make aware, she verbalizes understanding. Called to notify [facility] ED that patient should be on the way, spoke to Heather. If she is admitted, appointments will need canceled tomorrow. * Telephone Encounter - Ellen Jsohi LPN - 08/14/2023 8:59 AM EDT Erin called in, call was transferred from central scheduling, she states that she was hung up onbut we have no record that she called today. Inquired about concerns, daughter Erin states that patient is very confused, "not right in her head", has pulse ox at home o2 90, pulse 128. denies chest pain and any other symptoms. She would like to know if her mother needs to go to the ED, she is very clear that she is not goingto wait for labs and appointment with Dr. Bray tomorrow, this will be done today. [facility] Palliative, Dr. Bray * Telephone Encounter - Shavon Lacy RN - 08/11/2023 10:31 AM EDT Called and spoke to patient. She states that pain in her chest is still present, still feels like someone is sitting on her chest, but the oxycodone did help a little. She doesn't remember when she last took it. Advised her to keep a log of when she takes her pain medications so that she can reviewthis with palliative care, as knowing how much pain medication she takes helps them to adjust dosesif needed in the future. Patient states that she feels pain is related to her cancer since it got a bit better with oxycodone. Advised her that this would be difficult to definitively determine since she is still having somechest pain and feels like someone is sitting on her chest, would still recommend cardiac workup if pain continues or if it worsens. She states that she will consider this. Patients daughter did not read MyG sent regarding steroids. Reviewed with patient, she states that she did not take prednisone yet today, will not take it anymore. Advised her to contact office with any further concerns. Reviewed appts for labs/ Dr Bray/ treatment 08/15. Patient verbalized understanding. * Telephone Encounter - Shavon Lacy RN - 08/10/2023 9:35 AM EDT Patient called office. States that she is having pain in the right center of her chest. Patient is achy, feels like something is sitting on her chest. She said that she does occasionally have pain inher chest from her cancer, but this is different and more severe than the pain she usually experiences. She does note some indigestion at this time as well. She denies feeling more SOB than usual (though sounds SOB when speaking), O2 97%, HR 110. She states that she took 2 tylenol. Took MS Leiva last night, has not taken her oxycodone yet today. Advised patient that due to pain being different and more severe than what she usually experiences,feels like something is sitting on her chest, she should go to ER. Advised her that this could be related to cancer or indigestion, but should have cardiac workup to rule that out since this is not the pain she usually experiences. Patients daughter in background, yelled that patient will not go toER because they dont want to sit through doing testing again. Patient states that she just thinks she needs stronger pain medication. Advised her that if she has not taken the oxycodone that was prescribed to her, unsure if palliative care will want to increase pain medication. Patient states that she will wait 1-2 hours and then take oxycodone. Advised patient to take oxycodone now, if this doesnot help with pain or pain worsens, should go to ER. Patient verbalized understanding. Dr Bray/ Palliative care: FYI documented in this encounter Plan of Treatment Upcoming Encounters Date Type Specialty Care Team Description 08/15/2023 Laboratory Laboratory [place], [address] [place] [address] 08/15/2023 Office Visit Hematology Oncology Hesham Bray MD [address] [place] [address] 08/15/2023 Hem/Onc Treatment Hematology Oncology [place], Chair 4 Hem Onc Scenery [address] [place] [address] 08/16/2023 Hem/Onc Treatment Hematology Oncology 08/17/2023 Hem/Onc Treatment Hematology Oncology [place], Chair 2 Hem Onc Scenery [address] [place] [address] 08/29/2023 Telemedicine Palliative Medicine Fatimah Hartman CRNP [address] [facility] [place] [address] Health Maintenance Due Date Last Done [...] Documents on File Type Date Recorded Patient [place] Expl anation POLST 07/27/2023 11:14 AM POLST Advance Directives and Living Will 06/24/2022 ADVANCE DIRECTIVE / LIVING WILL Power of Cable Layer 06/24/2022 POWER OF A TTORNEY Latest Code Status on File Code Status Date Activated Date Inactivated Comments No Code 03/20/2023 1:42 AM 03/21/2023 5:59 PM This order reflects the patients wishes and were consensually agreed upon. Question Answer Comments Discussion of Advance Directives occurred with: Patient Care Teams Rn Teacher Relationship Specialty Start Date End Date Antonio Loza MD [address] [place] [address] PCP - General Family Medicine 07/13/23 documented as of this encounter
--- OUTSIDE RECORDS SUMMARY | 2023-09-26 17:39 | External Medical Summary | Summary of Care ---
Author Name Unknown Organization [facility] Address [address] [place] [address] Phone [phone] Care Team Providers Care Finance Broker Name Role Phone Antonio Loza MD Primary Care Provider [phone] [phone] Encounter Details Date Type Department Care Team Description 08/13/2023 Orders Only Hematology/Oncology, [facility] [address] [place], [place] [id number] Hesham Bray MD [address] [place] [address] Allergies No known active allergiesdocumented as of this encounter (statuses as of 08/13/2023) Medications Medication Sig Dispensed Refills Start Date [...] as of this encounter (statuses as of 08/13/2023) Active Problems Problem Noted Date Primary cancer [...] as of this encounter (statuses as of 08/13/2023) Resolved Problems Problem Noted Date Resolved Date Encounter for examination fo r normal comparison and control in clinical research program 11/21/2017 06/01/2020 Overview: DO NOT DELETE [facility] DETECT Study: Project # [id number], Cardroom Worker: Khadar Dodd, PhD. SUMMARY: Goal: Establish [...] contact study staff at ; after hours Cardroom Worker via the [facility] hospital scraper loader operator . Please contact study team before resolving/deleting from patients problem list. Study phone number: [phone]. Diagnosis changed due to Research Module. Go to Snapshot for study details. Encounter for examination fo r normal comparison and control in clinical research program 11/21/2017 06/30/2022 Overview: DO NOT DELETE - [facility] Study: Project # [id number], Cardroom Worker: Mykel Gill, MS, MPH. SUMMARY: Goal: [...] contact study staff at ; after hours Cardroom Worker via the [facility] hospital scraper loader operator . - Please contact study team before resolving/deleting from patients problem list. Study phone number: [phone]. Diagnosis changed due to Research Module. Go to Snapshot for study details. documented as of this encounter (statuses as of 08/13/2023) Immunizations Name Administration Dates Next Due Covid-19 [...] 08/15/2023 Laboratory Laboratory [facility], Lab Scenery [address] [place] [address] 08/15/2023 Office Visit Hematology Oncology Hesham Bray MD [address] [place] [address] 08/15/2023 Hem/Onc Treatment Hematology Oncology [place], Chair 4 Hem Onc Scenery [address] [place] [address] [address] 08/16/2023 Hem/Onc Treatment Hematology Oncology 08/17/2023 Hem/Onc Treatment Hematology Oncology [place], Chair 2 Hem Onc Scenery [address] [place] [address] 08/29/2023 Telemedicine Palliative Medicine Fatimah Hartman, DAVID [address] [place] [address] Health Maintenance Due Date Last Done [...] Documents on File Type Date Recorded Patient Supervising Appraiser Expl anation POLST 07/27/2023 11:14 AM POL Advance Directives and Living Will 06/24/2022 ADVANCE DIRECTIVE / LIVING WILL Power of Employment Adjudicator 06/24/2022 POWER OF A TTORNEY Latest Code Status on File Code Status Date Activated Date Inactivated Comments No Code 03/20/2023 1:42 AM 03/21/2023 5:59 PM This order reflects the patients wishes and were consensually agreed upon. Question Answer Comments Discussion of Advance Directives occurred with: Patient Care Teams Finance Broker Relationship Specialty Start Date End Date Antonio Loza MD [address] [place] [address] PCP - General Family Medicine 07/13/23 documented as of this encounter
--- OUTSIDE RECORDS SUMMARY | 2023-09-26 17:39 | External Medical Summary ---
Author Name Unknown Address Unknown Organization K09:[facility] [place] [address] Laboratory Report Ordering Provider Test Date Status NESS PADILLA 08/22/2023 13:42:34 Final Observation Date Value Abnormality Reference (Units ) Status BUN 08/22/2023 13:42:34 26 Above high normal 6-20 (mg/dL) Final Creatinine 08/22/2023 13:42:34 0.9 0.5-1.0 (mg/dL) Final Glomerular filtration rate/1.73 sq M.predicted [Volume Rate/Area] in Serum, Plasma or Blood by Creatinine-based formula (CKD-EPI) 08/22/2023 13:42:34 70 >=60 (mL/min) Final eGFR is calculated based on the CKD-EPI 2020 equation SODIUM 08/22/2023 13:42:34 133 Below low normal 135 -146 (mmol/L) Final Potassium 08/22/2023 13:42:34 4.1 3.5-5.1 (m mol/L) Final Cl 08/22/2023 13:42:34 92 Below low normal 98- 107 (mmol/L) Final CO2 08/22/2023 13:42:34 30 22-32 (mmo l/L) Final Anion gap 08/22/2023 13:42:34 11 7-15 (mmol /L) Final Glucose 08/22/2023 13:42:34 102 70-120 (mg /dL) Final Albumin 08/22/2023 13:42:34 3.0 Below low normal 3.8 -5.0 (g/dL) Final AST (Aspartate aminotransferase) 08/22/2023 13:42:34 26 10-35 (U/L) Fin al Alk Phos 08/22/2023 13:42:34 116 35-130 (U/ L) Final Bilirubin, Total 08/22/2023 13:42:34 0.4 <=1 .2 (mg/dL) Final Calcium 08/22/2023 13:42:34 9.5 8.4-10.2 ( mg/dL) Final Protein 08/22/2023 13:42:34 7.9 6.0-8.3 (g /dL) Final ALT (Alanine aminotransferase) 08/22/2023 13:42:34 16 10-35 (U/L) Emmanuel dunbar Performing Location [facility] [address] [place] [address]
--- OUTSIDE RECORDS SUMMARY | 2023-09-26 17:39 | External Medical Summary | Summary of Care ---
Author Name Unknown Organization [facility] Address [address] [place] [address] Phone [phone] Care Team Providers Care Director Behavioral Health Name Role Phone Antonio Loza MD Primary Care Provider [phone] [phone] Reason for Visit * Reason Onset Date Comments Information 08/10/2023 Encounter Details Date Type Department Care Team Description 08/10/2023 Telephone Hematology/Oncology Treatment, [place] [address] [place] [id number] Hesham Bray MD [address] [place] [address] Information Allergies No known active allergiesdocumented as [...] [facility] DETECT Study: Project # [id number], Senior Research Associate: Khadar Dodd, PhD. SUMMARY: Goal: Establish [...] study staff at ; after hours Senior Research Associate via the [facility] singe machine operator . Please contact study team before resolving/deleting from patients problem list. Study phone number: [phone]. Diagnosis changed due to Research Module. Go to Snapshot for study details. Encounter for examination fo r normal comparison and control in clinical research program 11/21/2017 06/30/2022 Overview: DO NOT DELETE - [facility] DETECT Study: Project # [id number], Senior Research Associate: Mykel Gill, MS, MPH. SUMMARY: Goal: [...] study staff at ; after hours Senior Research Associate via the [facility] hospital singe machine operator . - Please contact study team before resolving/deleting from patients problem list. Study phone number: [phone]. Diagnosis changed due to Research Module. Go [...] Miscellaneous Notes * Telephone Encounter - Ellen Joshi, SUB MASTER - 08/14/2023 8:59 AM EDT Erin called [...] Bray tomorrow, this will be done today. * Telephone Encounter - Shavon Lacy RN [...] that she took 2 tylenol. Took MS Contin last night, has not taken her oxycodone [...] 08/15/2023 Laboratory Laboratory [facility], Lab Scenery [address] [place] [address] 08/15/2023 Office Visit Hematology Oncology Hesham Bray MD [address] [place] [address] 08/15/2023 Hem/Onc Treatment Hematology Oncology [place], Chair 4 Hem Onc Scenery [address] [place] [address] 08/16/2023 Hem/Onc Treatment Hematology Oncology 08/17/2023 Hem/Onc Treatment Hematology Oncology [place], Chair 2 Hem Onc Scenery [address] [place] [address] 08/29/2023 Telemedicine Palliative Medicine Fatimah Hartman CRNP [address] [place] [address] Health Maintenance Due Date Last Done Comments [...] on File Type Date Recorded Patient Marketing Teacher Expl anation POLST 07/27/2023 11:14 AM POLST Advance Directives and Living Will 06/24/2022 ADVANCE DIRECTIVE / LIVING WILL Power of First Sampler 06/24/2022 POWER OF A TTORNEY Latest Code Status on File Code Status Date Activated Date Inactivated Comments No Code 03/20/2023 1:42 AM 03/21/2023 5:59 PM This order reflects the patients wishes and were consensually agreed upon. Question Answer Comments Discussion of Advance Directives occurred with: Patient Care Teams Director Behavioral Health Relationship Specialty Start Date End Date Antonio Loza MD [address] [place] [address] PCP - General Family Medicine 07/13/23 documented as of this encounter
--- OUTSIDE RECORDS SUMMARY | 2023-09-26 17:39 | External Medical Summary | Summary of Care ---
Author Name Unknown Organization [facility] Address [address] [place] [address] Phone [phone] Care Team Providers Care Engraving Supervisor Name Role Phone Antonio Loza MD Primary Care Provider [phone] [phone] Reason for Visit * Reason Comments Follow Up Pain Encounter Details Date Type Department Care Team (Late st Contact Info) Description 09/06/2023 2:00 PM EST Telemedicine Palliative Medicine [facility] [address] [place] [address] Fatimah Hartman CRNP [address] [place] [address] Cancer related pain*; Primary cancer [...] [facility] DETECT Study: Project # [id number], Manager Cargo: Khadar Dodd, PhD. SUMMARY: Goal: Establish test [...] study staff at ; after hours Manager Cargo via the [facility] hospital chemical recovery operator . Please contact study team before resolving/deleting from patients problem list. Study phone number: [phone]. Diagnosis changed due to Research Module. Go to Snapshot for study details. Encounter for examination fo r normal comparison and control in clinical research program 11/21/2017 06/30/2022 Overview: DO NOT DELETE [facility] DETECT Study: Project # [id number], Manager Cargo: Mykel Gill, MS, MPH. SUMMARY: Goal: Establish [...] study staff at ; after hours Manager Cargo via the [facility] hospital chemical recovery operator . - Please contact study team before resolving/deleting from patients problem list. Study phone number: [phone]. Diagnosis changed due to Research Module. Go [...] Outpatient Progress Note IN HOME TELEMEDICINE VISIT [facility] 5th Floor [address] [facility] [address] Name: Reba Delaney Date: 09/06/2023 I was in a hospital or clinic location. After connecting through televideo, patient was verified with two unique identifiers. 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 Bray's last note [...] Drug Monitoring Program in compliance with the [facility] regulations before prescribing a controlled substance. Use [...] services. DAVID Don Palliative Medicine Nurse Practitioner [email or web address] Contact via Herberth Ayala during business hours. 09/06/2023 documented in this encounter Plan of Treatment Upcoming Encounters Date Type Department Care Team (Late st Contact Info) Description 09/11/2023 8:30 AM EST Office Visit Hematology/Oncology [place] [address] [facility] [place] [address] Hesham Bray MD [address] [facility] [place] [address] Health Maintenance Due Date Last Done Comments [...] Documents on File Type Date Recorded Patient Nanosystems Engineer Expl anation POLST 07/27/2023 11:14 AM POLST Advance Directives and Living Will 06/24/2022 ADVANCE DIRECTIVE / LIVING WILL Power of Sleep Lab Technologist 06/24/2022 POWER OF A TTORNEY Latest Code Status on File Code Status Date Activated Date Inactivated Comments No Code 03/20/2023 1:42 AM 03/21/2023 5:59 PM This order reflects the patients wishes and were consensually agreed upon. Question Answer Comments Discussion of Advance Directives occurred with: Patient Care Teams Engraving Supervisor Relationship Specialty Start Date End Date Antonio Loza MD [address] [place] [address] PCP - General Family Medicine 07/13/23 documented as of this encounter
--- OUTSIDE RECORDS SUMMARY | 2023-09-26 17:39 | External Medical Summary | Summary of Care ---
Author Name Unknown Organization [facility] Address [address] [place] [address] Phone [phone] Care Team Providers Care Auricular Therapist Name Role Phone Antonio Loza MD Primary Care Provider [phone] [phone] Encounter Details Date Type Department Care Team Description 08/13/2023 Orders Only Hematology/Oncology, [facility] [address] [place], [place] [id number] Hesham Bray MD [address] [place] [address] Allergies No known active allergiesdocumented as of [...] [facility] DETECT Study: Project # [id number], Hand Cigar Maker: Khadar Dodd, PhD. SUMMARY: Goal: Establish [...] contact study staff at ; after hours Hand Cigar Maker via the [facility] hospital transfer car operator . Please contact study team before resolving/deleting from patients problem list. Study phone number: [phone]. Diagnosis changed due to Research Module. Go to Snapshot for study details. Encounter for examination fo r normal comparison and control in clinical research program 11/21/2017 06/30/2022 Overview: DO NOT DELETE - [facility] Study: Project # [id number], Hand Cigar Maker: Mykel Gill, MS, MPH. SUMMARY: Goal: [...] contact study staff at ; after hours Hand Cigar Maker via the [facility] hospital transfer car operator . - Please contact study team before resolving/deleting from patients problem list. Study phone number: [phone]. Diagnosis changed due to Research Module. Go [...] 08/15/2023 Laboratory Laboratory [facility], Lab Scenery [address] [place] [address] 08/15/2023 Office Visit Hematology Oncology Hesham Bray MD [address] [place] [address] 08/15/2023 Hem/Onc Treatment Hematology Oncology [place], Chair 4 Hem Onc Scenery [address] [place] [address] 08/16/2023 Hem/Onc Treatment Hematology Oncology 08/17/2023 Hem/Onc Treatment Hematology Oncology [place], Chair 2 Hem Onc Scenery [address] [place] [address] 08/29/2023 Telemedicine Palliative Medicine Fatimah Hartman, DAVID [address] [place] [address] Health Maintenance Due Date [...] Documents on File Type Date Recorded Patient Bridge Painter Expl anation POLST 07/27/2023 11:14 AM POL Advance Directives and Living Will 06/24/2022 ADVANCE DIRECTIVE / LIVING WILL Power of Sommelier 06/24/2022 POWER OF A TTORNEY Latest Code Status on File Code Status Date Activated Date Inactivated Comments No Code 03/20/2023 1:42 AM 03/21/2023 5:59 PM This order reflects the patients wishes and were consensually agreed upon. Question Answer Comments Discussion of Advance Directives occurred with: Patient Care Teams Auricular Therapist Relationship Specialty Start Date End Date Antonio Loza MD [address] [place] [address] PCP - General Family Medicine 07/13/23 documented as of this encounter
--- OUTSIDE RECORDS SUMMARY | 2023-09-26 17:39 | External Medical Summary ---
Author Name Unknown Address Unknown Organization [facility]09[facility] [place] [address] Laboratory Report Ordering Provider Test Date Status NESS PADILLA 08/22/2023 13:42:34 Final Observation Date Value Abnormality Reference (Units ) Status SYNC LEUKOCYTES IN BLOOD BY AUTOMATED COUNT 08/22/2023 13:42:34 11.56 Above high normal 4.00-10.80 (K/uL) Final Segs 08/22/2023 13:42:34 68.4 40.0-75.0 (%) Final Lymphs % 08/22/2023 13:42:34 17.8 Below low normal 18.0-42.0 (%) Final Monos 08/22/2023 13:42:34 13.5 Above high normal 1.0-11.0 (%) Final Eosinophils 08/22/2023 13:42:34 0.1 0.0-6.0 (%) Final Basos 08/22/2023 13:42:34 0.2 0.0-2.0 (%) Final Absolute Segs 08/22/2023 13:42:34 7.91 Above high normal 1.80-7.70 (K/uL) Final Lymphs, absolute 08/22/2023 13:42:34 2.06 1.00-4.80 (K/ul) Final Monos, Abs 08/22/2023 13:42:34 1.56 Above high normal 0.00-1.10 (K/uL) Final Eos, Abs 08/22/2023 13:42:34 0.01 0.00-0.70 (K/uL) Final Basos, Abs 08/22/2023 13:42:34 0.02 0.00-0.20 (K/uL) Final Performing Location [facility] [address] [place] [address]
--- OUTSIDE RECORDS SUMMARY | 2023-09-26 17:39 | External Medical Summary | Summary of Care ---
Author Name Unknown Organization [facility] Address [address] [place] [address] Phone [phone] Care Team Providers Care Brazer Helper Induction Name Role Phone Antonio Loza MD Primary Care Provider [phone] Reason for Visit * Reason Comments Follow Up Hospital discharge Encounter Details Date Type Department Care Team (Late st Contact Info) Description 08/22/2023 2:00 PM EDT Office [facility] [place] [address] [facility] [place] [address] Hesham Bray MD [address] [place] [address] Primary cancer of left upper lobe of [...] [facility] DETECT Study: Project # [id number], Correction Officer: Khadar Dodd, PhD. SUMMARY: Goal: Establish [...] contact study staff at ; after hours Correction Officer via the [facility] hospital cake press operator helper . Please contact study team before resolving/deleting from patients problem list. Study phone number: [phone]. Diagnosis changed due to Research Module. Go to Snapshot for study details. Encounter for examination fo r normal comparison and control in clinical research program 11/21/2017 06/30/2022 Overview: DO NOT DELETE - [facility] DETECT Study: Project # [id number], Correction Officer: Mykel Gill, MS, MPH. SUMMARY: Goal: [...] contact study staff at ; after hours Correction Officer via the [facility] hospital cake press operator helper . - Please contact study team before resolving/deleting from patients problem list. Study phone number: [phone]. Diagnosis changed due to Research Module. Go [...] Sign Reading Time Taken Comments Blood Pressure 114/72 08/22/2023 1:50 PM EDT Pulse 69 08/22/2023 1:50 PM EDT Temperature 36.4 C (97.6 F) 08/22/2023 1:50 PM ED T Respiratory Rate 16 08/22/2023 1:50 PM EDT Oxygen Saturation 97% 08/22/2023 1:50 PM EDT Inhaled Oxygen Concentration - - Weight 45.4 kg (100 lb) 08/22/2023 1:50 PM EDT Height 160 cm (5' 3") 08/22/2023 1:50 PM EDT Body Mass Index 17.71 08/22/2023 1:50 PM EDT documented in this [...] Progress Notes * Hesham Bray MD - 08/22/2023 1:55 PM EDT Outpatient Consult Note Data Source: Patient, [facility] record. Data Source: Patient, Epic record. 08/22/2023 1:55 PM Reba Yarely Delaney [id number] 78 year old Patient Encounter: HEMATOLOGY/[facility]COLOGY [facility] Cancer Diagnosis: Transfer from Dr. Mitchell Metastatic [...] diagnosed of skin cancer. Interval History: She was recently admitted to the hospital with the hyponatremia, atrial fibrillation with rapid ventricular rate and generalized weakness. She was followed by the palliative Care and Nephrology and Cardiology. She received 1 cycle of chemotherapy from 07/24/2023 to 07/26/2023. She is complaining of generalized weakness, fatigue and poor appetite. She lost about 9 lb since receiving chemotherapy. LABS/IMAGING: Results for orders placed or performed in visit on 07/24/23 COMPREHENSIVE METABOLIC PANEL Result Value Ref Range BUN 23 (H) 6 - 20 mg/dL Creatinine 0.9 0.5 - 1.0 mg/dL Estimated Glomerular Filtration Rate 64 >=60 mL/min Sodium 131 (L) 135 - 146 mmol/L Potassium 4.8 3.5 - 5.1 mmol/L Chloride 95 (L) 98 - 107 mmol/L CO2 24 22 - 32 mmol/L Anion Gap 12 7 - 15 mmol/L Glucose 90 70 - 120 mg/dL Albumin 3.6 (L) 3.8 - 5.0 g/dL AST 18 10 - 35 U/L Alkaline Phosphatase 104 35 - 130 U/L Bilirubin, Total 0.3 <=1.2 mg/dL Calcium 9.9 8.4 - 10.2 mg/dL Protein 8.3 6.0 - 8.3 g/dL ALT 10 10 - 35 U/L TSH WITH FREE T4 IF INDICATED Result Value Ref Range TSH 1.20 0.27 - 4.20 uIU/mL CBC Result Value Ref Range WBC 11.60 (H) 4.00 - 10.80 K/uL RBC 3.76 3.85 - 5.15 M/uL HGB 9.9 (L) 12.0 - 15.3 g/dL HCT 31.9 (L) 36.0 - 45.2 % MCV 84.8 81.5 - 97.5 fL MCH 26.3 27.0 - 34.0 pg MCHC 31.0 32.0 - 36.0 g/dL RDW 16.1 11.5 - 15.5 % PLT 476 (H) 140 - 400 K/uL MPV 8.7 6.6 - 11.1 fL DIFFERENTIAL, AUTOMATED Result Value Ref Range WBC 11.60 (H) 4.00 - 10.80 K/uL Neutrophils % 72.0 40.0 - 75.0 % Lymphocytes % 14.0 (L) 18.0 - 42.0 % Monocytes % 13.1 (H) 1.0 - 11.0 % Eosinophils % 0.7 0.0 - 6.0 % Basophils % 0.2 0.0 - 2.0 % Absolute Neutrophils 8.36 (H) 1.80 - 7.70 K/uL Absolute Lymphocytes 1.62 1.00 - 4.80 K/ul Absolute Monocytes 1.52 (H) 0.00 - 1.10 K/uL Absolute Eosinophils 0.08 0.00 - 0.70 K/uL Absolute Basophils 0.02 0.00 - 0.20 K/uL Blood test done today shows WBC count of 11.56, hemoglobin 9.7 and platelet count 638. REVIEW OF SYSTEMS: General: No Fever, chills, night sweats HEENT: No change in visual acuity, blurred [...] Hematuria or dysuria Musculoskeletal: Generalized weakness and fatigue Skin: No skin rash or lesions noted [...] Current Outpatient Medications Medication Sig Dispense Refill OLANZapine 5 MG Oral Tablet (zyPREXA) Take 1 Tablet by mouth at bedtime. 30 Tablet 0 oxyCODONE HCl 5 MG Oral Tablet (Oxy IR) Take 2 Tablets by mouth every 4 hours as needed for Pain, Moderate. 60 Tablet 0 Morphine Sulfate ER 15 MG Oral Tablet Extended Release (Ms Contin) Take 1 Tablet by mouth every night at bedtime. 30 Tablet 0 Vitamin D 25 MCG (1000 UT) Oral Tablet Take 1 Tablet by mouth in the morning. (Patient not taking: Reported on 08/22/2023) Simethicone 80 MG Oral Tablet (Bicarsim) Take 1 Tablet by mouth every 6 hours as needed for Gas. 30Tablet 0 Famotidine 20 MG Oral Tablet (Pepcid) [...] 1 Tablet before bedtime. 60 Tablet 5 No current facility-administered medications for [...] Weak appearing patient in no acute distress BP 114/72 (BP Site: Left Arm, BP Position: Sitting, BP Cuff Size: Pediatric) | Pulse 69 | Temp 36.4C (97.6 F) (Tympanic) | Resp 16 | Ht 1.6 m (5' 3") | Wt 45.4 kg (100 lb) | SpO2 97% | BMI 17.71kg/m | BSA 1.42 m Vitals reviewed. HEENT: No oral or pharyngeal masses, ulceration or thrush noted, no sinus tenderness. Neck is supple with no thyromegaly or JVD noted. Lymph Nodes: Mass in the left axillary area is smaller, softer and nontender Lungs/Thorax: Clear toauscultation, no accessory muscles of respiration being used. [...] combination of carboplatin plus etoposide and atezolizumab. She is complaining of generalized weakness and have lost about 9 lb. She was also recently to the hospital with hyponatremia and had episode of AFib with the rapid ventricular rate and generalized weakness and fatigue. She continues to complain of generalized weakness and poor appetite. On examination the mass in theleft axillary areas seems smaller and softer. At this point I will continue supportive care and hold chemotherapy and re- evaluate her in 2 weeks. Discussed with the patient and daughter about the diagnosis reviewed all the available blood test result with them. PLAN: Hold chemotherapy. She will return to clinic for follow-up in 2 weeks with CBC and CMP. She will continue follow palliative Care for symptomatic management. The patient voiced understanding of all [...] Nursing Notes * Rosalba Brizuela CMA - 08/22/2023 1:53 PM EDT Patient identifed by name and birthdate Do you have any concerns about pain management for today's visit? No Living Will or Advance Directive for Health Care as noted on the problem list. [facility] is a way you can talk to your provider on line through e-mail. Would you like to sign up? I can activate it for you? ALREADY ACTIVE Filed Vitals: 08/22/23 1350 BP: 114/72 Pulse: 69 Resp: 16 Temp: 36.4 C (97.6 F) TempSrc: Tympanic SpO2: 97% Weight: 45.4 kg (100 lb) Height: 1.6 m (5' 3") Patient was instructed to not get up [...] Care Team (Late st Contact Info) Description 08/29/2023 2:00 PM EDT Telemedicine Palliative Medicine, [facility] [address] [facility] 5th Floor [place] [address] Fatimah Hartman CRNP [address] [facility] [id number] 09/11/2023 8:30 AM EST Office Visit Hematology/Oncology Sanjiv Cabrera [place] [address] [facility] [place] [address] Hesham Bray MD [address] [facility] [place] [address] Scheduled Orders Name Type Priority Associated Diagnoses Orde r Schedule CBC WITH WBC DIFFERENTIAL Lab Routine 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) Expected: 09/05/2023, Expires: 12/18/2023 COMPREHENSIVE METABOLIC PANEL Lab Routine 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) Expected: 09/05/2023, Expires: 12/18/2023 LD Lab Routine 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) Expected: 09/05/2023, Expires: 12/18/2023 Health Maintenance Due Date Last Done Comments [...] Documents on File Type Date Recorded Patient Continuing Education Specialist Expl anation MARLENA 07/27/2023 11:14 AM POL Advance Directives and Living Will 06/24/2022 ADVANCE DIRECTIVE / LIVING WILL Power of Row Boss 06/24/2022 POWER OF A TTORNEY Latest Code Status on File Code Status Date Activated Date Inactivated Comments No Code 03/20/2023 1:42 AM 03/21/2023 5:59 PM This order reflects the patients wishes and were consensually agreed upon. Question Answer Comments Discussion of Advance Directives occurred with: Patient Care Teams Brazer Helper Induction Relationship Specialty Start Date End Date Antonio Loza MD [address] [place] [address] PCP - General Family Medicine 07/13/23 documented as of this encounter
--- OUTSIDE RECORDS SUMMARY | 2023-09-26 17:39 | External Medical Summary | Summary of Care ---
Author Name Unknown Organization [facility] Address [address] [place] [address] Phone [phone] Care Team Providers Care Verifying Specialist Name Role Phone Antonio Loza MD Primary Care Provider [phone] Reason for Visit * Reason Onset Date Comments Medication Refill 08/28/2023 Encounter Details Date Type Department Care Team (Late st Contact Info) Description 08/28/2023 Refill Palliative Medicine, [facility] [address] [facility] 5th [place] [address] Cherise Hartman CRNP [address] [place] [address] Cancer related pain Allergies No known active allergiesdocumented as of this encounter (statuses as of 08/28/2023) Medications Medication Sig Dispensed Refills Start Date [...] night at bedtime. 30 Tablet 0 08/28/2023 Active Morphine Sulfate ER 15 MG Oral Tablet Extended Release (Ms Contin)Indication s:Cancer related pain Take 1 Tablet by mouth every night at bedtime. 30 Tablet 0 08/08/2023 08/28/2023 Discontinued (Refill) documented as of this encounter (statuses as of 08/28/2023) Active Problems Problem Noted Date Diagnosed Date [...] as of this encounter (statuses as of 08/28/2023) Resolved Problems Problem Noted Date Diagnosed Date Resolved Date Encounter for examination fo r normal comparison and control in clinical research program 11/21/2017 06/01/2020 Overview: DO NOT DELETE Graph Story DETECT Study: Project # [id number], Rn Hematology: Khadar Dodd, PhD. SUMMARY: Goal: Establish test [...] contact study staff at ; after hours Rn Hematology via the [facility] [place] hospital roll cutting operator . Please contact study team before resolving/deleting from patients problem list. Study phone number: [phone]. Diagnosis changed due to Research Module. Go to Snapshot for study details. Encounter for examination fo r normal comparison and control in clinical research program 11/21/2017 06/30/2022 Overview: DO NOT DELETE - Graph Story DETECT Study: Project # [id number], Rn Hematology: Mykel Gill, MS, MPH. SUMMARY: Goal: Establish [...] contact study staff at ; after hours Rn Hematology via the [facility] [place] hospital roll cutting operator . - Please contact study team before resolving/deleting from patients problem list. Study phone number: [phone]. Diagnosis changed due to Research Module. Go to Snapshot for study details. documented as of this encounter (statuses as of 08/28/2023) Immunizations Name Administration Dates Next Due Covid-19 [...] Telephone Encounter - Cherise Hartman CRNP - 08/28/2023 4:46 PM EDTSigned Prescriptions: Disp Refills Morphine Sulfate ER 15 MG Oral Tablet Exte*30 Tab*0 Sig: Take 1 Tablet by mouth every night at bedtime.Authorizing Provider: CHERISE HARTMAN * Telephone Encounter - Cherise Hartman CRNP - 08/28/2023 4:45 PM EDT I have reviewed the patients controlled substance dispensing history in the Prescription Drug Monitoring Program in compliance with the [place] regulations before prescribing a controlled substance. * Telephone Encounter - Tana Cai LPN - 08/28/2023 3:09 PM EDT I have reviewed the patients controlled substance dispensing history in the Prescription Drug Monitoring Program in compliance with the [place] regulations before prescribing a controlled substance. Were any discrepancies found:no Last prescribed 07/26 Last Filled 07/26 RX Due 08/10 documented in this encounter Plan of Treatment Upcoming Encounters Date Type Department Care Team (Late st Contact Info) Description 09/06/2023 2:00 PM EST Telemedicine Palliative Medicine [facility] [address] [facility] [address] [place], [place] [address] Cherise Hartman CRNP [address] [place] [address] 09/11/2023 8:30 AM EST Office Visit Hematology/Oncology [facility] [address] [facility] [address] Hesham Bray MD [address] [facility] [address] Health Maintenance Due Date Last Done Comments [...] Documents on File Type Date Recorded Patient Ends Breakage Clerk Expl anation POLST 07/27/2023 11:14 AM POLST Advance Directives and Living Will 06/24/2022 ADVANCE DIRECTIVE / LIVING WILL Power of Senior Fire Protection Engineer 06/24/2022 POWER OF A TTORNEY Latest Code Status on File Code Status Date Activated Date Inactivated Comments No Code 03/20/2023 1:42 AM 03/21/2023 5:59 PM This order reflects the patients wishes and were consensually agreed upon. Question Answer Comments Discussion of Advance Directives occurred with: Patient Care Teams Verifying Specialist Relationship Specialty Start Date End Date Antonio Loza MD [address] [place] [address] PCP - General Family Medicine 07/13/23 documented as of this encounter
--- OUTSIDE RECORDS SUMMARY | 2023-09-26 17:39 | External Medical Summary ---
Author Name Unknown Address Unknown Organization [id number] Sanjiv Oates [place] [address] Laboratory Report Ordering Provider Test Date Status NESS PADILLA 08/22/2023 13:42:34 Final Observation Date Value Abnormality Reference (Units ) Status Nucleated erythrocytes/100 leukocytes [Ratio] in Blood by Automated count 08/22/2023 13:42:34 Final Elliptocytes [Presence] in Blood by Light microscopy 08/22/2023 13:42:34 Moderate Abnormal None Seen Final Schistocytes 08/22/2023 13:42:34 Few Abnormal None Seen Final Target cells [Presence] in Blood by Light microscopy 08/22/2023 13:42:34 Moderate Abnormal None Seen Final Performing Location [facility] [place] [address]
--- OUTSIDE RECORDS SUMMARY | 2023-09-26 17:39 | External Medical Summary | Summary of Care ---
Author Name Unknown Organization [facility] Address [address] [place] [address] Phone [phone] Care Team Providers Care Reduction Furnace Operator Name Role Phone Antonio Loza MD Primary Care Provider [phone] Encounter Details Date Type Department Care Team Description 08/13/2023 Orders Only Hematology/Oncology, [facility] [address] [place], [place] [id number] Hesham Bray MD [address] [place] [address] Allergies No known active allergiesdocumented as of [...] [facility] DET[facility] Study: Project # [id number], Hris Specialist: Khadar oDdd, PhD. SUMMARY: Goal: Establish test characteristics (sensitivity, [...] contact study staff at ; after hours Hris Specialist via the [facility] muffle operator . Please contact study team before resolving/deleting from patients problem list. Study phone number: [phone]. Diagnosis changed due to Research Module. Go to Snapshot for study details. Encounter for examination fo r normal comparison and control in clinical research program 11/21/2017 06/30/2022 Overview: DO NOT DELETE - [facility] Study: Project # [id number], Hris Specialist: Mykel Gill, MS, MPH. SUMMARY: Goal: [...] contact study staff at ; after hours Hris Specialist via the [facility] muffle operator . - Please contact study team before resolving/deleting from patients problem list. Study phone number: [phone]. Diagnosis changed due to Research Module. Go [...] Deborah, Lab Scenery [address] [place] [address] 08/15/2023 Office Visit Hematology Oncology Hesham Bray MD [address] [place] [address] 08/15/2023 Hem/Onc Treatment Hematology Oncology [place], Chair 4 Hem Onc Scenery [address] [place] [address] [address] 08/16/2023 Hem/Onc Treatment Hematology Oncology 08/17/2023 Hem/Onc Treatment Hematology Oncology [place], [address] Hem Onc Scenery [address] [place] [address] 08/29/2023 Telemedicine Palliative Medicine Fatimah Hartman, DAVID [address] [place] [address] Health Maintenance Due Date [...] Documents on File Type Date Recorded Patient Jig Grinder Set Up Operator Expl anation POLST 07/27/2023 11:14 AM POL Advance Directives and Living Will 06/24/2022 ADVANCE DIRECTIVE / LIVING WILL Power of Meat Grader 06/24/2022 POWER OF A TTORNEY Latest Code Status on File Code Status Date Activated Date Inactivated Comments No Code 03/20/2023 1:42 AM 03/21/2023 5:59 PM This order reflects the patients wishes and were consensually agreed upon. Question Answer Comments Discussion of Advance Directives occurred with: Patient Care Teams Reduction Furnace Operator Relationship Specialty Start Date End Date Antonio Loza MD [address] [place] [address] PCP - General Family Medicine 07/13/23 documented as of this encounter
--- OUTSIDE RECORDS SUMMARY | 2023-09-26 17:39 | External Medical Summary | Summary of Care ---
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 60 Tablet 5 07/18/2023 Active oxyCODONE HCl 5 MG Oral Tablet (Oxy IR)Indications:Pr imary cancer of left upper lobe of lung (HCC) Take 1 Tablet by mouth every 4 hours as needed for Pain, Moderate. 60 Tablet 0 07/17/2023 08/03/2023 Discontinued (Refill) Morphine Sulfate ER 15 MG Oral Tablet Extended Release (Ms Contin)Indication s:Cancer related pain Take 1 Tablet by mouth in the morning and 1 Tablet before bedtime. 30 Tablet 0 07/26/2023 08/08/2023 Discontinued (Refill) oxyCODONE HCl 5 MG Oral Tablet (Oxy IR)Indications:Pr imary cancer of left upper lobe of lung (HCC) Take 1 Tablet by mouth every 4 hours as needed for Pain moderate 60 Tablet 0 08/03/2023 08/08/2023 Discontinued (Refill) documented as of this encounter (statuses as of 08/19/2023) Active Problems Problem Noted Date Primary cancer [...] as of this encounter (statuses as of 08/19/2023) Resolved Problems Problem Noted Date Resolved Date Encounter for examination fo r normal comparison and control in clinical research program 11/21/2017 06/01/2020 Overview: DO NOT DELETE [facility] [place] DETECT Study: Project # [id number], Spa Associate: Khadar Dodd, PhD. SUMMARY: Goal: Establish [...] contact study staff at ; after hours Spa Associate via the [facility] hospital plant operator helper . Please contact study team before resolving/deleting from patients problem list. Study phone number: [phone]. Diagnosis changed due to Research Module. Go to Snapshot for study details. Encounter for examination fo r normal comparison and control in clinical research program 11/21/2017 06/30/2022 Overview: DO NOT DELETE - [facility] AREN Study: Project # [id number], Spa Associate: Mykel Gill, MS, MPH. SUMMARY: Goal: [...] contact study staff at ; after hours Spa Associate via the [facility] hospital plant operator helper . - Please contact study team before resolving/deleting from patients problem list. Study phone number: [phone]. Diagnosis changed due to Research Module. Go to EmergentDetection for study details. documented as of this encounter (statuses as of 08/19/2023) Immunizations Name Administration Dates Next Due Covid-19 [...] Telephone Encounter - Ellen Joshi LPN - 08/07/2023 8:14 AM EDTSigned Prescriptions: Disp Refills oxyCODONE HCl 5 MG Oral Tablet (Oxy IR) 60 Tab*0 Sig: Take 1 Tablet by mouth every 4 hours as needed for Pain moderate Authorizing Provider: BRISA LANE * Telephone Encounter - Brisa Lane DO - 08/03/2023 3:47 PM EDTSigned Prescriptions: Disp Refills oxyCODONE HCl 5 MG Oral Tablet (Oxy IR) 60 Tab*0 Sig: Take 1 Tablet by mouth every 4 hours as needed for Pain moderate Authorizing Provider: BRISA LANE * Telephone Encounter - Brisa Lane DO - 08/03/2023 3:47 PM EDTSigned Prescriptions: Disp Refills oxyCODONE HCl 5 MG Oral Tablet (Oxy IR) 60 Tab*0 Sig: Take 1 Tablet by mouth every 4 hours as needed for Pain moderate Authorizing Provider: BRISA LANE * Telephone Encounter - Tana Cai LPN - 08/03/2023 2:44 PM EDT I have reviewed the patients controlled substance dispensing history in the Prescription Drug Monitoring Program in compliance with the [facility] regulations before prescribing a controlled substance. Were any discrepancies found:no Last prescribed 07/17 Last Filled 07/17 RX Due 07/28 * Telephone Encounter - Shavon Lacy RN - 08/03/2023 2:38 PM EDTPending Prescriptions: Disp Refills oxyCODONE HCl 5 MG Oral Tablet (Oxy IR) 60 Tab*0 Sig: Take 1 Tablet by mouth every 4 hours as needed for Pain, Moderate. * Telephone Encounter - Ellen Joshi LPN - 08/03/2023 12:44 PM EDTPending Prescriptions: Disp Refills oxyCODONE HCl 5 MG Oral Tablet (Oxy IR) 60 Tab*0 Sig: Take 1 Tablet by mouth every 4 hours as needed for Pain, Moderate. * Telephone Encounter - Ellen Joshi LPN - 08/03/2023 12:[address] Bray prescribes medication, per OV from 07/26/[address] Chavez "For breakthrough pain, canstill use Oxycodone 5mg q4h PRN pain. " PDMP reviewed, no concerns. Last filled 07/17/23 for 10 days. Script pended by pharmacy * Telephone Encounter - Sadaf King CPhT - 08/03/2023 12:14 PM EDT Did you pend patient's preferred pharmacy and medication before forwarding?yes Pharmacy: [facility] Pending Prescriptions: Disp Refills oxyCODONE HCl 5 MG Oral Tablet (Oxy IR) 60 Tab*0 Sig: Take 1 Tablet by mouth every 4 hours as needed for Pain, Moderate. Last Visit: 07/17/2023 (in office), Visit date not found (telemedicine) Next Visit: Visit date not found If no future appointments scheduled, and last appointment is greater than a year ago, please schedule patient for a follow-up appointment Last date the medication was ordered: 07.17.23 Is this request for a controlled substance?Yes, What was the last refill date 07.17.23 w/ quantity 60 and dosage 1q4 prn and Urine Drug Screen Not completed Urine Drug Screen:No results found for this or any previous visit. Patient Phone Numbers Labs: Lab Results Component Value Date/Time CREAT 0.9 07/24/2023 10:35 AM CREAT 0.9 01/25/2017 09:57 AM POTASSIUM 4.8 07/24/2023 10:35 AM POTASSIUM 4.6 01/25/2017 09:57 AM TSH 1.20 07/24/2023 10:35 AM TSH 1.48 01/25/2017 09:57 AM LDLCALC 100 03/11/2023 09:05 AM LDLCALC 140 (A) 10/17/2022 12:00 AM LDLCALC 128 01/25/2017 09:57 AM LDLDIRECT NOT APPLICABLE 01/25/2017 09:57 AM ALT 10 07/24/2023 10:35 AM ALT 15 01/25/2017 09:57 AM HGBA1C 5.6 08/19/2021 12:19 PM documented in this encounter Plan of Treatment Upcoming Encounters Date Type Specialty Care Team Description 08/25/2023 Office Visit Family Medicine Antonio Loza MD [address] [place] [address] 08/29/2023 Telemedicine Palliative Medicine Fatimah Hartman CRNP [address] [place] [address] [place] [phone] Health Maintenance Due Date Last Done Comments [...] Documents on File Type Date Recorded Patient Parasitologist Expl anation POLST 07/27/2023 11:14 AM POLST Advance Directives and Living Will 06/24/2022 ADVANCE DIRECTIVE / LIVING WILL Power of Services Program Manager 06/24/2022 POWER OF A TTORNEY Latest Code Status on File Code Status Date Activated Date Inactivated Comments No Code 03/20/2023 1:42 AM 03/21/2023 5:59 PM This order reflects the patients wishes and were consensually agreed upon. Question Answer Comments Discussion of Advance Directives occurred with: Patient Care Teams Logistician Relationship Specialty Start Date End Date Antonio Loza MD [address] [place] [address] PCP - General Family Medicine 07/13/23 documented as of this encounter
--- OUTSIDE RECORDS SUMMARY | 2023-09-26 17:39 | External Medical Summary ---
Author Name Unknown Address Unknown Organization K09:[facility] [place] [address] Laboratory Report Ordering Provider Test Date Status NESS PADILLA 08/22/2023 13:42:34 Final Observation Date Value Abnormality Reference (Units ) Status WBC, Total 08/22/2023 13:42:34 11.56 Above high normal 4 .00-10.80 (K/uL) Final RBC 08/22/2023 13:42:34 3.69 3.85-5.15 (M/uL) Final Hemoglobin 08/22/2023 13:42:34 9.7 Below low normal 12 .0-15.3 (g/dL) Final HCT 08/22/2023 13:42:34 31.2 Below low normal 36. 0-45.2 (%) Final MCV 08/22/2023 13:42:34 84.6 81.5-97.5 (fL) Final MCH 08/22/2023 13:42:34 26.3 27.0-34.0 (pg) Final MCHC 08/22/2023 13:42:34 31.1 32.0-36.0 (g/dL) Final RDW 08/22/2023 13:42:34 17.7 11.5-15.5 (%) Final Platelets 08/22/2023 13:42:34 638 Above high normal 14 0-400 (K/uL) Final MPV 08/22/2023 13:42:34 8.7 6.6-11.1 ( fL) Final Performing Location [facility] [place] [address]
--- OUTSIDE RECORDS SUMMARY | 2023-09-26 17:39 | External Medical Summary | Summary of Care ---
Author Name Unknown Organization [facility] Address [address] [place] [address] Phone [phone] Care Team Providers Care Bushing And Broach Operator Name Role Phone Antonio Loza MD Primary Care Provider [phone] Reason for Visit * Reason Onset Date Comments Information 08/10/2023 Encounter Details Date Type Department Care Team Description 08/10/2023 Telephone Hematology/Oncology Treatment, [place] [address] [place] [phone] Hesham Bray MD [address] [place] [address] Information Allergies No known active allergiesdocumented as [...] [facility] [place] DET[facility] Study: Project # [id number], Maintenance Pipefitter: Khadar Dodd, PhD. SUMMARY: Goal: Establish test [...] study staff at ; after hours Maintenance Pipefitter via the [facility] staple shear operator . Please contact study team before resolving/deleting from patients problem list. Study phone number: [phone]. Diagnosis changed due to Research Module. Go to Snapshot for study details. Encounter for examination fo r normal comparison and control in clinical research program 11/21/2017 06/30/2022 Overview: DO NOT DELETE - [facility] DETECT Study: Project # [id number], Maintenance Pipefitter: Mykel Gill, MS, MPH. SUMMARY: Goal: Establish [...] study staff at ; after hours Maintenance Pipefitter via the [facility] staple shear operator . - Please contact study team before resolving/deleting from patients problem list. Study phone number: [phone]. Diagnosis changed due to Research Module. Go [...] patient to go to emergency room at [facility]. Called Erin to make aware, she verbalizes understanding. Called to notify [facility] ED that patient should be on the way, spoke to Heather. * Telephone Encounter - Ellen Joshi LPN - 08/14/2023 8:59 AM EDT Erin [...] Specialty Care Team Description 08/15/2023 Laboratory Laboratory Moriah Cabrera [address] [place] [address] 08/15/2023 Office Visit Hematology Oncology Hesham Bray MD [address] [place] [address] 08/15/2023 Hem/Onc Treatment Hematology Oncology [place], Chair [address] Hem Onc Scen[address] [place] [address] 08/16/2023 Hem/Onc Treatment Hematology Oncology 08/17/2023 Hem/Onc Treatment Hematology Oncology [place], Chair [address] Hem Onc Scenery [address] [place] [address] 08/29/2023 Telemedicine Palliative Medicine Fatimah Hartman CRNP [address] [place] [address] Health Maintenance Due Date [...] Documents on File Type Date Recorded Patient Superintendent Menagerie Expl anation POLST 07/27/2023 11:14 AM POLST Advance Directives and Living Will 06/24/2022 ADVANCE DIRECTIVE / LIVING WILL Power of Student Assistance Counselor 06/24/2022 POWER OF A TTORNEY Latest Code Status on File Code Status Date Activated Date Inactivated Comments No Code 03/20/2023 1:42 AM 03/21/2023 5:59 PM This order reflects the patients wishes and were consensually agreed upon. Question Answer Comments Discussion of Advance Directives occurred with: Patient Care Teams Bushing And Broach Operator Relationship Specialty Start Date End Date Antonio Loza MD [address] [place] [address] PCP - General Family Medicine 07/13/23 documented as of this encounter
--- OUTSIDE RECORDS SUMMARY | 2023-09-26 17:39 | External Medical Summary | Summary of Care ---
Author Name Unknown Organization [facility] Address [address] [place] [address] Phone [phone] Care Team Providers Care Ice Maker Name Role Phone Antonio Loza MD Primary Care Provider [phone] Reason for Visit * Reason Onset Date Comments Information 08/10/2023 Encounter Details Date Type Department Care Team Description 08/10/2023 Telephone Hematology/Oncology Treatment, [place] [address] [place] [phone] Hesham Bray MD [address] [place] [address] Information Allergies No known active allergiesdocumented as [...] DELETE [facility] DETECT Study: Project # [id number], Hatchery Attendant: Khadar Dodd, PhD. SUMMARY: Goal: Establish test [...] contact study staff at ; after hours Hatchery Attendant via the [facility] warehouse forklift operator . Please contact study team before resolving/deleting from patients problem list. Study phone number: [phone]. Diagnosis changed due to Research Module. Go to Snapshot for study details. Encounter for examination fo r normal comparison and control in clinical research program 11/21/2017 06/30/2022 Overview: DO NOT DELETE - [facility] DETECT Study: Project # [id number], Hatchery Attendant: Mykel Gill, MS, MPH. SUMMARY: Goal: Establish [...] contact study staff at ; after hours Hatchery Attendant via the [facility] warehouse forklift operator . - Please contact study team before resolving/deleting from patients problem list. Study phone number: [phone]. Diagnosis changed due to Research Module. Go [...] Notes * Telephone Encounter - Ellen Joshi, SWATCH CUTTER - 08/14/2023 8:59 AM EDT Erin called [...] Bray tomorrow, this will be done today. FYMelissa Palliative, Dr. Bray * Telephone Encounter - [...] that she took 2 tylenol. Took MS Abbie last night, has not taken her oxycodone [...] 08/15/2023 Laboratory Laboratory [place], Lab Scen[address] [place] [address] 08/15/2023 Office Visit Hematology Oncology Hesham Bray MD [address] [place] [address] 08/15/2023 Hem/Onc Treatment Hematology Oncology [place], Chair 4 Hem Onc Scenery [address] [place] [address] 08/16/2023 Hem/Onc Treatment Hematology Oncology 08/17/2023 Hem/Onc Treatment Hematology Oncology [place], Chair 2 Hem Onc Scenery [address] [place] [address] 08/29/2023 Telemedicine Palliative Medicine Fatimah Hartman CRNP [address] [place] [address] [place] [address] Health Maintenance Due Date [...] Documents on File Type Date Recorded Patient Stitching Machine Feeder Or Offbearer Expl anation POLST 07/27/2023 11:14 AM POLST Advance Directives and Living Will 06/24/2022 ADVANCE DIRECTIVE / LIVING WILL Power of Surveyor Geophysical Prospecting 06/24/2022 POWER OF A TTORNEY Latest Code Status on File Code Status Date Activated Date Inactivated Comments No Code 03/20/2023 1:42 AM 03/21/2023 5:59 PM This order reflects the patients wishes and were consensually agreed upon. Question Answer Comments Discussion of Advance Directives occurred with: Patient Care Teams Ice Maker Relationship Specialty Start Date End Date Antonio Loza MD [address] [place] [address] PCP - General Family Medicine 07/13/23 documented as of this encounter
--- OUTSIDE RECORDS SUMMARY | 2023-09-26 17:39 | External Medical Summary ---
Author Name Unknown Address Unknown Organization K01[facility] [place] [address] [place] [address] Laboratory Report Ordering Provider Test Date Status NESS PADILLA 08/22/2023 13:42:34 Final Observation Date Value Abnormality Reference (Units ) Status TSH 08/22/2023 13:42:34 1.54 0.27-4.20 (uIU/mL) Final Performing Location [facility] [place] [address] [place] [address]
--- OUTSIDE RECORDS SUMMARY | 2023-09-26 17:40 | External Medical Summary | Summary of Care ---
Author Name Unknown Organization [facility] Address [address] [place] [address] Phone [phone] Care Team Providers Care Public Address Servicer Name Role Phone Antonio Loza MD Primary Care Provider [phone] Reason for Visit * Reason Comments Chemotherapy C1D3 Etoposide * Episode Based Medications (Routine) - Authorized Specialty Diagnoses / Procedures Referred By Contalyson t Referred To Contact Diagnoses 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) Encounter for antineoplastic chemotherapy Chemotherapy induced nausea and vomiting Procedures UT CARBOPLATIN INJECTION UT FOSAPREPITANT INJECTION UT ETOPOSIDE 10 MG INJ UT INJ, ATEZOLIZUMAB,10 MG Hesham Bray MD [address] [place] [address] Anc Hem/Onc Scene Deborah [address] [place] [address] Referral ID Status Reason Start Date Expiration Date V isits Requested Visits Authorized [id number] Authorized 07/18/2023 10/29/2099 999 [id number] Encounter Details Date Type Department Care Team Description 07/26/2023 Hem/Onc Treatment Hematology/Oncology Treatment, [place] [address] [place] [address] Deborah Chair 10 Hem Onc Scene [address] [facility] [place] [address] 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)*; Encounter for antineoplastic chemotherapy; Chemotherapy induced nausea and vomiting Allergies No known active allergiesdocumented as of this encounter (statuses as of 07/26/2023) Medications Medication Sig Dispensed Refills Start Date [...] for Pain, Moderate. 60 Tablet 0 07/17/2023 Active Apixaban 5 MG Oral Tablet (Eliquis)Indications :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 60 Tablet 5 07/18/2023 Active documented as of this encounter (statuses as of 07/26/2023) Active Problems Problem Noted Date Primary cancer [...] as of this encounter (statuses as of 07/26/2023) Resolved Problems Problem Noted Date Resolved Date Encounter for examination fo r normal comparison and control in clinical research program 11/21/2017 06/01/2020 Overview: DO NOT DELETE [facility] DETECT Study: Project # [id number], Drafting Clerk: Khadar Dodd, PhD. SUMMARY: Goal: Establish [...] contact study staff at ; after hours Drafting Clerk via the [facility] dry cleaning machine operator . Please contact study team before resolving/deleting from patients problem list. Study phone number: [phone]. Diagnosis changed due to Research Module. Go to [employer] for study details. Encounter for examination fo r normal comparison and control in clinical research program 11/21/2017 06/30/2022 Overview: DO NOT DELETE - [facility] Study: Project # [id number], Drafting Clerk: Mykel Gill, MS, MPH. SUMMARY: Goal: [...] contact study staff at ; after hours Drafting Clerk via the [facility] dry cleaning machine operator . - Please contact study team before resolving/deleting from patients problem list. Study phone number: [phone]. Diagnosis changed due to Research Module. Go to [employer] for study details. documented as of this encounter (statuses as of 07/26/2023) Immunizations Name Administration Dates Next Due Covid-19 [...] as of this encounter Nursing Notes * Vy Montalvo RN - 07/26/2023 1:50 PM EDT Functional status at today's visit: Restricted in physically strenuous activity but ambulatory and able to carry out work on a light orsedentary nature, e.g. light house work, office work The drug name, dose, infusion volume, rate and route of administration, expiration date and time, appearance and physical integrity of the drug and rate set on the pump and sequencing of drug administration (as applicable) were verified by me and second sign-in RN. Patient was assessed for symptoms or adverse side effects during treatment. Goals: Patient will remain free from injury. Possible barriers to meeting goals: ambulation with IV pole, pain, fatigue Stability of the patient: Moderately stable - low risk of patient condition declining or worsening Summary regarding today's goals: Met: Pt remained free of injury during treatment Patient tolerated treatment well and was discharged in stable condition. Coverage by Yarely Platt RN. * Vy Montalvo RN - 07/26/2023 12:00 PM EDT Chair 7 Pt was seen by palliative medicine today, see office notes. Chemo agents C1D3 Etoposide Appetite poor Nausea/Vomiting no Diarrhea no Constipation yes, taking stool softener last night and this morning Mucositis no Fatigue yes, resting as needed Bleeding no Infection no Rash no Numbness tingling no Pain across chest and back, taking pain meds as directed by Dr Chavez Radiation no ABN Labs n/a Alt in Tx: no Return in 3 weeks IV site remains intact from treatment yesterday, fluids infusing. Safety and Risk for Injury Patient will remain free from injury. Ensure appropriate safety devices are available. Provide and maintain safe environment. documented in this encounter Plan of Treatment Upcoming Encounters Date Type Specialty Care Team Description 08/08/2023 Telemedicine Palliative Medicine Fatimah Hartman CRNP [address] [place] [address] 08/15/2023 Laboratory Laboratory [place], Lab Scenery [address] [place] [address] 08/15/2023 Office Visit Hematology Oncology Hesham Bray MD [address] [place] [address] 08/15/2023 Hem/Onc Treatment Hematology Oncology [place], Chair 4 Hem Onc Scenery [address] [place] [address] 08/16/2023 Hem/Onc Treatment Hematology Oncology 08/17/2023 Hem/Onc Treatment Hematology Oncology [place], Chair 2 Hem Onc Scenery [address] [place] [address] Health Maintenance Due Date Last Done Comments [...] left upper lobe of lung (HCC)- Primary Encounter for antineoplastic chemotherapy Chemotherapy induced nausea and vomiting Nausea with vomiting documented in this encounter Administered Medications Active Administered Medications - up to 3 most recent administrations Medication Order MAR Action Action Date Dose Rate Site diphenhydrAMINE (Benadryl) inj 50 mg 50 mg, IV Push, ONCE PRN Other, Hypersensitivity Reaction, Starting on Mon07/26/23 at 1144, Until Alexus 07/27/23 at 1143, For 24 hours EPINEPHrine 1 MG/ML inj 0.3 mg 0.3 mg, Intramuscular, ONCE PRN Other, Hypersensitivity Reaction or Anaphylaxis, Starting on Mon07/26/23 at 1144, Until Alexus 07/27/23 at 1143, For 24 hours hEParin 100 UNIT/ML Lock Flush inj 500 Units 500 Units (5 mL), IV Lock, PRN Other, IV Flush, Starting on Mon07/26/23 at 1144, Until Alexus 07/27/23 at 1143, For 24 hours, Do not flush if lock, PICC, or central line not in place; IV infusing or unable to flush. Hydrocortisone Sod Suc (PF) (Solu-Cortef) inj 100 mg 100 mg, IV Push, ONCE PRN Other, Hypersensitivity Reaction, Starting on Mon07/26/23 at 1144, Until Alexus 07/27/23 at 1143, For 24 hours NSS infusion Intravenous, at 50 mL/hr, PRN, Starting on Mon07/26/23 at 1245, Until Discontinued, KVO Start Infusion 07/26/2023 11:50 AM EDT 50 mL/hr oxygen GAS Inhalation, OXYGEN, First dose on Mon07/26/23 at 1600, Until Discontinued, Device/Managed by: Low Flow Device, Goal SPO2 (%): 91-95, Starting Device: Nasal Cannula, Inital Flow Rate (LPM): 2, Lowest Support: Nasal Cannula: Flow 0-6 LPM. Titrate up/down by 1 LPM., Higher Support: Non-Rebreather (NRB) Mask: Minimum of 10 LPM. Titrate to maintain bag inflation., Titration Interval: Q2 minutes and as needed., Notify Provider: For sudden DECREASE in resting SPO2 to less than 85% and when escalating delivery device. sodium chloride 0.9 % flush central line 10 mL 10 mL, IV Push, PRN Other, IV Flush, Starting on Mon07/26/23 at 1144, Until Alexus 07/27/23 at 1143, For 24 hours, Do not flush if lock, PICC, or central line not in place; IV infusing or unable to flush. Inactive Administered Medications - up to 3 most recent administrations Medication Order MAR Action Action Date Dose Rate Site etoposide (VEPESID) 150 mg in NSS 500 mL infusion 150 mg (rounded from 149 mg = 100 mg/m2 1.49 m2 Treatment Plan BSA from Recorded weight), IV Piggyback, ONCE, 1 dose, On Mon07/26/23 at 1315, Administer over 60 Minutes, Recommended concentration is less than or equal to 0.4 mg/mL. If concentration is greater than 0.4 mg/mL recommend to administer through 0.22 micron low protein binding filter. Start Infusion 07/26/2023 12:13 PM EDT 150 mg 500 mL/hr ondansetron (Zofran) tab 8 mg 8 mg, Oral, ONCE, On Mon07/26/23 at 1245, For 1 dose, Give 30 minutes prior to chemotherapy. Given 07/26/2023 11:54 AM EDT 8 mg documented in this encounter Advance Directives Documents on File Type Date Recorded Patient Driver License Reviewing Officer Expl anation Advance Directives and Living Will 06/24/2022 ADVANCE DIRECTIVE / LIVING WILL Power of Clinical Resource Manager 06/24/2022 POWER OF A TTORNEY Latest Code Status on File Code Status Date Activated Date Inactivated Comments No Code 03/20/2023 1:42 AM 03/21/2023 5:59 PM This order reflects the patients wishes and were consensually agreed upon. Question Answer Comments Discussion of Advance Directives occurred with: Patient Care Teams Public Address Servicer Relationship Specialty Start Date End Date Antonio Loza MD [address] [place] [address] PCP - General Family Medicine 07/13/23 documented as of this encounter
--- OUTSIDE RECORDS SUMMARY | 2023-09-26 17:40 | External Medical Summary | Summary of Care ---
Author Name Unknown Organization [facility] Address [address] [place] [address] Phone [phone] Care Team Providers Care Operational Communication Chief Name Role Phone Antonio Loza MD Primary Care Provider [phone] Reason for Visit * Reason Onset Date Comments Precert Approved 07/26/2023 Morphine Encounter Details Date Type Department Care Team Description 07/26/2023 Telephone Palliative Medicine [facility] [address] [place] [address] Lilibeth Chavez MD [address] [place] [address] Precert Approved (Morphine) Allergies No known active allergiesdocumented as of this encounter (statuses as of 07/28/2023) Medications Medication Sig Dispensed Refills Start Date [...] before bedtime. 60 Tablet 5 07/18/2023 Active Morphine Sulfate ER 15 MG Oral Tablet Extended Release (Ms Contin)Indications:C ancer related pain Take 1 Tablet by mouth in the morning and 1 Tablet before bedtime. 30 Tablet 0 07/26/2023 Active documented as of this encounter (statuses as of 07/28/2023) Active Problems Problem Noted Date Primary cancer [...] as of this encounter (statuses as of 07/28/2023) Resolved Problems Problem Noted Date Resolved Date Encounter for examination fo r normal comparison and control in clinical research program 11/21/2017 06/01/2020 Overview: DO NOT DELETE [facility] DETECT Study: Project # [id number], Nutrition Program Instructor: Khadar Dodd, PhD. SUMMARY: Goal: Establish [...] contact study staff at ; after hours Nutrition Program Instructor via the [facility] band sawing machine operator . Please contact study team before resolving/deleting from patients problem list. Study phone number: [phone]. Diagnosis changed due to Research Module. Go to [employer] for study details. Encounter for examination fo r normal comparison and control in clinical research program 11/21/2017 06/30/2022 Overview: DO NOT DELETE - [facility] AREN Study: Project # [id number], Nutrition Program Instructor: Mykel Gill, MS, MPH. SUMMARY: Goal: [...] contact study staff at ; after hours Nutrition Program Instructor via the [facility] hospital band sawing machine operator . - Please contact study team before resolving/deleting from patients problem list. Study phone number: [phone]. Diagnosis changed due to Research Module. Go to [employer] for study details. documented as of this encounter (statuses as of 07/28/2023) Immunizations Name Administration Dates Next Due Covid-19 [...] Miscellaneous Notes * Telephone Encounter - Tana Kamron Cai LPN - 07/26/2023 11:43 AM EDT PRIOR AUTHORIZATION Medication Name and Strength: Morphine Sulfate ER 15 MG Oral Tablet Extended Release (Ms Contin) Qty & Days Supply: #30 tablets/15 day supply ICD 10 Code(s): Cancer related pain [G89.3] Is there medical record documentation that the prescriber or the prescriber's delegate conducted a search of the [place] Prescription Drug Monitoring Program (PDMP) for the beneficiary's controlled substance prescription history? yes Therapeutic failure, intolerance or contraindication to alternative medications? (If yes, please list the medications): yes Fentanyl, Oxycodone Is there medical record documentation of a diagnosis of active cancer? yes Is there medical record documentation of a diagnosis of sickle cell disease with crisis? no Is there medical record documentation that the member is receiving hospice services? no Is there medical record documentation that the member is receiving palliative care? (Answering YES to this question may populate automatic approval) yes Additional supportive documentation if needed: See Palliative and Hem/Onc notes Please attach the following supportive literature / research: See Palliative and Hem/Onc notes documented in this encounter Plan of Treatment Upcoming Encounters Date Type Specialty Care Team Description 08/08/2023 Telemedicine Palliative Medicine Fatimah Hartman CRNP [address] [facility] [place] [address] 08/15/2023 Laboratory Laboratory [place], Lab Scenery [address] [place] [address] 08/15/2023 Office Visit Hematology Oncology Hesham Bray MD [address] [place] [address] 08/15/2023 Hem/Onc Treatment Hematology Oncology [place], Chair 4 Hem Onc Scenery [address] [place] [address] 08/16/2023 Hem/Onc Treatment Hematology Oncology 08/17/2023 Hem/Onc Treatment Hematology Oncology [place], Chair 2 Hem Onc Scenery [address] [place] [facility] [address] Health Maintenance Due Date Last Done Comments [...] on File Type Date Recorded Patient Car Shifter Expl anation POLST 07/27/2023 11:14 AM POLST Advance Directives and Living Will 06/24/2022 ADVANCE DIRECTIVE / LIVING WILL Power of Wrecking Supervisor 06/24/2022 POWER OF A TTORNEY Latest Code Status on File Code Status Date Activated Date Inactivated Comments No Code 03/20/2023 1:42 AM 03/21/2023 5:59 PM This order reflects the patients wishes and were consensually agreed upon. Question Answer Comments Discussion of Advance Directives occurred with: Patient Care Teams Operational Communication Chief Relationship Specialty Start Date End Date Antonio Loza MD [address] [place] [address] PCP - General Family Medicine 07/13/23 documented as of this encounter
--- OUTSIDE RECORDS SUMMARY | 2023-09-26 17:40 | External Medical Summary | Summary of Care ---
Author Name Unknown Organization [facility] Address [address] [place] [address] Phone [phone] Care Team Providers Care Kitchen Lead Name Role Phone Antonio Loza MD Primary Care Provider [phone] Reason for Visit * Reason Onset Date Comments Follow Up 07/28/2023 C1 chemo Encounter Details Date Type Department Care Team Description 07/28/2023 Telephone Hematology/Oncology Treatment, [place] [address] [place] [id number] Hesham Bray MD [address] [place] [address] Follow Up (C1 chemo) Allergies No known active allergiesdocumented as of [...] [facility] Study: Project # [id number], Remelt Sugar Boiler: Khadar Dodd, PhD. SUMMARY: Goal: Establish test [...] study staff at ; after hours Remelt Sugar Boiler via the [facility] fur cutting machine operator . Please contact study team before resolving/deleting from patients problem list. Study phone number: [phone]. Diagnosis changed due to Research Module. Go to [employer] for study details. Encounter for examination fo r normal comparison and control in clinical research program 11/21/2017 06/30/2022 Overview: DO NOT DELETE - [facility] AREN Study: Project # [id number], Remelt Sugar Boiler: Mykel Gill, MS, MPH. SUMMARY: Goal: Establish [...] study staff at ; after hours Remelt Sugar Boiler via the [facility] hospital fur cutting machine operator . - Please contact study team before resolving/deleting from patients problem list. Study phone number: [phone]. Diagnosis changed due to Research Module. Go [...] 0.6 oz pure alcohol) socially mixed drink [employer] club soda, Food Insecurity Answer Date Recorded [...] encounter Miscellaneous Notes * Telephone Encounter - Araseli Sinha RN - 07/28/2023 2:35 PM EDT HEMATOLOGY/ONCOLOGY INITIAL CHEMO FOLLOW-UP Post chemo side effects: Fatigue, spoke with daughter Erin, states patient is sleeping, no nausea or vomiting, eating small meals throughout the day, has had a "low grade temp" not greater than 100F, unsure of baseline. She states patient has no needs. Explained how to call office/after hours as well. Explained that we are here to help as needed. She verbalizes understanding. Understands post treatment medications: Yes Understands to call office prior to ER visit/or with issues: Yes Aware of next appointment: Yes Additional information: n/a documented in this encounter Plan of Treatment Upcoming Encounters Date Type Specialty Care Team Description 08/08/2023 Telemedicine Palliative Medicine Fatimah Hartman CRNP [address] [place] [address] 08/15/2023 Laboratory Laboratory [place], Lab Scenery [address] [place] [address] 08/15/2023 Office Visit Hematology Oncology Hesham Bray MD [address] [place] [address] 08/15/2023 Hem/Onc Treatment Hematology Oncology [place], Chair 4 Hem Onc Scenery [address] [place] [address] 08/16/2023 Hem/Onc Treatment Hematology Oncology 08/17/2023 Hem/Onc Treatment Hematology Oncology [place], Chair 2 Hem Onc Scenery [address] [place] [address] Health Maintenance Due Date Last Done Comments [...] Documents on File Type Date Recorded Patient Chronometer Assembler And Adjuster Expl anation POLST 07/27/2023 11:14 AM POLST Advance Directives and Living Will 06/24/2022 ADVANCE DIRECTIVE / LIVING WILL Power of Drug Discovery Informatics Specialist 06/24/2022 POWER OF A TTORNEY Latest Code Status on File Code Status Date Activated Date Inactivated Comments No Code 03/20/2023 1:42 AM 03/21/2023 5:59 PM This order reflects the patients wishes and were consensually agreed upon. Question Answer Comments Discussion of Advance Directives occurred with: Patient Care Teams Kitchen Lead Relationship Specialty Start Date End Date Antonio Loza MD [address] [place] [address] PCP - General Family Medicine 07/13/23 documented as of this encounter
--- OUTSIDE RECORDS SUMMARY | 2023-09-26 17:40 | External Medical Summary | Summary of Care ---
Author Name Unknown Organization [facility] Address [address] [place] [address] Phone [phone] Care Team Providers Care Economic Development Specialist Name Role Phone Antonio Loza MD Primary Care Provider [phone] Encounter Details Date Type Department Care Team Description 08/08/2023 Telemedicine Palliative Medicine, [facility] [address] [facility] 5th Floor [place], [place] [id number] Fatimah Hartman CRNP [address] [place] [address] Cancer related pain*; 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) Allergies No known active allergiesdocumented as of this encounter (statuses as of 08/08/2023) Medications Medication Sig Dispensed Refills Start Date [...] at bedtime. 60 Tablet 5 08/08/2023 Active Morphine Sulfate ER 15 [...] as of this encounter (statuses as of 08/08/2023) Active Problems Problem Noted Date Primary cancer [...] as of this encounter (statuses as of 08/08/2023) Resolved Problems Problem Noted Date Resolved Date Encounter for examination fo r normal comparison and control in clinical research program 11/21/2017 06/01/2020 Overview: DO NOT DELETE [facility] DETECT Study: Project # [id number], Edi Architect: Khadar Dodd, PhD. SUMMARY: Goal: Establish [...] contact study staff at ; after hours Edi Architect via the [facility] street cleaning equipment operator . Please contact study team before resolving/deleting from patients problem list. Study phone number: [phone]. Diagnosis changed due to Research Module. Go to [employer] for study details. Encounter for examination fo r normal comparison and control in clinical research program 11/21/2017 06/30/2022 Overview: DO NOT DELETE - [facility] Study: Project # [id number], Edi Architect: Mykel Gill, MS, MPH. SUMMARY: Goal: [...] contact study staff at ; after hours Edi Architect via the [facility] street cleaning equipment operator . - Please contact study team before resolving/deleting from patients problem list. Study phone number: [phone]. Diagnosis changed due to Research Module. Go to [employer] for study details. documented as of this encounter (statuses as of 08/08/2023) Immunizations Name Administration Dates Next Due Covid-19 [...] of this encounter Progress Notes * DAVID Don - 08/08/2023 1:50 PM EDT Palliative Medicine Outpatient Progress Note IN HOME TELEMEDICINE VISIT [facility] [address] [place] [id number] Name: Reba Delaney Date: 08/08/2023 I was in a hospital or clinic location. After connecting through televideo, patient was verified with two unique identifiers. Patient (or authorized legal denial management representative) was then informed that this was a Telemedicine visit and being conducted confidentially over secure lines. Methods to assure confidentiality were taken. Patient acknowledged consent and understanding of privacy and security of the Telemedicine visit. The patient agreed to participate. HPI: Reba Delaney is a 78 year old female with metastatic lung cancer seen in follow-up for goals of care and symptom management. Interval history: Saw patient by video along with her daughter, Erin. Patient looks well and states she is feeling a little better this week than previous. Patient feels terrible for the week following chemo. She was taking the MS Contin twice a day but felt extremely drowsy and terrible during the day, so she is now only taking it at night which is working very well. This helps her pain at night and she is sleeping much better. She is taking oxycodone 5 mg 4 to 5 times a day during the day.She feels that her pain is currently managed well enough and does not want to make any changes. Sheis not moving her bowels very regularly but also has not been taking her senna daily. We discussed taking it every single day and adding MiraLax if needed. Pain is still across the top of the chest and under her arm. She does feel that oxycodone helps. Patient started taking some prednisone that she had at her house on and has been taking 10mg daily. She is wondering if she can continue this to help with her energy and appetite. I stated we typically do not like people to be on prednisone long-term, but I would discuss with her oncologist. I suggested that maybe she would just take it during chemo times which patient would be intereste d in. I will get back to her when I hear back from Dr. Bray. Palliative ROS: Pain: see HPI Nausea/Vomiting no Constipation: yes Confusion: no Sleep: better Activities: ok Appetite: improved Mood: ok Other: no ROS: See HPI. All others negative. 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 Constitutional: no acute distress, thin HENT: normocephalic, atraumatic Eyes: anicteric, sclera and conjunctiva normal Neck: no stridor Chest: normal respiratory effort Abdominal: not assessed via telemed Data Review: External notes reviewed: Dr. Bray's note from 07/17/23 Lab / Imaging Results: Reviewed in EMR, pertinent findings include: 07/24/23: Na 131, Cl 96, albumin3.6, WBC 11.60, hgb 9.9 History obtained from: patient and daughter Discussion with other team members: DR. Bray ASSESSMENT: Reba Delaney is a 78 year old female seen in follow-up for goals of care and pain and symptom management. Cancer related pain Fatigue OIC PLAN: Continue MS Contin at night Continue oxycodone 5mg PO Q4h PRN breakthrough pain. Continue senna daily, add miralax if needed. Sent Rx for both. Sent message to DR. Bray asking about prednisone. Will get back to patient on this. She requested that we call her daughter Erin. Follow up in 3 weeks by video. I spent a total of 40-54 minutes (exact time 42 mins) on the date of service in preparation, delivery, and documentation of the care provided to Reba Delaney excluding any time spent in the performance of separately billed services. DAVID Don Palliative Medicine Nurse Practitioner [facility] [email or web address] Contact via [employer] during business hours. 08/08/2023 documented in this encounter Plan of Treatment Upcoming Encounters Date Type Specialty Care Team Description 08/15/2023 Laboratory Laboratory Deborah Lab Scenery [address] [place] [address] 08/15/2023 Office Visit Hematology Oncology Hesham Bray MD [address] [place] [address] 08/15/2023 Hem/Onc Treatment Hematology Oncology Deborah, Chair 4 Hem Onc Scenery [address] [place] [address] 08/16/2023 Hem/Onc Treatment Hematology Oncology 08/17/2023 Hem/Onc Treatment Hematology Oncology [place], Chair 2 Hem Onc Scenery [address] [place] [address] 08/29/2023 Telemedicine Palliative Medicine Fatimah Hartman CRNP [address] [place] [address] Health Maintenance Due Date [...] on File Type Date Recorded Patient Manager Ent Expl anation POLST 07/27/2023 11:14 AM POLST Advance Directives and Living Will 06/24/2022 ADVANCE DIRECTIVE / LIVING WILL Power of Aviation Survival Technician 06/24/2022 POWER OF A TTORNEY Latest Code Status on File Code Status Date Activated Date Inactivated Comments No Code 03/20/2023 1:42 AM 03/21/2023 5:59 PM This order reflects the patients wishes and were consensually agreed upon. Question Answer Comments Discussion of Advance Directives occurred with: Patient Care Teams Economic Development Specialist Relationship Specialty Start Date End Date Antonio Loza MD [address] [place] [address] PCP - General Family Medicine 07/13/23 documented as of this encounter
--- OUTSIDE RECORDS SUMMARY | 2023-09-26 17:40 | External Medical Summary | Summary of Care ---
Author Name Unknown Organization [facility] Address [address] [place] [address] Phone [phone] Care Team Providers Care Naval Aircrewman Name Role Phone Antonio Loza MD Primary Care Provider [phone] Reason for Visit * Reason Onset Date Comments Information 08/09/2023 Encounter Details Date Type Department Care Team Description 08/09/2023 Telephone Hematology/Oncology Treatment, [place] [address] [place] [phone] Hesham Bray MD [address] [place] [address] Information Allergies No known active allergiesdocumented as of this encounter (statuses as of 08/09/2023) Medications Medication Sig Dispensed Refills Start Date [...] as of this encounter (statuses as of 08/09/2023) Active Problems Problem Noted Date Primary cancer [...] as of this encounter (statuses as of 08/09/2023) Resolved Problems Problem Noted Date Resolved Date Encounter for examination fo r normal comparison and control in clinical research program 11/21/2017 06/01/2020 Overview: DO NOT DELETE [facility] DETECT Study: Project # [id number], Student Officer: Khadar Dodd, PhD. SUMMARY: Goal: Establish [...] study staff at ; after hours Student Officer via the [facility] waste water treatment plant operator . Please contact study team before resolving/deleting from patients problem list. Study phone number: [phone]. Diagnosis changed due to Research Module. Go to Sn[employer] for study details. Encounter for examination fo r normal comparison and control in clinical research program 11/21/2017 06/30/2022 Overview: DO NOT DELETE - [facility] DETECT Study: Project # [id number], Student Officer: Mykel Gill, MS, MPH. SUMMARY: Goal: [...] study staff at ; after hours Student Officer via the [facility] waste water treatment plant operator . - Please contact study team before resolving/deleting from patients problem list. Study phone number: [phone]. Diagnosis changed due to Research Module. Go to [employer] for study details. documented as of this encounter (statuses as of 08/09/2023) Immunizations Name Administration Dates Next Due Covid-19 [...] Miscellaneous Notes * Telephone Encounter - Shavon Lacy RN - 08/09/2023 2:36 PM EDT Received message from palliative care- patients daughter reported that patient had 10mg tablets of prednisone left at home that she started taking every day due to fatigue/ low energy. Patient currently on tecentriq, should not take prednisone daily. MyG sent to patient/ daughter. documented in this encounter Plan of Treatment Upcoming Encounters Date Type Specialty Care Team Description 08/15/2023 Laboratory Laboratory [place], Lab Scenery [address] [place] [address] 08/15/2023 Office Visit Hematology Oncology Hesham Bray MD [address] [place] [address] 08/15/2023 Hem/Onc Treatment Hematology Oncology Deborah, Chair 4 Hem Onc Scenery [address] [place] [address] 08/16/2023 Hem/Onc Treatment Hematology Oncology 08/17/2023 Hem/Onc Treatment Hematology Oncology Deborah, Chair 2 Hem Onc Scenery [address] [place] [address] 08/29/2023 Telemedicine Palliative Medicine Fatimah Hartman CRNP [address] [facility] [place] [phone] Health Maintenance Due Date Last Done Comments [...] Documents on File Type Date Recorded Patient Commission Broker Expl anation POLST 07/27/2023 11:14 AM POLST Advance Directives and Living Will 06/24/2022 ADVANCE DIRECTIVE / LIVING WILL Power of System Software Developer 06/24/2022 POWER OF A TTORNEY Latest Code Status on File Code Status Date Activated Date Inactivated Comments No Code 03/20/2023 1:42 AM 03/21/2023 5:59 PM This order reflects the patients wishes and were consensually agreed upon. Question Answer Comments Discussion of Advance Directives occurred with: Patient Care Teams Naval Aircrewman Relationship Specialty Start Date End Date Antonio Loza MD [address] [place] [address] PCP - General Family Medicine 07/13/23 documented as of this encounter
--- OUTSIDE RECORDS SUMMARY | 2023-09-26 17:40 | External Medical Summary | Summary of Care ---
Author Name Unknown Organization [facility] Address [address] [place] [address] Phone [phone] Care Team Providers Care Carver Hand Name Role Phone Antonio Loza MD Primary Care Provider [phone] Encounter Details Date Type Department Care Team Description 04/13/2023 Orders Only Hematology Oncology [facility] [address] [place] [address] Traci Mitchell MD [address] [place] [address] Allergies No known active allergiesdocumented as of this encounter (statuses as of 08/10/2023) Medications Medication Sig Dispensed Refills Start Date [...] as of this encounter (statuses as of 08/10/2023) Active Problems Problem Noted Date Primary cancer [...] as of this encounter (statuses as of 08/10/2023) Resolved Problems Problem Noted Date Resolved Date Encounter for examination fo r normal comparison and control in clinical research program 11/21/2017 06/01/2020 Overview: DO NOT DELETE [facility] DETECT Study: Project # [id number], Town Clerk: Khadar Dodd, PhD. SUMMARY: Goal: Establish [...] contact study staff at ; after hours Town Clerk via the [facility] hospital water system operator . Please contact study team before resolving/deleting from patients problem list. Study phone number: [phone]. Diagnosis changed due to Research Module. Go to [employer] for study details. Encounter for examination fo r normal comparison and control in clinical research program 11/21/2017 06/30/2022 Overview: DO NOT DELETE - [facility] Study: Project # [id number], Town Clerk: Mykel Gill, MS, MPH. SUMMARY: Goal: [...] contact study staff at ; after hours Town Clerk via the [facility] hospital water system operator . - Please contact study team before resolving/deleting from patients problem list. Study phone number: [phone]. Diagnosis changed due to Research Module. Go to [employer]apshot for study details. documented as of this encounter (statuses as of 08/10/2023) Immunizations Name Administration Dates Next Due Covid-19 [...] 08/15/2023 Laboratory Laboratory Moriah Cabrera [address] [place] [address] 08/15/2023 Office Visit Hematology Oncology Hesham Bray MD [address] [place] [address] 08/15/2023 Hem/Onc Treatment Hematology Oncology [place], Chair 4 Hem Onc Scenery [address] [facility] [address] 08/16/2023 Hem/Onc Treatment Hematology Oncology 08/17/2023 Hem/Onc Treatment Hematology Oncology [place], Chair 2 Hem Onc Scenery [address] [place] [address] 08/29/2023 Telemedicine Palliative Medicine Fatimah Hartman, DAVID [address] [place] [address] Health Maintenance Due Date Last Done Comments [...] Documents on File Type Date Recorded Patient Paddle Dyeing Machine Operator Expl anation POLST 07/27/2023 11:14 AM POLST Advance Directives and Living Will 06/24/2022 ADVANCE DIRECTIVE / LIVING WILL Power of Manager Government 06/24/2022 POWER OF A TTORNEY Latest Code Status on File Code Status Date Activated Date Inactivated Comments No Code 03/20/2023 1:42 AM 03/21/2023 5:59 PM This order reflects the patients wishes and were consensually agreed upon. Question Answer Comments Discussion of Advance Directives occurred with: Patient Care Teams Carver Hand Relationship Specialty Start Date End Date Antonio Loza MD [address] [place] [address] PCP - General Family Medicine 07/13/23 documented as of this encounter
--- OUTSIDE RECORDS SUMMARY | 2023-09-26 17:40 | External Medical Summary | Summary of Care ---
Author Name Unknown Organization [facility] Address [address] [place] [address] Phone [phone] Care Team Providers Care Gas Producer Name Role Phone Antonio Loza MD Primary Care Provider [phone] Reason for Visit * Reason Onset Date Comments Information 08/10/2023 Encounter Details Date Type Department Care Team Description 08/10/2023 Telephone Hematology/Oncology Treatment, [place] [address] [place] [phone] Hesham Bray MD [address] [place] [address] Information Allergies No known active allergiesdocumented as of this encounter (statuses as of 08/11/2023) Medications Medication Sig Dispensed Refills Start Date [...] as of this encounter (statuses as of 08/11/2023) Active Problems Problem Noted Date Primary cancer [...] as of this encounter (statuses as of 08/11/2023) Resolved Problems Problem Noted Date Resolved Date Encounter for examination fo r normal comparison and control in clinical research program 11/21/2017 06/01/2020 Overview: DO NOT DELETE [facility] DETECT Study: Project # [id number], Chimney Mechanic: Khadar Dodd, PhD. SUMMARY: Goal: Establish [...] study staff at ; after hours Chimney Mechanic via the [facility] tube cutter operator . Please contact study team before resolving/deleting from patients problem list. Study phone number: [phone]. Diagnosis changed due to Research Module. Go to [employer] for study details. Encounter for examination fo r normal comparison and control in clinical research program 11/21/2017 06/30/2022 Overview: DO NOT DELETE - [facility] DETECT Study: Project # [id number], Chimney Mechanic: Mykel Gill, MS, MPH. SUMMARY: Goal: [...] study staff at ; after hours Chimney Mechanic via the [facility] hospital tube cutter operator . - Please contact study team before resolving/deleting from patients problem list. Study phone number: [phone]. Diagnosis changed due to Research Module. Go to [employer] for study details. documented as of this encounter (statuses as of 08/11/2023) Immunizations Name Administration Dates Next Due Covid-19 [...] further concerns. Reviewed appts for labs/ Dr Katarina/ treatment 08/15. Patient verbalized understanding. * Telephone [...] Deborah, Lab Scenery [address] [place] [address] 08/15/2023 Office Visit Hematology Oncology Hesham Bray MD [address] [place] [address] 08/15/2023 Hem/Onc Treatment Hematology Oncology [place], Chair 4 Hem Onc Scenery [address] [place] [address] 08/16/2023 Hem/Onc Treatment Hematology Oncology 08/17/2023 Hem/Onc Treatment Hematology Oncology Deborah, Chair 2 Hem Onc Scenery [address] [place] [address] 08/29/2023 Telemedicine Palliative Medicine Fatimah Hartman CRNP [address] [facility] [place] [phone] Health Maintenance Due Date Last Done Comments [...] Documents on File Type Date Recorded Patient Flatware Maker Expl anation POLST 07/27/2023 11:14 AM POLST Advance Directives and Living Will 06/24/2022 ADVANCE DIRECTIVE / LIVING WILL Power of Highway Patrol Pilot 06/24/2022 POWER OF A TTORNEY Latest Code Status on File Code Status Date Activated Date Inactivated Comments No Code 03/20/2023 1:42 AM 03/21/2023 5:59 PM This order reflects the patients wishes and were consensually agreed upon. Question Answer Comments Discussion of Advance Directives occurred with: Patient Care Teams Gas Producer Relationship Specialty Start Date End Date Antonio Loza MD [address] [place] [address] PCP - General Family Medicine 07/13/23 documented as of this encounter
--- OUTSIDE RECORDS SUMMARY | 2023-09-26 17:40 | External Medical Summary | Summary of Care ---
Author Name Unknown Organization [facility] Address [address] [place] [address] Phone [phone] Care Team Providers Care Plant Utility Person Name Role Phone Antonio Loza MD Primary Care Provider [phone] Reason for Visit * Reason Onset Date Comments Information 08/10/2023 Encounter Details Date Type Department Care Team Description 08/10/2023 Telephone Hematology/Oncology Treatment, [place] [address] [place] [phone] Hesham Bray MD [address] [place] [address] Information Allergies No known active allergiesdocumented as [...] [facility] Study: Project # [id number], Cigarette Filter Inspector: Khadar Dodd, PhD. SUMMARY: Goal: Establish [...] contact study staff at ; after hours Cigarette Filter Inspector via the [facility] tempering machine operator . Please contact study team before resolving/deleting from patients problem list. Study phone number: [phone]. Diagnosis changed due to Research Module. Go to [employer]apshot for study details. Encounter for examination fo r normal comparison and control in clinical research program 11/21/2017 06/30/2022 Overview: DO NOT DELETE - [facility] DETECT Study: Project # [id number], Cigarette Filter Inspector: Mykel Gill, MS, MPH. SUMMARY: Goal: [...] contact study staff at ; after hours Cigarette Filter Inspector via the [facility] hospital tempering machine operator . - Please contact study team before resolving/deleting from patients problem list. Study phone number: [phone]. Diagnosis changed due to Research Module. Go [...] Deborah, Lab Scenery [address] [place] [address] 08/15/2023 Office Visit Hematology Oncology Hesham Bray MD [address] [place] [address] 08/15/2023 Hem/Onc Treatment Hematology Oncology [place], Chair 4 Hem Onc Scenery [address] [place] [address] 08/16/2023 Hem/Onc Treatment Hematology Oncology 08/17/2023 Hem/Onc Treatment Hematology Oncology [place], Chair 2 Hem Onc Scenery [address] [place] [address] 08/29/2023 Telemedicine Palliative Medicine Fatimah Hartman CRNP [address] [place] [address] Health Maintenance Due Date Last Done Comments [...] Documents on File Type Date Recorded Patient Verification Lead Expl anation POLST 07/27/2023 11:14 AM POLST Advance Directives and Living Will 06/24/2022 ADVANCE DIRECTIVE / LIVING WILL Power of Traveling Missionary 06/24/2022 POWER OF A TTORNEY Latest Code Status on File Code Status Date Activated Date Inactivated Comments No Code 03/20/2023 1:42 AM 03/21/2023 5:59 PM This order reflects the patients wishes and were consensually agreed upon. Question Answer Comments Discussion of Advance Directives occurred with: Patient Care Teams Plant Utility Person Relationship Specialty Start Date End Date Antonio Loza MD [address] [place] [address] PCP - General Family Medicine 07/13/23 documented as of this encounter
--- OUTSIDE RECORDS SUMMARY | 2023-09-26 17:40 | External Medical Summary | Summary of Care ---
Author Name Unknown Organization [facility] Address [address] [place] [address] Phone [phone] Care Team Providers Care Java Support Engineer Name Role Phone Antonio oLza MD Primary Care Provider [phone] Reason for Visit * Reason Onset Date Comments Information 08/10/2023 Encounter Details Date Type Department Care Team Description 08/10/2023 Telephone Hematology/Oncology Treatment, [place] [address] [place] [id number] Hesham Bray MD [address] [place] [address] Information Allergies No known active allergiesdocumented as [...] [facility] DETECT Study: Project # [id number], Handy Worker: Khadar Dodd, PhD. SUMMARY: Goal: Establish [...] contact study staff at ; after hours Handy Worker via the [facility] electrode cleaning machine operator . Please contact study team before resolving/deleting from patients problem list. Study phone number: [phone]. Diagnosis changed due to Research Module. Go to Snapshot for study details. Encounter for examination fo r normal comparison and control in clinical research program 11/21/2017 06/30/2022 Overview: DO NOT DELETE - [facility] DETECT Study: Project # [id number], Handy Worker: Mykel Gill, MS, MPH. SUMMARY: Goal: [...] contact study staff at ; after hours Handy Worker via the [facility] hospital electrode cleaning machine operator . - Please contact study team before resolving/deleting from patients problem list. Study phone number: [phone]. Diagnosis changed due to Research Module. Go [...] if pain continues or if it worsens. Patients daughter did not read MyG sent [...] Deborah, Lab Scenery [address] [place] [address] 08/15/2023 Office Visit Hematology Oncology Hesham Bray MD [address] [place] [address] 08/15/2023 Hem/Onc Treatment Hematology Oncology [place], Chair 4 Hem Onc Scenery [address] [place] [address] 08/16/2023 Hem/Onc Treatment Hematology Oncology 08/17/2023 Hem/Onc Treatment Hematology Oncology [place], Chair 2 Hem Onc Scenery [address] [place] [address] 08/29/2023 Telemedicine Palliative Medicine [facility] Hartman CR[facility] [address] [facility] [address] Health Maintenance Due Date Last Done [...] on File Type Date Recorded Patient Core Paster Expl anation POLST 07/27/2023 11:14 AM POLST Advance Directives and Living Will 06/24/2022 ADVANCE DIRECTIVE / LIVING WILL Power of Liquor Tester 06/24/2022 POWER OF A TTORNEY Latest Code Status on File Code Status Date Activated Date Inactivated Comments No Code 03/20/2023 1:42 AM 03/21/2023 5:59 PM This order reflects the patients wishes and were consensually agreed upon. Question Answer Comments Discussion of Advance Directives occurred with: Patient Care Teams Java Support Engineer Relationship Specialty Start Date End Date Antonio Loza MD [address] [place] [address] PCP - General Family Medicine 07/13/23 documented as of this encounter
--- OUTSIDE RECORDS SUMMARY | 2023-09-26 17:41 | External Medical Summary | Summary of Care ---
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) Encounter for antineoplastic chemotherapy Chemotherapy induced nausea and vomiting Procedures OK CARBOPLATIN INJECTION OK FOSAPREPITANT INJECTION OK ETOPOSIDE 10 MG INJ OK INJ, ATEZOLIZUMAB,10 MG Hesham Bray MD [address] [place] [address] Anc Hem/Onc [place] [address] [place] [address] Referral ID Status Reason Start Date Expiration Date V isits Requested Visits Authorized [id number] Authorized 07/18/2023 10/29/2099 999 999 Encounter Details Date Type Department Care Team Description 07/24/2023 Hem/Onc Treatment Hematology/Oncology Treatment, [place] [address] [place] [address] [place], Chair 11 Hem Onc [place] [address] [place] [address] 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)*; Encounter for antineoplastic chemotherapy; Chemotherapy induced nausea and vomiting Allergies No known active allergiesdocumented as of this encounter (statuses as of 07/24/2023) Medications Medication Sig Dispensed Refills Start Date [...] Pain, Moderate. 60 Tablet 0 07/17/2023 Active fentaNYL 12 MCG/HR Transdermal Patch 72 Hour (Duragesic)Indicatio ns:Chemotherapy induced nausea and vomiting,Bilateral pulmonary embolism (HCC),Primary cancer of left upper lobe of lung (HCC) Place 1 Patch over 72 hours topically on the skin every 3 days. 4 Patch 0 07/17/2023 Active Apixaban 5 MG Oral Tablet (Eliquis)Indications :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 60 Tablet 5 07/18/2023 Active documented as of this encounter (statuses as of 07/24/2023) Active Problems Problem Noted Date Primary cancer [...] as of this encounter (statuses as of 07/24/2023) Resolved Problems Problem Noted Date Resolved Date Encounter for examination fo r normal comparison and control in clinical research program 11/21/2017 06/01/2020 Overview: DO NOT DELETE [facility] DETECT Study: Project # [id number], Geological Aide: Khadar Dodd, PhD. SUMMARY: Goal: Establish test [...] study staff at ; after hours Geological Aide via the [facility] dumper bailer operator . Please contact study team before resolving/deleting from patients problem list. Study phone number: [phone]. Diagnosis changed due to Research Module. Go to Snapshot for study details. Encounter for examination fo r normal comparison and control in clinical research program 11/21/2017 06/30/2022 Overview: DO NOT DELETE - [facility] DETECT Study: Project # [id number], Geological Aide: Mykel Gill, MS, MPH. SUMMARY: Goal: Establish [...] study staff at ; after hours Geological Aide via the [facility] hospital dumper bailer operator . - Please contact study team before resolving/deleting from patients problem list. Study phone number: [phone]. Diagnosis changed due to Research Module. Go to Snapshot for study details. documented as of this encounter (statuses as of 07/24/2023) Immunizations Name Administration Dates Next Due Covid-19 [...] Sign Reading Time Taken Comments Blood Pressure 138/64 07/24/2023 11:30 AM EDT Pulse 75 07/24/2023 11:30 AM EDT Temperature 36.5 C (97.7 F) 07/24/2023 11:30 AM E DT Respiratory Rate 16 07/24/2023 11:30 AM EDT Oxygen Saturation 96% 07/24/2023 11:30 AM EDT Inhaled Oxygen Concentration - - Weight 49.4 kg (109 lb) 07/24/2023 11:30 AM EDT Height - - Body Mass Index 19.31 07/17/2023 2:14 PM EDT documented in this encounter Functional [...] as of this encounter Nursing Notes * Lisa Platt RN - 07/24/2023 4:31 PM EDT Chair 7. IV inserted into L arm without difficulty. Patient here for C1/D1 - Tecentriq/Carboplatin/Etoposide. Patient was educated about establishing IV access, giving premeds, taking PRN home medications, process of getting medication from pharmacy, layout of treatment room, use of call elder, etc. Patient communicated understanding and denied any further questions, concerns, needs. Chemo agents C1/D1 - Tecentriq/Carbo/Etoposide Appetite good Nausea/Vomiting no Diarrhea no Constipation no Mucositis no Fatigue no Bleeding no Infection no Rash no Numbness tingling no Pain occasional pain under L arm at lymph node site per pt Radiation no ABN Labs WNL for tx today Alt in Tx: N/A Return in 1 day Patient is comfortable and denies further needs at this time. Safety and Risk for Injury Patient will remain free from injury. Ensure appropriate safety devices are available. Provide and maintain safe environment. Goals: Patient will remain free from injury. Possible barriers to meeting goals: ambulating with IV pole, age Stability of the patient: Moderately stable - low risk of patient condition declining or worsening Summary regarding today's goals: Met: pt remained free of harm today Functional status at today's visit: Fully active, able to carry on all pre-disease performance without restriction The drug name, dose, infusion volume, rate and route of administration, expiration date and time, appearance and physical integrity of the drug and rate set on the pump and sequencing of drug administration (as applicable) were verified by me and second sign-in RN. Patient was assessed for symptoms or adverse side effects during treatment. Patient tolerated treatment well without any acute issues or problems. Patient left facility in stable condition and denied any further needs. documented in this encounter Plan of Treatment Upcoming Encounters Date Type Specialty Care Team Description 07/25/2023 Hem/Onc Treatment Hematology Oncology [place], Chair 9 Hem Onc Scenery [address] [place] [address] 07/26/2023 Office Visit Palliative Medicine Lilibeth Chavez MD [address] [place] [phone] 07/26/2023 Hem/Onc Treatment Hematology Oncology [place], Chair 10 Hem Onc Scenery [address] [place] [address] 08/15/2023 Laboratory Laboratory Deborah, Lab Scenery [address] [place] [address] 08/15/2023 Office Visit Hematology Oncology Hesham Bray MD [address] [place] [address] 08/15/2023 Hem/Onc Treatment Hematology Oncology [place], Chair 4 Hem Onc Scenery [address] [place] [address] 08/16/2023 Hem/Onc Treatment Hematology Oncology 08/17/2023 Hem/Onc Treatment Hematology Oncology [place], Chair 2 Hem Onc Scenery [address] [place] [address] Health Maintenance Due Date Last Done Comments [...] ONCE PRN Other, Hypersensitivity Reaction, Starting on Mon07/24/23 at 1152, Until Mon07/25/23 at 1151, For 24 hours EPINEPHrine 1 MG/ML inj 0.3 mg 0.3 mg, Intramuscular, ONCE PRN Other, Hypersensitivity Reaction or Anaphylaxis, Starting on Mon07/24/23 at 1152, Until Mon07/25/23 at 1151, For 24 hours hEParin 100 UNIT/ML Lock Flush inj 500 Units 500 Units (5 mL), IV Lock, PRN Other, IV Flush, Starting on Mon07/24/23 at 1152, Until Mon07/25/23 at 1151, For 24 hours, Do not flush if lock, PICC, or central line not in place; IV infusing or unable to flush. Given 07/24/2023 3:38 PM EDT 500 Units Hydrocortisone Sod Suc (PF) (Solu-Cortef) inj 100 mg 100 mg, IV Push, ONCE PRN Other, Hypersensitivity Reaction, Starting on Mon07/24/23 at 1152, Until Mon07/25/23 at 1151, For 24 hours NSS infusion Intravenous, at 50 mL/hr, PRN, Starting on Mon07/24/23 at 1300, Until Discontinued, KVO Start Infusion 07/24/2023 11:45 AM EDT 50 mL/hr oxygen GAS Inhalation, OXYGEN, First dose on Mon07/24/23 at 1600, Until Discontinued, Device/Managed by: Low [...] Push, PRN Other, IV Flush, Starting on Mon07/24/23 at 1152, Until Mon07/25/23 at 1151, For 24 hours, Do not flush if lock, PICC, or central line not in place; IV infusing or unable to flush. Given 07/24/2023 3:38 PM EDT 10 mL Inactive Administered Medications - up to 3 most recent administrations Medication Order MAR Action Action Date Dose Rate Site Atezolizumab (Tecentriq) 1,200 mg in NSS 250 mL infusion 1,200 mg, IV Piggyback, ONCE, 1 dose, On Mon07/24/23 at 1330, Administer over 60 Minutes, Administer first infusion over 60 minutes and if tolerated, subsequent doses may be infused over 30 minutes. Start Infusion 07/24/2023 12:43 PM EDT 1,200 mg 250 mL/hr CARBOplatin (Paraplatin) 328 mg in D5W 250 mL infusion 328 mg (rounded from 327.5 mg, Target AUC = 5), IV Piggyback, at 500 mL/hr Administer over 30 Minutes, PROTECT FROM LIGHT (Max Creatinine Clearance at 125 ml/min for calculating AUC dose), ONCE, 1 dose, On Mon07/24/23 at 1430 Start Infusion 07/24/2023 2:01 PM EDT 328 mg 500 mL/hr etoposide (VEPESID) 150 mg in NSS 500 mL infusion 150 mg (rounded from 149 mg = 100 mg/m2 1.49 m2 Treatment Plan BSA from Recorded weight), IV Piggyback, ONCE, 1 dose, On Mon07/24/23 at 1500, Administer over 60 Minutes, Recommended concentration is less than or equal to 0.4 mg/mL. If concentration is greater than 0.4 mg/mL recommend to administer through 0.22 micron low protein binding filter. Start Infusion 07/24/2023 2:33 PM EDT 150 mg 500 mL/hr fosaprepitant Dimeglumine (Emend) 150 mg, ondansetron (Zofran) 16 mg, dexamethasone sodium phosphate 12 mg in NSS 250 mL Infusion 150 mg, IV Piggyback, ONCE, 1 dose, On Mon07/24/23 at 1300, Administer over 30 Minutes, Give 30 minutes prior to chemotherapy. Infuse over 30 minutes. Start Infusion 07/24/2023 11:56 AM EDT 150 mg 500 mL/hr documented in this encounter Advance Directives Documents on File Type Date Recorded Patient Filler Room Attendant Expl anation Advance Directives and Living Will 06/24/2022 ADVANCE DIRECTIVE / LIVING WILL Power of Psychiatric Social Worker Supervisor 06/24/2022 POWER OF A TTORNEY Latest Code Status on File Code Status Date Activated Date Inactivated Comments No Code 03/20/2023 1:42 AM 03/21/2023 5:59 PM This order reflects the patients wishes and were consensually agreed upon. Question Answer Comments Discussion of Advance Directives occurred with: Patient Care Teams Emergency Room Technician Relationship Specialty Start Date End Date Antonio Loza MD [address] [place] [address] PCP - General Family Medicine 07/13/23 documented as of this encounter
--- OUTSIDE RECORDS SUMMARY | 2023-09-26 17:41 | External Medical Summary | Summary of Care ---
Author Name Unknown Organization [facility] Address [address] [place] [address] Phone [phone] Care Team Providers Care Golf Course Designer Name Role Phone Antonio Loza MD Primary Care Provider [phone] Reason for Visit * Reason Comments Medication Management Encounter Details Date Type Department Care Team Description 07/19/2023 Pharmacy Pharmacy Hematology Oncology [facility] [address] [place] [address] [facility] [place] Hem/Onc [address] [place] [address] Primary cancer of left upper lobe of lung (HCC)* Allergies No known active allergiesdocumented as of this encounter (statuses as of 07/17/2023) Medications Medication Sig Dispensed Refills Start Date [...] 1 Tablet before bedtime. 60 Tablet 1 07/17/2023 Active oxyCODONE HCl 5 MG Oral Tablet (Oxy IR)Indications:Pr imary cancer of left upper lobe of lung (HCC) Take 1 Tablet by mouth every 4 hours as needed for Pain, Moderate. 60 Tablet 0 07/17/2023 Active fentaNYL 12 MCG/HR Transdermal Patch 72 Hour (Duragesic)Indica tions:Chemotherap y induced nausea and vomiting,Bilatera l pulmonary embolism (HCC),Primary cancer of left upper lobe of lung (HCC) Place 1 Patch over 72 hours topically on the skin every 3 days. 4 Patch 0 07/17/2023 Active Sotorasib 120 MG Oral TabletIndications :Primary cancer of left upper lobe of lung (HCC) Take 480 mg by mouth in the morning. 120 Tablet 5 06/15/2023 3 Discontinued documented as of this encounter (statuses as of 07/17/2023) Active Problems Problem Noted Date Primary cancer [...] as of this encounter (statuses as of 07/17/2023) Resolved Problems Problem Noted Date Resolved Date Encounter for examination fo r normal comparison and control in clinical research program 11/21/2017 06/01/2020 Overview: [facility] DELETE [facility] Study: Project # [id number], Cdl Service Technician: Khadar Dodd, PhD. SUMMARY: Goal: [...] contact study staff at ; after hours Cdl Service Technician via the [facility] hay rake operator . Please contact study team before resolving/deleting from patients problem list. Study phone number: [phone]. Diagnosis changed due to Research Module. Go to Snapshot for study details. Encounter for examination fo r normal comparison and control in clinical research program 11/21/2017 06/30/2022 Overview: DO NOT DELETE - [facility] Study: Project # [id number], Cdl Service Technician: Mykel Gill, MS, MPH. SUMMARY: [...] contact study staff at ; after hours Cdl Service Technician via the [facility] hay rake operator . - Please contact study team before resolving/deleting from patients problem list. Study phone number: [phone]. Diagnosis changed due to Research Module. Go to ZeePearl for study details. documented as of this encounter (statuses as of 07/17/2023) Immunizations Name Administration Dates Next Due Covid-19 [...] this encounter Progress Notes * Karo Jean, [facility] - 07/17/2023 4:16 PM EDT MEDICATION THERAPY MANAGEMENT SOTORASIB TREATMENT PROGRESS NOTE Reba Delaney [id number] Patient Phone Numbers Cell Home [phone] DaughterErin Lab: SP Specialty Pharmacy: [facility] Specialty Communication: Chart review Treatment: Medication: Sotorasib (Lumakras) Indication/Staging/Diagnosis Code: NSCLC w/ mets C34.12 Dose: 480 mg daily ( 06/08/23) Administration: +/- food Start Date: 04/28/23 Primary Embossing Press Operator Molded Goods/Oncologist: Katarina (formerly Dr. Mitchell) Supportive Care Meds: Olanzapine Ondansetron Dose adjustment / medication hold: 06/01/23-06/07/23: sotorasib held for elevated LFTs 06/08/23: sotorasib dose reduced to 480mg daily for elevated LFTs Assessment and Plan: Per OV 07/17/23, pt has disease progression and therapy changed to tecentriq, carboplatin, etoposide MTM to discharge pt from clinic at this time Karo Jean, PharmD, BCOP Clinical Pharmacist, [facility] Oral Chemotherapy [facility] 07/17/2023, 4:18 PM Time Spent on Encounter: 6 - 10 minutes Encounter Group: Oncology Encounter Interventions Item Category: Oral Chemotherapy Other: Sotorasib Problem/Rationale: Indication: Unnecessary medication therapy - No medical indication at this time Pharmacist Intervention(s): Medication discontinued and Medication reconciliation Magnitude of Intervention: Modification of medication for asymtomatic patients (Level 2) documented in this encounter Plan of Treatment Upcoming Encounters Date Type Specialty Care Team Description 07/20/2023 Nurse Only Hematology Oncology [place], Nurse Hem Onc [facility] [address] [place] [address] 07/26/2023 Office Visit Palliative Medicine Lilibeth Chavez MD [address] [place] [address] Health Maintenance Due Date Last Done [...] Documents on File Type Date Recorded Patient Rock Breaker Expl anation Advance Directives and Living Will 06/24/2022 ADVANCE DIRECTIVE / LIVING WILL Power of International Sourcing Manager 06/24/2022 POWER OF A TTORNEY Latest Code Status on File Code Status Date Activated Date Inactivated Comments No Code 03/20/2023 1:42 AM 03/21/2023 5:59 PM This order reflects the patients wishes and were consensually agreed upon. Question Answer Comments Discussion of Advance Directives occurred with: Patient Care Teams Golf Course Designer Relationship Specialty Start Date End Date Antonio Loza MD [address] [place] [address] PCP - General Family Medicine 07/13/23 documented as of this encounter
--- OUTSIDE RECORDS SUMMARY | 2023-09-26 17:41 | External Medical Summary ---
Author Name Unknown Address Unknown Organization K09:[facility] [place] [facility] [place] [address] Laboratory Report Ordering Provider Test Date Status NESS PADILLA 07/24/2023 10:35:26 Final Observation Date Value Abnormality Reference (Units ) Status SYNC LEUKOCYTES IN BLOOD BY AUTOMATED COUNT 07/24/2023 10:35:26 11.60 Above high normal 4.00-10.80 (K/uL) Final Segs 07/24/2023 10:35:26 72.0 40.0-75.0 (%) Final Lymphs % 07/24/2023 10:35:26 14.0 Below low normal 18.0-42.0 (%) Final Monos 07/24/2023 10:35:26 13.1 Above high normal 1.0-11.0 (%) Final Eosinophils 07/24/2023 10:35:26 0.7 0.0-6.0 (%) Final Basos 07/24/2023 10:35:26 0.2 0.0-2.0 (%) Final Absolute Segs 07/24/2023 10:35:26 8.36 Above high normal 1.80-7.70 (K/uL) Final Lymphs, absolute 07/24/2023 10:35:26 1.62 1.00-4.80 (K/ul) Final Monos, Abs 07/24/2023 10:35:26 1.52 Above high normal 0.00-1.10 (K/uL) Final Eos, Abs 07/24/2023 10:35:26 0.08 0.00-0.70 (K/uL) Final Basos, Abs 07/24/2023 10:35:26 0.02 0.00-0.20 (K/uL) Final Performing Location [facility] [place] [address] [place] [address]
--- OUTSIDE RECORDS SUMMARY | 2023-09-26 17:41 | External Medical Summary | Summary of Care ---
Author Name Unknown Organization [facility] Address [address] [place] [address] Phone [phone] Care Team Providers Care Cork Wirer Name Role Phone Antonio Loza MD Primary Care Provider [phone] Reason for Visit * Reason Onset Date Comments Precert Future 07/17/2023 Tecentriq, carbo , etoposide Encounter Details Date Type Department Care Team Description 07/17/2023 Telephone Hematology/Oncology Treatment, [place] [address] [place] [phone] Hesham Bray MD [address] [place] [address] Precert Future (Tecentriq, carbo, etoposide) Allergies No known active allergiesdocumented as of this encounter (statuses as of 07/19/2023) Medications Medication Sig Dispensed Refills Start Date [...] fentaNYL 12 MCG/HR Transdermal Patch 72 Hour (Duragesic)Indic ations:Chemother apy induced nausea and vomiting,Bilater al pulmonary embolism (HCC),Primary cancer of left upper lobe of lung (HCC) Place 1 Patch over 72 hours topically on the skin every 3 days. 4 Patch 0 07/17/2023 Active Sotorasib 120 MG Oral TabletIndication s:Primary cancer of left upper lobe of lung (HCC) Take 480 mg by mouth in the morning. 120 Tablet 5 06/15/2023 07/17/20 23 Discontinued Apixaban 5 MG Oral Tablet (Eliquis)Indicat ions: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 60 Tablet 1 07/17/2023 07/17/20 23 Discontinued(Ref ill) documented as of this encounter (statuses as of 07/19/2023) Active Problems Problem Noted Date Primary cancer [...] as of this encounter (statuses as of 07/19/2023) Resolved Problems Problem Noted Date Resolved Date Encounter for examination fo r normal comparison and control in clinical research program 11/21/2017 06/01/2020 Overview: DO NOT DELETE [facility] DETECT Study: Project # [id number], Napper Grinder: Khadar Dodd, PhD. SUMMARY: Goal: Establish test [...] contact study staff at ; after hours Napper Grinder via the [facility] lift operator . Please contact study team before resolving/deleting from patients problem list. Study phone number: [phone]. Diagnosis changed due to Research Module. Go to Snapshot for study details. Encounter for examination fo r normal comparison and control in clinical research program 11/21/2017 06/30/2022 Overview: DO NOT DELETE - [facility] Study: Project # [id number], Napper Grinder: Mykel Gill, MS, MPH. SUMMARY: Goal: Establish [...] contact study staff at ; after hours Napper Grinder via the [facility] lift operator . - Please contact study team before resolving/deleting from patients problem list. Study phone number: [phone]. Diagnosis changed due to Research Module. Go to [employer] for study details. documented as of this encounter (statuses as of 07/19/2023) Immunizations Name Administration Dates Next Due Covid-19 [...] encounter Miscellaneous Notes * Telephone Encounter - Wendy Garza RN - 07/19/2023 10:46 AM EDT Tecentriq available. Patient is coming tomorrow for nurse education. Scheduling: please call patients daughter to schedule 3 day treatment or discuss when patient comesin tomorrow. Day 1: - labs "CBCd, CMP, TSH/T4"- can do day prior if patient prefers - 503 schedule for 4 hour appt "C1D1 tecentriq, carbo, etoposide" ([place]) Day 2: - 503 schedule for 2 hour appt "C1D2 etoposide" Day 3: - 503 schedule for 2 hour appt "C1D3 etoposide" Thanks! * Telephone Encounter - Wendy Garza RN - 07/18/2023 8:00 AM EDT Referral entered. Yulia: is tecentriq available, or does it need to be ordered? Thanks! * Addendum Note - Wendy Garza RN - 07/17/2023 4:05 PM EDTAddended by: WENDY CHÁVEZ on: 07/17/2023 04:05 PM Modules accepted: Orders * Telephone Encounter - Wendy Garza RN - 07/17/2023 3:56 PM EDT Order received for tecentriq, carboplatin, etoposide. [place] plan adjusted and routed for signature. Waiting for auth. Consent signed 07/17/23. Hep B labs 05/10/23. Patient is coming for nurse education visit 07/20/23. documented in this encounter Plan of Treatment Upcoming Encounters Date Type Specialty Care Team Description 07/20/2023 Nurse Only Hematology Oncology [place], Nurse Hem Onc [facility] [address] [facility] [place] [address] 07/26/2023 Office Visit Palliative Medicine Lilibeth Chavze MD [address] [place], [place] [address] [address] Scheduled Orders Name Type Priority Associated Diagnoses Orde r Schedule CBC WITH WBC DIFFERENTIAL Lab STAT Primary cancer of left upper lobe of lung (HCC) Every 3 Weeks for 15 Occurrences starting 07/17/2023 until 07/17/2024 COMPREHENSIVE METABOLIC PANEL Lab STAT Primary cancer of left upper lobe of lung (HCC) Every 3 Weeks for 15 Occurrences starting 07/17/2023 until 07/17/2024 TSH WITH FREE T4 IF INDICATED Lab STAT Primary cancer of left upper lobe of lung (HCC) Encounter for long-term (current) use of medications Every 3 Weeks for 15 Occurrences starting 07/17/2023 until 07/17/2024 Health Maintenance Due Date Last Done Comments [...] lobe of lung (HCC)- Primary Encounter for long-term (current) use of medications Encounter for long-term (current) use of other medications documented in this encounter Advance Directives Documents on File Type Date Recorded Patient Morgue Technician Expl anation Advance Directives and Living Will 06/24/2022 ADVANCE DIRECTIVE / LIVING WILL Power of Case Therapist 06/24/2022 POWER OF A TTORNEY Latest Code Status on File Code Status Date Activated Date Inactivated Comments No Code 03/20/2023 1:42 AM 03/21/2023 5:59 PM This order reflects the patients wishes and were consensually agreed upon. Question Answer Comments Discussion of Advance Directives occurred with: Patient Care Teams Cork Wirer Relationship Specialty Start Date End Date Antonio Loza MD [address] [place] [address] PCP - General Family Medicine 07/13/23 documented as of this encounter
--- OUTSIDE RECORDS SUMMARY | 2023-09-26 17:41 | External Medical Summary | Summary of Care ---
Author Name Unknown Organization [facility] Address [address] [place] [address] Phone [phone] Care Team Providers Care Rubber Vulcanizing Machine Operator Name Role Phone Antonio Loza MD Primary Care Provider [phone] Encounter Details Date Type Department Care Team Description 07/17/2023 Orders Only Hematology/Oncology Sanj[facility] Cabrera [place] [address] [facility] [place] [address] Hesham Bray MD [address] [place] [address] Allergies No known active allergiesdocumented as of [...] [facility] DETECT Study: Project # [id number], Mental Health Technician: Khadar Dodd, PhD. SUMMARY: Goal: Establish [...] contact study staff at ; after hours Mental Health Technician via the [facility] skein mercerizing machine operator . Please contact study team before resolving/deleting from patients problem list. Study phone number: [phone]. Diagnosis changed due to Research Module. Go to Snapshot for study details. Encounter for examination fo r normal comparison and control in clinical research program 11/21/2017 06/30/2022 Overview: DO NOT DELETE - [facility] Study: Project # [id number], Mental Health Technician: Mykel Gill, MS, MPH. SUMMARY: Goal: [...] contact study staff at ; after hours Mental Health Technician via the [facility] skein mercerizing machine operator . - Please contact study team before resolving/deleting from patients problem list. Study phone number: [phone]. Diagnosis changed due to Research Module. Go [...] Encounters Date Type Specialty Care Team Description 07/19/2023 Pharmacy Pharmacy [facility] Hem/Onc [address] [place] [address] Primary cancer of left upper lobe of lung (HCC)* 07/20/2023 Nurse Only Hematology Oncology [place] Nurse Hem Onc [place] [address] [place] [address] 07/26/2023 Office Visit Palliative Medicine Vithalani, Lilibeth Rich, MD [address] [place] [address] Health Maintenance Due Date [...] Documents on File Type Date Recorded Patient Song Lyricist Expl anation Advance Directives and Living Will 06/24/2022 ADVANCE DIRECTIVE / LIVING WILL Power of Special Tester 06/24/2022 POWER OF A TTORNEY Latest Code Status on File Code Status Date Activated Date Inactivated Comments No Code 03/20/2023 1:42 AM 03/21/2023 5:59 PM This order reflects the patients wishes and were consensually agreed upon. Question Answer Comments Discussion of Advance Directives occurred with: Patient Care Teams Rubber Vulcanizing Machine Operator Relationship Specialty Start Date End Date Antonio Loza MD [address] [place] [address] PCP - General Family Medicine 07/13/23 documented as of this encounter
--- OUTSIDE RECORDS SUMMARY | 2023-09-26 17:41 | External Medical Summary | Summary of Care ---
Author Name Unknown Organization [facility] Address [address] [place] [address] Phone [phone] Care Team Providers Care Title Clerk Automobile Name Role Phone Antonio Loza MD Primary Care Provider [phone] Reason for Visit * Reason Onset Date Comments Precert Future 07/17/2023 Tecentriq, carbo , etoposide Encounter Details Date Type Department Care Team Description 07/17/2023 Telephone Hematology/Oncology Treatment, [place] [address] [place] [phone] Hesham Bray MD [address] [place] [address] Precert Future (Tecentriq, carbo, etoposide) Allergies No known active allergiesdocumented as of this encounter (statuses as of 07/20/2023) Medications Medication Sig Dispensed Refills Start Date [...] as of this encounter (statuses as of 07/20/2023) Active Problems Problem Noted Date Primary cancer [...] as of this encounter (statuses as of 07/20/2023) Resolved Problems Problem Noted Date Resolved Date Encounter for examination fo r normal comparison and control in clinical research program 11/21/2017 06/01/2020 Overview: DO NOT DELETE [facility] DETECT Study: Project # [id number], Graffiti Cleaner: Khadar Dodd, PhD. SUMMARY: Goal: Establish [...] contact study staff at ; after hours Graffiti Cleaner via the [facility] apple peeler operator . Please contact study team before resolving/deleting from patients problem list. Study phone number: [phone]. Diagnosis changed due to Research Module. Go to Snapshot for study details. Encounter for examination fo r normal comparison and control in clinical research program 11/21/2017 06/30/2022 Overview: DO NOT DELETE - [facility] Study: Project # [id number], Graffiti Cleaner: Mykel Gill, MS, MPH. SUMMARY: Goal: [...] contact study staff at ; after hours Graffiti Cleaner via the [facility] apple peeler operator . - Please contact study team before resolving/deleting from patients problem list. Study phone number: [phone]. Diagnosis changed due to Research Module. Go to [employer] for study details. documented as of this encounter (statuses as of 07/20/2023) Immunizations Name Administration Dates Next Due Covid-19 [...] Telephone Encounter - Wendy Garza RN - 07/20/2023 11:50 AM EDT Patient is scheduled to start 07/24/23. * Telephone Encounter - Wendy Garza RN [...] - 07/17/2023 4:05 PM EDTAddended by: WENDY HCÁVEZ on: 07/17/2023 04:05 PM Modules accepted: Orders * Telephone Encounter - Wendy Garza RN - 07/17/2023 3:56 PM EDT Order received for tecentriq, carboplatin, etoposide. [place] plan adjusted and routed for signature. Waiting for auth. Consent signed 07/17/23. Hep B labs 05/10/23. Patient is coming for nurse education visit 07/20/23. documented in this encounter Plan of Treatment Upcoming Encounters Date Type Specialty Care Team Description 07/24/2023 Laboratory Laboratory [place], Lab Scenery [address] [place], [place] [address] 07/24/2023 Hem/Onc Treatment Hematology Oncology [place], Chair 11 Hem Onc [place] [address] [place] [address] 07/25/2023 Hem/Onc Treatment Hematology Oncology [place], Chair 9 Hem Onc [place] [address] [place] [address] 07/26/2023 Office Visit Palliative Medicine Lilibeth Chavez MD [address] [place] [address] 07/26/2023 Hem/Onc Treatment Hematology Oncology [place], Chair 10 Hem Onc [address] [place] [address] Scheduled Orders Name Type Priority Associated Diagnoses [...] Documents on File Type Date Recorded Patient Social Media Senior Associate Expl anation Advance Directives and Living Will 06/24/2022 ADVANCE DIRECTIVE / LIVING WILL Power of Professional Fee Coder 06/24/2022 POWER OF A TTORNEY Latest Code Status on File Code Status Date Activated Date Inactivated Comments No Code 03/20/2023 1:42 AM 03/21/2023 5:59 PM This order reflects the patients wishes and were consensually agreed upon. Question Answer Comments Discussion of Advance Directives occurred with: Patient Care Teams Title Clerk Automobile Relationship Specialty Start Date End Date Antonio Loza MD [address] [place] [address] PCP - General Family Medicine 07/13/23 documented as of this encounter
--- OUTSIDE RECORDS SUMMARY | 2023-09-26 17:41 | External Medical Summary ---
Author Name Unknown Address Unknown Organization K01:[facility] [place] [address] [place] [address] [address] Laboratory Report Ordering Provider Test Date Status NESS PADILLA 07/24/2023 10:35:26 Final Observation Date Value Abnormality Reference (Units ) Status TSH 07/24/2023 10:35:26 1.20 0.27-4.20 (uIU/mL) Final Performing Location [facility] [place] [address] [place] [address]
--- OUTSIDE RECORDS SUMMARY | 2023-09-26 17:41 | External Medical Summary | Summary of Care ---
Author Name Unknown Organization [facility] Address [address] [place] [address] Phone [phone] Care Team Providers Care Sample Maker Name Role Phone Antonio Loza MD Primary Care Provider [phone] [phone] Encounter Details Date Type Department Care Team Description 07/20/2023 Nurse Only Hematology/Oncology [facility] [address] [facility] [place] [address] [place], Nurse Hem Onc [facility] [address] [place] [address] Allergies No known active allergiesdocumented as of [...] [facility] [place] DETECT Study: Project # [id number], Telephone Lineman: Khadar Dodd, PhD. SUMMARY: Goal: Establish test [...] contact study staff at ; after hours Telephone Lineman via the [facility] industrial locomotive operator . Please contact study team before resolving/deleting from patients problem list. Study phone number: [phone]. Diagnosis changed due to Research Module. Go to Snapshot for study details. Encounter for examination fo r normal comparison and control in clinical research program 11/21/2017 06/30/2022 Overview: DO NOT DELETE - [facility] Study: Project # [id number], Telephone Lineman: Mykel Gill, MS, MPH. SUMMARY: Goal: Establish [...] contact study staff at ; after hours Telephone Lineman via the [facility] hospital industrial locomotive operator . - Please contact study team before resolving/deleting from patients problem list. Study phone number: [phone]. Diagnosis changed due to Research Module. Go [...] as of this encounter Nursing Notes * Shavon Garza RN - 07/20/2023 11:38 AM EDT Patient given prescription for wig. documented in this encounter Plan of Treatment Upcoming Encounters Date Type Specialty Care Team Description 07/24/2023 Laboratory Laboratory [place], Lab Scenery [address] [place] [address] 07/24/2023 Hem/Onc Treatment Hematology Oncology [place], Chair 11 Hem Onc Scenery [address] [place] [address] 07/25/2023 Hem/Onc Treatment Hematology Oncology [place], Chair 9 Hem Onc Scenery [address] [place], [place] [address] 07/26/2023 Office Visit Palliative Medicine Lilibeth Chavez MD [address] [place], [place] [address] [address] 07/26/2023 Hem/Onc Treatment Hematology Oncology [place], Chair 10 Hem Onc Scenery [address] [place] [address] Health Maintenance Due Date Last Done Comments [...] left upper lobe of lung (HCC)- Primary Drug-related hair loss Other alopecia documented in this encounter Advance Directives Documents on File Type Date Recorded Patient Compensation And Benefits Advisor Expl anation Advance Directives and Living Will 06/24/2022 ADVANCE DIRECTIVE / LIVING WILL Power of Engineering Mathematician 06/24/2022 POWER OF A TTORNEY Latest Code Status on File Code Status Date Activated Date Inactivated Comments No Code 03/20/2023 1:42 AM 03/21/2023 5:59 PM This order reflects the patients wishes and were consensually agreed upon. Question Answer Comments Discussion of Advance Directives occurred with: Patient Care Teams Sample Maker Relationship Specialty Start Date End Date Antonio Loza MD [address] [place] [address] PCP - General Family Medicine 07/13/23 documented as of this encounter
--- OUTSIDE RECORDS SUMMARY | 2023-09-26 17:41 | External Medical Summary | Summary of Care ---
Author Name Unknown Organization [facility] Address [address] [place] [address] Phone [phone] Care Team Providers Care Refrigerating Engineer Name Role Phone Antonio Loza MD Primary Care Provider [phone] Reason for Visit * Reason Onset Date Comments Precert Future 07/17/2023 Tecentriq, carbo , etoposide Encounter Details Date Type Department Care Team Description 07/17/2023 Telephone Hematology/Oncology Treatment, [place] [address] [place] [phone] Hesham Bray MD [address] [place] [address] Precert Future (Tecentriq, carbo, etoposide) Allergies No [...] [facility] DET[facility] Study: Project # [id number], Medical Staff Manager: Khadar Dodd, PhD. SUMMARY: Goal: Establish [...] staff at ; after hours Medical Staff Manager via the [facility] ross lift operator . Please contact study team before resolving/deleting from patients problem list. Study phone number: [phone]. Diagnosis changed due to Research Module. Go to Snapshot for study details. Encounter for examination fo r normal comparison and control in clinical research program 11/21/2017 06/30/2022 Overview: DO NOT DELETE - [facility] [place] Study: Project # [id number], Medical Staff Manager: Mykel Gill, MS, MPH. SUMMARY: Goal: [...] staff at ; after hours Medical Staff Manager via the [facility] ross lift operator . - Please contact study team before resolving/deleting from patients problem list. Study phone number: [phone]. Diagnosis changed due to Research Module. Go to [employer] for study details. documented as of this [...] encounter Miscellaneous Notes * Addendum Note - Wendy Garza RN - 07/17/2023 4:05 PM EDTAddended by: WENDY CHÁVEZ on: 07/17/2023 04:05 PM Modules accepted: Orders * Telephone Encounter - Wendy Garza RN - 07/17/2023 3:56 PM EDT Order received for tecentriq, carboplatin, etoposide. [place] plan adjusted and routed for signature. Waiting for auth. Consent signed 07/17/23. Hep B labs 05/10/23. Patient is coming for nurse education visit 07/20/23. documented in this encounter Plan of Treatment Upcoming Encounters Date Type Specialty Care Team Description 07/19/2023 Pharmacy Pharmacy [facility] Hem[facility]Onc [address] [place], [place] [id number] 07/20/2023 Nurse Only Hematology Oncology [place], Nurse Hem Onc [place] [address] [place] [address] 07/26/2023 Office Visit Palliative Medicine Lilibeth Chavez MD [address] [place] [address] Scheduled Orders Name Type Priority Associated [...] Documents on File Type Date Recorded Patient Shearing Shed Hand Expl anation Advance Directives and Living Will 06/24/2022 ADVANCE DIRECTIVE / LIVING WILL Power of Business Analytics Specialist 06/24/2022 POWER OF A TTORNEY Latest Code Status on File Code Status Date Activated Date Inactivated Comments No Code 03/20/2023 1:42 AM 03/21/2023 5:59 PM This order reflects the patients wishes and were consensually agreed upon. Question Answer Comments Discussion of Advance Directives occurred with: Patient Care Teams Refrigerating Engineer Relationship Specialty Start Date End Date Antonio Loza MD [address] [place] [address] PCP - General Family Medicine 07/13/23 documented as of this encounter
--- OUTSIDE RECORDS SUMMARY | 2023-09-26 17:41 | External Medical Summary | Summary of Care ---
Author Name Unknown Organization [facility] Address [address] [place] [address] Phone [phone] Care Team Providers Care Excellence Coach Name Role Phone Antonio Loza MD Primary Care Provider [phone] Reason for Visit * Reason Comments NEW PATIENT Encounter Details Date Type Department Care Team Description 07/26/2023 Office Visit Palliative Medicine [facility] [address] [place] [address] Lilibeth Chavez MD [address] [place] [address] Cancer related pain*; Palliative care encounter; Primary cancer of left upper lobe of lung (HCC); Lung mass; Severe protein-energy malnutrition (HCC) Allergies No known active allergiesdocumented as [...] before bedtime. 30 Tablet 0 07/26/2023 Active fentaNYL 12 MCG/HR Transdermal Patch 72 Hour (Duragesic)Indica tions:Chemotherap y induced nausea and vomiting,Bilatera l pulmonary embolism (HCC),Primary cancer of left upper lobe of lung (HCC) Place 1 Patch over 72 hours topically on the skin every 3 days. 4 Patch 0 07/17/2023 3 Discontinued documented as of this encounter [...] [facility] DETECT Study: Project # [id number], Continuity Person: Khadar Dodd, PhD. SUMMARY: Goal: Establish test [...] contact study staff at ; after hours Continuity Person via the [facility] hospital dry end operator . Please contact study team before resolving/deleting from patients problem list. Study phone number: [phone]. Diagnosis changed due to Research Module. Go to Snapshot for study details. Encounter for examination fo r normal comparison and control in clinical research program 11/21/2017 06/30/2022 Overview: DO NOT DELETE - [facility] Study: Project # [id number], Continuity Person: Mykel Gill, MS, MPH. SUMMARY: Goal: Establish [...] contact study staff at ; after hours Continuity Person via the [facility] hospital dry end operator . - Please contact study team before resolving/deleting from patients problem list. Study phone number: [phone]. Diagnosis changed due to Research Module. Go to [email or web address] for study details. documented as of this [...] Sign Reading Time Taken Comments Blood Pressure 120/59 07/26/2023 11:06 AM EDT Pulse 94 07/26/2023 11:06 AM EDT Temperature 37.1 C (98.7 F) 07/26/2023 11:06 AM E DT Respiratory Rate 16 07/26/2023 11:06 AM EDT Oxygen Saturation 94% 07/26/2023 11:06 AM EDT Inhaled Oxygen Concentration - - Weight 50.4 kg (111 lb 1.6 oz) 07/26/2023 11:06 AM EDT Height - - Body Mass Index 19.68 07/17/2023 2:14 PM EDT documented in this [...] No 03/20/2023 documented as of this encounter Patient Instructions * Patient Instructions* Tana Cai LPN - 07/26/2023 10:58 AM EDT Our Palliative Medicine Clinic is available Monday through Monday during business hours, so we are unavailable on weekends and holidays. Please ensure that you request refills early in the week as itmay take 1-2 days for them to be addressed and filled, for authorizations to be approved, or for the pharmacy to order them if needed. You can contact our office at [phone], which is our clinic in [place], or you can message us on [employer]. If you have an emergency outside of these hours, we recommend calling your primary care clinic, Oncology office, or going to the ER if you have a medical emergency. documented in this encounter Progress Notes * Tana Cai LPN - 07/26/2023 11:03 AM EDT NEW Palliative Visit Pain: 06/08 in chest and back Was prescribed a fentanyl patch, but has not used yet Taking oxycodone 2-3 times a day along with tylenol Admits she is not taking as often as she should Not feeling well today after tx yesterday Other than yesterday, she has been eating and drinking well Sleeping good Last BM: yesterday. Takes Senna as needed Other issues: * Lilibeth Chavez MD - 07/26/2023 11:00 AM EDT Images from the original note were not included. Palliative Medicine Outpatient Consult Note [facility] Palliative Medicine Outreach [address] [place] [address] Name: Reba Delaney Date: 07/26/2023 Referring Provider: Self Reason for Consult: Goals of care; Pain and symptom management Patient accompanied by daughter Erin, history obtained from Erin, daughter HPI: Reba Delaney is a 78 year old female with a primary diagnosis of lung cancer, with mets tolymph nodes and L adrenal mets, previously on Sotorasib treatment, now on IV chemo (M/T/W then repeat 3 weeks later). Referred for cancer related pain, currently on Oxy IR 5mg with Fentanyl patch 12.5mcg/hr (though has not started that). Reports her biggest issue is pain at the site of the tumor. She takes Oxycodone about 4-5 times/daybut then has also been sleeping quite a bit so missing it at times. Tolerated her first two days of treatment initially but today feels more rough. Did have a temp of 99.8 yesterday. Palliative symptoms: Pain: as above Nausea/Vomiting: yes Constipation: yes - takes 1 Senna Confusion: no Somnolence: yes Dyspnea: no Mood: no Other: None ROS: See HPI. All other systems negative. 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 SOMAT DYSFUNC THORAC REG M99.9 Nonallopathic lesion of cervical region M99.9 LOC PRIM OSTEOART-PELVIS M16.10 Cataract H26.9 Family hx-breast malignancy Z80.3 Family history of cardiovascular disease Z82.49 Hip joint replacement status Z96.649 Trigger finger of right thumb M65.311 Lung mass R91.8 Generalized weakness R53.1 Bilateral pulmonary embolism (HCC) I26.99 Hyponatremia E87.1 New onset atrial fibrillation (HCC) I48.91 Severe protein-energy malnutrition (HCC) E43 Primary cancer of left upper lobe of lung (HCC) C34.12 Encounter for antineoplastic chemotherapy Z51.11 Chemotherapy induced nausea and vomiting R11.2, T45.1X5A Past Surgical History: Procedure Laterality Date BIOPSY OF BREAST, OPEN fibrocystic breast dz right ? BREAST LESION,OTHER,EXCISION Breast Excision, benign tumor/cyst fibrocystic breast dz. BRONCHOSCOPY, DIAGNOSTIC N/A 03/20/2023 BRONCHOSCOPY DIAGNOSTIC WITH OR WITHOUT WASHING performed by Dhruv Graham MD at ENDOSCOPY [facility] BX LYMPH NODE-SUPERFIC 10/2009 lymph node removal L neck PATH; BENIGN Otolaryngology [facility] Dr Rajput DENTAL SURGERY PROCEDURE NEC 2007 all teeth extracted REMOVAL OF PAROTID GLAND/TUMOR Left 11/17/2022 EXCISION PAROTID TOTAL WITH DISSECTION FACIAL NERVE performed by Sharon Miller MD at OR [facility] TOTAL HIP REPLACEMENT & PROSTHESIS 2005 Dr Eller Family History Problem Relation Age of Onset Cancer Grandmother (Paternal) breast ca. 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 [employer] Employer: [employer] Tobacco Use Smoking status: Former Packs/day: 0.75 Years: 52.00 Pack years: 39.00 Types: Cigarettes Start date: 1970 Smokeless tobacco: Never Vaping Use Vaping Use: Never used Substance and Sexual Activity Alcohol use: Yes Comment: socially mixed drink whiskey club soda, Drug use: Never Sexual activity: Yes Comment: since 1963 Other Topics Concern Service No Hobby Hazards Yes Comment: Sewing, crafts, garden, cards Social Determinants of Health Food Insecurity: No Food Insecurity Worried About Running Out of Food in the Last Year: Never true Ran Out of Food in the Last Year: Never true Moved in with daughter Erin Has a son as well Relevant Medications: Current Outpatient Medications Medication Sig Dispense Refill [...] 1 Tablet by mouth in the morning. predniSONE 10 MG Oral Tablet (Deltasone) Take 1 Tablet by mouth in the morning. Turmeric 500 MG Oral Capsule Take 1 Capsule by mouth in the morning. Ondansetron HCl 8 MG Oral Tablet Take 1 Tablet by mouth every 8 hours as needed for Nausea. 30 Tablet 0 Prochlorperazine Maleate 10 MG Oral Tablet (Compazine) Take 1 Tablet by mouth every 6 hours as needed for Nausea. 30 Tablet 0 oxyCODONE HCl 5 MG Oral Tablet (Oxy IR) Take 1 Tablet by mouth every 4 hours as needed for Pain, Moderate. 60 Tablet 0 fentaNYL 12 MCG/HR Transdermal Patch 72 Hour (Duragesic) Place 1 Patch over 72 hours topically on the skin every 3 days. 4 Patch 0 Apixaban 5 MG Oral Tablet (Eliquis) Take 1 Tablet by mouth in the morning and 1 Tablet before bedtime. 60 Tablet 5 No current facility-administered medications for this visit. Allergies: Patient has no known allergies. PHYSICAL EXAMINATION: Constitutional: BP 120/59 | Pulse 94 | Temp 37.1 C (98.7 F) | Resp 16 | Wt 50.4 kg (111 lb 1.6 oz) | SpO2 94% | BMI 19.68 kg/m | BSA 1.5 m , no acute distress, chronically ill, pleasant and cooperative, breathing ambient air comfortably HENT: normocephalic, atraumatic. Eyes: anicteric, sclera and conjunctiva normal. Neck: no stridor Chest: normal respiratory effort Abdominal: nondistended Extremities: no edema, no clubbing, no cyanosis Neuro: alert, oriented to person, place, and time Psych: normal mood and affect Data Review: External notes reviewed: Hem onc and PCP notes reveiwed Lab / Imaging Results: Cr 0.9, normal, Albumin 3.6, borderline low History obtained from: pt and daughter Discussion with other team members: y Decision-making Capacity: Does Patient have Decisional Capacity? y Does Patient have a Healthcare Agent? Y, daughter Samia Discussion with Patient & Family: Met with patient and daughter Introduced role of Outpatient Palliative Medicine team and reviewed symptoms as above. Reviewed patient's/family's understanding of current medical situation. They are aware her cancer had worsened after being on the chemo pill. To their knowledge the mass in her chest cannot be radiated. Advanced Care Planning: AD: Has a living will in EMR Asked permission to discuss POLST, she agrees She is clear she is a DNR, very clear she "does not want heroics" Ok with LIMITED tx such as fluids and antibiotics Ok with IV hydration, does not want artificial nutrition OK with abx for comfort POLST completed, original given to patient, copy taken to be put into EMR under ACP docs but also scanned into Chart Review --> Scans ASSESSMENT/PLAN: Reba Delaney is a/an 78 year old female referred for consultation to Palliative Medicine with the primary diagnosis of: Non-small cell lung CA Large left apical lung mass, with multiple lymph nodes mets and L adrenal mets Cancer related pain, severe Moderate protein calorie malnutrition Opioid induced constipation Goals of care - ok w/LIMITED tx, but if declines, DNR/DNI Recommendations: For pain, will add MS Contin for long acting pain relief For breakthrough pain, can still use Oxycodone 5mg q4h PRN pain. She does not need a refill today. If needed, can take 2 pills Controlled substance agreement reviewed and completed, signed by myself and patient. Copy given to patient and kept in office records. For bowels she should take Senna 1-2 tab qHS, can add Miralax in AM if needed Reviewed role of hospice care, she does not need that now, but reviewed what it entails. May need home health in future in interim. Will plan to f/u in 2 weeks by video with ML I have reviewed the patients controlled substance dispensing history in the Prescription Drug Monitoring Program in compliance with the [place] regulations before prescribing a controlled substance. Thank you for this consult. We appreciate the opportunity to take part in the care of your patient. Note routed back to referring provider and PCP. Lilibeth Chavez MD Palliative Medicine Physician [facility] Office: [phone] 07/26/2023 documented in this encounter Plan of Treatment Upcoming Encounters Date Type Specialty Care Team Description 08/08/2023 Telemedicine Palliative Medicine Fatimah Hartman CRNP [address] [place] [address] 08/15/2023 Laboratory Laboratory Deborah, Lab Scenery [address] [place] [address] 08/15/2023 Office Visit Hematology Oncology Hesham Bray MD [address] [place] [address] 08/15/2023 Hem/Onc Treatment Hematology Oncology Deborah, Chair 4 Hem Onc Scenery [address] [place] [address] 08/16/2023 Hem/Onc Treatment Hematology Oncology 08/17/2023 Hem/Onc Treatment Hematology Oncology Deborah, Chair 2 Hem Onc Scenery [address] [place] [address] Health Maintenance Due Date Last Done Comments [...] pain- Primary Neoplasm related pain (acute) (chronic) Palliative care encounter Encounter for palliative care Primary cancer of left upper lobe of lung (HCC) Lung mass Swelling, mass, or lump in chest Severe protein-energy malnutrition (HCC) Other severe protein-calorie malnutrition documented in this encounter Advance Directives Documents on File Type Date Recorded Patient Tomography Technologist Expl anation Advance Directives and Living Will 06/24/2022 ADVANCE DIRECTIVE / LIVING WILL Power of Hospital Internship 06/24/2022 POWER OF A TTORNEY Latest Code Status on File Code Status Date Activated Date Inactivated Comments No Code 03/20/2023 1:42 AM 03/21/2023 5:59 PM This order reflects the patients wishes and were consensually agreed upon. Question Answer Comments Discussion of Advance Directives occurred with: Patient Care Teams Excellence Coach Relationship Specialty Start Date End Date Antonio Loza MD [address] [place] [address] PCP - General Family Medicine 07/13/23 documented as of this encounter
--- OUTSIDE RECORDS SUMMARY | 2023-09-26 17:41 | External Medical Summary | Summary of Care ---
Author Name Unknown Organization [facility] Address [address] [place] [address] Phone [phone] Care Team Providers Care Gm/Svp Global Publisher Business Name Role Phone Antonio Loza MD Primary Care Provider [phone] Reason for Visit * Reason Onset Date Comments Medication Refill 07/17/2023 Encounter Details Date Type Department Care Team Description 07/17/2023 Refill Hematology/Oncology [facility] [address] [facility] [place] [address] Hesham Bray MD [address] [place] [address] Primary cancer of left upper lobe of lung (HCC) Allergies No known active allergiesdocumented as of this encounter (statuses as of 07/18/2023) Medications Medication Sig Dispensed Refills Start Date [...] before bedtime. 60 Tablet 5 07/18/2023 Active Apixaban 5 MG Oral Tablet (Eliquis)Indicati ons: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 60 Tablet 1 07/17/2023 07/17/2023 Discontinue d(Refill) documented as of this encounter (statuses as of 07/18/2023) Active Problems Problem Noted Date Primary cancer [...] as of this encounter (statuses as of 07/18/2023) Resolved Problems Problem Noted Date Resolved Date Encounter for examination fo r normal comparison and control in clinical research program 11/21/2017 06/01/2020 Overview: DO NOT DELETE [facility] DETECT Study: Project # [id number], Instrument And Controls Technician: Khadar Dodd, PhD. SUMMARY: Goal: Establish [...] contact study staff at ; after hours Instrument And Controls Technician via the [facility] hospital mobile health vehicle operator . Please contact study team before resolving/deleting from patients problem list. Study phone number: [phone]. Diagnosis changed due to Research Module. Go to Snapshot for study details. Encounter for examination fo r normal comparison and control in clinical research program 11/21/2017 06/30/2022 Overview: DO NOT DELETE - [facility] Study: Project # [id number], Instrument And Controls Technician: Mykel Gill, MS, MPH. SUMMARY: Goal: [...] contact study staff at ; after hours Instrument And Controls Technician via the [facility] hospital mobile health vehicle operator . - Please contact study team before resolving/deleting from patients problem list. Study phone number: [phone]. Diagnosis changed due to Research Module. Go to [employer] for study details. documented as of this encounter (statuses as of 07/18/2023) Immunizations Name Administration Dates Next Due Covid-19 [...] Telephone Encounter - Shavon Garza RN - 07/18/2023 3:33 PM EDT Pended eliquis. documented in this encounter Plan of Treatment Upcoming Encounters Date Type Specialty Care Team Description 07/19/2023 Pharmacy [facility] Hem[facility]c [address] [place] [address] Primary cancer of left upper lobe of lung (HCC)* 07/20/2023 Nurse Only Hematology Oncology Deborah, Nurse Hem Onc [facility] [address] [place] [address] 07/26/2023 Office Visit Palliative Medicine Lilibeth Chavez MD [address] [place] [address] Health Maintenance Due Date Last [...] of left upper lobe of lung (HCC) Primary cancer of left upper lobe of lung (HCC)- Primary documented in this encounter Advance Directives Documents on File Type Date Recorded Patient Design Engineer Agricultural Equipment Expl anation Advance Directives and Living Will 06/24/2022 ADVANCE DIRECTIVE / LIVING WILL Power of Medical Office Clerk 06/24/2022 POWER OF A TTORNEY Latest Code Status on File Code Status Date Activated Date Inactivated Comments No Code 03/20/2023 1:42 AM 03/21/2023 5:59 PM This order reflects the patients wishes and were consensually agreed upon. Question Answer Comments Discussion of Advance Directives occurred with: Patient Care Teams Gm/Svp Global Publisher Business Relationship Specialty Start Date End Date Antonio Loza MD [address] [place] [address] PCP - General Family Medicine 07/13/23 documented as of this encounter
--- OUTSIDE RECORDS SUMMARY | 2023-09-26 17:41 | External Medical Summary | Summary of Care ---
Author Name Unknown Organization [facility] Address [address] [place] [address] Phone [phone] Care Team Providers Care Warehouse Trainer Name Role Phone Antonio Loza MD Primary Care Provider [phone] Reason for Visit * Reason Onset Date Comments Precert Future 07/17/2023 Tecentriq, carbo , etoposide Encounter Details Date Type Department Care Team Description 07/17/2023 Telephone Hematology/Oncology Treatment, [place] [address] [place] [id number] Hesham Bray MD [address] [place] [address] Precert Future (Tecentriq, carbo, etoposide) Allergies No [...] [facility] DETECT Study: Project # [id number], Senior Software Manager: Khadar Dodd, PhD. SUMMARY: Goal: Establish [...] study staff at ; after hours Senior Software Manager via the [facility] hospital measurement operator . Please contact study team before resolving/deleting from patients problem list. Study phone number: [phone]. Diagnosis changed due to Research Module. Go to Snapshot for study details. Encounter for examination fo r normal comparison and control in clinical research program 11/21/2017 06/30/2022 Overview: DO NOT DELETE - [facility] Study: Project # [id number], Senior Software Manager: Mykel Gill, MS, MPH. SUMMARY: Goal: [...] study staff at ; after hours Senior Software Manager via the [facility] hospital measurement operator . - Please contact study team before resolving/deleting from patients problem list. Study phone number: [phone]. Diagnosis changed due to Research Module. Go to [employer] for study details. documented as of this [...] EDT Order received for tecentriq, carboplatin, etoposide. Pocahontas plan adjusted and routed for signature. Waiting for auth. Consent signed 07/17/23. Hep B labs 05/10/23. Patient is coming for nurse education visit 07/20/23. documented in this encounter Plan of Treatment Upcoming Encounters Date Type Specialty Care Team Description 07/19/2023 Pharmacy Pharmacy [facility] [place] Hem[facility]Onc [address] [place] [address] Primary cancer of left upper lobe of lung (HCC)* 07/20/2023 Nurse Only Hematology Oncology Deborah Nurse Hem Onc [facility] [address] [place] [address] 07/26/2023 Office Visit Palliative Medicine Lilibeth Chavez MD [address] [place] [address] Scheduled Orders Name Type Priority [...] for long-term (current) use of other medications Primary cancer of left upper lobe of lung (HCC)- Primary documented in this encounter Advance Directives Documents on File Type Date Recorded Patient Senior Business Manager Expl anation Advance Directives and Living Will 06/24/2022 ADVANCE DIRECTIVE / LIVING WILL Power of Flooring Helper 06/24/2022 POWER OF A TTORNEY Latest Code Status on File Code Status Date Activated Date Inactivated Comments No Code 03/20/2023 1:42 AM 03/21/2023 5:59 PM This order reflects the patients wishes and were consensually agreed upon. Question Answer Comments Discussion of Advance Directives occurred with: Patient Care Teams Warehouse Trainer Relationship Specialty Start Date End Date Antonio Loza MD [address] [place] [address] PCP - General Family Medicine 07/13/23 documented as of this encounter
--- OUTSIDE RECORDS SUMMARY | 2023-09-26 17:41 | External Medical Summary | Summary of Care ---
Author Name Unknown Organization [facility] Address [address] [place] [address] Phone [phone] Care Team Providers Care Brake Lining Finisher Asbestos Name Role Phone Antonio Loza MD Primary Care Provider [phone] Encounter Details Date Type Department Care Team Description 07/17/2023 Orders Only Hematology/Oncology Sanjiv Cabrera [place] [address] [facility] [place] [address] Hesham Bray MD [address] [place] [address] Allergies No known active allergiesdocumented as of [...] DELETE [facility] DETECT Study: Project # [id number], Liner Roll Changer: Khadar Dodd, PhD. SUMMARY: Goal: Establish test [...] contact study staff at ; after hours Liner Roll Changer via the [facility] marble cutter operator . Please contact study team before resolving/deleting from patients problem list. Study phone number: [phone]. Diagnosis changed due to Research Module. Go to Snapshot for study details. Encounter for examination fo r normal comparison and control in clinical research program 11/21/2017 06/30/2022 Overview: DO NOT DELETE - [facility] Study: Project # [id number], Liner Roll Changer: Mykel Gill, MS, MPH. SUMMARY: Goal: Establish [...] contact study staff at ; after hours Liner Roll Changer via the [facility] hospital marble cutter operator . - Please contact study team before resolving/deleting from patients problem list. Study phone number: [phone]. Diagnosis changed due to Research Module. Go [...] Specialty Care Team Description 07/19/2023 Pharmacy Pharmacy [facility] [place] Hem/Onc [address] [place] [address] Primary cancer of left upper lobe of lung (HCC)* 07/20/2023 Nurse Only Hematology Oncology Deborah Nurse Hem Onc Scenery [address] [place] [address] 07/26/2023 Office Visit Palliative Medicine Vithalani, Lilibeth Rich, MD [address] [place] [address] Health Maintenance Due Date [...] Documents on File Type Date Recorded Patient Glue Mounter Operator Expl anation Advance Directives and Living Will 06/24/2022 ADVANCE DIRECTIVE / LIVING WILL Power of Line Maintainer 06/24/2022 POWER OF A TTORNEY Latest Code Status on File Code Status Date Activated Date Inactivated Comments No Code 03/20/2023 1:42 AM 03/21/2023 5:59 PM This order reflects the patients wishes and were consensually agreed upon. Question Answer Comments Discussion of Advance Directives occurred with: Patient Care Teams Brake Lining Finisher Asbestos Relationship Specialty Start Date End Date Antonio Loza MD [address] [place] [address] PCP - General Family Medicine 07/13/23 documented as of this encounter
--- OUTSIDE RECORDS SUMMARY | 2023-09-26 17:41 | External Medical Summary | Summary of Care ---
Author Name Unknown Organization [facility] Address [address] [place] [address] Phone [phone] Care Team Providers Care Calculation Clerk Name Role Phone Antonio Loza MD Primary Care Provider [phone] Reason for Visit * Reason Comments Chemotherapy C1D2 Etoposide * Episode Based Medications (Routine) - Authorized Specialty Diagnoses / Procedures Referred By Contalyson t Referred To Contact Diagnoses Primary cancer of left upper lobe of lung (HCC) Encounter for antineoplastic chemotherapy Chemotherapy induced nausea and vomiting Procedures MA CARBOPLATIN INJECTION MA FOSAPREPITANT INJECTION MA ETOPOSIDE 10 MG INJ MA INJ, ATEZOLIZUMAB,10 MG Hesham Bray MD [address] [place] [address] Anc Hem/Onc Scene Deborah 200 [facility] [place] [address] Referral ID Status Reason Start Date Expiration Date V isits Requested Visits Authorized [id number] Authorized 07/18/2023 10/29/2099 999 999 Encounter Details Date Type Department Care Team Description 07/25/2023 Hem/Onc Treatment Hematology/Oncology Treatment, [place] [address] [place] [address] Deborah Chair 9 Hem Onc Scenery [address] COUNTS INCLUDE 234 BEDS AT [facility] [place] [address] Primary cancer of left upper lobe of lung (HCC)*; Encounter for antineoplastic chemotherapy; Chemotherapy induced nausea and vomiting Allergies No known active allergiesdocumented as of this encounter (statuses as of 07/25/2023) Medications Medication Sig Dispensed Refills Start Date [...] as of this encounter (statuses as of 07/25/2023) Active Problems Problem Noted Date Primary cancer [...] as of this encounter (statuses as of 07/25/2023) Resolved Problems Problem Noted Date Resolved Date Encounter for examination fo r normal comparison and control in clinical research program 11/21/2017 06/01/2020 Overview: DO NOT DELETE [facility] DETECT Study: Project # [id number], Hazmat Cdl A Driver: Khadar Dodd, PhD. SUMMARY: Goal: Establish [...] contact study staff at ; after hours Hazmat Cdl A Driver via the [facility] wastewater treatment operator . Please contact study team before resolving/deleting from patients problem list. Study phone number: [phone]. Diagnosis changed due to Research Module. Go to Snapshot for study details. Encounter for examination fo r normal comparison and control in clinical research program 11/21/2017 06/30/2022 Overview: DO NOT DELETE - [facility] [employer] DETECT Study: Project # [id number], Hazmat Cdl A Driver: Mykel Gill, MS, MPH. SUMMARY: Goal: [...] contact study staff at ; after hours Hazmat Cdl A Driver via the [facility] wastewater treatment operator . - Please contact study team before resolving/deleting from patients problem list. Study phone number: [phone]. Diagnosis changed due to Research Module. Go to Snapshot for study details. documented as of this encounter (statuses as of 07/25/2023) Immunizations Name Administration Dates Next Due Covid-19 [...] Sign Reading Time Taken Comments Blood Pressure 129/54 07/25/2023 11:28 AM EDT Pulse 84 07/25/2023 11:28 AM EDT Temperature 35.8 C (96.5 F) 07/25/2023 11:28 AM E DT Respiratory Rate 21 07/25/2023 11:28 AM EDT Oxygen Saturation - - Inhaled [...] Nursing Notes * Lisa Platt RN - 07/25/2023 1:11 PM EDT Goals: Patient will remain free from injury. Possible barriers to meeting goals: ambulating with IV pole Stability of the patient: Moderately stable - low risk of patient condition declining or worsening Summary regarding today's goals: Met: pt remained free of harm today Functional status at today's visit: Restricted in [...] well without any acute issues or problems. IV left in place for tx tomorrow. Patient left facility in stable condition and denied any further needs. * Araseli Sinha RN - 07/25/2023 11:28 AM EDT Chair 2 Chemo agents C1D2 Etoposide Patient had no issues overnight. She is doing well. She woke at 5 pm and was having some pain, she took an oxycodone and had relief. PIV left in place, flushes easily, positive blood return noted. NSinfusion started. ABN Labs labs yesterday WNL for treatment today Alt in Tx: none Return in 1 day Safety and Risk for Injury Patient will remain free from injury. Ensure appropriate safety devices are available. Provide and maintain safe environment. documented in this encounter Plan of Treatment Upcoming Encounters Date Type Specialty Care Team Description 07/26/2023 Office Visit Palliative Medicine Lilibeth Chavez MD [address] [place] [address] [place], [place] [id number] 07/26/2023 Hem/Onc Treatment Hematology Oncology [place], Chair 10 Hem Onc Scenery [address] [place] [address] 08/15/2023 Laboratory Laboratory Deborah Lab Scenery [address] [place] [address] 08/15/2023 Office Visit Hematology Oncology Hesham Bray MD [address] [place] [address] 08/15/2023 Hem/Onc Treatment [facility]ology [facility] [place], Chair 4 Hem Onc Scenery [address] [place] [address] 08/16/2023 Hem/Onc Treatment Hematology Oncology 08/17/2023 Hem/Onc Treatment [facility]ology [facility] [place], Chair 2 Hem Onc Scenery [address] [place] [address] Health Maintenance Due Date Last Done Comments [...] ONCE PRN Other, Hypersensitivity Reaction, Starting on Mon07/25/23 at 1126, Until Mon07/26/23 at 1125, For 24 hours EPINEPHrine 1 MG/ML inj 0.3 mg 0.3 mg, Intramuscular, ONCE PRN Other, Hypersensitivity Reaction or Anaphylaxis, Starting on Mon07/25/23 at 1126, Until Mon07/26/23 at 1125, For 24 hours hEParin 100 UNIT/ML Lock Flush inj 500 Units 500 Units (5 mL), IV Lock, PRN Other, IV Flush, Starting on Mon07/25/23 at 1126, Until Mon07/26/23 at 1125, For 24 hours, Do not flush if lock, PICC, or central line not in place; IV infusing or unable to flush. Given 07/25/2023 12:56 PM EDT 500 Units Hydrocortisone Sod Suc (PF) (Solu-Cortef) inj 100 mg 100 mg, IV Push, ONCE PRN Other, Hypersensitivity Reaction, Starting on Mon07/25/23 at 1126, Until Mon07/26/23 at 1125, For 24 hours NSS infusion Intravenous, at 50 mL/hr, PRN, Starting on Mon07/25/23 at 1230, Until Discontinued, KVO Start Infusion 07/25/2023 11:31 AM EDT 50 mL/hr oxygen GAS Inhalation, OXYGEN, First dose on Mon07/25/23 at 1600, Until Discontinued, Device/Managed by: Low [...] Push, PRN Other, IV Flush, Starting on Mon07/25/23 at 1126, Until Mon07/26/23 at 1125, For 24 hours, Do not flush if lock, PICC, or central line not in place; IV infusing or unable to flush. Given 07/25/2023 12:56 PM EDT 10 mL Inactive Administered Medications - up to 3 most recent administrations Medication Order MAR Action Action Date Dose Rate Site etoposide (VEPESID) 150 mg in NSS 500 mL infusion 150 mg (rounded from 149 mg = 100 mg/m2 1.49 m2 Treatment Plan BSA from Recorded weight), IV Piggyback, ONCE, 1 dose, On Mon07/25/23 at 1300, Administer over 60 Minutes, Recommended concentration is less than or equal to 0.4 mg/mL. If concentration is greater than 0.4 mg/mL recommend to administer through 0.22 micron low protein binding filter. Start Infusion 07/25/2023 11:56 AM EDT 150 mg 500 mL/hr ondansetron (Zofran) tab 8 mg 8 mg, Oral, ONCE, On Mon07/25/23 at 1230, For 1 dose, Give 30 minutes prior to chemotherapy. 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 Question Answer Comments Discussion of Advance Directives occurred with: Patient Care Teams Calculation Clerk Relationship Specialty Start Date End Date Antonio Loza MD [address] [place] [address] PCP - General Family Medicine 07/13/23 documented as of this encounter
--- OUTSIDE RECORDS SUMMARY | 2023-09-26 17:41 | External Medical Summary | Summary of Care ---
Author Name Unknown Organization [facility] Address [address] [place] [address] Phone [phone] Care Team Providers Care Bait Packer Name Role Phone Antonio Loza MD Primary Care Provider [phone] Reason for Visit * Reason Comments Outpatient Testing Encounter Details Date Type Department Care Team Description 07/24/2023 Laboratory Laboratory [facility] [address] [place] [address] [facility] 200 [facility] [place] [address] Primary cancer of left upper lobe of [...] DELETE [facility] DETECT Study: Project # [id number], Manager Program Management: Khadar Dodd, PhD. SUMMARY: Goal: Establish test [...] study staff at ; after hours Manager Program Management via the [facility] hospital hot header operator . Please contact study team before resolving/deleting from patients problem list. Study phone number: [phone]. Diagnosis changed due to Research Module. Go to Snapshot for study details. Encounter for examination fo r normal comparison and control in clinical research program 11/21/2017 06/30/2022 Overview: DO NOT DELETE - [facility] Study: Project # [id number], Manager Program Management: Mykel Gill, MS, MPH. SUMMARY: Goal: Establish [...] study staff at ; after hours Manager Program Management via the [facility] hospital hot header operator . - Please contact study team before resolving/deleting from patients problem list. Study phone number: [phone]. Diagnosis changed due to Research Module. Go [...] Date Type Specialty Care Team Description 07/24/2023 Hem/Onc Treatment Hematology [facility] [place], Chair 11 Hem Onc Scenery 200 [facility] [place] [address] Arrived 07/25/2023 Hem/Onc Treatment Hematology Oncology [place], Chair 9 Hem Onc Scenery 200 [facility] [place] [address] 07/26/2023 Office Visit Palliative Medicine Lilibeth Chavez MD [address] [place] [address] [place] [address] 07/26/2023 Hem/Onc Treatment H[facility]ology [facility] [place], Chair 10 Hem Onc Scenery [address] [place] [id number] Pending Results Name Type Priority Associated Diagnoses Date /Time COMPREHENSIVE METABOLIC PANEL Lab STAT Primary cancer of left upper lobe of lung (HCC) 07/24/2023 10:35 AM EDT TSH WITH FREE T4 IF INDICATED Lab STAT Primary cancer of left upper lobe of lung (HCC) Encounter for long-term (current) use of medications 07/24/2023 10:35 AM EDT Health Maintenance Due Date Last [...] Date/Time Associated Diagnosis Comments DIFFERENTIAL, AUTOMATED STAT 07/24/2023 10:35 AM EDT Primary cancer of left upper lobe of lung (HCC) CBC STAT 07/24/2023 10:35 AM EDT Primary cancer of left upper lobe of lung (HCC) CBC STAT 07/24/2023 10:35 AM EDT Primary cancer of left upper lobe of lung (HCC) documented in this encounter Results * (ABNORMAL) DIFFERENTIAL, AUTOMATED (07/24/2023 10:35 AM EDT) WBC 11.60(H) 4.00 - 10.80 K/uL 07/24/2023 10:45 AM EDT [facility] 56-02 Neutrophils % 72.0 40.0 - 75.0 % 07/24/2023 10:45 AM EDT [facility] 56-02 Lymphocytes % 14.0(L) 18.0 - 42.0 % 07/24/2023 10:45 AM EDT [facility] 56-02 Monocytes % 13.1(H) 1.0 - 11.0 % 07/24/2023 10:45 AM EDT [facility] 56-02 Eosinophils % 0.7 0.0 - 6.0 % 07/24/2023 10:45 AM EDT [facility] 56-02 Basophils % 0.2 0.0 - 2.0 % 07/24/2023 10:45 AM EDT [facility] 56-02 Absolute Neutrophils 8.36(H) 1.80 - 7.70 K/uL 07/24/2023 10:45 AM EDT [facility] 56-02 Absolute Lymphocytes 1.62 1.00 - 4.80 K/ul 07/24/2023 10:45 AM EDT [facility] 56-02 Absolute Monocytes 1.52(H) 0.00 - 1.10 K/uL 07/24/2023 10:45 AM EDT [facility] 56-02 Absolute Eosinophils 0.08 0.00 - 0.70 K/uL 07/24/2023 10:45 AM EDT [facility] 56-02 Absolute Basophils 0.02 0.00 - 0.20 K/uL 07/24/2023 10:45 AM EDT [facility] 56-02 Blood Venous blood specimen / Unknown Venipuncture / Unknown 07/24/2023 10:35 AM EDT 07/24/2023 10:35 AM EDT Hesham Bray MD LAB BLOOD ORDERA BLES [facility] 56 [address] [place] [address] * (ABNORMAL) CBC (07/24/2023 10:35 AM EDT) WBC 11.60(H) 4.00 - 10.80 K/uL 07/24/2023 10:45 AM EDT [facility] 56 RBC 3.76 3.85 - 5.15 M/uL 07/24/2023 10:45 AM EDT [facility] 56 HGB 9.9(L) 12.0 - 15.3 g/dL 07/24/2023 10:45 AM EDT [facility] 56 HCT 31.9(L) 36.0 - 45.2 % 07/24/2023 10:45 AM EDT [facility] 56 MCV 84.8 81.5 - 97.5 fL 07/24/2023 10:45 AM EDT [facility] 56 MCH 26.3 27.0 - 34.0 pg 07/24/2023 10:45 AM EDT [address] MCHC 31.0 32.0 - 36.0 g/dL 07/24/2023 10:45 AM EDT [facility] 56 RDW 16.1 11.5 - 15.5 % 07/24/2023 10:45 AM EDT [facility] 56 PLT 476(H) 140 - 400 K/uL 07/24/2023 10:45 AM EDT [facility] 56 MPV 8.7 6.6 - 11.1 fL 07/24/2023 10:45 AM EDT [facility] 56 Blood Venous blood specimen / Unknown Venipuncture / Unknown 07/24/2023 10:35 AM EDT 07/24/2023 10:35 AM EDT Hesham Bray MD LAB BLOOD ORDERA BLES [facility] [address] [place] [address] documented in this encounter Visit Diagnoses Diagnosis Primary cancer of left upper lobe of lung (HCC) Encounter for long-term (current) use of medications Encounter for long-term (current) use of other medications documented in this encounter Advance Directives Documents on File Type Date Recorded 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 Question Answer Comments Discussion of Advance Directives occurred with: Patient Care Teams Bait Packer Relationship Specialty Start Date End Date Antonio Loza MD [address] [place] [address] PCP - General Family Medicine 07/13/23 documented as of this encounter
--- OUTSIDE RECORDS SUMMARY | 2023-09-26 17:41 | External Medical Summary ---
Author Name Unknown Address Unknown Organization K09:[facility] [address] [place] [address] Laboratory Report Ordering Provider Test Date Status NESS PADILLA 07/24/2023 10:35:26 Final Observation Date Value Abnormality Reference (Units ) Status BUN 07/24/2023 10:35:26 23 Above high normal 6-20 (mg/dL) Final Creatinine 07/24/2023 10:35:26 0.9 0.5-1.0 (mg/dL) Final Glomerular filtration rate/1.73 sq M.predicted [Volume Rate/Area] in Serum, Plasma or Blood by Creatinine-based formula (CKD-EPI) 07/24/2023 10:35:26 64 >=60 (mL/min) Final eGFR is calculated based on the CKD-EPI 2020 equation SODIUM 07/24/2023 10:35:26 131 Below low normal 135 -146 (mmol/L) Final Potassium 07/24/2023 10:35:26 4.8 3.5-5.1 (m mol/L) Final Cl 07/24/2023 10:35:26 95 Below low normal 98- 107 (mmol/L) Final CO2 07/24/2023 10:35:26 24 22-32 (mmo l/L) Final Anion gap 07/24/2023 10:35:26 12 7-15 (mmol /L) Final Glucose 07/24/2023 10:35:26 90 70-120 (mg /dL) Final Albumin 07/24/2023 10:35:26 3.6 Below low normal 3.8 -5.0 (g/dL) Final AST (Aspartate aminotransferase) 07/24/2023 10:35:26 18 10-35 (U/L) Fin al Alk Phos 07/24/2023 10:35:26 104 35-130 (U/ L) Final Bilirubin, Total 07/24/2023 10:35:26 0.3 <=1 .2 (mg/dL) Final Calcium 07/24/2023 10:35:26 9.9 8.4-10.2 ( mg/dL) Final Protein 07/24/2023 10:35:26 8.3 6.0-8.3 (g /dL) Final ALT (Alanine aminotransferase) 07/24/2023 10:35:26 10 10-35 (U/L) Emmanuel dunbar Performing Location [facility] [address] [place] [address]
--- OUTSIDE RECORDS SUMMARY | 2023-09-26 17:42 | External Medical Summary | Summary of Care ---
Author Name Unknown Organization [facility] Address [address] [place] [address] Phone [phone] Care Team Providers Care Risk And Insurance Consultant Name Role Phone Antonio Loza MD Primary Care Provider [phone] Reason for Visit * Reason Comments Follow Up Review PET Encounter Details Date Type Department Care Team Description 07/17/2023 Office Visit Hematology/Oncology Sanjiv Cabrera [place] [address] [facility] [place] [address] Hesham Bray MD [address] [place] [address] Chemotherapy induced nausea and vomiting*; Bilateral pulmonary embolism (HCC); Primary cancer of left upper lobe of [...] morning. 0 Active Sotorasib 120 MG Oral TabletIndications :Primary cancer of left upper lobe of lung (HCC) Take 480 mg by mouth in the morning. 120 Tablet 5 06/15/2023 Active Turmeric 500 MG Oral Capsule Take [...] before bedtime. 60 Tablet 1 05/13/2023 07/17/2023 Discontinue d(Refill) oxyCODONE HCl 5 MG Oral Tablet (Oxy IR)Indications:Pr imary cancer of left upper lobe of lung (HCC) Take 1 Tablet by mouth every 4 hours as needed for Pain, Moderate. 30 Tablet 0 07/11/2023 07/17/2023 Discontinue d(Refill) documented as of this [...] 11/21/2017 06/01/2020 Overview: DO NOT DELETE [facility] Study: Project # [id number], Splunk Consultant: Khadar Dodd, PhD. SUMMARY: Goal: Establish [...] contact study staff at ; after hours Splunk Consultant via the [facility] hemming and tacking machine operator . Please contact study team before resolving/deleting from patients problem list. Study phone number: [phone]. Diagnosis changed due to Research Module. Go to Snapshot for study details. Encounter for examination fo r normal comparison and control in clinical research program 11/21/2017 06/30/2022 Overview: DO NOT DELETE - [facility] DETECT Study: Project # [id number], Splunk Consultant: Mykel Gill, MS, MPH. SUMMARY: Goal: [...] contact study staff at ; after hours Splunk Consultant via the [facility] hemming and tacking machine operator . - Please contact study team before resolving/deleting from patients problem list. Study phone number: [phone]. Diagnosis changed due to Research Module. Go [...] Sign Reading Time Taken Comments Blood Pressure 134/77 07/17/2023 2:14 PM EDT Pulse 74 07/17/2023 2:14 PM EDT Temperature 36.7 C (98.1 F) 07/17/2023 2:14 PM ED T Respiratory Rate 16 07/17/2023 2:14 PM EDT Oxygen Saturation 97% 07/17/2023 2:14 PM EDT Inhaled Oxygen Concentration - - Weight 49.8 kg (109 lb 11.2 oz) 07/17/2023 2:14 PM EDT Height 160 cm (5' 3") 07/17/2023 2:14 PM EDT Body Mass Index 19.43 07/17/2023 2:14 PM EDT documented in this [...] Progress Notes * Hesham Bray MD - 07/17/2023 2:23 PM EDT Outpatient Consult Note Data Source: Patient, Epic record. Data Source: Patient, Epic record. 07/17/2023 2:23 PM Reba Yarely Delaney [id number] 78 year old Patient Encounter: HEMATOLOGY/ONCOLOGY [facility] Cancer Diagnosis: Transfer from Dr. Mitchell [...] of skin cancer. Interval History: She was admitted to hospital on 06/28/2023 with complaint of chest pain and generalized weakness. She had a CT scan done which shows 7.4 x 4.6 cm heterogeneously enhancing irregular left apical pulmonary mass consistent with primary lung malignancy with chest wall extension and subtle associated bony erosion of the posterior left second rib, extensive lower cervical and thoracic lymphadenopathy consistent with geoff spread of disease. Follow-up PET scan was done on 07/13/2023 which shows progressive disease with enlargement of the left apical mass and worsening lymphadenopathy in the neck and chest as well as new metabolically active T3-T4 vertebral body lesion. LABS/IMAGING: Results for orders placed or performed during the hospital encounter of 07/13/23 GLUCOSE METER, POINT OF CARE Result Value Ref Range Glucose Meter 93 70 - 120 mg/dL REVIEW OF SYSTEMS: General: No Fever, chills, [...] Hematuria or dysuria Musculoskeletal: Generalized weakness and pain specially in the left axillary and shoulder area Skin: No skin rash or lesions noted Psychiatric: No vegetative signs of depression Endocrine: [...] by mouth at bedtime. 30 Tablet 0 Ondansetron HCl 4 MG Oral Tablet Take 1 Tablet by mouth every 6 hours as needed for Nausea. 30 Tablet 3 Apixaban 5 MG Oral Tablet (Eliquis) Take 1 Tablet by mouth in the morning and 1 Tablet before bedtime. 60 Tablet 1 predniSONE 10 MG Oral Tablet (Deltasone) Take 1 Tablet by mouth in the morning. Turmeric 500 MG Oral Capsule Take 1 Capsule by mouth in the morning. Vitamin D 25 MCG (1000 UT) Oral Tablet Take 1 Tablet by mouth in the morning. Simethicone 80 MG Oral Tablet (Bicarsim) Take 1 Tablet by mouth every 6 hours as needed for Gas. 30Tablet 0 Famotidine 20 MG Oral Tablet (Pepcid) Take 1 Tablet by mouth in the morning and 1 Tablet before bedtime. 180 Tablet 1 Vitamin B-12 1000 MCG Oral Tablet (Cyanocobalamin) Take 1 Tablet by mouth in the morning. Sotorasib 120 MG Oral Tablet Take 480 mg by mouth in the morning. 120 Tablet 5 oxyCODONE HCl 5 MG Oral Tablet (Oxy IR) Take 1 Tablet by mouth every 4 hours as needed for Pain, Moderate. 30 Tablet 0 No current facility-administered medications for [...] appearing patient in no acute distress BP 134/77 (BP Site: Left Arm, BP Position: Sitting, BP Cuff Size: Regular) | Pulse 74 | Temp 36.7 C (98.1 F) (Tympanic) | Resp 16 | Ht 1.6 m (5' 3") | Wt 49.8 kg (109 lb 11.2 oz) | SpO2 97% | BMI19.43 kg/m | BSA 1.49 m Vitals reviewed. HEENT: No oral or pharyngeal masses, ulceration or thrush noted, no sinus tenderness. Neck is supple with no thyromegaly or JVD noted. Lymph Nodes: There is a palpable lymph nodes the left axillary area Lungs/Thorax: Clear to auscultation, no accessory muscles of respiration being used. Heart: Regular rate and rhythm, normal S1, S2 Abdomen: Soft, nontender, bowel sounds present, no appreciable hepatosplenomegaly, no palpable masses Extremeties: Good pulses bilaterally, no peripheral edema. Musculoskeletal: No pain on palpation over bony [...] left adrenal metastasis. Currently she is taking sotorasib. She was recently admitted to the hospital with complaint of chest pain and had CT scan done which shows extensive lymphadenopathy and is left apical lung mass. She also had a PET scan done which revealed disease progression with worsening lymphadenopathy in the neck and the chest and new metabolically active lesion involving the T3-T4. Patient has a significant disease progression while she is taking sotorasib. Discussed with the patient and family including daughter and son about the diagnosis and prognosis reviewed all the available blood tests and PET scan and CT scan finding with him. I also personally reviewed the radiology images of the PET scan. Patient has significant disease progression. 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 PDL1 expression was 10%. On the recent PET scan she has significant disease progression with lymphadenopathy and increasing lung mass. She has a neuroendocrine feature and tumor is behaving like a small cell lung cancer. She may benefit with combination of carboplatin plus etoposide and atezolizumab. Discussed with her aboutthe diagnosis, prognosis, benefit, risk, side effects and toxicity of the treatment. Role of any treatment is palliative. After detailed discussion she agreed to proceed with the chemotherapy and signed the consent form. Daughter is very anxious to start treatment as soon as possible. Because of the pain daughter wantsme to prescribe fentanyl patch. Currently she is taking oxycodone 5 mg tablets. She has appointmentwith palliative care on 07/26/2023. I renewed the prescription of oxycodone and gave her 12.5 mg continue patch to be changed every 72 hours. Inform the patient and family about the benefit, risk, side effect toxicity of fentanyl. PLAN: As above. She will return clinic for follow-up 3 weeks after receiving 1st cycle of chemotherapy. I spent a total of 60 minutes on the date of service in [...] in this encounter Nursing Notes * Rosalba Brizuela, [facility] - 07/17/2023 2:17 PM EDT Patient identifed by name and [...] it for you? ALREADY ACTIVE Filed Vitals: 07/17/23 1414 BP: 134/77 Pulse: 74 Resp: 16 Temp: 36.7 C (98.1 F) TempSrc: Tympanic SpO2: 97% Weight: 49.8 kg (109 lb 11.2 oz) Height: 1.6 m (5' 3") Patient was [...] comprehension of instructions. documented in this encounter Miscellaneous Notes * [facility] Update - Hesham Bray MD - 07/17/2023 2:43 PM EDT START ON PATHWAY REGIMEN - Small Cell Lung [id number]: Atezolizumab 1,200 mg D1 + Carboplatin AUC=5 D1 + Etoposide 100 mg/m D1-3 q21 Days x 4 Cycles, Followed by Atezolizumab 1,200 mg q21 Days Until Progression or Unacceptable Toxicity Cycles 1 through 4, every 21 days: Atezolizumab (Tecentriq) 1,200 mg flat dose IV once on day 1 of cycles 1 through 4 Carboplatin AUC=5 IV once on day 1 of cycles 1 through 4 Etoposide 100 mg/m IV once daily on days 1 through 3 of cycles 1 through 4 Cycles 5 and beyond, every 21 days: Atezolizumab (Tecentriq) 1,200 mg flat dose IV once on day 1 of cycles 5 and beyond Always confirm dose/schedule in your pharmacy ordering system Citations: -Sachin L, Leroy , Victor Manuel?constantine A, et al. First-Line Atezolizumab plus Chemotherapy in Extensive-Stage Small-Cell Lung Cancer. N Engl J Med. June 2018. doi:10.1056/[id number]. URL: https://www.ncbi.nlm.nih.gov/pubmed/00715329 Patient Characteristics: Newly Diagnosed, Preoperative or Nonsurgical Candidate (Clinical Staging), First Line, Extensive Stage Therapeutic Status: Newly Diagnosed, Preoperative or Nonsurgical Candidate (Clinical Staging) AJCC T Category: cT4 AJCC N Category: cN3 AJCC M Category: cM1 AJCC 8 Stage Grouping: IV Stage Classification: Extensive Intent of Therapy: Non-Curative / Palliative Intent, Discussed with Patient * [facility] Notification - Hesham Bray MD - 07/17/2023 2:43 PM EDT A new patient decision has been made in ClinicalPath. Details of this patient have been provided below: Patient Information: Name: Reba Delaney : 1945 Insurance Provider: MEDICARE A AND B Insurance Provider Name: Hesham Bray Disease: Small Cell Lung Pathway Followed: Small Cell Lung, Newly Diagnosed, Preoperative or Nonsurgical Candidate (ClinicalStaging), First Line, Extensive Stage Patient Characteristics: Newly Diagnosed, Preoperative or Nonsurgical Candidate (Clinical Staging), First Line, Extensive Stage Therapeutic Status: Newly Diagnosed, Preoperative or Nonsurgical Candidate (Clinical Staging) AJCC T Category: cT4 AJCC N Category: cN3 AJCC M Category: cM1 AJCC 8 Stage Grouping: IV Stage Classification: Extensive Intent of Therapy: Non-Curative / Palliative Intent, Discussed with Patient Treatment Details: START ON PATHWAY REGIMEN [id number]: Atezolizumab 1,200 mg D1 + Carboplatin AUC=5 D1 + Etoposide 100 mg/m D1-3 q21 Days x 4 Cycles, Followed by Atezolizumab 1,200 mg q21 Days Until Progression or Unacceptable Toxicity Cycles 1 through 4, every 21 days: Atezolizumab (Tecentriq) 1,200 mg flat dose IV once on day 1 of cycles 1 through 4 Carboplatin AUC=5 IV once on day 1 of cycles 1 through 4 Etoposide 100 mg/m IV once daily on days 1 through 3 of cycles 1 through 4 Cycles 5 and beyond, every 21 days: Atezolizumab (Tecentriq) 1,200 mg flat dose IV once on day 1 of cycles 5 and beyond Always confirm dose/schedule in your pharmacy ordering system Citations: -Leroy Holman , Victor Manuel?constantine A, et al. First-Line Atezolizumab plus Chemotherapy in Extensive-Stage Small-Cell Lung Cancer. N Engl J Med. June 2018. doi:10.1056/[id number]. URL: https://www.ncbi.nlm.nih.gov/pubmed/21677740 documented in this encounter Plan of Treatment Upcoming Encounters Date Type Specialty Care Team Description 07/19/2023 Pharmacy [facility] [address] [place], [place] [id number] 07/20/2023 Nurse Only Hematology [facility] Nurse Hem Onc [address] [place] [address] 07/26/2023 Office Visit Palliative Medicine Lilibeth Chavez MD [address] [place] [id number] Health Maintenance Due Date Last Done [...] as of this encounter Visit Diagnoses Diagnosis Chemotherapy induced nausea and vomiting- Primary Nausea with vomiting Bilateral pulmonary embolism (HCC) Other pulmonary embolism and infarction Primary cancer of left upper lobe of lung (HCC) documented in this encounter Advance Directives Documents on File Type Date Recorded Patient 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 Question Answer Comments Discussion of Advance Directives occurred with: Patient Care Teams Risk And Insurance Consultant Relationship Specialty Start Date End Date Antonio Loza MD [address] [place] [id number] PCP - General Family Medicine 07/13/23 documented as of this encounter
--- OUTSIDE RECORDS SUMMARY | 2023-09-26 17:42 | External Medical Summary | Summary of Care ---
Author Name Unknown Organization [facility] Address [address] [place] [address] Phone [phone] Care Team Providers Care Sleep Medicine Physician Name Role Phone Antonio Loza MD Primary Care Provider [phone] Reason for Referral * Precert (Within 10 days (routine)) - Authorized Specialty Diagnoses / Procedures Referred By Contac t Referred To Contact Radiology Diagnoses Primary cancer of left upper lobe of lung (HCC) Procedures PET CT SKULL BASE TO MID-THIGH Hesham Bray MD [address] [place] [address] Referral ID Status Reason Start Date Expiration Date V isits Requested Visits Authorized [id number] Authorized 06/28/2023 999 999 Reason for Visit * Precert (Within 10 days (routine)) - Authorized Specialty Diagnoses / Procedures Referred By Lubna guidry Referred To Contact Radiology Diagnoses Primary cancer of left upper lobe of lung (HCC) Procedures PET CT SKULL BASE TO MID-THIGH Hesham Bray MD [address] [place] [address] Referral ID Status Reason Start Date Expiration Date V isits Requested Visits Authorized [id number] Authorized 06/28/2023 999 999 Encounter Details Date Type Department Care Team Description 07/13/[address] IMAGING, [facility] [address] [place] [address] Arrived Allergies No known active allergiesdocumented as of this encounter (statuses as of 07/14/2023) Medications Medication Sig Dispensed Refills Start Date [...] the morning. 120 Tablet 5 06/15/2023 Active oxyCODONE HCl 5 MG Oral Tablet (Oxy IR)Indications:Gladys conchita cancer of left upper lobe of lung (HCC) Take 1 Tablet by mouth every 4 hours as needed for Pain, Moderate. 30 Tablet 0 07/11/2023 Active Hospital, Clinic, or Other Facility Administered Medication Ordered Dose Route Frequency Start Date End Date Status sodium chloride 0.9 % flush/inj 10 mL 10 mL IV PUSH ONCE 07/13/2023 07/13/2023 Ended documented as of this encounter (statuses as of 07/14/2023) Active Problems Problem Noted Date Primary cancer [...] as of this encounter (statuses as of 07/14/2023) Resolved Problems Problem Noted Date Resolved Date Encounter for examination fo r normal comparison and control in clinical research program 11/21/2017 06/01/2020 Overview: DO NOT DELETE [facility] DETECT Study: Project # [id number], Rn Embedded: Khadar Dodd, PhD. SUMMARY: Goal: Establish test [...] study staff at ; after hours Rn Embedded via the [facility] coupling machine operator . Please contact study team before resolving/deleting from patients problem list. Study phone number: [phone]. Diagnosis changed due to Research Module. Go to Snapshot for study details. Encounter for examination fo r normal comparison and control in clinical research program 11/21/2017 06/30/2022 Overview: DO NOT DELETE - [facility] Study: Project # [id number], Rn Embedded: Mykel Gill, MS, MPH. SUMMARY: Goal: Establish [...] study staff at ; after hours Rn Embedded via the [facility] coupling machine operator . - Please contact study team before resolving/deleting from patients problem list. Study phone number: [phone]. Diagnosis changed due to Research Module. Go to Snapshot for study details. documented as of this encounter (statuses as of 07/14/2023) Immunizations Name Administration Dates Next Due Covid-19 Ad26, Single Dose (Pierce/J&J) 022 Pneumococcal Polysaccharide PPV23 (Pneumovax) 01 /03/2022 TD - Tetanus/Diptheria (ADULT) 08/18/2006 TD, Preservative [...] - Inhaled Oxygen Concentration - - Weight 47.6 kg (105 lb) 07/13/2023 1:00 PM EDT Height 160 cm (5' 3") 07/13/2023 1:00 PM EDT Body Mass Index 18.6 07/13/2023 1:00 PM EDT documented in this encounter Functional [...] Date Type Specialty Care Team Description 07/17/2023 Office Visit Hematology Oncology Hesham Bray MD [address] [place] [address] 07/19/2023 Pharmacy [facility]c [address] [place] [address] 07/21/2023 Office Visit Gastroenterology Vianey Corrigan CRNP [address] [facility] [address] 07/26/2023 Office Visit Palliative Medicine Lilibeth Chavez MD [address] [place] [address] Health Maintenance Due Date Last Done [...] Procedure Name Priority Date/Time Associated Diagnosis Comments PET CT SKULL BASE TO MID-THIGH Routine 07/13/2023 2:35 PM EDT Primary cancer of left upper lobe of lung (HCC) GLUCOSE METER, POINT OF CARE UZAIR 07/13/2023 1:06 PM EDT documented in this encounter Results * PET CT SKULL BASE TO MID-THIGH (07/13/2023 2:35 PM EDT) Anatomical Region Laterality Modality Body, Chest, Abdomen, Pelvis Pos itron Emission Tomography (PET) 07/14/2023 10:2 6 AM EDT Impressions 07/14/2023 10:56 AM EDT IMPRESSION Progression of disease with enlargement of the left apical mass and worsening lymphadenopathy in the neck and chest as well as a new metabolically active T3- T4 vertebral body lesion. I have personally reviewed this examination and agree with the resident/fellow physician's interpretation. Narrative 07/14/2023 10:56 AM EDT EXAM PET CT SKULL BASE TO MID-THIGH - 07/13/2023 2:35 pm HISTORY lung ca COMPARISON CT dated 03/29/2023 MR brain dated 03/31/2023 TECHNIQUE Following the intravenous administration of approximately 10.61 mCi of FDG 18 and oral contrast Gastroview administration, PET/CT imaging was performed from the skull base through the mid thighs 66 minutes following the radiotracer injection. The patient's glucose level at the time of radiotracer injection was 93 mg/dL. This is a follow up PET/CT for the above indication. The standardized uptake values (SUV) reported below are maximum values within a region of interest. FINDINGS Mediastinal blood pool SUV: 1.9. Hepatic SUV: 2.4. PET SCAN: Head / Neck: Worsened left supraclavicular lymphadenopathy with a reference lymph node measuring 1.9 x 1.3 with SUV 12.9. Similar metabolically active right parotid nodule measuring 1.2 x 1.0 cm with SUV 5.5. Chest: Increased size of the left apical mass now measuring 7.6 x 4.8 cm with SUV 19.8 (5.2 x 4.5 cm with SUV 14.6 when measured with similar technique). Increased left axillary lymphadenopathy, with a reference lymph node now measuring 5.9 x 2.6 cm with SUV 23.9 (4.5 x 1.9 cm with SUV 22.7 on prior). Additional conglomerated axillary lymphadenopathy now measures 4.0 x 3.3 cm with SUV 25.9 (1.9 x 2.4 cm on prior). Increased left hilar and mediastinal lymphadenopathy with SUV now measuring 21.0 (15.2 on prior). Abdomen/Pelvis: No suspicious metabolic activity. Musculoskeletal / Other: New metabolically active T3-T4 vertebral body lesion with SUV 11.7. CT SCAN: Head / Neck: Calcified atherosclerotic disease in the carotid vasculature. Chest: Emphysema. Mild calcified coronary artery atherosclerotic disease. Abdomen/Pelvis: Left renal cyst. Moderate calcified atherosclerotic disease. Musculoskeletal / Other: Left hip arthroplasty. Procedure Note Nain Solano, DO - 07/14/[address] SKULL BASE TO MID-THIGH - 07/13/2023 2:35 pm HISTORY lung ca COMPARISON CT dated 03/29/2023 MR brain dated 03/31/2023 TECHNIQUE Following the intravenous administration of approximately 10.61 mCi of FDG18 and oral contrast Gastroview administration, PET/CT imaging wasperformed from the skull base through the mid thighs 66 minutes followingthe radiotracer injection. The patient's glucose level at the time ofradiotracer injection was 93 mg/dL. This is a follow up PET/CT for theabove indication. The standardized uptake values (SUV) reported below aremaximum values within a region of interest. FINDINGS Mediastinal blood pool SUV: 1.9. Hepatic SUV: 2.4. PET SCAN: Head / Neck: Worsened left supraclavicular lymphadenopathy with areference lymph node measuring 1.9 x 1.3 with SUV 12.9. Similarmetabolically active right parotid nodule measuring 1.2 x 1.0 cm with SUV5.5. Chest: Increased size of the left apical mass now measuring 7.6 x 4.8 cmwith SUV 19.8 (5.2 x 4.5 cm with SUV 14.6 when measured with similartechnique). Increased left axillary lymphadenopathy, with a referencelymph node now measuring 5.9 x 2.6 cm with SUV 23.9 (4.5 x 1.9 cm with SUV22.7 on prior). Additional conglomerated axillary lymphadenopathy nowmeasures 4.0 x 3.3 cm with SUV 25.9 (1.9 x 2.4 cm on prior). Increasedleft hilar and mediastinal lymphadenopathy with SUV now measuring 21.0(15.2 on prior). Abdomen/Pelvis: No suspicious metabolic activity. Musculoskeletal / Other: New metabolically active T3-T4 vertebral bodylesion with SUV 11.7. CT SCAN: Head / Neck: Calcified atherosclerotic disease in the carotidvasculature. Chest: Emphysema. Mild calcified coronary artery atheroscleroticdisease. Abdomen/Pelvis: Left renal cyst. Moderate calcified atheroscleroticdisease. Musculoskeletal / Other: Left hip arthroplasty. IMPRESSION IMPRESSION Progression of disease with enlargement of the left apical mass andworsening lymphadenopathy in the neck and chest as well as a newmetabolically active T3-T4 vertebral body lesion. I have personally reviewed this examination and agree with the resident/fellow physician's interpretation. Hesham Bray MD RAD NUCLEAR MED * GLUCOSE METER, POINT OF CARE (07/13/2023 1:06 PM EDT) Glucose Meter 93 70 - 120 mg/dL 07/13/2023 1:18 PM EDT [facility] Blood Whole blood specimen / Unknown 07/13/2023 1:06 PM EDT 07/13/2023 1:18 PM EDT No Physician Data Unknown LAB POINT OF C ARE TEST DOCKED DEVICE UNSOLICITED RESULTS [facility] [employer] [facility] [address] [place] [address] documented in this encounter Visit Diagnoses Diagnosis Primary cancer of left upper lobe of lung (HCC) documented in this encounter Administered Medications Inactive Administered Medications - up to 3 most recent administrations Medication Order MAR Action Action Date Dose Rate Site fludeoxyglucose f-18 (Fdg) inj 10.61 millicurie 10.61 millicurie, Intravenous, ONCE, On Alexus 07/13/23 at 1326, For 1 dose, Radiology Medication Routing (Non-IR) Given 07/13/2023 1:09 PM EDT 10.61 millicuries sodium chloride 0.9 % flush/inj 10 mL 10 mL, IV Push, ONCE, On Alexus 07/13/23 at 1326, For 1 dose, Do not flush if lock, PICC, or central line not in place; IV infusing or unable to flush., Radiology Medication Routing (Non-IR) Given 07/13/2023 1:09 PM EDT 10 mL documented in this encounter Advance Directives Documents on File Type Date Recorded 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 Question Answer Comments Discussion of Advance Directives occurred with: Patient Care Teams Sleep Medicine Physician Relationship Specialty Start Date End Date Antonio Loza MD [address] [place] [address] PCP - General Family Medicine 07/13/23 documented as of this encounter
--- OUTSIDE RECORDS SUMMARY | 2023-09-26 17:42 | External Medical Summary | Summary of Care ---
Author Name Unknown Organization [facility] Address [address] [place] [address] Phone [phone] Care Team Providers Care Trommel Tender Name Role Phone Unavailable Primary Care Provider Unavailabl e Reason for Visit * Reason Onset Date Comments Triage Advice 06/28/2023 Encounter Details Date Type Department Care Team Description 06/28/2023 Telephone Hematology/Oncology [facility] [place] [address] [facility] [place] [address] Hesham Bray MD [address] [facility] [place] [address] Triage Advice Allergies No known active allergiesdocumented as [...] [facility] DETECT Study: Project # [id number], Supervisor Telephone Information: Khadar Dodd, PhD. SUMMARY: Goal: Establish test [...] study staff at ; after hours Supervisor Telephone Information via the [facility] bandsaw operator . Please contact study team before resolving/deleting from patients problem list. Study phone number: [phone]. Diagnosis changed due to Research Module. Go to Snapshot for study details. Encounter for examination fo r normal comparison and control in clinical research program 11/21/2017 06/30/2022 Overview: DO NOT DELETE - [facility] DETECT Study: Project # [id number], Supervisor Telephone Information: Mykel Gill, MS, MPH. SUMMARY: Goal: Establish [...] study staff at ; after hours Supervisor Telephone Information via the [facility] bandsaw operator . - Please contact study team before resolving/deleting from patients problem list. Study phone number: [phone]. Diagnosis changed due to Research Module. Go [...] Telephone Encounter - Ellen Joshi LPN - 06/28/2023 8:53 AM EDT Patient called office, transferred from central scheduling, "she feels like crap", she is having pressure to left side of chest that radiates down her left arm. She states she is not having trouble breathing but she "needs deep gasp from her stomach to catch a breath" and it feels like "someone is sitting on her chest like heavy pressure" She states she has been taking ibuprofen every 4 hours for the past day, but it is not doing anything. Notified patient due to her symptoms she needs to go to the nearest ED. Patient refuses, she statesshe will not go, she wants to see Dr. Bray. Notified Dr. Bray of patient's symptoms, he agrees with decision to go to ED immediately. Called back patient, notified her Dr. Bray wants her to go to ED. Educated patient on the urgency to go to the ED with her symptoms. Reba is agreeable, " states she will go in a little bit" Called [facility] ED, spoke to triage nurse, did not give name, gave Reba's information and faxed patient's information to [facility] ED. DELICIA BETH documented in this encounter Plan of Treatment Upcoming Encounters Date Type Specialty Care Team Description 07/05/2023 Pharmacy Pharmacy [facility] Hem[facility]Onc [address] [place] [address] 07/17/2023 Imaging Radiology 07/21/2023 Office Visit Gastroenterology Vianey Corrigan, DAVID [address] [place] [address] 08/15/2023 Office Visit Hematology Oncology Hesham Bray MD [address] [place] [address] Health Maintenance Due Date Last Done Comments [...] Documents on File Type Date Recorded Patient Operations Officer Afloat Expl anation Advance Directives and Living Will 06/24/2022 ADVANCE DIRECTIVE / LIVING WILL Power of Shroud Line Tier 06/24/2022 POWER OF A TTORNEY Latest Code Status on File Code Status Date Activated Date Inactivated Comments No Code 03/20/2023 1:42 AM 03/21/2023 5:59 PM This order reflects the patients wishes and were consensually agreed upon. Question Answer Comments Discussion of Advance Directives occurred with: Patient
--- OUTSIDE RECORDS SUMMARY | 2023-09-26 17:42 | External Medical Summary | Summary of Care ---
Author Name Unknown Organization [facility] Address [address] [place] [address] Phone [phone] Care Team Providers Care Ware Tester Name Role Phone Antonio Loza MD Primary Care Provider [phone] Reason for Visit * Reason Onset Date Comments Precert Future 07/17/2023 Tecentriq, carbo , etoposide Encounter Details Date Type Department Care Team Description 07/17/2023 Telephone Hematology/Oncology Treatment, [place] [address] [place] [id number] Hesham Bray MD [address] [place] [address] Precert Future (Tecentriq, carbo, etoposide) Allergies No [...] morning. 0 Active Sotorasib 120 MG Oral TabletIndications:Pr imary cancer of left [...] 3 days. 4 Patch 0 07/17/2023 Active documented as of this encounter (statuses [...] program 11/21/2017 06/01/2020 Overview: [facility] NOT DELETE [facility] Study: Project # [id number], Integrated Circuit Design Engineer: Khadar Dodd, PhD. SUMMARY: Goal: Establish [...] contact study staff at ; after hours Integrated Circuit Design Engineer via the [facility] laminating press operator . Please contact study team before resolving/deleting from patients problem list. Study phone number: [phone]. Diagnosis changed due to Research Module. Go to Snapshot for study details. Encounter for examination fo r normal comparison and control in clinical research program 11/21/2017 06/30/2022 Overview: DO NOT DELETE - [facility] Study: Project # [id number], Integrated Circuit Design Engineer: Mykel Gill, MS, MPH. SUMMARY: Goal: [...] contact study staff at ; after hours Integrated Circuit Design Engineer via the [facility] laminating press operator . - Please contact study team before resolving/deleting from patients problem list. Study phone number: [phone]. Diagnosis changed due to Research Module. Go to anydooR for study details. documented as of this [...] EDT Order received for tecentriq, carboplatin, etoposide. [place] plan adjusted and routed for signature. Waiting for auth. Consent signed 07/17/23. Hep B labs 05/10/23. Patient is coming for nurse education visit 07/20/23. documented in this encounter Plan of Treatment Upcoming Encounters Date Type Specialty Care Team Description 07/19/2023 Pharmacy [facility] [address] [place] [address] 07/20/2023 Nurse Only Hematology Oncology [place], Nurse Hem Onc [address] [place] [address] 07/26/2023 Office Visit Palliative Medicine Lilibeth Chavez MD [address] [place] [address] Scheduled Orders Name Type Priority [...] Documents on File Type Date Recorded Patient Director Of Medical Staff Services Expl anation Advance Directives and Living Will 06/24/2022 ADVANCE DIRECTIVE / LIVING WILL Power of Associate Relations Specialist 06/24/2022 POWER OF A TTORNEY Latest Code Status on File Code Status Date Activated Date Inactivated Comments No Code 03/20/2023 1:42 AM 03/21/2023 5:59 PM This order reflects the patients wishes and were consensually agreed upon. Question Answer Comments Discussion of Advance Directives occurred with: Patient Care Teams Ware Tester Relationship Specialty Start Date End Date Antonio Loza MD [address] [place] [address] PCP - General Family Medicine 07/13/23 documented as of this encounter
--- OUTSIDE RECORDS SUMMARY | 2023-09-26 17:42 | External Medical Summary ---
Author Name Unknown Address Unknown Organization : Laboratory Report Ordering Provider Test Date Status NO,UNKNOWN 07/13/2023 13:06:37 Final Observation Date Value Abnormality Reference (Units ) Status Glucose Point of Care 07/13/2023 13:06:37 93 70-120 (mg/dL) Final Performing Location
[2023-09-26] MEDS ORDERED: DEXAMETHASONE SOD INJ 4 MG/ML VIAL IV SCH (19:30)
[2023-09-26] MEDS ORDERED: MoRPHine SULFATE 2 MG/ML CARP IV STA (21:02)
[2023-09-26] MEDS: PIPERACILLIN/TAZOBACTAM 4.5 GM in DEXTROSE 5% MINI-B 100 ML IV SCH (21:10)
[2023-09-26] MEDS: dexAMETHasone 6 MG in SYRINGE 0 ML IV SCH (21:12)
[2023-09-26] MEDS: MoRPHine SULFATE CR 15 MG TABCR PO SCH (21:13)
[2023-09-26] MEDS: SODIUM CHLORIDE 1 GM TABLET PO SCH (21:13)
[2023-09-26] MEDS: DOXYCYCLINE HYCLATE 100 MG CAP PO SCH (21:13)
[2023-09-26] MEDS: MAGNESIUM OXIDE 400 MG TAB PO SCH (21:13)
[2023-09-26] MEDS: FUROSEMIDE INJ 20 MG/2 ML VIAL IV SCH (21:14)
[2023-09-26] MEDS ORDERED: HYDROmorphone INJ 0.5 MG/0.5 ML SYR IV STA (22:38)
[2023-09-26 23:21] LABS: BUN Creatinine Ratio 16.4 (10-20); Calcium 8.5 mg/dl (8.6-10.3); Creatinine Clr Calc Pharmacy 54.6 ml/min; Est GFR (African American) 97.6 ml/min; Est GFR (Non-African American) 84.2 ml/min; Potassium 3.4 mmol/L (3.5-5.1)
[2023-09-26 23:29] LABS: Troponin I High Sensitivity 13.6 pg/ml (0-14)
--- OUTSIDE RECORDS SUMMARY | 2023-09-27 02:04 | External Medical Summary | Summary of Care ---
Author Name Unknown Organization [facility] Address [address] [place] [address] Phone [phone] Care Team Providers Care Handy Worker Name Role Phone Antonio Loza MD Primary Care Provider [phone] Reason for Visit * Reason Onset Date Comments Advice 09/26/2023 Encounter Details Date Type Department Care Team (Late st Contact Info) Description 09/26/2023 Telephone Hematology/Oncology [facility] [place] [address] [facility] [place] [address] Hesham Bray MD [address] [place] [address] Advice Allergies No known active allergiesdocumented as of this encounter (statuses as of 09/26/2023) Medications Medication Sig Dispensed Refills Start Date [...] before bedtime. 180 Tablet 1 04/13/2023 Active Vitamin B-12 1000 MCG Oral Tablet (Cyanocobalamin) Take 1 Tablet by mouth in the morning. 0 Active predniSONE 10 MG Oral Tablet (Deltasone) Take 1 Tablet by mouth in the morning. 0 Active Turmeric 500 MG Oral Capsule Take 1 Capsule by mouth in the morning. 0 Active Prochlorperazine Maleate 10 MG Oral Tablet [...] before bedtime. 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 30 Tablet 0 09/25/2023 Active documented as of this encounter (statuses as of 09/26/2023) Active Problems Problem Noted Date Diagnosed Date [...] as of this encounter (statuses as of 09/26/2023) Resolved Problems Problem Noted Date Diagnosed Date Resolved Date Encounter for examination fo r normal comparison and control in clinical research program 11/21/2017 06/01/2020 Overview: DO NOT DELETE [facility] Study: Project # [id number], Splicing Supervisor: Khadar Dodd, PhD. SUMMARY: Goal: Establish [...] contact study staff at ; after hours Splicing Supervisor via the [facility] vacuum applicator operator . Please contact study team before resolving/deleting from patients problem list. Study phone number: [phone]. Diagnosis changed due to Research Module. Go to Snapshot for study details. Encounter for examination fo r normal comparison and control in clinical research program 11/21/2017 06/30/2022 Overview: DO NOT DELETE - [employer] DETECT Study: Project # [id number], Splicing Supervisor: Mykel Gill, MS, MPH. SUMMARY: Goal: [...] contact study staff at ; after hours Splicing Supervisor via the [facility] vacuum applicator operator . - Please contact study team before resolving/deleting from patients problem list. Study phone number: [phone]. Diagnosis changed due to Research Module. Go to Snapshot for study details. documented as of this encounter (statuses as of 09/26/2023) Immunizations Name Administration Dates Next Due Covid-19 Ad26, Single Dose (Peirce/J&J) 022 Pneumococcal Polysaccharide PPV23 (Pneumovax) TD - [...] Telephone Encounter - Shavon Lacy RN - 09/26/2023 10:51 AM EST Spoke to Erin- she states that her mother is having significant pain in chest from the cancer, this is causing shortness of breath/ difficulty breathing. This is the same pain she has been having but has gotten worse. Advised her that patient needs to go urgently to ER. She states that she told her mother this, but will emphasize this again. * Telephone Encounter - Rosy Maldonado OSA - 09/26/2023 10:39 AM EST What is the reason for call? Difficulty breathing, thinks possible pneumonia? Tumor is in chest so she has constant pain from that What Clinic is the patient trying to reach? [facility]- Is the clinic open? Yes- Other: transfer to specialty: Caller: other: Tim Erin Return Phone #: [phone] Call was transferred to nurse Sands documented in this encounter Plan of Treatment Upcoming Encounters Date Type Department Care Team (Late st Contact Info) Description 10/03/2023 9:30 AM EST Office Visit Hematology/Oncology [facility] [address] [place] [address] Fatimah Wallace CRNP [address] [place] [address] 10/10/2023 2:30 PM EST Telemedicine Palliative Medicine, [facility] [address] [facility] [address] [place] [address] Fatimah Hartman CRNP [address] [facility] [place] [address] Health Maintenance Due Date Last Done Comments [...] Documents on File Type Date Recorded Patient Guidance And Control System Engineer Expl anation POLST 07/27/2023 11:14 AM POLST Advance Directives and Living Will 06/24/2022 ADVANCE DIRECTIVE / LIVING WILL Power of Rubber Stamps And Dies Supervisor 06/24/2022 POWER OF A TTORNEY Latest Code Status on File Code Status Date Activated Date Inactivated Comments No Code 03/20/2023 1:42 AM 03/21/2023 5:59 PM This order reflects the patients wishes and were consensually agreed upon. Question Answer Comments Discussion of Advance Directives occurred with: Patient Care Teams Handy Worker Relationship Specialty Start Date End Date Antonio Loza MD [address] [place] [address] PCP - General Family Medicine 07/13/23 documented as of this encounter
[2023-09-27 05:03] LABS: Hematocrit (blood only) 26.1 % (37.0-47.0); Hemoglobin 8.4 g/dl (12.0-16.0); Mean Corpuscular Hemoglobin 25.8 pg (25.0-34.0); Mean Corpuscular Hgb Conc 32.2 g/dL (32.0-36.0); Mean Corpuscular Volume 80.1 fL (80.0-100.0); Mean Platelet Volume 9.2 fL (9.4-12.4); Platelet Count 456 K/uL (130-400); RDW Coefficient of Variation 17.9 % (11.5-14.5); RDW Standard Deviation 52.2 fL (36.4-46.3); Red Blood Count 3.26 M/uL (4.20-5.40); White Blood Count 12.99 K/ul (4.8-10.8)
[2023-09-27 05:15] LABS: Albumin Globulin Ratio 0.6 (0.9-2); Albumin Level 2.5 gm/dl (3.4-5.0); BUN Creatinine Ratio 17.2 (10-20); Bilirubin,Total 0.5 mg/dl (0.2-1.0); Calcium 8.4 mg/dl (8.6-10.3); Creatinine Clr Calc Pharmacy 57.2 ml/min; Est GFR (African American) 99.1 ml/min; Est GFR (Non-African American) 85.5 ml/min; Globulin 3.9 gm/dl (2.5-4.0); Magnesium 1.7 mg/dl (1.7-2.4); Potassium 3.4 mmol/L (3.5-5.1); Total Protein 6.4 gm/dl (6.0-8.3)
[2023-09-27 05:21] LABS: Troponin I High Sensitivity 8.5 pg/ml (0-14)
[2023-09-27 05:41] LABS: Basophils # (auto) 0.03 K/uL (0.00-0.20); Basophils % (auto) 0.2 %; Immature Granulocytes # (auto) 0.08 K/uL (0.01-0.20); Immature Granulocytes % (auto) 0.6 %; Lymphocytes # (auto) 0.53 K/uL (1.20-3.40); Lymphocytes % (auto) 4.1 %; Monocytes % (auto) 3.1 %; Neutrophils # (auto) 11.95 K/uL (1.40-6.50)
[2023-09-27] MEDS: SODIUM CHLORIDE 0.9% 1,000 ML IV SCH ×2 (05:42→22:18)
[2023-09-27] MEDS: FUROSEMIDE INJ 20 MG/2 ML VIAL IV SCH ×3 (05:45→22:16)
[2023-09-27] MEDS: PIPERACILLIN/TAZOBACTAM 4.5 GM in DEXTROSE 5% MINI-B 100 ML IV SCH ×3 (05:50→22:40)
[2023-09-27] MEDS ORDERED: METOPROLOL TARTRATE 1 MG/ML VIAL IV STA (07:50)
[2023-09-27] MEDS ORDERED: METOPROLOL TARTRATE 1 MG/ML VIAL IV ONE (07:52)
--- NOTE | 2023-09-27 08:30 | XRay Report ---
XR chest 1V portable HISTORY: 78 years-old Female ff up pleural effusion follow-up study in a patient with left-sided ple ural effusion COMPARISON: Chest CT 09/26/2023 TECHNIQUE: AP view of the chest FINDINGS: Cardiac silhouette is enlarged. Pulmonary emphysema. The right lung is generally clear. Unchanged lef t pleural effusion with left basilar consolidation, left hilar/suprahilar and left apical mass lesion s. Left second rib bony erosion again noted along with left axillary soft tissue fullness. IMPRESSION: 1. Unchanged left pleural effusion with left basilar consolidation. 2. Please refer to yesterday's chest CT for further discussion of the mass lesions within the left he mithorax. 3. 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 ACT 112: Negative or not required by law. The above report was generated using voice recognition software. It may contain grammatical, syntax o r spelling errors. Electronically signed by: Daniel Sheikh M.D. 09/27/2023 8:28 AM
[2023-09-27] MEDS: MoRPHine SULFATE CR 15 MG TABCR PO SCH ×2 (08:46→22:11)
[2023-09-27] MEDS: MAGNESIUM OXIDE 400 MG TAB PO SCH ×2 (08:46→22:13)
[2023-09-27] MEDS: SACCHAROMYCES BOULARDII 250 MG CAP PO SCH (08:48)
[2023-09-27] MEDS: DOXYCYCLINE HYCLATE 100 MG CAP PO SCH ×2 (08:48→22:12)
[2023-09-27] MEDS: SODIUM CHLORIDE 1 GM TABLET PO SCH ×2 (08:49→22:12)
[2023-09-27] MEDS: METOPROLOL SUCC 50MG EXT REL TAB PO SCH (08:50)
[2023-09-27 09:05] LABS: Hematocrit (blood only) 25.9 % (37.0-47.0); Hemoglobin 8.5 g/dl (12.0-16.0); Mean Corpuscular Hemoglobin 25.9 pg (25.0-34.0); Mean Corpuscular Hgb Conc 32.8 g/dL (32.0-36.0); Mean Platelet Volume 8.8 fL (9.4-12.4); Platelet Count 454 K/uL (130-400); RDW Coefficient of Variation 18.1 % (11.5-14.5); RDW Standard Deviation 51.8 fL (36.4-46.3); Red Blood Count 3.28 M/uL (4.20-5.40); White Blood Count 13.53 K/ul (4.8-10.8)
[2023-09-27 09:27] LABS: Basophils # (auto) 0.01 K/uL (0.00-0.20); Basophils % (auto) 0.1 %; Immature Granulocytes # (auto) 0.09 K/uL (0.01-0.20); Immature Granulocytes % (auto) 0.7 %; Lymphocytes # (auto) 0.66 K/uL (1.20-3.40); Lymphocytes % (auto) 4.9 %; Monocytes # (auto) 0.46 K/uL (0.11-0.59); Monocytes % (auto) 3.4 %; Neutrophils # (auto) 12.31 K/uL (1.40-6.50); Neutrophils % (auto) 90.9 %
[2023-09-27 09:29] LABS: Albumin Globulin Ratio 0.6 (0.9-2); Albumin Level 2.5 gm/dl (3.4-5.0); BUN Creatinine Ratio 15.1 (10-20); Bilirubin,Total 0.5 mg/dl (0.2-1.0); Calcium 8.5 mg/dl (8.6-10.3); Creatinine Clr Calc Pharmacy 48.5 ml/min; Est GFR (African American) 91.4 ml/min; Est GFR (Non-African American) 78.9 ml/min; Magnesium 1.7 mg/dl (1.7-2.4); Potassium 3.4 mmol/L (3.5-5.1); Total Protein 6.5 gm/dl (6.0-8.3)
[2023-09-27] MEDS: POTASSIUM CHLORIDE CRTAB 20 MEQ TABCR PO SCH ×2 (11:22→22:11)
[2023-09-27] MEDS: dexAMETHasone 6 MG in SYRINGE 0 ML IV SCH (11:37)
--- NOTE | 2023-09-27 11:40 | Electrocardiogram Report ---
Test Reason : Blood Pressure : / mmHG Vent. Rate : 152 BPM Atrial Rate : 312 BPM P-R Int : 000 ms QRS Dur : 088 ms QT Int : 278 ms P-R-T Axes : 060 113 -69 degrees QTc Int : 442 ms Atrial flutter with variable A-V block Right axis deviation Abnormal ECG When compared with ECG of 26-SEP-2023 21:07, (unconfirmed) Significant changes have occurred Confirmed by Brad Rsoas ([id number]) on 09/27/2023 11:39:52 AM Referred By: REFERRED SELF Confirmed By:Koko Rosas
--- NOTE | 2023-09-27 11:42 | Electrocardiogram Report ---
Test Reason : Blood Pressure : / mmHG Vent. Rate : 110 BPM Atrial Rate : 110 BPM P-R Int : 120 ms QRS Dur : 162 ms QT Int : 496 ms P-R-T Axes : 063 030 071 degrees QTc Int : 671 ms Sinus rhythm with frequent PACs Left atrial enlargement Abnormal ECG When compared with ECG of 26-SEP-2023 12:06, Fusion complexes are now Present Premature supraventricular complexes are now Present QRS duration has increased Confirmed by Brad Rosas ([id number]) on 09/27/2023 11:42:43 AM Referred By: REFERRED SELF Confirmed By:Koko Rosas
--- NOTE | 2023-09-27 11:50 | Nephrology Consultation ---
Date of Consultation September 27, 2023 Assessment & Plan (1) SIADH (syndrome of inappropriate ADH production): SIADH in the setting chronic protein calorie malnutrition and low solute diet. would not typically expect NSCLC to cause SIADH. -cont lasix, NS current rates -maintain eukalemia > may need more than bid 40 mEq -bid bmp for now -continue salt tabs for now -continue 1.2L FR -presenting sNa 127 midday yesterday; goal is no more than 133 late this afternoon; I do note that historically we have struggled to get/maintain her above 130 in the hospital (2) Severe malnutrition: try to avoid meds that worsen already poor po intake if feasible such as urea or higher dose salt tabs History of Present Illness Reason for Consultation: hyponatremia Requesting Physician: Dr Good Attending Physician: Deepak Good MD History of Present Illness 78-year-old female whom I am asked to evaluate for hyponatremia was admitted yesterday with acute hypoxic respiratory failure in the setting of 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 Past medical history includes severe protein calorie malnutrition, chronic euvolemic hyponatremia, history of bilateral pulmonary emboli, atrial fibrillation on Eliquis anticoagulation. Pulmonary has evaluated the patient and apixaban is on hold for possible procedure tomorrow afternoon. On admission she was started on normal saline along with IV Lasix 30 mg every 8 hours; outpatient salt tablets were continued as of last evening. She is also on 40 mill equivalents potassium twice daily, starting this morning. As an outpatient she takes twice daily salt tablets 1 g and 20 mg Lasix twice daily. she is on dexamethasone for covid as well as zosyn/doxycycline. She did have IV contrast last evening for CT chest. Her presenting sodium was 127, up to 129 this morning. Allergies Allergy/AdvReac Type Severity Reaction Status Date / Time No Known Allergies Allergy Verified 06/28/23 16:24 Home Medications Medication Instructions Recorded Confirmed Type apixaban 5 mg tablet (Eliquis) 5 mg PO BID 06/28/23 09/26/23 History lidocaine 5 % topical patch 1 patch transdermal HS PRN Pain 08/14/23 09/26/23 History morphine 15 mg tablet,extended 15 mg PO BID 08/14/23 09/26/23 History release ondansetron HCl 8 mg tablet 8 mg PO Q8H PRN n/v 08/14/23 09/26/23 History prochlorperazine maleate 10 mg 10 mg PO Q6H PRN n/v 08/14/23 09/26/23 History tablet sennosides 8.6 mg tablet (Senokot) 8.6 mg PO QAM PRN const 08/14/23 09/26/23 History furosemide 20 mg tablet (Lasix) 20 mg PO BID #60 tabs 08/18/23 09/26/23 Rx magnesium oxide 400 mg (241.3 mg 400 mg PO BID #60 tabs 08/18/23 09/26/23 Rx magnesium) tablet metoprolol succinate 50 mg 100 mg (2 x 50 mg) PO QAM #60 tabs 08/18/23 09/26/23 Rx tablet,extended release 24 hr sodium chloride 1,000 mg soluble 1,000 mg PO BID #60 tabs 08/18/23 09/26/23 Rx tablet oxycodone 5 mg tablet 10 mg PO Q4H PRN pain 09/26/23 09/26/23 History Patient History Medical History (Updated 09/27/23 @ 11:43 by Claudia Gann MD, PhD) SIADH (syndrome of inappropriate ADH production) History of pulmonary embolism Non-small cell cancer of left lung Surgical History History of parotidectomy History of hip surgery Family History Other Breast cancer Social History Smoking Status: Former smoker Tobacco Type: Cigarettes Second Hand Exposure: No; Do You Dip or Chew Tobacco: No; Hx Alcohol Use: No Hx Substance Use: No Preferred Language: Italian Communication Ability: Impaired Router Tender Required: No Beliefs That Will Affect Care: None Current Living Situation: Family Current Living Situation Comment: daughter Feels Safe at Home: Yes Safety Concerns: Feels Safe At This Time Assistive Devices: Glasses, Oxygen - Continuous and Walker Review of Systems 2 Review of Systems: All systems reviewed & are unremarkable except as noted in HPI & below Physical Exam 2 Constitutional: well developed, + cachectic, + frail appearing and cooperative; no acute distress Eyes: EOM intact bilaterally ENMT: Ears: no external ear abnormality Nose: no external nose abnormality Mouth: + dry oral mucous membranes Neck: no nuchal rigidity Respiratory: normal respiratory effort Auscultation: + diminished lung sounds (barrie L posterior field) Cardiovascular: Rate/Rhythm: regular rate and regular rhythm Extremities: n o edema Gastrointestinal (Abdomen): Inspection/Auscultation: normal bowel sounds P ercussion/Palpation: abdomen soft; abdomen nontender Musculoskeletal: Extremities: strength 5/5 throughout Skin: no rashes, warm and dry Neurologic: low, fluent speech, no tremor Psychiatric: Orientation: alert, oriented to person and oriented to place A ffect: + anxious affect Results & Data Vital Signs (Past 12 Hours) Vital Signs Pulse Pulse Resp BP BP Pulse Ox O2 Del Method 09/27/23 08:51 76 20 113/72 95 Nasal Cannula 09/27/23 08:21 71 16 100 09/27/23 08:20 71 17 100 09/27/23 08:20 108/67 09/27/23 08:10 109/65 09/27/23 08:10 107 H 15 09/27/23 08:04 105/75 09/27/23 08:04 108 H 17 100 09/27/23 08:01 106/77 09/27/23 08:01 107 H 14 100 09/27/23 07:58 112 H 24 99 09/27/23 07:58 93/74 L 09/27/23 07:57 113 H 27 H 99 09/27/23 07:54 128 H 103/82 09/27/23 07:45 155 H 09/27/23 06:30 78 17 100 09/27/23 06:20 81 30 H 100 09/27/23 06:10 83 22 100 09/27/23 06:00 140/84 09/27/23 06:00 83 14 100 09/27/23 05:50 81 16 99 09/27/23 05:40 79 13 100 09/27/23 05:30 79 19 99 09/27/23 05:20 84 21 99 09/27/23 05:10 78 18 99 09/27/23 05:00 127/75 09/27/23 05:00 78 20 99 09/27/23 04:50 80 14 99 09/27/23 04:40 80 16 99 09/27/23 04:30 81 13 99 09/27/23 04:26 80 09/27/23 04:20 83 18 99 09/27/23 04:10 85 19 100 09/27/23 04:00 88 22 98 09/27/23 04:00 112/65 09/27/23 03:50 85 29 H 98 09/27/23 03:40 80 27 H 99 09/27/23 03:30 83 22 98 09/27/23 03:20 86 15 98 09/27/23 03:18 129/71 09/27/23 03:18 86 26 H 99 09/27/23 03:10 87 15 97 09/27/23 03:00 85 23 97 09/27/23 02:50 84 29 H 97 09/27/23 02:40 86 19 97 09/27/23 02:30 87 22 96 09/27/23 02:20 85 19 97 09/27/23 02:10 87 12 97 09/27/23 02:00 104 H 16 92 09/27/23 01:50 94 H 15 96 09/27/23 01:40 88 24 96 09/27/23 01:30 88 25 H 97 09/27/23 01:30 108/79 09/27/23 01:30 87 16 108/79 97 Nasal Cannula 09/27/23 01:20 90 22 97 09/27/23 01:10 89 21 96 09/27/23 01:00 128/72 09/27/23 01:00 128/72 09/27/23 01:00 91 H 24 97 09/27/23 00:50 88 18 97 09/27/23 00:40 90 16 97 09/27/23 00:30 127/75 09/27/23 00:30 91 H 26 H 96 09/27/23 00:20 90 19 98 09/27/23 00:10 89 17 98 09/27/23 00:00 97 H 17 97 09/26/23 23:50 98 H 20 97 O2 Flow Rate 09/27/23 08:51 2 09/27/23 08:21 09/27/23 08:20 09/27/23 08:20 09/27/23 08:10 09/27/23 08:10 09/27/23 08:04 09/27/23 08:04 09/27/23 08:01 09/27/23 08:01 09/27/23 07:58 09/27/23 07:58 09/27/23 07:57 09/27/23 07:54 09/27/23 07:45 09/27/23 06:30 09/27/23 06:20 09/27/23 06:10 09/27/23 06:00 09/27/23 06:00 09/27/23 05:50 09/27/23 05:40 09/27/23 05:30 09/27/23 05:20 09/27/23 05:10 09/27/23 05:00 09/27/23 05:00 09/27/23 04:50 09/27/23 04:40 09/27/23 04:30 09/27/23 04:26 09/27/23 04:20 09/27/23 04:10 09/27/23 04:00 09/27/23 04:00 09/27/23 03:50 09/27/23 03:40 09/27/23 03:30 09/27/23 03:20 09/27/23 03:18 09/27/23 03:18 09/27/23 03:10 09/27/23 03:00 09/27/23 02:50 09/27/23 02:40 09/27/23 02:30 09/27/23 02:20 09/27/23 02:10 09/27/23 02:00 09/27/23 01:50 09/27/23 01:40 09/27/23 01:30 09/27/23 01:30 09/27/23 01:30 2 09/27/23 01:20 09/27/23 01:10 09/27/23 01:00 09/27/23 01:00 09/27/23 01:00 09/27/23 00:50 09/27/23 00:40 09/27/23 00:30 09/27/23 00:30 09/27/23 00:20 09/27/23 00:10 09/27/23 00:00 09/26/23 23:50 Laboratory Results 09/27/23 08:37 09/27/23 08:37 Serum osmolality 268 Urine osmolality 360 Random urine sodium 79 Diagnostic Findings cxr today 1. Unchanged left pleural effusion with left basilar consolidation. 2. Please refer to yesterday's chest CT for further discussion of the mass lesions within the left hemithorax. 3. 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 CT chest w/ con Thyroid: Imaged portions of the thyroid gland are normal in size and attenuation. Thoracic aorta: There is atherosclerotic calcification of the thoracic aorta, which is normal in caliber and demonstrates standard 3-vessel arch anatomy. No dissection is seen. Pulmonary vasculature: The pulmonary trunk is normal in caliber. There are no filling defects identified in the central pulmonary vessels to indicate pulmonary embolus. Note that this examination was not protocoled for evaluation of the pulmonary arteries. Heart: The heart is enlarged noting a small pericardial effusion. There are coronary artery calcifications. Lungs and pleural spaces: There is moderate emphysema. There is a large heterogeneously enhancing mass lesion in the left upper lung. This extends from the left hilar region to the apex, and measures approximately 11.5 x 9 x 7 cm in aggregate dimension. There is extrapleural extension of this mass lesion at the apex seen on image #22. This erodes the adjacent first and second ribs. The mass lesion encases and occludes the left upper lobe bronchovascular structures. The lesion also invades the mediastinum. There is a moderate left pleural effusion with left lower lobe consolidation. Patchy airspace consolidation is also seen in the lingula. Fibrotic changes noted at the right apex. There is linear scarring/atelectasis at the right lung base. No right pleural effusion is identified. Mediastinum: An AP window geoff aggregate on image #89 measures approximately 3.4 x 1.6 cm. A subcarinal node measures 1.4 cm in short axis. Fariha: The left hilum is obscured by a large mass lesion. No right hilar adenopathy is seen. Axillae: There is bulky left axillary lymphadenopathy. A geoff aggregate on image #76 measures approximately 7.5 x 3.5 cm. No right axillary lymphadenopathy seen. Lower neck: There is pathologic left supraclavicular lymphadenopathy. A node on image #27 measures 3.4 x 2.2 cm. Upper abdomen: A 3.1 cm cyst is partially visualized in the left kidney. Partially visualized abdominal viscera is otherwise grossly unremarkable. No adrenal lesion is seen. Skeletal structures: The skeletal structures are osteopenic. There are osteolytic lesions within the bodies of T2 and T3 with corresponding pathologic fractures. There is associated hyperkyphosis of the upper thoracic spine. There is epidural extension of tumor at both levels which interfaces the ventral subarachnoid space and contributes to at least mild central canal stenosis. Soft tissues: There is body wall edema. IMPRESSION: 1. Cardiomegaly and emphysema. 2. A large mass lesion is again seen in the left upper lung. This has increased in size from 06/28/2023, and there is extrapleural extension at the apex, invasion of the mediastinum/left hilum, and erosion of the left posterior first and second ribs. 3. There are osteolytic lesions within the bodies of T2 and T3 with pathologic compression fractures. There is epidural extension of tumor at these levels with effacement of the ventral subarachnoid space and at least mild central canal stenosis. Follow-up with radiation oncology is recommended. 4. Bulky left supraclavicular and axillary lymphadenopathy has progressed from previous and is consistent with metastatic disease. 5. Mediastinal adenopathy has also increased from previous. 6. There is a moderate left pleural effusion, which has significantly increased from previous. There is consolidation of the left lower lung and patchy airspace opacities in the lingula. Correlate clinically for evidence of pneumonia/aspiration pneumonitis. 7. The right lung appears clear. 8. Additional findings as above.
--- NOTE | 2023-09-27 12:35 | Hospitalist Progress Note ---
Date of Service September 27, 2023 Assessment & Plan (1) Acute hypoxic respiratory failure: (2) Non-small cell cancer of left lung: (3) Pleural effusion, left: (4) Pneumonia: (5) Severe malnutrition: (6) Atrial fibrillation: Plan per previous attending notes with addendum: This is a 70-year-old female who has significant past medical history of non- small cell lung cancer of left upper lobe followed by Dr. Bray, hyponatremia, history of bilateral PE, atrial fibrillation anticoagulated with Eliquis, severe protein calorie malnutrition who presents to ED secondary to worsening shortness of breath x 2 weeks. Acute hypoxic respiratory failure Non-small cell cancer of left lung Left pleural effusion, concern for malignant effusion Possible left basilar pneumonia Possible sepsis - pt meets SIRS criteria with tachycardia and leukocytosis Admit to telemetry Empirically treat with IV Zosyn, doxycycline Obtain MRSA swab Supplemental oxygen as needed, pt most recently discharged on 2L As needed nebulizer, incentive spirometry obtain CT chest given extensive findings on XR Consult pulm to eval for possible thoracentesis last dose of eliquis was 0900 on 09/26, will hold until eval by pulm pt follows with Dr. Bray, currently unsure if wants to continue chemotherapy as she did not tolerate first round well consider inpt palliative consult ' 09/27 Thoracentesis planned for tomorrow Currently on Lasix for hyponatremia Also on Zosyn and doxycycline Also on Decadron 6 mg We will discuss with pulmonary service regarding remdesivir Acute worsening of Chronic hyponatremia 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 [facility] pt has been receiving IV hydration twice last week via heme/onc she has also stopped her lasix 2 weeks ago, but remains on NACL tabs obtain urine osm, urine na, serum osm will place on IV NS 75cc/hr and IV lasix 30mg q8h - reviewed nephrology prior progress notes/consultation for tx 09/18 On Lasix IV and NSS Sodium level 129 from 126 Nephrology consult Cancer related pain pt with chest pain she is following palliative through [facility] has fentanyl patch in place, day 3 but has no further refills, this will be removed palliative has pt on MS contin 15mg big, oxy IR 10mg q4hr prn pain will continue, bowel regimen as needed Hx of PE Eliquis on hold secondary to possible thoracentesis tomorrow Heparin drip deferred as patient is having some hemoptysis and hematochezia Monitor closely PAF chronic, stable continue metoprolol Eliquis on hold Severe protein calorie malnutrition 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 Patient's daughter Erin at the bedside assisting with obtaining history Patient seen sitting up in bed, comfortable, on 2 L of oxygen which is her baseline Patient states she feels "terrible", feels about the same as yesterday Has chronic pain secondary to cancer Breathing is okay, has occasional productive cough No fevers or chills Reports occasional minimal hemoptysis, and drops of blood during her bowel move ment this morning No abdominal pain, nausea or vomiting No other new symptoms Review of Systems Review of Systems: all noted and negative except for above Physical Exam Physical Exam: General- oriented x 3, not in distress, speaks in sentences with no effort or accessory muscle use Eyes- anicteric Neck- no JVD Lungs-decreased breath sounds on the left, clear on the right Heart- normal rate, regular rhythm; no murmurs Abdomen- normal bowel sounds, nondistended, soft, nontender Extremities- no pretibial edema, no calf tenderness Neuro- alert, oriented x 3; no gross focal neurologic deficits Skin- warm & dry Results & Data Results & Data Vital Signs (Past 12 Hours) Vital Signs Pulse Pulse Resp BP BP Pulse Ox O2 Del Method 09/27/23 11:48 68 18 114/74 100 Nasal Cannula 09/27/23 08:51 76 20 113/72 95 Nasal Cannula 09/27/23 08:21 71 16 100 09/27/23 08:20 71 17 100 09/27/23 08:20 108/67 09/27/23 08:10 109/65 09/27/23 08:10 107 H 15 09/27/23 08:04 105/75 09/27/23 08:04 108 H 17 100 09/27/23 08:01 106/77 09/27/23 08:01 107 H 14 100 09/27/23 07:58 112 H 24 99 09/27/23 07:58 93/74 L 09/27/23 07:57 113 H 27 H 99 09/27/23 07:54 128 H 103/82 09/27/23 07:45 155 H 09/27/23 06:30 78 17 100 09/27/23 06:20 81 30 H 100 09/27/23 06:10 83 22 100 09/27/23 06:00 140/84 09/27/23 06:00 83 14 100 09/27/23 05:50 81 16 99 09/27/23 05:40 79 13 100 09/27/23 05:30 79 19 99 09/27/23 05:20 84 21 99 09/27/23 05:10 78 18 99 09/27/23 05:00 127/75 09/27/23 05:00 78 20 99 09/27/23 04:50 80 14 99 09/27/23 04:40 80 16 99 09/27/23 04:30 81 13 99 09/27/23 04:26 80 09/27/23 04:20 83 18 99 09/27/23 04:10 85 19 100 09/27/23 04:00 88 22 98 09/27/23 04:00 112/65 09/27/23 03:50 85 29 H 98 09/27/23 03:40 80 27 H 99 09/27/23 03:30 83 22 98 09/27/23 03:20 86 15 98 09/27/23 03:18 129/71 09/27/23 03:18 86 26 H 99 09/27/23 03:10 87 15 97 09/27/23 03:00 85 23 97 09/27/23 02:50 84 29 H 97 09/27/23 02:40 86 19 97 09/27/23 02:30 87 22 96 09/27/23 02:20 85 19 97 09/27/23 02:10 87 12 97 09/27/23 02:00 104 H 16 92 09/27/23 01:50 94 H 15 96 09/27/23 01:40 88 24 96 09/27/23 01:30 88 25 H 97 09/27/23 01:30 108/79 09/27/23 01:30 87 16 108/79 97 Nasal Cannula 09/27/23 01:20 90 22 97 09/27/23 01:10 89 21 96 09/27/23 01:00 128/72 09/27/23 01:00 128/72 09/27/23 01:00 91 H 24 97 09/27/23 00:50 88 18 97 09/27/23 00:40 90 16 97 09/27/23 00:30 127/75 09/27/23 00:30 91 H 26 H 96 O2 Flow Rate 09/27/23 11:48 2 09/27/23 08:51 2 09/27/23 08:21 09/27/23 08:20 09/27/23 08:20 09/27/23 08:10 09/27/23 08:10 09/27/23 08:04 09/27/23 08:04 09/27/23 08:01 09/27/23 08:01 09/27/23 07:58 09/27/23 07:58 09/27/23 07:57 09/27/23 07:54 09/27/23 07:45 09/27/23 06:30 09/27/23 06:20 09/27/23 06:10 09/27/23 06:00 09/27/23 06:00 09/27/23 05:50 09/27/23 05:40 09/27/23 05:30 09/27/23 05:20 09/27/23 05:10 09/27/23 05:00 09/27/23 05:00 09/27/23 04:50 09/27/23 04:40 09/27/23 04:30 09/27/23 04:26 09/27/23 04:20 09/27/23 04:10 09/27/23 04:00 09/27/23 04:00 09/27/23 03:50 09/27/23 03:40 09/27/23 03:30 09/27/23 03:20 09/27/23 03:18 09/27/23 03:18 09/27/23 03:10 09/27/23 03:00 09/27/23 02:50 09/27/23 02:40 09/27/23 02:30 09/27/23 02:20 09/27/23 02:10 09/27/23 02:00 09/27/23 01:50 09/27/23 01:40 09/27/23 01:30 09/27/23 01:30 09/27/23 01:30 2 09/27/23 01:20 09/27/23 01:10 09/27/23 01:00 09/27/23 01:00 09/27/23 01:00 09/27/23 00:50 09/27/23 00:40 09/27/23 00:30 09/27/23 00:30 all noted and reviewed including below
--- NOTE | 2023-09-27 15:09 | Pulmonology Progress Note ---
Date of Service September 27, 2023 Assessment & Plan (1) Shortness of breath: (2) Pleural effusion: (3) Atrial fibrillation: (4) Pneumonia: (5) Non-small cell cancer of left lung: Plan CT chest 09/26/2023 personally reviewed: Centrilobular emphysema appreciated bilaterally Left perihilar mass groundglass opacities Right lower lobe linear atelectasis Left upper lobe and left perihilar mass Moderate left-sided pleural effusion --Acute respiratory failure with hypoxia Multifactorial Left-sided pleural effusion Underlying small cell lung cancer Procalcitonin 0.25 --Pleural effusion Moderate left-sided New compared to CT chest in 05/2023 Probability of it being malignant is high --Metastatic non small cell cancer of the lung Was on Tecentriq, carboplatin, etoposide - last cycle 07/24-07/26 Patient was not able to tolerate first-line of chemotherapy -- A-fib On apixaban Last dose 09/26/2023 9 AM Plan: Continue to hold apixaban. It needs to be held for at least 48 hours before doing any invasive procedure. Will tentatively plan to do procedure on , 09/28/2023 in the afternoon. Dexamethasone 6 mg on a daily basis for COVID-19 Continue with antibiotics Patient complaining of diffuse pain. Pain management as per primary team for her underlying cancer Case was discussed with Dr. Good Please note the above document was generated using voice recognition software. It may contain grammatical, syntax or spelling errors.Any formal questions or concerns about the content, text or information contained within the body of this dictation should be directly addressed to the provider for clarification. Admission and Anticipated Discharge Date Admission Date: September 26, 2023 Subjective Patient seen and examined at bedside. No acute distress, no adverse events overnight She has been complaining of pain in the back as as well as upper chest which has been going on for a long time. She says she is feeling cold. Overall generalized lethargy Denies any nausea or vomiting Poor appetite Shortness of breath is stable. She was saturating 100% on 2 L nasal cannula at rest. Has been afebrile Review of Systems 2 Review of Systems: All systems reviewed & are unremarkable except as noted in Subjective Physical Exam 2 Physical Exam: Constitutional: No acute distress, frail-appearing HEENT: EOMI, PERRLA Respiratory system: Decreased air entry bilaterally, more decreased on the left side, no wheeze, no rhonchi, mild crackles bilateral lower lobes CVS: S1-S2 positive, no murmurs or gallops Abdomen: Soft, nontender, nondistended, positive bowel sounds x4 Extremities: +2 pulses bilaterally radialis/ dorsalis pedis, no cyanosis, no edema Neuro: Awake alert oriented x3 Psych: Normal mood and affect G/U: No Morse Skin: no rashes, warm and dry Lymphatic: no cervical or axillary lymphadenopathy Results & Data Results & Data Vital Signs (Past 12 Hours) Vital Signs Pulse Pulse Resp BP BP Pulse Ox O2 Del Method 09/27/23 11:48 68 18 114/74 100 Nasal Cannula 09/27/23 08:51 76 20 113/72 95 Nasal Cannula 09/27/23 08:21 71 16 100 09/27/23 08:20 71 17 100 09/27/23 08:20 108/67 09/27/23 08:10 109/65 09/27/23 08:10 107 H 15 09/27/23 08:04 105/75 09/27/23 08:04 108 H 17 100 09/27/23 08:01 106/77 09/27/23 08:01 107 H 14 100 09/27/23 07:58 112 H 24 99 09/27/23 07:58 93/74 L 09/27/23 07:57 113 H 27 H 99 09/27/23 07:54 128 H 103/82 09/27/23 07:45 155 H 09/27/23 06:30 78 17 100 09/27/23 06:20 81 30 H 100 09/27/23 06:10 83 22 100 09/27/23 06:00 140/84 09/27/23 06:00 83 14 100 09/27/23 05:50 81 16 99 09/27/23 05:40 79 13 100 09/27/23 05:30 79 19 99 09/27/23 05:20 84 21 99 09/27/23 05:10 78 18 99 09/27/23 05:00 127/75 09/27/23 05:00 78 20 99 09/27/23 04:50 80 14 99 09/27/23 04:40 80 16 99 09/27/23 04:30 81 13 99 09/27/23 04:26 80 09/27/23 04:20 83 18 99 09/27/23 04:10 85 19 100 09/27/23 04:00 88 22 98 09/27/23 04:00 112/65 09/27/23 03:50 85 29 H 98 09/27/23 03:40 80 27 H 99 09/27/23 03:30 83 22 98 09/27/23 03:20 86 15 98 09/27/23 03:18 129/71 09/27/23 03:18 86 26 H 99 09/27/23 03:10 87 15 97 O2 Flow Rate 09/27/23 11:48 2 09/27/23 08:51 2 09/27/23 08:21 09/27/23 08:20 09/27/23 08:20 09/27/23 08:10 09/27/23 08:10 09/27/23 08:04 09/27/23 08:04 09/27/23 08:01 09/27/23 08:01 09/27/23 07:58 09/27/23 07:58 09/27/23 07:57 09/27/23 07:54 09/27/23 07:45 09/27/23 06:30 09/27/23 06:20 09/27/23 06:10 09/27/23 06:00 09/27/23 06:00 09/27/23 05:50 09/27/23 05:40 09/27/23 05:30 09/27/23 05:20 09/27/23 05:10 09/27/23 05:00 09/27/23 05:00 09/27/23 04:50 09/27/23 04:40 09/27/23 04:30 09/27/23 04:26 09/27/23 04:20 09/27/23 04:10 09/27/23 04:00 09/27/23 04:00 09/27/23 03:50 09/27/23 03:40 09/27/23 03:30 09/27/23 03:20 09/27/23 03:18 09/27/23 03:18 09/27/23 03:10 Laboratory Results 09/27/23 08:37 09/27/23 08:37 PG Care Time/CCT Total # of Minutes Spent Total Time Spent with Patient: Total time spent is greater than 50% in coordination of care (as documented) at patient's floor/unit and/or counseling patient: Coding Level of Care Code 88670 SUB INP/OBS CARE 2/35MIN Diagnoses Shortness of breath R06.02 Pleural effusion J90 Atrial fibrillation I48.91 Pneumonia J18.9 Non-small cell cancer of left lung C34.92
[2023-09-27 18:35] LABS: BUN Creatinine Ratio 17.3 (10-20); Calcium 8.6 mg/dl (8.6-10.3); Creatinine Clr Calc Pharmacy 47.2 ml/min; Est GFR (African American) 88.5 ml/min; Est GFR (Non-African American) 76.3 ml/min; Potassium 3.7 mmol/L (3.5-5.1)
[2023-09-27] MEDS ORDERED: REMDESIVIR 200 MG in SODIUM CHLORIDE 0.9% 210 ML IV ONE (19:30)
[2023-09-28] MEDS: PIPERACILLIN/TAZOBACTAM 4.5 GM in DEXTROSE 5% MINI-B 100 ML IV SCH ×3 (05:22→23:10)
[2023-09-28] MEDS: FUROSEMIDE INJ 20 MG/2 ML VIAL IV SCH ×2 (05:22→17:22)
[2023-09-28 06:13] LABS: Basophils # (auto) 0.03 K/uL (0.00-0.20); Basophils % (auto) 0.2 %; Hematocrit (blood only) 27.1 % (37.0-47.0); Hemoglobin 8.7 g/dl (12.0-16.0); Immature Granulocytes # (auto) 0.16 K/uL (0.01-0.20); Immature Granulocytes % (auto) 0.9 %; Lymphocytes # (auto) 1.07 K/uL (1.20-3.40); Mean Corpuscular Hemoglobin 25.7 pg (25.0-34.0); Mean Corpuscular Hgb Conc 32.1 g/dL (32.0-36.0); Mean Corpuscular Volume 80.2 fL (80.0-100.0); Mean Platelet Volume 9.1 fL (9.4-12.4); Monocytes # (auto) 0.97 K/uL (0.11-0.59); Monocytes % (auto) 5.4 %; Neutrophils # (auto) 15.61 K/uL (1.40-6.50); Neutrophils % (auto) 87.5 %; Platelet Count 511 K/uL (130-400); RDW Coefficient of Variation 17.8 % (11.5-14.5); RDW Standard Deviation 51.9 fL (36.4-46.3); Red Blood Count 3.38 M/uL (4.20-5.40); White Blood Count 17.84 K/ul (4.8-10.8)
[2023-09-28 06:29] LABS: Albumin Globulin Ratio 0.7 (0.9-2); Albumin Level 2.6 gm/dl (3.4-5.0); BUN Creatinine Ratio 20.5 (10-20); Bilirubin,Total 0.4 mg/dl (0.2-1.0); Calcium 8.6 mg/dl (8.6-10.3); Creatinine Clr Calc Pharmacy 42.3 ml/min; Est GFR (African American) 84.4 ml/min; Est GFR (Non-African American) 72.8 ml/min; Magnesium 1.7 mg/dl (1.7-2.4); Potassium 3.4 mmol/L (3.5-5.1); Total Protein 6.6 gm/dl (6.0-8.3)
[2023-09-28] MEDS: dexAMETHasone 6 MG in SYRINGE 0 ML IV SCH (08:14)
[2023-09-28] MEDS: MoRPHine SULFATE CR 15 MG TABCR PO SCH ×2 (08:14→21:59)
[2023-09-28] MEDS: SODIUM CHLORIDE 0.9% 1,000 ML IV SCH (08:15)
[2023-09-28] MEDS: SODIUM CHLORIDE 1 GM TABLET PO SCH ×2 (08:15→22:01)
[2023-09-28] MEDS: DOXYCYCLINE HYCLATE 100 MG CAP PO SCH ×2 (08:15→22:00)
[2023-09-28] MEDS: METOPROLOL SUCC 50MG EXT REL TAB PO SCH (08:15)
[2023-09-28] MEDS: POTASSIUM CHLORIDE CRTAB 20 MEQ TABCR PO SCH ×3 (08:15→21:59)
[2023-09-28] MEDS: SACCHAROMYCES BOULARDII 250 MG CAP PO SCH (08:15)
[2023-09-28] MEDS: MAGNESIUM OXIDE 400 MG TAB PO SCH ×2 (08:15→21:59)
--- NOTE | 2023-09-28 11:05 | Pulmonology Progress Note ---
Date of Service September 28, 2023 Assessment & Plan (1) Shortness of breath: (2) Pleural effusion: (3) Atrial fibrillation: (4) Pneumonia: (5) Non-small cell cancer of left lung: Plan CT chest 09/26/2023 personally reviewed: Centrilobular emphysema appreciated bilaterally Left perihilar mass groundglass opacities Right lower lobe linear atelectasis Left upper lobe and left perihilar mass Moderate left-sided pleural effusion --Acute respiratory failure with hypoxia Multifactorial Left-sided pleural effusion Underlying small cell lung cancer Procalcitonin 0.25 --Pleural effusion Moderate left-sided New compared to CT chest in 05/2023 Probability of it being malignant is high --Metastatic non small cell cancer of the lung Was on Tecentriq, carboplatin, etoposide - last cycle 07/24-07/26 Patient was not able to tolerate first-line of chemotherapy -- A-fib On apixaban Last dose 09/26/2023 9 AM Plan: Plan for thoracentesis later today Risk and benefit of the procedure explained to the patient in depth Consent signed, witnessed and put in the chart Patient's daughter Erin was also called and made aware regarding the procedure Dexamethasone 6 mg on a daily basis for COVID-19 Continue with antibiotics Case was discussed with Dr. Good Please note the above document was generated using voice recognition software. It may contain grammatical, syntax or spelling errors.Any formal questions or concerns about the content, text or information contained within the body of this dictation should be directly addressed to the provider for clarification. Admission and Anticipated Discharge Date Admission Date: September 26, 2023 Subjective Patient seen and examined at bedside. No acute distress, no adverse events overnight She was saturating 98% on 2 L nasal cannula at rest Still complaining of generalized body pain and malaise. No nausea or vomiting Appetite is poor No headache, no blurry vision Review of Systems 2 Review of Systems: All systems reviewed & are unremarkable except as noted in Subjective Physical Exam 2 Physical Exam: Constitutional: No acute distress, frail-appearing HEENT: EOMI, PERRLA Respiratory system: Decreased air entry bilaterally, more decreased on the left side, no wheeze, no rhonchi, mild crackles bilateral lower lobes CVS: S1-S2 positive, no murmurs or gallops Abdomen: Soft, nontender, nondistended, positive bowel sounds x4 Extremities: +2 pulses bilaterally radialis/ dorsalis pedis, no cyanosis, no edema Neuro: Awake alert oriented x3 Psych: Normal mood and affect G/U: No Morse Skin: no rashes, warm and dry Lymphatic: no cervical or axillary lymphadenopathy Results & Data Results & Data Vital Signs (Past 12 Hours) Vital Signs Temp Pulse Pulse Pulse Resp BP BP 09/28/23 07:33 62 09/28/23 06:25 36.3 C L 62 18 143/73 H 09/28/23 03:14 36.3 C L 59 L 16 128/73 09/28/23 00:53 36.4 C L 74 16 129/63 09/28/23 00:05 09/27/23 23:58 71 Pulse Ox O2 Del Method O2 Flow Rate 09/28/23 07:33 09/28/23 06:25 98 Nasal Cannula 2 09/28/23 03:14 98 Nasal Cannula 2 09/28/23 00:53 93 Nasal Cannula 2 09/28/23 00:05 Nasal Cannula 2 09/27/23 23:58 Laboratory Results 09/28/23 05:25 09/28/23 05:25 PG Care Time/CCT Total # of Minutes Spent Total Time Spent with Patient: Total time spent is greater than 50% in coordination of care (as documented) at patient's floor/unit and/or counseling patient: Coding Level of Care Code 50651 SUB INP/OBS CARE 3/50MIN Diagnoses Shortness of breath R06.02 Pleural effusion J90 Atrial fibrillation I48.91 Pneumonia J18.9 Non-small cell cancer of left lung C34.92
--- NOTE | 2023-09-28 11:30 | Nephrology Progress Note ---
Date of Service September 28, 2023 Assessment & Plan (1) SIADH (syndrome of inappropriate ADH production): Plan: SIADH in the setting chronic protein calorie malnutrition and low solute diet. would not typically expect NSCLC to cause SIADH. 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 for protein supplement ordered Admission and Anticipated Discharge Date Admission Date: September 26, 2023 Subjective for lung procedure today; no particular c/o pain or worse sob when I saw her; ongoing minimal po intake Review of Systems 2 Review of Systems: All systems reviewed & are unremarkable except as noted in Subjective Physical Exam 2 Constitutional: well developed, + cachectic, + frail appearing and cooperative; no acute distress Eyes: EOM intact bilaterally ENMT: Ears: no external ear abnormality Nose: no external nose abnormality Mouth: + dry oral mucous membranes Neck: no nuchal rigidity Respiratory: normal respiratory effort Auscultation: + diminished lung sounds (barrie L posterior field) Cardiovascular: Rate/Rhythm: regular rate and regular rhythm Extremities: n o edema Gastrointestinal (Abdomen): Inspection/Auscultation: normal bowel sounds P ercussion/Palpation: abdomen soft; abdomen nontender Musculoskeletal: Extremities: strength 5/5 throughout Skin: no rashes, warm and dry Psychiatric: Orientation: alert, oriented to person and oriented to place A ffect: + anxious affect Results & Data Vital Signs (Past 12 Hours) Vital Signs Temp Pulse Pulse Pulse Resp BP BP 09/28/23 07:33 62 09/28/23 06:25 36.3 C L 62 18 143/73 H 09/28/23 03:14 36.3 C L 59 L 16 128/73 09/28/23 00:53 36.4 C L 74 16 129/63 09/28/23 00:05 09/27/23 23:58 71 Pulse Ox O2 Del Method O2 Flow Rate 09/28/23 07:33 09/28/23 06:25 98 Nasal Cannula 2 09/28/23 03:14 98 Nasal Cannula 2 09/28/23 00:53 93 Nasal Cannula 2 09/28/23 00:05 Nasal Cannula 2 09/27/23 23:58 Laboratory Results 09/28/23 05:25 09/28/23 05:25
--- NOTE | 2023-09-28 14:07 | Electrocardiogram Report ---
Test Reason : Blood Pressure : / mmHG Vent. Rate : 081 BPM Atrial Rate : 081 BPM P-R Int : 142 ms QRS Dur : 092 ms QT Int : 410 ms P-R-T Axes : 066 004 066 degrees QTc Int : 476 ms Sinus rhythm with Premature atrial complexes Poor R wave progression, consider anterior OR vs. lead placement vs. LVH Abnormal ECG When compared with ECG of 27-SEP-2023 07:46, Sinus rhythm has replaced Atrial flutter Vent. rate has decreased BY 71 BPM QRS axis Shifted left Confirmed by Brad Rosas ([id number]) on 09/28/2023 2:07:17 PM Referred By: REFERRED SELF Confirmed By:Koko Rosas
[2023-09-28] MEDS: oxyCODONE HCL IR 5 MG TAB (IMMEDIATE RELEASE) PO PRN (15:01)
--- NOTE | 2023-09-28 15:10 | Procedure Note ---
Procedure Note Date of Service September 28, 2023 Note Procedure: Diagnostic therapeutic ultrasound-guided catheter thoracentesis Licensed Optician: Dr. Leeroy Hernandez Indication: Left pleural effusion Consent: Signed by patient and verified with timeout prior to procedure Anesthesia: 1% lidocaine without epinephrine local. Procedure: Consent was verified and timeout performed. Appropriate imaging studies were reviewed prior to the procedure. Patient was placed in a seated position and limited thoracic ultrasound was performed of the left chest. See separate imaging. Appropriate site above the diaphragm for thoracentesis was selected. The skin was prepped and draped in normal sterile fashion. Lidocaine was used for local analgesia. Fluid was aspirated via the finder needle. A small skin bonny was made with the scalpel and the catheter over the needle apparatus was advanced over the rib into the pleural space. Using the syringe one-way valve system, a total of 650 mL's of cloudy serous fluid was removed. The catheter was removed and observed to be intact. A sterile dressing was applied. Post procedure chest x-ray was ordered. Fluid was sent for labs, culture and cytology. Complications: None Blood loss: Less than 1 cc Coding CPT Codes Pulmonary/Thoracic - Pulmonary and Thoracic: 93587 Thoracentesis w imaging ([id number]) [facility] [place] Procedure Codes (Charges) Pulmonary/Thoracic Procedure 1: Pulmonary and Thoracic: 78233 Thoracentesis w imaging
--- NOTE | 2023-09-28 15:50 | XRay Report ---
XR chest 1V portable CLINICAL HISTORY: S/P Thoracentesis TECHNIQUE: Single frontal radiograph of the chest was obtained. Comparison: Comparison is made to chest radiograph 09/27/2023 FINDINGS: No lines and tubes are seen. The cardiomediastinal silhouette is stable. The Left apical mass is agai n seen. No evidence of pneumothorax. No evidence of pleural effusion or pneumothorax. IMPRESSION: No evidence of pneumothorax status post biopsy. ACT 112: Negative or not required by law. Electronically signed by: Nathan Easley M.D. 09/28/2023 3:49 PM
[2023-09-28 16:00] LABS: Total Protein Pleural Fluid 4.1 gm/dl
[2023-09-28 16:55] LABS: Appearance Pleural Fluid Cloudy; Color Pleural Fluid Yellow; Lymphocytes, Fluid 3 %; Mono,Macrophage,Mesothelial 11 %; Neutrophils, Fluid 86 %; RBC Pleural Fluid Auto 5000 /uL; Source Pleural Fluid Left Lung; WBC Pleural Fluid Auto 4267 /uL
--- NOTE | 2023-09-28 17:04 | Hospitalist Progress Note ---
Date of Service September 28, 2023 Assessment & Plan (1) Acute hypoxic respiratory failure: (2) Non-small cell cancer of left lung: (3) Pleural effusion, left: (4) Pneumonia: (5) Severe malnutrition: (6) Atrial fibrillation: Plan per previous attending notes with addendum: This is a 70-year-old female who has significant past medical history of non- small cell lung cancer of left upper lobe followed by Dr. Bray, hyponatremia, history of bilateral PE, atrial fibrillation anticoagulated with Eliquis, severe protein calorie malnutrition who presents to ED secondary to worsening shortness of breath x 2 weeks. Acute hypoxic respiratory failure Non-small cell cancer of left lung Left pleural effusion, concern for malignant effusion Possible left basilar pneumonia Possible sepsis - pt meets SIRS criteria with tachycardia and leukocytosis Admit to telemetry Empirically treat with IV Zosyn, doxycycline Obtain MRSA swab Supplemental oxygen as needed, pt most recently discharged on 2L As needed nebulizer, incentive spirometry obtain CT chest given extensive findings on XR Consult pulm to eval for possible thoracentesis last dose of eliquis was 0900 on 09/26, will hold until eval by pulm pt follows with Dr. Bray, currently unsure if wants to continue chemotherapy as she did not tolerate first round well consider inpt palliative consult 09/28 Remains on 2 L of oxygen Status post thoracentesis: 650 cc of fluid Cultures pending Currently on Lasix for hyponatremia Also on Zosyn and doxycycline Also on Decadron 6 mg plus remdesivir Labs okay Acute worsening of Chronic hyponatremia 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 NCSLC pt has been receiving IV hydration twice last week via heme/onc she has also stopped her lasix 2 weeks ago, but remains on NACL tabs obtain urine osm, urine na, serum osm will place on IV NS 75cc/hr and IV lasix 30mg q8h - reviewed nephrology prior progress notes/consultation for tx 09/28 On Lasix IV Sodium chloride 1 g twice daily Sodium level 131 Nephrology consulted Cancer related pain pt with chest pain she is following palliative through [facility] has fentanyl patch in place, day 3 but has no further refills, this will be removed palliative has pt on MS contin 15mg big, oxy IR 10mg q4hr prn pain will continue, bowel regimen as needed Hx of PE Eliquis on hold secondary to possible thoracentesis tomorrow Heparin drip deferred as patient is having some hemoptysis and hematochezia -Resume Eliquis tomorrow morning if okay with pulmonary service PAF chronic, stable continue metoprolol Eliquis on hold-likely resume tomorrow morning Severe protein calorie malnutrition extension course coordinator consulted DVT ppx: Eliquis on hold resume when able DNR/DNI PCP: Denia Dispo: pending lives with daughter at home Admission and Anticipated Discharge Date Admission Date: September 26, 2023 Subjective Follow-up of pleural effusion, etc. Seen resting in bed, comfortable, in distress States her breathing is fine No hemoptysis, no chest pain Minimal cough No abdominal pain, melena or hematochezia, diarrhea No other new symptoms Review of Systems Review of Systems: all noted and negative except for above Physical Exam Physical Exam: General- oriented x 3, not in distress, speaks in sentences with no effort or accessory muscle use Eyes- anicteric Neck- no JVD Lungs-decreased breath sounds on the left, clear on the right Heart- normal rate, regular rhythm; no murmurs Abdomen- normal bowel sounds, nondistended, soft, nontender Extremities- no pretibial edema, no calf tenderness Neuro- alert, oriented x 3; no gross focal neurologic deficits Skin- warm & dry Results & Data Results & Data Vital Signs (Past 12 Hours) Vital Signs Temp Pulse Pulse Resp BP Pulse Ox O2 Del Method 09/28/23 16:57 63 09/28/23 16:05 36.2 C L 63 14 121/77 100 Nasal Cannula 09/28/23 07:33 62 09/28/23 07:30 Nasal Cannula 09/28/23 06:25 36.3 C L 62 18 143/73 H 98 Nasal Cannula O2 Flow Rate 09/28/23 16:57 09/28/23 16:05 2 09/28/23 07:33 09/28/23 07:30 2 09/28/23 06:25 2 all noted and reviewed including below
[2023-09-28 17:10] LABS: Albumin Level 2.7 gm/dl (3.4-5.0); Bilirubin,Total 0.4 mg/dl (0.2-1.0); Total Protein 6.6 gm/dl (6.0-8.3)
[2023-09-28] MEDS: REMDESIVIR 100 MG in SODIUM CHLORIDE 0.9% 230 ML IV SCH (21:50)
[2023-09-29] MEDS: PIPERACILLIN/TAZOBACTAM 4.5 GM in DEXTROSE 5% MINI-B 100 ML IV SCH ×3 (05:24→22:46)
[2023-09-29 06:42] LABS: Basophils # (auto) 0.04 K/uL (0.00-0.20); Basophils % (auto) 0.2 %; Hematocrit (blood only) 29.3 % (37.0-47.0); Hemoglobin 9.5 g/dl (12.0-16.0); Immature Granulocytes # (auto) 0.19 K/uL (0.01-0.20); Immature Granulocytes % (auto) 0.9 %; Lymphocytes # (auto) 1.32 K/uL (1.20-3.40); Lymphocytes % (auto) 6.6 %; Mean Corpuscular Hemoglobin 26.1 pg (25.0-34.0); Mean Corpuscular Hgb Conc 32.4 g/dL (32.0-36.0); Mean Corpuscular Volume 80.5 fL (80.0-100.0); Mean Platelet Volume 9.2 fL (9.4-12.4); Monocytes # (auto) 1.24 K/uL (0.11-0.59); Monocytes % (auto) 6.2 %; Neutrophils # (auto) 17.32 K/uL (1.40-6.50); Neutrophils % (auto) 86.1 %; Platelet Count 570 K/uL (130-400); RDW Coefficient of Variation 17.9 % (11.5-14.5); RDW Standard Deviation 52.5 fL (36.4-46.3); Red Blood Count 3.64 M/uL (4.20-5.40); White Blood Count 20.11 K/ul (4.8-10.8)
[2023-09-29] MEDS: dexAMETHasone 6 MG in SYRINGE 0 ML IV SCH (08:24)
[2023-09-29] MEDS: FUROSEMIDE INJ 20 MG/2 ML VIAL IV SCH ×2 (08:24→16:05)
[2023-09-29] MEDS: METOPROLOL SUCC 50MG EXT REL TAB PO SCH (08:25)
[2023-09-29] MEDS: SODIUM CHLORIDE 1 GM TABLET PO SCH ×2 (08:25→22:47)
[2023-09-29] MEDS: MAGNESIUM OXIDE 400 MG TAB PO SCH ×2 (08:25→22:45)
[2023-09-29] MEDS: POTASSIUM CHLORIDE CRTAB 20 MEQ TABCR PO SCH ×4 (08:25→23:03)
[2023-09-29] MEDS: SACCHAROMYCES BOULARDII 250 MG CAP PO SCH (08:25)
[2023-09-29] MEDS: DOXYCYCLINE HYCLATE 100 MG CAP PO SCH ×2 (08:25→22:47)
[2023-09-29] MEDS: MoRPHine SULFATE CR 15 MG TABCR PO SCH ×2 (08:36→22:45)
--- NOTE | 2023-09-29 08:49 | Pulmonology Progress Note ---
Date of Service September 29, 2023 Assessment & Plan (1) Shortness of breath: (2) Pleural effusion: (3) Atrial fibrillation: (4) Pneumonia: (5) Non-small cell cancer of left lung: Plan CT chest 09/26/2023 personally reviewed: Centrilobular emphysema appreciated bilaterally Left perihilar mass groundglass opacities Right lower lobe linear atelectasis Left upper lobe and left perihilar mass Moderate left-sided pleural effusion --Acute respiratory failure with hypoxia Multifactorial Left-sided pleural effusion Underlying small cell lung cancer Procalcitonin 0.25 --Pleural effusion Moderate left-sided New compared to CT chest in 05/2023 Probability of it being malignant is high Status post left-sided thoracentesis 09/28/2023, 650 amount of pleural fluid removed, exudative, neutrophilic Pleural: LDH 172, protein 4.1, glucose 105, pH 7.49 Serum: LDH 279, protein 6.6 --Metastatic non small cell cancer of the lung Was on Tecentriq, carboplatin, etoposide - last cycle 07/24-07/26 Patient was not able to tolerate first-line of chemotherapy -- A-fib On apixaban Last dose 09/26/2023 9 AM Plan: Clinically doing better s/p thoracentesis, follow-up cytology Dexamethasone 6 mg on a daily basis for total of 10 days Continue with antibiotics for 5-7 days No further recommendation from pulmonary perspective, will sign off Please call directly with any questions Case was discussed with Dr. Good Please note the above document was generated using voice recognition software. It may contain grammatical, syntax or spelling errors.Any formal questions or concerns about the content, text or information contained within the body of this dictation should be directly addressed to the provider for clarification. Admission and Anticipated Discharge Date Admission Date: September 26, 2023 Subjective Patient seen and examined at bedside. No acute distress, notable symptoms overnight She was saturating well on room air. Denies any headache, no nausea, no vomiting Does complain of still generalized pain. No headache, no blurry vision Review of Systems 2 Review of Systems: All systems reviewed & are unremarkable except as noted in Subjective Physical Exam 2 Physical Exam: Constitutional: No acute distress, frail-appearing HEENT: EOMI, PERRLA Respiratory system: Decreased air entry bilaterally, no wheeze, no rhonchi, mild crackles bilateral lower lobes CVS: S1-S2 positive, no murmurs or gallops Abdomen: Soft, nontender, nondistended, positive bowel sounds x4 Extremities: +2 pulses bilaterally radialis/ dorsalis pedis, no cyanosis, no edema Neuro: Awake alert oriented to self and place Psych: Normal mood and affect G/U: No Morse Skin: no rashes, warm and dry Lymphatic: no cervical or axillary lymphadenopathy Results & Data Results & Data Vital Signs (Past 12 Hours) Vital Signs Temp Pulse Pulse Resp BP BP Pulse Ox 09/29/23 08:08 36.3 C L 64 16 104/66 99 09/29/23 07:24 53 L 09/29/23 04:37 09/29/23 03:49 36.3 C L 57 L 20 123/75 96 09/28/23 23:09 59 L 18 122/73 99 09/28/23 21:58 66 O2 Del Method O2 Flow Rate 09/29/23 08:08 Room Air 09/29/23 07:24 09/29/23 04:37 Nasal Cannula 2 09/29/23 03:49 Room Air 09/28/23 23:09 Nasal Cannula 2 09/28/23 21:58 Laboratory Results 09/29/23 05:31 PG Care Time/CCT Total # of Minutes Spent Total Time Spent with Patient: Total time spent is greater than 50% in coordination of care (as documented) at patient's floor/unit and/or counseling patient: Coding Level of Care Code 80358 SUB INP/OBS CARE 2/35MIN Diagnoses Shortness of breath R06.02 Pleural effusion J90 Atrial fibrillation I48.91 Pneumonia J18.9 Non-small cell cancer of left lung C34.92
[2023-09-29 12:43] LABS: Albumin Globulin Ratio 0.7 (0.9-2); Albumin Level 2.8 gm/dl (3.4-5.0); BUN Creatinine Ratio 29.2 (10-20); Bilirubin,Total 0.3 mg/dl (0.2-1.0); Calcium 9.1 mg/dl (8.6-10.3); Creatinine Clr Calc Pharmacy 37.1 ml/min; Est GFR (African American) 71.9 ml/min; Est GFR (Non-African American) 62.1 ml/min; Globulin 4.2 gm/dl (2.5-4.0); Magnesium 1.8 mg/dl (1.7-2.4); Potassium 4.8 mmol/L (3.5-5.1)
--- NOTE | 2023-09-29 13:45 | Nephrology Progress Note ---
Date of Service September 29, 2023 Assessment & Plan (1) SIADH (syndrome of inappropriate ADH production): Plan: SIADH in the setting chronic protein calorie malnutrition and low solute diet. would not typically expect NSCLC to cause SIADH. -changed IV lasix 40 mg bid17; can change when ready to 80 mg bid 17 lasix -maintain eukalemia > lowered K back to bid 40 mEq -daily bmp -continue salt tabs current dose -continue 1.2L FR -presenting sNa 127 midday 09/26; goal is no more than 136 tomorrow am; I do note that historically we have struggled to get/maintain her above 130 in the hospital will sign off NEPHRO D/C RECS -lasix 80 mg po bid17 -sodium chloride 1 gm bid -potassium chloride 40 mEq bid -bmp at PCP f/u visit -continue protein supplements at hospital d/c; these do not count toward fluid limit -continue 1.2L fluid limit at d/c -hospital d/c appt w/ any physician w/in 2-3 wks of hospital d/c w/ bmp to be ordered by neph RN and drawn 48-72 hrs before appt Care coordinated w/ Dr Good (2) Severe malnutrition: Plan: try to avoid meds that worsen already poor po intake if feasible such as urea or higher dose salt tabs >>training specialist c/s for protein supplement ordered Admission and Anticipated Discharge Date Admission Date: September 26, 2023 Subjective seen on am rounds. no complaints except fatigue; tolerated thoracentesis yesterday Review of Systems 2 Review of Systems: All systems reviewed & are unremarkable except as noted in Subjective Physical Exam 2 Constitutional: well developed, + cachectic, + frail appearing and cooperative; no acute distress Eyes: EOM intact bilaterally ENMT: Ears: no external ear abnormality Nose: no external nose abnormality Mouth: + dry oral mucous membranes Neck: no nuchal rigidity Respiratory: normal respiratory effort Auscultation: + diminished lung sounds Cardiovascular: Rate/Rhythm: regular rate and regular rhythm Extremities: n o edema Gastrointestinal (Abdomen): Inspection/Auscultation: normal bowel sounds P ercussion/Palpation: abdomen soft; abdomen nontender Musculoskeletal: Extremities: strength 5/5 throughout Skin: no rashes, warm and dry Psychiatric: Orientation: alert, oriented to person and oriented to place A ffect: + anxious affect Results & Data Vital Signs (Past 12 Hours) Vital Signs Temp Pulse Pulse Resp BP BP Pulse Ox 09/29/23 08:08 36.3 C L 64 16 104/66 99 09/29/23 07:24 53 L 09/29/23 04:37 09/29/23 03:49 36.3 C L 57 L 20 123/75 96 O2 Del Method O2 Flow Rate 09/29/23 08:08 Room Air 09/29/23 07:24 09/29/23 04:37 Nasal Cannula 2 09/29/23 03:49 Room Air Laboratory Results 09/29/23 05:31 09/29/23 05:31
[2023-09-29] MEDS: APIXABAN 5 MG TABLET PO SCH ×2 (16:00→22:45)
--- NOTE | 2023-09-29 16:44 | Hospitalist Progress Note ---
Date of Service September 29, 2023 Assessment & Plan (1) Acute hypoxic respiratory failure: (2) Non-small cell cancer of left lung: (3) Pleural effusion, left: (4) Pneumonia: (5) Severe malnutrition: (6) Atrial fibrillation: Plan per previous attending notes with addendum: This is a 70-year-old female who has significant past medical history of non- small cell lung cancer of left upper lobe followed by Dr. Bray, hyponatremia, history of bilateral PE, atrial fibrillation anticoagulated with Eliquis, severe protein calorie malnutrition who presents to ED secondary to worsening shortness of breath x 2 weeks. Acute hypoxic respiratory failure Non-small cell cancer of left lung Left pleural effusion, concern for malignant effusion Possible left basilar pneumonia Possible sepsis - pt meets SIRS criteria with tachycardia and leukocytosis Admit to telemetry Empirically treat with IV Zosyn, doxycycline Obtain MRSA swab Supplemental oxygen as needed, pt most recently discharged on 2L As needed nebulizer, incentive spirometry obtain CT chest given extensive findings on XR Consult pulm to eval for possible thoracentesis last dose of eliquis was 0900 on 09/26, will hold until eval by pulm pt follows with Dr. Bray, currently unsure if wants to continue chemotherapy as she did not tolerate first round well consider inpt palliative consult 09/28 Remains on 2 L of oxygen Status post thoracentesis: 650 cc of fluid Cultures pending Currently on Lasix for hyponatremia Also on Zosyn and doxycycline Also on Decadron 6 mg plus remdesivir Labs okay 09/29 Off oxygen supplement Pleural fluid culture: Negative so far Cytology: Pending Continue with IV Zosyn, doxycycline Continue remdesivir day number 3 out of 5, Decadron Monitor closely Acute worsening of Chronic hyponatremia 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 NCSLC pt has been receiving IV hydration twice last week via heme/onc she has also stopped her lasix 2 weeks ago, but remains on NACL tabs obtain urine osm, urine na, serum osm will place on IV NS 75cc/hr and IV lasix 30mg q8h - reviewed nephrology prior progress notes/consultation for tx 09/28 On Lasix IV Sodium chloride 1 g twice daily Sodium level 131 Nephrology consulted 09/29 Sodium 133 Lasix on hold due to marginal blood pressure On sodium chloride tablet Cancer related pain pt with chest pain [facility] in [facility], day 3 but has no further refills, this will be removed palliative has pt on MS contin 15mg big, oxy IR 10mg q4hr prn pain will continue, bowel regimen as needed Hx of PE Eliquis on hold secondary to possible thoracentesis tomorrow Heparin drip deferred as patient is having some hemoptysis and hematochezia Resume Eliquis today PAF chronic, stable continue metoprolol Resume Eliquis today and Severe protein calorie malnutrition systems tester consulted DVT ppx: Yazminquhermilo DNR/DNI PCP: [facility] Dispo: pending, PT and OT evaluation lives with daughter at home Admission and Anticipated Discharge Date Admission Date: September 26, 2023 Subjective Follow-up for pleural effusion, etc. Seen resting in bed, comfortable, not in distress States she feels tired today but otherwise feeling okay Breathing is fine, off O2 supplement No cough, shortness of breath, fevers or chills No chest pain No other new symptoms Review of Systems Review of Systems: all noted and negative except for above Physical Exam Physical Exam: General- oriented x 3, not in distress, speaks in sentences with no effort or accessory muscle use Eyes- anicteric Neck- no JVD Lungs- clear breath sounds bilaterally, no rales/wheezes Heart- normal rate, regular rhythm; no murmurs Abdomen- normal bowel sounds, nondistended, soft, nontender Extremities- no pretibial edema, no calf tenderness Neuro- alert, oriented x 3; no gross focal neurologic deficits Skin- warm & dry Results & Data Results & Data Vital Signs (Past 12 Hours) Vital Signs Temp Pulse Pulse Resp BP Pulse Ox Pulse Ox 09/29/23 16:40 57 L 09/29/23 15:09 36.6 C 56 L 16 98/60 L 98 09/29/23 14:23 94 09/29/23 08:30 09/29/23 08:08 36.3 C L 64 16 104/66 99 09/29/23 07:24 53 L O2 Del Method O2 Flow Rate 09/29/23 16:40 09/29/23 15:09 Room Air 09/29/23 14:23 0 09/29/23 08:30 Room Air 09/29/23 08:08 Room Air 09/29/23 07:24 all noted and reviewed including below
[2023-09-29] MEDS: REMDESIVIR 100 MG in SODIUM CHLORIDE 0.9% 230 ML IV SCH (20:32)
[2023-09-30] MEDS: ONDANSETRON INJ 2 MG/ML 2 ML VIAL IV PRN (03:54)
[2023-09-30] MEDS: PIPERACILLIN/TAZOBACTAM 4.5 GM in DEXTROSE 5% MINI-B 100 ML IV SCH ×3 (05:19→22:09)
[2023-09-30 05:41] LABS: Basophils # (auto) 0.02 K/uL (0.00-0.20); Basophils % (auto) 0.1 %; Hematocrit (blood only) 28.6 % (37.0-47.0); Hemoglobin 9.1 g/dl (12.0-16.0); Immature Granulocytes # (auto) 0.11 K/uL (0.01-0.20); Immature Granulocytes % (auto) 0.7 %; Lymphocytes # (auto) 1.26 K/uL (1.20-3.40); Lymphocytes % (auto) 7.9 %; Mean Corpuscular Hemoglobin 25.7 pg (25.0-34.0); Mean Corpuscular Hgb Conc 31.8 g/dL (32.0-36.0); Mean Corpuscular Volume 80.8 fL (80.0-100.0); Mean Platelet Volume 9.3 fL (9.4-12.4); Monocytes # (auto) 1.26 K/uL (0.11-0.59); Monocytes % (auto) 7.9 %; Neutrophils # (auto) 13.23 K/uL (1.40-6.50); Neutrophils % (auto) 83.4 %; Platelet Count 507 K/uL (130-400); RDW Coefficient of Variation 18.1 % (11.5-14.5); RDW Standard Deviation 52.7 fL (36.4-46.3); Red Blood Count 3.54 M/uL (4.20-5.40); White Blood Count 15.88 K/ul (4.8-10.8)
[2023-09-30 06:00] LABS: Albumin Globulin Ratio 0.7 (0.9-2); Albumin Level 2.7 gm/dl (3.4-5.0); BUN Creatinine Ratio 38.9 (10-20); Bilirubin,Total 0.4 mg/dl (0.2-1.0); Calcium 9.2 mg/dl (8.6-10.3); Creatinine Clr Calc Pharmacy 34.7 ml/min; Est GFR (African American) 66.5 ml/min; Est GFR (Non-African American) 57.4 ml/min; Potassium 3.9 mmol/L (3.5-5.1); Total Protein 6.7 gm/dl (6.0-8.3)
[2023-09-30] MEDS: MAGNESIUM OXIDE 400 MG TAB PO SCH ×2 (08:24→21:12)
[2023-09-30] MEDS: APIXABAN 5 MG TABLET PO SCH ×2 (08:24→21:12)
[2023-09-30] MEDS: POTASSIUM CHLORIDE CRTAB 20 MEQ TABCR PO SCH (08:24)
[2023-09-30] MEDS: SODIUM CHLORIDE 1 GM TABLET PO SCH ×2 (08:24→21:11)
[2023-09-30] MEDS: DOXYCYCLINE HYCLATE 100 MG CAP PO SCH ×2 (08:24→21:12)
[2023-09-30] MEDS: SACCHAROMYCES BOULARDII 250 MG CAP PO SCH (08:24)
[2023-09-30] MEDS: MoRPHine SULFATE CR 15 MG TABCR PO SCH ×2 (08:32→21:12)
[2023-09-30] MEDS: dexAMETHasone 6 MG in SYRINGE 0 ML IV SCH (08:33)
[2023-09-30] MEDS: METOPROLOL SUCC 50MG EXT REL TAB PO SCH (08:35)
--- NOTE | 2023-09-30 18:58 | Hospitalist Progress Note ---
Date of Service September 30, 2023 delayed entry date of service noted above Assessment & Plan (1) Acute hypoxic respiratory failure: (2) Non-small cell cancer of left lung: (3) Pleural effusion, left: (4) Pneumonia: (5) Severe malnutrition: (6) Atrial fibrillation: Plan per previous attending notes with addendum: This is a 70-year-old female who has significant past medical history of non- small cell lung cancer of left upper lobe followed by Dr. Bray, hyponatremia, history of bilateral PE, atrial fibrillation anticoagulated with Eliquis, severe protein calorie malnutrition who presents to ED secondary to worsening shortness of breath x 2 weeks. Acute hypoxic respiratory failure Non-small cell cancer of left lung Left pleural effusion, concern for malignant effusion Possible left basilar pneumonia Possible sepsis - pt meets SIRS criteria with tachycardia and leukocytosis Admit to telemetry Empirically treat with IV Zosyn, doxycycline Obtain MRSA swab Supplemental oxygen as needed, pt most recently discharged on 2L As needed nebulizer, incentive spirometry obtain CT chest given extensive findings on XR Consult pulm to eval for possible thoracentesis last dose of eliquis was 0900 on 09/26, will hold until eval by pulm pt follows with Dr. Bray, currently unsure if wants to continue chemotherapy as she did not tolerate first round well consider inpt palliative consult 09/28 Remains on 2 L of oxygen Status post thoracentesis: 650 cc of fluid Cultures pending Currently on Lasix for hyponatremia Also on Zosyn and doxycycline Also on Decadron 6 mg plus remdesivir Labs okay 09/29 Off oxygen supplement Pleural fluid culture: Negative so far Cytology: Pending Continue with IV Zosyn, doxycycline Continue remdesivir day number 3 out of 5, Decadron Monitor closely 09/30 (+) delirium hold Decadron monitor Acute worsening of Chronic hyponatremia 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 NCSLC pt has been receiving IV hydration twice last week via heme/onc she has also stopped her lasix 2 weeks ago, but remains on NACL tabs obtain urine osm, urine na, serum osm will place on IV NS 75cc/hr and IV lasix 30mg q8h - reviewed nephrology prior progress notes/consultation for tx 09/28 On Lasix IV Sodium chloride 1 g twice daily Sodium level 131 Nephrology consulted 09/29 Sodium 133 Lasix on hold due to marginal blood pressure On sodium chloride tablet 09/30 monitor Cancer related pain pt with chest pain [facility] has fentanyl patch in place, day 3 but has no further refills, this will be removed palliative has pt on MS contin 15mg big, oxy IR 10mg q4hr prn pain will continue, bowel regimen as needed Hx of PE Eliquis on hold secondary to possible thoracentesis tomorrow Heparin drip deferred as patient is having some hemoptysis and hematochezia Resume Eliquis today PAF chronic, stable continue metoprolol Resume Eliquis today and 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 DVT ppx: Eliquis DNR/DNI PCP: [facility] Dispo: pending, PT and OT evaluation lives with daughter at home Admission and Anticipated Discharge Date Admission Date: September 26, 2023 Subjective ff up for pleural effusion, etc seen resting in bed, comfortable confused no chest pain, dyspnea, palpitations, dizziness no other symptoms Review of Systems Review of Systems: all noted and negative except for above Physical Exam Physical Exam: General- oriented x 1-2, not in distress, speaks in sentences with no effort or accessory muscle use Eyes- anicteric Neck- no JVD Lungs- clear BS BL Heart- normal rate, regular rhythm; no murmurs Abdomen- normal bowel sounds, nondistended, soft, nontender Extremities- no pretibial edema, no calf tenderness Neuro- alert, oriented x 1-2; no gross focal neurologic deficits Skin- warm & dry Results & Data Results & Data Vital Signs (Past 12 Hours) Vital Signs Temp Pulse Pulse Resp BP BP Pulse Ox 09/30/23 17:56 57 L 09/30/23 17:03 36.3 C L 58 L 20 137/77 99 09/30/23 12:46 36.4 C L 60 18 143/74 H 100 09/30/23 08:23 36.3 C L 88 18 142/82 H 96 09/30/23 08:20 09/30/23 07:31 53 L O2 Del Method O2 Flow Rate 09/30/23 17:56 09/30/23 17:03 Nasal Cannula 2 09/30/23 12:46 Room Air 09/30/23 08:23 Room Air 09/30/23 08:20 Room Air 09/30/23 07:31 all noted and reviewed including below
[2023-09-30] MEDS: REMDESIVIR 100 MG in SODIUM CHLORIDE 0.9% 230 ML IV SCH (21:04)
[2023-10-01] MEDS: PIPERACILLIN/TAZOBACTAM 4.5 GM in DEXTROSE 5% MINI-B 100 ML IV SCH ×3 (05:27→21:10)
[2023-10-01 06:11] LABS: Basophils # (auto) 0.05 K/uL (0.00-0.20); Basophils % (auto) 0.3 %; Hematocrit (blood only) 28.2 % (37.0-47.0); Hemoglobin 9.1 g/dl (12.0-16.0); Immature Granulocytes # (auto) 0.18 K/uL (0.01-0.20); Lymphocytes # (auto) 1.61 K/uL (1.20-3.40); Mean Corpuscular Hemoglobin 26.1 pg (25.0-34.0); Mean Corpuscular Hgb Conc 32.3 g/dL (32.0-36.0); Mean Corpuscular Volume 80.8 fL (80.0-100.0); Mean Platelet Volume 9.9 fL (9.4-12.4); Monocytes # (auto) 1.44 K/uL (0.11-0.59); Neutrophils # (auto) 14.64 K/uL (1.40-6.50); Neutrophils % (auto) 81.7 %; Platelet Count 523 K/uL (130-400); RDW Coefficient of Variation 18.3 % (11.5-14.5); RDW Standard Deviation 52.7 fL (36.4-46.3); Red Blood Count 3.49 M/uL (4.20-5.40); White Blood Count 17.92 K/ul (4.8-10.8)
[2023-10-01 06:30] LABS: Albumin Globulin Ratio 0.7 (0.9-2); Albumin Level 2.7 gm/dl (3.4-5.0); Bilirubin,Total 0.4 mg/dl (0.2-1.0); Calcium 8.8 mg/dl (8.6-10.3); Creatinine Clr Calc Pharmacy 39.8 ml/min; Est GFR (African American) 78.3 ml/min; Est GFR (Non-African American) 67.5 ml/min; Globulin 3.8 gm/dl (2.5-4.0); Magnesium 2.1 mg/dl (1.7-2.4); Potassium 4.1 mmol/L (3.5-5.1); Total Protein 6.5 gm/dl (6.0-8.3)
[2023-10-01] MEDS: MoRPHine SULFATE CR 15 MG TABCR PO SCH ×2 (08:51→21:10)
[2023-10-01] MEDS: POTASSIUM CHLORIDE CRTAB 20 MEQ TABCR PO SCH ×2 (08:51→21:12)
[2023-10-01] MEDS: DOXYCYCLINE HYCLATE 100 MG CAP PO SCH ×2 (08:52→21:11)
[2023-10-01] MEDS: SACCHAROMYCES BOULARDII 250 MG CAP PO SCH (08:52)
[2023-10-01] MEDS: APIXABAN 5 MG TABLET PO SCH ×2 (08:52→21:11)
[2023-10-01] MEDS: MAGNESIUM OXIDE 400 MG TAB PO SCH ×2 (08:52→21:11)
[2023-10-01] MEDS: SODIUM CHLORIDE 1 GM TABLET PO SCH ×2 (08:52→21:11)
[2023-10-01 09:41] LABS: Thyroid Stimulating Hormone 1.591 uIu/ml (0.300-4.500)
--- NOTE | 2023-10-01 10:17 | XRay Report ---
XR chest 1V portable CLINICAL HISTORY: shortness of breath COMPARISON STUDY: Chest CT September 18, 2023. Chest radiograph September 28, 2023. FINDINGS: Large left apical pulmonary mass is again noted. Erosion of the adjacent ribs is better dep icted on prior CT. There is no pneumothorax. There is a small left pleural effusion. There is no evid ence for pulmonary edema. No consolidation is identified to suggest pneumonia. Right lung is clear. C ardiomediastinal silhouette is stable. IMPRESSION: 1. Redemonstration of the left upper lobe mass. 2. No pneumothorax. 3. Small left pleural effusion. ACT 112: Negative or not required by law. Electronically signed by: José Miguel Sanchez M.D. 10/01/2023 10:16 AM
[2023-10-01] MEDS: oxyCODONE HCL IR 5 MG TAB (IMMEDIATE RELEASE) PO PRN ×2 (12:25→16:35)
--- NOTE | 2023-10-01 13:27 | Electrocardiogram Report ---
Test Reason : Blood Pressure : / mmHG Vent. Rate : 054 BPM Atrial Rate : 054 BPM P-R Int : 154 ms QRS Dur : 088 ms QT Int : 470 ms P-R-T Axes : 085 052 072 degrees QTc Int : 445 ms Sinus bradycardia Possible Left atrial enlargement Septal infarct (cited on or before 01-OCT-2023) Abnormal ECG When compared with ECG of 27-SEP-2023 09:11, Premature atrial complexes are no longer Present Vent. rate has decreased BY 27 BPM Confirmed by Arash Henry ([id number]) on 10/01/2023 1:27:02 PM Referred By: REFERRED SELF Confirmed By:Arash Henry
--- NOTE | 2023-10-01 14:09 | Hospitalist Progress Note ---
Date of Service October 01, 2023 Assessment & Plan (1) Acute hypoxic respiratory failure: (2) Non-small cell cancer of left lung: (3) Pleural effusion, left: (4) Pneumonia: (5) Severe malnutrition: (6) Atrial fibrillation: Plan per previous attending notes with addendum: This is a 70-year-old female who has significant past medical history of non- small cell lung cancer of left upper lobe followed by Dr. Bray, hyponatremia, history of bilateral PE, atrial fibrillation anticoagulated with Eliquis, severe protein calorie malnutrition who presents to ED secondary to worsening shortness of breath x 2 weeks. Acute hypoxic respiratory failure Non-small cell cancer of left lung Left pleural effusion, concern for malignant effusion Possible left basilar pneumonia Possible sepsis - pt meets SIRS criteria with tachycardia and leukocytosis Admit to telemetry Empirically treat with IV Zosyn, doxycycline Obtain MRSA swab Supplemental oxygen as needed, pt most recently discharged on 2L As needed nebulizer, incentive spirometry obtain CT chest given extensive findings on XR Consult pulm to eval for possible thoracentesis last dose of eliquis was 0900 on 09/26, will hold until eval by pulm pt follows with Dr. Bray, currently unsure if wants to continue chemotherapy as she did not tolerate first round well consider inpt palliative consult 09/28 Remains on 2 L of oxygen Status post thoracentesis: 650 cc of fluid Cultures pending Currently on Lasix for hyponatremia Also on Zosyn and doxycycline Also on Decadron 6 mg plus remdesivir Labs okay 09/29 Off oxygen supplement Pleural fluid culture: Negative so far Cytology: Pending Continue with IV Zosyn, doxycycline Continue remdesivir day number 3 out of 5, Decadron Monitor closely 10/01 repeat CXR: stable discussed with Dr. Hernandez continue Zosyn, Doxycycline hold Remdesivir (cause of bradycardia?), discontinue Decadron (contributing to confusion?) monitor Delirium likely multifactorial- Decadron, narcotics, hospital delirium improving monitor Sinus Bradycardia from Remdesivir? held hold Metoprolol monitor Acute worsening of Chronic hyponatremia 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 [facility]LC pt has been receiving IV hydration twice last week via heme/onc she has also stopped her lasix 2 weeks ago, but remains on NACL tabs obtain urine osm, urine na, serum osm will place on IV NS 75cc/hr and IV lasix 30mg q8h - reviewed nephrology prior progress notes/consultation for tx 09/28 On Lasix IV Sodium chloride 1 g twice daily Sodium level 131 Nephrology consulted 09/29 Sodium 133 Lasix on hold due to marginal blood pressure On sodium chloride tablet 10/01 Na 135 hold Lasix continue salt tab Cancer related pain pt with chest pain she is following palliative through [facility] has fentanyl patch in place, day 3 but has no further refills, this will be removed palliative has pt on MS contin 15mg big, oxy IR 10mg q4hr prn pain will continue, bowel regimen as needed Hx of PE Eliquis on hold secondary to possible thoracentesis tomorrow Heparin drip deferred as patient is having some hemoptysis and hematochezia on Eliquis PAF chronic, stable continue metoprolol Resume Eliquis today and 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 DVT ppx: Eliquis DNR/DNI PCP: [facility] Dispo: pending, PT and OT evaluation lives with daughter at home Admission and Anticipated Discharge Date Admission Date: September 26, 2023 Subjective ff up for pleural effusion, etc seen resting in bed, not in distress on 2 L appears somewhat anxious states she is having a lot of pain today reports mild dyspnea, no cough no other new symptoms Review of Systems Review of Systems: all noted and negative except for above Physical Exam Physical Exam: General- oriented x 3, not in distress, speaks in sentences with no effort or accessory muscle use Eyes- anicteric Neck- no JVD Lungs- clear breath sounds bilaterally, no rales/wheezes Heart- normal rate, regular rhythm; no murmurs Abdomen- normal bowel sounds, nondistended, soft, nontender Extremities- no pretibial edema, no calf tenderness Neuro- alert, oriented x 3; no gross focal neurologic deficits Skin- warm & dry Results & Data Results & Data Vital Signs (Past 12 Hours) Vital Signs Temp Pulse Pulse Resp BP BP Pulse Ox 10/01/23 11:30 54 L 20 168/74 H 98 10/01/23 08:45 10/01/23 08:41 36.3 C L 51 L 20 164/78 H 100 10/01/23 07:27 54 L 10/01/23 03:36 10/01/23 03:35 36.2 C L 53 L 16 150/81 H 100 O2 Del Method O2 Flow Rate 10/01/23 11:30 Nasal Cannula 2 10/01/23 08:45 Room Air 10/01/23 08:41 Nasal Cannula 2 10/01/23 07:27 10/01/23 03:36 Room Air 10/01/23 03:35 Nasal Cannula 2 all noted and reviewed including below
[2023-10-01] MEDS: ONDANSETRON INJ 2 MG/ML 2 ML VIAL IV PRN (21:44)
[2023-10-02] MEDS: oxyCODONE HCL IR 5 MG TAB (IMMEDIATE RELEASE) PO PRN ×2 (01:35→16:29)
[2023-10-02 03:48] LABS: Basophils # (auto) 0.03 K/uL (0.00-0.20); Basophils % (auto) 0.2 %; Eosinophils # (auto) 0.01 K/uL (0.00-0.50); Eosinophils % (auto) 0.1 %; Hematocrit (blood only) 29.8 % (37.0-47.0); Hemoglobin 9.2 g/dl (12.0-16.0); Immature Granulocytes # (auto) 0.14 K/uL (0.01-0.20); Immature Granulocytes % (auto) 0.9 %; Lymphocytes # (auto) 1.41 K/uL (1.20-3.40); Lymphocytes % (auto) 9.1 %; Mean Corpuscular Hemoglobin 25.6 pg (25.0-34.0); Mean Corpuscular Hgb Conc 30.9 g/dL (32.0-36.0); Mean Platelet Volume 9.5 fL (9.4-12.4); Neutrophils # (auto) 12.54 K/uL (1.40-6.50); Neutrophils % (auto) 80.7 %; Platelet Count 452 K/uL (130-400); RDW Coefficient of Variation 18.6 % (11.5-14.5); RDW Standard Deviation 55.8 fL (36.4-46.3); Red Blood Count 3.59 M/uL (4.20-5.40); White Blood Count 15.53 K/ul (4.8-10.8)
[2023-10-02 03:58] LABS: Creatinine Clr Calc Pharmacy 45.8 ml/min; Est GFR (Non-African American) 80.2 ml/min; Magnesium 2.2 mg/dl (1.7-2.4)
[2023-10-02] MEDS: PIPERACILLIN/TAZOBACTAM 4.5 GM in DEXTROSE 5% MINI-B 100 ML IV SCH ×3 (05:25→20:06)
[2023-10-02] MEDS: MoRPHine SULFATE CR 15 MG TABCR PO SCH ×2 (09:06→19:58)
[2023-10-02] MEDS: DOXYCYCLINE HYCLATE 100 MG CAP PO SCH ×2 (09:06→19:58)
[2023-10-02] MEDS: SACCHAROMYCES BOULARDII 250 MG CAP PO SCH (09:07)
[2023-10-02] MEDS: POTASSIUM CHLORIDE CRTAB 20 MEQ TABCR PO SCH ×2 (09:07→20:06)
[2023-10-02] MEDS: APIXABAN 5 MG TABLET PO SCH ×2 (09:07→19:58)
[2023-10-02] MEDS: MAGNESIUM OXIDE 400 MG TAB PO SCH ×2 (09:07→19:58)
[2023-10-02] MEDS: SODIUM CHLORIDE 1 GM TABLET PO SCH ×2 (09:07→19:58)
[2023-10-02] MEDS ORDERED: HYDROmorphone INJ 0.5 MG/0.5 ML SYR IV PRN (10:00)
[2023-10-02] MEDS ORDERED: HYDROmorphone INJ 0.5 MG/0.5 ML SYR IV STA (13:18)
--- NOTE | 2023-10-02 14:24 | Palliative Care Consultation ---
Date of Consultation October 02, 2023 Assessment & Plan (1) Cancer related pain: Patient states she is not obtaining sufficient relief with current as needed Dilaudid. She is getting 0.5 mg IV every 6 hours as needed. She has used 1 dose so far today. I have increased the frequency to every 4 hours as needed. Will see how she does on this regimen over the next few days. It is noted that she is also on oral oxycodone. I think it would be reasonable to consider a switch of breakthrough medications from oral oxycodone to oral hydrocodone (Dilaudid) once we determine if the Dilaudid is effective over the next 1 to 2 days. I did not adjust her long-acting MS Contin because she has not used enough Dilaudid as needed doses for me to make this switch. (2) Dyspnea and respiratory abnormalities: (3) Weakness generalized: (4) Palliative care by specialist: Patient is very familiar with palliative medicine as she is followed by the [facility] palliative medicine team. She had no other questions or concerns to share with me today. (5) Advanced care planning/counseling discussion: 25-minute [id number] advance care planning discussion was held with patient and her [facility] isolation room. No other family was present. She shares that she is no longer sure she wants to pursue any cancer directed therapy. She has vocalized the same concern to her [facility] palliative medicine team. She states that she feels the first round of chemotherapy did not offer the benefit she hoped it would and in fact it is only made her feel worse. In spite of this she has continued to decline with growing weakness and declining performance status. She does not feel chemo has been beneficial. She feels that she needs to think about this some more before making a final decision. I encouraged her to share her worries and her concerns with her primary oncologist at [facility] to further the dialogue. Extensive psychosocial support and reassurance provided. (6) Non-small cell cancer of left lung: (7) Pleural effusion: (8) Atrial fibrillation: Plan Pain management changes as noted above. Advance care planning discussion as noted above. Patient is unsure if she wishes to pursue further cancer directed therapy but wants more time to think about this and also wishes to discuss with her daughter who is actively and deeply involved in her care. There have been concerns noted in the [facility] record with regards to patient's pain management regimen and dose adjustments, dose escalations and medication regimen changes by family members. She plans to continue to follow-up at [facility] outpatient palliative medicine and this will be an ongoing discussion in their clinic. Thank you for allowing us to participate in the ongoing care of this patient. Please don't hesitate to call or page with any additional concerns. Dr. Akanksha Lozano DNP Director, Palliative Care History of Present Illness Reason for Consultation: Goals of care pain management due to cancer Attending Physician: Deepak Good MD History of Present Illness Katherine is a 78-year-old female with metastatic non-small cell lung cancer. She admitted from home with respiratory failure and was found to be COVID-positive. She also had a pleural effusion noted. She has very severe cancer pain which she reports is in the anterior to mid chest reveals with radiation and a wrapping bandlike motion around her chest and ribs to her back. Sometimes it also feels like the pain is shooting through her straight to her back and spine. She reports the pain is severe and constant. It is sharp and persistent. She does not feel that it has an electric quality but states that it is so intense it makes her short of breath and overall very much to track some quality of life. She feels her current pain regimen is not helping this pain complex. She has relief from IV Dilaudid but notes that it does not last long enough. She is currently using Dilaudid 0.5 mg IV every 6 hours as needed basis and the review of the MAR indicates that she is only used 1 dose so far today. Katherine is followed by the [facility] palliative medicine team out of [facility] and she sees them in the [facility] location at her oncology visits. [facility] EMR link review indicates some ongoing concerns with regards to pain medicine utilization and how these regimens have been adjusted without provider input by family members. Allergies Allergy/AdvReac Type Severity Reaction Status Date / Time No Known Allergies Allergy Verified 06/28/23 16:24 Home Medications Medication Instructions Recorded Confirmed Type apixaban 5 mg tablet (Eliquis) 5 mg PO BID 06/28/23 09/26/23 History lidocaine 5 % topical patch 1 patch transdermal HS PRN Pain 08/14/23 09/26/23 History morphine 15 mg tablet,extended 15 mg PO BID 08/14/23 09/26/23 History release ondansetron HCl 8 mg tablet 8 mg PO Q8H PRN n/v 08/14/23 09/26/23 History prochlorperazine maleate 10 mg 10 mg PO Q6H PRN n/v 08/14/23 09/26/23 History tablet sennosides 8.6 mg tablet (Senokot) 8.6 mg PO QAM PRN const 08/14/23 09/26/23 History furosemide 20 mg tablet (Lasix) 20 mg PO BID #60 tabs 08/18/23 09/26/23 Rx magnesium oxide 400 mg (241.3 mg 400 mg PO BID #60 tabs 08/18/23 09/26/23 Rx magnesium) tablet metoprolol succinate 50 mg 100 mg (2 x 50 mg) PO QAM #60 tabs 08/18/23 09/26/23 Rx tablet,extended release 24 hr sodium chloride 1,000 mg soluble 1,000 mg PO BID #60 tabs 08/18/23 09/26/23 Rx tablet oxycodone 5 mg tablet 10 mg PO Q4H PRN pain 09/26/23 09/26/23 History Patient History Medical History (Updated 10/02/23 @ 14:32 by Akanksha Lozano DNP) SIADH (syndrome of inappropriate ADH production) History of pulmonary embolism Non-small cell cancer of left lung Surgical History History of parotidectomy History of hip surgery Family History Other Breast cancer Social History Smoking Status: Former smoker Tobacco Type: Cigarettes Second Hand Exposure: No; Do You Dip or Chew Tobacco: No; Hx Alcohol Use: No Hx Substance Use: No Preferred Language: Luxembourgish Communication Ability: Impaired Well Treatment Offsider Required: No Beliefs That Will Affect Care: None Current Living Situation: Family Current Living Situation Comment: daughter Feels Safe at Home: Yes Assistive Devices: Glasses, Oxygen - Continuous and Walker Review of Systems Review of Systems: All systems reviewed & are unremarkable except as noted in Subjective Physical Exam Physical Exam: Frail, cachectic female, semireclined in bed. Bitemporal wasting noted. + Chemo related alopecia. + Pupils equal, round and reactive to light. Extraocular movements intact. Mood is subdued and slightly anxious. Appears distressed and uncomfortable. Significant respiratory effort with change in positions. He has an intermittent dry cough. He is unable to tolerate prolonged conversation or activity. Bony prominences are visible. Lungs are diminished bilaterally. There are few scattered crackles and faint wheeze. There is use of accessory muscles noted. There is conversational dyspnea noted. There is abdominal breathing noted. Mid to anterior chest wall is tender to palpation with radiation around to the sides. There are some epigastric tenderness noted. She is tender along her bony prominences and rib cage. Abdomen is scaphoid. Mildly tender with deep palpation. Bowel sounds are decreased. Generalized weakness throughout. Strength is diminished. She is awake alert and oriented x 3. Skin is pale and cool to touch. There is no clubbing noted. Results & Data Vital Signs (Past 12 Hours) Vital Signs Temp Pulse Pulse Resp BP BP Pulse Ox 10/02/23 11:43 36.8 C 58 L 18 132/71 94 10/02/23 11:07 10/02/23 07:55 36.1 C L 58 L 16 129/77 99 10/02/23 07:47 56 L O2 Del Method O2 Flow Rate 10/02/23 11:43 Nasal Cannula 2 10/02/23 11:07 Nasal Cannula 2 10/02/23 07:55 Nasal Cannula 2 10/02/23 07:47 Laboratory Results Data reviewed Diagnostic Findings Data reviewed PG Care Time/CCT Total # of Minutes Spent Total Time Spent: 90 Total Time Spent with Patient: Total time spent is greater than 50% in coordination of care (as documented) at patient's floor/unit and/or counseling patient: I spent minutes overall addressing this complex case: 25 min in medical data review/discussion with referring provider(s) and/or preparation for the visit, which included extensive review of outside hospital records in the EMR link through [facility] Response 15 min in direct interaction with the patient/exam 25 min in Advance Care Planning/Goals of Care discussions as detailed above in note (must be >16min) 10 min in subsequent review and synthesis of assessment and plan 15 min communicating with other providers regarding the patient's case: Primary team, nursing, Advanced Care Planning 86407 Advanced Care Planning 30 [place] [address] IN/OBS CONSULT LVL 5,80M Patient Type New History Comprehensive Exam Comprehensive Medical Decision Making High Complexity Diagnoses Cancer related pain G89.3 Dyspnea and respiratory abnormalities R06.00; R06.89 Weakness generalized R53.1 Palliative care by specialist Z51.5 Advanced care planning/counseling discussion Z71.89 Non-small cell cancer of left lung C34.92 Pleural effusion J90 Atrial fibrillation I48.91 Additional Codes Advanced Care Planning - 35593 Advanced Care Planning 30 Min: 46935 Advanced Care Planning 30 Min ([id number])
[2023-10-02] MEDS: HYDROmorphone INJ 0.5 MG/0.5 ML SYR IV PRN (17:48)
--- NOTE | 2023-10-02 20:46 | Hospitalist Progress Note ---
Date of Service October 02, 2023 Assessment & Plan (1) Acute hypoxic respiratory failure: (2) Non-small cell cancer of left lung: (3) Pleural effusion, left: (4) Pneumonia: (5) Severe malnutrition: (6) Atrial fibrillation: Plan per previous attending notes with addendum: This is a 70-year-old female who has significant past medical history of non- small cell lung cancer of left upper lobe followed by Dr. Bray, hyponatremia, history of bilateral PE, atrial fibrillation anticoagulated with Eliquis, severe protein calorie malnutrition who presents to ED secondary to worsening shortness of breath x 2 weeks. Acute hypoxic respiratory failure Non-small cell cancer of left lung Left pleural effusion, concern for malignant effusion Possible left basilar pneumonia Possible sepsis - pt meets SIRS criteria with tachycardia and leukocytosis Admit to telemetry Empirically treat with IV Zosyn, doxycycline Obtain MRSA swab Supplemental oxygen as needed, pt most recently discharged on 2L As needed nebulizer, incentive spirometry obtain CT chest given extensive findings on XR Consult pulm to eval for possible thoracentesis last dose of eliquis was 0900 on 09/26, will hold until eval by pulm pt follows with Dr. Bray, currently unsure if wants to continue chemotherapy as she did not tolerate first round well consider inpt palliative consult 09/28 Remains on 2 L of oxygen Status post thoracentesis: 650 cc of fluid Cultures pending Currently on Lasix for hyponatremia Also on Zosyn and doxycycline Also on Decadron 6 mg plus remdesivir Labs okay 09/29 Off oxygen supplement Pleural fluid culture: Negative so far Cytology: Pending Continue with IV Zosyn, doxycycline Continue remdesivir day number 3 out of 5, Decadron Monitor closely 10/01 repeat CXR: stable discussed with Dr. Hernandez continue Zosyn, Doxycycline hold Remdesivir (cause of bradycardia?), discontinue Decadron (contributing to confusion?) monitor 10/02 Respiratory status stable Continue Zosyn, doxycycline Remdesivir and Decadron discontinued completed 4 days Delirium likely multifactorial- Decadron, narcotics, hospital delirium Continues to improve g monitor Sinus Bradycardia from Remdesivir? 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 NCSLC pt has been receiving IV hydration twice last week via heme/onc she has also stopped her lasix 2 weeks ago, but remains on NACL tabs obtain urine osm, urine na, serum osm will place on IV NS 75cc/hr and IV lasix 30mg q8h - reviewed nephrology prior progress notes/consultation for tx 09/28 On Lasix IV Sodium chloride 1 g twice daily Sodium level 131 Nephrology consulted 09/29 Sodium 133 Lasix on hold due to marginal blood pressure On sodium chloride tablet 10/01 Na 135 hold Lasix continue salt tab 10/02 repeat tomorrow Cancer related pain pt with chest pain she is following palliative through [facility] has fentanyl patch in place, day 3 but has no further refills, this will be removed palliative has pt on MS contin 15mg big, oxy IR 10mg q4hr prn pain will continue, bowel regimen as needed 10/02 Pain increasing Added IV Dilaudid as needed Palliative care service consulted Hx of PE Eliquis on hold secondary to possible thoracentesis tomorrow Heparin drip deferred as patient is having some hemoptysis and hematochezia on Eliquis PAF chronic, stable continue metoprolol Resume Eliquis Severe protein calorie malnutrition 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 Seen resting in bed, comfortable, not in distress Awake, oriented x2, answers questions appropriately States she is still having uncontrolled pain Requesting to increase pain medication No shortness of breath, cough, MNo Other symptoms Review of Systems Review of Systems: all noted and negative except for above Physical Exam Physical Exam: General- oriented x 3, not in distress, speaks in sentences with no effort or accessory muscle use Eyes- anicteric Neck- no JVD Lungs- clear BS BL Heart- normal rate, regular rhythm; no murmurs Abdomen- normal bowel sounds, nondistended, soft, nontender Extremities- no pretibial edema, no calf tenderness Neuro- alert, oriented x 3; no gross focal neurologic deficits Skin- warm & dry Results & Data Results & Data Vital Signs (Past 12 Hours) Vital Signs Temp Pulse Pulse Resp BP BP Pulse Ox 10/02/23 19:00 35.8 C L 67 18 156/74 H 100 10/02/23 18:00 10/02/23 16:29 36.3 C L 68 16 136/77 97 10/02/23 15:15 63 10/02/23 11:43 36.8 C 58 L 18 132/71 94 10/02/23 11:07 Pulse Ox O2 Del Method O2 Del Method O2 Flow Rate O2 Flow Rate 10/02/23 19:00 Room Air 10/02/23 18:00 97 Nasal Cannula 2 10/02/23 16:29 Nasal Cannula 2 10/02/23 15:15 10/02/23 11:43 Nasal Cannula 2 10/02/23 11:07 Nasal Cannula 2 all noted and reviewed including below
[2023-10-03] MEDS: HYDROmorphone INJ 0.5 MG/0.5 ML SYR IV PRN ×3 (00:55→16:35)
[2023-10-03] MEDS: PIPERACILLIN/TAZOBACTAM 4.5 GM in DEXTROSE 5% MINI-B 100 ML IV SCH ×2 (05:26→13:07)
[2023-10-03] MEDS: oxyCODONE HCL IR 5 MG TAB (IMMEDIATE RELEASE) PO PRN ×2 (05:26→12:39)
[2023-10-03] MEDS: APIXABAN 5 MG TABLET PO SCH (08:37)
[2023-10-03] MEDS: DOXYCYCLINE HYCLATE 100 MG CAP PO SCH (08:37)
[2023-10-03] MEDS: SACCHAROMYCES BOULARDII 250 MG CAP PO SCH (08:37)
[2023-10-03] MEDS: MAGNESIUM OXIDE 400 MG TAB PO SCH (08:37)
[2023-10-03] MEDS: MoRPHine SULFATE CR 15 MG TABCR PO SCH (08:37)
[2023-10-03] MEDS: SODIUM CHLORIDE 1 GM TABLET PO SCH (08:38)
[2023-10-03] MEDS: POTASSIUM CHLORIDE CRTAB 20 MEQ TABCR PO SCH (08:38)
[2023-10-03] MEDS: ONDANSETRON INJ 2 MG/ML 2 ML VIAL IV PRN (17:33)
== END 2023-10-03 17:46 | disposition hospice, inpatient (51) | DRG 871 ==
LOC: ED 11:19 → EDINP 14:12 → SUATTDRO 14:12 → 2W 09-27 16:16
DX: C34.12 Malignant neoplasm of upper lobe, left bronchus or lung; G89.3 Neoplasm related pain (acute) (chronic); U07.1 COVID-19; J96.01 Acute respiratory failure with hypoxia; A41.9 Sepsis, unspecified organism; J98.11 Atelectasis; I48.0 Paroxysmal atrial fibrillation; C77.3 Secondary and unspecified malignant neoplasm of axilla and upper limb lymph nodes; J91.0 Malignant pleural effusion; M84.58XA Pathological fracture in neoplastic disease, other specified site, initial encounter for fracture; D64.9 Anemia, unspecified; C79.51 Secondary malignant neoplasm of bone; Z51.5 Encounter for palliative care; R00.1 Bradycardia, unspecified; E43 Unspecified severe protein-calorie malnutrition; E22.2 Syndrome of inappropriate secretion of antidiuretic hormone; C78.1 Secondary malignant neoplasm of mediastinum; Z66 Do not resuscitate; J43.2 Centrilobular emphysema; J12.82 Pneumonia due to coronavirus disease 2019; Z79.01 Long term (current) use of anticoagulants; J96.21 Acute and chronic respiratory failure with hypoxia

== ENCOUNTER 2023-10-03 17:46 | Inpatient (IN) ==
--- NOTE | 2023-10-03 18:20 | Hospitalist Progress Note ---
Date of Service October 03, 2023 Assessment & Plan (1) Pleural effusion: (2) Non-small cell cancer of left lung: (3) History of pulmonary embolism: Plan: (1) Acute hypoxic respiratory failure: (2) Non-small cell cancer of left lung: (3) Pleural effusion, left: (4) Pneumonia: (5) Severe malnutrition: (6) Atrial fibrillation: Plan per previous attending notes with addendum: This is a 70-year-old female who has significant past medical history of non- small cell lung cancer of left upper lobe followed by Dr. Bray, hyponatremia, history of bilateral PE, atrial fibrillation anticoagulated with Eliquis, severe protein calorie malnutrition who presents to ED secondary to worsening shortness of breath x 2 weeks. Acute hypoxic respiratory failure Non-small cell cancer of left lung Left pleural effusion, concern for malignant effusion Possible left basilar pneumonia Possible sepsis - pt meets SIRS criteria with tachycardia and leukocytosis COVID-19 infection Admit to telemetry Empirically treat with IV Zosyn, doxycycline Obtain MRSA swab Supplemental oxygen as needed, pt most recently discharged on 2L As needed nebulizer, incentive spirometry obtain CT chest given extensive findings on XR Consult pulm to eval for possible thoracentesis last dose of eliquis was 0900 on 09/26, will hold until eval by pulm pt follows with Dr. Bray, currently unsure if wants to continue chemotherapy as she did not tolerate first round well consider inpt palliative consult 09/28 Remains on 2 L of oxygen Status post thoracentesis: 650 cc of fluid Cultures pending Currently on Lasix for hyponatremia Also on Zosyn and doxycycline Also on Decadron 6 mg plus remdesivir Labs okay 09/29 Off oxygen supplement Pleural fluid culture: Negative so far Cytology: Pending Continue with IV Zosyn, doxycycline Continue remdesivir day number 3 out of 5, Decadron Monitor closely 10/01 repeat CXR: stable discussed with Dr. Hernandez continue Zosyn, Doxycycline hold Remdesivir (cause of bradycardia?), discontinue Decadron (contributing to confusion?) monitor 10/02 Respiratory status stable Continue Zosyn, doxycycline Remdesivir and Decadron discontinued completed 4 days 10/03 Respiratory status stable We will finish doxycycline and Zosyn today, day #7 Completed remdesivir and Decadron after 4 days Having significant pain Patient and family decided to transition to hospice care service Delirium likely multifactorial- Decadron, narcotics, hospital delirium Continues to improve monitor Sinus Bradycardia from Remdesivir? 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 pt has been receiving IV hydration twice last week via heme/onc she has also stopped her lasix 2 weeks ago, but remains on NACL tabs obtain urine osm, urine na, serum osm will place on IV NS 75cc/hr and IV lasix 30mg q8h - reviewed nephrology prior progress notes/consultation for tx 09/28 On Lasix IV Sodium chloride 1 g twice daily Sodium level 131 Nephrology consulted 09/29 Sodium 133 Lasix on hold due to marginal blood pressure On sodium chloride tablet 10/01 Na 135 hold Lasix continue salt tab Cancer related pain pt with chest pain she is following palliative through [facility] has fentanyl patch in place, day 3 but has no further refills, this will be removed palliative has pt on MS contin 15mg big, oxy IR 10mg q4hr prn pain will continue, bowel regimen as needed 10/03 Pain increasing Added IV Dilaudid as needed Palliative care service consulted Hx of PE Eliquis on hold secondary to possible thoracentesis tomorrow Heparin drip deferred as patient is having some hemoptysis and hematochezia -- on Eliquis PAF chronic, stable continue metoprolol -- on Eliquis Severe protein calorie malnutrition 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 Seen resting in bed, no distress Does report persistent generalized pain No shortness of breath, cough, or any other symptoms Review of Systems Review of Systems: all noted and negative except for above Physical Exam Physical Exam: General- oriented x 3, not in distress, speaks in sentences with no effort or accessory muscle use Eyes- anicteric Neck- no JVD Lungs- clear breath sounds bilaterally, no rales/wheezes Heart- normal rate, regular rhythm; no murmurs Abdomen- normal bowel sounds, nondistended, soft, nontender Extremities- no pretibial edema, no calf tenderness Neuro- alert, oriented x 3; no gross focal neurologic deficits Skin- warm & dry Results & Data Results & Data Vital Signs (Past 12 Hours) Vital Signs Temp Pulse Resp BP Pulse Ox O2 Del Method O2 Flow Rate 10/03/23 17:56 36.8 C 68 18 138/68 98 Nasal Cannula 2 10/03/23 17:54 Nasal Cannula 2 all noted and reviewed including below
--- NOTE | 2023-10-03 18:31 | Discharge Summary ---
Discharge Summary Date of Service October 03, 2023 Notes For Next Care Provider Medication Changes From Visit per below Admission HPI Per Admitting Provider Chief Complaint: SOB x 2 weeks. Primary Care Provider: Antonio Loza MD This is a 70-year-old female who has significant past medical history of non- small cell lung cancer of left upper lobe followed by Dr. Bray, hyponatremia, history of bilateral PE, atrial fibrillation anticoagulated with Eliquis, severe protein calorie malnutrition who presents to ED secondary to worsening shortness of breath x 2 weeks. Of significance patient recently hospitalized 08/14/2023 to 08/18/2023 secondary to generalized weakness and confusion. She was noted to have a sodium of 120 at presentation. Urine studies suggestive of SIADH. This was also likely exacerbated by poor intake. She had been receiving normal saline infusion as well as IV furosemide to help correct sodium level. She was seen and evaluated by nephrology and discharged home on oral salt tablets, Lasix and fluid restriction. During hospital stay she was diagnosed with A-fib with RVR. Echocardiogram revealed EF 65 to 70% with mild concentric LVH. She was started on metoprolol succinate 100 mg once daily and seen and evaluated by cardiology. She was already on Eliquis 5 mg twice daily therefore no change in anticoagulation. She was treated with antibiotics for 7-day course due to possible postobstructive pneumonia. She was seen and evaluated by palliative during hospital stay. On the day of discharge she qualified for 2 L of oxygen at night and with activity. Outpatient records also reviewed. Mom is at bedside. Patient's daughter also on phone. Both help elicit history. She has been experiencing worsening shortness of breath over the last 2 to 3 weeks. She also continues to have constant precordial chest wall pain left greater than right that radiates to her back. Pain is made worse with movement. It is improved with rest. She continues to complain of a dry cough. She further complains of lightheadedness, occasional presyncope, overall poor appetite, is drinking fluids, dysuria and diarrhea. She denies any recent fever, chills, sweats, syncope, hemoptysis, nausea, vomiting, abdominal pain, melena or hematochezia. In ED patient continues to be hyponatremic with a sodium of 127, H&H low at 9.0 and 27.7, WC 15.23, platelet 536, urine osmolality 268, albumin 2.7.Chest x-ray concerning for cardiomegaly, emphysema, left basilar consolidation new with an enlarging left pleural effusion. Also noted is a large mass lesion with associated atelectasis in the left upper lobe. Admission Exam Per Admitting Provider Constitutional: Fraile, elderly, F, appears generally weak and chronically ill, vitals as above, NAD, sitting up in bed, pleasant, answers questions appropriately, poor eye contact Head: Normocephalic, Atraumatic Eyes: PERRL, conjunctivae normal, anicteric sclerae ENMT: external ear and nose normal, oropharynx normal, dry membranes Neck: trachea midline, no thyromegaly normal visual inspection Respiratory: normal respiratory effort, lungs clear to auscultation with significantly diminished breath sounds at left lung base, positive Rales, no wheeze or rhonchi. Normal insp/exp effort, no accessory muscle use on 3.5L of O2 Cardiovascular: RRR, no murmur, no edema Vessels: no JVD or carotid bruit Chest: normal inspection of chest Abdomen: normal bowel sounds, soft, nontender, no hepatosplenomegaly Musculoskeletal: no cyanosis or clubbing, AROM x 4 Skin: no rashes, warm and dry normal turgor Neurologic: PERRL, EOMI, accommodation nl, no face palsy, no dysarthria CN's II-XI intact bilaterally and moves all extremities Psychiatric: A+Ox3, dysthymic affect : deferred Principal Dx & Hospital Course #1 = Principal Diagnosis (1) Pleural effusion: (2) Non-small cell cancer of left lung: (3) History of pulmonary embolism: (1) Acute hypoxic respiratory failure: (2) Non-small cell cancer of left lung: (3) Pleural effusion, left: (4) Pneumonia: (5) Severe malnutrition: (6) Atrial fibrillation: Plan per previous attending notes with addendum: This is a 70-year-old female who has significant past medical history of non- small cell lung cancer of left upper lobe followed by Dr. Bray, hyponatremia, history of bilateral PE, atrial fibrillation anticoagulated with Eliquis, severe protein calorie malnutrition who presents to ED secondary to worsening shortness of breath x 2 weeks. Acute hypoxic respiratory failure Non-small cell cancer of left lung Left pleural effusion, concern for malignant effusion Possible left basilar pneumonia Possible sepsis - pt meets SIRS criteria with tachycardia and leukocytosis COVID-19 infection Admit to telemetry Empirically treat with IV Zosyn, doxycycline Obtain MRSA swab Supplemental oxygen as needed, pt most recently discharged on 2L As needed nebulizer, incentive spirometry obtain CT chest given extensive findings on XR Consult pulm to eval for possible thoracentesis last dose of eliquis was 0900 on 09/26, will hold until eval by pulm pt follows with Dr. Bray, currently unsure if wants to continue chemotherapy as she did not tolerate first round well consider inpt palliative consult 09/28 Remains on 2 L of oxygen Status post thoracentesis: 650 cc of fluid Cultures pending Currently on Lasix for hyponatremia Also on Zosyn and doxycycline Also on Decadron 6 mg plus remdesivir Labs okay 09/29 Off oxygen supplement Pleural fluid culture: Negative so far Cytology: Pending Continue with IV Zosyn, doxycycline Continue remdesivir day number 3 out of 5, Decadron Monitor closely 10/01 repeat CXR: stable discussed with Dr. Hernandez continue Zosyn, Doxycycline hold Remdesivir (cause of bradycardia?), discontinue Decadron (contributing to confusion?) monitor 10/02 Respiratory status stable Continue Zosyn, doxycycline Remdesivir and Decadron discontinued completed 4 days 12 Respiratory status stable We will finish doxycycline and Zosyn today, day #7 Completed remdesivir and Decadron after 4 days Having significant pain Patient and family decided to transition to hospice care service Delirium likely multifactorial- Decadron, narcotics, hospital delirium Continues to improve monitor Sinus Bradycardia from Remdesivir? 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 pt has been receiving IV hydration twice last week via heme/onc she has also stopped her lasix 2 weeks ago, but remains on NACL tabs obtain urine osm, urine na, serum osm will place on IV NS 75cc/hr and IV lasix 30mg q8h - reviewed nephrology prior progress notes/consultation for tx 09/28 On Lasix IV Sodium chloride 1 g twice daily Sodium level 131 Nephrology consulted 09/29 Sodium 133 Lasix on hold due to marginal blood pressure On sodium chloride tablet 10/01 Na 135 hold Lasix continue salt tab Cancer related pain pt with chest pain she is following palliative through [facility] has fentanyl patch in place, day 3 but has no further refills, this will be removed palliative has pt on MS contin 15mg big, oxy IR 10mg q4hr prn pain will continue, bowel regimen as needed 10/03 Pain increasing Added IV Dilaudid as needed Palliative care service consulted Hx of PE Eliquis on hold secondary to possible thoracentesis tomorrow Heparin drip deferred as patient is having some hemoptysis and hematochezia -- on Eliquis PAF chronic, stable continue metoprolol -- on Eliquis Severe protein calorie malnutrition 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 DVT ppx: Eliquis DNR/DNI PCP: Denia Dispo: PT and OT evaluation lives with daughter at home Discharge Exam General- oriented x 3, not in distress, speaks in sentences with no effort or accessory muscle use Eyes- anicteric Neck- no JVD Lungs- clear breath sounds bilaterally, no rales/wheezes Heart- normal rate, regular rhythm; no murmurs Abdomen- normal bowel sounds, nondistended, soft, nontender Extremities- no pretibial edema, no calf tenderness Neuro- alert, oriented x 3; no gross focal neurologic deficits Skin- warm & dry Updated Medication List Medication Instructions Recorded Confirmed Type apixaban 5 mg tablet (Eliquis) 5 mg PO BID 06/28/23 09/26/23 History lidocaine 5 % topical patch 1 patch transdermal HS PRN Pain 08/14/23 09/26/23 History morphine 15 mg tablet,extended 15 mg PO BID 08/14/23 09/26/23 History release ondansetron HCl 8 mg tablet 8 mg PO Q8H PRN n/v 08/14/23 09/26/23 History prochlorperazine maleate 10 mg 10 mg PO Q6H PRN n/v 08/14/23 09/26/23 History tablet sennosides 8.6 mg tablet (Senokot) 8.6 mg PO QAM PRN const 08/14/23 09/26/23 History furosemide 20 mg tablet (Lasix) 20 mg PO BID #60 tabs 08/18/23 09/26/23 Rx magnesium oxide 400 mg (241.3 mg 400 mg PO BID #60 tabs 08/18/23 09/26/23 Rx magnesium) tablet metoprolol succinate 50 mg 100 mg (2 x 50 mg) PO QAM #60 tabs 08/18/23 09/26/23 Rx tablet,extended release 24 hr sodium chloride 1,000 mg soluble 1,000 mg PO BID #60 tabs 08/18/23 09/26/23 Rx tablet oxycodone 5 mg tablet 10 mg PO Q4H PRN pain 09/26/23 09/26/23 History Total Time Total Time Spent Total Time Spent (In Minutes): >30 minutes
--- NOTE | 2023-10-03 18:36 | History & Physical Report ---
Date of Service October 03, 2023 Assessment & Plan (1) Pleural effusion: (2) Non-small cell cancer of left lung: (3) History of pulmonary embolism: Plan: (1) Acute hypoxic respiratory failure: (2) Non-small cell cancer of left lung: (3) Pleural effusion, left: (4) Pneumonia: (5) Severe malnutrition: (6) Atrial fibrillation: Plan per previous attending notes with addendum: This is a 70-year-old female who has significant past medical history of non- small cell lung cancer of left upper lobe followed by Dr. Bray, hyponatremia, history of bilateral PE, atrial fibrillation anticoagulated with Eliquis, severe protein calorie malnutrition who presents to ED secondary to worsening shortness of breath x 2 weeks. Acute hypoxic respiratory failure Non-small cell cancer of left lung Left pleural effusion, concern for malignant effusion Possible left basilar pneumonia Possible sepsis - pt meets SIRS criteria with tachycardia and leukocytosis COVID-19 infection Status post thoracentesis: 650 cc of fluid Patient was admitted, underwent left-sided thoracentesis draining 650 cc of fluid. She was also treated with IV remdesivir and Decadron but was discontinued after 4 days due to bradycardia and confusion. Patient also received IV Zosyn plus doxycycline which she completed the course for. During the course of admission, patient's respiratory status improved, but did require 2 L of O2 supplement. She experienced progressive generalized pain, not relieved by her usual MS Contin and as needed oxycodone. IV Dilaudid as needed given. Palliative care consulted Patient and family eventually decided to transition to hospice care services. Delirium likely multifactorial- Decadron, narcotics, hospital delirium Continues to improve monitor Sinus Bradycardia from Remdesivir? 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 pt has been receiving IV hydration twice last week via heme/onc she has also stopped her lasix 2 weeks ago, but remains on NACL tabs obtain urine osm, urine na, serum osm given Lasix IV and NSS improved now 135 Sodium chloride 1 g twice daily Cancer related pain pt with chest pain [facility] has fentanyl patch in place, day 3 but has no further refills, this will be removed palliative has pt on MS contin 15mg big, oxy IR 10mg q4hr prn pain will continue, bowel regimen as needed 12/5 Pain increasing Added IV Dilaudid as needed Palliative care service consulted, transitioned to Hospice care service MS Contin increased to 45 mg p.o. twice daily Hx of PE Eliquis on hold secondary to possible thoracentesis tomorrow Heparin drip deferred as patient is having some hemoptysis and hematochezia -- on Eliquis PAF chronic, stable continue metoprolol -- on Eliquis Severe protein calorie malnutrition isotope technologist consulted DVT ppx: Yazminquhermilo DNR/DNI PCP: Denia Dispo: pending transitioned to hospice service Admission and Anticipated Discharge Date Admission Date: October 03, 2023 History of Present Illness Primary Care Provider: Antonio Loza MD 78-year-old female with history of lung cancer, admitted for pleural effusion, pneumonia, COVID-19 infection. Patient was admitted, underwent left-sided thoracentesis draining 650 cc of fluid. She was also treated with IV remdesivir and Decadron but was discontinued after 4 days due to bradycardia and confusion. Patient also received IV Zosyn plus doxycycline which she completed the course for. During the course of admission, patient's respiratory status improved, but did require 2 L of O2 supplement. She experienced progressive generalized pain, not relieved by her usual MS Contin and as needed oxycodone. IV Dilaudid as needed given. Palliative care consulted Patient and family eventually decided to transition to hospice care services. Allergies Allergy/AdvReac Type Severity Reaction Status Date / Time No Known Allergies Allergy Verified 06/28/23 16:24 Home Medications Medication Instructions Recorded Confirmed Type apixaban 5 mg tablet (Eliquis) 5 mg PO BID 06/28/23 09/26/23 History lidocaine 5 % topical patch 1 patch transdermal HS PRN Pain 08/14/23 09/26/23 History morphine 15 mg tablet,extended 15 mg PO BID 08/14/23 09/26/23 History release ondansetron HCl 8 mg tablet 8 mg PO Q8H PRN n/v 08/14/23 09/26/23 History prochlorperazine maleate 10 mg 10 mg PO Q6H PRN n/v 08/14/23 09/26/23 History tablet sennosides 8.6 mg tablet (Senokot) 8.6 mg PO QAM PRN const 08/14/23 09/26/23 History furosemide 20 mg tablet (Lasix) 20 mg PO BID #60 tabs 08/18/23 09/26/23 Rx magnesium oxide 400 mg (241.3 mg 400 mg PO BID #60 tabs 08/18/23 09/26/23 Rx magnesium) tablet metoprolol succinate 50 mg 100 mg (2 x 50 mg) PO QAM #60 tabs 08/18/23 09/26/23 Rx tablet,extended release 24 hr sodium chloride 1,000 mg soluble 1,000 mg PO BID #60 tabs 08/18/23 09/26/23 Rx tablet oxycodone 5 mg tablet 10 mg PO Q4H PRN pain 09/26/23 09/26/23 History Past Med/Surg History Medical History (Updated 10/02/23 @ 14:32 by Akanksha Lozano DNP) SIADH (syndrome of inappropriate ADH production) History of pulmonary embolism Non-small cell cancer of left lung Surgical History History of parotidectomy History of hip surgery Family History Other Breast cancer Social History Smoking Status: Former smoker Tobacco Type: Cigarettes Second Hand Exposure: No; Do You Dip or Chew Tobacco: No; Hx Alcohol Use: No Hx Substance Use: No Preferred Language: Tongan Communication Ability: Impaired [place]aw Operator Required: No Beliefs That Will Affect Care: None Current Living Situation: Family Current Living Situation Comment: daughter Feels Safe at Home: Yes Assistive Devices: Glasses, Oxygen - Continuous and Walker Review of Systems Review of Systems: all noted and negative except for above Physical Exam Physical Exam: General- oriented x 2, not in distress, speaks in sentences with no effort or accessory muscle use Appears weak Underweight Eyes- anicteric Neck- no JVD Lungs- clear breath sounds bilaterally, no rales/wheezes Heart- normal rate, regular rhythm; no murmurs Abdomen- normal bowel sounds, nondistended, soft, nontender Extremities- no pretibial edema, no calf tenderness Neuro- alert, oriented x 3; no gross focal neurologic deficits Skin- warm & dry Results & Data Results & Data Vital Signs (Past 12 Hours) Vital Signs Temp Pulse Resp BP Pulse Ox O2 Del Method O2 Flow Rate 10/03/23 17:56 36.8 C 68 18 138/68 98 Nasal Cannula 2 10/03/23 17:54 Nasal Cannula 2 all noted and reviewed including below Code Status & VTE Plan VTE Prophylaxis Plan VTE Prophylaxis will be ordered: Yes
[2023-10-03] MEDS: SODIUM CHLORIDE 1 GM TABLET PO SCH (20:23)
[2023-10-03] MEDS: dexAMETHasone 4 MG TAB PO SCH (20:23)
[2023-10-03] MEDS: APIXABAN 5 MG TABLET PO SCH (20:23)
[2023-10-03] MEDS: MoRPHine SULFATE CR 15 MG TABCR PO SCH (20:23)
[2023-10-03] MEDS: HYDROmorphone INJ 0.5 MG/0.5 ML SYR IV PRN (22:19)
[2023-10-04] MEDS: HYDROmorphone INJ 0.5 MG/0.5 ML SYR IV PRN ×4 (06:13→19:33)
--- OUTSIDE RECORDS SUMMARY | 2023-10-04 07:34 | External Medical Summary | Summary of Care ---
Author Name Unknown Organization [facility] Address [address] [place] [address] Phone [phone] Care Team Providers Care Coal Wheeler Name Role Phone Antonio Loza MD Primary Care Provider [phone] Reason for Visit * Reason Onset Date Comments Advice 10/03/2023 Encounter Details Date Type Department Care Team (Late st Contact Info) Description 10/03/2023 Telephone Access Center, [place] [address] [facility] *DO NOT REMOVE THIS DEPARTMENT* [place] [address] Services, Scheduling [address] [place] [address] Advice Allergies No known active allergiesdocumented as of this encounter (statuses as of 10/03/2023) Medications Medication Sig Dispensed Refills Start Date [...] as of this encounter (statuses as of 10/03/2023) Active Problems Problem Noted Date Diagnosed Date [...] as of this encounter (statuses as of 10/03/2023) Resolved Problems Problem Noted Date Diagnosed Date Resolved Date Encounter for examination fo r normal comparison and control in clinical research program 11/21/2017 06/01/2020 Overview: DO NOT DELETE [facility] DETECT Study: Project # [id number], Pvc Monitor: Khadar Dodd, PhD. SUMMARY: Goal: Establish test [...] contact study staff at ; after hours Pvc Monitor via the [facility] hospital scrubber operator . Please contact study team before resolving/deleting from patients problem list. Study phone number: [phone]. Diagnosis changed due to Research Module. Go to Snapshot for study details. Encounter for examination fo r normal comparison and control in clinical research program 11/21/2017 06/30/2022 Overview: DO NOT DELETE - [facility] DETECT Study: Project # [id number], Pvc Monitor: Mykel Gill, MS, MPH. SUMMARY: Goal: Establish [...] contact study staff at ; after hours Pvc Monitor via the [facility] hospital scrubber operator . - Please contact study team before resolving/deleting from patients problem list. Study phone number: [phone]. Diagnosis changed due to Research Module. Go to Snapshot for study details. documented as of this encounter (statuses as of 10/03/2023) Immunizations Name Administration Dates Next Due Covid-19 [...] Telephone Encounter - Tana Cai LPN - 10/03/2023 11:57 AM EST Called and spoke with daughter She is asking us to coordinate hospice Informed daughter that since she is currently inpatient at [facility] they will be coordinating the hospice referral for her Daughter inquire who she needed to talk to Advised her if she is not going to see patient today, to call [facility] and ask to speak with the senior case manager/social worker assistant assigned to her and they would be able to assist her * Telephone Encounter - Jessica Ross OSA - 10/03/2023 11:50 AM EST Pt's daughter calling in stating patient is requesting they put her on hospice. Pt's daughter wouldlike some help with this if possible. Thank you. documented in this encounter Plan of Treatment Upcoming Encounters Date Type Department Care Team (Late st Contact Info) Description 10/10/2023 2:30 PM EST Telemedicine Palliative Medicine, [facility] [address] [facility] [address] [place] [address] Fatimah Hartman CRNP [address] [facility] [place] [address] Health Maintenance Due Date Last Done Comments [...] on File Type Date Recorded Patient Inside Sales Account Manager Expl anation MARLENA 07/27/2023 11:14 AM POL Advance Directives and Living Will 06/24/2022 ADVANCE DIRECTIVE / LIVING WILL Power of Automotive Starter Repairer 06/24/2022 POWER OF A TTORNEY Latest Code Status on File Code Status Date Activated Date Inactivated Comments No Code 03/20/2023 1:42 AM 03/21/2023 5:59 PM This order reflects the patients wishes and were consensually agreed upon. Question Answer Comments Discussion of Advance Directives occurred with: Patient Care Teams Coal Wheeler Relationship Specialty Start Date End Date Antonio Loza MD [address] [place] [id number] PCP - General Family Medicine 07/13/23 documented as of this encounter
--- OUTSIDE RECORDS SUMMARY | 2023-10-04 07:34 | External Medical Summary | Summary of Care ---
Author Name Unknown Organization [facility] Address [address] [place] [address] Phone [phone] Care Team Providers Care Director Of [facility] Name Role Phone Antonio Loza MD Primary Care Provider [phone] Encounter Details Date Type Department Care Team (Late st Contact Info) Description 09/28/2023 Orders Only Hematology/Oncology, [facility] [address] [place], [place] [id number] Hesham Bray MD [address] [place], [place] [phone] Allergies No known active allergiesdocumented as of this encounter (statuses as of 09/28/2023) Medications Medication Sig Dispensed Refills Start Date [...] as of this encounter (statuses as of 09/28/2023) Active Problems Problem Noted Date Diagnosed Date [...] as of this encounter (statuses as of 09/28/2023) Resolved Problems Problem Noted Date Diagnosed Date Resolved Date Encounter for examination fo r normal comparison and control in clinical research program 11/21/2017 06/01/2020 Overview: DO NOT DELETE [facility] Study: Project # [id number], Assembler Cards And Announcements: Khadar Dodd, PhD. SUMMARY: Goal: Establish test [...] contact study staff at ; after hours Assembler Cards And Announcements via the [facility] hospital spooler operator automatic . Please contact study team before resolving/deleting from patients problem list. Study phone number: [phone]. Diagnosis changed due to Research Module. Go to Snapshot for study details. Encounter for examination fo r normal comparison and control in clinical research program 11/21/2017 06/30/2022 Overview: DO NOT DELETE - [facility] Study: Project # [id number], Assembler Cards And Announcements: Mykel Gill, MS, MPH. SUMMARY: Goal: Establish [...] contact study staff at ; after hours Assembler Cards And Announcements via the [facility] hospital spooler operator automatic . - Please contact study team before resolving/deleting from patients problem list. Study phone number: [phone]. Diagnosis changed due to Research Module. Go to Snapshot for study details. documented as of this encounter (statuses as of 09/28/2023) Immunizations Name Administration Dates Next Due Covid-19 [...] 10/03/2023 9:30 AM EST Office Visit Hematology/Oncology [facility] [address] [place] [address] Fatimah Wallace CRNP [address] [place] [address] 10/10/2023 2:30 PM EST Telemedicine Palliative Medicine, [facility] [address] [facility] [address]th [place] [address] Fatimah Hartman CRNP [address] [place], [place] [phone] Health Maintenance Due Date Last Done Comments [...] Associated Diagnosis Comments CT CHEST W CONTRAST Routine 09/26/2023 documented in this encounter Results * CT CHEST W CONTRAST (09/26/2023) Anatomical Region Laterality Modality Chest, Body, Cardio Other 09/26/2023 History Per Patient RAD CT documented in this encounter Advance Directives Documents on File Type Date Recorded Patient Welder Assembler Expl anation POLST 07/27/2023 11:14 AM POLST Advance Directives and Living Will 06/24/2022 ADVANCE DIRECTIVE / LIVING WILL Power of Marketing Operations Associate 06/24/2022 POWER OF A TTORNEY Latest Code Status on File Code Status Date Activated Date Inactivated Comments No Code 03/20/2023 1:42 AM 03/21/2023 5:59 PM This order reflects the patients wishes and were consensually agreed upon. Question Answer Comments Discussion of Advance Directives occurred with: Patient Care Teams Director Of [facility] Relationship Specialty Start Date End Date Antonio Loza MD [address] [id number] PCP - General Family Medicine 07/13/23 documented as of this encounter
[2023-10-04] MEDS: MoRPHine SULFATE CR 15 MG TABCR PO SCH ×2 (08:44→21:40)
[2023-10-04] MEDS: dexAMETHasone 4 MG TAB PO SCH (08:45)
[2023-10-04] MEDS: APIXABAN 5 MG TABLET PO SCH ×2 (08:45→21:39)
[2023-10-04] MEDS: SODIUM CHLORIDE 1 GM TABLET PO SCH ×2 (08:45→21:39)
[2023-10-04] MEDS: SACCHAROMYCES BOULARDII 250 MG CAP PO SCH (08:45)
[2023-10-04] MEDS: oxyCODONE HCL IR 5 MG TAB (IMMEDIATE RELEASE) PO PRN ×2 (12:33→18:20)
[2023-10-04] MEDS ORDERED: LORazepam 0.5 MG TAB PO PRN (12:42)
[2023-10-04] MEDS ORDERED: ONDANSETRON 4 MG OD TAB SL PRN (12:42)
[2023-10-04] MEDS ORDERED: ONDANSETRON INJ 2 MG/ML 2 ML VIAL IV PRN (12:42)
[2023-10-04] MEDS ORDERED: LORazepam 0.5 MG in SYRINGE 0.25 ML IV PRN (12:42)
--- NOTE | 2023-10-04 16:04 | Hospitalist Progress Note ---
Date of Service October 04, 2023 Assessment & Plan (1) Pleural effusion: (2) Non-small cell cancer of left lung: (3) History of pulmonary embolism: Plan: (1) Acute hypoxic respiratory failure: (2) Non-small cell cancer of left lung: (3) Pleural effusion, left: (4) Pneumonia: (5) Severe malnutrition: (6) Atrial fibrillation: Plan This is a 70-year-old female who has significant past medical history of non- small cell lung cancer of left upper lobe followed by Dr. Bray, hyponatremia, history of bilateral PE, atrial fibrillation anticoagulated with Eliquis, severe protein calorie malnutrition who presents to ED secondary to worsening shortness of breath x 2 weeks. Patient was admitted to medical floor. She underwent left-sided thoracentesis. She was also treated with IV remdesivir and Decadron for COVID-19 infection Palliative care was consulted. Patient was then admitted as l inpatient hospice Acute hypoxic respiratory failure Metastatic non-small cell cancer of left lung Left pleural effusion, concern for malignant effusion Hospice care Status post thoracentesis: 650 cc of fluid Patient was admitted, underwent left-sided thoracentesis draining 650 cc of fluid. She was also treated with IV remdesivir and Decadron but was discontinued after 4 days due to bradycardia and confusion. Patient also received IV Zosyn plus doxycycline which she completed the course for. During the course of admission, patient's respiratory status improved, but did require 2 L of O2 supplement. She experienced progressive generalized pain, not relieved by her usual MS Contin and as needed oxycodone. IV Dilaudid as needed given. Palliative care on board Patient and family eventually decided to transition to hospice care services. Patient currently admitted for general inpatient hospice. Delirium likely multifactorial- Decadron, narcotics, hospital delirium Continues to improve monitor Sinus Bradycardia from Remdesivir? held hold Metoprolol Heart rate improving Cancer related pain pt with chest pain [facility], day 3 but has no further refills, this will be removed MS Contin increased to 45 mg p.o. twice daily Please note the above document was generated using voice recognition software. It may contain grammatical, syntax or spelling errors. Any formal questions or concerns about the content, text or information contained within the body of this dictation should be directly addressed to the provider for clarification Admission and Anticipated Discharge Date Admission Date: October 03, 2023 Subjective Patient seen and examined at bedside. She is lying in the bed; denies any pain. She reports that urinary catheter will help for with the urination. Morse catheter ordered for comfort Review of Systems Review of Systems: All systems reviewed & are unremarkable except as noted in Subjective Physical Exam Physical Exam: General- oriented x 2, not in distress, speaks in sentences with no effort or accessory muscle use Appears weak Underweight Eyes- anicteric Neck- no JVD Lungs- clear breath sounds bilaterally, no rales/wheezes Heart- normal rate, regular rhythm; no murmurs Abdomen- normal bowel sounds, nondistended, soft, nontender Extremities- no pretibial edema, no calf tenderness Neuro- a no gross focal neurologic deficits Skin- warm & dry Results & Data Results & Data Vital Signs (Past 12 Hours) Vital Signs Temp Pulse Pulse Resp BP Pulse Ox O2 Del Method 10/04/23 14:13 Nasal Cannula 10/04/23 08:00 67 10/04/23 07:53 36.7 C 78 16 112/68 99 Room Air O2 Flow Rate 10/04/23 14:13 2 10/04/23 08:00 10/04/23 07:53
[2023-10-05] MEDS: HYDROmorphone INJ 0.5 MG/0.5 ML SYR IV PRN ×5 (04:01→21:32)
[2023-10-05] MEDS: oxyCODONE HCL IR 5 MG TAB (IMMEDIATE RELEASE) PO PRN ×2 (08:45→19:30)
[2023-10-05] MEDS: APIXABAN 5 MG TABLET PO SCH ×2 (08:46→19:31)
[2023-10-05] MEDS: SODIUM CHLORIDE 1 GM TABLET PO SCH ×2 (08:46→19:30)
[2023-10-05] MEDS: SACCHAROMYCES BOULARDII 250 MG CAP PO SCH (08:47)
[2023-10-05] MEDS: dexAMETHasone 4 MG TAB PO SCH (08:47)
[2023-10-05] MEDS: MoRPHine SULFATE CR 15 MG TABCR PO SCH ×2 (08:51→21:32)
[2023-10-05] MEDS ORDERED: HYDROmorphone INJ 0.5 MG/0.5 ML SYR IV STA (10:12)
--- NOTE | 2023-10-05 13:18 | Hospitalist Progress Note ---
Date of Service October 05, 2023 Assessment & Plan (1) Pleural effusion: (2) Non-small cell cancer of left lung: (3) History of pulmonary embolism: Plan: (1) Acute hypoxic respiratory failure: (2) Non-small cell cancer of left lung: (3) Pleural effusion, left: (4) Pneumonia: (5) Severe malnutrition: (6) Atrial fibrillation: Plan This is a 70-year-old female who has significant past medical history of non- small cell lung cancer of left upper lobe followed by Dr. Bray, hyponatremia, history of bilateral PE, atrial fibrillation anticoagulated with Eliquis, severe protein calorie malnutrition who presents to ED secondary to worsening shortness of breath x 2 weeks. Patient was admitted to medical floor. She underwent left-sided thoracentesis. She was also treated with IV remdesivir and Decadron for COVID-19 infection Palliative care was consulted. Patient was then admitted as general inpatient hospice Acute hypoxic respiratory failure Metastatic non-small cell cancer of left lung Left pleural effusion, concern for malignant effusion Hospice care Status post thoracentesis: 650 cc of fluid Patient was admitted, underwent left-sided thoracentesis draining 650 cc of fluid. She was also treated with IV remdesivir and Decadron but was discontinued after 4 days due to bradycardia and confusion. Patient also received IV Zosyn plus doxycycline which she completed the course for. During the course of admission, patient's respiratory status improved, but did require 2 L of O2 supplement. She experienced progressive generalized pain, not relieved by her usual MS Contin and as needed oxycodone. IV Dilaudid as needed given. Palliative care on board Patient and family eventually decided to transition to hospice care services. Patient currently admitted for general inpatient hospice. Delirium likely multifactorial- Decadron, narcotics, hospital delirium Continues to improve monitor Cancer related pain MS Contin increased to 45 mg p.o. twice daily Oxycodone and Dilaudid as needed Please note the above document was generated using voice recognition software. It may contain grammatical, syntax or spelling errors. Any formal questions or concerns about the content, text or information contained within the body of this dictation should be directly addressed to the provider for clarification Admission and Anticipated Discharge Date Admission Date: October 03, 2023 Subjective Patient seen and examined at bedside. She reports that her pain is not well-controlled. She requested for the Dilaudid to be increased. Review of Systems Review of Systems: All systems reviewed & are unremarkable except as noted in Subjective Physical Exam Physical Exam: General- oriented x 3, not in distress, speaks in sentences with no effort or accessory muscle use Appears weak Underweight Eyes- anicteric Neck- no JVD Lungs- clear breath sounds bilaterally, no rales/wheezes Heart- normal rate, regular rhythm; no murmurs Abdomen- normal bowel sounds, nondistended, soft, nontender Extremities- no pretibial edema, no calf tenderness Neuro- a no gross focal neurologic deficits Skin- warm & dry Results & Data Results & Data Vital Signs (Past 12 Hours) Vital Signs O2 Del Method 10/05/23 09:05 Room Air
[2023-10-05] MEDS: ACETAMINOPHEN 325 MG TAB PO PRN ×2 (13:28→19:29)
[2023-10-05] MEDS: ONDANSETRON INJ 2 MG/ML 2 ML VIAL IV PRN (14:37)
[2023-10-06] MEDS: HYDROmorphone INJ 0.5 MG/0.5 ML SYR IV PRN ×4 (00:54→13:57)
[2023-10-06] MEDS: oxyCODONE HCL IR 5 MG TAB (IMMEDIATE RELEASE) PO PRN ×2 (00:54→04:02)
[2023-10-06] MEDS: ACETAMINOPHEN 325 MG TAB PO PRN ×2 (04:03→15:22)
[2023-10-06] MEDS ORDERED: HYDROmorphone INJ 1 MG/ML SYRINGE IV STA (07:17)
[2023-10-06] MEDS: APIXABAN 5 MG TABLET PO SCH (07:25)
[2023-10-06] MEDS: SACCHAROMYCES BOULARDII 250 MG CAP PO SCH (07:25)
[2023-10-06] MEDS: dexAMETHasone 4 MG TAB PO SCH (07:26)
[2023-10-06] MEDS: SODIUM CHLORIDE 1 GM TABLET PO SCH (07:26)
[2023-10-06] MEDS: MoRPHine SULFATE CR 15 MG TABCR PO SCH (08:45)
--- NOTE | 2023-10-06 14:05 | Discharge Summary ---
Date of Service October 06, 2023 Admission HPI Per Admitting Provider 78-year-old female with history of lung cancer, admitted for pleural effusion, pneumonia, COVID-19 infection. Patient was admitted, underwent left-sided thoracentesis draining 650 cc of fluid. She was also treated with IV remdesivir and Decadron but was discontinued after 4 days due to bradycardia and confusion. Patient also received IV Zosyn plus doxycycline which she completed the course for. During the course of admission, patient's respiratory status improved, but did require 2 L of O2 supplement. She experienced progressive generalized pain, not relieved by her usual MS Contin and as needed oxycodone. IV Dilaudid as needed given. Palliative care consulted Patient and family eventually decided to transition to hospice care services. Admission Exam Per Admitting Provider General- oriented x 2, not in distress, speaks in sentences with no effort or accessory muscle use Appears weak Underweight Eyes- anicteric Neck- no JVD Lungs- clear breath sounds bilaterally, no rales/wheezes Heart- normal rate, regular rhythm; no murmurs Abdomen- normal bowel sounds, nondistended, soft, nontender Extremities- no pretibial edema, no calf tenderness Neuro- alert, oriented x 3; no gross focal neurologic deficits Skin- warm & dry Principal Diagnosis Metastatic lung cancer Hospice care Discharge Exam General-appears tired and lethargic Eyes- anicteric Neck- no JVD Lungs- clear breath sounds bilaterally, no rales/wheezes Heart- normal rate, regular rhythm; no murmurs Abdomen- normal bowel sounds, nondistended, soft, nontender Extremities- no pretibial edema, no calf tenderness Neuro- a no gross focal neurologic deficits Skin- warm & dry Discharge Data Allergies Allergy/AdvReac Type Severity Reaction Status Date / Time No Known Allergies Allergy Verified 06/28/23 16:24 Hospital Course (1) Pleural effusion: (2) Non-small cell cancer of left lung: (3) History of pulmonary embolism: (1) Acute hypoxic respiratory failure: (2) Non-small cell cancer of left lung: (3) Pleural effusion, left: (4) Pneumonia: (5) Severe malnutrition: (6) Atrial fibrillation: Plan This is a 70-year-old female who has significant past medical history of non- small cell lung cancer of left upper lobe followed by Dr. rBay, hyponatremia, history of bilateral PE, atrial fibrillation anticoagulated with Eliquis, severe protein calorie malnutrition who presents to ED secondary to worsening shortness of breath x 2 weeks. Patient was admitted to medical floor. She underwent left-sided thoracentesis. She was also treated with IV remdesivir and Decadron for COVID-19 infection Palliative care was consulted. 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 She was also treated with IV remdesivir and Decadron but was discontinued after 4 days due to bradycardia and confusion per COVID-19 infection. Patient also received IV Zosyn plus doxycycline for pneumonia which she completed the course for. During the course of admission, patient's respiratory status improved, but did require 2 L of O2 supplement. She experienced progressive generalized pain, not relieved by her usual MS Contin and as needed oxycodone. Patient was switched over to general inpatient hospice. As per patient's wish; she was discharged to home hospice. PH[employer] pump ordered with Re. Also prescription for morphine and oxycodone sent to the pharmacy. Discussed with patient's daughter over the phone at the day of the discharge. Please note the above document was generated using voice recognition software. It may contain grammatical, syntax or spelling errors. 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 You are prescribed morphine 45 mg to be taken twice daily as well as oxycodone for breakthrough pain. If the PH[employer]GR[employer] SCREW[employer] pump is able to be delivered on time; use the PHOTOGR[employer] SCREW[employer]KER pump. The dose of the medication might need to be titrated based on the need. Pending Studies at Discharge: No Stand-Alone Forms: My [facility] Medications and DC Order Prescriptions: New morphine 15 mg Tablet Extended Release 45 mg PO Q12H Qty: 42 0RF oxycodone 5 mg Tablet 10 mg PO Q4H PRN (Reason: pain) Qty: 30 0RF Continued Eliquis 5 mg tablet 5 mg PO BID ondansetron HCl 8 mg tablet 8 mg PO Q8H PRN (Reason: n/v) prochlorperazine maleate 10 mg tablet 10 mg PO Q6H PRN (Reason: n/v) morphine 15 mg tablet extended release 15 mg PO BID sennosides [Senokot] 8.6 mg tablet 8.6 mg PO QAM PRN (Reason: const) lidocaine 5 % adhesive patch,medicated 1 patch transdermal HS PRN (Reason: Pain) magnesium oxide 400 mg (241.3 mg magnesium) Tablet 400 mg PO BID Qty: 60 0RF metoprolol succinate 50 mg Tablet Extended Release 24 Hr 100 mg PO QAM Qty: 60 0RF sodium chloride 1,000 mg tablet,soluble 1,000 mg PO BID Qty: 60 0RF furosemide [Lasix] 20 mg tablet 20 mg PO BID Qty: 60 0RF Rx Instructions: off 2 weeks oxycodone 5 mg tablet 10 mg PO Q4H PRN (Reason: pain) Rx Instructions: Take every 4 hours for pain as needed. Discharge Orders: Discharge Order (Routine); Ordered 10/06/23 Ordered By: Ian Perkins Admission Data Admit Date/Time: 10/03/23 17:46 Attending Provider: Ian Perkins Admit Provider: Keturah Brasher Primary Care Provider: Antonio Loza Other Providers: Deepak Good; [facility]; [facility]Referral [facility] Other Interventions: Discharge Summary Assessment (RN) Last Done: 10/06/23 13:54
[2023-10-06] MEDS: ONDANSETRON INJ 2 MG/ML 2 ML VIAL IV PRN (15:22)
--- NOTE | 2023-10-18 13:53 | Coding Query ---
CODING QUERY To promote full compliance with coding requirements relating to patient care, provider participation is requested in all cases of city clerk uncertainty. Please assist us with the question(s) below: Coding Question(s): Both Covid and Pneumonia have been documented throughout the chart, please clarify whether: Physician's Response(s): ____Pneumonia due to Covid _X___ PNA not due to covid ____ other please specify? Thank you Toshia Cox Principal Diagnosis: "that condition established after study, to be chiefly responsible for occasioning the admission of the patient to the hospital for care." Co-Existing Principal Diagnosis: "when two or more diagnoses equally meet the criteria for principal diagnosis as determined by the circumstances of admission, diagnostic work up, and/or therapy provided, and the Alphabetic Index, Tabular List, or another coding guideline does not provide sequencing direction, any one of the diagnoses may be sequenced first." "When the physician has documented what appears to be a current diagnosis in the body of the record, but has not included the diagnosis in the final diagnostic statement, the physician should be asked whether the diagnosis should be added." (Source [facility]oding [facility] 2 QTR90. p3-4) STEPHEN
== END 2023-10-06 15:33 | disposition hospice, home (50) | DRG 871 ==
LOC: SUATTDRO 17:46 → 2W 17:46